=== PATIENT | female | born 1975 | race Caucasian/White ===

== ENCOUNTER 2016-12-26 18:06 | Outpatient (CLI) | payer MEDICAID | END 2016-12-26 18:07 | disposition short-term general hospital (02) | LOC: EMS 18:06 | PROVIDERS: ATTEND Surgery | DX: R11.2 Nausea with vomiting, unspecified (principal); R10.10 Upper abdominal pain, unspecified | CPT/HCPCS: A0425; A0427; A0888 ==

== ENCOUNTER 2017-04-16 08:39 | Outpatient (CLI) | payer MEDICAID | END 2017-04-16 08:40 | disposition short-term general hospital (02) | LOC: EMS 08:39 | PROVIDERS: ATTEND Surgery | DX: R10.9 Unspecified abdominal pain (principal); R11.2 Nausea with vomiting, unspecified | CPT/HCPCS: A0425; A0427 ==

== ENCOUNTER 2018-06-25 07:15 | Emergency (ER) | payer MEDICAID, OTHER ==
[2018-06-25] MEDS ORDERED: ONDANSETRON 4 MG/2 ML VIAL IVP STA (08:00)
[2018-06-25] MEDS ORDERED: HYDROmorphone 1 MG/ML CARPUJECT IVP STA (08:00)
[2018-06-25] MEDS ORDERED: LORazepam 2 MG/ML VIAL IVP STA (08:00)
[2018-06-25] MEDS ORDERED: SODIUM CHLORIDE 0.9% 1,000 ML IV ONE ×2 (08:00→11:31)
--- NOTE | 2018-06-25 08:03 | ED Physician Documentation ---
PD HPI NVD - Stated complaint Stated Complaint: NAUSEA/VOMITING - Chief complaint Chief Complaint: Abd Pain - History obtained from History obtained from: Patient - History of Present Illness Timing - onset: How many days ago (4) Timing - duration: Days (4) Timing - details: Gradual onset, Still present Associated symptoms: Abdominal pain, Loss of appetite Contributing factors: Other (history of cyclical vomiting) Improved by: Vomiting Similar symptoms before: Diagnosis (cyclical vomiting) Recently seen: Emergency Dept (at [facility] 3 days ago) - Additonal information Additional information: 42-year-old female with a 20-year history of cyclical vomiting has developed a cyclical vomiting episode beginning about a week ago. She states that she was seen at [facility] 3 days ago despite treatment there she has continued vomiting and abdominal pain. She states that she has been diagnosed with cyclical vomiting and she has been through a number of different treatments throughout the years and is usually at the [facility] of the emergency department. She states that for her what works best is Ativan Dilaudid and Zofran and she has been tried on a lot of different regimens. She has been seen at [facility] by GI specialist with a diagnosis of cyclical vomiting. She does state that she uses cannabis and that she gets in the shower frequently and that the diagnosis of cannabis hyperemesis has been examined she has been off of cannabis for 3 years with worsening of her symptoms. She continues to use cannabis now. Review of Systems Constitutional: reports: Fatigue. denies: Fever, Chills, Myalgias Eyes: denies: Decreased vision Ears: denies: Ear pain Nose: denies: Rhinorrhea / runny nose, Congestion Throat: denies: Sore throat Cardiac: denies: Chest pain / pressure, Palpitations Respiratory: denies: Dyspnea, Cough GI: reports: Abdominal Pain, Nausea, Vomiting : denies: Dysuria, Frequency Skin: denies: Rash Musculoskeletal: denies: Neck pain, Back pain, Extremity pain Neurologic: denies: Generalized weakness, Focal weakness, Numbness PD PAST MEDICAL HISTORY - Past Medical History GI: Other Other Past Medical History: vomiting - Past Surgical History Past Surgical History: Yes General: Cholecystectomy, Appendectomy - Present Medications Home Medications: Ambulatory Orders Medication Instructions Recorded Confirmed Oxycodone HCl/Acetaminophen 1 - 2 each PO Q6H PRN #20 tablet 05/23/14 [Percocet 5-325 mg Tablet] RX: predniSONE [Deltasone] 40 mg PO DAILY 5 Days tablet 05/23/14 diazePAM [Valium] 5 - 10 mg PO TID #15 tablet 05/23/14 - Allergies Allergies/Adverse Reactions: Allergies Allergy/AdvReac Type Severity Reaction Status Date / Time metoclopramide HCl * Allergy Rash Verified 06/25/18 07:34 [From Reglan] - Social History Does the pt smoke?: Yes Smoking Status: Current every day smoker Does the pt have substance abuse?: No Substance Use and Type: Marijuana PD ED PE NORMAL - Vitals Vital signs reviewed: Yes (hypertensive) - General General: Alert and oriented X 3, Well developed/nourished, Other (crying and emotional ) - HEENT HEENT: Atraumatic, PERRL, EOMI - Neck Neck: Supple, no meningeal sign, No bony TTP - Cardiac Cardiac: RRR, No murmur - Respiratory Respiratory: No respiratory distress, Clear bilaterally - Abdomen Abdomen: Soft, Other (mild familia-umbilical tenderness without garding ) - Back Back: No CVA TTP, No spinal TTP - Derm Derm: Normal color, Warm and dry, No rash - Extremities Extremities: No deformity, No edema - Neuro Neuro: Alert and oriented X 3, alternative education teacher 2-12 intact, No motor deficit, No sensory deficit, Normal speech Eye Opening: Spontaneous Motor: Obeys Commands Verbal: Oriented GCS Score: 15 - Psych Psych: Other (mood is frustrated and the affect is sad) Results - Vitals Vitals: Vital Signs - 24 hr 06/25/18 06/25/18 06/25/18 07:30 12:09 12:56 Temperature 37.3 C Heart Rate 75 59 L 59 L Respiratory 16 16 16 Rate Blood Pressure 163/90 H 133/95 H 113/82 H O2 Saturation 100 100 99 Oxygen O2 Source Room air - Labs Labs: Laboratory Tests 06/25/18 06/25/18 06/25/18 08:30 08:30 10:31 WBC 10.8 RBC 4.43 Hgb 14.1 Hct 40.8 MCV 92.1 MCH 31.9 H MCHC 34.6 RDW 12.8 Plt Count 214 MPV 8.4 Neut # (Auto) 8.1 H Lymph # (Auto) 1.8 [place] # (Auto) 0.7 Eos # (Auto) 0.1 Baso # (Auto) 0.1 Absolute Nucleated RBC 0.01 Nucleated RBC % 0.1 Sodium 136 Potassium 3.1 L Chloride 94 L Carbon Dioxide 31 Anion Gap 11.0 BUN 24 H Creatinine 0.9 Estimated GFR (MDRD) 68 L Glucose 115 H Calcium 9.5 Total Bilirubin 1.5 H AST 19 ALT 17 Alkaline Phosphatase 53 Total Protein 8.2 Albumin 4.9 Globulin 3.3 Albumin/Globulin Ratio 1.5 Lipase 33 Urine Color DARK YELLOW Urine Clarity CLEAR Urine pH 5.5 Ur Specific [place] >=1.030 H Urine Protein TRACE Urine Glucose (UA) NEGATIVE Urine Ketones NEGATIVE Urine Occult Blood TRACE-LYSE Urine Nitrite NEGATIVE Urine Bilirubin NEGATIVE Urine Urobilinogen 0.2 (NORMAL) Ur Leukocyte Esterase NEGATIVE Ur Microscopic Review NOT INDICATED Urine Culture Comments NOT INDICATED Urine HCG, Qual NEGATIVE Procedures - IVC sono (time) 0845 Bedside IVC sono: IVC measures (cm) (2.01), IVC collapsed c insp (cm) (complete), Dehydration (minimal est <.5 liter deficit) PD MEDICAL DECISION MAKING - ED course Complexity details: considered differential, d/w patient, d/w family ED course: 42-year-old female with a history of cyclical vomiting has a cycle of vomiting now she was given fluids at [facility] 3 days ago and today we are unable to establish a running IV. Her IVC is interrogated with the bedside ultrasound and her volume appears near normal. She is administered medications IM. This provides some improvement but the patient fails a fluid challenge and more effort is put into the IV start and the patient is administered IV saline, decadron, compazine, toradal and benadryl with improvement in her symptoms. Departure - Departure Disposition: 01 Home, Self Care Clinical Impression: Cyclical vomiting Condition: Stable Instructions: ED Diet Vomiting Diarrhea Follow-Up: Your, doctor [Other] Discharge Date/Time: 06/25/18 12:59
[2018-06-25 08:39] LABS: BASOPHILS # (AUTO) 0.1 10^3/uL (0.0-0.1); BASOPHILS % (AUTO) 0.8 %; EOSINOPHILS # (AUTO) 0.1 10^3/uL (0.0-0.7); EOSINOPHILS % (AUTO) 0.9 %; HGB - HEMOGLOBIN 14.1 g/dL (12.0-16.0); LYMPHOCYTES # (AUTO) 1.8 10^3/uL (1.5-3.5); LYMPHOCYTES % (AUTO) 16.6 %; MEAN CORPUSCULAR HEMOGLOBIN 31.9 pg (27.0-31.0); MEAN CORPUSCULAR HGB CONC 34.6 g/dL (32.0-36.0); MEAN CORPUSCULAR VOLUME 92.1 fL (81.0-99.0); MEAN PLATELET VOLUME 8.4 fL (7.9-10.8); MONOCYTES # (AUTO) 0.7 10^3/uL (0.0-1.0); MONOCYTES % (AUTO) 6.7 %; NEUTROPHILS # (AUTO) 8.1 10^3/uL (1.5-6.6); PLT - PLATELET COUNT 214 10^3/uL (130-450); RED BLOOD COUNT 4.43 10^6/uL (4.20-5.40); RED CELL DISTRIBUTION WIDTH 12.8 % (12.0-15.0); WHITE BLOOD COUNT 10.8 x10^3/uL (4.8-10.8)
[2018-06-25 08:49] LABS: ALBUMIN 4.9 g/dL (3.2-5.5); ALBUMIN/GLOBULIN RATIO 1.5 (1.0-2.2); BILIRUBIN,TOTAL 1.5 mg/dL (0.2-1.0); CALCIUM 9.5 mg/dL (8.5-10.3); CREATININE 0.9 mg/dL (0.4-1.0); TOTAL PROTEIN 8.2 g/dL (6.7-8.2)
[2018-06-25] MEDS ORDERED: HYDROmorphone 1 MG/ML CARPUJECT IM STA (08:49)
[2018-06-25] MEDS ORDERED: LORazepam 2 MG/ML VIAL IM STA (08:49)
[2018-06-25] MEDS ORDERED: ONDANSETRON ODT 4 MG TABLET TL STA (08:49)
[2018-06-25 10:42] LABS: BILIRUBIN,URINE NEGATIVE (NEGATIVE); GLUCOSE, URINE (UA) NEGATIVE (NEGATIVE); KETONES,URINE (UA) NEGATIVE (NEGATIVE); LEUKOCYTE ESTERASE, URINE NEGATIVE (NEGATIVE); NITRITE,URINE NEGATIVE (NEGATIVE); OCCULT BLOOD,URINE TRACE-LYSE (NEGATIVE); PH,URINE 5.5 PH (5.0-7.5); PROTEIN,URINE TRACE mg/dL (NEGATIVE); UROBILINOGEN,URINE 0.2 (NORMAL) E.U./dL (NORMAL)
[2018-06-25 10:45] LABS: CLARITY,URINE CLEAR (CLEAR)
[2018-06-25 10:46] LABS: HCG UR QUAL NEGATIVE
[2018-06-25] MEDS ORDERED: PROCHLORPERAZINE 10 MG/2 ML VIAL IVP STA (11:31)
[2018-06-25] MEDS ORDERED: DEXAMETHASONE 10 MG/ML VIAL IVP STA (11:31)
[2018-06-25] MEDS ORDERED: diphenhydrAMINE INJ 50 MG/ML VIAL IVP STA (11:31)
[2018-06-25] MEDS ORDERED: KETOROLAC 60 MG/2 ML VIAL IVP STA (11:31)
[2018-06-25 12:57] VITALS: BP 113/82
== END 2018-06-25 12:59 | disposition home or self-care (01) ==
LOC: ED 07:15
DX: G43.A0 Cyclical vomiting, in migraine, not intractable (principal); F17.200 Nicotine dependence, unspecified, uncomplicated; Z72.89 Other problems related to lifestyle
CPT/HCPCS: 36415; 80053; 81003; 81025; 83690; 85025; 96372; 96374; 99283; J1200; J2060; Q0162; 81001; 87086

== ENCOUNTER 2018-09-16 13:43 | Emergency (ER) | payer OTHER ==
[2018-09-16] MEDS ORDERED: LORazepam 2 MG/ML VIAL IVP STA (15:35)
[2018-09-16] MEDS ORDERED: SODIUM CHLORIDE 0.9% 1,000 ML IV ONE (15:35)
[2018-09-16] MEDS ORDERED: ONDANSETRON 4 MG/2 ML VIAL IVP STA (15:35)
[2018-09-16] MEDS ORDERED: HYDROmorphone 1 MG/ML CARPUJECT IVP STA (15:35)
--- NOTE | 2018-09-16 15:37 | ED Physician Documentation ---
PD HPI NVD - Stated complaint Stated Complaint: ABD PX/VOMITING - Chief complaint Chief Complaint: Abd Pain - History obtained from History obtained from: Patient, Family - History of Present Illness Timing - onset: How many days ago (5) Timing - duration: Days Timing - details: Gradual onset, Still present, Waxing and waning Associated symptoms: Abdominal pain, Loss of appetite Improved by: Laying still, Vomiting Worsened by: Moving, Breathing, Position, Palpation Similar symptoms before: Diagnosis (cyclical vomiting syndrome) Recently seen: Clinic - Additonal information Additional information: 33-year-old female with a history of cyclical vomiting has developed symptoms again over the past 5 days with vomiting abdominal pain she has had waxing and waning of her symptoms over the last 5 days and she was asked by her primary care doctor to come into the emergency department today for persistence of her symptoms. Review of Systems Constitutional: denies: Fever Eyes: denies: Decreased vision Ears: denies: Ear pain Nose: reports: Congestion. denies: Rhinorrhea / runny nose Throat: denies: Sore throat Cardiac: reports: Chest pain / pressure. denies: Palpitations Respiratory: denies: Dyspnea, Cough GI: reports: Abdominal Pain, Nausea, Vomiting : denies: Dysuria, Frequency Skin: denies: Rash Musculoskeletal: denies: Neck pain, Back pain, Extremity pain Neurologic: reports: Headache. 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 HEENT: None Psych: None Musculoskeletal: None Derm: None - Past Surgical History Past Surgical History: Yes General: Cholecystectomy, Appendectomy - Present Medications Home Medications: Ambulatory Orders Medication Instructions Recorded Confirmed Ondansetron Odt [Zofran Odt] 09/16/18 Promethazine Supp [Phenergan Supp] 09/16/18 Promethazine Supp [Phenergan Supp] 25 mg MO Q6HR PRN #10 supp 09/16/18 - Allergies Allergies/Adverse Reactions: Allergies Allergy/AdvReac Type Severity Reaction Status Date / Time metoclopramide HCl * Allergy Rash Verified 09/16/18 13:58 [From Reglan] - Social History Does the pt smoke?: Yes Smoking Status: Current every day smoker Does the pt drink ETOH?: Yes ETOH Use: Wine, Beer, Liquor Does the pt have substance abuse?: No Substance Use and Type: Marijuana - Immunizations Immunizations are current?: Yes - POLST Patient has POLST: No PD ED PE NORMAL - Vitals Vital signs reviewed: Yes (hypertensive ) - General General: Alert and oriented X 3, Well developed/nourished, Other (crying in pain clutching her head. ) - HEENT HEENT: Atraumatic, PERRL, EOMI, Other (dry mucous membranes ) - Neck Neck: Supple, no meningeal sign, No bony TTP - Cardiac Cardiac: RRR, No murmur - Respiratory Respiratory: No respiratory distress, Clear bilaterally - Abdomen Abdomen: Soft, Other (mild epigstric tenderness without garding) - Back Back: No CVA TTP, No spinal TTP - Derm Derm: Normal color, Warm and dry, No rash - Extremities Extremities: No deformity, No edema - Neuro Neuro: Alert and oriented X 3, vehicle check in clerk 2-12 intact, No motor deficit, No sensory deficit, Normal speech Eye Opening: Spontaneous Motor: Obeys Commands Verbal: Oriented GCS Score: 15 - Psych Psych: Other (mood is defeated and affect is sad) Results - Vitals Vitals: Vital Signs - 24 hr 09/16/18 09/16/18 13:52 17:11 Temperature 36.6 C 36.4 C L Heart Rate 82 73 Respiratory 18 20 Rate Blood Pressure 120/87 H 124/90 H O2 Saturation 100 95 Oxygen O2 Source Room air - Labs Labs: Laboratory Tests 09/16/18 09/16/18 15:49 15:49 WBC 8.1 RBC 4.93 Hgb 15.7 Hct 47.5 H MCV 96.3 MCH 31.8 H MCHC 33.0 RDW 12.9 Plt Count 241 MPV 8.3 Neut # (Auto) 5.6 Lymph # (Auto) 1.8 [place] # (Auto) 0.5 Eos # (Auto) 0.1 Baso # (Auto) 0.0 Absolute Nucleated RBC 0.00 Nucleated RBC % 0.1 Sodium 135 Potassium 3.2 L Chloride 92 L Carbon Dioxide 30 Anion Gap 13.0 BUN 20 Creatinine 0.7 Estimated GFR (MDRD) 90 Glucose 109 H Calcium 9.7 Total Bilirubin 1.6 H AST 17 ALT 13 Alkaline Phosphatase 51 Total Protein 8.5 H Albumin 4.9 Globulin 3.6 Albumin/Globulin Ratio 1.4 Lipase 33 PD MEDICAL DECISION MAKING - ED course Complexity details: considered differential, d/w patient ED course: 43-year-old female with a history of cyclic vomiting is administered saline Dilaudid and Ativan and Zofran. She is administered potassium bicarb for a pot assium of 3.2. She has improvement and is discharged to home. Departure - Departure Disposition: Home, Self Care Clinical Impression: Cyclical vomiting Qualifiers: Vomiting Intractability: non-intractable Nausea presence: with nausea Qualified Code(s): G43.A0 - Cyclical vomiting, not intractable Instructions: ED Nausea Vomiting Follow-Up: Sergo Martino MD [Primary Care Provider] - Prescriptions: Promethazine Supp [Phenergan Supp] 25 mg MO Q6HR PRN #10 supp PRN Reason: Nausea / Vomiting
[2018-09-16 15:54] LABS: BASOPHILS % (AUTO) 0.4 %; EOSINOPHILS # (AUTO) 0.1 10^3/uL (0.0-0.7); EOSINOPHILS % (AUTO) 1.1 %; HGB - HEMOGLOBIN 15.7 g/dL (12.0-16.0); LYMPHOCYTES # (AUTO) 1.8 10^3/uL (1.5-3.5); LYMPHOCYTES % (AUTO) 22.7 %; MEAN CORPUSCULAR HEMOGLOBIN 31.8 pg (27.0-31.0); MEAN CORPUSCULAR VOLUME 96.3 fL (81.0-99.0); MEAN PLATELET VOLUME 8.3 fL (7.9-10.8); MONOCYTES # (AUTO) 0.5 10^3/uL (0.0-1.0); MONOCYTES % (AUTO) 6.7 %; NEUTROPHILS # (AUTO) 5.6 10^3/uL (1.5-6.6); NEUTROPHILS % (AUTO) 69.1 %; PLT - PLATELET COUNT 241 10^3/uL (130-450); RED BLOOD COUNT 4.93 10^6/uL (4.20-5.40); RED CELL DISTRIBUTION WIDTH 12.9 % (12.0-15.0); WHITE BLOOD COUNT 8.1 x10^3/uL (4.8-10.8)
[2018-09-16 16:06] LABS: ALBUMIN 4.9 g/dL (3.2-5.5); ALBUMIN/GLOBULIN RATIO 1.4 (1.0-2.2); BILIRUBIN,TOTAL 1.6 mg/dL (0.2-1.0); CALCIUM 9.7 mg/dL (8.5-10.3); CREATININE 0.7 mg/dL (0.4-1.0); TOTAL PROTEIN 8.5 g/dL (6.7-8.2)
[2018-09-16] MEDS ORDERED: POTASSIUM BICARB 25 MEQ TABLET PO STA (17:06)
[2018-09-16 19:11] VITALS: BP 112/94
== END 2018-09-16 19:23 | disposition home or self-care (01) ==
LOC: ED 13:43
DX: G43.A0 Cyclical vomiting, in migraine, not intractable (principal)
CPT/HCPCS: 36415; 80053; 83690; 85025; 96361; 96374; 99283; A9270; J1170; J2060

== ENCOUNTER 2019-03-04 21:51 | Emergency (ER) | payer OTHER ==
[2019-03-04] MEDS ORDERED: PROCHLORPERAZINE 10 MG/2 ML VIAL IVP STA (22:12)
[2019-03-04] MEDS ORDERED: DEXAMETHASONE 10 MG/ML VIAL IVP STA (22:12)
[2019-03-04] MEDS ORDERED: SODIUM CHLORIDE 0.9% 1,000 ML IV ONE ×2 (22:12→23:41)
[2019-03-04] MEDS ORDERED: KETOROLAC 30 MG/ML VIAL IVP STA (22:12)
[2019-03-04] MEDS ORDERED: diphenhydrAMINE INJ 50 MG/ML VIAL IVP STA (22:12)
--- NOTE | 2019-03-04 22:14 | ED Physician Documentation ---
PD HPI NVD - Stated complaint Stated Complaint: VOMITING - Chief complaint Chief Complaint: Abd Pain - History obtained from History obtained from: Patient, Family - History of Present Illness Timing - onset: Today Timing - duration: Hours Timing - details: Abrupt onset, Still present Associated symptoms: Abdominal pain, Loss of appetite Improved by: Meds Similar symptoms before: Diagnosis (cyclical vomiting) Recently seen: Clinic - Additonal information Additional information: 43-year-old female with a history of cyclical vomiting has usually been able to arrest her episodes with Imitrex. Today she was unable to arrest the episode as she did not get to it in time. She has been trying some Phenergan suppositories and this has not helped. She has been having issues all day long and she has come to the emergency department now for treatment. 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 HEENT: None Psych: None Musculoskeletal: None Derm: None - Past Surgical History Past Surgical History: Yes General: Cholecystectomy, Appendectomy - Present Medications Home Medications: Ambulatory Orders Medication Instructions Recorded Confirmed Ondansetron Odt [Zofran Odt] 09/16/18 Ondansetron Odt [Zofran] 4 mg TL Q6H PRN #10 tablet 09/16/18 Promethazine Supp [Phenergan Supp] 09/16/18 Promethazine Supp [Phenergan Supp] 25 mg HI Q6HR PRN #10 supp 09/16/18 - Allergies Allergies/Adverse Reactions: Allergies Allergy/AdvReac Type Severity Reaction Status Date / Time metoclopramide HCl * Allergy Rash Verified 03/04/19 22:08 [From Reglan] - Social History Does the pt smoke?: Yes Smoking Status: Current every day smoker Does the pt drink ETOH?: Yes Does the pt have substance abuse?: No - Immunizations Immunizations are current?: Yes - POLST Patient has POLST: No PD ED PE NORMAL - Vitals Vital signs reviewed: Yes (diastolic hypertension ) - General General: Alert and oriented X 3, Other (Thin female writhing in pain moaning and crying wretching loudly ) - HEENT HEENT: Atraumatic, PERRL, EOMI - Neck Neck: Supple, no meningeal sign, No bony TTP - Cardiac Cardiac: RRR, No murmur - Respiratory Respiratory: No respiratory distress, Clear bilaterally - Abdomen Abdomen: Soft, Other (mild epigastric tenderness without gaurding ) - Back Back: No CVA TTP, No spinal TTP - Derm Derm: Normal color, Warm and dry, No rash - Extremities Extremities: No deformity, No edema - Neuro Neuro: Alert and oriented X 3, polo coach 2-12 intact, No motor deficit, No sensory deficit, Normal speech Eye Opening: Spontaneous Motor: Obeys Commands Verbal: Oriented GCS Score: 15 - Psych Psych: Other (mood is defeated and the affect is crying ) Results - Vitals Vitals: Vital Signs - 24 hr 03/04/19 03/04/19 03/05/19 21:57 23:37 00:14 Temperature 36.9 C Heart Rate 95 74 75 Respiratory 19 12 Rate Blood Pressure 100/85 H 83/46 L O2 Saturation 100 94 95 03/05/19 01:36 Temperature Heart Rate 73 Respiratory 13 Rate Blood Pressure 97/61 O2 Saturation 94 Oxygen O2 Source Room air PD MEDICAL DECISION MAKING - ED course Complexity details: reviewed results, re-evaluated patient, considered differential, d/w patient, d/w family ED course: 43-year-old female with abdominal migraine cyclical vomiting has not had relief with sumatriptan and today which she took late in the course. She has not had relief with Phenergan she is taken 75 mg rectally. She comes into the emergency department retching and in pain. She is initially administered a cocktail of Compazine Benadryl Toradol dexamethasone and saline she has only mild improvement. She continues to have pain. She is administered in intravenous Ativan and Dilaudid. She has had luck with both of these protocols previously and she is somewhat improved and very sleepy and her significant other says that she usually does well if she is able to sleep this off.We will try discharging the patient home now. Departure - Departure Disposition: Home, Self Care Clinical Impression: Cyclical vomiting Condition: Stable Instructions: ED Nausea Vomiting Follow-Up: Sergo Martino MD [Primary Care Provider] - Discharge Date/Time: 03/05/19 01:50
[2019-03-04] MEDS ORDERED: HYDROmorphone 1 MG/ML CARPUJECT IVP STA (23:08)
[2019-03-04] MEDS ORDERED: LORazepam 2 MG/ML VIAL IVP STA (23:09)
[2019-03-05 01:37] VITALS: BP 97/61
== END 2019-03-05 01:50 | disposition home or self-care (01) ==
LOC: ED 21:51
DX: G43.A0 Cyclical vomiting, in migraine, not intractable (principal); F17.200 Nicotine dependence, unspecified, uncomplicated
CPT/HCPCS: 96361; 96374; 96375; 99283; 99284; J1170; J1200; J2060

== ENCOUNTER 2019-03-06 06:59 | Observation (INO) | payer OTHER ==
[2019-03-06] MEDS ORDERED: SODIUM CHLORIDE 0.9% 1,000 ML IV ONE (07:09)
[2019-03-06] MEDS ORDERED: PROMETHAZINE INJ 12.5 MG in SODIUM CHLORIDE 0.9% 50 ML IV STA (07:10)
[2019-03-06] MEDS ORDERED: LORazepam 2 MG/ML VIAL IVP STA (07:10)
--- NOTE | 2019-03-06 07:32 | ED Physician Documentation ---
PD HPI ABD PAIN - Stated complaint Stated Complaint: VOMITING - Chief complaint Chief Complaint: Abd Pain - History obtained from History obtained from: Patient, Family (Partner) - History of Present Illness Timing - onset: How many days ago (3) Timing - duration: Days (3) Timing - details: Still present Quality: Pain Location: All over / everywhere Associated symptoms: Nausea, Vomiting Similar symptoms before: Diagnosis (Cyclic vomiting syndrome) Recently seen: Emergency Dept (2 days ago) - Treatment prior to arrival Treatment prior to arrival: Phenergan supp. and Zofran SL. - Additional information Additional information: The patient is a 43-year-old female with a 20-year history of cyclic vomiting syndrome, who presents with abdominal pain and vomiting that this time started 3 days ago. Her abdominal pain is diffuse. She denies fever, diarrhea, or dysuria. She denies cough or shortness of breath. She was seen in the emergency department 2 days ago with similar symptoms and got temporary improvement after administration of saline, Compazine, Benadryl, dexamethasone, Toradol, Ativan, and Dilaudid. Dr. Sergo Martino called prior to the patient's arrival this morning and advised that he thinks the patient may need hospitalization. Review of Systems Constitutional: denies: Fever Ears: denies: Tinnitus/ringing Nose: denies: Congestion Throat: denies: Sore throat Cardiac: denies: Chest pain / pressure Respiratory: denies: Dyspnea, Cough GI: reports: Abdominal Pain, Nausea, Vomiting. 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 HEENT: None Psych: None Musculoskeletal: None Derm: None - Past Surgical History Past Surgical History: Yes General: Cholecystectomy, Appendectomy - Present Medications Home Medications: Ambulatory Orders Medication Instructions Recorded Confirmed Ondansetron Odt [Zofran] 4 mg TL Q6H PRN #10 tablet 09/16/18 03/06/19 Promethazine Supp [Phenergan Supp] 25 mg TN Q6HR PRN #10 supp 09/16/18 03/06/19 LORazepam [Lorazepam] 0.5 - 1 mg PO TID PRN 03/06/19 03/06/19 - Allergies Allergies/Adverse Reactions: Allergies Allergy/AdvReac Type Severity Reaction Status Date / Time metoclopramide HCl * Allergy Rash Verified 03/04/19 22:08 [From Roque] - Living Situation Living Situation: reports: With spouse/s.o. - Social History Does the pt smoke?: Yes Smoking Status: Current every day smoker Does the pt drink ETOH?: Yes Does the pt have substance abuse?: No - Immunizations Immunizations are current?: Yes - POLST Patient has POLST: No PD ED PE NORMAL - Vitals Vital signs reviewed: Yes (Normal) - General General: Alert and oriented X 3, Well developed/nourished, Other (Crying in apparent discomfort.) - HEENT HEENT: Atraumatic, Pharynx benign, Other (Dry oral mucosa.) - Neck Neck: Supple, no meningeal sign, No adenopathy - Cardiac Cardiac: RRR - Respiratory Respiratory: No respiratory distress, Clear bilaterally - Abdomen Abdomen: Other (Diminished bowel tones; soft, diffuse mild tenderness to palpation, without rebound or guarding.) - Back Back: No CVA TTP - Derm Derm: No rash - Extremities Extremities: No edema, No calf tenderness / cord - Neuro Neuro: Alert and oriented X 3, No motor deficit, Normal speech Results - Vitals Vitals: Vital Signs - 24 hr 03/06/19 03/06/19 07:09 08:47 Temperature 37.1 C Heart Rate 63 62 Respiratory 18 18 Rate Blood Pressure 126/70 105/69 O2 Saturation 99 98 Oxygen O2 Source Room air - Labs Labs: Laboratory Tests 03/06/19 03/06/19 03/06/19 08:10 08:10 10:02 WBC 9.3 RBC 4.40 Hgb 14.2 Hct 42.6 MCV 96.8 MCH 32.3 H MCHC 33.3 RDW 12.8 Plt Count 202 MPV 10.2 Neut # (Auto) 6.9 H Lymph # (Auto) 1.6 [place] # (Auto) 0.8 Eos # (Auto) 0.0 Baso # (Auto) 0.0 Absolute Nucleated RBC 0.00 Nucleated RBC % 0.0 Sodium 141 Potassium 2.9 L Chloride 95 L Carbon Dioxide 32 Anion Gap 14.0 H BUN 21 H Creatinine 0.9 Estimated GFR (MDRD) 68 L Glucose 124 H Calcium 9.8 Total Bilirubin 2.0 H AST 19 ALT 17 Alkaline Phosphatase 45 Total Protein 8.4 H Albumin 4.5 Globulin 3.9 Albumin/Globulin Ratio 1.2 Lipase 32 Urine Color DARK YELLOW Urine Clarity CLEAR Urine pH 6.5 Ur Specific [place] 1.025 Urine Protein 100 H Urine Glucose (UA) NEGATIVE Urine Ketones NEGATIVE Urine Occult Blood TRACE-INTA Urine Nitrite NEGATIVE Urine Bilirubin NEGATIVE Urine Urobilinogen 1 (NORMAL) Ur Leukocyte Esterase NEGATIVE Urine RBC 0-5 Urine WBC 0-3 Ur Squamous Epith Cells MOD Squamous H Urine Bacteria Rare Urine Casts 3-5 Hyaline Casts Urine Mucus Few Strands Ur Microscopic Review INDICATED Urine Culture Comments NOT INDICATED Urine HCG, Qual NEGATIVE Urine Opiates Screen Ur Oxycodone Screen Urine Methadone Screen Ur Propoxyphene Screen Ur Barbiturates Screen Ur Tricyclics Screen Ur Phencyclidine Scrn Ur Amphetamine Screen U Methamphetamines Scrn U Benzodiazepines Scrn Urine Cocaine Screen U Cannabinoids Screen 03/06/19 10:03 WBC RBC Hgb Hct MCV MCH MCHC RDW Plt Count MPV Neut # (Auto) Lymph # (Auto) [place] # (Auto) Eos # (Auto) Baso # (Auto) Absolute Nucleated RBC Nucleated RBC % Sodium Potassium Chloride Carbon Dioxide Anion Gap BUN Creatinine Estimated GFR (MDRD) Glucose Calcium Total Bilirubin AST ALT Alkaline Phosphatase Total Protein Albumin Globulin Albumin/Globulin Ratio Lipase Urine Color Urine Clarity Urine pH Ur Specific [place] Urine Protein Urine Glucose (UA) Urine Ketones Urine Occult Blood Urine Nitrite Urine Bilirubin Urine Urobilinogen Ur Leukocyte Esterase Urine RBC Urine WBC Ur Squamous Epith Cells Urine Bacteria Urine Casts Urine Mucus Ur Microscopic Review Urine Culture Comments Urine HCG, Qual Urine Opiates Screen POSITIVE H Ur Oxycodone Screen NEGATIVE Urine Methadone Screen NEGATIVE Ur Propoxyphene Screen NEGATIVE Ur Barbiturates Screen NEGATIVE Ur Tricyclics Screen NEGATIVE Ur Phencyclidine Scrn NEGATIVE Ur Amphetamine Screen NEGATIVE U Methamphetamines Scrn NEGATIVE U Benzodiazepines Scrn POSITIVE H Urine Cocaine Screen NEGATIVE U Cannabinoids Screen POSITIVE H PD MEDICAL DECISION MAKING - ED course Complexity details: reviewed old records, reviewed results, re-evaluated patient, considered differential, d/w patient, d/w family, d/w peoplesoft consultant ED course: The patient's presentation is significant for cyclic vomiting syndrome with persistent abdominal pain and nausea despite treatment in the emergency department. Her symptoms have been ongoing for the past 3 days with a slight reprieve after treatment in the emergency department 2 days ago. Her lab results are unremarkable except for a low potassium of 2.9. Because of inability to obtain IV access in an upper extremity, I established IV access in the left external jugular vein. Treatment in the emergency department included administration of normal saline 1 L IV, Phenergan 12.5 mg IV followed by Zofran 4 mg IV, ketorolac 30 mg IV, Ativan 0.5 mg IV, and Dilaudid 2 mg IV x2. Potassium 10 mEq was administered IV and 20 mEq orally. The patient symptoms continued despite the above treatment. I discussed her condition with Dr. Kimball, who accepts her for further evaluation and treatment. Departure - Departure Disposition: ED Place in Observation Clinical Impression: Hypokalemia Cyclical vomiting Qualifiers: Vomiting Intractability: intractable Nausea presence: with nausea Qualified Code(s): G43.A1 - Cyclical vomiting, intractable Condition: Stable Discharge Date/Time: 03/06/19 12:31
[2019-03-06] MEDS ORDERED: KETOROLAC 30 MG/ML VIAL IVP STA (07:56)
[2019-03-06] MEDS ORDERED: HYDROmorphone 1 MG/ML CARPUJECT IVP STA ×2 (07:56→11:12)
[2019-03-06 08:17] LABS: BASOPHILS % (AUTO) 0.3 %; EOSINOPHILS % (AUTO) 0.2 %; HGB - HEMOGLOBIN 14.2 g/dL (12.0-16.0); LYMPHOCYTES # (AUTO) 1.6 10^3/uL (1.5-3.5); LYMPHOCYTES % (AUTO) 16.8 %; MEAN CORPUSCULAR HEMOGLOBIN 32.3 pg (27.0-31.0); MEAN CORPUSCULAR HGB CONC 33.3 g/dL (32.0-36.0); MEAN CORPUSCULAR VOLUME 96.8 fL (81.0-99.0); MEAN PLATELET VOLUME 10.2 fL (7.9-10.8); MONOCYTES # (AUTO) 0.8 10^3/uL (0.0-1.0); MONOCYTES % (AUTO) 8.3 %; NEUTROPHILS # (AUTO) 6.9 10^3/uL (1.5-6.6); NEUTROPHILS % (AUTO) 74.1 %; PLT - PLATELET COUNT 202 10^3/uL (130-450); RED CELL DISTRIBUTION WIDTH 12.8 % (12.0-15.0); WHITE BLOOD COUNT 9.3 x10^3/uL (4.8-10.8)
[2019-03-06 08:31] LABS: ALBUMIN 4.5 g/dL (3.2-5.5); ALBUMIN/GLOBULIN RATIO 1.2 (1.0-2.2); CALCIUM 9.8 mg/dL (8.5-10.3); CREATININE 0.9 mg/dL (0.4-1.0); TOTAL PROTEIN 8.4 g/dL (6.7-8.2)
[2019-03-06] MEDS ORDERED: POTASSIUM CHLOR 10 MEQ/100 ML 10 MEQ/100 ML BAG IV ONE (08:35)
[2019-03-06] MEDS ORDERED: POTASSIUM CHLORIDE 20 MEQ TABLET PO STA (09:53)
[2019-03-06 10:08] LABS: GLUCOSE, URINE (UA) NEGATIVE (NEGATIVE); KETONES,URINE (UA) NEGATIVE (NEGATIVE); LEUKOCYTE ESTERASE, URINE NEGATIVE (NEGATIVE); NITRITE,URINE NEGATIVE (NEGATIVE); OCCULT BLOOD,URINE TRACE-INTA (NEGATIVE); PH,URINE 6.5 PH (5.0-7.5); PROTEIN,URINE 100 mg/dL (NEGATIVE); UROBILINOGEN,URINE 1 (NORMAL) E.U./dL (NORMAL)
[2019-03-06 10:13] LABS: BILIRUBIN,URINE NEGATIVE (NEGATIVE); CLARITY,URINE CLEAR (CLEAR); HCG UR QUAL NEGATIVE; ICTOTEST,URINE NEGATIVE
[2019-03-06 10:21] LABS: BACTERIA,URINE Rare /HPF (None Seen); MUCUS,URINE Few Strands; RBC,URINE 0-5 /HPF (0-5); SQUAMOUS EPITHELIAL CELL,UR MOD Squamous (<= Few)
[2019-03-06 10:22] LABS: CASTS, URINE 3-5 Hyaline Casts /LPF
[2019-03-06] MEDS ORDERED: ONDANSETRON 4 MG/2 ML VIAL IVP STA (11:12)
[2019-03-06] MEDS ORDERED: diphenhydrAMINE INJ 50 MG/ML VIAL IVP PRN (12:35)
[2019-03-06] MEDS ORDERED: ACETAMINOPHEN 1,000 MG/100 ML 100 ML IV PRN (12:36)
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
[2019-03-06] MEDS: SODIUM CHLORIDE FLUSH 0.9% 10 ML SYRINGE IVP PRN ×4 (12:41→18:51)
[2019-03-06] MEDS: DEXAMETHASONE 10 MG/ML VIAL IVP SCH ×2 (13:07→18:51)
[2019-03-06] MEDS: NS W/20 MEQ KCL 1,000 ML IV SCH ×2 (13:08→22:31)
[2019-03-06] MEDS ORDERED: HYDROmorphone PCA 20MG/100ML IV PRN (13:30)
[2019-03-06] MEDS ORDERED: KETOROLAC 30 MG/ML VIAL IVP PRN (14:00)
[2019-03-06] MEDS ORDERED: ONDANSETRON 4 MG/2 ML VIAL IVP PRN (15:16)
[2019-03-06 15:25] LABS: MUDS CUTOFF CONCENTRATIONS CUTOFF CONC BELOW:
[2019-03-06 15:38] LABS: AMPHETAMINE SCREEN,URINE NEGATIVE (NEGATIVE); BENZODIAZEPINES SCREEN, URINE POSITIVE (NEGATIVE); COCAINE SCREEN URINE NEGATIVE (NEGATIVE); METHADONE SCREEN, URINE NEGATIVE (NEGATIVE); METHAMPHETAMINES SCREEN, URINE NEGATIVE (NEGATIVE); OPIATE SCREEN, URINE POSITIVE (NEGATIVE); OXYCODONE SCREEN, URINE NEGATIVE (NEGATIVE); PROPOXYPHENE SCREEN, URINE NEGATIVE (NEGATIVE); TRICYCLIC ANTIDEPRESSANT,URINE NEGATIVE (NEGATIVE)
[2019-03-06] MEDS: SODIUM CHLORIDE FLUSH 0.9% 10 ML SYRINGE IVP SCH (16:38)
[2019-03-06] MEDS: LORazepam 2 MG/ML VIAL IVP PRN (22:27)
[2019-03-07] MEDS: DEXAMETHASONE 10 MG/ML VIAL IVP SCH ×2 (01:42→08:03)
[2019-03-07] MEDS: SODIUM CHLORIDE FLUSH 0.9% 10 ML SYRINGE IVP SCH ×2 (01:43→08:08)
[2019-03-07] MEDS: WINE 187 ML BOTTLE PO SCH ×2 (07:09→09:34)
[2019-03-07] MEDS ORDERED: SUMAtriptan 25 MG TABLET PO PRN (07:43)
[2019-03-07 08:13] VITALS: BP 135/89
[2019-03-07] MEDS: LORazepam 2 MG/ML VIAL IVP PRN (08:19)
[2019-03-07] MEDS ORDERED: POLYETHYLENE GLYCOL 3350 17 GM PACKET PO SCH (09:00)
--- NOTE | 2019-03-07 09:27 | Discharge Plan ---
Discharge Plan Problem Reviewed?: Yes Disposition: Home, Self Care Condition: Good Prescriptions: LORazepam [Lorazepam] 0.5 - 1 mg PO TID PRN #15 tablet PRN Reason: NAUSEA/VOMITING Ondansetron HCl [Zofran] 4 mg PO Q6H PRN #20 tablet PRN Reason: Nausea / Vomiting oxyCODONE [Roxicodone] 5 mg PO Q4-6H PRN #10 tablet PRN Reason: Migraine Sumatriptan [Imitrex] 1 spray KENA Q2H PRN #10 spray MDD 4 SPRAY/24HRS PRN Reason: Migraine Diet: Regular Activity Restrictions: Activity as Tolerated Health Concerns: Abdominal migraine Cyclic vomiting syndrome Intractable nausea and vomiting Marijuana use Plan of Treatment: Use abortive therapy including zofran, imitrex, ativan to prevent worsening of symptoms Eat well balanced meals Get at least 8 hours of sleep Prevent hospital stays/ED visits Care Goals: Prevent further symptoms of migraines, nausea or vomiting Assessment: You were admitted for intractable nausea and vomiting You had a known diagnosis of cyclical vomiting syndrome that caused you to become dehydrated leading to electrolyte abnormalities You were treated with IV medications including diluadid, benadryl, lorazepam, and toradol Your symptoms resolved and you were tolerating a regular meal prior to discharge More medications were sent to the pharmacy to prevent hospital stays Please see your PCP within one week and attempt to stop using inhalants No Smoking: If you smoke, Please STOP! Call for help. Follow-up with: Sergo Martino MD [Primary Care Provider] -
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
== END 2019-03-07 10:45 | disposition home or self-care (01) ==
LOC: ED 06:59 → MS3 11:26
PROVIDERS: ADMIT Nurse Practitioner; ATTEND Nurse Practitioner
DX: G43.A1 Cyclical vomiting, in migraine, intractable (principal); E87.6 Hypokalemia; E86.0 Dehydration; G43.D0 Abdominal migraine, not intractable; F12.280 Cannabis dependence with cannabis-induced anxiety disorder; F17.298 Nicotine dependence, other tobacco product, with other nicotine-induced disorders; I10 Essential (primary) hypertension; F32.9 Major depressive disorder, single episode, unspecified; F43.10 Post-traumatic stress disorder, unspecified; K02.9 Dental caries, unspecified; M54.9 Dorsalgia, unspecified; G89.29 Other chronic pain; Z63.4 Disappearance and death of family member; Z91.19 Patient's noncompliance with other medical treatment and regimen; Z90.49 Acquired absence of other specified parts of digestive tract; Z87.39 Personal history of other diseases of the musculoskeletal system and connective tissue
CPT/HCPCS: 36415; 80053; 81001; 81025; 83690; 85025; 96365; 96366; 96368; 96375; 96376; 99284; 99285; A9270; G0378; J1170; J1200; J2060; J7040; 80306; 81003; 87086

== ENCOUNTER 2019-03-07 20:48 | Emergency (ER) | payer OTHER ==
--- NOTE | 2019-03-07 21:23 | ED Physician Documentation ---
PD HPI NVD - Stated complaint Stated Complaint: VOMITING - Chief complaint Chief Complaint: Abd Pain - History obtained from History obtained from: Patient - History of Present Illness Timing - onset: How many days ago (3) Timing - details: Gradual onset, Waxing and waning Pain level now: 9 Associated symptoms: Abdominal pain. No: Fever Improved by: Other (nothing) Worsened by: Eating, Palpation Similar symptoms before: Diagnosis (cyclical vomiting syndrome) Recently seen: Emergency Dept, Admitted - Additonal information Additional information: T+R from this ED 03/04 for same symptoms, returned yesterday (03/06) for same and was admitted to [facility]. She was discharged earlier today, was doing well during the day but symptoms returned this evening. She c/o generalized abdominal pain, nausea, vomiting c/w her previous episodes attributed to diagnosis of cyclical vomiting syndrome. she used imitrex and [place] phenergan at home today without relief. s.o. (in ED at bedside) says the pre scription for pain medication that was provided when she was discharged earlier today was not filled yet (sounds like he dropped off the rx but did not go back to the pharmacy in time to pick it up). Review of Systems Constitutional: reports: Reviewed and negative Eyes: reports: Reviewed and negative Ears: reports: Reviewed and negative Nose: reports: Reviewed and negative Throat: reports: Reviewed and negative Cardiac: reports: Reviewed and negative Respiratory: reports: Reviewed and negative GI: reports: Abdominal Pain, Nausea, Vomiting. 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: None : None HEENT: None Psych: None Musculoskeletal: None Derm: None - Past Surgical History Past Surgical History: Yes General: Cholecystectomy, Appendectomy - Present Medications Home Medications: Ambulatory Orders Medication Instructions Recorded Confirmed Ondansetron Odt [Zofran Odt] 4 mg TL Q6H PRN #10 tablet 09/16/18 03/06/19 Promethazine Supp [Phenergan Supp] 25 mg [place] Q6HR PRN #10 supp 09/16/18 03/06/19 LORazepam [Lorazepam] 0.5 - 1 mg PO TID PRN #15 tablet 03/07/19 Ondansetron HCl [Zofran] 4 mg PO Q6H PRN #20 tablet 03/07/19 Sumatriptan [Imitrex] 1 spray KENA Q2H PRN #10 spray MDD 03/07/19 4 SPRAY/24HRS oxyCODONE [Roxicodone] 5 mg PO Q4-6H PRN #10 tablet 03/07/19 - Allergies Allergies/Adverse Reactions: Allergies Allergy/AdvReac Type Severity Reaction Status Date / Time metoclopramide HCl * Allergy Rash Verified 03/07/19 20:53 [From Reglan] - Social History Does the pt smoke?: Yes Smoking Status: Current every day smoker Does the pt drink ETOH?: Yes Does the pt have substance abuse?: No - Immunizations Immunizations are current?: Yes - POLST Patient has POLST: No POLST Status: Full Code PD ED PE NORMAL - Vitals Vital signs reviewed: Yes - General General: Alert and oriented X 3, Well developed/nourished, Other (anxious, tearful, writhing on stretcher at times during H+P) - HEENT HEENT: Other (tacky mucous membranes) - Neck Neck: Supple, no meningeal sign - Cardiac Cardiac: RRR, No murmur - Respiratory Respiratory: No respiratory distress, Clear bilaterally - Abdomen Abdomen: Soft, Non distended, Other (diffusely TTP without rebound ) - Back Back: No CVA TTP - Derm Derm: Normal color, Warm and dry - Extremities Extremities: No edema - Neuro Neuro: Alert and oriented X 3 Results - Vitals Vitals: Vital Signs - 24 hr 03/07/19 03/07/19 03/07/19 20:50 20:53 23:12 Temperature 37.2 C 37.2 C 36.9 C Heart Rate 72 72 51 L Respiratory 22 16 24 Rate Blood Pressure 158/78 H 158/78 H 113/76 O2 Saturation 100 100 98 03/07/19 03/08/19 03/08/19 23:58 01:00 02:32 Temperature Heart Rate 51 L 53 L 56 L Respiratory 18 16 16 Rate Blood Pressure 126/83 H 107/78 110/80 O2 Saturation 96 98 98 Oxygen O2 Source Room air - Labs Labs: Laboratory Tests 03/07/19 03/07/19 21:56 21:56 WBC 11.6 H RBC 4.01 L Hgb 12.9 Hct 40.1 MCV 100.0 H MCH 32.2 H MCHC 32.2 RDW 12.4 Plt Count 190 MPV 10.4 Neut # (Auto) 8.9 H Lymph # (Auto) 1.7 Dougherty # (Auto) 0.9 Eos # (Auto) 0.0 Baso # (Auto) 0.0 Absolute Nucleated RBC 0.00 Nucleated RBC % 0.0 Sodium 142 Potassium 3.3 L Chloride 104 Carbon Dioxide 26 Anion Gap 12.0 BUN 19 Creatinine 0.8 Estimated GFR (MDRD) 78 L Glucose 116 H Calcium 9.0 Total Bilirubin 1.3 H AST 28 ALT 27 Alkaline Phosphatase 37 L Total Protein 6.8 Albumin 3.8 Globulin 3.0 Albumin/Globulin Ratio 1.3 Lipase 32 PD MEDICAL DECISION MAKING - ED course Complexity details: reviewed old records, reviewed results, re-evaluated patient, considered differential, d/w patient ED course: According to the discharge summary from earlier today, prescriptions were provided for zofran, lorazepam, roxicodone, and immitrex nasal spray; as indicated in HPI, these were not picked up today by patient or s.o. After IV fluids, dilaudid, toradol, compazine, and lorazepam, patient slept and was in NAD for remainder of ED stay. She was drowsy and difficult to wake and keep awake; she expressed reluctance regarding discharge home due to concern symptoms would recur. Hospitalist consulted but patient was too drowsy for him to evaluate patient. After over 4 hours in ED, I was able to converse with her and explain that she was appropriate for discharge home. I emphasized the importance of getting the medications that were prescribed yesterday so she can try these for her symptoms should the recur. Departure - Departure Disposition: 01 Home, Self Care Clinical Impression: Abdominal pain Qualifiers: Abdominal location: generalized Qualified Code(s): R10.84 - Generalized abdominal pain Cyclical vomiting Qualifiers: Vomiting Intractability: non-intractable Nausea presence: with nausea Qualified Code(s): G43.A0 - Cyclical vomiting, not intractable Condition: Good Health Concerns: abdominal pain, nausea, vomiting Plan of Treatment: to scrap picker medications that were prescribed yesterday and use these as directed for symptoms Care Goals: symptom control Assessment: see diagnosis Instructions: ED Abdominal Pain Unkn Cause Follow-Up: Sergo Martino MD [Primary Care Provider] - Discharge Date/Time: 03/08/19 02:32
[2019-03-07] MEDS ORDERED: PROCHLORPERAZINE 10 MG/2 ML VIAL IVP STA (21:38)
[2019-03-07] MEDS ORDERED: KETOROLAC 30 MG/ML VIAL IVP STA (21:38)
[2019-03-07] MEDS ORDERED: SODIUM CHLORIDE 0.9% 1,000 ML IV STA (21:38)
[2019-03-07] MEDS ORDERED: LORazepam 2 MG/ML VIAL IVP STA (21:38)
[2019-03-07] MEDS ORDERED: HYDROmorphone 1 MG/ML CARPUJECT IVP STA (21:38)
[2019-03-07 21:59] LABS: BASOPHILS % (AUTO) 0.2 %; EOSINOPHILS % (AUTO) 0.2 %; HGB - HEMOGLOBIN 12.9 g/dL (12.0-16.0); LYMPHOCYTES # (AUTO) 1.7 10^3/uL (1.5-3.5); LYMPHOCYTES % (AUTO) 14.7 %; MEAN CORPUSCULAR HEMOGLOBIN 32.2 pg (27.0-31.0); MEAN CORPUSCULAR HGB CONC 32.2 g/dL (32.0-36.0); MEAN PLATELET VOLUME 10.4 fL (7.9-10.8); MONOCYTES # (AUTO) 0.9 10^3/uL (0.0-1.0); MONOCYTES % (AUTO) 7.8 %; NEUTROPHILS # (AUTO) 8.9 10^3/uL (1.5-6.6); NEUTROPHILS % (AUTO) 76.6 %; PLT - PLATELET COUNT 190 10^3/uL (130-450); RED BLOOD COUNT 4.01 10^6/uL (4.20-5.40); RED CELL DISTRIBUTION WIDTH 12.4 % (12.0-15.0); WHITE BLOOD COUNT 11.6 x10^3/uL (4.8-10.8)
[2019-03-07 22:12] LABS: ALBUMIN 3.8 g/dL (3.2-5.5); ALBUMIN/GLOBULIN RATIO 1.3 (1.0-2.2); BILIRUBIN,TOTAL 1.3 mg/dL (0.2-1.0); CREATININE 0.8 mg/dL (0.4-1.0); TOTAL PROTEIN 6.8 g/dL (6.7-8.2)
[2019-03-08] MEDS ORDERED: ONDANSETRON 4 MG/2 ML VIAL IVP STA (02:20)
[2019-03-08 02:35] VITALS: BP 110/80
== END 2019-03-08 02:32 | disposition home or self-care (01) ==
LOC: ED 20:48
DX: G43.A0 Cyclical vomiting, in migraine, not intractable (principal); R10.84 Generalized abdominal pain; F17.200 Nicotine dependence, unspecified, uncomplicated
CPT/HCPCS: 36415; 80053; 83690; 85025; 96361; 96374; 96375; 99283; 99284; J1170; J2060

== ENCOUNTER 2019-08-16 09:13 | Outpatient (CLI) | payer OTHER ==
--- NOTE | 2019-08-16 11:05 | Ultrasound Report ---
Reason: MYALGIA Procedure Date: 08/16/2019 Accession Number: [id number] / [id number] Procedure: US - Duplex Ext Veins Left CPT Code: Addended Final Report FULL RESULT: EXAM: LEFT LOWER EXTREMITY VENOUS ULTRASOUND EXAM DATE: 08/16/2019 10:45 AM. CLINICAL HISTORY: MYALGIA. Left leg pain, status post left vein stripping 3 months ago per patient. COMPARISON: None. TECHNIQUE: Real-time sonographic vascular imaging was performed by the venetian blind washer through the lower extremity utilizing both color-flow and Doppler spectral analysis. Multiple delivery representative static images were saved for review. FINDINGS: Common Femoral Vein (CFV): Normal. CFV-GSV Junction: Normal. Profunda Femoral Vein (PFV): Normal. Femoral Vein (FV) Prox: Normal. Femoral Vein (FV) Mid: Normal. Femoral Vein (FV) Dist: Normal. Popliteal Vein: Normal. Posterior Tibial Veins: Normal. Peroneal Veins: Normal. Contralateral Side CFV: Normal. Other: None. IMPRESSION: No evidence for deep venous thrombosis. RADIA The call report notification system was initiated by Dr. Augustin Boland at 11:03 AM on 08/16/2019. ADDENDUM: 08/16/19 11:22 The above call report findings were discussed with Dr Martino by Dr. Augustin Boland at 11:22 AM on 08/16/2019.
== END 2019-08-16 09:14 | disposition home or self-care (01) ==
LOC: DI 09:13
PROVIDERS: ATTEND Internal Medicine
DX: M79.18 Myalgia, other site (principal)

== ENCOUNTER 2020-01-20 15:46 | Outpatient (CLI) | payer OTHER ==
--- NOTE | 2020-01-20 16:16 | XRAY Report ---
Reason: RIGHT HAND PAIN Procedure Date: 01/20/2020 Accession Number: [id number] / [id number] Procedure: XR - Hand 3 View RT CPT Code: Final Report FULL RESULT: PROCEDURE: Hand 3 View RT INDICATIONS: RIGHT HAND PAIN TECHNIQUE: 3 views of the hand(s) acquired. COMPARISON: None FINDINGS: Bones: No fractures or dislocations. No suspicious bony lesions. Soft tissues: No suspicious soft tissue calcifications. IMPRESSION: No evidence acute bony abnormality of the right hand. Reviewed by: Shabbir Artis MD on 01/20/2020 4:15 PM PDT Approved by: Shabbir Artis MD on 01/20/2020 4:15 PM PDT Station ID: [id number]
== END 2020-01-20 15:47 | disposition home or self-care (01) ==
LOC: DI 15:46
PROVIDERS: ATTEND Internal Medicine
DX: S60.561A Insect bite (nonvenomous) of right hand, initial encounter (principal); M25.50 Pain in unspecified joint

== ENCOUNTER 2020-01-26 06:57 | Emergency (ER) | payer OTHER ==
[2020-01-26 07:46] LABS: BASOPHILS % (AUTO) 0.4 %; EOSINOPHILS % (AUTO) 0.1 %; LYMPHOCYTES # (AUTO) 1.3 10^3/uL (1.5-3.5); LYMPHOCYTES % (AUTO) 11.5 %; MEAN CORPUSCULAR HEMOGLOBIN 32.7 pg (27.0-31.0); MEAN CORPUSCULAR HGB CONC 34.1 g/dL (32.0-36.0); MEAN PLATELET VOLUME 10.2 fL (7.9-10.8); MONOCYTES # (AUTO) 0.7 10^3/uL (0.0-1.0); MONOCYTES % (AUTO) 5.8 %; NEUTROPHILS # (AUTO) 9.2 10^3/uL (1.5-6.6); NEUTROPHILS % (AUTO) 81.8 %; PLT - PLATELET COUNT 239 10^3/uL (130-450); RED BLOOD COUNT 4.28 10^6/uL (4.20-5.40); WHITE BLOOD COUNT 11.3 x10^3/uL (4.8-10.8)
[2020-01-26] MEDS: ONDANSETRON 4 MG/2 ML VIAL IVP STA (07:49)
[2020-01-26] MEDS: SODIUM CHLORIDE 0.9% 1,000 ML IV STA (07:49)
[2020-01-26] MEDS: HYDROmorphone 1 MG/ML CARPUJECT IVP STA (07:49)
[2020-01-26 07:58] LABS: ALBUMIN 4.9 g/dL (3.2-5.5); ALBUMIN/GLOBULIN RATIO 1.3 (1.0-2.2); ALKALINE PHOSPHATASE 71 IU/L (42-121); ALT ALANINE AMINOTRANSFERASE 23 IU/L (10-60); AST ASPARTATE AMINOTRANSFERASE 22 IU/L (10-42); BILIRUBIN,TOTAL 0.9 mg/dL (0.2-1.0); BUN - BLOOD UREA NITROGEN 17 mg/dL (6-20); CALCIUM 10.3 mg/dL (8.5-10.3); CARBON DIOXIDE - CO2 30 mmol/L (21-32); CHLORIDE 91 mmol/L (101-111); CREATININE 0.9 mg/dL (0.4-1.0); GLUCOSE 128 mg/dL (70-100); LIPASE 44 U/L (22-51); SODIUM 137 mmol/L (135-145); TOTAL PROTEIN 8.8 g/dL (6.7-8.2)
--- NOTE | 2020-01-26 08:43 | ED Physician Documentation ---
PD HPI NVD - Stated complaint Stated Complaint: VOMITING - Chief complaint Chief Complaint: Abd Pain - History obtained from History obtained from: Patient, Family - History of Present Illness Timing - onset: Yesterday Timing - duration: Hours (28) Timing - details: Abrupt onset, Still present Associated symptoms: Abdominal pain Contributing factors: Other (stress induced cyclical vomiting) Improved by: Vomiting Worsened by: Eating, Position, Palpation Similar symptoms before: Diagnosis (cyclical vomiting.) Recently seen: Not recently seen Review of Systems Constitutional: denies: Fever Eyes: denies: Decreased vision Ears: denies: Ear pain Nose: denies: Rhinorrhea / runny nose, Congestion Throat: denies: Sore throat Cardiac: denies: Chest pain / pressure, Palpitations Respiratory: denies: Dyspnea, Cough GI: reports: Abdominal Pain, Nausea, Vomiting : denies: Dysuria, Frequency PD PAST MEDICAL HISTORY - Past Medical History Cardiovascular: None Respiratory: None Neuro: None Endocrine/Autoimmune: None 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 : None HEENT: None Psych: None Musculoskeletal: None Derm: None - Past Surgical History Past Surgical History: Yes General: Cholecystectomy, Appendectomy - Present Medications Home Medications: Ambulatory Orders Medication Instructions Recorded Confirmed Ondansetron Odt [Zofran Odt] 4 mg TL Q6H PRN #10 tablet 09/16/18 01/26/20 Promethazine Supp [Phenergan Supp] 25 mg [place] Q6HR PRN #10 supp 09/16/18 01/26/20 LORazepam [Lorazepam] 0.5 - 1 mg PO TID PRN #15 tablet 03/07/19 01/26/20 Sumatriptan [Imitrex] 1 spray KENA Q2H PRN #10 spray MDD 03/07/19 01/26/20 4 SPRAY/24HRS oxyCODONE [Roxicodone] 5 mg PO Q4-6H PRN #10 tablet 03/07/19 01/26/20 Ondansetron Odt [Zofran] 4 mg TL Q6H PRN #10 tablet 01/26/20 Promethazine Supp [Phenergan Supp] 25 mg [place] Q6HR PRN #12 supp 01/26/20 - Allergies Allergies/Adverse Reactions: Allergies Allergy/AdvReac Type Severity Reaction Status Date / Time metoclopramide HCl * Allergy Rash Verified 03/07/19 20:53 [From Reglan] - Social History Does the pt smoke?: Yes Smoking Status: Current every day smoker Does the pt drink ETOH?: Yes Does the pt have substance abuse?: No - Immunizations Immunizations are current?: Yes - POLST Patient has POLST: No POLST Status: Full Code PD ED PE NORMAL - Vitals Vital signs reviewed: Yes (hypertensive ) - General General: Alert and oriented X 3, Well developed/nourished, Other (whimpering in pain ) - HEENT HEENT: Atraumatic, PERRL, EOMI - Neck Neck: Supple, no meningeal sign, No bony TTP - Cardiac Cardiac: RRR, No murmur - Respiratory Respiratory: No respiratory distress, Clear bilaterally - Abdomen Abdomen: Soft, Other (mild generalized tenderness without garding or rebound tenderness) - Back Back: No CVA TTP, No spinal TTP - Derm Derm: Normal color, Warm and dry, No rash - Extremities Extremities: No deformity, No edema - Neuro Neuro: Alert and oriented X 3, 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, No motor deficit, No sensory deficit, Normal speech Eye Opening: Spontaneous Motor: Obeys Commands Verbal: Oriented GCS Score: 15 - Psych Psych: Other (mood is helpless and the affect is sad) Results - Vitals Vitals: Vital Signs - 24 hr 01/26/20 01/26/20 07:00 07:03 Temperature 37.3 C 36.8 C Heart Rate 74 72 Respiratory 18 16 Rate Blood Pressure 171/109 H 142/88 H O2 Saturation 95 98 Oxygen O2 Source Room air - Labs Labs: Laboratory Tests 01/26/20 01/26/20 07:40 07:40 WBC 11.3 H RBC 4.28 Hgb 14.0 Hct 41.1 MCV 96.0 MCH 32.7 H MCHC 34.1 RDW 13.0 Plt Count 239 MPV 10.2 Neut # (Auto) 9.2 H Lymph # (Auto) 1.3 L [place] # (Auto) 0.7 Eos # (Auto) 0.0 Baso # (Auto) 0.0 Absolute Nucleated RBC 0.00 Nucleated RBC % 0.0 Sodium 137 Potassium 3.2 L Chloride 91 L Carbon Dioxide 30 Anion Gap 16.0 H BUN 17 Creatinine 0.9 Estimated GFR (MDRD) 67 L Glucose 128 H Calcium 10.3 Total Bilirubin 0.9 AST 22 ALT 23 Alkaline Phosphatase 71 Total Protein 8.8 H Albumin 4.9 Globulin 3.9 Albumin/Globulin Ratio 1.3 Lipase 44 Ethyl Alcohol < 5.0 PD MEDICAL DECISION MAKING - ED course Complexity details: reviewed old records, reviewed results, re-evaluated patient, considered differential, d/w patient, d/w family ED course: 44 y/o female with a history of cyclical vomiting arrives with pain and nausea and is administered IV saline, zofran and dilaudid with improvement in symptoms. Departure - Departure Disposition: 01 Home, Self Care Clinical Impression: Cyclical vomiting, Hypokalemia Condition: Stable Instructions: ED Nausea Vomiting, ED Diet High Potassium Follow-Up: Sergo Martino MD [Primary Care Provider] - Prescriptions: Promethazine Supp [Phenergan Supp] 25 mg [place] Q6HR PRN #12 supp PRN Reason: vomiting Ondansetron Odt [Zofran] 4 mg TL Q6H PRN #10 tablet PRN Reason: Nausea / Vomiting
[2020-01-26] MEDS ORDERED: POTASS CIT/CITRIC ACID ORAL 1 EACH PACKET PO STA (09:02)
[2020-01-26] MEDS: POTASSIUM CHLOR 10 MEQ/100 ML 10 MEQ/100 ML BAG IV ONE (09:10)
[2020-01-26] MEDS: POTASSIUM CHLORIDE 20 MEQ TABLET PO STA (09:28)
[2020-01-26 10:10] VITALS: BP 142/86
== END 2020-01-26 10:22 | disposition home or self-care (01) ==
LOC: ED 06:57
DX: R11.15 Cyclical vomiting syndrome unrelated to migraine (principal); E87.6 Hypokalemia; R10.84 Generalized abdominal pain; R03.0 Elevated blood-pressure reading, without diagnosis of hypertension; F17.200 Nicotine dependence, unspecified, uncomplicated
CPT/HCPCS: 36415; 80053; 80320; 83690; 85025; 96361; 96365; 96375; 99284; A9270; J1170

== ENCOUNTER 2020-01-27 06:41 | Emergency (ER) | payer OTHER ==
[2020-01-27 07:21] LABS: BASOPHILS % (AUTO) 0.3 %; EOSINOPHILS % (AUTO) 0.3 %; HGB - HEMOGLOBIN 13.9 g/dL (12.0-16.0); LYMPHOCYTES # (AUTO) 1.6 10^3/uL (1.5-3.5); LYMPHOCYTES % (AUTO) 16.5 %; MEAN CORPUSCULAR HEMOGLOBIN 32.3 pg (27.0-31.0); MEAN CORPUSCULAR VOLUME 97.7 fL (81.0-99.0); MEAN PLATELET VOLUME 10.1 fL (7.9-10.8); MONOCYTES # (AUTO) 0.7 10^3/uL (0.0-1.0); MONOCYTES % (AUTO) 6.8 %; NEUTROPHILS # (AUTO) 7.2 10^3/uL (1.5-6.6); NEUTROPHILS % (AUTO) 75.7 %; PLT - PLATELET COUNT 235 10^3/uL (130-450); RED BLOOD COUNT 4.31 10^6/uL (4.20-5.40); RED CELL DISTRIBUTION WIDTH 12.9 % (12.0-15.0); WHITE BLOOD COUNT 9.5 x10^3/uL (4.8-10.8)
[2020-01-27 07:31] LABS: ALBUMIN 4.8 g/dL (3.2-5.5); ALBUMIN/GLOBULIN RATIO 1.4 (1.0-2.2); BILIRUBIN,TOTAL 0.9 mg/dL (0.2-1.0); CALCIUM 10.1 mg/dL (8.5-10.3); CREATININE 0.9 mg/dL (0.4-1.0); TOTAL PROTEIN 8.3 g/dL (6.7-8.2)
[2020-01-27] MEDS ORDERED: SODIUM CHLORIDE 0.9% 1,000 ML IV STA (07:40)
[2020-01-27] MEDS ORDERED: HYDROmorphone 1 MG/ML CARPUJECT IVP STA (07:40)
[2020-01-27] MEDS ORDERED: HALOPERIDOL 5 MG/ML VIAL IVP ONE (07:40)
[2020-01-27] MEDS ORDERED: ONDANSETRON 4 MG/2 ML VIAL IVP STA (07:40)
--- NOTE | 2020-01-27 07:43 | ED Physician Documentation ---
PD HPI NVD - Stated complaint Stated Complaint: VOMITING - Chief complaint Chief Complaint: Abd Pain - History obtained from History obtained from: Patient, Family - History of Present Illness Timing - onset: Enter time (1700), Yesterday Timing - duration: Hours Timing - details: Abrupt onset, Still present Associated symptoms: Abdominal pain Contributing factors: No: Sick contact, Bad food, Travel, Recent antibiotics, Alcohol use, Anticoagulated, Diabetes Improved by: Vomiting, Meds Similar symptoms before: Diagnosis (cyclical vomiting syndrome) Recently seen: Emergency Dept - Additonal information Additional information: 44-year-old female with a history of cyclical vomiting was seen in the emergency department yesterday given a dose of Dilaudid and Zofran with improvement in her symptoms and she was sent home with Zofran and Phenergan suppositories. She went home and slept in about 5 PM woke up with symptoms again and she was medicated throughout the night continues to have abdominal pain nausea and vomiting. This is similar to what has happened with her previously. Her cycles usually last about 5 days. 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 : None HEENT: None Psych: None Musculoskeletal: None Derm: None - Past Surgical History Past Surgical History: Yes General: Cholecystectomy, Appendectomy - Present Medications Home Medications: Ambulatory Orders Medication Instructions Recorded Confirmed Ondansetron Odt [Zofran Odt] 4 mg TL Q6H PRN #10 tablet 09/16/18 01/26/20 Promethazine Supp [Phenergan Supp] 25 mg [place] Q6HR PRN #10 supp 09/16/18 01/26/20 LORazepam [Lorazepam] 0.5 - 1 mg PO TID PRN #15 tablet 03/07/19 01/26/20 Sumatriptan [Imitrex] 1 spray KENA Q2H PRN #10 spray MDD 03/07/19 01/26/20 4 SPRAY/24HRS oxyCODONE [Roxicodone] 5 mg PO Q4-6H PRN #10 tablet 03/07/19 01/26/20 Ondansetron Odt [Zofran] 4 mg TL Q6H PRN #10 tablet 01/26/20 Promethazine Supp [Phenergan Supp] 25 mg [place] Q6HR PRN #12 supp 01/26/20 Promethazine Supp [Phenergan Supp] 25 mg [place] Q6HR PRN #14 supp 01/27/20 - Allergies Allergies/Adverse Reactions: Allergies Allergy/AdvReac Type Severity Reaction Status Date / Time metoclopramide HCl * Allergy Rash Verified 01/27/20 06:48 [From Reglan] - Social History Does the pt smoke?: Yes Smoking Status: Current every day smoker Does the pt drink ETOH?: Yes Does the pt have substance abuse?: No - Immunizations Immunizations are current?: Yes - POLST Patient has POLST: No POLST Status: Full Code PD ED PE NORMAL - Vitals Vital signs reviewed: Yes - General General: Alert and oriented X 3 (Hypertensive), Well developed/nourished, Other (44-year-old female laying in the position crying and moaning in pain. 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, No motor deficit, No sensory deficit, Normal speech Eye Opening: Spontaneous Motor: Obeys Commands Verbal: Oriented GCS Score: 15 - Psych Psych: Other (Again the mood is helpless and the affect sad) Results - Vitals Vitals: Vital Signs - 24 hr 01/27/20 01/27/20 01/27/20 06:48 07:13 07:54 Temperature 37.3 C Heart Rate 88 81 78 Respiratory 18 15 18 Rate Blood Pressure 183/105 H 111/89 H 136/96 H O2 Saturation 96 98 98 01/27/20 01/27/20 01/27/20 08:30 08:42 09:00 Temperature Heart Rate 77 77 73 Respiratory 15 15 16 Rate Blood Pressure 142/85 H 123/83 H 111/70 O2 Saturation 96 96 99 01/27/20 01/27/20 01/27/20 09:59 10:00 11:21 Temperature Heart Rate 70 68 73 Respiratory 14 16 19 Rate Blood Pressure 129/86 H 126/83 H 132/85 H O2 Saturation 94 97 96 Oxygen O2 Source Room air - Labs Labs: Laboratory Tests 01/27/20 01/27/20 07:11 07:11 WBC 9.5 RBC 4.31 Hgb 13.9 Hct 42.1 MCV 97.7 MCH 32.3 H MCHC 33.0 RDW 12.9 Plt Count 235 MPV 10.1 Neut # (Auto) 7.2 H Lymph # (Auto) 1.6 [place] # (Auto) 0.7 Eos # (Auto) 0.0 Baso # (Auto) 0.0 Absolute Nucleated RBC 0.00 Nucleated RBC % 0.0 Sodium 139 Potassium 3.4 L Chloride 95 L Carbon Dioxide 34 H Anion Gap 10.0 BUN 18 Creatinine 0.9 Estimated GFR (MDRD) 67 L Glucose 121 H Calcium 10.1 Total Bilirubin 0.9 AST 18 ALT 20 Alkaline Phosphatase 63 Total Protein 8.3 H Albumin 4.8 Globulin 3.5 Albumin/Globulin Ratio 1.4 Lipase 74 H PD MEDICAL DECISION MAKING - ED course Complexity details: reviewed old records, reviewed results, re-evaluated patient, considered differential, d/w patient, d/w family ED course: 44-year-old female with history of cyclical vomiting has had relief only with the use of rectal Phenergan and Zofran and getting into the tub. She had good relief yesterday with use of Dilaudid and Zofran. These were the only medications provided yesterday. These doses were repeated and in addition she is administered Haldol 2.5 mg intravenously. In review of the patient's prior medical record she has not been given Haldol previously. Departure - Departure Disposition: 01 Home, Self Care Clinical Impression: Cyclical vomiting Condition: Stable Instructions: ED Nausea Vomiting Follow-Up: Sergo Martino MD [Primary Care Provider] - Prescriptions: Promethazine Supp [Phenergan Supp] 25 mg [place] Q6HR PRN #14 supp PRN Reason: Nausea / Vomiting
[2020-01-27] MEDS ORDERED: KETOROLAC 30 MG/ML VIAL IVP STA (09:18)
[2020-01-27 11:40] VITALS: BP 128/65
== END 2020-01-27 11:40 | disposition home or self-care (01) ==
LOC: ED 06:41
DX: R11.15 Cyclical vomiting syndrome unrelated to migraine (principal); F17.200 Nicotine dependence, unspecified, uncomplicated
CPT/HCPCS: 36415; 80053; 83690; 85025; 96361; 96374; 96375; 99284; 99285; J1170

== ENCOUNTER 2020-02-16 15:54 | Outpatient (CLI) | payer OTHER ==
--- NOTE | 2020-02-16 17:22 | Ultrasound Report ---
PROCEDURE: Duplex Upr Ext Arterial LT INDICATIONS: Left hand pain TECHNIQUE: Grayscale, color, and spectral Doppler interrogation was performed of left upper extremity arterial s ystems, with image documentation. COMPARISON: None. FINDINGS: Subclavian artery (mid): 146 cm/sec, with triphasic flow. Axillary artery: 101 cm/sec, with triphasic flow. The patient has 2 brachial arteries, a frequently seen normal variant. Velocities in the brachial art eries are 105-128 cm/s proximally, 88-96 cm/s in the mid segments, and 63-117 cm/s distally. Radial artery (proximal): 78 cm/sec, with monophasic flow. Radial artery (mid): 84 cm/sec, with monophasic flow. Radial artery (distal): 95 cm/sec, with monophasic flow. Ulnar artery (proximal): 82 cm/sec, with monophasic flow. Ulnar artery (mid): 74 cm/sec. with monophasic flow. Ulnar artery (distal): 64 cm/sec, with monophasic flow. Ricks-scale imaging description: No stenotic lesion identified on grayscale imaging. IMPRESSION: Normal flow velocities in the left upper extremity. There is monophasic flow in the radial and ulnar arteries, although this is not accompanied by increased velocity within these segments or in the imme diately proximal brachial arteries. Just this is considered to be artifactual in nature. If there is any clinical concern for limb ischemia, CT angiogram would be recommended. Reviewed by: Bobby Oropeza MD on 02/16/2020 5:21 PM PDT Approved by: Bobby Oropeza MD on 02/16/2020 5:21 PM PDT Station ID: [id number]
== END 2020-02-16 15:55 | disposition home or self-care (01) ==
LOC: DI 15:54
PROVIDERS: ATTEND Internal Medicine
DX: M25.542 Pain in joints of left hand (principal)

== ENCOUNTER 2020-07-30 10:11 | Emergency (ER) | payer OTHER ==
--- NOTE | 2020-07-30 10:30 | ED Physician Documentation ---
PD HPI NVD - Stated complaint Stated Complaint: VOMITING/STOMACH PX - Chief complaint Chief Complaint: Abd Pain - History obtained from History obtained from: Patient - History of Present Illness Timing - onset: Last night Timing - duration: Hours (12) Timing - details: Abrupt onset, Still present Associated symptoms: Abdominal pain (upper abd crampy pain), Loss of appetite. No: Fever, Chest pain, Near syncope / syncope Contributing factors: No: Sick contact, Bad food, Travel, Recent antibiotics, A lcohol use, Diabetes Improved by: No: Vomiting, Meds (took Zofran at home. Ran out of Phenergan and Ativan with prior episode few weeks ago.), Other (not with showering) Worsened by: Eating Similar symptoms before: No diagnosis (cyclic vomiting without speicific dx. She denies it being from her cannibis use as had an episode even when stopped use for 2 months. However no other cause has been clearly found. Prior CCY without improvement in episodes.) Recently seen: Not recently seen Review of Systems Constitutional: reports: Myalgias. denies: Fever, Chills Nose: denies: Rhinorrhea / runny nose, Congestion Throat: denies: Sore throat Respiratory: denies: Cough GI: reports: Abdominal Pain, Nausea, Vomiting. denies: Diarrhea, Hematemesis : denies: Dysuria, Frequency Skin: denies: Rash Neurologic: reports: Generalized weakness. 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 : None HEENT: None Psych: None, Anxiety Musculoskeletal: None Derm: None - Past Surgical History Past Surgical History: Yes General: Cholecystectomy, Appendectomy - Present Medications Home Medications: Ambulatory Orders Medication Instructions Recorded Confirmed Ondansetron Odt [Zofran Odt] 4 mg TL Q6H PRN #10 tablet 09/16/18 01/26/20 Promethazine Supp [Phenergan Supp] 25 mg [place] Q6HR PRN #10 supp 09/16/18 01/26/20 LORazepam [Lorazepam] 0.5 - 1 mg PO TID PRN #15 tablet 03/07/19 01/26/20 Sumatriptan [Imitrex] 1 spray KENA Q2H PRN #10 spray MDD 03/07/19 01/26/20 4 SPRAY/24HRS oxyCODONE [Roxicodone] 5 mg PO Q4-6H PRN #10 tablet 03/07/19 01/26/20 Ondansetron Odt [Zofran] 4 mg TL Q6H PRN #10 tablet 01/26/20 Promethazine Supp [Phenergan Supp] 25 mg [place] Q6HR PRN #12 supp 01/26/20 Promethazine Supp [Phenergan Supp] 25 mg [place] Q6HR PRN #14 supp 01/27/20 LORazepam [Ativan] 1 mg PO Q8H PRN #15 tablet 07/30/20 Ondansetron Odt [Zofran] 4 mg TL Q6H PRN #20 tablet 07/30/20 Promethazine [Phenergan] 25 mg PO Q6H PRN #20 tab 07/30/20 - Allergies Allergies/Adverse Reactions: Allergies Allergy/AdvReac Type Severity Reaction Status Date / Time metoclopramide HCl * Allergy Rash Verified 07/30/20 10:14 [From [facility]] - Social History Does the pt smoke?: Yes Smoking Status: Current every day smoker Does the pt drink ETOH?: Yes Does the pt have substance abuse?: No - Immunizations Immunizations are current?: Yes - POLST Patient has POLST: No POLST Status: Full Code PD ED PE NORMAL - Vitals Vital signs reviewed: Yes - General General: Alert and oriented X 3, Well developed/nourished, Other (actively dry heaving. Very anxious. States significant upper abd pain. ) - HEENT HEENT: Pharynx benign. No: Moist mucous membranes - Neck Neck: Supple, no meningeal sign, No adenopathy - Cardiac Cardiac: RRR, No murmur - Respiratory Respiratory: Clear bilaterally - Abdomen Abdomen: Soft, Non distended, No organomegaly, Other (very tender in upper abd with local guarding. No percussion tenderness. ) Results - Vitals Vitals: Vital Signs - 24 hr 07/30/20 07/30/20 07/30/20 10:15 16:29 16:34 Temperature 36.5 C Heart Rate 84 81 72 Respiratory 22 16 19 Rate Blood Pressure 165/100 H 126/83 H 116/80 O2 Saturation 98 100 99 Oxygen O2 Source Room air - Labs Labs: Laboratory Tests 07/30/20 07/30/20 11:22 11:22 WBC 10.0 RBC 4.25 Hgb 13.7 Hct 41.5 MCV 97.6 MCH 32.2 H MCHC 33.0 RDW 12.9 Plt Count 225 MPV 10.4 Neut # (Auto) 8.8 H Lymph # (Auto) 0.8 L [place] # (Auto) 0.4 Eos # (Auto) 0.0 Baso # (Auto) 0.0 Absolute Nucleated RBC 0.00 Nucleated RBC % 0.0 Sodium 143 Potassium 3.4 L Chloride 101 Carbon Dioxide 24 Anion Gap 18.0 H BUN 11 Creatinine 0.8 Estimated GFR (MDRD) 77 L Glucose 166 H Calcium 10.2 Magnesium 1.9 Total Bilirubin 0.8 AST 24 ALT 15 Alkaline Phosphatase 76 Total Protein 8.2 Albumin 5.1 Globulin 3.1 Albumin/Globulin Ratio 1.6 Lipase 22 PD MEDICAL DECISION MAKING - ED course Complexity details: re-evaluated patient (improved with IV fluids and meds. SYmptoms recurrent after a little while. Given repeat dosing of some meds and is then feeling much morer improved and feels "the cycle is over", and feels okay to head home. Out of meds she uses PRN for these episodes. ), considered differential (cyclic vomiting. She states she does not feel it is cannibis related. No diabetes, gastritis, has had CCY. DOes use cannibis, but had episode in past even when off cannibis for 2 months.), d/w patient Departure - Departure Disposition: 01 Home, Self Care Clinical Impression: Cyclical vomiting Nausea and vomiting Qualifiers: Vomiting type: unspecified Vomiting Intractability: intractable Qualified Code(s): R11.2 - Nausea with vomiting, unspecified Condition: Stable Record reviewed to determine appropriate education?: Yes Instructions: ED Nausea Vomiting Follow-Up: Sergo Martino MD [Primary Care Provider] - Prescriptions: LORazepam [Ativan] 1 mg PO Q8H PRN #15 tablet PRN Reason: Anxiety Promethazine [Phenergan] 25 mg PO Q6H PRN #20 tab PRN Reason: Nausea / Vomiting Ondansetron Odt [Zofran] 4 mg TL Q6H PRN #20 tablet PRN Reason: Nausea / Vomiting Comments: Small frequent fluids. [place] food for a few days. Ondansetron (Zofran) or Phenergan as needed for nausea. Lorazepam for anxiety/nausea. Continue your other usual medications. Recheck if not improved well over the next few days and return if worse. Discharge Date/Time: 07/30/20 16:34
[2020-07-30] MEDS ORDERED: SODIUM CHLORIDE 0.9% 1,000 ML IV STA ×3 (10:45→14:10)
[2020-07-30] MEDS ORDERED: HYDROmorphone 2 MG/ML VIAL IM STA (10:46)
[2020-07-30] MEDS ORDERED: diphenhydrAMINE INJ 50 MG/ML VIAL IVP STA (10:46)
[2020-07-30] MEDS ORDERED: PROMETHAZINE 25 MG/1 ML VIAL IM STA (10:46)
[2020-07-30] MEDS ORDERED: LORazepam 2 MG/ML VIAL IVP STA (10:46)
[2020-07-30] MEDS ORDERED: HALOPERIDOL 5 MG/ML VIAL IVP ONE ×2 (10:46→14:25)
[2020-07-30 11:27] LABS: BASOPHILS % (AUTO) 0.4 %; EOSINOPHILS % (AUTO) 0.3 %; HGB - HEMOGLOBIN 13.7 g/dL (12.0-16.0); LYMPHOCYTES # (AUTO) 0.8 10^3/uL (1.5-3.5); LYMPHOCYTES % (AUTO) 7.7 %; MEAN CORPUSCULAR HEMOGLOBIN 32.2 pg (27.0-31.0); MEAN CORPUSCULAR VOLUME 97.6 fL (81.0-99.0); MEAN PLATELET VOLUME 10.4 fL (7.9-10.8); MONOCYTES # (AUTO) 0.4 10^3/uL (0.0-1.0); MONOCYTES % (AUTO) 3.6 %; NEUTROPHILS # (AUTO) 8.8 10^3/uL (1.5-6.6); NEUTROPHILS % (AUTO) 87.7 %; PLT - PLATELET COUNT 225 10^3/uL (130-450); RED BLOOD COUNT 4.25 10^6/uL (4.20-5.40); RED CELL DISTRIBUTION WIDTH 12.9 % (12.0-15.0)
[2020-07-30 11:42] LABS: ALBUMIN 5.1 g/dL (3.2-5.5); ALBUMIN/GLOBULIN RATIO 1.6 (1.0-2.2); BILIRUBIN,TOTAL 0.8 mg/dL (0.2-1.0); CALCIUM 10.2 mg/dL (8.5-10.3); CREATININE 0.8 mg/dL (0.4-1.0); MAGNESIUM 1.9 mg/dL (1.7-2.8); TOTAL PROTEIN 8.2 g/dL (6.7-8.2)
[2020-07-30] MEDS ORDERED: HYDROmorphone 1 MG/ML CARPUJECT IVP STA (14:09)
[2020-07-30] MEDS ORDERED: KETOROLAC 15 MG/ML VIAL IVP STA (14:10)
[2020-07-30 16:35] VITALS: BP 116/80
== END 2020-07-30 16:34 | disposition home or self-care (01) ==
LOC: ED 10:11
DX: R11.15 Cyclical vomiting syndrome unrelated to migraine (principal); F17.200 Nicotine dependence, unspecified, uncomplicated
CPT/HCPCS: 80053; 83690; 83735; 85025; 96372; 96374; 96375; 96376; 99284; 99285; J1170; J1200; J2060; 36415

== ENCOUNTER 2020-09-24 01:22 | Emergency (ER) | payer OTHER ==
[2020-09-24] MEDS ORDERED: SODIUM CHLORIDE 0.9% 1,000 ML IV STA ×3 (01:41→03:55)
[2020-09-24] MEDS ORDERED: LORazepam 2 MG/ML VIAL IVP STA ×2 (01:42→04:34)
[2020-09-24] MEDS ORDERED: ONDANSETRON 4 MG/2 ML VIAL IVP STA ×2 (01:42→03:43)
[2020-09-24] MEDS ORDERED: LIDOCAINE PATCH 5% TOP STA (01:43)
[2020-09-24] MEDS ORDERED: HYDROmorphone 1 MG/ML CARPUJECT IVP STA (01:43)
[2020-09-24] MEDS ORDERED: FAMOTIDINE 20 MG/2 ML VIAL IVP STA (01:43)
[2020-09-24] MEDS ORDERED: CAPSAICIN 0.025% CREAM 60 GM TUBE TOP STA (01:49)
--- NOTE | 2020-09-24 01:56 | ED Physician Documentation ---
PD HPI ABD PAIN - Stated complaint Stated Complaint: VOMITING - Chief complaint Chief Complaint: Abd Pain - History obtained from History obtained from: Patient - Additional information Additional information: 45-year-old woman with history of cyclic vomiting syndrome presents with nausea and vomiting progressively worsening over the past couple days, gradual in onset associated with epigastric pain that is radiating diffusely to the abdomen, cramping, worse with vomiting, moderate severity, intermittent.Denies diarrhea or fevers or urinary symptoms or vaginal bleeding/discharge. Review of Systems Ten Systems: 10 systems reviewed and negative Constitutional: reports: Myalgias. denies: Fever, Chills GI: reports: Abdominal Pain, Nausea, Vomiting. 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 : None HEENT: None Psych: Anxiety Musculoskeletal: None Derm: None - Past Surgical History Past Surgical History: Yes General: Cholecystectomy, Appendectomy - Present Medications Home Medications: Ambulatory Orders Medication Instructions Recorded Confirmed Sumatriptan [Imitrex] 1 spray KENA Q2H PRN #10 spray MDD 03/07/19 09/24/20 4 SPRAY/24HRS oxyCODONE [Roxicodone] 5 mg PO Q4-6H PRN #10 tablet 03/07/19 09/24/20 Promethazine Supp [Phenergan Supp] 25 mg [place] Q6HR PRN #14 supp 01/27/20 09/24/20 LORazepam [Ativan] 1 mg PO Q8H PRN #15 tablet 07/30/20 09/24/20 Ondansetron Odt [Zofran] 4 mg TL Q6H PRN #20 tablet 07/30/20 09/24/20 - Allergies Allergies/Adverse Reactions: Allergies Allergy/AdvReac Type Severity Reaction Status Date / Time metoclopramide HCl * Allergy Rash Verified 09/24/20 04:29 [From Reglan] - Social History Does the pt smoke?: Yes Smoking Status: Current every day smoker Does the pt drink ETOH?: Yes Does the pt have substance abuse?: No - Immunizations Immunizations are current?: Yes - POLST Patient has POLST: No POLST Status: Full Code PD ED PE NORMAL - Vitals Vital signs reviewed: Yes - General General: Alert and oriented X 3, Other (Anxious appearing, actively dry heaving, intermittently vomiting small volumes of stomach fluid) - HEENT HEENT: Atraumatic, PERRL, EOMI - Neck Neck: Supple, no meningeal sign - Cardiac Cardiac: RRR - Respiratory Respiratory: No respiratory distress, Clear bilaterally - Abdomen Abdomen: Non tender, Non distended, Other (discomfort to epigastric palpation) - Female Female : Deferred - Rectal Rectal: Deferred - Back Back: No CVA TTP - Derm Derm: Normal color - Extremities Extremities: No deformity - Neuro Neuro: Alert and oriented X 3 - Psych Psych: Other (anxious mood and affect) Results - Vitals Vitals: Vital Signs - 24 hr 09/24/20 09/24/20 09/24/20 01:29 01:30 02:00 Temperature 37.1 C 37.1 C Heart Rate 70 70 63 Respiratory 20 20 20 Rate Blood Pressure 172/137 H 172/137 H 164/100 H O2 Saturation 94 94 97 09/24/20 09/24/20 09/24/20 02:20 02:56 03:22 Temperature 37.1 C Heart Rate 65 75 74 Respiratory 19 20 18 Rate Blood Pressure 166/93 H 105/73 130/91 H O2 Saturation 96 99 98 09/24/20 09/24/20 09/24/20 03:41 04:28 04:47 Temperature Heart Rate 85 82 88 Respiratory 19 22 16 Rate Blood Pressure 125/88 H O2 Saturation 98 100 97 09/24/20 09/24/20 05:04 05:07 Temperature Heart Rate 68 Respiratory 17 Rate Blood Pressure 143/93 H O2 Saturation Oxygen O2 Source Nasal cannula - Labs Labs: Laboratory Tests 09/24/20 09/24/20 02:00 02:00 WBC 9.7 RBC 4.56 Hgb 14.4 Hct 43.0 MCV 94.3 MCH 31.6 H MCHC 33.5 RDW 12.0 Plt Count 244 MPV 10.7 Neut # (Auto) 7.5 H Lymph # (Auto) 1.7 [place] # (Auto) 0.5 Eos # (Auto) 0.0 Baso # (Auto) 0.0 Absolute Nucleated RBC 0.00 Nucleated RBC % 0.0 Sodium 142 Potassium 3.0 L Chloride 94 L Carbon Dioxide 28 Anion Gap 20.0 H BUN 22 H Creatinine 0.9 Estimated GFR (MDRD) 67 L Glucose 147 H Calcium 10.4 H Total Bilirubin 1.3 H AST 22 ALT 21 Alkaline Phosphatase 65 Total Protein 8.9 H Albumin 5.4 Globulin 3.5 Albumin/Globulin Ratio 1.5 Lipase 27 PD MEDICAL DECISION MAKING - ED course ED course: 45-year-old with 20-year history of cyclic vomiting syndrome presents with an episode of nausea vomiting that she states is typical of her syndrome. States that she wants to break the cycle. We will treat symptomatically and reassess. 2:15am - patient sleeping comfortably. vomiting stopped at this time. 5:30am- patient sleeping but arousable easily. tolerating sips of water.
[2020-09-24 02:11] LABS: BASOPHILS % (AUTO) 0.2 %; HGB - HEMOGLOBIN 14.4 g/dL (12.0-16.0); LYMPHOCYTES # (AUTO) 1.7 10^3/uL (1.5-3.5); LYMPHOCYTES % (AUTO) 17.4 %; MEAN CORPUSCULAR HEMOGLOBIN 31.6 pg (27.0-31.0); MEAN CORPUSCULAR HGB CONC 33.5 g/dL (32.0-36.0); MEAN CORPUSCULAR VOLUME 94.3 fL (81.0-99.0); MEAN PLATELET VOLUME 10.7 fL (7.9-10.8); MONOCYTES # (AUTO) 0.5 10^3/uL (0.0-1.0); MONOCYTES % (AUTO) 5.1 %; NEUTROPHILS # (AUTO) 7.5 10^3/uL (1.5-6.6); NEUTROPHILS % (AUTO) 77.1 %; PLT - PLATELET COUNT 244 10^3/uL (130-450); RED BLOOD COUNT 4.56 10^6/uL (4.20-5.40); WHITE BLOOD COUNT 9.7 x10^3/uL (4.8-10.8)
[2020-09-24 02:23] LABS: ALBUMIN 5.4 g/dL (3.2-5.5); ALBUMIN/GLOBULIN RATIO 1.5 (1.0-2.2); BILIRUBIN,TOTAL 1.3 mg/dL (0.2-1.0); CALCIUM 10.4 mg/dL (8.5-10.3); CREATININE 0.9 mg/dL (0.4-1.0); TOTAL PROTEIN 8.9 g/dL (6.7-8.2)
[2020-09-24] MEDS ORDERED: POTASSIUM CHLOR 10 MEQ/100 ML 10 MEQ/100 ML BAG IV STA ×2 (02:47→03:43)
[2020-09-24] MEDS ORDERED: POTASSIUM CHLORIDE 20 MEQ IV SCH (03:00)
[2020-09-24] MEDS ORDERED: diphenhydrAMINE INJ 50 MG/ML VIAL IVP STA (03:42)
[2020-09-24] MEDS ORDERED: SUMAtriptan 6 MG/0.5 ML VIAL SUBQ STA (03:53)
[2020-09-24] MEDS ORDERED: HYDROmorphone 2 MG/ML VIAL IVP STA (04:34)
[2020-09-24 05:59] VITALS: BP 127/92
== END 2020-09-24 06:30 | disposition home or self-care (01) ==
LOC: ED 01:22
DX: R11.15 Cyclical vomiting syndrome unrelated to migraine (principal); F17.200 Nicotine dependence, unspecified, uncomplicated
CPT/HCPCS: 36415; 80053; 83690; 85025; 96365; 96366; 96372; 96375; 96376; 99284; 99285; J1170; J1200; J2060

== ENCOUNTER 2020-09-27 08:38 | Outpatient (CLI) | payer OTHER ==
--- NOTE | 2020-09-27 10:34 | XRAY Report ---
PROCEDURE: Lumbar Spine 2 View INDICATIONS: SHOULDER SPRAIN, LOW BACK PAIN, PAIN IN UNS JOINT, TECHNIQUE: 2 views of the lumbar spine were acquired. COMPARISON: None. FINDINGS: Bones: 5 [id number] vertebrae are present. There is normal bony alignment. No vertebral body compression fractures. No suspicious bony lesions. Mild disc space narrowing and endplate osteophyt e formation at L4-L5 and L5-S1. Facet hypertrophy throughout the mid and lower lumbar spine. Soft tissues: Overlying bowel gas pattern is normal. No suspicious soft tissue calcifications. IMPRESSION: Multilevel degenerative disc and facet disease. No acute fracture. No osseous lesion. If symptoms and/or clinical suspicion for pathology continue, further assessment with repeat plain film s, or advanced imaging (e.g., CT, MRI, or bone scan) is recommended for further assessment. Reviewed by: Symone Oliva MD on 09/27/2020 10:33 AM [facility] Approved by: Symone Oliva MD on 09/27/2020 10:33 AM PST Station ID: [id number]
--- NOTE | 2020-09-27 10:36 | XRAY Report ---
PROCEDURE: Thoracic Spine 2 View INDICATIONS: SHLDR SPRAIN, LOW BACK PAIN, PAIN IN UNS JOINT TECHNIQUE: 3 views of the thoracic spine were acquired. COMPARISON: None. FINDINGS: Bones: No fractures or dislocations. No suspicious bony lesions. Visualized ribs are intact. Multil evel disc space narrowing and endplate osteophyte formation. Soft tissues: No paravertebral stripe thickening. IMPRESSION: Multilevel degenerative disc disease. No acute fracture. No osseous lesion. If symptoms and/or clinic al suspicion for pathology continue, further assessment with repeat plain films, or advanced imaging (e.g., CT, MRI, or bone scan) is recommended for further assessment. Reviewed by: Symone Oliva MD on 09/27/2020 10:34 AM PST Approved by: Symone Oliva MD on 09/27/2020 10:34 AM PST Station ID: [id number]
--- NOTE | 2020-09-27 10:36 | XRAY Report ---
PROCEDURE: Cervical Spine 2 View INDICATIONS: SHOULDER SPRAIN/LOW BACK PAIN/PAIN IN UNS JOINT/ TECHNIQUE: 3 view(s) of the cervical spine were acquired. COMPARISON: None. FINDINGS: Bones: No fractures or dislocations to the C7 level. The lateral masses of C1 appear intact on the odontoid view. No suspicious bony lesions. Multilevel disc space narrowing and endplate osteophyte formation, worst at C4-C5 and C5-C6, indicating degenerative disc disease. Facet hypertrophy througho ut the mid and lower cervical spine. Soft tissues: No prevertebral soft tissue swelling. IMPRESSION: 1. Multilevel degenerative disc and facet disease. 2. No acute fracture. No osseous lesion. If symptoms and/or clinical suspicion for pathology continue , further assessment with repeat plain films, or advanced imaging (e.g., CT, MRI, or bone scan) is re commended for further assessment. Reviewed by: Symone Oliva MD on 09/27/2020 10:35 AM [facility] Approved by: Symone Oliva MD on 09/27/2020 10:35 AM PST Station ID: [id number]
--- NOTE | 2020-09-27 10:37 | XRAY Report ---
PROCEDURE: Shoulder 3 View RT INDICATIONS: SHOULDER SPRAIN/LOW BACK PAIN/HEADACHE TECHNIQUE: 3 views of the shoulder were acquired. COMPARISON: None. FINDINGS: Bones: No fractures or dislocations. No suspicious bony lesions. Visualized ribs appear intact. Mi ld periarticular osteophyte formation at the acromioclavicular and glenohumeral joints. Soft tissues: No suspicious soft tissue calcifications. IMPRESSION: Mild osteoarthritis. No acute fracture. No osseous lesion. If symptoms and/or clinical s uspicion for pathology continue, further assessment with repeat plain films, or advanced imaging (e.g ., CT, MRI, or bone scan) is recommended for further assessment. Reviewed by: Symone Oliva MD on 09/27/2020 10:36 AM [facility] Approved by: Symone Oliva MD on 09/27/2020 10:36 AM [facility] Station ID: [id number]
== END 2020-09-27 08:39 | disposition home or self-care (01) ==
LOC: DI.N 08:38
PROVIDERS: ATTEND Internal Medicine
DX: S43.419A Sprain of unspecified coracohumeral (ligament), initial encounter (principal); R51.9 Headache, unspecified; M79.18 Myalgia, other site; M19.011 Primary osteoarthritis, right shoulder; M50.321 Other cervical disc degeneration at C4-C5 level; M51.36 Other intervertebral disc degeneration, lumbar region; M51.34 Other intervertebral disc degeneration, thoracic region

== ENCOUNTER 2020-11-06 16:24 | Emergency (ER) | payer OTHER ==
[2020-11-06] MEDS ORDERED: DROPERIDOL 5 MG/2 ML VIAL IVP STA (17:24)
[2020-11-06] MEDS ORDERED: SODIUM CHLORIDE 0.9% 1,000 ML IV STA (17:25)
[2020-11-06 17:31] LABS: BASOPHILS % (AUTO) 0.4 %; EOSINOPHILS % (AUTO) 0.1 %; HCT - HEMATOCRIT 42.3 % (37.0-47.0); HGB - HEMOGLOBIN 14.4 g/dL (12.0-16.0); LYMPHOCYTES % (AUTO) 11.1 %; MEAN CORPUSCULAR HEMOGLOBIN 31.5 pg (27.0-31.0); MEAN CORPUSCULAR VOLUME 92.6 fL (81.0-99.0); MEAN PLATELET VOLUME 10.7 fL (7.9-10.8); MONOCYTES # (AUTO) 0.3 10^3/uL (0.0-1.0); NEUTROPHILS # (AUTO) 7.6 10^3/uL (1.5-6.6); NEUTROPHILS % (AUTO) 85.2 %; PLT - PLATELET COUNT 279 10^3/uL (130-450); RED BLOOD COUNT 4.57 10^6/uL (4.20-5.40); RED CELL DISTRIBUTION WIDTH 12.5 % (12.0-15.0); WHITE BLOOD COUNT 8.9 x10^3/uL (4.8-10.8)
[2020-11-06] MEDS ORDERED: LORazepam 2 MG/ML VIAL IVP STA (17:31)
--- NOTE | 2020-11-06 17:32 | ED Physician Documentation ---
History of Present Illness - Stated complaint Stated Complaint: VOMITING - Chief complaint Chief Complaint: Abd Pain - History obtained from History obtained from: Patient - History of Present Illness Timing: Today Pain level max: 0 Pain level now: 0 - Additonal information Additional information: 45-year-old female presents to the emergency department with vomiting for the past several days. This is a chronic ongoing issue thought to be secondary to hyperemesis from cannabinoid use. Still uses daily marijuana. Took Zofran and Phenergan without relief. No fevers. No chills. Nothing makes it better or worse. Patient also takes daily narcotics, states unable to keep it down and may have run out. Review of Systems Constitutional: denies: Fever, Chills Cardiac: denies: Chest pain / pressure Respiratory: denies: Cough GI: reports: Abdominal Pain (Crampy, diffuse), Nausea, Vomiting. denies: Diarrhea Skin: denies: Rash Musculoskeletal: denies: Neck pain, Back pain Neurologic: denies: Headache PD PAST MEDICAL HISTORY - Past Medical History Past Medical History: Yes Cardiovascular: None Respiratory: None Neuro: None Endocrine/Autoimmune: None GI: Other BACKGROUND CHECK COORDINATOR: None : None HEENT: None Psych: Anxiety Musculoskeletal: None Derm: None - Past Surgical History Past Surgical History: Yes General: Cholecystectomy, Appendectomy - Present Medications Home Medications: Ambulatory Orders Medication Instructions Recorded Confirmed Sumatriptan [Imitrex] 1 spray KENA Q2H PRN #10 spray MDD 03/07/19 09/24/20 4 SPRAY/24HRS oxyCODONE [Roxicodone] 5 mg PO Q4-6H PRN #10 tablet 03/07/19 09/24/20 Promethazine Supp [Phenergan Supp] 25 mg [place] Q6HR PRN #14 supp 01/27/20 09/24/20 LORazepam [Ativan] 1 mg PO Q8H PRN #15 tablet 07/30/20 09/24/20 Ondansetron Odt [Zofran] 4 mg TL Q6H PRN #20 tablet 07/30/20 09/24/20 Ondansetron Odt [Zofran Odt] 4 mg TL Q6H PRN #10 tab 09/24/20 - Allergies Allergies/Adverse Reactions: Allergies Allergy/AdvReac Type Severity Reaction Status Date / Time metoclopramide HCl * Allergy Rash Verified 11/06/20 17:14 [From Reglan] - Social History Does the pt smoke?: Yes Smoking Status: Current every day smoker Does the pt drink ETOH?: Yes Does the pt have substance abuse?: No - Immunizations Immunizations are current?: Yes - POLST Patient has POLST: No POLST Status: Full Code PD ED PE NORMAL - Vitals Vital signs reviewed: Yes - General General: Alert and oriented X 3, No acute distress - HEENT HEENT: Moist mucous membranes - Neck Neck: Supple, no meningeal sign - Cardiac Cardiac: RRR, Strong equal pulses - Respiratory Respiratory: No respiratory distress, Clear bilaterally - Abdomen Abdomen: Soft, Non tender, Non distended - Derm Derm: Warm and dry - Extremities Extremities: No edema - Neuro Neuro: Alert and oriented X 3 - Psych Psych: Normal mood, Normal affect Results - Vitals Vitals: Vital Signs - 24 hr 11/06/20 11/06/20 11/06/20 17:07 17:25 19:43 Temperature 36.5 C Heart Rate 88 76 89 Respiratory 20 20 34 H Rate Blood Pressure 154/111 H 126/94 H 151/93 H O2 Saturation 98 100 97 11/06/20 11/06/20 21:30 21:44 Temperature 36.5 C Heart Rate 93 80 Respiratory 16 14 Rate Blood Pressure 145/89 H 156/98 H O2 Saturation 96 97 Oxygen O2 Source Room air - Labs Labs: Laboratory Tests 11/06/20 11/06/20 11/06/20 17:22 17:22 20:35 WBC 8.9 RBC 4.57 Hgb 14.4 Hct 42.3 MCV 92.6 MCH 31.5 H MCHC 34.0 RDW 12.5 Plt Count 279 MPV 10.7 Neut # (Auto) 7.6 H Lymph # (Auto) 1.0 L [place] # (Auto) 0.3 Eos # (Auto) 0.0 Baso # (Auto) 0.0 Absolute Nucleated RBC 0.00 Nucleated RBC % 0.0 Sodium 142 Potassium 3.4 L Chloride 98 L Carbon Dioxide 23 Anion Gap 21.0 H BUN 12 Creatinine 1.1 H Estimated GFR (MDRD) 53 L Glucose 164 H Calcium 10.7 H Total Bilirubin 1.4 H AST 24 ALT 21 Alkaline Phosphatase 68 Total Protein 9.0 H Albumin 5.4 Globulin 3.6 Albumin/Globulin Ratio 1.5 Lipase 20 L Urine Color DARK YELLOW Urine Clarity HAZY Urine pH 7.0 Ur Specific [place] 1.025 Urine Protein 30 H Urine Glucose (UA) NEGATIVE Urine Ketones >=80 H Urine Occult Blood SMALL H Urine Nitrite NEGATIVE Urine Bilirubin NEGATIVE Urine Urobilinogen 0.2 (NORMAL) Ur Leukocyte Esterase NEGATIVE Urine RBC 6-10 H Urine WBC 0-3 Ur Squamous Epith Cells FEW Squamous Urine Bacteria Rare Urine Mucus Few Strands Ur Microscopic Review INDICATED Urine Culture Comments NOT INDICATED Urine HCG, Qual NEGATIVE Urine Opiates Screen NEGATIVE Ur Oxycodone Screen POSITIVE H Urine Methadone Screen NEGATIVE Ur Propoxyphene Screen NEGATIVE Ur Barbiturates Screen NEGATIVE Ur Tricyclics Screen NEGATIVE Ur Phencyclidine Scrn NEGATIVE Ur Amphetamine Screen NEGATIVE U Methamphetamines Scrn NEGATIVE U Benzodiazepines Scrn POSITIVE H Urine Cocaine Screen POSITIVE H U Cannabinoids Screen POSITIVE H PD MEDICAL DECISION MAKING - ED course Complexity details: reviewed old records, reviewed results, re-evaluated patient, considered differential, d/w patient ED course: Patient with her usual presentation of vomiting in the emergency department. Feels better after a small dose of Dilaudid, droperidol, Zofran and Phenergan. Abdominal pain resolved. Tolerating p.o. without difficulty. Patient request to go home at this time. We will have her follow-up with her doctor for further care. Patient counseled regarding signs and symptoms for which I believe and urgent re-evaluation would be necessary. Patient with good understanding of and agreement to plan and is comfortable going home at this time This document was made in part using voice recognition software. While efforts are made to proofread this document, sound alike and grammatical errors may occur. Departure - Departure Disposition: 01 Home, Self Care Clinical Impression: Narcotic dependence, Narcotic withdrawal, Cocaine abuse, Marijuana abuse, continuous Vomiting Qualifiers: Vomiting type: unspecified Vomiting Intractability: unspecified Nausea presence: with nausea Qualified Code(s): R11.2 - Nausea with vomiting, unspecified Condition: Good Instructions: ED Nausea Vomiting Follow-Up: Sergo Martino MD [Primary Care Provider] - Within 1 week Comments: Go home and rest. Drink plenty of fluids. Follow-up with your doctor for further care. Discharge Date/Time: 11/06/20 21:55
[2020-11-06 17:42] LABS: ALBUMIN 5.4 g/dL (3.2-5.5); ALBUMIN/GLOBULIN RATIO 1.5 (1.0-2.2); BILIRUBIN,TOTAL 1.4 mg/dL (0.2-1.0); CALCIUM 10.7 mg/dL (8.5-10.3); CREATININE 1.1 mg/dL (0.4-1.0); POTASSIUM 3.4 mmol/L (3.5-5.0)
[2020-11-06] MEDS ORDERED: diphenhydrAMINE INJ 50 MG/ML VIAL IVP STA (19:01)
[2020-11-06] MEDS ORDERED: PROMETHAZINE INJ 25 MG in SODIUM CHLORIDE 0.9% 50 ML IV STA (19:01)
[2020-11-06] MEDS ORDERED: PROMETHAZINE 25 MG/1 ML VIAL ONE (19:26)
[2020-11-06 20:36] LABS: MUDS CUTOFF CONCENTRATIONS CUTOFF CONC BELOW:
[2020-11-06 20:38] LABS: GLUCOSE, URINE (UA) NEGATIVE (NEGATIVE); KETONES,URINE (UA) >=80 mg/dL (NEGATIVE); LEUKOCYTE ESTERASE, URINE NEGATIVE (NEGATIVE); NITRITE,URINE NEGATIVE (NEGATIVE); OCCULT BLOOD,URINE SMALL (NEGATIVE); PROTEIN,URINE 30 mg/dL (NEGATIVE); UROBILINOGEN,URINE 0.2 (NORMAL) E.U./dL (NORMAL)
[2020-11-06 20:45] LABS: CLARITY,URINE HAZY (CLEAR); HCG UR QUAL NEGATIVE
[2020-11-06 20:46] LABS: BILIRUBIN,URINE NEGATIVE (NEGATIVE); ICTOTEST,URINE NEGATIVE
[2020-11-06 20:48] LABS: AMPHETAMINE SCREEN,URINE NEGATIVE (NEGATIVE); BARBITURATE SCREEN,UR NEGATIVE (NEGATIVE); BENZODIAZEPINES SCREEN, URINE POSITIVE (NEGATIVE); COCAINE SCREEN URINE POSITIVE (NEGATIVE); METHADONE SCREEN, URINE NEGATIVE (NEGATIVE); METHAMPHETAMINES SCREEN, URINE NEGATIVE (NEGATIVE); OPIATE SCREEN, URINE NEGATIVE (NEGATIVE); OXYCODONE SCREEN, URINE POSITIVE (NEGATIVE); PROPOXYPHENE SCREEN, URINE NEGATIVE (NEGATIVE); THC CANNABINOID SCREEN, URINE POSITIVE (NEGATIVE); TRICYCLIC ANTIDEPRESSANT,URINE NEGATIVE (NEGATIVE)
[2020-11-06 20:52] LABS: BACTERIA,URINE Rare /HPF (None Seen); MUCUS,URINE Few Strands; SQUAMOUS EPITHELIAL CELL,UR FEW Squamous (<= Few); WBC,URINE 0-3 /HPF (0-5)
[2020-11-06] MEDS ORDERED: HYDROmorphone 1 MG/ML CARPUJECT IVP STA (21:17)
[2020-11-06 21:45] VITALS: BP 156/98
== END 2020-11-06 21:55 | disposition home or self-care (01) ==
LOC: ED 16:24
DX: F11.23 Opioid dependence with withdrawal (principal); F14.20 Cocaine dependence, uncomplicated; F12.20 Cannabis dependence, uncomplicated; F17.200 Nicotine dependence, unspecified, uncomplicated
CPT/HCPCS: 36415; 80053; 80306; 81001; 81025; 83690; 85025; 96361; 96365; 96375; 99284; J1170; J1200; J2060; J7040; 81003; 87086

== ENCOUNTER 2021-05-02 19:44 | Emergency (ER) | payer OTHER ==
[2021-05-02] MEDS ORDERED: CHERRY SYRUP 10 ML UDC PO ONE (20:18)
[2021-05-02] MEDS ORDERED: diphenhydrAMINE INJ 50 MG/ML VIAL IM STA (20:18)
[2021-05-02] MEDS ORDERED: DEXAMETHASONE 10 MG/ML VIAL PO STA (20:18)
--- NOTE | 2021-05-02 20:21 | ED Physician Documentation ---
History of Present Illness - Stated complaint Stated Complaint: STROKE SYMPTOMS - Chief complaint Chief Complaint: Neuro - History obtained from History obtained from: Patient - History of Present Illness Timing: Today - Additonal information Additional information: 45-year-old female with a prior history of cannabis hyperemesis presents to the emergency department today with swelling of her tongue. She is having some pain in her jaw as well and she feels like this is all similar to what she had when she had a reaction to metoclopramide. She states that she went to [facility] yesterday for treatment of hyperemesis. She is uncertain what medications she was given yesterday. She also states that she had her [place] vaccine her second dose of that and appeared to have a reaction to that. She believes that is why she was in the emergency department at [place] yesterday. Review of Systems Constitutional: denies: Fever Eyes: denies: Decreased vision Ears: denies: Ear pain Nose: denies: Rhinorrhea / runny nose, Congestion Throat: reports: Other (Swollen tongue and jaw pain). denies: Sore throat Cardiac: denies: Chest pain / pressure, Palpitations Respiratory: reports: Cough. denies: Dyspnea GI: reports: Nausea (Resolved), Vomiting (Resolved). denies: Abdominal Pain : denies: Dysuria, Frequency Skin: denies: Rash Musculoskeletal: denies: Neck pain, Back pain, Extremity pain Neurologic: denies: Generalized weakness, Focal weakness, Numbness, Difficulty speaking, Confused, Headache, Head injury, LOC PD PAST MEDICAL HISTORY - Past Medical History Cardiovascular: None Respiratory: None Neuro: None Endocrine/Autoimmune: None GI: Other SPARES SCHEDULER: None : None HEENT: None Psych: Anxiety Musculoskeletal: None Derm: None - Past Surgical History Past Surgical History: Yes General: Cholecystectomy, Appendectomy - Present Medications Home Medications: Ambulatory Orders Medication Instructions Recorded Confirmed Sumatriptan [Imitrex] 1 spray KENA Q2H PRN #10 spray MDD 03/07/19 09/24/20 4 SPRAY/24HRS oxyCODONE [Roxicodone] 5 mg PO Q4-6H PRN #10 tablet 03/07/19 09/24/20 Promethazine Supp [Phenergan Supp] 25 mg [place] Q6HR PRN #14 supp 01/27/20 09/24/20 LORazepam [Ativan] 1 mg PO Q8H PRN #15 tablet 07/30/20 09/24/20 Ondansetron Odt [Zofran] 4 mg TL Q6H PRN #20 tablet 07/30/20 09/24/20 Ondansetron Odt [Zofran Odt] 4 mg TL Q6H PRN #10 tab 09/24/20 - Allergies Allergies/Adverse Reactions: Allergies Allergy/AdvReac Type Severity Reaction Status Date / Time metoclopramide HCl * Allergy Rash Verified 05/02/21 19:52 [From Reglan] - Social History Does the pt smoke?: Yes Smoking Status: Current every day smoker Does the pt drink ETOH?: Yes Does the pt have substance abuse?: No - Immunizations Immunizations are current?: Yes - POLST Patient has POLST: No POLST Status: Full Code PD ED PE NORMAL - Vitals Vital signs reviewed: Yes (Hypertensive) - General General: Alert and oriented X 3, Well developed/nourished - HEENT HEENT: Atraumatic, PERRL, EOMI, Other (The tongue is mildly swollen as if our tissues under the tongue. There is no swelling of the uvula or soft palate.) - Neck Neck: Supple, no meningeal sign, No bony TTP - Cardiac Cardiac: RRR, No murmur - Respiratory Respiratory: No respiratory distress, Clear bilaterally - Abdomen Abdomen: Soft, Non tender - Back Back: No CVA TTP, No spinal TTP - Derm Derm: Normal color, Warm and dry, No rash - Extremities Extremities: No deformity, No edema - Neuro Neuro: Alert and oriented X 3, metaphysicist 2-12 intact, No motor deficit, No sensory deficit, Normal speech Eye Opening: Spontaneous Motor: Obeys Commands Verbal: Oriented GCS Score: 15 - Psych Psych: Normal mood, Normal affect Results - Vitals Vitals: Vital Signs - 24 hr 05/02/21 05/02/21 19:48 21:17 Temperature 36.1 C L Heart Rate 88 75 Respiratory 14 16 Rate Blood Pressure 159/94 H 102/69 O2 Saturation 98 96 Oxygen O2 Source Room air PD MEDICAL DECISION MAKING - ED course Complexity details: reviewed old records, reviewed results, re-evaluated patient, considered differential, d/w patient ED course: 45-year-old female with a prior history of cannabis hyperemesis comes to the emerge department today with swelling of her tongue after being treated yesterday at [facility] for hyperemesis. She is uncertain what counter medications they gave her she states this feels similar to what she is had with metoclopramide. She also is worried about the possibility of a reaction to her [place] or [place] vaccine when she got the second dose of an felt that that was the reason she had to go to [place] yesterday. On evaluation today she has no obstruction to her airway she does have some swelling to her tongue and underneath her tongue which is mild. She is administered dexamethasone 10 mg orally and 25 mg of Benadryl IM Departure - Departure Disposition: Home, Self Care Clinical Impression: Angio-edema Qualifiers: Encounter type: initial encounter Qualified Code(s): T78.3XXA - Angioneurotic edema, initial encounter Condition: Stable Instructions: ED Angioedema Follow-Up: Sergo Martino MD [Primary Care Provider] - Comments: Today it looks like you have some swelling to your tongue that was either a result of some medications given yesterday or a result of your vaccination. In either case the swelling should stay down and the recommendation is to take Benadryl 25 mg every 6 hours for the next 2 days. In addition if you are having symptoms that you think are related to your vaccination take some Tylenol and some extra fluids.
[2021-05-02 22:13] VITALS: BP 110/70
== END 2021-05-02 22:12 | disposition home or self-care (01) ==
LOC: ED 19:44
DX: T78.3XXA Angioneurotic edema, initial encounter (principal); F17.200 Nicotine dependence, unspecified, uncomplicated
CPT/HCPCS: 96372; 99283; A9270; J1200

== ENCOUNTER 2021-08-08 10:15 | Outpatient (CLI) | payer OTHER | END 2021-08-08 10:16 | disposition critical access hospital (66) | LOC: EMS 10:15 | DX: K14.8 Other diseases of tongue (principal) | CPT/HCPCS: A0425; A0427 ==

== ENCOUNTER 2021-08-08 10:30 | Emergency (ER) | payer OTHER ==
[2021-08-08] MEDS ORDERED: FAMOTIDINE 20 MG/2 ML VIAL IVP STA (10:36)
[2021-08-08] MEDS ORDERED: diphenhydrAMINE INJ 50 MG/ML VIAL IVP STA (10:36)
[2021-08-08] MEDS ORDERED: EPINEPHrine 1 MG/ML AMP IM STA (10:36)
[2021-08-08] MEDS ORDERED: methylPREDNISolone SUCCINATE 125 MG/2 ML VIAL IVP STA (10:36)
--- NOTE | 2021-08-08 10:38 | ED Physician Documentation ---
History of Present Illness - Stated complaint Stated Complaint: ALLERGIC REACTION - History obtained from History obtained from: Patient, EMS - Additonal information Additional information: 46-year-old woman with history of cyclic vomiting syndrome, with no possibility of per her presents with tongue swelling that started just prior to arrival. She had not eaten anything. She was just standing in line at the store and developed angioedema both sides of the tongue. She is not on an COCO inhibitor. This has happened once before, the cause is not clear. She did receive 0.3 mg of epinephrine IM at 10:20 AM prehospital. This resulted in no change in her symptoms. Review of Systems Constitutional: reports: Reviewed and negative Eyes: reports: Reviewed and negative Ears: reports: Reviewed and negative Nose: reports: Reviewed and negative PD PAST MEDICAL HISTORY - Past Medical History Cardiovascular: None Respiratory: None Neuro: None Endocrine/Autoimmune: None GI: Other PET TECHNOLOGIST: None : None HEENT: None Psych: Anxiety Musculoskeletal: None Derm: None - Past Surgical History Past Surgical History: Yes General: Cholecystectomy, Appendectomy - Present Medications Home Medications: Ambulatory Orders Medication Instructions Recorded Confirmed Sumatriptan [Imitrex] 1 spray KENA Q2H PRN #10 spray MDD 03/07/19 08/08/21 4 SPRAY/24HRS oxyCODONE [Roxicodone] 5 mg PO Q4-6H PRN #10 tablet 03/07/19 08/08/21 Promethazine Supp [Phenergan Supp] 25 mg [place] Q6HR PRN #14 supp 01/27/20 08/08/21 Ondansetron Odt [Zofran Odt] 4 mg TL Q6H PRN #10 tab 09/24/20 08/08/21 EPINEPHrine [Epinephrine] 0.3 mg IJ ONCE PRN #2 dis.syr 08/08/21 - Allergies Allergies/Adverse Reactions: Allergies Allergy/AdvReac Type Severity Reaction Status Date / Time metoclopramide HCl * Allergy Rash Verified 08/08/21 10:59 [From Roque] - Social History Does the pt smoke?: Yes Smoking Status: Current every day smoker Does the pt drink ETOH?: Yes Does the pt have substance abuse?: No - Immunizations Immunizations are current?: Yes - POLST Patient has POLST: No POLST Status: Full Code PD ED PE NORMAL - Vitals Vital signs reviewed: Yes - General General: Alert and oriented X 3, Other (She is distressed and anxious) - HEENT HEENT: Other (She has significant angioedema of the tongue with difficulty phonating and difficulty handling her secretions.) - Neck Neck: Supple, no meningeal sign, No bony TTP - Cardiac Cardiac: RRR, No murmur - Respiratory Respiratory: No respiratory distress, Clear bilaterally - Abdomen Abdomen: Normal bowel sounds, Soft, Non tender - Back Back: No CVA TTP, No spinal TTP - Derm Derm: Normal color, No rash - Extremities Extremities: No edema, No calf tenderness / cord - Neuro Neuro: Alert and oriented X 3 Results - Vitals Vitals: Vital Signs - 24 hr 08/08/21 08/08/21 08/08/21 10:52 11:03 12:00 Temperature 36.8 C 36.8 C Heart Rate 81 64 74 Respiratory 20 14 23 Rate Blood Pressure 162/116 H 162/116 H 139/80 H O2 Saturation 98 100 99 08/08/21 08/08/21 15:47 15:53 Temperature 36.2 C L Heart Rate 82 81 Respiratory 22 21 Rate Blood Pressure 106/68 O2 Saturation 95 98 Oxygen O2 Source Room air - Labs Labs: Laboratory Tests 08/08/21 08/08/21 08/08/21 12:02 12:02 12:05 WBC 9.6 RBC 4.19 L Hgb 13.4 Hct 40.5 MCV 96.7 MCH 32.0 H MCHC 33.1 RDW 13.1 Plt Count 240 MPV 10.1 Neut # (Auto) 7.2 H Lymph # (Auto) 1.8 [place] # (Auto) 0.4 Eos # (Auto) 0.1 Baso # (Auto) 0.0 Absolute Nucleated RBC 0.00 Nucleated RBC % 0.0 Sodium 139 Potassium 3.8 Chloride 100 L Carbon Dioxide 26 Anion Gap 13.0 BUN 11 Creatinine 0.8 Estimated GFR (MDRD) 77 L Glucose 145 H Calcium 9.5 Nasal Adenovirus (PCR) NOT DETECTED Nasal B. parapertussis DNA (PCR) NOT DETECTED Nasal Coronavir 229E PCR NOT DETECTED Nasal Coronavir HKU1 PCR NOT DETECTED Nasal Coronavir NL63 PCR NOT DETECTED Nasal Coronavir OC43 PCR NOT DETECTED Nasal Enterovir/Rhinovir PCR NOT DETECTED Nasal Influenza B PCR NOT DETECTED Nasal Influenza A PCR NOT DETECTED Nasal Parainfluen 1 PCR NOT DETECTED Nasal Parainfluen 2 PCR NOT DETECTED Nasal Parainfluen 3 PCR NOT DETECTED Nasal Parainfluen 4 PCR NOT DETECTED Nasal RSV (PCR) NOT DETECTED Nasal B.pertussis DNA PCR NOT DETECTED Nasal C.pneumoniae (PCR) NOT DETECTED Kena Human Metapneumo PCR NOT DETECTED Nasal M.pneumoniae (PCR) NOT DETECTED Nasal SARS-CoV-2 (PCR) NOT DETECTED PD MEDICAL DECISION MAKING - ED course ED course: 46-year-old woman presents with idiopathic angioedema of the tongue that was quite impressive on evaluation initially. She had gotten epinephrine prehospital and was given a second dose here as well as IV steroids and Benadryl. Over the first few hours she was monitored very closely for airway compromise. She rapidly improved with this but is having a lot of anxiety and was administered some IV Ativan. She was quite sedated for some time but had no airway issues after this and was observed for approximately 6 hours without any recurrence of the angioedema. Departure - Departure Disposition: 01 Home, Self Care Clinical Impression: Angioedema of tongue Condition: Good Record reviewed to determine appropriate education?: Yes Instructions: ED Allergic Reaction General Other, Epinephrine injection Auto- injector Prescriptions: EPINEPHrine [Epinephrine] 0.3 mg IJ ONCE PRN #2 dis.syr PRN Reason: Allergy Symptoms Comments: You were seen today for significant tongue swelling of unclear cause. After the administration of IV steroids and Benadryl and 2 doses of intramuscular epinephrine it seems to have resolved pretty much completely. You were observed for quite some time to make sure that it did not recur. You did get some IV Ativan as well for significant anxiety. Reasonable to follow-up with an salvage engineer, talk with your primary care physician about a referral. In the interim I am prescribing an EpiPen, if symptoms recur please use it and call 911 and seek emergency medical care.
[2021-08-08] MEDS ORDERED: LORazepam 2 MG/ML VIAL IVP STA (10:51)
[2021-08-08 12:16] LABS: BASOPHILS % (AUTO) 0.3 %; EOSINOPHILS # (AUTO) 0.1 10^3/uL (0.0-0.7); HCT - HEMATOCRIT 40.5 % (37.0-47.0); HGB - HEMOGLOBIN 13.4 g/dL (12.0-16.0); LYMPHOCYTES # (AUTO) 1.8 10^3/uL (1.5-3.5); LYMPHOCYTES % (AUTO) 18.6 %; MEAN CORPUSCULAR HGB CONC 33.1 g/dL (32.0-36.0); MEAN CORPUSCULAR VOLUME 96.7 fL (81.0-99.0); MEAN PLATELET VOLUME 10.1 fL (7.9-10.8); MONOCYTES # (AUTO) 0.4 10^3/uL (0.0-1.0); MONOCYTES % (AUTO) 4.6 %; NEUTROPHILS # (AUTO) 7.2 10^3/uL (1.5-6.6); NEUTROPHILS % (AUTO) 75.2 %; PLT - PLATELET COUNT 240 10^3/uL (130-450); RED BLOOD COUNT 4.19 10^6/uL (4.20-5.40); RED CELL DISTRIBUTION WIDTH 13.1 % (12.0-15.0); WHITE BLOOD COUNT 9.6 x10^3/uL (4.8-10.8)
[2021-08-08 12:20] LABS: CALCIUM 9.5 mg/dL (8.5-10.3); CREATININE 0.8 mg/dL (0.4-1.0); POTASSIUM 3.8 mmol/L (3.5-5.0)
[2021-08-08 13:14] LABS: B. PARAPERTUSSIS- RESP PCR PAN NOT DETECTED; B. PERTUSSIS- RESP PCR PANEL NOT DETECTED; C. PNEUMONIAE- RESP PCR PANEL NOT DETECTED; CORONAVIRUS 229E-RESP PCR NOT DETECTED; CORONAVIRUS HKU1-RESP PCR NOT DETECTED; CORONAVIRUS NL63-RESP PCR NOT DETECTED; CORONAVIRUS OC43-RESP PCR NOT DETECTED; HUMAN METAPNEUMOVIRUS NOT DETECTED; INFLUENZA A- RESP PCR PANEL NOT DETECTED; INFLUENZA B - RESP PCR PANEL NOT DETECTED; M. PNEUMONIAE- RESP PCR PANEL NOT DETECTED; PARAINFLUENZA VIRUS 1 NOT DETECTED; PARAINFLUENZA VIRUS 2 NOT DETECTED; PARAINFLUENZA VIRUS 3 NOT DETECTED; PARAINFLUENZA VIRUS 4 NOT DETECTED; RHINOVIRUS/ENTEROVIRUS NOT DETECTED; RSV- RESP PCR PANEL NOT DETECTED; SARS-CoV-2 -RESP PCR PANEL NOT DETECTED
[2021-08-08 16:02] VITALS: BP 119/77
== END 2021-08-08 16:15 | disposition home or self-care (01) ==
LOC: EDUNIT# → ED 10:30
DX: T78.3XXA Angioneurotic edema, initial encounter (principal); F41.9 Anxiety disorder, unspecified; F17.200 Nicotine dependence, unspecified, uncomplicated; Z20.822 Contact with and (suspected) exposure to COVID-19
CPT/HCPCS: 0202U; 36415; 80048; 85025; 96372; 96374; 96375; 99283; 99284; J1200; J2060

== ENCOUNTER 2021-10-11 15:08 | Outpatient (CLI) | payer OTHER | END 2021-10-11 15:09 | disposition critical access hospital (66) | LOC: EMS 15:08 | DX: T78.3XXA Angioneurotic edema, initial encounter (principal) | CPT/HCPCS: A0425; A0429 ==

== ENCOUNTER 2021-10-11 15:29 | Emergency (ER) | payer OTHER ==
[2021-10-11] MEDS ORDERED: DEXAMETHASONE 10 MG/ML VIAL IVP STA (15:36)
[2021-10-11] MEDS ORDERED: EPINEPHrine 1 MG/ML AMP IM STA (15:37)
[2021-10-11] MEDS ORDERED: LORazepam 2 MG/ML VIAL IVP STA (15:40)
[2021-10-11] MEDS ORDERED: LORazepam 2 MG/ML VIAL IM STA (15:44)
[2021-10-11] MEDS ORDERED: DEXAMETHASONE 10 MG/ML VIAL IM STA (15:44)
--- NOTE | 2021-10-11 15:56 | ED Physician Documentation ---
History of Present Illness - Stated complaint Stated Complaint: SWOLLEN TONGUE - Chief complaint Chief Complaint: Allergic Rx - History obtained from History obtained from: Patient - History of Present Illness Timing: Today Pain level max: 0 Pain level now: 0 - Additonal information Additional information: 46-year-old female presents to the emergency department complaint of tongue swelling for the past 8 hours. She is able to speak and swallow. Nothing makes it better or worse. She states similar episode about 3 months ago. Unknown cause. Denies any medications at home. No itching. No stridor. No wheezing. Took Benadryl at home. History of tardive dyskinesia from [employer]. 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 : None HEENT: None Psych: Anxiety Musculoskeletal: None Derm: None - Past Surgical History Past Surgical History: Yes General: Cholecystectomy, Appendectomy - Present Medications Home Medications: Ambulatory Orders Medication Instructions Recorded Confirmed Sumatriptan [Imitrex] 1 spray KENA Q2H PRN #10 spray MDD 03/07/19 08/08/21 4 SPRAY/24HRS oxyCODONE [Roxicodone] 5 mg PO Q4-6H PRN #10 tablet 03/07/19 08/08/21 Promethazine Supp [Phenergan Supp] 25 mg [place] Q6HR PRN #14 supp 01/27/20 08/08/21 Ondansetron Odt [Zofran Odt] 4 mg TL Q6H PRN #10 tab 09/24/20 08/08/21 EPINEPHrine [Epinephrine] 0.3 mg IJ ONCE PRN #2 dis.syr 08/08/21 predniSONE [Deltasone] 40 mg PO DAILY #10 tablet 10/11/21 - Allergies Allergies/Adverse Reactions: Allergies Allergy/AdvReac Type Severity Reaction Status Date / Time metoclopramide HCl * Allergy Rash Verified 10/11/21 15:38 [From [facility]] - Social History Does the pt smoke?: Yes Smoking Status: Current every day smoker Does the pt drink ETOH?: Yes Does the pt have substance abuse?: No - Immunizations Immunizations are current?: Yes - POLST Patient has POLST: No POLST Status: Full Code PD ED PE NORMAL - Vitals Vital signs reviewed: Yes - General General: Alert and oriented X 3, No acute distress, Well developed/nourished - HEENT HEENT: PERRL, Moist mucous membranes, Other (Able to speak in clear sentences, normal phonation. Tongue is not protruding. She is able to retract the tongue fully inside her mouth.) - Cardiac Cardiac: RRR, Strong equal pulses - Respiratory Respiratory: No respiratory distress, Clear bilaterally - Abdomen Abdomen: Soft, Non tender, Non distended - Derm Derm: Warm and dry, No rash - Extremities Extremities: No edema - Neuro Neuro: Alert and oriented X 3 - Psych Psych: Normal mood, Normal affect Results - Vitals Vitals: Vital Signs - 24 hr 10/11/21 10/11/21 10/11/21 15:35 15:56 16:07 Temperature 36.6 C 36.5 C Heart Rate 92 70 73 Respiratory 20 20 16 Rate Blood Pressure 135/102 H 135/102 H 120/98 H O2 Saturation 100 100 99 10/11/21 10/11/21 16:30 17:00 Temperature 36.5 C 36.5 C Heart Rate 72 70 Respiratory 16 16 Rate Blood Pressure 120/88 H 122/86 H O2 Saturation 100 100 Oxygen O2 Source Room air PD MEDICAL DECISION MAKING - ED course Complexity details: re-evaluated patient, considered differential, d/w patient ED course: Patient was given dexamethasone and Ativan. Feels much better. Still has normal phonation. Tongue is not protruding from the mouth and is able to speak clearly. We will trial on steroids for home and have her follow-up with her doctor for further care. Patient counseled regarding signs and symptoms for which I believe and urgent re-evaluation would be necessary. Patient with good understanding of and agreement to plan and is comfortable going home at this time This document was made in part using voice recognition software. While efforts are made to proofread this document, sound alike and grammatical errors may occur. Departure - Departure Disposition: 01 Home, Self Care Clinical Impression: Angioedema of tongue Condition: Good Instructions: ED Angioedema Follow-Up: Sergo Martino MD [Primary Care Provider] - Within 1 week Prescriptions: predniSONE [Deltasone] 40 mg PO DAILY #10 tablet Comments: Please follow-up with your doctor for further care. Your prescription was sent to [facility] [[email or web address] in [place]. Return if you worsen Discharge Date/Time: 10/11/21 17:09
[2021-10-11 17:03] VITALS: BP 122/86
== END 2021-10-11 17:09 | disposition home or self-care (01) ==
LOC: EDUNIT# → ED 15:29
DX: T78.3XXA Angioneurotic edema, initial encounter (principal); F17.200 Nicotine dependence, unspecified, uncomplicated
CPT/HCPCS: 96372; 99282; 99283; J2060

== ENCOUNTER 2021-12-11 14:54 | Inpatient (IN) | payer OTHER ==
[2021-12-11] MEDS ORDERED: ONDANSETRON ODT 4 MG TABLET TL STA (15:02)
--- OUTSIDE RECORDS SUMMARY | 2021-12-11 15:16 | EXTERNAL MEDICAL SUMMARY RPT | Continuity of Care Document ---
:1975 Author Organization [facility] Address [address] [place] [address] Phone Care Team Providers Name Role Phone Brentallison Unavailable Unavailable MA-C Unavailable Unavailable PFS Unavailable Unavailable MD Unavailable Unavailable Allergies No information. Encounters No information. Medications date description facility 20211106 hydrocodone-acetaminophen All 20211106 cephalexin All 20211106 hydrocodone-acetaminophen All 20211106 cephalexin All 20211106 hydrocodone-acetaminophen All 20211106 cephalexin All 20211103 Lorazepam 0.5 MG Oral Tablet [facility] Problems date description facility 20211106 Laceration without foreign body of left little finger without All damage to nail, initial encounter 20211106 Laceration of finger All 20211106 Contusion of left little finger All 20211106 Contusion of left little finger without damage to nail, All initial encounter 20211106 FINGER3 VIEW All Procedures date description facility 20211106 Med Administration (PO-SL-IN-W[place]) All 20211106 Ketorolac Tromethamine 60 mg/2 ml Soln All 20211106 Surgical Tray All 20211106 IM or SQ Injection All 20211106 Boostrix Intramuscular Suspension 5-2.5 -18.5 All 20211106 First Vx - Ix admin via ID IM or jet in jects without All counseling by physician 20211106 LAC REP, superficial ,scalp,neck,axillae ,ext All genitalia,trunk,extrem. 2.5cm or < 20211106 Med Administration (PO-SL-IN-[place]) All 20211106 Ketorolac Tromethamine 60 mg/2 ml Soln All 20211106 Surgical Tray All 20211106 IM or SQ Injection All 20211106 Boostrix Intramuscular Suspension 5-2.5 -18.5 All 20211106 First Vx - Ix admin via ID IM or jet in jects without All counseling by physician 20211106 LAC REP, superficial ,scalp,neck,axillae ,ext All genitalia,trunk,extrem. 2.5cm or < 20211106 Med Administration (PO-SL-IN-WI) All 20211106 Ketorolac Tromethamine 60 mg/2 ml Soln All 20211106 Surgical Tray All 20211106 IM or SQ Injection All 20211106 Boostrix Intramuscular Suspension 5-2.5 -18.5 All 20211106 First Vx - Ix admin via ID IM or jet in jects without All counseling by physician 20211106 LAC REP, superficial ,scalp,neck,axillae ,ext All genitalia,trunk,extrem. 2.5cm or < 20211102 General Physician [facility] 20211102 [facility] 20211102 Diagnosis [facility] Results No information. Vital Signs date measurement value source 20211102 weight_standard 62 lb 20211102 weight_metric 28.12 kg 20211102 temperature_standard 97.5 F 20211102 temperature_metric 36.39 C 20211102 respiration_rate 25 /min 20211102 height_standard 70 in 20211102 height_metric 177.8 cm 20211102 heart_rate 87 /min 20211102 BP_systolic 122 mm[Hg] 20211102 BP_diastolic 60 mm[Hg] 20211103 temperature_standard 98.5 F 20211103 temperature_metric 36.94 C 20211103 respiration_rate 18 /min 20211103 heart_rate 66 /min 20211103 BP_systolic 143 mm[Hg] 20211103 BP_diastolic 96 mm[Hg]
[2021-12-11] MEDS ORDERED: SODIUM CHLORIDE 0.9% 1,000 ML IV STA (16:20)
[2021-12-11] MEDS ORDERED: LORazepam 2 MG/ML VIAL IVP STA (16:20)
[2021-12-11] MEDS ORDERED: diphenhydrAMINE INJ 50 MG/ML VIAL IVP STA (16:20)
[2021-12-11] MEDS ORDERED: DROPERIDOL 5 MG/2 ML VIAL IVP STA (16:23)
--- NOTE | 2021-12-11 16:23 | ED Physician Documentation ---
PD HPI NVD - Stated complaint Stated Complaint: VOMITTING - Chief complaint Chief Complaint: Abd Pain - History obtained from History obtained from: Patient - History of Present Illness Timing - onset: How many days ago (2) Timing - duration: Days (2) Timing - details: Gradual onset, Still present, Waxing and waning Associated symptoms: Abdominal pain Contributing factors: Other (history of cyclical vomiting syndrome) Improved by: Vomiting, Meds Similar symptoms before: Diagnosis (cyclical vomiting, canabis hyperemesis, abdominal migraine.) Recently seen: Not recently seen - Additonal information Additional information: 46-year-old female with a more than 20-year history of cyclical vomiting has developed symptoms again. She has been sick for about 2 days and presents to the emergency department with abdominal pain and intractable vomiting. She has previously been diagnosed with cyclical vomiting, cannabis hyperemesis and abdominal migraine. She has responded to a number of treatments usually including some antianxiety such as Ativan and pain medication. 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 : None HEENT: None Psych: Anxiety Musculoskeletal: None Derm: None - Past Surgical History Past Surgical History: Yes General: Cholecystectomy, Appendectomy - Present Medications Home Medications: Ambulatory Orders Medication Instructions Recorded Confirmed Sumatriptan [Imitrex] 1 spray KENA Q2H PRN #10 spray MDD 03/07/19 08/08/21 4 SPRAY/24HRS oxyCODONE [Roxicodone] 5 mg PO Q4-6H PRN #10 tablet 03/07/19 08/08/21 Promethazine Supp [Phenergan Supp] 25 mg [place] Q6HR PRN #14 supp 01/27/20 08/08/21 Ondansetron Odt [Zofran Odt] 4 mg TL Q6H PRN #10 tab 09/24/20 08/08/21 EPINEPHrine [Epinephrine] 0.3 mg IJ ONCE PRN #2 dis.syr 08/08/21 predniSONE [Deltasone] 40 mg PO DAILY #10 tablet 10/11/21 - Allergies Allergies/Adverse Reactions: Allergies Allergy/AdvReac Type Severity Reaction Status Date / Time metoclopramide HCl * Allergy Rash Verified 12/11/21 15:01 [From [facility]] - Social History Does the pt smoke?: Yes Smoking Status: Current every day smoker Does the pt drink ETOH?: Yes Does the pt have substance abuse?: No - Immunizations Immunizations are current?: Yes - POLST Patient has POLST: No POLST Status: Full Code PD ED PE NORMAL - Vitals Vital signs reviewed: Yes (Hypertensive and tachycardic) - General General: Well developed/nourished, Other (The patient appears withdrawn and in pain) - HEENT HEENT: Atraumatic, PERRL, EOMI - Neck Neck: Supple, no meningeal sign, No bony TTP - Cardiac Cardiac: No murmur, Other (Tachycardic and irregular) - Respiratory Respiratory: No respiratory distress, Clear bilaterally - Abdomen Abdomen: Normal bowel sounds, Soft, Non distended, No organomegaly, Other (Mild generalized tenderness without specific tenderness) - Back Back: No CVA TTP, No spinal TTP - Derm Derm: Normal color, Warm and dry, No rash - Extremities Extremities: No deformity, No edema - Neuro Neuro: Alert and oriented X 3, jewel staker 2-12 intact, No motor deficit, No sensory deficit, Normal speech Eye Opening: Spontaneous Motor: Obeys Commands Verbal: Oriented GCS Score: 15 - Psych Psych: Normal affect, Other (Mood is withdrawn) Results - Vitals Vitals: Vital Signs - 24 hr 12/11/21 12/11/21 12/11/21 14:57 16:18 17:09 Temperature 36.4 C L 37.1 C Heart Rate 104 H 109 H 90 Respiratory 24 18 20 Rate Blood Pressure 153/107 H 164/84 H 165/71 H O2 Saturation 97 95 95 Oxygen O2 Source Room air PD MEDICAL DECISION MAKING - ED course Complexity details: reviewed old records, reviewed results, re-evaluated patient, considered differential, d/w patient ED course: 46-year-old female with a history of cyclical vomiting presents to the emergency department after 2 days of symptoms she is significantly dehydrated and medications for treatment are ordered. She is a difficult IV start and I have had to consult a physician with higher skill level to provide IV access.Thankfully Dr. Arce was in the department and provided the service for us. Is initially treated with intravenous Ativan droperidol Benadryl and saline. At shift change the patient is sleeping comfortably with IV saline running. She is no longer vomiting. Her care is turned over to Dr. Arce anticipating discharge to home
--- NOTE | 2021-12-11 16:56 | ED Physician Documentation ---
ED Addendum - Addendum Addendum: 12/11/21 16:55 She was difficult for access and the nurse had tried and failed to obtain access. I personally placed a long 22-gauge IV in the right cephalic vein using real-time ultrasound guidance after ChloraPrep which flushed and missael well.
[2021-12-11 17:07] LABS: BASOPHILS % (AUTO) 0.3 %; HCT - HEMATOCRIT 42.2 % (37.0-47.0); HGB - HEMOGLOBIN 14.3 g/dL (12.0-16.0); LYMPHOCYTES # (AUTO) 0.9 10^3/uL (1.5-3.5); LYMPHOCYTES % (AUTO) 7.8 %; MEAN CORPUSCULAR HEMOGLOBIN 31.3 pg (27.0-31.0); MEAN CORPUSCULAR HGB CONC 33.9 g/dL (32.0-36.0); MEAN CORPUSCULAR VOLUME 92.3 fL (81.0-99.0); MEAN PLATELET VOLUME 9.9 fL (7.9-10.8); MONOCYTES # (AUTO) 0.7 10^3/uL (0.0-1.0); MONOCYTES % (AUTO) 6.1 %; NEUTROPHILS # (AUTO) 9.9 10^3/uL (1.5-6.6); NEUTROPHILS % (AUTO) 85.3 %; PLT - PLATELET COUNT 297 10^3/uL (130-450); RED BLOOD COUNT 4.57 10^6/uL (4.20-5.40); RED CELL DISTRIBUTION WIDTH 12.3 % (12.0-15.0); WHITE BLOOD COUNT 11.6 x10^3/uL (4.8-10.8)
[2021-12-11 17:27] LABS: ALBUMIN 5.3 g/dL (3.2-5.5); ALBUMIN/GLOBULIN RATIO 1.3 (1.0-2.2); BILIRUBIN,TOTAL 1.3 mg/dL (0.2-1.0); CALCIUM 11.1 mg/dL (8.5-10.3); CREATININE 1.3 mg/dL (0.4-1.0); TOTAL PROTEIN 9.5 g/dL (6.7-8.2)
[2021-12-11 17:28] LABS: POTASSIUM 2.3 mmol/L (3.5-5.0)
[2021-12-11] MEDS ORDERED: POTASSIUM CHLOR 10 MEQ/100 ML 10 MEQ/100 ML BAG IV STA ×3 (17:29→20:20)
[2021-12-11] MEDS: POTASSIUM CHLORIDE 20 MEQ TABLET PO STA ×2 (18:47→21:24)
[2021-12-11] MEDS ORDERED: LACTATED RINGERS 1,000 ML IV STA (20:20)
--- NOTE | 2021-12-11 20:23 | ED Physician Documentation ---
ED Addendum - Addendum Addendum: 12/11/21 20:[address] Jaimson at shift change. Briefly this is a 46-year-old woman with probably cannabinoid hyperemesis. At shift change she had already been administered medications including Ativan, droperidol, and Benadryl. She was quite somnolent after that and could not be aroused to take oral potassium. Her work-up demonstrates profound hypokalemia which was repleted IV. She was unable to take oral potassium. As such we are placing her in observation for continued IV potassium repletion and repeat labs in the morning. Dr. Celeste to accept today 20 3 PM. Disposition: Place in observation condition: Stable Diagnoses: 1. Cannabinoid hyperemesis 2. Vomiting 3. Hypokalemia
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
[2021-12-11] MEDS ORDERED: NS W/20 MEQ KCL 1,000 ML IV SCH (21:00)
[2021-12-11] MEDS: POTASSIUM CHLOR 10 MEQ/100 ML 10 MEQ/100 ML BAG IV SCH (21:33)
[2021-12-12] MEDS: POTASSIUM CHLOR 10 MEQ/100 ML 10 MEQ/100 ML BAG IV SCH ×2 (01:47→05:20)
[2021-12-12] MEDS: SODIUM CHLORIDE FLUSH 0.9% 10 ML SYRINGE IVP SCH ×5 (02:20→22:40)
[2021-12-12 05:04] LABS: BASOPHILS % (AUTO) 0.3 %; EOSINOPHILS % (AUTO) 0.3 %; HGB - HEMOGLOBIN 13.6 g/dL (12.0-16.0); LYMPHOCYTES # (AUTO) 1.9 10^3/uL (1.5-3.5); LYMPHOCYTES % (AUTO) 20.3 %; MEAN CORPUSCULAR HEMOGLOBIN 31.4 pg (27.0-31.0); MEAN CORPUSCULAR HGB CONC 33.2 g/dL (32.0-36.0); MEAN CORPUSCULAR VOLUME 94.7 fL (81.0-99.0); MEAN PLATELET VOLUME 10.4 fL (7.9-10.8); MONOCYTES # (AUTO) 0.7 10^3/uL (0.0-1.0); MONOCYTES % (AUTO) 7.1 %; NEUTROPHILS # (AUTO) 6.9 10^3/uL (1.5-6.6); NEUTROPHILS % (AUTO) 71.7 %; PLT - PLATELET COUNT 260 10^3/uL (130-450); RED BLOOD COUNT 4.33 10^6/uL (4.20-5.40); RED CELL DISTRIBUTION WIDTH 12.9 % (12.0-15.0); WHITE BLOOD COUNT 9.6 x10^3/uL (4.8-10.8)
[2021-12-12 05:15] LABS: CALCIUM 9.3 mg/dL (8.5-10.3); CREATININE 0.8 mg/dL (0.4-1.0); POTASSIUM 2.7 mmol/L (3.5-5.0)
[2021-12-12] MEDS ORDERED: POTASSIUM CHLORIDE 20 MEQ TABLET PO ONE ×3 (06:31→16:07)
[2021-12-12 08:02] LABS: HCG,QUALITATIVE BLOOD NEGATIVE
[2021-12-12 08:10] LABS: MUDS CUTOFF CONCENTRATIONS CUTOFF CONC BELOW:
[2021-12-12 08:13] LABS: BILIRUBIN,URINE NEGATIVE (NEGATIVE); GLUCOSE, URINE (UA) NEGATIVE (NEGATIVE); KETONES,URINE (UA) NEGATIVE (NEGATIVE); LEUKOCYTE ESTERASE, URINE NEGATIVE (NEGATIVE); NITRITE,URINE NEGATIVE (NEGATIVE); OCCULT BLOOD,URINE SMALL (NEGATIVE); PH,URINE 7.5 PH (5.0-7.5); PROTEIN,URINE 100 mg/dL (NEGATIVE); UROBILINOGEN,URINE 0.2 (NORMAL) E.U./dL (NORMAL)
[2021-12-12 08:16] LABS: CLARITY,URINE CLEAR (CLEAR)
[2021-12-12 08:29] LABS: BACTERIA,URINE Few /HPF (None Seen); SQUAMOUS EPITHELIAL CELL,UR MANY Squamous (<= Few)
[2021-12-12 08:30] LABS: AMPHETAMINE SCREEN,URINE NEGATIVE (NEGATIVE); BARBITURATE SCREEN,UR NEGATIVE (NEGATIVE); BENZODIAZEPINES SCREEN, URINE POSITIVE (NEGATIVE); CASTS, URINE 3-5 Hyaline Casts /LPF; COCAINE SCREEN URINE POSITIVE (NEGATIVE); METHADONE SCREEN, URINE NEGATIVE (NEGATIVE); METHAMPHETAMINES SCREEN, URINE NEGATIVE (NEGATIVE); OPIATE SCREEN, URINE NEGATIVE (NEGATIVE); OXYCODONE SCREEN, URINE NEGATIVE (NEGATIVE); PROPOXYPHENE SCREEN, URINE NEGATIVE (NEGATIVE); THC CANNABINOID SCREEN, URINE POSITIVE (NEGATIVE); TRICYCLIC ANTIDEPRESSANT,URINE NEGATIVE (NEGATIVE)
[2021-12-12] MEDS: SODIUM CHLORIDE FLUSH 0.9% 10 ML SYRINGE IVP PRN ×2 (10:13→16:06)
[2021-12-12] MEDS: PANTOPRAZOLE 40 MG VIAL IVP SCH (10:13)
[2021-12-12] MEDS: ONDANSETRON 4 MG/2 ML VIAL IVP PRN ×3 (10:13→20:57)
[2021-12-12] MEDS: POTASSIUM CHLORIDE INJ 40 MEQ in DEXTROSE 5%-0.45% NACL 980 ML IV SCH ×2 (10:34→18:36)
[2021-12-12 11:46] LABS: HCG UR QUAL NEGATIVE
[2021-12-12] MEDS: hydrALAZINE INJ 20 MG/ML VIAL IVP PRN (11:46)
[2021-12-12] MEDS: PROMETHAZINE 25 MG/1 ML VIAL IM PRN ×2 (11:55→18:36)
--- NOTE | 2021-12-12 12:40 | PHARMACY PROGRESS NOTE ---
- Best Possible Medication History Admit Date and Time: 12/11/212023 Processed by: Pharmacy Medication History completed: Yes Patient Interview: Completed Secondary Source(s): Insurance records, Previous admit records As the person ultimately responsible for medication therapy, providers are able to order a medication from an existing home medication list in [facility] via the "Reconcile Routine" prior to Confirmation of that medication by network support specialist. Such practice is discouraged except when the physician, in their clinical judgment, deems that a medical need exists for a medication without regard to previous use.
--- NOTE | 2021-12-12 16:18 | PROVIDER PROGRESS NOTE ---
Assessment/Plan - Problem List (1) Cannabinoid hyperemesis syndrome Assessment/Plan: pt still present nausea, vomiting is better controlled. pt has hx of cyclical vomiting syndrome for 20 yrs, pt also report she is heavy marijuana user, UDS test is positive for Marijuana, cocaine and benzo. Continue antiemesis as needed, continue intravenous IV fluids, advance diet as patient tolerated (2) Hypokalemia Conclusion/Plan: improved. K is 3.4, it is Likely due to vomiting related to cannabinoid hyperemesis syndrome. continue replacement with PO potassium since pt refused to have IV of potassium and does not tolerate IV potassium, continue D5 1/2 NS with potassium which pt tolerated, continue lab monitor (3)illicit drug usage UDS test is positive for Marijuana, cocaine and benzo. advise pt quit illicit drug - Current Meds Current Meds: Current Medications Generic Name Dose Route Start Last Admin Trade Name Freq PRN Reason Stop Dose Admin Hydralazine HCl 10 mg 12/12/21 07:37 12/12/21 11:46 Hydralazine Inj 20 Mg/Ml Vial IVP 10 mg QID PRN Administration Hypertensive Emergency Potassium Chloride 40 meq/ 1,000 mls @ 100 mls/hr 12/12/21 08:00 12/12/21 13:14 Dextrose/Sodium Chloride IV Infused .Q10H [facility] Infusion Ondansetron HCl 4 mg 12/11/21 20:24 12/12/21 16:05 Ondansetron 4 Mg/2 Ml Vial IVP 4 mg Q6HR PRN Administration Nausea / Vomiting Pantoprazole Sodium 40 mg 12/12/21 08:00 12/12/21 10:13 Pantoprazole 40 Mg Vial IVP 40 mg QDAC [facility] Administration Promethazine HCl 25 mg 12/11/21 20:24 12/12/21 11:55 Promethazine 25 Mg/1 Ml Vial IM 25 mg Q6HR PRN Administration Nausea / Vomiting Sodium Chloride 10 ml 12/11/21 20:24 12/12/21 16:06 Sodium Chloride Flush 0.9% 10 Ml Syringe IVP 10 ml PRN PRN Administration NEEDED PER PROVIDER ORDERS Sodium Chloride 10 ml 12/12/21 01:00 12/12/21 09:41 Sodium Chloride Flush 0.9% 10 Ml Syringe IVP 10 ml 0100,0900,1700 [facility] Administration - Lab Result Fish Bone Diagrams: 12/12/21 04:37 12/12/21 15:01 - Additional Planning My Orders: My Active Orders 12/12/21 07:37 hydrALAZINE INJ [Apresoline Inj] 10 mg IVP QID PRN 12/12/21 08:00 Dextrose 5%-0.45% NaCl [D5.45ns] 980 ml Potassium Chloride Inj [Potassium Chloride] 40 meq IV 100 mls/hr Pantoprazole [Protonix] 40 mg IVP QDAC 12/12/21 Dinner Soft (Low Fiber) Diet [DIET] Subjective - Subjective Patient Reports: Resting Comfortably Objective Vital Signs: Vital Signs - 24 hr 12/11/21 12/11/21 12/11/21 16:18 17:09 18:58 Temperature 37.1 C Heart Rate 109 H 90 109 H Heart Rate [ Brachial] Respiratory 18 20 22 Rate Blood Pressure 164/84 H 165/71 H 137/98 H Blood Pressure [Left Brachial artery] Blood Pressure [Right Brachial artery] O2 Saturation 95 95 98 12/11/21 12/11/21 12/11/21 19:09 19:42 20:30 Temperature 36.9 C Heart Rate 105 H 97 76 Heart Rate [ Brachial] Respiratory 16 16 15 Rate Blood Pressure 120/74 128/76 Blood Pressure [Left Brachial artery] Blood Pressure [Right Brachial artery] O2 Saturation 97 99 97 12/11/21 12/12/21 12/12/21 21:15 04:00 07:41 Temperature 37.9 C 36.3 C L 37.1 C Heart Rate Heart Rate [ 88 78 72 Brachial] Respiratory 19 20 20 Rate Blood Pressure Blood Pressure 172/85 H [Left Brachial artery] Blood Pressure 178/100 H 161/106 H [Right Brachial artery] O2 Saturation 96 93 93 12/12/21 12/12/21 12/12/21 11:36 11:46 12:16 Temperature 36.3 C L Heart Rate Heart Rate [ 71 Brachial] Respiratory 22 Rate Blood Pressure 172/107 H 129/76 Blood Pressure 172/107 H [Left Brachial artery] Blood Pressure [Right Brachial artery] O2 Saturation 99 12/12/21 16:09 Temperature 36.9 C Heart Rate Heart Rate [ 76 Brachial] Respiratory 16 Rate Blood Pressure Blood Pressure [Left Brachial artery] Blood Pressure 127/81 H [Right Brachial artery] O2 Saturation 100 Oxygen O2 Source Room air I&O (Last 24 Hrs): Intake and Output Totals x24h 12/10/21 12/11/21 12/12/21 23:59 23:59 23:59 Intake Total 8596.234 7021.344 Output Total 1300 Balance 1527.916 -271.656 General: Alert, Oriented x3, No acute distress HEENT: Atraumatic Neck: Supple Lymphatic: no adenopathy Neuro: Alert, Non Focal, Oriented Times 3 Cardiovascular: Regular rate, Normal S1, Normal S2 Respiratory: Chest non-tender, No respiratory distress Abdomen: Normal bowel sounds, Soft Extremities: Normal pulses - Results Results: Laboratory Results WBC 9.6 x10^3/uL (4.8-10.8) 12/12/21 04:37 RBC 4.33 10^6/uL (4.20-5.40) 12/12/21 04:37 Hgb 13.6 g/dL (12.0-16.0) 12/12/21 04:37 Hct 41.0 % (37.0-47.0) 12/12/21 04:37 MCV 94.7 fL (81.0-99.0) 12/12/21 04:37 MCH 31.4 pg (27.0-31.0) H 12/12/21 04:37 MCHC 33.2 g/dL (32.0-36.0) 12/12/21 04:37 RDW 12.9 % (12.0-15.0) 12/12/21 04:37 Plt Count 260 10^3/uL (130-450) 12/12/21 04:37 MPV 10.4 fL (7.9-10.8) 12/12/21 04:37 Neut # (Auto) 6.9 10^3/uL (1.5-6.6) H 12/12/21 04:37 Lymph # (Auto) 1.9 10^3/uL (1.5-3.5) 12/12/21 04:37 [place] # (Auto) 0.7 10^3/uL (0.0-1.0) 12/12/21 04:37 Eos # (Auto) 0.0 10^3/uL (0.0-0.7) 12/12/21 04:37 Baso # (Auto) 0.0 10^3/uL (0.0-0.1) 12/12/21 04:37 Absolute Nucleated RBC 0.00 x10^3/uL 12/12/21 04:37 Nucleated RBC % 0.0 /100WBC 12/12/21 04:37 Sodium 137 mmol/L (135-145) 12/12/21 04:37 Potassium 3.4 mmol/L (3.5-5.0) L 12/12/21 15:01 Chloride 95 mmol/L (101-111) L 12/12/21 04:37 Carbon Dioxide 29 mmol/L (21-32) 12/12/21 04:37 Anion Gap 13.0 (6-13) 12/12/21 04:37 BUN 15 mg/dL (6-20) 12/12/21 04:37 Creatinine 0.8 mg/dL (0.4-1.0) 12/12/21 04:37 Estimated GFR (MDRD) 77 (>89) L 12/12/21 04:37 Glucose 134 mg/dL (70-100) H 12/12/21 04:37 Calcium 9.3 mg/dL (8.5-10.3) 12/12/21 04:37 Magnesium 2.2 mg/dL (1.7-2.8) 12/11/21 17:00 Total Bilirubin 1.3 mg/dL (0.2-1.0) H 12/11/21 17:00 AST 37 IU/L (10-42) 12/11/21 17:00 ALT 20 IU/L (10-60) 12/11/21 17:00 Alkaline Phosphatase 79 IU/L (42-121) 12/11/21 17:00 Total Protein 9.5 g/dL (6.7-8.2) H 12/11/21 17:00 Albumin 5.3 g/dL (3.2-5.5) 12/11/21 17:00 Globulin 4.2 g/dL (2.1-4.2) 12/11/21 17:00 Albumin/Globulin Ratio 1.3 (1.0-2.2) 12/11/21 17:00 Lipase 39 U/L (22-51) 12/11/21 17:00 Serum HCG, Qual NEGATIVE 12/12/21 04:37 Urine Color YELLOW 12/12/21 07:59 Urine Clarity CLEAR (CLEAR) 12/12/21 07:59 Urine pH 7.5 PH (5.0-7.5) 12/12/21 07:59 Ur Specific [place] 1.020 (1.002-1.030) 12/12/21 07:59 Urine Protein 100 mg/dL (NEGATIVE) H 12/12/21 07:59 Urine Glucose (UA) NEGATIVE mg/dL (NEGATIVE) 12/12/21 07:59 Urine Ketones NEGATIVE mg/dL (NEGATIVE) 12/12/21 07:59 Urine Occult Blood SMALL (NEGATIVE) H 12/12/21 07:59 Urine Nitrite NEGATIVE (NEGATIVE) 12/12/21 07:59 Urine Bilirubin NEGATIVE (NEGATIVE) 12/12/21 07:59 Urine Urobilinogen 0.2 (NORMAL) E.U./dL (NORMAL) 12/12/21 07:59 Ur Leukocyte Esterase NEGATIVE (NEGATIVE) 12/12/21 07:59 Urine RBC 6-10 /HPF (0-5) H 12/12/21 07:59 Urine WBC 4-5 /HPF (0-5) 12/12/21 07:59 Ur Squamous Epith Cells MANY Squamous (<= Few) H 12/12/21 07:59 Urine Bacteria Few /HPF (None Seen) 12/12/21 07:59 Urine Casts 3-5 Hyaline Casts /LPF 12/12/21 07:59 Ur Microscopic Review INDICATED 12/12/21 07:59 Urine Culture Comments NOT INDICATED 12/12/21 07:59 Urine HCG, Qual NEGATIVE 12/12/21 07:59 Urine Opiates Screen NEGATIVE (NEGATIVE) 12/12/21 07:59 Ur Oxycodone Screen NEGATIVE (NEGATIVE) 12/12/21 07:59 Urine Methadone Screen NEGATIVE (NEGATIVE) 12/12/21 07:59 Ur Propoxyphene Screen NEGATIVE (NEGATIVE) 12/12/21 07:59 Ur Barbiturates Screen NEGATIVE (NEGATIVE) 12/12/21 07:59 Ur Tricyclics Screen NEGATIVE (NEGATIVE) 12/12/21 07:59 Ur Phencyclidine Scrn NEGATIVE (NEGATIVE) 12/12/21 07:59 Ur Amphetamine Screen NEGATIVE (NEGATIVE) 12/12/21 07:59 U Methamphetamines Scrn NEGATIVE (NEGATIVE) 12/12/21 07:59 U Benzodiazepines Scrn POSITIVE (NEGATIVE) H 12/12/21 07:59 Urine Cocaine Screen POSITIVE (NEGATIVE) H 12/12/21 07:59 U Cannabinoids Screen POSITIVE (NEGATIVE) H 12/12/21 07:59 SARS-CoV-2 (PCR) NOT DETECTED 12/11/21 20:35 ABX Reporting Has patient been on IV antibiotics over the past 48 hours?: No Current Medications - Current Medications Current Medications: Active Medications Hydralazine HCl (Hydralazine Inj 20 Mg/Ml Vial) 10 mg IVP QID PRN PRN Reason: Hypertensive Emergency Last Admin: 12/12/21 11:46 Dose: 10 mg Potassium Chloride 40 meq/ (Dextrose/Sodium Chloride) 1,000 mls @ 100 mls/hr IV .Q10H [facility] Last Infusion: 12/12/21 13:14 Dose: Infused Ondansetron HCl (Ondansetron 4 Mg/2 Ml Vial) 4 mg IVP Q6HR PRN PRN Reason: Nausea / Vomiting Last Admin: 12/12/21 16:05 Dose: 4 mg Pantoprazole Sodium (Pantoprazole 40 Mg Vial) 40 mg IVP QDAC [facility] Last Admin: 12/12/21 10:13 Dose: 40 mg Promethazine HCl (Promethazine 25 Mg/1 Ml Vial) 25 mg IM Q6HR PRN PRN Reason: Nausea / Vomiting Last Admin: 12/12/21 11:55 Dose: 25 mg Sodium Chloride (Sodium Chloride Flush 0.9% 10 Ml Syringe) 10 ml IVP PRN PRN PRN Reason: NEEDED PER PROVIDER ORDERS Last Admin: 12/12/21 16:06 Dose: 10 ml Sodium Chloride (Sodium Chloride Flush 0.9% 10 Ml Syringe) 10 ml IVP 0100,0900,1700 [facility] Last Admin: 12/12/21 09:41 Dose: 10 ml EPINEPHrine [Epinephrine] 0.3 mg IM ONCE PRN 12/12/21 Ondansetron [Ondansetron Odt] 8 mg PO Q6H PRN 12/12/21 Oxycodone HCl/Acetaminophen [Oxycodone-Acetaminophn 7.5-325] 1 tab PO Q6H PRN 12/12/21
[2021-12-12] MEDS ORDERED: GI COCKTAIL 120 ML BOTTLE PO PRN (22:17)
[2021-12-12] MEDS: diphenhydrAMINE 25 MG CAPSULE PO PRN (22:38)
[2021-12-12] MEDS: PROCHLORPERAZINE 10 MG/2 ML VIAL IVP PRN (22:38)
[2021-12-13] MEDS: hydrALAZINE INJ 20 MG/ML VIAL IVP PRN ×2 (01:33→18:03)
[2021-12-13] MEDS: SODIUM CHLORIDE FLUSH 0.9% 10 ML SYRINGE IVP SCH ×3 (01:34→18:03)
[2021-12-13] MEDS: MAG HYDROX/AL HYDROX/SIMETH 30 ML UDC PO PRN ×2 (01:39→07:07)
[2021-12-13] MEDS: PROMETHAZINE 25 MG/1 ML VIAL IM PRN (01:40)
[2021-12-13] MEDS: ONDANSETRON 4 MG/2 ML VIAL IVP PRN ×3 (03:56→16:39)
[2021-12-13 05:36] LABS: BASOPHILS % (AUTO) 0.3 %; EOSINOPHILS % (AUTO) 0.2 %; HCT - HEMATOCRIT 42.7 % (37.0-47.0); HGB - HEMOGLOBIN 14.4 g/dL (12.0-16.0); LYMPHOCYTES # (AUTO) 2.2 10^3/uL (1.5-3.5); LYMPHOCYTES % (AUTO) 22.9 %; MEAN CORPUSCULAR HEMOGLOBIN 31.6 pg (27.0-31.0); MEAN CORPUSCULAR HGB CONC 33.7 g/dL (32.0-36.0); MEAN CORPUSCULAR VOLUME 93.8 fL (81.0-99.0); MEAN PLATELET VOLUME 10.1 fL (7.9-10.8); MONOCYTES # (AUTO) 0.7 10^3/uL (0.0-1.0); MONOCYTES % (AUTO) 7.1 %; NEUTROPHILS # (AUTO) 6.5 10^3/uL (1.5-6.6); NEUTROPHILS % (AUTO) 69.2 %; PLT - PLATELET COUNT 253 10^3/uL (130-450); RED BLOOD COUNT 4.55 10^6/uL (4.20-5.40); RED CELL DISTRIBUTION WIDTH 12.6 % (12.0-15.0); WHITE BLOOD COUNT 9.4 x10^3/uL (4.8-10.8)
[2021-12-13 05:39] LABS: CALCIUM 9.5 mg/dL (8.5-10.3); CREATININE 0.9 mg/dL (0.4-1.0); POTASSIUM 3.3 mmol/L (3.5-5.0)
[2021-12-13] MEDS: PANTOPRAZOLE 40 MG VIAL IVP SCH (06:17)
[2021-12-13] MEDS: SODIUM CHLORIDE FLUSH 0.9% 10 ML SYRINGE IVP PRN (06:17)
[2021-12-13] MEDS: POTASSIUM CHLORIDE 20 MEQ TABLET PO ONE ×2 (09:13→10:12)
--- NOTE | 2021-12-13 09:50 | CONSULTATION NOTE ---
Consultation Report: consulted by Hospitalist for PIV placement. Attempt x2 to left arm, successfully placed 20 ga PIV to left shoulder
[2021-12-13] MEDS: LACTATED RINGERS 1,000 ML IV SCH ×2 (10:06→21:43)
[2021-12-13] MEDS: oxyCODONE 5 MG TABLET PO PRN ×2 (10:12→21:49)
--- NOTE | 2021-12-13 13:17 | PROVIDER PROGRESS NOTE ---
Assessment/Plan - Problem List (1) Cannabinoid hyperemesis syndrome Assessment/Plan: pt still present nausea and vomiting. she consisted to ask nurse to advance her diet but she can not tolerate now. Explain to pt and she understood now. we will keep pt in clear diet and bowel rest until her nausea and vomiting are controlled, continue IVF Since pt continue to complain of N/V and abdominal pain, we will order CT of abd/pelvis pt still present nausea, vomiting is better controlled. pt has hx of cyclical vomiting syndrome for 20 yrs, pt also report she is heavy marijuana user, UDS test is positive for Marijuana, cocaine and benzo. Continue antiemesis as needed, continue intravenous IV fluids, advance diet as patient tolerated (2) Hypokalemia Conclusion/Plan: improved. K is 3.4, it is Likely due to vomiting related to cannabinoid hyperemesis syndrome. continue replacement with PO potassium since pt refused to have IV of potassium and does not tolerate IV potassium, continue D5 1/2 NS with potassium which pt tolerated, continue lab monitor (3)illicit drug usage UDS test is positive for Marijuana, cocaine and benzo. advise pt quit illicit drug - Current Meds Current Meds: Current Medications Generic Name Dose Route Start Last Admin Trade Name Freq PRN Reason Stop Dose Admin Al Hydroxide/Mg Hydroxide 30 ml 12/12/21 22:44 12/13/21 07:07 Mag Hydrox/Al Hydrox/Simeth 30 Ml Udc PO 30 ml Q4HR PRN Administration INDIGESTION Diphenhydramine HCl 25 mg 12/12/21 22:17 12/12/21 22:38 Diphenhydramine 25 Mg Capsule PO 25 mg QPM PRN Administration Insomnia Hydralazine HCl 10 mg 12/12/21 07:37 12/13/21 01:33 Hydralazine Inj 20 Mg/Ml Vial IVP 10 mg QID PRN Administration Hypertensive Emergency Lactated Ringer's 1,000 mls @ 100 mls/hr 12/13/21 09:00 12/13/21 12:58 Lr IV 0 mls/hr .Q10H [facility] Infusion Ondansetron HCl 4 mg 12/11/21 20:24 12/13/21 10:05 Ondansetron 4 Mg/2 Ml Vial IVP 4 mg Q6HR PRN Administration Nausea / Vomiting Oxycodone HCl 5 mg 12/13/21 09:04 12/13/21 10:12 Oxycodone 5 Mg Tablet PO 5 mg Q4HR PRN Administration PAIN Pantoprazole Sodium 40 mg 12/12/21 08:00 12/13/21 06:17 Pantoprazole 40 Mg Vial IVP 40 mg QDAC [facility] Administration Prochlorperazine Edisylate 10 mg 12/12/21 22:17 12/12/21 22:38 Prochlorperazine 10 Mg/2 Ml Vial IVP 10 mg Q6HR PRN Administration Nausea / Vomiting Promethazine HCl 25 mg 12/11/21 20:24 12/13/21 01:40 Promethazine 25 Mg/1 Ml Vial IM 25 mg Q6HR PRN Administration Nausea / Vomiting Sodium Chloride 10 ml 12/11/21 20:24 12/13/21 06:17 Sodium Chloride Flush 0.9% 10 Ml Syringe IVP 10 ml PRN PRN Administration NEEDED PER PROVIDER ORDERS Sodium Chloride 10 ml 12/12/21 01:00 12/13/21 01:34 Sodium Chloride Flush 0.9% 10 Ml Syringe IVP 10 ml 0100,0900,1700 [facility] Administration - Lab Result Fish Bone Diagrams: 12/13/21 05:23 12/13/21 05:23 - Additional Planning My Orders: My Active Orders 12/13/21 09:00 Lactated Ringers [Lr] 1,000 ml IV 100 mls/hr 12/13/21 09:04 oxyCODONE [Roxicodone] 5 mg PO Q4HR PRN 12/13/21 09:05 LORazepam INJ [Ativan Inj (Vial)] 0.5 mg IVP Q12H PRN 12/13/21 13:11 Admit [Admit \ Transfer \ Status] [RC] .ONCE 12/13/21 Dinner Clear Liquid Diet [DIET] Subjective - Subjective Patient Reports: Abdominal Pain, Nausea Objective Vital Signs: Vital Signs - 24 hr 12/12/21 12/12/21 12/13/21 16:09 20:59 01:10 Temperature 36.9 C 36.8 C 36.5 C Heart Rate [ 76 87 68 Brachial] Heart Rate [ Monitoring electrodes] Respiratory 16 20 20 Rate Blood Pressure Blood Pressure 198/101 H [Left Brachial artery] Blood Pressure 127/81 H 145/85 H [Right Brachial artery] Blood Pressure [right leg] O2 Saturation 100 99 100 12/13/21 12/13/21 12/13/21 01:33 01:45 01:47 Temperature Heart Rate [ 76 74 82 Brachial] Heart Rate [ Monitoring electrodes] Respiratory Rate Blood Pressure Blood Pressure 178/109 H [Left Brachial artery] Blood Pressure [Right Brachial artery] Blood Pressure 184/87 H 199/90 H [right leg] O2 Saturation 12/13/21 12/13/21 12/13/21 01:52 01:55 02:10 Temperature Heart Rate [ 84 88 85 Brachial] Heart Rate [ Monitoring electrodes] Respiratory Rate Blood Pressure Blood Pressure [Left Brachial artery] Blood Pressure [Right Brachial artery] Blood Pressure 185/85 H 194/87 H 182/89 H [right leg] O2 Saturation 12/13/21 12/13/21 12/13/21 02:25 02:27 03:02 Temperature Heart Rate [ Brachial] Heart Rate [ 115 H 97 Monitoring electrodes] Respiratory Rate Blood Pressure 124/60 Blood Pressure [Left Brachial artery] Blood Pressure [Right Brachial artery] Blood Pressure 124/60 [right leg] O2 Saturation 12/13/21 12/13/21 06:05 09:00 Temperature 36.3 C L 36.8 C Heart Rate [ 90 74 Brachial] Heart Rate [ Monitoring electrodes] Respiratory 18 22 Rate Blood Pressure Blood Pressure [Left Brachial artery] Blood Pressure 119/79 128/81 H [Right Brachial artery] Blood Pressure [right leg] O2 Saturation 96 98 Oxygen O2 Source Room air I&O (Last 24 Hrs): Intake and Output Totals x24h 12/11/21 12/12/21 12/13/21 23:59 23:59 23:59 Intake Total 3811.776 4763.344 1786.667 Output Total 1430 1450 Balance 1527.916 528.344 336.667 General: Alert, Oriented x3, Mild distress HEENT: Atraumatic Neck: Supple Lymphatic: no adenopathy Neuro: Alert, Non Focal, Oriented Times 3 Cardiovascular: Regular rate, Normal S1, Normal S2 Respiratory: Chest non-tender, No respiratory distress Abdomen: Normal bowel sounds, Soft Extremities: Normal pulses - Results Results: Laboratory Results WBC 9.4 x10^3/uL (4.8-10.8) 12/13/21 05:23 RBC 4.55 10^6/uL (4.20-5.40) 12/13/21 05:23 Hgb 14.4 g/dL (12.0-16.0) 12/13/21 05:23 Hct 42.7 % (37.0-47.0) 12/13/21 05:23 MCV 93.8 fL (81.0-99.0) 12/13/21 05:23 MCH 31.6 pg (27.0-31.0) H 12/13/21 05:23 MCHC 33.7 g/dL (32.0-36.0) 12/13/21 05:23 RDW 12.6 % (12.0-15.0) 12/13/21 05:23 Plt Count 253 10^3/uL (130-450) 12/13/21 05:23 MPV 10.1 fL (7.9-10.8) 12/13/21 05:23 Neut # (Auto) 6.5 10^3/uL (1.5-6.6) 12/13/21 05:23 Lymph # (Auto) 2.2 10^3/uL (1.5-3.5) 12/13/21 05:23 [place] # (Auto) 0.7 10^3/uL (0.0-1.0) 12/13/21 05:23 Eos # (Auto) 0.0 10^3/uL (0.0-0.7) 12/13/21 05:23 Baso # (Auto) 0.0 10^3/uL (0.0-0.1) 12/13/21 05:23 Absolute Nucleated RBC 0.00 x10^3/uL 12/13/21 05:23 Nucleated RBC % 0.0 /100WBC 12/13/21 05:23 Sodium 136 mmol/L (135-145) 12/13/21 05:23 Potassium 3.3 mmol/L (3.5-5.0) L 12/13/21 05:23 Chloride 97 mmol/L (101-111) L 12/13/21 05:23 Carbon Dioxide 25 mmol/L (21-32) 12/13/21 05:23 Anion Gap 14.0 (6-13) H 12/13/21 05:23 BUN 9 mg/dL (6-20) 12/13/21 05:23 Creatinine 0.9 mg/dL (0.4-1.0) 12/13/21 05:23 Estimated GFR (MDRD) 67 (>89) L 12/13/21 05:23 Glucose 160 mg/dL (70-100) H 12/13/21 05:23 Calcium 9.5 mg/dL (8.5-10.3) 12/13/21 05:23 Magnesium 2.2 mg/dL (1.7-2.8) 12/11/21 17:00 Total Bilirubin 1.3 mg/dL (0.2-1.0) H 12/11/21 17:00 AST 37 IU/L (10-42) 12/11/21 17:00 ALT 20 IU/L (10-60) 12/11/21 17:00 Alkaline Phosphatase 79 IU/L (42-121) 12/11/21 17:00 Total Protein 9.5 g/dL (6.7-8.2) H 12/11/21 17:00 Albumin 5.3 g/dL (3.2-5.5) 12/11/21 17:00 Globulin 4.2 g/dL (2.1-4.2) 12/11/21 17:00 Albumin/Globulin Ratio 1.3 (1.0-2.2) 12/11/21 17:00 Lipase 39 U/L (22-51) 12/11/21 17:00 Serum HCG, Qual NEGATIVE 12/12/21 04:37 Urine Color YELLOW 12/12/21 07:59 Urine Clarity CLEAR (CLEAR) 12/12/21 07:59 Urine pH 7.5 PH (5.0-7.5) 12/12/21 07:59 Ur Specific [place] 1.020 (1.002-1.030) 12/12/21 07:59 Urine Protein 100 mg/dL (NEGATIVE) H 12/12/21 07:59 Urine Glucose (UA) NEGATIVE mg/dL (NEGATIVE) 12/12/21 07:59 Urine Ketones NEGATIVE mg/dL (NEGATIVE) 12/12/21 07:59 Urine Occult Blood SMALL (NEGATIVE) H 12/12/21 07:59 Urine Nitrite NEGATIVE (NEGATIVE) 12/12/21 07:59 Urine Bilirubin NEGATIVE (NEGATIVE) 12/12/21 07:59 Urine Urobilinogen 0.2 (NORMAL) E.U./dL (NORMAL) 12/12/21 07:59 Ur Leukocyte Esterase NEGATIVE (NEGATIVE) 12/12/21 07:59 Urine RBC 6-10 /HPF (0-5) H 12/12/21 07:59 Urine WBC 4-5 /HPF (0-5) 12/12/21 07:59 Ur Squamous Epith Cells MANY Squamous (<= Few) H 12/12/21 07:59 Urine Bacteria Few /HPF (None Seen) 12/12/21 07:59 Urine Casts 3-5 Hyaline Casts /LPF 12/12/21 07:59 Ur Microscopic Review INDICATED 12/12/21 07:59 Urine Culture Comments NOT INDICATED 12/12/21 07:59 Urine HCG, Qual NEGATIVE 12/12/21 07:59 Urine Opiates Screen NEGATIVE (NEGATIVE) 12/12/21 07:59 Ur Oxycodone Screen NEGATIVE (NEGATIVE) 12/12/21 07:59 Urine Methadone Screen NEGATIVE (NEGATIVE) 12/12/21 07:59 Ur Propoxyphene Screen NEGATIVE (NEGATIVE) 12/12/21 07:59 Ur Barbiturates Screen NEGATIVE (NEGATIVE) 12/12/21 07:59 Ur Tricyclics Screen NEGATIVE (NEGATIVE) 12/12/21 07:59 Ur Phencyclidine Scrn NEGATIVE (NEGATIVE) 12/12/21 07:59 Ur Amphetamine Screen NEGATIVE (NEGATIVE) 12/12/21 07:59 U Methamphetamines Scrn NEGATIVE (NEGATIVE) 12/12/21 07:59 U Benzodiazepines Scrn POSITIVE (NEGATIVE) H 12/12/21 07:59 Urine Cocaine Screen POSITIVE (NEGATIVE) H 12/12/21 07:59 U Cannabinoids Screen POSITIVE (NEGATIVE) H 12/12/21 07:59 SARS-CoV-2 (PCR) NOT DETECTED 12/11/21 20:35 ABX Reporting Has patient been on IV antibiotics over the past 48 hours?: No Current Medications - Current Medications Current Medications: Active Medications Al Hydroxide/Mg Hydroxide (Mag Hydrox/Al Hydrox/Simeth 30 Ml Udc) 30 ml PO Q4HR PRN PRN Reason: INDIGESTION Last Admin: 12/13/21 07:07 Dose: 30 ml Diphenhydramine HCl (Diphenhydramine 25 Mg Capsule) 25 mg PO QPM PRN PRN Reason: Insomnia Last Admin: 12/12/21 22:38 Dose: 25 mg Hydralazine HCl (Hydralazine Inj 20 Mg/Ml Vial) 10 mg IVP QID PRN PRN Reason: Hypertensive Emergency Last Admin: 12/13/21 01:33 Dose: 10 mg Lactated Ringer's (Lr) 1,000 mls @ 100 mls/hr IV .Q10H [facility] Last Infusion: 12/13/21 12:58 Dose: 0 mls/hr Lorazepam (Lorazepam 2 Mg/Ml Vial) 0.5 mg IVP Q12H PRN PRN Reason: Anxiety Multi-Ingredient Mouthwash/Gargle (Gi Cocktail 120 Ml Bottle) 30 ml PO Q4H PRN PRN Reason: Abdominal Pain Ondansetron HCl (Ondansetron 4 Mg/2 Ml Vial) 4 mg IVP Q6HR PRN PRN Reason: Nausea / Vomiting Last Admin: 12/13/21 10:05 Dose: 4 mg Oxycodone HCl (Oxycodone 5 Mg Tablet) 5 mg PO Q4HR PRN PRN Reason: PAIN Last Admin: 12/13/21 10:12 Dose: 5 mg Pantoprazole Sodium (Pantoprazole 40 Mg Vial) 40 mg IVP QDAC [facility] Last Admin: 12/13/21 06:17 Dose: 40 mg Prochlorperazine Edisylate (Prochlorperazine 10 Mg/2 Ml Vial) 10 mg IVP Q6HR PRN PRN Reason: Nausea / Vomiting Last Admin: 12/12/21 22:38 Dose: 10 mg Promethazine HCl (Promethazine 25 Mg/1 Ml Vial) 25 mg IM Q6HR PRN PRN Reason: Nausea / Vomiting Last Admin: 12/13/21 01:40 Dose: 25 mg Sodium Chloride (Sodium Chloride Flush 0.9% 10 Ml Syringe) 10 ml IVP PRN PRN PRN Reason: NEEDED PER PROVIDER ORDERS Last Admin: 12/13/21 06:17 Dose: 10 ml Sodium Chloride (Sodium Chloride Flush 0.9% 10 Ml Syringe) 10 ml IVP 0100,0900,1700 [facility] Last Admin: 12/13/21 01:34 Dose: 10 ml EPINEPHrine [Epinephrine] 0.3 mg IM ONCE PRN 12/12/21 Ondansetron [Ondansetron Odt] 8 mg PO Q6H PRN 12/12/21 Oxycodone HCl/Acetaminophen [Oxycodone-Acetaminophn 7.5-325] 1 tab PO Q6H PRN 12/12/21
[2021-12-13] MEDS: PROCHLORPERAZINE 10 MG/2 ML VIAL IVP PRN (13:36)
[2021-12-13] MEDS: LORazepam 2 MG/ML VIAL IVP PRN ×2 (13:36→21:49)
[2021-12-13] MEDS ORDERED: IOVERSOL 320 50 ML VIAL ONE (14:13)
--- NOTE | 2021-12-13 15:21 | CT Report ---
PROCEDURE: Abdomen/Pelvis W INDICATIONS: abdominal pain and N/V CONTRAST: IV CONTRAST: Optiray 320 ml: 100 PO CONTRAST: *NO PO CONTRAST TECHNIQUE: After the administration of intravenous contrast, 5 mm thick sections acquired from the diaphragms to the symphysis. 5 mm thick coronal and sagittal reformats were acquired. For radiation dose reducti on, the following was used: automated exposure control, adjustment of mA and/or kV according to sherrell ent size. COMPARISON: None. FINDINGS: Image quality: Excellent. ABDOMEN: Lung bases: Bibasilar atelectasis. No pleural effusion. Heart size is normal. Solid organs: Liver is enlarged. Gallbladder is absent. Biliary system is non dilated. Pancreas e nhances normally. No splenomegaly. No adrenal nodules. Kidneys demonstrate normal size and enhancem ent, without hydronephrosis. Peritoneum and bowel: Questionable thickening at the distal esophagus. Stomach is not distended. No s mall bowel obstruction. A few colonic diverticuli. Normal appendix. No free fluid or air. Nodes and vessels: No retroperitoneal or mesenteric adenopathy by size criteria. Aorta and inferior vena cava are normal in size. 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 There is rim calcifi cation. Miscellaneous: No ventral hernias. PELVIS: Genitourinary: Bladder wall thickness is normal. Anteverted uterus. IUD centered in the uterus. Miscellaneous: No inguinal hernias or adenopathy. Bones: No suspicious bony lesions. No vertebral body compression fractures. IMPRESSION: 1. No small bowel obstruction. No free fluid. 2. Questionable thickening at the distal esophagus. 3. Splenic artery rim calcified aneurysm measuring 2.1 cm. 4. Hepatomegaly. Reviewed by: Supa Arceo MD on 12/13/2021 3:20 PM PDT Approved by: Supa Arceo MD on 12/13/2021 3:20 PM PDT Station ID: [id number]
[2021-12-13] MEDS ORDERED: IOVERSOL 320 50 ML VIAL IVP ONE (21:19)
[2021-12-13] MEDS: amLODIPine 5 MG TABLET PO SCH (21:42)
[2021-12-13] MEDS: diphenhydrAMINE 25 MG CAPSULE PO PRN (21:48)
[2021-12-14] MEDS: oxyCODONE 5 MG TABLET PO PRN (06:19)
[2021-12-14] MEDS: LORazepam 2 MG/ML VIAL IVP PRN (06:19)
[2021-12-14] MEDS: LACTATED RINGERS 1,000 ML IV SCH (06:19)
[2021-12-14] MEDS: PANTOPRAZOLE 40 MG VIAL IVP SCH (06:20)
[2021-12-14 08:02] LABS: BASOPHILS % (AUTO) 0.5 %; EOSINOPHILS # (AUTO) 0.2 10^3/uL (0.0-0.7); EOSINOPHILS % (AUTO) 2.7 %; HCT - HEMATOCRIT 42.6 % (37.0-47.0); HGB - HEMOGLOBIN 14.3 g/dL (12.0-16.0); LYMPHOCYTES # (AUTO) 2.6 10^3/uL (1.5-3.5); LYMPHOCYTES % (AUTO) 32.9 %; MEAN CORPUSCULAR HEMOGLOBIN 32.2 pg (27.0-31.0); MEAN CORPUSCULAR HGB CONC 33.6 g/dL (32.0-36.0); MEAN CORPUSCULAR VOLUME 95.9 fL (81.0-99.0); MEAN PLATELET VOLUME 9.7 fL (7.9-10.8); MONOCYTES # (AUTO) 0.4 10^3/uL (0.0-1.0); MONOCYTES % (AUTO) 5.4 %; NEUTROPHILS # (AUTO) 4.6 10^3/uL (1.5-6.6); NEUTROPHILS % (AUTO) 58.2 %; PLT - PLATELET COUNT 237 10^3/uL (130-450); RED BLOOD COUNT 4.44 10^6/uL (4.20-5.40); RED CELL DISTRIBUTION WIDTH 12.5 % (12.0-15.0); WHITE BLOOD COUNT 7.9 x10^3/uL (4.8-10.8)
[2021-12-14 08:08] LABS: CALCIUM 9.3 mg/dL (8.5-10.3); CREATININE 0.7 mg/dL (0.4-1.0); POTASSIUM 3.6 mmol/L (3.5-5.0)
[2021-12-14] MEDS: amLODIPine 5 MG TABLET PO SCH (09:26)
[2021-12-14] MEDS: SODIUM CHLORIDE FLUSH 0.9% 10 ML SYRINGE IVP SCH (09:26)
--- NOTE | 2021-12-14 12:48 | Discharge Plan ---
Discharge Plan Problem Reviewed?: Yes Disposition: Home, Self Care Condition: Stable Prescriptions: amLODIPine [Norvasc] 5 mg PO DAILY #30 tablet Diet: Regular Activity Restrictions: Activity as Tolerated Shower Restrictions: No (fall precaution) Instruction Topics: Cyclic Vomiting Syndrome Ch, Aneurysm Abdominal Aortic, Abdomen Aortic Aneurysm Surg, Amlodipine Health Concerns: cyclic vomiting, splenic artery aneurysm Plan of Treatment: Your nausea, vomiting and abdominal pain are resolved. you tolerated diet. As we discussed, eating certain foods such as chocolate, cheese, and foods with monosodium glutamate (MSG), may trigger an episode cyclic vomiting in some people, also should avoid drinking alcohol and taking Marijuana which exacerbate your cyclic vomiting syndrome. You are found to have splenic artery aneurysm. As you know, you was found this aneurysm in the past, and prefer to seek vascular surgeon as out-pt. You may see your PCP in one week and followup with a vascular surgeon as out-pt as soon as possible. You are prescribed new blood pressure medication Norvasc to control your blood pressure. You may avoid Heavy lifting or high intensity exercise which is not safe due to the risk of increasing your blood pressure, therefore increasing the risk of rupturing the existing aneurysm. A return to work note is written for you. Care Goals: Stabilization and improvement of your medical conditions Assessment: Discussed the care plan with you, and your mother at the bedside, answered your questions, you understood and agreed Additional Instructions or Follow Up instructions: You may follow-up with your PCP in 1 week, follow-up with vascular surgeon as outpatient, should your symptoms return or worsen, you may present to the ER or call 911 for help No Smoking: If you smoke, Please STOP! Call for help. Follow-up with: Sergo Martino MD [Primary Care Provider] -
--- NOTE | 2021-12-14 13:09 | DISCHARGE SUMMARY ---
Discharge Summary Admit Date: 12/11/21 Discharge Date: 12/14/21 Discharging Provider: Justin Silva Primary Care Provider: Chris Su Condition at Discharge: Stable Discharge Disposition: 01 Home, Self Care Discharge Facility Name: home - DIAGNOSES Discharge Diagnoses with Status of Each Condition: (1) Cannabinoid hyperemesis syndrome resolved. pt has no more nausea, vomiting, abdominal pain. pt tolerated diet. advise pt avoid Marijuana which exacerbate her hyperemesis symptoms. (2) Hypokalemia resolved (3)illicit drug usage advise pt quit illicit drug, special avoid Cocaine because pt has splenic artery aneurysm, and avoid Marijuana because of her cannabinoid hyperemesis syndrome. (4)splenic artery aneurysm CT of abdomen/pelvis reveal pt has splenic artery aneurysm. pt is prescribed Norvasc to control her BP. Discussed about the importance to control of her BP for her aneurysm with pt. pt report she knew she had splenic aneurysm for couple of years but she did not seek medical attention. Discussed the risk of aneurysm with pt. pt prefer to seek vascular surgeon as out-pt. pt admit she took Cocaine as well. Advise pt quit taking Cocaine. Advise pt avoid Heavy lifting or high intensity exercise which is not safe due to the risk of increasing his blood pressure, therefore increasing the risk of rupturing the existing aneurysm. A return to work note is written for pt until she is evaluated by her PCP for her aneurysm, advise pt followup with vascular surgeon KRISH. pt and her mother at the bedside verbally state they understand and will followup. pt's splenic artery aneurysm size is 2.[address] of abdomen now, which is just above 2 cm. pt denies abdominal pain or any distress. Her BP is good controlled now. - HPI History of Present Illness: refer from Dr. Cabrera's HPI for pt on 12/11/21 Patient is currently very somnolent and unable to provide history. She is a 46-year-old female who uses marijuana heavily. She presented today with nausea and vomiting suspected to be likely due to cannabinoid hyperemesis syndrome. She was administered a combination of Ativan, droperidol and Benadryl in the ED which consequently resulted in her being very somnolent and difficult to awake. Work-up in the ED also showed a potassium level of 2.3. She is currently unable to tolerate oral intake as a result she is being admitted for further treatment to include continued IV potassium repletion. At bedside she minimally stirs to verbal or tactile stimuli. She appears comfortable and sound asleep. - ALLERGIES Allergies/Adverse Reactions: Allergies Allergy/AdvReac Type Severity Reaction Status Date / Time metoclopramide HCl * Allergy Rash Verified 12/11/21 15:01 [From Reglan] - MEDICATIONS Home Medications: Ambulatory Orders Medication Instructions Recorded Confirmed Sumatriptan [Imitrex] 1 spray KENA Q2H PRN #10 spray MDD 03/07/19 12/12/21 4 SPRAY/24HRS Promethazine Supp [Phenergan Supp] 25 mg AL Q6HR PRN #14 supp 01/27/20 12/12/21 EPINEPHrine [Epinephrine] 0.3 mg IM ONCE PRN 12/12/21 12/12/21 Ondansetron [Ondansetron Odt] 8 mg PO Q6H PRN 12/12/21 12/12/21 Oxycodone HCl/Acetaminophen 1 tab PO Q6H PRN 12/12/21 12/12/21 [Oxycodone-Acetaminophn 7.5-325] amLODIPine [Norvasc] 5 mg PO DAILY #30 tablet 12/14/21 - PHYSICAL EXAM AT DISCHARGE General Appearance: positive: No acute distress, Alert. negative: Lethargic Eyes Bilateral: positive: Normal inspection, No lid inflammation ENT: positive: ENT inspection nml, No signs of dehydration. negative: Purulent nasal drainage Neck: positive: Nml inspection, Trachea midline. negative: Tracheal deviation Respiratory: positive: Chest non-tender, No respiratory distress. negative: Wheezes, Rales Cardiovascular: positive: Regular rate & rhythm. negative: Tachycardia, Bradycardia, Systolic murmur Peripheral Pulses: positive: 2+ Abdomen: positive: Non-tender, Nml bowel sounds, No distention. negative: Tenderness Back: positive: Nml inspection Skin: positive: Color nml, Warm, Dry. negative: Cyanosis Extremities: positive: Non-tender, Full ROM, Nml appearance Neurologic/Psychiatric: positive: Oriented x3, Motor nml, Sensation nml. negative: Weakness, Sensory loss, Facial droop, Slurred/abnml speech, Depressed mood/affect - LABS Result Diagrams: 12/14/21 07:49 04/28/22 07:49 - FOLLOW UP Follow Up: our nausea, vomiting and abdominal pain are resolved. you tolerated diet. As we discussed, eating certain foods such as chocolate, cheese, and foods with monosodium glutamate (MSG), may trigger an episode cyclic vomiting in some people, also should avoid drinking alcohol and taking Marijuana which exacerbate your cyclic vomiting syndrome. You are found to have splenic artery aneurysm. As you know, you was found this aneurysm in the past, and prefer to seek vascular surgeon as out-pt. You may see your PCP in one week and followup with a vascular surgeon as out-pt as soon as possible. You are prescribed new blood pressure medication Norvasc to control your blood pressure. You may avoid Heavy lifting or high intensity exercise which is not safe due to the risk of increasing your blood pressure, therefore increasing the risk of rupturing the existing aneurysm. A return to work note is written for you. you may avoid taking Cocaine. You may follow-up with your PCP in 1 week, follow-up with vascular surgeon as outpatient, should your symptoms return or worsen, you may present to the ER or call 911 for help - TIME SPENT Time Spent in Discharge (Minutes): 30
[2021-12-14 13:37] VITALS: BP 127/84
== END 2021-12-14 13:30 | disposition home or self-care (01) | DRG 392 ==
LOC: ED 14:54 → MS2 20:24 → OBSVTOIN 12-13 13:11
PROVIDERS: ADMIT Internal Medicine; ATTEND Nurse Practitioner Gerontology
DX: R11.2 Nausea with vomiting, unspecified (principal); E86.0 Dehydration; E87.6 Hypokalemia; F41.9 Anxiety disorder, unspecified; F32.A Depression, unspecified; I72.8 Aneurysm of other specified arteries; F17.290 Nicotine dependence, other tobacco product, uncomplicated; R10.9 Unspecified abdominal pain
CPT/HCPCS: 36415; 74177; 80048; 80053; 80306; 81001; 81025; 83690; 83735; 84132; 84703; 85025; 87635; 93005; 96361; 96365; 96366; 96372; 96375; 96376; 99284; 99285; A9270; J1200; J2060; J7120; Q0162; 81003; 87086

== ENCOUNTER 2022-02-13 10:21 | Emergency (ER) | payer OTHER ==
[2022-02-13] MEDS ORDERED: LORazepam 2 MG/ML VIAL IM STA (10:32)
[2022-02-13] MEDS ORDERED: diphenhydrAMINE INJ 50 MG/ML VIAL IM STA (10:32)
[2022-02-13 11:27] VITALS: BP 140/92
--- NOTE | 2022-02-13 11:39 | ED Physician Documentation ---
History of Present Illness - Stated complaint Stated Complaint: POSS ALLERGIC REACTION - Chief complaint Chief Complaint: Allergic Rx - History obtained from History obtained from: Patient - Additonal information Additional information: Pt comes to the ED with CC of "my tongue is swollen and I can't open my mouth." She also states she is now having a panic attack. Pt states she has had multiple episodes like this since getting her covid vaccine last year, and that her PCP told her she will have these "reactions" for life because of the vaccine. No rash or itching. No swelling elsewhere. Pt does not take Haldol or other dystonia-inducing meds. H/o anxiety. No other complaints. Review of Systems Ten Systems: 10 systems reviewed and negative Constitutional: reports: Reviewed and negative Eyes: reports: Reviewed and negative Ears: reports: Reviewed and negative Nose: reports: Reviewed and negative Throat: reports: Reviewed and negative Cardiac: reports: Reviewed and negative Respiratory: reports: Reviewed and negative GI: reports: Reviewed and negative : reports: Reviewed and negative Skin: reports: Reviewed and negative Musculoskeletal: reports: Reviewed and negative Neurologic: reports: Reviewed and negative Psychiatric: reports: Reviewed and negative Endocrine: reports: Reviewed and negative Immunocompromised: reports: Reviewed and negative PD PAST MEDICAL HISTORY - Past Medical History Past Medical History: Yes Cardiovascular: Hypertension Respiratory: None Neuro: None Endocrine/Autoimmune: None GI: Other 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 : None HEENT: None Psych: Anxiety Musculoskeletal: None Derm: None - Past Surgical History Past Surgical History: Yes General: Cholecystectomy, Appendectomy - Present Medications Home Medications: Ambulatory Orders Medication Instructions Recorded Confirmed Sumatriptan [Imitrex] 1 spray KENA Q2H PRN #10 spray MDD 03/07/19 02/13/22 4 SPRAY/24HRS EPINEPHrine [Epinephrine] 0.3 mg IM ONCE PRN 12/12/21 02/13/22 Ondansetron [Ondansetron Odt] 8 mg PO Q6H PRN 12/12/21 02/13/22 amLODIPine [Norvasc] 5 mg PO DAILY #30 tablet 12/14/21 02/13/22 - Allergies Allergies/Adverse Reactions: Allergies Allergy/AdvReac Type Severity Reaction Status Date / Time metoclopramide HCl * Allergy Rash Verified 02/13/22 10:27 [From Reglan] - Social History Does the pt smoke?: Yes Smoking Status: Current every day smoker Does the pt drink ETOH?: Yes ETOH Use: Liquor Does the pt have substance abuse?: Yes Substance Use and Type: Marijuana - Immunizations Immunizations are current?: Yes - POLST Patient has POLST: No POLST Status: Full Code PD ED PE NORMAL - Vitals Vital signs reviewed: Yes - General General: Well developed/nourished, Other (Alert pt, crying and clutching at this examiner's hand, appears anxious) - HEENT HEENT: Atraumatic, PERRL, EOMI, Moist mucous membranes, Pharynx benign, Other (No facial or oropharyngeal edema. Pt keeps teeth clenched, and has excess saliva bubbling out from around her teeth; however, swallows saliva and opens mouth widely without difficulty upon request. ) - Cardiac Cardiac: RRR, No murmur, Strong equal pulses - Respiratory Respiratory: No respiratory distress, Clear bilaterally - Abdomen Abdomen: Soft, Non tender, Non distended - Derm Derm: Normal color, Warm and dry, No rash - Extremities Extremities: No deformity, No edema - Neuro Neuro: Alert and oriented X 3, film spooler 2-12 intact, Normal speech - Psych Psych: Other (tearful, anxious, escalates to greater anxiety easily) Results - Vitals Vitals: Oxygen O2 Source Room air PD MEDICAL DECISION MAKING - ED course Complexity details: considered differential, d/w patient ED course: I d/w pt that I do not find evidence of swelling or an allergic reaction. Pt's mandibular clenching does not seem to be dystonic in nature, as she can easily open her mouth on command. Pt was given Ativan and Benadryl, after which she did improve significantly, and was found to be resting comfortably in bed. We have discussed home management of the sx, as well as the need for follow-up. We have discussed the usual indications for return. Departure - Departure Disposition: 01 Home, Self Care Clinical Impression: Anxiety attack, Salivation excessive Condition: Stable Instructions: ED Panic Attack Comments: It is not clear why he felt that your tongue was swollen this morning. There is no evidence of an allergic reaction today. If you are concerned about an ongoing allergy, please follow-up with an anodizing line operator to discuss possible causes. There is no emergent condition identified today. Discharge Date/Time: 02/13/22 11:48
== END 2022-02-13 11:48 | disposition home or self-care (01) ==
LOC: EDUNIT# → ED 10:21
DX: F41.9 Anxiety disorder, unspecified (principal); K11.7 Disturbances of salivary secretion; F17.200 Nicotine dependence, unspecified, uncomplicated; I10 Essential (primary) hypertension
CPT/HCPCS: 99282; 99283; J1200; J2060

== ENCOUNTER → 2022-02-13 | Outpatient (CLI) | payer OTHER | END | disposition critical access hospital (66) | LOC: EMS 10:02 | DX: R46.89 Other symptoms and signs involving appearance and behavior (principal); R45.89 Other symptoms and signs involving emotional state | CPT/HCPCS: A0425; A0429 ==

== ENCOUNTER 2022-05-29 21:12 | Outpatient (CLI) | payer SELFPAY | END 2022-05-29 21:13 | disposition critical access hospital (66) | LOC: EMS 21:12 | DX: T78.3XXA Angioneurotic edema, initial encounter (principal) | CPT/HCPCS: A0425; A0427 ==

== ENCOUNTER 2022-05-29 21:45 | Observation (INO) | payer OTHER ==
[2022-05-29] MEDS ORDERED: SODIUM CHLORIDE 0.9% 1,000 ML IV STA (22:10)
[2022-05-29] MEDS ORDERED: ONDANSETRON 4 MG/2 ML VIAL IVP STA (22:10)
[2022-05-29] MEDS ORDERED: methylPREDNISolone SUCCINATE 125 MG/2 ML VIAL IVP STA (22:11)
--- NOTE | 2022-05-29 22:11 | ED Physician Documentation ---
History of Present Illness - Stated complaint Stated Complaint: ALLEGIC REACTION - Chief complaint Chief Complaint: Allergic Rx - History obtained from History obtained from: Patient - History of Present Illness Timing: Prior to arrival - Additonal information Additional information: 46-year-old female with history of cannabinoid hyperemesis presents by EMS from home for tongue swelling and nausea and vomiting. Patient states that she gets intermittent tongue swelling ever since her COVID-vaccine more than 1 year ago. EMS administered IM Benadryl, Zofran, epinephrine in route. On arrival patient states her tongue is actually improved, however her main concern is nausea and vomiting. Similar to previous episodes of cannabinoid hyperemesis Review of Systems Ten Systems: 10 systems reviewed and negative Constitutional: denies: Fever, Chills Nose: denies: Rhinorrhea / runny nose, Foreign Body Throat: denies: Dental pain / toothache, Oral lesions / sores, Sore throat GI: reports: Nausea, Vomiting. 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 : None HEENT: None Psych: Anxiety Musculoskeletal: None Derm: None - Past Surgical History Past Surgical History: Yes General: Cholecystectomy, Appendectomy - Present Medications Home Medications: Ambulatory Orders Medication Instructions Recorded Confirmed Sumatriptan [Imitrex] 1 spray KENA Q2H PRN #10 spray MDD 03/07/19 02/13/22 4 SPRAY/24HRS EPINEPHrine [Epinephrine] 0.3 mg IM ONCE PRN 12/12/21 02/13/22 amLODIPine [Norvasc] 5 mg PO DAILY #30 tablet 12/14/21 05/30/22 Spironolactone [Aldactone] 25 mg PO DAILY 05/30/22 05/30/22 buPROPion [Wellbutrin Sr] 100 mg PO DAILY 05/30/22 05/30/22 - Allergies Allergies/Adverse Reactions: Allergies Allergy/AdvReac Type Severity Reaction Status Date / Time metoclopramide HCl * Allergy Rash Verified 05/29/22 21:53 [From Reglan] - Social History Does the pt smoke?: Yes Smoking Status: Current every day smoker Does the pt drink ETOH?: Yes Does the pt have substance abuse?: Yes - Immunizations Immunizations are current?: Yes - POLST Patient has POLST: No POLST Status: Full Code PD ED PE NORMAL - Vitals Vital signs reviewed: Yes - General General: Alert and oriented X 3, Well developed/nourished, Other (appears older than stated age) - HEENT HEENT: Atraumatic, PERRL, EOMI, Ears normal, Other (Tongue normal, mildly dry mucous membranes) - Neck Neck: Supple, no meningeal sign, No bony TTP, No adenopathy - Cardiac Cardiac: RRR, No murmur, Strong equal pulses - Respiratory Respiratory: No respiratory distress, Clear bilaterally - Abdomen Abdomen: Soft, Non tender, Non distended, No organomegaly - Derm Derm: Normal color, Warm and dry, No rash - Extremities Extremities: No deformity, No edema - Neuro Neuro: Alert and oriented X 3, print shop assistant 2-12 intact, Normal speech - Psych Psych: Normal mood, Normal affect Results - Vitals Vitals: Vital Signs - 24 hr 05/29/22 05/29/22 05/29/22 21:48 21:55 23:52 Temperature 36.4 C L Heart Rate 84 85 Respiratory 19 16 26 H Rate Blood Pressure 151/133 H 155/88 H O2 Saturation 97 100 05/30/22 05/30/22 01:00 02:11 Temperature 36.6 C Heart Rate 83 90 Respiratory 16 16 Rate Blood Pressure 155/97 H 157/84 H O2 Saturation 100 100 Oxygen O2 Source Room air - Labs Labs: Laboratory Tests 05/30/22 05/30/22 01:20 01:20 WBC 6.5 RBC 4.06 L Hgb 13.0 Hct 40.2 MCV 99.0 MCH 32.0 H MCHC 32.3 RDW 12.3 Plt Count 207 MPV 10.5 Neut # (Auto) 5.8 Lymph # (Auto) 0.6 L Calloway # (Auto) 0.1 Eos # (Auto) 0.0 Baso # (Auto) 0.0 Absolute Nucleated RBC 0.00 Nucleated RBC % 0.0 Sodium 141 Potassium 3.5 Chloride 102 Carbon Dioxide 25 Anion Gap 14.0 H BUN 11 Creatinine 0.8 Estimated GFR (MDRD) 77 L Glucose 143 H Calcium 9.3 PD MEDICAL DECISION MAKING - ED course Complexity details: reviewed results, re-evaluated patient, considered differential, d/w patient ED course: Patient initially called 911 for tongue swelling that occurs randomly after getting her covid shot, however at time of arrival patient's tongue completely back to normal. Patient states her main concern is nausea and vomiting Patient given PO challenge, however begins gagging when given po. Will add phenergan. Patient will be sleeping comfortably in bed, and I have to shake her knee to wake her up, however then the patient cries stating she's too nauseous, and then attempts to dry heave into emesis bag Patient still had episode of emesis after droperidol. Labs reviewed, will admit for intractable nausea and vomiting Departure - Departure Disposition: ED Place in Observation Clinical Impression: Cannabinoid hyperemesis syndrome, Intractable nausea and vomiting Condition: Stable
--- OUTSIDE RECORDS SUMMARY | 2022-05-29 22:19 | EXTERNAL MEDICAL SUMMARY RPT | Continuity of Care Document ---
:1975 Author Organization [facility] Address [address] [place] [address] Phone Allergies and Intolerances date description facility type (no date) latex [facility] (unknown) (no date) metoclopramide [facility] (unknown) (no date) promethazine [facility] (unknown) Encounters No information. Functional Status No information. Immunizations No information. Medications No information. Problems No information. Procedures No information. Results/Labs test date author facility value unit interpret ation Result panel 1 (unknown) (no (unknown) (unknown) (no value) (units (unk nown) date) unknown) (unknown) (no (unknown) (unknown) Date of Service: (units (unknown) date) 03/20/22 unknown) (unknown) (no (unknown) (unknown) (no value) (units (unk nown) date) unknown) (unknown) (no (unknown) (unknown) 0.5 mg PO DAILY (units (unknown) date) PRN (Reason: unknown) nausea and vomiting) Qty: 10 0RF (unknown) (no (unknown) (unknown) 4 mg PO Q8H PRN (units (unknown) date) (Reason: nausea unknown) and vomiting) Qty: 10 0RF (unknown) (no (unknown) (unknown) 5 mg intranasal (units (unknown) date) Q2-4H PRN (Reason: unknown) migraine headache) Qty: 1 0RF (unknown) (no (unknown) (unknown) 8 mg PO TID PRN (units (unknown) date) (Reason: Nausea) unknown) (unknown) (no (unknown) (unknown) ABLE TO (units (unkno wn) date) unknown) (unknown) (no (unknown) (unknown) Allergies (units (unkn own) date) unknown) (unknown) (no (unknown) (unknown) ED Orders (units (unkn own) date) unknown) (unknown) (no (unknown) (unknown) Emergency Report (units (unknown) date) unknown) (unknown) (no (unknown) (unknown) Home Medications (units (unknown) date) unknown) (unknown) (no (unknown) (unknown) [facility] (units (unknown) date) [address] [place] [address] unknown) [place] [id number] (unknown) (no (unknown) (unknown) Label Comments: (units (unknown) date) unknown) (unknown) (no (unknown) (unknown) PT STATES (units (unkn own) date) unknown) (unknown) (no (unknown) (unknown) Previous Rx's (units ( unknown) date) unknown) (unknown) (no (unknown) (unknown) Rx Instructions: (units (unknown) date) unknown) (unknown) (no (unknown) (unknown) [facility]KE [facility] (units (unkno wn) date) unknown) (unknown) (no (unknown) (unknown) TO IV SITE (units (unk nown) date) unknown) (unknown) (no (unknown) (unknown) Vital Signs - 8 (units (unknown) date) hr unknown) (unknown) (no (unknown) (unknown) dissolve 1 tablet (units (unknown) date) by mouth up to unknown) three times a day (unknown) (no (unknown) (unknown) into each nostril (units (unknown) date) once; if abdominal unknown) migraine remains, may repeat total dose (unknown) (no (unknown) (unknown) (no value) (units (unk nown) date) unknown) (unknown) (no (unknown) (unknown) lorazepam (units (unkn own) date) [Ativan] 0.5 mg unknown) tablet (unknown) (no (unknown) (unknown) ondansetron 4 mg (units (unknown) date) tablet,disintegrat unknown) ing (unknown) (no (unknown) (unknown) ondansetron 8 mg (units (unknown) date) tablet,disintegrat unknown) ing (unknown) (no (unknown) (unknown) sumatriptan 5 (units ( unknown) date) mg/actuation unknown) spray,non-aerosol (unknown) (no (unknown) (unknown) 03/20/22 (units (unkno wn) date) unknown) (unknown) (no (unknown) (unknown) Medication (units (unk nown) date) Instructions unknown) Recorded (unknown) (no (unknown) (unknown) Medication (units (unk nown) date) Instructions unknown) Recorded Confirmed (unknown) (no (unknown) (unknown) vomiting #10 tabs (units (unknown) date) unknown) (unknown) (no (unknown) (unknown) 04:13 (units (unkno wn) date) unknown) (unknown) (no (unknown) (unknown) 03/20/22 04:38 (units (unknown) date) unknown) (unknown) (no (unknown) (unknown) [id number] (units (unkno wn) date) unknown) (unknown) (no (unknown) (unknown) Abscess (units (unkno wn) date) unknown) (unknown) (no (unknown) (unknown) Age/Sex: 46 / F (units (unknown) date) unknown) (unknown) (no (unknown) (unknown) Alcohol type: (units ( unknown) date) wine unknown) (unknown) (no (unknown) (unknown) Allergy/AdvReac (units (unknown) date) Type Severity unknown) Reaction Status Date / Time (unknown) (no (unknown) (unknown) Blood Pressure (units (unknown) date) 135/94 H 03/20/22 unknown) 04:13 (unknown) (no (unknown) (unknown) Blood Pressure (units (unknown) date) 135/94 H unknown) (unknown) (no (unknown) (unknown) CBC Auto Diff (units ( unknown) date) [Complete Blood unknown) Count AUTO DIFF] Stat (unknown) (no (unknown) (unknown) CMP (units (o wn) date) [Comprehensive unknown) Metabolic Panel] Stat (unknown) (no (unknown) (unknown) Chief complaint: (units (unknown) date) Nausea/Vomiting/Di unknown) arrhea (unknown) (no (unknown) (unknown) Chronic abdominal (units (unknown) date) pain unknown) (unknown) (no (unknown) (unknown) Course (units (unkno wn) date) unknown) (unknown) (no (unknown) (unknown) Cyclic vomiting (units (unknown) date) syndrome unknown) (unknown) (no (unknown) (unknown) : 1975 (units (unknown) date) Acct:[id number] unknown) (unknown) (no (unknown) (unknown) Daughter (units (unkno wn) date) Angio-edema unknown) (unknown) (no (unknown) (unknown) Departure (units (unkn own) date) unknown) (unknown) (no (unknown) (unknown) Discharge Plan (units (unknown) date) unknown) (unknown) (no (unknown) (unknown) ER Physician: (units ( unknown) date) Tremayne Jovel D.O. unknown) (unknown) (no (unknown) (unknown) Exam (units (unkno wn) date) unknown) (unknown) (no (unknown) (unknown) Family History (units (unknown) date) (Reviewed 11/03/21 unknown) @ 00:22 by BRANDEE Knight) (unknown) (no (unknown) (unknown) Family history of (units (unknown) date) angioedema unknown) (unknown) (no (unknown) (unknown) Father (units (unkno wn) date) Hypertension unknown) (unknown) (no (unknown) (unknown) General (units (unkno wn) date) unknown) (unknown) (no (unknown) (unknown) HPI - (units (unkno wn) date) Nausea/Vomiting/Di unknown) arrhea (unknown) (no (unknown) (unknown) Hx of (units (unkno wn) date) appendectomy unknown) (unknown) (no (unknown) (unknown) Hx of (units (unkno wn) date) cholecystectomy unknown) (unknown) (no (unknown) (unknown) Initial Vital (units ( unknown) date) Signs unknown) (unknown) (no (unknown) (unknown) Initial Vital (units ( unknown) date) Signs: unknown) (unknown) (no (unknown) (unknown) Sergo Martino MD (units (unknown) date) [Primary Care unknown) Provider] - (unknown) (no (unknown) (unknown) 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 (unknown) (no (unknown) (unknown) Marijuana use, (units (unknown) date) continuous unknown) (unknown) (no (unknown) (unknown) Medical History (units (unknown) date) (Updated 11/03/21 unknown) @ 00:31 by BRANDEE Knight) (unknown) (no (unknown) (unknown) Mode of arrival: (units (unknown) date) Wheelchair unknown) (unknown) (no (unknown) (unknown) Mother Diabetes (units (unknown) date) mellitus unknown) (unknown) (no (unknown) (unknown) No Action (units (unkn own) date) unknown) (unknown) (no (unknown) (unknown) Ordered: (units (unkno wn) date) unknown) (unknown) (no (unknown) (unknown) Orders (units (unkno wn) date) unknown) (unknown) (no (unknown) (unknown) Other Colon (units (un known) date) cancer unknown) (unknown) (no (unknown) (unknown) Oxygen Delivery (units (unknown) date) Method 03/20/22 unknown) 04:13 (unknown) (no (unknown) (unknown) Oxygen Delivery (units (unknown) date) Method Room Air unknown) (unknown) (no (unknown) (unknown) Pancreatitis (units (u nknown) date) unknown) (unknown) (no (unknown) (unknown) Patient History (units (unknown) date) unknown) (unknown) (no (unknown) (unknown) Patient: (units (unkno wn) date) Dameon Castro MR#: unknown) [id number] (unknown) (no (unknown) (unknown) Prescriptions: (units (unknown) date) unknown) (unknown) (no (unknown) (unknown) Pulse Oximetry (units (unknown) date) 100 03/20/22 04:13 unknown) (unknown) (no (unknown) (unknown) Pulse Oximetry (units (unknown) date) 100 unknown) (unknown) (no (unknown) (unknown) Pulse Rate 99 H (units (unknown) date) 03/20/22 04:13 unknown) (unknown) (no (unknown) (unknown) Pulse Rate 99 H (units (unknown) date) unknown) (unknown) (no (unknown) (unknown) Referrals: (units (unk nown) date) unknown) (unknown) (no (unknown) (unknown) Related Data (units (u nknown) date) unknown) (unknown) (no (unknown) (unknown) Respiratory Rate (units (unknown) date) 18 03/20/22 04:13 unknown) (unknown) (no (unknown) (unknown) Respiratory Rate (units (unknown) date) 18 unknown) (unknown) (no (unknown) (unknown) Signed By: (units (unk nown) date) unknown) (unknown) (no (unknown) (unknown) Smoking Status: (units (unknown) date) Current every day unknown) smoker (unknown) (no (unknown) (unknown) Smoking Status: (units (unknown) date) Current every day unknown) smoker (unknown) (no (unknown) (unknown) Social History (units (unknown) date) (Reviewed 11/02/21 unknown) @ 17:50 by Steve Antony PA-C) (unknown) (no (unknown) (unknown) Source: patient (units (unknown) date) unknown) (unknown) (no (unknown) (unknown) Stated complaint: (units (unknown) date) Vomiting, SOB, unknown) numbness in hands (unknown) (no (unknown) (unknown) Substance Use (units ( unknown) date) Type: marijuana unknown) (unknown) (no (unknown) (unknown) Surgical History (units (unknown) date) (Updated 11/03/21 unknown) @ 00:31 by BRANDEE Knight) (unknown) (no (unknown) (unknown) Temperature 98.5 (units (unknown) date) F 03/20/22 04:13 unknown) (unknown) (no (unknown) (unknown) Temperature 98.5 (units (unknown) date) F unknown) (unknown) (no (unknown) (unknown) Time Seen by (units (u nknown) date) Provider: 03/20/22 unknown) 04:19 (unknown) (no (unknown) (unknown) Vital Signs (units (un known) date) unknown) (unknown) (no (unknown) (unknown) Vital signs: (units (u nknown) date) unknown) (unknown) (no (unknown) (unknown) [METOCLOPRAMIDE] (units (unknown) date) unknown) (unknown) (no (unknown) (unknown) alcohol intake (units (unknown) date) frequency: 3 or unknown) more drinks per day (unknown) (no (unknown) (unknown) household (units (unkn own) date) members: spouse unknown) (unknown) (no (unknown) (unknown) latex [LATEX] (units ( unknown) date) Allergy Unknown unknown) Verified 11/02/21 15:46 (unknown) (no (unknown) (unknown) lorazepam 0.5 mg (units (unknown) date) tablet (Ativan) unknown) 0.5 mg PO DAILY PRN nausea and 11/03/21 (unknown) (no (unknown) (unknown) metoclopramide (units (unknown) date) AdvReac Unknown unknown) DYSTONIA Verified 11/02/21 15:46 (unknown) (no (unknown) (unknown) once after at (units ( unknown) date) least 2 hours unknown) (unknown) (no (unknown) (unknown) ondansetron 4 mg (units (unknown) date) disintegrating 4 unknown) mg PO Q8H PRN nausea and 07/28/19 (unknown) (no (unknown) (unknown) ondansetron 8 mg (units (unknown) date) disintegrating 8 unknown) mg PO TID PRN Nausea 09/18/19 08/26/21 (unknown) (no (unknown) (unknown) promethazine (units (u nknown) date) [PROMETHAZINE] unknown) Allergy Mild ERYTHEMA Verified 08/26/21 15:49 (unknown) (no (unknown) (unknown) spray headache #1 (units (unknown) date) ea unknown) (unknown) (no (unknown) (unknown) sumatriptan 5 (units ( unknown) date) mg/actuation nasal unknown) 5 mg intranasal Q2-4H PRN migraine 06/04/21 (unknown) (no (unknown) (unknown) tablet (units (unkno wn) date) unknown) (unknown) (no (unknown) (unknown) tablet vomiting (units (unknown) date) #10 tabs unknown) (unknown) (no (unknown) (unknown) tobacco type: (units ( unknown) date) vaping unknown) Result panel 2 (unknown) (no date) (unknown) (unknown) 0 /uL (unkn own) (unknown) (no date) (unknown) (unknown) 0 /uL (unkn own) (unknown) (no date) (unknown) (unknown) 0.0 % (unkn own) (unknown) (no date) (unknown) (unknown) 0.4 % (unkn own) (unknown) (no date) (unknown) (unknown) 1000 /uL (unkn own) (unknown) (no date) (unknown) (unknown) 1000 /uL (unkn own) (unknown) (no date) (unknown) (unknown) [address] /uL (unkn own) (unknown) (no date) (unknown) (unknown) 12.0 X10 3/uL (unkn own) (unknown) (no date) (unknown) (unknown) 13.7 % (unkn own) (unknown) (no date) (unknown) (unknown) 15.3 g/dL (unkn own) (unknown) (no date) (unknown) (unknown) 273 X10 3/uL (unkn own) (unknown) (no date) (unknown) (unknown) 31.6 PG (unkn own) (unknown) (no date) (unknown) (unknown) 34.4 % (unkn own) (unknown) (no date) (unknown) (unknown) 4.86 X10 6/uL (unkn own) (unknown) (no date) (unknown) (unknown) 44.5 % (unkn own) (unknown) (no date) (unknown) (unknown) 8.1 % (unkn own) (unknown) (no date) (unknown) (unknown) 8.3 % (unkn own) (unknown) (no date) (unknown) (unknown) 83.2 % (unkn own) (unknown) (no date) (unknown) (unknown) 91.7 fL (unkn own) Result panel 3 (unknown) (no date) (unknown) (unknown) 1.1 (units unknown) (unknown) (unknown) (no date) (unknown) (unknown) 1.7 mg/dL (unkn own) (unknown) (no date) (unknown) (unknown) 1.99 mg/dL (unkn own) (unknown) (no date) (unknown) (unknown) 10.9 mg/dL (unkn own) (unknown) (no date) (unknown) (unknown) 11.0 g/dL (unkn own) (unknown) (no date) (unknown) (unknown) 11.1 (units unknown) (unknown) (unknown) (no date) (unknown) (unknown) 142 mg/dL (unkn own) (unknown) (no date) (unknown) (unknown) 142 mmol/L (unkn own) (unknown) (no date) (unknown) (unknown) 2.6 mmol/L (unkn own) (unknown) (no date) (unknown) (unknown) 22 mg/dL (unkn own) (unknown) (no date) (unknown) (unknown) 30 mL/min (unkn own) (unknown) (no date) (unknown) (unknown) 33 mmol/L (unkn own) (unknown) (no date) (unknown) (unknown) 39 IU/L (unkn own) (unknown) (no date) (unknown) (unknown) 5.2 g/dL (unkn own) (unknown) (no date) (unknown) (unknown) 5.8 g/dL (unkn own) (unknown) (no date) (unknown) (unknown) 83 mmol/L (unkn own) (unknown) (no date) (unknown) (unknown) 87 U/L (unkn own) Result panel 4 (unknown) (no date) (unknown) (unknown) 1.1 (units unknown) (unknown) (unknown) (no date) (unknown) (unknown) 1.7 mg/dL (unkn own) (unknown) (no date) (unknown) (unknown) 1.99 mg/dL (unkn own) (unknown) (no date) (unknown) (unknown) 10.9 mg/dL (unkn own) (unknown) (no date) (unknown) (unknown) 11.0 g/dL (unkn own) (unknown) (no date) (unknown) (unknown) 11.1 (units unknown) (unknown) (unknown) (no date) (unknown) (unknown) 142 mg/dL (unkn own) (unknown) (no date) (unknown) (unknown) 142 mmol/L (unkn own) (unknown) (no date) (unknown) (unknown) 2.6 mmol/L (unkn own) (unknown) (no date) (unknown) (unknown) 22 mg/dL (unkn own) (unknown) (no date) (unknown) (unknown) 30 mL/min (unkn own) (unknown) (no date) (unknown) (unknown) 33 mmol/L (unkn own) (unknown) (no date) (unknown) (unknown) 36 IU/L (unkn own) (unknown) (no date) (unknown) (unknown) 39 IU/L (unkn own) (unknown) (no date) (unknown) (unknown) 5.2 g/dL (unkn own) (unknown) (no date) (unknown) (unknown) 5.8 g/dL (unkn own) (unknown) (no date) (unknown) (unknown) 83 mmol/L (unkn own) (unknown) (no date) (unknown) (unknown) 87 U/L (unkn own) Result panel 5 (unknown) (no (unknown) (unknown) (no value) (units (unk nown) date) unknown) (unknown) (no (unknown) (unknown) Date of Service: (units (unknown) date) 03/20/22 unknown) (unknown) (no (unknown) (unknown) (no value) (units (unk nown) date) unknown) (unknown) (no (unknown) (unknown) 0.5 mg PO DAILY (units (unknown) date) PRN (Reason: unknown) nausea and vomiting) Qty: 10 0RF (unknown) (no (unknown) (unknown) 03/20/22 04:40 (units (unknown) date) unknown) (unknown) (no (unknown) (unknown) 4 mg PO Q8H PRN (units (unknown) date) (Reason: nausea unknown) and vomiting) Qty: 10 0RF (unknown) (no (unknown) (unknown) 5 mg intranasal (units (unknown) date) Q2-4H PRN (Reason: unknown) migraine headache) Qty: 1 0RF (unknown) (no (unknown) (unknown) 8 mg PO TID PRN (units (unknown) date) (Reason: Nausea) unknown) (unknown) (no (unknown) (unknown) ABLE TO (units (unkno wn) date) unknown) (unknown) (no (unknown) (unknown) Allergies (units (unkn own) date) unknown) (unknown) (no (unknown) (unknown) Documented By: KP (units (unknown) date) unknown) (unknown) (no (unknown) (unknown) ED Orders (units (unkn own) date) unknown) (unknown) (no (unknown) (unknown) Emergency Report (units (unknown) date) unknown) (unknown) (no (unknown) (unknown) Home Medications (units (unknown) date) unknown) (unknown) (no (unknown) (unknown) [facility] (units (unknown) date) [address] unknown) [place] [address] (unknown) (no (unknown) (unknown) Lab Results (units (un known) date) unknown) (unknown) (no (unknown) (unknown) Label Comments: (units (unknown) date) unknown) (unknown) (no (unknown) (unknown) Last Admin: (units (un known) date) 03/20/22 05:01 unknown) Dose: 5 mg (unknown) (no (unknown) (unknown) PT STATES (units (unkn own) date) unknown) (unknown) (no (unknown) (unknown) Previous Rx's (units ( unknown) date) unknown) (unknown) (no (unknown) (unknown) Rx Instructions: (units (unknown) date) unknown) (unknown) (no (unknown) (unknown) Stop: 03/20/22 (units (unknown) date) 04:53 unknown) (unknown) (no (unknown) (unknown) Stop: 03/20/22 (units (unknown) date) 11:14 unknown) (unknown) (no (unknown) (unknown) [facility]KE [facility] (units (unkno wn) date) unknown) (unknown) (no (unknown) (unknown) TO IV SITE (units (unk nown) date) unknown) (unknown) (no (unknown) (unknown) Vital Signs - 8 (units (unknown) date) hr unknown) (unknown) (no (unknown) (unknown) dissolve 1 tablet (units (unknown) date) by mouth up to unknown) three times a day (unknown) (no (unknown) (unknown) into each nostril (units (unknown) date) once; if abdominal unknown) migraine remains, may repeat total dose (unknown) (no (unknown) (unknown) (no value) (units (unk nown) date) unknown) (unknown) (no (unknown) (unknown) 04:40 04:40 (units (un known) date) unknown) (unknown) (no (unknown) (unknown) 03/20/22 03/20/22 (units (unknown) date) Range/Units unknown) (unknown) (no (unknown) (unknown) lorazepam (units (unkn own) date) [Ativan] 0.5 mg unknown) tablet (unknown) (no (unknown) (unknown) ondansetron 4 mg (units (unknown) date) tablet,disintegrat unknown) ing (unknown) (no (unknown) (unknown) ondansetron 8 mg (units (unknown) date) tablet,disintegrat unknown) ing (unknown) (no (unknown) (unknown) sumatriptan 5 (units ( unknown) date) mg/actuation unknown) spray,non-aerosol (unknown) (no (unknown) (unknown) 03/20/22 (units (unkno wn) date) unknown) (unknown) (no (unknown) (unknown) Medication (units (unk nown) date) Instructions unknown) Recorded (unknown) (no (unknown) (unknown) Medication (units (unk nown) date) Instructions unknown) Recorded Confirmed (unknown) (no (unknown) (unknown) vomiting #10 tabs (units (unknown) date) unknown) (unknown) (no (unknown) (unknown) 04:13 (units (unkno wn) date) unknown) (unknown) (no (unknown) (unknown) 03/20/22 04:40 (units (unknown) date) unknown) (unknown) (no (unknown) (unknown) [id number] (units (unkno wn) date) unknown) (unknown) (no (unknown) (unknown) @ 100 mls/hr IV (units (unknown) date) Q1H KIRIT unknown) (unknown) (no (unknown) (unknown) ALT 36 H (<35) (units (unknown) date) IU/L unknown) (unknown) (no (unknown) (unknown) AST 39 H (14-36) (units (unknown) date) IU/L unknown) (unknown) (no (unknown) (unknown) Abscess (units (unkno wn) date) unknown) (unknown) (no (unknown) (unknown) Age/Sex: 46 / F (units (unknown) date) unknown) (unknown) (no (unknown) (unknown) Albumin 5.8 H (units ( unknown) date) (3.5-5.0) g/dL unknown) (unknown) (no (unknown) (unknown) Albumin/Globulin (units (unknown) date) Ratio 1.1 unknown) (1.0-2.8) (unknown) (no (unknown) (unknown) Alcohol type: (units ( unknown) date) wine unknown) (unknown) (no (unknown) (unknown) Alkaline (units (unkno wn) date) Phosphatase 87 unknown) (38-126) U/L (unknown) (no (unknown) (unknown) Allergy/AdvReac (units (unknown) date) Type Severity unknown) Reaction Status Date / Time (unknown) (no (unknown) (unknown) BUN 22 H (7-17) (units (unknown) date) mg/dL unknown) (unknown) (no (unknown) (unknown) BUN/Creatinine (units (unknown) date) Ratio 11.1 (6-22) unknown) (unknown) (no (unknown) (unknown) Baso # (Auto) 0 (units (unknown) date) (0-100) /uL unknown) (unknown) (no (unknown) (unknown) Baso % (Auto) 0.4 (units (unknown) date) (0-2) % unknown) (unknown) (no (unknown) (unknown) Blood Pressure (units (unknown) date) 135/94 H 03/20/22 unknown) 04:13 (unknown) (no (unknown) (unknown) Blood Pressure (units (unknown) date) 135/94 H unknown) (unknown) (no (unknown) (unknown) CBC Auto Diff (units ( unknown) date) [Complete Blood unknown) Count AUTO DIFF] Stat (unknown) (no (unknown) (unknown) CMP (units (unkno wn) date) [Comprehensive unknown) Metabolic Panel] Stat (unknown) (no (unknown) (unknown) Calcium 10.9 H (units (unknown) date) (8.4-10.2) mg/dL unknown) (unknown) (no (unknown) (unknown) Carbon Dioxide 33 (units (unknown) date) H (22-32) mmol/L unknown) (unknown) (no (unknown) (unknown) Chief complaint: (units (unknown) date) Nausea/Vomiting/Di unknown) arrhea (unknown) (no (unknown) (unknown) Chloride 83 L (units ( unknown) date) (98-107) mmol/L unknown) (unknown) (no (unknown) (unknown) Chronic abdominal (units (unknown) date) pain unknown) (unknown) (no (unknown) (unknown) Course (units (unkno wn) date) unknown) (unknown) (no (unknown) (unknown) Creatinine 1.99 H (units (unknown) date) (0.52-1.04) mg/dL unknown) (unknown) (no (unknown) (unknown) Cyclic vomiting (units (unknown) date) syndrome unknown) (unknown) (no (unknown) (unknown) : 1975 (units (unknown) date) Acct:[id number] unknown) (unknown) (no (unknown) (unknown) Daughter (units (unkno wn) date) Angio-edema unknown) (unknown) (no (unknown) (unknown) Departure (units (unkn own) date) unknown) (unknown) (no (unknown) (unknown) Discharge Plan (units (unknown) date) unknown) (unknown) (no (unknown) (unknown) Discontinued (units (u nknown) date) Medications unknown) (unknown) (no (unknown) (unknown) ER Physician: (units ( unknown) date) Tremayne Jovel D.O. unknown) (unknown) (no (unknown) (unknown) Eos # (Auto) 0 (units (unknown) date) (0-450) /uL unknown) (unknown) (no (unknown) (unknown) Eos % (Auto) 0.0 (units (unknown) date) L (2-4) % unknown) (unknown) (no (unknown) (unknown) Estimated GFR 30 (units (unknown) date) L (>60) mL/min unknown) (unknown) (no (unknown) (unknown) Exam (units (unkno wn) date) unknown) (unknown) (no (unknown) (unknown) Family History (units (unknown) date) (Reviewed 11/03/21 unknown) @ 00:22 by BRANDEE Knight) (unknown) (no (unknown) (unknown) Family history of (units (unknown) date) angioedema unknown) (unknown) (no (unknown) (unknown) Father (units (unkno wn) date) Hypertension unknown) (unknown) (no (unknown) (unknown) General (units (unkno wn) date) unknown) (unknown) (no (unknown) (unknown) GenericComposite[ (units (unknown) date) Plt Count 273 unknown) (150-400) X10^3/uL ] (unknown) (no (unknown) (unknown) GenericComposite[ (units (unknown) date) RBC 4.86 (4.0-5.2) unknown) X10^6/uL ] (unknown) (no (unknown) (unknown) GenericComposite[ (units (unknown) date) WBC 12.0 H unknown) (4.5-11.0) X10^3/uL ] (unknown) (no (unknown) (unknown) Globulin 5.2 H (units (unknown) date) (1.7-4.1) g/dL unknown) (unknown) (no (unknown) (unknown) Glucose 142 H (units ( unknown) date) (70-100) mg/dL unknown) (unknown) (no (unknown) (unknown) HPI - (units (unkno wn) date) Nausea/Vomiting/Di unknown) arrhea (unknown) (no (unknown) (unknown) Haloperidol (units (un known) date) (Haloperidol 5 unknown) Mg/Ml Vial) 5 mg IV NOW ONE (unknown) (no (unknown) (unknown) Hct 44.5 (36-46) (units (unknown) date) % unknown) (unknown) (no (unknown) (unknown) Hgb 15.3 (units (unkno wn) date) (12.0-16.0) g/dL unknown) (unknown) (no (unknown) (unknown) Hx of (units (unkno wn) date) appendectomy unknown) (unknown) (no (unknown) (unknown) Hx of (units (unkno wn) date) cholecystectomy unknown) (unknown) (no (unknown) (unknown) Initial Vital (units ( unknown) date) Signs unknown) (unknown) (no (unknown) (unknown) Initial Vital (units ( unknown) date) Signs: unknown) (unknown) (no (unknown) (unknown) Sergo Martino MD (units (unknown) date) [Primary Care unknown) Provider] - (unknown) (no (unknown) (unknown) Lab Data (units (unkno wn) date) unknown) (unknown) (no (unknown) (unknown) Labs: (units (unkno wn) date) unknown) (unknown) (no (unknown) (unknown) Lymph # (Auto) (units (unknown) date) 1000 L (7004-5273) unknown) /uL (unknown) (no (unknown) (unknown) Lymph % (Auto) (units (unknown) date) 8.1 L (25-40) % unknown) (unknown) (no (unknown) (unknown) MCH 31.6 (26-34) (units (unknown) date) PG unknown) (unknown) (no (unknown) (unknown) MCHC 34.4 (30-36) (units (unknown) date) % unknown) (unknown) (no (unknown) (unknown) MCV 91.7 (80-100) (units (unknown) date) fL unknown) (unknown) (no (unknown) (unknown) MDM - (units (unkno wn) date) Nausea/Vomiting/Di unknown) arrhea (unknown) (no (unknown) (unknown) 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 (unknown) (no (unknown) (unknown) Marijuana use, (units (unknown) date) continuous unknown) (unknown) (no (unknown) (unknown) Medical History (units (unknown) date) (Updated 11/03/21 unknown) @ 00:31 by BRANDEE Knight) (unknown) (no (unknown) (unknown) Mode of arrival: (units (unknown) date) Wheelchair unknown) (unknown) (no (unknown) (unknown) Centre # (Auto) (units ( unknown) date) 1000 H (0-900) /uL unknown) (unknown) (no (unknown) (unknown) Centre % (Auto) 8.3 (units (unknown) date) (3-14) % unknown) (unknown) (no (unknown) (unknown) Mother Diabetes (units (unknown) date) mellitus unknown) (unknown) (no (unknown) (unknown) Neut # (Auto) (units ( unknown) date) 09986 H unknown) (3638-5579) /uL (unknown) (no (unknown) (unknown) Neut % (Auto) (units ( unknown) date) 83.2 H (50-75) % unknown) (unknown) (no (unknown) (unknown) No Action (units (unkn own) date) unknown) (unknown) (no (unknown) (unknown) Ordered: (units (unkno wn) date) unknown) (unknown) (no (unknown) (unknown) Orders (units (unkno wn) date) unknown) (unknown) (no (unknown) (unknown) Other Colon (units (un known) date) cancer unknown) (unknown) (no (unknown) (unknown) Oxygen Delivery (units (unknown) date) Method 03/20/22 unknown) 04:13 (unknown) (no (unknown) (unknown) Oxygen Delivery (units (unknown) date) Method Room Air unknown) (unknown) (no (unknown) (unknown) POTASSIUM (units (unkn own) date) CHLORIDE IN WATER unknown) (Potassium Cl 10 Meq/100 Ml Lidia) 10 meq in 100 mls (unknown) (no (unknown) (unknown) Pancreatitis (units (u nknown) date) unknown) (unknown) (no (unknown) (unknown) Patient History (units (unknown) date) unknown) (unknown) (no (unknown) (unknown) Patient: (units (unkno wn) date) Dameon Castro MR#: unknown) [id number] (unknown) (no (unknown) (unknown) Potassium 2.6 L* (units (unknown) date) (3.4-5.1) mmol/L unknown) (unknown) (no (unknown) (unknown) Prescriptions: (units (unknown) date) unknown) (unknown) (no (unknown) (unknown) Pulse Oximetry (units (unknown) date) 100 03/20/22 04:13 unknown) (unknown) (no (unknown) (unknown) Pulse Oximetry (units (unknown) date) 100 unknown) (unknown) (no (unknown) (unknown) Pulse Rate 99 H (units (unknown) date) 03/20/22 04:13 unknown) (unknown) (no (unknown) (unknown) Pulse Rate 99 H (units (unknown) date) unknown) (unknown) (no (unknown) (unknown) RDW 13.7 (units (unkno wn) date) (11.6-14.8) % unknown) (unknown) (no (unknown) (unknown) Referrals: (units (unk nown) date) unknown) (unknown) (no (unknown) (unknown) Related Data (units (u nknown) date) unknown) (unknown) (no (unknown) (unknown) Respiratory Rate (units (unknown) date) 18 08/02/22 04:13 unknown) (unknown) (no (unknown) (unknown) Respiratory Rate (units (unknown) date) 18 unknown) (unknown) (no (unknown) (unknown) Result diagrams: (units (unknown) date) unknown) (unknown) (no (unknown) (unknown) Signed By: (units (unk nown) date) unknown) (unknown) (no (unknown) (unknown) Smoking Status: (units (unknown) date) Current every day unknown) smoker (unknown) (no (unknown) (unknown) Smoking Status: (units (unknown) date) Current every day unknown) smoker (unknown) (no (unknown) (unknown) Social History (units (unknown) date) (Reviewed 11/02/21 unknown) @ 17:50 by Steve Antony PA-C) (unknown) (no (unknown) (unknown) Sodium 142 (units (unk nown) date) (137-145) mmol/L unknown) (unknown) (no (unknown) (unknown) Source: patient (units (unknown) date) unknown) (unknown) (no (unknown) (unknown) Stated complaint: (units (unknown) date) Vomiting, SOB, unknown) numbness in hands (unknown) (no (unknown) (unknown) Substance Use (units ( unknown) date) Type: marijuana unknown) (unknown) (no (unknown) (unknown) Surgical History (units (unknown) date) (Updated 11/03/21 unknown) @ 00:31 by BRANDEE Knight) (unknown) (no (unknown) (unknown) Temperature 98.5 (units (unknown) date) F 03/20/22 04:13 unknown) (unknown) (no (unknown) (unknown) Temperature 98.5 (units (unknown) date) F unknown) (unknown) (no (unknown) (unknown) Time Seen by (units (u nknown) date) Provider: 03/20/22 unknown) 04:19 (unknown) (no (unknown) (unknown) Total Bilirubin (units (unknown) date) 1.7 H (0.2-1.3) unknown) mg/dL (unknown) (no (unknown) (unknown) Total Protein (units ( unknown) date) 11.0 H (6.3-8.2) unknown) g/dL (unknown) (no (unknown) (unknown) Vital Signs (units (un known) date) unknown) (unknown) (no (unknown) (unknown) Vital signs: (units (u nknown) date) unknown) (unknown) (no (unknown) (unknown) [Embedded Image (units (unknown) date) Not Available] unknown) (unknown) (no (unknown) (unknown) [METOCLOPRAMIDE] (units (unknown) date) unknown) (unknown) (no (unknown) (unknown) alcohol intake (units (unknown) date) frequency: 3 or unknown) more drinks per day (unknown) (no (unknown) (unknown) household (units (unkn own) date) members: spouse unknown) (unknown) (no (unknown) (unknown) latex [LATEX] (units ( unknown) date) Allergy Unknown unknown) Verified 11/02/21 15:46 (unknown) (no (unknown) (unknown) lorazepam 0.5 mg (units (unknown) date) tablet (Ativan) unknown) 0.5 mg PO DAILY PRN nausea and 11/03/21 (unknown) (no (unknown) (unknown) metoclopramide (units (unknown) date) AdvReac Unknown unknown) DYSTONIA Verified 11/02/21 15:46 (unknown) (no (unknown) (unknown) once after at (units ( unknown) date) least 2 hours unknown) (unknown) (no (unknown) (unknown) ondansetron 4 mg (units (unknown) date) disintegrating 4 unknown) mg PO Q8H PRN nausea and 07/28/19 (unknown) (no (unknown) (unknown) ondansetron 8 mg (units (unknown) date) disintegrating 8 unknown) mg PO TID PRN Nausea 09/18/19 08/26/21 (unknown) (no (unknown) (unknown) promethazine (units (u nknown) date) [PROMETHAZINE] unknown) Allergy Mild ERYTHEMA Verified 08/26/21 15:49 (unknown) (no (unknown) (unknown) spray headache #1 (units (unknown) date) ea unknown) (unknown) (no (unknown) (unknown) sumatriptan 5 (units ( unknown) date) mg/actuation nasal unknown) 5 mg intranasal Q2-4H PRN migraine 06/04/21 (unknown) (no (unknown) (unknown) tablet (units (unkno wn) date) unknown) (unknown) (no (unknown) (unknown) tablet vomiting (units (unknown) date) #10 tabs unknown) (unknown) (no (unknown) (unknown) tobacco type: (units ( unknown) date) vaping unknown) Result panel 6 (unknown) (no (unknown) (unknown) (no value) (units (unk nown) date) unknown) (unknown) (no (unknown) (unknown) Date of Service: (units (unknown) date) 03/20/22 unknown) (unknown) (no (unknown) (unknown) (no value) (units (unk nown) date) unknown) (unknown) (no (unknown) (unknown) 0.5 mg PO DAILY (units (unknown) date) PRN (Reason: unknown) nausea and vomiting) Qty: 10 0RF (unknown) (no (unknown) (unknown) 03/20/22 04:40 (units (unknown) date) unknown) (unknown) (no (unknown) (unknown) 4 mg PO Q8H PRN (units (unknown) date) (Reason: nausea unknown) and vomiting) Qty: 10 0RF (unknown) (no (unknown) (unknown) 5 mg intranasal (units (unknown) date) Q2-4H PRN (Reason: unknown) migraine headache) Qty: 1 0RF (unknown) (no (unknown) (unknown) 8 mg PO TID PRN (units (unknown) date) (Reason: Nausea) unknown) (unknown) (no (unknown) (unknown) ABLE TO (units (unkno wn) date) unknown) (unknown) (no (unknown) (unknown) Allergies (units (unkn own) date) unknown) (unknown) (no (unknown) (unknown) Documented By: KP (units (unknown) date) unknown) (unknown) (no (unknown) (unknown) ED Orders (units (unkn own) date) unknown) (unknown) (no (unknown) (unknown) Emergency Report (units (unknown) date) unknown) (unknown) (no (unknown) (unknown) Home Medications (units (unknown) date) unknown) (unknown) (no (unknown) (unknown) [facility] (units (unknown) date) [address] unknown) [place] [address] (unknown) (no (unknown) (unknown) Lab Results (units (un known) date) unknown) (unknown) (no (unknown) (unknown) Label Comments: (units (unknown) date) unknown) (unknown) (no (unknown) (unknown) Last Admin: (units (un known) date) 03/20/22 05:01 unknown) Dose: 5 mg (unknown) (no (unknown) (unknown) PT [place] (units (unkn own) date) unknown) (unknown) (no (unknown) (unknown) Previous Rx's (units ( unknown) date) unknown) (unknown) (no (unknown) (unknown) Rx Instructions: (units (unknown) date) unknown) (unknown) (no (unknown) (unknown) Stop: 03/20/22 (units (unknown) date) 04:53 unknown) (unknown) (no (unknown) (unknown) Stop: 03/20/22 (units (unknown) date) 11:14 unknown) (unknown) (no (unknown) (unknown) TAKE [facility] (units (unkno wn) date) unknown) (unknown) (no (unknown) (unknown) TO IV SITE (units (unk nown) date) unknown) (unknown) (no (unknown) (unknown) Vital Signs - 8 (units (unknown) date) hr unknown) (unknown) (no (unknown) (unknown) dissolve 1 tablet (units (unknown) date) by mouth up to unknown) three times a day (unknown) (no (unknown) (unknown) into each nostril (units (unknown) date) once; if abdominal unknown) migraine remains, may repeat total dose (unknown) (no (unknown) (unknown) (no value) (units (unk nown) date) unknown) (unknown) (no (unknown) (unknown) 04:40 04:40 (units (un known) date) unknown) (unknown) (no (unknown) (unknown) 03/20/22 03/20/22 (units (unknown) date) Range/Units unknown) (unknown) (no (unknown) (unknown) lorazepam (units (unkn own) date) [Ativan] 0.5 mg unknown) tablet (unknown) (no (unknown) (unknown) ondansetron 4 mg (units (unknown) date) tablet,disintegrat unknown) ing (unknown) (no (unknown) (unknown) ondansetron 8 mg (units (unknown) date) tablet,disintegrat unknown) ing (unknown) (no (unknown) (unknown) sumatriptan 5 (units ( unknown) date) mg/actuation unknown) spray,non-aerosol (unknown) (no (unknown) (unknown) 03/20/22 (units (unkno wn) date) unknown) (unknown) (no (unknown) (unknown) Medication (units (unk nown) date) Instructions unknown) Recorded (unknown) (no (unknown) (unknown) Medication (units (unk nown) date) Instructions unknown) Recorded Confirmed (unknown) (no (unknown) (unknown) rales, or (units (unkn own) date) rhonchi. unknown) (unknown) (no (unknown) (unknown) sounds present in (units (unknown) date) all 4 quadrants unknown) (unknown) (no (unknown) (unknown) vomiting #10 tabs (units (unknown) date) unknown) (unknown) (no (unknown) (unknown) 04:13 (units (unkno wn) date) unknown) (unknown) (no (unknown) (unknown) 03/20/22 04:40 (units (unknown) date) unknown) (unknown) (no (unknown) (unknown) 12 point review (units (unknown) date) of systems is unknown) negative except for those stated above (unknown) (no (unknown) (unknown) [id number] (units (unkno wn) date) unknown) (unknown) (no (unknown) (unknown) 46-year-old (units (un known) date) female with unknown) history of cyclic vomiting and abdominal migraines (unknown) (no (unknown) (unknown) @ 100 mls/hr IV (units (unknown) date) Q1H KIRIT unknown) (unknown) (no (unknown) (unknown) ALT 36 H (<35) (units (unknown) date) IU/L unknown) (unknown) (no (unknown) (unknown) AST 39 H (14-36) (units (unknown) date) IU/L unknown) (unknown) (no (unknown) (unknown) Abscess (units (unkno wn) date) unknown) (unknown) (no (unknown) (unknown) Age/Sex: 46 / F (units (unknown) date) unknown) (unknown) (no (unknown) (unknown) Albumin 5.8 H (units ( unknown) date) (3.5-5.0) g/dL unknown) (unknown) (no (unknown) (unknown) Albumin/Globulin (units (unknown) date) Ratio 1.1 unknown) (1.0-2.8) (unknown) (no (unknown) (unknown) Alcohol type: (units ( unknown) date) wine unknown) (unknown) (no (unknown) (unknown) Alkaline (units (unkno wn) date) Phosphatase 87 unknown) (38-126) U/L (unknown) (no (unknown) (unknown) Allergy/AdvReac (units (unknown) date) Type Severity unknown) Reaction Status Date / Time (unknown) (no (unknown) (unknown) BACK: Nontender (units (unknown) date) without deformity unknown) or crepitance. No flank tenderness. (unknown) (no (unknown) (unknown) BUN 22 H (7-17) (units (unknown) date) mg/dL unknown) (unknown) (no (unknown) (unknown) BUN/Creatinine (units (unknown) date) Ratio 11.1 (6-22) unknown) (unknown) (no (unknown) (unknown) Baso # (Auto) 0 (units (unknown) date) (0-100) /uL unknown) (unknown) (no (unknown) (unknown) Baso % (Auto) 0.4 (units (unknown) date) (0-2) % unknown) (unknown) (no (unknown) (unknown) Blood Pressure (units (unknown) date) 135/94 H 03/20/22 unknown) 04:13 (unknown) (no (unknown) (unknown) Blood Pressure (units (unknown) date) 135/94 H unknown) (unknown) (no (unknown) (unknown) CARDIOVASCULAR: (units (unknown) date) Denies chest pain, unknown) palpitations, orthopnea, edema, (unknown) (no (unknown) (unknown) CARDIOVASCULAR: (units (unknown) date) Regular rate and unknown) rhythm without murmurs, gallops, or rubs. (unknown) (no (unknown) (unknown) CBC Auto Diff (units ( unknown) date) [Complete Blood unknown) Count AUTO DIFF] Stat (unknown) (no (unknown) (unknown) CMP (units (unkno wn) date) [Comprehensive unknown) Metabolic Panel] Stat (unknown) (no (unknown) (unknown) Calcium 10.9 H (units (unknown) date) (8.4-10.2) mg/dL unknown) (unknown) (no (unknown) (unknown) Carbon Dioxide 33 (units (unknown) date) H (22-32) mmol/L unknown) (unknown) (no (unknown) (unknown) Chief complaint: (units (unknown) date) Nausea/Vomiting/Di unknown) arrhea (unknown) (no (unknown) (unknown) Chloride 83 L (units ( unknown) date) (98-107) mmol/L unknown) (unknown) (no (unknown) (unknown) Chronic abdominal (units (unknown) date) pain unknown) (unknown) (no (unknown) (unknown) Course (units (unkno wn) date) unknown) (unknown) (no (unknown) (unknown) Creatinine 1.99 H (units (unknown) date) (0.52-1.04) mg/dL unknown) (unknown) (no (unknown) (unknown) Cyclic vomiting (units (unknown) date) syndrome unknown) (unknown) (no (unknown) (unknown) : 1975 (units (unknown) date) Acct:[id number] unknown) (unknown) (no (unknown) (unknown) Daughter (units (unkno wn) date) Angio-edema unknown) (unknown) (no (unknown) (unknown) Departure (units (unkn own) date) unknown) (unknown) (no (unknown) (unknown) Discharge Plan (units (unknown) date) unknown) (unknown) (no (unknown) (unknown) Discontinued (units (u nknown) date) Medications unknown) (unknown) (no (unknown) (unknown) ENT: Dry mucous (units (unknown) date) membranes Nose unknown) without bleeding, purulent drainage. Throat (unknown) (no (unknown) (unknown) ER Physician: (units ( unknown) date) Tremayne Jovel D.O. unknown) (unknown) (no (unknown) (unknown) EXTREMITIES: No (units (unknown) date) edema or joint unknown) tenderness. (unknown) (no (unknown) (unknown) EYES: Pupils (units (u nknown) date) equal round and unknown) reactive. Extraocular motions intact. No scleral (unknown) (no (unknown) (unknown) Eos # (Auto) 0 (units (unknown) date) (0-450) /uL unknown) (unknown) (no (unknown) (unknown) Eos % (Auto) 0.0 (units (unknown) date) L (2-4) % unknown) (unknown) (no (unknown) (unknown) Estimated GFR 30 (units (unknown) date) L (>60) mL/min unknown) (unknown) (no (unknown) (unknown) Exam (units (unkno wn) date) unknown) (unknown) (no (unknown) (unknown) Exam Narrative: (units (unknown) date) unknown) (unknown) (no (unknown) (unknown) Family History (units (unknown) date) (Reviewed 03/20/22 unknown) @ 05:09 by Tremayne Jovel DO) (unknown) (no (unknown) (unknown) Family history of (units (unknown) date) angioedema unknown) (unknown) (no (unknown) (unknown) Father (units (unkno wn) date) Hypertension unknown) (unknown) (no (unknown) (unknown) GASTROINTESTINAL: (units (unknown) date) See HPI unknown) (unknown) (no (unknown) (unknown) GASTROINTESTINAL: (units (unknown) date) Abdomen soft, unknown) generalized abdominal pain, nondistended. Bowel (unknown) (no (unknown) (unknown) GENERAL: Denies (units (unknown) date) chills, fatigue, unknown) malaise, fever, sweats. (unknown) (no (unknown) (unknown) GENERAL: [46] (units ( unknown) date) year old patient unknown) appears stated age. Well-developed patient, in (unknown) (no (unknown) (unknown) : Denies (units (unk nown) date) dysuria, unknown) frequency, incontinence, hematuria, urinary retention. (unknown) (no (unknown) (unknown) General (units (unkno wn) date) unknown) (unknown) (no (unknown) (unknown) GenericComposite[ (units (unknown) date) Plt Count 273 unknown) (150-400) X10^3/uL ] (unknown) (no (unknown) (unknown) GenericComposite[ (units (unknown) date) RBC 4.86 (4.0-5.2) unknown) X10^6/uL ] (unknown) (no (unknown) (unknown) GenericComposite[ (units (unknown) date) WBC 12.0 H unknown) (4.5-11.0) X10^3/uL ] (unknown) (no (unknown) (unknown) Globulin 5.2 H (units (unknown) date) (1.7-4.1) g/dL unknown) (unknown) (no (unknown) (unknown) Glucose 142 H (units ( unknown) date) (70-100) mg/dL unknown) (unknown) (no (unknown) (unknown) HEAD: Atraumatic. (units (unknown) date) Normocephalic. unknown) (unknown) (no (unknown) (unknown) HEENT: Denies (units ( unknown) date) sinus pain, ear unknown) pain, sore throat, difficulty swallowing, (unknown) (no (unknown) (unknown) HPI - (units (unkno wn) date) Nausea/Vomiting/Di unknown) arrhea (unknown) (no (unknown) (unknown) HPI Narrative: (units (unknown) date) unknown) (unknown) (no (unknown) (unknown) Haloperidol (units (un known) date) (Haloperidol 5 unknown) Mg/Ml Vial) 5 mg IV NOW ONE (unknown) (no (unknown) (unknown) Hct 44.5 (36-46) (units (unknown) date) % unknown) (unknown) (no (unknown) (unknown) Hgb 15.3 (units (unkno wn) date) (12.0-16.0) g/dL unknown) (unknown) (no (unknown) (unknown) History of (units (unk nown) date) Present Illness unknown) (unknown) (no (unknown) (unknown) Hx of (units (unkno wn) date) appendectomy unknown) (unknown) (no (unknown) (unknown) Hx of (units (unkno wn) date) cholecystectomy unknown) (unknown) (no (unknown) (unknown) Initial Vital (units ( unknown) date) Signs unknown) (unknown) (no (unknown) (unknown) Initial Vital (units ( unknown) date) Signs: unknown) (unknown) (no (unknown) (unknown) Sergo Martino MD (units (unknown) date) [Primary Care unknown) Provider] - (unknown) (no (unknown) (unknown) Lab Data (units (unkno wn) date) unknown) (unknown) (no (unknown) (unknown) Labs: (units (unkno wn) date) unknown) (unknown) (no (unknown) (unknown) Lymph # (Auto) (units (unknown) date) 1000 L (0897-2198) unknown) /uL (unknown) (no (unknown) (unknown) Lymph % (Auto) (units (unknown) date) 8.1 L (25-40) % unknown) (unknown) (no (unknown) (unknown) MCH 31.6 (26-34) (units (unknown) date) PG unknown) (unknown) (no (unknown) (unknown) MCHC 34.4 (30-36) (units (unknown) date) % unknown) (unknown) (no (unknown) (unknown) MCV 91.7 (80-100) (units (unknown) date) fL unknown) (unknown) (no (unknown) (unknown) MDM - (units (unkno wn) date) Nausea/Vomiting/Di unknown) arrhea (unknown) (no (unknown) (unknown) 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 (unknown) (no (unknown) (unknown) MUSCULOSKELETAL: (units (unknown) date) denies weakness, unknown) joint pain, or bony pain (unknown) (no (unknown) (unknown) Marijuana use, (units (unknown) date) continuous unknown) (unknown) (no (unknown) (unknown) Medical History (units (unknown) date) (Reviewed 03/20/22 unknown) @ 05:09 by Tremayne Jovel DO) (unknown) (no (unknown) (unknown) Mode of arrival: (units (unknown) date) Wheelchair unknown) (unknown) (no (unknown) (unknown) Centre # (Auto) (units ( unknown) date) 1000 H (0-900) /uL unknown) (unknown) (no (unknown) (unknown) Centre % (Auto) 8.3 (units (unknown) date) (3-14) % unknown) (unknown) (no (unknown) (unknown) Mother Diabetes (units (unknown) date) mellitus unknown) (unknown) (no (unknown) (unknown) NECK: Trachea (units ( unknown) date) midline. Non unknown) tender (unknown) (no (unknown) (unknown) NEURO: AOx3. (units (u nknown) date) unknown) (unknown) (no (unknown) (unknown) NEUROLOGIC: (units (un known) date) Denies weakness, unknown) headache, numbness, change in speech, confusion, (unknown) (no (unknown) (unknown) Narrative (units (unkn own) date) unknown) (unknown) (no (unknown) (unknown) Narrative: (units (unk nown) date) unknown) (unknown) (no (unknown) (unknown) Neut # (Auto) (units ( unknown) date) 45609 H unknown) (7763-4863) /uL (unknown) (no (unknown) (unknown) Neut % (Auto) (units ( unknown) date) 83.2 H (50-75) % unknown) (unknown) (no (unknown) (unknown) No Action (units (unkn own) date) unknown) (unknown) (no (unknown) (unknown) Ordered: (units (unkno wn) date) unknown) (unknown) (no (unknown) (unknown) Orders (units (unkno wn) date) unknown) (unknown) (no (unknown) (unknown) Other Colon (units (un known) date) cancer unknown) (unknown) (no (unknown) (unknown) Oxygen Delivery (units (unknown) date) Method 03/20/22 unknown) 04:13 (unknown) (no (unknown) (unknown) Oxygen Delivery (units (unknown) date) Method Room Air unknown) (unknown) (no (unknown) (unknown) POTASSIUM (units (unkn own) date) CHLORIDE IN WATER unknown) (Potassium Cl 10 Meq/100 Ml Lidia) 10 meq in 100 mls (unknown) (no (unknown) (unknown) PSYCHIATRIC: No (units (unknown) date) concerning unknown) psychosocial issues. (unknown) (no (unknown) (unknown) Pancreatitis (units (u nknown) date) unknown) (unknown) (no (unknown) (unknown) Patient History (units (unknown) date) unknown) (unknown) (no (unknown) (unknown) Patient: (units (unkno wn) date) Dameon Castro MR#: unknown) M0002 (unknown) (no (unknown) (unknown) Potassium 2.6 L* (units (unknown) date) (3.4-5.1) mmol/L unknown) (unknown) (no (unknown) (unknown) Prescriptions: (units (unknown) date) unknown) (unknown) (no (unknown) (unknown) Pulse Oximetry (units (unknown) date) 100 03/20/22 04:13 unknown) (unknown) (no (unknown) (unknown) Pulse Oximetry (units (unknown) date) 100 unknown) (unknown) (no (unknown) (unknown) Pulse Rate 99 H (units (unknown) date) 03/20/22 04:13 unknown) (unknown) (no (unknown) (unknown) Pulse Rate 99 H (units (unknown) date) unknown) (unknown) (no (unknown) (unknown) RDW 13.7 (units (unkno wn) date) (11.6-14.8) % unknown) (unknown) (no (unknown) (unknown) RESPIRATORY: Clear (units (unknown) date) to auscultation. unknown) Breath sounds equal bilaterally. No wheezes, (unknown) (no (unknown) (unknown) RESPIRATORY: (units (u nknown) date) Denies dyspnea, unknown) cough, wheezing, hemoptysis, sputum. (unknown) (no (unknown) (unknown) Referrals: (units (unk nown) date) unknown) (unknown) (no (unknown) (unknown) Related Data (units (u nknown) date) unknown) (unknown) (no (unknown) (unknown) Respiratory Rate (units (unknown) date) 18 03/20/22 04:13 unknown) (unknown) (no (unknown) (unknown) Respiratory Rate (units (unknown) date) 18 unknown) (unknown) (no (unknown) (unknown) Result diagrams: (units (unknown) date) unknown) (unknown) (no (unknown) (unknown) Review of Systems (units (unknown) date) unknown) (unknown) (no (unknown) (unknown) SKIN: Denies (units (u nknown) date) rash, skin unknown) lesions, or other (unknown) (no (unknown) (unknown) SKIN: No rash or (units (unknown) date) erythema of unknown) visible areas (unknown) (no (unknown) (unknown) Signed By: (units (unk nown) date) unknown) (unknown) (no (unknown) (unknown) Smoking Status: (units (unknown) date) Current every day unknown) smoker (unknown) (no (unknown) (unknown) Smoking Status: (units (unknown) date) Current every day unknown) smoker (unknown) (no (unknown) (unknown) Social History (units (unknown) date) (Reviewed 03/20/22 unknown) @ 05:09 by Tremayne Jovel DO) (unknown) (no (unknown) (unknown) Sodium 142 (units (unk nown) date) (137-145) mmol/L unknown) (unknown) (no (unknown) (unknown) Source: patient (units (unknown) date) unknown) (unknown) (no (unknown) (unknown) Stated complaint: (units (unknown) date) Vomiting, SOB, unknown) numbness in hands (unknown) (no (unknown) (unknown) Substance Use (units ( unknown) date) Type: marijuana unknown) (unknown) (no (unknown) (unknown) Surgical History (units (unknown) date) (Reviewed 03/20/22 unknown) @ 05:09 by Tremayne Jovel DO) (unknown) (no (unknown) (unknown) Temperature 98.5 (units (unknown) date) F 03/20/22 04:13 unknown) (unknown) (no (unknown) (unknown) Temperature 98.5 (units (unknown) date) F unknown) (unknown) (no (unknown) (unknown) Time Seen by (units (u nknown) date) Provider: 03/20/22 unknown) 04:19 (unknown) (no (unknown) (unknown) Total Bilirubin (units (unknown) date) 1.7 H (0.2-1.3) unknown) mg/dL (unknown) (no (unknown) (unknown) Total Protein (units ( unknown) date) 11.0 H (6.3-8.2) unknown) g/dL (unknown) (no (unknown) (unknown) Vital Signs (units (un known) date) unknown) (unknown) (no (unknown) (unknown) Vital signs: (units (u nknown) date) unknown) (unknown) (no (unknown) (unknown) [Embedded Image (units (unknown) date) Not Available] unknown) (unknown) (no (unknown) (unknown) [METOCLOPRAMIDE] (units (unknown) date) unknown) (unknown) (no (unknown) (unknown) alcohol intake (units (unknown) date) frequency: 3 or unknown) more drinks per day (unknown) (no (unknown) (unknown) and frequent (units (u nknown) date) vomiting over the unknown) past 2 days despite the use of her home Zofran (unknown) (no (unknown) (unknown) and suppository. (units (unknown) date) She has terrible unknown) appetite and states that over the course of (unknown) (no (unknown) (unknown) dizziness. (units (unk nown) date) unknown) (unknown) (no (unknown) (unknown) for her. She (units (u nknown) date) denies any new unknown) medications or change in her diet. She denies any (unknown) (no (unknown) (unknown) household (units (unkn own) date) members: spouse unknown) (unknown) (no (unknown) (unknown) icterus. No (units (un known) date) injection or unknown) drainage. (unknown) (no (unknown) (unknown) latex [LATEX] (units ( unknown) date) Allergy Unknown unknown) Verified 11/02/21 15:46 (unknown) (no (unknown) (unknown) lorazepam 0.5 mg (units (unknown) date) tablet (Ativan) unknown) 0.5 mg PO DAILY PRN nausea and 11/03/21 (unknown) (no (unknown) (unknown) metoclopramide (units (unknown) date) AdvReac Unknown unknown) DYSTONIA Verified 11/02/21 15:46 (unknown) (no (unknown) (unknown) mild distress. (units (unknown) date) unknown) (unknown) (no (unknown) (unknown) once after at (units ( unknown) date) least 2 hours unknown) (unknown) (no (unknown) (unknown) ondansetron 4 mg (units (unknown) date) disintegrating 4 unknown) mg PO Q8H PRN nausea and 07/28/19 (unknown) (no (unknown) (unknown) ondansetron 8 mg (units (unknown) date) disintegrating 8 unknown) mg PO TID PRN Nausea 09/18/19 08/26/21 (unknown) (no (unknown) (unknown) presents under (units (unknown) date) similar unknown) circumstances complaining of generalized abdominal pain (unknown) (no (unknown) (unknown) promethazine (units (u nknown) date) [PROMETHAZINE] unknown) Allergy Mild ERYTHEMA Verified 08/26/21 15:49 (unknown) (no (unknown) (unknown) recent travel. (units (unknown) date) unknown) (unknown) (no (unknown) (unknown) seizures, (units (unkn own) date) incoordination. unknown) (unknown) (no (unknown) (unknown) spray headache #1 (units (unknown) date) ea unknown) (unknown) (no (unknown) (unknown) sumatriptan 5 (units ( unknown) date) mg/actuation nasal unknown) 5 mg intranasal Q2-4H PRN migraine 06/04/21 (unknown) (no (unknown) (unknown) tablet (units (unkno wn) date) unknown) (unknown) (no (unknown) (unknown) tablet vomiting (units (unknown) date) #10 tabs unknown) (unknown) (no (unknown) (unknown) the day she is (units (unknown) date) developed cramping unknown) and tingling in her hands which is not normal (unknown) (no (unknown) (unknown) tobacco type: (units ( unknown) date) vaping unknown) (unknown) (no (unknown) (unknown) without erythema, (units (unknown) date) tonsillar unknown) hypertrophy or exudate. Airway patent. Result panel 7 (unknown) (no (unknown) (unknown) (no value) (units (unk nown) date) unknown) (unknown) (no (unknown) (unknown) Date of Service: (units (unknown) date) 03/20/22 unknown) (unknown) (no (unknown) (unknown) (no value) (units (unk nown) date) unknown) (unknown) (no (unknown) (unknown) 0.5 mg PO DAILY (units (unknown) date) PRN (Reason: unknown) nausea and vomiting) Qty: 10 0RF (unknown) (no (unknown) (unknown) 03/20/22 04:40 (units (unknown) date) unknown) (unknown) (no (unknown) (unknown) 4 mg PO Q8H PRN (units (unknown) date) (Reason: nausea unknown) and vomiting) Qty: 10 0RF (unknown) (no (unknown) (unknown) 5 mg intranasal (units (unknown) date) Q2-4H PRN (Reason: unknown) migraine headache) Qty: 1 0RF (unknown) (no (unknown) (unknown) 8 mg PO TID PRN (units (unknown) date) (Reason: Nausea) unknown) (unknown) (no (unknown) (unknown) ABLE TO (units (unkno wn) date) unknown) (unknown) (no (unknown) (unknown) Allergies (units (unkn own) date) unknown) (unknown) (no (unknown) (unknown) Documented By: KP (units (unknown) date) unknown) (unknown) (no (unknown) (unknown) ED Orders (units (unkn own) date) unknown) (unknown) (no (unknown) (unknown) Emergency Report (units (unknown) date) unknown) (unknown) (no (unknown) (unknown) Home Medications (units (unknown) date) unknown) (unknown) (no (unknown) (unknown) [facility] (units (unknown) date) [address] unknown) [place] [address] (unknown) (no (unknown) (unknown) Lab Results (units (un known) date) unknown) (unknown) (no (unknown) (unknown) Label Comments: (units (unknown) date) unknown) (unknown) (no (unknown) (unknown) Last Admin: (units (un known) date) 03/20/22 05:01 unknown) Dose: 5 mg (unknown) (no (unknown) (unknown) PT STATES (units (unkn own) date) unknown) (unknown) (no (unknown) (unknown) Previous Rx's (units ( unknown) date) unknown) (unknown) (no (unknown) (unknown) Rx Instructions: (units (unknown) date) unknown) (unknown) (no (unknown) (unknown) Stop: 03/20/22 (units (unknown) date) 04:53 unknown) (unknown) (no (unknown) (unknown) Stop: 03/20/22 (units (unknown) date) 11:14 unknown) (unknown) (no (unknown) (unknown) TAKE [facility] (units (unkno wn) date) unknown) (unknown) (no (unknown) (unknown) TO IV SITE (units (unk nown) date) unknown) (unknown) (no (unknown) (unknown) Vital Signs - 8 (units (unknown) date) hr unknown) (unknown) (no (unknown) (unknown) dissolve 1 tablet (units (unknown) date) by mouth up to unknown) three times a day (unknown) (no (unknown) (unknown) into each nostril (units (unknown) date) once; if abdominal unknown) migraine remains, may repeat total dose (unknown) (no (unknown) (unknown) (no value) (units (unk nown) date) unknown) (unknown) (no (unknown) (unknown) 04:40 04:40 (units (un known) date) unknown) (unknown) (no (unknown) (unknown) 03/20/22 03/20/22 (units (unknown) date) Range/Units unknown) (unknown) (no (unknown) (unknown) lorazepam (units (unkn own) date) [Ativan] 0.5 mg unknown) tablet (unknown) (no (unknown) (unknown) ondansetron 4 mg (units (unknown) date) tablet,disintegrat unknown) ing (unknown) (no (unknown) (unknown) ondansetron 8 mg (units (unknown) date) tablet,disintegrat unknown) ing (unknown) (no (unknown) (unknown) sumatriptan 5 (units ( unknown) date) mg/actuation unknown) spray,non-aerosol (unknown) (no (unknown) (unknown) 03/20/22 (units (unkno wn) date) unknown) (unknown) (no (unknown) (unknown) Medication (units (unk nown) date) Instructions unknown) Recorded (unknown) (no (unknown) (unknown) Medication (units (unk nown) date) Instructions unknown) Recorded Confirmed (unknown) (no (unknown) (unknown) rales, or (units (unkn own) date) rhonchi. unknown) (unknown) (no (unknown) (unknown) sounds present in (units (unknown) date) all 4 quadrants unknown) (unknown) (no (unknown) (unknown) vomiting #10 tabs (units (unknown) date) unknown) (unknown) (no (unknown) (unknown) 04:13 (units (unkno wn) date) unknown) (unknown) (no (unknown) (unknown) 03/20/22 04:40 (units (unknown) date) unknown) (unknown) (no (unknown) (unknown) 03/20/22 05:12 (units (unknown) date) unknown) (unknown) (no (unknown) (unknown) 12 point review (units (unknown) date) of systems is unknown) negative except for those stated above (unknown) (no (unknown) (unknown) [address] (units (unkno wn) date) unknown) (unknown) (no (unknown) (unknown) 46-year-old (units (un known) date) female with unknown) history of cyclic vomiting and abdominal migraines (unknown) (no (unknown) (unknown) @ 100 mls/hr IV (units (unknown) date) Q1H KIRIT unknown) (unknown) (no (unknown) (unknown) ALT 36 H (<35) (units (unknown) date) IU/L unknown) (unknown) (no (unknown) (unknown) AST 39 H (14-36) (units (unknown) date) IU/L unknown) (unknown) (no (unknown) (unknown) Abscess (units (unkno wn) date) unknown) (unknown) (no (unknown) (unknown) Age/Sex: 46 / F (units (unknown) date) unknown) (unknown) (no (unknown) (unknown) Albumin 5.8 H (units ( unknown) date) (3.5-5.0) g/dL unknown) (unknown) (no (unknown) (unknown) Albumin/Globulin (units (unknown) date) Ratio 1.1 unknown) (1.0-2.8) (unknown) (no (unknown) (unknown) Alcohol type: (units ( unknown) date) wine unknown) (unknown) (no (unknown) (unknown) Alkaline (units (unkno wn) date) Phosphatase 87 unknown) (38-126) U/L (unknown) (no (unknown) (unknown) Allergy/AdvReac (units (unknown) date) Type Severity unknown) Reaction Status Date / Time (unknown) (no (unknown) (unknown) BACK: Nontender (units (unknown) date) without deformity unknown) or crepitance. No flank tenderness. (unknown) (no (unknown) (unknown) BUN 22 H (7-17) (units (unknown) date) mg/dL unknown) (unknown) (no (unknown) (unknown) BUN/Creatinine (units (unknown) date) Ratio 11.1 (6-22) unknown) (unknown) (no (unknown) (unknown) Baso # (Auto) 0 (units (unknown) date) (0-100) /uL unknown) (unknown) (no (unknown) (unknown) Baso % (Auto) 0.4 (units (unknown) date) (0-2) % unknown) (unknown) (no (unknown) (unknown) Blood Pressure (units (unknown) date) 135/94 H 03/20/22 unknown) 04:13 (unknown) (no (unknown) (unknown) Blood Pressure (units (unknown) date) 135/94 H unknown) (unknown) (no (unknown) (unknown) CARDIOVASCULAR: (units (unknown) date) Denies chest pain, unknown) palpitations, orthopnea, edema, (unknown) (no (unknown) (unknown) CARDIOVASCULAR: (units (unknown) date) Regular rate and unknown) rhythm without murmurs, gallops, or rubs. (unknown) (no (unknown) (unknown) CBC Auto Diff (units ( unknown) date) [Complete Blood unknown) Count AUTO DIFF] Stat (unknown) (no (unknown) (unknown) CMP (units (unkno wn) date) [Comprehensive unknown) Metabolic Panel] Stat (unknown) (no (unknown) (unknown) COVID19 -Nasal (units (unknown) date) RAPID/Pre-Proc unknown) Stat (unknown) (no (unknown) (unknown) Calcium 10.9 H (units (unknown) date) (8.4-10.2) mg/dL unknown) (unknown) (no (unknown) (unknown) Carbon Dioxide 33 (units (unknown) date) H (22-32) mmol/L unknown) (unknown) (no (unknown) (unknown) Chief complaint: (units (unknown) date) Nausea/Vomiting/Di unknown) arrhea (unknown) (no (unknown) (unknown) Chloride 83 L (units ( unknown) date) (98-107) mmol/L unknown) (unknown) (no (unknown) (unknown) Chronic abdominal (units (unknown) date) pain unknown) (unknown) (no (unknown) (unknown) Course (units (unkno wn) date) unknown) (unknown) (no (unknown) (unknown) Creatinine 1.99 H (units (unknown) date) (0.52-1.04) mg/dL unknown) (unknown) (no (unknown) (unknown) Cyclic vomiting (units (unknown) date) syndrome unknown) (unknown) (no (unknown) (unknown) : 1975 (units (unknown) date) Acct:[id number] unknown) (unknown) (no (unknown) (unknown) Daughter (units (unkno wn) date) Angio-edema unknown) (unknown) (no (unknown) (unknown) Departure (units (unkn own) date) unknown) (unknown) (no (unknown) (unknown) Discharge Plan (units (unknown) date) unknown) (unknown) (no (unknown) (unknown) Discontinued (units (u nknown) date) Medications unknown) (unknown) (no (unknown) (unknown) ENT: Dry mucous (units (unknown) date) membranes Nose unknown) without bleeding, purulent drainage. Throat (unknown) (no (unknown) (unknown) ER Physician: (units ( unknown) date) Tremayne Jovel D.O. unknown) (unknown) (no (unknown) (unknown) EXTREMITIES: No (units (unknown) date) edema or joint unknown) tenderness. (unknown) (no (unknown) (unknown) EYES: Pupils (units (u nknown) date) equal round and unknown) reactive. Extraocular motions intact. No scleral (unknown) (no (unknown) (unknown) Eos # (Auto) 0 (units (unknown) date) (0-450) /uL unknown) (unknown) (no (unknown) (unknown) Eos % (Auto) 0.0 (units (unknown) date) L (2-4) % unknown) (unknown) (no (unknown) (unknown) Estimated GFR 30 (units (unknown) date) L (>60) mL/min unknown) (unknown) (no (unknown) (unknown) Exam (units (unkno wn) date) unknown) (unknown) (no (unknown) (unknown) Exam Narrative: (units (unknown) date) unknown) (unknown) (no (unknown) (unknown) Family History (units (unknown) date) (Reviewed 03/20/22 unknown) @ 05:09 by Tremayne Jovel DO) (unknown) (no (unknown) (unknown) Family history of (units (unknown) date) angioedema unknown) (unknown) (no (unknown) (unknown) Father (units (unkno wn) date) Hypertension unknown) (unknown) (no (unknown) (unknown) GASTROINTESTINAL: (units (unknown) date) See HPI unknown) (unknown) (no (unknown) (unknown) GASTROINTESTINAL: (units (unknown) date) Abdomen soft, unknown) generalized abdominal pain, nondistended. Bowel (unknown) (no (unknown) (unknown) GENERAL: Denies (units (unknown) date) chills, fatigue, unknown) malaise, fever, sweats. (unknown) (no (unknown) (unknown) GENERAL: [46] (units ( unknown) date) year old patient unknown) appears stated age. Well-developed patient, in (unknown) (no (unknown) (unknown) : Denies (units (unk nown) date) dysuria, unknown) frequency, incontinence, hematuria, urinary retention. (unknown) (no (unknown) (unknown) General (units (unkno wn) date) unknown) (unknown) (no (unknown) (unknown) GenericComposite[ (units (unknown) date) Plt Count 273 unknown) (150-400) X10^3/uL ] (unknown) (no (unknown) (unknown) GenericComposite[ (units (unknown) date) RBC 4.86 (4.0-5.2) unknown) X10^6/uL ] (unknown) (no (unknown) (unknown) GenericComposite[ (units (unknown) date) WBC 12.0 H unknown) (4.5-11.0) X10^3/uL ] (unknown) (no (unknown) (unknown) Globulin 5.2 H (units (unknown) date) (1.7-4.1) g/dL unknown) (unknown) (no (unknown) (unknown) Glucose 142 H (units ( unknown) date) (70-100) mg/dL unknown) (unknown) (no (unknown) (unknown) HEAD: Atraumatic. (units (unknown) date) Normocephalic. unknown) (unknown) (no (unknown) (unknown) HEENT: Denies (units ( unknown) date) sinus pain, ear unknown) pain, sore throat, difficulty swallowing, (unknown) (no (unknown) (unknown) HPI - (units (unkno wn) date) Nausea/Vomiting/Di unknown) arrhea (unknown) (no (unknown) (unknown) HPI Narrative: (units (unknown) date) unknown) (unknown) (no (unknown) (unknown) Haloperidol (units (un known) date) (Haloperidol 5 unknown) Mg/Ml Vial) 5 mg IV NOW ONE (unknown) (no (unknown) (unknown) Hct 44.5 (36-46) (units (unknown) date) % unknown) (unknown) (no (unknown) (unknown) Hgb 15.3 (units (unkno wn) date) (12.0-16.0) g/dL unknown) (unknown) (no (unknown) (unknown) History of (units (unk nown) date) Present Illness unknown) (unknown) (no (unknown) (unknown) Hx of (units (unkno wn) date) appendectomy unknown) (unknown) (no (unknown) (unknown) Hx of (units (unkno wn) date) cholecystectomy unknown) (unknown) (no (unknown) (unknown) Initial Vital (units ( unknown) date) Signs unknown) (unknown) (no (unknown) (unknown) Initial Vital (units ( unknown) date) Signs: unknown) (unknown) (no (unknown) (unknown) Sergo Martino MD (units (unknown) date) [Primary Care unknown) Provider] - (unknown) (no (unknown) (unknown) Lab Data (units (unkno wn) date) unknown) (unknown) (no (unknown) (unknown) Labs: (units (unkno wn) date) unknown) (unknown) (no (unknown) (unknown) Lymph # (Auto) (units (unknown) date) 1000 L (3395-5918) unknown) /uL (unknown) (no (unknown) (unknown) Lymph % (Auto) (units (unknown) date) 8.1 L (25-40) % unknown) (unknown) (no (unknown) (unknown) MCH 31.6 (26-34) (units (unknown) date) PG unknown) (unknown) (no (unknown) (unknown) MCHC 34.4 (30-36) (units (unknown) date) % unknown) (unknown) (no (unknown) (unknown) MCV 91.7 (units (unkn own) date) (80-100) fL unknown) (unknown) (no (unknown) (unknown) MDM - (units (unkno wn) date) Nausea/Vomiting/Di unknown) arrhea (unknown) (no (unknown) (unknown) 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 (unknown) (no (unknown) (unknown) MUSCULOSKELETAL: (units (unknown) date) denies weakness, unknown) joint pain, or bony pain (unknown) (no (unknown) (unknown) Marijuana use, (units (unknown) date) continuous unknown) (unknown) (no (unknown) (unknown) Medical History (units (unknown) date) (Reviewed 03/20/22 unknown) @ 05:09 by Tremayne Jovel DO) (unknown) (no (unknown) (unknown) Mode of arrival: (units (unknown) date) Wheelchair unknown) (unknown) (no (unknown) (unknown) Centre # (Auto) (units ( unknown) date) 1000 H (0-900) /uL unknown) (unknown) (no (unknown) (unknown) Centre % (Auto) 8.3 (units (unknown) date) (3-14) % unknown) (unknown) (no (unknown) (unknown) Mother Diabetes (units (unknown) date) mellitus unknown) (unknown) (no (unknown) (unknown) NECK: Trachea (units ( unknown) date) midline. Non unknown) tender (unknown) (no (unknown) (unknown) NEURO: AOx3. (units (u nknown) date) unknown) (unknown) (no (unknown) (unknown) NEUROLOGIC: (units (un known) date) Denies weakness, unknown) headache, numbness, change in speech, confusion, (unknown) (no (unknown) (unknown) Narrative (units (unkn own) date) unknown) (unknown) (no (unknown) (unknown) Narrative: (units (unk nown) date) unknown) (unknown) (no (unknown) (unknown) Neut # (Auto) (units ( unknown) date) 99375 H unknown) (2606-9686) /uL (unknown) (no (unknown) (unknown) Neut % (Auto) (units ( unknown) date) 83.2 H (50-75) % unknown) (unknown) (no (unknown) (unknown) No Action (units (unkn own) date) unknown) (unknown) (no (unknown) (unknown) Ordered: (units (unkno wn) date) unknown) (unknown) (no (unknown) (unknown) Orders (units (unkno wn) date) unknown) (unknown) (no (unknown) (unknown) Other Colon (units (un known) date) cancer unknown) (unknown) (no (unknown) (unknown) Oxygen Delivery (units (unknown) date) Method 03/20/22 unknown) 04:13 (unknown) (no (unknown) (unknown) Oxygen Delivery (units (unknown) date) Method Room Air unknown) (unknown) (no (unknown) (unknown) POTASSIUM (units (unkn own) date) CHLORIDE IN WATER unknown) (Potassium Cl 10 Meq/100 Ml Lidia) 10 meq in 100 mls (unknown) (no (unknown) (unknown) PSYCHIATRIC: No (units (unknown) date) concerning unknown) psychosocial issues. (unknown) (no (unknown) (unknown) Pancreatitis (units (u nknown) date) unknown) (unknown) (no (unknown) (unknown) Patient History (units (unknown) date) unknown) (unknown) (no (unknown) (unknown) Patient: (units (unkno wn) date) Harshal,Dameon A MR#: unknown) [id number] (unknown) (no (unknown) (unknown) Potassium 2.6 L* (units (unknown) date) (3.4-5.1) mmol/L unknown) (unknown) (no (unknown) (unknown) Prescriptions: (units (unknown) date) unknown) (unknown) (no (unknown) (unknown) Pulse Oximetry (units (unknown) date) 100 03/20/22 04:13 unknown) (unknown) (no (unknown) (unknown) Pulse Oximetry (units (unknown) date) 100 unknown) (unknown) (no (unknown) (unknown) Pulse Rate 99 H (units (unknown) date) 03/20/22 04:13 unknown) (unknown) (no (unknown) (unknown) Pulse Rate 99 H (units (unknown) date) unknown) (unknown) (no (unknown) (unknown) RDW 13.7 (units (unkno wn) date) (11.6-14.8) % unknown) (unknown) (no (unknown) (unknown) RESPIRATORY: Clear (units (unknown) date) to auscultation. unknown) Breath sounds equal bilaterally. No wheezes, (unknown) (no (unknown) (unknown) RESPIRATORY: (units (u nknown) date) Denies dyspnea, unknown) cough, wheezing, hemoptysis, sputum. (unknown) (no (unknown) (unknown) Referrals: (units (unk nown) date) unknown) (unknown) (no (unknown) (unknown) Related Data (units (u nknown) date) unknown) (unknown) (no (unknown) (unknown) Respiratory Rate (units (unknown) date) 18 03/20/22 04:13 unknown) (unknown) (no (unknown) (unknown) Respiratory Rate (units (unknown) date) 18 unknown) (unknown) (no (unknown) (unknown) Result diagrams: (units (unknown) date) unknown) (unknown) (no (unknown) (unknown) Review of Systems (units (unknown) date) unknown) (unknown) (no (unknown) (unknown) SKIN: Denies (units (u nknown) date) rash, skin unknown) lesions, or other (unknown) (no (unknown) (unknown) SKIN: No rash or (units (unknown) date) erythema of unknown) visible areas (unknown) (no (unknown) (unknown) Signed By: (units (unk nown) date) unknown) (unknown) (no (unknown) (unknown) Smoking Status: (units (unknown) date) Current every day unknown) smoker (unknown) (no (unknown) (unknown) Smoking Status: (units (unknown) date) Current every day unknown) smoker (unknown) (no (unknown) (unknown) Social History (units (unknown) date) (Reviewed 03/20/22 unknown) @ 05:09 by Tremayne Jovel DO) (unknown) (no (unknown) (unknown) Sodium 142 (units (unk nown) date) (137-145) mmol/L unknown) (unknown) (no (unknown) (unknown) Source: patient (units (unknown) date) unknown) (unknown) (no (unknown) (unknown) Stated complaint: (units (unknown) date) Vomiting, SOB, unknown) numbness in hands (unknown) (no (unknown) (unknown) Substance Use (units ( unknown) date) Type: marijuana unknown) (unknown) (no (unknown) (unknown) Surgical History (units (unknown) date) (Reviewed 03/20/22 unknown) @ 05:09 by Tremayne Jovel DO) (unknown) (no (unknown) (unknown) Temperature 98.5 (units (unknown) date) F 03/20/22 04:13 unknown) (unknown) (no (unknown) (unknown) Temperature 98.5 (units (unknown) date) F unknown) (unknown) (no (unknown) (unknown) Time Seen by (units (u nknown) date) Provider: 03/20/22 unknown) 04:19 (unknown) (no (unknown) (unknown) Total Bilirubin (units (unknown) date) 1.7 H (0.2-1.3) unknown) mg/dL (unknown) (no (unknown) (unknown) Total Protein (units ( unknown) date) 11.0 H (6.3-8.2) unknown) g/dL (unknown) (no (unknown) (unknown) Vital Signs (units (un known) date) unknown) (unknown) (no (unknown) (unknown) Vital signs: (units (u nknown) date) unknown) (unknown) (no (unknown) (unknown) [Embedded Image (units (unknown) date) Not Available] unknown) (unknown) (no (unknown) (unknown) [METOCLOPRAMIDE] (units (unknown) date) unknown) (unknown) (no (unknown) (unknown) alcohol intake (units (unknown) date) frequency: 3 or unknown) more drinks per day (unknown) (no (unknown) (unknown) and frequent (units (u nknown) date) vomiting over the unknown) past 2 days despite the use of her home Zofran (unknown) (no (unknown) (unknown) and suppository. (units (unknown) date) She has terrible unknown) appetite and states that over the course of (unknown) (no (unknown) (unknown) dizziness. (units (unk nown) date) unknown) (unknown) (no (unknown) (unknown) for her. She (units ( unknown) date) denies any new unknown) medications or change in her diet. She denies any (unknown) (no (unknown) (unknown) household (units (unkn own) date) members: spouse unknown) (unknown) (no (unknown) (unknown) icterus. No (units (un known) date) injection or unknown) drainage. (unknown) (no (unknown) (unknown) latex [LATEX] (units ( unknown) date) Allergy Unknown unknown) Verified 11/02/21 15:46 (unknown) (no (unknown) (unknown) lorazepam 0.5 mg (units (unknown) date) tablet (Ativan) unknown) 0.5 mg PO DAILY PRN nausea and 11/03/21 (unknown) (no (unknown) (unknown) metoclopramide (units (unknown) date) AdvReac Unknown unknown) DYSTONIA Verified 11/02/21 15:46 (unknown) (no (unknown) (unknown) mild distress. (units (unknown) date) unknown) (unknown) (no (unknown) (unknown) once after at (units ( unknown) date) least 2 hours unknown) (unknown) (no (unknown) (unknown) ondansetron 4 mg (units (unknown) date) disintegrating 4 unknown) mg PO Q8H PRN nausea and 07/28/19 (unknown) (no (unknown) (unknown) ondansetron 8 mg (units (unknown) date) disintegrating 8 unknown) mg PO TID PRN Nausea 09/18/19 08/26/21 (unknown) (no (unknown) (unknown) presents under (units (unknown) date) similar unknown) circumstances complaining of generalized abdominal pain (unknown) (no (unknown) (unknown) promethazine (units (u nknown) date) [PROMETHAZINE] unknown) Allergy Mild ERYTHEMA Verified 08/26/21 15:49 (unknown) (no (unknown) (unknown) recent travel. (units (unknown) date) unknown) (unknown) (no (unknown) (unknown) seizures, (units (unkn own) date) incoordination. unknown) (unknown) (no (unknown) (unknown) spray headache #1 (units (unknown) date) ea unknown) (unknown) (no (unknown) (unknown) sumatriptan 5 (units ( unknown) date) mg/actuation nasal unknown) 5 mg intranasal Q2-4H PRN migraine 06/04/21 (unknown) (no (unknown) (unknown) tablet (units (unkno wn) date) unknown) (unknown) (no (unknown) (unknown) tablet vomiting (units (unknown) date) #10 tabs unknown) (unknown) (no (unknown) (unknown) the day she is (units (unknown) date) developed cramping unknown) and tingling in her hands which is not normal (unknown) (no (unknown) (unknown) tobacco type: (units ( unknown) date) vaping unknown) (unknown) (no (unknown) (unknown) without erythema, (units (unknown) date) tonsillar unknown) hypertrophy or exudate. Airway patent. Result panel 8 (unknown) (no (unknown) (unknown) (no value) (units (unk nown) date) unknown) (unknown) (no (unknown) (unknown) Date of Service: (units (unknown) date) 03/20/22 unknown) (unknown) (no (unknown) (unknown) (no value) (units (unk nown) date) unknown) (unknown) (no (unknown) (unknown) 0.5 mg PO DAILY (units (unknown) date) PRN (Reason: unknown) nausea and vomiting) Qty: 10 0RF (unknown) (no (unknown) (unknown) 03/20/22 04:40 (units (unknown) date) unknown) (unknown) (no (unknown) (unknown) 4 mg PO Q8H PRN (units (unknown) date) (Reason: nausea unknown) and vomiting) Qty: 10 0RF (unknown) (no (unknown) (unknown) 5 mg intranasal (units (unknown) date) Q2-4H PRN (Reason: unknown) migraine headache) Qty: 1 0RF (unknown) (no (unknown) (unknown) 8 mg PO TID PRN (units (unknown) date) (Reason: Nausea) unknown) (unknown) (no (unknown) (unknown) ABLE TO (units (unkno wn) date) unknown) (unknown) (no (unknown) (unknown) Allergies (units (unkn own) date) unknown) (unknown) (no (unknown) (unknown) Documented By: (units (unknown) date) KMW unknown) (unknown) (no (unknown) (unknown) Documented By: KP (units (unknown) date) unknown) (unknown) (no (unknown) (unknown) ED Orders (units (unkn own) date) unknown) (unknown) (no (unknown) (unknown) Emergency Report (units (unknown) date) unknown) (unknown) (no (unknown) (unknown) Home Medications (units (unknown) date) unknown) (unknown) (no (unknown) (unknown) [facility] (units (unknown) date) [address] unknown) [place] [address] (unknown) (no (unknown) (unknown) Lab Results (units (un known) date) unknown) (unknown) (no (unknown) (unknown) Label Comments: (units (unknown) date) unknown) (unknown) (no (unknown) (unknown) Last Admin: (units (un known) date) 03/20/22 05:01 unknown) Dose: 5 mg (unknown) (no (unknown) (unknown) Last Admin: (units (un known) date) 03/20/22 05:28 unknown) Dose: 100 mls/hr (unknown) (no (unknown) (unknown) PT [place] (units (unkn own) date) unknown) (unknown) (no (unknown) (unknown) Previous Rx's (units ( unknown) date) unknown) (unknown) (no (unknown) (unknown) Rx Instructions: (units (unknown) date) unknown) (unknown) (no (unknown) (unknown) Stop: 03/20/22 (units (unknown) date) 04:53 unknown) (unknown) (no (unknown) (unknown) Stop: 03/20/22 (units (unknown) date) 11:14 unknown) (unknown) (no (unknown) (unknown) TAKE [facility] (units (unkno wn) date) unknown) (unknown) (no (unknown) (unknown) TO IV SITE (units (unk nown) date) unknown) (unknown) (no (unknown) (unknown) Vital Signs - 8 (units (unknown) date) hr unknown) (unknown) (no (unknown) (unknown) dissolve 1 tablet (units (unknown) date) by mouth up to unknown) three times a day (unknown) (no (unknown) (unknown) into each nostril (units (unknown) date) once; if abdominal unknown) migraine remains, may repeat total dose (unknown) (no (unknown) (unknown) (no value) (units (unk nown) date) unknown) (unknown) (no (unknown) (unknown) 04:40 04:40 (units (un known) date) unknown) (unknown) (no (unknown) (unknown) 03/20/22 03/20/22 (units (unknown) date) Range/Units unknown) (unknown) (no (unknown) (unknown) lorazepam (units (unkn own) date) [Ativan] 0.5 mg unknown) tablet (unknown) (no (unknown) (unknown) ondansetron 4 mg (units (unknown) date) tablet,disintegrat unknown) ing (unknown) (no (unknown) (unknown) ondansetron 8 mg (units (unknown) date) tablet,disintegrat unknown) ing (unknown) (no (unknown) (unknown) sumatriptan 5 (units ( unknown) date) mg/actuation unknown) spray,non-aerosol (unknown) (no (unknown) (unknown) 03/20/22 (units (unkno wn) date) unknown) (unknown) (no (unknown) (unknown) Medication (units (unk nown) date) Instructions unknown) Recorded (unknown) (no (unknown) (unknown) Medication (units (unk nown) date) Instructions unknown) Recorded Confirmed (unknown) (no (unknown) (unknown) Nausea and (units (unk nown) date) vomiting, Cyclic unknown) vomiting syndrome, Acute hypokalemia, Acute kidney (unknown) (no (unknown) (unknown) rales, or (units (unkn own) date) rhonchi. unknown) (unknown) (no (unknown) (unknown) sounds present in (units (unknown) date) all 4 quadrants unknown) (unknown) (no (unknown) (unknown) vomiting #10 tabs (units (unknown) date) unknown) (unknown) (no (unknown) (unknown) 04:13 (units (unkno wn) date) unknown) (unknown) (no (unknown) (unknown) 03/20/22 04:40 (units (unknown) date) unknown) (unknown) (no (unknown) (unknown) 03/20/22 05:34 (units (unknown) date) unknown) (unknown) (no (unknown) (unknown) 03/20/22 05:35 (units (unknown) date) unknown) (unknown) (no (unknown) (unknown) 12 point review (units (unknown) date) of systems is unknown) negative except for those stated above (unknown) (no (unknown) (unknown) [id number] (units (unkno wn) date) unknown) (unknown) (no (unknown) (unknown) 38-year-old (units (un known) date) female with unknown) history of cyclic vomiting and abdominal migraines (unknown) (no (unknown) (unknown) 46-year-old (units (un known) date) female with unknown) history of cyclic vomiting and abdominal migraines (unknown) (no (unknown) (unknown) @ 100 mls/hr IV (units (unknown) date) Q1H KIRIT unknown) (unknown) (no (unknown) (unknown) ALT 36 H (<35) (units (unknown) date) IU/L unknown) (unknown) (no (unknown) (unknown) AST 39 H (14-36) (units (unknown) date) IU/L unknown) (unknown) (no (unknown) (unknown) Abscess (units (unkno wn) date) unknown) (unknown) (no (unknown) (unknown) Age/Sex: 46 / F (units (unknown) date) unknown) (unknown) (no (unknown) (unknown) Albumin 5.8 H (units ( unknown) date) (3.5-5.0) g/dL unknown) (unknown) (no (unknown) (unknown) Albumin/Globulin (units (unknown) date) Ratio 1.1 unknown) (1.0-2.8) (unknown) (no (unknown) (unknown) Alcohol type: (units ( unknown) date) wine unknown) (unknown) (no (unknown) (unknown) Alkaline (units (unkno wn) date) Phosphatase 87 unknown) (38-126) U/L (unknown) (no (unknown) (unknown) Allergy/AdvReac (units (unknown) date) Type Severity unknown) Reaction Status Date / Time (unknown) (no (unknown) (unknown) BACK: Nontender (units (unknown) date) without deformity unknown) or crepitance. No flank tenderness. (unknown) (no (unknown) (unknown) BUN 22 H (7-17) (units (unknown) date) mg/dL unknown) (unknown) (no (unknown) (unknown) BUN/Creatinine (units (unknown) date) Ratio 11.1 (6-22) unknown) (unknown) (no (unknown) (unknown) Baso # (Auto) 0 (units (unknown) date) (0-100) /uL unknown) (unknown) (no (unknown) (unknown) Baso % (Auto) 0.4 (units (unknown) date) (0-2) % unknown) (unknown) (no (unknown) (unknown) Blood Pressure (units (unknown) date) 135/94 H 03/20/22 unknown) 04:13 (unknown) (no (unknown) (unknown) Blood Pressure (units (unknown) date) 135/94 H unknown) (unknown) (no (unknown) (unknown) CARDIOVASCULAR: (units (unknown) date) Denies chest pain, unknown) palpitations, orthopnea, edema, (unknown) (no (unknown) (unknown) CARDIOVASCULAR: (units (unknown) date) Regular rate and unknown) rhythm without murmurs, gallops, or rubs. (unknown) (no (unknown) (unknown) CBC Auto Diff (units ( unknown) date) [Complete Blood unknown) Count AUTO DIFF] Stat (unknown) (no (unknown) (unknown) CMP (units (unkno wn) date) [Comprehensive unknown) Metabolic Panel] Stat (unknown) (no (unknown) (unknown) COVID19 -Nasal (units (unknown) date) RAPID/Pre-Proc unknown) Stat (unknown) (no (unknown) (unknown) Calcium 10.9 H (units (unknown) date) (8.4-10.2) mg/dL unknown) (unknown) (no (unknown) (unknown) Carbon Dioxide 33 (units (unknown) date) H (22-32) mmol/L unknown) (unknown) (no (unknown) (unknown) Chief complaint: (units (unknown) date) Nausea/Vomiting/Di unknown) arrhea (unknown) (no (unknown) (unknown) Chloride 83 L (units ( unknown) date) (98-107) mmol/L unknown) (unknown) (no (unknown) (unknown) Chronic abdominal (units (unknown) date) pain unknown) (unknown) (no (unknown) (unknown) Clinical (units (unkno wn) date) Impression: unknown) (unknown) (no (unknown) (unknown) Course (units (unkno wn) date) unknown) (unknown) (no (unknown) (unknown) Creatinine 1.99 H (units (unknown) date) (0.52-1.04) mg/dL unknown) (unknown) (no (unknown) (unknown) Cyclic vomiting (units (unknown) date) syndrome unknown) (unknown) (no (unknown) (unknown) : 1975 (units (unknown) date) Acct:[id number] unknown) (unknown) (no (unknown) (unknown) Daughter (units (unkno wn) date) Angio-edema unknown) (unknown) (no (unknown) (unknown) Departure (units (unkn own) date) unknown) (unknown) (no (unknown) (unknown) Discharge Plan (units (unknown) date) unknown) (unknown) (no (unknown) (unknown) Discontinued (units (u nknown) date) Medications unknown) (unknown) (no (unknown) (unknown) ENT: Dry mucous (units (unknown) date) membranes Nose unknown) without bleeding, purulent drainage. Throat (unknown) (no (unknown) (unknown) ER Physician: (units ( unknown) date) Tremayne Jovel D.O. unknown) (unknown) (no (unknown) (unknown) EXTREMITIES: No (units (unknown) date) edema or joint unknown) tenderness. (unknown) (no (unknown) (unknown) EYES: Pupils (units (u nknown) date) equal round and unknown) reactive. Extraocular motions intact. No scleral (unknown) (no (unknown) (unknown) Eos # (Auto) 0 (units (unknown) date) (0-450) /uL unknown) (unknown) (no (unknown) (unknown) Eos % (Auto) 0.0 (units (unknown) date) L (2-4) % unknown) (unknown) (no (unknown) (unknown) Estimated GFR 30 (units (unknown) date) L (>60) mL/min unknown) (unknown) (no (unknown) (unknown) Exam (units (unkno wn) date) unknown) (unknown) (no (unknown) (unknown) Exam Narrative: (units (unknown) date) unknown) (unknown) (no (unknown) (unknown) Family History (units (unknown) date) (Reviewed 03/20/22 unknown) @ 05:09 by Tremayne Jovel DO) (unknown) (no (unknown) (unknown) Family history of (units (unknown) date) angioedema unknown) (unknown) (no (unknown) (unknown) Father (units (unkno wn) date) Hypertension unknown) (unknown) (no (unknown) (unknown) GASTROINTESTINAL: (units (unknown) date) See HPI unknown) (unknown) (no (unknown) (unknown) GASTROINTESTINAL: (units (unknown) date) Abdomen soft, unknown) generalized abdominal pain, nondistended. Bowel (unknown) (no (unknown) (unknown) GENERAL: Denies (units (unknown) date) chills, fatigue, unknown) malaise, fever, sweats. (unknown) (no (unknown) (unknown) GENERAL: [46] (units ( unknown) date) year old patient unknown) appears stated age. Well-developed patient, in (unknown) (no (unknown) (unknown) : Denies (units (unk nown) date) dysuria, unknown) frequency, incontinence, hematuria, urinary retention. (unknown) (no (unknown) (unknown) General (units (unkno wn) date) unknown) (unknown) (no (unknown) (unknown) GenericComposite[ (units (unknown) date) Plt Count 273 unknown) (150-400) X10^3/uL ] (unknown) (no (unknown) (unknown) GenericComposite[ (units (unknown) date) RBC 4.86 unknown) (4.0-5.2) X10^6/uL ] (unknown) (no (unknown) (unknown) GenericComposite[ (units (unknown) date) WBC 12.0 H unknown) (4.5-11.0) X10^3/uL ] (unknown) (no (unknown) (unknown) Globulin 5.2 H (units (unknown) date) (1.7-4.1) g/dL unknown) (unknown) (no (unknown) (unknown) Glucose 142 H (units ( unknown) date) (70-100) mg/dL unknown) (unknown) (no (unknown) (unknown) HEAD: Atraumatic. (units (unknown) date) Normocephalic. unknown) (unknown) (no (unknown) (unknown) HEENT: Denies (units ( unknown) date) sinus pain, ear unknown) pain, sore throat, difficulty swallowing, (unknown) (no (unknown) (unknown) HPI - (units (unkno wn) date) Nausea/Vomiting/Di unknown) arrhea (unknown) (no (unknown) (unknown) HPI Narrative: (units (unknown) date) unknown) (unknown) (no (unknown) (unknown) Haloperidol (units (un known) date) (Haloperidol 5 unknown) Mg/Ml Vial) 5 mg IV NOW ONE (unknown) (no (unknown) (unknown) Hct 44.5 (36-46) (units (unknown) date) % unknown) (unknown) (no (unknown) (unknown) Hgb 15.3 (units (unkno wn) date) (12.0-16.0) g/dL unknown) (unknown) (no (unknown) (unknown) History of (units (unk nown) date) Present Illness unknown) (unknown) (no (unknown) (unknown) Hx of (units (unkno wn) date) appendectomy unknown) (unknown) (no (unknown) (unknown) Hx of (units (unkno wn) date) cholecystectomy unknown) (unknown) (no (unknown) (unknown) Initial Vital (units ( unknown) date) Signs unknown) (unknown) (no (unknown) (unknown) Initial Vital (units ( unknown) date) Signs: unknown) (unknown) (no (unknown) (unknown) Sergo Martino MD (units (unknown) date) [Primary Care unknown) Provider] - (unknown) (no (unknown) (unknown) Ketones (units (unkno wn) date) (Beta-Hydroxybutyr unknown) ate) Stat (unknown) (no (unknown) (unknown) Lab Data (units (unkno wn) date) unknown) (unknown) (no (unknown) (unknown) Labs: (units (unkno wn) date) unknown) (unknown) (no (unknown) (unknown) Lactate (Lactic (units (unknown) date) Acid) Stat unknown) (unknown) (no (unknown) (unknown) Lymph # (Auto) (units (unknown) date) 1000 L (9413-2067) unknown) /uL (unknown) (no (unknown) (unknown) Lymph % (Auto) (units (unknown) date) 8.1 L (25-40) % unknown) (unknown) (no (unknown) (unknown) MCH 31.6 (26-34) (units (unknown) date) PG unknown) (unknown) (no (unknown) (unknown) MCHC 34.4 (30-36) (units (unknown) date) % unknown) (unknown) (no (unknown) (unknown) MCV 91.7 (80-100) (units (unknown) date) fL unknown) (unknown) (no (unknown) (unknown) MDM - (units (unkno wn) date) Nausea/Vomiting/Di unknown) arrhea (unknown) (no (unknown) (unknown) MDM Narrative (units ( unknown) date) unknown) (unknown) (no (unknown) (unknown) 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 (unknown) (no (unknown) (unknown) MUSCULOSKELETAL: (units (unknown) date) denies weakness, unknown) joint pain, or bony pain (unknown) (no (unknown) (unknown) Marijuana use, (units (unknown) date) continuous unknown) (unknown) (no (unknown) (unknown) Medical History (units (unknown) date) (Reviewed 03/20/22 unknown) @ 05:09 by Tremayne Jovel DO) (unknown) (no (unknown) (unknown) Medical decision (units (unknown) date) making narrative: unknown) (unknown) (no (unknown) (unknown) Mode of arrival: (units (unknown) date) Wheelchair unknown) (unknown) (no (unknown) (unknown) Centre # (Auto) (units ( unknown) date) 1000 H (0-900) /uL unknown) (unknown) (no (unknown) (unknown) Centre % (Auto) 8.3 (units (unknown) date) (3-14) % unknown) (unknown) (no (unknown) (unknown) Mother Diabetes (units (unknown) date) mellitus unknown) (unknown) (no (unknown) (unknown) NECK: Trachea (units ( unknown) date) midline. Non unknown) tender (unknown) (no (unknown) (unknown) NEURO: AOx3. (units (u nknown) date) unknown) (unknown) (no (unknown) (unknown) NEUROLOGIC: (units (un known) date) Denies weakness, unknown) headache, numbness, change in speech, confusion, (unknown) (no (unknown) (unknown) Narrative (units (unkn own) date) unknown) (unknown) (no (unknown) (unknown) Narrative: (units (unk nown) date) unknown) (unknown) (no (unknown) (unknown) Neut # (Auto) (units ( unknown) date) 77494 H unknown) (7240-4805) /uL (unknown) (no (unknown) (unknown) Neut % (Auto) (units ( unknown) date) 83.2 H (50-75) % unknown) (unknown) (no (unknown) (unknown) No Action (units (unkn own) date) unknown) (unknown) (no (unknown) (unknown) Ordered: (units (unkno wn) date) unknown) (unknown) (no (unknown) (unknown) Orders (units (unkno wn) date) unknown) (unknown) (no (unknown) (unknown) Other Colon (units (un known) date) cancer unknown) (unknown) (no (unknown) (unknown) Oxygen Delivery (units (unknown) date) Method 03/20/22 unknown) 04:13 (unknown) (no (unknown) (unknown) Oxygen Delivery (units (unknown) date) Method Room Air unknown) (unknown) (no (unknown) (unknown) POTASSIUM (units (unkn own) date) CHLORIDE IN WATER unknown) (Potassium Cl 10 Meq/100 Ml Lidia) 10 meq in 100 mls (unknown) (no (unknown) (unknown) PSYCHIATRIC: No (units (unknown) date) concerning unknown) psychosocial issues. (unknown) (no (unknown) (unknown) Pancreatitis (units (u nknown) date) unknown) (unknown) (no (unknown) (unknown) Patient (units (unkno wn) date) Disposition: unknown) Admitted As Inpatient (unknown) (no (unknown) (unknown) Patient History (units (unknown) date) unknown) (unknown) (no (unknown) (unknown) Patient: (units (unkno wn) date) Dameon Castro MR#: unknown) [id number] (unknown) (no (unknown) (unknown) Potassium 2.6 L* (units (unknown) date) (3.4-5.1) mmol/L unknown) (unknown) (no (unknown) (unknown) Prescriptions: (units (unknown) date) unknown) (unknown) (no (unknown) (unknown) Pulse Oximetry (units (unknown) date) 100 03/20/22 04:13 unknown) (unknown) (no (unknown) (unknown) Pulse Oximetry (units (unknown) date) 100 unknown) (unknown) (no (unknown) (unknown) Pulse Rate 99 H (units (unknown) date) 03/20/22 04:13 unknown) (unknown) (no (unknown) (unknown) Pulse Rate 99 H (units (unknown) date) unknown) (unknown) (no (unknown) (unknown) RDW 13.7 (units (unkno wn) date) (11.6-14.8) % unknown) (unknown) (no (unknown) (unknown) RESPIRATORY: Clear (units (unknown) date) to auscultation. unknown) Breath sounds equal bilaterally. No wheezes, (unknown) (no (unknown) (unknown) RESPIRATORY: (units (u nknown) date) Denies dyspnea, unknown) cough, wheezing, hemoptysis, sputum. (unknown) (no (unknown) (unknown) Referrals: (units (unk nown) date) unknown) (unknown) (no (unknown) (unknown) Related Data (units (u nknown) date) unknown) (unknown) (no (unknown) (unknown) Respiratory Rate (units (unknown) date) 18 03/20/22 04:13 unknown) (unknown) (no (unknown) (unknown) Respiratory Rate (units (unknown) date) 18 unknown) (unknown) (no (unknown) (unknown) Result diagrams: (units (unknown) date) unknown) (unknown) (no (unknown) (unknown) Review of Systems (units (unknown) date) unknown) (unknown) (no (unknown) (unknown) SKIN: Denies (units (u nknown) date) rash, skin unknown) lesions, or other (unknown) (no (unknown) (unknown) SKIN: No rash or (units (unknown) date) erythema of unknown) visible areas (unknown) (no (unknown) (unknown) Signed By: (units (unk nown) date) unknown) (unknown) (no (unknown) (unknown) Smoking Status: (units (unknown) date) Current every day unknown) smoker (unknown) (no (unknown) (unknown) Smoking Status: (units (unknown) date) Current every day unknown) smoker (unknown) (no (unknown) (unknown) Social History (units (unknown) date) (Reviewed 03/20/22 unknown) @ 05:09 by Tremayne Jovel DO) (unknown) (no (unknown) (unknown) Sodium 142 (units (unk nown) date) (137-145) mmol/L unknown) (unknown) (no (unknown) (unknown) Source: patient (units (unknown) date) unknown) (unknown) (no (unknown) (unknown) Stated complaint: (units (unknown) date) Vomiting, SOB, unknown) numbness in hands (unknown) (no (unknown) (unknown) Substance Use (units ( unknown) date) Type: marijuana unknown) (unknown) (no (unknown) (unknown) Surgical History (units (unknown) date) (Reviewed 03/20/22 unknown) @ 05:09 by Tremayne Jovel DO) (unknown) (no (unknown) (unknown) Temperature 98.5 (units (unknown) date) F 03/20/22 04:13 unknown) (unknown) (no (unknown) (unknown) Temperature 98.5 (units (unknown) date) F unknown) (unknown) (no (unknown) (unknown) Time Seen by (units (u nknown) date) Provider: 03/20/22 unknown) 04:19 (unknown) (no (unknown) (unknown) Total Bilirubin (units (unknown) date) 1.7 H (0.2-1.3) unknown) mg/dL (unknown) (no (unknown) (unknown) Total Protein (units ( unknown) date) 11.0 H (6.3-8.2) unknown) g/dL (unknown) (no (unknown) (unknown) VBG [Venous Blood (units (unknown) date) Gas] Stat unknown) (unknown) (no (unknown) (unknown) Vital Signs (units (un known) date) unknown) (unknown) (no (unknown) (unknown) Vital signs: (units (u nknown) date) unknown) (unknown) (no (unknown) (unknown) [Embedded Image (units (unknown) date) Not Available] unknown) (unknown) (no (unknown) (unknown) [METOCLOPRAMIDE] (units (unknown) date) unknown) (unknown) (no (unknown) (unknown) alcohol intake (units (unknown) date) frequency: 3 or unknown) more drinks per day (unknown) (no (unknown) (unknown) and frequent (units (u nknown) date) vomiting over the unknown) past 2 days despite the use of her home Zofran (unknown) (no (unknown) (unknown) and suppository. (units (unknown) date) She has terrible unknown) appetite and states that over the course of (unknown) (no (unknown) (unknown) baseline of (units (un known) date) normal and unknown) potassium down to 2.6. (unknown) (no (unknown) (unknown) dehydrated on (units ( unknown) date) physical exam, unknown) confirmed by a bump in creatinine to 1.99 from her (unknown) (no (unknown) (unknown) dizziness. (units (unk nown) date) unknown) (unknown) (no (unknown) (unknown) for her. She (units (u nknown) date) denies any new unknown) medications or change in her diet. She denies any (unknown) (no (unknown) (unknown) household (units (unkn own) date) members: spouse unknown) (unknown) (no (unknown) (unknown) icterus. No (units (un known) date) injection or unknown) drainage. (unknown) (no (unknown) (unknown) injury (units (unkno wn) date) unknown) (unknown) (no (unknown) (unknown) latex [LATEX] (units ( unknown) date) Allergy Unknown unknown) Verified 11/02/21 15:46 (unknown) (no (unknown) (unknown) lorazepam 0.5 mg (units (unknown) date) tablet (Ativan) unknown) 0.5 mg PO DAILY PRN nausea and 11/03/21 (unknown) (no (unknown) (unknown) metoclopramide (units (unknown) date) AdvReac Unknown unknown) DYSTONIA Verified 11/02/21 15:46 (unknown) (no (unknown) (unknown) moderate (units (unkno wn) date) distress, lying on unknown) her side holding an emesis bag, clearly feeling un (unknown) (no (unknown) (unknown) once after at (units ( unknown) date) least 2 hours unknown) (unknown) (no (unknown) (unknown) ondansetron 4 mg (units (unknown) date) disintegrating 4 unknown) mg PO Q8H PRN nausea and 07/28/19 (unknown) (no (unknown) (unknown) ondansetron 8 mg (units (unknown) date) disintegrating 8 unknown) mg PO TID PRN Nausea 09/18/19 08/26/21 (unknown) (no (unknown) (unknown) presents under (units (unknown) date) similar unknown) circumstances complaining of generalized abdominal pain (unknown) (no (unknown) (unknown) presents with 2 (units (unknown) date) days of unknown) significant vomiting. She is found to be significantly (unknown) (no (unknown) (unknown) promethazine (units (u nknown) date) [PROMETHAZINE] unknown) Allergy Mild ERYTHEMA Verified 08/26/21 15:49 (unknown) (no (unknown) (unknown) recent travel. (units (unknown) date) unknown) (unknown) (no (unknown) (unknown) seizures, (units (unkn own) date) incoordination. unknown) (unknown) (no (unknown) (unknown) spray headache #1 (units (unknown) date) ea unknown) (unknown) (no (unknown) (unknown) sumatriptan 5 (units ( unknown) date) mg/actuation nasal unknown) 5 mg intranasal Q2-4H PRN migraine 06/04/21 (unknown) (no (unknown) (unknown) tablet (units (unkno wn) date) unknown) (unknown) (no (unknown) (unknown) tablet vomiting (units (unknown) date) #10 tabs unknown) (unknown) (no (unknown) (unknown) the day she is (units (unknown) date) developed cramping unknown) and tingling in her hands which is not normal (unknown) (no (unknown) (unknown) tobacco type: (units ( unknown) date) vaping unknown) (unknown) (no (unknown) (unknown) well (units (unkno wn) date) unknown) (unknown) (no (unknown) (unknown) without erythema, (units (unknown) date) tonsillar unknown) hypertrophy or exudate. Airway patent. Result panel 9 (unknown) (no date) (unknown) (unknown) 23.0 mmol/L (unkn own) (unknown) (no date) (unknown) (unknown) 44 mmol/L (unkn own) (unknown) (no date) (unknown) (unknown) 45.0 mmHg (unkn own) (unknown) (no date) (unknown) (unknown) 46 mmol/L (unkn own) (unknown) (no date) (unknown) (unknown) 52 mmHg (unkn own) (unknown) (no date) (unknown) (unknown) 7.60 (units unknown) (unknown) (unknown) (no date) (unknown) (unknown) 91 % (unkn own) Result panel 10 (unknown) (no date) (unknown) (unknown) Negative (units (unkn own) unknown) Result panel 11 (unknown) (no date) (unknown) (unknown) 2.2 mmol/L (unkn own) Result panel 12 (unknown) (no date) (unknown) (unknown) 0.17 mmol/L (unkn own) Result panel 13 (unknown) (no (unknown) (unknown) (no value) (units (unk nown) date) unknown) (unknown) (no (unknown) (unknown) [address] [place] [address] (units (unknown) date) unknown) (unknown) (no (unknown) (unknown) [place], [place] (units ( unknown) date) [id number] unknown) (unknown) (no (unknown) (unknown) [facility] (units (unknown) date) unknown) (unknown) (no (unknown) (unknown) Signed (units (unkno wn) date) unknown) (unknown) (no (unknown) (unknown) XRay Report (units (un known) date) unknown) (unknown) (no (unknown) (unknown) (no value) (units (unk nown) date) unknown) (unknown) (no (unknown) (unknown) 03/20/22 (units (unkno wn) date) unknown) (unknown) (no (unknown) (unknown) Approved by: (units (u nknown) date) rustam Stanton M.D. on 03/20/2022 at 9:24 (unknown) (no (unknown) (unknown) Bones and chest (units (unknown) date) wall: No unknown) suspicious bony lesions. Overlying soft tissues (unknown) (no (unknown) (unknown) COMPARISON: (units (un known) date) [facility], unknown) CR, CHEST FOR PICC PLACEMENT, 01/23/2012, 14:55. (unknown) (no (unknown) (unknown) Dictated by: (units (u nknown) date) rustam Stanton M.D. on 03/20/2022 at 9:23 (unknown) (no (unknown) (unknown) FINDINGS: (units (unkn own) date) unknown) (unknown) (no (unknown) (unknown) IMPRESSION: No (units (unknown) date) significant unknown) portable chest abnormality is seen. (unknown) (no (unknown) (unknown) INDICATIONS: (units (u nknown) date) Please evaluate unknown) for cardiopulmonary infectious process (unknown) (no (unknown) (unknown) Lungs and pleura: (units (unknown) date) Lungs are clear. unknown) No large pleural effusions or (unknown) (no (unknown) (unknown) Mediastinum: (units (u nknown) date) Mediastinal unknown) contours appear normal. Heart size is normal. (unknown) (no (unknown) (unknown) Surgical changes (units (unknown) date) and devices: None. unknown) (unknown) (no (unknown) (unknown) TECHNIQUE: One (units (unknown) date) view of the chest unknown) was acquired. (unknown) (no (unknown) (unknown) unremarkable. (units ( unknown) date) unknown) (unknown) (no (unknown) (unknown) [id number] (units (unkno wn) date) unknown) (unknown) (no (unknown) (unknown) Accession Number: (units (unknown) date) [id number] unknown) (unknown) (no (unknown) (unknown) Age/Sex: 46 / F (units (unknown) date) Date of Service: unknown) (unknown) (no (unknown) (unknown) : 1975 (units (unknown) date) Acct:[id number] unknown) (unknown) (no (unknown) (unknown) Loc: [facility] (units ( unknown) date) unknown) (unknown) (no (unknown) (unknown) Ordering (units (unkno wn) date) Provider: unknown) Kylee Arauz METALLURGICAL TECHNICIAN-BC (unknown) (no (unknown) (unknown) PROCEDURE: XR (units ( unknown) date) CHEST 1V unknown) (unknown) (no (unknown) (unknown) Patient: (units (unkno wn) date) Dameon Castro MR#: unknown) [id number] (unknown) (no (unknown) (unknown) Procedure: XR (units ( unknown) date) chest 1V unknown) (unknown) (no (unknown) (unknown) appear (units (unkno wn) date) unknown) (unknown) (no (unknown) (unknown) pneumothorax. (units ( unknown) date) unknown) Result panel 14 (unknown) (no (unknown) (unknown) (no value) (units (unk nown) date) unknown) (unknown) (no (unknown) (unknown) Date of Service: (units (unknown) date) 03/20/22 unknown) (unknown) (no (unknown) (unknown) (no value) (units (unk nown) date) unknown) (unknown) (no (unknown) (unknown) <Electronically (units (unknown) date) signed by Tremayne unknownLiz Jovel D.O.> (unknown) (no (unknown) (unknown) 03/20/22 04:40 (units (unknown) date) unknown) (unknown) (no (unknown) (unknown) 03/20/22 0629 (units ( unknown) date) unknown) (unknown) (no (unknown) (unknown) ABLE TO (units (unkno wn) date) unknown) (unknown) (no (unknown) (unknown) Allergies (units (unkn own) date) unknown) (unknown) (no (unknown) (unknown) Documented By: (units (unknown) date) KMW unknown) (unknown) (no (unknown) (unknown) Documented By: KP (units (unknown) date) unknown) (unknown) (no (unknown) (unknown) ED Orders (units (unkn own) date) unknown) (unknown) (no (unknown) (unknown) Emergency Report (units (unknown) date) unknown) (unknown) (no (unknown) (unknown) Home Medications (units (unknown) date) unknown) (unknown) (no (unknown) (unknown) [facility] (units (unknown) date) [address] unknown) [place] [address] (unknown) (no (unknown) (unknown) Lab Results (units (un known) date) unknown) (unknown) (no (unknown) (unknown) Last Admin: (units (un known) date) 03/20/22 05:01 unknown) Dose: 5 mg (unknown) (no (unknown) (unknown) Last Admin: (units (un known) date) 03/20/22 05:28 unknown) Dose: 100 mls/hr (unknown) (no (unknown) (unknown) PRN Reason: (units (un known) date) Nausea And unknown) Vomiting (unknown) (no (unknown) (unknown) PT STATES (units (unkn own) date) unknown) (unknown) (no (unknown) (unknown) Previous Rx's (units ( unknown) date) unknown) (unknown) (no (unknown) (unknown) Stop: 03/20/22 (units (unknown) date) 04:53 unknown) (unknown) (no (unknown) (unknown) Stop: 03/20/22 (units (unknown) date) 11:14 unknown) (unknown) (no (unknown) (unknown) TAKE [facility] (units (unkno wn) date) unknown) (unknown) (no (unknown) (unknown) TO IV SITE (units (unk nown) date) unknown) (unknown) (no (unknown) (unknown) Vital Signs - 8 (units (unknown) date) hr unknown) (unknown) (no (unknown) (unknown) (no value) (units (unk nown) date) unknown) (unknown) (no (unknown) (unknown) 04:40 04:40 04:40 (units (unknown) date) unknown) (unknown) (no (unknown) (unknown) 05:30 05:44 05:45 (units (unknown) date) unknown) (unknown) (no (unknown) (unknown) 03/20/22 03/20/22 (units (unknown) date) 03/20/22 unknown) Range/Units (unknown) (no (unknown) (unknown) 03/20/22 (units (unkno wn) date) unknown) (unknown) (no (unknown) (unknown) Medication (units (unk nown) date) Instructions unknown) Recorded (unknown) (no (unknown) (unknown) Medication (units (unk nown) date) Instructions unknown) Recorded Confirmed (unknown) (no (unknown) (unknown) Nausea and (units (unk nown) date) vomiting, Cyclic unknown) vomiting syndrome, Acute hypokalemia, Acute kidney (unknown) (no (unknown) (unknown) rales, or (units (unkn own) date) rhonchi. unknown) (unknown) (no (unknown) (unknown) sounds present in (units (unknown) date) all 4 quadrants unknown) (unknown) (no (unknown) (unknown) vomiting #10 tabs (units (unknown) date) unknown) (unknown) (no (unknown) (unknown) 04:13 (units (unkno wn) date) unknown) (unknown) (no (unknown) (unknown) 03/20/22 (units (unkno wn) date) unknown) (unknown) (no (unknown) (unknown) 03/20/22 04:40 (units (unknown) date) unknown) (unknown) (no (unknown) (unknown) 03/20/22 05:30 (units (unknown) date) unknown) (unknown) (no (unknown) (unknown) 03/20/22 05:44 (units (unknown) date) unknown) (unknown) (no (unknown) (unknown) 03/20/22 05:45 (units (unknown) date) unknown) (unknown) (no (unknown) (unknown) 03/20/22 06:10 (units (unknown) date) unknown) (unknown) (no (unknown) (unknown) 03/20/22 06:19 (units (unknown) date) unknown) (unknown) (no (unknown) (unknown) 03/20/22 06:20 (units (unknown) date) unknown) (unknown) (no (unknown) (unknown) 03/20/22 06:21 (units (unknown) date) unknown) (unknown) (no (unknown) (unknown) 03/20/22 06:23 (units (unknown) date) unknown) (unknown) (no (unknown) (unknown) 03/20/22 09:00 (units (unknown) date) unknown) (unknown) (no (unknown) (unknown) 03/21/22 05:00 (units (unknown) date) unknown) (unknown) (no (unknown) (unknown) 03/22/22 05:00 (units (unknown) date) unknown) (unknown) (no (unknown) (unknown) 12 point review (units (unknown) date) of systems is unknown) negative except for those stated above (unknown) (no (unknown) (unknown) [id number] (units (unkno wn) date) unknown) (unknown) (no (unknown) (unknown) 38-year-old (units (un known) date) female with unknown) history of cyclic vomiting and abdominal migraines (unknown) (no (unknown) (unknown) 46-year-old (units (un known) date) female with unknown) history of cyclic vomiting and abdominal migraines (unknown) (no (unknown) (unknown) @ 100 mls/hr IV (units (unknown) date) Q1H KIRIT unknown) (unknown) (no (unknown) (unknown) A1C [Hemoglobin (units (unknown) date) A1C% w Est Avg unknown) Glu] Urgent (unknown) (no (unknown) (unknown) ALT (<35) IU/L (units (unknown) date) unknown) (unknown) (no (unknown) (unknown) ALT 36 H (<35) (units (unknown) date) IU/L unknown) (unknown) (no (unknown) (unknown) AST (14-36) IU/L (units (unknown) date) unknown) (unknown) (no (unknown) (unknown) AST 39 H (14-36) (units (unknown) date) IU/L unknown) (unknown) (no (unknown) (unknown) Abscess (units (unkno wn) date) unknown) (unknown) (no (unknown) (unknown) Age/Sex: 46 / F (units (unknown) date) unknown) (unknown) (no (unknown) (unknown) Albumin (3.5-5.0) (units (unknown) date) g/dL unknown) (unknown) (no (unknown) (unknown) Albumin 5.8 H (units ( unknown) date) (3.5-5.0) g/dL unknown) (unknown) (no (unknown) (unknown) Albumin/Globulin (units (unknown) date) Ratio (1.0-2.8) unknown) (unknown) (no (unknown) (unknown) Albumin/Globulin (units (unknown) date) Ratio 1.1 unknown) (1.0-2.8) (unknown) (no (unknown) (unknown) Alcohol type: (units ( unknown) date) wine unknown) (unknown) (no (unknown) (unknown) Alkaline (units (unkno wn) date) Phosphatase unknown) (38-126) U/L (unknown) (no (unknown) (unknown) Alkaline (units (unkno wn) date) Phosphatase 87 unknown) (38-126) U/L (unknown) (no (unknown) (unknown) Allergy/AdvReac (units (unknown) date) Type Severity unknown) Reaction Status Date / Time (unknown) (no (unknown) (unknown) BACK: Nontender (units (unknown) date) without deformity unknown) or crepitance. No flank tenderness. (unknown) (no (unknown) (unknown) BUN (7-17) mg/dL (units (unknown) date) unknown) (unknown) (no (unknown) (unknown) BUN 22 H (7-17) (units (unknown) date) mg/dL unknown) (unknown) (no (unknown) (unknown) BUN/Creatinine (units (unknown) date) Ratio (6-22) unknown) (unknown) (no (unknown) (unknown) BUN/Creatinine (units (unknown) date) Ratio 11.1 (6-22) unknown) (unknown) (no (unknown) (unknown) Baso # (Auto) (units ( unknown) date) (0-100) /uL unknown) (unknown) (no (unknown) (unknown) Baso # (Auto) 0 (units (unknown) date) (0-100) /uL unknown) (unknown) (no (unknown) (unknown) Baso % (Auto) (units ( unknown) date) (0-2) % unknown) (unknown) (no (unknown) (unknown) Baso % (Auto) 0.4 (units (unknown) date) (0-2) % unknown) (unknown) (no (unknown) (unknown) Blood Pressure (units (unknown) date) 135/94 H 03/20/22 unknown) 04:13 (unknown) (no (unknown) (unknown) Blood Pressure (units (unknown) date) 135/94 H unknown) (unknown) (no (unknown) (unknown) CARDIOVASCULAR: (units (unknown) date) Denies chest pain, unknown) palpitations, orthopnea, edema, (unknown) (no (unknown) (unknown) CARDIOVASCULAR: (units (unknown) date) Regular rate and unknown) rhythm without murmurs, gallops, or rubs. (unknown) (no (unknown) (unknown) CBC Auto Diff (units ( unknown) date) [Complete Blood unknown) Count AUTO DIFF] Stat (unknown) (no (unknown) (unknown) CMP (units (unkno wn) date) [Comprehensive unknown) Metabolic Panel] Stat (unknown) (no (unknown) (unknown) COVID19 -Nasal (units (unknown) date) RAPID/Pre-Proc unknown) Stat (unknown) (no (unknown) (unknown) Calcium (units (o wn) date) (8.4-10.2) mg/dL unknown) (unknown) (no (unknown) (unknown) Calcium 10.9 H (units (unknown) date) (8.4-10.2) mg/dL unknown) (unknown) (no (unknown) (unknown) Carbon Dioxide (units (unknown) date) (22-32) mmol/L unknown) (unknown) (no (unknown) (unknown) Carbon Dioxide 33 (units (unknown) date) H (22-32) mmol/L unknown) (unknown) (no (unknown) (unknown) Chief complaint: (units (unknown) date) Nausea/Vomiting/Di unknown) arrhea (unknown) (no (unknown) (unknown) Chloride (98-107) (units (unknown) date) mmol/L unknown) (unknown) (no (unknown) (unknown) Chloride 83 L (units ( unknown) date) (98-107) mmol/L unknown) (unknown) (no (unknown) (unknown) Chronic abdominal (units (unknown) date) pain unknown) (unknown) (no (unknown) (unknown) Clinical (units (o wn) date) Impression: unknown) (unknown) (no (unknown) (unknown) Complete Blood (units (unknown) date) Count AUTO DIFF unknown) DAILY (unknown) (no (unknown) (unknown) Comprehensive (units ( unknown) date) Metabolic Panel unknown) DAILY (unknown) (no (unknown) (unknown) Course (units () date) unknown) (unknown) (no (unknown) (unknown) Creatinine (units (unk nown) date) (0.52-1.04) mg/dL unknown) (unknown) (no (unknown) (unknown) Creatinine 1.99 H (units (unknown) date) (0.52-1.04) mg/dL unknown) (unknown) (no (unknown) (unknown) Cyclic vomiting (units (unknown) date) syndrome unknown) (unknown) (no (unknown) (unknown) : 1975 (units (unknown) date) Acct:[id number] unknown) (unknown) (no (unknown) (unknown) Daughter (units (unkno wn) date) Angio-edema unknown) (unknown) (no (unknown) (unknown) Departure (units (unkn own) date) unknown) (unknown) (no (unknown) (unknown) Diphenhydramine (units (unknown) date) HCl unknown) (Diphenhydramine 25 Mg Tablet) 25 mg PO Q6HR PRN (unknown) (no (unknown) (unknown) Discharge Plan (units (unknown) date) unknown) (unknown) (no (unknown) (unknown) Discontinued (units (u nknown) date) Medications unknown) (unknown) (no (unknown) (unknown) ENT: Dry mucous (units (unknown) date) membranes Nose unknown) without bleeding, purulent drainage. Throat (unknown) (no (unknown) (unknown) ER Physician: (units ( unknown) date) Tremayne Jovel D.O. unknown) (unknown) (no (unknown) (unknown) ETOH [Ethanol (units ( unknown) date) (ETOH)] Urgent unknown) (unknown) (no (unknown) (unknown) EXTREMITIES: No (units (unknown) date) edema or joint unknown) tenderness. (unknown) (no (unknown) (unknown) EYES: Pupils (units (u nknown) date) equal round and unknown) reactive. Extraocular motions intact. No scleral (unknown) (no (unknown) (unknown) Education, (units (unk nown) date) smoking cessation unknown) ONGOING (unknown) (no (unknown) (unknown) Enoxaparin Sodium (units (unknown) date) (Enoxaparin 30 unknown) Mg/0.3 Ml Syringe) 30 mg SUBCUT DAILY KIRIT (unknown) (no (unknown) (unknown) Eos # (Auto) (units (u nknown) date) (0-450) /uL unknown) (unknown) (no (unknown) (unknown) Eos # (Auto) 0 (units (unknown) date) (0-450) /uL unknown) (unknown) (no (unknown) (unknown) Eos % (Auto) (units (u nknown) date) (2-4) % unknown) (unknown) (no (unknown) (unknown) Eos % (Auto) 0.0 (units (unknown) date) L (2-4) % unknown) (unknown) (no (unknown) (unknown) Estimated GFR (units ( unknown) date) (>60) mL/min unknown) (unknown) (no (unknown) (unknown) Estimated GFR 30 (units (unknown) date) L (>60) mL/min unknown) (unknown) (no (unknown) (unknown) Exam (units (unkno wn) date) unknown) (unknown) (no (unknown) (unknown) Exam Narrative: (units (unknown) date) unknown) (unknown) (no (unknown) (unknown) Family History (units (unknown) date) (Reviewed 03/20/22 unknown) @ 05:09 by Tremayne Jovel DO) (unknown) (no (unknown) (unknown) Family history of (units (unknown) date) angioedema unknown) (unknown) (no (unknown) (unknown) Father (units (unkno wn) date) Hypertension unknown) (unknown) (no (unknown) (unknown) GASTROINTESTINAL: (units (unknown) date) See HPI unknown) (unknown) (no (unknown) (unknown) GASTROINTESTINAL: (units (unknown) date) Abdomen soft, unknown) generalized abdominal pain, nondistended. Bowel (unknown) (no (unknown) (unknown) GENERAL: Denies (units (unknown) date) chills, fatigue, unknown) malaise, fever, sweats. (unknown) (no (unknown) (unknown) GENERAL: [46] (units ( unknown) date) year old patient unknown) appears stated age. Well-developed patient, in (unknown) (no (unknown) (unknown) : Denies (units (unk nown) date) dysuria, unknown) frequency, incontinence, hematuria, urinary retention. (unknown) (no (unknown) (unknown) General (units (unkno wn) date) unknown) (unknown) (no (unknown) (unknown) GenericComposite[ (units (unknown) date) Plt Count unknown) (150-400) X10^3/uL ] (unknown) (no (unknown) (unknown) GenericComposite[ (units (unknown) date) Plt Count 273 unknown) (150-400) X10^3/uL ] (unknown) (no (unknown) (unknown) GenericComposite[ (units (unknown) date) RBC (4.0-5.2) unknown) X10^6/uL ] (unknown) (no (unknown) (unknown) GenericComposite[ (units (unknown) date) RBC 4.86 (4.0-5.2) unknown) X10^6/uL ] (unknown) (no (unknown) (unknown) GenericComposite[ (units (unknown) date) WBC (4.5-11.0) unknown) X10^3/uL ] (unknown) (no (unknown) (unknown) GenericComposite[ (units (unknown) date) WBC 12.0 H unknown) (4.5-11.0) X10^3/uL ] (unknown) (no (unknown) (unknown) Globulin (units (unkno wn) date) (1.7-4.1) g/dL unknown) (unknown) (no (unknown) (unknown) Globulin 5.2 H (units (unknown) date) (1.7-4.1) g/dL unknown) (unknown) (no (unknown) (unknown) Glucose (70-100) (units (unknown) date) mg/dL unknown) (unknown) (no (unknown) (unknown) Glucose 142 H (units ( unknown) date) (70-100) mg/dL unknown) (unknown) (no (unknown) (unknown) HEAD: Atraumatic. (units (unknown) date) Normocephalic. unknown) (unknown) (no (unknown) (unknown) HEENT: Denies (units ( unknown) date) sinus pain, ear unknown) pain, sore throat, difficulty swallowing, (unknown) (no (unknown) (unknown) HPI - (units (unkno wn) date) Nausea/Vomiting/Di unknown) arrhea (unknown) (no (unknown) (unknown) HPI Narrative: (units (unknown) date) unknown) (unknown) (no (unknown) (unknown) Haloperidol (units (un known) date) (Haloperidol 5 unknown) Mg/Ml Vial) 5 mg IV NOW ONE (unknown) (no (unknown) (unknown) Hct (36-46) % (units ( unknown) date) unknown) (unknown) (no (unknown) (unknown) Hct 44.5 (36-46) (units (unknown) date) % unknown) (unknown) (no (unknown) (unknown) Hgb (12.0-16.0) (units (unknown) date) g/dL unknown) (unknown) (no (unknown) (unknown) Hgb 15.3 (units (unkno wn) date) (12.0-16.0) g/dL unknown) (unknown) (no (unknown) (unknown) History of (units (unk nown) date) Present Illness unknown) (unknown) (no (unknown) (unknown) Hx of (units (unkno wn) date) appendectomy unknown) (unknown) (no (unknown) (unknown) Hx of (units (unkno wn) date) cholecystectomy unknown) (unknown) (no (unknown) (unknown) Initial Vital (units ( unknown) date) Signs unknown) (unknown) (no (unknown) (unknown) Initial Vital (units ( unknown) date) Signs: unknown) (unknown) (no (unknown) (unknown) Ketones (<0.27) (units (unknown) date) mmol/L unknown) (unknown) (no (unknown) (unknown) Ketones 0.17 (units (u nknown) date) (<0.27) mmol/L unknown) (unknown) (no (unknown) (unknown) Ketones (units (unkno wn) date) (Beta-Hydroxybutyr unknown) ate) Stat (unknown) (no (unknown) (unknown) Lab Data (units (unkno wn) date) unknown) (unknown) (no (unknown) (unknown) Labs: (units (unkno wn) date) unknown) (unknown) (no (unknown) (unknown) Lactate (0.7-2.1) (units (unknown) date) mmol/L unknown) (unknown) (no (unknown) (unknown) Lactate 2.2 H (units ( unknown) date) (0.7-2.1) mmol/L unknown) (unknown) (no (unknown) (unknown) Lactate (Lactic (units (unknown) date) Acid) Stat unknown) (unknown) (no (unknown) (unknown) Lactated Ringer's (units (unknown) date) (Lactated Ringers) unknown) 1,000 mls @ 100 mls/hr IV CONT KIRIT (unknown) (no (unknown) (unknown) Lymph # (Auto) (units (unknown) date) (2454-7711) /uL unknown) (unknown) (no (unknown) (unknown) Lymph # (Auto) (units (unknown) date) 1000 L (6872-2156) unknown) /uL (unknown) (no (unknown) (unknown) Lymph % (Auto) (units (unknown) date) (25-40) % unknown) (unknown) (no (unknown) (unknown) Lymph % (Auto) (units (unknown) date) 8.1 L (25-40) % unknown) (unknown) (no (unknown) (unknown) MCH (26-34) PG (units (unknown) date) unknown) (unknown) (no (unknown) (unknown) MCH 31.6 (26-34) (units (unknown) date) PG unknown) (unknown) (no (unknown) (unknown) MCHC (30-36) % (units (unknown) date) unknown) (unknown) (no (unknown) (unknown) MCHC 34.4 (30-36) (units (unknown) date) % unknown) (unknown) (no (unknown) (unknown) MCV (80-100) fL (units (unknown) date) unknown) (unknown) (no (unknown) (unknown) MCV 91.7 (80-100) (units (unknown) date) fL unknown) (unknown) (no (unknown) (unknown) MDM - (units (unkno wn) date) Nausea/Vomiting/Di unknown) arrhea (unknown) (no (unknown) (unknown) MDM Narrative (units ( unknown) date) unknown) (unknown) (no (unknown) (unknown) 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 (unknown) (no (unknown) (unknown) MUSCULOSKELETAL: (units (unknown) date) denies weakness, unknown) joint pain, or bony pain (unknown) (no (unknown) (unknown) Magnesium Urgent (units (unknown) date) unknown) (unknown) (no (unknown) (unknown) Marijuana use, (units (unknown) date) continuous unknown) (unknown) (no (unknown) (unknown) Medical History (units (unknown) date) (Reviewed 03/20/22 unknown) @ 05:09 by Tremayne Jovel DO) (unknown) (no (unknown) (unknown) Medical decision (units (unknown) date) making narrative: unknown) (unknown) (no (unknown) (unknown) Mode of arrival: (units (unknown) date) Wheelchair unknown) (unknown) (no (unknown) (unknown) Centre # (Auto) (units ( unknown) date) (0-900) /uL unknown) (unknown) (no (unknown) (unknown) Centre # (Auto) (units ( unknown) date) 1000 H (0-900) /uL unknown) (unknown) (no (unknown) (unknown) Centre % (Auto) (units ( unknown) date) (3-14) % unknown) (unknown) (no (unknown) (unknown) Centre % (Auto) 8.3 (units (unknown) date) (3-14) % unknown) (unknown) (no (unknown) (unknown) Mother Diabetes (units (unknown) date) mellitus unknown) (unknown) (no (unknown) (unknown) NECK: Trachea (units ( unknown) date) midline. Non unknown) tender (unknown) (no (unknown) (unknown) NEURO: AOx3. (units (u nknown) date) unknown) (unknown) (no (unknown) (unknown) NEUROLOGIC: (units (un known) date) Denies weakness, unknown) headache, numbness, change in speech, confusion, (unknown) (no (unknown) (unknown) NT-proBNP (units (unkn own) date) (BNP-Adult 18+) unknown) Urgent (unknown) (no (unknown) (unknown) Narrative (units (unkn own) date) unknown) (unknown) (no (unknown) (unknown) Narrative: (units (unk nown) date) unknown) (unknown) (no (unknown) (unknown) Neut # (Auto) (units ( unknown) date) (3743-0830) /uL unknown) (unknown) (no (unknown) (unknown) Neut # (Auto) (units ( unknown) date) 03051 H unknown) (0644-5735) /uL (unknown) (no (unknown) (unknown) Neut % (Auto) (units ( unknown) date) (50-75) % unknown) (unknown) (no (unknown) (unknown) Neut % (Auto) (units ( unknown) date) 83.2 H (50-75) % unknown) (unknown) (no (unknown) (unknown) Ondansetron HCl (units (unknown) date) (Ondansetron 4 unknown) Mg/2 Ml Inj) 4 mg IV Q4HR KIRIT (unknown) (no (unknown) (unknown) Ordered: (units (unkno wn) date) unknown) (unknown) (no (unknown) (unknown) Orders (units (unkno wn) date) unknown) (unknown) (no (unknown) (unknown) Other Colon (units (un known) date) cancer unknown) (unknown) (no (unknown) (unknown) Oxygen Delivery (units (unknown) date) Method 03/20/22 unknown) 04:13 (unknown) (no (unknown) (unknown) Oxygen Delivery (units (unknown) date) Method Room Air unknown) (unknown) (no (unknown) (unknown) POTASSIUM (units (unkn own) date) CHLORIDE IN WATER unknown) (Potassium Cl 10 Meq/100 Ml Lidia) 10 meq in 100 mls (unknown) (no (unknown) (unknown) PSYCHIATRIC: No (units (unknown) date) concerning unknown) psychosocial issues. (unknown) (no (unknown) (unknown) Pancreatitis (units (u nknown) date) unknown) (unknown) (no (unknown) (unknown) Patient (units (unkno wn) date) Disposition: unknown) Admitted As Inpatient (unknown) (no (unknown) (unknown) Patient History (units (unknown) date) unknown) (unknown) (no (unknown) (unknown) Patient: (units (unkno wn) date) Dameon Castro MR#: unknown) [id number] (unknown) (no (unknown) (unknown) Potassium (units (unkn own) date) (3.4-5.1) mmol/L unknown) (unknown) (no (unknown) (unknown) Potassium 2.6 L* (units (unknown) date) (3.4-5.1) mmol/L unknown) (unknown) (no (unknown) (unknown) Procalcitonin (units ( unknown) date) Urgent unknown) (unknown) (no (unknown) (unknown) Pulse Oximetry (units (unknown) date) 100 03/20/22 04:13 unknown) (unknown) (no (unknown) (unknown) Pulse Oximetry (units (unknown) date) 100 unknown) (unknown) (no (unknown) (unknown) Pulse Rate 99 H (units (unknown) date) 03/20/22 04:13 unknown) (unknown) (no (unknown) (unknown) Pulse Rate 99 H (units (unknown) date) unknown) (unknown) (no (unknown) (unknown) RDW (11.6-14.8) % (units (unknown) date) unknown) (unknown) (no (unknown) (unknown) RDW 13.7 (units (unkno wn) date) (11.6-14.8) % unknown) (unknown) (no (unknown) (unknown) RESPIRATORY: Clear (units (unknown) date) to auscultation. unknown) Breath sounds equal bilaterally. No wheezes, (unknown) (no (unknown) (unknown) RESPIRATORY: (units (u nknown) date) Denies dyspnea, unknown) cough, wheezing, hemoptysis, sputum. (unknown) (no (unknown) (unknown) Related Data (units (u nknown) date) unknown) (unknown) (no (unknown) (unknown) Respiratory Rate (units (unknown) date) 18 03/20/22 04:13 unknown) (unknown) (no (unknown) (unknown) Respiratory Rate (units (unknown) date) 18 unknown) (unknown) (no (unknown) (unknown) Result diagrams: (units (unknown) date) unknown) (unknown) (no (unknown) (unknown) Review of Systems (units (unknown) date) unknown) (unknown) (no (unknown) (unknown) SARS-CoV-2 (PCR) (units (unknown) date) (Negative) unknown) (unknown) (no (unknown) (unknown) SARS-CoV-2 (PCR) (units (unknown) date) Negative unknown) (Negative) (unknown) (no (unknown) (unknown) SKIN: Denies (units (u nknown) date) rash, skin unknown) lesions, or other (unknown) (no (unknown) (unknown) SKIN: No rash or (units (unknown) date) erythema of unknown) visible areas (unknown) (no (unknown) (unknown) Signed By: (units (unk nown) date) unknown) (unknown) (no (unknown) (unknown) Smoking Status: (units (unknown) date) Current every day unknown) smoker (unknown) (no (unknown) (unknown) Smoking Status: (units (unknown) date) Current every day unknown) smoker (unknown) (no (unknown) (unknown) Social History (units (unknown) date) (Reviewed 03/20/22 unknown) @ 05:09 by Tremayne Jovel DO) (unknown) (no (unknown) (unknown) Sodium (137-145) (units (unknown) date) mmol/L unknown) (unknown) (no (unknown) (unknown) Sodium 142 (units (unk nown) date) (137-145) mmol/L unknown) (unknown) (no (unknown) (unknown) Source: patient (units (unknown) date) unknown) (unknown) (no (unknown) (unknown) Stated complaint: (units (unknown) date) Vomiting, SOB, unknown) numbness in hands (unknown) (no (unknown) (unknown) Substance Use (units ( unknown) date) Type: marijuana unknown) (unknown) (no (unknown) (unknown) Surgical History (units (unknown) date) (Reviewed 03/20/22 unknown) @ 05:09 by Tremayne Jovel DO) (unknown) (no (unknown) (unknown) Temperature 98.5 (units (unknown) date) F 03/20/22 04:13 unknown) (unknown) (no (unknown) (unknown) Temperature 98.5 (units (unknown) date) F unknown) (unknown) (no (unknown) (unknown) Time Seen by (units (u nknown) date) Provider: 03/20/22 unknown) 04:19 (unknown) (no (unknown) (unknown) Total Bilirubin (units (unknown) date) (0.2-1.3) mg/dL unknown) (unknown) (no (unknown) (unknown) Total Bilirubin (units (unknown) date) 1.7 H (0.2-1.3) unknown) mg/dL (unknown) (no (unknown) (unknown) Total Protein (units ( unknown) date) (6.3-8.2) g/dL unknown) (unknown) (no (unknown) (unknown) Total Protein (units ( unknown) date) 11.0 H (6.3-8.2) unknown) g/dL (unknown) (no (unknown) (unknown) Urinalysis and (units (unknown) date) Microscopic Urgent unknown) (unknown) (no (unknown) (unknown) VBG Base Excess (units (unknown) date) (0-4) mmol/L unknown) (unknown) (no (unknown) (unknown) VBG Base Excess (units (unknown) date) 23.0 H (0-4) unknown) mmol/L (unknown) (no (unknown) (unknown) VBG HCO3 (23-28) (units (unknown) date) mmol/L unknown) (unknown) (no (unknown) (unknown) VBG HCO3 44 H (units ( unknown) date) (23-28) mmol/L unknown) (unknown) (no (unknown) (unknown) VBG O2 Saturation (units (unknown) date) (70-75) % unknown) (unknown) (no (unknown) (unknown) VBG O2 Saturation (units (unknown) date) 91 H (70-75) % unknown) (unknown) (no (unknown) (unknown) VBG Total CO2 (units ( unknown) date) (24-29) mmol/L unknown) (unknown) (no (unknown) (unknown) VBG Total CO2 46 (units (unknown) date) H (24-29) mmol/L unknown) (unknown) (no (unknown) (unknown) VBG [Venous Blood (units (unknown) date) Gas] Stat unknown) (unknown) (no (unknown) (unknown) VBG pCO2 (45-50) (units (unknown) date) mmHg unknown) (unknown) (no (unknown) (unknown) VBG pCO2 45.0 (units ( unknown) date) (45-50) mmHg unknown) (unknown) (no (unknown) (unknown) VBG pH (units (unkno wn) date) (7.33-7.43) unknown) (unknown) (no (unknown) (unknown) VBG pH 7.60 H (units ( unknown) date) (7.33-7.43) unknown) (unknown) (no (unknown) (unknown) VBG pO2 (35-45) (units (unknown) date) mmHg unknown) (unknown) (no (unknown) (unknown) VBG pO2 52 H (units (u nknown) date) (35-45) mmHg unknown) (unknown) (no (unknown) (unknown) Vital Signs (units (un known) date) unknown) (unknown) (no (unknown) (unknown) Vital signs: (units (u nknown) date) unknown) (unknown) (no (unknown) (unknown) XR chest 2V (units (un known) date) Urgent unknown) (unknown) (no (unknown) (unknown) [Embedded Image (units (unknown) date) Not Available] unknown) (unknown) (no (unknown) (unknown) [METOCLOPRAMIDE] (units (unknown) date) unknown) (unknown) (no (unknown) (unknown) alcohol intake (units (unknown) date) frequency: 3 or unknown) more drinks per day (unknown) (no (unknown) (unknown) and frequent (units (u nknown) date) vomiting over the unknown) past 2 days despite the use of her home Zofran (unknown) (no (unknown) (unknown) and suppository. (units (unknown) date) She has terrible unknown) appetite and states that over the course of (unknown) (no (unknown) (unknown) baseline of (units (un known) date) normal and unknown) potassium down to 2.6. (unknown) (no (unknown) (unknown) dehydrated on (units ( unknown) date) physical exam, unknown) confirmed by a bump in creatinine to 1.99 from her (unknown) (no (unknown) (unknown) dizziness. (units (unk nown) date) unknown) (unknown) (no (unknown) (unknown) for her. She (units (u nknown) date) denies any new unknown) medications or change in her diet. She denies any (unknown) (no (unknown) (unknown) household (units (unkn own) date) members: spouse unknown) (unknown) (no (unknown) (unknown) icterus. No (units (un known) date) injection or unknown) drainage. (unknown) (no (unknown) (unknown) injury (units (unkno wn) date) unknown) (unknown) (no (unknown) (unknown) latex [LATEX] (units ( unknown) date) Allergy Unknown unknown) Verified 11/02/21 15:46 (unknown) (no (unknown) (unknown) lorazepam 0.5 mg (units (unknown) date) tablet (Ativan) unknown) 0.5 mg PO DAILY PRN nausea and 11/03/21 (unknown) (no (unknown) (unknown) metoclopramide (units (unknown) date) AdvReac Unknown unknown) DYSTONIA Verified 11/02/21 15:46 (unknown) (no (unknown) (unknown) moderate (units (unkno wn) date) distress, lying on unknown) her side holding an emesis bag, clearly feeling un (unknown) (no (unknown) (unknown) ondansetron 4 mg (units (unknown) date) disintegrating 4 unknown) mg PO Q8H PRN nausea and 07/28/19 (unknown) (no (unknown) (unknown) ondansetron 8 mg (units (unknown) date) disintegrating 8 unknown) mg PO TID PRN Nausea 09/18/19 08/26/21 (unknown) (no (unknown) (unknown) presents under (units (unknown) date) similar unknown) circumstances complaining of generalized abdominal pain (unknown) (no (unknown) (unknown) presents with 2 (units (unknown) date) days of unknown) significant vomiting. She is found to be significantly (unknown) (no (unknown) (unknown) promethazine (units (u nknown) date) [PROMETHAZINE] unknown) Allergy Mild ERYTHEMA Verified 08/26/21 15:49 (unknown) (no (unknown) (unknown) recent travel. (units (unknown) date) unknown) (unknown) (no (unknown) (unknown) seizures, (units (unkn own) date) incoordination. unknown) (unknown) (no (unknown) (unknown) spray headache #1 (units (unknown) date) ea unknown) (unknown) (no (unknown) (unknown) sumatriptan 5 (units ( unknown) date) mg/actuation nasal unknown) 5 mg intranasal Q2-4H PRN migraine 06/04/21 (unknown) (no (unknown) (unknown) tablet (units (unkno wn) date) unknown) (unknown) (no (unknown) (unknown) tablet vomiting (units (unknown) date) #10 tabs unknown) (unknown) (no (unknown) (unknown) the day she is (units (unknown) date) developed cramping unknown) and tingling in her hands which is not normal (unknown) (no (unknown) (unknown) tobacco type: (units ( unknown) date) vaping unknown) (unknown) (no (unknown) (unknown) tox [Urine Drug (units (unknown) date) Screen, Rapid] unknown) Stat (unknown) (no (unknown) (unknown) well (units (unkno wn) date) unknown) (unknown) (no (unknown) (unknown) without erythema, (units (unknown) date) tonsillar unknown) hypertrophy or exudate. Airway patent. Result panel 15 (unknown) (no (unknown) (unknown) (no value) (units (unk nown) date) unknown) (unknown) (no (unknown) (unknown) (no value) (units (unk nown) date) unknown) (unknown) (no (unknown) (unknown) Date of Service: (units (unknown) date) 03/20/22 unknown) (unknown) (no (unknown) (unknown) (no value) (units (unk nown) date) unknown) (unknown) (no (unknown) (unknown) - (units (unkno wn) date) unknown) (unknown) (no (unknown) (unknown) 03/20/22 04:40 (units (unknown) date) unknown) (unknown) (no (unknown) (unknown) ABLE TO (units (unkno wn) date) unknown) (unknown) (no (unknown) (unknown) Allergies (units (unkn own) date) unknown) (unknown) (no (unknown) (unknown) History + (units (unkn own) date) Physical Report unknown) (unknown) (no (unknown) (unknown) Home Medications (units (unknown) date) unknown) (unknown) (no (unknown) (unknown) [facility] (units (unknown) date) [address] unknown) [place] [address] (unknown) (no (unknown) (unknown) Laboratory (units (unk nown) date) Results - last 24 unknown) hr (unknown) (no (unknown) (unknown) PT STATES (units (unkn own) date) unknown) (unknown) (no (unknown) (unknown) [facility] (units (unkno wn) date) unknown) (unknown) (no (unknown) (unknown) TO IV SITE (units (unk nown) date) unknown) (unknown) (no (unknown) (unknown) (no value) (units (unk nown) date) unknown) (unknown) (no (unknown) (unknown) 04:40 04:40 04:40 (units (unknown) date) unknown) (unknown) (no (unknown) (unknown) 05:30 05:44 05:45 (units (unknown) date) unknown) (unknown) (no (unknown) (unknown) 03/20/22 03/20/22 (units (unknown) date) 03/20/22 unknown) (unknown) (no (unknown) (unknown) 03/20/22 (units (unkno wn) date) unknown) (unknown) (no (unknown) (unknown) Medication (units (unk nown) date) Instructions unknown) Recorded Confirmed Type (unknown) (no (unknown) (unknown) vomiting #10 tabs (units (unknown) date) unknown) (unknown) (no (unknown) (unknown) (past 8 hours): (units (unknown) date) unknown) (unknown) (no (unknown) (unknown) 08/26/21 Rx (units (un known) date) unknown) (unknown) (no (unknown) (unknown) 04:13 (units (unkno wn) date) unknown) (unknown) (no (unknown) (unknown) [id number] (units (unkno wn) date) unknown) (unknown) (no (unknown) (unknown) ALT (units (unkno wn) date) unknown) (unknown) (no (unknown) (unknown) ALT 36 H (units (unkno wn) date) unknown) (unknown) (no (unknown) (unknown) AST (units (unkno wn) date) unknown) (unknown) (no (unknown) (unknown) AST 39 H (units (unkno wn) date) unknown) (unknown) (no (unknown) (unknown) Abscess (units (unkno wn) date) unknown) (unknown) (no (unknown) (unknown) Age/Sex: 46 / F (units (unknown) date) unknown) (unknown) (no (unknown) (unknown) Albumin (units (unkno wn) date) unknown) (unknown) (no (unknown) (unknown) Albumin 5.8 H (units ( unknown) date) unknown) (unknown) (no (unknown) (unknown) Albumin/Globulin (units (unknown) date) Ratio unknown) (unknown) (no (unknown) (unknown) Albumin/Globulin (units (unknown) date) Ratio 1.1 unknown) (unknown) (no (unknown) (unknown) Alkaline (units (unkno wn) date) Phosphatase unknown) (unknown) (no (unknown) (unknown) Alkaline (units (unkno wn) date) Phosphatase 87 unknown) (unknown) (no (unknown) (unknown) Allergy/AdvReac (units (unknown) date) Type Severity unknown) Reaction Status Date / Time (unknown) (no (unknown) (unknown) Assessment + Plan (units (unknown) date) unknown) (unknown) (no (unknown) (unknown) BUN (units (unkno wn) date) unknown) (unknown) (no (unknown) (unknown) BUN 22 H (units (unkn own) date) unknown) (unknown) (no (unknown) (unknown) BUN/Creatinine (units (unknown) date) Ratio unknown) (unknown) (no (unknown) (unknown) BUN/Creatinine (units (unknown) date) Ratio 11.1 unknown) (unknown) (no (unknown) (unknown) Baso # (Auto) (units ( unknown) date) unknown) (unknown) (no (unknown) (unknown) Baso # (Auto) 0 (units (unknown) date) unknown) (unknown) (no (unknown) (unknown) Baso % (Auto) (units ( unknown) date) unknown) (unknown) (no (unknown) (unknown) Baso % (Auto) 0.4 (units (unknown) date) unknown) (unknown) (no (unknown) (unknown) Blood Pressure (units (unknown) date) 135/94 H unknown) (unknown) (no (unknown) (unknown) Calcium (units (unkno wn) date) unknown) (unknown) (no (unknown) (unknown) Calcium 10.9 H (units (unknown) date) unknown) (unknown) (no (unknown) (unknown) Carbon Dioxide (units (unknown) date) unknown) (unknown) (no (unknown) (unknown) Carbon Dioxide 33 (units (unknown) date) H unknown) (unknown) (no (unknown) (unknown) Chief complaint: (units (unknown) date) Vomiting, SOB unknown) (unknown) (no (unknown) (unknown) Chloride (units (unkno wn) date) unknown) (unknown) (no (unknown) (unknown) Chloride 83 L (units ( unknown) date) unknown) (unknown) (no (unknown) (unknown) Chronic abdominal (units (unknown) date) pain unknown) (unknown) (no (unknown) (unknown) Creatinine (units (unk nown) date) unknown) (unknown) (no (unknown) (unknown) Creatinine 1.99 H (units (unknown) date) unknown) (unknown) (no (unknown) (unknown) Critical Care (units ( unknown) date) time: unknown) (unknown) (no (unknown) (unknown) Cyclic vomiting (units (unknown) date) syndrome unknown) (unknown) (no (unknown) (unknown) : 1975 (units (unknown) date) Acct:[id number] unknown) (unknown) (no (unknown) (unknown) Date Patient (units (u nknown) date) Seen: 03/20/22 unknown) (unknown) (no (unknown) (unknown) Daughter (units (unkno wn) date) Angio-edema unknown) (unknown) (no (unknown) (unknown) Environment (units (un known) date) unknown) (unknown) (no (unknown) (unknown) Eos # (Auto) (units (u nknown) date) unknown) (unknown) (no (unknown) (unknown) Eos # (Auto) 0 (units (unknown) date) unknown) (unknown) (no (unknown) (unknown) Eos % (Auto) (units (u nknown) date) unknown) (unknown) (no (unknown) (unknown) Eos % (Auto) 0.0 (units (unknown) date) L unknown) (unknown) (no (unknown) (unknown) Estimated GFR (units ( unknown) date) unknown) (unknown) (no (unknown) (unknown) Estimated GFR 30 (units (unknown) date) L unknown) (unknown) (no (unknown) (unknown) Exam (units (unkno wn) date) unknown) (unknown) (no (unknown) (unknown) Family + Social (units (unknown) date) History unknown) (unknown) (no (unknown) (unknown) Family History (units (unknown) date) (Reviewed 03/20/22 unknown) @ 05:09 by Tremayne Jovel DO) (unknown) (no (unknown) (unknown) Family history of (units (unknown) date) angioedema unknown) (unknown) (no (unknown) (unknown) Father (units (unkno wn) date) Hypertension unknown) (unknown) (no (unknown) (unknown) Feels Safe in (units ( unknown) date) Current Yes unknown) (unknown) (no (unknown) (unknown) Globulin (units (unkno wn) date) unknown) (unknown) (no (unknown) (unknown) Globulin 5.2 H (units (unknown) date) unknown) (unknown) (no (unknown) (unknown) Glucose (units (unkno wn) date) unknown) (unknown) (no (unknown) (unknown) Glucose 142 H (units ( unknown) date) unknown) (unknown) (no (unknown) (unknown) Hct (units (unkno wn) date) unknown) (unknown) (no (unknown) (unknown) Hct 44.5 (units (unkno wn) date) unknown) (unknown) (no (unknown) (unknown) Hgb (units (unkno wn) date) unknown) (unknown) (no (unknown) (unknown) Hgb 15.3 (units (unkno wn) date) unknown) (unknown) (no (unknown) (unknown) History of (units (unk nown) date) Present Illness unknown) (unknown) (no (unknown) (unknown) Home Medications (units (unknown) date) and Allergies unknown) (unknown) (no (unknown) (unknown) Hx of (units (unkno wn) date) appendectomy unknown) (unknown) (no (unknown) (unknown) Hx of (units (unkno wn) date) cholecystectomy unknown) (unknown) (no (unknown) (unknown) I spent a total (units (unknown) date) of [] minutes of unknown) critical care time on this patient's care (unknown) (no (unknown) (unknown) Ketones (units (unkno wn) date) unknown) (unknown) (no (unknown) (unknown) Ketones 0.17 (units (u nknown) date) unknown) (unknown) (no (unknown) (unknown) Labs (units (unkno wn) date) unknown) (unknown) (no (unknown) (unknown) Labs: (units (unkno wn) date) unknown) (unknown) (no (unknown) (unknown) Lactate (units (unkno wn) date) unknown) (unknown) (no (unknown) (unknown) Lactate 2.2 H (units ( unknown) date) unknown) (unknown) (no (unknown) (unknown) Lymph # (Auto) (units (unknown) date) unknown) (unknown) (no (unknown) (unknown) Lymph # (Auto) (units (unknown) date) 1000 L unknown) (unknown) (no (unknown) (unknown) Lymph % (Auto) (units (unknown) date) unknown) (unknown) (no (unknown) (unknown) Lymph % (Auto) (units (unknown) date) 8.1 L unknown) (unknown) (no (unknown) (unknown) MCH (units (unkno wn) date) unknown) (unknown) (no (unknown) (unknown) MCH 31.6 (units (unkno wn) date) unknown) (unknown) (no (unknown) (unknown) MCHC (units (unkno wn) date) unknown) (unknown) (no (unknown) (unknown) MCHC 34.4 (units (unkn own) date) unknown) (unknown) (no (unknown) (unknown) MCV (units (unkno wn) date) unknown) (unknown) (no (unknown) (unknown) MCV 91.7 (units (unkno wn) date) unknown) (unknown) (no (unknown) (unknown) 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 (unknown) (no (unknown) (unknown) Marijuana use, (units (unknown) date) continuous unknown) (unknown) (no (unknown) (unknown) Medical History (units (unknown) date) (Reviewed 03/20/22 unknown) @ 05:09 by Tremayne Jovel DO) (unknown) (no (unknown) (unknown) Meds (units (unkno wn) date) unknown) (unknown) (no (unknown) (unknown) Centre # (Auto) (units ( unknown) date) unknown) (unknown) (no (unknown) (unknown) Centre # (Auto) (units ( unknown) date) 1000 H unknown) (unknown) (no (unknown) (unknown) Centre % (Auto) (units ( unknown) date) unknown) (unknown) (no (unknown) (unknown) Centre % (Auto) 8.3 (units (unknown) date) unknown) (unknown) (no (unknown) (unknown) Mother Diabetes (units (unknown) date) mellitus unknown) (unknown) (no (unknown) (unknown) Neut # (Auto) (units ( unknown) date) unknown) (unknown) (no (unknown) (unknown) Neut # (Auto) (units ( unknown) date) [address] H unknown) (unknown) (no (unknown) (unknown) Neut % (Auto) (units ( unknown) date) unknown) (unknown) (no (unknown) (unknown) Neut % (Auto) (units ( unknown) date) 83.2 H unknown) (unknown) (no (unknown) (unknown) Objective (units (unkn own) date) unknown) (unknown) (no (unknown) (unknown) Other Colon (units (un known) date) cancer unknown) (unknown) (no (unknown) (unknown) Oxygen Delivery (units (unknown) date) Method Room Air unknown) (unknown) (no (unknown) (unknown) Oxygen Delivery (units (unknown) date) Method Room Air unknown) (unknown) (no (unknown) (unknown) Pancreatitis (units (u nknown) date) unknown) (unknown) (no (unknown) (unknown) Patient History (units (unknown) date) unknown) (unknown) (no (unknown) (unknown) Patient: (units (unkno wn) date) Dameon Castro MR#: unknown) [id number] (unknown) (no (unknown) (unknown) Plt Count (units (unkn own) date) unknown) (unknown) (no (unknown) (unknown) Plt Count 273 (units ( unknown) date) unknown) (unknown) (no (unknown) (unknown) Potassium (units (unkn own) date) unknown) (unknown) (no (unknown) (unknown) Potassium 2.6 L* (units (unknown) date) unknown) (unknown) (no (unknown) (unknown) Provider: (units (unkn own) date) Kylee Arauz unknown) [employer] (unknown) (no (unknown) (unknown) Pulse Oximetry (units (unknown) date) 100 unknown) (unknown) (no (unknown) (unknown) Pulse Rate 99 H (units (unknown) date) unknown) (unknown) (no (unknown) (unknown) RBC (units (unkno wn) date) unknown) (unknown) (no (unknown) (unknown) RBC 4.86 (units (unkno wn) date) unknown) (unknown) (no (unknown) (unknown) RDW (units (unkno wn) date) unknown) (unknown) (no (unknown) (unknown) RDW 13.7 (units (unkno wn) date) unknown) (unknown) (no (unknown) (unknown) Respiratory Rate (units (unknown) date) 18 unknown) (unknown) (no (unknown) (unknown) Result Diagrams: (units (unknown) date) unknown) (unknown) (no (unknown) (unknown) SARS-CoV-2 (PCR) (units (unknown) date) unknown) (unknown) (no (unknown) (unknown) SARS-CoV-2 (PCR) (units (unknown) date) Negative unknown) (unknown) (no (unknown) (unknown) Safety + (units (unkno wn) date) Behavioral: unknown) (unknown) (no (unknown) (unknown) Signed By: (units (unk nown) date) unknown) (unknown) (no (unknown) (unknown) Smoking Status (units (unknown) date) Current every day unknown) smoker (unknown) (no (unknown) (unknown) Social History: (units (unknown) date) unknown) (unknown) (no (unknown) (unknown) Sodium (units (unkno wn) date) unknown) (unknown) (no (unknown) (unknown) Sodium 142 (units (unk nown) date) unknown) (unknown) (no (unknown) (unknown) Substance Use (units ( unknown) date) Type marijuana unknown) (unknown) (no (unknown) (unknown) Surgical History (units (unknown) date) (Reviewed 03/20/22 unknown) @ 05:09 by Tremayne Jovel DO) (unknown) (no (unknown) (unknown) Temperature 98.5 (units (unknown) date) F unknown) (unknown) (no (unknown) (unknown) Time Patient (units (u nknown) date) Seen: 06:47 unknown) (unknown) (no (unknown) (unknown) Time Spent With (units (unknown) date) Patient unknown) (unknown) (no (unknown) (unknown) Tobacco + (units (unkn own) date) Substance use: unknown) (unknown) (no (unknown) (unknown) Total Bilirubin (units (unknown) date) unknown) (unknown) (no (unknown) (unknown) Total Bilirubin (units (unknown) date) 1.7 H unknown) (unknown) (no (unknown) (unknown) Total Protein (units ( unknown) date) unknown) (unknown) (no (unknown) (unknown) Total Protein (units ( unknown) date) 11.0 H unknown) (unknown) (no (unknown) (unknown) VBG Base Excess (units (unknown) date) unknown) (unknown) (no (unknown) (unknown) VBG Base Excess (units (unknown) date) 23.0 H unknown) (unknown) (no (unknown) (unknown) VBG HCO3 (units (unkno wn) date) unknown) (unknown) (no (unknown) (unknown) VBG HCO3 44 H (units ( unknown) date) unknown) (unknown) (no (unknown) (unknown) VBG O2 Saturation (units (unknown) date) unknown) (unknown) (no (unknown) (unknown) VBG O2 Saturation (units (unknown) date) 91 H unknown) (unknown) (no (unknown) (unknown) VBG Total CO2 (units ( unknown) date) unknown) (unknown) (no (unknown) (unknown) VBG Total CO2 46 (units (unknown) date) H unknown) (unknown) (no (unknown) (unknown) VBG pCO2 (units (unkno wn) date) unknown) (unknown) (no (unknown) (unknown) VBG pCO2 45.0 (units ( unknown) date) unknown) (unknown) (no (unknown) (unknown) VBG pH (units (unkno wn) date) unknown) (unknown) (no (unknown) (unknown) VBG pH 7.60 H (units ( unknown) date) unknown) (unknown) (no (unknown) (unknown) VBG pO2 (units (unkno wn) date) unknown) (unknown) (no (unknown) (unknown) VBG pO2 52 H (units (u nknown) date) unknown) (unknown) (no (unknown) (unknown) Vital Signs (units (un known) date) unknown) (unknown) (no (unknown) (unknown) WBC (units (unkno wn) date) unknown) (unknown) (no (unknown) (unknown) WBC 12.0 H (units (unk nown) date) unknown) (unknown) (no (unknown) (unknown) [Embedded Image (units (unknown) date) Not Available] unknown) (unknown) (no (unknown) (unknown) [METOCLOPRAMIDE] (units (unknown) date) unknown) (unknown) (no (unknown) (unknown) alcohol intake (units (unknown) date) frequency 3 or unknown) more drinks per day (unknown) (no (unknown) (unknown) household members (units (unknown) date) spouse unknown) (unknown) (no (unknown) (unknown) latex [LATEX] (units ( unknown) date) Allergy Unknown unknown) Verified 11/02/21 15:46 (unknown) (no (unknown) (unknown) lorazepam 0.5 mg (units (unknown) date) tablet (Ativan) unknown) 0.5 mg PO DAILY PRN nausea and 11/03/21 Rx (unknown) (no (unknown) (unknown) metoclopramide (units (unknown) date) AdvReac Unknown unknown) DYSTONIA Verified 11/02/21 15:46 (unknown) (no (unknown) (unknown) ondansetron 4 mg (units (unknown) date) disintegrating 4 unknown) mg PO Q8H PRN nausea and 07/28/19 08/26/21 Rx (unknown) (no (unknown) (unknown) ondansetron 8 mg (units (unknown) date) disintegrating 8 unknown) mg PO TID PRN Nausea 09/18/19 08/26/21 History (unknown) (no (unknown) (unknown) promethazine (units (u nknown) date) [PROMETHAZINE] unknown) Allergy Mild ERYTHEMA Verified 08/26/21 15:49 (unknown) (no (unknown) (unknown) spray headache #1 (units (unknown) date) ea unknown) (unknown) (no (unknown) (unknown) sumatriptan 5 (units ( unknown) date) mg/actuation nasal unknown) 5 mg intranasal Q2-4H PRN migraine 06/04/21 (unknown) (no (unknown) (unknown) tablet (units (unkno wn) date) unknown) (unknown) (no (unknown) (unknown) tablet vomiting (units (unknown) date) #10 tabs unknown) (unknown) (no (unknown) (unknown) today; this time (units (unknown) date) is exclusive of unknown) procedural time. Result panel 16 (unknown) (no date) (unknown) (unknown) 5.4 % (unkn own) Result panel 17 (unknown) (no date) (unknown) (unknown) 2.0 mg/dL (unkn own) Result panel 18 (unknown) (no (unknown) (unknown) (no value) (units (unk nown) date) unknown) (unknown) (no (unknown) (unknown) (no value) (units (unk nown) date) unknown) (unknown) (no (unknown) (unknown) Date of Service: (units (unknown) date) 03/20/22 unknown) (unknown) (no (unknown) (unknown) (no value) (units (unk nown) date) unknown) (unknown) (no (unknown) (unknown) - (units (unkno wn) date) unknown) (unknown) (no (unknown) (unknown) 03/20/22 04:40 (units (unknown) date) unknown) (unknown) (no (unknown) (unknown) ABLE TO (units (unkno wn) date) unknown) (unknown) (no (unknown) (unknown) Allergies (units (unkn own) date) unknown) (unknown) (no (unknown) (unknown) History + (units (unkn own) date) Physical Report unknown) (unknown) (no (unknown) (unknown) Home Medications (units (unknown) date) unknown) (unknown) (no (unknown) (unknown) [facility] (units (unknown) date) [address] unknown) [place] [address] (unknown) (no (unknown) (unknown) Laboratory (units (unk nown) date) Results - last 24 unknown) hr (unknown) (no (unknown) (unknown) PT STATES (units (unkn own) date) unknown) (unknown) (no (unknown) (unknown) [facility] (units (unkno wn) date) unknown) (unknown) (no (unknown) (unknown) TO IV SITE (units (unk nown) date) unknown) (unknown) (no (unknown) (unknown) (no value) (units (unk nown) date) unknown) (unknown) (no (unknown) (unknown) 04:40 04:40 04:40 (units (unknown) date) unknown) (unknown) (no (unknown) (unknown) 05:30 05:44 05:45 (units (unknown) date) unknown) (unknown) (no (unknown) (unknown) 03/20/22 03/20/22 (units (unknown) date) 03/20/22 unknown) (unknown) (no (unknown) (unknown) 03/20/22 (units (unkno wn) date) unknown) (unknown) (no (unknown) (unknown) Medication (units (unk nown) date) Instructions unknown) Recorded Confirmed Type (unknown) (no (unknown) (unknown) documented. (units (un known) date) unknown) (unknown) (no (unknown) (unknown) rales, or (units (unkn own) date) rhonchi.? unknown) (unknown) (no (unknown) (unknown) sounds present in (units (unknown) date) all 4 quadrants unknown) (unknown) (no (unknown) (unknown) vomiting #10 tabs (units (unknown) date) unknown) (unknown) (no (unknown) (unknown) (past 8 hours): (units (unknown) date) unknown) (unknown) (no (unknown) (unknown) 04:13 (units (unkno wn) date) unknown) (unknown) (no (unknown) (unknown) 08/26/21 Rx (units (unk nown) date) unknown) (unknown) (no (unknown) (unknown) 10,000, monitor (units (unknown) date) feels 1000. unknown) Patient has SERGEY chloride 83, hypokalemia potassium (unknown) (no (unknown) (unknown) 2.6, bicarb 33, (units (unknown) date) creatinine 1.99, unknown) glucose 142, GFR of 30. 11/03/2021 patient's (unknown) (no (unknown) (unknown) [id number] (units (unkno wn) date) unknown) (unknown) (no (unknown) (unknown) ALT (units (o wn) date) unknown) (unknown) (no (unknown) (unknown) ALT 36 H (units (unkno wn) date) unknown) (unknown) (no (unknown) (unknown) ALT 36, ketones (units (unknown) date) are negative. unknown) Patient is admitted for cyclic nausea and (unknown) (no (unknown) (unknown) AST (units (unkno wn) date) unknown) (unknown) (no (unknown) (unknown) AST 39 H (units (o wn) date) unknown) (unknown) (no (unknown) (unknown) Abscess (units (o wn) date) unknown) (unknown) (no (unknown) (unknown) Age/Sex: 46 / F (units (unknown) date) unknown) (unknown) (no (unknown) (unknown) Albumin (units (o wn) date) unknown) (unknown) (no (unknown) (unknown) Albumin 5.8 H (units ( unknown) date) unknown) (unknown) (no (unknown) (unknown) Albumin/Globulin (units (unknown) date) Ratio unknown) (unknown) (no (unknown) (unknown) Albumin/Globulin (units (unknown) date) Ratio 1.1 unknown) (unknown) (no (unknown) (unknown) Alkaline (units (o wn) date) Phosphatase unknown) (unknown) (no (unknown) (unknown) Alkaline (units (unkno wn) date) Phosphatase 87 unknown) (unknown) (no (unknown) (unknown) All 12 point (units (un known) date) systems reviewed unknown) with the patient and are negative except otherwise (unknown) (no (unknown) (unknown) Allergy/AdvReac (units (unknown) date) Type Severity unknown) Reaction Status Date / Time (unknown) (no (unknown) (unknown) Assessment + Plan (units (unknown) date) unknown) (unknown) (no (unknown) (unknown) BACK: Nontender (units (unknown) date) without deformity unknown) or crepitance. No flank tenderness. (unknown) (no (unknown) (unknown) BUN (units (unkno wn) date) unknown) (unknown) (no (unknown) (unknown) BUN 22 H (units (unkno wn) date) unknown) (unknown) (no (unknown) (unknown) BUN/Creatinine (units (unknown) date) Ratio unknown) (unknown) (no (unknown) (unknown) BUN/Creatinine (units (unknown) date) Ratio 11.1 unknown) (unknown) (no (unknown) (unknown) Baso # (Auto) (units ( unknown) date) unknown) (unknown) (no (unknown) (unknown) Baso # (Auto) 0 (units (unknown) date) unknown) (unknown) (no (unknown) (unknown) Baso % (Auto) (units ( unknown) date) unknown) (unknown) (no (unknown) (unknown) Baso % (Auto) 0.4 (units (unknown) date) unknown) (unknown) (no (unknown) (unknown) Blood Pressure (units (unknown) date) 135/94 H unknown) (unknown) (no (unknown) (unknown) CARDIOVASCULAR: (units (unknown) date) Regular rate and unknown) rhythm without murmurs, gallops, or rubs. (unknown) (no (unknown) (unknown) Calcium (units (unkno wn) date) unknown) (unknown) (no (unknown) (unknown) Calcium 10.9 H (units (unknown) date) unknown) (unknown) (no (unknown) (unknown) Carbon Dioxide (units (unknown) date) unknown) (unknown) (no (unknown) (unknown) Carbon Dioxide 33 (units (unknown) date) H unknown) (unknown) (no (unknown) (unknown) Chief complaint: (units (unknown) date) Vomiting, SOB unknown) (unknown) (no (unknown) (unknown) Chloride (units (unkno wn) date) unknown) (unknown) (no (unknown) (unknown) Chloride 83 L (units ( unknown) date) unknown) (unknown) (no (unknown) (unknown) Chronic abdominal (units (unknown) date) pain unknown) (unknown) (no (unknown) (unknown) Creatinine (units (unk nown) date) unknown) (unknown) (no (unknown) (unknown) Creatinine 1.99 H (units (unknown) date) unknown) (unknown) (no (unknown) (unknown) Critical Care (units ( unknown) date) time: unknown) (unknown) (no (unknown) (unknown) Cyclic vomiting (units (unknown) date) syndrome unknown) (unknown) (no (unknown) (unknown) : 1975 (units (unknown) date) Acct:[id number] unknown) (unknown) (no (unknown) (unknown) Date Patient (units (u nknown) date) Seen: 03/20/22 unknown) (unknown) (no (unknown) (unknown) Daughter (units (unkno wn) date) Angio-edema unknown) (unknown) (no (unknown) (unknown) ENT:? Dry mucous (units (unknown) date) membranes Nose unknown) without bleeding, purulent drainage. Throat (unknown) (no (unknown) (unknown) EXTREMITIES: No (units (unknown) date) edema or joint unknown) tenderness. (unknown) (no (unknown) (unknown) EYES: Pupils (units (u nknown) date) equal round and unknown) reactive. Extraocular motions intact. No scleral (unknown) (no (unknown) (unknown) Environment (units (un known) date) unknown) (unknown) (no (unknown) (unknown) Eos # (Auto) (units (u nknown) date) unknown) (unknown) (no (unknown) (unknown) Eos # (Auto) 0 (units (unknown) date) unknown) (unknown) (no (unknown) (unknown) Eos % (Auto) (units (u nknown) date) unknown) (unknown) (no (unknown) (unknown) Eos % (Auto) 0.0 (units (unknown) date) L unknown) (unknown) (no (unknown) (unknown) Estimated GFR (units ( unknown) date) unknown) (unknown) (no (unknown) (unknown) Estimated GFR 30 (units (unknown) date) L unknown) (unknown) (no (unknown) (unknown) Exam (units (unkno wn) date) unknown) (unknown) (no (unknown) (unknown) Exam Narrative: (units (unknown) date) unknown) (unknown) (no (unknown) (unknown) Family + Social (units (unknown) date) History unknown) (unknown) (no (unknown) (unknown) Family History (units (unknown) date) (Reviewed 03/20/22 unknown) @ 06:52 [facility]) (unknown) (no (unknown) (unknown) Family history of (units (unknown) date) angioedema unknown) (unknown) (no (unknown) (unknown) Father (units (unkno wn) date) Hypertension unknown) (unknown) (no (unknown) (unknown) Feels Safe in (units ( unknown) date) Current Yes unknown) (unknown) (no (unknown) (unknown) GASTROINTESTINAL: (units (unknown) date) Abdomen soft, unknown) generalized abdominal pain, nondistended.? Bowel (unknown) (no (unknown) (unknown) GENERAL: [46] (units ( unknown) date) year old patient unknown) appears stated age. Well-developed patient, in (unknown) (no (unknown) (unknown) GFR>60, creatinine (units (unknown) date) 0.62. Patient's unknown) total protein 11, globulin 5.2, albumin 5.8, (unknown) (no (unknown) (unknown) Globulin (units (unkno wn) date) unknown) (unknown) (no (unknown) (unknown) Globulin 5.2 H (units (unknown) date) unknown) (unknown) (no (unknown) (unknown) Glucose (units (unkno wn) date) unknown) (unknown) (no (unknown) (unknown) Glucose 142 H (units ( unknown) date) unknown) (unknown) (no (unknown) (unknown) HEAD: Atraumatic. (units (unknown) date) Normocephalic. unknown) (unknown) (no (unknown) (unknown) Hct (units (unkno wn) date) unknown) (unknown) (no (unknown) (unknown) Hct 44.5 (units (unkno wn) date) unknown) (unknown) (no (unknown) (unknown) Hgb (units (unkno wn) date) unknown) (unknown) (no (unknown) (unknown) Hgb 15.3 (units (unkno wn) date) unknown) (unknown) (no (unknown) (unknown) History of (units (unk nown) date) Present Illness unknown) (unknown) (no (unknown) (unknown) Home Medications (units (unknown) date) and Allergies unknown) (unknown) (no (unknown) (unknown) Hx of (units (unkno wn) date) appendectomy unknown) (unknown) (no (unknown) (unknown) Hx of (units (unkno wn) date) cholecystectomy unknown) (unknown) (no (unknown) (unknown) I spent a total (units (unknown) date) of [] minutes of unknown) critical care time on this patient's care (unknown) (no (unknown) (unknown) Ketones (units (unkno wn) date) unknown) (unknown) (no (unknown) (unknown) Ketones 0.17 (units (u nknown) date) unknown) (unknown) (no (unknown) (unknown) Labs (units (unkno wn) date) unknown) (unknown) (no (unknown) (unknown) Labs: (units (unkno wn) date) unknown) (unknown) (no (unknown) (unknown) Lactate (units (unkno wn) date) unknown) (unknown) (no (unknown) (unknown) Lactate 2.2 H (units ( unknown) date) unknown) (unknown) (no (unknown) (unknown) Lymph # (Auto) (units (unknown) date) unknown) (unknown) (no (unknown) (unknown) Lymph # (Auto) (units (unknown) date) 1000 L unknown) (unknown) (no (unknown) (unknown) Lymph % (Auto) (units (unknown) date) unknown) (unknown) (no (unknown) (unknown) Lymph % (Auto) (units (unknown) date) 8.1 L unknown) (unknown) (no (unknown) (unknown) MCH (units (unkno wn) date) unknown) (unknown) (no (unknown) (unknown) MCH 31.6 (units (unkno wn) date) unknown) (unknown) (no (unknown) (unknown) MCHC (units (unkno wn) date) unknown) (unknown) (no (unknown) (unknown) MCHC 34.4 (units (unkn own) date) unknown) (unknown) (no (unknown) (unknown) MCV (units (unkno wn) date) unknown) (unknown) (no (unknown) (unknown) MCV 91.7 (units (unkno wn) date) unknown) (unknown) (no (unknown) (unknown) 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 (unknown) (no (unknown) (unknown) Marijuana use, (units (unknown) date) continuous unknown) (unknown) (no (unknown) (unknown) Medical History (units (unknown) date) (Reviewed 03/20/22 unknown) @ 06:52 [facility]) (unknown) (no (unknown) (unknown) Meds (units (unkno wn) date) unknown) (unknown) (no (unknown) (unknown) Dameon Castro is a (units (unknown) date) 46-year-old female unknown) with history of cyclic vomiting and (unknown) (no (unknown) (unknown) Centre # (Auto) (units ( unknown) date) unknown) (unknown) (no (unknown) (unknown) Centre # (Auto) (units ( unknown) date) 1000 H unknown) (unknown) (no (unknown) (unknown) Centre % (Auto) (units ( unknown) date) unknown) (unknown) (no (unknown) (unknown) Centre % (Auto) 8.3 (units (unknown) date) unknown) (unknown) (no (unknown) (unknown) Mother Diabetes (units (unknown) date) mellitus unknown) (unknown) (no (unknown) (unknown) NECK: Trachea (units ( unknown) date) midline. Non unknown) tender (unknown) (no (unknown) (unknown) NEURO: AOx3. (units (u nknown) date) unknown) (unknown) (no (unknown) (unknown) Narrative (units (unkn own) date) unknown) (unknown) (no (unknown) (unknown) Narrative: (units (unk nown) date) unknown) (unknown) (no (unknown) (unknown) Neut # (Auto) (units ( unknown) date) unknown) (unknown) (no (unknown) (unknown) Neut # (Auto) (units ( unknown) date) 51918 H unknown) (unknown) (no (unknown) (unknown) Neut % (Auto) (units ( unknown) date) unknown) (unknown) (no (unknown) (unknown) Neut % (Auto) (units ( unknown) date) 83.2 H unknown) (unknown) (no (unknown) (unknown) Objective (units (unkn own) date) unknown) (unknown) (no (unknown) (unknown) On admit patient (units (unknown) date) presents afebrile unknown) temp 98.5?, BP 135/94, HR 99, RR 18, O2 (unknown) (no (unknown) (unknown) Other Colon (units (un known) date) cancer unknown) (unknown) (no (unknown) (unknown) Oxygen Delivery (units (unknown) date) Method Room Air unknown) (unknown) (no (unknown) (unknown) Oxygen Delivery (units (unknown) date) Method Room Air unknown) (unknown) (no (unknown) (unknown) Pancreatitis (units (u nknown) date) unknown) (unknown) (no (unknown) (unknown) Patient History (units (unknown) date) unknown) (unknown) (no (unknown) (unknown) Patient: (units (unkno wn) date) Dameon Castro MR#: unknown) [id number] (unknown) (no (unknown) (unknown) Plt Count (units (unkn own) date) unknown) (unknown) (no (unknown) (unknown) Plt Count 273 (units ( unknown) date) unknown) (unknown) (no (unknown) (unknown) Potassium (units (unkn own) date) unknown) (unknown) (no (unknown) (unknown) Potassium 2.6 L* (units (unknown) date) unknown) (unknown) (no (unknown) (unknown) Provider: (units (unkn own) date) Kylee Aaruz unknown) [employer]ALL[employer] 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 unknown) Breath sounds equal bilaterally. No wheezes, (unknown) (no (unknown) (unknown) Respiratory Rate (units (unknown) date) 18 unknown) (unknown) (no (unknown) (unknown) Result Diagrams: (units (unknown) date) unknown) (unknown) (no (unknown) (unknown) Review of Systems (units (unknown) date) unknown) (unknown) (no (unknown) (unknown) SARS-CoV-2 (PCR) (units (unknown) date) unknown) (unknown) (no (unknown) (unknown) SARS-CoV-2 (PCR) (units (unknown) date) Negative unknown) (unknown) (no (unknown) (unknown) SKIN: No rash or (units (unknown) date) erythema of unknown) visible areas (unknown) (no (unknown) (unknown) Safety + (units (unkno wn) date) Behavioral: unknown) (unknown) (no (unknown) (unknown) Signed By: (units (unk nown) date) unknown) (unknown) (no (unknown) (unknown) Smoking Status (units (unknown) date) Current every day unknown) smoker (unknown) (no (unknown) (unknown) Social History: (units (unknown) date) unknown) (unknown) (no (unknown) (unknown) Sodium (units (unkno wn) date) unknown) (unknown) (no (unknown) (unknown) Sodium 142 (units (unk nown) date) unknown) (unknown) (no (unknown) (unknown) Substance Use (units ( unknown) date) Type marijuana unknown) (unknown) (no (unknown) (unknown) Surgical History (units (unknown) date) (Reviewed 03/20/22 unknown) @ 06:52 by SWATI Ann) (unknown) (no (unknown) (unknown) Temperature 98.5 (units (unknown) date) F unknown) (unknown) (no (unknown) (unknown) Time Patient (units (u nknown) date) Seen: 06:47 unknown) (unknown) (no (unknown) (unknown) Time Spent With (units (unknown) date) Patient unknown) (unknown) (no (unknown) (unknown) Tobacco + (units (unkn own) date) Substance use: unknown) (unknown) (no (unknown) (unknown) Total Bilirubin (units (unknown) date) unknown) (unknown) (no (unknown) (unknown) Total Bilirubin (units (unknown) date) 1.7 H unknown) (unknown) (no (unknown) (unknown) Total Protein (units ( unknown) date) unknown) (unknown) (no (unknown) (unknown) Total Protein (units ( unknown) date) 11.0 H unknown) (unknown) (no (unknown) (unknown) VBG Base Excess (units (unknown) date) unknown) (unknown) (no (unknown) (unknown) VBG Base Excess (units (unknown) date) 23.0 H unknown) (unknown) (no (unknown) (unknown) VBG HCO3 (units (unkno wn) date) unknown) (unknown) (no (unknown) (unknown) VBG HCO3 44 H (units ( unknown) date) unknown) (unknown) (no (unknown) (unknown) VBG O2 Saturation (units (unknown) date) unknown) (unknown) (no (unknown) (unknown) VBG O2 Saturation (units (unknown) date) 91 H unknown) (unknown) (no (unknown) (unknown) VBG Total CO2 (units ( unknown) date) unknown) (unknown) (no (unknown) (unknown) VBG Total CO2 46 (units (unknown) date) H unknown) (unknown) (no (unknown) (unknown) VBG pCO2 (units (unkno wn) date) unknown) (unknown) (no (unknown) (unknown) VBG pCO2 45.0 (units ( unknown) date) unknown) (unknown) (no (unknown) (unknown) VBG pH (units (unkno wn) date) unknown) (unknown) (no (unknown) (unknown) VBG pH 7.60 H (units ( unknown) date) unknown) (unknown) (no (unknown) (unknown) VBG pO2 (units (unkno wn) date) unknown) (unknown) (no (unknown) (unknown) VBG pO2 52 H (units (u nknown) date) unknown) (unknown) (no (unknown) (unknown) Vital Signs (units (un known) date) unknown) (unknown) (no (unknown) (unknown) WBC (units (unkno wn) date) unknown) (unknown) (no (unknown) (unknown) WBC 12.0 H (units (unk nown) date) unknown) (unknown) (no (unknown) (unknown) [Embedded Image (units (unknown) date) Not Available] unknown) (unknown) (no (unknown) (unknown) [METOCLOPRAMIDE] (units (unknown) date) unknown) (unknown) (no (unknown) (unknown) abdominal (units (unkn own) date) migraines presents unknown) under similar circumstances complaining of (unknown) (no (unknown) (unknown) alcohol intake (units (unknown) date) frequency 3 or unknown) more drinks per day (unknown) (no (unknown) (unknown) alkalosis- VBG is (units (unknown) date) pH 7.6, CO2 45, unknown) PO2 52, HC03 44, O2 saturation 91%, base (unknown) (no (unknown) (unknown) bowel or bladder (units (unknown) date) issues, recent unknown) illness injury or trauma. (unknown) (no (unknown) (unknown) excess 23 patient (units (unknown) date) does have a white unknown) count of 12 with a left shift neutrophils (unknown) (no (unknown) (unknown) generalized (units (un known) date) abdominal pain and unknown) frequent vomiting over the past 2 days despite (unknown) (no (unknown) (unknown) her hands which is (units (unknown) date) not normal for unknown) her.? She denies any new medications or change (unknown) (no (unknown) (unknown) household members (units (unknown) date) spouse unknown) (unknown) (no (unknown) (unknown) icterus. No (units (un known) date) injection or unknown) drainage. (unknown) (no (unknown) (unknown) in her diet.? She (units (unknown) date) denies any recent unknown) travel. Patient denies chest pain, (unknown) (no (unknown) (unknown) lactate 2.2 (units (un known) date) patient has a gap unknown) of 26, calcium is 10.9, total bili 1.7, AST 39, (unknown) (no (unknown) (unknown) latex [LATEX] (units ( unknown) date) Allergy Unknown unknown) Verified 11/02/21 15:46 (unknown) (no (unknown) (unknown) lorazepam 0.5 mg (units (unknown) date) tablet (Ativan) unknown) 0.5 mg PO DAILY PRN nausea and 11/03/21 Rx (unknown) (no (unknown) (unknown) metoclopramide (units (unknown) date) AdvReac Unknown unknown) DYSTONIA Verified 11/02/21 15:46 (unknown) (no (unknown) (unknown) moderate (units (unkno wn) date) distress, lying on unknown) her side holding an emesis bag, clearly feeling (unknown) (no (unknown) (unknown) ondansetron 4 mg (units (unknown) date) disintegrating 4 unknown) mg PO Q8H PRN nausea and 07/28/19 08/26/21 Rx (unknown) (no (unknown) (unknown) ondansetron 8 mg (units (unknown) date) disintegrating 8 unknown) mg PO TID PRN Nausea 09/18/19 08/26/21 History (unknown) (no (unknown) (unknown) promethazine (units (u nknown) date) [PROMETHAZINE] unknown) Allergy Mild ERYTHEMA Verified 08/26/21 15:49 (unknown) (no (unknown) (unknown) recent illness, (units (unknown) date) or exposure, blood unknown) in her vomit, blood in urine blood in stool, (unknown) (no (unknown) (unknown) saturation 100% (units (unknown) date) on room air. unknown) Patient presents with respiratory and metabolic (unknown) (no (unknown) (unknown) shortness of (units (u nknown) date) breath, upper unknown) respiratory symptoms, fever, body aches, chills, (unknown) (no (unknown) (unknown) spray headache #1 (units (unknown) date) ea unknown) (unknown) (no (unknown) (unknown) states that over (units (unknown) date) the course of the unknown) day she is developed cramping and tingling in (unknown) (no (unknown) (unknown) sumatriptan 5 (units ( unknown) date) mg/actuation nasal unknown) 5 mg intranasal Q2-4H PRN migraine 06/04/21 0 (unknown) (no (unknown) (unknown) tablet (units (unkno wn) date) unknown) (unknown) (no (unknown) (unknown) tablet vomiting (units (unknown) date) #10 tabs unknown) (unknown) (no (unknown) (unknown) the use of her (units (unknown) date) home Zofran and unknown) suppository.? She has terrible appetite and (unknown) (no (unknown) (unknown) today; this time (units (unknown) date) is exclusive of unknown) procedural time. (unknown) (no (unknown) (unknown) unwell (units (unkno wn) date) unknown) (unknown) (no (unknown) (unknown) vomiting with (units ( unknown) date) respiratory unknown) metabolic alkalosis, SERGEY and hypokalemia. (unknown) (no (unknown) (unknown) without erythema, (units (unknown) date) tonsillar unknown) hypertrophy or exudate. Airway patent. Result panel 19 (unknown) (no (unknown) (unknown) (no value) (units (unk nown) date) unknown) (unknown) (no (unknown) (unknown) (no value) (units (unk nown) date) unknown) (unknown) (no (unknown) (unknown) Date of Service: (units (unknown) date) 03/20/22 unknown) (unknown) (no (unknown) (unknown) (no value) (units (unk nown) date) unknown) (unknown) (no (unknown) (unknown) - (units (unkno wn) date) unknown) (unknown) (no (unknown) (unknown) 03/20/22 04:40 (units (unknown) date) unknown) (unknown) (no (unknown) (unknown) ABLE TO (units (unkno wn) date) unknown) (unknown) (no (unknown) (unknown) Allergies (units (unkn own) date) unknown) (unknown) (no (unknown) (unknown) History + (units (unkn own) date) Physical Report unknown) (unknown) (no (unknown) (unknown) Home Medications (units (unknown) date) unknown) (unknown) (no (unknown) (unknown) [facility] (units (unknown) date) [address] unknown) [place] [id number] (unknown) (no (unknown) (unknown) Laboratory (units (unk nown) date) Results - last 24 unknown) hr (unknown) (no (unknown) (unknown) PT STATES (units (unkn own) date) unknown) (unknown) (no (unknown) (unknown) [facility] (units (unkno wn) date) unknown) (unknown) (no (unknown) (unknown) TO IV SITE (units (unk nown) date) unknown) (unknown) (no (unknown) (unknown) (no value) (units (unk nown) date) unknown) (unknown) (no (unknown) (unknown) 04:40 04:40 04:40 (units (unknown) date) unknown) (unknown) (no (unknown) (unknown) 05:30 05:44 05:45 (units (unknown) date) unknown) (unknown) (no (unknown) (unknown) 03/20/22 03/20/22 (units (unknown) date) 03/20/22 unknown) (unknown) (no (unknown) (unknown) 03/20/22 (units (unkno wn) date) unknown) (unknown) (no (unknown) (unknown) Medication (units (unk nown) date) Instructions unknown) Recorded Confirmed Type (unknown) (no (unknown) (unknown) documented. (units (un known) date) unknown) (unknown) (no (unknown) (unknown) is in an emergent (units (unknown) date) medical situation unknown) were delaying treatment would jeopardize (unknown) (no (unknown) (unknown) rales, or (units (unkn own) date) rhonchi.? unknown) (unknown) (no (unknown) (unknown) sounds present in (units (unknown) date) all 4 quadrants unknown) (unknown) (no (unknown) (unknown) to cyclic (units (unkn own) date) vomiting, unknown) resulting in SERGEY and hypokalemia. (unknown) (no (unknown) (unknown) vomiting #10 tabs (units (unknown) date) unknown) (unknown) (no (unknown) (unknown) (past 8 hours): (units (unknown) date) unknown) (unknown) (no (unknown) (unknown) 04:13 (units (unkno wn) date) unknown) (unknown) (no (unknown) (unknown) 1. Cyclic (units (unkn own) date) vomiting, unknown) resulting in respiratory metabolic and respiratory (unknown) (no (unknown) (unknown) 08/26/21 Rx (units (unk nown) date) unknown) (unknown) (no (unknown) (unknown) 10,000, monitor (units (unknown) date) feels 1000. unknown) Patient has SERGEY chloride 83, hypokalemia potassium (unknown) (no (unknown) (unknown) 2. SERGEY as a (units (un known) date) result of cyclic unknown) vomiting, with leukocytosis, acute, present on (unknown) (no (unknown) (unknown) 2.6, bicarb 33, (units (unknown) date) creatinine 1.99, unknown) glucose 142, GFR of 30. 11/03/2021 patient's (unknown) (no (unknown) (unknown) [id number] (units (unkno wn) date) unknown) (unknown) (no (unknown) (unknown) 3. Hypokalemia, (units (unknown) date) acute, present on unknown) admission likely secondary to cyclic vomiting (unknown) (no (unknown) (unknown) ALT (units (unkno wn) date) unknown) (unknown) (no (unknown) (unknown) ALT 36 H (units (unkno wn) date) unknown) (unknown) (no (unknown) (unknown) ALT 36, ketones (units (unknown) date) are negative. unknown) Patient is admitted for cyclic nausea and (unknown) (no (unknown) (unknown) AST (units (unkno wn) date) unknown) (unknown) (no (unknown) (unknown) AST 39 H (units (unkno wn) date) unknown) (unknown) (no (unknown) (unknown) Abscess (units (unkno wn) date) unknown) (unknown) (no (unknown) (unknown) Age/Sex: 46 / F (units (unknown) date) unknown) (unknown) (no (unknown) (unknown) Albumin (units (unkno wn) date) unknown) (unknown) (no (unknown) (unknown) Albumin 5.8 H (units ( unknown) date) unknown) (unknown) (no (unknown) (unknown) Albumin/Globulin (units (unknown) date) Ratio unknown) (unknown) (no (unknown) (unknown) Albumin/Globulin (units (unknown) date) Ratio 1.1 unknown) (unknown) (no (unknown) (unknown) Alkaline (units (unkno wn) date) Phosphatase unknown) (unknown) (no (unknown) (unknown) Alkaline (units (unkno wn) date) Phosphatase 87 unknown) (unknown) (no (unknown) (unknown) All 12 point (units (un known) date) systems reviewed unknown) with the patient and are negative except otherwise (unknown) (no (unknown) (unknown) Allergy/AdvReac (units (unknown) date) Type Severity unknown) Reaction Status Date / Time (unknown) (no (unknown) (unknown) Assessment + Plan (units (unknown) date) unknown) (unknown) (no (unknown) (unknown) Assessment + Plan (units (unknown) date) narrative: unknown) (unknown) (no (unknown) (unknown) BACK: Nontender (units (unknown) date) without deformity unknown) or crepitance. No flank tenderness. (unknown) (no (unknown) (unknown) BUN (units (unkno wn) date) unknown) (unknown) (no (unknown) (unknown) BUN 22 H (units (unkno wn) date) unknown) (unknown) (no (unknown) (unknown) BUN/Creatinine (units (unknown) date) Ratio unknown) (unknown) (no (unknown) (unknown) BUN/Creatinine (units (unknown) date) Ratio 11.1 unknown) (unknown) (no (unknown) (unknown) Baso # (Auto) (units ( unknown) date) unknown) (unknown) (no (unknown) (unknown) Baso # (Auto) 0 (units (unknown) date) unknown) (unknown) (no (unknown) (unknown) Baso % (Auto) (units ( unknown) date) unknown) (unknown) (no (unknown) (unknown) Baso % (Auto) 0.4 (units (unknown) date) unknown) (unknown) (no (unknown) (unknown) Blood Pressure (units (unknown) date) 135/94 H unknown) (unknown) (no (unknown) (unknown) CARDIOVASCULAR: (units (unknown) date) Regular rate and unknown) rhythm without murmurs, gallops, or rubs. (unknown) (no (unknown) (unknown) COVID PCR: (units (unk nown) date) unknown) (unknown) (no (unknown) (unknown) COVID (units (unkno wn) date) vaccination: unknown) (unknown) (no (unknown) (unknown) Calcium (units (unkno wn) date) unknown) (unknown) (no (unknown) (unknown) Calcium 10.9 H (units (unknown) date) unknown) (unknown) (no (unknown) (unknown) Carbon Dioxide (units (unknown) date) unknown) (unknown) (no (unknown) (unknown) Carbon Dioxide 33 (units (unknown) date) H unknown) (unknown) (no (unknown) (unknown) Chief complaint: (units (unknown) date) Vomiting, SOB unknown) (unknown) (no (unknown) (unknown) Chloride (units (o wn) date) unknown) (unknown) (no (unknown) (unknown) Chloride 83 L (units ( unknown) date) unknown) (unknown) (no (unknown) (unknown) Chronic abdominal (units (unknown) date) pain unknown) (unknown) (no (unknown) (unknown) Code status: (units (u nknown) date) unknown) (unknown) (no (unknown) (unknown) Creatinine (units (unk nown) date) unknown) (unknown) (no (unknown) (unknown) Creatinine 1.99 H (units (unknown) date) unknown) (unknown) (no (unknown) (unknown) Critical Care (units ( unknown) date) time: unknown) (unknown) (no (unknown) (unknown) Cyclic vomiting (units (unknown) date) syndrome unknown) (unknown) (no (unknown) (unknown) : 1975 (units (unknown) date) Acct:[id number] unknown) (unknown) (no (unknown) (unknown) DVT/VTE (units (o wn) date) prophylaxis: unknown) (unknown) (no (unknown) (unknown) Date Patient (units (u nknown) date) Seen: 03/20/22 unknown) (unknown) (no (unknown) (unknown) Daughter (units (o wn) date) Angio-edema unknown) (unknown) (no (unknown) (unknown) Disposition: (units (u nknown) date) unknown) (unknown) (no (unknown) (unknown) ENT:? Dry mucous (units (unknown) date) membranes Nose unknown) without bleeding, purulent drainage. Throat (unknown) (no (unknown) (unknown) EXTREMITIES: No (units (unknown) date) edema or joint unknown) tenderness. (unknown) (no (unknown) (unknown) EYES: Pupils (units (u nknown) date) equal round and unknown) reactive. Extraocular motions intact. No scleral (unknown) (no (unknown) (unknown) Environment (units (un known) date) unknown) (unknown) (no (unknown) (unknown) Eos # (Auto) (units (u nknown) date) unknown) (unknown) (no (unknown) (unknown) Eos # (Auto) 0 (units (unknown) date) unknown) (unknown) (no (unknown) (unknown) Eos % (Auto) (units (u nknown) date) unknown) (unknown) (no (unknown) (unknown) Eos % (Auto) 0.0 (units (unknown) date) L unknown) (unknown) (no (unknown) (unknown) Estimated GFR (units ( unknown) date) unknown) (unknown) (no (unknown) (unknown) Estimated GFR 30 (units (unknown) date) L unknown) (unknown) (no (unknown) (unknown) Exam (units (unkno wn) date) unknown) (unknown) (no (unknown) (unknown) Exam Narrative: (units (unknown) date) unknown) (unknown) (no (unknown) (unknown) Exception-the (units (u nknown) date) patient is not unknown) eligible for medication reconciliation; the patient (unknown) (no (unknown) (unknown) Family + Social (units (unknown) date) History unknown) (unknown) (no (unknown) (unknown) Family History (units (unknown) date) (Reviewed 03/20/22 unknown) @ 06:52 by MATHEUS Ann) (unknown) (no (unknown) (unknown) Family history of (units (unknown) date) angioedema unknown) (unknown) (no (unknown) (unknown) Father (units (o wn) date) Hypertension unknown) (unknown) (no (unknown) (unknown) Feels Safe in (units ( unknown) date) Current Yes unknown) (unknown) (no (unknown) (unknown) GASTROINTESTINAL: (units (unknown) date) Abdomen soft, unknown) generalized abdominal pain, nondistended.? Bowel (unknown) (no (unknown) (unknown) GENERAL: [46] (units ( unknown) date) year old patient unknown) appears stated age. Well-developed patient, in (unknown) (no (unknown) (unknown) GFR>60, creatinine (units (unknown) date) 0.62. Patient's unknown) total protein 11, globulin 5.2, albumin 5.8, (unknown) (no (unknown) (unknown) Globulin (units (unkno wn) date) unknown) (unknown) (no (unknown) (unknown) Globulin 5.2 H (units (unknown) date) unknown) (unknown) (no (unknown) (unknown) Glucose (units (unkno wn) date) unknown) (unknown) (no (unknown) (unknown) Glucose 142 H (units ( unknown) date) unknown) (unknown) (no (unknown) (unknown) HEAD: Atraumatic. (units (unknown) date) Normocephalic. unknown) (unknown) (no (unknown) (unknown) Hct (units (unkno wn) date) unknown) (unknown) (no (unknown) (unknown) Hct 44.5 (units (unkno wn) date) unknown) (unknown) (no (unknown) (unknown) Hgb (units (unkno wn) date) unknown) (unknown) (no (unknown) (unknown) Hgb 15.3 (units (unkno wn) date) unknown) (unknown) (no (unknown) (unknown) History of (units (unk nown) date) Present Illness unknown) (unknown) (no (unknown) (unknown) Home Medications (units (unknown) date) and Allergies unknown) (unknown) (no (unknown) (unknown) Hx of (units (unkno wn) date) appendectomy unknown) (unknown) (no (unknown) (unknown) Hx of (units (unkno wn) date) cholecystectomy unknown) (unknown) (no (unknown) (unknown) I confirmed that (units (unknown) date) the patient's unknown) advanced care plan is present, Code status is (unknown) (no (unknown) (unknown) I have utilized (units (unknown) date) all available unknown) immediate resources to obtain, update, or review (unknown) (no (unknown) (unknown) I spent a total (units (unknown) date) of [] minutes of unknown) critical care time on this patient's care (unknown) (no (unknown) (unknown) Ketones (units (unkno wn) date) unknown) (unknown) (no (unknown) (unknown) Ketones 0.17 (units (u nknown) date) unknown) (unknown) (no (unknown) (unknown) Labs (units (unkno wn) date) unknown) (unknown) (no (unknown) (unknown) Labs: (units (unkno wn) date) unknown) (unknown) (no (unknown) (unknown) Lactate (units (unkno wn) date) unknown) (unknown) (no (unknown) (unknown) Lactate 2.2 H (units ( unknown) date) unknown) (unknown) (no (unknown) (unknown) Lymph # (Auto) (units (unknown) date) unknown) (unknown) (no (unknown) (unknown) Lymph # (Auto) (units (unknown) date) 1000 L unknown) (unknown) (no (unknown) (unknown) Lymph % (Auto) (units (unknown) date) unknown) (unknown) (no (unknown) (unknown) Lymph % (Auto) (units (unknown) date) 8.1 L unknown) (unknown) (no (unknown) (unknown) MCH (units (unkno wn) date) unknown) (unknown) (no (unknown) (unknown) MCH 31.6 (units (unkno wn) date) unknown) (unknown) (no (unknown) (unknown) MCHC (units (unkno wn) date) unknown) (unknown) (no (unknown) (unknown) MCHC 34.4 (units (unkn own) date) unknown) (unknown) (no (unknown) (unknown) MCV (units (unkno wn) date) unknown) (unknown) (no (unknown) (unknown) MCV 91.7 (units (unkno wn) date) unknown) (unknown) (no (unknown) (unknown) 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 (unknown) (no (unknown) (unknown) Marijuana use, (units (unknown) date) continuous unknown) (unknown) (no (unknown) (unknown) Medical History (units (unknown) date) (Reviewed 03/20/22 unknown) @ 06:52 by Kylee Arauz [facility]) (unknown) (no (unknown) (unknown) Meds (units (unkno wn) date) unknown) (unknown) (no (unknown) (unknown) Dameon Castro is a (units (unknown) date) 46-year-old female unknown) with history of cyclic vomiting and (unknown) (no (unknown) (unknown) Centre # (Auto) (units ( unknown) date) unknown) (unknown) (no (unknown) (unknown) Centre # (Auto) (units ( unknown) date) 1000 H unknown) (unknown) (no (unknown) (unknown) Centre % (Auto) (units ( unknown) date) unknown) (unknown) (no (unknown) (unknown) Centre % (Auto) 8.3 (units (unknown) date) unknown) (unknown) (no (unknown) (unknown) Mother Diabetes (units (unknown) date) mellitus unknown) (unknown) (no (unknown) (unknown) NECK: Trachea (units ( unknown) date) midline. Non unknown) tender (unknown) (no (unknown) (unknown) NEURO: AOx3. (units (u nknown) date) unknown) (unknown) (no (unknown) (unknown) Narrative (units (unkn own) date) unknown) (unknown) (no (unknown) (unknown) Narrative: (units (unk nown) date) unknown) (unknown) (no (unknown) (unknown) Neut # (Auto) (units ( unknown) date) unknown) (unknown) (no (unknown) (unknown) Neut # (Auto) (units ( unknown) date) [address] H unknown) (unknown) (no (unknown) (unknown) Neut % (Auto) (units ( unknown) date) unknown) (unknown) (no (unknown) (unknown) Neut % (Auto) (units ( unknown) date) 83.2 H unknown) (unknown) (no (unknown) (unknown) Objective (units (unkn own) date) unknown) (unknown) (no (unknown) (unknown) On admit patient (units (unknown) date) presents afebrile unknown) temp 98.5?, BP 135/94, HR 99, RR 18, O2 (unknown) (no (unknown) (unknown) Other Colon (units (un known) date) cancer unknown) (unknown) (no (unknown) (unknown) Oxygen Delivery (units (unknown) date) Method Room Air unknown) (unknown) (no (unknown) (unknown) Oxygen Delivery (units (unknown) date) Method Room Air unknown) (unknown) (no (unknown) (unknown) Pancreatitis (units (u nknown) date) unknown) (unknown) (no (unknown) (unknown) Patient History (units (unknown) date) unknown) (unknown) (no (unknown) (unknown) Patient: (units (unkno wn) date) Dameon Castro MR#: unknown) [id number] (unknown) (no (unknown) (unknown) Plt Count (units (unkn own) date) unknown) (unknown) (no (unknown) (unknown) Plt Count 273 (units ( unknown) date) unknown) (unknown) (no (unknown) (unknown) Potassium (units (unkn own) date) unknown) (unknown) (no (unknown) (unknown) Potassium 2.6 L* (units (unknown) date) unknown) (unknown) (no (unknown) (unknown) Provider: (units (unkn own) date) Kylee Arauz unknown) [employer]ALL[employer] 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 unknown) Breath sounds equal bilaterally. No wheezes, (unknown) (no (unknown) (unknown) Respiratory Rate (units (unknown) date) 18 unknown) (unknown) (no (unknown) (unknown) Result Diagrams: (units (unknown) date) unknown) (unknown) (no (unknown) (unknown) Review of Systems (units (unknown) date) unknown) (unknown) (no (unknown) (unknown) SARS-CoV-2 (PCR) (units (unknown) date) unknown) (unknown) (no (unknown) (unknown) SARS-CoV-2 (PCR) (units (unknown) date) Negative unknown) (unknown) (no (unknown) (unknown) SKIN: No rash or (units (unknown) date) erythema of unknown) visible areas (unknown) (no (unknown) (unknown) Safety + (units (unkno wn) date) Behavioral: unknown) (unknown) (no (unknown) (unknown) Signed By: (units (unk nown) date) unknown) (unknown) (no (unknown) (unknown) Smoking Status (units (unknown) date) Current every day unknown) smoker (unknown) (no (unknown) (unknown) Social History: (units (unknown) date) unknown) (unknown) (no (unknown) (unknown) Sodium (units (unkno wn) date) unknown) (unknown) (no (unknown) (unknown) Sodium 142 (units (unk nown) date) unknown) (unknown) (no (unknown) (unknown) Substance Use (units ( unknown) date) Type marijuana unknown) (unknown) (no (unknown) (unknown) Surgical History (units (unknown) date) (Reviewed 03/20/22 unknown) @ 06:52 by MATHEUS Ann) (unknown) (no (unknown) (unknown) Surrogate (units (unkn own) date) decision maker: unknown) (unknown) (no (unknown) (unknown) Temperature 98.5 (units (unknown) date) F unknown) (unknown) (no (unknown) (unknown) Time Patient (units (u nknown) date) Seen: 06:47 unknown) (unknown) (no (unknown) (unknown) Time Spent With (units (unknown) date) Patient unknown) (unknown) (no (unknown) (unknown) Tobacco + (units (unkn own) date) Substance use: unknown) (unknown) (no (unknown) (unknown) Total Bilirubin (units (unknown) date) unknown) (unknown) (no (unknown) (unknown) Total Bilirubin (units (unknown) date) 1.7 H unknown) (unknown) (no (unknown) (unknown) Total Protein (units ( unknown) date) unknown) (unknown) (no (unknown) (unknown) Total Protein (units ( unknown) date) 11.0 H unknown) (unknown) (no (unknown) (unknown) VBG Base Excess (units (unknown) date) unknown) (unknown) (no (unknown) (unknown) VBG Base Excess (units (unknown) date) 23.0 H unknown) (unknown) (no (unknown) (unknown) VBG HCO3 (units (unkno wn) date) unknown) (unknown) (no (unknown) (unknown) VBG HCO3 44 H (units ( unknown) date) unknown) (unknown) (no (unknown) (unknown) VBG O2 Saturation (units (unknown) date) unknown) (unknown) (no (unknown) (unknown) VBG O2 Saturation (units (unknown) date) 91 H unknown) (unknown) (no (unknown) (unknown) VBG Total CO2 (units ( unknown) date) unknown) (unknown) (no (unknown) (unknown) VBG Total CO2 46 (units (unknown) date) H unknown) (unknown) (no (unknown) (unknown) VBG pCO2 (units (unkno wn) date) unknown) (unknown) (no (unknown) (unknown) VBG pCO2 45.0 (units ( unknown) date) unknown) (unknown) (no (unknown) (unknown) VBG pH (units (unkno wn) date) unknown) (unknown) (no (unknown) (unknown) VBG pH 7.60 H (units ( unknown) date) unknown) (unknown) (no (unknown) (unknown) VBG pO2 (units (unkno wn) date) unknown) (unknown) (no (unknown) (unknown) VBG pO2 52 H (units (u nknown) date) unknown) (unknown) (no (unknown) (unknown) Vital Signs (units (un known) date) unknown) (unknown) (no (unknown) (unknown) WBC (units (unkno wn) date) unknown) (unknown) (no (unknown) (unknown) WBC 12.0 H (units (unk nown) date) unknown) (unknown) (no (unknown) (unknown) [Embedded Image (units (unknown) date) Not Available] unknown) (unknown) (no (unknown) (unknown) [METOCLOPRAMIDE] (units (unknown) date) unknown) (unknown) (no (unknown) (unknown) abdominal (units (unkno wn) date) migraines being unknown) admitted for respiratory metabolic alkalosis secondary (unknown) (no (unknown) (unknown) abdominal (units (unkn own) date) migraines presents unknown) under similar circumstances complaining of (unknown) (no (unknown) (unknown) admission (units (unkn own) date) unknown) (unknown) (no (unknown) (unknown) alcohol intake (units (unknown) date) frequency 3 or unknown) more drinks per day (unknown) (no (unknown) (unknown) alkalosis, acute, (units (unknown) date) present on unknown) admission (unknown) (no (unknown) (unknown) alkalosis- VBG is (units (unknown) date) pH 7.6, CO2 45, unknown) PO2 52, HC03 44, O2 saturation 91%, base (unknown) (no (unknown) (unknown) bowel or bladder (units (unknown) date) issues, recent unknown) illness injury or trauma. (unknown) (no (unknown) (unknown) documented and/or (units (unknown) date) surrogate decision unknown) maker is listed in the patient's medical (unknown) (no (unknown) (unknown) excess 23 patient (units (unknown) date) does have a white unknown) count of 12 with a left shift neutrophils (unknown) (no (unknown) (unknown) generalized (units (un known) date) abdominal pain and unknown) frequent vomiting over the past 2 days despite (unknown) (no (unknown) (unknown) her hands which is (units (unknown) date) not normal for unknown) her.? She denies any new medications or change (unknown) (no (unknown) (unknown) household members (units (unknown) date) spouse unknown) (unknown) (no (unknown) (unknown) icterus. No (units (un known) date) injection or unknown) drainage. (unknown) (no (unknown) (unknown) in her diet.? She (units (unknown) date) denies any recent unknown) travel. Patient denies chest pain, (unknown) (no (unknown) (unknown) lactate 2.2 (units (un known) date) patient has a gap unknown) of 26, calcium is 10.9, total bili 1.7, AST 39, (unknown) (no (unknown) (unknown) latex [LATEX] (units ( unknown) date) Allergy Unknown unknown) Verified 11/02/21 15:46 (unknown) (no (unknown) (unknown) lorazepam 0.5 mg (units (unknown) date) tablet (Ativan) unknown) 0.5 mg PO DAILY PRN nausea and 11/03/21 Rx (unknown) (no (unknown) (unknown) metoclopramide (units (unknown) date) AdvReac Unknown unknown) DYSTONIA Verified 11/02/21 15:46 (unknown) (no (unknown) (unknown) moderate (units (unkno wn) date) distress, lying on unknown) her side holding an emesis bag, clearly feeling (unknown) (no (unknown) (unknown) ondansetron 4 mg (units (unknown) date) disintegrating 4 unknown) mg PO Q8H PRN nausea and 07/28/19 08/26/21 Rx (unknown) (no (unknown) (unknown) ondansetron 8 mg (units (unknown) date) disintegrating 8 unknown) mg PO TID PRN Nausea 09/18/19 08/26/21 History (unknown) (no (unknown) (unknown) promethazine (units (u nknown) date) [PROMETHAZINE] unknown) Allergy Mild ERYTHEMA Verified 08/26/21 15:49 (unknown) (no (unknown) (unknown) recent illness, (units (unknown) date) or exposure, blood unknown) in her vomit, blood in urine blood in stool, (unknown) (no (unknown) (unknown) record. (units (unkno wn) date) unknown) (unknown) (no (unknown) (unknown) saturation 100% (units (unknown) date) on room air. unknown) Patient presents with respiratory and metabolic (unknown) (no (unknown) (unknown) shortness of (units (u nknown) date) breath, upper unknown) respiratory symptoms, fever, body aches, chills, (unknown) (no (unknown) (unknown) spray headache #1 (units (unknown) date) ea unknown) (unknown) (no (unknown) (unknown) states that over (units (unknown) date) the course of the unknown) day she is developed cramping and tingling in (unknown) (no (unknown) (unknown) sumatriptan 5 (units ( unknown) date) mg/actuation nasal unknown) 5 mg intranasal Q2-4H PRN migraine 06/04/21 0 (unknown) (no (unknown) (unknown) tablet (units (unkno wn) date) unknown) (unknown) (no (unknown) (unknown) tablet vomiting (units (unknown) date) #10 tabs unknown) (unknown) (no (unknown) (unknown) the patient's (units ( unknown) date) current unknown) medications. (unknown) (no (unknown) (unknown) the patient's (units ( unknown) date) health. unknown) (unknown) (no (unknown) (unknown) the use of her (units (unknown) date) home Zofran and unknown) suppository.? She has terrible appetite and (unknown) (no (unknown) (unknown) today; this time (units (unknown) date) is exclusive of unknown) procedural time. (unknown) (no (unknown) (unknown) unwell (units (unkno wn) date) unknown) (unknown) (no (unknown) (unknown) vomiting with (units ( unknown) date) respiratory unknown) metabolic alkalosis, SERGEY and hypokalemia. (unknown) (no (unknown) (unknown) without erythema, (units (unknown) date) tonsillar unknown) hypertrophy or exudate. Airway patent. Result panel 20 (unknown) (no date) (unknown) (unknown) < 10 mg/dL (unkn own) (unknown) (no date) (unknown) (unknown) 0.13 ng/mL (unkn own) Result panel 21 (unknown) (no (unknown) (unknown) (no value) (units (unk nown) date) unknown) (unknown) (no (unknown) (unknown) (no value) (units (unk nown) date) unknown) (unknown) (no (unknown) (unknown) Date of Service: (units (unknown) date) 03/20/22 unknown) (unknown) (no (unknown) (unknown) (no value) (units (unk nown) date) unknown) (unknown) (no (unknown) (unknown) - (units (unkno wn) date) unknown) (unknown) (no (unknown) (unknown) 03/20/22 04:40 (units (unknown) date) unknown) (unknown) (no (unknown) (unknown) ABLE TO (units (unkno wn) date) unknown) (unknown) (no (unknown) (unknown) Allergies (units (unkn own) date) unknown) (unknown) (no (unknown) (unknown) History + (units (unkn own) date) Physical Report unknown) (unknown) (no (unknown) (unknown) Home Medications (units (unknown) date) unknown) (unknown) (no (unknown) (unknown) [facility] (units (unknown) date) [address] unknown) [place] [address] (unknown) (no (unknown) (unknown) Laboratory (units (unk nown) date) Results - last unknown) hr (unknown) (no (unknown) (unknown) PT STATES (units (unkn own) date) unknown) (unknown) (no (unknown) (unknown) [facility] (units (unkno wn) date) unknown) (unknown) (no (unknown) (unknown) TO IV SITE (units (unk nown) date) unknown) (unknown) (no (unknown) (unknown) (no value) (units (unk nown) date) unknown) (unknown) (no (unknown) (unknown) 04:40 04:40 04:40 (units (unknown) date) unknown) (unknown) (no (unknown) (unknown) 05:30 05:44 05:45 (units (unknown) date) unknown) (unknown) (no (unknown) (unknown) 03/20/22 03/20/22 (units (unknown) date) 03/20/22 unknown) (unknown) (no (unknown) (unknown) 03/20/22 (units (unkno wn) date) unknown) (unknown) (no (unknown) (unknown) Medication (units (unk nown) date) Instructions unknown) Recorded Confirmed Type (unknown) (no (unknown) (unknown) documented. (units (un known) date) unknown) (unknown) (no (unknown) (unknown) is in an emergent (units (unknown) date) medical situation unknown) were delaying treatment would jeopardize (unknown) (no (unknown) (unknown) rales, or (units (unkn own) date) rhonchi.? unknown) (unknown) (no (unknown) (unknown) sounds present in (units (unknown) date) all 4 quadrants unknown) (unknown) (no (unknown) (unknown) to cyclic (units (unkn own) date) vomiting, unknown) resulting in SERGEY and hypokalemia. (unknown) (no (unknown) (unknown) vomiting #10 tabs (units (unknown) date) unknown) (unknown) (no (unknown) (unknown) (past 8 hours): (units (unknown) date) unknown) (unknown) (no (unknown) (unknown) 04:13 (units (unkno wn) date) unknown) (unknown) (no (unknown) (unknown) 1. Cyclic (units (unkn own) date) vomiting, unknown) resulting in respiratory metabolic and respiratory (unknown) (no (unknown) (unknown) 08/26/21 Rx (units (unk nown) date) unknown) (unknown) (no (unknown) (unknown) 10,000, monitor (units (unknown) date) feels 1000. unknown) Patient has SERGEY chloride 83, hypokalemia potassium (unknown) (no (unknown) (unknown) 2. SERGEY as a (units (un known) date) result of cyclic unknown) vomiting, with leukocytosis, acute, present on (unknown) (no (unknown) (unknown) 2.6, bicarb 33, (units (unknown) date) creatinine 1.99, unknown) glucose 142, GFR of 30. 11/03/2021 patient's (unknown) (no (unknown) (unknown) [id number] (units (unkno wn) date) unknown) (unknown) (no (unknown) (unknown) 3. Hypokalemia, (units (unknown) date) acute, present on unknown) admission likely secondary to cyclic vomiting (unknown) (no (unknown) (unknown) ALT (units (unkno wn) date) unknown) (unknown) (no (unknown) (unknown) ALT 36 H (units (unkno wn) date) unknown) (unknown) (no (unknown) (unknown) ALT 36, ketones (units (unknown) date) are negative. unknown) Patient is admitted for cyclic nausea and (unknown) (no (unknown) (unknown) AST (units (unkno wn) date) unknown) (unknown) (no (unknown) (unknown) AST 39 H (units (unkno wn) date) unknown) (unknown) (no (unknown) (unknown) Abscess (units (unkno wn) date) unknown) (unknown) (no (unknown) (unknown) Age/Sex: 46 / F (units (unknown) date) unknown) (unknown) (no (unknown) (unknown) Albumin (units (unkno wn) date) unknown) (unknown) (no (unknown) (unknown) Albumin 5.8 H (units ( unknown) date) unknown) (unknown) (no (unknown) (unknown) Albumin/Globulin (units (unknown) date) Ratio unknown) (unknown) (no (unknown) (unknown) Albumin/Globulin (units (unknown) date) Ratio 1.1 unknown) (unknown) (no (unknown) (unknown) Alkaline (units (unkno wn) date) Phosphatase unknown) (unknown) (no (unknown) (unknown) Alkaline (units (unkno wn) date) Phosphatase 87 unknown) (unknown) (no (unknown) (unknown) All 12 point (units (un known) date) systems reviewed unknown) with the patient and are negative except otherwise (unknown) (no (unknown) (unknown) Allergy/AdvReac (units (unknown) date) Type Severity unknown) Reaction Status Date / Time (unknown) (no (unknown) (unknown) Assessment + Plan (units (unknown) date) unknown) (unknown) (no (unknown) (unknown) Assessment + Plan (units (unknown) date) narrative: unknown) (unknown) (no (unknown) (unknown) BACK: Nontender (units (unknown) date) without deformity unknown) or crepitance. No flank tenderness. (unknown) (no (unknown) (unknown) BUN (units (unkno wn) date) unknown) (unknown) (no (unknown) (unknown) BUN 22 H (units (unkno wn) date) unknown) (unknown) (no (unknown) (unknown) BUN/Creatinine (units (unknown) date) Ratio unknown) (unknown) (no (unknown) (unknown) BUN/Creatinine (units (unknown) date) Ratio 11.1 unknown) (unknown) (no (unknown) (unknown) Baso # (Auto) (units ( unknown) date) unknown) (unknown) (no (unknown) (unknown) Baso # (Auto) 0 (units (unknown) date) unknown) (unknown) (no (unknown) (unknown) Baso % (Auto) (units ( unknown) date) unknown) (unknown) (no (unknown) (unknown) Baso % (Auto) 0.4 (units (unknown) date) unknown) (unknown) (no (unknown) (unknown) Blood Pressure (units (unknown) date) 135/94 H unknown) (unknown) (no (unknown) (unknown) CARDIOVASCULAR: (units (unknown) date) Regular rate and unknown) rhythm without murmurs, gallops, or rubs. (unknown) (no (unknown) (unknown) COVID PCR: (units (unk nown) date) unknown) (unknown) (no (unknown) (unknown) COVID (units (unkno wn) date) vaccination: unknown) (unknown) (no (unknown) (unknown) Calcium (units (unkno wn) date) unknown) (unknown) (no (unknown) (unknown) Calcium 10.9 H (units (unknown) date) unknown) (unknown) (no (unknown) (unknown) Carbon Dioxide (units (unknown) date) unknown) (unknown) (no (unknown) (unknown) Carbon Dioxide 33 (units (unknown) date) H unknown) (unknown) (no (unknown) (unknown) Chief complaint: (units (unknown) date) Vomiting, SOB unknown) (unknown) (no (unknown) (unknown) Chloride (units (unkno wn) date) unknown) (unknown) (no (unknown) (unknown) Chloride 83 L (units ( unknown) date) unknown) (unknown) (no (unknown) (unknown) Chronic abdominal (units (unknown) date) pain unknown) (unknown) (no (unknown) (unknown) Code status: (units (u nknown) date) unknown) (unknown) (no (unknown) (unknown) Creatinine (units (unk nown) date) unknown) (unknown) (no (unknown) (unknown) Creatinine 1.99 H (units (unknown) date) unknown) (unknown) (no (unknown) (unknown) Critical Care (units ( unknown) date) time: unknown) (unknown) (no (unknown) (unknown) Cyclic vomiting (units (unknown) date) syndrome unknown) (unknown) (no (unknown) (unknown) : 1975 (units (unknown) date) Acct:[id number] unknown) (unknown) (no (unknown) (unknown) DVT/VTE (units (unkno wn) date) prophylaxis: unknown) (unknown) (no (unknown) (unknown) Date Patient (units (u nknown) date) Seen: 03/20/22 unknown) (unknown) (no (unknown) (unknown) Daughter (units (unkno wn) date) Angio-edema unknown) (unknown) (no (unknown) (unknown) Disposition: (units (u nknown) date) unknown) (unknown) (no (unknown) (unknown) ENT:? Dry mucous (units (unknown) date) membranes Nose unknown) without bleeding, purulent drainage. Throat (unknown) (no (unknown) (unknown) EXTREMITIES: No (units (unknown) date) edema or joint unknown) tenderness. (unknown) (no (unknown) (unknown) EYES: Pupils (units (u nknown) date) equal round and unknown) reactive. Extraocular motions intact. No scleral (unknown) (no (unknown) (unknown) Environment (units (un known) date) unknown) (unknown) (no (unknown) (unknown) Eos # (Auto) (units (u nknown) date) unknown) (unknown) (no (unknown) (unknown) Eos # (Auto) 0 (units (unknown) date) unknown) (unknown) (no (unknown) (unknown) Eos % (Auto) (units (u nknown) date) unknown) (unknown) (no (unknown) (unknown) Eos % (Auto) 0.0 (units (unknown) date) L unknown) (unknown) (no (unknown) (unknown) Estimated GFR (units ( unknown) date) unknown) (unknown) (no (unknown) (unknown) Estimated GFR 30 (units (unknown) date) L unknown) (unknown) (no (unknown) (unknown) Exam (units (unkno wn) date) unknown) (unknown) (no (unknown) (unknown) Exam Narrative: (units (unknown) date) unknown) (unknown) (no (unknown) (unknown) Exception-the (units (u nknown) date) patient is not unknown) eligible for medication reconciliation; the patient (unknown) (no (unknown) (unknown) Family + Social (units (unknown) date) History unknown) (unknown) (no (unknown) (unknown) Family History (units (unknown) date) (Reviewed 03/20/22 unknown) @ 06:52 by MATHEUS Ann) (unknown) (no (unknown) (unknown) Family history of (units (unknown) date) angioedema unknown) (unknown) (no (unknown) (unknown) Father (units (unkno wn) date) Hypertension unknown) (unknown) (no (unknown) (unknown) Feels Safe in (units ( unknown) date) Current Yes unknown) (unknown) (no (unknown) (unknown) GASTROINTESTINAL: (units (unknown) date) Abdomen soft, unknown) generalized abdominal pain, nondistended.? Bowel (unknown) (no (unknown) (unknown) GENERAL: [46] (units ( unknown) date) year old patient unknown) appears stated age. Well-developed patient, in (unknown) (no (unknown) (unknown) GFR>60, creatinine (units (unknown) date) 0.62. Patient's unknown) total protein 11, globulin 5.2, albumin 5.8, (unknown) (no (unknown) (unknown) Globulin (units (unkno wn) date) unknown) (unknown) (no (unknown) (unknown) Globulin 5.2 H (units (unknown) date) unknown) (unknown) (no (unknown) (unknown) Glucose (units (unkno wn) date) unknown) (unknown) (no (unknown) (unknown) Glucose 142 H (units ( unknown) date) unknown) (unknown) (no (unknown) (unknown) HEAD: Atraumatic. (units (unknown) date) Normocephalic. unknown) (unknown) (no (unknown) (unknown) Hct (units (unkno wn) date) unknown) (unknown) (no (unknown) (unknown) Hct 44.5 (units (unkno wn) date) unknown) (unknown) (no (unknown) (unknown) Hgb (units (unkno wn) date) unknown) (unknown) (no (unknown) (unknown) Hgb 15.3 (units (unkno wn) date) unknown) (unknown) (no (unknown) (unknown) History of (units (unk nown) date) Present Illness unknown) (unknown) (no (unknown) (unknown) Home Medications (units (unknown) date) and Allergies unknown) (unknown) (no (unknown) (unknown) Hx of (units (unkno wn) date) appendectomy unknown) (unknown) (no (unknown) (unknown) Hx of (units (unkno wn) date) cholecystectomy unknown) (unknown) (no (unknown) (unknown) I confirmed that (units (unknown) date) the patient's unknown) advanced care plan is present, Code status is (unknown) (no (unknown) (unknown) I have utilized (units (unknown) date) all available unknown) immediate resources to obtain, update, or review (unknown) (no (unknown) (unknown) I spent a total (units (unknown) date) of [] minutes of unknown) critical care time on this patient's care (unknown) (no (unknown) (unknown) Ketones (units (unkno wn) date) unknown) (unknown) (no (unknown) (unknown) Ketones 0.17 (units (u nknown) date) unknown) (unknown) (no (unknown) (unknown) Labs (units (unkno wn) date) unknown) (unknown) (no (unknown) (unknown) Labs: (units (unkno wn) date) unknown) (unknown) (no (unknown) (unknown) Lactate (units (unkno wn) date) unknown) (unknown) (no (unknown) (unknown) Lactate 2.2 H (units ( unknown) date) unknown) (unknown) (no (unknown) (unknown) Lymph # (Auto) (units (unknown) date) unknown) (unknown) (no (unknown) (unknown) Lymph # (Auto) (units (unknown) date) 1000 L unknown) (unknown) (no (unknown) (unknown) Lymph % (Auto) (units (unknown) date) unknown) (unknown) (no (unknown) (unknown) Lymph % (Auto) (units (unknown) date) 8.1 L unknown) (unknown) (no (unknown) (unknown) MCH (units (unkno wn) date) unknown) (unknown) (no (unknown) (unknown) MCH 31.6 (units (unkno wn) date) unknown) (unknown) (no (unknown) (unknown) MCHC (units (unkno wn) date) unknown) (unknown) (no (unknown) (unknown) MCHC 34.4 (units (unkn own) date) unknown) (unknown) (no (unknown) (unknown) MCV (units (unkno wn) date) unknown) (unknown) (no (unknown) (unknown) MCV 91.7 (units (unkno wn) date) unknown) (unknown) (no (unknown) (unknown) 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 (unknown) (no (unknown) (unknown) Marijuana use, (units (unknown) date) continuous unknown) (unknown) (no (unknown) (unknown) Medical History (units (unknown) date) (Reviewed 03/20/22 unknown) @ 06:52 by Kylee Arauz [facility]) (unknown) (no (unknown) (unknown) Meds (units (unkno wn) date) unknown) (unknown) (no (unknown) (unknown) Dameon Castro is a (units (unknown) date) 46-year-old female unknown) with history of cyclic vomiting and (unknown) (no (unknown) (unknown) Centre # (Auto) (units ( unknown) date) unknown) (unknown) (no (unknown) (unknown) Centre # (Auto) (units ( unknown) date) 1000 H unknown) (unknown) (no (unknown) (unknown) Centre % (Auto) (units ( unknown) date) unknown) (unknown) (no (unknown) (unknown) Centre % (Auto) 8.3 (units (unknown) date) unknown) (unknown) (no (unknown) (unknown) Mother Diabetes (units (unknown) date) mellitus unknown) (unknown) (no (unknown) (unknown) NECK: Trachea (units ( unknown) date) midline. Non unknown) tender (unknown) (no (unknown) (unknown) NEURO: AOx3. (units (u nknown) date) unknown) (unknown) (no (unknown) (unknown) Narrative (units (unkn own) date) unknown) (unknown) (no (unknown) (unknown) Narrative: (units (unk nown) date) unknown) (unknown) (no (unknown) (unknown) Neut # (Auto) (units ( unknown) date) unknown) (unknown) (no (unknown) (unknown) Neut # (Auto) (units ( unknown) date) 41319 H unknown) (unknown) (no (unknown) (unknown) Neut % (Auto) (units ( unknown) date) unknown) (unknown) (no (unknown) (unknown) Neut % (Auto) (units ( unknown) date) 83.2 H unknown) (unknown) (no (unknown) (unknown) Objective (units (unkn own) date) unknown) (unknown) (no (unknown) (unknown) On admit patient (units (unknown) date) presents afebrile unknown) temp 98.5?, BP 135/94, HR 99, RR 18, O2 (unknown) (no (unknown) (unknown) Other Colon (units (un known) date) cancer unknown) (unknown) (no (unknown) (unknown) Oxygen Delivery (units (unknown) date) Method Room Air unknown) (unknown) (no (unknown) (unknown) Oxygen Delivery (units (unknown) date) Method Room Air unknown) (unknown) (no (unknown) (unknown) Pancreatitis (units (u nknown) date) unknown) (unknown) (no (unknown) (unknown) Patient History (units (unknown) date) unknown) (unknown) (no (unknown) (unknown) Patient: (units (unkno wn) date) Dameon Castro MR#: unknown) [id number] (unknown) (no (unknown) (unknown) Plt Count (units (unkn own) date) unknown) (unknown) (no (unknown) (unknown) Plt Count 273 (units ( unknown) date) unknown) (unknown) (no (unknown) (unknown) Potassium (units (unkn own) date) unknown) (unknown) (no (unknown) (unknown) Potassium 2.6 L* (units (unknown) date) unknown) (unknown) (no (unknown) (unknown) Provider: (units (unkn own) date) Kylee Arauz unknown) [employer] 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 unknown) Breath sounds equal bilaterally. No wheezes, (unknown) (no (unknown) (unknown) Respiratory Rate (units (unknown) date) 18 unknown) (unknown) (no (unknown) (unknown) Result Diagrams: (units (unknown) date) unknown) (unknown) (no (unknown) (unknown) Review of Systems (units (unknown) date) unknown) (unknown) (no (unknown) (unknown) SARS-CoV-2 (PCR) (units (unknown) date) unknown) (unknown) (no (unknown) (unknown) SARS-CoV-2 (PCR) (units (unknown) date) Negative unknown) (unknown) (no (unknown) (unknown) SKIN: No rash or (units (unknown) date) erythema of unknown) visible areas (unknown) (no (unknown) (unknown) Safety + (units (unkno wn) date) Behavioral: unknown) (unknown) (no (unknown) (unknown) Signed By: (units (unk nown) date) unknown) (unknown) (no (unknown) (unknown) Smoking Status (units (unknown) date) Current every day unknown) smoker (unknown) (no (unknown) (unknown) Social History: (units (unknown) date) unknown) (unknown) (no (unknown) (unknown) Sodium (units (unkno wn) date) unknown) (unknown) (no (unknown) (unknown) Sodium 142 (units (unk nown) date) unknown) (unknown) (no (unknown) (unknown) Substance Use (units ( unknown) date) Type marijuana unknown) (unknown) (no (unknown) (unknown) Surgical History (units (unknown) date) (Reviewed 03/20/22 unknown) @ 06:52 by MATHEUS Ann) (unknown) (no (unknown) (unknown) Surrogate (units (unkn own) date) decision maker: unknown) (unknown) (no (unknown) (unknown) Temperature 98.5 (units (unknown) date) F unknown) (unknown) (no (unknown) (unknown) Time Patient (units (u nknown) date) Seen: 06:47 unknown) (unknown) (no (unknown) (unknown) Time Spent With (units (unknown) date) Patient unknown) (unknown) (no (unknown) (unknown) Tobacco + (units (unkn own) date) Substance use: unknown) (unknown) (no (unknown) (unknown) Total Bilirubin (units (unknown) date) unknown) (unknown) (no (unknown) (unknown) Total Bilirubin (units (unknown) date) 1.7 H unknown) (unknown) (no (unknown) (unknown) Total Protein (units ( unknown) date) unknown) (unknown) (no (unknown) (unknown) Total Protein (units ( unknown) date) 11.0 H unknown) (unknown) (no (unknown) (unknown) VBG Base Excess (units (unknown) date) unknown) (unknown) (no (unknown) (unknown) VBG Base Excess (units (unknown) date) 23.0 H unknown) (unknown) (no (unknown) (unknown) VBG HCO3 (units (unkno wn) date) unknown) (unknown) (no (unknown) (unknown) VBG HCO3 44 H (units ( unknown) date) unknown) (unknown) (no (unknown) (unknown) VBG O2 Saturation (units (unknown) date) unknown) (unknown) (no (unknown) (unknown) VBG O2 Saturation (units (unknown) date) 91 H unknown) (unknown) (no (unknown) (unknown) VBG Total CO2 (units ( unknown) date) unknown) (unknown) (no (unknown) (unknown) VBG Total CO2 46 (units (unknown) date) H unknown) (unknown) (no (unknown) (unknown) VBG pCO2 (units (unkno wn) date) unknown) (unknown) (no (unknown) (unknown) VBG pCO2 45.0 (units ( unknown) date) unknown) (unknown) (no (unknown) (unknown) VBG pH (units (unkno wn) date) unknown) (unknown) (no (unknown) (unknown) VBG pH 7.60 H (units ( unknown) date) unknown) (unknown) (no (unknown) (unknown) VBG pO2 (units (unkno wn) date) unknown) (unknown) (no (unknown) (unknown) VBG pO2 52 H (units (u nknown) date) unknown) (unknown) (no (unknown) (unknown) Vital Signs (units (un known) date) unknown) (unknown) (no (unknown) (unknown) WBC (units (unkno wn) date) unknown) (unknown) (no (unknown) (unknown) WBC 12.0 H (units (unk nown) date) unknown) (unknown) (no (unknown) (unknown) [Embedded Image (units (unknown) date) Not Available] unknown) (unknown) (no (unknown) (unknown) [METOCLOPRAMIDE] (units (unknown) date) unknown) (unknown) (no (unknown) (unknown) abdominal (units (unkno wn) date) migraines being unknown) admitted for respiratory metabolic alkalosis secondary (unknown) (no (unknown) (unknown) abdominal (units (unkn own) date) migraines presents unknown) under similar circumstances complaining of (unknown) (no (unknown) (unknown) admission (units (unkn own) date) unknown) (unknown) (no (unknown) (unknown) alcohol intake (units (unknown) date) frequency 3 or unknown) more drinks per day (unknown) (no (unknown) (unknown) alkalosis, acute, (units (unknown) date) present on unknown) admission (unknown) (no (unknown) (unknown) alkalosis- VBG is (units (unknown) date) pH 7.6, CO2 45, unknown) PO2 52, HC03 44, O2 saturation 91%, base (unknown) (no (unknown) (unknown) bowel or bladder (units (unknown) date) issues, recent unknown) illness injury or trauma. (unknown) (no (unknown) (unknown) documented and/or (units (unknown) date) surrogate decision unknown) maker is listed in the patient's medical (unknown) (no (unknown) (unknown) excess 23 patient (units (unknown) date) does have a white unknown) count of 12 with a left shift neutrophils (unknown) (no (unknown) (unknown) generalized (units (un known) date) abdominal pain and unknown) frequent vomiting over the past 2 days despite (unknown) (no (unknown) (unknown) her hands which is (units (unknown) date) not normal for unknown) her.? She denies any new medications or change (unknown) (no (unknown) (unknown) household members (units (unknown) date) spouse unknown) (unknown) (no (unknown) (unknown) icterus. No (units (un known) date) injection or unknown) drainage. (unknown) (no (unknown) (unknown) in her diet.? She (units (unknown) date) denies any recent unknown) travel. Patient denies chest pain, (unknown) (no (unknown) (unknown) lactate 2.2 (units (un known) date) patient has a gap unknown) of 26, calcium is 10.9, total bili 1.7, AST 39, (unknown) (no (unknown) (unknown) latex [LATEX] (units ( unknown) date) Allergy Unknown unknown) Verified 11/02/21 15:46 (unknown) (no (unknown) (unknown) lorazepam 0.5 mg (units (unknown) date) tablet (Ativan) unknown) 0.5 mg PO DAILY PRN nausea and 11/03/21 Rx (unknown) (no (unknown) (unknown) metoclopramide (units (unknown) date) AdvReac Unknown unknown) DYSTONIA Verified 11/02/21 15:46 (unknown) (no (unknown) (unknown) moderate (units (unkno wn) date) distress, lying on unknown) her side holding an emesis bag, clearly feeling (unknown) (no (unknown) (unknown) ondansetron 4 mg (units (unknown) date) disintegrating 4 unknown) mg PO Q8H PRN nausea and 07/28/19 08/26/21 Rx (unknown) (no (unknown) (unknown) ondansetron 8 mg (units (unknown) date) disintegrating 8 unknown) mg PO TID PRN Nausea 09/18/19 08/26/21 History (unknown) (no (unknown) (unknown) promethazine (units (u nknown) date) [PROMETHAZINE] unknown) Allergy Mild ERYTHEMA Verified 08/26/21 15:49 (unknown) (no (unknown) (unknown) recent illness, (units (unknown) date) or exposure, blood unknown) in her vomit, blood in urine blood in stool, (unknown) (no (unknown) (unknown) record. (units (unkno wn) date) unknown) (unknown) (no (unknown) (unknown) saturation 100% (units (unknown) date) on room air. unknown) Patient presents with respiratory and metabolic (unknown) (no (unknown) (unknown) shortness of (units (u nknown) date) breath, upper unknown) respiratory symptoms, fever, body aches, chills, (unknown) (no (unknown) (unknown) spray headache #1 (units (unknown) date) ea unknown) (unknown) (no (unknown) (unknown) states that over (units (unknown) date) the course of the unknown) day she is developed cramping and tingling in (unknown) (no (unknown) (unknown) sumatriptan 5 (units ( unknown) date) mg/actuation nasal unknown) 5 mg intranasal Q2-4H PRN migraine 06/04/21 0 (unknown) (no (unknown) (unknown) tablet (units (unkno wn) date) unknown) (unknown) (no (unknown) (unknown) tablet vomiting (units (unknown) date) #10 tabs unknown) (unknown) (no (unknown) (unknown) the patient's (units ( unknown) date) current unknown) medications. (unknown) (no (unknown) (unknown) the patient's (units ( unknown) date) health. unknown) (unknown) (no (unknown) (unknown) the use of her (units (unknown) date) home Zofran and unknown) suppository.? She has terrible appetite and (unknown) (no (unknown) (unknown) today; this time (units (unknown) date) is exclusive of unknown) procedural time. (unknown) (no (unknown) (unknown) unwell (units (unkno wn) date) unknown) (unknown) (no (unknown) (unknown) vomiting with (units ( unknown) date) respiratory unknown) metabolic alkalosis, SERGEY and hypokalemia. (unknown) (no (unknown) (unknown) without erythema, (units (unknown) date) tonsillar unknown) hypertrophy or exudate. Airway patent. Result panel 22 (unknown) (no (unknown) (unknown) (no value) (units (unk nown) date) unknown) (unknown) (no (unknown) (unknown) (no value) (units (unk nown) date) unknown) (unknown) (no (unknown) (unknown) Date of Service: (units (unknown) date) 03/20/22 unknown) (unknown) (no (unknown) (unknown) (no value) (units (unk nown) date) unknown) (unknown) (no (unknown) (unknown) - (units (unkno wn) date) unknown) (unknown) (no (unknown) (unknown) 03/20/22 04:40 (units (unknown) date) unknown) (unknown) (no (unknown) (unknown) ABLE TO (units (unkno wn) date) unknown) (unknown) (no (unknown) (unknown) Allergies (units (unkn own) date) unknown) (unknown) (no (unknown) (unknown) History + (units (unkn own) date) Physical Report unknown) (unknown) (no (unknown) (unknown) Home Medications (units (unknown) date) unknown) (unknown) (no (unknown) (unknown) [facility] (units (unknown) date) [address] unknown) [place] [address] (unknown) (no (unknown) (unknown) Laboratory (units (unk nown) date) Results - last 24 unknown) hr (unknown) (no (unknown) (unknown) PT STATES (units (unkn own) date) unknown) (unknown) (no (unknown) (unknown) [facility] (units (unkno wn) date) unknown) (unknown) (no (unknown) (unknown) TO IV SITE (units (unk nown) date) unknown) (unknown) (no (unknown) (unknown) (no value) (units (unk nown) date) unknown) (unknown) (no (unknown) (unknown) 04:40 04:40 04:40 (units (unknown) date) unknown) (unknown) (no (unknown) (unknown) 05:30 05:44 05:45 (units (unknown) date) unknown) (unknown) (no (unknown) (unknown) 03/20/22 03/20/22 (units (unknown) date) 03/20/22 unknown) (unknown) (no (unknown) (unknown) 03/20/22 (units (unkno wn) date) unknown) (unknown) (no (unknown) (unknown) Medication (units (unk nown) date) Instructions unknown) Recorded Confirmed Type (unknown) (no (unknown) (unknown) documented. (units (un known) date) unknown) (unknown) (no (unknown) (unknown) is in an emergent (units (unknown) date) medical situation unknown) were delaying treatment would jeopardize (unknown) (no (unknown) (unknown) rales, or (units (unkn own) date) rhonchi.? unknown) (unknown) (no (unknown) (unknown) sounds present in (units (unknown) date) all 4 quadrants unknown) (unknown) (no (unknown) (unknown) to cyclic (units (unkn own) date) vomiting, unknown) resulting in SERGEY and hypokalemia. (unknown) (no (unknown) (unknown) vomiting #10 tabs (units (unknown) date) unknown) (unknown) (no (unknown) (unknown) (past 8 hours): (units (unknown) date) unknown) (unknown) (no (unknown) (unknown) -11/03/2021 GFR> (units (unknown) date) 60, creatinine unknown) 0.62-today creatinine 1.99 GFR 30 (unknown) (no (unknown) (unknown) -LR at 100 cc HR (units (unknown) date) for hydration unknown) (unknown) (no (unknown) (unknown) -Zofran Haldol (units (unknown) date) and Ativan to unknown) control vomiting (unknown) (no (unknown) (unknown) -abuse BC of 12 (units (unknown) date) neutrophils unknown) 10,000, mono feels 1000, lactate 2.2, ordered chest (unknown) (no (unknown) (unknown) -and has for (units (u nknown) date) hydration, ordered unknown) Mag, BMP lipase urine tox (unknown) (no (unknown) (unknown) -he etiology (units (u nknown) date) unknown suspected unknown) 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 Cyclic (units (unkn own) date) vomiting, unknown) resulting in respiratory metabolic and respiratory (unknown) (no (unknown) (unknown) 08/26/21 Rx (units (unk nown) date) unknown) (unknown) (no (unknown) (unknown) 10,000, monitor (units (unknown) date) feels 1000. unknown) Patient has SERGEY chloride 83, hypokalemia potassium (unknown) (no (unknown) (unknown) 2. SERGEY as a (units (un known) date) result of cyclic unknown) vomiting, with leukocytosis, acute, present on (unknown) (no (unknown) (unknown) 2.6, bicarb 33, (units (unknown) date) creatinine 1.99, unknown) glucose 142, GFR of 30. 11/03/2021 patient's (unknown) (no (unknown) (unknown) [id number] (units (unkno wn) date) unknown) (unknown) (no (unknown) (unknown) 3. Hypokalemia, (units (unknown) date) acute, present on unknown) admission likely secondary to cyclic vomiting (unknown) (no (unknown) (unknown) ALT (units (unkno wn) date) unknown) (unknown) (no (unknown) (unknown) ALT 36 H (units (unkno wn) date) unknown) (unknown) (no (unknown) (unknown) ALT 36, ketones (units (unknown) date) are negative. unknown) Patient is admitted for cyclic nausea and (unknown) (no (unknown) (unknown) AST (units (unkno wn) date) unknown) (unknown) (no (unknown) (unknown) AST 39 H (units (unkno wn) date) unknown) (unknown) (no (unknown) (unknown) Abscess (units (unkno wn) date) unknown) (unknown) (no (unknown) (unknown) Age/Sex: 46 / F (units (unknown) date) unknown) (unknown) (no (unknown) (unknown) Albumin (units (unkno wn) date) unknown) (unknown) (no (unknown) (unknown) Albumin 5.8 H (units ( unknown) date) unknown) (unknown) (no (unknown) (unknown) Albumin/Globulin (units (unknown) date) Ratio unknown) (unknown) (no (unknown) (unknown) Albumin/Globulin (units (unknown) date) Ratio 1.1 unknown) (unknown) (no (unknown) (unknown) Alkaline (units (o wn) date) Phosphatase unknown) (unknown) (no (unknown) (unknown) Alkaline (units (unkno wn) date) Phosphatase 87 unknown) (unknown) (no (unknown) (unknown) All 12 point (units (un known) date) systems reviewed unknown) with the patient and are negative except otherwise (unknown) (no (unknown) (unknown) Allergy/AdvReac (units (unknown) date) Type Severity unknown) Reaction Status Date / Time (unknown) (no (unknown) (unknown) Assessment + Plan (units (unknown) date) unknown) (unknown) (no (unknown) (unknown) Assessment + Plan (units (unknown) date) narrative: unknown) (unknown) (no (unknown) (unknown) BACK: Nontender (units (unknown) date) without deformity unknown) or crepitance. No flank tenderness. (unknown) (no (unknown) (unknown) BUN (units (unkno wn) date) unknown) (unknown) (no (unknown) (unknown) BUN 22 H (units (unkno wn) date) unknown) (unknown) (no (unknown) (unknown) BUN/Creatinine (units (unknown) date) Ratio unknown) (unknown) (no (unknown) (unknown) BUN/Creatinine (units (unknown) date) Ratio 11.1 unknown) (unknown) (no (unknown) (unknown) Baso # (Auto) (units ( unknown) date) unknown) (unknown) (no (unknown) (unknown) Baso # (Auto) 0 (units (unknown) date) unknown) (unknown) (no (unknown) (unknown) Baso % (Auto) (units ( unknown) date) unknown) (unknown) (no (unknown) (unknown) Baso % (Auto) 0.4 (units (unknown) date) unknown) (unknown) (no (unknown) (unknown) Blood Pressure (units (unknown) date) 135/94 H unknown) (unknown) (no (unknown) (unknown) CARDIOVASCULAR: (units (unknown) date) Regular rate and unknown) rhythm without murmurs, gallops, or rubs. (unknown) (no (unknown) (unknown) COVID PCR: (units (unk nown) date) unknown) (unknown) (no (unknown) (unknown) COVID (units (unkno wn) date) vaccination: unknown) (unknown) (no (unknown) (unknown) Calcium (units (unkno wn) date) unknown) (unknown) (no (unknown) (unknown) Calcium 10.9 H (units (unknown) date) unknown) (unknown) (no (unknown) (unknown) Carbon Dioxide (units (unknown) date) unknown) (unknown) (no (unknown) (unknown) Carbon Dioxide 33 (units (unknown) date) H unknown) (unknown) (no (unknown) (unknown) Chief complaint: (units (unknown) date) Vomiting, SOB unknown) (unknown) (no (unknown) (unknown) Chloride (units (unkno wn) date) unknown) (unknown) (no (unknown) (unknown) Chloride 83 L (units ( unknown) date) unknown) (unknown) (no (unknown) (unknown) Chronic abdominal (units (unknown) date) pain unknown) (unknown) (no (unknown) (unknown) Code status: Full (units (unknown) date) unknown) (unknown) (no (unknown) (unknown) Creatinine (units (unk nown) date) unknown) (unknown) (no (unknown) (unknown) Creatinine 1.99 H (units (unknown) date) unknown) (unknown) (no (unknown) (unknown) Critical Care (units ( unknown) date) time: unknown) (unknown) (no (unknown) (unknown) Cyclic vomiting (units (unknown) date) syndrome unknown) (unknown) (no (unknown) (unknown) : 1975 (units (unknown) date) Acct:[id number] unknown) (unknown) (no (unknown) (unknown) DVT/VTE (units (unkno wn) date) prophylaxis: unknown) (unknown) (no (unknown) (unknown) Date Patient (units (u nknown) date) Seen: 03/20/22 unknown) (unknown) (no (unknown) (unknown) Daughter (units (unkno wn) date) Angio-edema unknown) (unknown) (no (unknown) (unknown) Disposition: (units (u nknown) date) unknown) (unknown) (no (unknown) (unknown) ENT:? Dry mucous (units (unknown) date) membranes Nose unknown) without bleeding, purulent drainage. Throat (unknown) (no (unknown) (unknown) EXTREMITIES: No (units (unknown) date) edema or joint unknown) tenderness. (unknown) (no (unknown) (unknown) EYES: Pupils (units (u nknown) date) equal round and unknown) reactive. Extraocular motions intact. No scleral (unknown) (no (unknown) (unknown) Environment (units (un known) date) unknown) (unknown) (no (unknown) (unknown) Eos # (Auto) (units (u nknown) date) unknown) (unknown) (no (unknown) (unknown) Eos # (Auto) 0 (units (unknown) date) unknown) (unknown) (no (unknown) (unknown) Eos % (Auto) (units (u nknown) date) unknown) (unknown) (no (unknown) (unknown) Eos % (Auto) 0.0 (units (unknown) date) L unknown) (unknown) (no (unknown) (unknown) Estimated GFR (units ( unknown) date) unknown) (unknown) (no (unknown) (unknown) Estimated GFR 30 (units (unknown) date) L unknown) (unknown) (no (unknown) (unknown) Exam (units (unkno wn) date) unknown) (unknown) (no (unknown) (unknown) Exam Narrative: (units (unknown) date) unknown) (unknown) (no (unknown) (unknown) Exception-the (units (u nknown) date) patient is not unknown) eligible for medication reconciliation; the patient (unknown) (no (unknown) (unknown) Family + Social (units (unknown) date) History unknown) (unknown) (no (unknown) (unknown) Family History (units (unknown) date) (Reviewed 03/20/22 unknown) @ 06:52 by MATHEUS Ann) (unknown) (no (unknown) (unknown) Family history of (units (unknown) date) angioedema unknown) (unknown) (no (unknown) (unknown) Father (units (unkno wn) date) Hypertension unknown) (unknown) (no (unknown) (unknown) Feels Safe in (units ( unknown) date) Current Yes unknown) (unknown) (no (unknown) (unknown) GASTROINTESTINAL: (units (unknown) date) Abdomen soft, unknown) generalized abdominal pain, nondistended.? Bowel (unknown) (no (unknown) (unknown) GENERAL: [46] (units ( unknown) date) year old patient unknown) appears stated age. Well-developed patient, in (unknown) (no (unknown) (unknown) GFR>60, creatinine (units (unknown) date) 0.62. Patient's unknown) total protein 11, globulin 5.2, albumin 5.8, (unknown) (no (unknown) (unknown) Globulin (units (unkno wn) date) unknown) (unknown) (no (unknown) (unknown) Globulin 5.2 H (units (unknown) date) unknown) (unknown) (no (unknown) (unknown) Glucose (units (unkno wn) date) unknown) (unknown) (no (unknown) (unknown) Glucose 142 H (units ( unknown) date) unknown) (unknown) (no (unknown) (unknown) HEAD: Atraumatic. (units (unknown) date) Normocephalic. unknown) (unknown) (no (unknown) (unknown) Hct (units (unkno wn) date) unknown) (unknown) (no (unknown) (unknown) Hct 44.5 (units (unkno wn) date) unknown) (unknown) (no (unknown) (unknown) Hgb (units (unkno wn) date) unknown) (unknown) (no (unknown) (unknown) Hgb 15.3 (units (unkno wn) date) unknown) (unknown) (no (unknown) (unknown) History of (units (unk nown) date) Present Illness unknown) (unknown) (no (unknown) (unknown) Home Medications (units (unknown) date) and Allergies unknown) (unknown) (no (unknown) (unknown) Hx of (units (unkno wn) date) appendectomy unknown) (unknown) (no (unknown) (unknown) Hx of (units (unkno wn) date) cholecystectomy unknown) (unknown) (no (unknown) (unknown) I confirmed that (units (unknown) date) the patient's unknown) advanced care plan is present, Code status is (unknown) (no (unknown) (unknown) I have utilized (units (unknown) date) all available unknown) immediate resources to obtain, update, or review (unknown) (no (unknown) (unknown) I spent a total (units (unknown) date) of [] minutes of unknown) critical care time on this patient's care (unknown) (no (unknown) (unknown) Ketones (units (unkno wn) date) unknown) (unknown) (no (unknown) (unknown) Ketones 0.17 (units (u nknown) date) unknown) (unknown) (no (unknown) (unknown) Labs (units (unkno wn) date) unknown) (unknown) (no (unknown) (unknown) Labs: (units (unkno wn) date) unknown) (unknown) (no (unknown) (unknown) Lactate (units (unkno wn) date) unknown) (unknown) (no (unknown) (unknown) Lactate 2.2 H (units ( unknown) date) unknown) (unknown) (no (unknown) (unknown) Lymph # (Auto) (units (unknown) date) unknown) (unknown) (no (unknown) (unknown) Lymph # (Auto) (units (unknown) date) 1000 L unknown) (unknown) (no (unknown) (unknown) Lymph % (Auto) (units (unknown) date) unknown) (unknown) (no (unknown) (unknown) Lymph % (Auto) (units (unknown) date) 8.1 L unknown) (unknown) (no (unknown) (unknown) MCH (units (unkno wn) date) unknown) (unknown) (no (unknown) (unknown) MCH 31.6 (units (unkno wn) date) unknown) (unknown) (no (unknown) (unknown) MCHC (units (unkno wn) date) unknown) (unknown) (no (unknown) (unknown) MCHC 34.4 (units (unkn own) date) unknown) (unknown) (no (unknown) (unknown) MCV (units (unkno wn) date) unknown) (unknown) (no (unknown) (unknown) MCV 91.7 (units (unkno wn) date) unknown) (unknown) (no (unknown) (unknown) 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 (unknown) (no (unknown) (unknown) Marijuana use, (units (unknown) date) continuous unknown) (unknown) (no (unknown) (unknown) Medical History (units (unknown) date) (Reviewed 03/20/22 unknown) @ 06:52 by Kylee Arauz [facility]) (unknown) (no (unknown) (unknown) Meds (units (unkno wn) date) unknown) (unknown) (no (unknown) (unknown) Dameon Castro is a (units (unknown) date) 46-year-old female unknown) with history of cyclic vomiting and (unknown) (no (unknown) (unknown) Centre # (Auto) (units ( unknown) date) unknown) (unknown) (no (unknown) (unknown) Centre # (Auto) (units ( unknown) date) 1000 H unknown) (unknown) (no (unknown) (unknown) Centre % (Auto) (units ( unknown) date) unknown) (unknown) (no (unknown) (unknown) Centre % (Auto) 8.3 (units (unknown) date) unknown) (unknown) (no (unknown) (unknown) Mother Diabetes (units (unknown) date) mellitus unknown) (unknown) (no (unknown) (unknown) NECK: Trachea (units ( unknown) date) midline. Non unknown) tender (unknown) (no (unknown) (unknown) NEURO: AOx3. (units (u nknown) date) unknown) (unknown) (no (unknown) (unknown) Narrative (units (unkn own) date) unknown) (unknown) (no (unknown) (unknown) Narrative: (units (unk nown) date) unknown) (unknown) (no (unknown) (unknown) Neut # (Auto) (units ( unknown) date) unknown) (unknown) (no (unknown) (unknown) Neut # (Auto) (units ( unknown) date) 10156 H unknown) (unknown) (no (unknown) (unknown) Neut % (Auto) (units ( unknown) date) unknown) (unknown) (no (unknown) (unknown) Neut % (Auto) (units ( unknown) date) 83.2 H unknown) (unknown) (no (unknown) (unknown) Objective (units (unkn own) date) unknown) (unknown) (no (unknown) (unknown) On admit patient (units (unknown) date) presents afebrile unknown) temp 98.5?, BP 135/94, HR 99, RR 18, O2 (unknown) (no (unknown) (unknown) Other Colon (units (un known) date) cancer unknown) (unknown) (no (unknown) (unknown) Oxygen Delivery (units (unknown) date) Method Room Air unknown) (unknown) (no (unknown) (unknown) Oxygen Delivery (units (unknown) date) Method Room Air unknown) (unknown) (no (unknown) (unknown) Pancreatitis (units (u nknown) date) unknown) (unknown) (no (unknown) (unknown) Patient History (units (unknown) date) unknown) (unknown) (no (unknown) (unknown) Patient: (units (unkno wn) date) Dameon Castro MR#: unknown) [id number] (unknown) (no (unknown) (unknown) Plt Count (units (unkn own) date) unknown) (unknown) (no (unknown) (unknown) Plt Count 273 (units ( unknown) date) unknown) (unknown) (no (unknown) (unknown) Potassium (units (unkn own) date) unknown) (unknown) (no (unknown) (unknown) Potassium 2.6 L* (units (unknown) date) unknown) (unknown) (no (unknown) (unknown) Provider: (units (unkn own) date) Kylee Arauz unknown) [employer] 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 unknown) Breath sounds equal bilaterally. No wheezes, (unknown) (no (unknown) (unknown) Respiratory Rate (units (unknown) date) 18 unknown) (unknown) (no (unknown) (unknown) Result Diagrams: (units (unknown) date) unknown) (unknown) (no (unknown) (unknown) Review of Systems (units (unknown) date) unknown) (unknown) (no (unknown) (unknown) SARS-CoV-2 (PCR) (units (unknown) date) unknown) (unknown) (no (unknown) (unknown) SARS-CoV-2 (PCR) (units (unknown) date) Negative unknown) (unknown) (no (unknown) (unknown) SKIN: No rash or (units (unknown) date) erythema of unknown) visible areas (unknown) (no (unknown) (unknown) Safety + (units (unkno wn) date) Behavioral: unknown) (unknown) (no (unknown) (unknown) Signed By: (units (unk nown) date) unknown) (unknown) (no (unknown) (unknown) Smoking Status (units (unknown) date) Current every day unknown) smoker (unknown) (no (unknown) (unknown) Social History: (units (unknown) date) unknown) (unknown) (no (unknown) (unknown) Sodium (units (unkno wn) date) unknown) (unknown) (no (unknown) (unknown) Sodium 142 (units (unk nown) date) unknown) (unknown) (no (unknown) (unknown) Substance Use (units ( unknown) date) Type marijuana unknown) (unknown) (no (unknown) (unknown) Surgical History (units (unknown) date) (Reviewed 03/20/22 unknown) @ 06:52 by MATHEUS Ann) (unknown) (no (unknown) (unknown) Surrogate (units (unkn own) date) decision maker: unknown) (unknown) (no (unknown) (unknown) Temperature 98.5 (units (unknown) date) F unknown) (unknown) (no (unknown) (unknown) Time Patient (units (u nknown) date) Seen: 06:47 unknown) (unknown) (no (unknown) (unknown) Time Spent With (units (unknown) date) Patient unknown) (unknown) (no (unknown) (unknown) Tobacco + (units (unkn own) date) Substance use: unknown) (unknown) (no (unknown) (unknown) Total Bilirubin (units (unknown) date) unknown) (unknown) (no (unknown) (unknown) Total Bilirubin (units (unknown) date) 1.7 H unknown) (unknown) (no (unknown) (unknown) Total Protein (units ( unknown) date) unknown) (unknown) (no (unknown) (unknown) Total Protein (units ( unknown) date) 11.0 H unknown) (unknown) (no (unknown) (unknown) VBG Base Excess (units (unknown) date) unknown) (unknown) (no (unknown) (unknown) VBG Base Excess (units (unknown) date) 23.0 H unknown) (unknown) (no (unknown) (unknown) VBG HCO3 (units (unkno wn) date) unknown) (unknown) (no (unknown) (unknown) VBG HCO3 44 H (units ( unknown) date) unknown) (unknown) (no (unknown) (unknown) VBG O2 Saturation (units (unknown) date) unknown) (unknown) (no (unknown) (unknown) VBG O2 Saturation (units (unknown) date) 91 H unknown) (unknown) (no (unknown) (unknown) VBG Total CO2 (units ( unknown) date) unknown) (unknown) (no (unknown) (unknown) VBG Total CO2 46 (units (unknown) date) H unknown) (unknown) (no (unknown) (unknown) VBG pCO2 (units (unkno wn) date) unknown) (unknown) (no (unknown) (unknown) VBG pCO2 45.0 (units ( unknown) date) unknown) (unknown) (no (unknown) (unknown) VBG pH (units (unkno wn) date) unknown) (unknown) (no (unknown) (unknown) VBG pH 7.60 H (units ( unknown) date) unknown) (unknown) (no (unknown) (unknown) VBG pO2 (units (unkno wn) date) unknown) (unknown) (no (unknown) (unknown) VBG pO2 52 H (units (u nknown) date) unknown) (unknown) (no (unknown) (unknown) Vital Signs (units (un known) date) unknown) (unknown) (no (unknown) (unknown) WBC (units (unkno wn) date) unknown) (unknown) (no (unknown) (unknown) WBC 12.0 H (units (unk nown) date) unknown) (unknown) (no (unknown) (unknown) [Embedded Image (units (unknown) date) Not Available] unknown) (unknown) (no (unknown) (unknown) [METOCLOPRAMIDE] (units (unknown) date) unknown) (unknown) (no (unknown) (unknown) abdominal (units (unkno wn) date) migraines being unknown) admitted for respiratory metabolic alkalosis secondary (unknown) (no (unknown) (unknown) abdominal (units (unkn own) date) migraines presents unknown) under similar circumstances complaining of (unknown) (no (unknown) (unknown) admission (units (unkn own) date) unknown) (unknown) (no (unknown) (unknown) alcohol intake (units (unknown) date) frequency 3 or unknown) more drinks per day (unknown) (no (unknown) (unknown) alkalosis, acute, (units (unknown) date) present on unknown) admission (unknown) (no (unknown) (unknown) alkalosis- VBG is (units (unknown) date) pH 7.6, CO2 45, unknown) PO2 52, HC03 44, O2 saturation 91%, base (unknown) (no (unknown) (unknown) bowel or bladder (units (unknown) date) issues, recent unknown) illness injury or trauma. (unknown) (no (unknown) (unknown) documented and/or (units (unknown) date) surrogate decision unknown) maker is listed in the patient's medical (unknown) (no (unknown) (unknown) excess 23 patient (units (unknown) date) does have a white unknown) count of 12 with a left shift neutrophils (unknown) (no (unknown) (unknown) generalized (units (un known) date) abdominal pain and unknown) frequent vomiting over the past 2 days despite (unknown) (no (unknown) (unknown) her hands which is (units (unknown) date) not normal for unknown) her.? She denies any new medications or change (unknown) (no (unknown) (unknown) household members (units (unknown) date) spouse unknown) (unknown) (no (unknown) (unknown) icterus. No (units (un known) date) injection or unknown) drainage. (unknown) (no (unknown) (unknown) in her diet.? She (units (unknown) date) denies any recent unknown) travel. Patient denies chest pain, (unknown) (no (unknown) (unknown) lactate 2.2 (units (un known) date) patient has a gap unknown) of 26, calcium is 10.9, total bili 1.7, AST 39, (unknown) (no (unknown) (unknown) latex [LATEX] (units ( unknown) date) Allergy Unknown unknown) Verified 11/02/21 15:46 (unknown) (no (unknown) (unknown) lorazepam 0.5 mg (units (unknown) date) tablet (Ativan) unknown) 0.5 mg PO DAILY PRN nausea and 11/03/21 Rx (unknown) (no (unknown) (unknown) metoclopramide (units (unknown) date) AdvReac Unknown unknown) DYSTONIA Verified 11/02/21 15:46 (unknown) (no (unknown) (unknown) moderate (units (unkno wn) date) distress, lying on unknown) her side holding an emesis bag, clearly feeling (unknown) (no (unknown) (unknown) ondansetron 4 mg (units (unknown) date) disintegrating 4 unknown) mg PO Q8H PRN nausea and 07/28/19 08/26/21 Rx (unknown) (no (unknown) (unknown) ondansetron 8 mg (units (unknown) date) disintegrating 8 unknown) mg PO TID PRN Nausea 09/18/19 08/26/21 History (unknown) (no (unknown) (unknown) patient may have (units (unknown) date) a underlying unknown) infectious disease process as well. (unknown) (no (unknown) (unknown) promethazine (units (u nknown) date) [PROMETHAZINE] unknown) Allergy Mild ERYTHEMA Verified 08/26/21 15:49 (unknown) (no (unknown) (unknown) recent illness, (units (unknown) date) or exposure, blood unknown) in her vomit, blood in urine blood in stool, (unknown) (no (unknown) (unknown) record. (units (unkno wn) date) unknown) (unknown) (no (unknown) (unknown) saturation 100% (units (unknown) date) on room air. unknown) Patient presents with respiratory and metabolic (unknown) (no (unknown) (unknown) shortness of (units (u nknown) date) breath, upper unknown) respiratory symptoms, fever, body aches, chills, (unknown) (no (unknown) (unknown) spray headache #1 (units (unknown) date) ea unknown) (unknown) (no (unknown) (unknown) states that over (units (unknown) date) the course of the unknown) day she is developed cramping and tingling in (unknown) (no (unknown) (unknown) sumatriptan 5 (units ( unknown) date) mg/actuation nasal unknown) 5 mg intranasal Q2-4H PRN migraine 06/04/21 0 (unknown) (no (unknown) (unknown) tablet (units (unkno wn) date) unknown) (unknown) (no (unknown) (unknown) tablet vomiting (units (unknown) date) #10 tabs unknown) (unknown) (no (unknown) (unknown) the patient's (units ( unknown) date) current unknown) medications. (unknown) (no (unknown) (unknown) the patient's (units ( unknown) date) health. unknown) (unknown) (no (unknown) (unknown) the use of her (units (unknown) date) home Zofran and unknown) suppository.? She has terrible appetite and (unknown) (no (unknown) (unknown) today; this time (units (unknown) date) is exclusive of unknown) procedural time. (unknown) (no (unknown) (unknown) unwell (units (unkno wn) date) unknown) (unknown) (no (unknown) (unknown) vomiting has (units (u nknown) date) ceased. unknown) (unknown) (no (unknown) (unknown) vomiting with (units ( unknown) date) respiratory unknown) metabolic alkalosis, SERGEY and hypokalemia. (unknown) (no (unknown) (unknown) without erythema, (units (unknown) date) tonsillar unknown) hypertrophy or exudate. Airway patent. (unknown) (no (unknown) (unknown) x-ray and UA (units (u nknown) date) unknown) Result panel 23 (unknown) (no (unknown) (unknown) (no value) (units (unk nown) date) unknown) (unknown) (no (unknown) (unknown) (no value) (units (unk nown) date) unknown) (unknown) (no (unknown) (unknown) Date of Service: (units (unknown) date) 03/20/22 unknown) (unknown) (no (unknown) (unknown) (no value) (units (unk nown) date) unknown) (unknown) (no (unknown) (unknown) - (units (unkno wn) date) unknown) (unknown) (no (unknown) (unknown) 03/20/22 04:40 (units (unknown) date) unknown) (unknown) (no (unknown) (unknown) 03/20/22 0740 (units ( unknown) date) unknown) (unknown) (no (unknown) (unknown) ABLE TO (units (unkno wn) date) unknown) (unknown) (no (unknown) (unknown) Allergies (units (unkn own) date) unknown) (unknown) (no (unknown) (unknown) History + (units (unkn own) date) Physical Report unknown) (unknown) (no (unknown) (unknown) Home Medications (units (unknown) date) unknown) (unknown) (no (unknown) (unknown) [facility] (units (unknown) date) [address] unknown) [place] [address] (unknown) (no (unknown) (unknown) Laboratory (units (unk nown) date) Results - last 24 unknown) hr (unknown) (no (unknown) (unknown) PT STATES (units (unkn own) date) unknown) (unknown) (no (unknown) (unknown) [facility] (units (unkno wn) date) unknown) (unknown) (no (unknown) (unknown) TO IV SITE (units (unk nown) date) unknown) (unknown) (no (unknown) (unknown) (no value) (units (unk nown) date) unknown) (unknown) (no (unknown) (unknown) 04:40 04:40 04:40 (units (unknown) date) unknown) (unknown) (no (unknown) (unknown) 05:30 05:44 05:45 (units (unknown) date) unknown) (unknown) (no (unknown) (unknown) 03/20/22 03/20/22 (units (unknown) date) 03/20/22 unknown) (unknown) (no (unknown) (unknown) 03/20/22 (units (unkno wn) date) unknown) (unknown) (no (unknown) (unknown) Medication (units (unk nown) date) Instructions unknown) Recorded Confirmed Type (unknown) (no (unknown) (unknown) documented. (units (un known) date) unknown) (unknown) (no (unknown) (unknown) rales, or (units (unkn own) date) rhonchi.? unknown) (unknown) (no (unknown) (unknown) sounds present in (units (unknown) date) all 4 quadrants unknown) (unknown) (no (unknown) (unknown) than 2 midnights (units (unknown) date) unknown) (unknown) (no (unknown) (unknown) to cyclic (units (unkn own) date) vomiting, unknown) resulting in SERGEY and hypokalemia. (unknown) (no (unknown) (unknown) vomiting #10 tabs (units (unknown) date) unknown) (unknown) (no (unknown) (unknown) (past 8 hours): (units (unknown) date) unknown) (unknown) (no (unknown) (unknown) -11/03/2021 GFR> (units (unknown) date) 60, creatinine unknown) 0.62-today creatinine 1.99 GFR 30 (unknown) (no (unknown) (unknown) -LR at 100 cc HR (units (unknown) date) for hydration unknown) (unknown) (no (unknown) (unknown) -Zofran Haldol (units (unknown) date) and Ativan to unknown) control vomiting (unknown) (no (unknown) (unknown) -abuse BC of 12 (units (unknown) date) neutrophils unknown) 10,000, mono feels 1000, lactate 2.2, ordered chest (unknown) (no (unknown) (unknown) -and has for (units (u nknown) date) hydration, ordered unknown) Mag, BMP lipase urine tox (unknown) (no (unknown) (unknown) -he etiology (units (u nknown) date) unknown suspected unknown) 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, though (unknown) (no (unknown) (unknown) -monitor labs (units ( unknown) date) unknown) (unknown) (no (unknown) (unknown) -patient NPO december (units (unknown) date) progress to clear unknown) liquids and advance as tolerated once (unknown) (no (unknown) (unknown) -potassium (units (unk nown) date) replacement unknown) ordered (unknown) (no (unknown) (unknown) -trend potassium (units (unknown) date) unknown) (unknown) (no (unknown) (unknown) 08/26/21 Rx (units (un known) date) unknown) (unknown) (no (unknown) (unknown) 04:13 (units (unkno wn) date) unknown) (unknown) (no (unknown) (unknown) 1. Cyclic (units (unkn own) date) vomiting, unknown) resulting in respiratory metabolic and respiratory (unknown) (no (unknown) (unknown) 10,000, monitor (units (unknown) date) feels 1000. unknown) Patient has SERGEY chloride 83, hypokalemia potassium (unknown) (no (unknown) (unknown) 2. SERGEY as a (units (un known) date) result of cyclic unknown) vomiting, with leukocytosis, acute, present on (unknown) (no (unknown) (unknown) 2.6, bicarb 33, (units (unknown) date) creatinine 1.99, unknown) glucose 142, GFR of 30. 11/03/2021 patient's (unknown) (no (unknown) (unknown) [address] (units (o wn) date) unknown) (unknown) (no (unknown) (unknown) 3. Hypokalemia, (units (unknown) date) acute, present on unknown) admission likely secondary to cyclic vomiting (unknown) (no (unknown) (unknown) ALT (units (o wn) date) unknown) (unknown) (no (unknown) (unknown) ALT 36 H (units (o wn) date) unknown) (unknown) (no (unknown) (unknown) ALT 36, ketones (units (unknown) date) are negative. unknown) Patient is admitted for cyclic nausea and (unknown) (no (unknown) (unknown) AST (units (o wn) date) unknown) (unknown) (no (unknown) (unknown) AST 39 H (units (o wn) date) unknown) (unknown) (no (unknown) (unknown) Abscess (units (o wn) date) unknown) (unknown) (no (unknown) (unknown) Age/Sex: 46 / F (units (unknown) date) unknown) (unknown) (no (unknown) (unknown) Albumin (units (o wn) date) unknown) (unknown) (no (unknown) (unknown) Albumin 5.8 H (units ( unknown) date) unknown) (unknown) (no (unknown) (unknown) Albumin/Globulin (units (unknown) date) Ratio unknown) (unknown) (no (unknown) (unknown) Albumin/Globulin (units (unknown) date) Ratio 1.1 unknown) (unknown) (no (unknown) (unknown) Alkaline (units ( wn) date) Phosphatase unknown) (unknown) (no (unknown) (unknown) Alkaline (units (unkno wn) date) Phosphatase 87 unknown) (unknown) (no (unknown) (unknown) All 12 point (units (un known) date) systems reviewed unknown) with the patient and are negative except otherwise (unknown) (no (unknown) (unknown) Allergy/AdvReac (units (unknown) date) Type Severity unknown) Reaction Status Date / Time (unknown) (no (unknown) (unknown) Assessment + Plan (units (unknown) date) unknown) (unknown) (no (unknown) (unknown) Assessment + Plan (units (unknown) date) narrative: unknown) (unknown) (no (unknown) (unknown) BACK: Nontender (units (unknown) date) without deformity unknown) or crepitance. No flank tenderness. (unknown) (no (unknown) (unknown) BUN (units (unkno wn) date) unknown) (unknown) (no (unknown) (unknown) BUN 22 H (units (unkno wn) date) unknown) (unknown) (no (unknown) (unknown) BUN/Creatinine (units (unknown) date) Ratio unknown) (unknown) (no (unknown) (unknown) BUN/Creatinine (units (unknown) date) Ratio 11.1 unknown) (unknown) (no (unknown) (unknown) Baso # (Auto) (units ( unknown) date) unknown) (unknown) (no (unknown) (unknown) Baso # (Auto) 0 (units (unknown) date) unknown) (unknown) (no (unknown) (unknown) Baso % (Auto) (units ( unknown) date) unknown) (unknown) (no (unknown) (unknown) Baso % (Auto) 0.4 (units (unknown) date) unknown) (unknown) (no (unknown) (unknown) Blood Pressure (units (unknown) date) 135/94 H unknown) (unknown) (no (unknown) (unknown) CARDIOVASCULAR: (units (unknown) date) Regular rate and unknown) rhythm without murmurs, gallops, or rubs. (unknown) (no (unknown) (unknown) COVID (units (unkno wn) date) PCR:Negative unknown) (unknown) (no (unknown) (unknown) Calcium (units (unkno wn) date) unknown) (unknown) (no (unknown) (unknown) Calcium 10.9 H (units (unknown) date) unknown) (unknown) (no (unknown) (unknown) Carbon Dioxide (units (unknown) date) unknown) (unknown) (no (unknown) (unknown) Carbon Dioxide 33 (units (unknown) date) H unknown) (unknown) (no (unknown) (unknown) Chief complaint: (units (unknown) date) Vomiting, SOB unknown) (unknown) (no (unknown) (unknown) Chloride (units (unkno wn) date) unknown) (unknown) (no (unknown) (unknown) Chloride 83 L (units ( unknown) date) unknown) (unknown) (no (unknown) (unknown) Chronic abdominal (units (unknown) date) pain unknown) (unknown) (no (unknown) (unknown) Code status: Full (units (unknown) date) unknown) (unknown) (no (unknown) (unknown) Creatinine (units (unk nown) date) unknown) (unknown) (no (unknown) (unknown) Creatinine 1.99 H (units (unknown) date) unknown) (unknown) (no (unknown) (unknown) Critical Care (units ( unknown) date) time: unknown) (unknown) (no (unknown) (unknown) Cyclic vomiting (units (unknown) date) syndrome unknown) (unknown) (no (unknown) (unknown) : 1975 (units (unknown) date) Acct:[id number] unknown) (unknown) (no (unknown) (unknown) DVT/VTE (units (o wn) date) prophylaxis: unknown) Lovenox and SCDs (unknown) (no (unknown) (unknown) Date Patient (units (u nknon) date) Seen: 03/20/22 unknown) (unknown) (no (unknown) (unknown) Daughter (units (o wn) date) Angio-edema unknown) (unknown) (no (unknown) (unknown) Disposition: (units (u nk) date) Patient admitted unknown) for observation hydration and correction SERGEY (unknown) (no (unknown) (unknown) ENT:? Dry mucous (units (unknown) date) membranes Nose unknown) without bleeding, purulent drainage. Throat (unknown) (no (unknown) (unknown) EXTREMITIES: No (units (unknown) date) edema or joint unknown) tenderness. (unknown) (no (unknown) (unknown) EYES: Pupils (units (u nknown) date) equal round and unknown) reactive. Extraocular motions intact. No scleral (unknown) (no (unknown) (unknown) Environment (units (un known) date) unknown) (unknown) (no (unknown) (unknown) Eos # (Auto) (units (u nknown) date) unknown) (unknown) (no (unknown) (unknown) Eos # (Auto) 0 (units (unknown) date) unknown) (unknown) (no (unknown) (unknown) Eos % (Auto) (units (u nknown) date) unknown) (unknown) (no (unknown) (unknown) Eos % (Auto) 0.0 (units (unknown) date) L unknown) (unknown) (no (unknown) (unknown) Estimated GFR (units ( unknown) date) unknown) (unknown) (no (unknown) (unknown) Estimated GFR 30 (units (unknown) date) L unknown) (unknown) (no (unknown) (unknown) Exam (units (unkno wn) date) unknown) (unknown) (no (unknown) (unknown) Exam Narrative: (units (unknown) date) unknown) (unknown) (no (unknown) (unknown) Family + Social (units (unknown) date) History unknown) (unknown) (no (unknown) (unknown) Family History (units (unknown) date) (Reviewed 03/20/22 unknown) @ 06:52 by Kylee Arauz [facility]) (unknown) (no (unknown) (unknown) Family history of (units (unknown) date) angioedema unknown) (unknown) (no (unknown) (unknown) Father (units (unkno wn) date) Hypertension unknown) (unknown) (no (unknown) (unknown) Feels Safe in (units ( unknown) date) Current Yes unknown) (unknown) (no (unknown) (unknown) GASTROINTESTINAL: (units (unknown) date) Abdomen soft, unknown) generalized abdominal pain, nondistended.? Bowel (unknown) (no (unknown) (unknown) GENERAL: [46] (units ( unknown) date) year old patient unknown) appears stated age. Well-developed patient, in (unknown) (no (unknown) (unknown) GFR>60, creatinine (units (unknown) date) 0.62. Patient's unknown) total protein 11, globulin 5.2, albumin 5.8, (unknown) (no (unknown) (unknown) Globulin (units (unkno wn) date) unknown) (unknown) (no (unknown) (unknown) Globulin 5.2 H (units (unknown) date) unknown) (unknown) (no (unknown) (unknown) Glucose (units (unkno wn) date) unknown) (unknown) (no (unknown) (unknown) Glucose 142 H (units ( unknown) date) unknown) (unknown) (no (unknown) (unknown) HEAD: Atraumatic. (units (unknown) date) Normocephalic. unknown) (unknown) (no (unknown) (unknown) Hct (units (unkno wn) date) unknown) (unknown) (no (unknown) (unknown) Hct 44.5 (units (unkno wn) date) unknown) (unknown) (no (unknown) (unknown) Hgb (units (unkno wn) date) unknown) (unknown) (no (unknown) (unknown) Hgb 15.3 (units (unkno wn) date) unknown) (unknown) (no (unknown) (unknown) History of (units (unk nown) date) Present Illness unknown) (unknown) (no (unknown) (unknown) Home Medications (units (unknown) date) and Allergies unknown) (unknown) (no (unknown) (unknown) Hx of (units (unkno wn) date) appendectomy unknown) (unknown) (no (unknown) (unknown) Hx of (units (unkno wn) date) cholecystectomy unknown) (unknown) (no (unknown) (unknown) I confirmed that (units (unknown) date) the patient's unknown) advanced care plan is present, Code status is (unknown) (no (unknown) (unknown) I have utilized (units (unknown) date) all available unknown) immediate resources to obtain, update, or review (unknown) (no (unknown) (unknown) I spent a total (units (unknown) date) of [] minutes of unknown) critical care time on this patient's care (unknown) (no (unknown) (unknown) Ketones (units (unkno wn) date) unknown) (unknown) (no (unknown) (unknown) Ketones 0.17 (units (u nknown) date) unknown) (unknown) (no (unknown) (unknown) Labs (units (unkno wn) date) unknown) (unknown) (no (unknown) (unknown) Labs: (units (unkno wn) date) unknown) (unknown) (no (unknown) (unknown) Lactate (units (unkno wn) date) unknown) (unknown) (no (unknown) (unknown) Lactate 2.2 H (units ( unknown) date) unknown) (unknown) (no (unknown) (unknown) Lymph # (Auto) (units (unknown) date) unknown) (unknown) (no (unknown) (unknown) Lymph # (Auto) (units (unknown) date) 1000 L unknown) (unknown) (no (unknown) (unknown) Lymph % (Auto) (units (unknown) date) unknown) (unknown) (no (unknown) (unknown) Lymph % (Auto) (units (unknown) date) 8.1 L unknown) (unknown) (no (unknown) (unknown) MCH (units (unkno wn) date) unknown) (unknown) (no (unknown) (unknown) MCH 31.6 (units (unkno wn) date) unknown) (unknown) (no (unknown) (unknown) MCHC (units (unkno wn) date) unknown) (unknown) (no (unknown) (unknown) MCHC 34.4 (units (unkn own) date) unknown) (unknown) (no (unknown) (unknown) MCV (units (unkno wn) date) unknown) (unknown) (no (unknown) (unknown) MCV 91.7 (units (unkno wn) date) unknown) (unknown) (no (unknown) (unknown) 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 (unknown) (no (unknown) (unknown) Marijuana use, (units (unknown) date) continuous unknown) (unknown) (no (unknown) (unknown) Medical History (units (unknown) date) (Reviewed 03/20/22 unknown) @ 06:52 by MATHEUS Ann) (unknown) (no (unknown) (unknown) Meds (units (unkno wn) date) unknown) (unknown) (no (unknown) (unknown) Dameon Castro is a (units (unknown) date) 46-year-old female unknown) with history of cyclic vomiting and (unknown) (no (unknown) (unknown) Centre # (Auto) (units ( unknown) date) unknown) (unknown) (no (unknown) (unknown) Centre # (Auto) (units ( unknown) date) 1000 H unknown) (unknown) (no (unknown) (unknown) Centre % (Auto) (units ( unknown) date) unknown) (unknown) (no (unknown) (unknown) Centre % (Auto) 8.3 (units (unknown) date) unknown) (unknown) (no (unknown) (unknown) Mother Diabetes (units (unknown) date) mellitus unknown) (unknown) (no (unknown) (unknown) NECK: Trachea (units ( unknown) date) midline. Non unknown) tender (unknown) (no (unknown) (unknown) NEURO: AOx3. (units (u nknown) date) unknown) (unknown) (no (unknown) (unknown) Narrative (units (unkn own) date) unknown) (unknown) (no (unknown) (unknown) Narrative: (units (unk nown) date) unknown) (unknown) (no (unknown) (unknown) Neut # (Auto) (units ( unknown) date) unknown) (unknown) (no (unknown) (unknown) Neut # (Auto) (units ( unknown) date) [address]24 H unknown) (unknown) (no (unknown) (unknown) Neut % (Auto) (units ( unknown) date) unknown) (unknown) (no (unknown) (unknown) Neut % (Auto) (units ( unknown) date) 83.2 H unknown) (unknown) (no (unknown) (unknown) Objective (units (unkn own) date) unknown) (unknown) (no (unknown) (unknown) On admit patient (units (unknown) date) presents afebrile unknown) temp 98.5?, BP 135/94, HR 99, RR 18, O2 (unknown) (no (unknown) (unknown) Other Colon (units (un known) date) cancer unknown) (unknown) (no (unknown) (unknown) Oxygen Delivery (units (unknown) date) Method Room Air unknown) (unknown) (no (unknown) (unknown) Oxygen Delivery (units (unknown) date) Method Room Air unknown) (unknown) (no (unknown) (unknown) Pancreatitis (units (u nknown) date) unknown) (unknown) (no (unknown) (unknown) Patient History (units (unknown) date) unknown) (unknown) (no (unknown) (unknown) Patient: (units (unkno wn) date) Dameon Castro MR#: unknown) [id number] (unknown) (no (unknown) (unknown) Plt Count (units (unkn own) date) unknown) (unknown) (no (unknown) (unknown) Plt Count 273 (units ( unknown) date) unknown) (unknown) (no (unknown) (unknown) Potassium (units (unkn own) date) unknown) (unknown) (no (unknown) (unknown) Potassium 2.6 L* (units (unknown) date) unknown) (unknown) (no (unknown) (unknown) Provider: (units (unkn own) date) Kylee Arauz unknown) METALLURGICAL 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 unknown) Breath sounds equal bilaterally. No wheezes, (unknown) (no (unknown) (unknown) Respiratory Rate (units (unknown) date) 18 unknown) (unknown) (no (unknown) (unknown) Result Diagrams: (units (unknown) date) unknown) (unknown) (no (unknown) (unknown) Review of Systems (units (unknown) date) unknown) (unknown) (no (unknown) (unknown) SARS-CoV-2 (PCR) (units (unknown) date) unknown) (unknown) (no (unknown) (unknown) SARS-CoV-2 (PCR) (units (unknown) date) Negative unknown) (unknown) (no (unknown) (unknown) SKIN: No rash or (units (unknown) date) erythema of unknown) visible areas (unknown) (no (unknown) (unknown) Safety + (units (unkno wn) date) Behavioral: unknown) (unknown) (no (unknown) (unknown) Signed (units (unkno wn) date) By:<Electronically unknown) signed by Kylee METALLURGICAL TECHNICIANMITZI Arauz> (unknown) (no (unknown) (unknown) Smoking Status (units (unknown) date) Current every day unknown) smoker (unknown) (no (unknown) (unknown) Social History: (units (unknown) date) unknown) (unknown) (no (unknown) (unknown) Sodium (units (unkno wn) date) unknown) (unknown) (no (unknown) (unknown) Sodium 142 (units (unk nown) date) unknown) (unknown) (no (unknown) (unknown) Substance Use (units ( unknown) date) Type marijuana unknown) (unknown) (no (unknown) (unknown) Surgical History (units (unknown) date) (Reviewed 03/20/22 unknown) @ 06:52 by MATHEUS Ann) (unknown) (no (unknown) (unknown) Surrogate (units (unkn own) date) decision maker: unknown) Chandra Geraldine (unknown) (no (unknown) (unknown) Temperature 98.5 (units (unknown) date) F unknown) (unknown) (no (unknown) (unknown) Time Patient (units (u nknown) date) Seen: 06:47 unknown) (unknown) (no (unknown) (unknown) Time Spent With (units (unknown) date) Patient unknown) (unknown) (no (unknown) (unknown) Tobacco + (units (unkn own) date) Substance use: unknown) (unknown) (no (unknown) (unknown) Total Bilirubin (units (unknown) date) unknown) (unknown) (no (unknown) (unknown) Total Bilirubin (units (unknown) date) 1.7 H unknown) (unknown) (no (unknown) (unknown) Total Protein (units ( unknown) date) unknown) (unknown) (no (unknown) (unknown) Total Protein (units ( unknown) date) 11.0 H unknown) (unknown) (no (unknown) (unknown) VBG Base Excess (units (unknown) date) unknown) (unknown) (no (unknown) (unknown) VBG Base Excess (units (unknown) date) 23.0 H unknown) (unknown) (no (unknown) (unknown) VBG HCO3 (units (unkno wn) date) unknown) (unknown) (no (unknown) (unknown) VBG HCO3 44 H (units ( unknown) date) unknown) (unknown) (no (unknown) (unknown) VBG O2 Saturation (units (unknown) date) unknown) (unknown) (no (unknown) (unknown) VBG O2 Saturation (units (unknown) date) 91 H unknown) (unknown) (no (unknown) (unknown) VBG Total CO2 (units ( unknown) date) unknown) (unknown) (no (unknown) (unknown) VBG Total CO2 46 (units (unknown) date) H unknown) (unknown) (no (unknown) (unknown) VBG pCO2 (units (unkno wn) date) unknown) (unknown) (no (unknown) (unknown) VBG pCO2 45.0 (units ( unknown) date) unknown) (unknown) (no (unknown) (unknown) VBG pH (units (unkno wn) date) unknown) (unknown) (no (unknown) (unknown) VBG pH 7.60 H (units ( unknown) date) unknown) (unknown) (no (unknown) (unknown) VBG pO2 (units (unkno wn) date) unknown) (unknown) (no (unknown) (unknown) VBG pO2 52 H (units (u nknown) date) unknown) (unknown) (no (unknown) (unknown) Vital Signs (units (un known) date) unknown) (unknown) (no (unknown) (unknown) WBC (units (unkno wn) date) unknown) (unknown) (no (unknown) (unknown) WBC 12.0 H (units (unk nown) date) unknown) (unknown) (no (unknown) (unknown) [Embedded Image (units (unknown) date) Not Available] unknown) (unknown) (no (unknown) (unknown) [METOCLOPRAMIDE] (units (unknown) date) unknown) (unknown) (no (unknown) (unknown) abdominal (units (unkno wn) date) migraines being unknown) admitted for respiratory metabolic alkalosis secondary (unknown) (no (unknown) (unknown) abdominal (units (unkn own) date) migraines presents unknown) under similar circumstances complaining of (unknown) (no (unknown) (unknown) admission (units (unkn own) date) unknown) (unknown) (no (unknown) (unknown) alcohol intake (units (unknown) date) frequency 3 or unknown) more drinks per day (unknown) (no (unknown) (unknown) alkalosis, acute, (units (unknown) date) present on unknown) admission (unknown) (no (unknown) (unknown) alkalosis- VBG is (units (unknown) date) pH 7.6, CO2 45, unknown) PO2 52, HC03 44, O2 saturation 91%, base (unknown) (no (unknown) (unknown) bowel or bladder (units (unknown) date) issues, recent unknown) illness injury or trauma. Patient does endorse (unknown) (no (unknown) (unknown) documented and/or (units (unknown) date) surrogate decision unknown) maker is listed in the patient's medical (unknown) (no (unknown) (unknown) excess 23 patient (units (unknown) date) does have a white unknown) count of 12 with a left shift neutrophils (unknown) (no (unknown) (unknown) generalized (units (un known) date) abdominal pain and unknown) frequent vomiting over the past 2 days despite (unknown) (no (unknown) (unknown) her hands which is (units (unknown) date) not normal for unknown) her.? She denies any new medications or change (unknown) (no (unknown) (unknown) household members (units (unknown) date) spouse unknown) (unknown) (no (unknown) (unknown) icterus. No (units (un known) date) injection or unknown) drainage. (unknown) (no (unknown) (unknown) in her diet.? She (units (unknown) date) denies any recent unknown) travel. Patient denies chest pain, (unknown) (no (unknown) (unknown) lactate 2.2 (units (un known) date) patient has a gap unknown) of 26, calcium is 10.9, total bili 1.7, AST 39, (unknown) (no (unknown) (unknown) latex [LATEX] (units ( unknown) date) Allergy Unknown unknown) Verified 11/02/21 15:46 (unknown) (no (unknown) (unknown) lorazepam 0.5 mg (units (unknown) date) tablet (Ativan) unknown) 0.5 mg PO DAILY PRN nausea and 11/03/21 Rx (unknown) (no (unknown) (unknown) metoclopramide (units (unknown) date) AdvReac Unknown unknown) DYSTONIA Verified 11/02/21 15:46 (unknown) (no (unknown) (unknown) moderate (units (unkno wn) date) distress, lying on unknown) her side holding an emesis bag, clearly feeling (unknown) (no (unknown) (unknown) ondansetron 4 mg (units (unknown) date) disintegrating 4 unknown) mg PO Q8H PRN nausea and 07/28/19 08/26/21 Rx (unknown) (no (unknown) (unknown) ondansetron 8 mg (units (unknown) date) disintegrating 8 unknown) mg PO TID PRN Nausea 09/18/19 08/26/21 History (unknown) (no (unknown) (unknown) patient may have (units (unknown) date) a underlying unknown) infectious disease process as well. (unknown) (no (unknown) (unknown) promethazine (units (u nknown) date) [PROMETHAZINE] unknown) Allergy Mild ERYTHEMA Verified 08/26/21 15:49 (unknown) (no (unknown) (unknown) recent illness, (units (unknown) date) or exposure, blood unknown) in her vomit, blood in urine blood in stool, (unknown) (no (unknown) (unknown) record. (units (unkno wn) date) unknown) (unknown) (no (unknown) (unknown) respiratory and (units (unknown) date) metabolic unknown) alkalosis and hypokalemia expected length of stay less (unknown) (no (unknown) (unknown) saturation 100% (units (unknown) date) on room air. unknown) Patient presents with respiratory and metabolic (unknown) (no (unknown) (unknown) shortness of (units (u nknown) date) breath, upper unknown) respiratory symptoms, fever, body aches, chills, (unknown) (no (unknown) (unknown) spray headache #1 (units (unknown) date) ea unknown) (unknown) (no (unknown) (unknown) states that over (units (unknown) date) the course of the unknown) day she is developed cramping and tingling in (unknown) (no (unknown) (unknown) sumatriptan 5 (units ( unknown) date) mg/actuation nasal unknown) 5 mg intranasal Q2-4H PRN migraine 06/04/21 (unknown) (no (unknown) (unknown) tablet (units (unkno wn) date) unknown) (unknown) (no (unknown) (unknown) tablet vomiting (units (unknown) date) #10 tabs unknown) (unknown) (no (unknown) (unknown) the patient's (units ( unknown) date) current unknown) medications. (unknown) (no (unknown) (unknown) the use of her (units (unknown) date) home Zofran and unknown) suppository.? She has terrible appetite and (unknown) (no (unknown) (unknown) today; this time (units (unknown) date) is exclusive of unknown) procedural time. (unknown) (no (unknown) (unknown) unwell (units (unkno wn) date) unknown) (unknown) (no (unknown) (unknown) urinary urgency (units (unknown) date) and frequency. unknown) (unknown) (no (unknown) (unknown) vomiting has (units (u nknown) date) ceased. unknown) (unknown) (no (unknown) (unknown) vomiting with (units ( unknown) date) respiratory unknown) metabolic alkalosis, SERGEY and hypokalemia. (unknown) (no (unknown) (unknown) without erythema, (units (unknown) date) tonsillar unknown) hypertrophy or exudate. Airway patent. (unknown) (no (unknown) (unknown) x-ray and UA (units (u nknown) date) unknown) Result panel 24 (unknown) (no date) (unknown) (unknown) 2030 pg/mL (unkn own) Result panel 25 (unknown) (no date) (unknown) (unknown) 1.1 mmol/L (unkn own) Result panel 26 (unknown) (no date) (unknown) (unknown) 20 mg/dL 4498- 2 (unknown) (no date) (unknown) (unknown) 29 mg/dL 4477- 6 (unknown) (no date) (unknown) (unknown) 93 %mean normal 4 8494-9 Result panel 27 (unknown) (no date) (unknown) (unknown) 1.47 mg/dL (unkn own) (unknown) (no date) (unknown) (unknown) 120 mg/dL (unkn own) (unknown) (no date) (unknown) (unknown) 136 mmol/L (unkn own) (unknown) (no date) (unknown) (unknown) 16.3 (units unknown) (unknown) (unknown) (no date) (unknown) (unknown) 24 mg/dL (unkn own) (unknown) (no date) (unknown) (unknown) 3.6 mmol/L (unkn own) (unknown) (no date) (unknown) (unknown) 34 mmol/L (unkn own) (unknown) (no date) (unknown) (unknown) 44 mL/min (unkn own) (unknown) (no date) (unknown) (unknown) 9.0 mg/dL (unkn own) (unknown) (no date) (unknown) (unknown) 92 mmol/L (unkn own) Result panel 28 (unknown) (no date) (unknown) (unknown) 0.2 E.U./dL (unkn own) (unknown) (no date) (unknown) (unknown) 1+ (units (unkn own) unknown) (unknown) (no date) (unknown) (unknown) 1.015 (units (unkn own) unknown) (unknown) (no date) (unknown) (unknown) 3+ (units (unkn own) unknown) (unknown) (no date) (unknown) (unknown) 7.5 (units (unkn own) unknown) (unknown) (no date) (unknown) (unknown) CLEAR (units (unkn own) unknown) (unknown) (no date) (unknown) (unknown) NEGATIVE (units (unkn own) unknown) (unknown) (no date) (unknown) (unknown) NEGATIVE g/dL (unkn own) (unknown) (no date) (unknown) (unknown) TRACE (units (unkn own) unknown) (unknown) (no date) (unknown) (unknown) YELLOW (units (unkn own) unknown) Result panel 29 (unknown) (no date) (unknown) (unknown) Negative (units (unkn own) unknown) (unknown) (no date) (unknown) (unknown) Normal (units (unkn own) unknown) (unknown) (no date) (unknown) (unknown) Positive (units (unkn own) unknown) Result panel 30 (unknown) (no date) (unknown) (unknown) 0-1/HPF (units (unkn own) unknown) (unknown) (no date) (unknown) (unknown) 0.2 E.U./dL (unkn own) (unknown) (no date) (unknown) (unknown) 1+ (units (unkn own) unknown) (unknown) (no date) (unknown) (unknown) 1-5 /HPF (units (unkn own) unknown) (unknown) (no date) (unknown) (unknown) 1-5/LPF (units (unkn own) unknown) (unknown) (no date) (unknown) (unknown) 1.015 (units (unkn own) unknown) (unknown) (no date) (unknown) (unknown) 3+ (units (unkn own) unknown) (unknown) (no date) (unknown) (unknown) 5-10/HPF (units (unkn own) unknown) (unknown) (no date) (unknown) (unknown) 5-10/LPF (units (unkn own) unknown) (unknown) (no date) (unknown) (unknown) 7.5 (units (unkn own) unknown) (unknown) (no date) (unknown) (unknown) CLEAR (units (unkn own) unknown) (unknown) (no date) (unknown) (unknown) Few (2-10) (units (un known) unknown) (unknown) (no date) (unknown) (unknown) NEGATIVE (units (unkn own) unknown) (unknown) (no date) (unknown) (unknown) NEGATIVE g/dL (unkn own) (unknown) (no date) (unknown) (unknown) Specimen (units (unkn own) Cultured unknown) (unknown) (no date) (unknown) (unknown) TRACE (units (unkn own) unknown) (unknown) (no date) (unknown) (unknown) YELLOW (units (unkn own) unknown) Result panel 31 (unknown) (no (unknown) (unknown) (no value) (units (unk nown) date) unknown) (unknown) (no (unknown) (unknown) (no value) (units (unk nown) date) unknown) (unknown) (no (unknown) (unknown) Date of Service: (units (unknown) date) 03/20/22 unknown) (unknown) (no (unknown) (unknown) (no value) (units (unk nown) date) unknown) (unknown) (no (unknown) (unknown) ADDENDUM (units (u nknown) date) unknown) (unknown) (no (unknown) (unknown) - (units (unkno wn) date) unknown) (unknown) (no (unknown) (unknown) 03/20/22 04:40 (units (unknown) date) unknown) (unknown) (no (unknown) (unknown) 03/20/22 0740 (units ( unknown) date) unknown) (unknown) (no (unknown) (unknown) 03/20/22 2132 (units ( unknown) date) unknown) (unknown) (no (unknown) (unknown) ABLE TO (units (unkno wn) date) unknown) (unknown) (no (unknown) (unknown) Allergies (units (unkn own) date) unknown) (unknown) (no (unknown) (unknown) History + (units (unkn own) date) Physical Report unknown) (unknown) (no (unknown) (unknown) Home Medications (units (unknown) date) unknown) (unknown) (no (unknown) (unknown) [facility] (units (unknown) date) [address] unknown) [place] [address] (unknown) (no (unknown) (unknown) Laboratory (units (unk nown) date) Results - last 24 unknown) hr (unknown) (no (unknown) (unknown) PT STATES (units (unkn own) date) unknown) (unknown) (no (unknown) (unknown) [facility] (units (unkno wn) date) unknown) (unknown) (no (unknown) (unknown) TO IV SITE (units (unk nown) date) unknown) (unknown) (no (unknown) (unknown) (no value) (units (unk nown) date) unknown) (unknown) (no (unknown) (unknown) 04:40 04:40 04:40 (units (unknown) date) unknown) (unknown) (no (unknown) (unknown) 05:30 05:44 05:45 (units (unknown) date) unknown) (unknown) (no (unknown) (unknown) 03/20/22 03/20/22 (units (unknown) date) 03/20/22 unknown) (unknown) (no (unknown) (unknown) 03/20/22 (units (unkno wn) date) unknown) (unknown) (no (unknown) (unknown) Medication (units (unk nown) date) Instructions unknown) Recorded Confirmed Type (unknown) (no (unknown) (unknown) documented. (units (un known) date) unknown) (unknown) (no (unknown) (unknown) rales, or (units (unkn own) date) rhonchi.? unknown) (unknown) (no (unknown) (unknown) sounds present in (units (unknown) date) all 4 quadrants unknown) (unknown) (no (unknown) (unknown) than 2 midnights (units (unknown) date) unknown) (unknown) (no (unknown) (unknown) to cyclic (units (unkn own) date) vomiting, unknown) resulting in SERGEY and hypokalemia. (unknown) (no (unknown) (unknown) vomiting #10 tabs (units (unknown) date) unknown) (unknown) (no (unknown) (unknown) (past 8 hours): (units (unknown) date) unknown) (unknown) (no (unknown) (unknown) -11/03/2021 GFR> (units (unknown) date) 60, creatinine unknown) 0.62-today creatinine 1.99 GFR 30 (unknown) (no (unknown) (unknown) -LR at 100 cc HR (units (unknown) date) for hydration unknown) (unknown) (no (unknown) (unknown) -Zofran Haldol (units (unknown) date) and Ativan to unknown) control vomiting (unknown) (no (unknown) (unknown) -abuse BC of 12 (units (unknown) date) neutrophils unknown) 10,000, mono feels 1000, lactate 2.2, ordered chest (unknown) (no (unknown) (unknown) -and has for (units (u nknown) date) hydration, ordered unknown) Mag, BMP lipase urine tox (unknown) (no (unknown) (unknown) -he etiology (units (u nknown) date) unknown suspected unknown) 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 Cyclic (units (unkn own) date) vomiting, unknown) resulting in respiratory metabolic and respiratory (unknown) (no (unknown) (unknown) 10,000, monitor (units (unknown) date) feels 1000. unknown) Patient has SERGEY chloride 83, hypokalemia potassium (unknown) (no (unknown) (unknown) 2. SERGEY as a (units (un known) date) result of cyclic unknown) vomiting, with leukocytosis, acute, present on (unknown) (no (unknown) (unknown) 2.6, bicarb 33, (units (unknown) date) creatinine 1.99, unknown) glucose 142, GFR of 30. 11/03/2021 patient's (unknown) (no (unknown) (unknown) 213 (units (unkno wn) date) unknown) (unknown) (no (unknown) (unknown) [address] (units (unkno wn) date) unknown) (unknown) (no (unknown) (unknown) 3. Hypokalemia, (units (unknown) date) acute, present on unknown) admission likely secondary to cyclic vomiting (unknown) (no (unknown) (unknown) ALT (units (unkno wn) date) unknown) (unknown) (no (unknown) (unknown) ALT 36 H (units (unkn own) date) unknown) (unknown) (no (unknown) (unknown) ALT 36, ketones (units (unknown) date) are negative. unknown) Patient is admitted for cyclic nausea and (unknown) (no (unknown) (unknown) AST (units (unkno wn) date) unknown) (unknown) (no (unknown) (unknown) AST 39 H (units (unkno wn) date) unknown) (unknown) (no (unknown) (unknown) Abscess (units (unkno wn) date) unknown) (unknown) (no (unknown) (unknown) Addendum (units (unkno wn) date) Documented By: unknown) Kylee [facility] [place] (unknown) (no (unknown) (unknown) Addendum Signed (units (unknown) date) By: unknown) <Electronically signed by [facility]e [facility] (unknown) (no (unknown) (unknown) Age/Sex: 46 / F (units (unknown) date) unknown) (unknown) (no (unknown) (unknown) Albumin (units (unkno wn) date) unknown) (unknown) (no (unknown) (unknown) Albumin 5.8 H (units ( unknown) date) unknown) (unknown) (no (unknown) (unknown) Albumin/Globulin (units (unknown) date) Ratio unknown) (unknown) (no (unknown) (unknown) Albumin/Globulin (units (unknown) date) Ratio 1.1 unknown) (unknown) (no (unknown) (unknown) Alkaline (units (unkno wn) date) Phosphatase unknown) (unknown) (no (unknown) (unknown) Alkaline (units (unkno wn) date) Phosphatase 87 unknown) (unknown) (no (unknown) (unknown) All 12 point (units (un known) date) systems reviewed unknown) with the patient and are negative except otherwise (unknown) (no (unknown) (unknown) Allergy/AdvReac (units (unknown) date) Type Severity unknown) Reaction Status Date / Time (unknown) (no (unknown) (unknown) Assessment + Plan (units (unknown) date) unknown) (unknown) (no (unknown) (unknown) Assessment + Plan (units (unknown) date) narrative: unknown) (unknown) (no (unknown) (unknown) BACK: Nontender (units (unknown) date) without deformity unknown) or crepitance. No flank tenderness. (unknown) (no (unknown) (unknown) BUN (units (unkno wn) date) unknown) (unknown) (no (unknown) (unknown) BUN 22 H (units (unkno wn) date) unknown) (unknown) (no (unknown) (unknown) BUN/Creatinine (units (unknown) date) Ratio unknown) (unknown) (no (unknown) (unknown) BUN/Creatinine (units (unknown) date) Ratio 11.1 unknown) (unknown) (no (unknown) (unknown) Baso # (Auto) (units ( unknown) date) unknown) (unknown) (no (unknown) (unknown) Baso # (Auto) 0 (units (unknown) date) unknown) (unknown) (no (unknown) (unknown) Baso % (Auto) (units ( unknown) date) unknown) (unknown) (no (unknown) (unknown) Baso % (Auto) 0.4 (units (unknown) date) unknown) (unknown) (no (unknown) (unknown) Blood Pressure (units (unknown) date) 135/94 H unknown) (unknown) (no (unknown) (unknown) CARDIOVASCULAR: (units (unknown) date) Regular rate and unknown) rhythm without murmurs, gallops, or rubs. (unknown) (no (unknown) (unknown) COVID (units (unkno wn) date) PCR:Negative unknown) (unknown) (no (unknown) (unknown) Calcium (units (unkno wn) date) unknown) (unknown) (no (unknown) (unknown) Calcium 10.9 H (units (unknown) date) unknown) (unknown) (no (unknown) (unknown) Carbon Dioxide (units (unknown) date) unknown) (unknown) (no (unknown) (unknown) Carbon Dioxide 33 (units (unknown) date) H unknown) (unknown) (no (unknown) (unknown) Chief complaint: (units (unknown) date) Vomiting, SOB unknown) (unknown) (no (unknown) (unknown) Chloride (units (unkno wn) date) unknown) (unknown) (no (unknown) (unknown) Chloride 83 L (units ( unknown) date) unknown) (unknown) (no (unknown) (unknown) Chronic abdominal (units (unknown) date) pain unknown) (unknown) (no (unknown) (unknown) Code status: Full (units (unknown) date) unknown) (unknown) (no (unknown) (unknown) Creatinine (units (unk nown) date) unknown) (unknown) (no (unknown) (unknown) Creatinine 1.99 H (units (unknown) date) unknown) (unknown) (no (unknown) (unknown) Critical Care (units ( unknown) date) time: unknown) (unknown) (no (unknown) (unknown) Cyclic vomiting (units (unknown) date) syndrome unknown) (unknown) (no (unknown) (unknown) : 1975 (units (unknown) date) Acct:[id number] unknown) (unknown) (no (unknown) (unknown) DVT/VTE (units (unkno wn) date) prophylaxis: unknown) Lovenox and SCDs (unknown) (no (unknown) (unknown) Date Patient (units (u nknown) date) Seen: 03/20/22 unknown) (unknown) (no (unknown) (unknown) Daughter (units (o wn) date) Angio-edema unknown) (unknown) (no (unknown) (unknown) Disposition: (units (u nknown) date) Patient admitted unknown) for observation hydration and correction SERGEY (unknown) (no (unknown) (unknown) ENT:? Dry mucous (units (unknown) date) membranes Nose unknown) without bleeding, purulent drainage. Throat (unknown) (no (unknown) (unknown) EXTREMITIES: No (units (unknown) date) edema or joint unknown) tenderness. (unknown) (no (unknown) (unknown) EYES: Pupils (units (u nknown) date) equal round and unknown) reactive. Extraocular motions intact. No scleral (unknown) (no (unknown) (unknown) Environment (units (un known) date) unknown) (unknown) (no (unknown) (unknown) Eos # (Auto) (units (u nknown) date) unknown) (unknown) (no (unknown) (unknown) Eos # (Auto) 0 (units (unknown) date) unknown) (unknown) (no (unknown) (unknown) Eos % (Auto) (units (u nknown) date) unknown) (unknown) (no (unknown) (unknown) Eos % (Auto) 0.0 (units (unknown) date) L unknown) (unknown) (no (unknown) (unknown) Estimated GFR (units ( unknown) date) unknown) (unknown) (no (unknown) (unknown) Estimated GFR 30 (units (unknown) date) L unknown) (unknown) (no (unknown) (unknown) Exam (units (unkno wn) date) unknown) (unknown) (no (unknown) (unknown) Exam Narrative: (units (unknown) date) unknown) (unknown) (no (unknown) (unknown) Family + Social (units (unknown) date) History unknown) (unknown) (no (unknown) (unknown) Family History (units (unknown) date) (Reviewed 03/20/22 unknown) @ 06:52 by MATHEUS Ann) (unknown) (no (unknown) (unknown) Family history of (units (unknown) date) angioedema unknown) (unknown) (no (unknown) (unknown) Father (units (unkno wn) date) Hypertension unknown) (unknown) (no (unknown) (unknown) Feels Safe in (units ( unknown) date) Current Yes unknown) (unknown) (no (unknown) (unknown) GASTROINTESTINAL: (units (unknown) date) Abdomen soft, unknown) generalized abdominal pain, nondistended.? Bowel (unknown) (no (unknown) (unknown) GENERAL: [46] (units ( unknown) date) year old patient unknown) appears stated age. Well-developed patient, in (unknown) (no (unknown) (unknown) GFR>60, creatinine (units (unknown) date) 0.62. Patient's unknown) total protein 11, globulin 5.2, albumin 5.8, (unknown) (no (unknown) (unknown) Globulin (units (unkno wn) date) unknown) (unknown) (no (unknown) (unknown) Globulin 5.2 H (units (unknown) date) unknown) (unknown) (no (unknown) (unknown) Glucose (units (unkno wn) date) unknown) (unknown) (no (unknown) (unknown) Glucose 142 H (units ( unknown) date) unknown) (unknown) (no (unknown) (unknown) HEAD: Atraumatic. (units (unknown) date) Normocephalic. unknown) (unknown) (no (unknown) (unknown) Hct (units (unkno wn) date) unknown) (unknown) (no (unknown) (unknown) Hct 44.5 (units (unkno wn) date) unknown) (unknown) (no (unknown) (unknown) Hgb (units (unkno wn) date) unknown) (unknown) (no (unknown) (unknown) Hgb 15.3 (units (unkno wn) date) unknown) (unknown) (no (unknown) (unknown) History of (units (unk nown) date) Present Illness unknown) (unknown) (no (unknown) (unknown) Home Medications (units (unknown) date) and Allergies unknown) (unknown) (no (unknown) (unknown) Hx of (units (unkno wn) date) appendectomy unknown) (unknown) (no (unknown) (unknown) Hx of (units (unkno wn) date) cholecystectomy unknown) (unknown) (no (unknown) (unknown) I confirmed that (units (unknown) date) the patient's unknown) advanced care plan is present, Code status is (unknown) (no (unknown) (unknown) I have utilized (units (unknown) date) all available unknown) immediate resources to obtain, update, or review (unknown) (no (unknown) (unknown) I spent a total (units (unknown) date) of [] minutes of unknown) critical care time on this patient's care (unknown) (no (unknown) (unknown) Ketones (units (unkno wn) date) unknown) (unknown) (no (unknown) (unknown) Ketones 0.17 (units (u nknown) date) unknown) (unknown) (no (unknown) (unknown) Labs (units (unkno wn) date) unknown) (unknown) (no (unknown) (unknown) Labs: (units (unkno wn) date) unknown) (unknown) (no (unknown) (unknown) Lactate (units (unkno wn) date) unknown) (unknown) (no (unknown) (unknown) Lactate 2.2 H (units ( unknown) date) unknown) (unknown) (no (unknown) (unknown) Lymph # (Auto) (units (unknown) date) unknown) (unknown) (no (unknown) (unknown) Lymph # (Auto) (units (unknown) date) 1000 L unknown) (unknown) (no (unknown) (unknown) Lymph % (Auto) (units (unknown) date) unknown) (unknown) (no (unknown) (unknown) Lymph % (Auto) (units (unknown) date) 8.1 L unknown) (unknown) (no (unknown) (unknown) MCH (units (unkno wn) date) unknown) (unknown) (no (unknown) (unknown) MCH 31.6 (units (unkno wn) date) unknown) (unknown) (no (unknown) (unknown) MCHC (units (unkno wn) date) unknown) (unknown) (no (unknown) (unknown) MCHC 34.4 (units (unkn own) date) unknown) (unknown) (no (unknown) (unknown) MCV (units (unkno wn) date) unknown) (unknown) (no (unknown) (unknown) MCV 91.7 (units (unkno wn) date) unknown) (unknown) (no (unknown) (unknown) 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 (unknown) (no (unknown) (unknown) Marijuana use, (units (unknown) date) continuous unknown) (unknown) (no (unknown) (unknown) Medical History (units (unknown) date) (Reviewed 03/20/22 unknown) @ 06:52 by [facility]) (unknown) (no (unknown) (unknown) Meds (units (unkno wn) date) unknown) (unknown) (no (unknown) (unknown) Dameon Castro is a (units (unknown) date) 46-year-old female unknown) with history of cyclic vomiting and (unknown) (no (unknown) (unknown) Centre # (Auto) (units ( unknown) date) unknown) (unknown) (no (unknown) (unknown) Centre # (Auto) (units ( unknown) date) 1000 H unknown) (unknown) (no (unknown) (unknown) Centre % (Auto) (units ( unknown) date) unknown) (unknown) (no (unknown) (unknown) Centre % (Auto) 8.3 (units (unknown) date) unknown) (unknown) (no (unknown) (unknown) Mother Diabetes (units (unknown) date) mellitus unknown) (unknown) (no (unknown) (unknown) NECK: Trachea (units ( unknown) date) midline. Non unknown) tender (unknown) (no (unknown) (unknown) NEURO: AOx3. (units (u nknown) date) unknown) (unknown) (no (unknown) (unknown) Narrative (units (unkn own) date) unknown) (unknown) (no (unknown) (unknown) Narrative: (units (unk nown) date) unknown) (unknown) (no (unknown) (unknown) Neut # (Auto) (units ( unknown) date) unknown) (unknown) (no (unknown) (unknown) Neut # (Auto) (units ( unknown) date) [address]81 H unknown) (unknown) (no (unknown) (unknown) Neut % (Auto) (units ( unknown) date) unknown) (unknown) (no (unknown) (unknown) Neut % (Auto) (units ( unknown) date) 83.2 H unknown) (unknown) (no (unknown) (unknown) Objective (units (unkn own) date) unknown) (unknown) (no (unknown) (unknown) On admit patient (units (unknown) date) presents afebrile unknown) temp 98.5?, BP 135/94, HR 99, RR 18, O2 (unknown) (no (unknown) (unknown) Other Colon (units (un known) date) cancer unknown) (unknown) (no (unknown) (unknown) Oxygen Delivery (units (unknown) date) Method Room Air unknown) (unknown) (no (unknown) (unknown) Oxygen Delivery (units (unknown) date) Method Room Air unknown) (unknown) (no (unknown) (unknown) Pancreatitis (units (u nknown) date) unknown) (unknown) (no (unknown) (unknown) Patient History (units (unknown) date) unknown) (unknown) (no (unknown) (unknown) Patient presented (units (unknown) date) with angioedema at unknown) approximately 3:00 p.m. this afternoon (unknown) (no (unknown) (unknown) Patient: (units (unkno wn) date) Dameon Castro MR#: unknown) [id number] (unknown) (no (unknown) (unknown) Plt Count (units (unkn own) date) unknown) (unknown) (no (unknown) (unknown) Plt Count 273 (units ( unknown) date) unknown) (unknown) (no (unknown) (unknown) Potassium (units (unkn own) date) unknown) (unknown) (no (unknown) (unknown) Potassium 2.6 L* (units (unknown) date) unknown) (unknown) (no (unknown) (unknown) Provider: (units (unkn own) date) Kylee Arauz unknown) MARICARMEN-MITZI (unknown) (no (unknown) (unknown) Pulse Oximetry (units (unknown) date) 100 unknown) (unknown) (no (unknown) (unknown) Pulse Rate 99 H (units (unknown) date) unknown) (unknown) (no (unknown) (unknown) RBC (units (unkno wn) date) unknown) (unknown) (no (unknown) (unknown) RBC 4.86 (units (unkno wn) date) unknown) (unknown) (no (unknown) (unknown) RDW (units (unkno wn) date) unknown) (unknown) (no (unknown) (unknown) RDW 13.7 (units (unkno wn) date) unknown) (unknown) (no (unknown) (unknown) RESPIRATORY: Clear (units (unknown) date) to auscultation. unknown) Breath sounds equal bilaterally. No wheezes, (unknown) (no (unknown) (unknown) Respiratory Rate (units (unknown) date) 18 unknown) (unknown) (no (unknown) (unknown) Result Diagrams: (units (unknown) date) unknown) (unknown) (no (unknown) (unknown) Review of Systems (units (unknown) date) unknown) (unknown) (no (unknown) (unknown) SARS-CoV-2 (PCR) (units (unknown) date) unknown) (unknown) (no (unknown) (unknown) SARS-CoV-2 (PCR) (units (unknown) date) Negative unknown) (unknown) (no (unknown) (unknown) SKIN: No rash or (units (unknown) date) erythema of unknown) visible areas (unknown) (no (unknown) (unknown) Safety + (units (unkno wn) date) Behavioral: unknown) (unknown) (no (unknown) (unknown) Signed (units (unkno wn) date) By:<Electronically unknown) signed by [facility]> (unknown) (no (unknown) (unknown) Smoking Status (units (unknown) date) Current every day unknown) smoker (unknown) (no (unknown) (unknown) Social History: (units (unknown) date) unknown) (unknown) (no (unknown) (unknown) Sodium (units (unkno wn) date) unknown) (unknown) (no (unknown) (unknown) Sodium 142 (units (unk nown) date) unknown) (unknown) (no (unknown) (unknown) Substance Use (units ( unknown) date) Type marijuana unknown) (unknown) (no (unknown) (unknown) Surgical History (units (unknown) date) (Reviewed 03/20/22 unknown) @ 06:52 by Kylee Arauz [facility]-) (unknown) (no (unknown) (unknown) Surrogate (units (unkn own) date) decision maker: unknown) Chandra Chandler (unknown) (no (unknown) (unknown) Temperature 98.5 (units (unknown) date) F unknown) (unknown) (no (unknown) (unknown) Time Patient (units (u nknown) date) Seen: 06:47 unknown) (unknown) (no (unknown) (unknown) Time Spent With (units (unknown) date) Patient unknown) (unknown) (no (unknown) (unknown) Tobacco + (units (unkn own) date) Substance use: unknown) (unknown) (no (unknown) (unknown) Total Bilirubin (units (unknown) date) unknown) (unknown) (no (unknown) (unknown) Total Bilirubin (units (unknown) date) 1.7 H unknown) (unknown) (no (unknown) (unknown) Total Protein (units ( unknown) date) unknown) (unknown) (no (unknown) (unknown) Total Protein (units ( unknown) date) 11.0 H unknown) (unknown) (no (unknown) (unknown) VBG Base Excess (units (unknown) date) unknown) (unknown) (no (unknown) (unknown) VBG Base Excess (units (unknown) date) 23.0 H unknown) (unknown) (no (unknown) (unknown) VBG HCO3 (units (unkno wn) date) unknown) (unknown) (no (unknown) (unknown) VBG HCO3 44 H (units ( unknown) date) unknown) (unknown) (no (unknown) (unknown) VBG O2 Saturation (units (unknown) date) unknown) (unknown) (no (unknown) (unknown) VBG O2 Saturation (units (unknown) date) 91 H unknown) (unknown) (no (unknown) (unknown) VBG Total CO2 (units ( unknown) date) unknown) (unknown) (no (unknown) (unknown) VBG Total CO2 46 (units (unknown) date) H unknown) (unknown) (no (unknown) (unknown) VBG pCO2 (units (unkno wn) date) unknown) (unknown) (no (unknown) (unknown) VBG pCO2 45.0 (units ( unknown) date) unknown) (unknown) (no (unknown) (unknown) VBG pH (units (unkno wn) date) unknown) (unknown) (no (unknown) (unknown) VBG pH 7.60 H (units ( unknown) date) unknown) (unknown) (no (unknown) (unknown) VBG pO2 (units (unkno wn) date) unknown) (unknown) (no (unknown) (unknown) VBG pO2 52 H (units (u nknown) date) unknown) (unknown) (no (unknown) (unknown) Vital Signs (units (un known) date) unknown) (unknown) (no (unknown) (unknown) WBC (units (unkno wn) date) unknown) (unknown) (no (unknown) (unknown) WBC 12.0 H (units (unk nown) date) unknown) (unknown) (no (unknown) (unknown) [Embedded Image (units (unknown) date) Not Available] unknown) (unknown) (no (unknown) (unknown) [METOCLOPRAMIDE] (units (unknown) date) unknown) (unknown) (no (unknown) (unknown) abdominal (units (unkno wn) date) migraines being unknown) admitted for respiratory metabolic alkalosis secondary (unknown) (no (unknown) (unknown) abdominal (units (unkn own) date) migraines presents unknown) under similar circumstances complaining of (unknown) (no (unknown) (unknown) admission (units (unkn own) date) unknown) (unknown) (no (unknown) (unknown) alcohol intake (units (unknown) date) frequency 3 or unknown) more drinks per day (unknown) (no (unknown) (unknown) alkalosis, acute, (units (unknown) date) present on unknown) admission (unknown) (no (unknown) (unknown) alkalosis- VBG is (units (unknown) date) pH 7.6, CO2 45, unknown) PO2 52, HC03 44, O2 saturation 91%, base (unknown) (no (unknown) (unknown) anesthesiology. (units (unknown) date) Patient's airway unknown) is patent in she is in no respiratory distress (unknown) (no (unknown) (unknown) at this time and (units (unknown) date) is stable. Will unknown) monitor patient closely. (unknown) (no (unknown) (unknown) blocking agents. (units (unknown) date) At approximately unknown) 9:30 p.m. ordered Tranexamic Acid 1gram now - (unknown) (no (unknown) (unknown) bowel or bladder (units (unknown) date) issues, recent unknown) illness injury or trauma. Patient does endorse (unknown) (no (unknown) (unknown) documented and/or (units (unknown) date) surrogate decision unknown) maker is listed in the patient's medical (unknown) (no (unknown) (unknown) excess 23 patient (units (unknown) date) does have a white unknown) count of 12 with a left shift neutrophils (unknown) (no (unknown) (unknown) generalized (units (un known) date) abdominal pain and unknown) frequent vomiting over the past 2 days despite (unknown) (no (unknown) (unknown) given secondary (units (unknown) date) dose of unknown) Solu-Medrol 60mg demonstrating resistant to histamine (unknown) (no (unknown) (unknown) her hands which is (units (unknown) date) not normal for unknown) her.? She denies any new medications or change (unknown) (no (unknown) (unknown) household members (units (unknown) date) spouse unknown) (unknown) (no (unknown) (unknown) icterus. No (units (un known) date) injection or unknown) drainage. (unknown) (no (unknown) (unknown) in her diet.? She (units (unknown) date) denies any recent unknown) travel. Patient denies chest pain, (unknown) (no (unknown) (unknown) lactate 2.2 (units (un known) date) patient has a gap unknown) of 26, calcium is 10.9, total bili 1.7, AST 39, (unknown) (no (unknown) (unknown) latex [LATEX] (units ( unknown) date) Allergy Unknown unknown) Verified 11/02/21 15:46 (unknown) (no (unknown) (unknown) lorazepam 0.5 mg (units (unknown) date) tablet (Ativan) unknown) 0.5 mg PO DAILY PRN nausea and 11/03/21 Rx (unknown) (no (unknown) (unknown) metoclopramide (units (unknown) date) AdvReac Unknown unknown) DYSTONIA Verified 11/02/21 15:46 (unknown) (no (unknown) (unknown) moderate (units (unkno wn) date) distress, lying on unknown) her side holding an emesis bag, clearly feeling (unknown) (no (unknown) (unknown) not resolve she (units (unknown) date) was given unknown) Solu-Medrol 60mg, symptoms still did not resolve was (unknown) (no (unknown) (unknown) ondansetron 4 mg (units (unknown) date) disintegrating 4 unknown) mg PO Q8H PRN nausea and 07/28/19 08/26/21 Rx (unknown) (no (unknown) (unknown) ondansetron 8 mg (units (unknown) date) disintegrating 8 unknown) mg PO TID PRN Nausea 09/18/19 08/26/21 History (unknown) (no (unknown) (unknown) patient may have (units (unknown) date) a underlying unknown) infectious disease process as well. (unknown) (no (unknown) (unknown) patient was given (units (unknown) date) initial doses of unknown) Benadryl and epinephrine when symptoms did (unknown) (no (unknown) (unknown) promethazine (units (u nknown) date) [PROMETHAZINE] unknown) Allergy Mild ERYTHEMA Verified 08/26/21 15:49 (unknown) (no (unknown) (unknown) recent illness, (units (unknown) date) or exposure, blood unknown) in her vomit, blood in urine blood in stool, (unknown) (no (unknown) (unknown) record. (units (unkno wn) date) unknown) (unknown) (no (unknown) (unknown) respiratory and (units (unknown) date) metabolic unknown) alkalosis and hypokalemia expected length of stay less (unknown) (no (unknown) (unknown) saturation 100% (units (unknown) date) on room air. unknown) Patient presents with respiratory and metabolic (unknown) (no (unknown) (unknown) shortness of (units (u nknown) date) breath, upper unknown) respiratory symptoms, fever, body aches, chills, (unknown) (no (unknown) (unknown) spray headache #1 (units (unknown) date) ea unknown) (unknown) (no (unknown) (unknown) states that over (units (unknown) date) the course of the unknown) day she is developed cramping and tingling in (unknown) (no (unknown) (unknown) sumatriptan 5 (units ( unknown) date) mg/actuation nasal unknown) 5 mg intranasal Q2-4H PRN migraine 06/04/21 (unknown) (no (unknown) (unknown) tablet (units (unkno wn) date) unknown) (unknown) (no (unknown) (unknown) tablet vomiting (units (unknown) date) #10 tabs unknown) (unknown) (no (unknown) (unknown) the patient's (units ( unknown) date) current unknown) medications. (unknown) (no (unknown) (unknown) the use of her (units (unknown) date) home Zofran and unknown) suppository.? She has terrible appetite and (unknown) (no (unknown) (unknown) today; this time (units (unknown) date) is exclusive of unknown) procedural time. (unknown) (no (unknown) (unknown) unwell (units (unkno wn) date) unknown) (unknown) (no (unknown) (unknown) urinary urgency (units (unknown) date) and frequency. unknown) (unknown) (no (unknown) (unknown) vidson> 03/20/22 (units (unknown) date) unknown) (unknown) (no (unknown) (unknown) vomiting has (units (u nknown) date) ceased. unknown) (unknown) (no (unknown) (unknown) vomiting with (units ( unknown) date) respiratory unknown) metabolic alkalosis, SERGEY and hypokalemia. (unknown) (no (unknown) (unknown) will evaluate (units ( unknown) date) response. Consult unknown) Dr. Soto in ED, and will notify (unknown) (no (unknown) (unknown) without erythema, (units (unknown) date) tonsillar unknown) hypertrophy or exudate. Airway patent. (unknown) (no (unknown) (unknown) x-ray and UA (units (u nknown) date) unknown) Result panel 32 (unknown) (no (unknown) (unknown) (no value) (units (unk nown) date) unknown) (unknown) (no (unknown) (unknown) (no value) (units (unk nown) date) unknown) (unknown) (no (unknown) (unknown) Date of Service: (units (unknown) date) 03/20/22 unknown) (unknown) (no (unknown) (unknown) (no value) (units (unk nown) date) unknown) (unknown) (no (unknown) (unknown) ADDENDUM (units (u nknown) date) unknown) (unknown) (no (unknown) (unknown) - (units (unkno wn) date) unknown) (unknown) (no (unknown) (unknown) 03/20/22 04:40 (units (unknown) date) unknown) (unknown) (no (unknown) (unknown) 03/20/22 0740 (units ( unknown) date) unknown) (unknown) (no (unknown) (unknown) 03/20/22 2132 (units ( unknown) date) unknown) (unknown) (no (unknown) (unknown) 03/20/22 2135 (units ( unknown) date) unknown) (unknown) (no (unknown) (unknown) ABLE TO (units (unkno wn) date) unknown) (unknown) (no (unknown) (unknown) Allergies (units (unkn own) date) unknown) (unknown) (no (unknown) (unknown) History + (units (unkn own) date) Physical Report unknown) (unknown) (no (unknown) (unknown) Home Medications (units (unknown) date) unknown) (unknown) (no (unknown) (unknown) [facility] (units (unknown) date) [address] unknown) [place] [address] (unknown) (no (unknown) (unknown) Laboratory (units (unk nown) date) Results - last 24 unknown) hr (unknown) (no (unknown) (unknown) PT STATES (units (unkn own) date) unknown) (unknown) (no (unknown) (unknown) [facility]KE [facility] (units (unkno wn) date) unknown) (unknown) (no (unknown) (unknown) TO IV SITE (units (unk nown) date) unknown) (unknown) (no (unknown) (unknown) (no value) (units (unk nown) date) unknown) (unknown) (no (unknown) (unknown) 04:40 04:40 04:40 (units (unknown) date) unknown) (unknown) (no (unknown) (unknown) 05:30 05:44 05:45 (units (unknown) date) unknown) (unknown) (no (unknown) (unknown) 03/20/22 03/20/22 (units (unknown) date) 03/20/22 unknown) (unknown) (no (unknown) (unknown) 03/20/22 (units (unkno wn) date) unknown) (unknown) (no (unknown) (unknown) Medication (units (unk nown) date) Instructions unknown) Recorded Confirmed Type (unknown) (no (unknown) (unknown) documented. (units (un known) date) unknown) (unknown) (no (unknown) (unknown) rales, or (units (unkn own) date) rhonchi.? unknown) (unknown) (no (unknown) (unknown) sounds present in (units (unknown) date) all 4 quadrants unknown) (unknown) (no (unknown) (unknown) than 2 midnights (units (unknown) date) unknown) (unknown) (no (unknown) (unknown) to cyclic (units (unkn own) date) vomiting, unknown) resulting in SERGEY and hypokalemia. (unknown) (no (unknown) (unknown) vomiting #10 tabs (units (unknown) date) unknown) (unknown) (no (unknown) (unknown) (past 8 hours): (units (unknown) date) unknown) (unknown) (no (unknown) (unknown) -11/03/2021 GFR> (units (unknown) date) 60, creatinine unknown) 0.62-today creatinine 1.99 GFR 30 (unknown) (no (unknown) (unknown) -LR at 100 cc HR (units (unknown) date) for hydration unknown) (unknown) (no (unknown) (unknown) -Zofran Haldol (units (unknown) date) and Ativan to unknown) control vomiting (unknown) (no (unknown) (unknown) -abuse BC of 12 (units (unknown) date) neutrophils unknown) 10,000, mono feels 1000, lactate 2.2, ordered chest (unknown) (no (unknown) (unknown) -and has for (units (u nknown) date) hydration, ordered unknown) Mag, BMP lipase urine tox (unknown) (no (unknown) (unknown) -he etiology (units (u nknown) date) unknown suspected unknown) 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, though (unknown) (no (unknown) (unknown) -monitor labs (units ( unknown) date) unknown) (unknown) (no (unknown) (unknown) -patient NPO december (units (unknown) date) progress to clear unknown) liquids and advance as tolerated once (unknown) (no (unknown) (unknown) -potassium (units (unk nown) date) replacement unknown) ordered (unknown) (no (unknown) (unknown) -trend potassium (units (unknown) date) unknown) (unknown) (no (unknown) (unknown) 08/26/21 Rx (units (un known) date) unknown) (unknown) (no (unknown) (unknown) 04:13 (units (unkno wn) date) unknown) (unknown) (no (unknown) (unknown) 1. Cyclic (units (unkn own) date) vomiting, unknown) resulting in respiratory metabolic and respiratory (unknown) (no (unknown) (unknown) 10,000, monitor (units (unknown) date) feels 1000. unknown) Patient has SERGEY chloride 83, hypokalemia potassium (unknown) (no (unknown) (unknown) 2. SERGEY as a (units (un known) date) result of cyclic unknown) vomiting, with leukocytosis, acute, present on (unknown) (no (unknown) (unknown) 2.6, bicarb 33, (units (unknown) date) creatinine 1.99, unknown) glucose 142, GFR of 30. 11/03/2021 patient's (unknown) (no (unknown) (unknown) 213 (units (unkno wn) date) unknown) (unknown) (no (unknown) (unknown) 2135 (units (unkno wn) date) unknown) (unknown) (no (unknown) (unknown) [id number] (units (unkno wn) date) unknown) (unknown) (no (unknown) (unknown) 3. Hypokalemia, (units (unknown) date) acute, present on unknown) admission likely secondary to cyclic vomiting (unknown) (no (unknown) (unknown) ALT (units (unkno wn) date) unknown) (unknown) (no (unknown) (unknown) ALT 36 H (units (unkno wn) date) unknown) (unknown) (no (unknown) (unknown) ALT 36, ketones (units (unknown) date) are negative. unknown) Patient is admitted for cyclic nausea and (unknown) (no (unknown) (unknown) AST (units (unkno wn) date) unknown) (unknown) (no (unknown) (unknown) AST 39 H (units (unkno wn) date) unknown) (unknown) (no (unknown) (unknown) Abscess (units (unkno wn) date) unknown) (unknown) (no (unknown) (unknown) Addendum (units (unkno wn) date) Documented By: unknown) Kylee Arauz (unknown) (no (unknown) (unknown) Addendum Signed (units (unknown) date) By: unknown) <Electronically signed by Kylee LONGORIA Da (unknown) (no (unknown) (unknown) Age/Sex: 46 / F (units (unknown) date) unknown) (unknown) (no (unknown) (unknown) Albumin (units (unkno wn) date) unknown) (unknown) (no (unknown) (unknown) Albumin 5.8 H (units ( unknown) date) unknown) (unknown) (no (unknown) (unknown) Albumin/Globulin (units (unknown) date) Ratio unknown) (unknown) (no (unknown) (unknown) Albumin/Globulin (units (unknown) date) Ratio 1.1 unknown) (unknown) (no (unknown) (unknown) Alkaline (units (unkno wn) date) Phosphatase unknown) (unknown) (no (unknown) (unknown) Alkaline (units (unkno wn) date) Phosphatase 87 unknown) (unknown) (no (unknown) (unknown) All 12 point (units (un known) date) systems reviewed unknown) with the patient and are negative except otherwise (unknown) (no (unknown) (unknown) Allergy/AdvReac (units (unknown) date) Type Severity unknown) Reaction Status Date / Time (unknown) (no (unknown) (unknown) Assessment + Plan (units (unknown) date) unknown) (unknown) (no (unknown) (unknown) Assessment + Plan (units (unknown) date) narrative: unknown) (unknown) (no (unknown) (unknown) BACK: Nontender (units (unknown) date) without deformity unknown) or crepitance. No flank tenderness. (unknown) (no (unknown) (unknown) BUN (units (unkno wn) date) unknown) (unknown) (no (unknown) (unknown) BUN 22 H (units (unkno wn) date) unknown) (unknown) (no (unknown) (unknown) BUN/Creatinine (units (unknown) date) Ratio unknown) (unknown) (no (unknown) (unknown) BUN/Creatinine (units (unknown) date) Ratio 11.1 unknown) (unknown) (no (unknown) (unknown) Baso # (Auto) (units ( unknown) date) unknown) (unknown) (no (unknown) (unknown) Baso # (Auto) 0 (units (unknown) date) unknown) (unknown) (no (unknown) (unknown) Baso % (Auto) (units ( unknown) date) unknown) (unknown) (no (unknown) (unknown) Baso % (Auto) 0.4 (units (unknown) date) unknown) (unknown) (no (unknown) (unknown) Blood Pressure (units (unknown) date) 135/94 H unknown) (unknown) (no (unknown) (unknown) CARDIOVASCULAR: (units (unknown) date) Regular rate and unknown) rhythm without murmurs, gallops, or rubs. (unknown) (no (unknown) (unknown) COVID (units (unkno wn) date) PCR:Negative unknown) (unknown) (no (unknown) (unknown) Calcium (units (unkno wn) date) unknown) (unknown) (no (unknown) (unknown) Calcium 10.9 H (units (unknown) date) unknown) (unknown) (no (unknown) (unknown) Carbon Dioxide (units (unknown) date) unknown) (unknown) (no (unknown) (unknown) Carbon Dioxide 33 (units (unknown) date) H unknown) (unknown) (no (unknown) (unknown) Chief complaint: (units (unknown) date) Vomiting, SOB unknown) (unknown) (no (unknown) (unknown) Chloride (units (o wn) date) unknown) (unknown) (no (unknown) (unknown) Chloride 83 L (units ( unknown) date) unknown) (unknown) (no (unknown) (unknown) Chronic abdominal (units (unknown) date) pain unknown) (unknown) (no (unknown) (unknown) Code status: Full (units (unknown) date) unknown) (unknown) (no (unknown) (unknown) Creatinine (units () date) unknown) (unknown) (no (unknown) (unknown) Creatinine 1.99 H (units (unknown) date) unknown) (unknown) (no (unknown) (unknown) Critical Care (units ( unknown) date) time: unknown) (unknown) (no (unknown) (unknown) Cyclic vomiting (units (unknown) date) syndrome unknown) (unknown) (no (unknown) (unknown) : 1975 (units (unknown) date) Acct:[id number] unknown) (unknown) (no (unknown) (unknown) DVT/VTE (units (o wn) date) prophylaxis: unknown) Lovenox and SCDs (unknown) (no (unknown) (unknown) Date Patient (units (u w) date) Seen: 03/20/22 unknown) (unknown) (no (unknown) (unknown) Daughter (units (o wn) date) Angio-edema unknown) (unknown) (no (unknown) (unknown) Disposition: (units (u ) date) Patient admitted unknown) for observation hydration and correction SERGEY (unknown) (no (unknown) (unknown) Dr. Pinzon (units () date) anesthesiology unknown) notified at 9:34 p.m. (unknown) (no (unknown) (unknown) ENT:? Dry mucous (units (unknown) date) membranes Nose unknown) without bleeding, purulent drainage. Throat (unknown) (no (unknown) (unknown) EXTREMITIES: No (units (unknown) date) edema or joint unknown) tenderness. (unknown) (no (unknown) (unknown) EYES: Pupils (units (u nknown) date) equal round and unknown) reactive. Extraocular motions intact. No scleral (unknown) (no (unknown) (unknown) Environment (units (un known) date) unknown) (unknown) (no (unknown) (unknown) Eos # (Auto) (units (u nknown) date) unknown) (unknown) (no (unknown) (unknown) Eos # (Auto) 0 (units (unknown) date) unknown) (unknown) (no (unknown) (unknown) Eos % (Auto) (units (u nknown) date) unknown) (unknown) (no (unknown) (unknown) Eos % (Auto) 0.0 (units (unknown) date) L unknown) (unknown) (no (unknown) (unknown) Estimated GFR (units ( unknown) date) unknown) (unknown) (no (unknown) (unknown) Estimated GFR 30 (units (unknown) date) L unknown) (unknown) (no (unknown) (unknown) Exam (units (unkno wn) date) unknown) (unknown) (no (unknown) (unknown) Exam Narrative: (units (unknown) date) unknown) (unknown) (no (unknown) (unknown) Family + Social (units (unknown) date) History unknown) (unknown) (no (unknown) (unknown) Family History (units (unknown) date) (Reviewed 03/20/22 unknown) @ 06:52 by MATHEUS Ann) (unknown) (no (unknown) (unknown) Family history of (units (unknown) date) angioedema unknown) (unknown) (no (unknown) (unknown) Father (units (unkno wn) date) Hypertension unknown) (unknown) (no (unknown) (unknown) Feels Safe in (units ( unknown) date) Current Yes unknown) (unknown) (no (unknown) (unknown) GASTROINTESTINAL: (units (unknown) date) Abdomen soft, unknown) generalized abdominal pain, nondistended.? Bowel (unknown) (no (unknown) (unknown) GENERAL: [46] (units ( unknown) date) year old patient unknown) appears stated age. Well-developed patient, in (unknown) (no (unknown) (unknown) GFR>60, creatinine (units (unknown) date) 0.62. Patient's unknown) total protein 11, globulin 5.2, albumin 5.8, (unknown) (no (unknown) (unknown) Globulin (units (unkno wn) date) unknown) (unknown) (no (unknown) (unknown) Globulin 5.2 H (units (unknown) date) unknown) (unknown) (no (unknown) (unknown) Glucose (units (unkno wn) date) unknown) (unknown) (no (unknown) (unknown) Glucose 142 H (units ( unknown) date) unknown) (unknown) (no (unknown) (unknown) HEAD: Atraumatic. (units (unknown) date) Normocephalic. unknown) (unknown) (no (unknown) (unknown) Hct (units (unkno wn) date) unknown) (unknown) (no (unknown) (unknown) Hct 44.5 (units (unkno wn) date) unknown) (unknown) (no (unknown) (unknown) Hgb (units (unkno wn) date) unknown) (unknown) (no (unknown) (unknown) Hgb 15.3 (units (unkno wn) date) unknown) (unknown) (no (unknown) (unknown) History of (units (unk nown) date) Present Illness unknown) (unknown) (no (unknown) (unknown) Home Medications (units (unknown) date) and Allergies unknown) (unknown) (no (unknown) (unknown) Hx of (units (o wn) date) appendectomy unknown) (unknown) (no (unknown) (unknown) Hx of (units (unkno wn) date) cholecystectomy unknown) (unknown) (no (unknown) (unknown) I confirmed that (units (unknown) date) the patient's unknown) advanced care plan is present, Code status is (unknown) (no (unknown) (unknown) I have utilized (units (unknown) date) all available unknown) immediate resources to obtain, update, or review (unknown) (no (unknown) (unknown) I spent a total (units (unknown) date) of [] minutes of unknown) critical care time on this patient's care (unknown) (no (unknown) (unknown) Ketones (units (unkno wn) date) unknown) (unknown) (no (unknown) (unknown) Ketones 0.17 (units (u nknown) date) unknown) (unknown) (no (unknown) (unknown) Labs (units (unkno wn) date) unknown) (unknown) (no (unknown) (unknown) Labs: (units (unkno wn) date) unknown) (unknown) (no (unknown) (unknown) Lactate (units (unkno wn) date) unknown) (unknown) (no (unknown) (unknown) Lactate 2.2 H (units ( unknown) date) unknown) (unknown) (no (unknown) (unknown) Lymph # (Auto) (units (unknown) date) unknown) (unknown) (no (unknown) (unknown) Lymph # (Auto) (units (unknown) date) 1000 L unknown) (unknown) (no (unknown) (unknown) Lymph % (Auto) (units (unknown) date) unknown) (unknown) (no (unknown) (unknown) Lymph % (Auto) (units (unknown) date) 8.1 L unknown) (unknown) (no (unknown) (unknown) MCH (units (unkno wn) date) unknown) (unknown) (no (unknown) (unknown) MCH 31.6 (units (unkno wn) date) unknown) (unknown) (no (unknown) (unknown) MCHC (units (unkno wn) date) unknown) (unknown) (no (unknown) (unknown) MCHC 34.4 (units (unkn own) date) unknown) (unknown) (no (unknown) (unknown) MCV (units (unkno wn) date) unknown) (unknown) (no (unknown) (unknown) MCV 91.7 (units (unkno wn) date) unknown) (unknown) (no (unknown) (unknown) 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 (unknown) (no (unknown) (unknown) Marijuana use, (units (unknown) date) continuous unknown) (unknown) (no (unknown) (unknown) Medical History (units (unknown) date) (Reviewed 03/20/22 unknown) @ 06:52 by MATHEUS Ann) (unknown) (no (unknown) (unknown) Meds (units (unkno wn) date) unknown) (unknown) (no (unknown) (unknown) Dameon Castro is a (units (unknown) date) 46-year-old female unknown) with history of cyclic vomiting and (unknown) (no (unknown) (unknown) Centre # (Auto) (units ( unknown) date) unknown) (unknown) (no (unknown) (unknown) Centre # (Auto) (units ( unknown) date) 1000 H unknown) (unknown) (no (unknown) (unknown) Centre % (Auto) (units ( unknown) date) unknown) (unknown) (no (unknown) (unknown) Centre % (Auto) 8.3 (units (unknown) date) unknown) (unknown) (no (unknown) (unknown) Mother Diabetes (units (unknown) date) mellitus unknown) (unknown) (no (unknown) (unknown) NECK: Trachea (units ( unknown) date) midline. Non unknown) tender (unknown) (no (unknown) (unknown) NEURO: AOx3. (units (u nknown) date) unknown) (unknown) (no (unknown) (unknown) Narrative (units (unkn own) date) unknown) (unknown) (no (unknown) (unknown) Narrative: (units (unk nown) date) unknown) (unknown) (no (unknown) (unknown) Neut # (Auto) (units ( unknown) date) unknown) (unknown) (no (unknown) (unknown) Neut # (Auto) (units ( unknown) date) 18565 H unknown) (unknown) (no (unknown) (unknown) Neut % (Auto) (units ( unknown) date) unknown) (unknown) (no (unknown) (unknown) Neut % (Auto) (units ( unknown) date) 83.2 H unknown) (unknown) (no (unknown) (unknown) Objective (units (unkn own) date) unknown) (unknown) (no (unknown) (unknown) On admit patient (units (unknown) date) presents afebrile unknown) temp 98.5?, BP 135/94, HR 99, RR 18, O2 (unknown) (no (unknown) (unknown) Other Colon (units (un known) date) cancer unknown) (unknown) (no (unknown) (unknown) Oxygen Delivery (units (unknown) date) Method Room Air unknown) (unknown) (no (unknown) (unknown) Oxygen Delivery (units (unknown) date) Method Room Air unknown) (unknown) (no (unknown) (unknown) Pancreatitis (units (u nknown) date) unknown) (unknown) (no (unknown) (unknown) Patient History (units (unknown) date) unknown) (unknown) (no (unknown) (unknown) Patient presented (units (unknown) date) with angioedema at unknown) approximately 3:00 p.m. 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 unknown) Breath sounds equal bilaterally. No wheezes, (unknown) (no (unknown) (unknown) Respiratory Rate (units (unknown) date) 18 unknown) (unknown) (no (unknown) (unknown) Result Diagrams: (units (unknown) date) unknown) (unknown) (no (unknown) (unknown) Review of Systems (units (unknown) date) unknown) (unknown) (no (unknown) (unknown) SARS-CoV-2 (PCR) (units (unknown) date) unknown) (unknown) (no (unknown) (unknown) SARS-CoV-2 (PCR) (units (unknown) date) Negative unknown) (unknown) (no (unknown) (unknown) SKIN: No rash or (units (unknown) date) erythema of unknown) visible areas (unknown) (no (unknown) (unknown) Safety + (units (unkno wn) date) Behavioral: unknown) (unknown) (no (unknown) (unknown) Signed (units (unkno wn) date) By:<Electronically unknown) signed by Kylee Arauz> (unknown) (no (unknown) (unknown) Smoking Status (units (unknown) date) Current every day unknown) smoker (unknown) (no (unknown) (unknown) Social History: (units (unknown) date) unknown) (unknown) (no (unknown) (unknown) Sodium (units (unkno wn) date) unknown) (unknown) (no (unknown) (unknown) Sodium 142 (units (unk nown) date) unknown) (unknown) (no (unknown) (unknown) Substance Use (units ( unknown) date) Type marijuana unknown) (unknown) (no (unknown) (unknown) Surgical History (units (unknown) date) (Reviewed 03/20/22 unknown) @ 06:52 by SWATI Ann) (unknown) (no (unknown) (unknown) Surrogate (units (unkn own) date) decision maker: unknown) Chandra Chandler (unknown) (no (unknown) (unknown) Temperature 98.5 (units (unknown) date) F unknown) (unknown) (no (unknown) (unknown) Time Patient (units (u nknown) date) Seen: 06:47 unknown) (unknown) (no (unknown) (unknown) Time Spent With (units (unknown) date) Patient unknown) (unknown) (no (unknown) (unknown) Tobacco + (units (unkn own) date) Substance use: unknown) (unknown) (no (unknown) (unknown) Total Bilirubin (units (unknown) date) unknown) (unknown) (no (unknown) (unknown) Total Bilirubin (units (unknown) date) 1.7 H unknown) (unknown) (no (unknown) (unknown) Total Protein (units ( unknown) date) unknown) (unknown) (no (unknown) (unknown) Total Protein (units ( unknown) date) 11.0 H unknown) (unknown) (no (unknown) (unknown) VBG Base Excess (units (unknown) date) unknown) (unknown) (no (unknown) (unknown) VBG Base Excess (units (unknown) date) 23.0 H unknown) (unknown) (no (unknown) (unknown) VBG HCO3 (units (unkno wn) date) unknown) (unknown) (no (unknown) (unknown) VBG HCO3 44 H (units ( unknown) date) unknown) (unknown) (no (unknown) (unknown) VBG O2 Saturation (units (unknown) date) unknown) (unknown) (no (unknown) (unknown) VBG O2 Saturation (units (unknown) date) 91 H unknown) (unknown) (no (unknown) (unknown) VBG Total CO2 (units ( unknown) date) unknown) (unknown) (no (unknown) (unknown) VBG Total CO2 46 (units (unknown) date) H unknown) (unknown) (no (unknown) (unknown) VBG pCO2 (units (unkno wn) date) unknown) (unknown) (no (unknown) (unknown) VBG pCO2 45.0 (units ( unknown) date) unknown) (unknown) (no (unknown) (unknown) VBG pH (units (unkno wn) date) unknown) (unknown) (no (unknown) (unknown) VBG pH 7.60 H (units ( unknown) date) unknown) (unknown) (no (unknown) (unknown) VBG pO2 (units (unkno wn) date) unknown) (unknown) (no (unknown) (unknown) VBG pO2 52 H (units (u nknown) date) unknown) (unknown) (no (unknown) (unknown) Vital Signs (units (un known) date) unknown) (unknown) (no (unknown) (unknown) WBC (units (unkno wn) date) unknown) (unknown) (no (unknown) (unknown) WBC 12.0 H (units (unk nown) date) unknown) (unknown) (no (unknown) (unknown) [Embedded Image (units (unknown) date) Not Available] unknown) (unknown) (no (unknown) (unknown) [METOCLOPRAMIDE] (units (unknown) date) unknown) (unknown) (no (unknown) (unknown) abdominal (units (unkno wn) date) migraines being unknown) admitted for respiratory metabolic alkalosis secondary (unknown) (no (unknown) (unknown) abdominal (units (unkn own) date) migraines presents unknown) under similar circumstances complaining of (unknown) (no (unknown) (unknown) admission (units (unkn own) date) unknown) (unknown) (no (unknown) (unknown) alcohol intake (units (unknown) date) frequency 3 or unknown) more drinks per day (unknown) (no (unknown) (unknown) alkalosis, acute, (units (unknown) date) present on unknown) admission (unknown) (no (unknown) (unknown) alkalosis- VBG is (units (unknown) date) pH 7.6, CO2 45, unknown) PO2 52, HC03 44, O2 saturation 91%, base (unknown) (no (unknown) (unknown) anesthesiology. (units (unknown) date) Patient's airway unknown) is patent in she is in no respiratory distress (unknown) (no (unknown) (unknown) at this time and (units (unknown) date) is stable. Will unknown) monitor patient closely. (unknown) (no (unknown) (unknown) blocking agents. (units (unknown) date) At approximately unknown) 9:30 p.m. ordered Tranexamic Acid 1gram now - (unknown) (no (unknown) (unknown) bowel or bladder (units (unknown) date) issues, recent unknown) illness injury or trauma. Patient does endorse (unknown) (no (unknown) (unknown) documented and/or (units (unknown) date) surrogate decision unknown) maker is listed in the patient's medical (unknown) (no (unknown) (unknown) excess 23 patient (units (unknown) date) does have a white unknown) count of 12 with a left shift neutrophils (unknown) (no (unknown) (unknown) generalized (units (un known) date) abdominal pain and unknown) frequent vomiting over the past 2 days despite (unknown) (no (unknown) (unknown) given secondary (units (unknown) date) dose of unknown) Solu-Medrol 60mg demonstrating resistant to histamine (unknown) (no (unknown) (unknown) her hands which is (units (unknown) date) not normal for unknown) her.? She denies any new medications or change (unknown) (no (unknown) (unknown) household members (units (unknown) date) spouse unknown) (unknown) (no (unknown) (unknown) icterus. No (units (un known) date) injection or unknown) drainage. (unknown) (no (unknown) (unknown) in her diet.? She (units (unknown) date) denies any recent unknown) travel. Patient denies chest pain, (unknown) (no (unknown) (unknown) lactate 2.2 (units (un known) date) patient has a gap unknown) of 26, calcium is 10.9, total bili 1.7, AST 39, (unknown) (no (unknown) (unknown) latex [LATEX] (units ( unknown) date) Allergy Unknown unknown) Verified 11/02/21 15:46 (unknown) (no (unknown) (unknown) lorazepam 0.5 mg (units (unknown) date) tablet (Ativan) unknown) 0.5 mg PO DAILY PRN nausea and 11/03/21 Rx (unknown) (no (unknown) (unknown) metoclopramide (units (unknown) date) AdvReac Unknown unknown) DYSTONIA Verified 11/02/21 15:46 (unknown) (no (unknown) (unknown) moderate (units (unkno wn) date) distress, lying on unknown) her side holding an emesis bag, clearly feeling (unknown) (no (unknown) (unknown) not resolve she (units (unknown) date) was given unknown) Solu-Medrol 60mg, symptoms still did not resolve was (unknown) (no (unknown) (unknown) ondansetron 4 mg (units (unknown) date) disintegrating 4 unknown) mg PO Q8H PRN nausea and 07/28/19 08/26/21 Rx (unknown) (no (unknown) (unknown) ondansetron 8 mg (units (unknown) date) disintegrating 8 unknown) mg PO TID PRN Nausea 09/18/19 08/26/21 History (unknown) (no (unknown) (unknown) patient may have (units (unknown) date) a underlying unknown) infectious disease process as well. (unknown) (no (unknown) (unknown) patient was given (units (unknown) date) initial doses of unknown) Benadryl and epinephrine when symptoms did (unknown) (no (unknown) (unknown) promethazine (units (u nknown) date) [PROMETHAZINE] unknown) Allergy Mild ERYTHEMA Verified 08/26/21 15:49 (unknown) (no (unknown) (unknown) recent illness, (units (unknown) date) or exposure, blood unknown) in her vomit, blood in urine blood in stool, (unknown) (no (unknown) (unknown) record. (units (unkno wn) date) unknown) (unknown) (no (unknown) (unknown) respiratory and (units (unknown) date) metabolic unknown) alkalosis and hypokalemia expected length of stay less (unknown) (no (unknown) (unknown) saturation 100% (units (unknown) date) on room air. unknown) Patient presents with respiratory and metabolic (unknown) (no (unknown) (unknown) shortness of (units (u nknown) date) breath, upper unknown) respiratory symptoms, fever, body aches, chills, (unknown) (no (unknown) (unknown) spray headache #1 (units (unknown) date) ea unknown) (unknown) (no (unknown) (unknown) states that over (units (unknown) date) the course of the unknown) day she is developed cramping and tingling in (unknown) (no (unknown) (unknown) sumatriptan 5 (units ( unknown) date) mg/actuation nasal unknown) 5 mg intranasal Q2-4H PRN migraine 06/04/21 (unknown) (no (unknown) (unknown) tablet (units (unkno wn) date) unknown) (unknown) (no (unknown) (unknown) tablet vomiting (units (unknown) date) #10 tabs unknown) (unknown) (no (unknown) (unknown) the patient's (units ( unknown) date) current unknown) medications. (unknown) (no (unknown) (unknown) the use of her (units (unknown) date) home Zofran and unknown) suppository.? She has terrible appetite and (unknown) (no (unknown) (unknown) today; this time (units (unknown) date) is exclusive of unknown) procedural time. (unknown) (no (unknown) (unknown) unwell (units (unkno wn) date) unknown) (unknown) (no (unknown) (unknown) urinary urgency (units (unknown) date) and frequency. unknown) (unknown) (no (unknown) (unknown) vidson> 03/20/22 (units (unknown) date) unknown) (unknown) (no (unknown) (unknown) vomiting has (units (u nknown) date) ceased. unknown) (unknown) (no (unknown) (unknown) vomiting with (units ( unknown) date) respiratory unknown) metabolic alkalosis, SERGEY and hypokalemia. (unknown) (no (unknown) (unknown) will evaluate (units ( unknown) date) response. Consult unknown) Dr. Soto in ED, and will notify (unknown) (no (unknown) (unknown) without erythema, (units (unknown) date) tonsillar unknown) hypertrophy or exudate. Airway patent. (unknown) (no (unknown) (unknown) x-ray and UA (units (u nknown) date) unknown) Result panel 33 (unknown) (no (unknown) (unknown) (no value) (units (unk nown) date) unknown) (unknown) (no (unknown) (unknown) [address] [place] [address] (units (unknown) date) unknown) (unknown) (no (unknown) (unknown) sev ratio: 0.93 (units (unknown) date) unknown) (unknown) (no (unknown) (unknown) [place], [place] (units ( unknown) date) [id number] unknown) (unknown) (no (unknown) (unknown) Echocardiogram (units (unknown) date) Report unknown) (unknown) (no (unknown) (unknown) Echocardiography (units (unknown) date) Report unknown) (unknown) (no (unknown) (unknown) Electronically (units (unknown) date) signed by: Michael Hawthorne unknown) Cathy Babb on 03/21/2022 (unknown) (no (unknown) (unknown) [place] (units (unkno wn) date) unknown) (unknown) (no (unknown) (unknown) [facility] (units (unknown) date) unknown) (unknown) (no (unknown) (unknown) Signed (units (unkno wn) date) unknown) (unknown) (no (unknown) (unknown) (no value) (units (unk nown) date) unknown) (unknown) (no (unknown) (unknown) +---------+ (units (un known) date) [phone] unknown) +---------+ (unknown) (no (unknown) (unknown) +---------+ (units (un known) date) Hospital unknown) +---------+ (unknown) (no (unknown) (unknown) + (units (unknown) date) unknown) ---+ (unknown) (no (unknown) (unknown) 03/21/22 (units (unkno wn) date) unknown) (unknown) (no (unknown) (unknown) : : 1211 (units (unknown) date) : : unknown) (unknown) (no (unknown) (unknown) : : [address] : : (units ( unknown) date) unknown) (unknown) (no (unknown) (unknown) : : FABIOLA Beasley (units (unknown) date) : : unknown) (unknown) (no (unknown) (unknown) : : Phone: [phone] : (units (unknown) date) : unknown) (unknown) (no (unknown) (unknown) :Account #: (units (un known) date) [id number] Gender: unknown) Female BSA: 1.8 m2 : (unknown) (no (unknown) (unknown) :: 1975 (units (unknown) date) Age: 46 yrs BP: unknown) 108/67 mmHg: (unknown) (no (unknown) (unknown) :Hospital MRN #: (units (unknown) date) [id number] unknown) ReadingLocation: Weight: 142 lb : (unknown) (no (unknown) (unknown) :KYLEE Performed (units (unknown) date) By: Lynda Yeager : unknown) (unknown) (no (unknown) (unknown) :Name: HARSHAL, (units (unknown) date) DAMEON Rodrigues Study Date: unknown) 03/21/2022 Height: 70 in : (unknown) (no (unknown) (unknown) :Ordering (units (unkn own) date) Physician: unknown) DAVONTE, : (unknown) (no (unknown) (unknown) :Reason For Study: (units (unknown) date) ELEVATED BNP, unknown) SERGEY-CHF : (unknown) (no (unknown) (unknown) :Referring: (units (un known) date) KYLEE ARAUZ : unknown) (unknown) (no (unknown) (unknown) Ao V2 VTI: 29.4 cm (units (unknown) date) STELLA(V,D): 4.5 cm2 unknown) (unknown) (no (unknown) (unknown) Ao V2 max: 139.9 (units (unknown) date) cm/sec LVOT Max unknown) Stanley: 138.4 cm/sec (unknown) (no (unknown) (unknown) Ao V2 mean: 99.2 (units (unknown) date) cm/sec LV V1 max unknown) P.7 mmHg (unknown) (no (unknown) (unknown) Ao max P.8 (units (unknown) date) mmHg LV V1 VTI: unknown) 27.3 cm (unknown) (no (unknown) (unknown) Ao mean P.4 (units (unknown) date) mmHg STELLA(I,D): 4.2 unknown) cm2 (unknown) (no (unknown) (unknown) Aortic Valve: The (units (unknown) date) aortic valve is unknown) trileaflet. The aortic valve opens well. (unknown) (no (unknown) (unknown) Atria: The left (units (unknown) date) atrium is mildly unknown) dilated. Right atrial size is normal. There (unknown) (no (unknown) (unknown) Doppler (units (unkno wn) date) Measurements + unknown) Calculations (unknown) (no (unknown) (unknown) E/E' lat: 5.1 (units ( unknown) date) unknown) (unknown) (no (unknown) (unknown) E/E' med: 5.8 PA (units (unknown) date) mean P.2 mmHg unknown) (unknown) (no (unknown) (unknown) E/e' average: 5.4 (units (unknown) date) unknown) (unknown) (no (unknown) (unknown) FS: 36.2 % asc (units (unknown) date) Aorta Diam: 3.2 cm unknown) (unknown) (no (unknown) (unknown) Great Vessels: The (units (unknown) date) aortic root is unknown) normal size. The dimensions of the (unknown) (no (unknown) (unknown) IVSd: 0.94 cm (units ( unknown) date) unknown) (unknown) (no (unknown) (unknown) Interpretation (units (unknown) date) Summary unknown) (unknown) (no (unknown) (unknown) LA A2 area: 18.0 (units (unknown) date) cm2 RA long axis: unknown) 4.5 cm (unknown) (no (unknown) (unknown) LA A4 area: 19.9 (units (unknown) date) cm2 RA area: 13.6 unknown) cm2 (unknown) (no (unknown) (unknown) LA length (vol): (units (unknown) date) 4.8 cm RA vol: 34.9 unknown) ml (unknown) (no (unknown) (unknown) LA vol index: 35.3 (units (unknown) date) ml/m2 IVC diam: 2.1 unknown) cm (unknown) (no (unknown) (unknown) LA vol: 63.7 ml RA (units (unknown) date) : 19.3 ml/m2 unknown) (unknown) (no (unknown) (unknown) LVIDd: 4.4 cm LVOT (units (unknown) date) diam: 2.4 cm unknown) (unknown) (no (unknown) (unknown) LVIDs: 2.8 cm Ao (units (unknown) date) root diam: 3.9 cm unknown) (unknown) (no (unknown) (unknown) LVPWd: 0.77 cm (units (unknown) date) unknown) (unknown) (no (unknown) (unknown) Lat Peak E' Stanley: (units (unknown) date) 12.9 cm/sec PA unknown) pr(Accel): 25.9 mmHg (unknown) (no (unknown) (unknown) Left Ventricle: (units (unknown) date) The left ventricle unknown) is normal in size and wall thickness. The (unknown) (no (unknown) (unknown) MMode/2D (units (unkno wn) date) Measurements + unknown) Calculations (unknown) (no (unknown) (unknown) MV A max stanley: 53.9 (units (unknown) date) cm/sec TR max PG: unknown) 14.1 mmHg (unknown) (no (unknown) (unknown) MV E max stanley: 65.1 (units (unknown) date) cm/sec TR max stanley: unknown) 185.1 cm/sec (unknown) (no (unknown) (unknown) MV E/A: 1.2 PA V2 (units (unknown) date) max: 99.2 cm/sec unknown) (unknown) (no (unknown) (unknown) MV dec time: 0.29 (units (unknown) date) sec unknown) (unknown) (no (unknown) (unknown) Med Peak E' Stanley: (units (unknown) date) 11.2 cm/sec PA V2 unknown) mean: 69.5 cm/sec (unknown) (no (unknown) (unknown) Mitral Valve: The (units (unknown) date) mitral valve is unknown) normal in structure and function. There is (unknown) (no (unknown) (unknown) Pericardium/ (units (u nknown) date) Pleura There is no unknown) pericardial effusion. There is no pleural (unknown) (no (unknown) (unknown) Procedure: A (units (u nknown) date) two-dimensional unknown) transthoracic echocardiogram with color flow (unknown) (no (unknown) (unknown) Pulmonic Valve: (units (unknown) date) The pulmonic valve unknown) leaflets are thin and pliable; valve (unknown) (no (unknown) (unknown) RVD1 (basal): 3.5 (units (unknown) date) cm unknown) (unknown) (no (unknown) (unknown) RVD2 (mid): 2.5 cm (units (unknown) date) unknown) (unknown) (no (unknown) (unknown) Reading (units (unkno wn) date) Physician:12:19 PM unknown) (unknown) (no (unknown) (unknown) Right Ventricle: (units (unknown) date) The right ventricle unknown) is normal in size and function. (unknown) (no (unknown) (unknown) SV(LVOT): 122.7 ml (units (unknown) date) unknown) (unknown) (no (unknown) (unknown) TAPSE: 2.2 cm (units ( unknown) date) unknown) (unknown) (no (unknown) (unknown) The ejection (units (u nknown) date) fraction is unknown) estimated to be 55-60%. (unknown) (no (unknown) (unknown) The left ventricle (units (unknown) date) appears normal in unknown) size, wall thickness, and systolic (unknown) (no (unknown) (unknown) The right (units (unkn own) date) ventricle is normal unknown) in size and function. (unknown) (no (unknown) (unknown) The right (units (unkn own) date) ventricular unknown) systolic pressure is estimated to be at least 22 mmHg (unknown) (no (unknown) (unknown) There are no focal (units (unknown) date) wall motion unknown) abnormalities. (unknown) (no (unknown) (unknown) There is mild (units ( unknown) date) tricuspid unknown) regurgitation. (unknown) (no (unknown) (unknown) There is mild (units ( unknown) date) tricuspid unknown) regurgitation. The right ventricular systolic pressure (unknown) (no (unknown) (unknown) There is no aortic (units (unknown) date) valve stenosis. No unknown) aortic regurgitation is present. (unknown) (no (unknown) (unknown) Tricuspid Valve: (units (unknown) date) The tricuspid valve unknown) is normal in structure and function. (unknown) (no (unknown) (unknown) (units (unknown) date) unknown) ___ (unknown) (no (unknown) (unknown) abnormalities. (units (unknown) date) Diastolic unknown) parameters suggest probable normal left ventricular (unknown) (no (unknown) (unknown) and Doppler was (units (unknown) date) performed. The unknown) study quality was technically adequate. There (unknown) (no (unknown) (unknown) ascending aorta (units (unknown) date) are normal. The IVC unknown) is dilated (diameter is greater than 2.1 (unknown) (no (unknown) (unknown) atrial pressure of (units (unknown) date) 8 mm Hg. unknown) (unknown) (no (unknown) (unknown) based on an (units (un known) date) estimated right unknown) atrial pressure of 8 mm Hg. (unknown) (no (unknown) (unknown) cm) yet it (units (unk nown) date) collapses greater unknown) than 50% with a sniff. This suggests a right (unknown) (no (unknown) (unknown) diastolic function (units (unknown) date) and normal filling unknown) pressures. (unknown) (no (unknown) (unknown) effusion. (units (unkn own) date) unknown) (unknown) (no (unknown) (unknown) ejection fraction (units (unknown) date) is estimated to be unknown) 55-60%. There are no focal wall motion (unknown) (no (unknown) (unknown) function without (units (unknown) date) any focal wall unknown) motion abnormalities. (unknown) (no (unknown) (unknown) is estimated to be (units (unknown) date) at least 22 mmHg unknown) based on an estimated right atrial (unknown) (no (unknown) (unknown) is no Doppler (units ( unknown) date) evidence for an unknown) interatrial shunt. (unknown) (no (unknown) (unknown) is no prior (units (un known) date) echocardiogram unknown) noted for this patient. The patient was in sinus (unknown) (no (unknown) (unknown) left ventricle (units (unknown) date) appears normal in unknown) size, wall thickness, and systolic function (unknown) (no (unknown) (unknown) motion is normal. (units (unknown) date) There is no unknown) pulmonic valvular regurgitation. (unknown) (no (unknown) (unknown) pressure of 8 mm (units (unknown) date) Hg. unknown) (unknown) (no (unknown) (unknown) rhythm with heart (units (unknown) date) rates between 60-75 unknown) bpm during the exam. (unknown) (no (unknown) (unknown) trace mitral (units (u nknown) date) regurgitation. unknown) (unknown) (no (unknown) (unknown) without any focal (units (unknown) date) wall motion unknown) abnormalities. There is no thrombus. The (unknown) (no (unknown) (unknown) [id number] (units (unkno wn) date) unknown) (unknown) (no (unknown) (unknown) Accession Number: (units (unknown) date) [id number] unknown) (unknown) (no (unknown) (unknown) Age/Sex: 46 / F (units (unknown) date) Date of Service: unknown) (unknown) (no (unknown) (unknown) : 1975 (units (unknown) date) Acct:[id number] unknown) (unknown) (no (unknown) (unknown) GenericComposite[ (units (unknown) date) STELLA indexed to BSA unknown) (cm^2/m^2): 2.3 ] (unknown) (no (unknown) (unknown) GenericComposite[ (units (unknown) date) LV george. unknown) diameter/BSA (cm/m^2): 2.4 ] (unknown) (no (unknown) (unknown) GenericComposite[ (units (unknown) date) LV sys. unknown) diameter/BSA (cm/m^2): 1.5 ] (unknown) (no (unknown) (unknown) Loc: 215-1 (units ( unknown) date) unknown) (unknown) (no (unknown) (unknown) Ordering Provider: (units (unknown) date) Kylee Arauz unknown) METALL[employer] TECHNICIAN-BC (unknown) (no (unknown) (unknown) Patient: (units (unkno wn) date) Dameon Castro MR#: unknown) M000 (unknown) (no (unknown) (unknown) Procedure: EC echo (units (unknown) date) doppler complete unknown) Result panel 34 (unknown) (no date) (unknown) (unknown) 0 /uL (unkn own) (unknown) (no date) (unknown) (unknown) 0 /uL (unkn own) (unknown) (no date) (unknown) (unknown) 0.0 % (unkn own) (unknown) (no date) (unknown) (unknown) 0.3 % (unkn own) (unknown) (no date) (unknown) (unknown) 13.1 g/dL (unkn own) (unknown) (no date) (unknown) (unknown) 13.3 % (unkn own) (unknown) (no date) (unknown) (unknown) 13.9 % (unkn own) (unknown) (no date) (unknown) (unknown) 200 /uL (unkn own) (unknown) (no date) (unknown) (unknown) 224 X10 3/uL (unkn own) (unknown) (no date) (unknown) (unknown) 3.4 % (unkn own) (unknown) (no date) (unknown) (unknown) 31.5 PG (unkn own) (unknown) (no date) (unknown) (unknown) 33.8 % (unkn own) (unknown) (no date) (unknown) (unknown) 38.8 % (unkn own) (unknown) (no date) (unknown) (unknown) 4.17 X10 6/uL (unkn own) (unknown) (no date) (unknown) (unknown) 4400 /uL (unkn own) (unknown) (no date) (unknown) (unknown) 5.4 X10 3/uL (unkn own) (unknown) (no date) (unknown) (unknown) 700 /uL (unkn own) (unknown) (no date) (unknown) (unknown) 82.4 % (unkn own) (unknown) (no date) (unknown) (unknown) 92.9 fL (unkn own) Result panel 35 (unknown) (no date) (unknown) (unknown) > 60 mL/min (unkn own) (unknown) (no date) (unknown) (unknown) 1.03 mg/dL (unkn own) (unknown) (no date) (unknown) (unknown) 1.3 (units unknown) (unknown) (unknown) (no date) (unknown) (unknown) 1.5 mg/dL (unkn own) (unknown) (no date) (unknown) (unknown) 136 mmol/L (unkn own) (unknown) (no date) (unknown) (unknown) 15 IU/L (unkn own) (unknown) (no date) (unknown) (unknown) 161 mg/dL (unkn own) (unknown) (no date) (unknown) (unknown) 19.4 (units unknown) (unknown) (unknown) (no date) (unknown) (unknown) 20 mg/dL (unkn own) (unknown) (no date) (unknown) (unknown) 26 IU/L (unkn own) (unknown) (no date) (unknown) (unknown) 3.0 mmol/L (unkn own) (unknown) (no date) (unknown) (unknown) 3.5 g/dL (unkn own) (unknown) (no date) (unknown) (unknown) 33 mmol/L (unkn own) (unknown) (no date) (unknown) (unknown) 4.4 g/dL (unkn own) (unknown) (no date) (unknown) (unknown) 65 U/L (unkn own) (unknown) (no date) (unknown) (unknown) 7.9 g/dL (unkn own) (unknown) (no date) (unknown) (unknown) 8.9 mg/dL (unkn own) (unknown) (no date) (unknown) (unknown) 92 mmol/L (unkn own) Result panel 36 (unknown) (no date) (unknown) (unknown) No growth. (units (un known) unknown) Result panel 37 (unknown) (no (unknown) (unknown) (no value) (units (unk nown) date) unknown) (unknown) (no (unknown) (unknown) Date of Service: (units (unknown) date) 03/20/22 unknown) (unknown) (no (unknown) (unknown) (no value) (units (unk nown) date) unknown) (unknown) (no (unknown) (unknown) - (units (unkno wn) date) unknown) (unknown) (no (unknown) (unknown) 03/21/22 06:17 (units (unknown) date) unknown) (unknown) (no (unknown) (unknown) [facility] (units (unknown) date) [address] unknown) [place] [address] (unknown) (no (unknown) (unknown) Laboratory Results (units (unknown) date) - last 24 hr unknown) (unknown) (no (unknown) (unknown) Progress Note (units ( unknown) date) unknown) (unknown) (no (unknown) (unknown) (no value) (units (unk nown) date) unknown) (unknown) (no (unknown) (unknown) 04:40 08:35 17:57 (units (unknown) date) unknown) (unknown) (no (unknown) (unknown) 06:17 (units (unkno wn) date) unknown) (unknown) (no (unknown) (unknown) 03/20/22 03/20/22 (units (unknown) date) 03/20/22 unknown) (unknown) (no (unknown) (unknown) 03/20/22 03/20/22 (units (unknown) date) 03/21/22 unknown) (unknown) (no (unknown) (unknown) 03/21/22 (units (unkno wn) date) unknown) (unknown) (no (unknown) (unknown) 19:00 19:00 06:17 (units (unknown) date) unknown) (unknown) (no (unknown) (unknown) 03/21/22 (units (unkno wn) date) unknown) (unknown) (no (unknown) (unknown) rales, or (units (unkn own) date) rhonchi.? unknown) (unknown) (no (unknown) (unknown) sounds present in (units (unknown) date) all 4 quadrants unknown) (unknown) (no (unknown) (unknown) than 2 midnights (units (unknown) date) unknown) (unknown) (no (unknown) (unknown) to cyclic (units (unkn own) date) vomiting, resulting unknown) in SERGEY and hypokalemia. (unknown) (no (unknown) (unknown) (past 8 hours): (units (unknown) date) unknown) (unknown) (no (unknown) (unknown) -11/03/2021 GFR> (units (unknown) date) 60, creatinine unknown) 0.62-today creatinine 1.99 GFR 30 (unknown) (no (unknown) (unknown) -LR at 100 cc HR (units (unknown) date) for hydration unknown) (unknown) (no (unknown) (unknown) -Zofran Haldol and (units (unknown) date) Ativan to control unknown) vomiting (unknown) (no (unknown) (unknown) -abuse BC of 12 (units (unknown) date) neutrophils 10,000, unknown) mono feels 1000, lactate 2.2, ordered chest (unknown) (no (unknown) (unknown) -and has for (units (u nknown) date) hydration, ordered unknown) Mag, BMP lipase urine tox (unknown) (no (unknown) (unknown) -he etiology (units (u nknown) date) unknown suspected unknown) 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, though (unknown) (no (unknown) (unknown) -monitor labs (units ( unknown) date) unknown) (unknown) (no (unknown) (unknown) -patient NPO may (units (unknown) date) progress to clear unknown) liquids and advance as tolerated once (unknown) (no (unknown) (unknown) -potassium (units (unk nown) date) replacement ordered unknown) (unknown) (no (unknown) (unknown) -trend potassium (units (unknown) date) unknown) (unknown) (no (unknown) (unknown) 00:15 03/21/22 (units (unknown) date) unknown) (unknown) (no (unknown) (unknown) 00:30 03/21/22 (units (unknown) date) unknown) (unknown) (no (unknown) (unknown) 00:45 (units (unkno wn) date) unknown) (unknown) (no (unknown) (unknown) 01:00 03/21/22 (units (unknown) date) unknown) (unknown) (no (unknown) (unknown) 01:15 03/21/22 (units (unknown) date) unknown) (unknown) (no (unknown) (unknown) 01:30 (units (unkno wn) date) unknown) (unknown) (no (unknown) (unknown) 01:45 03/21/22 (units (unknown) date) unknown) (unknown) (no (unknown) (unknown) 02:00 03/21/22 (units (unknown) date) unknown) (unknown) (no (unknown) (unknown) 02:09 03/21/22 (units (unknown) date) unknown) (unknown) (no (unknown) (unknown) 03:14 (units (unkno wn) date) unknown) (unknown) (no (unknown) (unknown) 06:00 03/21/22 (units (unknown) date) unknown) (unknown) (no (unknown) (unknown) 08:00 (units (unkno wn) date) unknown) (unknown) (no (unknown) (unknown) 1. Cyclic (units (unkn own) date) vomiting, resulting unknown) in respiratory metabolic and respiratory (unknown) (no (unknown) (unknown) 2. SERGEY as a result (units (unknown) date) of cyclic vomiting, unknown) with leukocytosis, acute, present on (unknown) (no (unknown) (unknown) [id number] (units (unkno wn) date) unknown) (unknown) (no (unknown) (unknown) 3. Hypokalemia, (units (unknown) date) acute, present on unknown) admission likely secondary to cyclic vomiting (unknown) (no (unknown) (unknown) ALT (units (unkno wn) date) unknown) (unknown) (no (unknown) (unknown) ALT 15 (units (unkno wn) date) unknown) (unknown) (no (unknown) (unknown) AST (units (unkno wn) date) unknown) (unknown) (no (unknown) (unknown) AST 26 (units (unkno wn) date) unknown) (unknown) (no (unknown) (unknown) Abscess (units (unkno wn) date) unknown) (unknown) (no (unknown) (unknown) Age/Sex: 46 / F (units (unknown) date) unknown) (unknown) (no (unknown) (unknown) Albumin (units (unkno wn) date) unknown) (unknown) (no (unknown) (unknown) Albumin 4.4 (units (un known) date) unknown) (unknown) (no (unknown) (unknown) Albumin/Globulin (units (unknown) date) Ratio unknown) (unknown) (no (unknown) (unknown) Albumin/Globulin (units (unknown) date) Ratio 1.3 unknown) (unknown) (no (unknown) (unknown) Alkaline (units (unkno wn) date) Phosphatase unknown) (unknown) (no (unknown) (unknown) Alkaline (units (unkno wn) date) Phosphatase 65 unknown) (unknown) (no (unknown) (unknown) Amorphous Sediment (units (unknown) date) unknown) (unknown) (no (unknown) (unknown) Amorphous Sediment (units (unknown) date) unknown) (unknown) (no (unknown) (unknown) Amorphous Sediment (units (unknown) date) 1+ unknown) (unknown) (no (unknown) (unknown) Assessment + Plan (units (unknown) date) unknown) (unknown) (no (unknown) (unknown) Assessment + Plan (units (unknown) date) narrative: unknown) (unknown) (no (unknown) (unknown) BACK: Nontender (units (unknown) date) without deformity unknown) or crepitance. No flank tenderness. (unknown) (no (unknown) (unknown) BUN (units (unkno wn) date) unknown) (unknown) (no (unknown) (unknown) BUN 24 H (units (unkno wn) date) unknown) (unknown) (no (unknown) (unknown) BUN 20 H (units (unkno wn) date) unknown) (unknown) (no (unknown) (unknown) BUN/Creatinine (units (unknown) date) Ratio unknown) (unknown) (no (unknown) (unknown) BUN/Creatinine (units (unknown) date) Ratio 16.3 unknown) (unknown) (no (unknown) (unknown) BUN/Creatinine (units (unknown) date) Ratio 19.4 unknown) (unknown) (no (unknown) (unknown) Baso # (Auto) (units ( unknown) date) unknown) (unknown) (no (unknown) (unknown) Baso # (Auto) 0 (units (unknown) date) unknown) (unknown) (no (unknown) (unknown) Baso # (Auto) (units ( unknown) date) unknown) (unknown) (no (unknown) (unknown) Baso % (Auto) (units ( unknown) date) unknown) (unknown) (no (unknown) (unknown) Baso % (Auto) 0.3 (units (unknown) date) unknown) (unknown) (no (unknown) (unknown) Baso % (Auto) (units ( unknown) date) unknown) (unknown) (no (unknown) (unknown) Blood Pressure (units (unknown) date) 128/84 unknown) (unknown) (no (unknown) (unknown) Blood Pressure (units (unknown) date) 108/67 106/66 unknown) 123/77 (unknown) (no (unknown) (unknown) Blood Pressure (units (unknown) date) 116/65 113/73 unknown) 118/77 (unknown) (no (unknown) (unknown) Blood Pressure (units (unknown) date) 96/60 95/58 L unknown) 116/72 (unknown) (no (unknown) (unknown) CARDIOVASCULAR: (units (unknown) date) Regular rate and unknown) rhythm without murmurs, gallops, or rubs. (unknown) (no (unknown) (unknown) COVID PCR:Negative (units (unknown) date) unknown) (unknown) (no (unknown) (unknown) Calcium (units (unkno wn) date) unknown) (unknown) (no (unknown) (unknown) Calcium 9.0 (units (un known) date) unknown) (unknown) (no (unknown) (unknown) Calcium 8.9 (units (un known) date) unknown) (unknown) (no (unknown) (unknown) Carbon Dioxide (units (unknown) date) unknown) (unknown) (no (unknown) (unknown) Carbon Dioxide 34 (units (unknown) date) H unknown) (unknown) (no (unknown) (unknown) Carbon Dioxide 33 (units (unknown) date) H unknown) (unknown) (no (unknown) (unknown) Chloride (units (unkno wn) date) unknown) (unknown) (no (unknown) (unknown) Chloride 92 L (units ( unknown) date) unknown) (unknown) (no (unknown) (unknown) Chloride 92 L (units ( unknown) date) unknown) (unknown) (no (unknown) (unknown) Chronic abdominal (units (unknown) date) pain unknown) (unknown) (no (unknown) (unknown) Code status: Full (units (unknown) date) unknown) (unknown) (no (unknown) (unknown) Creatinine (units (unk nown) date) unknown) (unknown) (no (unknown) (unknown) Creatinine 1.47 H (units (unknown) date) unknown) (unknown) (no (unknown) (unknown) Creatinine 1.03 (units (unknown) date) unknown) (unknown) (no (unknown) (unknown) Critical Care (units ( unknown) date) time: unknown) (unknown) (no (unknown) (unknown) Cyclic vomiting (units (unknown) date) syndrome unknown) (unknown) (no (unknown) (unknown) : 1975 (units (unknown) date) Acct:[id number] unknown) (unknown) (no (unknown) (unknown) DVT/VTE (units (unkno wn) date) prophylaxis: unknown) Lovenox and SCDs (unknown) (no (unknown) (unknown) Daughter (units (unkno wn) date) Angio-edema unknown) (unknown) (no (unknown) (unknown) Deep Vein (units (unkn own) date) Thrombosis/Pulmonar unknown) y Embolism Present on Admission: No (unknown) (no (unknown) (unknown) Disposition: (units (u nknown) date) Patient admitted unknown) for observation hydration and correction SERGEY (unknown) (no (unknown) (unknown) ENT:? Dry mucous (units (unknown) date) membranes Nose unknown) without bleeding, purulent drainage. Throat (unknown) (no (unknown) (unknown) EXTREMITIES: No (units (unknown) date) edema or joint unknown) tenderness. (unknown) (no (unknown) (unknown) EYES: Pupils equal (units (unknown) date) round and reactive. unknown) Extraocular motions intact. No scleral (unknown) (no (unknown) (unknown) Eos # (Auto) (units (u nknown) date) unknown) (unknown) (no (unknown) (unknown) Eos # (Auto) 0 (units (unknown) date) unknown) (unknown) (no (unknown) (unknown) Eos # (Auto) (units (u nknown) date) unknown) (unknown) (no (unknown) (unknown) Eos % (Auto) (units (u nknown) date) unknown) (unknown) (no (unknown) (unknown) Eos % (Auto) 0.0 L (units (unknown) date) unknown) (unknown) (no (unknown) (unknown) Eos % (Auto) (units (u nknown) date) unknown) (unknown) (no (unknown) (unknown) Estimated GFR (units ( unknown) date) unknown) (unknown) (no (unknown) (unknown) Estimated GFR 44 L (units (unknown) date) unknown) (unknown) (no (unknown) (unknown) Estimated GFR > 60 (units (unknown) date) unknown) (unknown) (no (unknown) (unknown) Exam (units (unkno wn) date) unknown) (unknown) (no (unknown) (unknown) Exam Narrative: (units (unknown) date) unknown) (unknown) (no (unknown) (unknown) Family History (units (unknown) date) (Reviewed 03/20/22 unknown) @ 06:52 by Kylee Arauz [facility]) (unknown) (no (unknown) (unknown) Family history of (units (unknown) date) angioedema unknown) (unknown) (no (unknown) (unknown) Father (units (unkno wn) date) Hypertension unknown) (unknown) (no (unknown) (unknown) GASTROINTESTINAL: (units (unknown) date) Abdomen soft, unknown) generalized abdominal pain, nondistended.? Bowel (unknown) (no (unknown) (unknown) GENERAL: [46] year (units (unknown) date) old patient appears unknown) stated age. Well-developed patient, in (unknown) (no (unknown) (unknown) Globulin (units (unkno wn) date) unknown) (unknown) (no (unknown) (unknown) Globulin 3.5 (units (u nknown) date) unknown) (unknown) (no (unknown) (unknown) Glucose (units (unkno wn) date) unknown) (unknown) (no (unknown) (unknown) Glucose 120 H (units ( unknown) date) unknown) (unknown) (no (unknown) (unknown) Glucose 161 H (units ( unknown) date) unknown) (unknown) (no (unknown) (unknown) Granular Casts (units (unknown) date) unknown) (unknown) (no (unknown) (unknown) Granular Casts (units (unknown) date) unknown) (unknown) (no (unknown) (unknown) Granular Casts (units (unknown) date) 1-5/lpf unknown) (unknown) (no (unknown) (unknown) HEAD: Atraumatic. (units (unknown) date) Normocephalic. unknown) (unknown) (no (unknown) (unknown) Hct (units (unkno wn) date) unknown) (unknown) (no (unknown) (unknown) Hct 38.8 (units (unkno wn) date) unknown) (unknown) (no (unknown) (unknown) Hct (units (unkno wn) date) unknown) (unknown) (no (unknown) (unknown) Hgb (units (unkno wn) date) unknown) (unknown) (no (unknown) (unknown) Hgb 13.1 (units (unkno wn) date) unknown) (unknown) (no (unknown) (unknown) Hgb (units (unkno wn) date) unknown) (unknown) (no (unknown) (unknown) Hx of appendectomy (units (unknown) date) unknown) (unknown) (no (unknown) (unknown) Hx of (units (unkno wn) date) cholecystectomy unknown) (unknown) (no (unknown) (unknown) Hyaline Casts (units ( unknown) date) unknown) (unknown) (no (unknown) (unknown) Hyaline Casts (units ( unknown) date) unknown) (unknown) (no (unknown) (unknown) Hyaline Casts (units ( unknown) date) 5-10/lpf unknown) (unknown) (no (unknown) (unknown) I confirmed that (units (unknown) date) the patient's unknown) advanced care plan is present, Code status is (unknown) (no (unknown) (unknown) I have utilized (units (unknown) date) all available unknown) immediate resources to obtain, update, or review (unknown) (no (unknown) (unknown) I spent a total of (units (unknown) date) [] minutes of unknown) critical care time on this patient's care (unknown) (no (unknown) (unknown) Labs (units (o wn) date) unknown) (unknown) (no (unknown) (unknown) Labs: (units (o wn) date) unknown) (unknown) (no (unknown) (unknown) Lactate (units (unkno wn) date) unknown) (unknown) (no (unknown) (unknown) Lactate (units (unkno wn) date) unknown) (unknown) (no (unknown) (unknown) Lactate 1.1 (units (un known) date) unknown) (unknown) (no (unknown) (unknown) Lymph # (Auto) (units (unknown) date) unknown) (unknown) (no (unknown) (unknown) Lymph # (Auto) 700 (units (unknown) date) L unknown) (unknown) (no (unknown) (unknown) Lymph # (Auto) (units (unknown) date) unknown) (unknown) (no (unknown) (unknown) Lymph % (Auto) (units (unknown) date) unknown) (unknown) (no (unknown) (unknown) Lymph % (Auto) (units (unknown) date) 13.9 L unknown) (unknown) (no (unknown) (unknown) Lymph % (Auto) (units (unknown) date) unknown) (unknown) (no (unknown) (unknown) MCH (units (unkno wn) date) unknown) (unknown) (no (unknown) (unknown) MCH 31.5 (units (unkno wn) date) unknown) (unknown) (no (unknown) (unknown) MCH (units (unkno wn) date) unknown) (unknown) (no (unknown) (unknown) MCHC (units (unkno wn) date) unknown) (unknown) (no (unknown) (unknown) MCHC 33.8 (units (unkn own) date) unknown) (unknown) (no (unknown) (unknown) MCHC (units (unkno wn) date) unknown) (unknown) (no (unknown) (unknown) MCV (units (unkno wn) date) unknown) (unknown) (no (unknown) (unknown) MCV 92.9 (units (unkno wn) date) unknown) (unknown) (no (unknown) (unknown) MCV (units (unkno wn) date) unknown) (unknown) (no (unknown) (unknown) 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 (unknown) (no (unknown) (unknown) Marijuana use, (units (unknown) date) continuous unknown) (unknown) (no (unknown) (unknown) Medical History (units (unknown) date) (Reviewed 03/20/22 unknown) @ 06:52 by MATHEUS Ann) (unknown) (no (unknown) (unknown) Dameon Castro is a (units (unknown) date) 46-year-old female unknown) with history of cyclic vomiting and (unknown) (no (unknown) (unknown) Centre # (Auto) (units ( unknown) date) unknown) (unknown) (no (unknown) (unknown) Centre # (Auto) 200 (units (unknown) date) unknown) (unknown) (no (unknown) (unknown) Centre # (Auto) (units ( unknown) date) unknown) (unknown) (no (unknown) (unknown) Centre % (Auto) (units ( unknown) date) unknown) (unknown) (no (unknown) (unknown) Centre % (Auto) 3.4 (units (unknown) date) unknown) (unknown) (no (unknown) (unknown) Centre % (Auto) (units ( unknown) date) unknown) (unknown) (no (unknown) (unknown) Mother Diabetes (units (unknown) date) mellitus unknown) (unknown) (no (unknown) (unknown) NECK: Trachea (units ( unknown) date) midline. Non tender unknown) (unknown) (no (unknown) (unknown) NEURO: AOx3. (units (u nknown) date) unknown) (unknown) (no (unknown) (unknown) NT-Pro-B Natriuret (units (unknown) date) Pep unknown) (unknown) (no (unknown) (unknown) NT-Pro-B Natriuret (units (unknown) date) Pep unknown) (unknown) (no (unknown) (unknown) NT-Pro-B Natriuret (units (unknown) date) Pep 2030 H unknown) (unknown) (no (unknown) (unknown) Narrative (units (unkn own) date) unknown) (unknown) (no (unknown) (unknown) Neut # (Auto) (units ( unknown) date) unknown) (unknown) (no (unknown) (unknown) Neut # (Auto) 4400 (units (unknown) date) unknown) (unknown) (no (unknown) (unknown) Neut # (Auto) (units ( unknown) date) unknown) (unknown) (no (unknown) (unknown) Neut % (Auto) (units ( unknown) date) unknown) (unknown) (no (unknown) (unknown) Neut % (Auto) 82.4 (units (unknown) date) H unknown) (unknown) (no (unknown) (unknown) Neut % (Auto) (units ( unknown) date) unknown) (unknown) (no (unknown) (unknown) Objective (units (unkn own) date) unknown) (unknown) (no (unknown) (unknown) Other Colon cancer (units (unknown) date) unknown) (unknown) (no (unknown) (unknown) Oxygen Delivery (units (unknown) date) Method unknown) (unknown) (no (unknown) (unknown) Oxygen Delivery (units (unknown) date) Method Room Air unknown) (unknown) (no (unknown) (unknown) Oxygen Delivery (units (unknown) date) Method Room Air unknown) Room Air (unknown) (no (unknown) (unknown) Oxygen Flow Rate (units (unknown) date) unknown) (unknown) (no (unknown) (unknown) Oxygen Flow Rate 0 (units (unknown) date) unknown) (unknown) (no (unknown) (unknown) Oxygen Flow Rate 0 (units (unknown) date) 0 0 unknown) (unknown) (no (unknown) (unknown) PFSH (units (unkno wn) date) unknown) (unknown) (no (unknown) (unknown) Pancreatitis (units (u nknown) date) unknown) (unknown) (no (unknown) (unknown) Patient: (units (unkno wn) date) Dameon Castro MR#: unknown) [id number] (unknown) (no (unknown) (unknown) Plt Count (units (unkn own) date) unknown) (unknown) (no (unknown) (unknown) Plt Count 224 (units ( unknown) date) unknown) (unknown) (no (unknown) (unknown) Plt Count (units (unkn own) date) unknown) (unknown) (no (unknown) (unknown) Potassium (units (unkn own) date) unknown) (unknown) (no (unknown) (unknown) Potassium 3.6 (units ( unknown) date) unknown) (unknown) (no (unknown) (unknown) Potassium 3.0 L (units (unknown) date) unknown) (unknown) (no (unknown) (unknown) Provider: (units (unkn own) date) Irving Lakhani unknown) D.O. (unknown) (no (unknown) (unknown) Pulse Oximetry 93 (units (unknown) date) 94 96 unknown) (unknown) (no (unknown) (unknown) Pulse Oximetry 94 (units (unknown) date) 96 97 unknown) (unknown) (no (unknown) (unknown) Pulse Oximetry 95 (units (unknown) date) 97 97 unknown) (unknown) (no (unknown) (unknown) Pulse Oximetry 96 (units (unknown) date) 97 94 unknown) (unknown) (no (unknown) (unknown) Pulse Rate 72 (units ( unknown) date) unknown) (unknown) (no (unknown) (unknown) Pulse Rate 66 65 (units (unknown) date) 66 unknown) (unknown) (no (unknown) (unknown) Pulse Rate 70 72 (units (unknown) date) 78 unknown) (unknown) (no (unknown) (unknown) Pulse Rate 72 62 (units (unknown) date) 69 unknown) (unknown) (no (unknown) (unknown) Quality (units (unkno wn) date) unknown) (unknown) (no (unknown) (unknown) RBC (units (unkno wn) date) unknown) (unknown) (no (unknown) (unknown) RBC 4.17 (units (unkno wn) date) unknown) (unknown) (no (unknown) (unknown) RBC (units (unkno wn) date) unknown) (unknown) (no (unknown) (unknown) RDW (units (unkno wn) date) unknown) (unknown) (no (unknown) (unknown) RDW 13.3 (units (unkno wn) date) unknown) (unknown) (no (unknown) (unknown) RDW (units (unkno wn) date) unknown) (unknown) (no (unknown) (unknown) RESPIRATORY: Clear (units (unknown) date) to auscultation. unknown) Breath sounds equal bilaterally. No wheezes, (unknown) (no (unknown) (unknown) Respiratory Rate (units (unknown) date) unknown) (unknown) (no (unknown) (unknown) Respiratory Rate (units (unknown) date) 17 unknown) (unknown) (no (unknown) (unknown) Respiratory Rate (units (unknown) date) 18 unknown) (unknown) (no (unknown) (unknown) Result Diagrams: (units (unknown) date) unknown) (unknown) (no (unknown) (unknown) SKIN: No rash or (units (unknown) date) erythema of visible unknown) areas (unknown) (no (unknown) (unknown) Signed By: (units (unk nown) date) unknown) (unknown) (no (unknown) (unknown) Smoking Status: (units (unknown) date) Current every day unknown) smoker (unknown) (no (unknown) (unknown) Social History (units (unknown) date) (Reviewed 03/20/22 unknown) @ 05:09 by Tremayne Jovel DO) (unknown) (no (unknown) (unknown) Sodium (units (unkno wn) date) unknown) (unknown) (no (unknown) (unknown) Sodium 136 L (units (u nknown) date) unknown) (unknown) (no (unknown) (unknown) Sodium 136 L (units (u nknown) date) unknown) (unknown) (no (unknown) (unknown) Surgical History (units (unknown) date) (Reviewed 03/20/22 unknown) @ 06:52 by Kylee Arauz [facility]) (unknown) (no (unknown) (unknown) Surrogate decision (units (unknown) date) maker: Chandra Chandler unknown) (unknown) (no (unknown) (unknown) Temperature (units (un known) date) unknown) (unknown) (no (unknown) (unknown) Temperature 98.0 F (units (unknown) date) unknown) (unknown) (no (unknown) (unknown) Temperature 98.1 F (units (unknown) date) unknown) (unknown) (no (unknown) (unknown) Time Spent With (units (unknown) date) Patient unknown) (unknown) (no (unknown) (unknown) Total Bilirubin (units (unknown) date) unknown) (unknown) (no (unknown) (unknown) Total Bilirubin (units (unknown) date) 1.5 H unknown) (unknown) (no (unknown) (unknown) Total Protein (units ( unknown) date) unknown) (unknown) (no (unknown) (unknown) Total Protein 7.9 (units (unknown) date) unknown) (unknown) (no (unknown) (unknown) U Benzodiazepines (units (unknown) date) Scrn unknown) (unknown) (no (unknown) (unknown) U Benzodiazepines (units (unknown) date) Scrn unknown) (unknown) (no (unknown) (unknown) U Benzodiazepines (units (unknown) date) Scrn Negative unknown) (unknown) (no (unknown) (unknown) U Marijuana (THC) (units (unknown) date) Screen unknown) (unknown) (no (unknown) (unknown) U Marijuana (THC) (units (unknown) date) Screen unknown) (unknown) (no (unknown) (unknown) U Marijuana (THC) (units (unknown) date) Screen Positive H unknown) (unknown) (no (unknown) (unknown) U Methamphetamines (units (unknown) date) Scrn unknown) (unknown) (no (unknown) (unknown) U Methamphetamines (units (unknown) date) Scrn unknown) (unknown) (no (unknown) (unknown) U Methamphetamines (units (unknown) date) Scrn Negative unknown) (unknown) (no (unknown) (unknown) U Opiates 300ng/mL (units (unknown) date) cut unknown) (unknown) (no (unknown) (unknown) U Opiates 300ng/mL (units (unknown) date) cut unknown) (unknown) (no (unknown) (unknown) U Opiates 300ng/mL (units (unknown) date) cut Negative unknown) (unknown) (no (unknown) (unknown) U Tricyclic (units (un known) date) Antidepress unknown) (unknown) (no (unknown) (unknown) U Tricyclic (units (un known) date) Antidepress unknown) (unknown) (no (unknown) (unknown) U Tricyclic (units (un known) date) Antidepress unknown) Positive H (unknown) (no (unknown) (unknown) Ur Amphetamines (units (unknown) date) Screen unknown) (unknown) (no (unknown) (unknown) Ur Amphetamines (units (unknown) date) Screen unknown) (unknown) (no (unknown) (unknown) Ur Amphetamines (units (unknown) date) Screen Negative unknown) (unknown) (no (unknown) (unknown) Ur Barbiturates (units (unknown) date) Screen unknown) (unknown) (no (unknown) (unknown) Ur Barbiturates (units (unknown) date) Screen unknown) (unknown) (no (unknown) (unknown) Ur Barbiturates (units (unknown) date) Screen Negative unknown) (unknown) (no (unknown) (unknown) Ur Culture (units (unk nown) date) Indicated? unknown) (unknown) (no (unknown) (unknown) Ur Culture (units (unk nown) date) Indicated? unknown) (unknown) (no (unknown) (unknown) Ur Culture (units (unk nown) date) Indicated? Specimen unknown) cultured (unknown) (no (unknown) (unknown) Ur Leukocyte (units (u nknown) date) Esterase unknown) (unknown) (no (unknown) (unknown) Ur Leukocyte (units (u nknown) date) Esterase unknown) (unknown) (no (unknown) (unknown) Ur Leukocyte (units (u nknown) date) Esterase Trace H unknown) (unknown) (no (unknown) (unknown) Ur MDMA Scrn (units (u nknown) date) (Ecstasy) unknown) (unknown) (no (unknown) (unknown) Ur MDMA Scrn (units (u nknown) date) (Ecstasy) unknown) (unknown) (no (unknown) (unknown) Ur MDMA Scrn (units (u nknown) date) (Ecstasy) Negative unknown) (unknown) (no (unknown) (unknown) Ur Oxycodone (units (u nknown) date) Screen unknown) (unknown) (no (unknown) (unknown) Ur Oxycodone (units (u nknown) date) Screen unknown) (unknown) (no (unknown) (unknown) Ur Oxycodone (units (u nknown) date) Screen Negative unknown) (unknown) (no (unknown) (unknown) Ur Phencyclidine (units (unknown) date) Scrn unknown) (unknown) (no (unknown) (unknown) Ur Phencyclidine (units (unknown) date) Scrn unknown) (unknown) (no (unknown) (unknown) Ur Phencyclidine (units (unknown) date) Scrn Negative unknown) (unknown) (no (unknown) (unknown) Ur Specific (units (un known) date) [place] unknown) (unknown) (no (unknown) (unknown) Ur Specific (units (un known) date) [place] unknown) (unknown) (no (unknown) (unknown) Ur Specific (units (un known) date) [place] 1.015 unknown) (unknown) (no (unknown) (unknown) Ur Squamous Epith (units (unknown) date) Cells unknown) (unknown) (no (unknown) (unknown) Ur Squamous Epith (units (unknown) date) Cells unknown) (unknown) (no (unknown) (unknown) Ur Squamous Epith (units (unknown) date) Cells 1-5 /hpf unknown) (unknown) (no (unknown) (unknown) Urine Appearance (units (unknown) date) unknown) (unknown) (no (unknown) (unknown) Urine Appearance (units (unknown) date) unknown) (unknown) (no (unknown) (unknown) Urine Appearance (units (unknown) date) Clear unknown) (unknown) (no (unknown) (unknown) Urine Bacteria (units (unknown) date) unknown) (unknown) (no (unknown) (unknown) Urine Bacteria (units (unknown) date) unknown) (unknown) (no (unknown) (unknown) Urine Bacteria Few (units (unknown) date) (2-10) H unknown) (unknown) (no (unknown) (unknown) Urine Bilirubin (units (unknown) date) unknown) (unknown) (no (unknown) (unknown) Urine Bilirubin (units (unknown) date) unknown) (unknown) (no (unknown) (unknown) Urine Bilirubin (units (unknown) date) Negative unknown) (unknown) (no (unknown) (unknown) Urine Cocaine (units ( unknown) date) Screen unknown) (unknown) (no (unknown) (unknown) Urine Cocaine (units ( unknown) date) Screen unknown) (unknown) (no (unknown) (unknown) Urine Cocaine (units ( unknown) date) Screen Positive H unknown) (unknown) (no (unknown) (unknown) Urine Color (units (un known) date) unknown) (unknown) (no (unknown) (unknown) Urine Color (units (un known) date) unknown) (unknown) (no (unknown) (unknown) Urine Color Yellow (units (unknown) date) unknown) (unknown) (no (unknown) (unknown) Urine Glucose (UA) (units (unknown) date) unknown) (unknown) (no (unknown) (unknown) Urine Glucose (UA) (units (unknown) date) unknown) (unknown) (no (unknown) (unknown) Urine Glucose (UA) (units (unknown) date) Negative unknown) (unknown) (no (unknown) (unknown) Urine Ketones (units ( unknown) date) unknown) (unknown) (no (unknown) (unknown) Urine Ketones (units ( unknown) date) unknown) (unknown) (no (unknown) (unknown) Urine Ketones (units ( unknown) date) Trace H unknown) (unknown) (no (unknown) (unknown) Urine Methadone (units (unknown) date) Screen unknown) (unknown) (no (unknown) (unknown) Urine Methadone (units (unknown) date) Screen unknown) (unknown) (no (unknown) (unknown) Urine Methadone (units (unknown) date) Screen Negative unknown) (unknown) (no (unknown) (unknown) Urine Mucus (units (un known) date) unknown) (unknown) (no (unknown) (unknown) Urine Mucus (units (un known) date) unknown) (unknown) (no (unknown) (unknown) Urine Mucus 1+ H (units (unknown) date) unknown) (unknown) (no (unknown) (unknown) Urine Nitrate (units ( unknown) date) unknown) (unknown) (no (unknown) (unknown) Urine Nitrate (units ( unknown) date) unknown) (unknown) (no (unknown) (unknown) Urine Nitrate (units ( unknown) date) Negative unknown) (unknown) (no (unknown) (unknown) Urine Occult Blood (units (unknown) date) unknown) (unknown) (no (unknown) (unknown) Urine Occult Blood (units (unknown) date) unknown) (unknown) (no (unknown) (unknown) Urine Occult Blood (units (unknown) date) 1+ H unknown) (unknown) (no (unknown) (unknown) Urine Protein (units ( unknown) date) unknown) (unknown) (no (unknown) (unknown) Urine Protein (units ( unknown) date) unknown) (unknown) (no (unknown) (unknown) Urine Protein 3+ H (units (unknown) date) unknown) (unknown) (no (unknown) (unknown) Urine RBC (units (unkn own) date) unknown) (unknown) (no (unknown) (unknown) Urine RBC (units (unkn own) date) unknown) (unknown) (no (unknown) (unknown) Urine RBC 0-1/hpf (units (unknown) date) unknown) (unknown) (no (unknown) (unknown) Urine Urobilinogen (units (unknown) date) unknown) (unknown) (no (unknown) (unknown) Urine Urobilinogen (units (unknown) date) unknown) (unknown) (no (unknown) (unknown) Urine Urobilinogen (units (unknown) date) 0.2 unknown) (unknown) (no (unknown) (unknown) Urine WBC (units (unkn own) date) unknown) (unknown) (no (unknown) (unknown) Urine WBC (units (unkn own) date) unknown) (unknown) (no (unknown) (unknown) Urine WBC 5-10/hpf (units (unknown) date) H unknown) (unknown) (no (unknown) (unknown) Urine pH (units (unkno wn) date) unknown) (unknown) (no (unknown) (unknown) Urine pH (units (unkno wn) date) unknown) (unknown) (no (unknown) (unknown) Urine pH 7.5 (units (u nknown) date) unknown) (unknown) (no (unknown) (unknown) VTE (units (unkno wn) date) unknown) (unknown) (no (unknown) (unknown) Vital Signs (units (un known) date) unknown) (unknown) (no (unknown) (unknown) WBC (units (unkno wn) date) unknown) (unknown) (no (unknown) (unknown) WBC 5.4 D (units (unkn own) date) unknown) (unknown) (no (unknown) (unknown) WBC (units (unkno wn) date) unknown) (unknown) (no (unknown) (unknown) [Embedded Image (units (unknown) date) Not Available] unknown) (unknown) (no (unknown) (unknown) abdominal migraines (units (unknown) date) being admitted for unknown) respiratory metabolic alkalosis secondary (unknown) (no (unknown) (unknown) admission (units (unkn own) date) unknown) (unknown) (no (unknown) (unknown) alcohol intake: (units (unknown) date) current unknown) (unknown) (no (unknown) (unknown) alkalosis, acute, (units (unknown) date) present on unknown) admission (unknown) (no (unknown) (unknown) documented and/or (units (unknown) date) surrogate decision unknown) maker is listed in the patient's medical (unknown) (no (unknown) (unknown) household members: (units (unknown) date) spouse unknown) (unknown) (no (unknown) (unknown) icterus. No (units (un known) date) injection or unknown) drainage. (unknown) (no (unknown) (unknown) moderate distress, (units (unknown) date) lying on her side unknown) holding an emesis bag, clearly feeling (unknown) (no (unknown) (unknown) patient may have a (units (unknown) date) underlying unknown) infectious disease process as well. (unknown) (no (unknown) (unknown) record. (units (unkno wn) date) unknown) (unknown) (no (unknown) (unknown) respiratory and (units (unknown) date) metabolic alkalosis unknown) and hypokalemia expected length of stay less (unknown) (no (unknown) (unknown) the patient's (units ( unknown) date) current unknown) medications. (unknown) (no (unknown) (unknown) today; this time (units (unknown) date) is exclusive of unknown) procedural time. (unknown) (no (unknown) (unknown) unwell (units (unkno wn) date) unknown) (unknown) (no (unknown) (unknown) vomiting has (units (u nknown) date) ceased. unknown) (unknown) (no (unknown) (unknown) without erythema, (units (unknown) date) tonsillar unknown) hypertrophy or exudate. Airway patent. (unknown) (no (unknown) (unknown) x-ray and UA (units (u nknown) date) unknown) Result panel 38 (unknown) (no (unknown) (unknown) (no value) (units (unk nown) date) unknown) (unknown) (no (unknown) (unknown) Date of Service: (units (unknown) date) 03/20/22 unknown) (unknown) (no (unknown) (unknown) (no value) (units (unk nown) date) unknown) (unknown) (no (unknown) (unknown) - (units (unkno wn) date) unknown) (unknown) (no (unknown) (unknown) 03/21/22 06:17 (units (unknown) date) unknown) (unknown) (no (unknown) (unknown) [facility] (units (unknown) date) [address] unknown) [place] [address] (unknown) (no (unknown) (unknown) Laboratory Results (units (unknown) date) - last 24 hr unknown) (unknown) (no (unknown) (unknown) Progress Note (units ( unknown) date) unknown) (unknown) (no (unknown) (unknown) (no value) (units (unk nown) date) unknown) (unknown) (no (unknown) (unknown) 04:40 08:35 17:57 (units (unknown) date) unknown) (unknown) (no (unknown) (unknown) 06:17 (units (unkno wn) date) unknown) (unknown) (no (unknown) (unknown) 03/20/22 03/20/22 (units (unknown) date) 03/20/22 unknown) (unknown) (no (unknown) (unknown) 03/20/22 03/20/22 (units (unknown) date) 03/21/22 unknown) (unknown) (no (unknown) (unknown) 03/21/22 (units (unkno wn) date) unknown) (unknown) (no (unknown) (unknown) 19:00 19:00 06:17 (units (unknown) date) unknown) (unknown) (no (unknown) (unknown) 03/21/22 (units (unkno wn) date) unknown) (unknown) (no (unknown) (unknown) acute, present on (units (unknown) date) admission unknown) (unknown) (no (unknown) (unknown) rales, or (units (unkn own) date) rhonchi.? unknown) (unknown) (no (unknown) (unknown) rash. Not on COCO (units (unknown) date) inhibitor. Says she unknown) develops tongue-swelling occasionally (unknown) (no (unknown) (unknown) sounds present in (units (unknown) date) all 4 quadrants unknown) (unknown) (no (unknown) (unknown) to cyclic (units (unkn own) date) vomiting, resulting unknown) in SERGEY and hypokalemia. (unknown) (no (unknown) (unknown) # SERGYE as a result (units (unknown) date) of cyclic vomiting, unknown) with leukocytosis, resolved (unknown) (no (unknown) (unknown) # Cyclic vomiting, (units (unknown) date) resulting in unknown) respiratory metabolic and respiratory alkalosis, (unknown) (no (unknown) (unknown) # Hypokalemia, (units (unknown) date) acute, present on unknown) admission (unknown) (no (unknown) (unknown) # acute (units (unkno wn) date) angioedema, not unknown) present on admission (unknown) (no (unknown) (unknown) (past 8 hours): (units (unknown) date) unknown) (unknown) (no (unknown) (unknown) -11/03/2021 GFR> (units (unknown) date) 60, creatinine unknown) 0.62-today creatinine 1.99 GFR 30 (unknown) (no (unknown) (unknown) -Cr and WBC now (units (unknown) date) normal unknown) (unknown) (no (unknown) (unknown) -LR at 100 cc HR (units (unknown) date) for hydration unknown) (unknown) (no (unknown) (unknown) -Zofran Haldol and (units (unknown) date) Ativan to control unknown) vomiting (unknown) (no (unknown) (unknown) -abuse BC of 12 (units (unknown) date) neutrophils 10,000, unknown) mono feels 1000, lactate 2.2, ordered chest (unknown) (no (unknown) (unknown) -check C1 esterase (units (unknown) date) and C4 complement unknown) labs to rule out hereditary angioedema (unknown) (no (unknown) (unknown) -daily BMP's (units (u nknown) date) unknown) (unknown) (no (unknown) (unknown) -daily prednisone (units (unknown) date) 40mg unknown) (unknown) (no (unknown) (unknown) -he etiology (units (u nknown) date) unknown suspected unknown) 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, though (unknown) (no (unknown) (unknown) -likely secondary (units (unknown) date) to cyclic vomiting unknown) (unknown) (no (unknown) (unknown) -monitor for (units (u nknown) date) airway compromise unknown) (unknown) (no (unknown) (unknown) -monitor labs (units ( unknown) date) unknown) (unknown) (no (unknown) (unknown) -patient NPO december (units (unknown) date) progress to clear unknown) liquids and advance as tolerated once (unknown) (no (unknown) (unknown) -patient having (units (unknown) date) intermittent bouts unknown) of tongue swelling which will spontaneously (unknown) (no (unknown) (unknown) -received IV (units (u nknown) date) fluids unknown) (unknown) (no (unknown) (unknown) -received epi IM (units (unknown) date) and benadryl, then unknown) solu-medrol 60mg IV (unknown) (no (unknown) (unknown) -start daily (units (u nknown) date) potassium 40mg po unknown) (unknown) (no (unknown) (unknown) -transexemic acid (units (unknown) date) 1gm given unknown) (unknown) (no (unknown) (unknown) 00:15 03/21/22 (units (unknown) date) unknown) (unknown) (no (unknown) (unknown) 00:30 03/21/22 (units (unknown) date) unknown) (unknown) (no (unknown) (unknown) 00:45 (units (unkno wn) date) unknown) (unknown) (no (unknown) (unknown) 01:00 03/21/22 (units (unknown) date) unknown) (unknown) (no (unknown) (unknown) 01:15 03/21/22 (units (unknown) date) unknown) (unknown) (no (unknown) (unknown) 01:30 (units (unkno wn) date) unknown) (unknown) (no (unknown) (unknown) 01:45 03/21/22 (units (unknown) date) unknown) (unknown) (no (unknown) (unknown) 02:00 03/21/22 (units (unknown) date) unknown) (unknown) (no (unknown) (unknown) 02:09 03/21/22 (units (unknown) date) unknown) (unknown) (no (unknown) (unknown) 03:14 (units (unkno wn) date) unknown) (unknown) (no (unknown) (unknown) 06:00 03/21/22 (units (unknown) date) unknown) (unknown) (no (unknown) (unknown) 08:00 (units (unkno wn) date) unknown) (unknown) (no (unknown) (unknown) 92100 (units (unkno wn) date) unknown) (unknown) (no (unknown) (unknown) ALT (units (unkno wn) date) unknown) (unknown) (no (unknown) (unknown) ALT 15 (units (unkno wn) date) unknown) (unknown) (no (unknown) (unknown) AST (units (unkno wn) date) unknown) (unknown) (no (unknown) (unknown) AST 26 (units (unkno wn) date) unknown) (unknown) (no (unknown) (unknown) Abscess (units (unkno wn) date) unknown) (unknown) (no (unknown) (unknown) Age/Sex: 46 / F (units (unknown) date) unknown) (unknown) (no (unknown) (unknown) Albumin (units (unkno wn) date) unknown) (unknown) (no (unknown) (unknown) Albumin 4.4 (units (un known) date) unknown) (unknown) (no (unknown) (unknown) Albumin/Globulin (units (unknown) date) Ratio unknown) (unknown) (no (unknown) (unknown) Albumin/Globulin (units (unknown) date) Ratio 1.3 unknown) (unknown) (no (unknown) (unknown) Alkaline (units (unkno wn) date) Phosphatase unknown) (unknown) (no (unknown) (unknown) Alkaline (units (unkno wn) date) Phosphatase 65 unknown) (unknown) (no (unknown) (unknown) Amorphous Sediment (units (unknown) date) unknown) (unknown) (no (unknown) (unknown) Amorphous Sediment (units (unknown) date) unknown) (unknown) (no (unknown) (unknown) Amorphous Sediment (units (unknown) date) 1+ unknown) (unknown) (no (unknown) (unknown) Assessment + Plan (units (unknown) date) unknown) (unknown) (no (unknown) (unknown) Assessment + Plan (units (unknown) date) narrative: unknown) (unknown) (no (unknown) (unknown) BACK: Nontender (units (unknown) date) without deformity unknown) or crepitance. No flank tenderness. (unknown) (no (unknown) (unknown) BUN (units (unkno wn) date) unknown) (unknown) (no (unknown) (unknown) BUN 24 H (units (unkno wn) date) unknown) (unknown) (no (unknown) (unknown) BUN 20 H (units (unkno wn) date) unknown) (unknown) (no (unknown) (unknown) BUN/Creatinine (units (unknown) date) Ratio unknown) (unknown) (no (unknown) (unknown) BUN/Creatinine (units (unknown) date) Ratio 16.3 unknown) (unknown) (no (unknown) (unknown) BUN/Creatinine (units (unknown) date) Ratio 19.4 unknown) (unknown) (no (unknown) (unknown) Baso # (Auto) (units ( unknown) date) unknown) (unknown) (no (unknown) (unknown) Baso # (Auto) 0 (units (unknown) date) unknown) (unknown) (no (unknown) (unknown) Baso # (Auto) (units ( unknown) date) unknown) (unknown) (no (unknown) (unknown) Baso % (Auto) (units ( unknown) date) unknown) (unknown) (no (unknown) (unknown) Baso % (Auto) 0.3 (units (unknown) date) unknown) (unknown) (no (unknown) (unknown) Baso % (Auto) (units ( unknown) date) unknown) (unknown) (no (unknown) (unknown) Blood Pressure (units (unknown) date) 128/84 unknown) (unknown) (no (unknown) (unknown) Blood Pressure (units (unknown) date) 108/67 106/66 unknown) 123/77 (unknown) (no (unknown) (unknown) Blood Pressure (units (unknown) date) 116/65 113/73 unknown) 118/77 (unknown) (no (unknown) (unknown) Blood Pressure (units (unknown) date) 96/60 95/58 L unknown) 116/72 (unknown) (no (unknown) (unknown) CARDIOVASCULAR: (units (unknown) date) Regular rate and unknown) rhythm without murmurs, gallops, or rubs. (unknown) (no (unknown) (unknown) COVID PCR:Negative (units (unknown) date) unknown) (unknown) (no (unknown) (unknown) Calcium (units (unkno wn) date) unknown) (unknown) (no (unknown) (unknown) Calcium 9.0 (units (un known) date) unknown) (unknown) (no (unknown) (unknown) Calcium 8.9 (units (un known) date) unknown) (unknown) (no (unknown) (unknown) Carbon Dioxide (units (unknown) date) unknown) (unknown) (no (unknown) (unknown) Carbon Dioxide 34 (units (unknown) date) H unknown) (unknown) (no (unknown) (unknown) Carbon Dioxide 33 (units (unknown) date) H unknown) (unknown) (no (unknown) (unknown) Chloride (units (unkno wn) date) unknown) (unknown) (no (unknown) (unknown) Chloride 92 L (units ( unknown) date) unknown) (unknown) (no (unknown) (unknown) Chloride 92 L (units ( unknown) date) unknown) (unknown) (no (unknown) (unknown) Chronic abdominal (units (unknown) date) pain unknown) (unknown) (no (unknown) (unknown) Code status: Full (units (unknown) date) unknown) (unknown) (no (unknown) (unknown) Creatinine (units (unk nown) date) unknown) (unknown) (no (unknown) (unknown) Creatinine 1.47 H (units (unknown) date) unknown) (unknown) (no (unknown) (unknown) Creatinine 1.03 (units (unknown) date) unknown) (unknown) (no (unknown) (unknown) Critical Care (units ( unknown) date) time: unknown) (unknown) (no (unknown) (unknown) Cyclic vomiting (units (unknown) date) syndrome unknown) (unknown) (no (unknown) (unknown) : 1975 (units (unknown) date) Acct:[id number] unknown) (unknown) (no (unknown) (unknown) DVT/VTE (units (unkno wn) date) prophylaxis: unknown) Lovenox and SCDs (unknown) (no (unknown) (unknown) Daughter (units (unkno wn) date) Angio-edema unknown) (unknown) (no (unknown) (unknown) Deep Vein (units (unkn own) date) Thrombosis/Pulmonar unknown) y Embolism Present on Admission: No (unknown) (no (unknown) (unknown) ENT:? Dry mucous (units (unknown) date) membranes Nose unknown) without bleeding, purulent drainage. Throat (unknown) (no (unknown) (unknown) EXTREMITIES: No (units (unknown) date) edema or joint unknown) tenderness. (unknown) (no (unknown) (unknown) EYES: Pupils equal (units (unknown) date) round and reactive. unknown) Extraocular motions intact. No scleral (unknown) (no (unknown) (unknown) Eos # (Auto) (units (u nknown) date) unknown) (unknown) (no (unknown) (unknown) Eos # (Auto) 0 (units (unknown) date) unknown) (unknown) (no (unknown) (unknown) Eos # (Auto) (units (u nknown) date) unknown) (unknown) (no (unknown) (unknown) Eos % (Auto) (units (u nknown) date) unknown) (unknown) (no (unknown) (unknown) Eos % (Auto) 0.0 L (units (unknown) date) unknown) (unknown) (no (unknown) (unknown) Eos % (Auto) (units (u nknown) date) unknown) (unknown) (no (unknown) (unknown) Estimated GFR (units ( unknown) date) unknown) (unknown) (no (unknown) (unknown) Estimated GFR 44 L (units (unknown) date) unknown) (unknown) (no (unknown) (unknown) Estimated GFR > 60 (units (unknown) date) unknown) (unknown) (no (unknown) (unknown) Exam (units (unkno wn) date) unknown) (unknown) (no (unknown) (unknown) Exam Narrative: (units (unknown) date) unknown) (unknown) (no (unknown) (unknown) Family History (units (unknown) date) (Reviewed 03/20/22 unknown) @ 06:52 by Kylee Arauz [facility]) (unknown) (no (unknown) (unknown) Family history of (units (unknown) date) angioedema unknown) (unknown) (no (unknown) (unknown) Father (units (unkno wn) date) Hypertension unknown) (unknown) (no (unknown) (unknown) GASTROINTESTINAL: (units (unknown) date) Abdomen soft, unknown) generalized abdominal pain, nondistended.? Bowel (unknown) (no (unknown) (unknown) GENERAL: [46] year (units (unknown) date) old patient appears unknown) stated age. Well-developed patient, in (unknown) (no (unknown) (unknown) Globulin (units (unkno wn) date) unknown) (unknown) (no (unknown) (unknown) Globulin 3.5 (units (u nknown) date) unknown) (unknown) (no (unknown) (unknown) Glucose (units (unkno wn) date) unknown) (unknown) (no (unknown) (unknown) Glucose 120 H (units ( unknown) date) unknown) (unknown) (no (unknown) (unknown) Glucose 161 H (units ( unknown) date) unknown) (unknown) (no (unknown) (unknown) Granular Casts (units (unknown) date) unknown) (unknown) (no (unknown) (unknown) Granular Casts (units (unknown) date) unknown) (unknown) (no (unknown) (unknown) Granular Casts (units (unknown) date) 1-5/lpf unknown) (unknown) (no (unknown) (unknown) HEAD: Atraumatic. (units (unknown) date) Normocephalic. unknown) (unknown) (no (unknown) (unknown) Hct (units (unkno wn) date) unknown) (unknown) (no (unknown) (unknown) Hct 38.8 (units (unkno wn) date) unknown) (unknown) (no (unknown) (unknown) Hct (units (unkno wn) date) unknown) (unknown) (no (unknown) (unknown) Hgb (units (unkno wn) date) unknown) (unknown) (no (unknown) (unknown) Hgb 13.1 (units (unkno wn) date) unknown) (unknown) (no (unknown) (unknown) Hgb (units (unkno wn) date) unknown) (unknown) (no (unknown) (unknown) Hx of appendectomy (units (unknown) date) unknown) (unknown) (no (unknown) (unknown) Hx of (units (unkno wn) date) cholecystectomy unknown) (unknown) (no (unknown) (unknown) Hyaline Casts (units ( unknown) date) unknown) (unknown) (no (unknown) (unknown) Hyaline Casts (units ( unknown) date) unknown) (unknown) (no (unknown) (unknown) Hyaline Casts (units ( unknown) date) 5-10/lpf unknown) (unknown) (no (unknown) (unknown) I spent a total of (units (unknown) date) [] minutes of unknown) critical care time on this patient's care (unknown) (no (unknown) (unknown) Labs (units (unkno wn) date) unknown) (unknown) (no (unknown) (unknown) Labs: (units (unkno wn) date) unknown) (unknown) (no (unknown) (unknown) Lactate (units (unkno wn) date) unknown) (unknown) (no (unknown) (unknown) Lactate (units (unkno wn) date) unknown) (unknown) (no (unknown) (unknown) Lactate 1.1 (units (un known) date) unknown) (unknown) (no (unknown) (unknown) Lymph # (Auto) (units (unknown) date) unknown) (unknown) (no (unknown) (unknown) Lymph # (Auto) 700 (units (unknown) date) L unknown) (unknown) (no (unknown) (unknown) Lymph # (Auto) (units (unknown) date) unknown) (unknown) (no (unknown) (unknown) Lymph % (Auto) (units (unknown) date) unknown) (unknown) (no (unknown) (unknown) Lymph % (Auto) (units (unknown) date) 13.9 L unknown) (unknown) (no (unknown) (unknown) Lymph % (Auto) (units (unknown) date) unknown) (unknown) (no (unknown) (unknown) MCH (units (unkno wn) date) unknown) (unknown) (no (unknown) (unknown) MCH 31.5 (units (unkno wn) date) unknown) (unknown) (no (unknown) (unknown) MCH (units (unkno wn) date) unknown) (unknown) (no (unknown) (unknown) MCHC (units (unkno wn) date) unknown) (unknown) (no (unknown) (unknown) MCHC 33.8 (units (unkn own) date) unknown) (unknown) (no (unknown) (unknown) MCHC (units (unkno wn) date) unknown) (unknown) (no (unknown) (unknown) MCV (units (unkno wn) date) unknown) (unknown) (no (unknown) (unknown) MCV 92.9 (units (unkno wn) date) unknown) (unknown) (no (unknown) (unknown) MCV (units (unkno wn) date) unknown) (unknown) (no (unknown) (unknown) 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 (unknown) (no (unknown) (unknown) Marijuana use, (units (unknown) date) continuous unknown) (unknown) (no (unknown) (unknown) Medical History (units (unknown) date) (Reviewed 03/20/22 unknown) @ 06:52 by Kylee Arauz [facility]) (unknown) (no (unknown) (unknown) Dameon Castro is a (units (unknown) date) 46-year-old female unknown) with history of cyclic vomiting and (unknown) (no (unknown) (unknown) Centre # (Auto) (units ( unknown) date) unknown) (unknown) (no (unknown) (unknown) Centre # (Auto) 200 (units (unknown) date) unknown) (unknown) (no (unknown) (unknown) Centre # (Auto) (units ( unknown) date) unknown) (unknown) (no (unknown) (unknown) Centre % (Auto) (units ( unknown) date) unknown) (unknown) (no (unknown) (unknown) Centre % (Auto) 3.4 (units (unknown) date) unknown) (unknown) (no (unknown) (unknown) Centre % (Auto) (units ( unknown) date) unknown) (unknown) (no (unknown) (unknown) Mother Diabetes (units (unknown) date) mellitus unknown) (unknown) (no (unknown) (unknown) NECK: [place] (units ( unknown) date) midline. Non tender unknown) (unknown) (no (unknown) (unknown) NEURO: AOx3. (units (u nknown) date) unknown) (unknown) (no (unknown) (unknown) NT-Pro-B Natriuret (units (unknown) date) Pep unknown) (unknown) (no (unknown) (unknown) NT-Pro-B Natriuret (units (unknown) date) Pep unknown) (unknown) (no (unknown) (unknown) NT-Pro-B Natriuret (units (unknown) date) Pep 2030 H unknown) (unknown) (no (unknown) (unknown) Narrative (units (unkn own) date) unknown) (unknown) (no (unknown) (unknown) Neut # (Auto) (units ( unknown) date) unknown) (unknown) (no (unknown) (unknown) Neut # (Auto) 4400 (units (unknown) date) unknown) (unknown) (no (unknown) (unknown) Neut # (Auto) (units ( unknown) date) unknown) (unknown) (no (unknown) (unknown) Neut % (Auto) (units ( unknown) date) unknown) (unknown) (no (unknown) (unknown) Neut % (Auto) 82.4 (units (unknown) date) H unknown) (unknown) (no (unknown) (unknown) Neut % (Auto) (units ( unknown) date) unknown) (unknown) (no (unknown) (unknown) Objective (units (unkn own) date) unknown) (unknown) (no (unknown) (unknown) Other Colon cancer (units (unknown) date) unknown) (unknown) (no (unknown) (unknown) Oxygen Delivery (units (unknown) date) Method unknown) (unknown) (no (unknown) (unknown) Oxygen Delivery (units (unknown) date) Method Room Air unknown) (unknown) (no (unknown) (unknown) Oxygen Delivery (units (unknown) date) Method Room Air unknown) Room Air (unknown) (no (unknown) (unknown) Oxygen Flow Rate (units (unknown) date) unknown) (unknown) (no (unknown) (unknown) Oxygen Flow Rate 0 (units (unknown) date) unknown) (unknown) (no (unknown) (unknown) Oxygen Flow Rate 0 (units (unknown) date) 0 0 unknown) (unknown) (no (unknown) (unknown) PFSH (units (unkno wn) date) unknown) (unknown) (no (unknown) (unknown) Pancreatitis (units (u nknown) date) unknown) (unknown) (no (unknown) (unknown) Patient: (units (unkno wn) date) Dameon Castro A MR#: unknown) [id number] (unknown) (no (unknown) (unknown) Plt Count (units (unkn own) date) unknown) (unknown) (no (unknown) (unknown) Plt Count 224 (units ( unknown) date) unknown) (unknown) (no (unknown) (unknown) Plt Count (units (unkn own) date) unknown) (unknown) (no (unknown) (unknown) Potassium (units (unkn own) date) unknown) (unknown) (no (unknown) (unknown) Potassium 3.6 (units ( unknown) date) unknown) (unknown) (no (unknown) (unknown) Potassium 3.0 L (units (unknown) date) unknown) (unknown) (no (unknown) (unknown) Provider: (units (unkn own) date) Irving Lakhani unknown) D.O. (unknown) (no (unknown) (unknown) Pulse Oximetry 93 (units (unknown) date) 94 96 unknown) (unknown) (no (unknown) (unknown) Pulse Oximetry 94 (units (unknown) date) 96 97 unknown) (unknown) (no (unknown) (unknown) Pulse Oximetry 95 (units (unknown) date) 97 97 unknown) (unknown) (no (unknown) (unknown) Pulse Oximetry 96 (units (unknown) date) 97 94 unknown) (unknown) (no (unknown) (unknown) Pulse Rate 72 (units ( unknown) date) unknown) (unknown) (no (unknown) (unknown) Pulse Rate 66 65 (units (unknown) date) 66 unknown) (unknown) (no (unknown) (unknown) Pulse Rate 70 72 (units (unknown) date) 78 unknown) (unknown) (no (unknown) (unknown) Pulse Rate 72 62 (units (unknown) date) 69 unknown) (unknown) (no (unknown) (unknown) Quality (units (unkno wn) date) unknown) (unknown) (no (unknown) (unknown) RBC (units (unkno wn) date) unknown) (unknown) (no (unknown) (unknown) RBC 4.17 (units (unkno wn) date) unknown) (unknown) (no (unknown) (unknown) RBC (units (unkno wn) date) unknown) (unknown) (no (unknown) (unknown) RDW (units (unkno wn) date) unknown) (unknown) (no (unknown) (unknown) RDW 13.3 (units (unkno wn) date) unknown) (unknown) (no (unknown) (unknown) RDW (units (unkno wn) date) unknown) (unknown) (no (unknown) (unknown) RESPIRATORY: Clear (units (unknown) date) to auscultation. unknown) Breath sounds equal bilaterally. No wheezes, (unknown) (no (unknown) (unknown) Respiratory Rate (units (unknown) date) unknown) (unknown) (no (unknown) (unknown) Respiratory Rate (units (unknown) date) 17 unknown) (unknown) (no (unknown) (unknown) Respiratory Rate (units (unknown) date) 18 unknown) (unknown) (no (unknown) (unknown) Result Diagrams: (units (unknown) date) unknown) (unknown) (no (unknown) (unknown) SKIN: No rash or (units (unknown) date) erythema of visible unknown) areas (unknown) (no (unknown) (unknown) Signed By: (units (unk nown) date) unknown) (unknown) (no (unknown) (unknown) Smoking Status: (units (unknown) date) Current every day unknown) smoker (unknown) (no (unknown) (unknown) Social History (units (unknown) date) (Reviewed 03/20/22 unknown) @ 05:09 by Tremayne Jovel DO) (unknown) (no (unknown) (unknown) Sodium (units (unkno wn) date) unknown) (unknown) (no (unknown) (unknown) Sodium 136 L (units (u nknown) date) unknown) (unknown) (no (unknown) (unknown) Sodium 136 L (units (u nknown) date) unknown) (unknown) (no (unknown) (unknown) Surgical History (units (unknown) date) (Reviewed 03/20/22 unknown) @ 06:52 by Kylee Arauz [facility]) (unknown) (no (unknown) (unknown) Surrogate decision (units (unknown) date) maker: Chandra Chandler unknown) (unknown) (no (unknown) (unknown) Temperature (units (un known) date) unknown) (unknown) (no (unknown) (unknown) Temperature 98.0 F (units (unknown) date) unknown) (unknown) (no (unknown) (unknown) Temperature 98.1 F (units (unknown) date) unknown) (unknown) (no (unknown) (unknown) Time Spent With (units (unknown) date) Patient unknown) (unknown) (no (unknown) (unknown) Total Bilirubin (units (unknown) date) unknown) (unknown) (no (unknown) (unknown) Total Bilirubin (units (unknown) date) 1.5 H unknown) (unknown) (no (unknown) (unknown) Total Protein (units ( unknown) date) unknown) (unknown) (no (unknown) (unknown) Total Protein 7.9 (units (unknown) date) unknown) (unknown) (no (unknown) (unknown) U Benzodiazepines (units (unknown) date) Scrn unknown) (unknown) (no (unknown) (unknown) U Benzodiazepines (units (unknown) date) Scrn unknown) (unknown) (no (unknown) (unknown) U Benzodiazepines (units (unknown) date) Scrn Negative unknown) (unknown) (no (unknown) (unknown) U Marijuana (THC) (units (unknown) date) Screen unknown) (unknown) (no (unknown) (unknown) U Marijuana (THC) (units (unknown) date) Screen unknown) (unknown) (no (unknown) (unknown) U Marijuana (THC) (units (unknown) date) Screen Positive H unknown) (unknown) (no (unknown) (unknown) U Methamphetamines (units (unknown) date) Scrn unknown) (unknown) (no (unknown) (unknown) U Methamphetamines (units (unknown) date) Scrn unknown) (unknown) (no (unknown) (unknown) U Methamphetamines (units (unknown) date) Scrn Negative unknown) (unknown) (no (unknown) (unknown) U Opiates 300ng/mL (units (unknown) date) cut unknown) (unknown) (no (unknown) (unknown) U Opiates 300ng/mL (units (unknown) date) cut unknown) (unknown) (no (unknown) (unknown) U Opiates 300ng/mL (units (unknown) date) cut Negative unknown) (unknown) (no (unknown) (unknown) U Tricyclic (units (un known) date) Antidepress unknown) (unknown) (no (unknown) (unknown) U Tricyclic (units (un known) date) Antidepress unknown) (unknown) (no (unknown) (unknown) U Tricyclic (units (un known) date) Antidepress unknown) Positive H (unknown) (no (unknown) (unknown) Ur Amphetamines (units (unknown) date) Screen unknown) (unknown) (no (unknown) (unknown) Ur Amphetamines (units (unknown) date) Screen unknown) (unknown) (no (unknown) (unknown) Ur Amphetamines (units (unknown) date) Screen Negative unknown) (unknown) (no (unknown) (unknown) Ur Barbiturates (units (unknown) date) Screen unknown) (unknown) (no (unknown) (unknown) Ur Barbiturates (units (unknown) date) Screen unknown) (unknown) (no (unknown) (unknown) Ur Barbiturates (units (unknown) date) Screen Negative unknown) (unknown) (no (unknown) (unknown) Ur Culture (units (unk nown) date) Indicated? unknown) (unknown) (no (unknown) (unknown) Ur Culture (units (unk nown) date) Indicated? unknown) (unknown) (no (unknown) (unknown) Ur Culture (units (unk nown) date) Indicated? Specimen unknown) cultured (unknown) (no (unknown) (unknown) Ur Leukocyte (units (u nknown) date) Esterase unknown) (unknown) (no (unknown) (unknown) Ur Leukocyte (units (u nknown) date) Esterase unknown) (unknown) (no (unknown) (unknown) Ur Leukocyte (units (u nknown) date) Esterase Trace H unknown) (unknown) (no (unknown) (unknown) Ur MDMA Scrn (units (u nknown) date) (Ecstasy) unknown) (unknown) (no (unknown) (unknown) Ur MDMA Scrn (units (u nknown) date) (Ecstasy) unknown) (unknown) (no (unknown) (unknown) Ur MDMA Scrn (units (u nknown) date) (Ecstasy) Negative unknown) (unknown) (no (unknown) (unknown) Ur Oxycodone (units (u nknown) date) Screen unknown) (unknown) (no (unknown) (unknown) Ur Oxycodone (units (u nknown) date) Screen unknown) (unknown) (no (unknown) (unknown) Ur Oxycodone (units (u nknown) date) Screen Negative unknown) (unknown) (no (unknown) (unknown) Ur Phencyclidine (units (unknown) date) Scrn unknown) (unknown) (no (unknown) (unknown) Ur Phencyclidine (units (unknown) date) Scrn unknown) (unknown) (no (unknown) (unknown) Ur Phencyclidine (units (unknown) date) Scrn Negative unknown) (unknown) (no (unknown) (unknown) Ur Specific (units (un known) date) [place] unknown) (unknown) (no (unknown) (unknown) Ur Specific (units (un known) date) [place] unknown) (unknown) (no (unknown) (unknown) Ur Specific (units (un known) date) [place] 1.015 unknown) (unknown) (no (unknown) (unknown) Ur Squamous Epith (units (unknown) date) Cells unknown) (unknown) (no (unknown) (unknown) Ur Squamous Epith (units (unknown) date) Cells unknown) (unknown) (no (unknown) (unknown) Ur Squamous Epith (units (unknown) date) Cells 1-5 /hpf unknown) (unknown) (no (unknown) (unknown) Urine Appearance (units (unknown) date) unknown) (unknown) (no (unknown) (unknown) Urine Appearance (units (unknown) date) unknown) (unknown) (no (unknown) (unknown) Urine Appearance (units (unknown) date) Clear unknown) (unknown) (no (unknown) (unknown) Urine Bacteria (units (unknown) date) unknown) (unknown) (no (unknown) (unknown) Urine Bacteria (units (unknown) date) unknown) (unknown) (no (unknown) (unknown) Urine Bacteria Few (units (unknown) date) (2-10) H unknown) (unknown) (no (unknown) (unknown) Urine Bilirubin (units (unknown) date) unknown) (unknown) (no (unknown) (unknown) Urine Bilirubin (units (unknown) date) unknown) (unknown) (no (unknown) (unknown) Urine Bilirubin (units (unknown) date) Negative unknown) (unknown) (no (unknown) (unknown) Urine Cocaine (units ( unknown) date) Screen unknown) (unknown) (no (unknown) (unknown) Urine Cocaine (units ( unknown) date) Screen unknown) (unknown) (no (unknown) (unknown) Urine Cocaine (units ( unknown) date) Screen Positive H unknown) (unknown) (no (unknown) (unknown) Urine Color (units (un known) date) unknown) (unknown) (no (unknown) (unknown) Urine Color (units (un known) date) unknown) (unknown) (no (unknown) (unknown) Urine Color Yellow (units (unknown) date) unknown) (unknown) (no (unknown) (unknown) Urine Glucose (UA) (units (unknown) date) unknown) (unknown) (no (unknown) (unknown) Urine Glucose (UA) (units (unknown) date) unknown) (unknown) (no (unknown) (unknown) Urine Glucose (UA) (units (unknown) date) Negative unknown) (unknown) (no (unknown) (unknown) Urine Ketones (units ( unknown) date) unknown) (unknown) (no (unknown) (unknown) Urine Ketones (units ( unknown) date) unknown) (unknown) (no (unknown) (unknown) Urine Ketones (units ( unknown) date) Trace H unknown) (unknown) (no (unknown) (unknown) Urine Methadone (units (unknown) date) Screen unknown) (unknown) (no (unknown) (unknown) Urine Methadone (units (unknown) date) Screen unknown) (unknown) (no (unknown) (unknown) Urine Methadone (units (unknown) date) Screen Negative unknown) (unknown) (no (unknown) (unknown) Urine Mucus (units (un known) date) unknown) (unknown) (no (unknown) (unknown) Urine Mucus (units (un known) date) unknown) (unknown) (no (unknown) (unknown) Urine Mucus 1+ H (units (unknown) date) unknown) (unknown) (no (unknown) (unknown) Urine Nitrate (units ( unknown) date) unknown) (unknown) (no (unknown) (unknown) Urine Nitrate (units ( unknown) date) unknown) (unknown) (no (unknown) (unknown) Urine Nitrate (units ( unknown) date) Negative unknown) (unknown) (no (unknown) (unknown) Urine Occult Blood (units (unknown) date) unknown) (unknown) (no (unknown) (unknown) Urine Occult Blood (units (unknown) date) unknown) (unknown) (no (unknown) (unknown) Urine Occult Blood (units (unknown) date) 1+ H unknown) (unknown) (no (unknown) (unknown) Urine Protein (units ( unknown) date) unknown) (unknown) (no (unknown) (unknown) Urine Protein (units ( unknown) date) unknown) (unknown) (no (unknown) (unknown) Urine Protein 3+ H (units (unknown) date) unknown) (unknown) (no (unknown) (unknown) Urine RBC (units (unkn own) date) unknown) (unknown) (no (unknown) (unknown) Urine RBC (units (unkn own) date) unknown) (unknown) (no (unknown) (unknown) Urine RBC 0-1/hpf (units (unknown) date) unknown) (unknown) (no (unknown) (unknown) Urine Urobilinogen (units (unknown) date) unknown) (unknown) (no (unknown) (unknown) Urine Urobilinogen (units (unknown) date) unknown) (unknown) (no (unknown) (unknown) Urine Urobilinogen (units (unknown) date) 0.2 unknown) (unknown) (no (unknown) (unknown) Urine WBC (units (unkn own) date) unknown) (unknown) (no (unknown) (unknown) Urine WBC (units (unkn own) date) unknown) (unknown) (no (unknown) (unknown) Urine WBC 5-10/hpf (units (unknown) date) H unknown) (unknown) (no (unknown) (unknown) Urine pH (units (unkno wn) date) unknown) (unknown) (no (unknown) (unknown) Urine pH (units (unkno wn) date) unknown) (unknown) (no (unknown) (unknown) Urine pH 7.5 (units (u nknown) date) unknown) (unknown) (no (unknown) (unknown) VTE (units (unkno wn) date) unknown) (unknown) (no (unknown) (unknown) Vital Signs (units (un known) date) unknown) (unknown) (no (unknown) (unknown) WBC (units (unkno wn) date) unknown) (unknown) (no (unknown) (unknown) WBC 5.4 D (units (unkn own) date) unknown) (unknown) (no (unknown) (unknown) WBC (units (unkno wn) date) unknown) (unknown) (no (unknown) (unknown) [Embedded Image (units (unknown) date) Not Available] unknown) (unknown) (no (unknown) (unknown) abdominal migraines (units (unknown) date) being admitted for unknown) respiratory metabolic alkalosis secondary (unknown) (no (unknown) (unknown) alcohol intake: (units (unknown) date) current unknown) (unknown) (no (unknown) (unknown) household members: (units (unknown) date) spouse unknown) (unknown) (no (unknown) (unknown) icterus. No (units (un known) date) injection or unknown) drainage. (unknown) (no (unknown) (unknown) moderate distress, (units (unknown) date) lying on her side unknown) holding an emesis bag, clearly feeling (unknown) (no (unknown) (unknown) patient may have a (units (unknown) date) underlying unknown) infectious disease process as well. (unknown) (no (unknown) (unknown) resolve. No (units (unk nown) date) familial history of unknown) angioedema, and not accompanied with pruritis or (unknown) (no (unknown) (unknown) since her COVID (units (unknown) date) vaccine. unknown) (unknown) (no (unknown) (unknown) today; this time (units (unknown) date) is exclusive of unknown) procedural time. (unknown) (no (unknown) (unknown) unwell (units (unkno wn) date) unknown) (unknown) (no (unknown) (unknown) vomiting has (units (u nknown) date) ceased. unknown) (unknown) (no (unknown) (unknown) without erythema, (units (unknown) date) tonsillar unknown) hypertrophy or exudate. Airway patent. (unknown) (no (unknown) (unknown) x-ray and UA (units (u nknown) date) unknown) Result panel 39 (unknown) (no date) (unknown) (unknown) > 60 mL/min (unkn own) (unknown) (no date) (unknown) (unknown) 0.88 mg/dL (unkn own) (unknown) (no date) (unknown) (unknown) 114 mg/dL (unkn own) (unknown) (no date) (unknown) (unknown) 135 mmol/L (unkn own) (unknown) (no date) (unknown) (unknown) 17 mg/dL (unkn own) (unknown) (no date) (unknown) (unknown) 19.3 (units unknown) (unknown) (unknown) (no date) (unknown) (unknown) 3.2 mmol/L (unkn own) (unknown) (no date) (unknown) (unknown) 34 mmol/L (unkn own) (unknown) (no date) (unknown) (unknown) 9.2 mg/dL (unkn own) (unknown) (no date) (unknown) (unknown) 95 mmol/L (unkn own) Result panel 40 (unknown) (no (unknown) (unknown) (no value) (units (unk nown) date) unknown) (unknown) (no (unknown) (unknown) Date of Service: (units (unknown) date) 03/20/22 unknown) (unknown) (no (unknown) (unknown) (no value) (units (unk nown) date) unknown) (unknown) (no (unknown) (unknown) - (units (unkno wn) date) unknown) (unknown) (no (unknown) (unknown) 0.5 mg PO DAILY (units (unknown) date) PRN (Reason: nausea unknown) and vomiting) Qty: 10 0RF (unknown) (no (unknown) (unknown) 03/21/22 06:17 (units (unknown) date) unknown) (unknown) (no (unknown) (unknown) 03/21/22 12:00 (units (unknown) date) unknown) (unknown) (no (unknown) (unknown) 1 applic topical (units (unknown) date) BID Qty: 30 0RF unknown) (unknown) (no (unknown) (unknown) 100 mg PO DAILY (units (unknown) date) unknown) (unknown) (no (unknown) (unknown) 20 meq PO DAILY (units (unknown) date) Qty: 30 0RF unknown) (unknown) (no (unknown) (unknown) 200 mg PO WEEKLY (units (unknown) date) 28 Days Qty: 4 0RF unknown) (unknown) (no (unknown) (unknown) 4 mg PO Q8H PRN (units (unknown) date) (Reason: nausea and unknown) vomiting) Qty: 10 0RF (unknown) (no (unknown) (unknown) 40 mg PO DAILY 7 (units (unknown) date) Days Qty: 14 0RF unknown) (unknown) (no (unknown) (unknown) 5 mg PO DAILY (units ( unknown) date) unknown) (unknown) (no (unknown) (unknown) 5 mg intranasal (units (unknown) date) Q2-4H PRN (Reason: unknown) migraine headache) Qty: 1 0RF (unknown) (no (unknown) (unknown) 8 mg PO TID PRN (units (unknown) date) (Reason: Nausea) unknown) (unknown) (no (unknown) (unknown) Apply 1 gram of (units (unknown) date) cream to rash twice unknown) daily until rash resolves up to 4 weeks. (unknown) (no (unknown) (unknown) Discharge Summary (units (unknown) date) unknown) (unknown) (no (unknown) (unknown) [facility] (units (unknown) date) [address] [place] [address] unknown) [place] [address] (unknown) (no (unknown) (unknown) Label Comments: (units (unknown) date) unknown) (unknown) (no (unknown) (unknown) Laboratory Results (units (unknown) date) - last 24 hr unknown) (unknown) (no (unknown) (unknown) Progress Note (units ( unknown) date) unknown) (unknown) (no (unknown) (unknown) Rx Instructions: (units (unknown) date) unknown) (unknown) (no (unknown) (unknown) dissolve 1 tablet (units (unknown) date) by mouth up to unknown) three times a day (unknown) (no (unknown) (unknown) into each nostril (units (unknown) date) once; if abdominal unknown) migraine remains, may repeat total dose (unknown) (no (unknown) (unknown) take 1 tablet by (units (unknown) date) mouth once daily unknown) (unknown) (no (unknown) (unknown) take 1 tablet once (units (unknown) date) weekly until rash unknown) resolves up to 4 weeks (unknown) (no (unknown) (unknown) (no value) (units (unk nown) date) unknown) (unknown) (no (unknown) (unknown) 04:40 08:35 17:57 (units (unknown) date) unknown) (unknown) (no (unknown) (unknown) 06:17 (units (unkno wn) date) unknown) (unknown) (no (unknown) (unknown) 06:17 06:17 12:00 (units (unknown) date) unknown) (unknown) (no (unknown) (unknown) 03/20/22 03/20/22 (units (unknown) date) 03/20/22 unknown) (unknown) (no (unknown) (unknown) 03/20/22 03/20/22 (units (unknown) date) 03/21/22 unknown) (unknown) (no (unknown) (unknown) 03/21/22 (units (unkno wn) date) unknown) (unknown) (no (unknown) (unknown) 03/21/22 03/21/22 (units (unknown) date) 03/21/22 unknown) (unknown) (no (unknown) (unknown) 17:57 19:00 19:00 (units (unknown) date) unknown) (unknown) (no (unknown) (unknown) 19:00 19:00 06:17 (units (unknown) date) unknown) (unknown) (no (unknown) (unknown) amlodipine 5 mg (units (unknown) date) tablet unknown) (unknown) (no (unknown) (unknown) bupropion HCl 100 (units (unknown) date) mg tablet unknown) sustained-release 12 hr (unknown) (no (unknown) (unknown) fluconazole 200 mg (units (unknown) date) tablet unknown) (unknown) (no (unknown) (unknown) lorazepam [Ativan] (units (unknown) date) 0.5 mg tablet unknown) (unknown) (no (unknown) (unknown) miconazole nitrate (units (unknown) date) 2 % cream unknown) (unknown) (no (unknown) (unknown) ondansetron 4 mg (units (unknown) date) tablet,disintegrati unknown) ng (unknown) (no (unknown) (unknown) ondansetron 8 mg (units (unknown) date) tablet,disintegrati unknown) ng (unknown) (no (unknown) (unknown) potassium chloride (units (unknown) date) 20 mEq tablet unknown) extended release (unknown) (no (unknown) (unknown) prednisone 20 mg (units (unknown) date) tablet unknown) (unknown) (no (unknown) (unknown) sumatriptan 5 (units ( unknown) date) mg/actuation unknown) spray,non-aerosol (unknown) (no (unknown) (unknown) 03/21/22 (units (unkno wn) date) unknown) (unknown) (no (unknown) (unknown) acute, present on (units (unknown) date) admission unknown) (unknown) (no (unknown) (unknown) it is. (units (unkno wn) date) unknown) (unknown) (no (unknown) (unknown) normal and your (units (unknown) date) potassium improved unknown) as well. Your nausea and vomiting also got (unknown) (no (unknown) (unknown) rales, or (units (unkn own) date) rhonchi.? unknown) (unknown) (no (unknown) (unknown) rash. Not on COCO (units (unknown) date) inhibitor. Says she unknown) develops tongue-swelling occasionally (unknown) (no (unknown) (unknown) sounds present in (units (unknown) date) all 4 quadrants unknown) (unknown) (no (unknown) (unknown) the same day as (units (unknown) date) taking the fungal unknown) pill as they can interact. If the rash does (unknown) (no (unknown) (unknown) to cyclic (units (unkn own) date) vomiting, resulting unknown) in SERGEY and hypokalemia. (unknown) (no (unknown) (unknown) your tongue which (units (unknown) date) may be due to a unknown) condition called hereditary angioedema so I (unknown) (no (unknown) (unknown) # SERGEY as a result (units (unknown) date) of cyclic vomiting, unknown) with leukocytosis, resolved (unknown) (no (unknown) (unknown) # Cyclic vomiting, (units (unknown) date) resulting in unknown) respiratory metabolic and respiratory alkalosis, (unknown) (no (unknown) (unknown) # Hypokalemia, (units (unknown) date) acute, present on unknown) admission (unknown) (no (unknown) (unknown) # acute (units (unkno wn) date) angioedema, not unknown) present on admission (unknown) (no (unknown) (unknown) (past 8 hours): (units (unknown) date) unknown) (unknown) (no (unknown) (unknown) -11/03/2021 GFR> (units (unknown) date) 60, creatinine unknown) 0.62-today creatinine 1.99 GFR 30 (unknown) (no (unknown) (unknown) -Cr and WBC now (units (unknown) date) normal unknown) (unknown) (no (unknown) (unknown) -LR at 100 cc HR (units (unknown) date) for hydration unknown) (unknown) (no (unknown) (unknown) -Zofran Haldol and (units (unknown) date) Ativan to control unknown) vomiting (unknown) (no (unknown) (unknown) -abuse BC of 12 (units (unknown) date) neutrophils 10,000, unknown) mono feels 1000, lactate 2.2, ordered chest (unknown) (no (unknown) (unknown) -check C1 esterase (units (unknown) date) and C4 complement unknown) labs to rule out hereditary angioedema (unknown) (no (unknown) (unknown) -daily BMP's (units (u nknown) date) unknown) (unknown) (no (unknown) (unknown) -daily prednisone (units (unknown) date) 40mg unknown) (unknown) (no (unknown) (unknown) -he etiology (units (u nknown) date) unknown suspected unknown) 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, though (unknown) (no (unknown) (unknown) -likely secondary (units (unknown) date) to cyclic vomiting unknown) (unknown) (no (unknown) (unknown) -monitor for (units (u nknown) date) airway compromise unknown) (unknown) (no (unknown) (unknown) -monitor labs (units ( unknown) date) unknown) (unknown) (no (unknown) (unknown) -patient NPO december (units (unknown) date) progress to clear unknown) liquids and advance as tolerated once (unknown) (no (unknown) (unknown) -patient having (units (unknown) date) intermittent bouts unknown) of tongue swelling which will spontaneously (unknown) (no (unknown) (unknown) -received IV (units (u nknown) date) fluids unknown) (unknown) (no (unknown) (unknown) -received epi IM (units (unknown) date) and benadryl, then unknown) solu-medrol 60mg IV (unknown) (no (unknown) (unknown) -start daily (units (u nknown) date) potassium 40mg po unknown) (unknown) (no (unknown) (unknown) -transexemic acid (units (unknown) date) 1gm given unknown) (unknown) (no (unknown) (unknown) 00:15 03/21/22 (units (unknown) date) unknown) (unknown) (no (unknown) (unknown) 00:30 08/03/22 (units (unknown) date) unknown) (unknown) (no (unknown) (unknown) 00:45 (units (unkno wn) date) unknown) (unknown) (no (unknown) (unknown) 01:00 03/21/22 (units (unknown) date) unknown) (unknown) (no (unknown) (unknown) 01:15 03/21/22 (units (unknown) date) unknown) (unknown) (no (unknown) (unknown) 01:30 (units (unkno wn) date) unknown) (unknown) (no (unknown) (unknown) 01:45 03/21/22 (units (unknown) date) unknown) (unknown) (no (unknown) (unknown) 02:00 03/21/22 (units (unknown) date) unknown) (unknown) (no (unknown) (unknown) 02:09 03/21/22 (units (unknown) date) unknown) (unknown) (no (unknown) (unknown) 03:14 (units (unkno wn) date) unknown) (unknown) (no (unknown) (unknown) 06:00 03/21/22 (units (unknown) date) unknown) (unknown) (no (unknown) (unknown) 03/20/22 06:31 (units (unknown) date) unknown) (unknown) (no (unknown) (unknown) 08:00 (units (unkno wn) date) unknown) (unknown) (no (unknown) (unknown) 11:53 03/21/22 (units (unknown) date) unknown) (unknown) (no (unknown) (unknown) 14:00 (units (unkno wn) date) unknown) (unknown) (no (unknown) (unknown) [id number] (units (unkno wn) date) unknown) (unknown) (no (unknown) (unknown) ALT (units (unkno wn) date) unknown) (unknown) (no (unknown) (unknown) ALT 15 (units (unkno wn) date) unknown) (unknown) (no (unknown) (unknown) ALT 15 (units (unkno wn) date) unknown) (unknown) (no (unknown) (unknown) AST (units (unkno wn) date) unknown) (unknown) (no (unknown) (unknown) AST 26 (units (unkno wn) date) unknown) (unknown) (no (unknown) (unknown) AST 26 (units (unkno wn) date) unknown) (unknown) (no (unknown) (unknown) Abscess (units (unkno wn) date) unknown) (unknown) (no (unknown) (unknown) Age/Sex: 46 / F (units (unknown) date) unknown) (unknown) (no (unknown) (unknown) Albumin (units (unkno wn) date) unknown) (unknown) (no (unknown) (unknown) Albumin 4.4 (units (un known) date) unknown) (unknown) (no (unknown) (unknown) Albumin 4.4 (units (un known) date) unknown) (unknown) (no (unknown) (unknown) Albumin/Globulin (units (unknown) date) Ratio unknown) (unknown) (no (unknown) (unknown) Albumin/Globulin (units (unknown) date) Ratio 1.3 unknown) (unknown) (no (unknown) (unknown) Albumin/Globulin (units (unknown) date) Ratio 1.3 unknown) (unknown) (no (unknown) (unknown) Alkaline (units (unkno wn) date) Phosphatase unknown) (unknown) (no (unknown) (unknown) Alkaline (units (unkno wn) date) Phosphatase 65 unknown) (unknown) (no (unknown) (unknown) Alkaline (units (unkno wn) date) Phosphatase 65 unknown) (unknown) (no (unknown) (unknown) Amorphous Sediment (units (unknown) date) unknown) (unknown) (no (unknown) (unknown) Amorphous Sediment (units (unknown) date) unknown) (unknown) (no (unknown) (unknown) Amorphous Sediment (units (unknown) date) 1+ unknown) (unknown) (no (unknown) (unknown) Amorphous Sediment (units (unknown) date) 1+ unknown) (unknown) (no (unknown) (unknown) Assessment + Plan (units (unknown) date) unknown) (unknown) (no (unknown) (unknown) Assessment + Plan (units (unknown) date) narrative: unknown) (unknown) (no (unknown) (unknown) BACK: Nontender (units (unknown) date) without deformity unknown) or crepitance. No flank tenderness. (unknown) (no (unknown) (unknown) BUN (units (unkno wn) date) unknown) (unknown) (no (unknown) (unknown) BUN 24 H (units (unkno wn) date) unknown) (unknown) (no (unknown) (unknown) BUN 20 H 17 (units (un known) date) unknown) (unknown) (no (unknown) (unknown) BUN 20 H (units (unkno wn) date) unknown) (unknown) (no (unknown) (unknown) BUN 24 H (units (unkno wn) date) unknown) (unknown) (no (unknown) (unknown) BUN/Creatinine (units (unknown) date) Ratio unknown) (unknown) (no (unknown) (unknown) BUN/Creatinine (units (unknown) date) Ratio 16.3 unknown) (unknown) (no (unknown) (unknown) BUN/Creatinine (units (unknown) date) Ratio 19.4 19.3 unknown) (unknown) (no (unknown) (unknown) BUN/Creatinine (units (unknown) date) Ratio 16.3 unknown) (unknown) (no (unknown) (unknown) BUN/Creatinine (units (unknown) date) Ratio 19.4 unknown) (unknown) (no (unknown) (unknown) Baso # (Auto) (units ( unknown) date) unknown) (unknown) (no (unknown) (unknown) Baso # (Auto) 0 (units (unknown) date) unknown) (unknown) (no (unknown) (unknown) Baso # (Auto) (units ( unknown) date) unknown) (unknown) (no (unknown) (unknown) Baso # (Auto) 0 (units (unknown) date) unknown) (unknown) (no (unknown) (unknown) Baso % (Auto) (units ( unknown) date) unknown) (unknown) (no (unknown) (unknown) Baso % (Auto) 0.3 (units (unknown) date) unknown) (unknown) (no (unknown) (unknown) Baso % (Auto) (units ( unknown) date) unknown) (unknown) (no (unknown) (unknown) Baso % (Auto) 0.3 (units (unknown) date) unknown) (unknown) (no (unknown) (unknown) Blood Pressure (units (unknown) date) 128/84 unknown) (unknown) (no (unknown) (unknown) Blood Pressure (units (unknown) date) 108/67 106/66 unknown) 123/77 (unknown) (no (unknown) (unknown) Blood Pressure (units (unknown) date) 116/65 113/73 unknown) 118/77 (unknown) (no (unknown) (unknown) Blood Pressure (units (unknown) date) 143/97 H unknown) (unknown) (no (unknown) (unknown) Blood Pressure (units (unknown) date) 96/60 95/58 L unknown) 116/72 (unknown) (no (unknown) (unknown) CARDIOVASCULAR: (units (unknown) date) Regular rate and unknown) rhythm without murmurs, gallops, or rubs. (unknown) (no (unknown) (unknown) COVID PCR:Negative (units (unknown) date) unknown) (unknown) (no (unknown) (unknown) Calcium (units (unkno wn) date) unknown) (unknown) (no (unknown) (unknown) Calcium 9.0 (units (un known) date) unknown) (unknown) (no (unknown) (unknown) Calcium 8.9 9.2 (units (unknown) date) unknown) (unknown) (no (unknown) (unknown) Calcium 8.9 (units (un known) date) unknown) (unknown) (no (unknown) (unknown) Calcium 9.0 (units (un known) date) unknown) (unknown) (no (unknown) (unknown) Carbon Dioxide (units (unknown) date) unknown) (unknown) (no (unknown) (unknown) Carbon Dioxide 34 (units (unknown) date) H unknown) (unknown) (no (unknown) (unknown) Carbon Dioxide 33 (units (unknown) date) H 34 H unknown) (unknown) (no (unknown) (unknown) Carbon Dioxide 33 (units (unknown) date) H unknown) (unknown) (no (unknown) (unknown) Carbon Dioxide 34 (units (unknown) date) H unknown) (unknown) (no (unknown) (unknown) Chief complaint: (units (unknown) date) Vomiting, SOB unknown) (unknown) (no (unknown) (unknown) Chloride (units (unkno wn) date) unknown) (unknown) (no (unknown) (unknown) Chloride 92 L (units ( unknown) date) unknown) (unknown) (no (unknown) (unknown) Chloride 92 L 95 L (units (unknown) date) unknown) (unknown) (no (unknown) (unknown) Chloride 92 L (units ( unknown) date) unknown) (unknown) (no (unknown) (unknown) Chloride 92 L (units ( unknown) date) unknown) (unknown) (no (unknown) (unknown) Chronic abdominal (units (unknown) date) pain unknown) (unknown) (no (unknown) (unknown) Code status: Full (units (unknown) date) unknown) (unknown) (no (unknown) (unknown) Continued (units (unkn own) date) unknown) (unknown) (no (unknown) (unknown) Creatinine (units (unk nown) date) unknown) (unknown) (no (unknown) (unknown) Creatinine 1.47 H (units (unknown) date) unknown) (unknown) (no (unknown) (unknown) Creatinine 1.03 (units (unknown) date) 0.88 unknown) (unknown) (no (unknown) (unknown) Creatinine 1.03 (units (unknown) date) unknown) (unknown) (no (unknown) (unknown) Creatinine 1.47 H (units (unknown) date) unknown) (unknown) (no (unknown) (unknown) Critical Care (units ( unknown) date) time: unknown) (unknown) (no (unknown) (unknown) Cyclic vomiting (units (unknown) date) syndrome unknown) (unknown) (no (unknown) (unknown) : 1975 (units (unknown) date) Acct:[id number] unknown) (unknown) (no (unknown) (unknown) DVT/VTE (units (unkno wn) date) prophylaxis: unknown) Lovenox and SCDs (unknown) (no (unknown) (unknown) Date of admission: (units (unknown) date) unknown) (unknown) (no (unknown) (unknown) Daughter (units (unkno wn) date) Angio-edema unknown) (unknown) (no (unknown) (unknown) Deep Vein (units (unkn own) date) Thrombosis/Pulmonar unknown) y Embolism Present on Admission: No (unknown) (no (unknown) (unknown) Discharge Data (units (unknown) date) unknown) (unknown) (no (unknown) (unknown) Discharge Plan (units (unknown) date) unknown) (unknown) (no (unknown) (unknown) Discharge (units (unkn own) date) Providers unknown) (unknown) (no (unknown) (unknown) Discharge orders + (units (unknown) date) Medications unknown) (unknown) (no (unknown) (unknown) Discharge (units (unkn own) date) provider: unknown) (unknown) (no (unknown) (unknown) ENT:? Dry mucous (units (unknown) date) membranes Nose unknown) without bleeding, purulent drainage. Throat (unknown) (no (unknown) (unknown) EXTREMITIES: No (units (unknown) date) edema or joint unknown) tenderness. (unknown) (no (unknown) (unknown) EYES: Pupils equal (units (unknown) date) round and reactive. unknown) Extraocular motions intact. No scleral (unknown) (no (unknown) (unknown) Eos # (Auto) (units (u nknown) date) unknown) (unknown) (no (unknown) (unknown) Eos # (Auto) 0 (units (unknown) date) unknown) (unknown) (no (unknown) (unknown) Eos # (Auto) (units (u nknown) date) unknown) (unknown) (no (unknown) (unknown) Eos # (Auto) 0 (units (unknown) date) unknown) (unknown) (no (unknown) (unknown) Eos % (Auto) (units (u nknown) date) unknown) (unknown) (no (unknown) (unknown) Eos % (Auto) 0.0 L (units (unknown) date) unknown) (unknown) (no (unknown) (unknown) Eos % (Auto) (units (u nknown) date) unknown) (unknown) (no (unknown) (unknown) Eos % (Auto) 0.0 L (units (unknown) date) unknown) (unknown) (no (unknown) (unknown) Estimated GFR (units ( unknown) date) unknown) (unknown) (no (unknown) (unknown) Estimated GFR 44 L (units (unknown) date) unknown) (unknown) (no (unknown) (unknown) Estimated GFR > 60 (units (unknown) date) > 60 unknown) (unknown) (no (unknown) (unknown) Estimated GFR > 60 (units (unknown) date) unknown) (unknown) (no (unknown) (unknown) Estimated GFR 44 L (units (unknown) date) unknown) (unknown) (no (unknown) (unknown) Exam (units (unkno wn) date) unknown) (unknown) (no (unknown) (unknown) Exam Narrative: (units (unknown) date) unknown) (unknown) (no (unknown) (unknown) Family History (units (unknown) date) (Reviewed 03/20/22 unknown) @ 06:52 by MATHEUS Ann) (unknown) (no (unknown) (unknown) Family history of (units (unknown) date) angioedema unknown) (unknown) (no (unknown) (unknown) Father (units (unkno wn) date) Hypertension unknown) (unknown) (no (unknown) (unknown) Follow (units (unkno wn) date) up/Referrals: unknown) (unknown) (no (unknown) (unknown) GASTROINTESTINAL: (units (unknown) date) Abdomen soft, unknown) generalized abdominal pain, nondistended.? Bowel (unknown) (no (unknown) (unknown) GENERAL: [46] year (units (unknown) date) old patient appears unknown) stated age. Well-developed patient, in (unknown) (no (unknown) (unknown) Globulin (units (unkno wn) date) unknown) (unknown) (no (unknown) (unknown) Globulin 3.5 (units (u nknown) date) unknown) (unknown) (no (unknown) (unknown) Globulin 3.5 (units (u nknown) date) unknown) (unknown) (no (unknown) (unknown) Glucose (units (unkno wn) date) unknown) (unknown) (no (unknown) (unknown) Glucose 120 H (units ( unknown) date) unknown) (unknown) (no (unknown) (unknown) Glucose 161 H 114 (units (unknown) date) H unknown) (unknown) (no (unknown) (unknown) Glucose 120 H (units ( unknown) date) unknown) (unknown) (no (unknown) (unknown) Glucose 161 H (units ( unknown) date) unknown) (unknown) (no (unknown) (unknown) Granular Casts (units (unknown) date) unknown) (unknown) (no (unknown) (unknown) Granular Casts (units (unknown) date) unknown) (unknown) (no (unknown) (unknown) Granular Casts (units (unknown) date) 1-5/lpf unknown) (unknown) (no (unknown) (unknown) Granular Casts (units (unknown) date) 1-5/lpf unknown) (unknown) (no (unknown) (unknown) HEAD: Atraumatic. (units (unknown) date) Normocephalic. unknown) (unknown) (no (unknown) (unknown) Hct (units (unkno wn) date) unknown) (unknown) (no (unknown) (unknown) Hct 38.8 (units (unkno wn) date) unknown) (unknown) (no (unknown) (unknown) Hct (units (unkno wn) date) unknown) (unknown) (no (unknown) (unknown) Hct 38.8 (units (unkno wn) date) unknown) (unknown) (no (unknown) (unknown) Hgb (units (unkno wn) date) unknown) (unknown) (no (unknown) (unknown) Hgb 13.1 (units (unkno wn) date) unknown) (unknown) (no (unknown) (unknown) Hgb (units (unkno wn) date) unknown) (unknown) (no (unknown) (unknown) Hgb 13.1 (units (unkno wn) date) unknown) (unknown) (no (unknown) (unknown) History of Present (units (unknown) date) Illness unknown) (unknown) (no (unknown) (unknown) Hx of appendectomy (units (unknown) date) unknown) (unknown) (no (unknown) (unknown) Hx of (units (unkno wn) date) cholecystectomy unknown) (unknown) (no (unknown) (unknown) Hyaline Casts (units ( unknown) date) unknown) (unknown) (no (unknown) (unknown) Hyaline Casts (units ( unknown) date) unknown) (unknown) (no (unknown) (unknown) Hyaline Casts (units ( unknown) date) 5-10/lpf unknown) (unknown) (no (unknown) (unknown) Hyaline Casts (units ( unknown) date) 5-10/lpf unknown) (unknown) (no (unknown) (unknown) I spent a total of (units (unknown) date) [] minutes of unknown) critical care time on this patient's care (unknown) (no (unknown) (unknown) Sergo Martino MD (units (unknown) date) [Primary Care unknown) Provider] - (unknown) (no (unknown) (unknown) Labs (units (unkno wn) date) unknown) (unknown) (no (unknown) (unknown) Labs: (units (unkno wn) date) unknown) (unknown) (no (unknown) (unknown) Lactate (units (unkno wn) date) unknown) (unknown) (no (unknown) (unknown) Lactate (units (unkno wn) date) unknown) (unknown) (no (unknown) (unknown) Lactate 1.1 (units (un known) date) unknown) (unknown) (no (unknown) (unknown) Lymph # (Auto) (units (unknown) date) unknown) (unknown) (no (unknown) (unknown) Lymph # (Auto) 700 (units (unknown) date) L unknown) (unknown) (no (unknown) (unknown) Lymph # (Auto) (units (unknown) date) unknown) (unknown) (no (unknown) (unknown) Lymph # (Auto) 700 (units (unknown) date) L unknown) (unknown) (no (unknown) (unknown) Lymph % (Auto) (units (unknown) date) unknown) (unknown) (no (unknown) (unknown) Lymph % (Auto) (units (unknown) date) 13.9 L unknown) (unknown) (no (unknown) (unknown) Lymph % (Auto) (units (unknown) date) unknown) (unknown) (no (unknown) (unknown) Lymph % (Auto) (units (unknown) date) 13.9 L unknown) (unknown) (no (unknown) (unknown) MCH (units (unkno wn) date) unknown) (unknown) (no (unknown) (unknown) MCH 31.5 (units (unkno wn) date) unknown) (unknown) (no (unknown) (unknown) MCH (units (unkno wn) date) unknown) (unknown) (no (unknown) (unknown) MCH 31.5 (units (unkno wn) date) unknown) (unknown) (no (unknown) (unknown) MCHC (units (unkno wn) date) unknown) (unknown) (no (unknown) (unknown) MCHC 33.8 (units (unkn own) date) unknown) (unknown) (no (unknown) (unknown) MCHC (units (unkno wn) date) unknown) (unknown) (no (unknown) (unknown) MCHC 33.8 (units (unkn own) date) unknown) (unknown) (no (unknown) (unknown) MCV (units (unkno wn) date) unknown) (unknown) (no (unknown) (unknown) MCV 92.9 (units (unkno wn) date) unknown) (unknown) (no (unknown) (unknown) MCV (units (unkno wn) date) unknown) (unknown) (no (unknown) (unknown) MCV 92.9 (units (unkno wn) date) unknown) (unknown) (no (unknown) (unknown) 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 (unknown) (no (unknown) (unknown) Marijuana use, (units (unknown) date) continuous unknown) (unknown) (no (unknown) (unknown) Irving Lakhani, (units (unknown) date) DO unknown) (unknown) (no (unknown) (unknown) Medical History (units (unknown) date) (Reviewed 03/20/22 unknown) @ 06:52 [facility]) (unknown) (no (unknown) (unknown) Dameon Castro is a (units (unknown) date) 46-year-old female unknown) with history of cyclic vomiting and (unknown) (no (unknown) (unknown) Centre # (Auto) (units ( unknown) date) unknown) (unknown) (no (unknown) (unknown) Centre # (Auto) 200 (units (unknown) date) unknown) (unknown) (no (unknown) (unknown) Centre # (Auto) (units ( unknown) date) unknown) (unknown) (no (unknown) (unknown) Centre # (Auto) 200 (units (unknown) date) unknown) (unknown) (no (unknown) (unknown) Centre % (Auto) (units ( unknown) date) unknown) (unknown) (no (unknown) (unknown) Centre % (Auto) 3.4 (units (unknown) date) unknown) (unknown) (no (unknown) (unknown) Centre % (Auto) (units ( unknown) date) unknown) (unknown) (no (unknown) (unknown) [place] % (Auto) 3.4 (units (unknown) date) unknown) (unknown) (no (unknown) (unknown) Mother Diabetes (units (unknown) date) mellitus unknown) (unknown) (no (unknown) (unknown) NECK: Tr[place]a (units ( unknown) date) midline. Non tender unknown) (unknown) (no (unknown) (unknown) NEURO: AOx3. (units (u nknown) date) unknown) (unknown) (no (unknown) (unknown) NT-Pro-B Natriuret (units (unknown) date) Pep unknown) (unknown) (no (unknown) (unknown) NT-Pro-B Natriuret (units (unknown) date) Pep unknown) (unknown) (no (unknown) (unknown) NT-Pro-B Natriuret (units (unknown) date) Pep 2030 H unknown) (unknown) (no (unknown) (unknown) Narrative (units (unkn own) date) unknown) (unknown) (no (unknown) (unknown) Neut # (Auto) (units ( unknown) date) unknown) (unknown) (no (unknown) (unknown) Neut # (Auto) 4400 (units (unknown) date) unknown) (unknown) (no (unknown) (unknown) Neut # (Auto) (units ( unknown) date) unknown) (unknown) (no (unknown) (unknown) Neut # (Auto) 4400 (units (unknown) date) unknown) (unknown) (no (unknown) (unknown) Neut % (Auto) (units ( unknown) date) unknown) (unknown) (no (unknown) (unknown) Neut % (Auto) 82.4 (units (unknown) date) H unknown) (unknown) (no (unknown) (unknown) Neut % (Auto) (units ( unknown) date) unknown) (unknown) (no (unknown) (unknown) Neut % (Auto) 82.4 (units (unknown) date) H unknown) (unknown) (no (unknown) (unknown) New (units (unkno wn) date) unknown) (unknown) (no (unknown) (unknown) Objective (units (unkn own) date) unknown) (unknown) (no (unknown) (unknown) Other Colon cancer (units (unknown) date) unknown) (unknown) (no (unknown) (unknown) Oxygen Delivery (units (unknown) date) Method unknown) (unknown) (no (unknown) (unknown) Oxygen Delivery (units (unknown) date) Method Room Air unknown) (unknown) (no (unknown) (unknown) Oxygen Delivery (units (unknown) date) Method Room Air unknown) (unknown) (no (unknown) (unknown) Oxygen Delivery (units (unknown) date) Method Room Air unknown) Room Air (unknown) (no (unknown) (unknown) Oxygen Flow Rate (units (unknown) date) unknown) (unknown) (no (unknown) (unknown) Oxygen Flow Rate 0 (units (unknown) date) unknown) (unknown) (no (unknown) (unknown) Oxygen Flow Rate 0 (units (unknown) date) unknown) (unknown) (no (unknown) (unknown) Oxygen Flow Rate 0 (units (unknown) date) 0 0 unknown) (unknown) (no (unknown) (unknown) PFSH (units (unkno wn) date) unknown) (unknown) (no (unknown) (unknown) Pancreatitis (units (u nknown) date) unknown) (unknown) (no (unknown) (unknown) Patient (units (unkno wn) date) Disposition: Home unknown) (unknown) (no (unknown) (unknown) Patient: (units (unkno wn) date) Dameon Castro MR#: unknown) [id number] (unknown) (no (unknown) (unknown) Plt Count (units (unkn own) date) unknown) (unknown) (no (unknown) (unknown) Plt Count 224 (units ( unknown) date) unknown) (unknown) (no (unknown) (unknown) Plt Count (units (unkn own) date) unknown) (unknown) (no (unknown) (unknown) Plt Count 224 (units ( unknown) date) unknown) (unknown) (no (unknown) (unknown) Potassium (units (unkn own) date) unknown) (unknown) (no (unknown) (unknown) Potassium 3.6 (units ( unknown) date) unknown) (unknown) (no (unknown) (unknown) Potassium 3.0 L (units (unknown) date) 3.2 L unknown) (unknown) (no (unknown) (unknown) Potassium 3.0 L (units (unknown) date) unknown) (unknown) (no (unknown) (unknown) Potassium 3.6 (units ( unknown) date) unknown) (unknown) (no (unknown) (unknown) Prescriptions: (units (unknown) date) unknown) (unknown) (no (unknown) (unknown) Primary Care (units (u nknown) date) Provider: unknown) SalenaSergo (unknown) (no (unknown) (unknown) Primary care (units (u nknown) date) physician: unknown) (unknown) (no (unknown) (unknown) Provider (units (unkno wn) date) unknown) (unknown) (no (unknown) (unknown) Provider Discharge (units (unknown) date) Comment: Your unknown) admitted for nausea and vomiting causing (unknown) (no (unknown) (unknown) Provider: (units (unkn own) date) Irving Lakhani unknown) D.O. (unknown) (no (unknown) (unknown) Pulse Oximetry 93 (units (unknown) date) 94 96 unknown) (unknown) (no (unknown) (unknown) Pulse Oximetry 94 (units (unknown) date) 96 97 unknown) (unknown) (no (unknown) (unknown) Pulse Oximetry 95 (units (unknown) date) 97 97 unknown) (unknown) (no (unknown) (unknown) Pulse Oximetry 96 (units (unknown) date) 97 94 unknown) (unknown) (no (unknown) (unknown) Pulse Oximetry 98 (units (unknown) date) 98 unknown) (unknown) (no (unknown) (unknown) Pulse Rate 72 (units ( unknown) date) unknown) (unknown) (no (unknown) (unknown) Pulse Rate 56 L (units (unknown) date) unknown) (unknown) (no (unknown) (unknown) Pulse Rate 66 65 (units (unknown) date) 66 unknown) (unknown) (no (unknown) (unknown) Pulse Rate 70 72 (units (unknown) date) 78 unknown) (unknown) (no (unknown) (unknown) Pulse Rate 72 62 (units (unknown) date) 69 unknown) (unknown) (no (unknown) (unknown) Quality (units (unkno wn) date) unknown) (unknown) (no (unknown) (unknown) RBC (units (unkno wn) date) unknown) (unknown) (no (unknown) (unknown) RBC 4.17 (units (unkno wn) date) unknown) (unknown) (no (unknown) (unknown) RBC (units (unkno wn) date) unknown) (unknown) (no (unknown) (unknown) RBC 4.17 (units (unkno wn) date) unknown) (unknown) (no (unknown) (unknown) RDW (units (unkno wn) date) unknown) (unknown) (no (unknown) (unknown) RDW 13.3 (units (unkno wn) date) unknown) (unknown) (no (unknown) (unknown) RDW (units (unkno wn) date) unknown) (unknown) (no (unknown) (unknown) RDW 13.3 (units (unkno wn) date) unknown) (unknown) (no (unknown) (unknown) RESPIRATORY: Clear (units (unknown) date) to auscultation. unknown) Breath sounds equal bilaterally. No wheezes, (unknown) (no (unknown) (unknown) Respiratory Rate (units (unknown) date) unknown) (unknown) (no (unknown) (unknown) Respiratory Rate (units (unknown) date) 17 unknown) (unknown) (no (unknown) (unknown) Respiratory Rate (units (unknown) date) 18 unknown) (unknown) (no (unknown) (unknown) Respiratory Rate (units (unknown) date) 17 unknown) (unknown) (no (unknown) (unknown) Result Diagrams: (units (unknown) date) unknown) (unknown) (no (unknown) (unknown) SKIN: No rash or (units (unknown) date) erythema of visible unknown) areas (unknown) (no (unknown) (unknown) Signed By: (units (unk nown) date) unknown) (unknown) (no (unknown) (unknown) Smoking Status: (units (unknown) date) Current every day unknown) smoker (unknown) (no (unknown) (unknown) Social History (units (unknown) date) (Reviewed 03/20/22 unknown) @ 05:09 by Tremayne Jovel DO) (unknown) (no (unknown) (unknown) Sodium (units (unkno wn) date) unknown) (unknown) (no (unknown) (unknown) Sodium 136 L (units (u nknown) date) unknown) (unknown) (no (unknown) (unknown) Sodium 136 L 135 L (units (unknown) date) unknown) (unknown) (no (unknown) (unknown) Sodium 136 L (units (u nknown) date) unknown) (unknown) (no (unknown) (unknown) Sodium 136 L (units (u nknown) date) unknown) (unknown) (no (unknown) (unknown) Surgical History (units (unknown) date) (Reviewed 03/20/22 unknown) @ 06:52 by Kylee Arauz [facility]) (unknown) (no (unknown) (unknown) Surrogate decision (units (unknown) date) maker: Chandra Geraldine unknown) (unknown) (no (unknown) (unknown) Temperature (units (un known) date) unknown) (unknown) (no (unknown) (unknown) Temperature 98.0 F (units (unknown) date) unknown) (unknown) (no (unknown) (unknown) Temperature 98.1 F (units (unknown) date) unknown) (unknown) (no (unknown) (unknown) Temperature 97.1 F (units (unknown) date) L unknown) (unknown) (no (unknown) (unknown) Time Spent With (units (unknown) date) Patient unknown) (unknown) (no (unknown) (unknown) Total Bilirubin (units (unknown) date) unknown) (unknown) (no (unknown) (unknown) Total Bilirubin (units (unknown) date) 1.5 H unknown) (unknown) (no (unknown) (unknown) Total Bilirubin (units (unknown) date) 1.5 H unknown) (unknown) (no (unknown) (unknown) Total Protein (units ( unknown) date) unknown) (unknown) (no (unknown) (unknown) Total Protein 7.9 (units (unknown) date) unknown) (unknown) (no (unknown) (unknown) Total Protein 7.9 (units (unknown) date) unknown) (unknown) (no (unknown) (unknown) U Benzodiazepines (units (unknown) date) Scrn unknown) (unknown) (no (unknown) (unknown) U Benzodiazepines (units (unknown) date) Scrn Negative unknown) (unknown) (no (unknown) (unknown) U Benzodiazepines (units (unknown) date) Scrn unknown) (unknown) (no (unknown) (unknown) U Benzodiazepines (units (unknown) date) Scrn Negative unknown) (unknown) (no (unknown) (unknown) U Marijuana (THC) (units (unknown) date) Screen unknown) (unknown) (no (unknown) (unknown) U Marijuana (THC) (units (unknown) date) Screen Positive H unknown) (unknown) (no (unknown) (unknown) U Marijuana (THC) (units (unknown) date) Screen unknown) (unknown) (no (unknown) (unknown) U Marijuana (THC) (units (unknown) date) Screen Positive H unknown) (unknown) (no (unknown) (unknown) U Methamphetamines (units (unknown) date) Scrn unknown) (unknown) (no (unknown) (unknown) U Methamphetamines (units (unknown) date) Scrn Negative unknown) (unknown) (no (unknown) (unknown) U Methamphetamines (units (unknown) date) Scrn unknown) (unknown) (no (unknown) (unknown) U Methamphetamines (units (unknown) date) Scrn Negative unknown) (unknown) (no (unknown) (unknown) U Opiates 300ng/mL (units (unknown) date) cut unknown) (unknown) (no (unknown) (unknown) U Opiates 300ng/mL (units (unknown) date) cut Negative unknown) (unknown) (no (unknown) (unknown) U Opiates 300ng/mL (units (unknown) date) cut unknown) (unknown) (no (unknown) (unknown) U Opiates 300ng/mL (units (unknown) date) cut Negative unknown) (unknown) (no (unknown) (unknown) U Tricyclic (units (un known) date) Antidepress unknown) (unknown) (no (unknown) (unknown) U Tricyclic (units (un known) date) Antidepress unknown) Positive H (unknown) (no (unknown) (unknown) U Tricyclic (units (un known) date) Antidepress unknown) (unknown) (no (unknown) (unknown) U Tricyclic (units (un known) date) Antidepress unknown) Positive H (unknown) (no (unknown) (unknown) Ur Amphetamines (units (unknown) date) Screen unknown) (unknown) (no (unknown) (unknown) Ur Amphetamines (units (unknown) date) Screen Negative unknown) (unknown) (no (unknown) (unknown) Ur Amphetamines (units (unknown) date) Screen unknown) (unknown) (no (unknown) (unknown) Ur Amphetamines (units (unknown) date) Screen Negative unknown) (unknown) (no (unknown) (unknown) Ur Barbiturates (units (unknown) date) Screen unknown) (unknown) (no (unknown) (unknown) Ur Barbiturates (units (unknown) date) Screen Negative unknown) (unknown) (no (unknown) (unknown) Ur Barbiturates (units (unknown) date) Screen unknown) (unknown) (no (unknown) (unknown) Ur Barbiturates (units (unknown) date) Screen Negative unknown) (unknown) (no (unknown) (unknown) Ur Culture (units (unk nown) date) Indicated? unknown) (unknown) (no (unknown) (unknown) Ur Culture (units (unk nown) date) Indicated? unknown) (unknown) (no (unknown) (unknown) Ur Culture (units (unk nown) date) Indicated? Specimen unknown) cultured (unknown) (no (unknown) (unknown) Ur Culture (units (unk nown) date) Indicated? Specimen unknown) cultured (unknown) (no (unknown) (unknown) Ur Leukocyte (units (u nknown) date) Esterase unknown) (unknown) (no (unknown) (unknown) Ur Leukocyte (units (u nknown) date) Esterase unknown) (unknown) (no (unknown) (unknown) Ur Leukocyte (units (u nknown) date) Esterase Trace H unknown) (unknown) (no (unknown) (unknown) Ur Leukocyte (units (u nknown) date) Esterase Trace H unknown) (unknown) (no (unknown) (unknown) Ur MDMA Scrn (units (u nknown) date) (Ecstasy) unknown) (unknown) (no (unknown) (unknown) Ur MDMA Scrn (units (u nknown) date) (Ecstasy) Negative unknown) (unknown) (no (unknown) (unknown) Ur MDMA Scrn (units (u nknown) date) (Ecstasy) unknown) (unknown) (no (unknown) (unknown) Ur MDMA Scrn (units (u nknown) date) (Ecstasy) Negative unknown) (unknown) (no (unknown) (unknown) Ur Oxycodone (units (u nknown) date) Screen unknown) (unknown) (no (unknown) (unknown) Ur Oxycodone (units (u nknown) date) Screen Negative unknown) (unknown) (no (unknown) (unknown) Ur Oxycodone (units (u nknown) date) Screen unknown) (unknown) (no (unknown) (unknown) Ur Oxycodone (units (u nknown) date) Screen Negative unknown) (unknown) (no (unknown) (unknown) Ur Phencyclidine (units (unknown) date) Scrn unknown) (unknown) (no (unknown) (unknown) Ur Phencyclidine (units (unknown) date) Scrn Negative unknown) (unknown) (no (unknown) (unknown) Ur Phencyclidine (units (unknown) date) Scrn unknown) (unknown) (no (unknown) (unknown) Ur Phencyclidine (units (unknown) date) Scrn Negative unknown) (unknown) (no (unknown) (unknown) Ur Specific (units (un known) date) [place] unknown) (unknown) (no (unknown) (unknown) Ur Specific (units (un known) date) [place] unknown) (unknown) (no (unknown) (unknown) Ur Specific (units (un known) date) [place] 1.015 unknown) (unknown) (no (unknown) (unknown) Ur Specific (units (un known) date) [place] 1.015 unknown) (unknown) (no (unknown) (unknown) Ur Squamous Epith (units (unknown) date) Cells unknown) (unknown) (no (unknown) (unknown) Ur Squamous Epith (units (unknown) date) Cells unknown) (unknown) (no (unknown) (unknown) Ur Squamous Epith (units (unknown) date) Cells 1-5 /hpf unknown) (unknown) (no (unknown) (unknown) Ur Squamous Epith (units (unknown) date) Cells 1-5 /hpf unknown) (unknown) (no (unknown) (unknown) Urine Appearance (units (unknown) date) unknown) (unknown) (no (unknown) (unknown) Urine Appearance (units (unknown) date) unknown) (unknown) (no (unknown) (unknown) Urine Appearance (units (unknown) date) Clear unknown) (unknown) (no (unknown) (unknown) Urine Appearance (units (unknown) date) Clear unknown) (unknown) (no (unknown) (unknown) Urine Bacteria (units (unknown) date) unknown) (unknown) (no (unknown) (unknown) Urine Bacteria (units (unknown) date) unknown) (unknown) (no (unknown) (unknown) Urine Bacteria Few (units (unknown) date) (2-10) H unknown) (unknown) (no (unknown) (unknown) Urine Bacteria Few (units (unknown) date) (2-10) H unknown) (unknown) (no (unknown) (unknown) Urine Bilirubin (units (unknown) date) unknown) (unknown) (no (unknown) (unknown) Urine Bilirubin (units (unknown) date) unknown) (unknown) (no (unknown) (unknown) Urine Bilirubin (units (unknown) date) Negative unknown) (unknown) (no (unknown) (unknown) Urine Bilirubin (units (unknown) date) Negative unknown) (unknown) (no (unknown) (unknown) Urine Cocaine (units ( unknown) date) Screen unknown) (unknown) (no (unknown) (unknown) Urine Cocaine (units ( unknown) date) Screen Positive H unknown) (unknown) (no (unknown) (unknown) Urine Cocaine (units ( unknown) date) Screen unknown) (unknown) (no (unknown) (unknown) Urine Cocaine (units ( unknown) date) Screen Positive H unknown) (unknown) (no (unknown) (unknown) Urine Color (units (un known) date) unknown) (unknown) (no (unknown) (unknown) Urine Color (units (un known) date) unknown) (unknown) (no (unknown) (unknown) Urine Color Yellow (units (unknown) date) unknown) (unknown) (no (unknown) (unknown) Urine Color Yellow (units (unknown) date) unknown) (unknown) (no (unknown) (unknown) Urine Glucose (UA) (units (unknown) date) unknown) (unknown) (no (unknown) (unknown) Urine Glucose (UA) (units (unknown) date) unknown) (unknown) (no (unknown) (unknown) Urine Glucose (UA) (units (unknown) date) Negative unknown) (unknown) (no (unknown) (unknown) Urine Glucose (UA) (units (unknown) date) Negative unknown) (unknown) (no (unknown) (unknown) Urine Ketones (units ( unknown) date) unknown) (unknown) (no (unknown) (unknown) Urine Ketones (units ( unknown) date) unknown) (unknown) (no (unknown) (unknown) Urine Ketones (units ( unknown) date) Trace H unknown) (unknown) (no (unknown) (unknown) Urine Ketones (units ( unknown) date) Trace H unknown) (unknown) (no (unknown) (unknown) Urine Methadone (units (unknown) date) Screen unknown) (unknown) (no (unknown) (unknown) Urine Methadone (units (unknown) date) Screen Negative unknown) (unknown) (no (unknown) (unknown) Urine Methadone (units (unknown) date) Screen unknown) (unknown) (no (unknown) (unknown) Urine Methadone (units (unknown) date) Screen Negative unknown) (unknown) (no (unknown) (unknown) Urine Mucus (units (un known) date) unknown) (unknown) (no (unknown) (unknown) Urine Mucus (units (un known) date) unknown) (unknown) (no (unknown) (unknown) Urine Mucus 1+ H (units (unknown) date) unknown) (unknown) (no (unknown) (unknown) Urine Mucus 1+ H (units (unknown) date) unknown) (unknown) (no (unknown) (unknown) Urine Nitrate (units ( unknown) date) unknown) (unknown) (no (unknown) (unknown) Urine Nitrate (units ( unknown) date) unknown) (unknown) (no (unknown) (unknown) Urine Nitrate (units ( unknown) date) Negative unknown) (unknown) (no (unknown) (unknown) Urine Nitrate (units ( unknown) date) Negative unknown) (unknown) (no (unknown) (unknown) Urine Occult Blood (units (unknown) date) unknown) (unknown) (no (unknown) (unknown) Urine Occult Blood (units (unknown) date) unknown) (unknown) (no (unknown) (unknown) Urine Occult Blood (units (unknown) date) 1+ H unknown) (unknown) (no (unknown) (unknown) Urine Occult Blood (units (unknown) date) 1+ H unknown) (unknown) (no (unknown) (unknown) Urine Protein (units ( unknown) date) unknown) (unknown) (no (unknown) (unknown) Urine Protein (units ( unknown) date) unknown) (unknown) (no (unknown) (unknown) Urine Protein 3+ H (units (unknown) date) unknown) (unknown) (no (unknown) (unknown) Urine Protein 3+ H (units (unknown) date) unknown) (unknown) (no (unknown) (unknown) Urine RBC (units (unkn own) date) unknown) (unknown) (no (unknown) (unknown) Urine RBC (units (unkn own) date) unknown) (unknown) (no (unknown) (unknown) Urine RBC 0-1/hpf (units (unknown) date) unknown) (unknown) (no (unknown) (unknown) Urine RBC 0-1/hpf (units (unknown) date) unknown) (unknown) (no (unknown) (unknown) Urine Urobilinogen (units (unknown) date) unknown) (unknown) (no (unknown) (unknown) Urine Urobilinogen (units (unknown) date) unknown) (unknown) (no (unknown) (unknown) Urine Urobilinogen (units (unknown) date) 0.2 unknown) (unknown) (no (unknown) (unknown) Urine Urobilinogen (units (unknown) date) 0.2 unknown) (unknown) (no (unknown) (unknown) Urine WBC (units (unkn own) date) unknown) (unknown) (no (unknown) (unknown) Urine WBC (units (unkn own) date) unknown) (unknown) (no (unknown) (unknown) Urine WBC 5-10/hpf (units (unknown) date) H unknown) (unknown) (no (unknown) (unknown) Urine WBC 5-10/hpf (units (unknown) date) H unknown) (unknown) (no (unknown) (unknown) Urine pH (units (unkno wn) date) unknown) (unknown) (no (unknown) (unknown) Urine pH (units (unkno wn) date) unknown) (unknown) (no (unknown) (unknown) Urine pH 7.5 (units (u nknown) date) unknown) (unknown) (no (unknown) (unknown) Urine pH 7.5 (units (u nknown) date) unknown) (unknown) (no (unknown) (unknown) VTE (units (unkno wn) date) unknown) (unknown) (no (unknown) (unknown) Vital Signs (units (un known) date) unknown) (unknown) (no (unknown) (unknown) WBC (units (unkno wn) date) unknown) (unknown) (no (unknown) (unknown) WBC 5.4 D (units (unkn own) date) unknown) (unknown) (no (unknown) (unknown) WBC (units (unkno wn) date) unknown) (unknown) (no (unknown) (unknown) WBC 5.4 D (units (unkn own) date) unknown) (unknown) (no (unknown) (unknown) Sergo Martino MD (units (unknown) date) unknown) (unknown) (no (unknown) (unknown) [Embedded Image (units (unknown) date) Not Available] unknown) (unknown) (no (unknown) (unknown) abdominal migraines (units (unknown) date) being admitted for unknown) respiratory metabolic alkalosis secondary (unknown) (no (unknown) (unknown) alcohol intake: (units (unknown) date) current unknown) (unknown) (no (unknown) (unknown) better. I am (units (un known) date) sending you home on unknown) daily potassium supplement. About swelling of (unknown) (no (unknown) (unknown) checked some labs (units (unknown) date) to test for this. I unknown) also put you on 1 week of oral (unknown) (no (unknown) (unknown) dehydration to your (units (unknown) date) kidneys and low unknown) potassium. Your kidney function improved to (unknown) (no (unknown) (unknown) fungal so I am (units ( unknown) date) starting you on an unknown) antifungal pill and cream. Do not take Zofran (unknown) (no (unknown) (unknown) household members: (units (unknown) date) spouse unknown) (unknown) (no (unknown) (unknown) icterus. No (units (un known) date) injection or unknown) drainage. (unknown) (no (unknown) (unknown) labs as a take up (units (unknown) date) to a week to unknown) result. The rash on your bottom appears to be (unknown) (no (unknown) (unknown) moderate distress, (units (unknown) date) lying on her side unknown) holding an emesis bag, clearly feeling (unknown) (no (unknown) (unknown) not get better you (units (unknown) date) should see unknown) Dermatology at [facility] again to see what they think (unknown) (no (unknown) (unknown) once after at (units ( unknown) date) least 2 hours unknown) (unknown) (no (unknown) (unknown) patient may have a (units (unknown) date) underlying unknown) infectious disease process as well. (unknown) (no (unknown) (unknown) prednisone. Please (units (unknown) date) see your primary unknown) care doctor so they can check for these (unknown) (no (unknown) (unknown) resolve. No (units (unk nown) date) familial history of unknown) angioedema, and not accompanied with pruritis or (unknown) (no (unknown) (unknown) since her COVID (units (unknown) date) vaccine. unknown) (unknown) (no (unknown) (unknown) today; this time (units (unknown) date) is exclusive of unknown) procedural time. (unknown) (no (unknown) (unknown) unwell (units (unkno wn) date) unknown) (unknown) (no (unknown) (unknown) vomiting has (units (u nknown) date) ceased. unknown) (unknown) (no (unknown) (unknown) without erythema, (units (unknown) date) tonsillar unknown) hypertrophy or exudate. Airway patent. (unknown) (no (unknown) (unknown) x-ray and UA (units (u nknown) date) unknown) Result panel 41 (unknown) (no date) (unknown) (unknown) 20 mg/dL (unkn own) Result panel 42 (unknown) (no date) (unknown) (unknown) (no value) (units (un known) unknown) (unknown) (no date) (unknown) (unknown) Mixed gram + (units ( unknown) farhat. Deemed unknown) unsuitable for further studies. Result panel 43 (unknown) (no (unknown) (unknown) (no value) (units (unk nown) date) unknown) (unknown) (no (unknown) (unknown) Date of Service: (units (unknown) date) 03/20/22 unknown) (unknown) (no (unknown) (unknown) (no value) (units (unk nown) date) unknown) (unknown) (no (unknown) (unknown) - (units (unkno wn) date) unknown) (unknown) (no (unknown) (unknown) 0.5 mg PO DAILY (units (unknown) date) PRN (Reason: nausea unknown) and vomiting) Qty: 10 0RF (unknown) (no (unknown) (unknown) 03/21/22 06:17 (units (unknown) date) unknown) (unknown) (no (unknown) (unknown) 03/21/22 12:00 (units (unknown) date) unknown) (unknown) (no (unknown) (unknown) 03/22/22 0930 (units ( unknown) date) unknown) (unknown) (no (unknown) (unknown) 1 applic topical (units (unknown) date) BID Qty: 30 0RF unknown) (unknown) (no (unknown) (unknown) 100 mg PO DAILY (units (unknown) date) unknown) (unknown) (no (unknown) (unknown) 20 meq PO DAILY (units (unknown) date) Qty: 30 0RF unknown) (unknown) (no (unknown) (unknown) 200 mg PO WEEKLY (units (unknown) date) 28 Days Qty: 4 0RF unknown) (unknown) (no (unknown) (unknown) 4 mg PO Q8H PRN (units (unknown) date) (Reason: nausea and unknown) vomiting) Qty: 10 0RF (unknown) (no (unknown) (unknown) 40 mg PO DAILY 7 (units (unknown) date) Days Qty: 14 0RF unknown) (unknown) (no (unknown) (unknown) 5 mg PO DAILY (units ( unknown) date) unknown) (unknown) (no (unknown) (unknown) 5 mg intranasal (units (unknown) date) Q2-4H PRN (Reason: unknown) migraine headache) Qty: 1 0RF (unknown) (no (unknown) (unknown) 8 mg PO TID PRN (units (unknown) date) (Reason: Nausea) unknown) (unknown) (no (unknown) (unknown) Apply 1 gram of (units (unknown) date) cream to rash twice unknown) daily until rash resolves up to 4 weeks. (unknown) (no (unknown) (unknown) Discharge Summary (units (unknown) date) unknown) (unknown) (no (unknown) (unknown) [facility] (units (unknown) date) [address] unknown) [place] [address] (unknown) (no (unknown) (unknown) Label Comments: (units (unknown) date) unknown) (unknown) (no (unknown) (unknown) Laboratory Results (units (unknown) date) - last 24 hr unknown) (unknown) (no (unknown) (unknown) Rx Instructions: (units (unknown) date) unknown) (unknown) (no (unknown) (unknown) dissolve 1 tablet (units (unknown) date) by mouth up to unknown) three times a day (unknown) (no (unknown) (unknown) into each nostril (units (unknown) date) once; if abdominal unknown) migraine remains, may repeat total dose (unknown) (no (unknown) (unknown) take 1 tablet by (units (unknown) date) mouth once daily unknown) (unknown) (no (unknown) (unknown) take 1 tablet once (units (unknown) date) weekly until rash unknown) resolves up to 4 weeks (unknown) (no (unknown) (unknown) (no value) (units (unk nown) date) unknown) (unknown) (no (unknown) (unknown) 06:17 06:17 12:00 (units (unknown) date) unknown) (unknown) (no (unknown) (unknown) 03/20/22 03/20/22 (units (unknown) date) 03/20/22 unknown) (unknown) (no (unknown) (unknown) 03/21/22 03/21/22 (units (unknown) date) 03/21/22 unknown) (unknown) (no (unknown) (unknown) 17:57 19:00 19:00 (units (unknown) date) unknown) (unknown) (no (unknown) (unknown) amlodipine 5 mg (units (unknown) date) tablet unknown) (unknown) (no (unknown) (unknown) bupropion HCl 100 (units (unknown) date) mg tablet unknown) sustained-release 12 hr (unknown) (no (unknown) (unknown) fluconazole 200 mg (units (unknown) date) tablet unknown) (unknown) (no (unknown) (unknown) lorazepam [Ativan] (units (unknown) date) 0.5 mg tablet unknown) (unknown) (no (unknown) (unknown) miconazole nitrate (units (unknown) date) 2 % cream unknown) (unknown) (no (unknown) (unknown) ondansetron 4 mg (units (unknown) date) tablet,disintegrati unknown) ng (unknown) (no (unknown) (unknown) ondansetron 8 mg (units (unknown) date) tablet,disintegrati unknown) ng (unknown) (no (unknown) (unknown) potassium chloride (units (unknown) date) 20 mEq tablet unknown) extended release (unknown) (no (unknown) (unknown) prednisone 20 mg (units (unknown) date) tablet unknown) (unknown) (no (unknown) (unknown) sumatriptan 5 (units ( unknown) date) mg/actuation unknown) spray,non-aerosol (unknown) (no (unknown) (unknown) 03/21/22 (units (unkno wn) date) unknown) (unknown) (no (unknown) (unknown) it is. (units (unkno wn) date) unknown) (unknown) (no (unknown) (unknown) normal and your (units (unknown) date) potassium improved unknown) as well. Your nausea and vomiting also got (unknown) (no (unknown) (unknown) rales, or (units (unkn own) date) rhonchi.? unknown) (unknown) (no (unknown) (unknown) sounds present in (units (unknown) date) all 4 quadrants unknown) (unknown) (no (unknown) (unknown) the same day as (units (unknown) date) taking the fungal unknown) pill as they can interact. 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 so I (unknown) (no (unknown) (unknown) (past 8 hours): (units (unknown) date) unknown) (unknown) (no (unknown) (unknown) -11/03/2021 GFR> (units (unknown) date) 60, creatinine unknown) 0.62-today creatinine 1.99 GFR 30 (unknown) (no (unknown) (unknown) -Cr lowered to (units (unknown) date) 0.88 and WBC to 5.4 unknown) (unknown) (no (unknown) (unknown) -LR at 100 cc HR (units (unknown) date) for hydration unknown) (unknown) (no (unknown) (unknown) -Zofran Haldol and (units (unknown) date) Ativan to control unknown) vomiting (unknown) (no (unknown) (unknown) -abuse BC of 12 (units (unknown) date) neutrophils 10,000, unknown) mono feels 1000, lactate 2.2, ordered chest (unknown) (no (unknown) (unknown) -appears to be (units (unknown) date) fungal rash unknown) (unknown) (no (unknown) (unknown) -discharged on (units (unknown) date) daily 40mg unknown) prednisone for 5 days (unknown) (no (unknown) (unknown) -discharged on (units (unknown) date) daily potassium unknown) supplement (unknown) (no (unknown) (unknown) -discharged on (units (unknown) date) fluconazole 200mg unknown) weekly for 4 weeks and topical miconazole BID (unknown) (no (unknown) (unknown) -he etiology (units (u nknown) date) unknown suspected unknown) 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, though (unknown) (no (unknown) (unknown) -improved to 3.2 (units (unknown) date) unknown) (unknown) (no (unknown) (unknown) -improved with (units (unknown) date) epinephrine IM, IV unknown) benadryl and oral prednisone (unknown) (no (unknown) (unknown) -initially 2.6 on (units (unknown) date) admission unknown) (unknown) (no (unknown) (unknown) -instructed (units (un known) date) patient to return unknown) to derm clinic if rash does not improved on (unknown) (no (unknown) (unknown) -monitor labs (units ( unknown) date) unknown) (unknown) (no (unknown) (unknown) -no respiratory (units (unknown) date) compromise unknown) (unknown) (no (unknown) (unknown) -patient NPO december (units (unknown) date) progress to clear unknown) liquids and advance as tolerated once (unknown) (no (unknown) (unknown) -patient had (units (u nknown) date) intermittent tongue unknown) swelling while admitted, no obvious cause. 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 Cyclic (units (unkn own) date) vomiting, resulting unknown) in respiratory metabolic and respiratory (unknown) (no (unknown) (unknown) 10,000, monitor (units (unknown) date) feels 1000.? unknown) Patient has SERGEY chloride 83, hypokalemia potassium (unknown) (no (unknown) (unknown) 11:53 03/21/22 (units (unknown) date) unknown) (unknown) (no (unknown) (unknown) 14:00 (units (unkno wn) date) unknown) (unknown) (no (unknown) (unknown) 1gram now -will (units (unknown) date) evaluate response. unknown) Consult Dr. Soto in ED, and will notify (unknown) (no (unknown) (unknown) 2. SERGEY as a result (units (unknown) date) of cyclic vomiting, unknown) with leukocytosis, resolved (unknown) (no (unknown) (unknown) 2.6, bicarb 33, (units (unknown) date) creatinine 1.99, unknown) glucose 142, GFR of 30.? 11/03/2021 patient's (unknown) (no (unknown) (unknown) [id number] (units (unkno wn) date) unknown) (unknown) (no (unknown) (unknown) 3. Hypokalemia, (units (unknown) date) acute, present on unknown) admission likely secondary to cyclic vomiting (unknown) (no (unknown) (unknown) 4. Acute (units (unkno wn) date) angioedema, not unknown) present on admission (unknown) (no (unknown) (unknown) 5. Perineal rash (units (unknown) date) unknown) (unknown) (no (unknown) (unknown) ALT (units (unkno wn) date) unknown) (unknown) (no (unknown) (unknown) ALT 15 (units (unkno wn) date) unknown) (unknown) (no (unknown) (unknown) ALT 36, ketones (units (unknown) date) are negative.? unknown) Patient is admitted for cyclic nausea and (unknown) (no (unknown) (unknown) AST (units (unkno wn) date) unknown) (unknown) (no (unknown) (unknown) AST 26 (units (unkno wn) date) unknown) (unknown) (no (unknown) (unknown) Abscess (units (unkno wn) date) unknown) (unknown) (no (unknown) (unknown) Addendum: Patient (units (unknown) date) presented with unknown) angioedema at approximately 3:00 p.m. this (unknown) (no (unknown) (unknown) Age/Sex: 46 / F (units (unknown) date) unknown) (unknown) (no (unknown) (unknown) Albumin (units (unkno wn) date) unknown) (unknown) (no (unknown) (unknown) Albumin 4.4 (units (un known) date) unknown) (unknown) (no (unknown) (unknown) Albumin/Globulin (units (unknown) date) Ratio unknown) (unknown) (no (unknown) (unknown) Albumin/Globulin (units (unknown) date) Ratio 1.3 unknown) (unknown) (no (unknown) (unknown) Alkaline (units (unkno wn) date) Phosphatase unknown) (unknown) (no (unknown) (unknown) Alkaline (units (unkno wn) date) Phosphatase 65 unknown) (unknown) (no (unknown) (unknown) Amorphous Sediment (units (unknown) date) unknown) (unknown) (no (unknown) (unknown) Amorphous Sediment (units (unknown) date) 1+ unknown) (unknown) (no (unknown) (unknown) BACK: Nontender (units (unknown) date) without deformity unknown) or crepitance. No flank tenderness. (unknown) (no (unknown) (unknown) BUN 20 H 17 (units (un known) date) unknown) (unknown) (no (unknown) (unknown) BUN 24 H (units (unkno wn) date) unknown) (unknown) (no (unknown) (unknown) BUN/Creatinine (units (unknown) date) Ratio 19.4 19.3 unknown) (unknown) (no (unknown) (unknown) BUN/Creatinine (units (unknown) date) Ratio 16.3 unknown) (unknown) (no (unknown) (unknown) Baso # (Auto) (units ( unknown) date) unknown) (unknown) (no (unknown) (unknown) Baso # (Auto) 0 (units (unknown) date) unknown) (unknown) (no (unknown) (unknown) Baso % (Auto) (units ( unknown) date) unknown) (unknown) (no (unknown) (unknown) Baso % (Auto) 0.3 (units (unknown) date) unknown) (unknown) (no (unknown) (unknown) Blood Pressure (units (unknown) date) 143/97 H unknown) (unknown) (no (unknown) (unknown) C1 esterase enzyme (units (unknown) date) functional. These unknown) labs will not result until after she is (unknown) (no (unknown) (unknown) CARDIOVASCULAR: (units (unknown) date) Regular rate and unknown) rhythm without murmurs, gallops, or rubs. (unknown) (no (unknown) (unknown) Calcium 8.9 9.2 (units (unknown) date) unknown) (unknown) (no (unknown) (unknown) Calcium 9.0 (units (un known) date) unknown) (unknown) (no (unknown) (unknown) Carbon Dioxide 33 (units (unknown) date) H 34 H unknown) (unknown) (no (unknown) (unknown) Carbon Dioxide 34 (units (unknown) date) H unknown) (unknown) (no (unknown) (unknown) Chief complaint: (units (unknown) date) Vomiting, SOB unknown) (unknown) (no (unknown) (unknown) Chloride 92 L 95 L (units (unknown) date) unknown) (unknown) (no (unknown) (unknown) Chloride 92 L (units ( unknown) date) unknown) (unknown) (no (unknown) (unknown) Chronic abdominal (units (unknown) date) pain unknown) (unknown) (no (unknown) (unknown) Continued (units (unkn own) date) unknown) (unknown) (no (unknown) (unknown) Creatinine 1.03 (units (unknown) date) 0.88 unknown) (unknown) (no (unknown) (unknown) Creatinine 1.47 H (units (unknown) date) unknown) (unknown) (no (unknown) (unknown) Cyclic vomiting (units (unknown) date) syndrome unknown) (unknown) (no (unknown) (unknown) : 1975 (units (unknown) date) Acct:[id number] unknown) (unknown) (no (unknown) (unknown) Date of admission: (units (unknown) date) unknown) (unknown) (no (unknown) (unknown) Daughter (units (unkno wn) date) Angio-edema unknown) (unknown) (no (unknown) (unknown) Deep Vein (units (unkn own) date) Thrombosis/Pulmonar unknown) y Embolism Present on Admission: No (unknown) (no (unknown) (unknown) Discharge Data (units (unknown) date) unknown) (unknown) (no (unknown) (unknown) Discharge Date: (units (unknown) date) 03/21/22 unknown) (unknown) (no (unknown) (unknown) Discharge (units (unkn own) date) Diagnosis: unknown) (unknown) (no (unknown) (unknown) Discharge Plan (units (unknown) date) unknown) (unknown) (no (unknown) (unknown) Discharge (units (unkn own) date) Providers unknown) (unknown) (no (unknown) (unknown) Discharge orders + (units (unknown) date) Medications unknown) (unknown) (no (unknown) (unknown) Discharge (units (unkn own) date) provider: unknown) (unknown) (no (unknown) (unknown) ENT:? Dry mucous (units (unknown) date) membranes Nose unknown) without bleeding, purulent drainage. Tongue (unknown) (no (unknown) (unknown) EXTREMITIES: No (units (unknown) date) edema or joint unknown) tenderness. (unknown) (no (unknown) (unknown) EYES: Pupils equal (units (unknown) date) round and reactive. unknown) Extraocular motions intact. No scleral (unknown) (no (unknown) (unknown) Eos # (Auto) (units (u nknown) date) unknown) (unknown) (no (unknown) (unknown) Eos # (Auto) 0 (units (unknown) date) unknown) (unknown) (no (unknown) (unknown) Eos % (Auto) (units (u nknown) date) unknown) (unknown) (no (unknown) (unknown) Eos % (Auto) 0.0 L (units (unknown) date) unknown) (unknown) (no (unknown) (unknown) Estimated GFR > 60 (units (unknown) date) > 60 unknown) (unknown) (no (unknown) (unknown) Estimated GFR 44 L (units (unknown) date) unknown) (unknown) (no (unknown) (unknown) Exam (units (unkno wn) date) unknown) (unknown) (no (unknown) (unknown) Exam Narrative: (units (unknown) date) unknown) (unknown) (no (unknown) (unknown) Family History (units (unknown) date) (Reviewed 03/20/22 unknown) @ 06:52 by MATHEUS Ann) (unknown) (no (unknown) (unknown) Family history of (units (unknown) date) angioedema unknown) (unknown) (no (unknown) (unknown) Father (units (unkno wn) date) Hypertension unknown) (unknown) (no (unknown) (unknown) Follow (units (unkno wn) date) up/Referrals: unknown) (unknown) (no (unknown) (unknown) GASTROINTESTINAL: (units (unknown) date) Abdomen soft, unknown) generalized abdominal pain, nondistended.? Bowel (unknown) (no (unknown) (unknown) GENERAL: [46] year (units (unknown) date) old patient appears unknown) stated age. intermittently tearful. (unknown) (no (unknown) (unknown) GFR>60, creatinine (units (unknown) date) 0.62.? Patient's unknown) total protein 11, globulin 5.2, albumin 5.8, (unknown) (no (unknown) (unknown) Globulin (units (unkno wn) date) unknown) (unknown) (no (unknown) (unknown) Globulin 3.5 (units (u nknown) date) unknown) (unknown) (no (unknown) (unknown) Glucose 161 H 114 (units (unknown) date) H unknown) (unknown) (no (unknown) (unknown) Glucose 120 H (units ( unknown) date) unknown) (unknown) (no (unknown) (unknown) Granular Casts (units (unknown) date) unknown) (unknown) (no (unknown) (unknown) Granular Casts (units (unknown) date) 1-5/lpf unknown) (unknown) (no (unknown) (unknown) HEAD: Atraumatic. (units (unknown) date) Normocephalic. unknown) (unknown) (no (unknown) (unknown) Hct (units (unkno wn) date) unknown) (unknown) (no (unknown) (unknown) Hct 38.8 (units (unkno wn) date) unknown) (unknown) (no (unknown) (unknown) Hgb (units (unkno wn) date) unknown) (unknown) (no (unknown) (unknown) Hgb 13.1 (units (unkno wn) date) unknown) (unknown) (no (unknown) (unknown) History of Present (units (unknown) date) Illness unknown) (unknown) (no (unknown) (unknown) Hospital Course (units (unknown) date) unknown) (unknown) (no (unknown) (unknown) Hospital Course: (units (unknown) date) unknown) (unknown) (no (unknown) (unknown) Hx of appendectomy (units (unknown) date) unknown) (unknown) (no (unknown) (unknown) Hx of (units (unkno wn) date) cholecystectomy unknown) (unknown) (no (unknown) (unknown) Hyaline Casts (units ( unknown) date) unknown) (unknown) (no (unknown) (unknown) Hyaline Casts (units ( unknown) date) 5-10/lpf unknown) (unknown) (no (unknown) (unknown) Sergo Martino MD (units (unknown) date) [Primary Care unknown) Provider] - (unknown) (no (unknown) (unknown) Labs (units (unkno wn) date) unknown) (unknown) (no (unknown) (unknown) Labs: (units (unkno wn) date) unknown) (unknown) (no (unknown) (unknown) Lymph # (Auto) (units (unknown) date) unknown) (unknown) (no (unknown) (unknown) Lymph # (Auto) 700 (units (unknown) date) L unknown) (unknown) (no (unknown) (unknown) Lymph % (Auto) (units (unknown) date) unknown) (unknown) (no (unknown) (unknown) Lymph % (Auto) (units (unknown) date) 13.9 L unknown) (unknown) (no (unknown) (unknown) MCH (units (unkno wn) date) unknown) (unknown) (no (unknown) (unknown) MCH 31.5 (units (unkno wn) date) unknown) (unknown) (no (unknown) (unknown) MCHC (units (unkno wn) date) unknown) (unknown) (no (unknown) (unknown) MCHC 33.8 (units (unkn own) date) unknown) (unknown) (no (unknown) (unknown) MCV (units (unkno wn) date) unknown) (unknown) (no (unknown) (unknown) MCV 92.9 (units (unkno wn) date) unknown) (unknown) (no (unknown) (unknown) 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 (unknown) (no (unknown) (unknown) Marijuana use, (units (unknown) date) continuous unknown) (unknown) (no (unknown) (unknown) Irving Lakhani, (units (unknown) date) DO unknown) (unknown) (no (unknown) (unknown) Medical History (units (unknown) date) (Reviewed 03/20/22 unknown) @ 06:52 by Kylee Arauz [facility]) (unknown) (no (unknown) (unknown) Dameon Castro is a (units (unknown) date) 46-year-old female unknown) with history of cyclic vomiting and (unknown) (no (unknown) (unknown) Centre # (Auto) (units ( unknown) date) unknown) (unknown) (no (unknown) (unknown) Centre # (Auto) 200 (units (unknown) date) unknown) (unknown) (no (unknown) (unknown) Centre % (Auto) (units ( unknown) date) unknown) (unknown) (no (unknown) (unknown) Centre % (Auto) 3.4 (units (unknown) date) unknown) (unknown) (no (unknown) (unknown) Mother Diabetes (units (unknown) date) mellitus unknown) (unknown) (no (unknown) (unknown) NECK: Trachea (units ( unknown) date) midline. Non tender unknown) (unknown) (no (unknown) (unknown) NEURO: AOx3. (units (u nknown) date) unknown) (unknown) (no (unknown) (unknown) Narrative (units (unkn own) date) unknown) (unknown) (no (unknown) (unknown) Narrative: (units (unk nown) date) unknown) (unknown) (no (unknown) (unknown) Neut # (Auto) (units ( unknown) date) unknown) (unknown) (no (unknown) (unknown) Neut # (Auto) 4400 (units (unknown) date) unknown) (unknown) (no (unknown) (unknown) Neut % (Auto) (units ( unknown) date) unknown) (unknown) (no (unknown) (unknown) Neut % (Auto) 82.4 (units (unknown) date) H unknown) (unknown) (no (unknown) (unknown) New (units (unkno wn) date) unknown) (unknown) (no (unknown) (unknown) Objective (units (unkn own) date) unknown) (unknown) (no (unknown) (unknown) On admit patient (units (unknown) date) presents afebrile unknown) temp 98.5?, BP 135/94, HR 99, RR 18, O2 (unknown) (no (unknown) (unknown) Other Colon cancer (units (unknown) date) unknown) (unknown) (no (unknown) (unknown) Oxygen Delivery (units (unknown) date) Method Room Air unknown) (unknown) (no (unknown) (unknown) Oxygen Delivery (units (unknown) date) Method Room Air unknown) (unknown) (no (unknown) (unknown) Oxygen Flow Rate 0 (units (unknown) date) unknown) (unknown) (no (unknown) (unknown) Oxygen Flow Rate 0 (units (unknown) date) unknown) (unknown) (no (unknown) (unknown) PFSH (units (unkno wn) date) unknown) (unknown) (no (unknown) (unknown) Pancreatitis (units (u nknown) date) unknown) (unknown) (no (unknown) (unknown) Patient (units (unkno wn) date) Disposition: Home unknown) (unknown) (no (unknown) (unknown) Patient admitted (units (unknown) date) for NV, SERGEY and unknown) hypokalemia. These all improved however she (unknown) (no (unknown) (unknown) Patient: (units (unkno wn) date) Dameon Castro MR#: unknown) [id number] (unknown) (no (unknown) (unknown) Plt Count (units (unkn own) date) unknown) (unknown) (no (unknown) (unknown) Plt Count 224 (units ( unknown) date) unknown) (unknown) (no (unknown) (unknown) Potassium 3.0 L (units (unknown) date) 3.2 L unknown) (unknown) (no (unknown) (unknown) Potassium 3.6 (units ( unknown) date) unknown) (unknown) (no (unknown) (unknown) Prescriptions: (units (unknown) date) unknown) (unknown) (no (unknown) (unknown) Primary Care (units (u nknown) date) Provider: unknown) Sergo Martino (unknown) (no (unknown) (unknown) Primary care (units (u nknown) date) physician: unknown) (unknown) (no (unknown) (unknown) Provider (units (unkno wn) date) unknown) (unknown) (no (unknown) (unknown) Provider Discharge (units (unknown) date) Comment: Your unknown) admitted for nausea and vomiting causing (unknown) (no (unknown) (unknown) Provider: (units (unkn own) date) Irving Lakhani unknown) D.O. (unknown) (no (unknown) (unknown) Pulse Oximetry 98 (units (unknown) date) 98 unknown) (unknown) (no (unknown) (unknown) Pulse Rate 56 L (units (unknown) date) unknown) (unknown) (no (unknown) (unknown) Quality (units (unkno wn) date) unknown) (unknown) (no (unknown) (unknown) RBC (units (unkno wn) date) unknown) (unknown) (no (unknown) (unknown) RBC 4.17 (units (unkno wn) date) unknown) (unknown) (no (unknown) (unknown) RDW (units (unkno wn) date) unknown) (unknown) (no (unknown) (unknown) RDW 13.3 (units (unkno wn) date) unknown) (unknown) (no (unknown) (unknown) RESPIRATORY: Clear (units (unknown) date) to auscultation. unknown) Breath sounds equal bilaterally. No wheezes, (unknown) (no (unknown) (unknown) Respiratory Rate (units (unknown) date) 17 unknown) (unknown) (no (unknown) (unknown) Result Diagrams: (units (unknown) date) unknown) (unknown) (no (unknown) (unknown) SKIN: Perineal (units (unknown) date) rash with scaly unknown) flaky patches extending from back of L thigh to (unknown) (no (unknown) (unknown) Signed (units (unkno wn) date) By:<Electronically unknown) signed by Irving Lakhani D.O.> (unknown) (no (unknown) (unknown) Smoking Status: (units (unknown) date) Current every day unknown) smoker (unknown) (no (unknown) (unknown) Social History (units (unknown) date) (Reviewed 03/20/22 unknown) @ 05:09 by Tremayne Jovel DO) (unknown) (no (unknown) (unknown) Sodium 136 L 135 L (units (unknown) date) unknown) (unknown) (no (unknown) (unknown) Sodium 136 L (units (u nknown) date) unknown) (unknown) (no (unknown) (unknown) Summary (units (unkno wn) date) unknown) (unknown) (no (unknown) (unknown) Surgical History (units (unknown) date) (Reviewed 03/20/22 unknown) @ 06:52 by MATHEUS Ann) (unknown) (no (unknown) (unknown) Temperature 97.1 F (units (unknown) date) L unknown) (unknown) (no (unknown) (unknown) Total Bilirubin (units (unknown) date) unknown) (unknown) (no (unknown) (unknown) Total Bilirubin (units (unknown) date) 1.5 H unknown) (unknown) (no (unknown) (unknown) Total Protein (units ( unknown) date) unknown) (unknown) (no (unknown) (unknown) Total Protein 7.9 (units (unknown) date) unknown) (unknown) (no (unknown) (unknown) Trigger for the (units (unknown) date) edema unclear, as unknown) patient not received any offending (unknown) (no (unknown) (unknown) U Benzodiazepines (units (unknown) date) Scrn unknown) (unknown) (no (unknown) (unknown) U Benzodiazepines (units (unknown) date) Scrn Negative unknown) (unknown) (no (unknown) (unknown) U Marijuana (THC) (units (unknown) date) Screen unknown) (unknown) (no (unknown) (unknown) U Marijuana (THC) (units (unknown) date) Screen Positive H unknown) (unknown) (no (unknown) (unknown) U Methamphetamines (units (unknown) date) Scrn unknown) (unknown) (no (unknown) (unknown) U Methamphetamines (units (unknown) date) Scrn Negative unknown) (unknown) (no (unknown) (unknown) U Opiates 300ng/mL (units (unknown) date) cut unknown) (unknown) (no (unknown) (unknown) U Opiates 300ng/mL (units (unknown) date) cut Negative unknown) (unknown) (no (unknown) (unknown) U Tricyclic (units (un known) date) Antidepress unknown) (unknown) (no (unknown) (unknown) U Tricyclic (units (un known) date) Antidepress unknown) Positive H (unknown) (no (unknown) (unknown) Ur Amphetamines (units (unknown) date) Screen unknown) (unknown) (no (unknown) (unknown) Ur Amphetamines (units (unknown) date) Screen Negative unknown) (unknown) (no (unknown) (unknown) Ur Barbiturates (units (unknown) date) Screen unknown) (unknown) (no (unknown) (unknown) Ur Barbiturates (units (unknown) date) Screen Negative unknown) (unknown) (no (unknown) (unknown) Ur Culture (units (unk nown) date) Indicated? unknown) (unknown) (no (unknown) (unknown) Ur Culture (units (unk nown) date) Indicated? Specimen unknown) cultured (unknown) (no (unknown) (unknown) Ur Leukocyte (units (u nknown) date) Esterase unknown) (unknown) (no (unknown) (unknown) Ur Leukocyte (units (u nknown) date) Esterase Trace H unknown) (unknown) (no (unknown) (unknown) Ur MDMA Scrn (units (u nknown) date) (Ecstasy) unknown) (unknown) (no (unknown) (unknown) Ur MDMA Scrn (units (u nknown) date) (Ecstasy) Negative unknown) (unknown) (no (unknown) (unknown) Ur Oxycodone (units (u nknown) date) Screen unknown) (unknown) (no (unknown) (unknown) Ur Oxycodone (units (u nknown) date) Screen Negative unknown) (unknown) (no (unknown) (unknown) Ur Phencyclidine (units (unknown) date) Scrn unknown) (unknown) (no (unknown) (unknown) Ur Phencyclidine (units (unknown) date) Scrn Negative unknown) (unknown) (no (unknown) (unknown) Ur Specific (units (un known) date) [place] unknown) (unknown) (no (unknown) (unknown) Ur Specific (units (un known) date) [place] 1.015 unknown) (unknown) (no (unknown) (unknown) Ur Squamous Epith (units (unknown) date) Cells unknown) (unknown) (no (unknown) (unknown) Ur Squamous Epith (units (unknown) date) Cells 1-5 /hpf unknown) (unknown) (no (unknown) (unknown) Urine Appearance (units (unknown) date) unknown) (unknown) (no (unknown) (unknown) Urine Appearance (units (unknown) date) Clear unknown) (unknown) (no (unknown) (unknown) Urine Bacteria (units (unknown) date) unknown) (unknown) (no (unknown) (unknown) Urine Bacteria Few (units (unknown) date) (2-10) H unknown) (unknown) (no (unknown) (unknown) Urine Bilirubin (units (unknown) date) unknown) (unknown) (no (unknown) (unknown) Urine Bilirubin (units (unknown) date) Negative unknown) (unknown) (no (unknown) (unknown) Urine Cocaine (units ( unknown) date) Screen unknown) (unknown) (no (unknown) (unknown) Urine Cocaine (units ( unknown) date) Screen Positive H unknown) (unknown) (no (unknown) (unknown) Urine Color (units (un known) date) unknown) (unknown) (no (unknown) (unknown) Urine Color Yellow (units (unknown) date) unknown) (unknown) (no (unknown) (unknown) Urine Glucose (UA) (units (unknown) date) unknown) (unknown) (no (unknown) (unknown) Urine Glucose (UA) (units (unknown) date) Negative unknown) (unknown) (no (unknown) (unknown) Urine Ketones (units ( unknown) date) unknown) (unknown) (no (unknown) (unknown) Urine Ketones (units ( unknown) date) Trace H unknown) (unknown) (no (unknown) (unknown) Urine Methadone (units (unknown) date) Screen unknown) (unknown) (no (unknown) (unknown) Urine Methadone (units (unknown) date) Screen Negative unknown) (unknown) (no (unknown) (unknown) Urine Mucus (units (un known) date) unknown) (unknown) (no (unknown) (unknown) Urine Mucus 1+ H (units (unknown) date) unknown) (unknown) (no (unknown) (unknown) Urine Nitrate (units ( unknown) date) unknown) (unknown) (no (unknown) (unknown) Urine Nitrate (units ( unknown) date) Negative unknown) (unknown) (no (unknown) (unknown) Urine Occult Blood (units (unknown) date) unknown) (unknown) (no (unknown) (unknown) Urine Occult Blood (units (unknown) date) 1+ H unknown) (unknown) (no (unknown) (unknown) Urine Protein (units ( unknown) date) unknown) (unknown) (no (unknown) (unknown) Urine Protein 3+ H (units (unknown) date) unknown) (unknown) (no (unknown) (unknown) Urine RBC (units (unkn own) date) unknown) (unknown) (no (unknown) (unknown) Urine RBC 0-1/hpf (units (unknown) date) unknown) (unknown) (no (unknown) (unknown) Urine Urobilinogen (units (unknown) date) unknown) (unknown) (no (unknown) (unknown) Urine Urobilinogen (units (unknown) date) 0.2 unknown) (unknown) (no (unknown) (unknown) Urine WBC (units (unkn own) date) unknown) (unknown) (no (unknown) (unknown) Urine WBC 5-10/hpf (units (unknown) date) H unknown) (unknown) (no (unknown) (unknown) Urine pH (units (unkno wn) date) unknown) (unknown) (no (unknown) (unknown) Urine pH 7.5 (units (u nknown) date) unknown) (unknown) (no (unknown) (unknown) VTE (units (unkno wn) date) unknown) (unknown) (no (unknown) (unknown) Vital Signs (units (un known) date) unknown) (unknown) (no (unknown) (unknown) WBC (units (unkno wn) date) unknown) (unknown) (no (unknown) (unknown) WBC 5.4 D (units (unkn own) date) unknown) (unknown) (no (unknown) (unknown) Sergo Martino MD (units (unknown) date) unknown) (unknown) (no (unknown) (unknown) [Embedded Image (units (unknown) date) Not Available] unknown) (unknown) (no (unknown) (unknown) abdominal (units (unkn own) date) migraines presents unknown) under similar circumstances complaining of (unknown) (no (unknown) (unknown) afternoon patient (units (unknown) date) was given initial unknown) doses of Benadryl and epinephrine when s (unknown) (no (unknown) (unknown) alcohol intake: (units (unknown) date) current unknown) (unknown) (no (unknown) (unknown) alkalosis, acute, (units (unknown) date) present on unknown) admission (unknown) (no (unknown) (unknown) alkalosis- VBG is (units (unknown) date) pH 7.6, CO2 45, PO2 unknown) 52, HC03 44, O2 saturation 91%, base (unknown) (no (unknown) (unknown) anesthesiology.? (units (unknown) date) Patient's airway is unknown) patent in she is in no respiratory distress (unknown) (no (unknown) (unknown) antifungals (units (un known) date) unknown) (unknown) (no (unknown) (unknown) at this time and (units (unknown) date) is stable.? Will unknown) monitor patient closely. (unknown) (no (unknown) (unknown) better. I am (units (un known) date) sending you home on unknown) daily potassium supplement. About swelling of (unknown) (no (unknown) (unknown) bowel or bladder (units (unknown) date) issues, recent unknown) illness injury or trauma.? Patient does endorse (unknown) (no (unknown) (unknown) buttock. Itchy per (units (unknown) date) patient. unknown) (unknown) (no (unknown) (unknown) checked some labs (units (unknown) date) to test for this. I unknown) also put you on 1 week of oral (unknown) (no (unknown) (unknown) compromise. (units (un known) date) unknown) (unknown) (no (unknown) (unknown) currently not (units ( unknown) date) swollen, but unknown) previously purple and swollen without airway (unknown) (no (unknown) (unknown) dehydration to your (units (unknown) date) kidneys and low unknown) potassium. Your kidney function improved to (unknown) (no (unknown) (unknown) developed acute (units (unknown) date) onset angioedema unknown) with swollen tongue but no airway compromise. (unknown) (no (unknown) (unknown) discharged so (units ( unknown) date) instructed PCP to unknown) f/u on them. She also developed a worsening (unknown) (no (unknown) (unknown) excess 23 patient (units (unknown) date) does have a white unknown) count of 12 with a left shift neutrophils (unknown) (no (unknown) (unknown) function labs, (units (unknown) date) still pending on unknown) discharge (unknown) (no (unknown) (unknown) fungal rash in (units (unknown) date) perineum so I sent unknown) home on oral fluconazole for 4 weeks and (unknown) (no (unknown) (unknown) fungal so I am (units ( unknown) date) starting you on an unknown) antifungal pill and cream. Do not take Zofran (unknown) (no (unknown) (unknown) generalized (units (un known) date) abdominal pain and unknown) frequent vomiting over the past 2 days despite (unknown) (no (unknown) (unknown) her hands which is (units (unknown) date) not normal for unknown) her.? She denies any new medications or change (unknown) (no (unknown) (unknown) histamine blocking (units (unknown) date) agents.? At unknown) approximately 9:30 p.m. ordered Tranexamic Acid (unknown) (no (unknown) (unknown) household members: (units (unknown) date) spouse unknown) (unknown) (no (unknown) (unknown) icterus. No (units (un known) date) injection or unknown) drainage. (unknown) (no (unknown) (unknown) in her diet.? She (units (unknown) date) denies any recent unknown) travel.? Patient denies chest pain, (unknown) (no (unknown) (unknown) labs as a take up (units (unknown) date) to a week to unknown) result. The rash on your bottom appears to be (unknown) (no (unknown) (unknown) lactate 2.2 (units (un known) date) patient has a gap unknown) of 26, calcium is 10.9, total bili 1.7, AST 39, (unknown) (no (unknown) (unknown) medications. 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 again to see what they think (unknown) (no (unknown) (unknown) on coco inhibitors. (units (unknown) date) She states has been unknown) occuring since her COVID vaccine. (unknown) (no (unknown) (unknown) once after at (units ( unknown) date) least 2 hours unknown) (unknown) (no (unknown) (unknown) patient may have a (units (unknown) date) underlying unknown) infectious disease process as well. (unknown) (no (unknown) (unknown) prednisone. Please (units (unknown) date) see your primary unknown) care doctor so they can check for these (unknown) (no (unknown) (unknown) recent illness, or (units (unknown) date) exposure, blood in unknown) her vomit, blood in urine blood in stool, (unknown) (no (unknown) (unknown) resolve was given (units (unknown) date) secondary dose of unknown) Solu-Medrol 60mg? demonstrating resistant to (unknown) (no (unknown) (unknown) results. (units (unkno wn) date) unknown) (unknown) (no (unknown) (unknown) saturation 100% on (units (unknown) date) room air.? Patient unknown) presents with respiratory and metabolic (unknown) (no (unknown) (unknown) shortness of (units (u nknown) date) breath, upper unknown) respiratory symptoms, fever, body aches, chills, (unknown) (no (unknown) (unknown) states that over (units (unknown) date) the course of the unknown) day she is developed cramping and tingling in (unknown) (no (unknown) (unknown) the use of her (units (unknown) date) home Zofran and unknown) suppository.? She has terrible appetite and (unknown) (no (unknown) (unknown) topical (units (unkno wn) date) miconazole. unknown) Instructed her to see derm if it does not improve. (unknown) (no (unknown) (unknown) urinary urgency (units (unknown) date) and frequency. unknown) (unknown) (no (unknown) (unknown) very itchy and (units (unknown) date) red. States it was unknown) biopsied in past by derm but doesn't know the (unknown) (no (unknown) (unknown) vomiting has (units (u nknown) date) ceased. unknown) (unknown) (no (unknown) (unknown) vomiting with (units ( unknown) date) respiratory unknown) metabolic alkalosis, SERGEY and hypokalemia. (unknown) (no (unknown) (unknown) x-ray and UA (units (u nknown) date) unknown) (unknown) (no (unknown) (unknown) ymptoms did not (units (unknown) date) resolve she was unknown) given Solu-Medrol 60mg, symptoms still did not Result panel 44 (unknown) (no date) (unknown) (unknown) 20 mg/dL (unkn own) (unknown) (no date) (unknown) (unknown) 29 mg/dL (unkn own) Result panel 45 (unknown) (no date) (unknown) (unknown) 93 (units unknown) (unknown) Result panel 46 (unknown) (no (unknown) (unknown) (no value) (units (unk nown) date) unknown) (unknown) (no (unknown) (unknown) Date of Service: (units (unknown) date) 04/13/22 unknown) (unknown) (no (unknown) (unknown) (no value) (units (unk nown) date) unknown) (unknown) (no (unknown) (unknown) 0.5 mg PO DAILY (units (unknown) date) PRN (Reason: unknown) nausea and vomiting) Qty: 10 0RF (unknown) (no (unknown) (unknown) 1 applic topical (units (unknown) date) BID Qty: 30 0RF unknown) (unknown) (no (unknown) (unknown) 100 mg PO DAILY (units (unknown) date) unknown) (unknown) (no (unknown) (unknown) 20 meq PO DAILY (units (unknown) date) Qty: 30 0RF unknown) (unknown) (no (unknown) (unknown) 200 mg PO WEEKLY (units (unknown) date) 28 Days Qty: 4 0RF unknown) (unknown) (no (unknown) (unknown) 4 mg PO Q8H PRN (units (unknown) date) (Reason: nausea unknown) and vomiting) Qty: 10 0RF (unknown) (no (unknown) (unknown) 5 mg PO DAILY (units ( unknown) date) unknown) (unknown) (no (unknown) (unknown) 5 mg intranasal (units (unknown) date) Q2-4H PRN (Reason: unknown) migraine headache) Qty: 1 0RF (unknown) (no (unknown) (unknown) 8 mg PO TID PRN (units (unknown) date) (Reason: Nausea) unknown) (unknown) (no (unknown) (unknown) ABLE TO (units (unkno wn) date) unknown) (unknown) (no (unknown) (unknown) Allergies (units (unkn own) date) unknown) (unknown) (no (unknown) (unknown) Apply 1 gram of (units (unknown) date) cream to rash unknown) twice daily until rash resolves up to 4 weeks. (unknown) (no (unknown) (unknown) Emergency Report (units (unknown) date) unknown) (unknown) (no (unknown) (unknown) Home Medications (units (unknown) date) unknown) (unknown) (no (unknown) (unknown) [facility] (units (unknown) date) [address] unknown) [place] [address] (unknown) (no (unknown) (unknown) Label Comments: (units (unknown) date) unknown) (unknown) (no (unknown) (unknown) PT STATES (units (unkn own) date) unknown) (unknown) (no (unknown) (unknown) Previous Rx's (units ( unknown) date) unknown) (unknown) (no (unknown) (unknown) Rx Instructions: (units (unknown) date) unknown) (unknown) (no (unknown) (unknown) TAKE [facility] (units (unkno wn) date) unknown) (unknown) (no (unknown) (unknown) TO IV SITE (units (unk n) date) unknown) (unknown) (no (unknown) (unknown) dissolve 1 tablet (units (unknown) date) by mouth up to unknown) three times a day (unknown) (no (unknown) (unknown) into each nostril (units (unknown) date) once; if abdominal unknown) migraine remains, may repeat total dose (unknown) (no (unknown) (unknown) take 1 tablet by (units (unknown) date) mouth once daily unknown) (unknown) (no (unknown) (unknown) take 1 tablet (units ( unknown) date) once weekly until unknown) rash resolves up to 4 weeks (unknown) (no (unknown) (unknown) (no value) (units (unk n) date) unknown) (unknown) (no (unknown) (unknown) amlodipine 5 mg (units (unknown) date) tablet unknown) (unknown) (no (unknown) (unknown) bupropion HCl 100 (units (unknown) date) mg tablet unknown) sustained-release 12 hr (unknown) (no (unknown) (unknown) fluconazole 200 (units (unknown) date) mg tablet unknown) (unknown) (no (unknown) (unknown) lorazepam (units (unkn own) date) [Ativan] 0.5 mg unknown) tablet (unknown) (no (unknown) (unknown) miconazole (units (unk n) date) nitrate 2 % cream unknown) (unknown) (no (unknown) (unknown) ondansetron 4 mg (units (unknown) date) tablet,disintegrat unknown) ing (unknown) (no (unknown) (unknown) ondansetron 8 mg (units (unknown) date) tablet,disintegrat unknown) ing (unknown) (no (unknown) (unknown) potassium (units (unkn own) date) chloride 20 mEq unknown) tablet extended release (unknown) (no (unknown) (unknown) sumatriptan 5 (units ( unknown) date) mg/actuation unknown) spray,non-aerosol (unknown) (no (unknown) (unknown) Medication (units (unk n) date) Instructions unknown) Recorded (unknown) (no (unknown) (unknown) Medication (units (unk nown) date) Instructions unknown) Recorded Confirmed (unknown) (no (unknown) (unknown) vomiting #10 tabs (units (unknown) date) unknown) (unknown) (no (unknown) (unknown) [id number] (units (unkno wn) date) unknown) (unknown) (no (unknown) (unknown) Abscess (units (unkno wn) date) unknown) (unknown) (no (unknown) (unknown) Age/Sex: 46 / F (units (unknown) date) unknown) (unknown) (no (unknown) (unknown) Alcohol type: (units ( unknown) date) wine unknown) (unknown) (no (unknown) (unknown) Allergy/AdvReac (units (unknown) date) Type Severity unknown) Reaction Status Date / Time (unknown) (no (unknown) (unknown) Chronic abdominal (units (unknown) date) pain unknown) (unknown) (no (unknown) (unknown) Cyclic vomiting (units (unknown) date) syndrome unknown) (unknown) (no (unknown) (unknown) : 1975 (units (unknown) date) Acct:[id number] unknown) (unknown) (no (unknown) (unknown) Daughter (units (unkno wn) date) Angio-edema unknown) (unknown) (no (unknown) (unknown) Departure (units (unkn own) date) unknown) (unknown) (no (unknown) (unknown) Discharge Plan (units (unknown) date) unknown) (unknown) (no (unknown) (unknown) ER Physician: (units ( unknown) date) Mine Harrington D.O. unknown) (unknown) (no (unknown) (unknown) Family History (units (unknown) date) (Reviewed 03/20/22 unknown) @ 06:52 by MATHEUS Ann) (unknown) (no (unknown) (unknown) Family history of (units (unknown) date) angioedema unknown) (unknown) (no (unknown) (unknown) Father (units (unkno wn) date) Hypertension unknown) (unknown) (no (unknown) (unknown) General (units (unkno wn) date) unknown) (unknown) (no (unknown) (unknown) HPI - (units (unkno wn) date) Nausea/Vomiting/Di unknown) arrhea (unknown) (no (unknown) (unknown) Hx of (units (unkno wn) date) appendectomy unknown) (unknown) (no (unknown) (unknown) Hx of (units (unkno wn) date) cholecystectomy unknown) (unknown) (no (unknown) (unknown) Sergo Martino MD (units (unknown) date) [Primary Care unknown) Provider] - (unknown) (no (unknown) (unknown) 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 (unknown) (no (unknown) (unknown) Marijuana use, (units (unknown) date) continuous unknown) (unknown) (no (unknown) (unknown) Medical History (units (unknown) date) (Reviewed 03/20/22 unknown) @ 06:52 [facility]) (unknown) (no (unknown) (unknown) Mother Diabetes (units (unknown) date) mellitus unknown) (unknown) (no (unknown) (unknown) No Action (units (unkn own) date) unknown) (unknown) (no (unknown) (unknown) Other Colon (units (un known) date) cancer unknown) (unknown) (no (unknown) (unknown) Pancreatitis (units (u nknown) date) unknown) (unknown) (no (unknown) (unknown) Patient History (units (unknown) date) unknown) (unknown) (no (unknown) (unknown) Patient: (units (unkno wn) date) Dameon Castro MR#: unknown) [id number] (unknown) (no (unknown) (unknown) Prescriptions: (units (unknown) date) unknown) (unknown) (no (unknown) (unknown) Referrals: (units (unk nown) date) unknown) (unknown) (no (unknown) (unknown) Related Data (units (u nknown) date) unknown) (unknown) (no (unknown) (unknown) Signed By: (units (unk nown) date) unknown) (unknown) (no (unknown) (unknown) Smoking Status: (units (unknown) date) Current every day unknown) smoker (unknown) (no (unknown) (unknown) Smoking Status: (units (unknown) date) Current every day unknown) smoker (unknown) (no (unknown) (unknown) Social History (units (unknown) date) (Reviewed 03/20/22 unknown) @ 05:09 by Tremayne Jovel DO) (unknown) (no (unknown) (unknown) Stated complaint: (units (unknown) date) cyclical vomiting unknown) (unknown) (no (unknown) (unknown) Substance Use (units ( unknown) date) Type: marijuana unknown) (unknown) (no (unknown) (unknown) Surgical History (units (unknown) date) (Reviewed 03/20/22 unknown) @ 06:52 by Kylee Arauz [facility]) (unknown) (no (unknown) (unknown) Time Seen by (units (u nknown) date) Provider: 04/13/22 unknown) 09:27 (unknown) (no (unknown) (unknown) [METOCLOPRAMIDE] (units (unknown) date) unknown) (unknown) (no (unknown) (unknown) alcohol intake (units (unknown) date) frequency: 3 or unknown) more drinks per day (unknown) (no (unknown) (unknown) alcohol intake: (units (unknown) date) current unknown) (unknown) (no (unknown) (unknown) amlodipine 5 mg (units (unknown) date) tablet 5 mg PO unknown) DAILY 03/20/22 03/20/22 (unknown) (no (unknown) (unknown) bupropion HCl 100 (units (unknown) date) mg tablet,12 hr unknown) 100 mg PO DAILY 03/20/22 03/20/22 (unknown) (no (unknown) (unknown) cream (units (unkno wn) date) unknown) (unknown) (no (unknown) (unknown) fluconazole 200 (units (unknown) date) mg tablet 200 mg unknown) PO WEEKLY 4 weeks #4 tabs 03/21/22 (unknown) (no (unknown) (unknown) household (units (unkn own) date) members: spouse unknown) (unknown) (no (unknown) (unknown) latex [LATEX] (units ( unknown) date) Allergy Unknown unknown) Verified 11/02/21 15:46 (unknown) (no (unknown) (unknown) lorazepam 0.5 mg (units (unknown) date) tablet (Ativan) unknown) 0.5 mg PO DAILY PRN nausea and 11/03/21 (unknown) (no (unknown) (unknown) metoclopramide (units (unknown) date) AdvReac Unknown unknown) DYSTONIA Verified 11/02/21 15:46 (unknown) (no (unknown) (unknown) miconazole (units (unk nown) date) nitrate 2 % unknown) topical 1 applic topical BID #30 grams 03/21/22 (unknown) (no (unknown) (unknown) once after at (units ( unknown) date) least 2 hours unknown) (unknown) (no (unknown) (unknown) ondansetron 4 mg (units (unknown) date) disintegrating 4 unknown) mg PO Q8H PRN nausea and 07/28/19 (unknown) (no (unknown) (unknown) ondansetron 8 mg (units (unknown) date) disintegrating 8 unknown) mg PO TID PRN Nausea 09/18/19 03/20/22 (unknown) (no (unknown) (unknown) potassium (units (unkn own) date) chloride 20 mEq 20 unknown) meq PO DAILY #30 tabs 03/21/22 (unknown) (no (unknown) (unknown) promethazine (units (u nknown) date) [PROMETHAZINE] unknown) Allergy Mild ERYTHEMA Verified 08/26/21 15:49 (unknown) (no (unknown) (unknown) spray headache #1 (units (unknown) date) ea unknown) (unknown) (no (unknown) (unknown) sumatriptan 5 (units ( unknown) date) mg/actuation nasal unknown) 5 mg intranasal Q2-4H PRN migraine 06/04/21 (unknown) (no (unknown) (unknown) sustained-release (units (unknown) date) unknown) (unknown) (no (unknown) (unknown) tablet (units (unkno wn) date) unknown) (unknown) (no (unknown) (unknown) tablet vomiting (units (unknown) date) #10 tabs unknown) (unknown) (no (unknown) (unknown) tablet,extended (units (unknown) date) release unknown) (unknown) (no (unknown) (unknown) tobacco type: (units ( unknown) date) vaping unknown) Result panel 47 (unknown) (no (unknown) (unknown) (no value) (units (unk nown) date) unknown) (unknown) (no (unknown) (unknown) Date of Service: (units (unknown) date) 04/13/22 unknown) (unknown) (no (unknown) (unknown) (no value) (units (unk nown) date) unknown) (unknown) (no (unknown) (unknown) 0.5 mg PO DAILY (units (unknown) date) PRN (Reason: unknown) nausea and vomiting) Qty: 10 0RF (unknown) (no (unknown) (unknown) 1 applic topical (units (unknown) date) BID Qty: 30 0RF unknown) (unknown) (no (unknown) (unknown) 100 mg PO DAILY (units (unknown) date) unknown) (unknown) (no (unknown) (unknown) 20 meq PO DAILY (units (unknown) date) Qty: 30 0RF unknown) (unknown) (no (unknown) (unknown) 200 mg PO WEEKLY (units (unknown) date) 28 Days Qty: 4 0RF unknown) (unknown) (no (unknown) (unknown) 4 mg PO Q8H PRN (units (unknown) date) (Reason: nausea unknown) and vomiting) Qty: 10 0RF (unknown) (no (unknown) (unknown) 5 mg PO DAILY (units ( unknown) date) unknown) (unknown) (no (unknown) (unknown) 5 mg intranasal (units (unknown) date) Q2-4H PRN (Reason: unknown) migraine headache) Qty: 1 0RF (unknown) (no (unknown) (unknown) 8 mg PO TID PRN (units (unknown) date) (Reason: Nausea) unknown) (unknown) (no (unknown) (unknown) ABLE TO (units (unkno wn) date) unknown) (unknown) (no (unknown) (unknown) Allergies (units (unkn own) date) unknown) (unknown) (no (unknown) (unknown) Apply 1 gram of (units (unknown) date) cream to rash unknown) twice daily until rash resolves up to 4 weeks. (unknown) (no (unknown) (unknown) Emergency Report (units (unknown) date) unknown) (unknown) (no (unknown) (unknown) Home Medications (units (unknown) date) unknown) (unknown) (no (unknown) (unknown) [facility] (units (unknown) date) [address] unknown) [place] [address] (unknown) (no (unknown) (unknown) Label Comments: (units (unknown) date) unknown) (unknown) (no (unknown) (unknown) PT STATES (units (unkn own) date) unknown) (unknown) (no (unknown) (unknown) Previous Rx's (units ( unknown) date) unknown) (unknown) (no (unknown) (unknown) Rx Instructions: (units (unknown) date) unknown) (unknown) (no (unknown) (unknown) TAKE [facility] (units (unkno wn) date) unknown) (unknown) (no (unknown) (unknown) TO IV SITE (units (unk nown) date) unknown) (unknown) (no (unknown) (unknown) dissolve 1 tablet (units (unknown) date) by mouth up to unknown) three times a day (unknown) (no (unknown) (unknown) into each nostril (units (unknown) date) once; if abdominal unknown) migraine remains, may repeat total dose (unknown) (no (unknown) (unknown) take 1 tablet by (units (unknown) date) mouth once daily unknown) (unknown) (no (unknown) (unknown) take 1 tablet (units ( unknown) date) once weekly until unknown) rash resolves up to 4 weeks (unknown) (no (unknown) (unknown) (no value) (units (unk nown) date) unknown) (unknown) (no (unknown) (unknown) amlodipine 5 mg (units (unknown) date) tablet unknown) (unknown) (no (unknown) (unknown) bupropion HCl 100 (units (unknown) date) mg tablet unknown) sustained-release 12 hr (unknown) (no (unknown) (unknown) fluconazole 200 (units (unknown) date) mg tablet unknown) (unknown) (no (unknown) (unknown) lorazepam (units (unkn own) date) [Ativan] 0.5 mg unknown) tablet (unknown) (no (unknown) (unknown) miconazole (units (unk nown) date) nitrate 2 % cream unknown) (unknown) (no (unknown) (unknown) ondansetron 4 mg (units (unknown) date) tablet,disintegrat unknown) ing (unknown) (no (unknown) (unknown) ondansetron 8 mg (units (unknown) date) tablet,disintegrat unknown) ing (unknown) (no (unknown) (unknown) potassium (units (unkn own) date) chloride 20 mEq unknown) tablet extended release (unknown) (no (unknown) (unknown) sumatriptan 5 (units ( unknown) date) mg/actuation unknown) spray,non-aerosol (unknown) (no (unknown) (unknown) Medication (units (unk nown) date) Instructions unknown) Recorded (unknown) (no (unknown) (unknown) Medication (units (unk nown) date) Instructions unknown) Recorded Confirmed (unknown) (no (unknown) (unknown) and below (units (unkn own) date) unknown) (unknown) (no (unknown) (unknown) vomiting #10 tabs (units (unknown) date) unknown) (unknown) (no (unknown) (unknown) [id number] (units (unkno wn) date) unknown) (unknown) (no (unknown) (unknown) Abscess (units (unkno wn) date) unknown) (unknown) (no (unknown) (unknown) Age/Sex: 46 / F (units (unknown) date) unknown) (unknown) (no (unknown) (unknown) Alcohol type: (units ( unknown) date) wine unknown) (unknown) (no (unknown) (unknown) Allergy/AdvReac (units (unknown) date) Type Severity unknown) Reaction Status Date / Time (unknown) (no (unknown) (unknown) Chronic abdominal (units (unknown) date) pain unknown) (unknown) (no (unknown) (unknown) Cyclic vomiting (units (unknown) date) syndrome unknown) (unknown) (no (unknown) (unknown) : 1975 (units (unknown) date) Acct:[id number] unknown) (unknown) (no (unknown) (unknown) Daughter (units (unkno wn) date) Angio-edema unknown) (unknown) (no (unknown) (unknown) Departure (units (unkn own) date) unknown) (unknown) (no (unknown) (unknown) Discharge Plan (units (unknown) date) unknown) (unknown) (no (unknown) (unknown) ER Physician: (units ( unknown) date) Mine Harirngton D.O. unknown) (unknown) (no (unknown) (unknown) Family History (units (unknown) date) (Reviewed 04/13/22 unknown) @ 09:35 by Mine Harrington DO) (unknown) (no (unknown) (unknown) Family history of (units (unknown) date) angioedema unknown) (unknown) (no (unknown) (unknown) Father (units (unkno wn) date) Hypertension unknown) (unknown) (no (unknown) (unknown) General (units (unkno wn) date) unknown) (unknown) (no (unknown) (unknown) HPI - (units (unkno wn) date) Nausea/Vomiting/Di unknown) arrhea (unknown) (no (unknown) (unknown) Hx of (units (unkno wn) date) appendectomy unknown) (unknown) (no (unknown) (unknown) Hx of (units (unkno wn) date) cholecystectomy unknown) (unknown) (no (unknown) (unknown) Sergo Martino MD (units (unknown) date) [Primary Care unknown) Provider] - (unknown) (no (unknown) (unknown) Limitations: no (units (unknown) date) limitations unknown) (unknown) (no (unknown) (unknown) 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 (unknown) (no (unknown) (unknown) Marijuana use, (units (unknown) date) continuous unknown) (unknown) (no (unknown) (unknown) Medical History (units (unknown) date) (Reviewed 04/13/22 unknown) @ 09:35 by Mine Harrington DO) (unknown) (no (unknown) (unknown) Mother Diabetes (units (unknown) date) mellitus unknown) (unknown) (no (unknown) (unknown) No Action (units (unkn own) date) unknown) (unknown) (no (unknown) (unknown) Other Colon (units (un known) date) cancer unknown) (unknown) (no (unknown) (unknown) Pancreatitis (units (u nknown) date) unknown) (unknown) (no (unknown) (unknown) Patient History (units (unknown) date) unknown) (unknown) (no (unknown) (unknown) Patient: (units (unkno wn) date) Dameon Castro MR#: unknown) [id number] (unknown) (no (unknown) (unknown) Prescriptions: (units (unknown) date) unknown) (unknown) (no (unknown) (unknown) ROS Unobtainable: (units (unknown) date) All systems unknown) reviewed + are unremarkable except as noted in HPI (unknown) (no (unknown) (unknown) Referrals: (units (unk nown) date) unknown) (unknown) (no (unknown) (unknown) Related Data (units (u nknown) date) unknown) (unknown) (no (unknown) (unknown) Review of Systems (units (unknown) date) unknown) (unknown) (no (unknown) (unknown) Signed By: (units (unk nown) date) unknown) (unknown) (no (unknown) (unknown) Smoking Status: (units (unknown) date) Current every day unknown) smoker (unknown) (no (unknown) (unknown) Smoking Status: (units (unknown) date) Current every day unknown) smoker (unknown) (no (unknown) (unknown) Social History (units (unknown) date) (Reviewed 04/13/22 unknown) @ 09:35 by Mine Harrington DO) (unknown) (no (unknown) (unknown) Source: patient (units (unknown) date) and old records unknown) reviewed (unknown) (no (unknown) (unknown) Stated complaint: (units (unknown) date) cyclical vomiting unknown) (unknown) (no (unknown) (unknown) Substance Use (units ( unknown) date) Type: marijuana unknown) (unknown) (no (unknown) (unknown) Surgical History (units (unknown) date) (Reviewed 04/13/22 unknown) @ 09:35 by Mine Harrington DO) (unknown) (no (unknown) (unknown) Time Seen by (units (u nknown) date) Provider: 04/13/22 unknown) 09:27 (unknown) (no (unknown) (unknown) [METOCLOPRAMIDE] (units (unknown) date) unknown) (unknown) (no (unknown) (unknown) alcohol intake (units (unknown) date) frequency: 3 or unknown) more drinks per day (unknown) (no (unknown) (unknown) alcohol intake: (units (unknown) date) current unknown) (unknown) (no (unknown) (unknown) amlodipine 5 mg (units (unknown) date) tablet 5 mg PO unknown) DAILY 03/20/22 03/20/22 (unknown) (no (unknown) (unknown) bupropion HCl 100 (units (unknown) date) mg tablet,12 hr unknown) 100 mg PO DAILY 03/20/22 03/20/22 (unknown) (no (unknown) (unknown) cream (units (unkno wn) date) unknown) (unknown) (no (unknown) (unknown) fluconazole 200 (units (unknown) date) mg tablet 200 mg unknown) PO WEEKLY 4 weeks #4 tabs 03/21/22 (unknown) (no (unknown) (unknown) household (units (unkn own) date) members: spouse unknown) (unknown) (no (unknown) (unknown) latex [LATEX] (units ( unknown) date) Allergy Unknown unknown) Verified 11/02/21 15:46 (unknown) (no (unknown) (unknown) lorazepam 0.5 mg (units (unknown) date) tablet (Ativan) unknown) 0.5 mg PO DAILY PRN nausea and 11/03/21 (unknown) (no (unknown) (unknown) metoclopramide (units (unknown) date) AdvReac Unknown unknown) DYSTONIA Verified 11/02/21 15:46 (unknown) (no (unknown) (unknown) miconazole (units (unk nown) date) nitrate 2 % unknown) topical 1 applic topical BID #30 grams 03/21/22 (unknown) (no (unknown) (unknown) once after at (units ( unknown) date) least 2 hours unknown) (unknown) (no (unknown) (unknown) ondansetron 4 mg (units (unknown) date) disintegrating 4 unknown) mg PO Q8H PRN nausea and 07/28/19 (unknown) (no (unknown) (unknown) ondansetron 8 mg (units (unknown) date) disintegrating 8 unknown) mg PO TID PRN Nausea 09/18/19 03/20/22 (unknown) (no (unknown) (unknown) potassium (units (unkn own) date) chloride 20 mEq 20 unknown) meq PO DAILY #30 tabs 03/21/22 (unknown) (no (unknown) (unknown) promethazine (units (u nknown) date) [PROMETHAZINE] unknown) Allergy Mild ERYTHEMA Verified 08/26/21 15:49 (unknown) (no (unknown) (unknown) spray headache #1 (units (unknown) date) ea unknown) (unknown) (no (unknown) (unknown) sumatriptan 5 (units ( unknown) date) mg/actuation nasal unknown) 5 mg intranasal Q2-4H PRN migraine 06/04/21 (unknown) (no (unknown) (unknown) sustained-release (units (unknown) date) unknown) (unknown) (no (unknown) (unknown) tablet (units (unkno wn) date) unknown) (unknown) (no (unknown) (unknown) tablet vomiting (units (unknown) date) #10 tabs unknown) (unknown) (no (unknown) (unknown) tablet,extended (units (unknown) date) release unknown) (unknown) (no (unknown) (unknown) tobacco type: (units ( unknown) date) vaping unknown) Result panel 48 (unknown) (no date) (unknown) (unknown) 0 /uL (unkn own) (unknown) (no date) (unknown) (unknown) 0 /uL (unkn own) (unknown) (no date) (unknown) (unknown) 0.1 % (unkn own) (unknown) (no date) (unknown) (unknown) 0.5 % (unkn own) (unknown) (no date) (unknown) (unknown) 13.8 % (unkn own) (unknown) (no date) (unknown) (unknown) 1300 /uL (unkn own) (unknown) (no date) (unknown) (unknown) 15.4 g/dL (unkn own) (unknown) (no date) (unknown) (unknown) 20.9 % (unkn own) (unknown) (no date) (unknown) (unknown) 284 X10 3/uL (unkn own) (unknown) (no date) (unknown) (unknown) 32.4 PG (unkn own) (unknown) (no date) (unknown) (unknown) 35.0 % (unkn own) (unknown) (no date) (unknown) (unknown) 4.77 X10 6/uL (unkn own) (unknown) (no date) (unknown) (unknown) 4300 /uL (unkn own) (unknown) (no date) (unknown) (unknown) 44.2 % (unkn own) (unknown) (no date) (unknown) (unknown) 500 /uL (unkn own) (unknown) (no date) (unknown) (unknown) 6.2 X10 3/uL (unkn own) (unknown) (no date) (unknown) (unknown) 69.8 % (unkn own) (unknown) (no date) (unknown) (unknown) 8.7 % (unkn own) (unknown) (no date) (unknown) (unknown) 92.6 fL (unkn own) Result panel 49 (unknown) (no (unknown) (unknown) (no value) (units (unk nown) date) unknown) (unknown) (no (unknown) (unknown) Date of Service: (units (unknown) date) 04/13/22 unknown) (unknown) (no (unknown) (unknown) (no value) (units (unk nown) date) unknown) (unknown) (no (unknown) (unknown) 0.5 mg PO DAILY (units (unknown) date) PRN (Reason: unknown) nausea and vomiting) Qty: 10 0RF (unknown) (no (unknown) (unknown) 04/13/22 09:20 (units (unknown) date) unknown) (unknown) (no (unknown) (unknown) 1 applic topical (units (unknown) date) BID Qty: 30 0RF unknown) (unknown) (no (unknown) (unknown) 100 mg PO DAILY (units (unknown) date) unknown) (unknown) (no (unknown) (unknown) 20 meq PO DAILY (units (unknown) date) Qty: 30 0RF unknown) (unknown) (no (unknown) (unknown) 200 mg PO WEEKLY (units (unknown) date) 28 Days Qty: 4 0RF unknown) (unknown) (no (unknown) (unknown) 4 mg PO Q8H PRN (units (unknown) date) (Reason: nausea unknown) and vomiting) Qty: 10 0RF (unknown) (no (unknown) (unknown) 5 mg PO DAILY (units ( unknown) date) unknown) (unknown) (no (unknown) (unknown) 5 mg intranasal (units (unknown) date) Q2-4H PRN (Reason: unknown) migraine headache) Qty: 1 0RF (unknown) (no (unknown) (unknown) 8 mg PO TID PRN (units (unknown) date) (Reason: Nausea) unknown) (unknown) (no (unknown) (unknown) ABLE TO (units (unkno wn) date) unknown) (unknown) (no (unknown) (unknown) Allergies (units (unkn own) date) unknown) (unknown) (no (unknown) (unknown) Apply 1 gram of (units (unknown) date) cream to rash unknown) twice daily until rash resolves up to 4 weeks. (unknown) (no (unknown) (unknown) ED Orders (units (unkn own) date) unknown) (unknown) (no (unknown) (unknown) Emergency Report (units (unknown) date) unknown) (unknown) (no (unknown) (unknown) Home Medications (units (unknown) date) unknown) (unknown) (no (unknown) (unknown) [facility] (units (unknown) date) [address] [place] [address] unknown) [place] [address] (unknown) (no (unknown) (unknown) Lab Results (units (un known) date) unknown) (unknown) (no (unknown) (unknown) Label Comments: (units (unknown) date) unknown) (unknown) (no (unknown) (unknown) PT STATES (units (unkn own) date) unknown) (unknown) (no (unknown) (unknown) Previous Rx's (units ( unknown) date) unknown) (unknown) (no (unknown) (unknown) Rx Instructions: (units (unknown) date) unknown) (unknown) (no (unknown) (unknown) TAKE [facility] (units (unkno wn) date) unknown) (unknown) (no (unknown) (unknown) TO IV SITE (units (unk nown) date) unknown) (unknown) (no (unknown) (unknown) Vital Signs - 8 (units (unknown) date) hr unknown) (unknown) (no (unknown) (unknown) dissolve 1 tablet (units (unknown) date) by mouth up to unknown) three times a day (unknown) (no (unknown) (unknown) into each nostril (units (unknown) date) once; if abdominal unknown) migraine remains, may repeat total dose (unknown) (no (unknown) (unknown) take 1 tablet by (units (unknown) date) mouth once daily unknown) (unknown) (no (unknown) (unknown) take 1 tablet (units ( unknown) date) once weekly until unknown) rash resolves up to 4 weeks (unknown) (no (unknown) (unknown) (no value) (units (unk n) date) unknown) (unknown) (no (unknown) (unknown) 04/13/22 (units (o wn) date) Range/Units unknown) (unknown) (no (unknown) (unknown) 09:20 (units (o wn) date) unknown) (unknown) (no (unknown) (unknown) amlodipine 5 mg (units (unknown) date) tablet unknown) (unknown) (no (unknown) (unknown) bupropion HCl 100 (units (unknown) date) mg tablet unknown) sustained-release 12 hr (unknown) (no (unknown) (unknown) fluconazole 200 (units (unknown) date) mg tablet unknown) (unknown) (no (unknown) (unknown) lorazepam (units (unkn own) date) [Ativan] 0.5 mg unknown) tablet (unknown) (no (unknown) (unknown) miconazole (units (unk n) date) nitrate 2 % cream unknown) (unknown) (no (unknown) (unknown) ondansetron 4 mg (units (unknown) date) tablet,disintegrat unknown) ing (unknown) (no (unknown) (unknown) ondansetron 8 mg (units (unknown) date) tablet,disintegrat unknown) ing (unknown) (no (unknown) (unknown) potassium (units (unkn own) date) chloride 20 mEq unknown) tablet extended release (unknown) (no (unknown) (unknown) sumatriptan 5 (units ( unknown) date) mg/actuation unknown) spray,non-aerosol (unknown) (no (unknown) (unknown) 04/13/22 (units (o wn) date) unknown) (unknown) (no (unknown) (unknown) Medication (units (unk n) date) Instructions unknown) Recorded (unknown) (no (unknown) (unknown) Medication (units (unk n) date) Instructions unknown) Recorded Confirmed (unknown) (no (unknown) (unknown) and below (units (unkn own) date) unknown) (unknown) (no (unknown) (unknown) vomiting #10 tabs (units (unknown) date) unknown) (unknown) (no (unknown) (unknown) 04/13/22 09:36 (units (unknown) date) unknown) (unknown) (no (unknown) (unknown) 04/13/22 09:46 (units (unknown) date) unknown) (unknown) (no (unknown) (unknown) 04/13/22 09:47 (units (unknown) date) unknown) (unknown) (no (unknown) (unknown) 09:33 04/13/22 (units (unknown) date) unknown) (unknown) (no (unknown) (unknown) 09:36 (units (unkno wn) date) unknown) (unknown) (no (unknown) (unknown) [id number] (units (unkno wn) date) unknown) (unknown) (no (unknown) (unknown) Abscess (units (unkno wn) date) unknown) (unknown) (no (unknown) (unknown) Age/Sex: 46 / F (units (unknown) date) unknown) (unknown) (no (unknown) (unknown) Alcohol type: (units ( unknown) date) wine unknown) (unknown) (no (unknown) (unknown) Allergy/AdvReac (units (unknown) date) Type Severity unknown) Reaction Status Date / Time (unknown) (no (unknown) (unknown) Baso # (Auto) 0 (units (unknown) date) (0-100) /uL unknown) (unknown) (no (unknown) (unknown) Baso % (Auto) 0.5 (units (unknown) date) (0-2) % unknown) (unknown) (no (unknown) (unknown) Blood Pressure (units (unknown) date) 151/93 H 04/13/22 unknown) 09:33 (unknown) (no (unknown) (unknown) Blood Pressure (units (unknown) date) 151/93 H 151/93 H unknown) (unknown) (no (unknown) (unknown) COVID19 -Nasal (units (unknown) date) RAPID/Pre-Proc unknown) Stat (unknown) (no (unknown) (unknown) Chief complaint: (units (unknown) date) Abdominal Pain unknown) (unknown) (no (unknown) (unknown) Chronic abdominal (units (unknown) date) pain unknown) (unknown) (no (unknown) (unknown) Complete Blood (units (unknown) date) Count AUTO DIFF unknown) Stat (unknown) (no (unknown) (unknown) Comprehensive (units ( unknown) date) Metabolic Panel unknown) Stat (unknown) (no (unknown) (unknown) Course (units (unkno wn) date) unknown) (unknown) (no (unknown) (unknown) Cyclic vomiting (units (unknown) date) syndrome unknown) (unknown) (no (unknown) (unknown) : 1975 (units (unknown) date) Acct:[id number] unknown) (unknown) (no (unknown) (unknown) Daughter (units (unkno wn) date) Angio-edema unknown) (unknown) (no (unknown) (unknown) Departure (units (unkn own) date) unknown) (unknown) (no (unknown) (unknown) Discharge Plan (units (unknown) date) unknown) (unknown) (no (unknown) (unknown) EKG-12 Lead Stat (units (unknown) date) unknown) (unknown) (no (unknown) (unknown) ER Physician: (units ( unknown) date) Mine Harrington D.O. unknown) (unknown) (no (unknown) (unknown) ETOH [Ethanol (units ( unknown) date) (ETOH)] Stat unknown) (unknown) (no (unknown) (unknown) Eos # (Auto) 0 (units (unknown) date) (0-450) /uL unknown) (unknown) (no (unknown) (unknown) Eos % (Auto) 0.1 (units (unknown) date) L (2-4) % unknown) (unknown) (no (unknown) (unknown) Exam (units (unkno wn) date) unknown) (unknown) (no (unknown) (unknown) Family History (units (unknown) date) (Reviewed 04/13/22 unknown) @ 09:35 by Mine Harrington DO) (unknown) (no (unknown) (unknown) Family history of (units (unknown) date) angioedema unknown) (unknown) (no (unknown) (unknown) Father (units (unkno wn) date) Hypertension unknown) (unknown) (no (unknown) (unknown) General (units (unkno wn) date) unknown) (unknown) (no (unknown) (unknown) GenericComposite[ (units (unknown) date) Plt Count 284 unknown) (150-400) X10^3/uL ] (unknown) (no (unknown) (unknown) GenericComposite[ (units (unknown) date) RBC 4.77 (4.0-5.2) unknown) X10^6/uL ] (unknown) (no (unknown) (unknown) GenericComposite[ (units (unknown) date) WBC 6.2 (4.5-11.0) unknown) X10^3/uL ] (unknown) (no (unknown) (unknown) HPI - (units (unkno wn) date) Nausea/Vomiting/Di unknown) arrhea (unknown) (no (unknown) (unknown) HPI Narrative: (units (unknown) date) unknown) (unknown) (no (unknown) (unknown) Hct 44.2 (36-46) (units (unknown) date) % unknown) (unknown) (no (unknown) (unknown) Hgb 15.4 (units (o wn) date) (12.0-16.0) g/dL unknown) (unknown) (no (unknown) (unknown) History of (units (unk nown) date) Present Illness unknown) (unknown) (no (unknown) (unknown) Hx of (units (unkno wn) date) appendectomy unknown) (unknown) (no (unknown) (unknown) Hx of (units (unkno wn) date) cholecystectomy unknown) (unknown) (no (unknown) (unknown) Initial Vital (units ( unknown) date) Signs unknown) (unknown) (no (unknown) (unknown) Initial Vital (units ( unknown) date) Signs: unknown) (unknown) (no (unknown) (unknown) Sergo Martino MD (units (unknown) date) [Primary Care unknown) Provider] - (unknown) (no (unknown) (unknown) Ketones (units (o wn) date) (Beta-Hydroxybutyr unknown) ate) Stat (unknown) (no (unknown) (unknown) Lab Data (units (unkno wn) date) unknown) (unknown) (no (unknown) (unknown) Labs: (units (unkno wn) date) unknown) (unknown) (no (unknown) (unknown) Lactate (Lactic (units (unknown) date) Acid) Stat unknown) (unknown) (no (unknown) (unknown) Limitations: no (units (unknown) date) limitations unknown) (unknown) (no (unknown) (unknown) Lipase Stat (units (un known) date) unknown) (unknown) (no (unknown) (unknown) Lymph # (Auto) (units (unknown) date) 1300 (0945-5061) unknown) /uL (unknown) (no (unknown) (unknown) Lymph % (Auto) (units (unknown) date) 20.9 L (25-40) % unknown) (unknown) (no (unknown) (unknown) MCH 32.4 (26-34) (units (unknown) date) PG unknown) (unknown) (no (unknown) (unknown) MCHC 35.0 (30-36) (units (unknown) date) % unknown) (unknown) (no (unknown) (unknown) MCV 92.6 (80-100) (units (unknown) date) fL unknown) (unknown) (no (unknown) (unknown) MDM - (units (unkno wn) date) Nausea/Vomiting/Di unknown) arrhea (unknown) (no (unknown) (unknown) 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 (unknown) (no (unknown) (unknown) Marijuana use, (units (unknown) date) continuous unknown) (unknown) (no (unknown) (unknown) Medical History (units (unknown) date) (Reviewed 04/13/22 unknown) @ 09:35 by Mine Harrington DO) (unknown) (no (unknown) (unknown) Centre # (Auto) 500 (units (unknown) date) (0-900) /uL unknown) (unknown) (no (unknown) (unknown) Centre % (Auto) 8.7 (units (unknown) date) (3-14) % unknown) (unknown) (no (unknown) (unknown) Mother Diabetes (units (unknown) date) mellitus unknown) (unknown) (no (unknown) (unknown) Neut # (Auto) (units ( unknown) date) 4300 (6457-7554) unknown) /uL (unknown) (no (unknown) (unknown) Neut % (Auto) (units ( unknown) date) 69.8 (50-75) % unknown) (unknown) (no (unknown) (unknown) No Action (units (unkn own) date) unknown) (unknown) (no (unknown) (unknown) Ordered: (units (unkno wn) date) unknown) (unknown) (no (unknown) (unknown) Orders (units (unkno wn) date) unknown) (unknown) (no (unknown) (unknown) Other Colon (units (un known) date) cancer unknown) (unknown) (no (unknown) (unknown) Oxygen Delivery (units (unknown) date) Method 04/13/22 unknown) 09:33 (unknown) (no (unknown) (unknown) Oxygen Delivery (units (unknown) date) Method Room Air unknown) Room Air (unknown) (no (unknown) (unknown) Pancreatitis (units (u nknown) date) unknown) (unknown) (no (unknown) (unknown) Patient History (units (unknown) date) unknown) (unknown) (no (unknown) (unknown) Patient: (units (unkno wn) date) Dameon Castro MR#: unknown) [id number] (unknown) (no (unknown) (unknown) Prescriptions: (units (unknown) date) unknown) (unknown) (no (unknown) (unknown) Pulse Oximetry 98 (units (unknown) date) 04/13/22 09:33 unknown) (unknown) (no (unknown) (unknown) Pulse Oximetry 98 (units (unknown) date) 100 unknown) (unknown) (no (unknown) (unknown) Pulse Rate 90 (units ( unknown) date) 04/13/22 09:33 unknown) (unknown) (no (unknown) (unknown) Pulse Rate 90 98 (units (unknown) date) H unknown) (unknown) (no (unknown) (unknown) RDW 13.8 (units (unkno wn) date) (11.6-14.8) % unknown) (unknown) (no (unknown) (unknown) ROS Unobtainable: (units (unknown) date) All systems unknown) reviewed + are unremarkable except as noted in HPI (unknown) (no (unknown) (unknown) Referrals: (units (unk nown) date) unknown) (unknown) (no (unknown) (unknown) Related Data (units (u nknown) date) unknown) (unknown) (no (unknown) (unknown) Respiratory Rate (units (unknown) date) 16 04/13/22 09:33 unknown) (unknown) (no (unknown) (unknown) Respiratory Rate (units (unknown) date) 16 unknown) (unknown) (no (unknown) (unknown) Result diagrams: (units (unknown) date) unknown) (unknown) (no (unknown) (unknown) Review of Systems (units (unknown) date) unknown) (unknown) (no (unknown) (unknown) Signed By: (units (unk nown) date) unknown) (unknown) (no (unknown) (unknown) Smoking Status: (units (unknown) date) Current every day unknown) smoker (unknown) (no (unknown) (unknown) Smoking Status: (units (unknown) date) Current every day unknown) smoker (unknown) (no (unknown) (unknown) Social History (units (unknown) date) (Reviewed 04/13/22 unknown) @ 09:35 by Mine Harrington DO) (unknown) (no (unknown) (unknown) Source: patient (units (unknown) date) and old records unknown) reviewed (unknown) (no (unknown) (unknown) Stated complaint: (units (unknown) date) cyclical vomiting unknown) (unknown) (no (unknown) (unknown) Substance Use (units ( unknown) date) Type: marijuana unknown) (unknown) (no (unknown) (unknown) Surgical History (units (unknown) date) (Reviewed 04/13/22 unknown) @ 09:35 by Mine Harrington DO) (unknown) (no (unknown) (unknown) Temperature 98.0 (units (unknown) date) F 04/13/22 09:33 unknown) (unknown) (no (unknown) (unknown) Temperature 98.0 (units (unknown) date) F unknown) (unknown) (no (unknown) (unknown) This is a (units (unkn own) date) 46-year-old female unknown) with history of cyclic vomiting, polysubstance (unknown) (no (unknown) (unknown) Time Seen by (units (u nknown) date) Provider: 04/13/22 unknown) 09:27 (unknown) (no (unknown) (unknown) Urine Drug (units (unk nown) date) Screen, Rapid Stat unknown) (unknown) (no (unknown) (unknown) Vital Signs (units (un known) date) unknown) (unknown) (no (unknown) (unknown) Vital signs: (units (u nknown) date) unknown) (unknown) (no (unknown) (unknown) [Embedded Image (units (unknown) date) Not Available] unknown) (unknown) (no (unknown) (unknown) [METOCLOPRAMIDE] (units (unknown) date) unknown) (unknown) (no (unknown) (unknown) abuse, alcohol (units (unknown) date) use and unknown) (unknown) (no (unknown) (unknown) alcohol intake (units (unknown) date) frequency: 3 or unknown) more drinks per day (unknown) (no (unknown) (unknown) alcohol intake: (units (unknown) date) current unknown) (unknown) (no (unknown) (unknown) amlodipine 5 mg (units (unknown) date) tablet 5 mg PO unknown) DAILY 03/20/22 03/20/22 (unknown) (no (unknown) (unknown) bupropion HCl 100 (units (unknown) date) mg tablet,12 hr unknown) 100 mg PO DAILY 03/20/22 03/20/22 (unknown) (no (unknown) (unknown) cream (units (unkno wn) date) unknown) (unknown) (no (unknown) (unknown) fluconazole 200 (units (unknown) date) mg tablet 200 mg unknown) PO WEEKLY 4 weeks #4 tabs 03/21/22 (unknown) (no (unknown) (unknown) household (units (unkn own) date) members: spouse unknown) (unknown) (no (unknown) (unknown) latex [LATEX] (units ( unknown) date) Allergy Unknown unknown) Verified 04/13/22 09:42 (unknown) (no (unknown) (unknown) lorazepam 0.5 mg (units (unknown) date) tablet (Ativan) unknown) 0.5 mg PO DAILY PRN nausea and 11/03/21 (unknown) (no (unknown) (unknown) metoclopramide (units (unknown) date) AdvReac Unknown unknown) DYSTONIA Verified 04/13/22 09:42 (unknown) (no (unknown) (unknown) miconazole (units (unk nown) date) nitrate 2 % unknown) topical 1 applic topical BID #30 grams 03/21/22 (unknown) (no (unknown) (unknown) once after at (units ( unknown) date) least 2 hours unknown) (unknown) (no (unknown) (unknown) ondansetron 4 mg (units (unknown) date) disintegrating 4 unknown) mg PO Q8H PRN nausea and 07/28/19 (unknown) (no (unknown) (unknown) ondansetron 8 mg (units (unknown) date) disintegrating 8 unknown) mg PO TID PRN Nausea 09/18/19 03/20/22 (unknown) (no (unknown) (unknown) potassium (units (unkn own) date) chloride 20 mEq 20 unknown) meq PO DAILY #30 tabs 03/21/22 (unknown) (no (unknown) (unknown) promethazine (units (u nknown) date) [PROMETHAZINE] unknown) Allergy Mild ERYTHEMA Verified 04/13/22 09:42 (unknown) (no (unknown) (unknown) spray headache #1 (units (unknown) date) ea unknown) (unknown) (no (unknown) (unknown) sumatriptan 5 (units ( unknown) date) mg/actuation nasal unknown) 5 mg intranasal Q2-4H PRN migraine 06/04/21 (unknown) (no (unknown) (unknown) sustained-release (units (unknown) date) unknown) (unknown) (no (unknown) (unknown) tablet (units (unkno wn) date) unknown) (unknown) (no (unknown) (unknown) tablet vomiting (units (unknown) date) #10 tabs unknown) (unknown) (no (unknown) (unknown) tablet,extended (units (unknown) date) release unknown) (unknown) (no (unknown) (unknown) tobacco type: (units ( unknown) date) vaping unknown) Result panel 50 (unknown) (no (unknown) (unknown) (no value) (units (unk nown) date) unknown) (unknown) (no (unknown) (unknown) Date of Service: (units (unknown) date) 04/13/22 unknown) (unknown) (no (unknown) (unknown) (no value) (units (unk nown) date) unknown) (unknown) (no (unknown) (unknown) 0.5 mg PO DAILY (units (unknown) date) PRN (Reason: unknown) nausea and vomiting) Qty: 10 0RF (unknown) (no (unknown) (unknown) 04/13/22 09:20 (units (unknown) date) unknown) (unknown) (no (unknown) (unknown) 1 applic topical (units (unknown) date) BID Qty: 30 0RF unknown) (unknown) (no (unknown) (unknown) 100 mg PO DAILY (units (unknown) date) unknown) (unknown) (no (unknown) (unknown) 20 meq PO DAILY (units (unknown) date) Qty: 30 0RF unknown) (unknown) (no (unknown) (unknown) 200 mg PO WEEKLY (units (unknown) date) 28 Days Qty: 4 0RF unknown) (unknown) (no (unknown) (unknown) 4 mg PO Q8H PRN (units (unknown) date) (Reason: nausea unknown) and vomiting) Qty: 10 0RF (unknown) (no (unknown) (unknown) 5 mg PO DAILY (units ( unknown) date) unknown) (unknown) (no (unknown) (unknown) 5 mg intranasal (units (unknown) date) Q2-4H PRN (Reason: unknown) migraine headache) Qty: 1 0RF (unknown) (no (unknown) (unknown) 8 mg PO TID PRN (units (unknown) date) (Reason: Nausea) unknown) (unknown) (no (unknown) (unknown) ABLE TO (units (unkno wn) date) unknown) (unknown) (no (unknown) (unknown) Allergies (units (unkn own) date) unknown) (unknown) (no (unknown) (unknown) Apply 1 gram of (units (unknown) date) cream to rash unknown) twice daily until rash resolves up to 4 weeks. (unknown) (no (unknown) (unknown) ED Orders (units (unkn own) date) unknown) (unknown) (no (unknown) (unknown) Emergency Report (units (unknown) date) unknown) (unknown) (no (unknown) (unknown) Home Medications (units (unknown) date) unknown) (unknown) (no (unknown) (unknown) [facility] (units (unknown) date) [address] unknown) [place] [address] (unknown) (no (unknown) (unknown) Lab Results (units (un known) date) unknown) (unknown) (no (unknown) (unknown) Label Comments: (units (unknown) date) unknown) (unknown) (no (unknown) (unknown) PT STATES (units (unkn own) date) unknown) (unknown) (no (unknown) (unknown) Previous Rx's (units ( unknown) date) unknown) (unknown) (no (unknown) (unknown) Rx Instructions: (units (unknown) date) unknown) (unknown) (no (unknown) (unknown) TAKE [facility] (units (unkno wn) date) unknown) (unknown) (no (unknown) (unknown) TO IV SITE (units (unk nown) date) unknown) (unknown) (no (unknown) (unknown) Vital Signs - 8 (units (unknown) date) hr unknown) (unknown) (no (unknown) (unknown) dissolve 1 tablet (units (unknown) date) by mouth up to unknown) three times a day (unknown) (no (unknown) (unknown) into each nostril (units (unknown) date) once; if abdominal unknown) migraine remains, may repeat total dose (unknown) (no (unknown) (unknown) take 1 tablet by (units (unknown) date) mouth once daily unknown) (unknown) (no (unknown) (unknown) take 1 tablet (units ( unknown) date) once weekly until unknown) rash resolves up to 4 weeks (unknown) (no (unknown) (unknown) (no value) (units (unk nown) date) unknown) (unknown) (no (unknown) (unknown) 04/13/22 (units (unkno wn) date) Range/Units unknown) (unknown) (no (unknown) (unknown) 09:20 (units (unkno wn) date) unknown) (unknown) (no (unknown) (unknown) amlodipine 5 mg (units (unknown) date) tablet unknown) (unknown) (no (unknown) (unknown) bupropion HCl 100 (units (unknown) date) mg tablet unknown) sustained-release 12 hr (unknown) (no (unknown) (unknown) fluconazole 200 (units (unknown) date) mg tablet unknown) (unknown) (no (unknown) (unknown) lorazepam (units (unkn own) date) [Ativan] 0.5 mg unknown) tablet (unknown) (no (unknown) (unknown) miconazole (units (unk nown) date) nitrate 2 % cream unknown) (unknown) (no (unknown) (unknown) ondansetron 4 mg (units (unknown) date) tablet,disintegrat unknown) ing (unknown) (no (unknown) (unknown) ondansetron 8 mg (units (unknown) date) tablet,disintegrat unknown) ing (unknown) (no (unknown) (unknown) potassium (units (unkn own) date) chloride 20 mEq unknown) tablet extended release (unknown) (no (unknown) (unknown) sumatriptan 5 (units ( unknown) date) mg/actuation unknown) spray,non-aerosol (unknown) (no (unknown) (unknown) 04/13/22 (units (unkno wn) date) unknown) (unknown) (no (unknown) (unknown) Medication (units (unk nown) date) Instructions unknown) Recorded (unknown) (no (unknown) (unknown) Medication (units (unk nown) date) Instructions unknown) Recorded Confirmed (unknown) (no (unknown) (unknown) and below (units (unkn own) date) unknown) (unknown) (no (unknown) (unknown) in October and (units (u nknown) date) during her unknown) hospital stay the beginning of March. Patient's lab (unknown) (no (unknown) (unknown) or tongue on (units (u nknown) date) examination. unknown) (unknown) (no (unknown) (unknown) typical of her (units (unknown) date) prior unknown) exacerbations so imaging was deferred patient states she (unknown) (no (unknown) (unknown) vomiting #10 tabs (units (unknown) date) unknown) (unknown) (no (unknown) (unknown) 04/13/22 09:36 (units (unknown) date) unknown) (unknown) (no (unknown) (unknown) 04/13/22 09:46 (units (unknown) date) unknown) (unknown) (no (unknown) (unknown) 04/13/22 09:47 (units (unknown) date) unknown) (unknown) (no (unknown) (unknown) 09:33 04/13/22 (units (unknown) date) unknown) (unknown) (no (unknown) (unknown) 09:36 (units (unkno wn) date) unknown) (unknown) (no (unknown) (unknown) 2 visits of her (units (unknown) date) tongue. Patient unknown) states she was told that this is from her COVID (unknown) (no (unknown) (unknown) [id number] (units (unkno wn) date) unknown) (unknown) (no (unknown) (unknown) ABD:bowel sounds (units (unknown) date) normal, soft, unknown) mildly tender generalized, no guarding, rebound, (unknown) (no (unknown) (unknown) Abscess (units (unkno wn) date) unknown) (unknown) (no (unknown) (unknown) Age/Sex: 46 / F (units (unknown) date) unknown) (unknown) (no (unknown) (unknown) Alcohol type: (units ( unknown) date) wine unknown) (unknown) (no (unknown) (unknown) Allergy/AdvReac (units (unknown) date) Type Severity unknown) Reaction Status Date / Time (unknown) (no (unknown) (unknown) Baso # (Auto) 0 (units (unknown) date) (0-100) /uL unknown) (unknown) (no (unknown) (unknown) Baso % (Auto) 0.5 (units (unknown) date) (0-2) % unknown) (unknown) (no (unknown) (unknown) Blood Pressure (units (unknown) date) 151/93 H 04/13/22 unknown) 09:33 (unknown) (no (unknown) (unknown) Blood Pressure (units (unknown) date) 151/93 H 151/93 H unknown) (unknown) (no (unknown) (unknown) COVID19 -Nasal (units (unknown) date) RAPID/Pre-Proc unknown) Stat (unknown) (no (unknown) (unknown) Chief complaint: (units (unknown) date) Abdominal Pain unknown) (unknown) (no (unknown) (unknown) Chronic abdominal (units (unknown) date) pain unknown) (unknown) (no (unknown) (unknown) Complete Blood (units (unknown) date) Count AUTO DIFF unknown) Stat (unknown) (no (unknown) (unknown) Comprehensive (units ( unknown) date) Metabolic Panel unknown) Stat (unknown) (no (unknown) (unknown) Course (units (unkno wn) date) unknown) (unknown) (no (unknown) (unknown) Cyclic vomiting (units (unknown) date) syndrome unknown) (unknown) (no (unknown) (unknown) : 1975 (units (unknown) date) Acct:[id number] unknown) (unknown) (no (unknown) (unknown) Daughter (units (unkno wn) date) Angio-edema unknown) (unknown) (no (unknown) (unknown) Departure (units (unkn own) date) unknown) (unknown) (no (unknown) (unknown) Discharge Plan (units (unknown) date) unknown) (unknown) (no (unknown) (unknown) EKG-12 Lead Stat (units (unknown) date) unknown) (unknown) (no (unknown) (unknown) ER Physician: (units ( unknown) date) Mine Harrington D.O. unknown) (unknown) (no (unknown) (unknown) ETOH [Ethanol (units ( unknown) date) (ETOH)] Stat unknown) (unknown) (no (unknown) (unknown) Eos # (Auto) 0 (units (unknown) date) (0-450) /uL unknown) (unknown) (no (unknown) (unknown) Eos % (Auto) 0.1 (units (unknown) date) L (2-4) % unknown) (unknown) (no (unknown) (unknown) Exam (units (unkno wn) date) unknown) (unknown) (no (unknown) (unknown) Exam Narrative: (units (unknown) date) unknown) (unknown) (no (unknown) (unknown) Family History (units (unknown) date) (Reviewed 04/13/22 unknown) @ 09:52 by Mine Harrington DO) (unknown) (no (unknown) (unknown) Family history of (units (unknown) date) angioedema unknown) (unknown) (no (unknown) (unknown) Father (units (unkno wn) date) Hypertension unknown) (unknown) (no (unknown) (unknown) GEN: Female, (units (u nknown) date) alert and oriented unknown) x 3, patient appears to be in moderate (unknown) (no (unknown) (unknown) :No CVA (units (unkn own) date) tenderness unknown) (unknown) (no (unknown) (unknown) General (units (unkno wn) date) unknown) (unknown) (no (unknown) (unknown) GenericComposite[ (units (unknown) date) Plt Count 284 unknown) (150-400) X10^3/uL ] (unknown) (no (unknown) (unknown) GenericComposite[ (units (unknown) date) RBC 4.77 (4.0-5.2) unknown) X10^6/uL ] (unknown) (no (unknown) (unknown) GenericComposite[ (units (unknown) date) WBC 6.2 (4.5-11.0) unknown) X10^3/uL ] (unknown) (no (unknown) (unknown) HEART: Regular (units (unknown) date) rate and rhythm unknown) without murmur, clicks, rubs. (unknown) (no (unknown) (unknown) HEENT: (units (unkno wn) date) Atraumatic, pupils unknown) are equal round reactive to light, extraocular (unknown) (no (unknown) (unknown) HPI - (units (unkno wn) date) Nausea/Vomiting/Di unknown) arrhea (unknown) (no (unknown) (unknown) HPI Narrative: (units (unknown) date) unknown) (unknown) (no (unknown) (unknown) Hct 44.2 (36-46) (units (unknown) date) % unknown) (unknown) (no (unknown) (unknown) Hgb 15.4 (units (unkno wn) date) (12.0-16.0) g/dL unknown) (unknown) (no (unknown) (unknown) History of (units (unk nown) date) Present Illness unknown) (unknown) (no (unknown) (unknown) Hx of (units (unkno wn) date) appendectomy unknown) (unknown) (no (unknown) (unknown) Hx of (units (unkno wn) date) cholecystectomy unknown) (unknown) (no (unknown) (unknown) Initial Vital (units ( unknown) date) Signs unknown) (unknown) (no (unknown) (unknown) Initial Vital (units ( unknown) date) Signs: unknown) (unknown) (no (unknown) (unknown) Sergo Martino MD (units (unknown) date) [Primary Care unknown) Provider] - (unknown) (no (unknown) (unknown) Ketones (units (unkno wn) date) (Beta-Hydroxybutyr unknown) ate) Stat (unknown) (no (unknown) (unknown) LUNGS:Lungs clear (units (unknown) date) to auscultation, unknown) no wheezes, rales, crackles, chest moves (unknown) (no (unknown) (unknown) Lab Data (units (unkno wn) date) unknown) (unknown) (no (unknown) (unknown) Labs: (units (unkno wn) date) unknown) (unknown) (no (unknown) (unknown) Lactate (Lactic (units (unknown) date) Acid) Stat unknown) (unknown) (no (unknown) (unknown) Limitations: no (units (unknown) date) limitations unknown) (unknown) (no (unknown) (unknown) Lipase Stat (units (un known) date) unknown) (unknown) (no (unknown) (unknown) Lymph # (Auto) (units (unknown) date) 1300 (2424-9622) unknown) /uL (unknown) (no (unknown) (unknown) Lymph % (Auto) (units (unknown) date) 20.9 L (25-40) % unknown) (unknown) (no (unknown) (unknown) MCH 32.4 (26-34) (units (unknown) date) PG unknown) (unknown) (no (unknown) (unknown) MCHC 35.0 (30-36) (units (unknown) date) % unknown) (unknown) (no (unknown) (unknown) MCV 92.6 (80-100) (units (unknown) date) fL unknown) (unknown) (no (unknown) (unknown) MDM - (units (unkno wn) date) Nausea/Vomiting/Di unknown) arrhea (unknown) (no (unknown) (unknown) MDM Narrative (units ( unknown) date) unknown) (unknown) (no (unknown) (unknown) 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 (unknown) (no (unknown) (unknown) MSCL: Non-tender, (units (unknown) date) no muscle atrophy, unknown) muscles strength 5/5 upper and lower (unknown) (no (unknown) (unknown) Marijuana use, (units (unknown) date) continuous unknown) (unknown) (no (unknown) (unknown) Medical History (units (unknown) date) (Reviewed 04/13/22 unknown) @ 09:52 by Mine Harrington DO) (unknown) (no (unknown) (unknown) Medical decision (units (unknown) date) making narrative: unknown) (unknown) (no (unknown) (unknown) Centre # (Auto) 500 (units (unknown) date) (0-900) /uL unknown) (unknown) (no (unknown) (unknown) Centre % (Auto) 8.7 (units (unknown) date) (3-14) % unknown) (unknown) (no (unknown) (unknown) Mother Diabetes (units (unknown) date) mellitus unknown) (unknown) (no (unknown) (unknown) NEURO:CN 2-12 (units ( unknown) date) intact, sensation unknown) normall (unknown) (no (unknown) (unknown) Narrative (units (unkn own) date) unknown) (unknown) (no (unknown) (unknown) Neut # (Auto) (units ( unknown) date) 4300 (2062-4415) unknown) /uL (unknown) (no (unknown) (unknown) Neut % (Auto) (units ( unknown) date) 69.8 (50-75) % unknown) (unknown) (no (unknown) (unknown) No Action (units (unkn own) date) unknown) (unknown) (no (unknown) (unknown) Ordered: (units (unkno wn) date) unknown) (unknown) (no (unknown) (unknown) Orders (units (unkno wn) date) unknown) (unknown) (no (unknown) (unknown) Other Colon (units (un known) date) cancer unknown) (unknown) (no (unknown) (unknown) Oxygen Delivery (units (unknown) date) Method 04/13/22 unknown) 09:33 (unknown) (no (unknown) (unknown) Oxygen Delivery (units (unknown) date) Method Room Air unknown) Room Air (unknown) (no (unknown) (unknown) Pancreatitis (units (u nknown) date) unknown) (unknown) (no (unknown) (unknown) Patient History (units (unknown) date) unknown) (unknown) (no (unknown) (unknown) Patient presents (units (unknown) date) with complaint of unknown) abdominal pain and vomiting consistent with (unknown) (no (unknown) (unknown) Patient: (units (unkno wn) date) Dameon Castro MR#: unknown) [id number] (unknown) (no (unknown) (unknown) Prescriptions: (units (unknown) date) unknown) (unknown) (no (unknown) (unknown) Pulse Oximetry 98 (units (unknown) date) 04/13/22 09:33 unknown) (unknown) (no (unknown) (unknown) Pulse Oximetry 98 (units (unknown) date) 100 unknown) (unknown) (no (unknown) (unknown) Pulse Rate 90 (units ( unknown) date) 04/13/22 09:33 unknown) (unknown) (no (unknown) (unknown) Pulse Rate 90 98 (units (unknown) date) H unknown) (unknown) (no (unknown) (unknown) RDW 13.8 (units (unkno wn) date) (11.6-14.8) % unknown) (unknown) (no (unknown) (unknown) ROS Unobtainable: (units (unknown) date) All systems unknown) reviewed + are unremarkable except as noted in HPI (unknown) (no (unknown) (unknown) Referrals: (units (unk nown) date) unknown) (unknown) (no (unknown) (unknown) Related Data (units (u nknown) date) unknown) (unknown) (no (unknown) (unknown) Respiratory Rate (units (unknown) date) 16 04/13/22 09:33 unknown) (unknown) (no (unknown) (unknown) Respiratory Rate (units (unknown) date) 16 unknown) (unknown) (no (unknown) (unknown) Result diagrams: (units (unknown) date) unknown) (unknown) (no (unknown) (unknown) Review of Systems (units (unknown) date) unknown) (unknown) (no (unknown) (unknown) SKIN: No rash, (units (unknown) date) erythema or other unknown) skin changes noted. (unknown) (no (unknown) (unknown) Signed By: (units (unk nown) date) unknown) (unknown) (no (unknown) (unknown) Smoking Status: (units (unknown) date) Current every day unknown) smoker (unknown) (no (unknown) (unknown) Smoking Status: (units (unknown) date) Current every day unknown) smoker (unknown) (no (unknown) (unknown) Social History (units (unknown) date) (Reviewed 04/13/22 unknown) @ 09:52 by Mine Harrington DO) (unknown) (no (unknown) (unknown) Source: patient (units (unknown) date) and old records unknown) reviewed (unknown) (no (unknown) (unknown) Stated complaint: (units (unknown) date) cyclical vomiting unknown) (unknown) (no (unknown) (unknown) States her pain (units (unknown) date) is typical of her unknown) past episodes. Patient states she is been (unknown) (no (unknown) (unknown) Substance Use (units ( unknown) date) Type: marijuana unknown) (unknown) (no (unknown) (unknown) Surgical History (units (unknown) date) (Reviewed 04/13/22 unknown) @ 09:52 by Mine Harrington DO) (unknown) (no (unknown) (unknown) Temperature 98.0 (units (unknown) date) F 04/13/22 09:33 unknown) (unknown) (no (unknown) (unknown) Temperature 98.0 (units (unknown) date) F unknown) (unknown) (no (unknown) (unknown) This is a (units (unkn own) date) 46-year-old female unknown) with history of cyclic vomiting, polysubstance (unknown) (no (unknown) (unknown) Time Seen by (units (u nknown) date) Provider: 04/13/22 unknown) 09:27 (unknown) (no (unknown) (unknown) Urine Drug (units (unk nown) date) Screen, Rapid Stat unknown) (unknown) (no (unknown) (unknown) Vital Signs (units (un known) date) unknown) (unknown) (no (unknown) (unknown) Vital signs: (units (u nknown) date) unknown) (unknown) (no (unknown) (unknown) [Embedded Image (units (unknown) date) Not Available] unknown) (unknown) (no (unknown) (unknown) [METOCLOPRAMIDE] (units (unknown) date) unknown) (unknown) (no (unknown) (unknown) abuse, alcohol (units (unknown) date) use and unknown) angioedema. Patient presents with complaint of vomiting (unknown) (no (unknown) (unknown) alcohol intake (units (unknown) date) frequency: 3 or unknown) more drinks per day (unknown) (no (unknown) (unknown) alcohol intake: (units (unknown) date) current unknown) (unknown) (no (unknown) (unknown) allergies to (units (un known) date) Reglan, unknown) promethazine IV but can tolerate per rectum and latex. She (unknown) (no (unknown) (unknown) amlodipine 5 mg (units (unknown) date) tablet 5 mg PO unknown) DAILY 03/20/22 03/20/22 (unknown) (no (unknown) (unknown) angioedema (units (unkn own) date) although she is unknown) had 2 episodes with her oropharynx on her past visits (unknown) (no (unknown) (unknown) bleeding or (units (un known) date) discharge. Patient unknown) states she has not been able to keep down her (unknown) (no (unknown) (unknown) bloody stools. (units (unknown) date) She states no unknown) dysuria, urgency or frequency. No vaginal (unknown) (no (unknown) (unknown) bupropion HCl 100 (units (unknown) date) mg tablet,12 hr unknown) 100 mg PO DAILY 03/20/22 03/20/22 (unknown) (no (unknown) (unknown) cream (units (unkno wn) date) unknown) (unknown) (no (unknown) (unknown) distress. (units (unkn own) date) unknown) (unknown) (no (unknown) (unknown) does use tobacco, (units (unknown) date) states she drinks unknown) 3-5 alcoholic drinks daily and states she (unknown) (no (unknown) (unknown) electrolytes, (units ( unknown) date) renal function unknown) were obtained. Fluids, Haldol and Benadryl as (unknown) (no (unknown) (unknown) erythema, (units (unkno wn) date) tonsillar unknown) enlargement or uvular deviation, no obvious swelling of lips (unknown) (no (unknown) (unknown) extremities, full (units (unknown) date) range of motion unknown) (unknown) (no (unknown) (unknown) fluconazole 200 (units (unknown) date) mg tablet 200 mg unknown) PO WEEKLY 4 weeks #4 tabs 03/21/22 (unknown) (no (unknown) (unknown) for the past 3 (units (unknown) date) days. 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 We (units (unknown) date) did discuss that unknown) she was noted to have angioedema on the last (unknown) (no (unknown) (unknown) is comfortable (units (unknown) date) with this and not unknown) receiving more radiation. Labs including (unknown) (no (unknown) (unknown) last cocaine use (units (unknown) date) but does not think unknown) it was recently. She is accompanied by her (unknown) (no (unknown) (unknown) latex [LATEX] (units ( unknown) date) Allergy Unknown unknown) Verified 04/13/22 09:42 (unknown) (no (unknown) (unknown) lorazepam 0.5 mg (units (unknown) date) tablet (Ativan) unknown) 0.5 mg PO DAILY PRN nausea and 11/03/21 (unknown) (no (unknown) (unknown) metoclopramide (units (unknown) date) AdvReac Unknown unknown) DYSTONIA Verified 04/13/22 09:42 (unknown) (no (unknown) (unknown) miconazole (units (unk nown) date) nitrate 2 % unknown) topical 1 applic topical BID #30 grams 03/21/22 (unknown) (no (unknown) (unknown) morning which was (units (unknown) date) not helpful. unknown) Patient states no surgeries. She does have (unknown) (no (unknown) (unknown) movements are (units ( unknown) date) intact, nares are unknown) clear, Throat is clear without any exudates, (unknown) (no (unknown) (unknown) once after at (units ( unknown) date) least 2 hours unknown) (unknown) (no (unknown) (unknown) ondansetron 4 mg (units (unknown) date) disintegrating 4 unknown) mg PO Q8H PRN nausea and 07/28/19 (unknown) (no (unknown) (unknown) ondansetron 8 mg (units (unknown) date) disintegrating 8 unknown) mg PO TID PRN Nausea 09/18/19 03/20/22 (unknown) (no (unknown) (unknown) patient has often (units (unknown) date) responded well to unknown) these. (unknown) (no (unknown) (unknown) potassium (units (unkn own) date) chloride 20 mEq 20 unknown) meq PO DAILY #30 tabs 03/21/22 (unknown) (no (unknown) (unknown) promethazine (units (u nknown) date) [PROMETHAZINE] unknown) Allergy Mild ERYTHEMA Verified 04/13/22 09:42 (unknown) (no (unknown) (unknown) rigidity, no (units (u nknown) date) masses noted, no unknown) hepatosplenomegaly , no distention. No bruit. (unknown) (no (unknown) (unknown) spray headache #1 (units (unknown) date) ea unknown) (unknown) (no (unknown) (unknown) stooling (units (unkno wn) date) regularly with no unknown) diarrhea or constipation and denies any black or (unknown) (no (unknown) (unknown) sumatriptan 5 (units ( unknown) date) mg/actuation nasal unknown) 5 mg intranasal Q2-4H PRN migraine 06/04/21 (unknown) (no (unknown) (unknown) sustained-release (units (unknown) date) unknown) (unknown) (no (unknown) (unknown) symmetrically, no (units (unknown) date) tachypnea unknown) accessory muscle use. (unknown) (no (unknown) (unknown) tablet (units (unkno wn) date) unknown) (unknown) (no (unknown) (unknown) tablet vomiting (units (unknown) date) #10 tabs unknown) (unknown) (no (unknown) (unknown) tablet,extended (units (unknown) date) release unknown) (unknown) (no (unknown) (unknown) tobacco type: (units ( unknown) date) vaping unknown) (unknown) (no (unknown) (unknown) use cocaine (units (un known) date) intermittently. unknown) She is not currently having any symptoms of (unknown) (no (unknown) (unknown) uses THC (units (unkno wn) date) intermittently as unknown) well as cocaine. Patient states she is unsure of her (unknown) (no (unknown) (unknown) vaccination. She (units (unknown) date) had testing sent unknown) for hereditary angioedema but does not know (unknown) (no (unknown) (unknown) vomiting episodes (units (unknown) date) in the past. She unknown) denies fevers. She states she is been (unknown) (no (unknown) (unknown) vomiting up (units (un known) date) everything she unknown) tries to put in her stomach, denies any hemoptysis. (unknown) (no (unknown) (unknown) what the results (units (unknown) date) of those were. unknown) (unknown) (no (unknown) (unknown) work was reviewed (units (unknown) date) complement testing unknown) was sent. Patient states symptoms are very Result panel 51 (unknown) (no date) (unknown) (unknown) 1.1 (units unknown) (unknown) (unknown) (no date) (unknown) (unknown) 1.4 mg/dL (unkn own) (unknown) (no date) (unknown) (unknown) 1.72 mg/dL (unkn own) (unknown) (no date) (unknown) (unknown) 10.4 mg/dL (unkn own) (unknown) (no date) (unknown) (unknown) 10.5 g/dL (unkn own) (unknown) (no date) (unknown) (unknown) 134 mg/dL (unkn own) (unknown) (no date) (unknown) (unknown) 138 mmol/L (unkn own) (unknown) (no date) (unknown) (unknown) 18.0 (units unknown) (unknown) (unknown) (no date) (unknown) (unknown) 31 mg/dL (unkn own) (unknown) (no date) (unknown) (unknown) 32 mmol/L (unkn own) (unknown) (no date) (unknown) (unknown) 36 mL/min (unkn own) (unknown) (no date) (unknown) (unknown) 4.9 g/dL (unkn own) (unknown) (no date) (unknown) (unknown) 5.6 g/dL (unkn own) (unknown) (no date) (unknown) (unknown) 82 mmol/L (unkn own) (unknown) (no date) (unknown) (unknown) 96 U/L (unkn own) (unknown) (no date) (unknown) (unknown) 96 U/L (unkn own) Result panel 52 (unknown) (no date) (unknown) (unknown) 1.1 (units unknown) (unknown) (unknown) (no date) (unknown) (unknown) 1.4 mg/dL (unkn own) (unknown) (no date) (unknown) (unknown) 1.72 mg/dL (unkn own) (unknown) (no date) (unknown) (unknown) 10.4 mg/dL (unkn own) (unknown) (no date) (unknown) (unknown) 10.5 g/dL (unkn own) (unknown) (no date) (unknown) (unknown) 134 mg/dL (unkn own) (unknown) (no date) (unknown) (unknown) 138 mmol/L (unkn own) (unknown) (no date) (unknown) (unknown) 18.0 (units unknown) (unknown) (unknown) (no date) (unknown) (unknown) 2.7 mmol/L (unkn own) (unknown) (no date) (unknown) (unknown) 31 mg/dL (unkn own) (unknown) (no date) (unknown) (unknown) 32 mmol/L (unkn own) (unknown) (no date) (unknown) (unknown) 35 IU/L (unkn own) (unknown) (no date) (unknown) (unknown) 36 IU/L (unkn own) (unknown) (no date) (unknown) (unknown) 36 mL/min (unkn own) (unknown) (no date) (unknown) (unknown) 4.9 g/dL (unkn own) (unknown) (no date) (unknown) (unknown) 5.6 g/dL (unkn own) (unknown) (no date) (unknown) (unknown) 82 mmol/L (unkn own) (unknown) (no date) (unknown) (unknown) 96 U/L (unkn own) (unknown) (no date) (unknown) (unknown) 96 U/L (unkn own) Result panel 53 (unknown) (no date) (unknown) (unknown) < 10 mg/dL (unkn own) Result panel 54 (unknown) (no date) (unknown) (unknown) Negative (units (unkn own) unknown) Result panel 55 (unknown) (no date) (unknown) (unknown) 9.7 mmol/L (unkn own) Result panel 56 (unknown) (no (unknown) (unknown) (no value) (units (unk nown) date) unknown) (unknown) (no (unknown) (unknown) (no value) (units (unk nown) date) unknown) (unknown) (no (unknown) (unknown) [address] [place] [address] (units (unknown) date) unknown) (unknown) (no (unknown) (unknown) [place], [place] (units ( unknown) date) [id number] unknown) (unknown) (no (unknown) (unknown) CT Scan Report (units (unknown) date) unknown) (unknown) (no (unknown) (unknown) [facility] (units (unknown) date) unknown) (unknown) (no (unknown) (unknown) Signed (units (unkno wn) date) unknown) (unknown) (no (unknown) (unknown) (no value) (units (unk nown) date) unknown) (unknown) (no (unknown) (unknown) measuring 2.4 (units ( unknown) date) centimeters unknown) COMPARISON: [facility], CT, ABDOMEN/PELVIS (unknown) (no (unknown) (unknown) 04/13/22 (units (unkno wn) date) unknown) (unknown) (no (unknown) (unknown) ABDOMEN: (units (unkno wn) date) unknown) (unknown) (no (unknown) (unknown) Abdominal Nodes: (units (unknown) date) No retroperitoneal unknown) or mesenteric adenopathy by size criteria. (unknown) (no (unknown) (unknown) Adrenal Glands: (units (unknown) date) Unremarkable. unknown) (unknown) (no (unknown) (unknown) After the (units (unkn own) date) administration of unknown) intravenous contrast, axial sections acquired from (unknown) (no (unknown) (unknown) Approved by: (units (u nknown) date) Bobby Oropeza M.D. unknown) on 04/13/2022 at 11:23 (unknown) (no (unknown) (unknown) Biliary ducts: (units (unknown) date) Mild dilatation of unknown) the intrahepatic and extrahepatic biliary (unknown) (no (unknown) (unknown) Bones: (units (unkno wn) date) Unremarkable. unknown) (unknown) (no (unknown) (unknown) CONTRAST, (units (unkn own) date) 08/16/2014, 1:04. unknown) (unknown) (no (unknown) (unknown) Cholecystectomy. (units (unknown) date) unknown) (unknown) (no (unknown) (unknown) July 2014 (units ( unknown) date) study. unknown) (unknown) (no (unknown) (unknown) Dictated by: (units (u nknown) date) Bobby Oropeza M.D. unknown) on 04/13/2022 at 11:19 (unknown) (no (unknown) (unknown) FINDINGS: (units (unkn own) date) unknown) (unknown) (no (unknown) (unknown) Gallbladder: (units (u nknown) date) Cholecystectomy. unknown) (unknown) (no (unknown) (unknown) Heart: No (units (unkn own) date) significant unknown) findings. (unknown) (no (unknown) (unknown) IMPRESSION: (units (un known) date) unknown) (unknown) (no (unknown) (unknown) INDICATIONS: (units (u nknown) date) vomiting/hx unknown) cyclic, elevated lactate (unknown) (no (unknown) (unknown) Image quality: (units (unknown) date) Excellent. unknown) (unknown) (no (unknown) (unknown) Kidneys and (units (un known) date) Ureters: No unknown) urinary tract calculus or hydroureteronephro sis. (unknown) (no (unknown) (unknown) Liver: (units (unkno wn) date) Unremarkable. unknown) (unknown) (no (unknown) (unknown) Lung bases: (units (un known) date) Unremarkable. unknown) (unknown) (no (unknown) (unknown) Miscellaneous: No (units (unknown) date) hernias are seen. unknown) (unknown) (no (unknown) (unknown) No acute finding. (units (unknown) date) unknown) (unknown) (no (unknown) (unknown) PELVIS: (units (unkno wn) date) unknown) (unknown) (no (unknown) (unknown) Pancreas: No (units (u nknown) date) pancreatic ductal unknown) dilatation. 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 (unknown) (no (unknown) (unknown) Pelvic Organs: (units (unknown) date) IUD noted. No unknown) abnormal finding of the uterus or ovaries. (unknown) (no (unknown) (unknown) Peritoneum: No (units (unknown) date) abnormal unknown) intraperitoneal fluid. No free air. (unknown) (no (unknown) (unknown) Spleen: Normal (units (unknown) date) size and unknown) appearance of the spleen. (unknown) (no (unknown) (unknown) Stomach and (units (un known) date) Bowel: No unknown) abnormally dilated or thickened loop of bowel. No (unknown) (no (unknown) (unknown) TECHNIQUE: (units (unk nown) date) unknown) (unknown) (no (unknown) (unknown) Ventral Wall: No (units (unknown) date) hernias. 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 unknown) (unknown) (no (unknown) (unknown) bases to the (units (u nknown) date) pubic symphysis. unknown) Coronal and sagittal reformats were performed. (unknown) (no (unknown) (unknown) bladder normal. (units (unknown) date) unknown) (unknown) (no (unknown) (unknown) consistent with (units (unknown) date) post unknown) cholecystectomy reservoir phenomenon. (unknown) (no (unknown) (unknown) mesenteric (units (unk nown) date) inflammatory unknown) changes. (unknown) (no (unknown) (unknown) of mA and/or kV (units (unknown) date) according to unknown) patient size. (unknown) (no (unknown) (unknown) radiation dose (units (unknown) date) reduction, the unknown) following was used: automated exposure control, (unknown) (no (unknown) (unknown) [id number] (units (unkno wn) date) unknown) (unknown) (no (unknown) (unknown) Accession Number: (units (unknown) date) [id number] unknown) (unknown) (no (unknown) (unknown) Age/Sex: 46 / F (units (unknown) date) Date of Service: unknown) (unknown) (no (unknown) (unknown) : 1975 (units (unknown) date) Acct:[id number] unknown) (unknown) (no (unknown) (unknown) For (units (unkno wn) date) unknown) (unknown) (no (unknown) (unknown) Loc: ED (units (unkno wn) date) unknown) (unknown) (no (unknown) (unknown) Ordering (units (unkno wn) date) Provider: unknown) Mine Harrington D.O. (unknown) (no (unknown) (unknown) PROCEDURE: CT (units ( unknown) date) ABDOMEN PELVIS W unknown) CON (unknown) (no (unknown) (unknown) Patient: (units (unkno wn) date) Dameon Castro MR#: unknown) [id number] (unknown) (no (unknown) (unknown) Procedure: CT (units ( unknown) date) abdomen pelvis w unknown) con (unknown) (no (unknown) (unknown) Urinary (units (unkno wn) date) unknown) (unknown) (no (unknown) (unknown) WITH (units (unkno wn) date) unknown) (unknown) (no (unknown) (unknown) adjustment (units (unk nown) date) unknown) (unknown) (no (unknown) (unknown) changes. (units (unkno wn) date) unknown) (unknown) (no (unknown) (unknown) ducts (units (unkno wn) date) unknown) (unknown) (no (unknown) (unknown) increased from (units (unknown) date) unknown) (unknown) (no (unknown) (unknown) pericolonic or (units (unknown) date) unknown) (unknown) (no (unknown) (unknown) splenic (units (unkno wn) date) unknown) (unknown) (no (unknown) (unknown) the lung (units (unkno wn) date) unknown) Result panel 57 (unknown) (no (unknown) (unknown) (no value) (units (unk nown) date) unknown) (unknown) (no (unknown) (unknown) Date of Service: (units (unknown) date) 04/13/22 unknown) (unknown) (no (unknown) (unknown) (no value) (units (unk nown) date) unknown) (unknown) (no (unknown) (unknown) 0.5 mg PO DAILY (units (unknown) date) PRN (Reason: unknown) nausea and vomiting) Qty: 10 0RF (unknown) (no (unknown) (unknown) 04/13/22 09:20 (units (unknown) date) unknown) (unknown) (no (unknown) (unknown) 1 applic topical (units (unknown) date) BID Qty: 30 0RF unknown) (unknown) (no (unknown) (unknown) 100 mg PO DAILY (units (unknown) date) unknown) (unknown) (no (unknown) (unknown) 20 meq PO DAILY (units (unknown) date) Qty: 30 0RF unknown) (unknown) (no (unknown) (unknown) 200 mg PO WEEKLY (units (unknown) date) 28 Days Qty: 4 0RF unknown) (unknown) (no (unknown) (unknown) 4 mg PO Q8H PRN (units (unknown) date) (Reason: nausea unknown) and vomiting) Qty: 10 0RF (unknown) (no (unknown) (unknown) 5 mg PO DAILY (units ( unknown) date) unknown) (unknown) (no (unknown) (unknown) 5 mg intranasal (units (unknown) date) Q2-4H PRN (Reason: unknown) migraine headache) Qty: 1 0RF (unknown) (no (unknown) (unknown) 8 mg PO TID PRN (units (unknown) date) (Reason: Nausea) unknown) (unknown) (no (unknown) (unknown) ABLE TO (units (unkno wn) date) unknown) (unknown) (no (unknown) (unknown) Allergies (units (unkn own) date) unknown) (unknown) (no (unknown) (unknown) Apply 1 gram of (units (unknown) date) cream to rash unknown) twice daily until rash resolves up to 4 weeks. (unknown) (no (unknown) (unknown) Documented By: KF (units (unknown) date) unknown) (unknown) (no (unknown) (unknown) Documented By: (units (unknown) date) RLS unknown) (unknown) (no (unknown) (unknown) ED Orders (units (unkn own) date) unknown) (unknown) (no (unknown) (unknown) Emergency Report (units (unknown) date) unknown) (unknown) (no (unknown) (unknown) Home Medications (units (unknown) date) unknown) (unknown) (no (unknown) (unknown) [facility] (units (unknown) date) [address] [place] [address] unknown) [place] [address] (unknown) (no (unknown) (unknown) Lab Results (units (un known) date) unknown) (unknown) (no (unknown) (unknown) Label Comments: (units (unknown) date) unknown) (unknown) (no (unknown) (unknown) Last Admin: (units (un known) date) 04/13/22 09:58 unknown) Dose: 1,000 mls/hr (unknown) (no (unknown) (unknown) Last Admin: (units (un known) date) 04/13/22 09:59 unknown) Dose: 25 mg (unknown) (no (unknown) (unknown) Last Admin: (units (un known) date) 04/13/22 09:59 unknown) Dose: 5 mg (unknown) (no (unknown) (unknown) Last Admin: (units (un known) date) 04/13/22 10:12 unknown) Dose: 100 mls/hr (unknown) (no (unknown) (unknown) PT STATES (units (unkn own) date) unknown) (unknown) (no (unknown) (unknown) Previous Rx's (units ( unknown) date) unknown) (unknown) (no (unknown) (unknown) Rx Instructions: (units (unknown) date) unknown) (unknown) (no (unknown) (unknown) Stop: 04/13/22 (units (unknown) date) 09:48 unknown) (unknown) (no (unknown) (unknown) Stop: 04/13/22 (units (unknown) date) 10:46 unknown) (unknown) (no (unknown) (unknown) Stop: 04/13/22 (units (unknown) date) 11:39 unknown) (unknown) (no (unknown) (unknown) Stop: 04/13/22 (units (unknown) date) 14:14 unknown) (unknown) (no (unknown) (unknown) Stop: 04/13/22 (units (unknown) date) 14:44 unknown) (unknown) (no (unknown) (unknown) TAKE VA (units (unkno wn) date) unknown) (unknown) (no (unknown) (unknown) TO IV SITE (units (unk nown) date) unknown) (unknown) (no (unknown) (unknown) Vital Signs - 8 (units (unknown) date) hr unknown) (unknown) (no (unknown) (unknown) dissolve 1 tablet (units (unknown) date) by mouth up to unknown) three times a day (unknown) (no (unknown) (unknown) into each nostril (units (unknown) date) once; if abdominal unknown) migraine remains, may repeat total dose (unknown) (no (unknown) (unknown) take 1 tablet by (units (unknown) date) mouth once daily unknown) (unknown) (no (unknown) (unknown) take 1 tablet (units ( unknown) date) once weekly until unknown) rash resolves up to 4 weeks (unknown) (no (unknown) (unknown) (no value) (units (unk nown) date) unknown) (unknown) (no (unknown) (unknown) 04/13/22 04/13/22 (units (unknown) date) 04/13/22 unknown) Range/Units (unknown) (no (unknown) (unknown) 04/13/22 04/13/22 (units (unknown) date) Range/Units unknown) (unknown) (no (unknown) (unknown) 09:20 09:20 09:40 (units (unknown) date) unknown) (unknown) (no (unknown) (unknown) 09:40 09:55 (units (un known) date) unknown) (unknown) (no (unknown) (unknown) amlodipine 5 mg (units (unknown) date) tablet unknown) (unknown) (no (unknown) (unknown) bupropion HCl 100 (units (unknown) date) mg tablet unknown) sustained-release 12 hr (unknown) (no (unknown) (unknown) fluconazole 200 (units (unknown) date) mg tablet unknown) (unknown) (no (unknown) (unknown) lorazepam (units (unkn own) date) [Ativan] 0.5 mg unknown) tablet (unknown) (no (unknown) (unknown) miconazole (units (unk nown) date) nitrate 2 % cream unknown) (unknown) (no (unknown) (unknown) ondansetron 4 mg (units (unknown) date) tablet,disintegrat unknown) ing (unknown) (no (unknown) (unknown) ondansetron 8 mg (units (unknown) date) tablet,disintegrat unknown) ing (unknown) (no (unknown) (unknown) potassium (units (unkn own) date) chloride 20 mEq unknown) tablet extended release (unknown) (no (unknown) (unknown) sumatriptan 5 (units ( unknown) date) mg/actuation unknown) spray,non-aerosol (unknown) (no (unknown) (unknown) 04/13/22 (units (unkno wn) date) unknown) (unknown) (no (unknown) (unknown) Acute (units (unkno wn) date) hypokalemia, Acute unknown) kidney injury (unknown) (no (unknown) (unknown) Medication (units (unk nown) date) Instructions unknown) Recorded (unknown) (no (unknown) (unknown) Medication (units (unk nown) date) Instructions unknown) Recorded Confirmed (unknown) (no (unknown) (unknown) and below (units (unkn own) date) unknown) (unknown) (no (unknown) (unknown) in October and (units (u nknown) date) during her unknown) hospital stay the beginning of March. Patient's lab (unknown) (no (unknown) (unknown) or tongue on (units (u nknown) date) examination. unknown) (unknown) (no (unknown) (unknown) typical of her (units (unknown) date) prior unknown) exacerbations so imaging was deferred patient states she (unknown) (no (unknown) (unknown) vomiting #10 tabs (units (unknown) date) unknown) (unknown) (no (unknown) (unknown) 04/13/22 09:20 (units (unknown) date) unknown) (unknown) (no (unknown) (unknown) 04/13/22 09:36 (units (unknown) date) unknown) (unknown) (no (unknown) (unknown) 04/13/22 09:40 (units (unknown) date) unknown) (unknown) (no (unknown) (unknown) 04/13/22 09:46 (units (unknown) date) unknown) (unknown) (no (unknown) (unknown) 04/13/22 09:55 (units (unknown) date) unknown) (unknown) (no (unknown) (unknown) 04/13/22 10:40 (units (unknown) date) unknown) (unknown) (no (unknown) (unknown) 09:33 04/13/22 (units (unknown) date) unknown) (unknown) (no (unknown) (unknown) 09:36 (units (unkno wn) date) unknown) (unknown) (no (unknown) (unknown) 2 visits of her (units (unknown) date) tongue. Patient unknown) states she was told that this is from her COVID (unknown) (no (unknown) (unknown) [id number] (units (unkno wn) date) unknown) (unknown) (no (unknown) (unknown) @ 100 mls/hr IV (units (unknown) date) Q1H KIRIT unknown) (unknown) (no (unknown) (unknown) ABD:bowel sounds (units (unknown) date) normal, soft, unknown) mildly tender generalized, no guarding, rebound, (unknown) (no (unknown) (unknown) ALT (<35) IU/L (units (unknown) date) unknown) (unknown) (no (unknown) (unknown) ALT 35 H (<35) (units (unknown) date) IU/L unknown) (unknown) (no (unknown) (unknown) AST (14-36) IU/L (units (unknown) date) unknown) (unknown) (no (unknown) (unknown) AST 36 (14-36) (units (unknown) date) IU/L unknown) (unknown) (no (unknown) (unknown) Abscess (units (unkno wn) date) unknown) (unknown) (no (unknown) (unknown) Age/Sex: 46 / F (units (unknown) date) unknown) (unknown) (no (unknown) (unknown) Albumin (3.5-5.0) (units (unknown) date) g/dL unknown) (unknown) (no (unknown) (unknown) Albumin 5.6 H (units ( unknown) date) (3.5-5.0) g/dL unknown) (unknown) (no (unknown) (unknown) Albumin/Globulin (units (unknown) date) Ratio (1.0-2.8) unknown) (unknown) (no (unknown) (unknown) Albumin/Globulin (units (unknown) date) Ratio 1.1 unknown) (1.0-2.8) (unknown) (no (unknown) (unknown) Alcohol type: (units ( unknown) date) wine unknown) (unknown) (no (unknown) (unknown) Alkaline (units (unkno wn) date) Phosphatase unknown) (38-126) U/L (unknown) (no (unknown) (unknown) Alkaline (units (unkno wn) date) Phosphatase 96 unknown) (38-126) U/L (unknown) (no (unknown) (unknown) Allergy/AdvReac (units (unknown) date) Type Severity unknown) Reaction Status Date / Time (unknown) (no (unknown) (unknown) BUN (7-17) mg/dL (units (unknown) date) unknown) (unknown) (no (unknown) (unknown) BUN 31 H (7-17) (units (unknown) date) mg/dL unknown) (unknown) (no (unknown) (unknown) BUN/Creatinine (units (unknown) date) Ratio (6-22) unknown) (unknown) (no (unknown) (unknown) BUN/Creatinine (units (unknown) date) Ratio 18.0 (6-22) unknown) (unknown) (no (unknown) (unknown) Baso # (Auto) (units ( unknown) date) (0-100) /uL unknown) (unknown) (no (unknown) (unknown) Baso # (Auto) 0 (units (unknown) date) (0-100) /uL unknown) (unknown) (no (unknown) (unknown) Baso % (Auto) (units ( unknown) date) (0-2) % unknown) (unknown) (no (unknown) (unknown) Baso % (Auto) 0.5 (units (unknown) date) (0-2) % unknown) (unknown) (no (unknown) (unknown) Blood Culture (units ( unknown) date) Stat unknown) (unknown) (no (unknown) (unknown) Blood Pressure (units (unknown) date) 151/93 H 04/13/22 unknown) 09:33 (unknown) (no (unknown) (unknown) Blood Pressure (units (unknown) date) 151/93 H 151/93 H unknown) (unknown) (no (unknown) (unknown) COVID19 -Nasal (units (unknown) date) RAPID/Pre-Proc unknown) Stat (unknown) (no (unknown) (unknown) CT abdomen pelvis (units (unknown) date) w con Stat unknown) (unknown) (no (unknown) (unknown) Calcium (units (unkno wn) date) (8.4-10.2) mg/dL unknown) (unknown) (no (unknown) (unknown) Calcium 10.4 H (units (unknown) date) (8.4-10.2) mg/dL unknown) (unknown) (no (unknown) (unknown) Carbon Dioxide (units (unknown) date) (22-32) mmol/L unknown) (unknown) (no (unknown) (unknown) Carbon Dioxide 32 (units (unknown) date) (22-32) mmol/L unknown) (unknown) (no (unknown) (unknown) Chief complaint: (units (unknown) date) Abdominal Pain unknown) (unknown) (no (unknown) (unknown) Chloride (98-107) (units (unknown) date) mmol/L unknown) (unknown) (no (unknown) (unknown) Chloride 82 L (units ( unknown) date) (98-107) mmol/L unknown) (unknown) (no (unknown) (unknown) Chronic abdominal (units (unknown) date) pain unknown) (unknown) (no (unknown) (unknown) Clinical (units (unkno wn) date) Impression: unknown) (unknown) (no (unknown) (unknown) Complete Blood (units (unknown) date) Count AUTO DIFF unknown) Stat (unknown) (no (unknown) (unknown) Comprehensive (units ( unknown) date) Metabolic Panel unknown) Stat (unknown) (no (unknown) (unknown) Course (units (unkno wn) date) unknown) (unknown) (no (unknown) (unknown) Creatinine (units (unk nown) date) (0.52-1.04) mg/dL unknown) (unknown) (no (unknown) (unknown) Creatinine 1.72 H (units (unknown) date) (0.52-1.04) mg/dL unknown) (unknown) (no (unknown) (unknown) Cyclic vomiting (units (unknown) date) syndrome unknown) (unknown) (no (unknown) (unknown) : 1975 (units (unknown) date) Acct:[id number] unknown) (unknown) (no (unknown) (unknown) Daughter (units (unkno wn) date) Angio-edema unknown) (unknown) (no (unknown) (unknown) Departure (units (unkn own) date) unknown) (unknown) (no (unknown) (unknown) Diphenhydramine (units (unknown) date) HCl unknown) (Diphenhydramine 50 Mg/Ml Vial) 25 mg IV NOW ONE (unknown) (no (unknown) (unknown) Discharge Plan (units (unknown) date) unknown) (unknown) (no (unknown) (unknown) Discontinued (units (u nknown) date) Medications unknown) (unknown) (no (unknown) (unknown) EKG-12 Lead Stat (units (unknown) date) unknown) (unknown) (no (unknown) (unknown) ER Physician: (units ( unknown) date) Mine Harrington D.O. unknown) (unknown) (no (unknown) (unknown) ETOH [Ethanol (units ( unknown) date) (ETOH)] Stat unknown) (unknown) (no (unknown) (unknown) Eos # (Auto) (units (u nknown) date) (0-450) /uL unknown) (unknown) (no (unknown) (unknown) Eos # (Auto) 0 (units (unknown) date) (0-450) /uL unknown) (unknown) (no (unknown) (unknown) Eos % (Auto) (units (u nknown) date) (2-4) % unknown) (unknown) (no (unknown) (unknown) Eos % (Auto) 0.1 (units (unknown) date) L (2-4) % unknown) (unknown) (no (unknown) (unknown) Estimated GFR (units ( unknown) date) (>60) mL/min unknown) (unknown) (no (unknown) (unknown) Estimated GFR 36 (units (unknown) date) L (>60) mL/min unknown) (unknown) (no (unknown) (unknown) Ethyl Alcohol ( - (units (unknown) date) 10) mg/dL unknown) (unknown) (no (unknown) (unknown) Ethyl Alcohol < (units (unknown) date) 10 ( - 10) mg/dL unknown) (unknown) (no (unknown) (unknown) Exam (units (unkno wn) date) unknown) (unknown) (no (unknown) (unknown) Exam Narrative: (units (unknown) date) unknown) (unknown) (no (unknown) (unknown) Family History (units (unknown) date) (Reviewed 04/13/22 unknown) @ 09:52 by Mine Harrington DO) (unknown) (no (unknown) (unknown) Family history of (units (unknown) date) angioedema unknown) (unknown) (no (unknown) (unknown) Father (units (unkno wn) date) Hypertension unknown) (unknown) (no (unknown) (unknown) GEN: Female, (units (u nknown) date) alert and oriented unknown) x 3, patient appears to be in moderate (unknown) (no (unknown) (unknown) :No CVA (units (unkn own) date) tenderness unknown) (unknown) (no (unknown) (unknown) General (units (unkno wn) date) unknown) (unknown) (no (unknown) (unknown) GenericComposite[ (units (unknown) date) Plt Count unknown) (150-400) X10^3/uL ] (unknown) (no (unknown) (unknown) GenericComposite[ (units (unknown) date) Plt Count 284 unknown) (150-400) X10^3/uL ] (unknown) (no (unknown) (unknown) GenericComposite[ (units (unknown) date) RBC (4.0-5.2) unknown) X10^6/uL ] (unknown) (no (unknown) (unknown) GenericComposite[ (units (unknown) date) RBC 4.77 (4.0-5.2) unknown) X10^6/uL ] (unknown) (no (unknown) (unknown) GenericComposite[ (units (unknown) date) WBC (4.5-11.0) unknown) X10^3/uL ] (unknown) (no (unknown) (unknown) GenericComposite[ (units (unknown) date) WBC 6.2 (4.5-11.0) unknown) X10^3/uL ] (unknown) (no (unknown) (unknown) Globulin (units (unkno wn) date) (1.7-4.1) g/dL unknown) (unknown) (no (unknown) (unknown) Globulin 4.9 H (units (unknown) date) (1.7-4.1) g/dL unknown) (unknown) (no (unknown) (unknown) Glucose (70-100) (units (unknown) date) mg/dL unknown) (unknown) (no (unknown) (unknown) Glucose 134 H (units ( unknown) date) (70-100) mg/dL unknown) (unknown) (no (unknown) (unknown) HEART: Regular (units (unknown) date) rate and rhythm unknown) without murmur, clicks, rubs. (unknown) (no (unknown) (unknown) HEENT: (units (unkno wn) date) Atraumatic, pupils unknown) are equal round reactive to light, extraocular (unknown) (no (unknown) (unknown) HPI - (units (unkno wn) date) Nausea/Vomiting/Di unknown) arrhea (unknown) (no (unknown) (unknown) HPI Narrative: (units (unknown) date) unknown) (unknown) (no (unknown) (unknown) Haloperidol (units (un known) date) (Haloperidol 5 unknown) Mg/Ml Vial) 5 mg IV NOW ONE (unknown) (no (unknown) (unknown) Hct (36-46) % (units (unknown) date) unknown) (unknown) (no (unknown) (unknown) Hct 44.2 (36-46) (units (unknown) date) % unknown) (unknown) (no (unknown) (unknown) Hgb (12.0-16.0) (units (unknown) date) g/dL unknown) (unknown) (no (unknown) (unknown) Hgb 15.4 (units (unkno wn) date) (12.0-16.0) g/dL unknown) (unknown) (no (unknown) (unknown) History of (units (unk nown) date) Present Illness unknown) (unknown) (no (unknown) (unknown) Hx of (units (unkno wn) date) appendectomy unknown) (unknown) (no (unknown) (unknown) Hx of (units (unkno wn) date) cholecystectomy unknown) (unknown) (no (unknown) (unknown) Initial Vital (units ( unknown) date) Signs unknown) (unknown) (no (unknown) (unknown) Initial Vital (units ( unknown) date) Signs: unknown) (unknown) (no (unknown) (unknown) Sergo Martino MD (units (unknown) date) [Primary Care unknown) Provider] - (unknown) (no (unknown) (unknown) Ketones (units (o wn) date) (Beta-Hydroxybutyr unknown) ate) Stat (unknown) (no (unknown) (unknown) LUNGS:Lungs clear (units (unknown) date) to auscultation, unknown) no wheezes, rales, crackles, chest moves (unknown) (no (unknown) (unknown) Lab Data (units (unkno wn) date) unknown) (unknown) (no (unknown) (unknown) Labs: (units (o wn) date) unknown) (unknown) (no (unknown) (unknown) Lactate (0.7-2.1) (units (unknown) date) mmol/L unknown) (unknown) (no (unknown) (unknown) Lactate 9.7 H* (units (unknown) date) (0.7-2.1) mmol/L unknown) (unknown) (no (unknown) (unknown) Lactate (Lactic (units (unknown) date) Acid) Stat unknown) (unknown) (no (unknown) (unknown) Lactated Ringer's (units (unknown) date) (Lactated Ringers) unknown) 1,000 mls @ 1,000 mls/hr IV BOLUS ONE (unknown) (no (unknown) (unknown) Limitations: no (units (unknown) date) limitations unknown) (unknown) (no (unknown) (unknown) Lipase (23-300) (units (unknown) date) U/L unknown) (unknown) (no (unknown) (unknown) Lipase 96 (units (unkn own) date) (23-300) U/L unknown) (unknown) (no (unknown) (unknown) Lipase Stat (units (un known) date) unknown) (unknown) (no (unknown) (unknown) Lymph # (Auto) (units (unknown) date) (6875-2736) /uL unknown) (unknown) (no (unknown) (unknown) Lymph # (Auto) (units (unknown) date) 1300 (7763-5777) unknown) /uL (unknown) (no (unknown) (unknown) Lymph % (Auto) (units (unknown) date) (25-40) % unknown) (unknown) (no (unknown) (unknown) Lymph % (Auto) (units (unknown) date) 20.9 L (25-40) % unknown) (unknown) (no (unknown) (unknown) MCH (26-34) PG (units (unknown) date) unknown) (unknown) (no (unknown) (unknown) MCH 32.4 (26-34) (units (unknown) date) PG unknown) (unknown) (no (unknown) (unknown) MCHC (30-36) % (units (unknown) date) unknown) (unknown) (no (unknown) (unknown) MCHC 35.0 (30-36) (units (unknown) date) % unknown) (unknown) (no (unknown) (unknown) MCV (80-100) fL (units (unknown) date) unknown) (unknown) (no (unknown) (unknown) MCV 92.6 (80-100) (units (unknown) date) fL unknown) (unknown) (no (unknown) (unknown) MDM - (units (unkno wn) date) Nausea/Vomiting/Di unknown) arrhea (unknown) (no (unknown) (unknown) MDM Narrative (units ( unknown) date) unknown) (unknown) (no (unknown) (unknown) 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 (unknown) (no (unknown) (unknown) MSCL: Non-tender, (units (unknown) date) no muscle atrophy, unknown) muscles strength 5/5 upper and lower (unknown) (no (unknown) (unknown) Marijuana use, (units (unknown) date) continuous unknown) (unknown) (no (unknown) (unknown) Medical History (units (unknown) date) (Reviewed 04/13/22 unknown) @ 09:52 by Mine Harrington DO) (unknown) (no (unknown) (unknown) Medical decision (units (unknown) date) making narrative: unknown) (unknown) (no (unknown) (unknown) Centre # (Auto) (units ( unknown) date) (0-900) /uL unknown) (unknown) (no (unknown) (unknown) Centre # (Auto) 500 (units (unknown) date) (0-900) /uL unknown) (unknown) (no (unknown) (unknown) Centre % (Auto) (units ( unknown) date) (3-14) % unknown) (unknown) (no (unknown) (unknown) Centre % (Auto) 8.7 (units (unknown) date) (3-14) % unknown) (unknown) (no (unknown) (unknown) Mother Diabetes (units (unknown) date) mellitus unknown) (unknown) (no (unknown) (unknown) NEURO:CN 2-12 (units ( unknown) date) intact, sensation unknown) normall (unknown) (no (unknown) (unknown) Narrative (units (unkn own) date) unknown) (unknown) (no (unknown) (unknown) Neut # (Auto) (units ( unknown) date) (0221-9206) /uL unknown) (unknown) (no (unknown) (unknown) Neut # (Auto) (units ( unknown) date) 4300 (2898-6368) unknown) /uL (unknown) (no (unknown) (unknown) Neut % (Auto) (units ( unknown) date) (50-75) % unknown) (unknown) (no (unknown) (unknown) Neut % (Auto) (units ( unknown) date) 69.8 (50-75) % unknown) (unknown) (no (unknown) (unknown) No Action (units (unkn own) date) unknown) (unknown) (no (unknown) (unknown) Ordered: (units (unkno wn) date) unknown) (unknown) (no (unknown) (unknown) Orders (units (unkno wn) date) unknown) (unknown) (no (unknown) (unknown) Other Colon (units (un known) date) cancer unknown) (unknown) (no (unknown) (unknown) Oxygen Delivery (units (unknown) date) Method 04/13/22 unknown) 09:33 (unknown) (no (unknown) (unknown) Oxygen Delivery (units (unknown) date) Method Room Air unknown) Room Air (unknown) (no (unknown) (unknown) POTASSIUM (units (unkn own) date) CHLORIDE IN WATER unknown) (Potassium Cl 10 Meq/100 Ml Lidia) 10 meq in 100 mls (unknown) (no (unknown) (unknown) Pancreatitis (units (u nknown) date) unknown) (unknown) (no (unknown) (unknown) Patient History (units (unknown) date) unknown) (unknown) (no (unknown) (unknown) Patient is (units (unk nown) date) sleeping after unknown) medications. She is hypokalemic, she is acute kidney (unknown) (no (unknown) (unknown) Patient presents (units (unknown) date) with complaint of unknown) abdominal pain and vomiting consistent with (unknown) (no (unknown) (unknown) Patient: (units (unkno wn) date) Dameon Castro MR#: unknown) [id number] (unknown) (no (unknown) (unknown) Potassium (units (unkn own) date) (3.4-5.1) mmol/L unknown) (unknown) (no (unknown) (unknown) Potassium 2.7 L* (units (unknown) date) (3.4-5.1) mmol/L unknown) (unknown) (no (unknown) (unknown) Prescriptions: (units (unknown) date) unknown) (unknown) (no (unknown) (unknown) Pulse Oximetry 98 (units (unknown) date) 04/13/22 09:33 unknown) (unknown) (no (unknown) (unknown) Pulse Oximetry 98 (units (unknown) date) 100 unknown) (unknown) (no (unknown) (unknown) Pulse Rate 90 (units ( unknown) date) 04/13/22 09:33 unknown) (unknown) (no (unknown) (unknown) Pulse Rate 90 98 (units (unknown) date) H unknown) (unknown) (no (unknown) (unknown) RDW (11.6-14.8) % (units (unknown) date) unknown) (unknown) (no (unknown) (unknown) RDW 13.8 (units (unkno wn) date) (11.6-14.8) % unknown) (unknown) (no (unknown) (unknown) ROS Unobtainable: (units (unknown) date) All systems unknown) reviewed + are unremarkable except as noted in HPI (unknown) (no (unknown) (unknown) Reevaluation #1: (units (unknown) date) unknown) (unknown) (no (unknown) (unknown) Reevaluation(s) (units (unknown) date) unknown) (unknown) (no (unknown) (unknown) Referrals: (units (unk nown) date) unknown) (unknown) (no (unknown) (unknown) Related Data (units (u nknown) date) unknown) (unknown) (no (unknown) (unknown) Respiratory Rate (units (unknown) date) 16 04/13/22 09:33 unknown) (unknown) (no (unknown) (unknown) Respiratory Rate (units (unknown) date) 16 unknown) (unknown) (no (unknown) (unknown) Result diagrams: (units (unknown) date) unknown) (unknown) (no (unknown) (unknown) Review of Systems (units (unknown) date) unknown) (unknown) (no (unknown) (unknown) SARS-CoV-2 (PCR) (units (unknown) date) (Negative) unknown) (unknown) (no (unknown) (unknown) SARS-CoV-2 (PCR) (units (unknown) date) Negative unknown) (Negative) (unknown) (no (unknown) (unknown) SKIN: No rash, (units (unknown) date) erythema or other unknown) skin changes noted. (unknown) (no (unknown) (unknown) Signed By: (units (unk nown) date) unknown) (unknown) (no (unknown) (unknown) Smoking Status: (units (unknown) date) Current every day unknown) smoker (unknown) (no (unknown) (unknown) Smoking Status: (units (unknown) date) Current every day unknown) smoker (unknown) (no (unknown) (unknown) Social History (units (unknown) date) (Reviewed 04/13/22 unknown) @ 09:52 by Mine Harrington DO) (unknown) (no (unknown) (unknown) Sodium (137-145) (units (unknown) date) mmol/L unknown) (unknown) (no (unknown) (unknown) Sodium 138 (units (unk nown) date) (137-145) mmol/L unknown) (unknown) (no (unknown) (unknown) Sodium Chloride (units (unknown) date) (Normal Saline unknown) 0.9%) 1,000 mls @ 1,000 mls/hr IV BOLUS ONE (unknown) (no (unknown) (unknown) Source: patient (units (unknown) date) and old records unknown) reviewed (unknown) (no (unknown) (unknown) Stated complaint: (units (unknown) date) cyclical vomiting unknown) (unknown) (no (unknown) (unknown) States her pain (units (unknown) date) is typical of her unknown) past episodes. Patient states she is been (unknown) (no (unknown) (unknown) Substance Use (units ( unknown) date) Type: marijuana unknown) (unknown) (no (unknown) (unknown) Surgical History (units (unknown) date) (Reviewed 04/13/22 unknown) @ 09:52 by Mine Harrington DO) (unknown) (no (unknown) (unknown) Temperature 98.0 (units (unknown) date) F 04/13/22 09:33 unknown) (unknown) (no (unknown) (unknown) Temperature 98.0 (units (unknown) date) F unknown) (unknown) (no (unknown) (unknown) This is a (units (unkn own) date) 46-year-old female unknown) with history of cyclic vomiting, polysubstance (unknown) (no (unknown) (unknown) Time Seen by (units (u nknown) date) Provider: 04/13/22 unknown) 09:27 (unknown) (no (unknown) (unknown) Time: 10:45 (units (un known) date) unknown) (unknown) (no (unknown) (unknown) Total Bilirubin (units (unknown) date) (0.2-1.3) mg/dL unknown) (unknown) (no (unknown) (unknown) Total Bilirubin (units (unknown) date) 1.4 H (0.2-1.3) unknown) mg/dL (unknown) (no (unknown) (unknown) Total Protein (units ( unknown) date) (6.3-8.2) g/dL unknown) (unknown) (no (unknown) (unknown) Total Protein (units ( unknown) date) 10.5 H (6.3-8.2) unknown) g/dL (unknown) (no (unknown) (unknown) Urine Drug (units (unk nown) date) Screen, Rapid Stat unknown) (unknown) (no (unknown) (unknown) VBG [Venous Blood (units (unknown) date) Gas] Stat unknown) (unknown) (no (unknown) (unknown) Vital Signs (units (un known) date) unknown) (unknown) (no (unknown) (unknown) Vital signs: (units (u nknown) date) unknown) (unknown) (no (unknown) (unknown) [Embedded Image (units (unknown) date) Not Available] unknown) (unknown) (no (unknown) (unknown) [METOCLOPRAMIDE] (units (unknown) date) unknown) (unknown) (no (unknown) (unknown) abuse, alcohol (units (unknown) date) use and unknown) angioedema. Patient presents with complaint of vomiting (unknown) (no (unknown) (unknown) alcohol intake (units (unknown) date) frequency: 3 or unknown) more drinks per day (unknown) (no (unknown) (unknown) alcohol intake: (units (unknown) date) current unknown) (unknown) (no (unknown) (unknown) allergies to (units (un known) date) Reglan, unknown) promethazine IV but can tolerate per rectum and latex. She (unknown) (no (unknown) (unknown) amlodipine 5 mg (units (unknown) date) tablet 5 mg PO unknown) DAILY 03/20/22 03/20/22 (unknown) (no (unknown) (unknown) angioedema (units (unkn own) date) although she is unknown) had 2 episodes with her oropharynx on her past visits (unknown) (no (unknown) (unknown) based on this (units ( unknown) date) imaging was unknown) obtained. Plan to continue with hydration, repeat (unknown) (no (unknown) (unknown) bleeding or (units (un known) date) discharge. Patient unknown) states she has not been able to keep down her (unknown) (no (unknown) (unknown) bloody stools. (units (unknown) date) She states no unknown) dysuria, urgency or frequency. No vaginal (unknown) (no (unknown) (unknown) bupropion HCl 100 (units (unknown) date) mg tablet,12 hr unknown) 100 mg PO DAILY 03/20/22 03/20/22 (unknown) (no (unknown) (unknown) cream (units (unkno wn) date) unknown) (unknown) (no (unknown) (unknown) distress. (units (unkn own) date) unknown) (unknown) (no (unknown) (unknown) does use tobacco, (units (unknown) date) states she drinks unknown) 3-5 alcoholic drinks daily and states she (unknown) (no (unknown) (unknown) electrolytes, (units ( unknown) date) renal function unknown) were obtained. Fluids, Haldol and Benadryl as (unknown) (no (unknown) (unknown) erythema, (units (unkno wn) date) tonsillar unknown) enlargement or uvular deviation, no obvious swelling of lips (unknown) (no (unknown) (unknown) extremities, full (units (unknown) date) range of motion unknown) (unknown) (no (unknown) (unknown) fluconazole 200 (units (unknown) date) mg tablet 200 mg unknown) PO WEEKLY 4 weeks #4 tabs 03/21/22 (unknown) (no (unknown) (unknown) for the past 3 (units (unknown) date) days. 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 We (units (unknown) date) did discuss that unknown) she was noted to have angioedema on the last (unknown) (no (unknown) (unknown) injury again (units (u nknown) date) today and her unknown) lactate is 9. Patient's exam was reassuring but (unknown) (no (unknown) (unknown) is comfortable (units (unknown) date) with this and not unknown) receiving more radiation. Labs including (unknown) (no (unknown) (unknown) lactate and (units (un known) date) replacement of unknown) potassium IV with equal for admission. (unknown) (no (unknown) (unknown) last cocaine use (units (unknown) date) but does not think unknown) it was recently. She is accompanied by her (unknown) (no (unknown) (unknown) latex [LATEX] (units ( unknown) date) Allergy Unknown unknown) Verified 04/13/22 09:42 (unknown) (no (unknown) (unknown) lorazepam 0.5 mg (units (unknown) date) tablet (Ativan) unknown) 0.5 mg PO DAILY PRN nausea and 11/03/21 (unknown) (no (unknown) (unknown) metoclopramide (units (unknown) date) AdvReac Unknown unknown) DYSTONIA Verified 04/13/22 09:42 (unknown) (no (unknown) (unknown) miconazole (units (unk nown) date) nitrate 2 % unknown) topical 1 applic topical BID #30 grams 03/21/22 (unknown) (no (unknown) (unknown) morning which was (units (unknown) date) not helpful. unknown) Patient states no surgeries. She does have (unknown) (no (unknown) (unknown) movements are (units ( unknown) date) intact, nares are unknown) clear, Throat is clear without any exudates, (unknown) (no (unknown) (unknown) once after at (units ( unknown) date) least 2 hours unknown) (unknown) (no (unknown) (unknown) ondansetron 4 mg (units (unknown) date) disintegrating 4 unknown) mg PO Q8H PRN nausea and 07/28/19 (unknown) (no (unknown) (unknown) ondansetron 8 mg (units (unknown) date) disintegrating 8 unknown) mg PO TID PRN Nausea 09/18/19 03/20/22 (unknown) (no (unknown) (unknown) patient has often (units (unknown) date) responded well to unknown) these. (unknown) (no (unknown) (unknown) potassium (units (unkn own) date) chloride 20 mEq 20 unknown) meq PO DAILY #30 tabs 03/21/22 (unknown) (no (unknown) (unknown) promethazine (units (u nknown) date) [PROMETHAZINE] unknown) Allergy Mild ERYTHEMA Verified 04/13/22 09:42 (unknown) (no (unknown) (unknown) rigidity, no (units (u nknown) date) masses noted, no unknown) hepatosplenomegaly , no distention. No bruit. (unknown) (no (unknown) (unknown) spray headache #1 (units (unknown) date) ea unknown) (unknown) (no (unknown) (unknown) stooling (units (unkno wn) date) regularly with no unknown) diarrhea or constipation and denies any black or (unknown) (no (unknown) (unknown) sumatriptan 5 (units ( unknown) date) mg/actuation nasal unknown) 5 mg intranasal Q2-4H PRN migraine 06/04/21 (unknown) (no (unknown) (unknown) sustained-release (units (unknown) date) unknown) (unknown) (no (unknown) (unknown) symmetrically, no (units (unknown) date) tachypnea unknown) accessory muscle use. (unknown) (no (unknown) (unknown) tablet (units (unkno wn) date) unknown) (unknown) (no (unknown) (unknown) tablet vomiting (units (unknown) date) #10 tabs unknown) (unknown) (no (unknown) (unknown) tablet,extended (units (unknown) date) release unknown) (unknown) (no (unknown) (unknown) tobacco type: (units ( unknown) date) vaping unknown) (unknown) (no (unknown) (unknown) use cocaine (units (un known) date) intermittently. unknown) She is not currently having any symptoms of (unknown) (no (unknown) (unknown) uses THC (units (unkno wn) date) intermittently as unknown) well as cocaine. Patient states she is unsure of her (unknown) (no (unknown) (unknown) vaccination. She (units (unknown) date) had testing sent unknown) for hereditary angioedema but does not know (unknown) (no (unknown) (unknown) vomiting episodes (units (unknown) date) in the past. She unknown) denies fevers. She states she is been (unknown) (no (unknown) (unknown) vomiting up (units (un known) date) everything she unknown) tries to put in her stomach, denies any hemoptysis. (unknown) (no (unknown) (unknown) what the results (units (unknown) date) of those were. unknown) (unknown) (no (unknown) (unknown) work was reviewed (units (unknown) date) complement testing unknown) was sent. Patient states symptoms are very Result panel 58 (unknown) (no date) (unknown) (unknown) < 10 mg/dL (unkn own) (unknown) (no date) (unknown) (unknown) 0.20 mmol/L (unkn own) Result panel 59 (unknown) (no (unknown) (unknown) (no value) (units (unk nown) date) unknown) (unknown) (no (unknown) (unknown) Date of Service: (units (unknown) date) 04/13/22 unknown) (unknown) (no (unknown) (unknown) (no value) (units (unk nown) date) unknown) (unknown) (no (unknown) (unknown) 0.5 mg PO DAILY (units (unknown) date) PRN (Reason: unknown) nausea and vomiting) Qty: 10 0RF (unknown) (no (unknown) (unknown) 04/13/22 09:20 (units (unknown) date) unknown) (unknown) (no (unknown) (unknown) 1 applic topical (units (unknown) date) BID Qty: 30 0RF unknown) (unknown) (no (unknown) (unknown) 100 mg PO DAILY (units (unknown) date) unknown) (unknown) (no (unknown) (unknown) 20 meq PO DAILY (units (unknown) date) Qty: 30 0RF unknown) (unknown) (no (unknown) (unknown) 200 mg PO WEEKLY (units (unknown) date) 28 Days Qty: 4 0RF unknown) (unknown) (no (unknown) (unknown) 4 mg PO Q8H PRN (units (unknown) date) (Reason: nausea unknown) and vomiting) Qty: 10 0RF (unknown) (no (unknown) (unknown) 5 mg PO DAILY (units ( unknown) date) unknown) (unknown) (no (unknown) (unknown) 5 mg intranasal (units (unknown) date) Q2-4H PRN (Reason: unknown) migraine headache) Qty: 1 0RF (unknown) (no (unknown) (unknown) 8 mg PO TID PRN (units (unknown) date) (Reason: Nausea) unknown) (unknown) (no (unknown) (unknown) ABLE TO (units (unkno wn) date) unknown) (unknown) (no (unknown) (unknown) Allergies (units (unkn own) date) unknown) (unknown) (no (unknown) (unknown) Apply 1 gram of (units (unknown) date) cream to rash unknown) twice daily until rash resolves up to 4 weeks. (unknown) (no (unknown) (unknown) Documented By: KF (units (unknown) date) unknown) (unknown) (no (unknown) (unknown) Documented By: (units (unknown) date) RLS unknown) (unknown) (no (unknown) (unknown) ED Orders (units (unkn own) date) unknown) (unknown) (no (unknown) (unknown) Emergency Report (units (unknown) date) unknown) (unknown) (no (unknown) (unknown) Home Medications (units (unknown) date) unknown) (unknown) (no (unknown) (unknown) [facility] (units (unknown) date) [address] unknown) [place] [address] (unknown) (no (unknown) (unknown) Lab Results (units (un known) date) unknown) (unknown) (no (unknown) (unknown) Label Comments: (units (unknown) date) unknown) (unknown) (no (unknown) (unknown) Last Admin: (units (un known) date) 04/13/22 09:58 unknown) Dose: 1,000 mls/hr (unknown) (no (unknown) (unknown) Last Admin: (units (un known) date) 04/13/22 09:59 unknown) Dose: 25 mg (unknown) (no (unknown) (unknown) Last Admin: (units (un known) date) 04/13/22 09:59 unknown) Dose: 5 mg (unknown) (no (unknown) (unknown) Last Admin: (units (un known) date) 04/13/22 10:12 unknown) Dose: 100 mls/hr (unknown) (no (unknown) (unknown) PT STATES (units (unkn own) date) unknown) (unknown) (no (unknown) (unknown) Previous Rx's (units ( unknown) date) unknown) (unknown) (no (unknown) (unknown) Rx Instructions: (units (unknown) date) unknown) (unknown) (no (unknown) (unknown) Stop: 04/13/22 (units (unknown) date) 09:48 unknown) (unknown) (no (unknown) (unknown) Stop: 04/13/22 (units (unknown) date) 10:46 unknown) (unknown) (no (unknown) (unknown) Stop: 04/13/22 (units (unknown) date) 11:39 unknown) (unknown) (no (unknown) (unknown) Stop: 04/13/22 (units (unknown) date) 14:14 unknown) (unknown) (no (unknown) (unknown) Stop: 04/13/22 (units (unknown) date) 14:44 unknown) (unknown) (no (unknown) (unknown) TAKE [facility] (units (unkno wn) date) unknown) (unknown) (no (unknown) (unknown) TO IV SITE (units (unk nown) date) unknown) (unknown) (no (unknown) (unknown) Vital Signs - 8 (units (unknown) date) hr unknown) (unknown) (no (unknown) (unknown) dissolve 1 tablet (units (unknown) date) by mouth up to unknown) three times a day (unknown) (no (unknown) (unknown) into each nostril (units (unknown) date) once; if abdominal unknown) migraine remains, may repeat total dose (unknown) (no (unknown) (unknown) take 1 tablet by (units (unknown) date) mouth once daily unknown) (unknown) (no (unknown) (unknown) take 1 tablet (units ( unknown) date) once weekly until unknown) rash resolves up to 4 weeks (unknown) (no (unknown) (unknown) (no value) (units (unk nown) date) unknown) (unknown) (no (unknown) (unknown) 04/13/22 04/13/22 (units (unknown) date) 04/13/22 unknown) Range/Units (unknown) (no (unknown) (unknown) 04/13/22 04/13/22 (units (unknown) date) Range/Units unknown) (unknown) (no (unknown) (unknown) 09:20 09:20 09:40 (units (unknown) date) unknown) (unknown) (no (unknown) (unknown) 09:40 09:55 (units (un known) date) unknown) (unknown) (no (unknown) (unknown) amlodipine 5 mg (units (unknown) date) tablet unknown) (unknown) (no (unknown) (unknown) bupropion HCl 100 (units (unknown) date) mg tablet unknown) sustained-release 12 hr (unknown) (no (unknown) (unknown) fluconazole 200 (units (unknown) date) mg tablet unknown) (unknown) (no (unknown) (unknown) lorazepam (units (unkn own) date) [Ativan] 0.5 mg unknown) tablet (unknown) (no (unknown) (unknown) miconazole (units (unk nown) date) nitrate 2 % cream unknown) (unknown) (no (unknown) (unknown) ondansetron 4 mg (units (unknown) date) tablet,disintegrat unknown) ing (unknown) (no (unknown) (unknown) ondansetron 8 mg (units (unknown) date) tablet,disintegrat unknown) ing (unknown) (no (unknown) (unknown) potassium (units (unkn own) date) chloride 20 mEq unknown) tablet extended release (unknown) (no (unknown) (unknown) sumatriptan 5 (units ( unknown) date) mg/actuation unknown) spray,non-aerosol (unknown) (no (unknown) (unknown) 04/13/22 (units (unkno wn) date) unknown) (unknown) (no (unknown) (unknown) Acute (units (unkno wn) date) hypokalemia, Acute unknown) kidney injury (unknown) (no (unknown) (unknown) Medication (units (unk nown) date) Instructions unknown) Recorded (unknown) (no (unknown) (unknown) Medication (units (unk n) date) Instructions unknown) Recorded Confirmed (unknown) (no (unknown) (unknown) and below (units (unkn own) date) unknown) (unknown) (no (unknown) (unknown) in October and (units (u nknown) date) during her unknown) hospital stay the beginning of March. Patient's lab (unknown) (no (unknown) (unknown) or tongue on (units (u nknown) date) examination. unknown) (unknown) (no (unknown) (unknown) typical of her (units (unknown) date) prior unknown) exacerbations so imaging was deferred patient states she (unknown) (no (unknown) (unknown) vomiting #10 tabs (units (unknown) date) unknown) (unknown) (no (unknown) (unknown) 04/13/22 09:20 (units (unknown) date) unknown) (unknown) (no (unknown) (unknown) 04/13/22 09:36 (units (unknown) date) unknown) (unknown) (no (unknown) (unknown) 04/13/22 09:40 (units (unknown) date) unknown) (unknown) (no (unknown) (unknown) 04/13/22 09:46 (units (unknown) date) unknown) (unknown) (no (unknown) (unknown) 04/13/22 09:55 (units (unknown) date) unknown) (unknown) (no (unknown) (unknown) 04/13/22 10:40 (units (unknown) date) unknown) (unknown) (no (unknown) (unknown) 09:33 04/13/22 (units (unknown) date) unknown) (unknown) (no (unknown) (unknown) 09:36 (units (unkno wn) date) unknown) (unknown) (no (unknown) (unknown) 2 visits of her (units (unknown) date) tongue. Patient unknown) states she was told that this is from her COVID (unknown) (no (unknown) (unknown) [id number] (units (unkno wn) date) unknown) (unknown) (no (unknown) (unknown) @ 100 mls/hr IV (units (unknown) date) Q1H KIRIT unknown) (unknown) (no (unknown) (unknown) ABD:bowel sounds (units (unknown) date) normal, soft, unknown) mildly tender generalized, no guarding, rebound, (unknown) (no (unknown) (unknown) ALT (<35) IU/L (units (unknown) date) unknown) (unknown) (no (unknown) (unknown) ALT 35 H (<35) (units (unknown) date) IU/L unknown) (unknown) (no (unknown) (unknown) AST (14-36) IU/L (units (unknown) date) unknown) (unknown) (no (unknown) (unknown) AST 36 (14-36) (units (unknown) date) IU/L unknown) (unknown) (no (unknown) (unknown) Abscess (units (unkno wn) date) unknown) (unknown) (no (unknown) (unknown) Age/Sex: 46 / F (units (unknown) date) unknown) (unknown) (no (unknown) (unknown) Albumin (3.5-5.0) (units (unknown) date) g/dL unknown) (unknown) (no (unknown) (unknown) Albumin 5.6 H (units ( unknown) date) (3.5-5.0) g/dL unknown) (unknown) (no (unknown) (unknown) Albumin/Globulin (units (unknown) date) Ratio (1.0-2.8) unknown) (unknown) (no (unknown) (unknown) Albumin/Globulin (units (unknown) date) Ratio 1.1 unknown) (1.0-2.8) (unknown) (no (unknown) (unknown) Alcohol type: (units ( unknown) date) wine unknown) (unknown) (no (unknown) (unknown) Alkaline (units (unkno wn) date) Phosphatase unknown) (38-126) U/L (unknown) (no (unknown) (unknown) Alkaline (units (unkno wn) date) Phosphatase 96 unknown) (38-126) U/L (unknown) (no (unknown) (unknown) Allergy/AdvReac (units (unknown) date) Type Severity unknown) Reaction Status Date / Time (unknown) (no (unknown) (unknown) Attestation: I (units (unknown) date) personally unknown) reviewed and interpreted this ECG as follows: (unknown) (no (unknown) (unknown) BUN (7-17) mg/dL (units (unknown) date) unknown) (unknown) (no (unknown) (unknown) BUN 31 H (7-17) (units (unknown) date) mg/dL unknown) (unknown) (no (unknown) (unknown) BUN/Creatinine (units (unknown) date) Ratio (6-22) unknown) (unknown) (no (unknown) (unknown) BUN/Creatinine (units (unknown) date) Ratio 18.0 (6-22) unknown) (unknown) (no (unknown) (unknown) Baso # (Auto) (units ( unknown) date) (0-100) /uL unknown) (unknown) (no (unknown) (unknown) Baso # (Auto) 0 (units (unknown) date) (0-100) /uL unknown) (unknown) (no (unknown) (unknown) Baso % (Auto) (units ( unknown) date) (0-2) % unknown) (unknown) (no (unknown) (unknown) Baso % (Auto) 0.5 (units (unknown) date) (0-2) % unknown) (unknown) (no (unknown) (unknown) Blood Culture (units ( unknown) date) Stat unknown) (unknown) (no (unknown) (unknown) Blood Pressure (units (unknown) date) 151/93 H 04/13/22 unknown) 09:33 (unknown) (no (unknown) (unknown) Blood Pressure (units (unknown) date) 151/93 H 151/93 H unknown) (unknown) (no (unknown) (unknown) COVID19 -Nasal (units (unknown) date) RAPID/Pre-Proc unknown) Stat (unknown) (no (unknown) (unknown) CT abdomen pelvis (units (unknown) date) w con Stat unknown) (unknown) (no (unknown) (unknown) Calcium (units (unkno wn) date) (8.4-10.2) mg/dL unknown) (unknown) (no (unknown) (unknown) Calcium 10.4 H (units (unknown) date) (8.4-10.2) mg/dL unknown) (unknown) (no (unknown) (unknown) Carbon Dioxide (units (unknown) date) (22-32) mmol/L unknown) (unknown) (no (unknown) (unknown) Carbon Dioxide 32 (units (unknown) date) (22-32) mmol/L unknown) (unknown) (no (unknown) (unknown) Chief complaint: (units (unknown) date) Abdominal Pain unknown) (unknown) (no (unknown) (unknown) Chloride (98-107) (units (unknown) date) mmol/L unknown) (unknown) (no (unknown) (unknown) Chloride 82 L (units ( unknown) date) (98-107) mmol/L unknown) (unknown) (no (unknown) (unknown) Chronic abdominal (units (unknown) date) pain unknown) (unknown) (no (unknown) (unknown) Clinical (units ( wn) date) Impression: unknown) (unknown) (no (unknown) (unknown) Complete Blood (units (unknown) date) Count AUTO DIFF unknown) Stat (unknown) (no (unknown) (unknown) Comprehensive (units ( unknown) date) Metabolic Panel unknown) Stat (unknown) (no (unknown) (unknown) Course (units (o wn) date) unknown) (unknown) (no (unknown) (unknown) Creatinine (units (unk nown) date) (0.52-1.04) mg/dL unknown) (unknown) (no (unknown) (unknown) Creatinine 1.72 H (units (unknown) date) (0.52-1.04) mg/dL unknown) (unknown) (no (unknown) (unknown) Cyclic vomiting (units (unknown) date) syndrome unknown) (unknown) (no (unknown) (unknown) : 1975 (units (unknown) date) Acct:[id number] unknown) (unknown) (no (unknown) (unknown) Daughter (units ( wn) date) Angio-edema unknown) (unknown) (no (unknown) (unknown) Departure (units ( own) date) unknown) (unknown) (no (unknown) (unknown) Diphenhydramine (units (unknown) date) HCl unknown) (Diphenhydramine 50 Mg/Ml Vial) 25 mg IV NOW ONE (unknown) (no (unknown) (unknown) Discharge Plan (units (unknown) date) unknown) (unknown) (no (unknown) (unknown) Discontinued (units (u nknown) date) Medications unknown) (unknown) (no (unknown) (unknown) ECG Data (units (o wn) date) unknown) (unknown) (no (unknown) (unknown) EKG-12 Lead Stat (units (unknown) date) unknown) (unknown) (no (unknown) (unknown) ER Physician: (units ( unknown) date) Mine Harrington D.O. unknown) (unknown) (no (unknown) (unknown) ETOH [Ethanol (units ( unknown) date) (ETOH)] Stat unknown) (unknown) (no (unknown) (unknown) Eos # (Auto) (units (u nknown) date) (0-450) /uL unknown) (unknown) (no (unknown) (unknown) Eos # (Auto) 0 (units (unknown) date) (0-450) /uL unknown) (unknown) (no (unknown) (unknown) Eos % (Auto) (units (u nknown) date) (2-4) % unknown) (unknown) (no (unknown) (unknown) Eos % (Auto) 0.1 (units (unknown) date) L (2-4) % unknown) (unknown) (no (unknown) (unknown) Estimated GFR (units ( unknown) date) (>60) mL/min unknown) (unknown) (no (unknown) (unknown) Estimated GFR 36 (units (unknown) date) L (>60) mL/min unknown) (unknown) (no (unknown) (unknown) Ethyl Alcohol ( - (units (unknown) date) 10) mg/dL unknown) (unknown) (no (unknown) (unknown) Ethyl Alcohol < (units (unknown) date) 10 ( - 10) mg/dL unknown) (unknown) (no (unknown) (unknown) Exam (units (unkno wn) date) unknown) (unknown) (no (unknown) (unknown) Exam Narrative: (units (unknown) date) unknown) (unknown) (no (unknown) (unknown) Family History (units (unknown) date) (Reviewed 04/13/22 unknown) @ 09:52 by Mine Harrington DO) (unknown) (no (unknown) (unknown) Family history of (units (unknown) date) angioedema unknown) (unknown) (no (unknown) (unknown) Father (units (unkno wn) date) Hypertension unknown) (unknown) (no (unknown) (unknown) GEN: Female, (units (u nknown) date) alert and oriented unknown) x 3, patient appears to be in moderate (unknown) (no (unknown) (unknown) :No CVA (units (unkn own) date) tenderness unknown) (unknown) (no (unknown) (unknown) General (units (unkno wn) date) unknown) (unknown) (no (unknown) (unknown) GenericComposite[ (units (unknown) date) Plt Count unknown) (150-400) X10^3/uL ] (unknown) (no (unknown) (unknown) GenericComposite[ (units (unknown) date) Plt Count 284 unknown) (150-400) X10^3/uL ] (unknown) (no (unknown) (unknown) GenericComposite[ (units (unknown) date) RBC (4.0-5.2) unknown) X10^6/uL ] (unknown) (no (unknown) (unknown) GenericComposite[ (units (unknown) date) RBC 4.77 (4.0-5.2) unknown) X10^6/uL ] (unknown) (no (unknown) (unknown) GenericComposite[ (units (unknown) date) WBC (4.5-11.0) unknown) X10^3/uL ] (unknown) (no (unknown) (unknown) GenericComposite[ (units (unknown) date) WBC 6.2 (4.5-11.0) unknown) X10^3/uL ] (unknown) (no (unknown) (unknown) Globulin (units (unkno wn) date) (1.7-4.1) g/dL unknown) (unknown) (no (unknown) (unknown) Globulin 4.9 H (units (unknown) date) (1.7-4.1) g/dL unknown) (unknown) (no (unknown) (unknown) Glucose (70-100) (units (unknown) date) mg/dL unknown) (unknown) (no (unknown) (unknown) Glucose 134 H (units ( unknown) date) (70-100) mg/dL unknown) (unknown) (no (unknown) (unknown) HEART: Regular (units (unknown) date) rate and rhythm unknown) without murmur, clicks, rubs. (unknown) (no (unknown) (unknown) HEENT: (units (unkno wn) date) Atraumatic, pupils unknown) are equal round reactive to light, extraocular (unknown) (no (unknown) (unknown) HPI - (units (unkno wn) date) Nausea/Vomiting/Di unknown) arrhea (unknown) (no (unknown) (unknown) HPI Narrative: (units (unknown) date) unknown) (unknown) (no (unknown) (unknown) Haloperidol (units (un known) date) (Haloperidol 5 unknown) Mg/Ml Vial) 5 mg IV NOW ONE (unknown) (no (unknown) (unknown) Hct (36-46) % (units ( unknown) date) unknown) (unknown) (no (unknown) (unknown) Hct 44.2 (36-46) (units (unknown) date) % unknown) (unknown) (no (unknown) (unknown) Hgb (12.0-16.0) (units (unknown) date) g/dL unknown) (unknown) (no (unknown) (unknown) Hgb 15.4 (units (unkno wn) date) (12.0-16.0) g/dL unknown) (unknown) (no (unknown) (unknown) History of (units (unk nown) date) Present Illness unknown) (unknown) (no (unknown) (unknown) Hx of (units (unkno wn) date) appendectomy unknown) (unknown) (no (unknown) (unknown) Hx of (units (unkno wn) date) cholecystectomy unknown) (unknown) (no (unknown) (unknown) Initial Vital (units ( unknown) date) Signs unknown) (unknown) (no (unknown) (unknown) Initial Vital (units ( unknown) date) Signs: unknown) (unknown) (no (unknown) (unknown) Interpretation: (units (unknown) date) unknown) (unknown) (no (unknown) (unknown) Sergo Martino MD (units (unknown) date) [Primary Care unknown) Provider] - (unknown) (no (unknown) (unknown) Ketones (units (unkno wn) date) (Beta-Hydroxybutyr unknown) ate) Stat (unknown) (no (unknown) (unknown) LUNGS:Lungs clear (units (unknown) date) to auscultation, unknown) no wheezes, rales, crackles, chest moves (unknown) (no (unknown) (unknown) Lab Data (units (unkno wn) date) unknown) (unknown) (no (unknown) (unknown) Labs: (units (unkno wn) date) unknown) (unknown) (no (unknown) (unknown) Lactate (0.7-2.1) (units (unknown) date) mmol/L unknown) (unknown) (no (unknown) (unknown) Lactate 9.7 H* (units (unknown) date) (0.7-2.1) mmol/L unknown) (unknown) (no (unknown) (unknown) Lactate (Lactic (units (unknown) date) Acid) Stat unknown) (unknown) (no (unknown) (unknown) Lactated Ringer's (units (unknown) date) (Lactated Ringers) unknown) 1,000 mls @ 1,000 mls/hr IV BOLUS ONE (unknown) (no (unknown) (unknown) Limitations: no (units (unknown) date) limitations unknown) (unknown) (no (unknown) (unknown) Lipase (23-300) (units (unknown) date) U/L unknown) (unknown) (no (unknown) (unknown) Lipase 96 (units (unkn own) date) (23-300) U/L unknown) (unknown) (no (unknown) (unknown) Lipase Stat (units (un known) date) unknown) (unknown) (no (unknown) (unknown) Lymph # (Auto) (units (unknown) date) (7793-2755) /uL unknown) (unknown) (no (unknown) (unknown) Lymph # (Auto) (units (unknown) date) 1300 (1370-1589) unknown) /uL (unknown) (no (unknown) (unknown) Lymph % (Auto) (units (unknown) date) (25-40) % unknown) (unknown) (no (unknown) (unknown) Lymph % (Auto) (units (unknown) date) 20.9 L (25-40) % unknown) (unknown) (no (unknown) (unknown) MCH (26-34) PG (units (unknown) date) unknown) (unknown) (no (unknown) (unknown) MCH 32.4 (26-34) (units (unknown) date) PG unknown) (unknown) (no (unknown) (unknown) MCHC (30-36) % (units (unknown) date) unknown) (unknown) (no (unknown) (unknown) MCHC 35.0 (30-36) (units (unknown) date) % unknown) (unknown) (no (unknown) (unknown) MCV (80-100) fL (units (unknown) date) unknown) (unknown) (no (unknown) (unknown) MCV 92.6 (80-100) (units (unknown) date) fL unknown) (unknown) (no (unknown) (unknown) MDM - (units (unkno wn) date) Nausea/Vomiting/Di unknown) arrhea (unknown) (no (unknown) (unknown) MDM Narrative (units ( unknown) date) unknown) (unknown) (no (unknown) (unknown) 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 (unknown) (no (unknown) (unknown) MSCL: Non-tender, (units (unknown) date) no muscle atrophy, unknown) muscles strength 5/5 upper and lower (unknown) (no (unknown) (unknown) Marijuana use, (units (unknown) date) continuous unknown) (unknown) (no (unknown) (unknown) Medical History (units (unknown) date) (Reviewed 04/13/22 unknown) @ 09:52 by Mine Harrington DO) (unknown) (no (unknown) (unknown) Medical decision (units (unknown) date) making narrative: unknown) (unknown) (no (unknown) (unknown) Centre # (Auto) (units ( unknown) date) (0-900) /uL unknown) (unknown) (no (unknown) (unknown) Centre # (Auto) 500 (units (unknown) date) (0-900) /uL unknown) (unknown) (no (unknown) (unknown) Centre % (Auto) (units ( unknown) date) (3-14) % unknown) (unknown) (no (unknown) (unknown) Centre % (Auto) 8.7 (units (unknown) date) (3-14) % unknown) (unknown) (no (unknown) (unknown) Mother Diabetes (units (unknown) date) mellitus unknown) (unknown) (no (unknown) (unknown) NEURO:CN 2-12 (units ( unknown) date) intact, sensation unknown) normall (unknown) (no (unknown) (unknown) Narrative (units (unkn own) date) unknown) (unknown) (no (unknown) (unknown) Neut # (Auto) (units ( unknown) date) (3102-5141) /uL unknown) (unknown) (no (unknown) (unknown) Neut # (Auto) (units ( unknown) date) 4300 (4431-9292) unknown) /uL (unknown) (no (unknown) (unknown) Neut % (Auto) (units ( unknown) date) (50-75) % unknown) (unknown) (no (unknown) (unknown) Neut % (Auto) (units ( unknown) date) 69.8 (50-75) % unknown) (unknown) (no (unknown) (unknown) No Action (units (unkn own) date) unknown) (unknown) (no (unknown) (unknown) Ordered: (units (unkno wn) date) unknown) (unknown) (no (unknown) (unknown) Orders (units (unkno wn) date) unknown) (unknown) (no (unknown) (unknown) Other Colon (units (un known) date) cancer unknown) (unknown) (no (unknown) (unknown) Oxygen Delivery (units (unknown) date) Method 04/13/22 unknown) 09:33 (unknown) (no (unknown) (unknown) Oxygen Delivery (units (unknown) date) Method Room Air unknown) Room Air (unknown) (no (unknown) (unknown) POTASSIUM (units (unkn own) date) CHLORIDE IN WATER unknown) (Potassium Cl 10 Meq/100 Ml Lidia) 10 meq in 100 mls (unknown) (no (unknown) (unknown) Pancreatitis (units (u nknown) date) unknown) (unknown) (no (unknown) (unknown) Patient History (units (unknown) date) unknown) (unknown) (no (unknown) (unknown) Patient is (units (unk nown) date) sleeping after unknown) medications. She is hypokalemic, she is acute kidney (unknown) (no (unknown) (unknown) Patient presents (units (unknown) date) with complaint of unknown) abdominal pain and vomiting consistent with (unknown) (no (unknown) (unknown) Patient: (units (unkno wn) date) Dameon Castro MR#: unknown) [id number] (unknown) (no (unknown) (unknown) Potassium (units (unkn own) date) (3.4-5.1) mmol/L unknown) (unknown) (no (unknown) (unknown) Potassium 2.7 L* (units (unknown) date) (3.4-5.1) mmol/L unknown) (unknown) (no (unknown) (unknown) Prescriptions: (units (unknown) date) unknown) (unknown) (no (unknown) (unknown) Pulse Oximetry 98 (units (unknown) date) 04/13/22 09:33 unknown) (unknown) (no (unknown) (unknown) Pulse Oximetry 98 (units (unknown) date) 100 unknown) (unknown) (no (unknown) (unknown) Pulse Rate 90 (units ( unknown) date) 04/13/22 09:33 unknown) (unknown) (no (unknown) (unknown) Pulse Rate 90 98 (units (unknown) date) H unknown) (unknown) (no (unknown) (unknown) RDW (11.6-14.8) % (units (unknown) date) unknown) (unknown) (no (unknown) (unknown) RDW 13.8 (units (unkno wn) date) (11.6-14.8) % unknown) (unknown) (no (unknown) (unknown) ROS Unobtainable: (units (unknown) date) All systems unknown) reviewed + are unremarkable except as noted in HPI (unknown) (no (unknown) (unknown) Reevaluation #1: (units (unknown) date) unknown) (unknown) (no (unknown) (unknown) Reevaluation(s) (units (unknown) date) unknown) (unknown) (no (unknown) (unknown) Referrals: (units (unk nown) date) unknown) (unknown) (no (unknown) (unknown) Related Data (units (u nknown) date) unknown) (unknown) (no (unknown) (unknown) Respiratory Rate (units (unknown) date) 16 04/13/22 09:33 unknown) (unknown) (no (unknown) (unknown) Respiratory Rate (units (unknown) date) 16 unknown) (unknown) (no (unknown) (unknown) Result diagrams: (units (unknown) date) unknown) (unknown) (no (unknown) (unknown) Review of Systems (units (unknown) date) unknown) (unknown) (no (unknown) (unknown) SARS-CoV-2 (PCR) (units (unknown) date) (Negative) unknown) (unknown) (no (unknown) (unknown) SARS-CoV-2 (PCR) (units (unknown) date) Negative unknown) (Negative) (unknown) (no (unknown) (unknown) SKIN: No rash, (units (unknown) date) erythema or other unknown) skin changes noted. (unknown) (no (unknown) (unknown) Signed By: (units (unk nown) date) unknown) (unknown) (no (unknown) (unknown) Sinus rhythm rate (units (unknown) date) of 70 6p are 146 unknown) QRS 86 and QTC 479. Left ventricular (unknown) (no (unknown) (unknown) Smoking Status: (units (unknown) date) Current every day unknown) smoker (unknown) (no (unknown) (unknown) Smoking Status: (units (unknown) date) Current every day unknown) smoker (unknown) (no (unknown) (unknown) Social History (units (unknown) date) (Reviewed 04/13/22 unknown) @ 09:52 by Mine Harrington DO) (unknown) (no (unknown) (unknown) Sodium (137-145) (units (unknown) date) mmol/L unknown) (unknown) (no (unknown) (unknown) Sodium 138 (units (unk nown) date) (137-145) mmol/L unknown) (unknown) (no (unknown) (unknown) Sodium Chloride (units (unknown) date) (Normal Saline unknown) 0.9%) 1,000 mls @ 1,000 mls/hr IV BOLUS ONE (unknown) (no (unknown) (unknown) Source: patient (units (unknown) date) and old records unknown) reviewed (unknown) (no (unknown) (unknown) Stated complaint: (units (unknown) date) cyclical vomiting unknown) (unknown) (no (unknown) (unknown) States her pain (units (unknown) date) is typical of her unknown) past episodes. Patient states she is been (unknown) (no (unknown) (unknown) Substance Use (units ( unknown) date) Type: marijuana unknown) (unknown) (no (unknown) (unknown) Surgical History (units (unknown) date) (Reviewed 04/13/22 unknown) @ 09:52 by Mine Harrington DO) (unknown) (no (unknown) (unknown) Temperature 98.0 (units (unknown) date) F 04/13/22 09:33 unknown) (unknown) (no (unknown) (unknown) Temperature 98.0 (units (unknown) date) F unknown) (unknown) (no (unknown) (unknown) This is a (units (unkn own) date) 46-year-old female unknown) with history of cyclic vomiting, polysubstance (unknown) (no (unknown) (unknown) Time Seen by (units (u nknown) date) Provider: 04/13/22 unknown) 09:27 (unknown) (no (unknown) (unknown) Time: 10:45 (units (un known) date) unknown) (unknown) (no (unknown) (unknown) Total Bilirubin (units (unknown) date) (0.2-1.3) mg/dL unknown) (unknown) (no (unknown) (unknown) Total Bilirubin (units (unknown) date) 1.4 H (0.2-1.3) unknown) mg/dL (unknown) (no (unknown) (unknown) Total Protein (units ( unknown) date) (6.3-8.2) g/dL unknown) (unknown) (no (unknown) (unknown) Total Protein (units ( unknown) date) 10.5 H (6.3-8.2) unknown) g/dL (unknown) (no (unknown) (unknown) Urine Drug (units (unk nown) date) Screen, Rapid Stat unknown) (unknown) (no (unknown) (unknown) VBG [Venous Blood (units (unknown) date) Gas] Stat unknown) (unknown) (no (unknown) (unknown) Vital Signs (units (un known) date) unknown) (unknown) (no (unknown) (unknown) Vital signs: (units (u nknown) date) unknown) (unknown) (no (unknown) (unknown) [Embedded Image (units (unknown) date) Not Available] unknown) (unknown) (no (unknown) (unknown) [METOCLOPRAMIDE] (units (unknown) date) unknown) (unknown) (no (unknown) (unknown) abuse, alcohol (units (unknown) date) use and unknown) angioedema. Patient presents with complaint of vomiting (unknown) (no (unknown) (unknown) alcohol intake (units (unknown) date) frequency: 3 or unknown) more drinks per day (unknown) (no (unknown) (unknown) alcohol intake: (units (unknown) date) current unknown) (unknown) (no (unknown) (unknown) allergies to (units (un known) date) Reglan, unknown) promethazine IV but can tolerate per rectum and latex. She (unknown) (no (unknown) (unknown) amlodipine 5 mg (units (unknown) date) tablet 5 mg PO unknown) DAILY 03/20/22 03/20/22 (unknown) (no (unknown) (unknown) angioedema (units (unkn own) date) although she is unknown) had 2 episodes with her oropharynx on her past visits (unknown) (no (unknown) (unknown) based on this (units ( unknown) date) imaging was unknown) obtained. Plan to continue with hydration, repeat (unknown) (no (unknown) (unknown) bleeding or (units (un known) date) discharge. Patient unknown) states she has not been able to keep down her (unknown) (no (unknown) (unknown) bloody stools. (units (unknown) date) She states no unknown) dysuria, urgency or frequency. No vaginal (unknown) (no (unknown) (unknown) bupropion HCl 100 (units (unknown) date) mg tablet,12 hr unknown) 100 mg PO DAILY 03/20/22 03/20/22 (unknown) (no (unknown) (unknown) cream (units (unkno wn) date) unknown) (unknown) (no (unknown) (unknown) distress. (units (unkn own) date) unknown) (unknown) (no (unknown) (unknown) does use tobacco, (units (unknown) date) states she drinks unknown) 3-5 alcoholic drinks daily and states she (unknown) (no (unknown) (unknown) electrolytes, (units ( unknown) date) renal function unknown) were obtained. Fluids, Haldol and Benadryl as (unknown) (no (unknown) (unknown) erythema, (units (unkno wn) date) tonsillar unknown) enlargement or uvular deviation, no obvious swelling of lips (unknown) (no (unknown) (unknown) extremities, full (units (unknown) date) range of motion unknown) (unknown) (no (unknown) (unknown) fluconazole 200 (units (unknown) date) mg tablet 200 mg unknown) PO WEEKLY 4 weeks #4 tabs 03/21/22 (unknown) (no (unknown) (unknown) for the past 3 (units (unknown) date) days. 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 We (units (unknown) date) did discuss that unknown) she was noted to have angioedema on the last (unknown) (no (unknown) (unknown) hypertrophy, (units (u nknown) date) diffuse ST unknown) depression. (unknown) (no (unknown) (unknown) injury again (units (u nknown) date) today and her unknown) lactate is 9. Patient's exam was reassuring but (unknown) (no (unknown) (unknown) is comfortable (units (unknown) date) with this and not unknown) receiving more radiation. Labs including (unknown) (no (unknown) (unknown) lactate and (units (un known) date) replacement of unknown) potassium IV with equal for admission. (unknown) (no (unknown) (unknown) last cocaine use (units (unknown) date) but does not think unknown) it was recently. She is accompanied by her (unknown) (no (unknown) (unknown) latex [LATEX] (units ( unknown) date) Allergy Unknown unknown) Verified 04/13/22 09:42 (unknown) (no (unknown) (unknown) lorazepam 0.5 mg (units (unknown) date) tablet (Ativan) unknown) 0.5 mg PO DAILY PRN nausea and 11/03/21 (unknown) (no (unknown) (unknown) metoclopramide (units (unknown) date) AdvReac Unknown unknown) DYSTONIA Verified 04/13/22 09:42 (unknown) (no (unknown) (unknown) miconazole (units (unk nown) date) nitrate 2 % unknown) topical 1 applic topical BID #30 grams 03/21/22 (unknown) (no (unknown) (unknown) morning which was (units (unknown) date) not helpful. unknown) Patient states no surgeries. She does have (unknown) (no (unknown) (unknown) movements are (units ( unknown) date) intact, nares are unknown) clear, Throat is clear without any exudates, (unknown) (no (unknown) (unknown) once after at (units ( unknown) date) least 2 hours unknown) (unknown) (no (unknown) (unknown) ondansetron 4 mg (units (unknown) date) disintegrating 4 unknown) mg PO Q8H PRN nausea and 07/28/19 (unknown) (no (unknown) (unknown) ondansetron 8 mg (units (unknown) date) disintegrating 8 unknown) mg PO TID PRN Nausea 09/18/19 03/20/22 (unknown) (no (unknown) (unknown) patient has often (units (unknown) date) responded well to unknown) these. (unknown) (no (unknown) (unknown) potassium (units (unkn own) date) chloride 20 mEq 20 unknown) meq PO DAILY #30 tabs 03/21/22 (unknown) (no (unknown) (unknown) promethazine (units (u nknown) date) [PROMETHAZINE] unknown) Allergy Mild ERYTHEMA Verified 04/13/22 09:42 (unknown) (no (unknown) (unknown) rigidity, no (units (u nknown) date) masses noted, no unknown) hepatosplenomegaly , no distention. No bruit. (unknown) (no (unknown) (unknown) spray headache #1 (units (unknown) date) ea unknown) (unknown) (no (unknown) (unknown) stooling (units (unkno wn) date) regularly with no unknown) diarrhea or constipation and denies any black or (unknown) (no (unknown) (unknown) sumatriptan 5 (units ( unknown) date) mg/actuation nasal unknown) 5 mg intranasal Q2-4H PRN migraine 06/04/21 (unknown) (no (unknown) (unknown) sustained-release (units (unknown) date) unknown) (unknown) (no (unknown) (unknown) symmetrically, no (units (unknown) date) tachypnea unknown) accessory muscle use. (unknown) (no (unknown) (unknown) tablet (units (unkno wn) date) unknown) (unknown) (no (unknown) (unknown) tablet vomiting (units (unknown) date) #10 tabs unknown) (unknown) (no (unknown) (unknown) tablet,extended (units (unknown) date) release unknown) (unknown) (no (unknown) (unknown) tobacco type: (units ( unknown) date) vaping unknown) (unknown) (no (unknown) (unknown) use cocaine (units (un known) date) intermittently. unknown) She is not currently having any symptoms of (unknown) (no (unknown) (unknown) uses THC (units (unkno wn) date) intermittently as unknown) well as cocaine. Patient states she is unsure of her (unknown) (no (unknown) (unknown) vaccination. She (units (unknown) date) had testing sent unknown) for hereditary angioedema but does not know (unknown) (no (unknown) (unknown) vomiting episodes (units (unknown) date) in the past. She unknown) denies fevers. She states she is been (unknown) (no (unknown) (unknown) vomiting up (units (un known) date) everything she unknown) tries to put in her stomach, denies any hemoptysis. (unknown) (no (unknown) (unknown) what the results (units (unknown) date) of those were. unknown) (unknown) (no (unknown) (unknown) work was reviewed (units (unknown) date) complement testing unknown) was sent. Patient states symptoms are very Result panel 60 (unknown) (no date) (unknown) (unknown) 22.0 mmol/L (unkn own) (unknown) (no date) (unknown) (unknown) 40.7 mmHg (unkn own) (unknown) (no date) (unknown) (unknown) 43 mmol/L (unkn own) (unknown) (no date) (unknown) (unknown) 44 mmol/L (unkn own) (unknown) (no date) (unknown) (unknown) 7.63 (units unknown) (unknown) (unknown) (no date) (unknown) (unknown) 79 mmHg (unkn own) (unknown) (no date) (unknown) (unknown) 97 % (unkn own) Result panel 61 (unknown) (no (unknown) (unknown) (no value) (units (unk nown) date) unknown) (unknown) (no (unknown) (unknown) Radiologist's (units ( unknown) date) Impression: unknown) (unknown) (no (unknown) (unknown) Date of Service: (units (unknown) date) 04/13/22 unknown) (unknown) (no (unknown) (unknown) (no value) (units (unk nown) date) unknown) (unknown) (no (unknown) (unknown) 0.5 mg PO DAILY (units (unknown) date) PRN (Reason: unknown) nausea and vomiting) Qty: 10 0RF (unknown) (no (unknown) (unknown) 04/13/22 09:20 (units (unknown) date) unknown) (unknown) (no (unknown) (unknown) 1 applic topical (units (unknown) date) BID Qty: 30 0RF unknown) (unknown) (no (unknown) (unknown) 100 mg PO DAILY (units (unknown) date) unknown) (unknown) (no (unknown) (unknown) [address] [place] [address] (units (unknown) date) unknown) (unknown) (no (unknown) (unknown) 20 meq PO DAILY (units (unknown) date) Qty: 30 0RF unknown) (unknown) (no (unknown) (unknown) 200 mg PO WEEKLY (units (unknown) date) 28 Days Qty: 4 0RF unknown) (unknown) (no (unknown) (unknown) 4 mg PO Q8H PRN (units (unknown) date) (Reason: nausea unknown) and vomiting) Qty: 10 0RF (unknown) (no (unknown) (unknown) 5 mg PO DAILY (units ( unknown) date) unknown) (unknown) (no (unknown) (unknown) 5 mg intranasal (units (unknown) date) Q2-4H PRN (Reason: unknown) migraine headache) Qty: 1 0RF (unknown) (no (unknown) (unknown) 8 mg PO TID PRN (units (unknown) date) (Reason: Nausea) unknown) (unknown) (no (unknown) (unknown) ABLE TO (units (unkno wn) date) unknown) (unknown) (no (unknown) (unknown) Admin: 04/13/22 (units (unknown) date) 10:12 Dose: 100 unknown) mls/hr (unknown) (no (unknown) (unknown) Allergies (units (unkn own) date) unknown) (unknown) (no (unknown) (unknown) FABIOLA [place] (units ( unknown) date) [id number] unknown) (unknown) (no (unknown) (unknown) Apply 1 gram of (units (unknown) date) cream to rash unknown) twice daily until rash resolves up to 4 weeks. (unknown) (no (unknown) (unknown) CT Scan Report (units (unknown) date) unknown) (unknown) (no (unknown) (unknown) Close (units (unkno wn) date) unknown) (unknown) (no (unknown) (unknown) Documented By: (units (unknown) date) [facility] unknown) (unknown) (no (unknown) (unknown) Documented By: KF (units (unknown) date) unknown) (unknown) (no (unknown) (unknown) Documented By: (units (unknown) date) [facility]LS unknown) (unknown) (no (unknown) (unknown) ED Orders (units (unkn own) date) unknown) (unknown) (no (unknown) (unknown) Emergency Report (units (unknown) date) unknown) (unknown) (no (unknown) (unknown) Home Medications (units (unknown) date) unknown) (unknown) (no (unknown) (unknown) Infusion: (units (unkn own) date) 04/13/22 11:12 unknown) Dose: 100 mls/hr (unknown) (no (unknown) (unknown) [facility] (units (unknown) date) unknown) (unknown) (no (unknown) (unknown) [facility] (units (unknown) date) [address] unknown) [place]ABIOLA [place] [id number] (unknown) (no (unknown) (unknown) Lab Results (units (un known) date) unknown) (unknown) (no (unknown) (unknown) Label Comments: (units (unknown) date) unknown) (unknown) (no (unknown) (unknown) Last Admin: (units (un known) date) 04/13/22 09:58 unknown) Dose: 1,000 mls/hr (unknown) (no (unknown) (unknown) Last Admin: (units (un known) date) 04/13/22 09:59 unknown) Dose: 25 mg (unknown) (no (unknown) (unknown) Last Admin: (units (un known) date) 04/13/22 09:59 unknown) Dose: 5 mg (unknown) (no (unknown) (unknown) Last Admin: (units (un known) date) 04/13/22 11:19 unknown) Dose: 100 mls/hr (unknown) (no (unknown) (unknown) Launch?Image (units (u nknown) date) unknown) (unknown) (no (unknown) (unknown) PT STATES (units (unkn own) date) unknown) (unknown) (no (unknown) (unknown) Previous Rx's (units ( unknown) date) unknown) (unknown) (no (unknown) (unknown) Rx Instructions: (units (unknown) date) unknown) (unknown) (no (unknown) (unknown) Signed (units (unkno wn) date) unknown) (unknown) (no (unknown) (unknown) Stop: 04/13/22 (units (unknown) date) 09:48 unknown) (unknown) (no (unknown) (unknown) Stop: 04/13/22 (units (unknown) date) 10:46 unknown) (unknown) (no (unknown) (unknown) Stop: 04/13/22 (units (unknown) date) 11:39 unknown) (unknown) (no (unknown) (unknown) Stop: 04/13/22 (units (unknown) date) 14:14 unknown) (unknown) (no (unknown) (unknown) Stop: 04/13/22 (units (unknown) date) 14:44 unknown) (unknown) (no (unknown) (unknown) TAKE [facility] (units (unkno wn) date) unknown) (unknown) (no (unknown) (unknown) TO IV SITE (units (unk nown) date) unknown) (unknown) (no (unknown) (unknown) Vital Signs - 8 (units (unknown) date) hr unknown) (unknown) (no (unknown) (unknown) dissolve 1 tablet (units (unknown) date) by mouth up to unknown) three times a day (unknown) (no (unknown) (unknown) into each nostril (units (unknown) date) once; if abdominal unknown) migraine remains, may repeat total dose (unknown) (no (unknown) (unknown) take 1 tablet by (units (unknown) date) mouth once daily unknown) (unknown) (no (unknown) (unknown) take 1 tablet (units ( unknown) date) once weekly until unknown) rash resolves up to 4 weeks (unknown) (no (unknown) (unknown) (no value) (units (unk nown) date) unknown) (unknown) (no (unknown) (unknown) 04/13/22 04/13/22 (units (unknown) date) 04/13/22 unknown) Range/Units (unknown) (no (unknown) (unknown) 09:20 09:20 09:40 (units (unknown) date) unknown) (unknown) (no (unknown) (unknown) 09:40 09:55 11:01 (units (unknown) date) unknown) (unknown) (no (unknown) (unknown) amlodipine 5 mg (units (unknown) date) tablet unknown) (unknown) (no (unknown) (unknown) bupropion HCl 100 (units (unknown) date) mg tablet unknown) sustained-release 12 hr (unknown) (no (unknown) (unknown) fluconazole 200 (units (unknown) date) mg tablet unknown) (unknown) (no (unknown) (unknown) lorazepam (units (unkn own) date) [Ativan] 0.5 mg unknown) tablet (unknown) (no (unknown) (unknown) miconazole (units (unk nown) date) nitrate 2 % cream unknown) (unknown) (no (unknown) (unknown) ondansetron 4 mg (units (unknown) date) tablet,disintegrat unknown) ing (unknown) (no (unknown) (unknown) ondansetron 8 mg (units (unknown) date) tablet,disintegrat unknown) ing (unknown) (no (unknown) (unknown) potassium (units (unkn own) date) chloride 20 mEq unknown) tablet extended release (unknown) (no (unknown) (unknown) sumatriptan 5 (units ( unknown) date) mg/actuation unknown) spray,non-aerosol (unknown) (no (unknown) (unknown) 04/13/22 (units (unkno wn) date) unknown) (unknown) (no (unknown) (unknown) Acute (units (unkno wn) date) hypokalemia, Acute unknown) kidney injury (unknown) (no (unknown) (unknown) Medication (units (unk nown) date) Instructions unknown) Recorded (unknown) (no (unknown) (unknown) Medication (units (unk nown) date) Instructions unknown) Recorded Confirmed (unknown) (no (unknown) (unknown) and below (units (unkn own) date) unknown) (unknown) (no (unknown) (unknown) in October and (units (u nknown) date) during her unknown) hospital stay the beginning of March. Patient's lab (unknown) (no (unknown) (unknown) or tongue on (units (u nknown) date) examination. unknown) (unknown) (no (unknown) (unknown) typical of her (units (unknown) date) prior unknown) exacerbations so imaging was deferred patient states she (unknown) (no (unknown) (unknown) vomiting #10 tabs (units (unknown) date) unknown) (unknown) (no (unknown) (unknown) - (units (unkno wn) date) unknown) (unknown) (no (unknown) (unknown) 04/13/22 (units (unkno wn) date) unknown) (unknown) (no (unknown) (unknown) 04/13/22 09:20 (units (unknown) date) unknown) (unknown) (no (unknown) (unknown) 04/13/22 09:36 (units (unknown) date) unknown) (unknown) (no (unknown) (unknown) 04/13/22 09:40 (units (unknown) date) unknown) (unknown) (no (unknown) (unknown) 04/13/22 09:46 (units (unknown) date) unknown) (unknown) (no (unknown) (unknown) 04/13/22 09:55 (units (unknown) date) unknown) (unknown) (no (unknown) (unknown) 04/13/22 10:40 (units (unknown) date) unknown) (unknown) (no (unknown) (unknown) 04/13/22 11:01 (units (unknown) date) unknown) (unknown) (no (unknown) (unknown) 04/13/22 11:40 (units (unknown) date) unknown) (unknown) (no (unknown) (unknown) 09:33 04/13/22 (units (unknown) date) unknown) (unknown) (no (unknown) (unknown) 09:36 04/13/22 (units (unknown) date) unknown) (unknown) (no (unknown) (unknown) 10:18 (units (unkno wn) date) unknown) (unknown) (no (unknown) (unknown) 10:30 04/13/22 (units (unknown) date) unknown) (unknown) (no (unknown) (unknown) 11:00 (units (unkno wn) date) unknown) (unknown) (no (unknown) (unknown) 2 visits of her (units (unknown) date) tongue. Patient unknown) states she was told that this is from her COVID (unknown) (no (unknown) (unknown) [id number] (units (unkno wn) date) unknown) (unknown) (no (unknown) (unknown) ? (units (unkno wn) date) unknown) (unknown) (no (unknown) (unknown) ?measuring 2.4 (units ( unknown) date) centimeters unknown) COMPARISON:[facility], CT, ABDOMEN/PELVIS WITH (unknown) (no (unknown) (unknown) @ 100 mls/hr IV (units (unknown) date) Q1H KIRIT unknown) (unknown) (no (unknown) (unknown) ABD:bowel sounds (units (unknown) date) normal, soft, unknown) mildly tender generalized, no guarding, rebound, (unknown) (no (unknown) (unknown) ABDOMEN: (units (unkno wn) date) unknown) (unknown) (no (unknown) (unknown) ALT (<35) IU/L (units (unknown) date) unknown) (unknown) (no (unknown) (unknown) ALT 35 H (<35) (units (unknown) date) IU/L unknown) (unknown) (no (unknown) (unknown) AST (14-36) IU/L (units (unknown) date) unknown) (unknown) (no (unknown) (unknown) AST 36 (14-36) (units (unknown) date) IU/L unknown) (unknown) (no (unknown) (unknown) Abdomen/Pelvis CT (units (unknown) date) (Signed) unknown) (unknown) (no (unknown) (unknown) Abdominal Nodes:? (units (unknown) date) No retroperitoneal unknown) or mesenteric adenopathy by size criteria.? (unknown) (no (unknown) (unknown) Abscess (units (unkno wn) date) unknown) (unknown) (no (unknown) (unknown) Accession Number: (units (unknown) date) [id number] ?? unknown) (unknown) (no (unknown) (unknown) Acct:[id number] (units (unknown) date) unknown) (unknown) (no (unknown) (unknown) Adrenal Glands:? (units (unknown) date) Unremarkable.? ? unknown) (unknown) (no (unknown) (unknown) After the (units (unkn own) date) administration of unknown) intravenous contrast, axial sections acquired from (unknown) (no (unknown) (unknown) Age/Sex: 46 / F (units (unknown) date) unknown) (unknown) (no (unknown) (unknown) Age/Sex: 46 / F (units (unknown) date) unknown) (unknown) (no (unknown) (unknown) Albumin (3.5-5.0) (units (unknown) date) g/dL unknown) (unknown) (no (unknown) (unknown) Albumin 5.6 H (units ( unknown) date) (3.5-5.0) g/dL unknown) (unknown) (no (unknown) (unknown) Albumin/Globulin (units (unknown) date) Ratio (1.0-2.8) unknown) (unknown) (no (unknown) (unknown) Albumin/Globulin (units (unknown) date) Ratio 1.1 unknown) (1.0-2.8) (unknown) (no (unknown) (unknown) Alcohol type: (units ( unknown) date) wine unknown) (unknown) (no (unknown) (unknown) Alkaline (units (unkno wn) date) Phosphatase unknown) (38-126) U/L (unknown) (no (unknown) (unknown) Alkaline (units (unkno wn) date) Phosphatase 96 unknown) (38-126) U/L (unknown) (no (unknown) (unknown) Allergy/AdvReac (units (unknown) date) Type Severity unknown) Reaction Status Date / Time (unknown) (no (unknown) (unknown) Approved by: (units (u nknown) date) Bobby Oropeza M.D. unknown) on 04/13/2022 at 11:23?? (unknown) (no (unknown) (unknown) Attestation: I (units (unknown) date) personally unknown) reviewed and interpreted this ECG as follows: (unknown) (no (unknown) (unknown) BUN (7-17) mg/dL (units (unknown) date) unknown) (unknown) (no (unknown) (unknown) BUN 31 H (7-17) (units (unknown) date) mg/dL unknown) (unknown) (no (unknown) (unknown) BUN/Creatinine (units (unknown) date) Ratio (6-22) unknown) (unknown) (no (unknown) (unknown) BUN/Creatinine (units (unknown) date) Ratio 18.0 (6-22) unknown) (unknown) (no (unknown) (unknown) Baso # (Auto) (units ( unknown) date) (0-100) /uL unknown) (unknown) (no (unknown) (unknown) Baso # (Auto) 0 (units (unknown) date) (0-100) /uL unknown) (unknown) (no (unknown) (unknown) Baso % (Auto) (units ( unknown) date) (0-2) % unknown) (unknown) (no (unknown) (unknown) Baso % (Auto) 0.5 (units (unknown) date) (0-2) % unknown) (unknown) (no (unknown) (unknown) Biliary ducts:? (units (unknown) date) Mild dilatation of unknown) the intrahepatic and extrahepatic biliary (unknown) (no (unknown) (unknown) Blood Culture (units ( unknown) date) Stat unknown) (unknown) (no (unknown) (unknown) Blood Pressure (units (unknown) date) unknown) (unknown) (no (unknown) (unknown) Blood Pressure (units (unknown) date) 151/93 H 04/13/22 unknown) 09:33 (unknown) (no (unknown) (unknown) Blood Pressure (units (unknown) date) 116/82 126/80 unknown) (unknown) (no (unknown) (unknown) Blood Pressure (units (unknown) date) 151/93 H 151/93 H unknown) (unknown) (no (unknown) (unknown) Bones:? (units (unkno wn) date) Unremarkable.? ? unknown) (unknown) (no (unknown) (unknown) CONTRAST, (units (unkn own) date) 08/16/2014, 1:04. unknown) (unknown) (no (unknown) (unknown) COVID19 -Nasal (units (unknown) date) RAPID/Pre-Proc unknown) Stat (unknown) (no (unknown) (unknown) CT abdomen pelvis (units (unknown) date) w con Stat unknown) (unknown) (no (unknown) (unknown) CT scan - (units (unkn own) date) abdomen/pelvis: unknown) (unknown) (no (unknown) (unknown) Calcium (units (unkno wn) date) (8.4-10.2) mg/dL unknown) (unknown) (no (unknown) (unknown) Calcium 10.4 H (units (unknown) date) (8.4-10.2) mg/dL unknown) (unknown) (no (unknown) (unknown) Carbon Dioxide (units (unknown) date) (22-32) mmol/L unknown) (unknown) (no (unknown) (unknown) Carbon Dioxide 32 (units (unknown) date) (22-32) mmol/L unknown) (unknown) (no (unknown) (unknown) Chief complaint: (units (unknown) date) Abdominal Pain unknown) (unknown) (no (unknown) (unknown) Chloride (98-107) (units (unknown) date) mmol/L unknown) (unknown) (no (unknown) (unknown) Chloride 82 L (units ( unknown) date) (98-107) mmol/L unknown) (unknown) (no (unknown) (unknown) Cholecystectomy.? (units (unknown) date) unknown) (unknown) (no (unknown) (unknown) Chronic abdominal (units (unknown) date) pain unknown) (unknown) (no (unknown) (unknown) Clinical (units (unkno wn) date) Impression: unknown) (unknown) (no (unknown) (unknown) Complete Blood (units (unknown) date) Count AUTO DIFF unknown) Stat (unknown) (no (unknown) (unknown) Comprehensive (units ( unknown) date) Metabolic Panel unknown) Stat (unknown) (no (unknown) (unknown) Course (units (unkno wn) date) unknown) (unknown) (no (unknown) (unknown) Creatinine (units (unk nown) date) (0.52-1.04) mg/dL unknown) (unknown) (no (unknown) (unknown) Creatinine 1.72 H (units (unknown) date) (0.52-1.04) mg/dL unknown) (unknown) (no (unknown) (unknown) Cyclic vomiting (units (unknown) date) syndrome unknown) (unknown) (no (unknown) (unknown) : 1975 (units (unknown) date) Acct:[id number] unknown) (unknown) (no (unknown) (unknown) : 1975 (units (unknown) date) unknown) (unknown) (no (unknown) (unknown) Date of Service: (units (unknown) date) 04/13/22 unknown) (unknown) (no (unknown) (unknown) Daughter (units (unkno wn) date) Angio-edema unknown) (unknown) (no (unknown) (unknown) July 2014 (units ( unknown) date) study. unknown) (unknown) (no (unknown) (unknown) Departure (units (unkn own) date) unknown) (unknown) (no (unknown) (unknown) Dictated by: (units (u nknown) date) Bobby Oropeza M.D. unknown) on 04/13/2022 at 11:19 ? ? (unknown) (no (unknown) (unknown) Diphenhydramine (units (unknown) date) HCl unknown) (Diphenhydramine 50 Mg/Ml Vial) 25 mg IV NOW ONE (unknown) (no (unknown) (unknown) Discharge Plan (units (unknown) date) unknown) (unknown) (no (unknown) (unknown) Discontinued (units (u nknown) date) Medications unknown) (unknown) (no (unknown) (unknown) ECG Data (units (unkno wn) date) unknown) (unknown) (no (unknown) (unknown) EKG-12 Lead Stat (units (unknown) date) unknown) (unknown) (no (unknown) (unknown) ER Physician: (units ( unknown) date) Mine Harrington D.O. unknown) (unknown) (no (unknown) (unknown) ETOH [Ethanol (units ( unknown) date) (ETOH)] Stat unknown) (unknown) (no (unknown) (unknown) Eos # (Auto) (units (u nknown) date) (0-450) /uL unknown) (unknown) (no (unknown) (unknown) Eos # (Auto) 0 (units (unknown) date) (0-450) /uL unknown) (unknown) (no (unknown) (unknown) Eos % (Auto) (units (u nknown) date) (2-4) % unknown) (unknown) (no (unknown) (unknown) Eos % (Auto) 0.1 (units (unknown) date) L (2-4) % unknown) (unknown) (no (unknown) (unknown) Estimated GFR (units ( unknown) date) (>60) mL/min unknown) (unknown) (no (unknown) (unknown) Estimated GFR 36 (units (unknown) date) L (>60) mL/min unknown) (unknown) (no (unknown) (unknown) Ethyl Alcohol ( - (units (unknown) date) 10) mg/dL unknown) (unknown) (no (unknown) (unknown) Ethyl Alcohol < (units (unknown) date) 10 ( - 10) mg/dL unknown) (unknown) (no (unknown) (unknown) Exam (units (unkno wn) date) unknown) (unknown) (no (unknown) (unknown) Exam Narrative: (units (unknown) date) unknown) (unknown) (no (unknown) (unknown) FINDINGS:? (units (unk nown) date) unknown) (unknown) (no (unknown) (unknown) Family History (units (unknown) date) (Reviewed 04/13/22 unknown) @ 09:52 by Mine Harrington DO) (unknown) (no (unknown) (unknown) Family history of (units (unknown) date) angioedema unknown) (unknown) (no (unknown) (unknown) Father (units (unkno wn) date) Hypertension unknown) (unknown) (no (unknown) (unknown) For (units (unkno wn) date) unknown) (unknown) (no (unknown) (unknown) GEN: Female, (units (u nknown) date) alert and oriented unknown) x 3, patient appears to be in moderate (unknown) (no (unknown) (unknown) :No CVA (units (unkn own) date) tenderness unknown) (unknown) (no (unknown) (unknown) Gallbladder:? (units ( unknown) date) Cholecystectomy.? unknown) ? (unknown) (no (unknown) (unknown) General (units (unkno wn) date) unknown) (unknown) (no (unknown) (unknown) GenericComposite[ (units (unknown) date) Plt Count unknown) (150-400) X10^3/uL ] (unknown) (no (unknown) (unknown) GenericComposite[ (units (unknown) date) Plt Count 284 unknown) (150-400) X10^3/uL ] (unknown) (no (unknown) (unknown) GenericComposite[ (units (unknown) date) RBC (4.0-5.2) unknown) X10^6/uL ] (unknown) (no (unknown) (unknown) GenericComposite[ (units (unknown) date) RBC 4.77 (4.0-5.2) unknown) X10^6/uL ] (unknown) (no (unknown) (unknown) GenericComposite[ (units (unknown) date) WBC (4.5-11.0) unknown) X10^3/uL ] (unknown) (no (unknown) (unknown) GenericComposite[ (units (unknown) date) WBC 6.2 (4.5-11.0) unknown) X10^3/uL ] (unknown) (no (unknown) (unknown) Globulin (units (unkno wn) date) (1.7-4.1) g/dL unknown) (unknown) (no (unknown) (unknown) Globulin 4.9 H (units (unknown) date) (1.7-4.1) g/dL unknown) (unknown) (no (unknown) (unknown) Glucose (70-100) (units (unknown) date) mg/dL unknown) (unknown) (no (unknown) (unknown) Glucose 134 H (units ( unknown) date) (70-100) mg/dL unknown) (unknown) (no (unknown) (unknown) HEART: Regular (units (unknown) date) rate and rhythm unknown) without murmur, clicks, rubs. (unknown) (no (unknown) (unknown) HEENT: (units (o wn) date) Atraumatic, pupils unknown) are equal round reactive to light, extraocular (unknown) (no (unknown) (unknown) HPI - (units (unkno wn) date) Nausea/Vomiting/Di unknown) arrhea (unknown) (no (unknown) (unknown) HPI Narrative: (units (unknown) date) unknown) (unknown) (no (unknown) (unknown) Haloperidol (units (un known) date) (Haloperidol 5 unknown) Mg/Ml Vial) 5 mg IV NOW ONE (unknown) (no (unknown) (unknown) Hct (36-46) % (units ( unknown) date) unknown) (unknown) (no (unknown) (unknown) Hct 44.2 (36-46) (units (unknown) date) % unknown) (unknown) (no (unknown) (unknown) Heart:? No (units (unk n) date) significant unknown) findings. (unknown) (no (unknown) (unknown) Hgb (12.0-16.0) (units (unknown) date) g/dL unknown) (unknown) (no (unknown) (unknown) Hgb 15.4 (units (unkno wn) date) (12.0-16.0) g/dL unknown) (unknown) (no (unknown) (unknown) History of (units (unk n) date) Present Illness unknown) (unknown) (no (unknown) (unknown) Hx of (units (o wn) date) appendectomy unknown) (unknown) (no (unknown) (unknown) Hx of (units (unkno wn) date) cholecystectomy unknown) (unknown) (no (unknown) (unknown) IMPRESSION:? (units (u nknown) date) unknown) (unknown) (no (unknown) (unknown) INDICATIONS:? (units ( unknown) date) vomiting/hx unknown) cyclic, elevated lactate (unknown) (no (unknown) (unknown) Image quality:? (units (unknown) date) Excellent.? unknown) (unknown) (no (unknown) (unknown) Imaging Data (units (u nknown) date) unknown) (unknown) (no (unknown) (unknown) Initial Vital (units ( unknown) date) Signs unknown) (unknown) (no (unknown) (unknown) Initial Vital (units ( unknown) date) Signs: unknown) (unknown) (no (unknown) (unknown) Interpretation: (units (unknown) date) unknown) (unknown) (no (unknown) (unknown) Sergo Martino MD (units (unknown) date) [Primary Care unknown) Provider] - (unknown) (no (unknown) (unknown) Ketones (<0.27) (units (unknown) date) mmol/L unknown) (unknown) (no (unknown) (unknown) Ketones 0.20 (units (u nknown) date) (<0.27) mmol/L unknown) (unknown) (no (unknown) (unknown) Ketones (units (unkno wn) date) (Beta-Hydroxybutyr unknown) ate) Stat (unknown) (no (unknown) (unknown) Kidneys and (units (un known) date) Ureters:? No unknown) urinary tract calculus or hydroureteronephro sis. (unknown) (no (unknown) (unknown) LUNGS:Lungs clear (units (unknown) date) to auscultation, unknown) no wheezes, rales, crackles, chest moves (unknown) (no (unknown) (unknown) Lab Data (units (unkno wn) date) unknown) (unknown) (no (unknown) (unknown) Labs: (units (unkno wn) date) unknown) (unknown) (no (unknown) (unknown) Lactate (0.7-2.1) (units (unknown) date) mmol/L unknown) (unknown) (no (unknown) (unknown) Lactate 9.7 H* (units (unknown) date) (0.7-2.1) mmol/L unknown) (unknown) (no (unknown) (unknown) Lactate (Lactic (units (unknown) date) Acid) Stat unknown) (unknown) (no (unknown) (unknown) Lactated Ringer's (units (unknown) date) (Lactated Ringers) unknown) 1,000 mls @ 1,000 mls/hr IV BOLUS ONE (unknown) (no (unknown) (unknown) Limitations: no (units (unknown) date) limitations unknown) (unknown) (no (unknown) (unknown) Lipase (23-300) (units (unknown) date) U/L unknown) (unknown) (no (unknown) (unknown) Lipase 96 (units (unkn own) date) (23-300) U/L unknown) (unknown) (no (unknown) (unknown) Lipase Stat (units (un known) date) unknown) (unknown) (no (unknown) (unknown) Liver:? (units (unkno wn) date) Unremarkable.? ? unknown) (unknown) (no (unknown) (unknown) Loc: ED (units (unkno wn) date) unknown) (unknown) (no (unknown) (unknown) Lung bases:? (units (u nknown) date) Unremarkable. unknown) (unknown) (no (unknown) (unknown) Lymph # (Auto) (units (unknown) date) (4617-6573) /uL unknown) (unknown) (no (unknown) (unknown) Lymph # (Auto) (units (unknown) date) 1300 (9395-7444) unknown) /uL (unknown) (no (unknown) (unknown) Lymph % (Auto) (units (unknown) date) (25-40) % unknown) (unknown) (no (unknown) (unknown) Lymph % (Auto) (units (unknown) date) 20.9 L (25-40) % unknown) (unknown) (no (unknown) (unknown) MCH (26-34) PG (units (unknown) date) unknown) (unknown) (no (unknown) (unknown) MCH 32.4 (26-34) (units (unknown) date) PG unknown) (unknown) (no (unknown) (unknown) MCHC (30-36) % (units (unknown) date) unknown) (unknown) (no (unknown) (unknown) MCHC 35.0 (30-36) (units (unknown) date) % unknown) (unknown) (no (unknown) (unknown) MCV (80-100) fL (units (unknown) date) unknown) (unknown) (no (unknown) (unknown) MCV 92.6 (80-100) (units (unknown) date) fL unknown) (unknown) (no (unknown) (unknown) MDM - (units (unkno wn) date) Nausea/Vomiting/Di unknown) arrhea (unknown) (no (unknown) (unknown) MDM Narrative (units ( unknown) date) unknown) (unknown) (no (unknown) (unknown) MR#: [id number] (units (unknown) date) unknown) (unknown) (no (unknown) (unknown) 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 (unknown) (no (unknown) (unknown) MSCL: Non-tender, (units (unknown) date) no muscle atrophy, unknown) muscles strength 5/5 upper and lower (unknown) (no (unknown) (unknown) Marijuana use, (units (unknown) date) continuous unknown) (unknown) (no (unknown) (unknown) Medical History (units (unknown) date) (Reviewed 04/13/22 unknown) @ 09:52 by Mine Harrington DO) (unknown) (no (unknown) (unknown) Medical decision (units (unknown) date) making narrative: unknown) (unknown) (no (unknown) (unknown) Miscellaneous: No (units (unknown) date) hernias are seen. unknown) ? ? (unknown) (no (unknown) (unknown) Centre # (Auto) (units ( unknown) date) (0-900) /uL unknown) (unknown) (no (unknown) (unknown) Centre # (Auto) 500 (units (unknown) date) (0-900) /uL unknown) (unknown) (no (unknown) (unknown) Centre % (Auto) (units ( unknown) date) (3-14) % unknown) (unknown) (no (unknown) (unknown) Centre % (Auto) 8.7 (units (unknown) date) (3-14) % unknown) (unknown) (no (unknown) (unknown) Mother Diabetes (units (unknown) date) mellitus unknown) (unknown) (no (unknown) (unknown) NEURO:CN 2-12 (units ( unknown) date) intact, sensation unknown) normall (unknown) (no (unknown) (unknown) Narrative (units (unkn own) date) unknown) (unknown) (no (unknown) (unknown) Neut # (Auto) (units ( unknown) date) (1347-8877) /uL unknown) (unknown) (no (unknown) (unknown) Neut # (Auto) (units ( unknown) date) 4300 (2063-5995) unknown) /uL (unknown) (no (unknown) (unknown) Neut % (Auto) (units ( unknown) date) (50-75) % unknown) (unknown) (no (unknown) (unknown) Neut % (Auto) (units ( unknown) date) 69.8 (50-75) % unknown) (unknown) (no (unknown) (unknown) No Action (units (unkn own) date) unknown) (unknown) (no (unknown) (unknown) No acute finding. (units (unknown) date) unknown) (unknown) (no (unknown) (unknown) Ordered: (units (unkno wn) date) unknown) (unknown) (no (unknown) (unknown) Ordering (units (unkno wn) date) Provider: unknown) Mine Harrington D.O. (unknown) (no (unknown) (unknown) Orders (units (unkno wn) date) unknown) (unknown) (no (unknown) (unknown) Other Colon (units (un known) date) cancer unknown) (unknown) (no (unknown) (unknown) Oxygen Delivery (units (unknown) date) Method unknown) (unknown) (no (unknown) (unknown) Oxygen Delivery (units (unknown) date) Method 04/13/22 unknown) 09:33 (unknown) (no (unknown) (unknown) Oxygen Delivery (units (unknown) date) Method unknown) (unknown) (no (unknown) (unknown) Oxygen Delivery (units (unknown) date) Method Room Air unknown) Room Air (unknown) (no (unknown) (unknown) PELVIS: (units (unkno wn) date) unknown) (unknown) (no (unknown) (unknown) POTASSIUM (units (unkn own) date) CHLORIDE IN WATER unknown) (Potassium Cl 10 Meq/100 Ml Lidia) 10 meq in 100 mls (unknown) (no (unknown) (unknown) PROCEDURE:? CT (units (unknown) date) ABDOMEN PELVIS W unknown) CON (unknown) (no (unknown) (unknown) Pancreas:? No (units ( unknown) date) pancreatic ductal unknown) dilatation.? 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 She is hypokalemic, she is acute kidney (unknown) (no (unknown) (unknown) Patient presents (units (unknown) date) with complaint of unknown) abdominal pain and vomiting consistent with (unknown) (no (unknown) (unknown) Patient: (units (unkno wn) date) Dameon Castro MR#: unknown) [id number] (unknown) (no (unknown) (unknown) Patient: (units (unkno wn) date) Dameon Castro unknown) (unknown) (no (unknown) (unknown) Pelvic Nodes: No (units (unknown) date) enlarged lymph unknown) nodes.? (unknown) (no (unknown) (unknown) Pelvic Organs:? (units (unknown) date) IUD noted.? No unknown) abnormal finding of the uterus or ovaries.? (unknown) (no (unknown) (unknown) Peritoneum:? No (units (unknown) date) abnormal unknown) intraperitoneal fluid.? No free air.? (unknown) (no (unknown) (unknown) Potassium (units (unkn own) date) (3.4-5.1) mmol/L unknown) (unknown) (no (unknown) (unknown) Potassium 2.7 L* (units (unknown) date) (3.4-5.1) mmol/L unknown) (unknown) (no (unknown) (unknown) Prescriptions: (units (unknown) date) unknown) (unknown) (no (unknown) (unknown) Procedure: CT (units ( unknown) date) abdomen pelvis w unknown) con (unknown) (no (unknown) (unknown) Pulse Oximetry 96 (units (unknown) date) unknown) (unknown) (no (unknown) (unknown) Pulse Oximetry 98 (units (unknown) date) 04/13/22 09:33 unknown) (unknown) (no (unknown) (unknown) Pulse Oximetry 95 (units (unknown) date) unknown) (unknown) (no (unknown) (unknown) Pulse Oximetry 98 (units (unknown) date) 100 96 unknown) (unknown) (no (unknown) (unknown) Pulse Rate 90 (units ( unknown) date) 04/13/22 09:33 unknown) (unknown) (no (unknown) (unknown) Pulse Rate 91 H (units (unknown) date) unknown) (unknown) (no (unknown) (unknown) Pulse Rate 79 (units ( unknown) date) unknown) (unknown) (no (unknown) (unknown) Pulse Rate 90 98 (units (unknown) date) H 89 unknown) (unknown) (no (unknown) (unknown) RDW (11.6-14.8) (units (unknown) date) % unknown) (unknown) (no (unknown) (unknown) RDW 13.8 (units (unkno wn) date) (11.6-14.8) % unknown) (unknown) (no (unknown) (unknown) ROS Unobtainable: (units (unknown) date) All systems unknown) reviewed + are unremarkable except as noted in HPI (unknown) (no (unknown) (unknown) Reevaluation #1: (units (unknown) date) unknown) (unknown) (no (unknown) (unknown) Reevaluation(s) (units (unknown) date) unknown) (unknown) (no (unknown) (unknown) Referrals: (units (unk nown) date) unknown) (unknown) (no (unknown) (unknown) Related Data (units (u nknown) date) unknown) (unknown) (no (unknown) (unknown) Respiratory Rate (units (unknown) date) unknown) (unknown) (no (unknown) (unknown) Respiratory Rate (units (unknown) date) 16 04/13/22 09:33 unknown) (unknown) (no (unknown) (unknown) Respiratory Rate (units (unknown) date) 16 unknown) (unknown) (no (unknown) (unknown) Respiratory Rate (units (unknown) date) 24 unknown) (unknown) (no (unknown) (unknown) Result diagrams: (units (unknown) date) unknown) (unknown) (no (unknown) (unknown) Review of Systems (units (unknown) date) unknown) (unknown) (no (unknown) (unknown) Bobby Oropeza (units (u nknown) date) unknown) (unknown) (no (unknown) (unknown) SARS-CoV-2 (PCR) (units (unknown) date) (Negative) unknown) (unknown) (no (unknown) (unknown) SARS-CoV-2 (PCR) (units (unknown) date) Negative unknown) (Negative) (unknown) (no (unknown) (unknown) SKIN: No rash, (units (unknown) date) erythema or other unknown) skin changes noted. (unknown) (no (unknown) (unknown) Signed By: (units (unk nown) date) unknown) (unknown) (no (unknown) (unknown) Sinus rhythm rate (units (unknown) date) of 76 VA 146 QRS unknown) 86 and QTC 479. Left ventricular (unknown) (no (unknown) (unknown) Smoking Status: (units (unknown) date) Current every day unknown) smoker (unknown) (no (unknown) (unknown) Smoking Status: (units (unknown) date) Current every day unknown) smoker (unknown) (no (unknown) (unknown) Social History (units (unknown) date) (Reviewed 04/13/22 unknown) @ 09:52 by Mine Harrington DO) (unknown) (no (unknown) (unknown) Sodium (137-145) (units (unknown) date) mmol/L unknown) (unknown) (no (unknown) (unknown) Sodium 138 (units (unk n) date) (137-145) mmol/L unknown) (unknown) (no (unknown) (unknown) Sodium Chloride (units (unknown) date) (Normal Saline unknown) 0.9%) 1,000 mls @ 1,000 mls/hr IV BOLUS ONE (unknown) (no (unknown) (unknown) Source: patient (units (unknown) date) and old records unknown) reviewed (unknown) (no (unknown) (unknown) Spleen:? Normal (units (unknown) date) size and unknown) appearance of the spleen. (unknown) (no (unknown) (unknown) Stated complaint: (units (unknown) date) cyclical vomiting unknown) (unknown) (no (unknown) (unknown) States her pain (units (unknown) date) is typical of her unknown) past episodes. Patient states she is been (unknown) (no (unknown) (unknown) Stomach and (units (un known) date) Bowel:? No unknown) abnormally dilated or thickened loop of bowel.? No (unknown) (no (unknown) (unknown) Substance Use (units ( unknown) date) Type: marijuana unknown) (unknown) (no (unknown) (unknown) Surgical History (units (unknown) date) (Reviewed 04/13/22 unknown) @ 09:52 by Mine Harrington DO) (unknown) (no (unknown) (unknown) TECHNIQUE:? (units (un known) date) unknown) (unknown) (no (unknown) (unknown) Temperature (units (un known) date) unknown) (unknown) (no (unknown) (unknown) Temperature (units (un known) date) unknown) (unknown) (no (unknown) (unknown) Temperature 98.0 (units (unknown) date) F 04/13/22 09:33 unknown) (unknown) (no (unknown) (unknown) Temperature 98.0 (units (unknown) date) F unknown) (unknown) (no (unknown) (unknown) This is a (units (unkn own) date) 46-year-old female unknown) with history of cyclic vomiting, polysubstance (unknown) (no (unknown) (unknown) Time Seen by (units (u nknown) date) Provider: 04/13/22 unknown) 09:27 (unknown) (no (unknown) (unknown) Time: 10:45 (units (un known) date) unknown) (unknown) (no (unknown) (unknown) Total Bilirubin (units (unknown) date) (0.2-1.3) mg/dL unknown) (unknown) (no (unknown) (unknown) Total Bilirubin (units (unknown) date) 1.4 H (0.2-1.3) unknown) mg/dL (unknown) (no (unknown) (unknown) Total Protein (units ( unknown) date) (6.3-8.2) g/dL unknown) (unknown) (no (unknown) (unknown) Total Protein (units ( unknown) date) 10.5 H (6.3-8.2) unknown) g/dL (unknown) (no (unknown) (unknown) Urinary (units (unkno wn) date) unknown) (unknown) (no (unknown) (unknown) Urine Drug (units (unk nown) date) Screen, Rapid Stat unknown) (unknown) (no (unknown) (unknown) VBG Base Excess (units (unknown) date) (0-4) mmol/L unknown) (unknown) (no (unknown) (unknown) VBG Base Excess (units (unknown) date) 22.0 H (0-4) unknown) mmol/L (unknown) (no (unknown) (unknown) VBG HCO3 (23-28) (units (unknown) date) mmol/L unknown) (unknown) (no (unknown) (unknown) VBG HCO3 43 H (units ( unknown) date) (23-28) mmol/L unknown) (unknown) (no (unknown) (unknown) VBG O2 Saturation (units (unknown) date) (70-75) % unknown) (unknown) (no (unknown) (unknown) VBG O2 Saturation (units (unknown) date) 97 H (70-75) % unknown) (unknown) (no (unknown) (unknown) VBG Total CO2 (units ( unknown) date) (24-29) mmol/L unknown) (unknown) (no (unknown) (unknown) VBG Total CO2 44 (units (unknown) date) H (24-29) mmol/L unknown) (unknown) (no (unknown) (unknown) VBG [Venous Blood (units (unknown) date) Gas] Stat unknown) (unknown) (no (unknown) (unknown) VBG pCO2 (45-50) (units (unknown) date) mmHg unknown) (unknown) (no (unknown) (unknown) VBG pCO2 40.7 L (units (unknown) date) (45-50) mmHg unknown) (unknown) (no (unknown) (unknown) VBG pH (units (unkno wn) date) (7.33-7.43) unknown) (unknown) (no (unknown) (unknown) VBG pH 7.63 H (units ( unknown) date) (7.33-7.43) unknown) (unknown) (no (unknown) (unknown) VBG pO2 (35-45) (units (unknown) date) mmHg unknown) (unknown) (no (unknown) (unknown) VBG pO2 79 H (units (u nknown) date) (35-45) mmHg unknown) (unknown) (no (unknown) (unknown) Ventral Wall: ? (units (unknown) date) No hernias.? unknown) (unknown) (no (unknown) (unknown) Vessels:? 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 Patient presents with complaint of vomiting (unknown) (no (unknown) (unknown) adjustment (units (unk nown) date) unknown) (unknown) (no (unknown) (unknown) alcohol intake (units (unknown) date) frequency: 3 or unknown) more drinks per day (unknown) (no (unknown) (unknown) alcohol intake: (units (unknown) date) current unknown) (unknown) (no (unknown) (unknown) allergies to (units (un known) date) Reglan, unknown) promethazine IV but can tolerate per rectum and latex. She (unknown) (no (unknown) (unknown) amlodipine 5 mg (units (unknown) date) tablet 5 mg PO unknown) DAILY 03/20/22 03/20/22 (unknown) (no (unknown) (unknown) angioedema (units (unkn own) date) although she is unknown) had 2 episodes with her oropharynx on her past visits (unknown) (no (unknown) (unknown) artery near the (units (unknown) date) splenic hilum.. unknown) (unknown) (no (unknown) (unknown) based on this (units ( unknown) date) imaging was unknown) obtained. Plan to continue with hydration, repeat (unknown) (no (unknown) (unknown) bases to the (units (u nknown) date) pubic symphysis.? unknown) Coronal and sagittal reformats were performed.? (unknown) (no (unknown) (unknown) bladder normal. (units (unknown) date) unknown) (unknown) (no (unknown) (unknown) bleeding or (units (un known) date) discharge. Patient unknown) states she has not been able to keep down her (unknown) (no (unknown) (unknown) bloody stools. (units (unknown) date) She states no unknown) dysuria, urgency or frequency. No vaginal (unknown) (no (unknown) (unknown) bupropion HCl 100 (units (unknown) date) mg tablet,12 hr unknown) 100 mg PO DAILY 03/20/22 03/20/22 (unknown) (no (unknown) (unknown) changes. 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 (unknown) (no (unknown) (unknown) cream (units (unkno wn) date) unknown) (unknown) (no (unknown) (unknown) distress. (units (unkn own) date) unknown) (unknown) (no (unknown) (unknown) does use tobacco, (units (unknown) date) states she drinks unknown) 3-5 alcoholic drinks daily and states she (unknown) (no (unknown) (unknown) ducts (units (unkno wn) date) unknown) (unknown) (no (unknown) (unknown) electrolytes, (units ( unknown) date) renal function unknown) were obtained. Fluids, Haldol and Benadryl as (unknown) (no (unknown) (unknown) erythema, (units (unkno wn) date) tonsillar unknown) enlargement or uvular deviation, no obvious swelling of lips (unknown) (no (unknown) (unknown) extremities, full (units (unknown) date) range of motion unknown) (unknown) (no (unknown) (unknown) fluconazole 200 (units (unknown) date) mg tablet 200 mg unknown) PO WEEKLY 4 weeks #4 tabs 03/21/22 (unknown) (no (unknown) (unknown) for the past 3 (units (unknown) date) days. 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 We (units (unknown) date) did discuss that unknown) she was noted to have angioedema on the last (unknown) (no (unknown) (unknown) hypertrophy, (units (u nknown) date) diffuse ST unknown) depression. (unknown) (no (unknown) (unknown) increased from (units (unknown) date) unknown) (unknown) (no (unknown) (unknown) injury again (units (u nknown) date) today and her unknown) lactate is 9. Patient's exam was reassuring but (unknown) (no (unknown) (unknown) is comfortable (units (unknown) date) with this and not unknown) receiving more radiation. Labs including (unknown) (no (unknown) (unknown) lactate and (units (un known) date) replacement of unknown) potassium IV with equal for admission. (unknown) (no (unknown) (unknown) last cocaine use (units (unknown) date) but does not think unknown) it was recently. She is accompanied by her (unknown) (no (unknown) (unknown) latex [LATEX] (units ( unknown) date) Allergy Unknown unknown) Verified 04/13/22 09:42 (unknown) (no (unknown) (unknown) lorazepam 0.5 mg (units (unknown) date) tablet (Ativan) unknown) 0.5 mg PO DAILY PRN nausea and 11/03/21 (unknown) (no (unknown) (unknown) mesenteric (units (unk nown) date) inflammatory unknown) changes. (unknown) (no (unknown) (unknown) metoclopramide (units (unknown) date) AdvReac Unknown unknown) DYSTONIA Verified 04/13/22 09:42 (unknown) (no (unknown) (unknown) miconazole (units (unk nown) date) nitrate 2 % unknown) topical 1 applic topical BID #30 grams 03/21/22 (unknown) (no (unknown) (unknown) morning which was (units (unknown) date) not helpful. unknown) Patient states no surgeries. She does have (unknown) (no (unknown) (unknown) movements are (units ( unknown) date) intact, nares are unknown) clear, Throat is clear without any exudates, (unknown) (no (unknown) (unknown) of mA and/or kV (units (unknown) date) according to unknown) patient size.? (unknown) (no (unknown) (unknown) once after at (units ( unknown) date) least 2 hours unknown) (unknown) (no (unknown) (unknown) ondansetron 4 mg (units (unknown) date) disintegrating 4 unknown) mg PO Q8H PRN nausea and 07/28/19 (unknown) (no (unknown) (unknown) ondansetron 8 mg (units (unknown) date) disintegrating 8 unknown) mg PO TID PRN Nausea 09/18/19 03/20/22 (unknown) (no (unknown) (unknown) patient has often (units (unknown) date) responded well to unknown) these. (unknown) (no (unknown) (unknown) pericolonic or (units (unknown) date) unknown) (unknown) (no (unknown) (unknown) potassium (units (unkn own) date) chloride 20 mEq 20 unknown) meq PO DAILY #30 tabs 03/21/22 (unknown) (no (unknown) (unknown) promethazine (units (u nknown) date) [PROMETHAZINE] unknown) Allergy Mild ERYTHEMA Verified 04/13/22 09:42 (unknown) (no (unknown) (unknown) radiation dose (units (unknown) date) reduction, the unknown) following was used:? automated exposure control, (unknown) (no (unknown) (unknown) rigidity, no (units (u nknown) date) masses noted, no unknown) hepatosplenomegaly , no distention. No bruit. (unknown) (no (unknown) (unknown) splenic (units (unkno wn) date) unknown) (unknown) (no (unknown) (unknown) spray headache #1 (units (unknown) date) ea unknown) (unknown) (no (unknown) (unknown) stooling (units (unkno wn) date) regularly with no unknown) diarrhea or constipation and denies any black or (unknown) (no (unknown) (unknown) sumatriptan 5 (units ( unknown) date) mg/actuation nasal unknown) 5 mg intranasal Q2-4H PRN migraine 06/04/21 (unknown) (no (unknown) (unknown) sustained-release (units (unknown) date) unknown) (unknown) (no (unknown) (unknown) symmetrically, no (units (unknown) date) tachypnea unknown) accessory muscle use. (unknown) (no (unknown) (unknown) tablet (units (unkno wn) date) unknown) (unknown) (no (unknown) (unknown) tablet vomiting (units (unknown) date) #10 tabs unknown) (unknown) (no (unknown) (unknown) tablet,extended (units (unknown) date) release unknown) (unknown) (no (unknown) (unknown) the lung (units (unkno wn) date) unknown) (unknown) (no (unknown) (unknown) tobacco type: (units ( unknown) date) vaping unknown) (unknown) (no (unknown) (unknown) use cocaine (units (un known) date) intermittently. unknown) She is not currently having any symptoms of (unknown) (no (unknown) (unknown) uses THC (units (unkno wn) date) intermittently as unknown) well as cocaine. Patient states she is unsure of her (unknown) (no (unknown) (unknown) vaccination. She (units (unknown) date) had testing sent unknown) for hereditary angioedema but does not know (unknown) (no (unknown) (unknown) vomiting episodes (units (unknown) date) in the past. She unknown) denies fevers. She states she is been (unknown) (no (unknown) (unknown) vomiting up (units (un known) date) everything she unknown) tries to put in her stomach, denies any hemoptysis. (unknown) (no (unknown) (unknown) what the results (units (unknown) date) of those were. unknown) (unknown) (no (unknown) (unknown) work was reviewed (units (unknown) date) complement testing unknown) was sent. Patient states symptoms are very Result panel 62 (unknown) (no date) (unknown) (unknown) 3.0 mmol/L (unkn own) Result panel 63 (unknown) (no (unknown) (unknown) (no value) (units (unk nown) date) unknown) (unknown) (no (unknown) (unknown) Radiologist's (units ( unknown) date) Impression: unknown) (unknown) (no (unknown) (unknown) Date of Service: (units (unknown) date) 04/13/22 unknown) (unknown) (no (unknown) (unknown) (no value) (units (unk nown) date) unknown) (unknown) (no (unknown) (unknown) 04/13/22 09:20 (units (unknown) date) unknown) (unknown) (no (unknown) (unknown) [address] [place] [address] (units (unknown) date) unknown) (unknown) (no (unknown) (unknown) ABLE TO (units (unkno wn) date) unknown) (unknown) (no (unknown) (unknown) Admin: 04/13/22 (units (unknown) date) 10:12 Dose: 100 unknown) mls/hr (unknown) (no (unknown) (unknown) Admin: 04/13/22 (units (unknown) date) 11:19 Dose: 100 unknown) mls/hr (unknown) (no (unknown) (unknown) Allergies (units (unkn own) date) unknown) (unknown) (no (unknown) (unknown) [place], [place] (units ( unknown) date) [id number] unknown) (unknown) (no (unknown) (unknown) CT Scan Report (units (unknown) date) unknown) (unknown) (no (unknown) (unknown) Close (units (unkno wn) date) unknown) (unknown) (no (unknown) (unknown) Documented By: [facility] (units (unknown) date) unknown) (unknown) (no (unknown) (unknown) Documented By: KF (units (unknown) date) unknown) (unknown) (no (unknown) (unknown) Documented By: RLS (units (unknown) date) unknown) (unknown) (no (unknown) (unknown) ED Orders (units (unkn own) date) unknown) (unknown) (no (unknown) (unknown) Emergency Report (units (unknown) date) unknown) (unknown) (no (unknown) (unknown) Home Medications (units (unknown) date) unknown) (unknown) (no (unknown) (unknown) Infusion: 04/13/22 (units (unknown) date) 11:12 Dose: 100 unknown) mls/hr (unknown) (no (unknown) (unknown) Infusion: 04/13/22 (units (unknown) date) 12:19 Dose: 100 unknown) mls/hr (unknown) (no (unknown) (unknown) [facility] (units (unknown) date) unknown) (unknown) (no (unknown) (unknown) [facility] (units (unknown) date) [address] unknown) [place] [address] (unknown) (no (unknown) (unknown) Lab Results (units (un known) date) unknown) (unknown) (no (unknown) (unknown) Last Admin: (units (un known) date) 04/13/22 09:58 unknown) Dose: 1,000 mls/hr (unknown) (no (unknown) (unknown) Last Admin: (units (un known) date) 04/13/22 09:59 unknown) Dose: 25 mg (unknown) (no (unknown) (unknown) Last Admin: (units (un known) date) 04/13/22 09:59 unknown) Dose: 5 mg (unknown) (no (unknown) (unknown) Last Admin: (units (un known) date) 04/13/22 12:38 unknown) Dose: 100 mls/hr (unknown) (no (unknown) (unknown) Launch?Image (units (u nknown) date) unknown) (unknown) (no (unknown) (unknown) PT STATES (units (unkn own) date) unknown) (unknown) (no (unknown) (unknown) Previous Rx's (units ( unknown) date) unknown) (unknown) (no (unknown) (unknown) Signed (units (unkno wn) date) unknown) (unknown) (no (unknown) (unknown) Stop: 04/13/22 (units (unknown) date) 09:48 unknown) (unknown) (no (unknown) (unknown) Stop: 04/13/22 (units (unknown) date) 10:46 unknown) (unknown) (no (unknown) (unknown) Stop: 04/13/22 (units (unknown) date) 11:39 unknown) (unknown) (no (unknown) (unknown) Stop: 04/13/22 (units (unknown) date) 14:14 unknown) (unknown) (no (unknown) (unknown) Stop: 04/13/22 (units (unknown) date) 14:44 unknown) (unknown) (no (unknown) (unknown) TAKE [facility] (units (unkno wn) date) unknown) (unknown) (no (unknown) (unknown) TO IV SITE (units (unk nown) date) unknown) (unknown) (no (unknown) (unknown) Vital Signs - 8 hr (units (unknown) date) unknown) (unknown) (no (unknown) (unknown) (no value) (units (unk nown) date) unknown) (unknown) (no (unknown) (unknown) 04/13/22 04/13/22 (units (unknown) date) 04/13/22 unknown) Range/Units (unknown) (no (unknown) (unknown) 04/13/22 (units (unkno wn) date) Range/Units unknown) (unknown) (no (unknown) (unknown) 09:20 09:20 09:40 (units (unknown) date) unknown) (unknown) (no (unknown) (unknown) 09:40 09:55 11:01 (units (unknown) date) unknown) (unknown) (no (unknown) (unknown) 11:20 (units (unkno wn) date) unknown) (unknown) (no (unknown) (unknown) 04/13/22 (units (unkno wn) date) unknown) (unknown) (no (unknown) (unknown) Acute hypokalemia, (units (unknown) date) Acute kidney unknown) injury, Vomiting (unknown) (no (unknown) (unknown) Medication (units (unk nown) date) Instructions unknown) Recorded (unknown) (no (unknown) (unknown) Medication (units (unk nown) date) Instructions unknown) Recorded Confirmed (unknown) (no (unknown) (unknown) and below (units (unkn own) date) unknown) (unknown) (no (unknown) (unknown) but would require (units (unknown) date) quite a bit of IV unknown) potassium and patient's lactate was quite (unknown) (no (unknown) (unknown) in October and (units (u nknown) date) during her hospital unknown) stay the beginning of March. Patient's lab (unknown) (no (unknown) (unknown) or tongue on (units (u nknown) date) examination. unknown) (unknown) (no (unknown) (unknown) typical of her (units (unknown) date) prior exacerbations unknown) so imaging was deferred patient states she (unknown) (no (unknown) (unknown) vomiting #10 tabs (units (unknown) date) unknown) (unknown) (no (unknown) (unknown) - (units (unkno wn) date) unknown) (unknown) (no (unknown) (unknown) 04/13/22 (units (unkno wn) date) unknown) (unknown) (no (unknown) (unknown) 04/13/22 09:20 (units (unknown) date) unknown) (unknown) (no (unknown) (unknown) 04/13/22 09:36 (units (unknown) date) unknown) (unknown) (no (unknown) (unknown) 04/13/22 09:40 (units (unknown) date) unknown) (unknown) (no (unknown) (unknown) 04/13/22 09:46 (units (unknown) date) unknown) (unknown) (no (unknown) (unknown) 04/13/22 09:55 (units (unknown) date) unknown) (unknown) (no (unknown) (unknown) 04/13/22 10:40 (units (unknown) date) unknown) (unknown) (no (unknown) (unknown) 04/13/22 11:01 (units (unknown) date) unknown) (unknown) (no (unknown) (unknown) 04/13/22 11:20 (units (unknown) date) unknown) (unknown) (no (unknown) (unknown) 09:33 04/13/22 (units (unknown) date) unknown) (unknown) (no (unknown) (unknown) 09:36 04/13/22 (units (unknown) date) unknown) (unknown) (no (unknown) (unknown) 10:18 (units (unkno wn) date) unknown) (unknown) (no (unknown) (unknown) 10:30 04/13/22 (units (unknown) date) unknown) (unknown) (no (unknown) (unknown) 11:00 (units (unkno wn) date) unknown) (unknown) (no (unknown) (unknown) 2 visits of her (units (unknown) date) tongue. Patient unknown) states she was told that this is from her COVID (unknown) (no (unknown) (unknown) [id number] (units (unkno wn) date) unknown) (unknown) (no (unknown) (unknown) ? (units (unkno wn) date) unknown) (unknown) (no (unknown) (unknown) ?measuring 2.4 (units ( unknown) date) centimeters unknown) COMPARISON:[facility], CT, ABDOMEN/PELVIS WITH (unknown) (no (unknown) (unknown) @ 100 mls/hr IV (units (unknown) date) Q1H KIRIT unknown) (unknown) (no (unknown) (unknown) ABD:bowel sounds (units (unknown) date) normal, soft, unknown) mildly tender generalized, no guarding, rebound, (unknown) (no (unknown) (unknown) ABDOMEN: (units (unkno wn) date) unknown) (unknown) (no (unknown) (unknown) ALT (<35) IU/L (units (unknown) date) unknown) (unknown) (no (unknown) (unknown) ALT (<35) IU/L (units (unknown) date) unknown) (unknown) (no (unknown) (unknown) ALT 35 H (<35) (units (unknown) date) IU/L unknown) (unknown) (no (unknown) (unknown) AST (14-36) IU/L (units (unknown) date) unknown) (unknown) (no (unknown) (unknown) AST (14-36) IU/L (units (unknown) date) unknown) (unknown) (no (unknown) (unknown) AST 36 (14-36) (units (unknown) date) IU/L unknown) (unknown) (no (unknown) (unknown) Abdomen/Pelvis CT (units (unknown) date) (Signed) unknown) (unknown) (no (unknown) (unknown) Abdominal Nodes:? (units (unknown) date) No retroperitoneal unknown) or mesenteric adenopathy by size criteria.? (unknown) (no (unknown) (unknown) Abscess (units (unkno wn) date) unknown) (unknown) (no (unknown) (unknown) Accession Number: (units (unknown) date) [id number] ?? unknown) (unknown) (no (unknown) (unknown) Acct:[id number] (units (unknown) date) unknown) (unknown) (no (unknown) (unknown) Adrenal Glands:? (units (unknown) date) Unremarkable.? ? unknown) (unknown) (no (unknown) (unknown) After the (units (unkn own) date) administration of unknown) intravenous contrast, axial sections acquired from (unknown) (no (unknown) (unknown) Age/Sex: 46 / F (units (unknown) date) unknown) (unknown) (no (unknown) (unknown) Age/Sex: 46 / F (units (unknown) date) unknown) (unknown) (no (unknown) (unknown) Albumin (3.5-5.0) (units (unknown) date) g/dL unknown) (unknown) (no (unknown) (unknown) Albumin (3.5-5.0) (units (unknown) date) g/dL unknown) (unknown) (no (unknown) (unknown) Albumin 5.6 H (units ( unknown) date) (3.5-5.0) g/dL unknown) (unknown) (no (unknown) (unknown) Albumin/Globulin (units (unknown) date) Ratio (1.0-2.8) unknown) (unknown) (no (unknown) (unknown) Albumin/Globulin (units (unknown) date) Ratio (1.0-2.8) unknown) (unknown) (no (unknown) (unknown) Albumin/Globulin (units (unknown) date) Ratio 1.1 (1.0-2.8) unknown) (unknown) (no (unknown) (unknown) Alcohol type: wine (units (unknown) date) unknown) (unknown) (no (unknown) (unknown) Alkaline (units (unkno wn) date) Phosphatase unknown) (38-126) U/L (unknown) (no (unknown) (unknown) Alkaline (units (unkno wn) date) Phosphatase unknown) (38-126) U/L (unknown) (no (unknown) (unknown) Alkaline (units (unkno wn) date) Phosphatase 96 unknown) (38-126) U/L (unknown) (no (unknown) (unknown) Allergy/AdvReac (units (unknown) date) Type Severity unknown) Reaction Status Date / Time (unknown) (no (unknown) (unknown) Approved by: Bobby (units (unknown) date) Cathy Oropeza on unknown) 04/13/2022 at 11:23?? (unknown) (no (unknown) (unknown) Attestation: I (units (unknown) date) personally reviewed unknown) and interpreted this ECG as follows: (unknown) (no (unknown) (unknown) BUN (7-17) mg/dL (units (unknown) date) unknown) (unknown) (no (unknown) (unknown) BUN (7-17) mg/dL (units (unknown) date) unknown) (unknown) (no (unknown) (unknown) BUN 31 H (7-17) (units (unknown) date) mg/dL unknown) (unknown) (no (unknown) (unknown) BUN/Creatinine (units (unknown) date) Ratio (6-22) unknown) (unknown) (no (unknown) (unknown) BUN/Creatinine (units (unknown) date) Ratio (6-22) unknown) (unknown) (no (unknown) (unknown) BUN/Creatinine (units (unknown) date) Ratio 18.0 (6-22) unknown) (unknown) (no (unknown) (unknown) Baso # (Auto) (units ( unknown) date) (0-100) /uL unknown) (unknown) (no (unknown) (unknown) Baso # (Auto) (units ( unknown) date) (0-100) /uL unknown) (unknown) (no (unknown) (unknown) Baso # (Auto) 0 (units (unknown) date) (0-100) /uL unknown) (unknown) (no (unknown) (unknown) Baso % (Auto) (units ( unknown) date) (0-2) % unknown) (unknown) (no (unknown) (unknown) Baso % (Auto) (units ( unknown) date) (0-2) % unknown) (unknown) (no (unknown) (unknown) Baso % (Auto) 0.5 (units (unknown) date) (0-2) % unknown) (unknown) (no (unknown) (unknown) Biliary ducts:? (units (unknown) date) Mild dilatation of unknown) the intrahepatic and extrahepatic biliary (unknown) (no (unknown) (unknown) Blood Culture Stat (units (unknown) date) unknown) (unknown) (no (unknown) (unknown) Blood Pressure (units (unknown) date) unknown) (unknown) (no (unknown) (unknown) Blood Pressure (units (unknown) date) 151/93 H 04/13/22 unknown) 09:33 (unknown) (no (unknown) (unknown) Blood Pressure (units (unknown) date) 116/82 126/80 unknown) (unknown) (no (unknown) (unknown) Blood Pressure (units (unknown) date) 151/93 H 151/93 H unknown) (unknown) (no (unknown) (unknown) Bones:? (units (unkno wn) date) Unremarkable.? ? unknown) (unknown) (no (unknown) (unknown) CONTRAST, (units (unkn own) date) 08/16/2014, 1:04. unknown) (unknown) (no (unknown) (unknown) COVID19 -Nasal (units (unknown) date) RAPID/Pre-Proc Stat unknown) (unknown) (no (unknown) (unknown) CT abdomen pelvis (units (unknown) date) w con Stat unknown) (unknown) (no (unknown) (unknown) CT scan - (units (unkn own) date) abdomen/pelvis: unknown) (unknown) (no (unknown) (unknown) Calcium (8.4-10.2) (units (unknown) date) mg/dL unknown) (unknown) (no (unknown) (unknown) Calcium (8.4-10.2) (units (unknown) date) mg/dL unknown) (unknown) (no (unknown) (unknown) Calcium 10.4 H (units (unknown) date) (8.4-10.2) mg/dL unknown) (unknown) (no (unknown) (unknown) Carbon Dioxide (units (unknown) date) (22-32) mmol/L unknown) (unknown) (no (unknown) (unknown) Carbon Dioxide (units (unknown) date) (22-32) mmol/L unknown) (unknown) (no (unknown) (unknown) Carbon Dioxide 32 (units (unknown) date) (22-32) mmol/L unknown) (unknown) (no (unknown) (unknown) Chief complaint: (units (unknown) date) Abdominal Pain unknown) (unknown) (no (unknown) (unknown) Chloride (98-107) (units (unknown) date) mmol/L unknown) (unknown) (no (unknown) (unknown) Chloride (98-107) (units (unknown) date) mmol/L unknown) (unknown) (no (unknown) (unknown) Chloride 82 L (units ( unknown) date) (98-107) mmol/L unknown) (unknown) (no (unknown) (unknown) Cholecystectomy.? (units (unknown) date) unknown) (unknown) (no (unknown) (unknown) Chronic abdominal (units (unknown) date) pain unknown) (unknown) (no (unknown) (unknown) Clinical (units (unkno wn) date) Impression: unknown) (unknown) (no (unknown) (unknown) Complete Blood (units (unknown) date) Count AUTO DIFF unknown) Stat (unknown) (no (unknown) (unknown) Comprehensive (units ( unknown) date) Metabolic Panel unknown) Stat (unknown) (no (unknown) (unknown) Course (units (o wn) date) unknown) (unknown) (no (unknown) (unknown) Creatinine (units (unk nown) date) (0.52-1.04) mg/dL unknown) (unknown) (no (unknown) (unknown) Creatinine (units (unk nown) date) (0.52-1.04) mg/dL unknown) (unknown) (no (unknown) (unknown) Creatinine 1.72 H (units (unknown) date) (0.52-1.04) mg/dL unknown) (unknown) (no (unknown) (unknown) Cyclic vomiting (units (unknown) date) syndrome unknown) (unknown) (no (unknown) (unknown) : 1975 (units (unknown) date) Acct:[id number] unknown) (unknown) (no (unknown) (unknown) : 1975 (units (unknown) date) unknown) (unknown) (no (unknown) (unknown) Date of Service: (units (unknown) date) 04/13/22 unknown) (unknown) (no (unknown) (unknown) Daughter (units (unkno wn) date) Angio-edema unknown) (unknown) (no (unknown) (unknown) July 2014 (units ( unknown) date) study. unknown) (unknown) (no (unknown) (unknown) Departure (units (unkn own) date) unknown) (unknown) (no (unknown) (unknown) Dictated by: Bobby (units (unknown) date) Cathy Oropeza on unknown) 04/13/2022 at 11:19 ? ? (unknown) (no (unknown) (unknown) Diphenhydramine (units (unknown) date) HCl unknown) (Diphenhydramine 50 Mg/Ml Vial) 25 mg IV NOW ONE (unknown) (no (unknown) (unknown) Discharge Plan (units (unknown) date) unknown) (unknown) (no (unknown) (unknown) Discontinued (units (u nknown) date) Medications unknown) (unknown) (no (unknown) (unknown) ECG Data (units (unkno wn) date) unknown) (unknown) (no (unknown) (unknown) EKG-12 Lead Stat (units (unknown) date) unknown) (unknown) (no (unknown) (unknown) ER Physician: (units ( unknown) date) Mine Harrington D.O. unknown) (unknown) (no (unknown) (unknown) ETOH [Ethanol (units ( unknown) date) (ETOH)] Stat unknown) (unknown) (no (unknown) (unknown) Eos # (Auto) (units (u nknown) date) (0-450) /uL unknown) (unknown) (no (unknown) (unknown) Eos # (Auto) (units (u nknown) date) (0-450) /uL unknown) (unknown) (no (unknown) (unknown) Eos # (Auto) 0 (units (unknown) date) (0-450) /uL unknown) (unknown) (no (unknown) (unknown) Eos % (Auto) (2-4) (units (unknown) date) % unknown) (unknown) (no (unknown) (unknown) Eos % (Auto) (2-4) (units (unknown) date) % unknown) (unknown) (no (unknown) (unknown) Eos % (Auto) 0.1 L (units (unknown) date) (2-4) % unknown) (unknown) (no (unknown) (unknown) Estimated GFR (units ( unknown) date) (>60) mL/min unknown) (unknown) (no (unknown) (unknown) Estimated GFR (units ( unknown) date) (>60) mL/min unknown) (unknown) (no (unknown) (unknown) Estimated GFR 36 L (units (unknown) date) (>60) mL/min unknown) (unknown) (no (unknown) (unknown) Ethyl Alcohol ( - (units (unknown) date) 10) mg/dL unknown) (unknown) (no (unknown) (unknown) Ethyl Alcohol < 10 (units (unknown) date) ( - 10) mg/dL unknown) (unknown) (no (unknown) (unknown) Ethyl Alcohol ( - (units (unknown) date) 10) mg/dL unknown) (unknown) (no (unknown) (unknown) Exam (units (unkno wn) date) unknown) (unknown) (no (unknown) (unknown) Exam Narrative: (units (unknown) date) unknown) (unknown) (no (unknown) (unknown) FINDINGS:? (units (unk nown) date) unknown) (unknown) (no (unknown) (unknown) Family History (units (unknown) date) (Reviewed 04/13/22 unknown) @ 09:52 by Mine Harrington DO) (unknown) (no (unknown) (unknown) Family history of (units (unknown) date) angioedema unknown) (unknown) (no (unknown) (unknown) Father (units (unkno wn) date) Hypertension unknown) (unknown) (no (unknown) (unknown) For (units (unkno wn) date) unknown) (unknown) (no (unknown) (unknown) GEN: Female, alert (units (unknown) date) and oriented x 3, unknown) patient appears to be in moderate (unknown) (no (unknown) (unknown) :No CVA (units (unkn own) date) tenderness unknown) (unknown) (no (unknown) (unknown) Gallbladder:? (units ( unknown) date) Cholecystectomy.? ? unknown) (unknown) (no (unknown) (unknown) General (units (unkno wn) date) unknown) (unknown) (no (unknown) (unknown) GenericComposite[P (units (unknown) date) lt Count (150-400) unknown) X10^3/uL ] (unknown) (no (unknown) (unknown) GenericComposite[P (units (unknown) date) lt Count (150-400) unknown) X10^3/uL ] (unknown) (no (unknown) (unknown) GenericComposite[P (units (unknown) date) lt Count 284 unknown) (150-400) X10^3/uL ] (unknown) (no (unknown) (unknown) GenericComposite[R (units (unknown) date) BC (4.0-5.2) unknown) X10^6/uL ] (unknown) (no (unknown) (unknown) GenericComposite[R (units (unknown) date) BC (4.0-5.2) unknown) X10^6/uL ] (unknown) (no (unknown) (unknown) GenericComposite[R (units (unknown) date) BC 4.77 (4.0-5.2) unknown) X10^6/uL ] (unknown) (no (unknown) (unknown) GenericComposite[W (units (unknown) date) BC (4.5-11.0) unknown) X10^3/uL ] (unknown) (no (unknown) (unknown) GenericComposite[W (units (unknown) date) BC (4.5-11.0) unknown) X10^3/uL ] (unknown) (no (unknown) (unknown) GenericComposite[W (units (unknown) date) BC 6.2 (4.5-11.0) unknown) X10^3/uL ] (unknown) (no (unknown) (unknown) Globulin (1.7-4.1) (units (unknown) date) g/dL unknown) (unknown) (no (unknown) (unknown) Globulin (1.7-4.1) (units (unknown) date) g/dL unknown) (unknown) (no (unknown) (unknown) Globulin 4.9 H (units (unknown) date) (1.7-4.1) g/dL unknown) (unknown) (no (unknown) (unknown) Glucose (70-100) (units (unknown) date) mg/dL unknown) (unknown) (no (unknown) (unknown) Glucose (70-100) (units (unknown) date) mg/dL unknown) (unknown) (no (unknown) (unknown) Glucose 134 H (units ( unknown) date) (70-100) mg/dL unknown) (unknown) (no (unknown) (unknown) HEART: Regular (units (unknown) date) rate and rhythm unknown) without murmur, clicks, rubs. (unknown) (no (unknown) (unknown) HEENT: Atraumatic, (units (unknown) date) pupils are equal unknown) round reactive to light, extraocular (unknown) (no (unknown) (unknown) HPI - (units (unkno wn) date) Nausea/Vomiting/Trupti unknown) rrhea (unknown) (no (unknown) (unknown) HPI Narrative: (units (unknown) date) unknown) (unknown) (no (unknown) (unknown) Haloperidol (units (un known) date) (Haloperidol 5 unknown) Mg/Ml Vial) 5 mg IV NOW ONE (unknown) (no (unknown) (unknown) Hct (36-46) % (units ( unknown) date) unknown) (unknown) (no (unknown) (unknown) Hct (36-46) % (units ( unknown) date) unknown) (unknown) (no (unknown) (unknown) Hct 44.2 (36-46) (units (unknown) date) % unknown) (unknown) (no (unknown) (unknown) Heart:? No (units (unk nown) date) significant unknown) findings. (unknown) (no (unknown) (unknown) Hgb (12.0-16.0) (units (unknown) date) g/dL unknown) (unknown) (no (unknown) (unknown) Hgb (12.0-16.0) (units (unknown) date) g/dL unknown) (unknown) (no (unknown) (unknown) Hgb 15.4 (units (unkno wn) date) (12.0-16.0) g/dL unknown) (unknown) (no (unknown) (unknown) History of Present (units (unknown) date) Illness unknown) (unknown) (no (unknown) (unknown) Hx of appendectomy (units (unknown) date) unknown) (unknown) (no (unknown) (unknown) Hx of (units (unkno wn) date) cholecystectomy unknown) (unknown) (no (unknown) (unknown) IMPRESSION:? (units (u nknown) date) unknown) (unknown) (no (unknown) (unknown) INDICATIONS:? (units ( unknown) date) vomiting/hx cyclic, unknown) elevated lactate (unknown) (no (unknown) (unknown) Image quality:? (units (unknown) date) Excellent.? unknown) (unknown) (no (unknown) (unknown) Imaging Data (units (u nknown) date) unknown) (unknown) (no (unknown) (unknown) Initial Vital (units ( unknown) date) Signs unknown) (unknown) (no (unknown) (unknown) Initial Vital (units ( unknown) date) Signs: unknown) (unknown) (no (unknown) (unknown) Interpretation: (units (unknown) date) unknown) (unknown) (no (unknown) (unknown) Ketones (<0.27) (units (unknown) date) mmol/L unknown) (unknown) (no (unknown) (unknown) Ketones (<0.27) (units (unknown) date) mmol/L unknown) (unknown) (no (unknown) (unknown) Ketones 0.20 (units (u nknown) date) (<0.27) mmol/L unknown) (unknown) (no (unknown) (unknown) Ketones (units (unkno wn) date) (Beta-Hydroxybutyra unknown) te) Stat (unknown) (no (unknown) (unknown) Kidneys and (units (un known) date) Ureters:? No unknown) urinary tract calculus or hydroureteronephros is. (unknown) (no (unknown) (unknown) LUNGS:Lungs clear (units (unknown) date) to auscultation, no unknown) wheezes, rales, crackles, chest moves (unknown) (no (unknown) (unknown) Lab Data (units (o wn) date) unknown) (unknown) (no (unknown) (unknown) Labs: (units (o wn) date) unknown) (unknown) (no (unknown) (unknown) Lactate (0.7-2.1) (units (unknown) date) mmol/L unknown) (unknown) (no (unknown) (unknown) Lactate 9.7 H* (units (unknown) date) (0.7-2.1) mmol/L unknown) (unknown) (no (unknown) (unknown) Lactate 3.0 H (units ( unknown) date) (0.7-2.1) mmol/L unknown) (unknown) (no (unknown) (unknown) Lactate (Lactic (units (unknown) date) Acid) Stat unknown) (unknown) (no (unknown) (unknown) Lactated Ringer's (units (unknown) date) (Lactated Ringers) unknown) 1,000 mls @ 1,000 mls/hr IV BOLUS ONE (unknown) (no (unknown) (unknown) Limitations: no (units (unknown) date) limitations unknown) (unknown) (no (unknown) (unknown) Lipase (23-300) (units (unknown) date) U/L unknown) (unknown) (no (unknown) (unknown) Lipase (23-300) (units (unknown) date) U/L unknown) (unknown) (no (unknown) (unknown) Lipase 96 (23-300) (units (unknown) date) U/L unknown) (unknown) (no (unknown) (unknown) Lipase Stat (units (un known) date) unknown) (unknown) (no (unknown) (unknown) Liver:? (units (unkno wn) date) Unremarkable.? ? unknown) (unknown) (no (unknown) (unknown) Loc: ED (units (unkno wn) date) unknown) (unknown) (no (unknown) (unknown) Lung bases:? (units (u nknown) date) Unremarkable. unknown) (unknown) (no (unknown) (unknown) Lymph # (Auto) (units (unknown) date) ([id number]) /uL unknown) (unknown) (no (unknown) (unknown) Lymph # (Auto) (units (unknown) date) ([phone]) /uL unknown) (unknown) (no (unknown) (unknown) Lymph # (Auto) (units (unknown) date) 1300 ([id number]) unknown) /uL (unknown) (no (unknown) (unknown) Lymph % (Auto) (units (unknown) date) (25-40) % unknown) (unknown) (no (unknown) (unknown) Lymph % (Auto) (units (unknown) date) (25-40) % unknown) (unknown) (no (unknown) (unknown) Lymph % (Auto) (units (unknown) date) 20.9 L (25-40) % unknown) (unknown) (no (unknown) (unknown) MCH (26-34) PG (units (unknown) date) unknown) (unknown) (no (unknown) (unknown) MCH (26-34) PG (units (unknown) date) unknown) (unknown) (no (unknown) (unknown) MCH 32.4 (26-34) (units (unknown) date) PG unknown) (unknown) (no (unknown) (unknown) MCHC (30-36) % (units (unknown) date) unknown) (unknown) (no (unknown) (unknown) MCHC (30-36) % (units (unknown) date) unknown) (unknown) (no (unknown) (unknown) MCHC 35.0 (30-36) (units (unknown) date) % unknown) (unknown) (no (unknown) (unknown) MCV (80-100) fL (units (unknown) date) unknown) (unknown) (no (unknown) (unknown) MCV (80-100) fL (units (unknown) date) unknown) (unknown) (no (unknown) (unknown) MCV 92.6 (80-100) (units (unknown) date) fL unknown) (unknown) (no (unknown) (unknown) MDM - (units (unkno wn) date) Nausea/Vomiting/Trupti unknown) rrhea (unknown) (no (unknown) (unknown) MDM Narrative (units ( unknown) date) unknown) (unknown) (no (unknown) (unknown) MR#: [id number] (units (unknown) date) unknown) (unknown) (no (unknown) (unknown) 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 (unknown) (no (unknown) (unknown) MSCL: Non-tender, (units (unknown) date) no muscle atrophy, unknown) muscles strength 5/5 upper and lower (unknown) (no (unknown) (unknown) Marijuana use, (units (unknown) date) continuous unknown) (unknown) (no (unknown) (unknown) Tiffanie kindly (units (unknown) date) accepts. unknown) (unknown) (no (unknown) (unknown) Medical History (units (unknown) date) (Reviewed 04/13/22 unknown) @ 09:52 by Mine Harrington DO) (unknown) (no (unknown) (unknown) Medical decision (units (unknown) date) making narrative: unknown) (unknown) (no (unknown) (unknown) Miscellaneous: No (units (unknown) date) hernias are seen. ? unknown) ? (unknown) (no (unknown) (unknown) Centre # (Auto) (units ( unknown) date) (0-900) /uL unknown) (unknown) (no (unknown) (unknown) Centre # (Auto) (units ( unknown) date) (0-900) /uL unknown) (unknown) (no (unknown) (unknown) Centre # (Auto) 500 (units (unknown) date) (0-900) /uL unknown) (unknown) (no (unknown) (unknown) Centre % (Auto) (units ( unknown) date) (3-14) % unknown) (unknown) (no (unknown) (unknown) Centre % (Auto) (units ( unknown) date) (3-14) % unknown) (unknown) (no (unknown) (unknown) Centre % (Auto) 8.7 (units (unknown) date) (3-14) % unknown) (unknown) (no (unknown) (unknown) Mother Diabetes (units (unknown) date) mellitus unknown) (unknown) (no (unknown) (unknown) NEURO:CN 2-12 (units ( unknown) date) intact, sensation unknown) normall (unknown) (no (unknown) (unknown) Narrative (units (unkn own) date) unknown) (unknown) (no (unknown) (unknown) Neut # (Auto) (units ( unknown) date) ([phone]) /uL unknown) (unknown) (no (unknown) (unknown) Neut # (Auto) (units ( unknown) date) ([phone]) /uL unknown) (unknown) (no (unknown) (unknown) Neut # (Auto) 4300 (units (unknown) date) (3008-1164) /uL unknown) (unknown) (no (unknown) (unknown) Neut % (Auto) (units ( unknown) date) (50-75) % unknown) (unknown) (no (unknown) (unknown) Neut % (Auto) (units ( unknown) date) (50-75) % unknown) (unknown) (no (unknown) (unknown) Neut % (Auto) 69.8 (units (unknown) date) (50-75) % unknown) (unknown) (no (unknown) (unknown) No acute finding. (units (unknown) date) unknown) (unknown) (no (unknown) (unknown) Ordered: (units (unkno wn) date) unknown) (unknown) (no (unknown) (unknown) Ordering Provider: (units (unknown) date) Mine Harrington D.O. unknown) (unknown) (no (unknown) (unknown) Orders (units (unkno wn) date) unknown) (unknown) (no (unknown) (unknown) Other Colon cancer (units (unknown) date) unknown) (unknown) (no (unknown) (unknown) Oxygen Delivery (units (unknown) date) Method unknown) (unknown) (no (unknown) (unknown) Oxygen Delivery (units (unknown) date) Method 04/13/22 unknown) 09:33 (unknown) (no (unknown) (unknown) Oxygen Delivery (units (unknown) date) Method unknown) (unknown) (no (unknown) (unknown) Oxygen Delivery (units (unknown) date) Method Room Air unknown) Room Air (unknown) (no (unknown) (unknown) PELVIS: (units (unkno wn) date) unknown) (unknown) (no (unknown) (unknown) POTASSIUM CHLORIDE (units (unknown) date) IN WATER (Potassium unknown) Cl 10 Meq/100 Ml Lidia) 10 meq in 100 mls (unknown) (no (unknown) (unknown) PROCEDURE:? CT (units (unknown) date) ABDOMEN PELVIS W unknown) CON (unknown) (no (unknown) (unknown) Pancreas:? No (units ( unknown) date) pancreatic ductal unknown) dilatation.? 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 She is hypokalemic, she is acute kidney (unknown) (no (unknown) (unknown) Patient presents (units (unknown) date) with complaint of unknown) abdominal pain and vomiting consistent with (unknown) (no (unknown) (unknown) Patient: (units (unkno wn) date) Dameon Castro MR#: unknown) [id number] (unknown) (no (unknown) (unknown) Patient: (units (unkno wn) date) Dameon Castro unknown) (unknown) (no (unknown) (unknown) Pelvic Nodes: No (units (unknown) date) enlarged lymph unknown) nodes.? (unknown) (no (unknown) (unknown) Pelvic Organs:? (units (unknown) date) IUD noted.? No unknown) abnormal finding of the uterus or ovaries.? (unknown) (no (unknown) (unknown) Peritoneum:? No (units (unknown) date) abnormal unknown) intraperitoneal fluid.? No free air.? (unknown) (no (unknown) (unknown) Potassium (units (unkn own) date) (3.4-5.1) mmol/L unknown) (unknown) (no (unknown) (unknown) Potassium (units (unkn own) date) (3.4-5.1) mmol/L unknown) (unknown) (no (unknown) (unknown) Potassium 2.7 L* (units (unknown) date) (3.4-5.1) mmol/L unknown) (unknown) (no (unknown) (unknown) Procedure: CT (units ( unknown) date) abdomen pelvis w unknown) con (unknown) (no (unknown) (unknown) Pulse Oximetry 96 (units (unknown) date) unknown) (unknown) (no (unknown) (unknown) Pulse Oximetry 98 (units (unknown) date) 04/13/22 09:33 unknown) (unknown) (no (unknown) (unknown) Pulse Oximetry 95 (units (unknown) date) unknown) (unknown) (no (unknown) (unknown) Pulse Oximetry 98 (units (unknown) date) 100 96 unknown) (unknown) (no (unknown) (unknown) Pulse Rate 90 (units ( unknown) date) 04/13/22 09:33 unknown) (unknown) (no (unknown) (unknown) Pulse Rate 91 H (units (unknown) date) unknown) (unknown) (no (unknown) (unknown) Pulse Rate 79 (units ( unknown) date) unknown) (unknown) (no (unknown) (unknown) Pulse Rate 90 98 H (units (unknown) date) 89 unknown) (unknown) (no (unknown) (unknown) RDW (11.6-14.8) % (units (unknown) date) unknown) (unknown) (no (unknown) (unknown) RDW (11.6-14.8) % (units (unknown) date) unknown) (unknown) (no (unknown) (unknown) RDW 13.8 (units (unkno wn) date) (11.6-14.8) % unknown) (unknown) (no (unknown) (unknown) ROS Unobtainable: (units (unknown) date) All systems unknown) reviewed + are unremarkable except as noted in HPI (unknown) (no (unknown) (unknown) Reevaluation #1: (units (unknown) date) unknown) (unknown) (no (unknown) (unknown) Reevaluation #2: (units (unknown) date) unknown) (unknown) (no (unknown) (unknown) Reevaluation(s) (units (unknown) date) unknown) (unknown) (no (unknown) (unknown) Related Data (units (u nknown) date) unknown) (unknown) (no (unknown) (unknown) Respiratory Rate (units (unknown) date) unknown) (unknown) (no (unknown) (unknown) Respiratory Rate (units (unknown) date) 16 04/13/22 09:33 unknown) (unknown) (no (unknown) (unknown) Respiratory Rate (units (unknown) date) 16 unknown) (unknown) (no (unknown) (unknown) Respiratory Rate (units (unknown) date) 24 unknown) (unknown) (no (unknown) (unknown) Result diagrams: (units (unknown) date) unknown) (unknown) (no (unknown) (unknown) Review of Systems (units (unknown) date) unknown) (unknown) (no (unknown) (unknown) Bobby Oropeza (units (u nknown) date) unknown) (unknown) (no (unknown) (unknown) SARS-CoV-2 (PCR) (units (unknown) date) (Negative) unknown) (unknown) (no (unknown) (unknown) SARS-CoV-2 (PCR) (units (unknown) date) (Negative) unknown) (unknown) (no (unknown) (unknown) SARS-CoV-2 (PCR) (units (unknown) date) Negative (Negative) unknown) (unknown) (no (unknown) (unknown) SKIN: No rash, (units (unknown) date) erythema or other unknown) skin changes noted. (unknown) (no (unknown) (unknown) Signed By: (units (unk nown) date) unknown) (unknown) (no (unknown) (unknown) Sinus rhythm rate (units (unknown) date) of 76 VA 146 QRS 86 unknown) and QTC 479. Left ventricular (unknown) (no (unknown) (unknown) Smoking Status: (units (unknown) date) Current every day unknown) smoker (unknown) (no (unknown) (unknown) Smoking Status: (units (unknown) date) Current every day unknown) smoker (unknown) (no (unknown) (unknown) Social History (units (unknown) date) (Reviewed 04/13/22 unknown) @ 09:52 by Mine Harrington DO) (unknown) (no (unknown) (unknown) Sodium (137-145) (units (unknown) date) mmol/L unknown) (unknown) (no (unknown) (unknown) Sodium (137-145) (units (unknown) date) mmol/L unknown) (unknown) (no (unknown) (unknown) Sodium 138 (units (unk nown) date) (137-145) mmol/L unknown) (unknown) (no (unknown) (unknown) Sodium Chloride (units (unknown) date) (Normal Saline unknown) 0.9%) 1,000 mls @ 1,000 mls/hr IV BOLUS ONE (unknown) (no (unknown) (unknown) Source: patient (units (unknown) date) and old records unknown) reviewed (unknown) (no (unknown) (unknown) Spleen:? Normal (units (unknown) date) size and appearance unknown) of the spleen. (unknown) (no (unknown) (unknown) Stated complaint: (units (unknown) date) cyclical vomiting unknown) (unknown) (no (unknown) (unknown) States her pain is (units (unknown) date) typical of her past unknown) episodes. Patient states she is been (unknown) (no (unknown) (unknown) Stomach and (units (un known) date) Bowel:? No unknown) abnormally dilated or thickened loop of bowel.? No (unknown) (no (unknown) (unknown) Substance Use (units ( unknown) date) Type: marijuana unknown) (unknown) (no (unknown) (unknown) Surgical History (units (unknown) date) (Reviewed 04/13/22 unknown) @ 09:52 by Mine Harrington DO) (unknown) (no (unknown) (unknown) TECHNIQUE:? (units (un known) date) unknown) (unknown) (no (unknown) (unknown) Temperature (units (un known) date) unknown) (unknown) (no (unknown) (unknown) Temperature (units (un known) date) unknown) (unknown) (no (unknown) (unknown) Temperature 98.0 F (units (unknown) date) 04/13/22 09:33 unknown) (unknown) (no (unknown) (unknown) Temperature 98.0 F (units (unknown) date) unknown) (unknown) (no (unknown) (unknown) This is a (units (unkn own) date) 46-year-old female unknown) with history of cyclic vomiting, polysubstance (unknown) (no (unknown) (unknown) Time Seen by (units (u nknown) date) Provider: 04/13/22 unknown) 09:27 (unknown) (no (unknown) (unknown) Time: 10:45 (units (un known) date) unknown) (unknown) (no (unknown) (unknown) Time: 11:30 (units (un known) date) unknown) (unknown) (no (unknown) (unknown) Total Bilirubin (units (unknown) date) (0.2-1.3) mg/dL unknown) (unknown) (no (unknown) (unknown) Total Bilirubin (units (unknown) date) (0.2-1.3) mg/dL unknown) (unknown) (no (unknown) (unknown) Total Bilirubin (units (unknown) date) 1.4 H (0.2-1.3) unknown) mg/dL (unknown) (no (unknown) (unknown) Total Protein (units ( unknown) date) (6.3-8.2) g/dL unknown) (unknown) (no (unknown) (unknown) Total Protein (units ( unknown) date) (6.3-8.2) g/dL unknown) (unknown) (no (unknown) (unknown) Total Protein 10.5 (units (unknown) date) H (6.3-8.2) g/dL unknown) (unknown) (no (unknown) (unknown) Urinary (units (unkno wn) date) unknown) (unknown) (no (unknown) (unknown) Urine Drug Screen, (units (unknown) date) Rapid Stat unknown) (unknown) (no (unknown) (unknown) VBG Base Excess (units (unknown) date) (0-4) mmol/L unknown) (unknown) (no (unknown) (unknown) VBG Base Excess (units (unknown) date) 22.0 H (0-4) mmol/L unknown) (unknown) (no (unknown) (unknown) VBG Base Excess (units (unknown) date) (0-4) mmol/L unknown) (unknown) (no (unknown) (unknown) VBG HCO3 (23-28) (units (unknown) date) mmol/L unknown) (unknown) (no (unknown) (unknown) VBG HCO3 43 H (units ( unknown) date) (23-28) mmol/L unknown) (unknown) (no (unknown) (unknown) VBG HCO3 (23-28) (units (unknown) date) mmol/L unknown) (unknown) (no (unknown) (unknown) VBG O2 Saturation (units (unknown) date) (70-75) % unknown) (unknown) (no (unknown) (unknown) VBG O2 Saturation (units (unknown) date) 97 H (70-75) % unknown) (unknown) (no (unknown) (unknown) VBG O2 Saturation (units (unknown) date) (70-75) % unknown) (unknown) (no (unknown) (unknown) VBG Total CO2 (units ( unknown) date) (24-29) mmol/L unknown) (unknown) (no (unknown) (unknown) VBG Total CO2 44 H (units (unknown) date) (24-29) mmol/L unknown) (unknown) (no (unknown) (unknown) VBG Total CO2 (units ( unknown) date) (24-29) mmol/L unknown) (unknown) (no (unknown) (unknown) VBG [Venous Blood (units (unknown) date) Gas] Stat unknown) (unknown) (no (unknown) (unknown) VBG pCO2 (45-50) (units (unknown) date) mmHg unknown) (unknown) (no (unknown) (unknown) VBG pCO2 40.7 L (units (unknown) date) (45-50) mmHg unknown) (unknown) (no (unknown) (unknown) VBG pCO2 (45-50) (units (unknown) date) mmHg unknown) (unknown) (no (unknown) (unknown) VBG pH (7.33-7.43) (units (unknown) date) unknown) (unknown) (no (unknown) (unknown) VBG pH 7.63 H (units ( unknown) date) (7.33-7.43) unknown) (unknown) (no (unknown) (unknown) VBG pH (7.33-7.43) (units (unknown) date) unknown) (unknown) (no (unknown) (unknown) VBG pO2 (35-45) (units (unknown) date) mmHg unknown) (unknown) (no (unknown) (unknown) VBG pO2 79 H (units (u nknown) date) (35-45) mmHg unknown) (unknown) (no (unknown) (unknown) VBG pO2 (35-45) (units (unknown) date) mmHg unknown) (unknown) (no (unknown) (unknown) Ventral Wall: ? No (units (unknown) date) hernias.? unknown) (unknown) (no (unknown) (unknown) Vessels:? 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 unknown) Patient presents with complaint of vomiting (unknown) (no (unknown) (unknown) adjustment (units (unk nown) date) unknown) (unknown) (no (unknown) (unknown) alcohol intake (units (unknown) date) frequency: 3 or unknown) more drinks per day (unknown) (no (unknown) (unknown) alcohol intake: (units (unknown) date) current unknown) (unknown) (no (unknown) (unknown) allergies to (units (un known) date) Reglan, unknown) promethazine IV but can tolerate per rectum and latex. She (unknown) (no (unknown) (unknown) amlodipine 5 mg (units (unknown) date) tablet 5 mg PO unknown) DAILY 03/20/22 03/20/22 (unknown) (no (unknown) (unknown) angioedema although (units (unknown) date) she is had 2 unknown) episodes with her oropharynx on her past visits (unknown) (no (unknown) (unknown) are being held and (units (unknown) date) patient is also unknown) receiving hydration. (unknown) (no (unknown) (unknown) are being obtained (units (unknown) date) at this time. No unknown) clear source of infection so antibiotics (unknown) (no (unknown) (unknown) artery near the (units (unknown) date) splenic hilum.. unknown) (unknown) (no (unknown) (unknown) based on this (units ( unknown) date) imaging was unknown) obtained. Plan to continue with hydration, repeat (unknown) (no (unknown) (unknown) bases to the pubic (units (unknown) date) symphysis.? Coronal unknown) and sagittal reformats were performed.? (unknown) (no (unknown) (unknown) bladder normal. (units (unknown) date) unknown) (unknown) (no (unknown) (unknown) bleeding or (units (un known) date) discharge. Patient unknown) states she has not been able to keep down her (unknown) (no (unknown) (unknown) bloody stools. She (units (unknown) date) states no dysuria, unknown) urgency or frequency. No vaginal (unknown) (no (unknown) (unknown) bupropion HCl 100 (units (unknown) date) mg tablet,12 hr 100 unknown) mg PO DAILY 03/20/22 03/20/22 (unknown) (no (unknown) (unknown) changes. 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 (unknown) (no (unknown) (unknown) count, creatinine (units (unknown) date) is once again unknown) elevated and had returned to baseline on past (unknown) (no (unknown) (unknown) cream (units (unkno wn) date) unknown) (unknown) (no (unknown) (unknown) distress. (units (unkn own) date) unknown) (unknown) (no (unknown) (unknown) does use tobacco, (units (unknown) date) states she drinks unknown) 3-5 alcoholic drinks daily and states she (unknown) (no (unknown) (unknown) doing very well (units (unknown) date) after Haldol and unknown) Benadryl IV she is not required any additional (unknown) (no (unknown) (unknown) doses. We did (units ( unknown) date) discuss with unknown) hospitalist she is had angioedema on past (unknown) (no (unknown) (unknown) ducts (units (unkno wn) date) unknown) (unknown) (no (unknown) (unknown) electrolytes, (units ( unknown) date) renal function were unknown) obtained. Fluids, Haldol and Benadryl as (unknown) (no (unknown) (unknown) elevated at 9, CT (units (unknown) date) abdomen pelvis was unknown) obtained secondary to this there is a (unknown) (no (unknown) (unknown) erythema, tonsillar (units (unknown) date) enlargement or unknown) uvular deviation, no obvious swelling of lips (unknown) (no (unknown) (unknown) extremities, full (units (unknown) date) range of motion unknown) (unknown) (no (unknown) (unknown) fluconazole 200 mg (units (unknown) date) tablet 200 mg PO unknown) WEEKLY 4 weeks #4 tabs 03/21/22 (unknown) (no (unknown) (unknown) for the past 3 (units (unknown) date) days. Patient unknown) states this is similar to her prior cyclic (unknown) (no (unknown) (unknown) her prior cyclic (units (unknown) date) vomiting unknown) exacerbations she does continue to use THC she does (unknown) (no (unknown) (unknown) home medications (units (unknown) date) the last couple unknown) days but did try Phenergan suppository this (unknown) (no (unknown) (unknown) hospitalization as (units (unknown) date) well as unknown) hypokalemia, patient isn't having persistent vomiting (unknown) (no (unknown) (unknown) hospitalizations (units (unknown) date) but no symptoms at unknown) this point. Plan for observation, (unknown) (no (unknown) (unknown) household members: (units (unknown) date) spouse unknown) (unknown) (no (unknown) (unknown) today. We (units (unknown) date) did discuss that unknown) she was noted to have angioedema on the last (unknown) (no (unknown) (unknown) hypertrophy, (units (u nknown) date) diffuse ST unknown) depression. (unknown) (no (unknown) (unknown) increased from (units (unknown) date) unknown) (unknown) (no (unknown) (unknown) injury again today (units (unknown) date) and her lactate is unknown) 9. Patient's exam was reassuring but (unknown) (no (unknown) (unknown) is comfortable (units (unknown) date) with this and not unknown) receiving more radiation. Labs including (unknown) (no (unknown) (unknown) lactate and (units (un known) date) replacement of unknown) potassium IV with equal for admission. (unknown) (no (unknown) (unknown) last cocaine use (units (unknown) date) but does not think unknown) it was recently. She is accompanied by her (unknown) (no (unknown) (unknown) latex [LATEX] (units ( unknown) date) Allergy Unknown unknown) Verified 04/13/22 09:42 (unknown) (no (unknown) (unknown) lorazepam 0.5 mg (units (unknown) date) tablet (Ativan) 0.5 unknown) mg PO DAILY PRN nausea and 11/03/21 (unknown) (no (unknown) (unknown) mesenteric (units (unk nown) date) inflammatory unknown) changes. (unknown) (no (unknown) (unknown) metoclopramide (units (unknown) date) AdvReac Unknown unknown) DYSTONIA Verified 04/13/22 09:42 (unknown) (no (unknown) (unknown) miconazole nitrate (units (unknown) date) 2 % topical 1 unknown) applic topical BID #30 grams 03/21/22 (unknown) (no (unknown) (unknown) morning which was (units (unknown) date) not helpful. unknown) Patient states no surgeries. She does have (unknown) (no (unknown) (unknown) movements are (units ( unknown) date) intact, nares are unknown) clear, Throat is clear without any exudates, (unknown) (no (unknown) (unknown) not show acute (units (unknown) date) change. Patient and unknown) I discussed her findings so far. She is (unknown) (no (unknown) (unknown) of mA and/or kV (units (unknown) date) according to unknown) patient size.? (unknown) (no (unknown) (unknown) ondansetron 4 mg (units (unknown) date) disintegrating 4 mg unknown) PO Q8H PRN nausea and 07/28/19 (unknown) (no (unknown) (unknown) ondansetron 8 mg (units (unknown) date) disintegrating 8 mg unknown) PO TID PRN Nausea 09/18/19 03/20/22 (unknown) (no (unknown) (unknown) patient has often (units (unknown) date) responded well to unknown) these. Patient's labs showed normal white (unknown) (no (unknown) (unknown) pericolonic or (units (unknown) date) unknown) (unknown) (no (unknown) (unknown) potassium chloride (units (unknown) date) 20 mEq 20 meq PO unknown) DAILY #30 tabs 03/21/22 (unknown) (no (unknown) (unknown) promethazine (units (u nknown) date) [PROMETHAZINE] unknown) Allergy Mild ERYTHEMA Verified 04/13/22 09:42 (unknown) (no (unknown) (unknown) radiation dose (units (unknown) date) reduction, the unknown) following was used:? automated exposure control, (unknown) (no (unknown) (unknown) rigidity, no (units (u nknown) date) masses noted, no unknown) hepatosplenomegaly, no distention. No bruit. 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 Her unknown) was not in the room during this discussion (unknown) (no (unknown) (unknown) stooling regularly (units (unknown) date) with no diarrhea or unknown) constipation and denies any black or (unknown) (no (unknown) (unknown) sumatriptan 5 (units ( unknown) date) mg/actuation nasal unknown) 5 mg intranasal Q2-4H PRN migraine 06/04/21 (unknown) (no (unknown) (unknown) sustained-release (units (unknown) date) unknown) (unknown) (no (unknown) (unknown) symmetrically, no (units (unknown) date) tachypnea accessory unknown) muscle use. (unknown) (no (unknown) (unknown) symptoms (units (unkno wn) date) currently, lactate unknown) is improved to 3 after fluids. Patient has been (unknown) (no (unknown) (unknown) tablet (units (unkno wn) date) unknown) (unknown) (no (unknown) (unknown) tablet vomiting (units (unknown) date) #10 tabs unknown) (unknown) (no (unknown) (unknown) tablet,extended (units (unknown) date) release unknown) (unknown) (no (unknown) (unknown) the lung (units (unkno wn) date) unknown) (unknown) (no (unknown) (unknown) tobacco type: (units ( unknown) date) vaping unknown) (unknown) (no (unknown) (unknown) use cocaine (units (un known) date) intermittently. She unknown) is not currently having any symptoms of (unknown) (no (unknown) (unknown) uses THC (units (unkno wn) date) intermittently as unknown) well as cocaine. Patient states she is unsure of her (unknown) (no (unknown) (unknown) vaccination. She (units (unknown) date) had testing sent unknown) for hereditary angioedema but does not know (unknown) (no (unknown) (unknown) vomiting episodes (units (unknown) date) in the past. She unknown) denies fevers. She states she is been (unknown) (no (unknown) (unknown) vomiting up (units (un known) date) everything she unknown) tries to put in her stomach, denies any hemoptysis. (unknown) (no (unknown) (unknown) what the results (units (unknown) date) of those were. unknown) (unknown) (no (unknown) (unknown) will also update (units (unknown) date) him. She is unknown) receiving IV potassium, lactate and blood cultures (unknown) (no (unknown) (unknown) work was reviewed (units (unknown) date) complement testing unknown) was sent. Patient states symptoms are very Result panel 64 (unknown) (no date) (unknown) (unknown) 1.3 mmol/L (unkn own) Result panel 65 (unknown) (no (unknown) (unknown) (no value) (units (unk nown) date) unknown) (unknown) (no (unknown) (unknown) (no value) (units (unk nown) date) unknown) (unknown) (no (unknown) (unknown) Date of Service: (units (unknown) date) 04/13/22 unknown) (unknown) (no (unknown) (unknown) (no value) (units (unk nown) date) unknown) (unknown) (no (unknown) (unknown) - (units (unkno wn) date) unknown) (unknown) (no (unknown) (unknown) 04/13/22 09:20 (units (unknown) date) unknown) (unknown) (no (unknown) (unknown) ABLE TO (units (unkno wn) date) unknown) (unknown) (no (unknown) (unknown) Allergies (units (unkn own) date) unknown) (unknown) (no (unknown) (unknown) History + (units (unkn own) date) Physical Report unknown) (unknown) (no (unknown) (unknown) Home Medications (units (unknown) date) unknown) (unknown) (no (unknown) (unknown) [facility] (units (unknown) date) [address] unknown) [place] [address] (unknown) (no (unknown) (unknown) Laboratory (units (unk nown) date) Results - last 24 unknown) hr (unknown) (no (unknown) (unknown) PT STATES (units (unkn own) date) unknown) (unknown) (no (unknown) (unknown) [facility] (units (unkno wn) date) unknown) (unknown) (no (unknown) (unknown) TO IV SITE (units (unk nown) date) unknown) (unknown) (no (unknown) (unknown) methamphetamine (units (unknown) date) unknown) (unknown) (no (unknown) (unknown) (no value) (units (unk nown) date) unknown) (unknown) (no (unknown) (unknown) 04/13/22 04/13/22 (units (unknown) date) unknown) (unknown) (no (unknown) (unknown) 04/13/22 04/13/22 (units (unknown) date) 04/13/22 unknown) (unknown) (no (unknown) (unknown) 09:20 09:20 09:40 (units (unknown) date) unknown) (unknown) (no (unknown) (unknown) 09:40 09:55 11:01 (units (unknown) date) unknown) (unknown) (no (unknown) (unknown) 11:20 14:35 (units (un known) date) unknown) (unknown) (no (unknown) (unknown) 04/13/22 (units (unkno wn) date) unknown) (unknown) (no (unknown) (unknown) Medication (units (unk nown) date) Instructions unknown) Recorded Confirmed Type (unknown) (no (unknown) (unknown) vomiting #10 tabs (units (unknown) date) unknown) (unknown) (no (unknown) (unknown) ([place] (units (unkno wn) date) islander?) female, unknown) very lethargic and diaphoretic, has completely (unknown) (no (unknown) (unknown) (past 8 hours): (units (unknown) date) unknown) (unknown) (no (unknown) (unknown) 03/20/22 Rx (units (un known) date) unknown) (unknown) (no (unknown) (unknown) 09:33 04/13/22 (units (unknown) date) unknown) (unknown) (no (unknown) (unknown) 09:36 04/13/22 (units (unknown) date) unknown) (unknown) (no (unknown) (unknown) 10:18 (units (unkno wn) date) unknown) (unknown) (no (unknown) (unknown) 10:30 04/13/22 (units (unknown) date) unknown) (unknown) (no (unknown) (unknown) 11:00 (units (unkno wn) date) unknown) (unknown) (no (unknown) (unknown) 11:00 04/13/22 (units (unknown) date) unknown) (unknown) (no (unknown) (unknown) 14:30 (units (unkno wn) date) unknown) (unknown) (no (unknown) (unknown) [id number] (units (unkno wn) date) unknown) (unknown) (no (unknown) (unknown) ALT (units (unkno wn) date) unknown) (unknown) (no (unknown) (unknown) ALT (units (unkno wn) date) unknown) (unknown) (no (unknown) (unknown) ALT 35 H (units (unkno wn) date) unknown) (unknown) (no (unknown) (unknown) AST (units (unkno wn) date) unknown) (unknown) (no (unknown) (unknown) AST (units (unkno wn) date) unknown) (unknown) (no (unknown) (unknown) AST 36 (units (unkno wn) date) unknown) (unknown) (no (unknown) (unknown) Abd: soft, (units (unk nown) date) non-tender, unknown) normoactive BTs (unknown) (no (unknown) (unknown) Abscess (units (unkno wn) date) unknown) (unknown) (no (unknown) (unknown) Age/Sex: 46 / F (units (unknown) date) unknown) (unknown) (no (unknown) (unknown) Albumin (units (unkno wn) date) unknown) (unknown) (no (unknown) (unknown) Albumin (units (unkno wn) date) unknown) (unknown) (no (unknown) (unknown) Albumin 5.6 H (units ( unknown) date) unknown) (unknown) (no (unknown) (unknown) Albumin/Globulin (units (unknown) date) Ratio unknown) (unknown) (no (unknown) (unknown) Albumin/Globulin (units (unknown) date) Ratio unknown) (unknown) (no (unknown) (unknown) Albumin/Globulin (units (unknown) date) Ratio 1.1 unknown) (unknown) (no (unknown) (unknown) Alkaline (units (unkno wn) date) Phosphatase unknown) (unknown) (no (unknown) (unknown) Alkaline (units (unkno wn) date) Phosphatase unknown) (unknown) (no (unknown) (unknown) Alkaline (units (unkno wn) date) Phosphatase 96 unknown) (unknown) (no (unknown) (unknown) Allergy/AdvReac (units (unknown) date) Type Severity unknown) Reaction Status Date / Time (unknown) (no (unknown) (unknown) Assessment + Plan (units (unknown) date) unknown) (unknown) (no (unknown) (unknown) BUN (units (unkno wn) date) unknown) (unknown) (no (unknown) (unknown) BUN (units (unkno wn) date) unknown) (unknown) (no (unknown) (unknown) BUN 31 H (units (unkno wn) date) unknown) (unknown) (no (unknown) (unknown) BUN/Creatinine (units (unknown) date) Ratio unknown) (unknown) (no (unknown) (unknown) BUN/Creatinine (units (unknown) date) Ratio unknown) (unknown) (no (unknown) (unknown) BUN/Creatinine (units (unknown) date) Ratio 18.0 unknown) (unknown) (no (unknown) (unknown) Baso # (Auto) (units ( unknown) date) unknown) (unknown) (no (unknown) (unknown) Baso # (Auto) (units ( unknown) date) unknown) (unknown) (no (unknown) (unknown) Baso # (Auto) 0 (units (unknown) date) unknown) (unknown) (no (unknown) (unknown) Baso % (Auto) (units ( unknown) date) unknown) (unknown) (no (unknown) (unknown) Baso % (Auto) (units ( unknown) date) unknown) (unknown) (no (unknown) (unknown) Baso % (Auto) 0.5 (units (unknown) date) unknown) (unknown) (no (unknown) (unknown) Been Physically (units (unknown) date) Hurt or No unknown) (unknown) (no (unknown) (unknown) Blood Pressure (units (unknown) date) 125/75 unknown) (unknown) (no (unknown) (unknown) Blood Pressure (units (unknown) date) 116/82 126/80 unknown) (unknown) (no (unknown) (unknown) Blood Pressure (units (unknown) date) 151/93 H 151/93 H unknown) (unknown) (no (unknown) (unknown) CV: RRR, no (units (un known) date) murmur or rubs unknown) (unknown) (no (unknown) (unknown) Calcium (units (unkno wn) date) unknown) (unknown) (no (unknown) (unknown) Calcium (units (unkno wn) date) unknown) (unknown) (no (unknown) (unknown) Calcium 10.4 H (units (unknown) date) unknown) (unknown) (no (unknown) (unknown) Carbon Dioxide (units (unknown) date) unknown) (unknown) (no (unknown) (unknown) Carbon Dioxide (units (unknown) date) unknown) (unknown) (no (unknown) (unknown) Carbon Dioxide 32 (units (unknown) date) unknown) (unknown) (no (unknown) (unknown) Chief complaint: (units (unknown) date) cyclical vomiting unknown) (unknown) (no (unknown) (unknown) Chloride (units (unkno wn) date) unknown) (unknown) (no (unknown) (unknown) Chloride (units (unkno wn) date) unknown) (unknown) (no (unknown) (unknown) Chloride 82 L (units ( unknown) date) unknown) (unknown) (no (unknown) (unknown) Chronic abdominal (units (unknown) date) pain unknown) (unknown) (no (unknown) (unknown) Creatinine (units (unk nown) date) unknown) (unknown) (no (unknown) (unknown) Creatinine (units (unk nown) date) unknown) (unknown) (no (unknown) (unknown) Creatinine 1.72 H (units (unknown) date) unknown) (unknown) (no (unknown) (unknown) Critical Care (units ( unknown) date) time: unknown) (unknown) (no (unknown) (unknown) Cyclic vomiting (units (unknown) date) syndrome unknown) (unknown) (no (unknown) (unknown) : 1975 (units (unknown) date) Acct:[id number] unknown) (unknown) (no (unknown) (unknown) Daughter (units (unkno wn) date) Angio-edema unknown) (unknown) (no (unknown) (unknown) Environment (units (un known) date) unknown) (unknown) (no (unknown) (unknown) Eos # (Auto) (units (u nknown) date) unknown) (unknown) (no (unknown) (unknown) Eos # (Auto) (units (u nknown) date) unknown) (unknown) (no (unknown) (unknown) Eos # (Auto) 0 (units (unknown) date) unknown) (unknown) (no (unknown) (unknown) Eos % (Auto) (units (u nknown) date) unknown) (unknown) (no (unknown) (unknown) Eos % (Auto) (units (u nknown) date) unknown) (unknown) (no (unknown) (unknown) Eos % (Auto) 0.1 (units (unknown) date) L unknown) (unknown) (no (unknown) (unknown) Estimated GFR (units ( unknown) date) unknown) (unknown) (no (unknown) (unknown) Estimated GFR (units ( unknown) date) unknown) (unknown) (no (unknown) (unknown) Estimated GFR 36 (units (unknown) date) L unknown) (unknown) (no (unknown) (unknown) Ethyl Alcohol (units ( unknown) date) unknown) (unknown) (no (unknown) (unknown) Ethyl Alcohol (units ( unknown) date) unknown) (unknown) (no (unknown) (unknown) Ethyl Alcohol < (units (unknown) date) 10 unknown) (unknown) (no (unknown) (unknown) Exam (units (unkno wn) date) unknown) (unknown) (no (unknown) (unknown) Exam Narrative: (units (unknown) date) unknown) (unknown) (no (unknown) (unknown) Extremities: (units (u nknown) date) moves all 4 unknown) extremities, is ambulatory, negative Eun?s sign (unknown) (no (unknown) (unknown) Family + Social (units (unknown) date) History unknown) (unknown) (no (unknown) (unknown) Family History (units (unknown) date) (Reviewed 04/13/22 unknown) @ 09:52 by Mine Harrington DO) (unknown) (no (unknown) (unknown) Family history of (units (unknown) date) angioedema unknown) (unknown) (no (unknown) (unknown) Father (units (unkno wn) date) Hypertension unknown) (unknown) (no (unknown) (unknown) Feels Safe in (units ( unknown) date) Current Yes unknown) (unknown) (no (unknown) (unknown) Gen: Alert, (units (un known) date) oriented, thin 46 unknown) y.o. appears to be of mixed ethnic heritage (unknown) (no (unknown) (unknown) Globulin (units (unkno wn) date) unknown) (unknown) (no (unknown) (unknown) Globulin (units (unkno wn) date) unknown) (unknown) (no (unknown) (unknown) Globulin 4.9 H (units (unknown) date) unknown) (unknown) (no (unknown) (unknown) Glucose (units (unkno wn) date) unknown) (unknown) (no (unknown) (unknown) Glucose (units (unkno wn) date) unknown) (unknown) (no (unknown) (unknown) Glucose 134 H (units ( unknown) date) unknown) (unknown) (no (unknown) (unknown) HEENT: (units (unkno wn) date) normocephalic, unknown) atraumatic, conjunctiva clear, sclera non-icteric, oral (unknown) (no (unknown) (unknown) Hct (units (unkno wn) date) unknown) (unknown) (no (unknown) (unknown) Hct (units (unkno wn) date) unknown) (unknown) (no (unknown) (unknown) Hct 44.2 (units (unkno wn) date) unknown) (unknown) (no (unknown) (unknown) Hgb (units (unkno wn) date) unknown) (unknown) (no (unknown) (unknown) Hgb (units (unkno wn) date) unknown) (unknown) (no (unknown) (unknown) Hgb 15.4 (units (unkn own) date) unknown) (unknown) (no (unknown) (unknown) History of (units (unk nown) date) Present Illness unknown) (unknown) (no (unknown) (unknown) Home Medications (units (unknown) date) and Allergies unknown) (unknown) (no (unknown) (unknown) Hx of (units (unkno wn) date) appendectomy unknown) (unknown) (no (unknown) (unknown) Hx of (units (unkno wn) date) cholecystectomy unknown) (unknown) (no (unknown) (unknown) I spent a total (units (unknown) date) of [] minutes of unknown) critical care time on this patient's care (unknown) (no (unknown) (unknown) Ketones (units (unkno wn) date) unknown) (unknown) (no (unknown) (unknown) Ketones (units (unkno wn) date) unknown) (unknown) (no (unknown) (unknown) Ketones 0.20 (units (u nknown) date) unknown) (unknown) (no (unknown) (unknown) Labs (units (unkno wn) date) unknown) (unknown) (no (unknown) (unknown) Labs: (units (unkno wn) date) unknown) (unknown) (no (unknown) (unknown) Lactate (units (unkno wn) date) unknown) (unknown) (no (unknown) (unknown) Lactate 9.7 H* (units (unknown) date) unknown) (unknown) (no (unknown) (unknown) Lactate 3.0 H 1.3 (units (unknown) date) unknown) (unknown) (no (unknown) (unknown) Lipase (units (unkno wn) date) unknown) (unknown) (no (unknown) (unknown) Lipase (units (unkno wn) date) unknown) (unknown) (no (unknown) (unknown) Lipase 96 (units (unkn own) date) unknown) (unknown) (no (unknown) (unknown) Lymph # (Auto) (units (unknown) date) unknown) (unknown) (no (unknown) (unknown) Lymph # (Auto) (units (unknown) date) unknown) (unknown) (no (unknown) (unknown) Lymph # (Auto) (units (unknown) date) 1300 unknown) (unknown) (no (unknown) (unknown) Lymph % (Auto) (units (unknown) date) unknown) (unknown) (no (unknown) (unknown) Lymph % (Auto) (units (unknown) date) unknown) (unknown) (no (unknown) (unknown) Lymph % (Auto) (units (unknown) date) 20.9 L unknown) (unknown) (no (unknown) (unknown) MCH (units (unkno wn) date) unknown) (unknown) (no (unknown) (unknown) MCH (units (unkno wn) date) unknown) (unknown) (no (unknown) (unknown) MCH 32.4 (units (unkno wn) date) unknown) (unknown) (no (unknown) (unknown) MCHC (units (unkno wn) date) unknown) (unknown) (no (unknown) (unknown) MCHC (units (unkno wn) date) unknown) (unknown) (no (unknown) (unknown) MCHC 35.0 (units (unkn own) date) unknown) (unknown) (no (unknown) (unknown) MCV (units (unkno wn) date) unknown) (unknown) (no (unknown) (unknown) MCV (units (unkno wn) date) unknown) (unknown) (no (unknown) (unknown) MCV 92.6 (units (unkno wn) date) unknown) (unknown) (no (unknown) (unknown) 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 (unknown) (no (unknown) (unknown) Marijuana use, (units (unknown) date) continuous unknown) (unknown) (no (unknown) (unknown) Medical History (units (unknown) date) (Reviewed 04/13/22 unknown) @ 09:52 by Mine Harrington DO) (unknown) (no (unknown) (unknown) Meds (units (unkno wn) date) unknown) (unknown) (no (unknown) (unknown) Centre # (Auto) (units ( unknown) date) unknown) (unknown) (no (unknown) (unknown) Centre # (Auto) (units ( unknown) date) unknown) (unknown) (no (unknown) (unknown) Centre # (Auto) 500 (units (unknown) date) unknown) (unknown) (no (unknown) (unknown) Centre % (Auto) (units ( unknown) date) unknown) (unknown) (no (unknown) (unknown) Centre % (Auto) (units ( unknown) date) unknown) (unknown) (no (unknown) (unknown) Centre % (Auto) 8.7 (units (unknown) date) unknown) (unknown) (no (unknown) (unknown) Mother Diabetes (units (unknown) date) mellitus unknown) (unknown) (no (unknown) (unknown) NGen: Alert, (units (u nknown) date) oriented, thin 46 unknown) y.o. appears to be of mixed ethnic heritage (unknown) (no (unknown) (unknown) Narrative (units (unkn own) date) unknown) (unknown) (no (unknown) (unknown) Neck: supple, (units ( unknown) date) full ROM, no JVD, unknown) trachea is midline (unknown) (no (unknown) (unknown) Neuro: Unable to (units (unknown) date) stay awake while unknown) speaking (unknown) (no (unknown) (unknown) Neuro: Unable to (units (unknown) date) stay aweck: unknown) supple, full ROM, no JVD, trachea is midline (unknown) (no (unknown) (unknown) Neut # (Auto) (units ( unknown) date) unknown) (unknown) (no (unknown) (unknown) Neut # (Auto) (units ( unknown) date) unknown) (unknown) (no (unknown) (unknown) Neut # (Auto) (units ( unknown) date) 4300 unknown) (unknown) (no (unknown) (unknown) Neut % (Auto) (units ( unknown) date) unknown) (unknown) (no (unknown) (unknown) Neut % (Auto) (units ( unknown) date) unknown) (unknown) (no (unknown) (unknown) Neut % (Auto) (units ( unknown) date) 69.8 unknown) (unknown) (no (unknown) (unknown) Objective (units (unkn own) date) unknown) (unknown) (no (unknown) (unknown) Other Colon (units (un known) date) cancer unknown) (unknown) (no (unknown) (unknown) Oxygen Delivery (units (unknown) date) Method unknown) (unknown) (no (unknown) (unknown) Oxygen Delivery (units (unknown) date) Method unknown) (unknown) (no (unknown) (unknown) Oxygen Delivery (units (unknown) date) Method Room Air unknown) (unknown) (no (unknown) (unknown) Oxygen Delivery (units (unknown) date) Method Room Air unknown) Room Air (unknown) (no (unknown) (unknown) Oxygen Flow Rate (units (unknown) date) unknown) (unknown) (no (unknown) (unknown) Oxygen Flow Rate (units (unknown) date) 0 unknown) (unknown) (no (unknown) (unknown) Oxygen Flow Rate (units (unknown) date) 0 unknown) (unknown) (no (unknown) (unknown) Pancreatitis (units (u nknown) date) unknown) (unknown) (no (unknown) (unknown) Patient History (units (unknown) date) unknown) (unknown) (no (unknown) (unknown) Patient: (units (unkno wn) date) Dameon Castro MR#: unknown) [id number] (unknown) (no (unknown) (unknown) Plt Count (units (unkn own) date) unknown) (unknown) (no (unknown) (unknown) Plt Count (units (unkn own) date) unknown) (unknown) (no (unknown) (unknown) Plt Count 284 (units ( unknown) date) unknown) (unknown) (no (unknown) (unknown) Potassium (units (unkn own) date) unknown) (unknown) (no (unknown) (unknown) Potassium (units (unkn own) date) unknown) (unknown) (no (unknown) (unknown) Potassium 2.7 L* (units (unknown) date) unknown) (unknown) (no (unknown) (unknown) Provider: (units (unkn own) date) Ernestina Jara unknown) (unknown) (no (unknown) (unknown) Psyche: mildly (units (unknown) date) agitated when unknown) awakened. (unknown) (no (unknown) (unknown) Pulse Oximetry 96 (units (unknown) date) unknown) (unknown) (no (unknown) (unknown) Pulse Oximetry 95 (units (unknown) date) 96 unknown) (unknown) (no (unknown) (unknown) Pulse Oximetry 98 (units (unknown) date) 100 96 unknown) (unknown) (no (unknown) (unknown) Pulse Rate 91 H (units (unknown) date) unknown) (unknown) (no (unknown) (unknown) Pulse Rate 79 74 (units (unknown) date) unknown) (unknown) (no (unknown) (unknown) Pulse Rate 90 98 (units (unknown) date) H 89 unknown) (unknown) (no (unknown) (unknown) RBC (units (unkno wn) date) unknown) (unknown) (no (unknown) (unknown) RBC (units (unkno wn) date) unknown) (unknown) (no (unknown) (unknown) RBC 4.77 (units (unkno wn) date) unknown) (unknown) (no (unknown) (unknown) RDW (units (unkno wn) date) unknown) (unknown) (no (unknown) (unknown) RDW (units (unkno wn) date) unknown) (unknown) (no (unknown) (unknown) RDW 13.8 (units (unkno wn) date) unknown) (unknown) (no (unknown) (unknown) Resp: Lungs CTA, (units (unknown) date) non-labored unknown) breathing (unknown) (no (unknown) (unknown) Respiratory Rate (units (unknown) date) unknown) (unknown) (no (unknown) (unknown) Respiratory Rate (units (unknown) date) 16 unknown) (unknown) (no (unknown) (unknown) Respiratory Rate (units (unknown) date) 24 22 unknown) (unknown) (no (unknown) (unknown) Result Diagrams: (units (unknown) date) unknown) (unknown) (no (unknown) (unknown) SARS-CoV-2 (PCR) (units (unknown) date) unknown) (unknown) (no (unknown) (unknown) SARS-CoV-2 (PCR) (units (unknown) date) unknown) (unknown) (no (unknown) (unknown) SARS-CoV-2 (PCR) (units (unknown) date) Negative unknown) (unknown) (no (unknown) (unknown) Safety + (units (unkno wn) date) Behavioral: unknown) (unknown) (no (unknown) (unknown) Signed By: (units (unk nown) date) unknown) (unknown) (no (unknown) (unknown) Skin: no lesions (units (unknown) date) or rashes, dry and unknown) intact (unknown) (no (unknown) (unknown) Smoking Status (units (unknown) date) Current every day unknown) smoker (unknown) (no (unknown) (unknown) Social History: (units (unknown) date) unknown) (unknown) (no (unknown) (unknown) Sodium (units (unkno wn) date) unknown) (unknown) (no (unknown) (unknown) Sodium (units (unkno wn) date) unknown) (unknown) (no (unknown) (unknown) Sodium 138 (units (unk nown) date) unknown) (unknown) (no (unknown) (unknown) Substance Use (units ( unknown) date) Type former unknown) substance user,marijuana,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, (unknown) (no (unknown) (unknown) Surgical History (units (unknown) date) (Reviewed 04/13/22 unknown) @ 09:52 by Mine Harrington DO) (unknown) (no (unknown) (unknown) Temperature (units (un known) date) unknown) (unknown) (no (unknown) (unknown) Temperature 97.8 (units (unknown) date) F unknown) (unknown) (no (unknown) (unknown) Temperature 98.0 (units (unknown) date) F unknown) (unknown) (no (unknown) (unknown) Threatened By a (units (unknown) date) Person unknown) (unknown) (no (unknown) (unknown) Time Spent With (units (unknown) date) Patient unknown) (unknown) (no (unknown) (unknown) Tobacco + (units (unkn own) date) Substance use: unknown) (unknown) (no (unknown) (unknown) Tobacco type (units (u nknown) date) e-cigarettes unknown) (unknown) (no (unknown) (unknown) Total Bilirubin (units (unknown) date) unknown) (unknown) (no (unknown) (unknown) Total Bilirubin (units (unknown) date) unknown) (unknown) (no (unknown) (unknown) Total Bilirubin (units (unknown) date) 1.4 H unknown) (unknown) (no (unknown) (unknown) Total Protein (units ( unknown) date) unknown) (unknown) (no (unknown) (unknown) Total Protein (units ( unknown) date) unknown) (unknown) (no (unknown) (unknown) Total Protein (units ( unknown) date) 10.5 H unknown) (unknown) (no (unknown) (unknown) VBG Base Excess (units (unknown) date) unknown) (unknown) (no (unknown) (unknown) VBG Base Excess (units (unknown) date) unknown) (unknown) (no (unknown) (unknown) VBG Base Excess (units (unknown) date) 22.0 H unknown) (unknown) (no (unknown) (unknown) VBG HCO3 (units () date) unknown) (unknown) (no (unknown) (unknown) VBG HCO3 (units () ) unknown) (unknown) (no (unknown) (unknown) VBG HCO3 43 H (units ( unknown) date) unknown) (unknown) (no (unknown) (unknown) VBG O2 Saturation (units (unknown) date) unknown) (unknown) (no (unknown) (unknown) VBG O2 Saturation (units (unknown) date) unknown) (unknown) (no (unknown) (unknown) VBG O2 Saturation (units (unknown) date) 97 H unknown) (unknown) (no (unknown) (unknown) VBG Total CO2 (units ( unknown) date) unknown) (unknown) (no (unknown) (unknown) VBG Total CO2 (units ( unknown) date) unknown) (unknown) (no (unknown) (unknown) VBG Total CO2 44 (units (unknown) date) H unknown) (unknown) (no (unknown) (unknown) VBG pCO2 (units () date) unknown) (unknown) (no (unknown) (unknown) VBG pCO2 (units () date) unknown) (unknown) (no (unknown) (unknown) VBG pCO2 40.7 L (units (unknown) date) unknown) (unknown) (no (unknown) (unknown) VBG pH (units () ) unknown) (unknown) (no (unknown) (unknown) VBG pH (units (unkno wn) date) unknown) (unknown) (no (unknown) (unknown) VBG pH 7.63 H (units ( unknown) date) unknown) (unknown) (no (unknown) (unknown) VBG pO2 (units (unkno wn) date) unknown) (unknown) (no (unknown) (unknown) VBG pO2 (units (unkno wn) date) unknown) (unknown) (no (unknown) (unknown) VBG pO2 79 H (units (u nknown) date) unknown) (unknown) (no (unknown) (unknown) Vital Signs (units (un known) date) unknown) (unknown) (no (unknown) (unknown) WBC (units (unkno wn) date) unknown) (unknown) (no (unknown) (unknown) WBC (units (unkno wn) date) unknown) (unknown) (no (unknown) (unknown) WBC 6.2 (units (unkno wn) date) unknown) (unknown) (no (unknown) (unknown) [Embedded Image (units (unknown) date) Not Available] unknown) (unknown) (no (unknown) (unknown) [METOCLOPRAMIDE] (units (unknown) date) unknown) (unknown) (no (unknown) (unknown) alcohol intake (units (unknown) date) current unknown) (unknown) (no (unknown) (unknown) alcohol intake (units (unknown) date) frequency 3 or unknown) more drinks per day (unknown) (no (unknown) (unknown) amlodipine 5 mg (units (unknown) date) tablet 5 mg PO unknown) DAILY 03/20/22 03/20/22 History (unknown) (no (unknown) (unknown) bupropion HCl 100 (units (unknown) date) mg tablet,12 hr unknown) 100 mg PO DAILY 03/20/22 03/20/22 History (unknown) (no (unknown) (unknown) cream (units (unkno wn) date) unknown) (unknown) (no (unknown) (unknown) fluconazole 200 (units (unknown) date) mg tablet 200 mg unknown) PO WEEKLY 4 weeks #4 tabs 03/21/22 Rx (unknown) (no (unknown) (unknown) household members (units (unknown) date) spouse unknown) (unknown) (no (unknown) (unknown) latex [LATEX] (units ( unknown) date) Allergy Unknown unknown) Verified 04/13/22 09:42 (unknown) (no (unknown) (unknown) lorazepam 0.5 mg (units (unknown) date) tablet (Ativan) unknown) 0.5 mg PO DAILY PRN nausea and 11/03/21 (unknown) (no (unknown) (unknown) metoclopramide (units (unknown) date) AdvReac Unknown unknown) DYSTONIA Verified 04/13/22 09:42 (unknown) (no (unknown) (unknown) miconazole (units (unk nown) date) nitrate 2 % unknown) topical 1 applic topical BID #30 grams 03/21/22 Rx (unknown) (no (unknown) (unknown) mucosa pink and (units (unknown) date) moist unknown) (unknown) (no (unknown) (unknown) ondansetron 4 mg (units (unknown) date) disintegrating 4 unknown) mg PO Q8H PRN nausea and 07/28/19 08/26/21 Rx (unknown) (no (unknown) (unknown) ondansetron 8 mg (units (unknown) date) disintegrating 8 unknown) mg PO TID PRN Nausea 09/18/19 03/20/22 History (unknown) (no (unknown) (unknown) potassium (units (unkn own) date) chloride 20 mEq 20 unknown) meq PO DAILY #30 tabs 03/21/22 Rx (unknown) (no (unknown) (unknown) promethazine (units (u nknown) date) [PROMETHAZINE] unknown) Allergy Mild ERYTHEMA Verified 04/13/22 09:42 (unknown) (no (unknown) (unknown) soaked the upper (units (unknown) date) portion of her unknown) gown. (unknown) (no (unknown) (unknown) spray headache #1 (units (unknown) date) ea unknown) (unknown) (no (unknown) (unknown) sumatriptan 5 (units ( unknown) date) mg/actuation nasal unknown) 5 mg intranasal Q2-4H PRN migraine 06/04/21 (unknown) (no (unknown) (unknown) sustained-release (units (unknown) date) unknown) (unknown) (no (unknown) (unknown) tablet (units (unkno wn) date) unknown) (unknown) (no (unknown) (unknown) tablet vomiting (units (unknown) date) #10 tabs unknown) (unknown) (no (unknown) (unknown) tablet,extended (units (unknown) date) release unknown) (unknown) (no (unknown) (unknown) today; this time (units (unknown) date) is exclusive of unknown) procedural time. Result panel 66 (unknown) (no (unknown) (unknown) (no value) (units (unk nown) date) unknown) (unknown) (no (unknown) (unknown) (no value) (units (unk nown) date) unknown) (unknown) (no (unknown) (unknown) Date of Service: (units (unknown) date) 04/13/22 unknown) (unknown) (no (unknown) (unknown) (no value) (units (unk nown) date) unknown) (unknown) (no (unknown) (unknown) - (units (unkno wn) date) unknown) (unknown) (no (unknown) (unknown) 04/13/22 09:20 (units (unknown) date) unknown) (unknown) (no (unknown) (unknown) ABLE TO (units (unkno wn) date) unknown) (unknown) (no (unknown) (unknown) Allergies (units (unkn own) date) unknown) (unknown) (no (unknown) (unknown) History + (units (unkn own) date) Physical Report unknown) (unknown) (no (unknown) (unknown) Home Medications (units (unknown) date) unknown) (unknown) (no (unknown) (unknown) [facility] (units (unknown) date) [address] unknown) [place] [address] (unknown) (no (unknown) (unknown) Laboratory (units (unk nown) date) Results - last 24 unknown) hr (unknown) (no (unknown) (unknown) PT STATES (units (unkn own) date) unknown) (unknown) (no (unknown) (unknown) [facility] (units (unkno wn) date) unknown) (unknown) (no (unknown) (unknown) TO IV SITE (units (unk nown) date) unknown) (unknown) (no (unknown) (unknown) methamphetamine (units (unknown) date) unknown) (unknown) (no (unknown) (unknown) (no value) (units (unk nown) date) unknown) (unknown) (no (unknown) (unknown) 04/13/22 04/13/22 (units (unknown) date) unknown) (unknown) (no (unknown) (unknown) 04/13/22 04/13/22 (units (unknown) date) 04/13/22 unknown) (unknown) (no (unknown) (unknown) 09:20 09:20 09:40 (units (unknown) date) unknown) (unknown) (no (unknown) (unknown) 09:40 09:55 11:01 (units (unknown) date) unknown) (unknown) (no (unknown) (unknown) 11:20 14:35 (units (un known) date) unknown) (unknown) (no (unknown) (unknown) 04/13/22 (units (unkno wn) date) unknown) (unknown) (no (unknown) (unknown) Medication (units (unk nown) date) Instructions unknown) Recorded Confirmed Type (unknown) (no (unknown) (unknown) vomiting #10 tabs (units (unknown) date) unknown) (unknown) (no (unknown) (unknown) (past 8 hours): (units (unknown) date) unknown) (unknown) (no (unknown) (unknown) 03/20/22 Rx (units (un known) date) unknown) (unknown) (no (unknown) (unknown) 09:33 04/13/22 (units (unknown) date) unknown) (unknown) (no (unknown) (unknown) 09:36 04/13/22 (units (unknown) date) unknown) (unknown) (no (unknown) (unknown) 10:18 (units (unkno wn) date) unknown) (unknown) (no (unknown) (unknown) 10:30 04/13/22 (units (unknown) date) unknown) (unknown) (no (unknown) (unknown) 11:00 (units (unkno wn) date) unknown) (unknown) (no (unknown) (unknown) 11:00 04/13/22 (units (unknown) date) unknown) (unknown) (no (unknown) (unknown) 14:30 (units (unkno wn) date) unknown) (unknown) (no (unknown) (unknown) [id number] (units (unkno wn) date) unknown) (unknown) (no (unknown) (unknown) ALT (units (unkno wn) date) unknown) (unknown) (no (unknown) (unknown) ALT (units (unkno wn) date) unknown) (unknown) (no (unknown) (unknown) ALT 35 H (units (unkno wn) date) unknown) (unknown) (no (unknown) (unknown) AST (units (unkno wn) date) unknown) (unknown) (no (unknown) (unknown) AST (units (unkno wn) date) unknown) (unknown) (no (unknown) (unknown) AST 36 (units (unkno wn) date) unknown) (unknown) (no (unknown) (unknown) Abd: soft, (units (unk nown) date) epigastric unknown) tenderness, normal bowel sounds (unknown) (no (unknown) (unknown) Abscess (units (unkno wn) date) unknown) (unknown) (no (unknown) (unknown) Age/Sex: 46 / F (units (unknown) date) unknown) (unknown) (no (unknown) (unknown) Albumin (units (unkno wn) date) unknown) (unknown) (no (unknown) (unknown) Albumin (units (unkno wn) date) unknown) (unknown) (no (unknown) (unknown) Albumin 5.6 H (units ( unknown) date) unknown) (unknown) (no (unknown) (unknown) Albumin/Globulin (units (unknown) date) Ratio unknown) (unknown) (no (unknown) (unknown) Albumin/Globulin (units (unknown) date) Ratio unknown) (unknown) (no (unknown) (unknown) Albumin/Globulin (units (unknown) date) Ratio 1.1 unknown) (unknown) (no (unknown) (unknown) Alkaline (units (unkno wn) date) Phosphatase unknown) (unknown) (no (unknown) (unknown) Alkaline (units (unkno wn) date) Phosphatase unknown) (unknown) (no (unknown) (unknown) Alkaline (units (unkno wn) date) Phosphatase 96 unknown) (unknown) (no (unknown) (unknown) Allergy/AdvReac (units (unknown) date) Type Severity unknown) Reaction Status Date / Time (unknown) (no (unknown) (unknown) Assessment + Plan (units (unknown) date) unknown) (unknown) (no (unknown) (unknown) BUN (units (unkno wn) date) unknown) (unknown) (no (unknown) (unknown) BUN (units (unkno wn) date) unknown) (unknown) (no (unknown) (unknown) BUN 31 H (units (unkno wn) date) unknown) (unknown) (no (unknown) (unknown) BUN/Creatinine (units (unknown) date) Ratio unknown) (unknown) (no (unknown) (unknown) BUN/Creatinine (units (unknown) date) Ratio unknown) (unknown) (no (unknown) (unknown) BUN/Creatinine (units (unknown) date) Ratio 18.0 unknown) (unknown) (no (unknown) (unknown) Baso # (Auto) (units ( unknown) date) unknown) (unknown) (no (unknown) (unknown) Baso # (Auto) (units ( unknown) date) unknown) (unknown) (no (unknown) (unknown) Baso # (Auto) 0 (units (unknown) date) unknown) (unknown) (no (unknown) (unknown) Baso % (Auto) (units ( unknown) date) unknown) (unknown) (no (unknown) (unknown) Baso % (Auto) (units ( unknown) date) unknown) (unknown) (no (unknown) (unknown) Baso % (Auto) 0.5 (units (unknown) date) unknown) (unknown) (no (unknown) (unknown) Been Physically (units (unknown) date) Hurt or No unknown) (unknown) (no (unknown) (unknown) Blood Pressure (units (unknown) date) 125/75 unknown) (unknown) (no (unknown) (unknown) Blood Pressure (units (unknown) date) 116/82 126/80 unknown) (unknown) (no (unknown) (unknown) Blood Pressure (units (unknown) date) 151/93 H 151/93 H unknown) (unknown) (no (unknown) (unknown) CV: RRR, no (units (un known) date) murmur or rubs unknown) (unknown) (no (unknown) (unknown) Calcium (units (unkno wn) date) unknown) (unknown) (no (unknown) (unknown) Calcium (units (unkno wn) date) unknown) (unknown) (no (unknown) (unknown) Calcium 10.4 H (units (unknown) date) unknown) (unknown) (no (unknown) (unknown) Carbon Dioxide (units (unknown) date) unknown) (unknown) (no (unknown) (unknown) Carbon Dioxide (units (unknown) date) unknown) (unknown) (no (unknown) (unknown) Carbon Dioxide 32 (units (unknown) date) unknown) (unknown) (no (unknown) (unknown) Chief complaint: (units (unknown) date) cyclical vomiting unknown) (unknown) (no (unknown) (unknown) Chloride (units (unkno wn) date) unknown) (unknown) (no (unknown) (unknown) Chloride (units (unkno wn) date) unknown) (unknown) (no (unknown) (unknown) Chloride 82 L (units ( unknown) date) unknown) (unknown) (no (unknown) (unknown) Chronic abdominal (units (unknown) date) pain unknown) (unknown) (no (unknown) (unknown) Creatinine (units (unk nown) date) unknown) (unknown) (no (unknown) (unknown) Creatinine (units (unk nown) date) unknown) (unknown) (no (unknown) (unknown) Creatinine 1.72 H (units (unknown) date) unknown) (unknown) (no (unknown) (unknown) Critical Care (units ( unknown) date) time: unknown) (unknown) (no (unknown) (unknown) Cyclic vomiting (units (unknown) date) syndrome unknown) (unknown) (no (unknown) (unknown) : 1975 (units (unknown) date) Acct:[id number] unknown) (unknown) (no (unknown) (unknown) Daughter (units (unkno wn) date) Angio-edema unknown) (unknown) (no (unknown) (unknown) Environment (units (un known) date) unknown) (unknown) (no (unknown) (unknown) Eos # (Auto) (units (u nknown) date) unknown) (unknown) (no (unknown) (unknown) Eos # (Auto) (units (u nknown) date) unknown) (unknown) (no (unknown) (unknown) Eos # (Auto) 0 (units (unknown) date) unknown) (unknown) (no (unknown) (unknown) Eos % (Auto) (units (u nknown) date) unknown) (unknown) (no (unknown) (unknown) Eos % (Auto) (units (u nknown) date) unknown) (unknown) (no (unknown) (unknown) Eos % (Auto) 0.1 (units (unknown) date) L unknown) (unknown) (no (unknown) (unknown) Estimated GFR (units ( unknown) date) unknown) (unknown) (no (unknown) (unknown) Estimated GFR (units ( unknown) date) unknown) (unknown) (no (unknown) (unknown) Estimated GFR 36 (units (unknown) date) L unknown) (unknown) (no (unknown) (unknown) Ethyl Alcohol (units ( unknown) date) unknown) (unknown) (no (unknown) (unknown) Ethyl Alcohol (units ( unknown) date) unknown) (unknown) (no (unknown) (unknown) Ethyl Alcohol < (units (unknown) date) 10 unknown) (unknown) (no (unknown) (unknown) Exam (units (unkno wn) date) unknown) (unknown) (no (unknown) (unknown) Exam Narrative: (units (unknown) date) unknown) (unknown) (no (unknown) (unknown) Extremities: (units (u nknown) date) moves all 4 unknown) extremities, is ambulatory, negative Eun?s sign (unknown) (no (unknown) (unknown) Family + Social (units (unknown) date) History unknown) (unknown) (no (unknown) (unknown) Family History (units (unknown) date) (Reviewed 04/13/22 unknown) @ 09:52 by Mine Harrington DO) (unknown) (no (unknown) (unknown) Family history of (units (unknown) date) angioedema unknown) (unknown) (no (unknown) (unknown) Father (units (unkno wn) date) Hypertension unknown) (unknown) (no (unknown) (unknown) Feels Safe in (units ( unknown) date) Current Yes unknown) (unknown) (no (unknown) (unknown) Gen: Alert, (units (un known) date) oriented, thin 46 unknown) y.o. , very lethargic (unknown) (no (unknown) (unknown) Globulin (units (unkno wn) date) unknown) (unknown) (no (unknown) (unknown) Globulin (units (unkno wn) date) unknown) (unknown) (no (unknown) (unknown) Globulin 4.9 H (units (unknown) date) unknown) (unknown) (no (unknown) (unknown) Glucose (units (unkno wn) date) unknown) (unknown) (no (unknown) (unknown) Glucose (units (unkno wn) date) unknown) (unknown) (no (unknown) (unknown) Glucose 134 H (units ( unknown) date) unknown) (unknown) (no (unknown) (unknown) HEENT: (units (unkno wn) date) normocephalic, unknown) atraumatic, conjunctiva clear, sclera non-icteric, oral (unknown) (no (unknown) (unknown) Hct (units (unkno wn) date) unknown) (unknown) (no (unknown) (unknown) Hct (units (unkno wn) date) unknown) (unknown) (no (unknown) (unknown) Hct 44.2 (units (unkno wn) date) unknown) (unknown) (no (unknown) (unknown) Hgb (units (unkno wn) date) unknown) (unknown) (no (unknown) (unknown) Hgb (units (unkno wn) date) unknown) (unknown) (no (unknown) (unknown) Hgb 15.4 (units (unkno wn) date) unknown) (unknown) (no (unknown) (unknown) History of (units (unk nown) date) Present Illness unknown) (unknown) (no (unknown) (unknown) Home Medications (units (unknown) date) and Allergies unknown) (unknown) (no (unknown) (unknown) Hx of (units (unkno wn) date) appendectomy unknown) (unknown) (no (unknown) (unknown) Hx of (units (unkno wn) date) cholecystectomy unknown) (unknown) (no (unknown) (unknown) I spent a total (units (unknown) date) of [] minutes of unknown) critical care time on this patient's care (unknown) (no (unknown) (unknown) Ketones (units (unkno wn) date) unknown) (unknown) (no (unknown) (unknown) Ketones (units (unkno wn) date) unknown) (unknown) (no (unknown) (unknown) Ketones 0.20 (units (u nknown) date) unknown) (unknown) (no (unknown) (unknown) Labs (units (unkno wn) date) unknown) (unknown) (no (unknown) (unknown) Labs: (units (unkno wn) date) unknown) (unknown) (no (unknown) (unknown) Lactate (units (unkno wn) date) unknown) (unknown) (no (unknown) (unknown) Lactate 9.7 H* (units (unknown) date) unknown) (unknown) (no (unknown) (unknown) Lactate 3.0 H 1.3 (units (unknown) date) unknown) (unknown) (no (unknown) (unknown) Lipase (units (unkno wn) date) unknown) (unknown) (no (unknown) (unknown) Lipase (units (unkno wn) date) unknown) (unknown) (no (unknown) (unknown) Lipase 96 (units (unkn own) date) unknown) (unknown) (no (unknown) (unknown) Lymph # (Auto) (units (unknown) date) unknown) (unknown) (no (unknown) (unknown) Lymph # (Auto) (units (unknown) date) unknown) (unknown) (no (unknown) (unknown) Lymph # (Auto) (units (unknown) date) 1300 unknown) (unknown) (no (unknown) (unknown) Lymph % (Auto) (units (unknown) date) unknown) (unknown) (no (unknown) (unknown) Lymph % (Auto) (units (unknown) date) unknown) (unknown) (no (unknown) (unknown) Lymph % (Auto) (units (unknown) date) 20.9 L unknown) (unknown) (no (unknown) (unknown) MCH (units (unkno wn) date) unknown) (unknown) (no (unknown) (unknown) MCH (units (unkno wn) date) unknown) (unknown) (no (unknown) (unknown) MCH 32.4 (units (unkno wn) date) unknown) (unknown) (no (unknown) (unknown) MCHC (units (unkno wn) date) unknown) (unknown) (no (unknown) (unknown) MCHC (units (unkno wn) date) unknown) (unknown) (no (unknown) (unknown) MCHC 35.0 (units (unkn own) date) unknown) (unknown) (no (unknown) (unknown) MCV (units (unkno wn) date) unknown) (unknown) (no (unknown) (unknown) MCV (units (unkno wn) date) unknown) (unknown) (no (unknown) (unknown) MCV 92.6 (units (unkno wn) date) unknown) (unknown) (no (unknown) (unknown) 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 (unknown) (no (unknown) (unknown) Marijuana use, (units (unknown) date) continuous unknown) (unknown) (no (unknown) (unknown) Medical History (units (unknown) date) (Reviewed 04/13/22 unknown) @ 09:52 by Mine Harrington DO) (unknown) (no (unknown) (unknown) Meds (units (unkno wn) date) unknown) (unknown) (no (unknown) (unknown) Centre # (Auto) (units ( unknown) date) unknown) (unknown) (no (unknown) (unknown) Centre # (Auto) (units ( unknown) date) unknown) (unknown) (no (unknown) (unknown) Centre # (Auto) 500 (units (unknown) date) unknown) (unknown) (no (unknown) (unknown) Centre % (Auto) (units ( unknown) date) unknown) (unknown) (no (unknown) (unknown) Centre % (Auto) (units ( unknown) date) unknown) (unknown) (no (unknown) (unknown) Centre % (Auto) 8.7 (units (unknown) date) unknown) (unknown) (no (unknown) (unknown) Mother Diabetes (units (unknown) date) mellitus unknown) (unknown) (no (unknown) (unknown) Narrative (units (unkn own) date) unknown) (unknown) (no (unknown) (unknown) Neck: supple, (units ( unknown) date) full ROM, no JVD, unknown) trachea is midline (unknown) (no (unknown) (unknown) Neuro: Unable to (units (unknown) date) stay awake while unknown) speaking (unknown) (no (unknown) (unknown) Neut # (Auto) (units ( unknown) date) unknown) (unknown) (no (unknown) (unknown) Neut # (Auto) (units ( unknown) date) unknown) (unknown) (no (unknown) (unknown) Neut # (Auto) (units ( unknown) date) 4300 unknown) (unknown) (no (unknown) (unknown) Neut % (Auto) (units ( unknown) date) unknown) (unknown) (no (unknown) (unknown) Neut % (Auto) (units ( unknown) date) unknown) (unknown) (no (unknown) (unknown) Neut % (Auto) (units ( unknown) date) 69.8 unknown) (unknown) (no (unknown) (unknown) Objective (units (unkn own) date) unknown) (unknown) (no (unknown) (unknown) Other Colon (units (un known) date) cancer unknown) (unknown) (no (unknown) (unknown) Oxygen Delivery (units (unknown) date) Method unknown) (unknown) (no (unknown) (unknown) Oxygen Delivery (units (unknown) date) Method unknown) (unknown) (no (unknown) (unknown) Oxygen Delivery (units (unknown) date) Method Room Air unknown) (unknown) (no (unknown) (unknown) Oxygen Delivery (units (unknown) date) Method Room Air unknown) Room Air (unknown) (no (unknown) (unknown) Oxygen Flow Rate (units (unknown) date) unknown) (unknown) (no (unknown) (unknown) Oxygen Flow Rate (units (unknown) date) 0 unknown) (unknown) (no (unknown) (unknown) Oxygen Flow Rate (units (unknown) date) 0 unknown) (unknown) (no (unknown) (unknown) Pancreatitis (units (u nknown) date) unknown) (unknown) (no (unknown) (unknown) Patient History (units (unknown) date) unknown) (unknown) (no (unknown) (unknown) Patient: (units (unkno wn) date) Dameon Castro MR#: unknown) [id number] (unknown) (no (unknown) (unknown) Plt Count (units (unkn own) date) unknown) (unknown) (no (unknown) (unknown) Plt Count (units (unkn own) date) unknown) (unknown) (no (unknown) (unknown) Plt Count 284 (units ( unknown) date) unknown) (unknown) (no (unknown) (unknown) Potassium (units (unkn own) date) unknown) (unknown) (no (unknown) (unknown) Potassium (units (unkn own) date) unknown) (unknown) (no (unknown) (unknown) Potassium 2.7 L* (units (unknown) date) unknown) (unknown) (no (unknown) (unknown) Provider: (units (unkn own) date) Ernestina Jara unknown) (unknown) (no (unknown) (unknown) Psyche: mildly (units (unknown) date) agitated when unknown) awakened. Patient's main focus is complaining (unknown) (no (unknown) (unknown) Pulse Oximetry 96 (units (unknown) date) unknown) (unknown) (no (unknown) (unknown) Pulse Oximetry 95 (units (unknown) date) 96 unknown) (unknown) (no (unknown) (unknown) Pulse Oximetry 98 (units (unknown) date) 100 96 unknown) (unknown) (no (unknown) (unknown) Pulse Rate 91 H (units (unknown) date) unknown) (unknown) (no (unknown) (unknown) Pulse Rate 79 74 (units (unknown) date) unknown) (unknown) (no (unknown) (unknown) Pulse Rate 90 98 (units (unknown) date) H 89 unknown) (unknown) (no (unknown) (unknown) RBC (units (unkno wn) date) unknown) (unknown) (no (unknown) (unknown) RBC (units (unkno wn) date) unknown) (unknown) (no (unknown) (unknown) RBC 4.77 (units (unkno wn) date) unknown) (unknown) (no (unknown) (unknown) RDW (units (unkno wn) date) unknown) (unknown) (no (unknown) (unknown) RDW (units (unkno wn) date) unknown) (unknown) (no (unknown) (unknown) RDW 13.8 (units (unkno wn) date) unknown) (unknown) (no (unknown) (unknown) Resp: Lungs CTA, (units (unknown) date) non-labored unknown) breathing (unknown) (no (unknown) (unknown) Respiratory Rate (units (unknown) date) unknown) (unknown) (no (unknown) (unknown) Respiratory Rate (units (unknown) date) 16 unknown) (unknown) (no (unknown) (unknown) Respiratory Rate (units (unknown) date) 24 22 unknown) (unknown) (no (unknown) (unknown) Result Diagrams: (units (unknown) date) unknown) (unknown) (no (unknown) (unknown) SARS-CoV-2 (PCR) (units (unknown) date) unknown) (unknown) (no (unknown) (unknown) SARS-CoV-2 (PCR) (units (unknown) date) unknown) (unknown) (no (unknown) (unknown) SARS-CoV-2 (PCR) (units (unknown) date) Negative unknown) (unknown) (no (unknown) (unknown) Safety + (units (unkno wn) date) Behavioral: unknown) (unknown) (no (unknown) (unknown) Signed By: (units (unk nown) date) unknown) (unknown) (no (unknown) (unknown) Skin: no lesions (units (unknown) date) or rashes, dry and unknown) intact (unknown) (no (unknown) (unknown) Smoking Status (units (unknown) date) Current every day unknown) smoker (unknown) (no (unknown) (unknown) Social History: (units (unknown) date) unknown) (unknown) (no (unknown) (unknown) Sodium (units (unkno wn) date) unknown) (unknown) (no (unknown) (unknown) Sodium (units (unkno wn) date) unknown) (unknown) (no (unknown) (unknown) Sodium 138 (units (unk nown) date) unknown) (unknown) (no (unknown) (unknown) Substance Use (units ( unknown) date) Type former unknown) substance user,marijuana,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, (unknown) (no (unknown) (unknown) Surgical History (units (unknown) date) (Reviewed 04/13/22 unknown) @ 09:52 by Mine Harrington DO) (unknown) (no (unknown) (unknown) Temperature (units (un known) date) unknown) (unknown) (no (unknown) (unknown) Temperature 97.8 (units (unknown) date) F unknown) (unknown) (no (unknown) (unknown) Temperature 98.0 (units (unknown) date) F unknown) (unknown) (no (unknown) (unknown) Threatened By a (units (unknown) date) Person unknown) (unknown) (no (unknown) (unknown) Time Spent With (units (unknown) date) Patient unknown) (unknown) (no (unknown) (unknown) Tobacco + (units (unkn own) date) Substance use: unknown) (unknown) (no (unknown) (unknown) Tobacco type (units (u nknown) date) e-cigarettes unknown) (unknown) (no (unknown) (unknown) Total Bilirubin (units (unknown) date) unknown) (unknown) (no (unknown) (unknown) Total Bilirubin (units (unknown) date) unknown) (unknown) (no (unknown) (unknown) Total Bilirubin (units (unknown) date) 1.4 H unknown) (unknown) (no (unknown) (unknown) Total Protein (units ( unknown) date) unknown) (unknown) (no (unknown) (unknown) Total Protein (units ( unknown) date) unknown) (unknown) (no (unknown) (unknown) Total Protein (units ( unknown) date) 10.5 H unknown) (unknown) (no (unknown) (unknown) VBG Base Excess (units (unknown) date) unknown) (unknown) (no (unknown) (unknown) VBG Base Excess (units (unknown) date) unknown) (unknown) (no (unknown) (unknown) VBG Base Excess (units (unknown) date) 22.0 H unknown) (unknown) (no (unknown) (unknown) VBG HCO3 (units (unkno wn) date) unknown) (unknown) (no (unknown) (unknown) VBG HCO3 (units (unkno wn) date) unknown) (unknown) (no (unknown) (unknown) VBG HCO3 43 H (units ( unknown) date) unknown) (unknown) (no (unknown) (unknown) VBG O2 Saturation (units (unknown) date) unknown) (unknown) (no (unknown) (unknown) VBG O2 Saturation (units (unknown) date) unknown) (unknown) (no (unknown) (unknown) VBG O2 Saturation (units (unknown) date) 97 H unknown) (unknown) (no (unknown) (unknown) VBG Total CO2 (units ( unknown) date) unknown) (unknown) (no (unknown) (unknown) VBG Total CO2 (units ( unknown) date) unknown) (unknown) (no (unknown) (unknown) VBG Total CO2 44 (units (unknown) date) H unknown) (unknown) (no (unknown) (unknown) VBG pCO2 (units (unkno wn) date) unknown) (unknown) (no (unknown) (unknown) VBG pCO2 (units (unkno wn) date) unknown) (unknown) (no (unknown) (unknown) VBG pCO2 40.7 L (units (unknown) date) unknown) (unknown) (no (unknown) (unknown) VBG pH (units (unkno wn) date) unknown) (unknown) (no (unknown) (unknown) VBG pH (units (unkno wn) date) unknown) (unknown) (no (unknown) (unknown) VBG pH 7.63 H (units ( unknown) date) unknown) (unknown) (no (unknown) (unknown) VBG pO2 (units (unkno wn) date) unknown) (unknown) (no (unknown) (unknown) VBG pO2 (units (unkno wn) date) unknown) (unknown) (no (unknown) (unknown) VBG pO2 79 H (units (u nknown) date) unknown) (unknown) (no (unknown) (unknown) Vital Signs (units (un known) date) unknown) (unknown) (no (unknown) (unknown) WBC (units (unkno wn) date) unknown) (unknown) (no (unknown) (unknown) WBC (units (unkno wn) date) unknown) (unknown) (no (unknown) (unknown) WBC 6.2 (units (unkno wn) date) unknown) (unknown) (no (unknown) (unknown) [Embedded Image (units (unknown) date) Not Available] unknown) (unknown) (no (unknown) (unknown) [METOCLOPRAMIDE] (units (unknown) date) unknown) (unknown) (no (unknown) (unknown) about her (units (unkn own) date) abdominal pain. unknown) (unknown) (no (unknown) (unknown) alcohol intake (units (unknown) date) current unknown) (unknown) (no (unknown) (unknown) alcohol intake (units (unknown) date) frequency 3 or unknown) more drinks per day (unknown) (no (unknown) (unknown) amlodipine 5 mg (units (unknown) date) tablet 5 mg PO unknown) DAILY 03/20/22 03/20/22 History (unknown) (no (unknown) (unknown) bupropion HCl 100 (units (unknown) date) mg tablet,12 hr unknown) 100 mg PO DAILY 03/20/22 03/20/22 History (unknown) (no (unknown) (unknown) cream (units (unkno wn) date) unknown) (unknown) (no (unknown) (unknown) fluconazole 200 (units (unknown) date) mg tablet 200 mg unknown) PO WEEKLY 4 weeks #4 tabs 03/21/22 Rx (unknown) (no (unknown) (unknown) household members (units (unknown) date) spouse unknown) (unknown) (no (unknown) (unknown) latex [LATEX] (units ( unknown) date) Allergy Unknown unknown) Verified 04/13/22 09:42 (unknown) (no (unknown) (unknown) lorazepam 0.5 mg (units (unknown) date) tablet (Ativan) unknown) 0.5 mg PO DAILY PRN nausea and 11/03/21 (unknown) (no (unknown) (unknown) metoclopramide (units (unknown) date) AdvReac Unknown unknown) DYSTONIA Verified 04/13/22 09:42 (unknown) (no (unknown) (unknown) miconazole (units (unk nown) date) nitrate 2 % unknown) topical 1 applic topical BID #30 grams 03/21/22 Rx (unknown) (no (unknown) (unknown) mucosa pink and (units (unknown) date) moist unknown) (unknown) (no (unknown) (unknown) ondansetron 4 mg (units (unknown) date) disintegrating 4 unknown) mg PO Q8H PRN nausea and 07/28/19 08/26/21 Rx (unknown) (no (unknown) (unknown) ondansetron 8 mg (units (unknown) date) disintegrating 8 unknown) mg PO TID PRN Nausea 09/18/19 03/20/22 History (unknown) (no (unknown) (unknown) potassium (units (unkn own) date) chloride 20 mEq 20 unknown) meq PO DAILY #30 tabs 08/03/22 Rx (unknown) (no (unknown) (unknown) promethazine (units (u nknown) date) [PROMETHAZINE] unknown) Allergy Mild ERYTHEMA Verified 04/13/22 09:42 (unknown) (no (unknown) (unknown) spray headache #1 (units (unknown) date) ea unknown) (unknown) (no (unknown) (unknown) sumatriptan 5 (units ( unknown) date) mg/actuation nasal unknown) 5 mg intranasal Q2-4H PRN migraine 06/04/21 (unknown) (no (unknown) (unknown) sustained-release (units (unknown) date) unknown) (unknown) (no (unknown) (unknown) tablet (units (unkno wn) date) unknown) (unknown) (no (unknown) (unknown) tablet vomiting (units (unknown) date) #10 tabs unknown) (unknown) (no (unknown) (unknown) tablet,extended (units (unknown) date) release unknown) (unknown) (no (unknown) (unknown) today; this time (units (unknown) date) is exclusive of unknown) procedural time. Result panel 67 (unknown) (no (unknown) (unknown) (no value) (units (unk nown) date) unknown) (unknown) (no (unknown) (unknown) (no value) (units (unk nown) date) unknown) (unknown) (no (unknown) (unknown) Date of Service: (units (unknown) date) 04/13/22 unknown) (unknown) (no (unknown) (unknown) (no value) (units (unk nown) date) unknown) (unknown) (no (unknown) (unknown) - (units (unkno wn) date) unknown) (unknown) (no (unknown) (unknown) 04/13/22 09:20 (units (unknown) date) unknown) (unknown) (no (unknown) (unknown) ABLE TO (units (unkno wn) date) unknown) (unknown) (no (unknown) (unknown) Allergies (units (unkn own) date) unknown) (unknown) (no (unknown) (unknown) History + (units (unkn own) date) Physical Report unknown) (unknown) (no (unknown) (unknown) Home Medications (units (unknown) date) unknown) (unknown) (no (unknown) (unknown) [facility] (units (unknown) date) [address] unknown) [place] [address] (unknown) (no (unknown) (unknown) Laboratory (units (unk nown) date) Results - last 24 unknown) hr (unknown) (no (unknown) (unknown) PT STATES (units (unkn own) date) unknown) (unknown) (no (unknown) (unknown) [facility] (units (unkno wn) date) unknown) (unknown) (no (unknown) (unknown) TO IV SITE (units (unk nown) date) unknown) (unknown) (no (unknown) (unknown) methamphetamine (units (unknown) date) unknown) (unknown) (no (unknown) (unknown) (no value) (units (unk nown) date) unknown) (unknown) (no (unknown) (unknown) 04/13/22 04/13/22 (units (unknown) date) unknown) (unknown) (no (unknown) (unknown) 04/13/22 04/13/22 (units (unknown) date) 04/13/22 unknown) (unknown) (no (unknown) (unknown) 09:20 09:20 09:40 (units (unknown) date) unknown) (unknown) (no (unknown) (unknown) 09:40 09:55 11:01 (units (unknown) date) unknown) (unknown) (no (unknown) (unknown) 11:20 14:35 (units (un known) date) unknown) (unknown) (no (unknown) (unknown) 04/13/22 (units (unkno wn) date) unknown) (unknown) (no (unknown) (unknown) Medication (units (unk nown) date) Instructions unknown) Recorded Confirmed Type (unknown) (no (unknown) (unknown) vomiting #10 tabs (units (unknown) date) unknown) (unknown) (no (unknown) (unknown) (past 8 hours): (units (unknown) date) unknown) (unknown) (no (unknown) (unknown) 03/20/22 Rx (units (un known) date) unknown) (unknown) (no (unknown) (unknown) 09:33 04/13/22 (units (unknown) date) unknown) (unknown) (no (unknown) (unknown) 09:36 04/13/22 (units (unknown) date) unknown) (unknown) (no (unknown) (unknown) 10:18 (units (unkno wn) date) unknown) (unknown) (no (unknown) (unknown) 10:30 04/13/22 (units (unknown) date) unknown) (unknown) (no (unknown) (unknown) 11:00 (units (unkno wn) date) unknown) (unknown) (no (unknown) (unknown) 11:00 04/13/22 (units (unknown) date) unknown) (unknown) (no (unknown) (unknown) 14:30 (units (unkno wn) date) unknown) (unknown) (no (unknown) (unknown) 2 visits of her (units (unknown) date) tongue.? Patient unknown) states she was told that this is from her COVID (unknown) (no (unknown) (unknown) [id number] (units (unkno wn) date) unknown) (unknown) (no (unknown) (unknown) ALT (units (unkno wn) date) unknown) (unknown) (no (unknown) (unknown) ALT (units (unkno wn) date) unknown) (unknown) (no (unknown) (unknown) ALT 35 H (units (unkno wn) date) unknown) (unknown) (no (unknown) (unknown) AST (units (unkno wn) date) unknown) (unknown) (no (unknown) (unknown) AST (units (unkno wn) date) unknown) (unknown) (no (unknown) (unknown) AST 36 (units (unkno wn) date) unknown) (unknown) (no (unknown) (unknown) Abd: soft, (units (unk nown) date) epigastric unknown) tenderness, normal bowel sounds (unknown) (no (unknown) (unknown) Abscess (units (unkno wn) date) unknown) (unknown) (no (unknown) (unknown) Age/Sex: 46 / F (units (unknown) date) unknown) (unknown) (no (unknown) (unknown) Albumin (units (unkno wn) date) unknown) (unknown) (no (unknown) (unknown) Albumin (units (unkno wn) date) unknown) (unknown) (no (unknown) (unknown) Albumin 5.6 H (units ( unknown) date) unknown) (unknown) (no (unknown) (unknown) Albumin/Globulin (units (unknown) date) Ratio unknown) (unknown) (no (unknown) (unknown) Albumin/Globulin (units (unknown) date) Ratio unknown) (unknown) (no (unknown) (unknown) Albumin/Globulin (units (unknown) date) Ratio 1.1 unknown) (unknown) (no (unknown) (unknown) Alkaline (units (unkno wn) date) Phosphatase unknown) (unknown) (no (unknown) (unknown) Alkaline (units (unkno wn) date) Phosphatase unknown) (unknown) (no (unknown) (unknown) Alkaline (units (unkno wn) date) Phosphatase 96 unknown) (unknown) (no (unknown) (unknown) Allergy/AdvReac (units (unknown) date) Type Severity unknown) Reaction Status Date / Time (unknown) (no (unknown) (unknown) Assessment + Plan (units (unknown) date) unknown) (unknown) (no (unknown) (unknown) BUN (units (unkno wn) date) unknown) (unknown) (no (unknown) (unknown) BUN (units (unkno wn) date) unknown) (unknown) (no (unknown) (unknown) BUN 31 H (units (unkno wn) date) unknown) (unknown) (no (unknown) (unknown) BUN/Creatinine (units (unknown) date) Ratio unknown) (unknown) (no (unknown) (unknown) BUN/Creatinine (units (unknown) date) Ratio unknown) (unknown) (no (unknown) (unknown) BUN/Creatinine (units (unknown) date) Ratio 18.0 unknown) (unknown) (no (unknown) (unknown) Baso # (Auto) (units ( unknown) date) unknown) (unknown) (no (unknown) (unknown) Baso # (Auto) (units ( unknown) date) unknown) (unknown) (no (unknown) (unknown) Baso # (Auto) 0 (units (unknown) date) unknown) (unknown) (no (unknown) (unknown) Baso % (Auto) (units ( unknown) date) unknown) (unknown) (no (unknown) (unknown) Baso % (Auto) (units ( unknown) date) unknown) (unknown) (no (unknown) (unknown) Baso % (Auto) 0.5 (units (unknown) date) unknown) (unknown) (no (unknown) (unknown) Been Physically (units (unknown) date) Hurt or No unknown) (unknown) (no (unknown) (unknown) Blood Pressure (units (unknown) date) 125/75 unknown) (unknown) (no (unknown) (unknown) Blood Pressure (units (unknown) date) 116/82 126/80 unknown) (unknown) (no (unknown) (unknown) Blood Pressure (units (unknown) date) 151/93 H 151/93 H unknown) (unknown) (no (unknown) (unknown) CV: RRR, no (units (un known) date) murmur or rubs unknown) (unknown) (no (unknown) (unknown) Calcium (units (unkno wn) date) unknown) (unknown) (no (unknown) (unknown) Calcium (units (unkno wn) date) unknown) (unknown) (no (unknown) (unknown) Calcium 10.4 H (units (unknown) date) unknown) (unknown) (no (unknown) (unknown) Carbon Dioxide (units (unknown) date) unknown) (unknown) (no (unknown) (unknown) Carbon Dioxide (units (unknown) date) unknown) (unknown) (no (unknown) (unknown) Carbon Dioxide 32 (units (unknown) date) unknown) (unknown) (no (unknown) (unknown) Chief complaint: (units (unknown) date) cyclical vomiting unknown) (unknown) (no (unknown) (unknown) Chloride (units (unkno wn) date) unknown) (unknown) (no (unknown) (unknown) Chloride (units (unkno wn) date) unknown) (unknown) (no (unknown) (unknown) Chloride 82 L (units ( unknown) date) unknown) (unknown) (no (unknown) (unknown) Chronic abdominal (units (unknown) date) pain unknown) (unknown) (no (unknown) (unknown) Creatinine (units (unk nown) date) unknown) (unknown) (no (unknown) (unknown) Creatinine (units (unk nown) date) unknown) (unknown) (no (unknown) (unknown) Creatinine 1.72 H (units (unknown) date) unknown) (unknown) (no (unknown) (unknown) Critical Care (units ( unknown) date) time: unknown) (unknown) (no (unknown) (unknown) Cyclic vomiting (units (unknown) date) syndrome unknown) (unknown) (no (unknown) (unknown) : 1975 (units (unknown) date) Acct:[id number] unknown) (unknown) (no (unknown) (unknown) Daughter (units (unkno wn) date) Angio-edema unknown) (unknown) (no (unknown) (unknown) Environment (units (un known) date) unknown) (unknown) (no (unknown) (unknown) Eos # (Auto) (units (u nknown) date) unknown) (unknown) (no (unknown) (unknown) Eos # (Auto) (units (u nknown) date) unknown) (unknown) (no (unknown) (unknown) Eos # (Auto) 0 (units (unknown) date) unknown) (unknown) (no (unknown) (unknown) Eos % (Auto) (units (u nknown) date) unknown) (unknown) (no (unknown) (unknown) Eos % (Auto) (units (u nknown) date) unknown) (unknown) (no (unknown) (unknown) Eos % (Auto) 0.1 (units (unknown) date) L unknown) (unknown) (no (unknown) (unknown) Estimated GFR (units ( unknown) date) unknown) (unknown) (no (unknown) (unknown) Estimated GFR (units ( unknown) date) unknown) (unknown) (no (unknown) (unknown) Estimated GFR 36 (units (unknown) date) L unknown) (unknown) (no (unknown) (unknown) Ethyl Alcohol (units ( unknown) date) unknown) (unknown) (no (unknown) (unknown) Ethyl Alcohol (units ( unknown) date) unknown) (unknown) (no (unknown) (unknown) Ethyl Alcohol < (units (unknown) date) 10 unknown) (unknown) (no (unknown) (unknown) Exam (units (unkno wn) date) unknown) (unknown) (no (unknown) (unknown) Exam Narrative: (units (unknown) date) unknown) (unknown) (no (unknown) (unknown) Extremities: (units (u nknown) date) moves all 4 unknown) extremities, is ambulatory, negative Eun?s sign (unknown) (no (unknown) (unknown) Family + Social (units (unknown) date) History unknown) (unknown) (no (unknown) (unknown) Family History (units (unknown) date) (Reviewed 04/13/22 unknown) @ 09:52 by Mine Harrington DO) (unknown) (no (unknown) (unknown) Family history of (units (unknown) date) angioedema unknown) (unknown) (no (unknown) (unknown) Father (units (unkno wn) date) Hypertension unknown) (unknown) (no (unknown) (unknown) Feels Safe in (units ( unknown) date) Current Yes unknown) (unknown) (no (unknown) (unknown) Gen: Alert, (units (un known) date) oriented, thin 46 unknown) y.o. , very lethargic (unknown) (no (unknown) (unknown) Globulin (units (unkno wn) date) unknown) (unknown) (no (unknown) (unknown) Globulin (units (unkno wn) date) unknown) (unknown) (no (unknown) (unknown) Globulin 4.9 H (units (unknown) date) unknown) (unknown) (no (unknown) (unknown) Glucose (units (unkno wn) date) unknown) (unknown) (no (unknown) (unknown) Glucose (units (unkno wn) date) unknown) (unknown) (no (unknown) (unknown) Glucose 134 H (units ( unknown) date) unknown) (unknown) (no (unknown) (unknown) HEENT: (units (unkno wn) date) normocephalic, unknown) atraumatic, conjunctiva clear, sclera non-icteric, oral (unknown) (no (unknown) (unknown) Hct (units (unkno wn) date) unknown) (unknown) (no (unknown) (unknown) Hct (units (unkno wn) date) unknown) (unknown) (no (unknown) (unknown) Hct 44.2 (units (unkno wn) date) unknown) (unknown) (no (unknown) (unknown) Hgb (units (unkno wn) date) unknown) (unknown) (no (unknown) (unknown) Hgb (units (unkno wn) date) unknown) (unknown) (no (unknown) (unknown) Hgb 15.4 (units (unkno wn) date) unknown) (unknown) (no (unknown) (unknown) History of (units (unk nown) date) Present Illness unknown) (unknown) (no (unknown) (unknown) Home Medications (units (unknown) date) and Allergies unknown) (unknown) (no (unknown) (unknown) Hx of (units (unkno wn) date) appendectomy unknown) (unknown) (no (unknown) (unknown) Hx of (units (unkno wn) date) cholecystectomy unknown) (unknown) (no (unknown) (unknown) I spent a total (units (unknown) date) of [] minutes of unknown) critical care time on this patient's care (unknown) (no (unknown) (unknown) Ketones (units (unkno wn) date) unknown) (unknown) (no (unknown) (unknown) Ketones (units (unkno wn) date) unknown) (unknown) (no (unknown) (unknown) Ketones 0.20 (units (u nknown) date) unknown) (unknown) (no (unknown) (unknown) Labs (units (unkno wn) date) unknown) (unknown) (no (unknown) (unknown) Labs: (units (unkno wn) date) unknown) (unknown) (no (unknown) (unknown) Lactate (units (unkno wn) date) unknown) (unknown) (no (unknown) (unknown) Lactate 9.7 H* (units (unknown) date) unknown) (unknown) (no (unknown) (unknown) Lactate 3.0 H 1.3 (units (unknown) date) unknown) (unknown) (no (unknown) (unknown) Lipase (units (unkno wn) date) unknown) (unknown) (no (unknown) (unknown) Lipase (units (unkno wn) date) unknown) (unknown) (no (unknown) (unknown) Lipase 96 (units (unkn own) date) unknown) (unknown) (no (unknown) (unknown) Lymph # (Auto) (units (unknown) date) unknown) (unknown) (no (unknown) (unknown) Lymph # (Auto) (units (unknown) date) unknown) (unknown) (no (unknown) (unknown) Lymph # (Auto) (units (unknown) date) 1300 unknown) (unknown) (no (unknown) (unknown) Lymph % (Auto) (units (unknown) date) unknown) (unknown) (no (unknown) (unknown) Lymph % (Auto) (units (unknown) date) unknown) (unknown) (no (unknown) (unknown) Lymph % (Auto) (units (unknown) date) 20.9 L unknown) (unknown) (no (unknown) (unknown) MCH (units (unkno wn) date) unknown) (unknown) (no (unknown) (unknown) MCH (units (unkno wn) date) unknown) (unknown) (no (unknown) (unknown) MCH 32.4 (units (unkno wn) date) unknown) (unknown) (no (unknown) (unknown) MCHC (units (unkno wn) date) unknown) (unknown) (no (unknown) (unknown) MCHC (units (unkno wn) date) unknown) (unknown) (no (unknown) (unknown) MCHC 35.0 (units (unkn own) date) unknown) (unknown) (no (unknown) (unknown) MCV (units (unkno wn) date) unknown) (unknown) (no (unknown) (unknown) MCV (units (unkno wn) date) unknown) (unknown) (no (unknown) (unknown) MCV 92.6 (units (unkno wn) date) unknown) (unknown) (no (unknown) (unknown) 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 (unknown) (no (unknown) (unknown) Marijuana use, (units (unknown) date) continuous unknown) (unknown) (no (unknown) (unknown) Medical History (units (unknown) date) (Reviewed 04/13/22 unknown) @ 09:52 by Mine Harrington DO) (unknown) (no (unknown) (unknown) Meds (units (unkno wn) date) unknown) (unknown) (no (unknown) (unknown) Centre # (Auto) (units ( unknown) date) unknown) (unknown) (no (unknown) (unknown) Centre # (Auto) (units ( unknown) date) unknown) (unknown) (no (unknown) (unknown) Centre # (Auto) 500 (units (unknown) date) unknown) (unknown) (no (unknown) (unknown) Centre % (Auto) (units ( unknown) date) unknown) (unknown) (no (unknown) (unknown) Centre % (Auto) (units ( unknown) date) unknown) (unknown) (no (unknown) (unknown) Centre % (Auto) 8.7 (units (unknown) date) unknown) (unknown) (no (unknown) (unknown) Mother Diabetes (units (unknown) date) mellitus unknown) (unknown) (no (unknown) (unknown) Narrative (units (unkn own) date) unknown) (unknown) (no (unknown) (unknown) Narrative: (units (unk nown) date) unknown) (unknown) (no (unknown) (unknown) Neck: supple, (units ( unknown) date) full ROM, no JVD, unknown) trachea is midline (unknown) (no (unknown) (unknown) Neuro: Unable to (units (unknown) date) stay awake while unknown) speaking (unknown) (no (unknown) (unknown) Neut # (Auto) (units ( unknown) date) unknown) (unknown) (no (unknown) (unknown) Neut # (Auto) (units ( unknown) date) unknown) (unknown) (no (unknown) (unknown) Neut # (Auto) (units ( unknown) date) 4300 unknown) (unknown) (no (unknown) (unknown) Neut % (Auto) (units ( unknown) date) unknown) (unknown) (no (unknown) (unknown) Neut % (Auto) (units ( unknown) date) unknown) (unknown) (no (unknown) (unknown) Neut % (Auto) (units ( unknown) date) 69.8 unknown) (unknown) (no (unknown) (unknown) Objective (units (unkn own) date) unknown) (unknown) (no (unknown) (unknown) Other Colon (units (un known) date) cancer unknown) (unknown) (no (unknown) (unknown) Oxygen Delivery (units (unknown) date) Method unknown) (unknown) (no (unknown) (unknown) Oxygen Delivery (units (unknown) date) Method unknown) (unknown) (no (unknown) (unknown) Oxygen Delivery (units (unknown) date) Method Room Air unknown) (unknown) (no (unknown) (unknown) Oxygen Delivery (units (unknown) date) Method Room Air unknown) Room Air (unknown) (no (unknown) (unknown) Oxygen Flow Rate (units (unknown) date) unknown) (unknown) (no (unknown) (unknown) Oxygen Flow Rate (units (unknown) date) 0 unknown) (unknown) (no (unknown) (unknown) Oxygen Flow Rate (units (unknown) date) 0 unknown) (unknown) (no (unknown) (unknown) Pancreatitis (units (u nknown) date) unknown) (unknown) (no (unknown) (unknown) Patient History (units (unknown) date) unknown) (unknown) (no (unknown) (unknown) Patient states (units (unknown) date) she is been unknown) stooling regularly with no diarrhea or constipation (unknown) (no (unknown) (unknown) Patient: (units (unkno wn) date) Dameon Castro MR#: unknown) [id number] (unknown) (no (unknown) (unknown) Phenergan (units (unkn own) date) suppository this unknown) morning which was not helpful.? Patient states no (unknown) (no (unknown) (unknown) Plt Count (units (unkn own) date) unknown) (unknown) (no (unknown) (unknown) Plt Count (units (unkn own) date) unknown) (unknown) (no (unknown) (unknown) Plt Count 284 (units ( unknown) date) unknown) (unknown) (no (unknown) (unknown) Potassium (units (unkn own) date) unknown) (unknown) (no (unknown) (unknown) Potassium (units (unkn own) date) unknown) (unknown) (no (unknown) (unknown) Potassium 2.7 L* (units (unknown) date) unknown) (unknown) (no (unknown) (unknown) Provider: (units (unkn own) date) Ernestina Jara unknown) (unknown) (no (unknown) (unknown) Psyche: mildly (units (unknown) date) agitated when unknown) awakened. Patient's main focus is complaining (unknown) (no (unknown) (unknown) Pulse Oximetry 96 (units (unknown) date) unknown) (unknown) (no (unknown) (unknown) Pulse Oximetry 95 (units (unknown) date) 96 unknown) (unknown) (no (unknown) (unknown) Pulse Oximetry 98 (units (unknown) date) 100 96 unknown) (unknown) (no (unknown) (unknown) Pulse Rate 91 H (units (unknown) date) unknown) (unknown) (no (unknown) (unknown) Pulse Rate 79 74 (units (unknown) date) unknown) (unknown) (no (unknown) (unknown) Pulse Rate 90 98 (units (unknown) date) H 89 unknown) (unknown) (no (unknown) (unknown) RBC (units (unkno wn) date) unknown) (unknown) (no (unknown) (unknown) RBC (units (unkno wn) date) unknown) (unknown) (no (unknown) (unknown) RBC 4.77 (units (unkno wn) date) unknown) (unknown) (no (unknown) (unknown) RDW (units (unkno wn) date) unknown) (unknown) (no (unknown) (unknown) RDW (units (unkno wn) date) unknown) (unknown) (no (unknown) (unknown) RDW 13.8 (units (unkno wn) date) unknown) (unknown) (no (unknown) (unknown) Resp: Lungs CTA, (units (unknown) date) non-labored unknown) breathing (unknown) (no (unknown) (unknown) Respiratory Rate (units (unknown) date) unknown) (unknown) (no (unknown) (unknown) Respiratory Rate (units (unknown) date) 16 unknown) (unknown) (no (unknown) (unknown) Respiratory Rate (units (unknown) date) 24 22 unknown) (unknown) (no (unknown) (unknown) Result Diagrams: (units (unknown) date) unknown) (unknown) (no (unknown) (unknown) SARS-CoV-2 (PCR) (units (unknown) date) unknown) (unknown) (no (unknown) (unknown) SARS-CoV-2 (PCR) (units (unknown) date) unknown) (unknown) (no (unknown) (unknown) SARS-CoV-2 (PCR) (units (unknown) date) Negative unknown) (unknown) (no (unknown) (unknown) Safety + (units (unkno wn) date) Behavioral: unknown) (unknown) (no (unknown) (unknown) Signed By: (units (unk nown) date) unknown) (unknown) (no (unknown) (unknown) Skin: no lesions (units (unknown) date) or rashes, dry and unknown) intact (unknown) (no (unknown) (unknown) Smoking Status (units (unknown) date) Current every day unknown) smoker (unknown) (no (unknown) (unknown) Social History: (units (unknown) date) unknown) (unknown) (no (unknown) (unknown) Sodium (units (unkno wn) date) unknown) (unknown) (no (unknown) (unknown) Sodium (units (unkno wn) date) unknown) (unknown) (no (unknown) (unknown) Sodium 138 (units (unk nown) date) unknown) (unknown) (no (unknown) (unknown) Substance Use (units ( unknown) date) Type former unknown) substance user,marijuana,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, (unknown) (no (unknown) (unknown) Surgical History (units (unknown) date) (Reviewed 04/13/22 unknown) @ 09:52 by Mine Harrington DO) (unknown) (no (unknown) (unknown) Temperature (units (un known) date) unknown) (unknown) (no (unknown) (unknown) Temperature 97.8 (units (unknown) date) F unknown) (unknown) (no (unknown) (unknown) Temperature 98.0 (units (unknown) date) F unknown) (unknown) (no (unknown) (unknown) This is a This is (units (unknown) date) a 46-year-old unknown) female with history of cyclic vomiting, (unknown) (no (unknown) (unknown) Threatened By a (units (unknown) date) Person unknown) (unknown) (no (unknown) (unknown) Time Spent With (units (unknown) date) Patient unknown) (unknown) (no (unknown) (unknown) Tobacco + (units (unkn own) date) Substance use: unknown) (unknown) (no (unknown) (unknown) Tobacco type (units (u nknown) date) e-cigarettes unknown) (unknown) (no (unknown) (unknown) Total Bilirubin (units (unknown) date) unknown) (unknown) (no (unknown) (unknown) Total Bilirubin (units (unknown) date) unknown) (unknown) (no (unknown) (unknown) Total Bilirubin (units (unknown) date) 1.4 H unknown) (unknown) (no (unknown) (unknown) Total Protein (units ( unknown) date) unknown) (unknown) (no (unknown) (unknown) Total Protein (units ( unknown) date) unknown) (unknown) (no (unknown) (unknown) Total Protein (units ( unknown) date) 10.5 H unknown) (unknown) (no (unknown) (unknown) VBG Base Excess (units (unknown) date) unknown) (unknown) (no (unknown) (unknown) VBG Base Excess (units (unknown) date) unknown) (unknown) (no (unknown) (unknown) VBG Base Excess (units (unknown) date) 22.0 H unknown) (unknown) (no (unknown) (unknown) VBG HCO3 (units (o ) date) unknown) (unknown) (no (unknown) (unknown) VBG HCO3 (units () date) unknown) (unknown) (no (unknown) (unknown) VBG HCO3 43 H (units ( unknown) date) unknown) (unknown) (no (unknown) (unknown) VBG O2 Saturation (units (unknown) date) unknown) (unknown) (no (unknown) (unknown) VBG O2 Saturation (units (unknown) date) unknown) (unknown) (no (unknown) (unknown) VBG O2 Saturation (units (unknown) date) 97 H unknown) (unknown) (no (unknown) (unknown) VBG Total CO2 (units ( unknown) date) unknown) (unknown) (no (unknown) (unknown) VBG Total CO2 (units ( unknown) date) unknown) (unknown) (no (unknown) (unknown) VBG Total CO2 44 (units (unknown) date) H unknown) (unknown) (no (unknown) (unknown) VBG pCO2 (units (o ) date) unknown) (unknown) (no (unknown) (unknown) VBG pCO2 (units (o ) date) unknown) (unknown) (no (unknown) (unknown) VBG pCO2 40.7 L (units (unknown) date) unknown) (unknown) (no (unknown) (unknown) VBG pH (units ( wn) date) unknown) (unknown) (no (unknown) (unknown) VBG pH (units (unkno wn) date) unknown) (unknown) (no (unknown) (unknown) VBG pH 7.63 H (units ( unknown) date) unknown) (unknown) (no (unknown) (unknown) VBG pO2 (units (unkno wn) date) unknown) (unknown) (no (unknown) (unknown) VBG pO2 (units (unkno wn) date) unknown) (unknown) (no (unknown) (unknown) VBG pO2 79 H (units (u nknown) date) unknown) (unknown) (no (unknown) (unknown) Vital Signs (units (un known) date) unknown) (unknown) (no (unknown) (unknown) WBC (units (unkno wn) date) unknown) (unknown) (no (unknown) (unknown) WBC (units (unkno wn) date) unknown) (unknown) (no (unknown) (unknown) WBC 6.2 (units (unkno wn) date) unknown) (unknown) (no (unknown) (unknown) [Embedded Image (units (unknown) date) Not Available] unknown) (unknown) (no (unknown) (unknown) [METOCLOPRAMIDE] (units (unknown) date) unknown) (unknown) (no (unknown) (unknown) able to keep down (units (unknown) date) her home unknown) medications the last couple days but did try (unknown) (no (unknown) (unknown) about her (units (unkn own) date) abdominal pain. unknown) (unknown) (no (unknown) (unknown) alcohol intake (units (unknown) date) current unknown) (unknown) (no (unknown) (unknown) alcohol intake (units (unknown) date) frequency 3 or unknown) more drinks per day (unknown) (no (unknown) (unknown) allergies to (units (un known) date) Reglan, unknown) promethazine IV but can tolerate per rectum and latex.? She (unknown) (no (unknown) (unknown) amlodipine 5 mg (units (unknown) date) tablet 5 mg PO unknown) DAILY 03/20/22 03/20/22 History (unknown) (no (unknown) (unknown) and denies any (units (unknown) date) black or bloody unknown) stools.? She states no dysuria, urgency or (unknown) (no (unknown) (unknown) black or bloody (units (unknown) date) stools.? She unknown) states no dysuria, urgency or frequency.? No (unknown) (no (unknown) (unknown) bupropion HCl 100 (units (unknown) date) mg tablet,12 hr unknown) 100 mg PO DAILY 03/20/22 03/20/22 History (unknown) (no (unknown) (unknown) complaint of (units (u nknown) date) vomiting for the unknown) past 3 days.? Patient states this is similar to (unknown) (no (unknown) (unknown) cream (units (unkno wn) date) unknown) (unknown) (no (unknown) (unknown) denies any (units (unk nown) date) hemoptysis.? unknown) States her pain is typical of her past episodes.? (unknown) (no (unknown) (unknown) does use tobacco, (units (unknown) date) states she drinks unknown) 3-5 alcoholic drinks daily and states she (unknown) (no (unknown) (unknown) down her home (units (u nknown) date) medications the unknown) last couple days but did try Phenergan suppository (unknown) (no (unknown) (unknown) drinks daily and (units (unknown) date) states she uses unknown) THC intermittently as well as cocaine.? Patient (unknown) (no (unknown) (unknown) fluconazole 200 (units (unknown) date) mg tablet 200 mg unknown) PO WEEKLY 4 weeks #4 tabs 03/21/22 Rx (unknown) (no (unknown) (unknown) frequency.? No (units (unknown) date) vaginal bleeding unknown) or discharge.? Patient states she has not been (unknown) (no (unknown) (unknown) hemoptysis.? (units (u nknown) date) States her pain is unknown) typical of her past episodes.? Patient states (unknown) (no (unknown) (unknown) her prior cyclic (units (unknown) date) vomiting episodes unknown) in the past.? She denies fevers.? 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 (unknown) (no (unknown) (unknown) household members (units (unknown) date) spouse unknown) (unknown) (no (unknown) (unknown) today.? We (units (unknown) date) did discuss that unknown) she was noted to have angioedema on the last (unknown) (no (unknown) (unknown) last cocaine use (units (unknown) date) but does not think unknown) it was recently.? She is accompanied by her (unknown) (no (unknown) (unknown) latex [LATEX] (units ( unknown) date) Allergy Unknown unknown) Verified 04/13/22 09:42 (unknown) (no (unknown) (unknown) lorazepam 0.5 mg (units (unknown) date) tablet (Ativan) unknown) 0.5 mg PO DAILY PRN nausea and 11/03/21 (unknown) (no (unknown) (unknown) metoclopramide (units (unknown) date) AdvReac Unknown unknown) DYSTONIA Verified 04/13/22 09:42 (unknown) (no (unknown) (unknown) miconazole (units (unk nown) date) nitrate 2 % unknown) topical 1 applic topical BID #30 grams 03/21/22 Rx (unknown) (no (unknown) (unknown) mucosa pink and (units (unknown) date) moist unknown) (unknown) (no (unknown) (unknown) noted to have (units (u nknown) date) angioedema on the unknown) last 2 visits of her tongue.? Patient states she (unknown) (no (unknown) (unknown) ondansetron 4 mg (units (unknown) date) disintegrating 4 unknown) mg PO Q8H PRN nausea and 07/28/19 08/26/21 Rx (unknown) (no (unknown) (unknown) ondansetron 8 mg (units (unknown) date) disintegrating 8 unknown) mg PO TID PRN Nausea 09/18/19 03/20/22 History (unknown) (no (unknown) (unknown) per rectum and (units (unknown) date) latex.? She does unknown) use tobacco, states she drinks 3-5 alcoholic (unknown) (no (unknown) (unknown) polysubstance (units ( unknown) date) abuse, alcohol use unknown) and angioedema.? Patient presents with (unknown) (no (unknown) (unknown) potassium (units (unkn own) date) chloride 20 mEq 20 unknown) meq PO DAILY #30 tabs 03/21/22 Rx (unknown) (no (unknown) (unknown) promethazine (units (u nknown) date) [PROMETHAZINE] unknown) Allergy Mild ERYTHEMA Verified 04/13/22 09:42 (unknown) (no (unknown) (unknown) recently.? She is (units (unknown) date) accompanied by her unknown) today.? We did discuss that she was (unknown) (no (unknown) (unknown) she is been (units (un known) date) stooling regularly unknown) with no diarrhea or constipation and denies any (unknown) (no (unknown) (unknown) she is been (units (un known) date) vomiting up unknown) everything she tries to put in her stomach, denies any (unknown) (no (unknown) (unknown) spray headache #1 (units (unknown) date) ea unknown) (unknown) (no (unknown) (unknown) states she is (units ( unknown) date) been vomiting up unknown) everything she tries to put in her stomach, (unknown) (no (unknown) (unknown) states she is (units ( unknown) date) unsure of her last unknown) cocaine use but does not think it was (unknown) (no (unknown) (unknown) sumatriptan 5 (units ( unknown) date) mg/actuation nasal unknown) 5 mg intranasal Q2-4H PRN migraine 06/04/21 (unknown) (no (unknown) (unknown) surgeries.? She (units (unknown) date) does have unknown) allergies to Reglan, promethazine IV but can tolerate (unknown) (no (unknown) (unknown) sustained-release (units (unknown) date) unknown) (unknown) (no (unknown) (unknown) tablet (units (unkno wn) date) unknown) (unknown) (no (unknown) (unknown) tablet vomiting (units (unknown) date) #10 tabs unknown) (unknown) (no (unknown) (unknown) tablet,extended (units (unknown) date) release unknown) (unknown) (no (unknown) (unknown) this morning which (units (unknown) date) was not helpful.? unknown) Patient states no surgeries.? She does have (unknown) (no (unknown) (unknown) to her prior (units (u nknown) date) cyclic vomiting unknown) episodes in the past.? She denies fevers.? She (unknown) (no (unknown) (unknown) today; this time (units (unknown) date) is exclusive of unknown) procedural time. (unknown) (no (unknown) (unknown) uses THC (units (unkno wn) date) intermittently as unknown) well as cocaine.? Patient states she is unsure of her (unknown) (no (unknown) (unknown) vaccination.? She (units (unknown) date) had testing sent unknown) for hereditary angioedema but does not know (unknown) (no (unknown) (unknown) vaginal bleeding (units (unknown) date) or discharge.? unknown) Patient states she has not been able to keep (unknown) (no (unknown) (unknown) vomiting, (units (unkn own) date) polysubstance unknown) abuse, alcohol use and angioedema.? Patient presents (unknown) (no (unknown) (unknown) was told that (units ( unknown) date) this is from her unknown) COVID vaccination.? She had testing sent for (unknown) (no (unknown) (unknown) what the results (units (unknown) date) of those unknown) were.?46-year-old female with history of cyclic (unknown) (no (unknown) (unknown) with complaint of (units (unknown) date) vomiting for the unknown) past 3 days.? Patient states this is similar Result panel 68 (unknown) (no (unknown) (unknown) (no value) (units (unk nown) date) unknown) (unknown) (no (unknown) (unknown) (no value) (units (unk nown) date) unknown) (unknown) (no (unknown) (unknown) Date of Service: (units (unknown) date) 04/13/22 unknown) (unknown) (no (unknown) (unknown) (no value) (units (unk nown) date) unknown) (unknown) (no (unknown) (unknown) - (units (unkno wn) date) unknown) (unknown) (no (unknown) (unknown) 04/13/22 09:20 (units (unknown) date) unknown) (unknown) (no (unknown) (unknown) ABLE TO (units (unkno wn) date) unknown) (unknown) (no (unknown) (unknown) Allergies (units (unkn own) date) unknown) (unknown) (no (unknown) (unknown) History + (units (unkn own) date) Physical Report unknown) (unknown) (no (unknown) (unknown) Home Medications (units (unknown) date) unknown) (unknown) (no (unknown) (unknown) [facility] (units (unknown) date) [address] unknown) [place] [address] (unknown) (no (unknown) (unknown) Laboratory (units (unk nown) date) Results - last 24 unknown) hr (unknown) (no (unknown) (unknown) PT STATES (units (unkn own) date) unknown) (unknown) (no (unknown) (unknown) [facility] (units (unkno wn) date) unknown) (unknown) (no (unknown) (unknown) TO IV SITE (units (unk nown) date) unknown) (unknown) (no (unknown) (unknown) methamphetamine (units (unknown) date) unknown) (unknown) (no (unknown) (unknown) (no value) (units (unk nown) date) unknown) (unknown) (no (unknown) (unknown) 04/13/22 04/13/22 (units (unknown) date) unknown) (unknown) (no (unknown) (unknown) 04/13/22 04/13/22 (units (unknown) date) 04/13/22 unknown) (unknown) (no (unknown) (unknown) 09:20 09:20 09:40 (units (unknown) date) unknown) (unknown) (no (unknown) (unknown) 09:40 09:55 11:01 (units (unknown) date) unknown) (unknown) (no (unknown) (unknown) 11:20 14:35 (units (un known) date) unknown) (unknown) (no (unknown) (unknown) 04/13/22 (units (unkno wn) date) unknown) (unknown) (no (unknown) (unknown) Medication (units (unk nown) date) Instructions unknown) Recorded Confirmed Type (unknown) (no (unknown) (unknown) vomiting #10 tabs (units (unknown) date) unknown) (unknown) (no (unknown) (unknown) (past 8 hours): (units (unknown) date) unknown) (unknown) (no (unknown) (unknown) 03/20/22 Rx (units (un known) date) unknown) (unknown) (no (unknown) (unknown) 09:33 04/13/22 (units (unknown) date) unknown) (unknown) (no (unknown) (unknown) 09:36 04/13/22 (units (unknown) date) unknown) (unknown) (no (unknown) (unknown) 1. (units (unkno wn) date) unknown) (unknown) (no (unknown) (unknown) 10:18 (units (unkno wn) date) unknown) (unknown) (no (unknown) (unknown) 10:30 04/13/22 (units (unknown) date) unknown) (unknown) (no (unknown) (unknown) 11:00 (units (unkno wn) date) unknown) (unknown) (no (unknown) (unknown) 11:00 04/13/22 (units (unknown) date) unknown) (unknown) (no (unknown) (unknown) 14:30 (units (unkno wn) date) unknown) (unknown) (no (unknown) (unknown) 2 visits of her (units (unknown) date) tongue.? Patient unknown) states she was told that this is from her COVID (unknown) (no (unknown) (unknown) [address] (units (unkno wn) date) unknown) (unknown) (no (unknown) (unknown) ALT (units (unkno wn) date) unknown) (unknown) (no (unknown) (unknown) ALT (units (unkno wn) date) unknown) (unknown) (no (unknown) (unknown) ALT 35 H (units (unkno wn) date) unknown) (unknown) (no (unknown) (unknown) AST (units (unkno wn) date) unknown) (unknown) (no (unknown) (unknown) AST (units (unkno wn) date) unknown) (unknown) (no (unknown) (unknown) AST 36 (units (unkno wn) date) unknown) (unknown) (no (unknown) (unknown) Abd: soft, (units (unk nown) date) epigastric unknown) tenderness, normal bowel sounds (unknown) (no (unknown) (unknown) Abscess (units (unkno wn) date) unknown) (unknown) (no (unknown) (unknown) Age/Sex: 46 / F (units (unknown) date) unknown) (unknown) (no (unknown) (unknown) Albumin (units (unkno wn) date) unknown) (unknown) (no (unknown) (unknown) Albumin (units (unkno wn) date) unknown) (unknown) (no (unknown) (unknown) Albumin 5.6 H (units ( unknown) date) unknown) (unknown) (no (unknown) (unknown) Albumin/Globulin (units (unknown) date) Ratio unknown) (unknown) (no (unknown) (unknown) Albumin/Globulin (units (unknown) date) Ratio unknown) (unknown) (no (unknown) (unknown) Albumin/Globulin (units (unknown) date) Ratio 1.1 unknown) (unknown) (no (unknown) (unknown) Alkaline (units (unkno wn) date) Phosphatase unknown) (unknown) (no (unknown) (unknown) Alkaline (units (unkno wn) date) Phosphatase unknown) (unknown) (no (unknown) (unknown) Alkaline (units (unkno wn) date) Phosphatase 96 unknown) (unknown) (no (unknown) (unknown) Allergy/AdvReac (units (unknown) date) Type Severity unknown) Reaction Status Date / Time (unknown) (no (unknown) (unknown) Assessment + Plan (units (unknown) date) unknown) (unknown) (no (unknown) (unknown) Assessment + Plan (units (unknown) date) narrative: unknown) (unknown) (no (unknown) (unknown) BUN (units (unkno wn) date) unknown) (unknown) (no (unknown) (unknown) BUN (units (unkno wn) date) unknown) (unknown) (no (unknown) (unknown) BUN 31 H (units (unkno wn) date) unknown) (unknown) (no (unknown) (unknown) BUN/Creatinine (units (unknown) date) Ratio unknown) (unknown) (no (unknown) (unknown) BUN/Creatinine (units (unknown) date) Ratio unknown) (unknown) (no (unknown) (unknown) BUN/Creatinine (units (unknown) date) Ratio 18.0 unknown) (unknown) (no (unknown) (unknown) Baso # (Auto) (units ( unknown) date) unknown) (unknown) (no (unknown) (unknown) Baso # (Auto) (units ( unknown) date) unknown) (unknown) (no (unknown) (unknown) Baso # (Auto) 0 (units (unknown) date) unknown) (unknown) (no (unknown) (unknown) Baso % (Auto) (units ( unknown) date) unknown) (unknown) (no (unknown) (unknown) Baso % (Auto) (units ( unknown) date) unknown) (unknown) (no (unknown) (unknown) Baso % (Auto) 0.5 (units (unknown) date) unknown) (unknown) (no (unknown) (unknown) Been Physically (units (unknown) date) Hurt or No unknown) (unknown) (no (unknown) (unknown) Blood Pressure (units (unknown) date) 125/75 unknown) (unknown) (no (unknown) (unknown) Blood Pressure (units (unknown) date) 116/82 126/80 unknown) (unknown) (no (unknown) (unknown) Blood Pressure (units (unknown) date) 151/93 H 151/93 H unknown) (unknown) (no (unknown) (unknown) CV: RRR, no (units (un known) date) murmur or rubs unknown) (unknown) (no (unknown) (unknown) Calcium (units (unkno wn) date) unknown) (unknown) (no (unknown) (unknown) Calcium (units (unkno wn) date) unknown) (unknown) (no (unknown) (unknown) Calcium 10.4 H (units (unknown) date) unknown) (unknown) (no (unknown) (unknown) Carbon Dioxide (units (unknown) date) unknown) (unknown) (no (unknown) (unknown) Carbon Dioxide (units (unknown) date) unknown) (unknown) (no (unknown) (unknown) Carbon Dioxide 32 (units (unknown) date) unknown) (unknown) (no (unknown) (unknown) Chief complaint: (units (unknown) date) cyclical vomiting unknown) (unknown) (no (unknown) (unknown) Chloride (units (unkno wn) date) unknown) (unknown) (no (unknown) (unknown) Chloride (units (unkno wn) date) unknown) (unknown) (no (unknown) (unknown) Chloride 82 L (units ( unknown) date) unknown) (unknown) (no (unknown) (unknown) Chronic abdominal (units (unknown) date) pain unknown) (unknown) (no (unknown) (unknown) Creatinine (units (unk nown) date) unknown) (unknown) (no (unknown) (unknown) Creatinine (units (unk nown) date) unknown) (unknown) (no (unknown) (unknown) Creatinine 1.72 H (units (unknown) date) unknown) (unknown) (no (unknown) (unknown) Critical Care (units ( unknown) date) time: unknown) (unknown) (no (unknown) (unknown) Cyclic vomiting (units (unknown) date) syndrome unknown) (unknown) (no (unknown) (unknown) : 1975 (units (unknown) date) Acct:[id number] unknown) (unknown) (no (unknown) (unknown) Daughter (units (unkno wn) date) Angio-edema unknown) (unknown) (no (unknown) (unknown) Environment (units (un known) date) unknown) (unknown) (no (unknown) (unknown) Eos # (Auto) (units (u nknown) date) unknown) (unknown) (no (unknown) (unknown) Eos # (Auto) (units (u nknown) date) unknown) (unknown) (no (unknown) (unknown) Eos # (Auto) 0 (units (unknown) date) unknown) (unknown) (no (unknown) (unknown) Eos % (Auto) (units (u nknown) date) unknown) (unknown) (no (unknown) (unknown) Eos % (Auto) (units (u nknown) date) unknown) (unknown) (no (unknown) (unknown) Eos % (Auto) 0.1 (units (unknown) date) L unknown) (unknown) (no (unknown) (unknown) Estimated GFR (units ( unknown) date) unknown) (unknown) (no (unknown) (unknown) Estimated GFR (units ( unknown) date) unknown) (unknown) (no (unknown) (unknown) Estimated GFR 36 (units (unknown) date) L unknown) (unknown) (no (unknown) (unknown) Ethyl Alcohol (units ( unknown) date) unknown) (unknown) (no (unknown) (unknown) Ethyl Alcohol (units ( unknown) date) unknown) (unknown) (no (unknown) (unknown) Ethyl Alcohol < (units (unknown) date) 10 unknown) (unknown) (no (unknown) (unknown) Exam (units (unkno wn) date) unknown) (unknown) (no (unknown) (unknown) Exam Narrative: (units (unknown) date) unknown) (unknown) (no (unknown) (unknown) Extremities: (units (u nknown) date) moves all 4 unknown) extremities, is ambulatory, negative Eun?s sign (unknown) (no (unknown) (unknown) Family + Social (units (unknown) date) History unknown) (unknown) (no (unknown) (unknown) Family History (units (unknown) date) (Reviewed 04/13/22 unknown) @ 09:52 by Mine Harrington DO) (unknown) (no (unknown) (unknown) Family history of (units (unknown) date) angioedema unknown) (unknown) (no (unknown) (unknown) Father (units (unkno wn) date) Hypertension unknown) (unknown) (no (unknown) (unknown) Feels Safe in (units ( unknown) date) Current Yes unknown) (unknown) (no (unknown) (unknown) [employer] system (units (unknown) date) review completed unknown) completed and pertinent findings are in the (unknown) (no (unknown) (unknown) Gen: Alert, (units (un known) date) oriented, thin 46 unknown) y.o. , very lethargic (unknown) (no (unknown) (unknown) Globulin (units (unkno wn) date) unknown) (unknown) (no (unknown) (unknown) Globulin (units (unkno wn) date) unknown) (unknown) (no (unknown) (unknown) Globulin 4.9 H (units (unknown) date) unknown) (unknown) (no (unknown) (unknown) Glucose (units (unkno wn) date) unknown) (unknown) (no (unknown) (unknown) Glucose (units (unkno wn) date) unknown) (unknown) (no (unknown) (unknown) Glucose 134 H (units ( unknown) date) unknown) (unknown) (no (unknown) (unknown) HEENT: (units (unkno wn) date) normocephalic, unknown) atraumatic, conjunctiva clear, sclera non-icteric, oral (unknown) (no (unknown) (unknown) Hct (units (unkno wn) date) unknown) (unknown) (no (unknown) (unknown) Hct (units (unkno wn) date) unknown) (unknown) (no (unknown) (unknown) Hct 44.2 (units (unkno wn) date) unknown) (unknown) (no (unknown) (unknown) Hgb (units (unkno wn) date) unknown) (unknown) (no (unknown) (unknown) Hgb (units (unkno wn) date) unknown) (unknown) (no (unknown) (unknown) Hgb 15.4 (units (unkno wn) date) unknown) (unknown) (no (unknown) (unknown) History of (units (unk nown) date) Present Illness unknown) (unknown) (no (unknown) (unknown) Home Medications (units (unknown) date) and Allergies unknown) (unknown) (no (unknown) (unknown) Hx of (units (unkno wn) date) appendectomy unknown)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 (unknown) (unknown) ondansetron 4 mg (units (unknown) date) disintegrating 4 unknown) mg PO Q8H PRN nausea and 07/28/19 08/26/21 Rx (unknown) (no (unknown) (unknown) ondansetron 8 mg (units (unknown) date) disintegrating 8 unknown) mg PO TID PRN Nausea 09/18/19 03/20/22 History (unknown) (no (unknown) (unknown) per rectum and (units (unknown) date) latex.? She does unknown) use tobacco, states she drinks 3-5 alcoholic (unknown) (no (unknown) (unknown) polysubstance (units ( unknown) date) abuse, alcohol use unknown) and angioedema.? Patient presents with (unknown) (no (unknown) (unknown) potassium (units (unkn own) date) chloride 20 mEq 20 unknown) meq PO DAILY #30 tabs 03/21/22 Rx (unknown) (no (unknown) (unknown) promethazine (units (u nknown) date) [PROMETHAZINE] unknown) Allergy Mild ERYTHEMA Verified 04/13/22 09:42 (unknown) (no (unknown) (unknown) recently.? She is (units (unknown) date) accompanied by her unknown) today.? We did discuss that she was (unknown) (no (unknown) (unknown) she is been (units (un known) date) stooling regularly unknown) with no diarrhea or constipation and denies any (unknown) (no (unknown) (unknown) she is been (units (un known) date) vomiting up unknown) everything she tries to put in her stomach, denies any (unknown) (no (unknown) (unknown) spray headache #1 (units (unknown) date) ea unknown) (unknown) (no (unknown) (unknown) states she is (units ( unknown) date) been vomiting up unknown) everything she tries to put in her stomach, (unknown) (no (unknown) (unknown) states she is (units ( unknown) date) unsure of her last unknown) cocaine use but does not think it was (unknown) (no (unknown) (unknown) sumatriptan 5 (units ( unknown) date) mg/actuation nasal unknown) 5 mg intranasal Q2-4H PRN migraine 06/04/21 (unknown) (no (unknown) (unknown) surgeries.? She (units (unknown) date) does have unknown) allergies to Reglan, promethazine IV but can tolerate (unknown) (no (unknown) (unknown) sustained-release (units (unknown) date) unknown) (unknown) (no (unknown) (unknown) tablet (units (unkno wn) date) unknown) (unknown) (no (unknown) (unknown) tablet vomiting (units (unknown) date) #10 tabs unknown) (unknown) (no (unknown) (unknown) tablet,extended (units (unknown) date) release unknown) (unknown) (no (unknown) (unknown) this morning which (units (unknown) date) was not helpful.? unknown) Patient states no surgeries.? She does have (unknown) (no (unknown) (unknown) to her prior (units (u nknown) date) cyclic vomiting unknown) episodes in the past.? She denies fevers.? She (unknown) (no (unknown) (unknown) today; this time (units (unknown) date) is exclusive of unknown) procedural time. (unknown) (no (unknown) (unknown) uses THC (units (unkno wn) date) intermittently as unknown) well as cocaine.? Patient states she is unsure of her (unknown) (no (unknown) (unknown) vaccination.? She (units (unknown) date) had testing sent unknown) for hereditary angioedema but does not know (unknown) (no (unknown) (unknown) vaginal bleeding (units (unknown) date) or discharge.? unknown) Patient states she has not been able to keep (unknown) (no (unknown) (unknown) vomiting, (units (unkn own) date) polysubstance unknown) abuse, alcohol use and angioedema.? Patient presents (unknown) (no (unknown) (unknown) was told that (units ( unknown) date) this is from her unknown) COVID vaccination.? She had testing sent for (unknown) (no (unknown) (unknown) what the results (units (unknown) date) of those unknown) were.?46-year-old female with history of cyclic (unknown) (no (unknown) (unknown) with complaint of (units (unknown) date) vomiting for the unknown) past 3 days.? Patient states this is similar Result panel 70 (unknown) (no (unknown) (unknown) (no value) (units (unk nown) date) unknown) (unknown) (no (unknown) (unknown) (no value) (units (unk nown) date) unknown) (unknown) (no (unknown) (unknown) Date of Service: (units (unknown) date) 04/13/22 unknown) (unknown) (no (unknown) (unknown) (no value) (units (unk nown) date) unknown) (unknown) (no (unknown) (unknown) - (units (unkno wn) date) unknown) (unknown) (no (unknown) (unknown) 04/13/22 09:20 (units (unknown) date) unknown) (unknown) (no (unknown) (unknown) ABLE TO (units (unkno wn) date) unknown) (unknown) (no (unknown) (unknown) Allergies (units (unkn own) date) unknown) (unknown) (no (unknown) (unknown) History + (units (unkn own) date) Physical Report unknown) (unknown) (no (unknown) (unknown) Home Medications (units (unknown) date) unknown) (unknown) (no (unknown) (unknown) [facility] (units (unknown) date) [address] unknown) [place] [address] (unknown) (no (unknown) (unknown) Laboratory (units (unk nown) date) Results - last 24 unknown) hr (unknown) (no (unknown) (unknown) PT STATES (units (unkn own) date) unknown) (unknown) (no (unknown) (unknown) [facility] (units (unkno wn) date) unknown) (unknown) (no (unknown) (unknown) TO IV SITE (units (unk nown) date) unknown) (unknown) (no (unknown) (unknown) methamphetamine (units (unknown) date) unknown) (unknown) (no (unknown) (unknown) (no value) (units (unk nown) date) unknown) (unknown) (no (unknown) (unknown) 04/13/22 04/13/22 (units (unknown) date) unknown) (unknown) (no (unknown) (unknown) 04/13/22 04/13/22 (units (unknown) date) 04/13/22 unknown) (unknown) (no (unknown) (unknown) 09:20 09:20 09:40 (units (unknown) date) unknown) (unknown) (no (unknown) (unknown) 09:40 09:55 11:01 (units (unknown) date) unknown) (unknown) (no (unknown) (unknown) 11:20 14:35 (units (un known) date) unknown) (unknown) (no (unknown) (unknown) 04/13/22 (units (unkno wn) date) unknown) (unknown) (no (unknown) (unknown) Medication (units (unk nown) date) Instructions unknown) Recorded Confirmed Type (unknown) (no (unknown) (unknown) vomiting #10 tabs (units (unknown) date) unknown) (unknown) (no (unknown) (unknown) (past 8 hours): (units (unknown) date) unknown) (unknown) (no (unknown) (unknown) 03/20/22 Rx (units (un known) date) unknown) (unknown) (no (unknown) (unknown) 09:33 04/13/22 (units (unknown) date) unknown) (unknown) (no (unknown) (unknown) 09:36 04/13/22 (units (unknown) date) unknown) (unknown) (no (unknown) (unknown) 1. Epigastric (units ( unknown) date) pain. Provide unknown) intravenous pantoprazole. Initial dose of 80 mg (unknown) (no (unknown) (unknown) 10:18 (units (unkno wn) date) unknown) (unknown) (no (unknown) (unknown) 10:30 04/13/22 (units (unknown) date) unknown) (unknown) (no (unknown) (unknown) 11:00 (units (unkno wn) date) unknown) (unknown) (no (unknown) (unknown) 11:00 04/13/22 (units (unknown) date) unknown) (unknown) (no (unknown) (unknown) 14:30 (units (unkno wn) date) unknown) (unknown) (no (unknown) (unknown) 2 visits of her (units (unknown) date) tongue.? Patient unknown) states she was told that this is from her COVID (unknown) (no (unknown) (unknown) 2. Persistent (units ( unknown) date) vomiting likely unknown) secondary to THC as has been in the past. (unknown) (no (unknown) (unknown) [id number] (units (unkno wn) date) unknown) (unknown) (no (unknown) (unknown) 3. Hypokalemia. (units (unknown) date) Replacement unknown) initiated in the emergency room. Follow labs this (unknown) (no (unknown) (unknown) 4. Anxiety. Treat (units (unknown) date) as needed. Will unknown) provide lorazepam and as needed. (unknown) (no (unknown) (unknown) 5. DVT (units (unkno wn) date) prophylaxis. unknown) Enoxaparin 40 mg subcu every 24 hours. (unknown) (no (unknown) (unknown) 6. Code status: (units (unknown) date) Presumed to be unknown) full code until told otherwise by the patient. (unknown) (no (unknown) (unknown) ALT (units (unkno wn) date) unknown) (unknown) (no (unknown) (unknown) ALT (units (unkno wn) date) unknown) (unknown) (no (unknown) (unknown) ALT 35 H (units (unkno wn) date) unknown) (unknown) (no (unknown) (unknown) AST (units (unkno wn) date) unknown) (unknown) (no (unknown) (unknown) AST (units (unkno wn) date) unknown) (unknown) (no (unknown) (unknown) AST 36 (units (unkno wn) date) unknown) (unknown) (no (unknown) (unknown) Abd: soft, (units (unk nown) date) epigastric unknown) tenderness, normal bowel sounds (unknown) (no (unknown) (unknown) Abscess (units (unkno wn) date) unknown) (unknown) (no (unknown) (unknown) Age/Sex: 46 / F (units (unknown) date) unknown) (unknown) (no (unknown) (unknown) Albumin (units (unkno wn) date) unknown) (unknown) (no (unknown) (unknown) Albumin (units (unkno wn) date) unknown) (unknown) (no (unknown) (unknown) Albumin 5.6 H (units ( unknown) date) unknown) (unknown) (no (unknown) (unknown) Albumin/Globulin (units (unknown) date) Ratio unknown) (unknown) (no (unknown) (unknown) Albumin/Globulin (units (unknown) date) Ratio unknown) (unknown) (no (unknown) (unknown) Albumin/Globulin (units (unknown) date) Ratio 1.1 unknown) (unknown) (no (unknown) (unknown) Alkaline (units (unkno wn) date) Phosphatase unknown) (unknown) (no (unknown) (unknown) Alkaline (units (unkno wn) date) Phosphatase unknown) (unknown) (no (unknown) (unknown) Alkaline (units (unkno wn) date) Phosphatase 96 unknown) (unknown) (no (unknown) (unknown) Allergy/AdvReac (units (unknown) date) Type Severity unknown) Reaction Status Date / Time (unknown) (no (unknown) (unknown) Assessment + Plan (units (unknown) date) unknown) (unknown) (no (unknown) (unknown) Assessment + Plan (units (unknown) date) narrative: unknown) (unknown) (no (unknown) (unknown) BUN (units (unkno wn) date) unknown) (unknown) (no (unknown) (unknown) BUN (units (unkno wn) date) unknown) (unknown) (no (unknown) (unknown) BUN 31 H (units (unkno wn) date) unknown) (unknown) (no (unknown) (unknown) BUN/Creatinine (units (unknown) date) Ratio unknown) (unknown) (no (unknown) (unknown) BUN/Creatinine (units (unknown) date) Ratio unknown) (unknown) (no (unknown) (unknown) BUN/Creatinine (units (unknown) date) Ratio 18.0 unknown) (unknown) (no (unknown) (unknown) Baso # (Auto) (units ( unknown) date) unknown) (unknown) (no (unknown) (unknown) Baso # (Auto) (units ( unknown) date) unknown) (unknown) (no (unknown) (unknown) Baso # (Auto) 0 (units (unknown) date) unknown) (unknown) (no (unknown) (unknown) Baso % (Auto) (units ( unknown) date) unknown) (unknown) (no (unknown) (unknown) Baso % (Auto) (units ( unknown) date) unknown) (unknown) (no (unknown) (unknown) Baso % (Auto) 0.5 (units (unknown) date) unknown) (unknown) (no (unknown) (unknown) Been Physically (units (unknown) date) Hurt or No unknown) (unknown) (no (unknown) (unknown) Blood Pressure (units (unknown) date) 125/75 unknown) (unknown) (no (unknown) (unknown) Blood Pressure (units (unknown) date) 116/82 126/80 unknown) (unknown) (no (unknown) (unknown) Blood Pressure (units (unknown) date) 151/93 H 151/93 H unknown) (unknown) (no (unknown) (unknown) CV: RRR, no (units (un known) date) murmur or rubs unknown) (unknown) (no (unknown) (unknown) Calcium (units (unkno wn) date) unknown) (unknown) (no (unknown) (unknown) Calcium (units (unkno wn) date) unknown) (unknown) (no (unknown) (unknown) Calcium 10.4 H (units (unknown) date) unknown) (unknown) (no (unknown) (unknown) Carbon Dioxide (units (unknown) date) unknown) (unknown) (no (unknown) (unknown) Carbon Dioxide (units (unknown) date) unknown) (unknown) (no (unknown) (unknown) Carbon Dioxide 32 (units (unknown) date) unknown) (unknown) (no (unknown) (unknown) Chief complaint: (units (unknown) date) cyclical vomiting unknown) (unknown) (no (unknown) (unknown) Chloride (units (unkno wn) date) unknown) (unknown) (no (unknown) (unknown) Chloride (units (unkno wn) date) unknown) (unknown) (no (unknown) (unknown) Chloride 82 L (units ( unknown) date) unknown) (unknown) (no (unknown) (unknown) Chronic abdominal (units (unknown) date) pain unknown) (unknown) (no (unknown) (unknown) Creatinine (units (unk nown) date) unknown) (unknown) (no (unknown) (unknown) Creatinine (units (unk nown) date) unknown) (unknown) (no (unknown) (unknown) Creatinine 1.72 H (units (unknown) date) unknown) (unknown) (no (unknown) (unknown) Critical Care (units ( unknown) date) time: unknown) (unknown) (no (unknown) (unknown) Cyclic vomiting (units (unknown) date) syndrome unknown) (unknown) (no (unknown) (unknown) : 1975 (units (unknown) date) Acct:[id number] unknown) (unknown) (no (unknown) (unknown) Daughter (units (unkno wn) date) Angio-edema unknown) (unknown) (no (unknown) (unknown) Environment (units (un known) date) unknown) (unknown) (no (unknown) (unknown) Eos # (Auto) (units (u nknown) date) unknown) (unknown) (no (unknown) (unknown) Eos # (Auto) (units (u nknown) date) unknown) (unknown) (no (unknown) (unknown) Eos # (Auto) 0 (units (unknown) date) unknown) (unknown) (no (unknown) (unknown) Eos % (Auto) (units (u nknown) date) unknown) (unknown) (no (unknown) (unknown) Eos % (Auto) (units (u nknown) date) unknown) (unknown) (no (unknown) (unknown) Eos % (Auto) 0.1 (units (unknown) date) L unknown) (unknown) (no (unknown) (unknown) Estimated GFR (units ( unknown) date) unknown) (unknown) (no (unknown) (unknown) Estimated GFR (units ( unknown) date) unknown) (unknown) (no (unknown) (unknown) Estimated GFR 36 (units (unknown) date) L unknown) (unknown) (no (unknown) (unknown) Ethyl Alcohol (units ( unknown) date) unknown) (unknown) (no (unknown) (unknown) Ethyl Alcohol (units ( unknown) date) unknown) (unknown) (no (unknown) (unknown) Ethyl Alcohol < (units (unknown) date) 10 unknown) (unknown) (no (unknown) (unknown) Exam (units (unkno wn) date) unknown) (unknown) (no (unknown) (unknown) Exam Narrative: (units (unknown) date) unknown) (unknown) (no (unknown) (unknown) Extremities: (units (u nknown) date) moves all 4 unknown) extremities, is ambulatory, negative Eun?s sign (unknown) (no (unknown) (unknown) Family + Social (units (unknown) date) History unknown) (unknown) (no (unknown) (unknown) Family History (units (unknown) date) (Reviewed 04/13/22 unknown) @ 09:52 by Mine Harrington DO) (unknown) (no (unknown) (unknown) Family history of (units (unknown) date) angioedema unknown) (unknown) (no (unknown) (unknown) Father (units (unkno wn) date) Hypertension unknown) (unknown) (no (unknown) (unknown) Feels Safe in (units ( unknown) date) Current Yes unknown) (unknown) (no (unknown) (unknown) [employer] system (units (unknown) date) review completed unknown) completed and pertinent findings are in the (unknown) (no (unknown) (unknown) Gen: Alert, (units (un known) date) oriented, thin 46 unknown) y.o. , very lethargic (unknown) (no (unknown) (unknown) Globulin (units (unkno wn) date) unknown) (unknown) (no (unknown) (unknown) Globulin (units (unkno wn) date) unknown) (unknown) (no (unknown) (unknown) Globulin 4.9 H (units (unknown) date) unknown) (unknown) (no (unknown) (unknown) Glucose (units (unkno wn) date) unknown) (unknown) (no (unknown) (unknown) Glucose (units (unkno wn) date) unknown) (unknown) (no (unknown) (unknown) Glucose 134 H (units ( unknown) date) unknown) (unknown) (no (unknown) (unknown) HEENT: (units (unkno wn) date) normocephalic, unknown) atraumatic, conjunctiva clear, sclera non-icteric, oral (unknown) (no (unknown) (unknown) Hct (units (unkno wn) date) unknown) (unknown) (no (unknown) (unknown) Hct (units (unkno wn) date) unknown) (unknown) (no (unknown) (unknown) Hct 44.2 (units (unkno wn) date) unknown) (unknown) (no (unknown) (unknown) Hgb (units (unkno wn) date) unknown) (unknown) (no (unknown) (unknown) Hgb (units (unkno wn) date) unknown) (unknown) (no (unknown) (unknown) Hgb 15.4 (units (unkno wn) date) unknown) (unknown) (no (unknown) (unknown) History of (units (unk nown) date) Present Illness unknown) (unknown) (no (unknown) (unknown) Home Medications (units (unknown) date) and Allergies unknown) (unknown) (no (unknown) (unknown) Hx of (units (unkno wn) date) appendectomy unknown) (unknown) (no (unknown) (unknown) Hx of (units (unkno wn) date) cholecystectomy unknown) (unknown) (no (unknown) (unknown) I spent a total (units (unknown) date) of [] minutes of unknown) critical care time on this patient's care (unknown) (no (unknown) (unknown) Ketones (units (unkno wn) date) unknown) (unknown) (no (unknown) (unknown) Ketones (units (unkno wn) date) unknown) (unknown) (no (unknown) (unknown) Ketones 0.20 (units (u nknown) date) unknown) (unknown) (no (unknown) (unknown) Labs (units (unkno wn) date) unknown) (unknown) (no (unknown) (unknown) Labs: (units (unkno wn) date) unknown) (unknown) (no (unknown) (unknown) Lactate (units (unkno wn) date) unknown) (unknown) (no (unknown) (unknown) Lactate 9.7 H* (units (unknown) date) unknown) (unknown) (no (unknown) (unknown) Lactate 3.0 H 1.3 (units (unknown) date) unknown) (unknown) (no (unknown) (unknown) Lipase (units (unkno wn) date) unknown) (unknown) (no (unknown) (unknown) Lipase (units (unkno wn) date) unknown) (unknown) (no (unknown) (unknown) Lipase 96 (units (unkn own) date) unknown) (unknown) (no (unknown) (unknown) Lymph # (Auto) (units (unknown) date) unknown) (unknown) (no (unknown) (unknown) Lymph # (Auto) (units (unknown) date) unknown) (unknown) (no (unknown) (unknown) Lymph # (Auto) (units (unknown) date) 1300 unknown) (unknown) (no (unknown) (unknown) Lymph % (Auto) (units (unknown) date) unknown) (unknown) (no (unknown) (unknown) Lymph % (Auto) (units (unknown) date) unknown) (unknown) (no (unknown) (unknown) Lymph % (Auto) (units (unknown) date) 20.9 L unknown) (unknown) (no (unknown) (unknown) MCH (units (unkno wn) date) unknown) (unknown) (no (unknown) (unknown) MCH (units (unkno wn) date) unknown) (unknown) (no (unknown) (unknown) MCH 32.4 (units (unkno wn) date) unknown) (unknown) (no (unknown) (unknown) MCHC (units (unkno wn) date) unknown) (unknown) (no (unknown) (unknown) MCHC (units (unkno wn) date) unknown) (unknown) (no (unknown) (unknown) MCHC 35.0 (units (unkn own) date) unknown) (unknown) (no (unknown) (unknown) MCV (units (unkno wn) date) unknown) (unknown) (no (unknown) (unknown) MCV (units (unkno wn) date) unknown) (unknown) (no (unknown) (unknown) MCV 92.6 (units (unkno wn) date) unknown) (unknown) (no (unknown) (unknown) 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 (unknown) (no (unknown) (unknown) Marijuana use, (units (unknown) date) continuous unknown) (unknown) (no (unknown) (unknown) Medical History (units (unknown) date) (Reviewed 04/13/22 unknown) @ 09:52 by Mine Harrington DO) (unknown) (no (unknown) (unknown) Meds (units (unkno wn) date) unknown) (unknown) (no (unknown) (unknown) Centre # (Auto) (units ( unknown) date) unknown) (unknown) (no (unknown) (unknown) Centre # (Auto) (units ( unknown) date) unknown) (unknown) (no (unknown) (unknown) Centre # (Auto) 500 (units (unknown) date) unknown) (unknown) (no (unknown) (unknown) Centre % (Auto) (units ( unknown) date) unknown) (unknown) (no (unknown) (unknown) Centre % (Auto) (units ( unknown) date) unknown) (unknown) (no (unknown) (unknown) Centre % (Auto) 8.7 (units (unknown) date) unknown) (unknown) (no (unknown) (unknown) Mother Diabetes (units (unknown) date) mellitus unknown) (unknown) (no (unknown) (unknown) Narrative (units (unkn own) date) unknown) (unknown) (no (unknown) (unknown) Narrative: (units (unk nown) date) unknown) (unknown) (no (unknown) (unknown) Neck: supple, (units ( unknown) date) full ROM, no JVD, unknown) trachea is midline (unknown) (no (unknown) (unknown) Neuro: Unable to (units (unknown) date) stay awake while unknown) speaking (unknown) (no (unknown) (unknown) Neut # (Auto) (units ( unknown) date) unknown) (unknown) (no (unknown) (unknown) Neut # (Auto) (units ( unknown) date) unknown) (unknown) (no (unknown) (unknown) Neut # (Auto) (units ( unknown) date) 4300 unknown) (unknown) (no (unknown) (unknown) Neut % (Auto) (units ( unknown) date) unknown) (unknown) (no (unknown) (unknown) Neut % (Auto) (units ( unknown) date) unknown) (unknown) (no (unknown) (unknown) Neut % (Auto) (units ( unknown) date) 69.8 unknown) (unknown) (no (unknown) (unknown) Not in the mood (units (unknown) date) to discuss at this unknown) time. (unknown) (no (unknown) (unknown) Objective (units (unkn own) date) unknown) (unknown) (no (unknown) (unknown) Other Colon (units (un known) date) cancer unknown) (unknown) (no (unknown) (unknown) Oxygen Delivery (units (unknown) date) Method unknown) (unknown) (no (unknown) (unknown) Oxygen Delivery (units (unknown) date) Method unknown) (unknown) (no (unknown) (unknown) Oxygen Delivery (units (unknown) date) Method Room Air unknown) (unknown) (no (unknown) (unknown) Oxygen Delivery (units (unknown) date) Method Room Air unknown) Room Air (unknown) (no (unknown) (unknown) Oxygen Flow Rate (units (unknown) date) unknown) (unknown) (no (unknown) (unknown) Oxygen Flow Rate (units (unknown) date) 0 unknown) (unknown) (no (unknown) (unknown) Oxygen Flow Rate (units (unknown) date) 0 unknown) (unknown) (no (unknown) (unknown) Pancreatitis (units (u nknown) date) unknown) (unknown) (no (unknown) (unknown) Patient History (units (unknown) date) unknown) (unknown) (no (unknown) (unknown) Patient states (units (unknown) date) she is been unknown) stooling regularly with no diarrhea or constipation (unknown) (no (unknown) (unknown) Patient: (units (unkno wn) date) Dameon Castro MR#: unknown) [id number] (unknown) (no (unknown) (unknown) Phenergan (units (unkn own) date) suppository this unknown) morning which was not helpful.? Patient states no (unknown) (no (unknown) (unknown) Plt Count (units (unkn own) date) unknown) (unknown) (no (unknown) (unknown) Plt Count (units (unkn own) date) unknown) (unknown) (no (unknown) (unknown) Plt Count 284 (units ( unknown) date) unknown) (unknown) (no (unknown) (unknown) Potassium (units (unkn own) date) unknown) (unknown) (no (unknown) (unknown) Potassium (units (unkn own) date) unknown) (unknown) (no (unknown) (unknown) Potassium 2.7 L* (units (unknown) date) unknown) (unknown) (no (unknown) (unknown) Provider: (units (unkn own) date) Ernestina Jara unknown) (unknown) (no (unknown) (unknown) Psyche: mildly (units (unknown) date) agitated when unknown) awakened. Patient's main focus is complaining (unknown) (no (unknown) (unknown) Pulse Oximetry 96 (units (unknown) date) unknown) (unknown) (no (unknown) (unknown) Pulse Oximetry 95 (units (unknown) date) 96 unknown) (unknown) (no (unknown) (unknown) Pulse Oximetry 98 (units (unknown) date) 100 96 unknown) (unknown) (no (unknown) (unknown) Pulse Rate 91 H (units (unknown) date) unknown) (unknown) (no (unknown) (unknown) Pulse Rate 79 74 (units (unknown) date) unknown) (unknown) (no (unknown) (unknown) Pulse Rate 90 98 (units (unknown) date) H 89 unknown) (unknown) (no (unknown) (unknown) RBC (units (unkno wn) date) unknown) (unknown) (no (unknown) (unknown) RBC (units (unkno wn) date) unknown) (unknown) (no (unknown) (unknown) RBC 4.77 (units (unkno wn) date) unknown) (unknown) (no (unknown) (unknown) RDW (units (unkno wn) date) unknown) (unknown) (no (unknown) (unknown) RDW (units (unkno wn) date) unknown) (unknown) (no (unknown) (unknown) RDW 13.8 (units (unkno wn) date) unknown) (unknown) (no (unknown) (unknown) Resp: Lungs CTA, (units (unknown) date) non-labored unknown) breathing (unknown) (no (unknown) (unknown) Respiratory Rate (units (unknown) date) unknown) (unknown) (no (unknown) (unknown) Respiratory Rate (units (unknown) date) 16 unknown) (unknown) (no (unknown) (unknown) Respiratory Rate (units (unknown) date) 24 22 unknown) (unknown) (no (unknown) (unknown) Result Diagrams: (units (unknown) date) unknown) (unknown) (no (unknown) (unknown) Review of Systems (units (unknown) date) unknown) (unknown) (no (unknown) (unknown) SARS-CoV-2 (PCR) (units (unknown) date) unknown) (unknown) (no (unknown) (unknown) SARS-CoV-2 (PCR) (units (unknown) date) unknown) (unknown) (no (unknown) (unknown) SARS-CoV-2 (PCR) (units (unknown) date) Negative unknown) (unknown) (no (unknown) (unknown) Safety + (units (unkno wn) date) Behavioral: unknown) (unknown) (no (unknown) (unknown) Signed By: (units (unk nown) date) unknown) (unknown) (no (unknown) (unknown) Skin: no lesions (units (unknown) date) or rashes, dry and unknown) intact (unknown) (no (unknown) (unknown) Smoking Status (units (unknown) date) Current every day unknown) smoker (unknown) (no (unknown) (unknown) Social History: (units (unknown) date) unknown) (unknown) (no (unknown) (unknown) Sodium (units (unkno wn) date) unknown) (unknown) (no (unknown) (unknown) Sodium (units (unkno wn) date) unknown) (unknown) (no (unknown) (unknown) Sodium 138 (units (unk nown) date) unknown) (unknown) (no (unknown) (unknown) Substance Use (units ( unknown) date) Type former unknown) substance user,marijuana,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, (unknown) (no (unknown) (unknown) Surgical History (units (unknown) date) (Reviewed 04/13/22 unknown) @ 09:52 by Mine Harrington DO) (unknown) (no (unknown) (unknown) Temperature (units (un known) date) unknown) (unknown) (no (unknown) (unknown) Temperature 97.8 (units (unknown) date) F unknown) (unknown) (no (unknown) (unknown) Temperature 98.0 (units (unknown) date) F unknown) (unknown) (no (unknown) (unknown) This is a This is (units (unknown) date) a 46-year-old unknown) female with history of cyclic vomiting, (unknown) (no (unknown) (unknown) Threatened By a (units (unknown) date) Person unknown) (unknown) (no (unknown) (unknown) Time Spent With (units (unknown) date) Patient unknown) (unknown) (no (unknown) (unknown) Tobacco + (units (unkn own) date) Substance use: unknown) (unknown) (no (unknown) (unknown) Tobacco type (units (u nknown) date) e-cigarettes unknown) (unknown) (no (unknown) (unknown) Total Bilirubin (units (unknown) date) unknown) (unknown) (no (unknown) (unknown) Total Bilirubin (units (unknown) date) unknown) (unknown) (no (unknown) (unknown) Total Bilirubin (units (unknown) date) 1.4 H unknown) (unknown) (no (unknown) (unknown) Total Protein (units ( unknown) date) unknown) (unknown) (no (unknown) (unknown) Total Protein (units ( unknown) date) unknown) (unknown) (no (unknown) (unknown) Total Protein (units ( unknown) date) 10.5 H unknown) (unknown) (no (unknown) (unknown) VBG Base Excess (units (unknown) date) unknown) (unknown) (no (unknown) (unknown) VBG Base Excess (units (unknown) date) unknown) (unknown) (no (unknown) (unknown) VBG Base Excess (units (unknown) date) 22.0 H unknown) (unknown) (no (unknown) (unknown) VBG HCO3 (units () ) unknown) (unknown) (no (unknown) (unknown) VBG HCO3 (units () ) unknown) (unknown) (no (unknown) (unknown) VBG HCO3 43 H (units ( unknown) date) unknown) (unknown) (no (unknown) (unknown) VBG O2 Saturation (units (unknown) date) unknown) (unknown) (no (unknown) (unknown) VBG O2 Saturation (units (unknown) date) unknown) (unknown) (no (unknown) (unknown) VBG O2 Saturation (units (unknown) date) 97 H unknown) (unknown) (no (unknown) (unknown) VBG Total CO2 (units ( unknown) date) unknown) (unknown) (no (unknown) (unknown) VBG Total CO2 (units ( unknown) date) unknown) (unknown) (no (unknown) (unknown) VBG Total CO2 44 (units (unknown) date) H unknown) (unknown) (no (unknown) (unknown) VBG pCO2 (units () ) unknown) (unknown) (no (unknown) (unknown) VBG pCO2 (units () ) unknown) (unknown) (no (unknown) (unknown) VBG pCO2 40.7 L (units (unknown) date) unknown) (unknown) (no (unknown) (unknown) VBG pH (units () ) unknown) (unknown) (no (unknown) (unknown) VBG pH (units (unkno wn) date) unknown) (unknown) (no (unknown) (unknown) VBG pH 7.63 H (units ( unknown) date) unknown) (unknown) (no (unknown) (unknown) VBG pO2 (units (unkno wn) date) unknown) (unknown) (no (unknown) (unknown) VBG pO2 (units (unkno wn) date) unknown) (unknown) (no (unknown) (unknown) VBG pO2 79 H (units (u nknown) date) unknown) (unknown) (no (unknown) (unknown) Vital Signs (units (un known) date) unknown) (unknown) (no (unknown) (unknown) WBC (units (unkno wn) date) unknown) (unknown) (no (unknown) (unknown) WBC (units (unkno wn) date) unknown) (unknown) (no (unknown) (unknown) WBC 6.2 (units (unkno wn) date) unknown) (unknown) (no (unknown) (unknown) [Embedded Image (units (unknown) date) Not Available] unknown) (unknown) (no (unknown) (unknown) [METOCLOPRAMIDE] (units (unknown) date) unknown) (unknown) (no (unknown) (unknown) able to keep down (units (unknown) date) her home unknown) medications the last couple days but did try (unknown) (no (unknown) (unknown) about her (units (unkn own) date) abdominal pain. unknown) (unknown) (no (unknown) (unknown) alcohol intake (units (unknown) date) current unknown) (unknown) (no (unknown) (unknown) alcohol intake (units (unknown) date) frequency 3 or unknown) more drinks per day (unknown) (no (unknown) (unknown) allergies to (units (un known) date) Reglan, unknown) promethazine IV but can tolerate per rectum and latex.? She (unknown) (no (unknown) (unknown) amlodipine 5 mg (units (unknown) date) tablet 5 mg PO unknown) DAILY 03/20/22 03/20/22 History (unknown) (no (unknown) (unknown) and 40 mg q.12h. (units (unknown) date) unknown) (unknown) (no (unknown) (unknown) and denies any (units (unknown) date) black or bloody unknown) stools.? She states no dysuria, urgency or (unknown) (no (unknown) (unknown) black or bloody (units (unknown) date) stools.? She unknown) states no dysuria, urgency or frequency.? No (unknown) (no (unknown) (unknown) bupropion HCl 100 (units (unknown) date) mg tablet,12 hr unknown) 100 mg PO DAILY 03/20/22 03/20/22 History (unknown) (no (unknown) (unknown) complaint of (units (u nknown) date) vomiting for the unknown) past 3 days.? Patient states this is similar to (unknown) (no (unknown) (unknown) cream (units (unkno wn) date) unknown) (unknown) (no (unknown) (unknown) denies any (units (unk nown) date) hemoptysis.? unknown) States her pain is typical of her past episodes.? (unknown) (no (unknown) (unknown) does use tobacco, (units (unknown) date) states she drinks unknown) 3-5 alcoholic drinks daily and states she (unknown) (no (unknown) (unknown) down her home (units (u nknown) date) medications the unknown) last couple days but did try Phenergan suppository (unknown) (no (unknown) (unknown) drinks daily and (units (unknown) date) states she uses unknown) THC intermittently as well as cocaine.? Patient (unknown) (no (unknown) (unknown) evening and (units (un known) date) determine unknown) placement is necessary. (unknown) (no (unknown) (unknown) fluconazole 200 (units (unknown) date) mg tablet 200 mg unknown) PO WEEKLY 4 weeks #4 tabs 03/21/22 Rx (unknown) (no (unknown) (unknown) frequency.? No (units (unknown) date) vaginal bleeding unknown) or discharge.? Patient states she has not been (unknown) (no (unknown) (unknown) hemoptysis.? (units (u nknown) date) States her pain is unknown) typical of her past episodes.? Patient states (unknown) (no (unknown) (unknown) her prior cyclic (units (unknown) date) vomiting episodes unknown) in the past.? She denies fevers.? 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 (unknown) (no (unknown) (unknown) history of chief (units (unknown) date) complaint unknown) (unknown) (no (unknown) (unknown) household members (units (unknown) date) spouse unknown) (unknown) (no (unknown) (unknown) today.? We (units (unknown) date) did discuss that unknown) she was noted to have angioedema on the last (unknown) (no (unknown) (unknown) last cocaine use (units (unknown) date) but does not think unknown) it was recently.? She is accompanied by her (unknown) (no (unknown) (unknown) latex [LATEX] (units ( unknown) date) Allergy Unknown unknown) Verified 04/13/22 09:42 (unknown) (no (unknown) (unknown) lorazepam 0.5 mg (units (unknown) date) tablet (Ativan) unknown) 0.5 mg PO DAILY PRN nausea and 11/03/21 (unknown) (no (unknown) (unknown) metoclopramide (units (unknown) date) AdvReac Unknown unknown) DYSTONIA Verified 04/13/22 09:42 (unknown) (no (unknown) (unknown) miconazole (units (unk nown) date) nitrate 2 % unknown) topical 1 applic topical BID #30 grams 03/21/22 Rx (unknown) (no (unknown) (unknown) mucosa pink and (units (unknown) date) moist unknown) (unknown) (no (unknown) (unknown) noted to have (units (u nknown) date) angioedema on the unknown) last 2 visits of her tongue.? Patient states she (unknown) (no (unknown) (unknown) ondansetron 4 mg (units (unknown) date) disintegrating 4 unknown) mg PO Q8H PRN nausea and 07/28/19 08/26/21 Rx (unknown) (no (unknown) (unknown) ondansetron 8 mg (units (unknown) date) disintegrating 8 unknown) mg PO TID PRN Nausea 09/18/19 03/20/22 History (unknown) (no (unknown) (unknown) per rectum and (units (unknown) date) latex.? She does unknown) use tobacco, states she drinks 3-5 alcoholic (unknown) (no (unknown) (unknown) polysubstance (units ( unknown) date) abuse, alcohol use unknown) and angioedema.? Patient presents with (unknown) (no (unknown) (unknown) potassium (units (unkn own) date) chloride 20 mEq 20 unknown) meq PO DAILY #30 tabs 03/21/22 Rx (unknown) (no (unknown) (unknown) promethazine (units (u nknown) date) [PROMETHAZINE] unknown) Allergy Mild ERYTHEMA Verified 04/13/22 09:42 (unknown) (no (unknown) (unknown) recently.? She is (units (unknown) date) accompanied by her unknown) today.? We did discuss that she was (unknown) (no (unknown) (unknown) she is been (units (un known) date) stooling regularly unknown) with no diarrhea or constipation and denies any (unknown) (no (unknown) (unknown) she is been (units (un known) date) vomiting up unknown) everything she tries to put in her stomach, denies any (unknown) (no (unknown) (unknown) spray headache #1 (units (unknown) date) ea unknown) (unknown) (no (unknown) (unknown) states she is (units ( unknown) date) been vomiting up unknown) everything she tries to put in her stomach, (unknown) (no (unknown) (unknown) states she is (units ( unknown) date) unsure of her last unknown) cocaine use but does not think it was (unknown) (no (unknown) (unknown) sumatriptan 5 (units ( unknown) date) mg/actuation nasal unknown) 5 mg intranasal Q2-4H PRN migraine 06/04/21 (unknown) (no (unknown) (unknown) surgeries.? She (units (unknown) date) does have unknown) allergies to Reglan, promethazine IV but can tolerate (unknown) (no (unknown) (unknown) sustained-release (units (unknown) date) unknown) (unknown) (no (unknown) (unknown) tablet (units (unkno wn) date) unknown) (unknown) (no (unknown) (unknown) tablet vomiting (units (unknown) date) #10 tabs unknown) (unknown) (no (unknown) (unknown) tablet,extended (units (unknown) date) release unknown) (unknown) (no (unknown) (unknown) this morning which (units (unknown) date) was not helpful.? unknown) Patient states no surgeries.? She does have (unknown) (no (unknown) (unknown) to her prior (units (u nknown) date) cyclic vomiting unknown) episodes in the past.? She denies fevers.? She (unknown) (no (unknown) (unknown) today; this time (units (unknown) date) is exclusive of unknown) procedural time. (unknown) (no (unknown) (unknown) uses THC (units (unkno wn) date) intermittently as unknown) well as cocaine.? Patient states she is unsure of her (unknown) (no (unknown) (unknown) vaccination.? She (units (unknown) date) had testing sent unknown) for hereditary angioedema but does not know (unknown) (no (unknown) (unknown) vaginal bleeding (units (unknown) date) or discharge.? unknown) Patient states she has not been able to keep (unknown) (no (unknown) (unknown) vomiting, (units (unkn own) date) polysubstance unknown) abuse, alcohol use and angioedema.? Patient presents (unknown) (no (unknown) (unknown) was told that (units ( unknown) date) this is from her unknown) COVID vaccination.? She had testing sent for (unknown) (no (unknown) (unknown) what the results (units (unknown) date) of those unknown) were.?46-year-old female with history of cyclic (unknown) (no (unknown) (unknown) with complaint of (units (unknown) date) vomiting for the unknown) past 3 days.? Patient states this is similar Result panel 71 (unknown) (no (unknown) (unknown) (no value) (units (unk nown) date) unknown) (unknown) (no (unknown) (unknown) (no value) (units (unk nown) date) unknown) (unknown) (no (unknown) (unknown) Date of Service: (units (unknown) date) 04/13/22 unknown) (unknown) (no (unknown) (unknown) (no value) (units (unk nown) date) unknown) (unknown) (no (unknown) (unknown) - (units (unkno wn) date) unknown) (unknown) (no (unknown) (unknown) 04/13/22 09:20 (units (unknown) date) unknown) (unknown) (no (unknown) (unknown) ABLE TO (units (unkno wn) date) unknown) (unknown) (no (unknown) (unknown) Allergies (units (unkn own) date) unknown) (unknown) (no (unknown) (unknown) History + (units (unkn own) date) Physical Report unknown) (unknown) (no (unknown) (unknown) Home Medications (units (unknown) date) unknown) (unknown) (no (unknown) (unknown) [facility] (units (unknown) date) [address] unknown) [place] [address] (unknown) (no (unknown) (unknown) Laboratory (units (unk nown) date) Results - last 24 unknown) hr (unknown) (no (unknown) (unknown) PT STATES (units (unkn own) date) unknown) (unknown) (no (unknown) (unknown) [facility] (units (unkno wn) date) unknown) (unknown) (no (unknown) (unknown) TO IV SITE (units (unk nown) date) unknown) (unknown) (no (unknown) (unknown) methamphetamine (units (unknown) date) unknown) (unknown) (no (unknown) (unknown) (no value) (units (unk nown) date) unknown) (unknown) (no (unknown) (unknown) 04/13/22 04/13/22 (units (unknown) date) unknown) (unknown) (no (unknown) (unknown) 04/13/22 04/13/22 (units (unknown) date) 04/13/22 unknown) (unknown) (no (unknown) (unknown) 09:20 09:20 09:40 (units (unknown) date) unknown) (unknown) (no (unknown) (unknown) 09:40 09:55 11:01 (units (unknown) date) unknown) (unknown) (no (unknown) (unknown) 11:20 14:35 (units (un known) date) unknown) (unknown) (no (unknown) (unknown) 04/13/22 (units (unkno wn) date) unknown) (unknown) (no (unknown) (unknown) Medication (units (unk nown) date) Instructions unknown) Recorded Confirmed Type (unknown) (no (unknown) (unknown) labs this evening (units (unknown) date) and determine unknown) further placement is necessary. (unknown) (no (unknown) (unknown) (past 8 hours): (units (unknown) date) unknown) (unknown) (no (unknown) (unknown) 09:33 04/13/22 (units (unknown) date) unknown) (unknown) (no (unknown) (unknown) 09:36 04/13/22 (units (unknown) date) unknown) (unknown) (no (unknown) (unknown) 1. Epigastric (units ( unknown) date) pain. Provide unknown) intravenous pantoprazole. Initial dose of 80 mg (unknown) (no (unknown) (unknown) 10:18 (units (unkno wn) date) unknown) (unknown) (no (unknown) (unknown) 10:30 04/13/22 (units (unknown) date) unknown) (unknown) (no (unknown) (unknown) 11:00 (units (unkno wn) date) unknown) (unknown) (no (unknown) (unknown) 11:00 04/13/22 (units (unknown) date) unknown) (unknown) (no (unknown) (unknown) 14:30 (units (unkno wn) date) unknown) (unknown) (no (unknown) (unknown) 2 visits of her (units (unknown) date) tongue.? Patient unknown) states she was told that this is from her COVID (unknown) (no (unknown) (unknown) 2. Persistent (units ( unknown) date) vomiting likely unknown) secondary to THC as has been in the past. Treat (unknown) (no (unknown) (unknown) [address] (units (unkno wn) date) unknown) (unknown) (no (unknown) (unknown) 3. Hypokalemia. (units (unknown) date) Replacement unknown) initiated in the emergency room. Continue. Follow (unknown) (no (unknown) (unknown) 4. Anxiety. Treat (units (unknown) date) as needed. Will unknown) provide lorazepam and as needed. (unknown) (no (unknown) (unknown) 5. DVT (units (o wn) date) prophylaxis. unknown) Enoxaparin 40 mg subcu every 24 hours. (unknown) (no (unknown) (unknown) 6. Code status: (units (unknown) date) Presumed to be unknown) full code until told otherwise by the patient. (unknown) (no (unknown) (unknown) ALT (units (unkno wn) date) unknown) (unknown) (no (unknown) (unknown) ALT (units (o wn) date) unknown) (unknown) (no (unknown) (unknown) ALT 35 H (units (o wn) date) unknown) (unknown) (no (unknown) (unknown) AST (units (o wn) date) unknown) (unknown) (no (unknown) (unknown) AST (units (o wn) date) unknown) (unknown) (no (unknown) (unknown) AST 36 (units (o wn) date) unknown) (unknown) (no (unknown) (unknown) Abd: soft, (units (unk nown) date) epigastric unknown) tenderness, normal bowel sounds (unknown) (no (unknown) (unknown) Abscess (units (o wn) date) unknown) (unknown) (no (unknown) (unknown) Age/Sex: 46 / F (units (unknown) date) unknown) (unknown) (no (unknown) (unknown) Albumin (units (o wn) date) unknown) (unknown) (no (unknown) (unknown) Albumin (units (o wn) date) unknown) (unknown) (no (unknown) (unknown) Albumin 5.6 H (units ( unknown) date) unknown) (unknown) (no (unknown) (unknown) Albumin/Globulin (units (unknown) date) Ratio unknown) (unknown) (no (unknown) (unknown) Albumin/Globulin (units (unknown) date) Ratio unknown) (unknown) (no (unknown) (unknown) Albumin/Globulin (units (unknown) date) Ratio 1.1 unknown) (unknown) (no (unknown) (unknown) Alkaline (units (o wn) date) Phosphatase unknown) (unknown) (no (unknown) (unknown) Alkaline (units (unkno wn) date) Phosphatase unknown) (unknown) (no (unknown) (unknown) Alkaline (units (unkno wn) date) Phosphatase 96 unknown) (unknown) (no (unknown) (unknown) Allergy/AdvReac (units (unknown) date) Type Severity unknown) Reaction Status Date / Time (unknown) (no (unknown) (unknown) Assessment + Plan (units (unknown) date) unknown) (unknown) (no (unknown) (unknown) Assessment + Plan (units (unknown) date) narrative: unknown) (unknown) (no (unknown) (unknown) BUN (units (unkno wn) date) unknown) (unknown) (no (unknown) (unknown) BUN (units (unkno wn) date) unknown) (unknown) (no (unknown) (unknown) BUN 31 H (units (unkno wn) date) unknown) (unknown) (no (unknown) (unknown) BUN/Creatinine (units (unknown) date) Ratio unknown) (unknown) (no (unknown) (unknown) BUN/Creatinine (units (unknown) date) Ratio unknown) (unknown) (no (unknown) (unknown) BUN/Creatinine (units (unknown) date) Ratio 18.0 unknown) (unknown) (no (unknown) (unknown) Baso # (Auto) (units ( unknown) date) unknown) (unknown) (no (unknown) (unknown) Baso # (Auto) (units ( unknown) date) unknown) (unknown) (no (unknown) (unknown) Baso # (Auto) 0 (units (unknown) date) unknown) (unknown) (no (unknown) (unknown) Baso % (Auto) (units ( unknown) date) unknown) (unknown) (no (unknown) (unknown) Baso % (Auto) (units ( unknown) date) unknown) (unknown) (no (unknown) (unknown) Baso % (Auto) 0.5 (units (unknown) date) unknown) (unknown) (no (unknown) (unknown) Been Physically (units (unknown) date) Hurt or No unknown) (unknown) (no (unknown) (unknown) Blood Pressure (units (unknown) date) 125/75 unknown) (unknown) (no (unknown) (unknown) Blood Pressure (units (unknown) date) 116/82 126/80 unknown) (unknown) (no (unknown) (unknown) Blood Pressure (units (unknown) date) 151/93 H 151/93 H unknown) (unknown) (no (unknown) (unknown) CV: RRR, no (units (un known) date) murmur or rubs unknown) (unknown) (no (unknown) (unknown) Calcium (units (unkno wn) date) unknown) (unknown) (no (unknown) (unknown) Calcium (units (unkno wn) date) unknown) (unknown) (no (unknown) (unknown) Calcium 10.4 H (units (unknown) date) unknown) (unknown) (no (unknown) (unknown) Carbon Dioxide (units (unknown) date) unknown) (unknown) (no (unknown) (unknown) Carbon Dioxide (units (unknown) date) unknown) (unknown) (no (unknown) (unknown) Carbon Dioxide 32 (units (unknown) date) unknown) (unknown) (no (unknown) (unknown) Chief complaint: (units (unknown) date) cyclical vomiting unknown) (unknown) (no (unknown) (unknown) Chloride (units (unkno wn) date) unknown) (unknown) (no (unknown) (unknown) Chloride (units (unkno wn) date) unknown) (unknown) (no (unknown) (unknown) Chloride 82 L (units ( unknown) date) unknown) (unknown) (no (unknown) (unknown) Chronic abdominal (units (unknown) date) pain unknown) (unknown) (no (unknown) (unknown) Creatinine (units (unk nown) date) unknown) (unknown) (no (unknown) (unknown) Creatinine (units (unk nown) date) unknown) (unknown) (no (unknown) (unknown) Creatinine 1.72 H (units (unknown) date) unknown) (unknown) (no (unknown) (unknown) Critical Care (units ( unknown) date) time: unknown) (unknown) (no (unknown) (unknown) Cyclic vomiting (units (unknown) date) syndrome unknown) (unknown) (no (unknown) (unknown) : 1975 (units (unknown) date) Acct:[id number] unknown) (unknown) (no (unknown) (unknown) Daughter (units (unkno wn) date) Angio-edema unknown) (unknown) (no (unknown) (unknown) Environment (units (un known) date) unknown) (unknown) (no (unknown) (unknown) Eos # (Auto) (units (u nknown) date) unknown) (unknown) (no (unknown) (unknown) Eos # (Auto) (units (u nknown) date) unknown) (unknown) (no (unknown) (unknown) Eos # (Auto) 0 (units (unknown) date) unknown) (unknown) (no (unknown) (unknown) Eos % (Auto) (units (u nknown) date) unknown) (unknown) (no (unknown) (unknown) Eos % (Auto) (units (u nknown) date) unknown) (unknown) (no (unknown) (unknown) Eos % (Auto) 0.1 (units (unknown) date) L unknown) (unknown) (no (unknown) (unknown) Estimated GFR (units ( unknown) date) unknown) (unknown) (no (unknown) (unknown) Estimated GFR (units ( unknown) date) unknown) (unknown) (no (unknown) (unknown) Estimated GFR 36 (units (unknown) date) L unknown) (unknown) (no (unknown) (unknown) Ethyl Alcohol (units ( unknown) date) unknown) (unknown) (no (unknown) (unknown) Ethyl Alcohol (units ( unknown) date) unknown) (unknown) (no (unknown) (unknown) Ethyl Alcohol < (units (unknown) date) 10 unknown) (unknown) (no (unknown) (unknown) Exam (units (unkno wn) date) unknown) (unknown) (no (unknown) (unknown) Exam Narrative: (units (unknown) date) unknown) (unknown) (no (unknown) (unknown) Extremities: (units (u nknown) date) moves all 4 unknown) extremities, is ambulatory, negative Eun?s sign (unknown) (no (unknown) (unknown) Family + Social (units (unknown) date) History unknown) (unknown) (no (unknown) (unknown) Family History (units (unknown) date) (Reviewed 04/13/22 unknown) @ 09:52 by Mine Harrington DO) (unknown) (no (unknown) (unknown) Family history of (units (unknown) date) angioedema unknown) (unknown) (no (unknown) (unknown) Father (units (unkno wn) date) Hypertension unknown) (unknown) (no (unknown) (unknown) Feels Safe in (units ( unknown) date) Current Yes unknown) (unknown) (no (unknown) (unknown) [employer] system (units (unknown) date) review completed unknown) completed and pertinent findings are in the (unknown) (no (unknown) (unknown) Gen: Alert, (units (un known) date) oriented, thin 46 unknown) y.o. , very lethargic (unknown) (no (unknown) (unknown) Globulin (units (unkno wn) date) unknown) (unknown) (no (unknown) (unknown) Globulin (units (unkno wn) date) unknown) (unknown) (no (unknown) (unknown) Globulin 4.9 H (units (unknown) date) unknown) (unknown) (no (unknown) (unknown) Glucose (units (unkno wn) date) unknown) (unknown) (no (unknown) (unknown) Glucose (units (unkno wn) date) unknown) (unknown) (no (unknown) (unknown) Glucose 134 H (units ( unknown) date) unknown) (unknown) (no (unknown) (unknown) HEENT: (units (unkno wn) date) normocephalic, unknown) atraumatic, conjunctiva clear, sclera non-icteric, oral (unknown) (no (unknown) (unknown) Hct (units (unkno wn) date) unknown) (unknown) (no (unknown) (unknown) Hct (units (unkno wn) date) unknown) (unknown) (no (unknown) (unknown) Hct 44.2 (units (unkno wn) date) unknown) (unknown) (no (unknown) (unknown) Hgb (units (unkno wn) date) unknown) (unknown) (no (unknown) (unknown) Hgb (units (unkno wn) date) unknown) (unknown) (no (unknown) (unknown) Hgb 15.4 (units (unkno wn) date) unknown) (unknown) (no (unknown) (unknown) History of (units (unk nown) date) Present Illness unknown) (unknown) (no (unknown) (unknown) Home Medications (units (unknown) date) and Allergies unknown) (unknown) (no (unknown) (unknown) Hx of (units (unkno wn) date) appendectomy unknown) (unknown) (no (unknown) (unknown) Hx of (units (unkno wn) date) cholecystectomy unknown) (unknown) (no (unknown) (unknown) I spent a total (units (unknown) date) of [] minutes of unknown) critical care time on this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 nknown) date) angioedema on the unknown) last 2 visits of her tongue.? Patient states she (unknown) (no (unknown) (unknown) per rectum and (units (unknown) date) latex.? She does unknown) use tobacco, states she drinks 3-5 alcoholic (unknown) (no (unknown) (unknown) polysubstance (units ( unknown) date) abuse, alcohol use unknown) and angioedema.? Patient presents with (unknown) (no (unknown) (unknown) potassium (units (unkn own) date) chloride 20 mEq 20 unknown) meq PO DAILY #30 tabs 03/21/22 04/13/22 Rx (unknown) (no (unknown) (unknown) promethazine (units (u nknown) date) [PROMETHAZINE] unknown) Allergy Mild ERYTHEMA Verified 04/13/22 09:42 (unknown) (no (unknown) (unknown) recently.? She is (units (unknown) date) accompanied by her unknown) today.? We did discuss that she was (unknown) (no (unknown) (unknown) settled. (units (unkno wn) date) unknown) (unknown) (no (unknown) (unknown) she is been (units (un known) date) stooling regularly unknown) with no diarrhea or constipation and denies any (unknown) (no (unknown) (unknown) she is been (units (un known) date) vomiting up unknown) everything she tries to put in her stomach, denies any (unknown) (no (unknown) (unknown) states she is (units ( unknown) date) been vomiting up unknown) everything she tries to put in her stomach, (unknown) (no (unknown) (unknown) states she is (units ( unknown) date) unsure of her last unknown) cocaine use but does not think it was (unknown) (no (unknown) (unknown) stay and due (units (u nknown) date) script for the unknown) severity of the patient's illness (unknown) (no (unknown) (unknown) surgeries.? She (units (unknown) date) does have unknown) allergies to Reglan, promethazine IV but can tolerate (unknown) (no (unknown) (unknown) sustained-release (units (unknown) date) unknown) (unknown) (no (unknown) (unknown) tablet,extended (units (unknown) date) release unknown) (unknown) (no (unknown) (unknown) this morning which (units (unknown) date) was not helpful.? unknown) Patient states no surgeries.? She does have (unknown) (no (unknown) (unknown) to her prior (units (u nknown) date) cyclic vomiting unknown) episodes in the past.? She denies fevers.? She (unknown) (no (unknown) (unknown) today; this time (units (unknown) date) is exclusive of unknown) procedural time. (unknown) (no (unknown) (unknown) uses THC (units (unkno wn) date) intermittently as unknown) well as cocaine.? Patient states she is unsure of her (unknown) (no (unknown) (unknown) vaccination.? She (units (unknown) date) had testing sent unknown) for hereditary angioedema but does not know (unknown) (no (unknown) (unknown) vaginal bleeding (units (unknown) date) or discharge.? unknown) Patient states she has not been able to keep (unknown) (no (unknown) (unknown) vomiting, (units (unkn own) date) polysubstance unknown) abuse, alcohol use and angioedema.? Patient presents (unknown) (no (unknown) (unknown) was told that (units ( unknown) date) this is from her unknown) COVID vaccination.? She had testing sent for (unknown) (no (unknown) (unknown) what the results (units (unknown) date) of those unknown) were.?46-year-old female with history of cyclic (unknown) (no (unknown) (unknown) with Haldol IV (units (unknown) date) and unknown) diphenhydramine IV as well as scopolamine patch (unknown) (no (unknown) (unknown) with complaint of (units (unknown) date) vomiting for the unknown) past 3 days.? Patient states this is similar Result panel 73 (unknown) (no (unknown) (unknown) (no value) (units (unk nown) date) unknown) (unknown) (no (unknown) (unknown) (no value) (units (unk nown) date) unknown) (unknown) (no (unknown) (unknown) Date of Service: (units (unknown) date) 04/13/22 unknown) (unknown) (no (unknown) (unknown) (no value) (units (unk nown) date) unknown) (unknown) (no (unknown) (unknown) - (units (unkno wn) date) unknown) (unknown) (no (unknown) (unknown) 04/13/22 09:20 (units (unknown) date) unknown) (unknown) (no (unknown) (unknown) 04/13/22 1737 (units ( unknown) date) unknown) (unknown) (no (unknown) (unknown) ABLE TO (units (unkno wn) date) unknown) (unknown) (no (unknown) (unknown) Allergies (units (unkn own) date) unknown) (unknown) (no (unknown) (unknown) History + (units (unkn own) date) Physical Report unknown) (unknown) (no (unknown) (unknown) Home Medications (units (unknown) date) unknown) (unknown) (no (unknown) (unknown) [facility] (units (unknown) date) [address] unknown) [place] [address] (unknown) (no (unknown) (unknown) Laboratory (units (unk nown) date) Results - last 24 unknown) hr (unknown) (no (unknown) (unknown) PT STATES (units (unkn own) date) unknown) (unknown) (no (unknown) (unknown) [facility] (units (unkno wn) date) unknown) (unknown) (no (unknown) (unknown) TO IV SITE (units (unk nown) date) unknown) (unknown) (no (unknown) (unknown) methamphetamine (units (unknown) date) unknown) (unknown) (no (unknown) (unknown) (no value) (units (unk nown) date) unknown) (unknown) (no (unknown) (unknown) 04/13/22 04/13/22 (units (unknown) date) unknown) (unknown) (no (unknown) (unknown) 04/13/22 04/13/22 (units (unknown) date) 04/13/22 unknown) (unknown) (no (unknown) (unknown) 09:20 09:20 09:40 (units (unknown) date) unknown) (unknown) (no (unknown) (unknown) 09:40 09:55 11:01 (units (unknown) date) unknown) (unknown) (no (unknown) (unknown) 11:20 14:35 (units (un known) date) unknown) (unknown) (no (unknown) (unknown) 04/13/22 (units (unkno wn) date) unknown) (unknown) (no (unknown) (unknown) Medication (units (unk nown) date) Instructions unknown) Recorded Confirmed Type (unknown) (no (unknown) (unknown) labs this evening (units (unknown) date) and determine unknown) further placement is necessary. (unknown) (no (unknown) (unknown) mg daily. (units (unkn own) date) unknown) (unknown) (no (unknown) (unknown) (past 8 hours): (units (unknown) date) unknown) (unknown) (no (unknown) (unknown) 09:33 04/13/22 (units (unknown) date) unknown) (unknown) (no (unknown) (unknown) 09:36 04/13/22 (units (unknown) date) unknown) (unknown) (no (unknown) (unknown) 1. Epigastric (units ( unknown) date) pain. Provide unknown) intravenous pantoprazole. Initial dose of 80 mg (unknown) (no (unknown) (unknown) 10:18 (units (unkno wn) date) unknown) (unknown) (no (unknown) (unknown) 10:30 04/13/22 (units (unknown) date) unknown) (unknown) (no (unknown) (unknown) 11:00 (units (unkno wn) date) unknown) (unknown) (no (unknown) (unknown) 11:00 04/13/22 (units (unknown) date) unknown) (unknown) (no (unknown) (unknown) 14:30 (units (unkno wn) date) unknown) (unknown) (no (unknown) (unknown) 2 visits of her (units (unknown) date) tongue.? Patient unknown) states she was told that this is from her COVID (unknown) (no (unknown) (unknown) 2. Persistent (units ( unknown) date) vomiting likely unknown) secondary to THC as has been in the past. Treat (unknown) (no (unknown) (unknown) 00197 (units (unkno wn) date) unknown) (unknown) (no (unknown) (unknown) 3. Hypokalemia. (units (unknown) date) Replacement unknown) initiated in the emergency room. Continue. Follow (unknown) (no (unknown) (unknown) 4. Anxiety, (units (un known) date) chronic and acute unknown) on chronic. Treat as needed. Will provide (unknown) (no (unknown) (unknown) 5. DVT (units (unkno wn) date) prophylaxis. unknown) Enoxaparin 40 mg subcu every 24 hours. (unknown) (no (unknown) (unknown) 6. Hypertension, (units (unknown) date) chronic. Continue unknown) patient's regular medication of amlodipine 5 (unknown) (no (unknown) (unknown) 7. Clear fluid (units (unknown) date) diet and IV fluids unknown) for now until nausea vomiting is consistently (unknown) (no (unknown) (unknown) 8. Code status: (units (unknown) date) Presumed to be unknown) full code until told otherwise by the patient. (unknown) (no (unknown) (unknown) ALT (units (unkno wn) date) unknown) (unknown) (no (unknown) (unknown) ALT (units (unkno wn) date) unknown) (unknown) (no (unknown) (unknown) ALT 35 H (units (unkno wn) date) unknown) (unknown) (no (unknown) (unknown) AST (units (unkno wn) date) unknown) (unknown) (no (unknown) (unknown) AST (units (unkno wn) date) unknown) (unknown) (no (unknown) (unknown) AST 36 (units (unkno wn) date) unknown) (unknown) (no (unknown) (unknown) Abd: soft, (units (unk nown) date) epigastric unknown) tenderness, normal bowel sounds (unknown) (no (unknown) (unknown) Abscess (units (unkno wn) date) unknown) (unknown) (no (unknown) (unknown) Admit to (units (o wn) date) inpatient since unknown) greater than 2 in night is expected with the patient's (unknown) (no (unknown) (unknown) Age/Sex: 46 / F (units (unknown) date) unknown) (unknown) (no (unknown) (unknown) Albumin (units (o wn) date) unknown) (unknown) (no (unknown) (unknown) Albumin (units (unkno wn) date) unknown) (unknown) (no (unknown) (unknown) Albumin 5.6 H (units ( unknown) date) unknown) (unknown) (no (unknown) (unknown) Albumin/Globulin (units (unknown) date) Ratio unknown) (unknown) (no (unknown) (unknown) Albumin/Globulin (units (unknown) date) Ratio unknown) (unknown) (no (unknown) (unknown) Albumin/Globulin (units (unknown) date) Ratio 1.1 unknown) (unknown) (no (unknown) (unknown) Alkaline (units (unkno wn) date) Phosphatase unknown) (unknown) (no (unknown) (unknown) Alkaline (units (unkno wn) date) Phosphatase unknown) (unknown) (no (unknown) (unknown) Alkaline (units (o wn) date) Phosphatase 96 unknown) (unknown) (no (unknown) (unknown) Allergy/AdvReac (units (unknown) date) Type Severity unknown) Reaction Status Date / Time (unknown) (no (unknown) (unknown) Assessment + Plan (units (unknown) date) unknown) (unknown) (no (unknown) (unknown) Assessment + Plan (units (unknown) date) narrative: unknown) (unknown) (no (unknown) (unknown) BUN (units (unkno wn) date) unknown) (unknown) (no (unknown) (unknown) BUN (units (unkno wn) date) unknown) (unknown) (no (unknown) (unknown) BUN 31 H (units (unkno wn) date) unknown) (unknown) (no (unknown) (unknown) BUN/Creatinine (units (unknown) date) Ratio unknown) (unknown) (no (unknown) (unknown) BUN/Creatinine (units (unknown) date) Ratio unknown) (unknown) (no (unknown) (unknown) BUN/Creatinine (units (unknown) date) Ratio 18.0 unknown) (unknown) (no (unknown) (unknown) Baso # (Auto) (units ( unknown) date) unknown) (unknown) (no (unknown) (unknown) Baso # (Auto) (units ( unknown) date) unknown) (unknown) (no (unknown) (unknown) Baso # (Auto) 0 (units (unknown) date) unknown) (unknown) (no (unknown) (unknown) Baso % (Auto) (units ( unknown) date) unknown) (unknown) (no (unknown) (unknown) Baso % (Auto) (units ( unknown) date) unknown) (unknown) (no (unknown) (unknown) Baso % (Auto) 0.5 (units (unknown) date) unknown) (unknown) (no (unknown) (unknown) Been Physically (units (unknown) date) Hurt or No unknown) (unknown) (no (unknown) (unknown) Blood Pressure (units (unknown) date) 125/75 unknown) (unknown) (no (unknown) (unknown) Blood Pressure (units (unknown) date) 116/82 126/80 unknown) (unknown) (no (unknown) (unknown) Blood Pressure (units (unknown) date) 151/93 H 151/93 H unknown) (unknown) (no (unknown) (unknown) CV: RRR, no (units (un known) date) murmur or rubs unknown) (unknown) (no (unknown) (unknown) Calcium (units (unkno wn) date) unknown) (unknown) (no (unknown) (unknown) Calcium (units (unkno wn) date) unknown) (unknown) (no (unknown) (unknown) Calcium 10.4 H (units (unknown) date) unknown) (unknown) (no (unknown) (unknown) Carbon Dioxide (units (unknown) date) unknown) (unknown) (no (unknown) (unknown) Carbon Dioxide (units (unknown) date) unknown) (unknown) (no (unknown) (unknown) Carbon Dioxide 32 (units (unknown) date) unknown) (unknown) (no (unknown) (unknown) Chief complaint: (units (unknown) date) cyclical vomiting unknown) (unknown) (no (unknown) (unknown) Chloride (units (unkno wn) date) unknown) (unknown) (no (unknown) (unknown) Chloride (units (unkno wn) date) unknown) (unknown) (no (unknown) (unknown) Chloride 82 L (units ( unknown) date) unknown) (unknown) (no (unknown) (unknown) Chronic abdominal (units (unknown) date) pain unknown) (unknown) (no (unknown) (unknown) Creatinine (units (unk nown) date) unknown) (unknown) (no (unknown) (unknown) Creatinine (units (unk nown) date) unknown) (unknown) (no (unknown) (unknown) Creatinine 1.72 H (units (unknown) date) unknown) (unknown) (no (unknown) (unknown) Critical Care (units ( unknown) date) time: unknown) (unknown) (no (unknown) (unknown) Cyclic vomiting (units (unknown) date) syndrome unknown) (unknown) (no (unknown) (unknown) : 1975 (units (unknown) date) Acct:[id number] unknown) (unknown) (no (unknown) (unknown) Daughter (units (unkno wn) date) Angio-edema unknown) (unknown) (no (unknown) (unknown) Environment (units (un known) date) unknown) (unknown) (no (unknown) (unknown) Eos # (Auto) (units (u nknown) date) unknown) (unknown) (no (unknown) (unknown) Eos # (Auto) (units (u nknown) date) unknown) (unknown) (no (unknown) (unknown) Eos # (Auto) 0 (units (unknown) date) unknown) (unknown) (no (unknown) (unknown) Eos % (Auto) (units (u nknown) date) unknown) (unknown) (no (unknown) (unknown) Eos % (Auto) (units (u nknown) date) unknown) (unknown) (no (unknown) (unknown) Eos % (Auto) 0.1 (units (unknown) date) L unknown) (unknown) (no (unknown) (unknown) Estimated GFR (units ( unknown) date) unknown) (unknown) (no (unknown) (unknown) Estimated GFR (units ( unknown) date) unknown) (unknown) (no (unknown) (unknown) Estimated GFR 36 (units (unknown) date) L unknown) (unknown) (no (unknown) (unknown) Ethyl Alcohol (units ( unknown) date) unknown) (unknown) (no (unknown) (unknown) Ethyl Alcohol (units ( unknown) date) unknown) (unknown) (no (unknown) (unknown) Ethyl Alcohol < (units (unknown) date) 10 unknown) (unknown) (no (unknown) (unknown) Exam (units (unkno wn) date) unknown) (unknown) (no (unknown) (unknown) Exam Narrative: (units (unknown) date) unknown) (unknown) (no (unknown) (unknown) Extremities: (units (u nknown) date) moves all 4 unknown) extremities, is ambulatory, negative Eun?s sign (unknown) (no (unknown) (unknown) Family + Social (units (unknown) date) History unknown) (unknown) (no (unknown) (unknown) Family History (units (unknown) date) (Reviewed 04/13/22 unknown) @ 09:52 by Mine Harrington DO) (unknown) (no (unknown) (unknown) Family history of (units (unknown) date) angioedema unknown) (unknown) (no (unknown) (unknown) Father (units (unkno wn) date) Hypertension unknown) (unknown) (no (unknown) (unknown) Feels Safe in (units ( unknown) date) Current Yes unknown) (unknown) (no (unknown) (unknown) [employer]teen system (units (unknown) date) review completed unknown) completed and pertinent findings are in the (unknown) (no (unknown) (unknown) Gen: Alert, (units (un known) date) oriented, thin 46 unknown) y.o. , very lethargic (unknown) (no (unknown) (unknown) Globulin (units (unkno wn) date) unknown) (unknown) (no (unknown) (unknown) Globulin (units (unkno wn) date) unknown) (unknown) (no (unknown) (unknown) Globulin 4.9 H (units (unknown) date) unknown) (unknown) (no (unknown) (unknown) Glucose (units (unkno wn) date) unknown) (unknown) (no (unknown) (unknown) Glucose (units (unkno wn) date) unknown) (unknown) (no (unknown) (unknown) Glucose 134 H (units ( unknown) date) unknown) (unknown) (no (unknown) (unknown) HEENT: (units (unkno wn) date) normocephalic, unknown) atraumatic, conjunctiva clear, sclera non-icteric, oral (unknown) (no (unknown) (unknown) Hct (units (unkno wn) date) unknown) (unknown) (no (unknown) (unknown) Hct (units (unkno wn) date) unknown) (unknown) (no (unknown) (unknown) Hct 44.2 (units (unkno wn) date) unknown) (unknown) (no (unknown) (unknown) Hgb (units (unkno wn) date) unknown) (unknown) (no (unknown) (unknown) Hgb (units (unkno wn) date) unknown) (unknown) (no (unknown) (unknown) Hgb 15.4 (units (unkno wn) date) unknown) (unknown) (no (unknown) (unknown) History of (units (unk nown) date) Present Illness unknown) (unknown) (no (unknown) (unknown) Home Medications (units (unknown) date) and Allergies unknown) (unknown) (no (unknown) (unknown) Hx of (units (unkno wn) date) appendectomy unknown) (unknown) (no (unknown) (unknown) Hx of (units (unkno wn) date) cholecystectomy unknown) (unknown) (no (unknown) (unknown) I spent a total (units (unknown) date) of [] minutes of unknown) critical care time on this patient's care (unknown) (no (unknown) (unknown) Ketones (units (unkno wn) date) unknown) (unknown) (no (unknown) (unknown) Ketones (units (unkno wn) date) unknown) (unknown) (no (unknown) (unknown) Ketones 0.20 (units (u nknown) date) unknown) (unknown) (no (unknown) (unknown) Labs (units (unkno wn) date) unknown) (unknown) (no (unknown) (unknown) Labs: (units (unkno wn) date) unknown) (unknown) (no (unknown) (unknown) Lactate (units (unkno wn) date) unknown) (unknown) (no (unknown) (unknown) Lactate 9.7 H* (units (unknown) date) unknown) (unknown) (no (unknown) (unknown) Lactate 3.0 H 1.3 (units (unknown) date) unknown) (unknown) (no (unknown) (unknown) Lipase (units (unkno wn) date) unknown) (unknown) (no (unknown) (unknown) Lipase (units (unkno wn) date) unknown) (unknown) (no (unknown) (unknown) Lipase 96 (units (unkn own) date) unknown) (unknown) (no (unknown) (unknown) Lymph # (Auto) (units (unknown) date) unknown) (unknown) (no (unknown) (unknown) Lymph # (Auto) (units (unknown) date) unknown) (unknown) (no (unknown) (unknown) Lymph # (Auto) (units (unknown) date) 1300 unknown) (unknown) (no (unknown) (unknown) Lymph % (Auto) (units (unknown) date) unknown) (unknown) (no (unknown) (unknown) Lymph % (Auto) (units (unknown) date) unknown) (unknown) (no (unknown) (unknown) Lymph % (Auto) (units (unknown) date) 20.9 L unknown) (unknown) (no (unknown) (unknown) MCH (units (unkno wn) date) unknown) (unknown) (no (unknown) (unknown) MCH (units (unkno wn) date) unknown) (unknown) (no (unknown) (unknown) MCH 32.4 (units (unkno wn) date) unknown) (unknown) (no (unknown) (unknown) MCHC (units (unkno wn) date) unknown) (unknown) (no (unknown) (unknown) MCHC (units (unkno wn) date) unknown) (unknown) (no (unknown) (unknown) MCHC 35.0 (units (unkn own) date) unknown) (unknown) (no (unknown) (unknown) MCV (units (unkno wn) date) unknown) (unknown) (no (unknown) (unknown) MCV (units (unkno wn) date) unknown) (unknown) (no (unknown) (unknown) MCV 92.6 (units (unkno wn) date) unknown) (unknown) (no (unknown) (unknown) 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 (unknown) (no (unknown) (unknown) Marijuana use, (units (unknown) date) continuous unknown) (unknown) (no (unknown) (unknown) Medical History (units (unknown) date) (Reviewed 04/13/22 unknown) @ 09:52 by Mine Harrington DO) (unknown) (no (unknown) (unknown) Meds (units (unkno wn) date) unknown) (unknown) (no (unknown) (unknown) Centre # (Auto) (units ( unknown) date) unknown) (unknown) (no (unknown) (unknown) Centre # (Auto) (units ( unknown) date) unknown) (unknown) (no (unknown) (unknown) Centre # (Auto) 500 (units (unknown) date) unknown) (unknown) (no (unknown) (unknown) Centre % (Auto) (units ( unknown) date) unknown) (unknown) (no (unknown) (unknown) Centre % (Auto) (units ( unknown) date) unknown) (unknown) (no (unknown) (unknown) Centre % (Auto) 8.7 (units (unknown) date) unknown) (unknown) (no (unknown) (unknown) Mother Diabetes (units (unknown) date) mellitus unknown) (unknown) (no (unknown) (unknown) Narrative (units (unkn own) date) unknown) (unknown) (no (unknown) (unknown) Narrative: (units (unk nown) date) unknown) (unknown) (no (unknown) (unknown) Neck: supple, (units ( unknown) date) full ROM, no JVD, unknown) trachea is midline (unknown) (no (unknown) (unknown) Neuro: Unable to (units (unknown) date) stay awake while unknown) speaking (unknown) (no (unknown) (unknown) Neut # (Auto) (units ( unknown) date) unknown) (unknown) (no (unknown) (unknown) Neut # (Auto) (units ( unknown) date) unknown) (unknown) (no (unknown) (unknown) Neut # (Auto) (units ( unknown) date) 4300 unknown) (unknown) (no (unknown) (unknown) Neut % (Auto) (units ( unknown) date) unknown) (unknown) (no (unknown) (unknown) Neut % (Auto) (units ( unknown) date) unknown) (unknown) (no (unknown) (unknown) Neut % (Auto) (units ( unknown) date) 69.8 unknown) (unknown) (no (unknown) (unknown) Not in the mood (units (unknown) date) to discuss at this unknown) time. (unknown) (no (unknown) (unknown) Objective (units (unkn own) date) unknown) (unknown) (no (unknown) (unknown) Other Colon (units (un known) date) cancer unknown) (unknown) (no (unknown) (unknown) Oxygen Delivery (units (unknown) date) Method unknown) (unknown) (no (unknown) (unknown) Oxygen Delivery (units (unknown) date) Method unknown) (unknown) (no (unknown) (unknown) Oxygen Delivery (units (unknown) date) Method Room Air unknown) (unknown) (no (unknown) (unknown) Oxygen Delivery (units (unknown) date) Method Room Air unknown) Room Air (unknown) (no (unknown) (unknown) Oxygen Flow Rate (units (unknown) date) unknown) (unknown) (no (unknown) (unknown) Oxygen Flow Rate (units (unknown) date) 0 unknown) (unknown) (no (unknown) (unknown) Oxygen Flow Rate (units (unknown) date) 0 unknown) (unknown) (no (unknown) (unknown) Pancreatitis (units (u nknown) date) unknown) (unknown) (no (unknown) (unknown) Patient History (units (unknown) date) unknown) (unknown) (no (unknown) (unknown) Patient states (units (unknown) date) she is been unknown) stooling regularly with no diarrhea or constipation (unknown) (no (unknown) (unknown) Patient: (units (unkno wn) date) Dameon Castro MR#: unknown) [id number] (unknown) (no (unknown) (unknown) Phenergan (units (unkn own) date) suppository this unknown) morning which was not helpful.? Patient states no (unknown) (no (unknown) (unknown) Plt Count (units (unkn own) date) unknown) (unknown) (no (unknown) (unknown) Plt Count (units (unkn own) date) unknown) (unknown) (no (unknown) (unknown) Plt Count 284 (units ( unknown) date) unknown) (unknown) (no (unknown) (unknown) Potassium (units (unkn own) date) unknown) (unknown) (no (unknown) (unknown) Potassium (units (unkn own) date) unknown) (unknown) (no (unknown) (unknown) Potassium 2.7 L* (units (unknown) date) unknown) (unknown) (no (unknown) (unknown) Provider: (units (unkn own) date) Ernestina Jara unknown) (unknown) (no (unknown) (unknown) Psyche: mildly (units (unknown) date) agitated when unknown) awakened. Patient's main focus is complaining (unknown) (no (unknown) (unknown) Pulse Oximetry 96 (units (unknown) date) unknown) (unknown) (no (unknown) (unknown) Pulse Oximetry 95 (units (unknown) date) 96 unknown) (unknown) (no (unknown) (unknown) Pulse Oximetry 98 (units (unknown) date) 100 96 unknown) (unknown) (no (unknown) (unknown) Pulse Rate 91 H (units (unknown) date) unknown) (unknown) (no (unknown) (unknown) Pulse Rate 79 74 (units (unknown) date) unknown) (unknown) (no (unknown) (unknown) Pulse Rate 90 98 (units (unknown) date) H 89 unknown) (unknown) (no (unknown) (unknown) RBC (units (unkno wn) date) unknown) (unknown) (no (unknown) (unknown) RBC (units (unkno wn) date) unknown) (unknown) (no (unknown) (unknown) RBC 4.77 (units (unkno wn) date) unknown) (unknown) (no (unknown) (unknown) RDW (units (unkno wn) date) unknown) (unknown) (no (unknown) (unknown) RDW (units (unkno wn) date) unknown) (unknown) (no (unknown) (unknown) RDW 13.8 (units (unkno wn) date) unknown) (unknown) (no (unknown) (unknown) Resp: Lungs CTA, (units (unknown) date) non-labored unknown) breathing (unknown) (no (unknown) (unknown) Respiratory Rate (units (unknown) date) unknown) (unknown) (no (unknown) (unknown) Respiratory Rate (units (unknown) date) 16 unknown) (unknown) (no (unknown) (unknown) Respiratory Rate (units (unknown) date) 24 22 unknown) (unknown) (no (unknown) (unknown) Result Diagrams: (units (unknown) date) unknown) (unknown) (no (unknown) (unknown) Review of Systems (units (unknown) date) unknown) (unknown) (no (unknown) (unknown) SARS-CoV-2 (PCR) (units (unknown) date) unknown) (unknown) (no (unknown) (unknown) SARS-CoV-2 (PCR) (units (unknown) date) unknown) (unknown) (no (unknown) (unknown)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 /uL unknown) (unknown) (no (unknown) (unknown) Baso # (Auto) 0 (units (unknown) date) (0-100) /uL unknown) (unknown) (no (unknown) (unknown) Baso % (Auto) (units ( unknown) date) (0-2) % unknown) (unknown) (no (unknown) (unknown) Baso % (Auto) (units ( unknown) date) (0-2) % unknown) (unknown) (no (unknown) (unknown) Baso % (Auto) 0.5 (units (unknown) date) (0-2) % unknown) (unknown) (no (unknown) (unknown) Biliary ducts:? (units (unknown) date) Mild dilatation of unknown) the intrahepatic and extrahepatic biliary (unknown) (no (unknown) (unknown) Blood Culture Stat (units (unknown) date) unknown) (unknown) (no (unknown) (unknown) Blood Pressure (units (unknown) date) 151/93 H 04/13/22 unknown) 09:33 (unknown) (no (unknown) (unknown) Blood Pressure (units (unknown) date) 126/80 unknown) (unknown) (no (unknown) (unknown) Bones:? (units (unkno wn) date) Unremarkable.? ? unknown) (unknown) (no (unknown) (unknown) Bupropion HCl (units ( unknown) date) (Bupropion Sr 100 unknown) Mg Tab) 100 mg PO DAILY KIRIT (unknown) (no (unknown) (unknown) CONTRAST, (units (unkn own) date) 08/16/2014, 1:04. unknown) (unknown) (no (unknown) (unknown) COVID19 -Nasal (units (unknown) date) RAPID/Pre-Proc Stat unknown) (unknown) (no (unknown) (unknown) CT abdomen pelvis (units (unknown) date) w con Stat unknown) (unknown) (no (unknown) (unknown) CT scan - (units (unkn own) date) abdomen/pelvis: unknown) (unknown) (no (unknown) (unknown) Calcium (8.4-10.2) (units (unknown) date) mg/dL unknown) (unknown) (no (unknown) (unknown) Calcium (8.4-10.2) (units (unknown) date) mg/dL unknown) (unknown) (no (unknown) (unknown) Calcium 10.4 H (units (unknown) date) (8.4-10.2) mg/dL unknown) (unknown) (no (unknown) (unknown) Carbon Dioxide (units (unknown) date) (22-32) mmol/L unknown) (unknown) (no (unknown) (unknown) Carbon Dioxide (units (unknown) date) (22-32) mmol/L unknown) (unknown) (no (unknown) (unknown) Carbon Dioxide 32 (units (unknown) date) (22-32) mmol/L unknown) (unknown) (no (unknown) (unknown) Chief complaint: (units (unknown) date) Abdominal Pain unknown) (unknown) (no (unknown) (unknown) Chloride (98-107) (units (unknown) date) mmol/L unknown) (unknown) (no (unknown) (unknown) Chloride (98-107) (units (unknown) date) mmol/L unknown) (unknown) (no (unknown) (unknown) Chloride 82 L (units ( unknown) date) (98-107) mmol/L unknown) (unknown) (no (unknown) (unknown) Cholecystectomy.? (units (unknown) date) unknown) (unknown) (no (unknown) (unknown) Chronic abdominal (units (unknown) date) pain unknown) (unknown) (no (unknown) (unknown) Clinical (units (unkno wn) date) Impression: unknown) (unknown) (no (unknown) (unknown) Course (units (unkno wn) date) unknown) (unknown) (no (unknown) (unknown) Creatinine (units (unk nown) date) (0.52-1.04) mg/dL unknown) (unknown) (no (unknown) (unknown) Creatinine (units (unk nown) date) (0.52-1.04) mg/dL unknown) (unknown) (no (unknown) (unknown) Creatinine 1.72 H (units (unknown) date) (0.52-1.04) mg/dL unknown) (unknown) (no (unknown) (unknown) Critical Care Time (units (unknown) date) unknown) (unknown) (no (unknown) (unknown) Critical Care (units ( unknown) date) Time: Yes unknown) (unknown) (no (unknown) (unknown) Cyclic vomiting (units (unknown) date) syndrome unknown) (unknown) (no (unknown) (unknown) : 1975 (units (unknown) date) Acct:[id number] unknown) (unknown) (no (unknown) (unknown) : 1975 (units (unknown) date) unknown) (unknown) (no (unknown) (unknown) Date of Service: (units (unknown) date) 04/13/22 unknown) (unknown) (no (unknown) (unknown) Daughter (units (unkno wn) date) Angio-edema unknown) (unknown) (no (unknown) (unknown) July 2014 (units ( unknown) date) study. unknown) (unknown) (no (unknown) (unknown) Departure (units (unkn own) date) unknown) (unknown) (no (unknown) (unknown) Dictated by: Bobby (units (unknown) date) Cathy Oropeza on unknown) 04/13/2022 at 11:19 ? ? (unknown) (no (unknown) (unknown) Diphenhydramine (units (unknown) date) HCl unknown) (Diphenhydramine 50 Mg/Ml Vial) 25 mg IV NOW ONE (unknown) (no (unknown) (unknown) Diphenhydramine (units (unknown) date) HCl unknown) (Diphenhydramine 50 Mg/Ml Vial) 50 mg IV Q6HR PRN (unknown) (no (unknown) (unknown) Discharge Plan (units (unknown) date) unknown) (unknown) (no (unknown) (unknown) Discontinued (units (u nknown) date) Medications unknown) (unknown) (no (unknown) (unknown) ECG Data (units (unkno wn) date) unknown) (unknown) (no (unknown) (unknown) ER Physician: (units ( unknown) date) Mine HarringtonOMary Kay unknown) (unknown) (no (unknown) (unknown) Enoxaparin Sodium (units (unknown) date) (Enoxaparin 40 unknown) Mg/0.4 Ml Syringe) 40 mg SUBCUT DAILY KIRIT (unknown) (no (unknown) (unknown) Eos # (Auto) (units (u nknown) date) (0-450) /uL unknown) (unknown) (no (unknown) (unknown) Eos # (Auto) (units (u nknown) date) (0-450) /uL unknown) (unknown) (no (unknown) (unknown) Eos # (Auto) 0 (units (unknown) date) (0-450) /uL unknown) (unknown) (no (unknown) (unknown) Eos % (Auto) (2-4) (units (unknown) date) % unknown) (unknown) (no (unknown) (unknown) Eos % (Auto) (2-4) (units (unknown) date) % unknown) (unknown) (no (unknown) (unknown) Eos % (Auto) 0.1 L (units (unknown) date) (2-4) % unknown) (unknown) (no (unknown) (unknown) Estimated GFR (units ( unknown) date) (>60) mL/min unknown) (unknown) (no (unknown) (unknown) Estimated GFR (units ( unknown) date) (>60) mL/min unknown) (unknown) (no (unknown) (unknown) Estimated GFR 36 L (units (unknown) date) (>60) mL/min unknown) (unknown) (no (unknown) (unknown) Ethyl Alcohol ( - (units (unknown) date) 10) mg/dL unknown) (unknown) (no (unknown) (unknown) Ethyl Alcohol < 10 (units (unknown) date) ( - 10) mg/dL unknown) (unknown) (no (unknown) (unknown) Ethyl Alcohol ( - (units (unknown) date) 10) mg/dL unknown) (unknown) (no (unknown) (unknown) Exam (units (unkno wn) date) unknown) (unknown) (no (unknown) (unknown) Exam Narrative: (units (unknown) date) unknown) (unknown) (no (unknown) (unknown) FINDINGS:? (units (unk nown) date) unknown) (unknown) (no (unknown) (unknown) Family History (units (unknown) date) (Reviewed 04/13/22 unknown) @ 09:52 by Mine Harrington DO) (unknown) (no (unknown) (unknown) Family history of (units (unknown) date) angioedema unknown) (unknown) (no (unknown) (unknown) Father (units (unkno wn) date) Hypertension unknown) (unknown) (no (unknown) (unknown) For (units (unkno wn) date) unknown) (unknown) (no (unknown) (unknown) GEN: Female, alert (units (unknown) date) and oriented x 3, unknown) patient appears to be in moderate (unknown) (no (unknown) (unknown) :No CVA (units (unkn own) date) tenderness unknown) (unknown) (no (unknown) (unknown) Gallbladder:? (units ( unknown) date) Cholecystectomy.? ? unknown) (unknown) (no (unknown) (unknown) General (units (unkno wn) date) unknown) (unknown) (no (unknown) (unknown) GenericComposite[P (units (unknown) date) lt Count (150-400) unknown) X10^3/uL ] (unknown) (no (unknown) (unknown) GenericComposite[P (units (unknown) date) lt Count (150-400) unknown) X10^3/uL ] (unknown) (no (unknown) (unknown) GenericComposite[P (units (unknown) date) lt Count 284 unknown) (150-400) X10^3/uL ] (unknown) (no (unknown) (unknown) GenericComposite[R (units (unknown) date) BC (4.0-5.2) unknown) X10^6/uL ] (unknown) (no (unknown) (unknown) GenericComposite[R (units (unknown) date) BC (4.0-5.2) unknown) X10^6/uL ] (unknown) (no (unknown) (unknown) GenericComposite[R (units (unknown) date) BC 4.77 (4.0-5.2) unknown) X10^6/uL ] (unknown) (no (unknown) (unknown) GenericComposite[W (units (unknown) date) BC (4.5-11.0) unknown) X10^3/uL ] (unknown) (no (unknown) (unknown) GenericComposite[W (units (unknown) date) BC (4.5-11.0) unknown) X10^3/uL ] (unknown) (no (unknown) (unknown) GenericComposite[W (units (unknown) date) BC 6.2 (4.5-11.0) unknown) X10^3/uL ] (unknown) (no (unknown) (unknown) Globulin (1.7-4.1) (units (unknown) date) g/dL unknown) (unknown) (no (unknown) (unknown) Globulin (1.7-4.1) (units (unknown) date) g/dL unknown) (unknown) (no (unknown) (unknown) Globulin 4.9 H (units (unknown) date) (1.7-4.1) g/dL unknown) (unknown) (no (unknown) (unknown) Glucose (70-100) (units (unknown) date) mg/dL unknown) (unknown) (no (unknown) (unknown) Glucose (70-100) (units (unknown) date) mg/dL unknown) (unknown) (no (unknown) (unknown) Glucose 134 H (units ( unknown) date) (70-100) mg/dL unknown) (unknown) (no (unknown) (unknown) HEART: Regular (units (unknown) date) rate and rhythm unknown) without murmur, clicks, rubs. (unknown) (no (unknown) (unknown) HEENT: Atraumatic, (units (unknown) date) pupils are equal unknown) round reactive to light, extraocular (unknown) (no (unknown) (unknown) HPI - (units (unkno wn) date) Nausea/Vomiting/Trupti unknown) rrhea (unknown) (no (unknown) (unknown) HPI Narrative: (units (unknown) date) unknown) (unknown) (no (unknown) (unknown) Haloperidol (units (un known) date) (Haloperidol 5 unknown) Mg/Ml Vial) 2 mg IV Q1H PRN (unknown) (no (unknown) (unknown) Haloperidol (units (un known) date) (Haloperidol 5 unknown) Mg/Ml Vial) 5 mg IV NOW ONE (unknown) (no (unknown) (unknown) Hct (36-46) % (units ( unknown) date) unknown) (unknown) (no (unknown) (unknown) Hct (36-46) % (units ( unknown) date) unknown) (unknown) (no (unknown) (unknown) Hct 44.2 (36-46) % (units (unknown) date) unknown) (unknown) (no (unknown) (unknown) Heart:? No (units (unk nown) date) significant unknown) findings. (unknown) (no (unknown) (unknown) Hgb (12.0-16.0) (units (unknown) date) g/dL unknown) (unknown) (no (unknown) (unknown) Hgb (12.0-16.0) (units (unknown) date) g/dL unknown) (unknown) (no (unknown) (unknown) Hgb 15.4 (units (unkno wn) date) (12.0-16.0) g/dL unknown) (unknown) (no (unknown) (unknown) History of Present (units (unknown) date) Illness unknown) (unknown) (no (unknown) (unknown) Hx of appendectomy (units (unknown) date) unknown) (unknown) (no (unknown) (unknown) Hx of (units (unkno wn) date) cholecystectomy unknown) (unknown) (no (unknown) (unknown) IMPRESSION:? (units (u nknown) date) unknown) (unknown) (no (unknown) (unknown) INDICATIONS:? (units ( unknown) date) vomiting/hx cyclic, unknown) elevated lactate (unknown) (no (unknown) (unknown) Image quality:? (units (unknown) date) Excellent.? unknown) (unknown) (no (unknown) (unknown) Imaging Data (units (u nknown) date) unknown) (unknown) (no (unknown) (unknown) Initial Vital (units ( unknown) date) Signs unknown) (unknown) (no (unknown) (unknown) Initial Vital (units ( unknown) date) Signs: unknown) (unknown) (no (unknown) (unknown) Interpretation: (units (unknown) date) unknown) (unknown) (no (unknown) (unknown) Ketones (<0.27) (units (unknown) date) mmol/L unknown) (unknown) (no (unknown) (unknown) Ketones (<0.27) (units (unknown) date) mmol/L unknown) (unknown) (no (unknown) (unknown) Ketones 0.20 (units (u nknown) date) (<0.27) mmol/L unknown) (unknown) (no (unknown) (unknown) Kidneys and (units (un known) date) Ureters:? No unknown) urinary tract calculus or hydroureteronephros is. (unknown) (no (unknown) (unknown) LUNGS:Lungs clear (units (unknown) date) to auscultation, no unknown) wheezes, rales, crackles, chest moves (unknown) (no (unknown) (unknown) Lab Data (units (unkno wn) date) unknown) (unknown) (no (unknown) (unknown) Labs: (units (unkno wn) date) unknown) (unknown) (no (unknown) (unknown) Lactate (0.7-2.1) (units (unknown) date) mmol/L unknown) (unknown) (no (unknown) (unknown) Lactate 9.7 H* (units (unknown) date) (0.7-2.1) mmol/L unknown) (unknown) (no (unknown) (unknown) Lactate 3.0 H (units ( unknown) date) (0.7-2.1) mmol/L unknown) (unknown) (no (unknown) (unknown) Lactate (Lactic (units (unknown) date) Acid) Stat unknown) (unknown) (no (unknown) (unknown) Lactated Ringer's (units (unknown) date) (Lactated Ringers) unknown) 1,000 mls @ 1,000 mls/hr IV BOLUS ONE (unknown) (no (unknown) (unknown) Limitations: no (units (unknown) date) limitations unknown) (unknown) (no (unknown) (unknown) Lipase (23-300) (units (unknown) date) U/L unknown) (unknown) (no (unknown) (unknown) Lipase (23-300) (units (unknown) date) U/L unknown) (unknown) (no (unknown) (unknown) Lipase 96 (23-300) (units (unknown) date) U/L unknown) (unknown) (no (unknown) (unknown) Liver:? (units (unkno wn) date) Unremarkable.? ? unknown) (unknown) (no (unknown) (unknown) Loc: ED (units (unkno wn) date) unknown) (unknown) (no (unknown) (unknown) Lorazepam (units (unkn own) date) (Lorazepam 2 Mg/Ml unknown) Inj) 0.5 mg IV Q4HR PRN (unknown) (no (unknown) (unknown) Lung bases:? (units (u nknown) date) Unremarkable. unknown) (unknown) (no (unknown) (unknown) Lymph # (Auto) (units (unknown) date) (0097-7987) /uL unknown) (unknown) (no (unknown) (unknown) Lymph # (Auto) (units (unknown) date) (3506-3172) /uL unknown) (unknown) (no (unknown) (unknown) Lymph # (Auto) (units (unknown) date) 1300 (7986-5523) unknown) /uL (unknown) (no (unknown) (unknown) Lymph % (Auto) (units (unknown) date) (25-40) % unknown) (unknown) (no (unknown) (unknown) Lymph % (Auto) (units (unknown) date) (25-40) % unknown) (unknown) (no (unknown) (unknown) Lymph % (Auto) (units (unknown) date) 20.9 L (25-40) % unknown) (unknown) (no (unknown) (unknown) MCH (26-34) PG (units (unknown) date) unknown) (unknown) (no (unknown) (unknown) MCH (26-34) PG (units (unknown) date) unknown) (unknown) (no (unknown) (unknown) MCH 32.4 (26-34) (units (unknown) date) PG unknown) (unknown) (no (unknown) (unknown) MCHC (30-36) % (units (unknown) date) unknown) (unknown) (no (unknown) (unknown) MCHC (30-36) % (units (unknown) date) unknown) (unknown) (no (unknown) (unknown) MCHC 35.0 (30-36) (units (unknown) date) % unknown) (unknown) (no (unknown) (unknown) MCV (80-100) fL (units (unknown) date) unknown) (unknown) (no (unknown) (unknown) MCV (80-100) fL (units (unknown) date) unknown) (unknown) (no (unknown) (unknown) MCV 92.6 (80-100) (units (unknown) date) fL unknown) (unknown) (no (unknown) (unknown) MDM - (units (unkno wn) date) Nausea/Vomiting/Trupti unknown) rrhea (unknown) (no (unknown) (unknown) MDM Narrative (units ( unknown) date) unknown) (unknown) (no (unknown) (unknown) MR#: [id number] (units (unknown) date) unknown) (unknown) (no (unknown) (unknown) 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 (unknown) (no (unknown) (unknown) MSCL: Non-tender, (units (unknown) date) no muscle atrophy, unknown) muscles strength 5/5 upper and lower (unknown) (no (unknown) (unknown) Marijuana use, (units (unknown) date) continuous unknown) (unknown) (no (unknown) (unknown) Tiffanie kindly (units (unknown) date) accepts. unknown) (unknown) (no (unknown) (unknown) Medical History (units (unknown) date) (Reviewed 04/13/22 unknown) @ 09:52 by Mine Harrington DO) (unknown) (no (unknown) (unknown) Medical decision (units (unknown) date) making narrative: unknown) (unknown) (no (unknown) (unknown) Miscellaneous: No (units (unknown) date) hernias are seen. ? unknown) ? (unknown) (no (unknown) (unknown) Centre # (Auto) (units ( unknown) date) (0-900) /uL unknown) (unknown) (no (unknown) (unknown) Centre # (Auto) (units ( unknown) date) (0-900) /uL unknown) (unknown) (no (unknown) (unknown) Centre # (Auto) 500 (units (unknown) date) (0-900) /uL unknown) (unknown) (no (unknown) (unknown) Centre % (Auto) (units ( unknown) date) (3-14) % unknown) (unknown) (no (unknown) (unknown) Centre % (Auto) (units ( unknown) date) (3-14) % unknown) (unknown) (no (unknown) (unknown) Centre % (Auto) 8.7 (units (unknown) date) (3-14) % unknown) (unknown) (no (unknown) (unknown) Mother Diabetes (units (unknown) date) mellitus unknown) (unknown) (no (unknown) (unknown) NEURO:CN 2-12 (units ( unknown) date) intact, sensation unknown) normall (unknown) (no (unknown) (unknown) Narrative (units (unkn own) date) unknown) (unknown) (no (unknown) (unknown) Neut # (Auto) (units ( unknown) date) (3375-1625) /uL unknown) (unknown) (no (unknown) (unknown) Neut # (Auto) (units ( unknown) date) (4306-8614) /uL unknown) (unknown) (no (unknown) (unknown) Neut # (Auto) 4300 (units (unknown) date) (9787-7227) /uL unknown) (unknown) (no (unknown) (unknown) Neut % (Auto) (units ( unknown) date) (50-75) % unknown) (unknown) (no (unknown) (unknown) Neut % (Auto) (units ( unknown) date) (50-75) % unknown) (unknown) (no (unknown) (unknown) Neut % (Auto) 69.8 (units (unknown) date) (50-75) % unknown) (unknown) (no (unknown) (unknown) No acute finding. (units (unknown) date) unknown) (unknown) (no (unknown) (unknown) Ordered: (units (unkno wn) date) unknown) (unknown) (no (unknown) (unknown) Ordering Provider: (units (unknown) date) Mine Harrington D.O. unknown) (unknown) (no (unknown) (unknown) Orders (units (unkno wn) date) unknown) (unknown) (no (unknown) (unknown) Other Colon cancer (units (unknown) date) unknown) (unknown) (no (unknown) (unknown) Oxygen Delivery (units (unknown) date) Method 04/13/22 unknown) 09:33 (unknown) (no (unknown) (unknown) PELVIS: (units (unkno wn) date) unknown) (unknown) (no (unknown) (unknown) POTASSIUM CHLORIDE (units (unknown) date) IN WATER (Potassium unknown) Cl 10 Meq/100 Ml Lidia) 10 meq in 100 mls (unknown) (no (unknown) (unknown) PROCEDURE:? CT (units (unknown) date) ABDOMEN PELVIS W unknown) CON (unknown) (no (unknown) (unknown) Pancreas:? No (units ( unknown) date) pancreatic ductal unknown) dilatation.? 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 She is hypokalemic, she is acute kidney (unknown) (no (unknown) (unknown) Patient presents (units (unknown) date) with complaint of unknown) abdominal pain and vomiting consistent with (unknown) (no (unknown) (unknown) Patient: (units (unkno wn) date) Dameon Castro MR#: unknown) [id number] (unknown) (no (unknown) (unknown) Patient: (units (unkno wn) date) Dameon Castro unknown) (unknown) (no (unknown) (unknown) Pelvic Nodes: No (units (unknown) date) enlarged lymph unknown) nodes.? (unknown) (no (unknown) (unknown) Pelvic Organs:? (units (unknown) date) IUD noted.? No unknown) abnormal finding of the uterus or ovaries.? (unknown) (no (unknown) (unknown) Peritoneum:? No (units (unknown) date) abnormal unknown) intraperitoneal fluid.? No free air.? (unknown) (no (unknown) (unknown) Potassium (units (unkn own) date) (3.4-5.1) mmol/L unknown) (unknown) (no (unknown) (unknown) Potassium (units (unkn own) date) (3.4-5.1) mmol/L unknown) (unknown) (no (unknown) (unknown) Potassium 2.7 L* (units (unknown) date) (3.4-5.1) mmol/L unknown) (unknown) (no (unknown) (unknown) Procedure: CT (units ( unknown) date) abdomen pelvis w unknown) con (unknown) (no (unknown) (unknown) Pulse Oximetry 95 (units (unknown) date) unknown) (unknown) (no (unknown) (unknown) Pulse Oximetry 98 (units (unknown) date) 04/13/22 09:33 unknown) (unknown) (no (unknown) (unknown) Pulse Rate 79 (units ( unknown) date) unknown) (unknown) (no (unknown) (unknown) Pulse Rate 90 (units ( unknown) date) 04/13/22 09:33 unknown) (unknown) (no (unknown) (unknown) RDW (11.6-14.8) % (units (unknown) date) unknown) (unknown) (no (unknown) (unknown) RDW (11.6-14.8) % (units (unknown) date) unknown) (unknown) (no (unknown) (unknown) RDW 13.8 (units (unkno wn) date) (11.6-14.8) % unknown) (unknown) (no (unknown) (unknown) ROS Unobtainable: (units (unknown) date) All systems unknown) reviewed + are unremarkable except as noted in HPI (unknown) (no (unknown) (unknown) Reevaluation #1: (units (unknown) date) unknown) (unknown) (no (unknown) (unknown) Reevaluation #2: (units (unknown) date) unknown) (unknown) (no (unknown) (unknown) Reevaluation(s) (units (unknown) date) unknown) (unknown) (no (unknown) (unknown) Related Data (units (u nknown) date) unknown) (unknown) (no (unknown) (unknown) Respiratory Rate (units (unknown) date) 16 04/13/22 09:33 unknown) (unknown) (no (unknown) (unknown) Respiratory Rate (units (unknown) date) 24 unknown) (unknown) (no (unknown) (unknown) Result diagrams: (units (unknown) date) unknown) (unknown) (no (unknown) (unknown) Review of Systems (units (unknown) date) unknown) (unknown) (no (unknown) (unknown) Bobby Oropeza (units (u nknown) date) unknown) (unknown) (no (unknown) (unknown) SARS-CoV-2 (PCR) (units (unknown) date) (Negative) unknown) (unknown) (no (unknown) (unknown) SARS-CoV-2 (PCR) (units (unknown) date) (Negative) unknown) (unknown) (no (unknown) (unknown) SARS-CoV-2 (PCR) (units (unknown) date) Negative (Negative) unknown) (unknown) (no (unknown) (unknown) SKIN: No rash, (units (unknown) date) erythema or other unknown) skin changes noted. (unknown) (no (unknown) (unknown) Scopolamine (units (un known) date) (Scopolamine 1 unknown) Patch) 1 patch TOP Q72H KIRIT (unknown) (no (unknown) (unknown) Signed By: (units (unk nown) date) unknown) (unknown) (no (unknown) (unknown) Sinus rhythm rate (units (unknown) date) of 76 VA 146 QRS 86 unknown) and QTC 479. Left ventricular (unknown) (no (unknown) (unknown) Smoking Status: (units (unknown) date) Current every day unknown) smoker (unknown) (no (unknown) (unknown) Smoking Status: (units (unknown) date) Current every day unknown) smoker (unknown) (no (unknown) (unknown) Social History (units (unknown) date) (Reviewed 04/13/22 unknown) @ 09:52 by Mine Harrington DO) (unknown) (no (unknown) (unknown) Sodium (137-145) (units (unknown) date) mmol/L unknown) (unknown) (no (unknown) (unknown) Sodium (137-145) (units (unknown) date) mmol/L unknown) (unknown) (no (unknown) (unknown) Sodium 138 (units (unk nown) date) (137-145) mmol/L unknown) (unknown) (no (unknown) (unknown) Sodium Chloride (units (unknown) date) (Normal Saline unknown) 0.9%) 1,000 mls @ 1,000 mls/hr IV BOLUS ONE (unknown) (no (unknown) (unknown) Source: patient (units (unknown) date) and old records unknown) reviewed (unknown) (no (unknown) (unknown) Spleen:? Normal (units (unknown) date) size and appearance unknown) of the spleen. (unknown) (no (unknown) (unknown) Stated complaint: (units (unknown) date) cyclical vomiting unknown) (unknown) (no (unknown) (unknown) States her pain is (units (unknown) date) typical of her past unknown) episodes. Patient states she is been (unknown) (no (unknown) (unknown) Stomach and (units (un known) date) Bowel:? No unknown) abnormally dilated or thickened loop of bowel.? No (unknown) (no (unknown) (unknown) Substance Use (units ( unknown) date) Type: marijuana unknown) (unknown) (no (unknown) (unknown) Surgical History (units (unknown) date) (Reviewed 04/13/22 unknown) @ 09:52 by Mine Harrington DO) (unknown) (no (unknown) (unknown) TECHNIQUE:? (units (un known) date) unknown) (unknown) (no (unknown) (unknown) Temperature 98.0 F (units (unknown) date) 04/13/22 09:33 unknown) (unknown) (no (unknown) (unknown) This is a (units (unkn own) date) 46-year-old female unknown) with history of cyclic vomiting, polysubstance (unknown) (no (unknown) (unknown) Time Seen by (units (u nknown) date) Provider: 04/13/22 unknown) 09:27 (unknown) (no (unknown) (unknown) Time: 10:45 (units (un known) date) unknown) (unknown) (no (unknown) (unknown) Time: 11:30 (units (un known) date) unknown) (unknown) (no (unknown) (unknown) Total Bilirubin (units (unknown) date) (0.2-1.3) mg/dL unknown) (unknown) (no (unknown) (unknown) Total Bilirubin (units (unknown) date) (0.2-1.3) mg/dL unknown) (unknown) (no (unknown) (unknown) Total Bilirubin (units (unknown) date) 1.4 H (0.2-1.3) unknown) mg/dL (unknown) (no (unknown) (unknown) Total Critical (units (unknown) date) Care Time: 25 unknown) (unknown) (no (unknown) (unknown) Total Protein (units ( unknown) date) (6.3-8.2) g/dL unknown) (unknown) (no (unknown) (unknown) Total Protein (units ( unknown) date) (6.3-8.2) g/dL unknown) (unknown) (no (unknown) (unknown) Total Protein 10.5 (units (unknown) date) H (6.3-8.2) g/dL unknown) (unknown) (no (unknown) (unknown) Urinary (units (unkno wn) date) unknown) (unknown) (no (unknown) (unknown) VBG Base Excess (units (unknown) date) (0-4) mmol/L unknown) (unknown) (no (unknown) (unknown) VBG Base Excess (units (unknown) date) 22.0 H (0-4) mmol/L unknown) (unknown) (no (unknown) (unknown) VBG Base Excess (units (unknown) date) (0-4) mmol/L unknown) (unknown) (no (unknown) (unknown) VBG HCO3 (23-28) (units (unknown) date) mmol/L unknown) (unknown) (no (unknown) (unknown) VBG HCO3 43 H (units ( unknown) date) (23-28) mmol/L unknown) (unknown) (no (unknown) (unknown) VBG HCO3 (23-28) (units (unknown) date) mmol/L unknown) (unknown) (no (unknown) (unknown) VBG O2 Saturation (units (unknown) date) (70-75) % unknown) (unknown) (no (unknown) (unknown) VBG O2 Saturation (units (unknown) date) 97 H (70-75) % unknown) (unknown) (no (unknown) (unknown) VBG O2 Saturation (units (unknown) date) (70-75) % unknown) (unknown) (no (unknown) (unknown) VBG Total CO2 (units ( unknown) date) (24-29) mmol/L unknown) (unknown) (no (unknown) (unknown) VBG Total CO2 44 H (units (unknown) date) (24-29) mmol/L unknown) (unknown) (no (unknown) (unknown) VBG Total CO2 (units ( unknown) date) (24-29) mmol/L unknown) (unknown) (no (unknown) (unknown) VBG [Venous Blood (units (unknown) date) Gas] Stat unknown) (unknown) (no (unknown) (unknown) VBG pCO2 (45-50) (units (unknown) date) mmHg unknown) (unknown) (no (unknown) (unknown) VBG pCO2 40.7 L (units (unknown) date) (45-50) mmHg unknown) (unknown) (no (unknown) (unknown) VBG pCO2 (45-50) (units (unknown) date) mmHg unknown) (unknown) (no (unknown) (unknown) VBG pH (7.33-7.43) (units (unknown) date) unknown) (unknown) (no (unknown) (unknown) VBG pH 7.63 H (units ( unknown) date) (7.33-7.43) unknown) (unknown) (no (unknown) (unknown) VBG pH (7.33-7.43) (units (unknown) date) unknown) (unknown) (no (unknown) (unknown) VBG pO2 (35-45) (units (unknown) date) mmHg unknown) (unknown) (no (unknown) (unknown) VBG pO2 79 H (units (u nknown) date) (35-45) mmHg unknown) (unknown) (no (unknown) (unknown) VBG pO2 (35-45) (units (unknown) date) mmHg unknown) (unknown) (no (unknown) (unknown) Ventral Wall: ? No (units (unknown) date) hernias.? unknown) (unknown) (no (unknown) (unknown) Vessels:? 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 (unknown) (no (unknown) (unknown) Vital Signs (units (un known) date) unknown) (unknown) (no (unknown) (unknown) Vital signs: (units (u nknown) date) unknown) (unknown) (no (unknown) (unknown) [Embedded Image (units (unknown) date) Not Available] unknown) (unknown) (no (unknown) (unknown) [METOCLOPRAMIDE] (units (unknown) date) unknown) (unknown) (no (unknown) (unknown) [x] Data Review (units (unknown) date) and interpretation unknown) (unknown) (no (unknown) (unknown) [x] Documentation (units (unknown) date) unknown) (unknown) (no (unknown) (unknown) [x] Medication (units (unknown) date) orders and unknown) management (unknown) (no (unknown) (unknown) [x] Patient (units (un known) date) assessment and unknown) monitoring of vital signs (unknown) (no (unknown) (unknown) abuse, alcohol use (units (unknown) date) and angioedema. unknown) Patient presents with complaint of vomiting (unknown) (no (unknown) (unknown) adjustment (units (unk nown) date) unknown) (unknown) (no (unknown) (unknown) alcohol intake (units (unknown) date) frequency: 3 or unknown) more drinks per day (unknown) (no (unknown) (unknown) alcohol intake: (units (unknown) date) current unknown) (unknown) (no (unknown) (unknown) allergies to (units (un known) date) Reglan, unknown) promethazine IV but can tolerate per rectum and latex. She (unknown) (no (unknown) (unknown) amlodipine 5 mg (units (unknown) date) tablet 5 mg PO unknown) DAILY 03/20/22 04/13/22 (unknown) (no (unknown) (unknown) angioedema although (units (unknown) date) she is had 2 unknown) episodes with her oropharynx on her past visits (unknown) (no (unknown) (unknown) are being held and (units (unknown) date) patient is also unknown) receiving hydration. (unknown) (no (unknown) (unknown) are being obtained (units (unknown) date) at this time. No unknown) clear source of infection so antibiotics (unknown) (no (unknown) (unknown) artery near the (units (unknown) date) splenic hilum.. unknown) (unknown) (no (unknown) (unknown) based on this (units ( unknown) date) imaging was unknown) obtained. Plan to continue with hydration, repeat (unknown) (no (unknown) (unknown) bases to the pubic (units (unknown) date) symphysis.? Coronal unknown) and sagittal reformats were performed.? (unknown) (no (unknown) (unknown) bladder normal. (units (unknown) date) unknown) (unknown) (no (unknown) (unknown) bleeding or (units (un known) date) discharge. Patient unknown) states she has not been able to keep down her (unknown) (no (unknown) (unknown) bloody stools. She (units (unknown) date) states no dysuria, unknown) urgency or frequency. No vaginal (unknown) (no (unknown) (unknown) bupropion HCl 100 (units (unknown) date) mg tablet,12 hr 100 unknown) mg PO DAILY 03/20/22 04/13/22 (unknown) (no (unknown) (unknown) but includes the (units (unknown) date) following: unknown) (unknown) (no (unknown) (unknown) changes. 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 (unknown) (no (unknown) (unknown) count, creatinine (units (unknown) date) is once again unknown) elevated and had returned to baseline on past (unknown) (no (unknown) (unknown) deterioration of (units (unknown) date) the [cardiac] unknown) system(s) required my full and direct attention, (unknown) (no (unknown) (unknown) distress. (units (unkn own) date) unknown) (unknown) (no (unknown) (unknown) does use tobacco, (units (unknown) date) states she drinks unknown) 3-5 alcoholic drinks daily and states she (unknown) (no (unknown) (unknown) doing very well (units (unknown) date) after Haldol and unknown) Benadryl IV she is not required any additional (unknown) (no (unknown) (unknown) doses. We did (units ( unknown) date) discuss with unknown) hospitalist she is had angioedema on past (unknown) (no (unknown) (unknown) ducts (units (unkno wn) date) unknown) (unknown) (no (unknown) (unknown) electrolytes, (units ( unknown) date) renal function were unknown) obtained. Fluids, Haldol and Benadryl as (unknown) (no (unknown) (unknown) elevated at 9, CT (units (unknown) date) abdomen pelvis was unknown) obtained secondary to this there is a (unknown) (no (unknown) (unknown) erythema, tonsillar (units (unknown) date) enlargement or unknown) uvular deviation, no obvious swelling of lips (unknown) (no (unknown) (unknown) extremities, full (units (unknown) date) range of motion unknown) (unknown) (no (unknown) (unknown) fluconazole 200 mg (units (unknown) date) tablet 200 mg PO unknown) WEEKLY 4 weeks #4 tabs 03/21/22 (unknown) (no (unknown) (unknown) for the past 3 (units (unknown) date) days. Patient unknown) states this is similar to her prior cyclic (unknown) (no (unknown) (unknown) her prior cyclic (units (unknown) date) vomiting unknown) exacerbations she does continue to use THC she does (unknown) (no (unknown) (unknown) home medications (units (unknown) date) the last couple unknown) days but did try Phenergan suppository this (unknown) (no (unknown) (unknown) hospitalization as (units (unknown) date) well as unknown) hypokalemia, patient isn't having persistent vomiting (unknown) (no (unknown) (unknown) hospitalizations (units (unknown) date) but no symptoms at unknown) this point. Plan for observation, (unknown) (no (unknown) (unknown) household members: (units (unknown) date) spouse unknown) (unknown) (no (unknown) (unknown) today. We (units (unknown) date) did discuss that unknown) she was noted to have angioedema on the last (unknown) (no (unknown) (unknown) hypertrophy, (units (u nknown) date) diffuse ST unknown) depression. (unknown) (no (unknown) (unknown) increased from (units (unknown) date) unknown) (unknown) (no (unknown) (unknown) injury again today (units (unknown) date) and her lactate is unknown) 9. Patient's exam was reassuring but (unknown) (no (unknown) (unknown) intervention and (units (unknown) date) personal unknown) management. The aggregate critical care time was [] (unknown) (no (unknown) (unknown) is comfortable (units (unknown) date) with this and not unknown) receiving more radiation. Labs including (unknown) (no (unknown) (unknown) lactate and (units (un known) date) replacement of unknown) potassium IV with equal for admission. (unknown) (no (unknown) (unknown) last cocaine use (units (unknown) date) but does not think unknown) it was recently. She is accompanied by her (unknown) (no (unknown) (unknown) latex [LATEX] (units ( unknown) date) Allergy Unknown unknown) Verified 04/13/22 09:42 (unknown) (no (unknown) (unknown) mesenteric (units (unk nown) date) inflammatory unknown) changes. (unknown) (no (unknown) (unknown) metoclopramide (units (unknown) date) AdvReac Unknown unknown) DYSTONIA Verified 04/13/22 09:42 (unknown) (no (unknown) (unknown) minutes. This time (units (unknown) date) is in addition to unknown) time spent performing reported procedures (unknown) (no (unknown) (unknown) morning which was (units (unknown) date) not helpful. unknown) Patient states no surgeries. She does have (unknown) (no (unknown) (unknown) movements are (units ( unknown) date) intact, nares are unknown) clear, Throat is clear without any exudates, (unknown) (no (unknown) (unknown) not show acute (units (unknown) date) change. Patient and unknown) I discussed her findings so far. She is (unknown) (no (unknown) (unknown) of mA and/or kV (units (unknown) date) according to unknown) patient size.? (unknown) (no (unknown) (unknown) patient has often (units (unknown) date) responded well to unknown) these. Patient's labs showed normal white (unknown) (no (unknown) (unknown) pericolonic or (units (unknown) date) unknown) (unknown) (no (unknown) (unknown) potassium chloride (units (unknown) date) 20 mEq 20 meq PO unknown) DAILY #30 tabs 03/21/22 (unknown) (no (unknown) (unknown) promethazine (units (u nknown) date) [PROMETHAZINE] unknown) Allergy Mild ERYTHEMA Verified 04/13/22 09:42 (unknown) (no (unknown) (unknown) radiation dose (units (unknown) date) reduction, the unknown) following was used:? automated exposure control, (unknown) (no (unknown) (unknown) rigidity, no (units (u nknown) date) masses noted, no unknown) hepatosplenomegaly, no distention. No bruit. 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 Her unknown) was not in the room during this discussion (unknown) (no (unknown) (unknown) stooling regularly (units (unknown) date) with no diarrhea or unknown) constipation and denies any black or (unknown) (no (unknown) (unknown) sustained-release (units (unknown) date) unknown) (unknown) (no (unknown) (unknown) symmetrically, no (units (unknown) date) tachypnea accessory unknown) muscle use. (unknown) (no (unknown) (unknown) symptoms (units (unkno wn) date) currently, lactate unknown) is improved to 3 after fluids. Patient has been (unknown) (no (unknown) (unknown) tablet,extended (units (unknown) date) release unknown) (unknown) (no (unknown) (unknown) the lung (units (unkno wn) date) unknown) (unknown) (no (unknown) (unknown) tobacco type: (units ( unknown) date) vaping unknown) (unknown) (no (unknown) (unknown) use cocaine (units (un known) date) intermittently. She unknown) is not currently having any symptoms of (unknown) (no (unknown) (unknown) uses THC (units (unkno wn) date) intermittently as unknown) well as cocaine. Patient states she is unsure of her (unknown) (no (unknown) (unknown) vaccination. She (units (unknown) date) had testing sent unknown) for hereditary angioedema but does not know (unknown) (no (unknown) (unknown) vomiting episodes (units (unknown) date) in the past. She unknown) denies fevers. She states she is been (unknown) (no (unknown) (unknown) vomiting up (units (un known) date) everything she unknown) tries to put in her stomach, denies any hemoptysis. (unknown) (no (unknown) (unknown) what the results (units (unknown) date) of those were. unknown) (unknown) (no (unknown) (unknown) will also update (units (unknown) date) him. She is unknown) receiving IV potassium, lactate and blood cultures (unknown) (no (unknown) (unknown) work was reviewed (units (unknown) date) complement testing unknown) was sent. Patient states symptoms are very Result panel 75 (unknown) (no (unknown) (unknown) (no value) (units (unk nown) date) unknown) (unknown) (no (unknown) (unknown) Date of Service: (units (unknown) date) 04/13/22 unknown) (unknown) (no (unknown) (unknown) (no value) (units (unk nown) date) unknown) (unknown) (no (unknown) (unknown) - (units (unkno wn) date) unknown) (unknown) (no (unknown) (unknown) 04/13/22 09:20 (units (unknown) date) unknown) (unknown) (no (unknown) (unknown) [facility] (units (unknown) date) [address] unknown) [place] [address] (unknown) (no (unknown) (unknown) Laboratory (units (unk nown) date) Results - last 24 unknown) hr (unknown) (no (unknown) (unknown) Progress Note (units ( unknown) date) unknown) (unknown) (no (unknown) (unknown) (no value) (units (unk nown) date) unknown) (unknown) (no (unknown) (unknown) 04/13/22 04/13/22 (units (unknown) date) unknown) (unknown) (no (unknown) (unknown) 04/13/22 04/13/22 (units (unknown) date) 04/13/22 unknown) (unknown) (no (unknown) (unknown) 09:20 09:20 09:40 (units (unknown) date) unknown) (unknown) (no (unknown) (unknown) 09:40 09:55 11:01 (units (unknown) date) unknown) (unknown) (no (unknown) (unknown) 11:20 14:35 (units (un known) date) unknown) (unknown) (no (unknown) (unknown) 04/13/22 (units (unkno wn) date) unknown) (unknown) (no (unknown) (unknown) labs this evening (units (unknown) date) and determine unknown) further placement is necessary. (unknown) (no (unknown) (unknown) mg daily. (units (unkn own) date) unknown) (unknown) (no (unknown) (unknown) (past 8 hours): (units (unknown) date) unknown) (unknown) (no (unknown) (unknown) 1. Epigastric (units ( unknown) date) pain. Provide unknown) intravenous pantoprazole. Initial dose of 80 mg (unknown) (no (unknown) (unknown) 14:30 04/13/22 (units (unknown) date) unknown) (unknown) (no (unknown) (unknown) 19:59 04/13/22 (units (unknown) date) unknown) (unknown) (no (unknown) (unknown) 2. Persistent (units ( unknown) date) vomiting likely unknown) secondary to THC as has been in the past. Treat (unknown) (no (unknown) (unknown) 20:54 (units (unkno wn) date) unknown) (unknown) (no (unknown) (unknown) [address] (units (unkno wn) date) unknown) (unknown) (no (unknown) (unknown) 3. Hypokalemia. (units (unknown) date) Replacement unknown) initiated in the emergency room. Continue. Follow (unknown) (no (unknown) (unknown) 4. Anxiety, (units (un known) date) chronic and acute unknown) on chronic. Treat as needed. Will provide (unknown) (no (unknown) (unknown) 5. DVT (units (o wn) date) prophylaxis. unknown) Enoxaparin 40 mg subcu every 24 hours. (unknown) (no (unknown) (unknown) 6. Hypertension, (units (unknown) date) chronic. Continue unknown) patient's regular medication of amlodipine 5 (unknown) (no (unknown) (unknown) 7. Clear fluid (units (unknown) date) diet and IV fluids unknown) for now until nausea vomiting is consistently (unknown) (no (unknown) (unknown) 8. Code status: (units (unknown) date) Presumed to be unknown) full code until told otherwise by the patient. (unknown) (no (unknown) (unknown) ALT (units (o wn) date) unknown) (unknown) (no (unknown) (unknown) ALT (units (o wn) date) unknown) (unknown) (no (unknown) (unknown) ALT 35 H (units (o wn) date) unknown) (unknown) (no (unknown) (unknown) AST (units (o wn) date) unknown) (unknown) (no (unknown) (unknown) AST (units (o wn) date) unknown) (unknown) (no (unknown) (unknown) AST 36 (units (o wn) date) unknown) (unknown) (no (unknown) (unknown) Abd: soft, (units (unk nown) date) epigastric unknown) tenderness, normal bowel sounds (unknown) (no (unknown) (unknown) Abscess (units (o wn) date) unknown) (unknown) (no (unknown) (unknown) Admit to (units ( wn) date) inpatient since unknown) greater than 2 in night is expected with the patient's (unknown) (no (unknown) (unknown) Age/Sex: 46 / F (units (unknown) date) unknown) (unknown) (no (unknown) (unknown) Albumin (units (o wn) date) unknown) (unknown) (no (unknown) (unknown) Albumin (units (o wn) date) unknown) (unknown) (no (unknown) (unknown) Albumin 5.6 H (units ( unknown) date) unknown) (unknown) (no (unknown) (unknown) Albumin/Globulin (units (unknown) date) Ratio unknown) (unknown) (no (unknown) (unknown) Albumin/Globulin (units (unknown) date) Ratio unknown) (unknown) (no (unknown) (unknown) Albumin/Globulin (units (unknown) date) Ratio 1.1 unknown) (unknown) (no (unknown) (unknown) Alkaline (units (unkno wn) date) Phosphatase unknown) (unknown) (no (unknown) (unknown) Alkaline (units (unkno wn) date) Phosphatase unknown) (unknown) (no (unknown) (unknown) Alkaline (units (unkno wn) date) Phosphatase 96 unknown) (unknown) (no (unknown) (unknown) Assessment + Plan (units (unknown) date) unknown) (unknown) (no (unknown) (unknown) Assessment + Plan (units (unknown) date) narrative: unknown) (unknown) (no (unknown) (unknown) BUN (units (unkno wn) date) unknown) (unknown) (no (unknown) (unknown) BUN (units (unkno wn) date) unknown) (unknown) (no (unknown) (unknown) BUN 31 H (units (unkno wn) date) unknown) (unknown) (no (unknown) (unknown) BUN/Creatinine (units (unknown) date) Ratio unknown) (unknown) (no (unknown) (unknown) BUN/Creatinine (units (unknown) date) Ratio unknown) (unknown) (no (unknown) (unknown) BUN/Creatinine (units (unknown) date) Ratio 18.0 unknown) (unknown) (no (unknown) (unknown) Baso # (Auto) (units ( unknown) date) unknown) (unknown) (no (unknown) (unknown) Baso # (Auto) (units ( unknown) date) unknown) (unknown) (no (unknown) (unknown) Baso # (Auto) 0 (units (unknown) date) unknown) (unknown) (no (unknown) (unknown) Baso % (Auto) (units ( unknown) date) unknown) (unknown) (no (unknown) (unknown) Baso % (Auto) (units ( unknown) date) unknown) (unknown) (no (unknown) (unknown) Baso % (Auto) 0.5 (units (unknown) date) unknown) (unknown) (no (unknown) (unknown) Blood Pressure (units (unknown) date) 125/75 144/95 H unknown) 112/75 (unknown) (no (unknown) (unknown) CV: RRR, no (units (un known) date) murmur or rubs unknown) (unknown) (no (unknown) (unknown) Calcium (units (unkno wn) date) unknown) (unknown) (no (unknown) (unknown) Calcium (units (unkno wn) date) unknown) (unknown) (no (unknown) (unknown) Calcium 10.4 H (units (unknown) date) unknown) (unknown) (no (unknown) (unknown) Carbon Dioxide (units (unknown) date) unknown) (unknown) (no (unknown) (unknown) Carbon Dioxide (units (unknown) date) unknown) (unknown) (no (unknown) (unknown) Carbon Dioxide 32 (units (unknown) date) unknown) (unknown) (no (unknown) (unknown) Chloride (units (unkno wn) date) unknown) (unknown) (no (unknown) (unknown) Chloride (units (unkno wn) date) unknown) (unknown) (no (unknown) (unknown) Chloride 82 L (units ( unknown) date) unknown) (unknown) (no (unknown) (unknown) Chronic abdominal (units (unknown) date) pain unknown) (unknown) (no (unknown) (unknown) Creatinine (units (unk nown) date) unknown) (unknown) (no (unknown) (unknown) Creatinine (units (unk nown) date) unknown) (unknown) (no (unknown) (unknown) Creatinine 1.72 H (units (unknown) date) unknown) (unknown) (no (unknown) (unknown) Critical Care (units ( unknown) date) time: unknown) (unknown) (no (unknown) (unknown) Cyclic vomiting (units (unknown) date) syndrome unknown) (unknown) (no (unknown) (unknown) : 1975 (units (unknown) date) Acct:[id number] unknown) (unknown) (no (unknown) (unknown) Daughter (units (unkno wn) date) Angio-edema unknown) (unknown) (no (unknown) (unknown) Deep Vein (units (unkn own) date) Thrombosis/Pulmona unknown) ry Embolism Present on Admission: No (unknown) (no (unknown) (unknown) Eos # (Auto) (units (u nknown) date) unknown) (unknown) (no (unknown) (unknown) Eos # (Auto) (units (u nknown) date) unknown) (unknown) (no (unknown) (unknown) Eos # (Auto) 0 (units (unknown) date) unknown) (unknown) (no (unknown) (unknown) Eos % (Auto) (units (u nknown) date) unknown) (unknown) (no (unknown) (unknown) Eos % (Auto) (units (u nknown) date) unknown) (unknown) (no (unknown) (unknown) Eos % (Auto) 0.1 (units (unknown) date) L unknown) (unknown) (no (unknown) (unknown) Estimated GFR (units ( unknown) date) unknown) (unknown) (no (unknown) (unknown) Estimated GFR (units ( unknown) date) unknown) (unknown) (no (unknown) (unknown) Estimated GFR 36 (units (unknown) date) L unknown) (unknown) (no (unknown) (unknown) Ethyl Alcohol (units ( unknown) date) unknown) (unknown) (no (unknown) (unknown) Ethyl Alcohol (units ( unknown) date) unknown) (unknown) (no (unknown) (unknown) Ethyl Alcohol < (units (unknown) date) 10 unknown) (unknown) (no (unknown) (unknown) Exam (units (unkno wn) date) unknown) (unknown) (no (unknown) (unknown) Exam Narrative: (units (unknown) date) unknown) (unknown) (no (unknown) (unknown) Extremities: (units (u nknown) date) moves all 4 unknown) extremities, is ambulatory, negative Eun?s sign (unknown) (no (unknown) (unknown) Family History (units (unknown) date) (Reviewed 04/13/22 unknown) @ 09:52 by Mine Harrington DO) (unknown) (no (unknown) (unknown) Family history of (units (unknown) date) angioedema unknown) (unknown) (no (unknown) (unknown) Father (units (unkno wn) date) Hypertension unknown) (unknown) (no (unknown) (unknown) Gen: Alert, (units (un known) date) oriented, thin 46 unknown) y.o. , very lethargic (unknown) (no (unknown) (unknown) Globulin (units (unkno wn) date) unknown) (unknown) (no (unknown) (unknown) Globulin (units (unkno wn) date) unknown) (unknown) (no (unknown) (unknown) Globulin 4.9 H (units (unknown) date) unknown) (unknown) (no (unknown) (unknown) Glucose (units (unkno wn) date) unknown) (unknown) (no (unknown) (unknown) Glucose (units (unkno wn) date) unknown) (unknown) (no (unknown) (unknown) Glucose 134 H (units ( unknown) date) unknown) (unknown) (no (unknown) (unknown) HEENT: (units (unkno wn) date) normocephalic, unknown) atraumatic, conjunctiva clear, sclera non-icteric, oral (unknown) (no (unknown) (unknown) Hct (units (unkno wn) date) unknown) (unknown) (no (unknown) (unknown) Hct (units (unkno wn) date) unknown) (unknown) (no (unknown) (unknown) Hct 44.2 (units (unkno wn) date) unknown) (unknown) (no (unknown) (unknown) Hgb (units (unkno wn) date) unknown) (unknown) (no (unknown) (unknown) Hgb (units (unkno wn) date) unknown) (unknown) (no (unknown) (unknown) Hgb 15.4 (units (unkno wn) date) unknown) (unknown) (no (unknown) (unknown) Hx of (units (unkno wn) date) appendectomy unknown) (unknown) (no (unknown) (unknown) Hx of (units (unkno wn) date) cholecystectomy unknown) (unknown) (no (unknown) (unknown) I spent a total (units (unknown) date) of [] minutes of unknown) critical care time on this patient's care (unknown) (no (unknown) (unknown) Ketones (units (unkno wn) date) unknown) (unknown) (no (unknown) (unknown) Ketones (units (unkno wn) date) unknown) (unknown) (no (unknown) (unknown) Ketones 0.20 (units (u nknown) date) unknown) (unknown) (no (unknown) (unknown) Labs (units (unkno wn) date) unknown) (unknown) (no (unknown) (unknown) Labs: (units (unkno wn) date) unknown) (unknown) (no (unknown) (unknown) Lactate (units (unkno wn) date) unknown) (unknown) (no (unknown) (unknown) Lactate 9.7 H* (units (unknown) date) unknown) (unknown) (no (unknown) (unknown) Lactate 3.0 H (units ( unknown) date) 1.3 unknown) (unknown) (no (unknown) (unknown) Lipase (units (unkno wn) date) unknown) (unknown) (no (unknown) (unknown) Lipase (units (unkno wn) date) unknown) (unknown) (no (unknown) (unknown) Lipase 96 (units (unkn own) date) unknown) (unknown) (no (unknown) (unknown) Lymph # (Auto) (units (unknown) date) unknown) (unknown) (no (unknown) (unknown) Lymph # (Auto) (units (unknown) date) unknown) (unknown) (no (unknown) (unknown) Lymph # (Auto) (units (unknown) date) 1300 unknown) (unknown) (no (unknown) (unknown) Lymph % (Auto) (units (unknown) date) unknown) (unknown) (no (unknown) (unknown) Lymph % (Auto) (units (unknown) date) unknown) (unknown) (no (unknown) (unknown) Lymph % (Auto) (units (unknown) date) 20.9 L unknown) (unknown) (no (unknown) (unknown) MCH (units (unkno wn) date) unknown) (unknown) (no (unknown) (unknown) MCH (units (unkno wn) date) unknown) (unknown) (no (unknown) (unknown) MCH 32.4 (units (unkno wn) date) unknown) (unknown) (no (unknown) (unknown) MCHC (units (unkno wn) date) unknown) (unknown) (no (unknown) (unknown) MCHC (units (unkno wn) date) unknown) (unknown) (no (unknown) (unknown) MCHC 35.0 (units (unkn own) date) unknown) (unknown) (no (unknown) (unknown) MCV (units (unkno wn) date) unknown) (unknown) (no (unknown) (unknown) MCV (units (unkno wn) date) unknown) (unknown) (no (unknown) (unknown) MCV 92.6 (units (unkno wn) date) unknown) (unknown) (no (unknown) (unknown) 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 (unknown) (no (unknown) (unknown) Marijuana use, (units (unknown) date) continuous unknown) (unknown) (no (unknown) (unknown) Medical History (units (unknown) date) (Reviewed 04/13/22 unknown) @ 09:52 by Mine Harrington DO) (unknown) (no (unknown) (unknown) Centre # (Auto) (units ( unknown) date) unknown) (unknown) (no (unknown) (unknown) Centre # (Auto) (units ( unknown) date) unknown) (unknown) (no (unknown) (unknown) Centre # (Auto) 500 (units (unknown) date) unknown) (unknown) (no (unknown) (unknown) Centre % (Auto) (units ( unknown) date) unknown) (unknown) (no (unknown) (unknown) Centre % (Auto) (units ( unknown) date) unknown) (unknown) (no (unknown) (unknown) Centre % (Auto) 8.7 (units (unknown) date) unknown) (unknown) (no (unknown) (unknown) Mother Diabetes (units (unknown) date) mellitus unknown) (unknown) (no (unknown) (unknown) Narrative (units (unkn own) date) unknown) (unknown) (no (unknown) (unknown) Neck: supple, (units ( unknown) date) full ROM, no JVD, unknown) trachea is midline (unknown) (no (unknown) (unknown) Neuro: Unable to (units (unknown) date) stay awake while unknown) speaking (unknown) (no (unknown) (unknown) Neut # (Auto) (units ( unknown) date) unknown) (unknown) (no (unknown) (unknown) Neut # (Auto) (units ( unknown) date) unknown) (unknown) (no (unknown) (unknown) Neut # (Auto) (units ( unknown) date) 4300 unknown) (unknown) (no (unknown) (unknown) Neut % (Auto) (units ( unknown) date) unknown) (unknown) (no (unknown) (unknown) Neut % (Auto) (units ( unknown) date) unknown) (unknown) (no (unknown) (unknown) Neut % (Auto) (units ( unknown) date) 69.8 unknown) (unknown) (no (unknown) (unknown) Not in the mood (units (unknown) date) to discuss at this unknown) time. (unknown) (no (unknown) (unknown) Objective (units (unkn own) date) unknown) (unknown) (no (unknown) (unknown) Other Colon (units (un known) date) cancer unknown) (unknown) (no (unknown) (unknown) Oxygen Delivery (units (unknown) date) Method Room Air unknown) (unknown) (no (unknown) (unknown) Oxygen Flow Rate (units (unknown) date) 0 unknown) (unknown) (no (unknown) (unknown) Oxygen Flow Rate (units (unknown) date) 0 unknown) (unknown) (no (unknown) (unknown) PFSH (units (unkno wn) date) unknown) (unknown) (no (unknown) (unknown) Pancreatitis (units (u nknown) date) unknown) (unknown) (no (unknown) (unknown) Patient: (units (unkno wn) date) Dameon Castro MR#: unknown) [id number] (unknown) (no (unknown) (unknown) Plt Count (units (unkn own) date) unknown) (unknown) (no (unknown) (unknown) Plt Count (units (unkn own) date) unknown) (unknown) (no (unknown) (unknown) Plt Count 284 (units ( unknown) date) unknown) (unknown) (no (unknown) (unknown) Potassium (units (unkn own) date) unknown) (unknown) (no (unknown) (unknown) Potassium (units (unkn own) date) unknown) (unknown) (no (unknown) (unknown) Potassium 2.7 L* (units (unknown) date) unknown) (unknown) (no (unknown) (unknown) Provider: (units (unkn own) date) Irving Lakhani unknown) D.O. (unknown) (no (unknown) (unknown) Psyche: mildly (units (unknown) date) agitated when unknown) awakened. Patient's main focus is complaining (unknown) (no (unknown) (unknown) Pulse Oximetry 96 (units (unknown) date) 100 99 unknown) (unknown) (no (unknown) (unknown) Pulse Rate 74 60 (units (unknown) date) 72 unknown) (unknown) (no (unknown) (unknown) Quality (units (unkno wn) date) unknown) (unknown) (no (unknown) (unknown) RBC (units (unkno wn) date) unknown) (unknown) (no (unknown) (unknown) RBC (units (unkno wn) date) unknown) (unknown) (no (unknown) (unknown) RBC 4.77 (units (unkno wn) date) unknown) (unknown) (no (unknown) (unknown) RDW (units (unkno wn) date) unknown) (unknown) (no (unknown) (unknown) RDW (units (unkno wn) date) unknown) (unknown) (no (unknown) (unknown) RDW 13.8 (units (unkno wn) date) unknown) (unknown) (no (unknown) (unknown) Resp: Lungs CTA, (units (unknown) date) non-labored unknown) breathing (unknown) (no (unknown) (unknown) Respiratory Rate (units (unknown) date) 22 18 17 unknown) (unknown) (no (unknown) (unknown) Result Diagrams: (units (unknown) date) unknown) (unknown) (no (unknown) (unknown) SARS-CoV-2 (PCR) (units (unknown) date) unknown) (unknown) (no (unknown) (unknown) SARS-CoV-2 (PCR) (units (unknown) date) unknown) (unknown) (no (unknown) (unknown) SARS-CoV-2 (PCR) (units (unknown) date) Negative unknown) (unknown) (no (unknown) (unknown) Signed By: (units (unk nown) date) unknown) (unknown) (no (unknown) (unknown) Skin: no lesions (units (unknown) date) or rashes, dry and unknown) intact (unknown) (no (unknown) (unknown) Smoking Status: (units (unknown) date) Current every day unknown) smoker (unknown) (no (unknown) (unknown) Social History (units (unknown) date) (Reviewed 04/13/22 unknown) @ 09:52 by Mine Harrington DO) (unknown) (no (unknown) (unknown) Sodium (units (unkno wn) date) unknown) (unknown) (no (unknown) (unknown) Sodium (units (unkno wn) date) unknown) (unknown) (no (unknown) (unknown) Sodium 138 (units (unk nown) date) unknown) (unknown) (no (unknown) (unknown) Substitute (units (unk nown) date) decision maker has unknown) not been given. Need to continue to request this (unknown) (no (unknown) (unknown) Surgical History (units (unknown) date) (Reviewed 04/13/22 unknown) @ 09:52 by Mine Harrington DO) (unknown) (no (unknown) (unknown) Temperature 97.8 (units (unknown) date) F 98.2 F 98.4 F unknown) (unknown) (no (unknown) (unknown) Time Spent With (units (unknown) date) Patient unknown) (unknown) (no (unknown) (unknown) Total Bilirubin (units (unknown) date) unknown) (unknown) (no (unknown) (unknown) Total Bilirubin (units (unknown) date) unknown) (unknown) (no (unknown) (unknown) Total Bilirubin (units (unknown) date) 1.4 H unknown) (unknown) (no (unknown) (unknown) Total Protein (units ( unknown) date) unknown) (unknown) (no (unknown) (unknown) Total Protein (units ( unknown) date) unknown) (unknown) (no (unknown) (unknown) Total Protein (units ( unknown) date) 10.5 H unknown) (unknown) (no (unknown) (unknown) VBG Base Excess (units (unknown) date) unknown) (unknown) (no (unknown) (unknown) VBG Base Excess (units (unknown) date) unknown) (unknown) (no (unknown) (unknown) VBG Base Excess (units (unknown) date) 22.0 H unknown) (unknown) (no (unknown) (unknown) VBG HCO3 (units (unkno wn) date) unknown) (unknown) (no (unknown) (unknown) VBG HCO3 (units (o wn) date) unknown) (unknown) (no (unknown) (unknown) VBG HCO3 43 H (units ( unknown) date) unknown) (unknown) (no (unknown) (unknown) VBG O2 Saturation (units (unknown) date) unknown) (unknown) (no (unknown) (unknown) VBG O2 Saturation (units (unknown) date) unknown) (unknown) (no (unknown) (unknown) VBG O2 Saturation (units (unknown) date) 97 H unknown) (unknown) (no (unknown) (unknown) VBG Total CO2 (units ( unknown) date) unknown) (unknown) (no (unknown) (unknown) VBG Total CO2 (units ( unknown) date) unknown) (unknown) (no (unknown) (unknown) VBG Total CO2 44 (units (unknown) date) H unknown) (unknown) (no (unknown) (unknown) VBG pCO2 (units () ) unknown) (unknown) (no (unknown) (unknown) VBG pCO2 (units (o wn) date) unknown) (unknown) (no (unknown) (unknown) VBG pCO2 40.7 L (units (unknown) date) unknown) (unknown) (no (unknown) (unknown) VBG pH (units (o wn) date) unknown) (unknown) (no (unknown) (unknown) VBG pH (units (o wn) date) unknown) (unknown) (no (unknown) (unknown) VBG pH 7.63 H (units ( unknown) date) unknown) (unknown) (no (unknown) (unknown) VBG pO2 (units ( wn) date) unknown) (unknown) (no (unknown) (unknown) VBG pO2 (units (o wn) date) unknown) (unknown) (no (unknown) (unknown) VBG pO2 79 H (units (u nknown) date) unknown) (unknown) (no (unknown) (unknown) VTE (units (o wn) date) unknown) (unknown) (no (unknown) (unknown) Vital Signs (units (un known) date) unknown) (unknown) (no (unknown) (unknown) WBC (units (unkno wn) date) unknown) (unknown) (no (unknown) (unknown) WBC (units (unkno wn) date) unknown) (unknown) (no (unknown) (unknown) WBC 6.2 (units (unkno wn) date) unknown) (unknown) (no (unknown) (unknown) [Embedded Image (units (unknown) date) Not Available] unknown) (unknown) (no (unknown) (unknown) about her (units (unkn own) date) abdominal pain. unknown) (unknown) (no (unknown) (unknown) alcohol intake: (units (unknown) date) current unknown) (unknown) (no (unknown) (unknown) and 40 mg q.12h. (units (unknown) date) Concern for unknown) gastritis. (unknown) (no (unknown) (unknown) chronic (units (unkno wn) date) underlying unknown) anxiety/depression . (unknown) (no (unknown) (unknown) from the patient. (units (unknown) date) unknown) (unknown) (no (unknown) (unknown) household (units (unkn own) date) members: spouse unknown) (unknown) (no (unknown) (unknown) lorazepam and as (units (unknown) date) needed. Can unknown) continue does of bupropion 100 mg daily for (unknown) (no (unknown) (unknown) mucosa pink and (units (unknown) date) moist unknown) (unknown) (no (unknown) (unknown) settled. (units (unkno wn) date) unknown) (unknown) (no (unknown) (unknown) stay and due to (units (unknown) date) risk for increased unknown) severity of the patient's illness. (unknown) (no (unknown) (unknown) today; this time (units (unknown) date) is exclusive of unknown) procedural time. (unknown) (no (unknown) (unknown) with Haldol IV (units (unknown) date) and unknown) diphenhydramine IV as well as scopolamine patch Result panel 76 (unknown) (no date) (unknown) (unknown) > 60 mL/min (unkn own) (unknown) (no date) (unknown) (unknown) 0.87 mg/dL (unkn own) (unknown) (no date) (unknown) (unknown) 134 mmol/L (unkn own) (unknown) (no date) (unknown) (unknown) 145 mg/dL (unkn own) (unknown) (no date) (unknown) (unknown) 2.8 mmol/L (unkn own) (unknown) (no date) (unknown) (unknown) 20 mg/dL (unkn own) (unknown) (no date) (unknown) (unknown) 23.0 (units unknown) (unknown) (unknown) (no date) (unknown) (unknown) 33 mmol/L (unkn own) (unknown) (no date) (unknown) (unknown) 8.5 mg/dL (unkn own) (unknown) (no date) (unknown) (unknown) 94 mmol/L (unkn own) Result panel 77 (unknown) (no date) (unknown) (unknown) 1.015 (units (unkn own) unknown) (unknown) (no date) (unknown) (unknown) 20 (units (unkn own) unknown) (unknown) (no date) (unknown) (unknown) 5 (units (unkn own) unknown) (unknown) (no date) (unknown) (unknown) Negative (units (unkn own) unknown) (unknown) (no date) (unknown) (unknown) Positive (units (unkn own) unknown) (unknown) (no date) (unknown) (unknown) Test not (units (unkn own) performed unknown) Result panel 78 (unknown) (no date) (unknown) (unknown) 3.2 mmol/l (unkn own) Result panel 79 (unknown) (no (unknown) (unknown) (no value) (units (unk nown) date) unknown) (unknown) (no (unknown) (unknown) ATOK (units (unkno wn) date) unknown) (unknown) (no (unknown) (unknown) Gram positive (units ( unknown) date) cocci unknown) (unknown) (no (unknown) (unknown) Identification (units (unknown) date) and Sensitivity unknown) to Follow (unknown) (no (unknown) (unknown) In Both (units (unkno wn) date) Anaerobic and unknown) Aerobic Bottles (unknown) (no (unknown) (unknown) STANEGCoag (units (unk nown) date) negative unknown) Staphylococcus Result panel 80 (unknown) (no date) (unknown) (unknown) (no value) (units (un known) unknown) (unknown) (no date) (unknown) (unknown) 1 (units (unkn own) unknown) (unknown) (no date) (unknown) (unknown) 1 (units (unkn own) unknown) (unknown) (no date) (unknown) (unknown) 4 (units (unkn own) unknown) (unknown) (no date) (unknown) (unknown) 4 (units (unkn own) unknown) Result panel 81 (unknown) (no date) (unknown) (unknown) Detected (units (unkn own) unknown) (unknown) (no date) (unknown) (unknown) Not Detected (units ( unknown) unknown) (unknown) (no date) (unknown) (unknown) Not Detected (units ( unknown) unknown) Result panel 82 (unknown) (no date) (unknown) (unknown) 2.0 mg/dl (unkn own) Result panel 83 (unknown) (no (unknown) (unknown) (no value) (units (unk nown) date) unknown) (unknown) (no (unknown) (unknown) (past 8 hours): (units (unknown) date) unknown) (unknown) (no (unknown) (unknown) 04/13/22 04/13/22 (units (unknown) date) 04/13/22 unknown) (unknown) (no (unknown) (unknown) 04/13/22 04/13/22 (units (unknown) date) unknown) (unknown) (no (unknown) (unknown) 04/13/22 09:20 (units (unknown) date) unknown) (unknown) (no (unknown) (unknown) 04/13/22 (units (unkno wn) date) unknown) (unknown) (no (unknown) (unknown) 09:20 09:20 09:40 (units (unknown) date) unknown) (unknown) (no (unknown) (unknown) 09:40 09:55 11:01 (units (unknown) date) unknown) (unknown) (no (unknown) (unknown) 1. Epigastric (units ( unknown) date) pain. Provide unknown) intravenous pantoprazole. Initial dose of 80 mg (unknown) (no (unknown) (unknown) 11:20 14:35 (units (un known) date) unknown) (unknown) (no (unknown) (unknown) 14:30 04/13/22 (units (unknown) date) unknown) (unknown) (no (unknown) (unknown) 19:59 04/13/22 (units (unknown) date) unknown) (unknown) (no (unknown) (unknown) 2. Persistent (units ( unknown) date) vomiting likely unknown) secondary to THC as has been in the past. Treat (unknown) (no (unknown) (unknown) 20:54 (units (unkno wn) date) unknown) (unknown) (no (unknown) (unknown) [address]12[address] (units (unkno wn) date) unknown) (unknown) (no (unknown) (unknown) 3. Hypokalemia. (units (unknown) date) Replacement unknown) initiated in the emergency room. Continue. Follow (unknown) (no (unknown) (unknown) 4. Anxiety, (units (un known) date) chronic and acute unknown) on chronic. Treat as needed. Will provide (unknown) (no (unknown) (unknown) 5. DVT (units (unkno wn) date) prophylaxis. unknown) Enoxaparin 40 mg subcu every 24 hours. (unknown) (no (unknown) (unknown) 6. Hypertension, (units (unknown) date) chronic. Continue unknown) patient's regular medication of amlodipine 5 (unknown) (no (unknown) (unknown) 7. Clear fluid (units (unknown) date) diet and IV fluids unknown) for now until nausea vomiting is consistently (unknown) (no (unknown) (unknown) 8. Code status: (units (unknown) date) Presumed to be unknown) full code until told otherwise by the patient. (unknown) (no (unknown) (unknown) ALT 35 H (units (unkno wn) date) unknown) (unknown) (no (unknown) (unknown) ALT (units (unkno wn) date) unknown) (unknown) (no (unknown) (unknown) AST 36 (units (unkno wn) date) unknown) (unknown) (no (unknown) (unknown) AST (units (unkno wn) date) unknown) (unknown) (no (unknown) (unknown) Abd: soft, (units (unk nown) date) epigastric unknown) tenderness, normal bowel sounds (unknown) (no (unknown) (unknown) Abscess (units (unkno wn) date) unknown) (unknown) (no (unknown) (unknown) Admit to (units (unkno wn) date) inpatient since unknown) greater than 2 in night is expected with the patient's (unknown) (no (unknown) (unknown) Age/Sex: 46 / F (units (unknown) date) unknown) (unknown) (no (unknown) (unknown) Albumin 5.6 H (units ( unknown) date) unknown) (unknown) (no (unknown) (unknown) Albumin (units (unkno wn) date) unknown) (unknown) (no (unknown) (unknown) Albumin/Globulin (units (unknown) date) Ratio 1.1 unknown) (unknown) (no (unknown) (unknown) Albumin/Globulin (units (unknown) date) Ratio unknown) (unknown) (no (unknown) (unknown) Alkaline (units (unkno wn) date) Phosphatase 96 unknown) (unknown) (no (unknown) (unknown) Alkaline (units (unkno wn) date) Phosphatase unknown) (unknown) (no (unknown) (unknown) Assessment + Plan (units (unknown) date) narrative: unknown) (unknown) (no (unknown) (unknown) Assessment + Plan (units (unknown) date) unknown) (unknown) (no (unknown) (unknown) BUN 31 H (units (unkno wn) date) unknown) (unknown) (no (unknown) (unknown) BUN (units (unkno wn) date) unknown) (unknown) (no (unknown) (unknown) BUN/Creatinine (units (unknown) date) Ratio 18.0 unknown) (unknown) (no (unknown) (unknown) BUN/Creatinine (units (unknown) date) Ratio unknown) (unknown) (no (unknown) (unknown) Baso # (Auto) 0 (units (unknown) date) unknown) (unknown) (no (unknown) (unknown) Baso # (Auto) (units ( unknown) date) unknown) (unknown) (no (unknown) (unknown) Baso % (Auto) 0.5 (units (unknown) date) unknown) (unknown) (no (unknown) (unknown) Baso % (Auto) (units ( unknown) date) unknown) (unknown) (no (unknown) (unknown) Blood Pressure (units (unknown) date) 125/75 144/95 H unknown) 112/75 (unknown) (no (unknown) (unknown) CV: RRR, no (units (un known) date) murmur or rubs unknown) (unknown) (no (unknown) (unknown) Calcium 10.4 H (units (unknown) date) unknown) (unknown) (no (unknown) (unknown) Calcium (units (unkno wn) date) unknown) (unknown) (no (unknown) (unknown) Carbon Dioxide 32 (units (unknown) date) unknown) (unknown) (no (unknown) (unknown) Carbon Dioxide (units (unknown) date) unknown) (unknown) (no (unknown) (unknown) Chloride 82 L (units ( unknown) date) unknown) (unknown) (no (unknown) (unknown) Chloride (units (unkno wn) date) unknown) (unknown) (no (unknown) (unknown) Chronic abdominal (units (unknown) date) pain unknown) (unknown) (no (unknown) (unknown) Creatinine 1.72 H (units (unknown) date) unknown) (unknown) (no (unknown) (unknown) Creatinine (units (unk nown) date) unknown) (unknown) (no (unknown) (unknown) Critical Care (units ( unknown) date) time: unknown) (unknown) (no (unknown) (unknown) Cyclic vomiting (units (unknown) date) syndrome unknown) (unknown) (no (unknown) (unknown) : 1975 (units (unknown) date) Acct:[id number] unknown) (unknown) (no (unknown) (unknown) Date of Service: (units (unknown) date) 04/13/22 unknown) (unknown) (no (unknown) (unknown) Daughter (units (unkno wn) date) Angio-edema unknown) (unknown) (no (unknown) (unknown) Deep Vein (units (unkn own) date) Thrombosis/Pulmona unknown) ry Embolism Present on Admission: No (unknown) (no (unknown) (unknown) Eos # (Auto) 0 (units (unknown) date) unknown) (unknown) (no (unknown) (unknown) Eos # (Auto) (units (u nknown) date) unknown) (unknown) (no (unknown) (unknown) Eos % (Auto) 0.1 (units (unknown) date) L unknown) (unknown) (no (unknown) (unknown) Eos % (Auto) (units (u nknown) date) unknown) (unknown) (no (unknown) (unknown) Estimated GFR 36 (units (unknown) date) L unknown) (unknown) (no (unknown) (unknown) Estimated GFR (units ( unknown) date) unknown) (unknown) (no (unknown) (unknown) Ethyl Alcohol < (units (unknown) date) 10 unknown) (unknown) (no (unknown) (unknown) Ethyl Alcohol (units ( unknown) date) unknown) (unknown) (no (unknown) (unknown) Exam Narrative: (units (unknown) date) unknown) (unknown) (no (unknown) (unknown) Exam (units (unkno wn) date) unknown) (unknown) (no (unknown) (unknown) Extremities: (units (u nknown) date) moves all 4 unknown) extremities, is ambulatory, negative Eun?s sign (unknown) (no (unknown) (unknown) Family History (units (unknown) date) (Reviewed 04/13/22 unknown) @ 09:52 by Mine Harrington DO) (unknown) (no (unknown) (unknown) Family history of (units (unknown) date) angioedema unknown) (unknown) (no (unknown) (unknown) Father (units (unkno wn) date) Hypertension unknown) (unknown) (no (unknown) (unknown) Gen: Alert, (units (un known) date) oriented, thin 46 unknown) y.o. , very lethargic (unknown) (no (unknown) (unknown) Globulin 4.9 H (units (unknown) date) unknown) (unknown) (no (unknown) (unknown) Globulin (units (unkno wn) date) unknown) (unknown) (no (unknown) (unknown) Glucose 134 H (units ( unknown) date) unknown) (unknown) (no (unknown) (unknown) Glucose (units (unkno wn) date) unknown) (unknown) (no (unknown) (unknown) HEENT: (units (unkno wn) date) normocephalic, unknown) atraumatic, conjunctiva clear, sclera non-icteric, oral (unknown) (no (unknown) (unknown) Hct 44.2 (units (unkno wn) date) unknown) (unknown) (no (unknown) (unknown) Hct (units (unkno wn) date) unknown) (unknown) (no (unknown) (unknown) Hgb 15.4 (units (unkno wn) date) unknown) (unknown) (no (unknown) (unknown) Hgb (units (unkno wn) date) unknown) (unknown) (no (unknown) (unknown) Hx of (units (unkno wn) date) appendectomy unknown) (unknown) (no (unknown) (unknown) Hx of (units (unkno wn) date) cholecystectomy unknown) (unknown) (no (unknown) (unknown) I spent a total (units (unknown) date) of [] minutes of unknown) critical care time on this patient's care (unknown) (no (unknown) (unknown) [facility] (units (unknown) date) [address] [place] [address] unknown) [place] [address] (unknown) (no (unknown) (unknown) Ketones 0.20 (units (u nknown) date) unknown) (unknown) (no (unknown) (unknown) Ketones (units (unkno wn) date) unknown) (unknown) (no (unknown) (unknown) Laboratory (units (unk nown) date) Results - last 24 unknown) hr (unknown) (no (unknown) (unknown) Labs (units (unkno wn) date) unknown) (unknown) (no (unknown) (unknown) Labs: (units (unkno wn) date) unknown) (unknown) (no (unknown) (unknown) Lactate 3.0 H 1.3 (units (unknown) date) unknown) (unknown) (no (unknown) (unknown) Lactate 9.7 H* (units (unknown) date) unknown) (unknown) (no (unknown) (unknown) Lactate (units (unkno wn) date) unknown) (unknown) (no (unknown) (unknown) Lipase 96 (units (unkn own) date) unknown) (unknown) (no (unknown) (unknown) Lipase (units (unkno wn) date) unknown) (unknown) (no (unknown) (unknown) Lymph # (Auto) (units (unknown) date) 1300 unknown) (unknown) (no (unknown) (unknown) Lymph # (Auto) (units (unknown) date) unknown) (unknown) (no (unknown) (unknown) Lymph % (Auto) (units (unknown) date) 20.9 L unknown) (unknown) (no (unknown) (unknown) Lymph % (Auto) (units (unknown) date) unknown) (unknown) (no (unknown) (unknown) MCH 32.4 (units (unkno wn) date) unknown) (unknown) (no (unknown) (unknown) MCH (units (unkno wn) date) unknown) (unknown) (no (unknown) (unknown) MCHC 35.0 (units (unkn own) date) unknown) (unknown) (no (unknown) (unknown) MCHC (units (unkno wn) date) unknown) (unknown) (no (unknown) (unknown) MCV 92.6 (units (unkno wn) date) unknown) (unknown) (no (unknown) (unknown) MCV (units (unkno wn) date) unknown) (unknown) (no (unknown) (unknown) 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 (unknown) (no (unknown) (unknown) Marijuana use, (units (unknown) date) continuous unknown) (unknown) (no (unknown) (unknown) Medical History (units (unknown) date) (Reviewed 04/13/22 unknown) @ 09:52 by Mine Harrington DO) (unknown) (no (unknown) (unknown) Centre # (Auto) 500 (units (unknown) date) unknown) (unknown) (no (unknown) (unknown) Centre # (Auto) (units ( unknown) date) unknown) (unknown) (no (unknown) (unknown) Centre % (Auto) 8.7 (units (unknown) date) unknown) (unknown) (no (unknown) (unknown) Centre % (Auto) (units ( unknown) date) unknown) (unknown) (no (unknown) (unknown) Mother Diabetes (units (unknown) date) mellitus unknown) (unknown) (no (unknown) (unknown) Narrative (units (unkn own) date) unknown) (unknown) (no (unknown) (unknown) Neck: supple, (units ( unknown) date) full ROM, no JVD, unknown) trachea is midline (unknown) (no (unknown) (unknown) Neuro: Unable to (units (unknown) date) stay awake while unknown) speaking (unknown) (no (unknown) (unknown) Neut # (Auto) (units ( unknown) date) 4300 unknown) (unknown) (no (unknown) (unknown) Neut # (Auto) (units ( unknown) date) unknown) (unknown) (no (unknown) (unknown) Neut % (Auto) (units ( unknown) date) 69.8 unknown) (unknown) (no (unknown) (unknown) Neut % (Auto) (units ( unknown) date) unknown) (unknown) (no (unknown) (unknown) Not in the mood (units (unknown) date) to discuss at this unknown) time. (unknown) (no (unknown) (unknown) Objective (units (unkn own) date) unknown) (unknown) (no (unknown) (unknown) Other Colon (units (un known) date) cancer unknown) (unknown) (no (unknown) (unknown) Oxygen Delivery (units (unknown) date) Method Room Air unknown) (unknown) (no (unknown) (unknown) Oxygen Flow Rate (units (unknown) date) 0 unknown) (unknown) (no (unknown) (unknown) PFSH (units (unkno wn) date) unknown) (unknown) (no (unknown) (unknown) Pancreatitis (units (u nknown) date) unknown) (unknown) (no (unknown) (unknown) Patient: (units (unkno wn) date) Dameon Castro MR#: unknown) [id number] (unknown) (no (unknown) (unknown) Plt Count 284 (units ( unknown) date) unknown) (unknown) (no (unknown) (unknown) Plt Count (units (unkn own) date) unknown) (unknown) (no (unknown) (unknown) Potassium 2.7 L* (units (unknown) date) unknown) (unknown) (no (unknown) (unknown) Potassium (units (unkn own) date) unknown) (unknown) (no (unknown) (unknown) Progress Note (units ( unknown) date) unknown) (unknown) (no (unknown) (unknown) Provider: (units (unkn own) date) Irving Lakhani unknown) D.O. (unknown) (no (unknown) (unknown) Psyche: mildly (units (unknown) date) agitated when unknown) awakened. Patient's main focus is complaining (unknown) (no (unknown) (unknown) Pulse Oximetry 96 (units (unknown) date) 100 99 unknown) (unknown) (no (unknown) (unknown) Pulse Rate 74 60 (units (unknown) date) 72 unknown) (unknown) (no (unknown) (unknown) Quality (units (unkno wn) date) unknown) (unknown) (no (unknown) (unknown) RBC 4.77 (units (unkno wn) date) unknown) (unknown) (no (unknown) (unknown) RBC (units (unkno wn) date) unknown) (unknown) (no (unknown) (unknown) RDW 13.8 (units (unkno wn) date) unknown) (unknown) (no (unknown) (unknown) RDW (units (unkno wn) date) unknown) (unknown) (no (unknown) (unknown) Resp: Lungs CTA, (units (unknown) date) non-labored unknown) breathing (unknown) (no (unknown) (unknown) Respiratory Rate (units (unknown) date) 22 18 17 unknown) (unknown) (no (unknown) (unknown) Result Diagrams: (units (unknown) date) unknown) (unknown) (no (unknown) (unknown) SARS-CoV-2 (PCR) (units (unknown) date) Negative unknown) (unknown) (no (unknown) (unknown) SARS-CoV-2 (PCR) (units (unknown) date) unknown) (unknown) (no (unknown) (unknown) Signed By: (units (unk nown) date) unknown) (unknown) (no (unknown) (unknown) Skin: no lesions (units (unknown) date) or rashes, dry and unknown) intact (unknown) (no (unknown) (unknown) Smoking Status: (units (unknown) date) Current every day unknown) smoker (unknown) (no (unknown) (unknown) Social History (units (unknown) date) (Reviewed 04/13/22 unknown) @ 09:52 by Mine Harrington DO) (unknown) (no (unknown) (unknown) Sodium 138 (units (unk nown) date) unknown) (unknown) (no (unknown) (unknown) Sodium (units (unkno wn) date) unknown) (unknown) (no (unknown) (unknown) Substitute (units (unk nown) date) decision maker has unknown) not been given. Need to continue to request this (unknown) (no (unknown) (unknown) Surgical History (units (unknown) date) (Reviewed 04/13/22 unknown) @ 09:52 by Mine Harrington DO) (unknown) (no (unknown) (unknown) Temperature 97.8 (units (unknown) date) F 98.2 F 98.4 F unknown) (unknown) (no (unknown) (unknown) Time Spent With (units (unknown) date) Patient unknown) (unknown) (no (unknown) (unknown) Total Bilirubin (units (unknown) date) 1.4 H unknown) (unknown) (no (unknown) (unknown) Total Bilirubin (units (unknown) date) unknown) (unknown) (no (unknown) (unknown) Total Protein (units ( unknown) date) 10.5 H unknown) (unknown) (no (unknown) (unknown) Total Protein (units ( unknown) date) unknown) (unknown) (no (unknown) (unknown) VBG Base Excess (units (unknown) date) 22.0 H unknown) (unknown) (no (unknown) (unknown) VBG Base Excess (units (unknown) date) unknown) (unknown) (no (unknown) (unknown) VBG HCO3 43 H (units ( unknown) date) unknown) (unknown) (no (unknown) (unknown) VBG HCO3 (units (unkno wn) date) unknown) (unknown) (no (unknown) (unknown) VBG O2 Saturation (units (unknown) date) 97 H unknown) (unknown) (no (unknown) (unknown) VBG O2 Saturation (units (unknown) date) unknown) (unknown) (no (unknown) (unknown) VBG Total CO2 44 (units (unknown) date) H unknown) (unknown) (no (unknown) (unknown) VBG Total CO2 (units ( unknown) date) unknown) (unknown) (no (unknown) (unknown) VBG pCO2 40.7 L (units (unknown) date) unknown) (unknown) (no (unknown) (unknown) VBG pCO2 (units (unkno wn) date) unknown) (unknown) (no (unknown) (unknown) VBG pH 7.63 H (units ( unknown) date) unknown) (unknown) (no (unknown) (unknown) VBG pH (units (unkno wn) date) unknown) (unknown) (no (unknown) (unknown) VBG pO2 79 H (units (u nknown) date) unknown) (unknown) (no (unknown) (unknown) VBG pO2 (units (unkno wn) date) unknown) (unknown) (no (unknown) (unknown) VTE (units (unkno wn) date) unknown) (unknown) (no (unknown) (unknown) Vital Signs (units (un known) date) unknown) (unknown) (no (unknown) (unknown) WBC 6.2 (units (unkno wn) date) unknown) (unknown) (no (unknown) (unknown) WBC (units (unkno wn) date) unknown) (unknown) (no (unknown) (unknown) [Embedded Image (units (unknown) date) Not Available] unknown) (unknown) (no (unknown) (unknown) about her (units (unkn own) date) abdominal pain. unknown) (unknown) (no (unknown) (unknown) alcohol intake: (units (unknown) date) current unknown) (unknown) (no (unknown) (unknown) and 40 mg q.12h. (units (unknown) date) Concern for unknown) gastritis. (unknown) (no (unknown) (unknown) chronic (units (unkno wn) date) underlying unknown) anxiety/depression . (unknown) (no (unknown) (unknown) from the patient. (units (unknown) date) unknown) (unknown) (no (unknown) (unknown) household (units (unkn own) date) members: spouse unknown) (unknown) (no (unknown) (unknown) labs this evening (units (unknown) date) and determine unknown) further placement is necessary. (unknown) (no (unknown) (unknown) lorazepam and as (units (unknown) date) needed. Can unknown) continue does of bupropion 100 mg daily for (unknown) (no (unknown) (unknown) mg daily. (units (unkn own) date) unknown) (unknown) (no (unknown) (unknown) mucosa pink and (units (unknown) date) moist unknown) (unknown) (no (unknown) (unknown) settled. (units (unkno wn) date) unknown) (unknown) (no (unknown) (unknown) stay and due to (units (unknown) date) risk for increased unknown) severity of the patient's illness. (unknown) (no (unknown) (unknown) today; this time (units (unknown) date) is exclusive of unknown) procedural time. (unknown) (no (unknown) (unknown) with Haldol IV (units (unknown) date) and unknown) diphenhydramine IV as well as scopolamine patch Result panel 84 (unknown) (no (unknown) (unknown) (no value) (units (unk nown) date) unknown) (unknown) (no (unknown) (unknown) (past 8 hours): (units (unknown) date) unknown) (unknown) (no (unknown) (unknown) 06:41 04/14/22 (units (unknown) date) unknown) (unknown) (no (unknown) (unknown) 07:00 (units (unkno wn) date) unknown) (unknown) (no (unknown) (unknown) 04/13/22 04/13/22 (units (unknown) date) 04/13/22 unknown) (unknown) (no (unknown) (unknown) 04/13/22 04/13/22 (units (unknown) date) 04/14/22 unknown) (unknown) (no (unknown) (unknown) 04/13/22 09:20 (units (unknown) date) unknown) (unknown) (no (unknown) (unknown) 04/13/22 13:02 (units (unknown) date) unknown) (unknown) (no (unknown) (unknown) 04/14/22 04/14/22 (units (unknown) date) unknown) (unknown) (no (unknown) (unknown) 04/14/22 09:45 (units (unknown) date) unknown) (unknown) (no (unknown) (unknown) 04/14/22 (units (unkno wn) date) unknown) (unknown) (no (unknown) (unknown) 09:40 09:40 09:55 (units (unknown) date) unknown) (unknown) (no (unknown) (unknown) 09:45 09:45 (units (un known) date) unknown) (unknown) (no (unknown) (unknown) 100 mg PO DAILY (units (unknown) date) Qty: 90 0RF unknown) (unknown) (no (unknown) (unknown) 11:01 11:20 12:45 (units (unknown) date) unknown) (unknown) (no (unknown) (unknown) 14:35 22:42 00:20 (units (unknown) date) unknown) (unknown) (no (unknown) (unknown) 200 mg PO WEEKLY (units (unknown) date) 28 Days Qty: 4 0RF unknown) (unknown) (no (unknown) (unknown) 25 mg PO DAILY (units (unknown) date) Qty: 90 0RF unknown) (unknown) (no (unknown) (unknown) [id number] (units (unkno wn) date) unknown) (unknown) (no (unknown) (unknown) 40 meq PO DAILY (units (unknown) date) Qty: 90 0RF unknown) (unknown) (no (unknown) (unknown) 5 mg PO DAILY Qty: (units (unknown) date) 90 0RF unknown) (unknown) (no (unknown) (unknown) A. baumannii (PCR) (units (unknown) date) Not detected unknown) (unknown) (no (unknown) (unknown) A. baumannii (PCR) (units (unknown) date) unknown) (unknown) (no (unknown) (unknown) Abscess (units (unkno wn) date) unknown) (unknown) (no (unknown) (unknown) Age/Sex: 46 / F (units (unknown) date) unknown) (unknown) (no (unknown) (unknown) Attending (units (unkn own) date) Provider: unknown) Ernestina Jara (unknown) (no (unknown) (unknown) BUN 20 H (units (unkno wn) date) unknown) (unknown) (no (unknown) (unknown) BUN (units (unkno wn) date) unknown) (unknown) (no (unknown) (unknown) BUN/Creatinine (units (unknown) date) Ratio 23.0 H unknown) (unknown) (no (unknown) (unknown) BUN/Creatinine (units (unknown) date) Ratio unknown) (unknown) (no (unknown) (unknown) Blood Pressure (units (unknown) date) 122/67 unknown) (unknown) (no (unknown) (unknown) C. glabrata (PCR) (units (unknown) date) Not detected unknown) (unknown) (no (unknown) (unknown) C. glabrata (PCR) (units (unknown) date) unknown) (unknown) (no (unknown) (unknown) C. krusei (PCR) (units (unknown) date) Not detected unknown) (unknown) (no (unknown) (unknown) C. krusei (PCR) (units (unknown) date) unknown) (unknown) (no (unknown) (unknown) C. parapsilosis (units (unknown) date) (PCR) Not detected unknown) (unknown) (no (unknown) (unknown) C. parapsilosis (units (unknown) date) (PCR) unknown) (unknown) (no (unknown) (unknown) C. tropicalis (units ( unknown) date) (PCR) Not detected unknown) (unknown) (no (unknown) (unknown) C. tropicalis (units ( unknown) date) (PCR) unknown) (unknown) (no (unknown) (unknown) Calcium 8.5 (units (un known) date) unknown) (unknown) (no (unknown) (unknown) Calcium (units (unkno wn) date) unknown) (unknown) (no (unknown) (unknown) Noreen albicans (units (unknown) date) (PCR) Not detected unknown) (unknown) (no (unknown) (unknown) Noreen albicans (units (unknown) date) (PCR) unknown) (unknown) (no (unknown) (unknown) Carbon Dioxide 33 (units (unknown) date) H unknown) (unknown) (no (unknown) (unknown) Carbon Dioxide (units (unknown) date) unknown) (unknown) (no (unknown) (unknown) Changed (units (unkno wn) date) unknown) (unknown) (no (unknown) (unknown) Chief complaint: (units (unknown) date) cyclical vomiting unknown) (unknown) (no (unknown) (unknown) Chloride 94 L (units ( unknown) date) unknown) (unknown) (no (unknown) (unknown) Chloride (units (unkno wn) date) unknown) (unknown) (no (unknown) (unknown) Chronic abdominal (units (unknown) date) pain unknown) (unknown) (no (unknown) (unknown) Continued (units (unkn own) date) unknown) (unknown) (no (unknown) (unknown) Creatinine 0.87 (units (unknown) date) unknown) (unknown) (no (unknown) (unknown) Creatinine (units (unk nown) date) unknown) (unknown) (no (unknown) (unknown) Cyclic vomiting (units (unknown) date) syndrome unknown) (unknown) (no (unknown) (unknown) : 1975 (units (unknown) date) Acct:[id number] unknown) (unknown) (no (unknown) (unknown) Date Patient Seen: (units (unknown) date) 04/14/22 unknown) (unknown) (no (unknown) (unknown) Date of Service: (units (unknown) date) 04/13/22 unknown) (unknown) (no (unknown) (unknown) Date of admission: (units (unknown) date) unknown) (unknown) (no (unknown) (unknown) Daughter (units (unkno wn) date) Angio-edema unknown) (unknown) (no (unknown) (unknown) Deep Vein (units (unkn own) date) Thrombosis/Pulmonar unknown) y Embolism Present on Admission: No (unknown) (no (unknown) (unknown) Discharge Data (units (unknown) date) unknown) (unknown) (no (unknown) (unknown) Discharge Plan (units (unknown) date) unknown) (unknown) (no (unknown) (unknown) Discharge (units (unkn own) date) Providers unknown) (unknown) (no (unknown) (unknown) Discharge Summary (units (unknown) date) unknown) (unknown) (no (unknown) (unknown) Discharge orders + (units (unknown) date) Medications unknown) (unknown) (no (unknown) (unknown) Discharge (units (unkn own) date) provider: unknown) (unknown) (no (unknown) (unknown) E. cloacae complex (units (unknown) date) PCR Not detected unknown) (unknown) (no (unknown) (unknown) E. cloacae complex (units (unknown) date) PCR unknown) (unknown) (no (unknown) (unknown) E. coli (PCR) Not (units (unknown) date) detected unknown) (unknown) (no (unknown) (unknown) E. coli (PCR) (units ( unknown) date) unknown) (unknown) (no (unknown) (unknown) Enterobacteriac sp (units (unknown) date) PCR Not detected unknown) (unknown) (no (unknown) (unknown) Enterobacteriac sp (units (unknown) date) PCR unknown) (unknown) (no (unknown) (unknown) Enterococcus sp (units (unknown) date) PCR Not detected unknown) (unknown) (no (unknown) (unknown) Enterococcus sp (units (unknown) date) PCR unknown) (unknown) (no (unknown) (unknown) Estimated GFR > 60 (units (unknown) date) unknown) (unknown) (no (unknown) (unknown) Estimated GFR (units ( unknown) date) unknown) (unknown) (no (unknown) (unknown) Exam (units (unkno wn) date) unknown) (unknown) (no (unknown) (unknown) Family History (units (unknown) date) (Reviewed 04/13/22 unknown) @ 09:52 by Mine Harrington DO) (unknown) (no (unknown) (unknown) Family history of (units (unknown) date) angioedema unknown) (unknown) (no (unknown) (unknown) Father (units (unkno wn) date) Hypertension unknown) (unknown) (no (unknown) (unknown) Follow (units (unkno wn) date) up/Referrals: unknown) (unknown) (no (unknown) (unknown) Glucose 145 H (units ( unknown) date) unknown) (unknown) (no (unknown) (unknown) Glucose (units (unkno wn) date) unknown) (unknown) (no (unknown) (unknown) Group A Strep (units ( unknown) date) (PCR) Not detected unknown) (unknown) (no (unknown) (unknown) Group A Strep (units ( unknown) date) (PCR) unknown) (unknown) (no (unknown) (unknown) H. influenzae (units ( unknown) date) (PCR) Not detected unknown) (unknown) (no (unknown) (unknown) H. influenzae (units ( unknown) date) (PCR) unknown) (unknown) (no (unknown) (unknown) History of Present (units (unknown) date) Illness unknown) (unknown) (no (unknown) (unknown) Hx of appendectomy (units (unknown) date) unknown) (unknown) (no (unknown) (unknown) Hx of (units (unkno wn) date) cholecystectomy unknown) (unknown) (no (unknown) (unknown) [facility] (units (unknown) date) [address] unknown) [place] [address] (unknown) (no (unknown) (unknown) KPC-Carbap Res (units (unknown) date) Gene PCR Not unknown) detected (unknown) (no (unknown) (unknown) KPC-Carbap Res (units (unknown) date) Gene PCR unknown) (unknown) (no (unknown) (unknown) Sergo Martino MD (units (unknown) date) [Primary Care unknown) Provider] (unknown) (no (unknown) (unknown) Ketones 0.20 (units (u nknown) date) unknown) (unknown) (no (unknown) (unknown) Ketones (units (unkno wn) date) unknown) (unknown) (no (unknown) (unknown) Klebsiella oxytoca (units (unknown) date) PCR Not detected unknown) (unknown) (no (unknown) (unknown) Klebsiella oxytoca (units (unknown) date) PCR unknown) (unknown) (no (unknown) (unknown) Klebsiella (units (unk nown) date) pneumoniae Not unknown) detected (unknown) (no (unknown) (unknown) Klebsiella (units (unk nown) date) pneumoniae unknown) (unknown) (no (unknown) (unknown) Laboratory Results (units (unknown) date) - last 24 hr unknown) (unknown) (no (unknown) (unknown) Labs (units (unkno wn) date) unknown) (unknown) (no (unknown) (unknown) Labs: (units (unkno wn) date) unknown) (unknown) (no (unknown) (unknown) Lactate 1.3 (units (un known) date) unknown) (unknown) (no (unknown) (unknown) Lactate 3.0 H (units ( unknown) date) unknown) (unknown) (no (unknown) (unknown) Lactate 9.7 H* (units (unknown) date) unknown) (unknown) (no (unknown) (unknown) Lactate (units (unkno wn) date) unknown) (unknown) (no (unknown) (unknown) List. (units (unkno wn) date) monocytogenes PCR unknown) Not detected (unknown) (no (unknown) (unknown) List. (units (unkno wn) date) monocytogenes PCR unknown) (unknown) (no (unknown) (unknown) 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 (unknown) (no (unknown) (unknown) Magnesium 2.0 (units ( unknown) date) unknown) (unknown) (no (unknown) (unknown) Magnesium (units (unkn own) date) unknown) (unknown) (no (unknown) (unknown) Marijuana use, (units (unknown) date) continuous unknown) (unknown) (no (unknown) (unknown) Irving Lakhani, (units (unknown) date) DO unknown) (unknown) (no (unknown) (unknown) Medical History (units (unknown) date) (Reviewed 04/13/22 unknown) @ 09:52 by Mine Harrington DO) (unknown) (no (unknown) (unknown) Mother Diabetes (units (unknown) date) mellitus unknown) (unknown) (no (unknown) (unknown) N. meningitidis (units (unknown) date) (PCR) Not detected unknown) (unknown) (no (unknown) (unknown) N. meningitidis (units (unknown) date) (PCR) unknown) (unknown) (no (unknown) (unknown) New (units (unkno wn) date) unknown) (unknown) (no (unknown) (unknown) Objective (units (unkn own) date) unknown) (unknown) (no (unknown) (unknown) Other Colon cancer (units (unknown) date) unknown) (unknown) (no (unknown) (unknown) Oxygen Delivery (units (unknown) date) Method Room Air unknown) (unknown) (no (unknown) (unknown) Oxygen Flow Rate 0 (units (unknown) date) unknown) (unknown) (no (unknown) (unknown) P. aeruginosa (units ( unknown) date) (PCR) Not detected unknown) (unknown) (no (unknown) (unknown) P. aeruginosa (units ( unknown) date) (PCR) unknown) (unknown) (no (unknown) (unknown) PFSH (units (unkno wn) date) unknown) (unknown) (no (unknown) (unknown) Pancreatitis (units (u nknown) date) unknown) (unknown) (no (unknown) (unknown) Patient (units (unkno wn) date) Disposition: Home unknown) (unknown) (no (unknown) (unknown) Patient: (units (unkno wn) date) Dameon Castro MR#: unknown) M0002 (unknown) (no (unknown) (unknown) Potassium 2.8 L (units (unknown) date) unknown) (unknown) (no (unknown) (unknown) Potassium 3.2 L (units (unknown) date) unknown) (unknown) (no (unknown) (unknown) Potassium (units (unkn own) date) unknown) (unknown) (no (unknown) (unknown) Prescriptions: (units (unknown) date) unknown) (unknown) (no (unknown) (unknown) Primary Care (units (u nknown) date) Provider: unknown) Sergo Martino (unknown) (no (unknown) (unknown) Primary care (units (u nknown) date) physician: unknown) (unknown) (no (unknown) (unknown) Proteus species (units (unknown) date) (PCR) Not detected unknown) (unknown) (no (unknown) (unknown) Proteus species (units (unknown) date) (PCR) unknown) (unknown) (no (unknown) (unknown) Provider Discharge (units (unknown) date) Comment: I've unknown) increased your potassium to 40mEq which is 2 (unknown) (no (unknown) (unknown) Provider (units (unkno wn) date) unknown) (unknown) (no (unknown) (unknown) Provider: (units (unkn own) date) Irving Lakhani unknown) D.O. (unknown) (no (unknown) (unknown) Pulse Oximetry 98 (units (unknown) date) unknown) (unknown) (no (unknown) (unknown) Pulse Rate 73 (units ( unknown) date) unknown) (unknown) (no (unknown) (unknown) Quality (units (unkno wn) date) unknown) (unknown) (no (unknown) (unknown) Respiratory Rate (units (unknown) date) 17 unknown) (unknown) (no (unknown) (unknown) Result Diagrams: (units (unknown) date) unknown) (unknown) (no (unknown) (unknown) Rx Instructions: (units (unknown) date) unknown) (unknown) (no (unknown) (unknown) SARS-CoV-2 (PCR) (units (unknown) date) Negative unknown) (unknown) (no (unknown) (unknown) SARS-CoV-2 (PCR) (units (unknown) date) unknown) (unknown) (no (unknown) (unknown) Serratia (units (unkno wn) date) marcescens PCR Not unknown) detected (unknown) (no (unknown) (unknown) Serratia (units (unkno wn) date) marcescens PCR unknown) (unknown) (no (unknown) (unknown) Signed By: (units (unk nown) date) unknown) (unknown) (no (unknown) (unknown) Smoking Status: (units (unknown) date) Current every day unknown) smoker (unknown) (no (unknown) (unknown) Social History (units (unknown) date) (Reviewed 04/13/22 unknown) @ 09:52 by Mine Harrington DO) (unknown) (no (unknown) (unknown) Sodium 134 L (units (u nknown) date) unknown) (unknown) (no (unknown) (unknown) Sodium (units (unkno wn) date) unknown) (unknown) (no (unknown) (unknown) Staph aureus (PCR) (units (unknown) date) Not detected unknown) (unknown) (no (unknown) (unknown) Staph aureus (PCR) (units (unknown) date) unknown) (unknown) (no (unknown) (unknown) Staphylococcus sp (units (unknown) date) PCR Detected H unknown) (unknown) (no (unknown) (unknown) Staphylococcus sp (units (unknown) date) PCR unknown) (unknown) (no (unknown) (unknown) Strep agalactiae (units (unknown) date) (PCR) Not detected unknown) (unknown) (no (unknown) (unknown) Strep agalactiae (units (unknown) date) (PCR) unknown) (unknown) (no (unknown) (unknown) Strep pneumoniae (units (unknown) date) (PCR) Not detected unknown) (unknown) (no (unknown) (unknown) Strep pneumoniae (units (unknown) date) (PCR) unknown) (unknown) (no (unknown) (unknown) Streptococcus sp (units (unknown) date) PCR Not detected unknown) (unknown) (no (unknown) (unknown) Streptococcus sp (units (unknown) date) PCR unknown) (unknown) (no (unknown) (unknown) Surgical History (units (unknown) date) (Reviewed 04/13/22 unknown) @ 09:52 by Mine Harrington DO) (unknown) (no (unknown) (unknown) Temperature 98.1 F (units (unknown) date) unknown) (unknown) (no (unknown) (unknown) Time Patient Seen: (units (unknown) date) 10:30 unknown) (unknown) (no (unknown) (unknown) U Benzodiazepines (units (unknown) date) Scrn Negative unknown) (unknown) (no (unknown) (unknown) U Benzodiazepines (units (unknown) date) Scrn unknown) (unknown) (no (unknown) (unknown) U Marijuana (THC) (units (unknown) date) Screen TNP unknown) (unknown) (no (unknown) (unknown) U Marijuana (THC) (units (unknown) date) Screen unknown) (unknown) (no (unknown) (unknown) U Methamphetamines (units (unknown) date) Scrn Negative unknown) (unknown) (no (unknown) (unknown) U Methamphetamines (units (unknown) date) Scrn unknown) (unknown) (no (unknown) (unknown) U Opiates 300ng/mL (units (unknown) date) cut Negative unknown) (unknown) (no (unknown) (unknown) U Opiates 300ng/mL (units (unknown) date) cut unknown) (unknown) (no (unknown) (unknown) U Tricyclic (units (un known) date) Antidepress unknown) Negative (unknown) (no (unknown) (unknown) U Tricyclic (units (un known) date) Antidepress unknown) (unknown) (no (unknown) (unknown) Ur Amphetamines (units (unknown) date) Screen Negative unknown) (unknown) (no (unknown) (unknown) Ur Amphetamines (units (unknown) date) Screen unknown) (unknown) (no (unknown) (unknown) Ur Barbiturates (units (unknown) date) Screen Negative unknown) (unknown) (no (unknown) (unknown) Ur Barbiturates (units (unknown) date) Screen unknown) (unknown) (no (unknown) (unknown) Ur MDMA Scrn (units (u nknown) date) (Ecstasy) Negative unknown) (unknown) (no (unknown) (unknown) Ur MDMA Scrn (units (u nknown) date) (Ecstasy) unknown) (unknown) (no (unknown) (unknown) Ur Oxycodone (units (u nknown) date) Screen Negative unknown) (unknown) (no (unknown) (unknown) Ur Oxycodone (units (u nknown) date) Screen unknown) (unknown) (no (unknown) (unknown) Ur Phencyclidine (units (unknown) date) Scrn Negative unknown) (unknown) (no (unknown) (unknown) Ur Phencyclidine (units (unknown) date) Scrn unknown) (unknown) (no (unknown) (unknown) Urine Cocaine (units ( unknown) date) Screen Positive H unknown) (unknown) (no (unknown) (unknown) Urine Cocaine (units ( unknown) date) Screen unknown) (unknown) (no (unknown) (unknown) Urine Methadone (units (unknown) date) Screen Negative unknown) (unknown) (no (unknown) (unknown) Urine Methadone (units (unknown) date) Screen unknown) (unknown) (no (unknown) (unknown) VBG Base Excess (units (unknown) date) 22.0 H unknown) (unknown) (no (unknown) (unknown) VBG Base Excess (units (unknown) date) unknown) (unknown) (no (unknown) (unknown) VBG HCO3 43 H (units ( unknown) date) unknown) (unknown) (no (unknown) (unknown) VBG HCO3 (units (unkno wn) date) unknown) (unknown) (no (unknown) (unknown) VBG O2 Saturation (units (unknown) date) 97 H unknown) (unknown) (no (unknown) (unknown) VBG O2 Saturation (units (unknown) date) unknown) (unknown) (no (unknown) (unknown) VBG Total CO2 44 H (units (unknown) date) unknown) (unknown) (no (unknown) (unknown) VBG Total CO2 (units ( unknown) date) unknown) (unknown) (no (unknown) (unknown) VBG pCO2 40.7 L (units (unknown) date) unknown) (unknown) (no (unknown) (unknown) VBG pCO2 (units (unkno wn) date) unknown) (unknown) (no (unknown) (unknown) VBG pH 7.63 H (units ( unknown) date) unknown) (unknown) (no (unknown) (unknown) VBG pH (units (unkno wn) date) unknown) (unknown) (no (unknown) (unknown) VBG pO2 79 H (units (u nknown) date) unknown) (unknown) (no (unknown) (unknown) VBG pO2 (units (unkno wn) date) unknown) (unknown) (no (unknown) (unknown) VTE (units (unkno wn) date) unknown) (unknown) (no (unknown) (unknown) Aly/B-Vanco Res (units (unknown) date) Genes Not detected unknown) (unknown) (no (unknown) (unknown) Aly/B-Vanco Res (units (unknown) date) Genes unknown) (unknown) (no (unknown) (unknown) Vital Signs (units (un known) date) unknown) (unknown) (no (unknown) (unknown) Sergo Martino MD (units (unknown) date) unknown) (unknown) (no (unknown) (unknown) [Embedded Image (units (unknown) date) Not Available] unknown) (unknown) (no (unknown) (unknown) alcohol intake: (units (unknown) date) current unknown) (unknown) (no (unknown) (unknown) amlodipine 5 mg (units (unknown) date) tablet unknown) (unknown) (no (unknown) (unknown) bupropion HCl 100 (units (unknown) date) mg tablet unknown) sustained-release 12 hr (unknown) (no (unknown) (unknown) fluconazole 200 mg (units (unknown) date) tablet unknown) (unknown) (no (unknown) (unknown) household members: (units (unknown) date) spouse unknown) (unknown) (no (unknown) (unknown) mecA-Methicil Res (units (unknown) date) Gene Not detected unknown) (unknown) (no (unknown) (unknown) mecA-Methicil Res (units (unknown) date) Gene unknown) (unknown) (no (unknown) (unknown) pills per day now. (units (unknown) date) unknown) (unknown) (no (unknown) (unknown) potassium chloride (units (unknown) date) 20 mEq tablet unknown) extended release (unknown) (no (unknown) (unknown) spironolactone 25 (units (unknown) date) mg tablet unknown) (unknown) (no (unknown) (unknown) take 1 tablet once (units (unknown) date) weekly until rash unknown) resolves up to 4 weeks Result panel 85 (unknown) (no (unknown) (unknown) (no value) (units (unk nown) date) unknown) (unknown) (no (unknown) (unknown) (past 8 hours): (units (unknown) date) unknown) (unknown) (no (unknown) (unknown) 06:41 04/14/22 (units (unknown) date) unknown) (unknown) (no (unknown) (unknown) 07:00 (units (unkno wn) date) unknown) (unknown) (no (unknown) (unknown) 04/13/22 04/13/22 (units (unknown) date) 04/13/22 unknown) (unknown) (no (unknown) (unknown) 04/13/22 04/13/22 (units (unknown) date) 04/14/22 unknown) (unknown) (no (unknown) (unknown) 04/13/22 09:20 (units (unknown) date) unknown) (unknown) (no (unknown) (unknown) 04/13/22 13:02 (units (unknown) date) unknown) (unknown) (no (unknown) (unknown) 04/14/22 04/14/22 (units (unknown) date) unknown) (unknown) (no (unknown) (unknown) 04/14/22 09:45 (units (unknown) date) unknown) (unknown) (no (unknown) (unknown) 04/14/22 1042 (units ( unknown) date) unknown) (unknown) (no (unknown) (unknown) 04/14/22 (units (unkno wn) date) unknown) (unknown) (no (unknown) (unknown) 09:40 09:40 09:55 (units (unknown) date) unknown) (unknown) (no (unknown) (unknown) 09:45 09:45 (units (un known) date) unknown) (unknown) (no (unknown) (unknown) 1. Epigastric (units ( unknown) date) pain.? Improved unknown) with resolution of NV. (unknown) (no (unknown) (unknown) 100 mg PO DAILY (units (unknown) date) Qty: 90 0RF unknown) (unknown) (no (unknown) (unknown) 11:01 11:20 12:45 (units (unknown) date) unknown) (unknown) (no (unknown) (unknown) 14:35 22:42 00:20 (units (unknown) date) unknown) (unknown) (no (unknown) (unknown) 2 visits of her (units (unknown) date) tongue.? Patient unknown) states she was told that this is from her COVID (unknown) (no (unknown) (unknown) 2. Persistent (units ( unknown) date) vomiting likely unknown) secondary to THC as has been in the past.? Treat (unknown) (no (unknown) (unknown) 200 mg PO WEEKLY (units (unknown) date) 28 Days Qty: 4 0RF unknown) (unknown) (no (unknown) (unknown) 25 mg PO DAILY (units (unknown) date) Qty: 90 0RF unknown) (unknown) (no (unknown) (unknown) [id number] (units (unkno wn) date) unknown) (unknown) (no (unknown) (unknown) 3. Hypokalemia.? (units (unknown) date) Replacement unknown) initiated in the emergency room.? Continue.? (unknown) (no (unknown) (unknown) 4. Anxiety, (units (un known) date) chronic and acute unknown) on chronic.? Treat as needed.? Will provide (unknown) (no (unknown) (unknown) 40 meq PO DAILY (units (unknown) date) Qty: 90 0RF unknown) (unknown) (no (unknown) (unknown) 5 mg PO DAILY (units ( unknown) date) unknown) (unknown) (no (unknown) (unknown) 5. DVT (units (unkno wn) date) prophylaxis.? unknown) Enoxaparin 40 mg subcu every 24 hours. (unknown) (no (unknown) (unknown) 6. Hypertension, (units (unknown) date) chronic.? Change unknown) amlodipine to aldactone due to persistent (unknown) (no (unknown) (unknown) A. baumannii (PCR) (units (unknown) date) Not detected unknown) (unknown) (no (unknown) (unknown) A. baumannii (PCR) (units (unknown) date) unknown) (unknown) (no (unknown) (unknown) Abd: soft, (units (unk nown) date) epigastric unknown) tenderness, normal bowel sounds (unknown) (no (unknown) (unknown) Abscess (units (unkno wn) date) unknown) (unknown) (no (unknown) (unknown) Admitted for (units (u nknown) date) hyperemesis and low unknown) K. Potassium replaced and improved to 3.2. NV (unknown) (no (unknown) (unknown) Age/Sex: 46 / F (units (unknown) date) unknown) (unknown) (no (unknown) (unknown) Attending (units (unkn own) date) Provider: unknown) Ernestina Jara (unknown) (no (unknown) (unknown) BUN 20 H (units (unkno wn) date) unknown) (unknown) (no (unknown) (unknown) BUN (units (unkno wn) date) unknown) (unknown) (no (unknown) (unknown) BUN/Creatinine (units (unknown) date) Ratio 23.0 H unknown) (unknown) (no (unknown) (unknown) BUN/Creatinine (units (unknown) date) Ratio unknown) (unknown) (no (unknown) (unknown) Blood Pressure (units (unknown) date) 122/67 unknown) (unknown) (no (unknown) (unknown) C. glabrata (PCR) (units (unknown) date) Not detected unknown) (unknown) (no (unknown) (unknown) C. glabrata (PCR) (units (unknown) date) unknown) (unknown) (no (unknown) (unknown) C. krusei (PCR) (units (unknown) date) Not detected unknown) (unknown) (no (unknown) (unknown) C. krusei (PCR) (units (unknown) date) unknown) (unknown) (no (unknown) (unknown) C. parapsilosis (units (unknown) date) (PCR) Not detected unknown) (unknown) (no (unknown) (unknown) C. parapsilosis (units (unknown) date) (PCR) unknown) (unknown) (no (unknown) (unknown) C. tropicalis (units ( unknown) date) (PCR) Not detected unknown) (unknown) (no (unknown) (unknown) C. tropicalis (units ( unknown) date) (PCR) unknown) (unknown) (no (unknown) (unknown) CV: RRR, no murmur (units (unknown) date) or rubs unknown) (unknown) (no (unknown) (unknown) Calcium 8.5 (units (un known) date) unknown) (unknown) (no (unknown) (unknown) Calcium (units (unkno wn) date) unknown) (unknown) (no (unknown) (unknown) Noreen albicans (units (unknown) date) (PCR) Not detected unknown) (unknown) (no (unknown) (unknown) Noreen albicans (units (unknown) date) (PCR) unknown) (unknown) (no (unknown) (unknown) Carbon Dioxide 33 (units (unknown) date) H unknown) (unknown) (no (unknown) (unknown) Carbon Dioxide (units (unknown) date) unknown) (unknown) (no (unknown) (unknown) Changed (units (unkno wn) date) unknown) (unknown) (no (unknown) (unknown) Chief complaint: (units (unknown) date) cyclical vomiting unknown) (unknown) (no (unknown) (unknown) Chloride 94 L (units ( unknown) date) unknown) (unknown) (no (unknown) (unknown) Chloride (units (unkno wn) date) unknown) (unknown) (no (unknown) (unknown) Chronic abdominal (units (unknown) date) pain unknown) (unknown) (no (unknown) (unknown) Continued (units (unkn own) date) unknown) (unknown) (no (unknown) (unknown) Creatinine 0.87 (units (unknown) date) unknown) (unknown) (no (unknown) (unknown) Creatinine (units (unk nown) date) unknown) (unknown) (no (unknown) (unknown) Cyclic vomiting (units (unknown) date) syndrome unknown) (unknown) (no (unknown) (unknown) : 1975 (units (unknown) date) Acct:[id number] unknown) (unknown) (no (unknown) (unknown) Date Patient Seen: (units (unknown) date) 04/14/22 unknown) (unknown) (no (unknown) (unknown) Date of Service: (units (unknown) date) 04/13/22 unknown) (unknown) (no (unknown) (unknown) Date of admission: (units (unknown) date) unknown) (unknown) (no (unknown) (unknown) Daughter (units (unkno wn) date) Angio-edema unknown) (unknown) (no (unknown) (unknown) Deep Vein (units (unkn own) date) Thrombosis/Pulmonar unknown) y Embolism Present on Admission: No (unknown) (no (unknown) (unknown) Discharge Data (units (unknown) date) unknown) (unknown) (no (unknown) (unknown) Discharge Date: (units (unknown) date) 04/14/22 unknown) (unknown) (no (unknown) (unknown) Discharge (units (unkn own) date) Diagnosis: unknown) (unknown) (no (unknown) (unknown) Discharge Plan (units (unknown) date) unknown) (unknown) (no (unknown) (unknown) Discharge (units (unkn own) date) Providers unknown) (unknown) (no (unknown) (unknown) Discharge Summary (units (unknown) date) unknown) (unknown) (no (unknown) (unknown) Discharge orders + (units (unknown) date) Medications unknown) (unknown) (no (unknown) (unknown) Discharge (units (unkn own) date) provider: unknown) (unknown) (no (unknown) (unknown) Discontinued (units (u nknown) date) unknown) (unknown) (no (unknown) (unknown) E. cloacae complex (units (unknown) date) PCR Not detected unknown) (unknown) (no (unknown) (unknown) E. cloacae complex (units (unknown) date) PCR unknown) (unknown) (no (unknown) (unknown) E. coli (PCR) Not (units (unknown) date) detected unknown) (unknown) (no (unknown) (unknown) E. coli (PCR) (units ( unknown) date) unknown) (unknown) (no (unknown) (unknown) Enterobacteriac sp (units (unknown) date) PCR Not detected unknown) (unknown) (no (unknown) (unknown) Enterobacteriac sp (units (unknown) date) PCR unknown) (unknown) (no (unknown) (unknown) Enterococcus sp (units (unknown) date) PCR Not detected unknown) (unknown) (no (unknown) (unknown) Enterococcus sp (units (unknown) date) PCR unknown) (unknown) (no (unknown) (unknown) Estimated GFR > 60 (units (unknown) date) unknown) (unknown) (no (unknown) (unknown) Estimated GFR (units ( unknown) date) unknown) (unknown) (no (unknown) (unknown) Exam Narrative: (units (unknown) date) unknown) (unknown) (no (unknown) (unknown) Exam (units (unkno wn) date) unknown) (unknown) (no (unknown) (unknown) Extremities: moves (units (unknown) date) all 4 extremities, unknown) is ambulatory, negative Eun?s sign (unknown) (no (unknown) (unknown) Family History (units (unknown) date) (Reviewed 04/13/22 unknown) @ 09:52 by Mine Harrington DO) (unknown) (no (unknown) (unknown) Family history of (units (unknown) date) angioedema unknown) (unknown) (no (unknown) (unknown) Father (units (unkno wn) date) Hypertension unknown) (unknown) (no (unknown) (unknown) Follow (units (unkno wn) date) up/Referrals: unknown) (unknown) (no (unknown) (unknown) Gen: Alert, (units (un known) date) oriented, thin 46 unknown) y.o. (unknown) (no (unknown) (unknown) Glucose 145 H (units ( unknown) date) unknown) (unknown) (no (unknown) (unknown) Glucose (units (unkno wn) date) unknown) (unknown) (no (unknown) (unknown) Group A Strep (units ( unknown) date) (PCR) Not detected unknown) (unknown) (no (unknown) (unknown) Group A Strep (units ( unknown) date) (PCR) unknown) (unknown) (no (unknown) (unknown) H. influenzae (units ( unknown) date) (PCR) Not detected unknown) (unknown) (no (unknown) (unknown) H. influenzae (units ( unknown) date) (PCR) unknown) (unknown) (no (unknown) (unknown) HEENT: (units (unkno wn) date) normocephalic, unknown) atraumatic, conjunctiva clear, sclera non-icteric, oral (unknown) (no (unknown) (unknown) History of Present (units (unknown) date) Illness unknown) (unknown) (no (unknown) (unknown) Hospital Course (units (unknown) date) unknown) (unknown) (no (unknown) (unknown) Hospital Course: (units (unknown) date) unknown) (unknown) (no (unknown) (unknown) Hx of appendectomy (units (unknown) date) unknown) (unknown) (no (unknown) (unknown) Hx of (units (unkno wn) date) cholecystectomy unknown) (unknown) (no (unknown) (unknown) Increased home K (units (unknown) date) supplement to 40 unknown) daily and put patient on spironolactone in (unknown) (no (unknown) (unknown) [facility] (units (unknown) date) [address] unknown) [place] [address] (unknown) (no (unknown) (unknown) KPC-Carbap Res (units (unknown) date) Gene PCR Not unknown) detected (unknown) (no (unknown) (unknown) KPC-Carbap Res (units (unknown) date) Gene PCR unknown) (unknown) (no (unknown) (unknown) Sergo Martino MD (units (unknown) date) [Primary Care unknown) Provider] (unknown) (no (unknown) (unknown) Ketones 0.20 (units (u nknown) date) unknown) (unknown) (no (unknown) (unknown) Ketones (units (unkno wn) date) unknown) (unknown) (no (unknown) (unknown) Klebsiella oxytoca (units (unknown) date) PCR Not detected unknown) (unknown) (no (unknown) (unknown) Klebsiella oxytoca (units (unknown) date) PCR unknown) (unknown) (no (unknown) (unknown) Klebsiella (units (unk nown) date) pneumoniae Not unknown) detected (unknown) (no (unknown) (unknown) Klebsiella (units (unk nown) date) pneumoniae unknown) (unknown) (no (unknown) (unknown) Label Comments: (units (unknown) date) unknown) (unknown) (no (unknown) (unknown) Laboratory Results (units (unknown) date) - last 24 hr unknown) (unknown) (no (unknown) (unknown) Labs (units (unkno wn) date) unknown) (unknown) (no (unknown) (unknown) Labs: (units (unkno wn) date) unknown) (unknown) (no (unknown) (unknown) Lactate 1.3 (units (un known) date) unknown) (unknown) (no (unknown) (unknown) Lactate 3.0 H (units ( unknown) date) unknown) (unknown) (no (unknown) (unknown) Lactate 9.7 H* (units (unknown) date) unknown) (unknown) (no (unknown) (unknown) Lactate (units (unkno wn) date) unknown) (unknown) (no (unknown) (unknown) List. (units (unkno wn) date) monocytogenes PCR unknown) Not detected (unknown) (no (unknown) (unknown) List. (units (unkno wn) date) monocytogenes PCR unknown) (unknown) (no (unknown) (unknown) 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 (unknown) (no (unknown) (unknown) Magnesium 2.0 (units ( unknown) date) unknown) (unknown) (no (unknown) (unknown) Magnesium (units (unkn own) date) unknown) (unknown) (no (unknown) (unknown) Marijuana use, (units (unknown) date) continuous unknown) (unknown) (no (unknown) (unknown) Irving Lilia Lakhani, (units (unknown) date) DO unknown) (unknown) (no (unknown) (unknown) Medical History (units (unknown) date) (Reviewed 04/13/22 unknown) @ 09:52 by Mine Harrington DO) (unknown) (no (unknown) (unknown) Mother Diabetes (units (unknown) date) mellitus unknown) (unknown) (no (unknown) (unknown) N. meningitidis (units (unknown) date) (PCR) Not detected unknown) (unknown) (no (unknown) (unknown) N. meningitidis (units (unknown) date) (PCR) unknown) (unknown) (no (unknown) (unknown) Narrative (units (unkn own) date) unknown) (unknown) (no (unknown) (unknown) Narrative: (units (unk nown) date) unknown) (unknown) (no (unknown) (unknown) Neck: supple, full (units (unknown) date) ROM, no JVD, unknown) trachea is midline (unknown) (no (unknown) (unknown) Neuro: No focal (units (unknown) date) deficits. unknown) (unknown) (no (unknown) (unknown) New (units (unkno wn) date) unknown) (unknown) (no (unknown) (unknown) Objective (units (unkn own) date) unknown) (unknown) (no (unknown) (unknown) Other Colon cancer (units (unknown) date) unknown) (unknown) (no (unknown) (unknown) Oxygen Delivery (units (unknown) date) Method Room Air unknown) (unknown) (no (unknown) (unknown) Oxygen Flow Rate 0 (units (unknown) date) unknown) (unknown) (no (unknown) (unknown) P. aeruginosa (units ( unknown) date) (PCR) Not detected unknown) (unknown) (no (unknown) (unknown) P. aeruginosa (units ( unknown) date) (PCR) unknown) (unknown) (no (unknown) (unknown) PFSH (units (unkno wn) date) unknown) (unknown) (no (unknown) (unknown) Pancreatitis (units (u nknown) date) unknown) (unknown) (no (unknown) (unknown) Patient (units (unkno wn) date) Disposition: Home unknown) (unknown) (no (unknown) (unknown) Patient states she (units (unknown) date) is been stooling unknown) regularly with no diarrhea or constipation (unknown) (no (unknown) (unknown) Patient: (units (unkno wn) date) Dameon Castro MR#: unknown) [id number] (unknown) (no (unknown) (unknown) Phenergan (units (unkn own) date) suppository this unknown) morning which was not helpful.? Patient states no (unknown) (no (unknown) (unknown) Potassium 2.8 L (units (unknown) date) unknown) (unknown) (no (unknown) (unknown) Potassium 3.2 L (units (unknown) date) unknown) (unknown) (no (unknown) (unknown) Potassium (units (unkn own) date) unknown) (unknown) (no (unknown) (unknown) Prescriptions: (units (unknown) date) unknown) (unknown) (no (unknown) (unknown) Primary Care (units (u nknown) date) Provider: unknown) Sergo Martino (unknown) (no (unknown) (unknown) Primary care (units (u nknown) date) physician: unknown) (unknown) (no (unknown) (unknown) Proteus species (units (unknown) date) (PCR) Not detected unknown) (unknown) (no (unknown) (unknown) Proteus species (units (unknown) date) (PCR) unknown) (unknown) (no (unknown) (unknown) Provider Discharge (units (unknown) date) Comment: I've unknown) increased your potassium to 40mEq which is 2 (unknown) (no (unknown) (unknown) Provider (units (unkno wn) date) unknown) (unknown) (no (unknown) (unknown) Provider: (units (unkn own) date) Irving Lakhani unknown) D.O. (unknown) (no (unknown) (unknown) Psych: no acute (units (unknown) date) psychosis unknown) (unknown) (no (unknown) (unknown) Pulse Oximetry 98 (units (unknown) date) unknown) (unknown) (no (unknown) (unknown) Pulse Rate 73 (units ( unknown) date) unknown) (unknown) (no (unknown) (unknown) Quality (units (unkno wn) date) unknown) (unknown) (no (unknown) (unknown) Resp: Lungs CTA, (units (unknown) date) non-labored unknown) breathing (unknown) (no (unknown) (unknown) Respiratory Rate (units (unknown) date) 17 unknown) (unknown) (no (unknown) (unknown) Result Diagrams: (units (unknown) date) unknown) (unknown) (no (unknown) (unknown) Rx Instructions: (units (unknown) date) unknown) (unknown) (no (unknown) (unknown) SARS-CoV-2 (PCR) (units (unknown) date) Negative unknown) (unknown) (no (unknown) (unknown) SARS-CoV-2 (PCR) (units (unknown) date) unknown) (unknown) (no (unknown) (unknown) Serratia (units (unkno wn) date) marcescens PCR Not unknown) detected (unknown) (no (unknown) (unknown) Serratia (units (unkno wn) date) marcescens PCR unknown) (unknown) (no (unknown) (unknown) Signed (units (unkno wn) date) By:<Electronically unknown) signed by Irving Lakhani D.O.> (unknown) (no (unknown) (unknown) Skin: no lesions (units (unknown) date) or rashes, dry and unknown) intact (unknown) (no (unknown) (unknown) Smoking Status: (units (unknown) date) Current every day unknown) smoker (unknown) (no (unknown) (unknown) Social History (units (unknown) date) (Reviewed 04/13/22 unknown) @ 09:52 by Mine Harrington DO) (unknown) (no (unknown) (unknown) Sodium 134 L (units (u nknown) date) unknown) (unknown) (no (unknown) (unknown) Sodium (units (unkno wn) date) unknown) (unknown) (no (unknown) (unknown) Staph aureus (PCR) (units (unknown) date) Not detected unknown) (unknown) (no (unknown) (unknown) Staph aureus (PCR) (units (unknown) date) unknown) (unknown) (no (unknown) (unknown) Staphylococcus sp (units (unknown) date) PCR Detected H unknown) (unknown) (no (unknown) (unknown) Staphylococcus sp (units (unknown) date) PCR unknown) (unknown) (no (unknown) (unknown) Strep agalactiae (units (unknown) date) (PCR) Not detected unknown) (unknown) (no (unknown) (unknown) Strep agalactiae (units (unknown) date) (PCR) unknown) (unknown) (no (unknown) (unknown) Strep pneumoniae (units (unknown) date) (PCR) Not detected unknown) (unknown) (no (unknown) (unknown) Strep pneumoniae (units (unknown) date) (PCR) unknown) (unknown) (no (unknown) (unknown) Streptococcus sp (units (unknown) date) PCR Not detected unknown) (unknown) (no (unknown) (unknown) Streptococcus sp (units (unknown) date) PCR unknown) (unknown) (no (unknown) (unknown) Summary (units (unkno wn) date) unknown) (unknown) (no (unknown) (unknown) Surgical History (units (unknown) date) (Reviewed 04/13/22 unknown) @ 09:52 by Mine C Mank, DO) (unknown) (no (unknown) (unknown) Temperature 98.1 F (units (unknown) date) unknown) (unknown) (no (unknown) (unknown) This is a This is (units (unknown) date) a 46-year-old unknown) female with history of cyclic vomiting, (unknown) (no (unknown) (unknown) Time Patient Seen: (units (unknown) date) 10:30 unknown) (unknown) (no (unknown) (unknown) Time Spent with (units (unknown) date) Patient unknown) (unknown) (no (unknown) (unknown) Time spent: (units (un known) date) Greater than 30 unknown) minutes (unknown) (no (unknown) (unknown) U Benzodiazepines (units (unknown) date) Scrn Negative unknown) (unknown) (no (unknown) (unknown) U Benzodiazepines (units (unknown) date) Scrn unknown) (unknown) (no (unknown) (unknown) U Marijuana (THC) (units (unknown) date) Screen TNP unknown) (unknown) (no (unknown) (unknown) U Marijuana (THC) (units (unknown) date) Screen unknown) (unknown) (no (unknown) (unknown) U Methamphetamines (units (unknown) date) Scrn Negative unknown) (unknown) (no (unknown) (unknown) U Methamphetamines (units (unknown) date) Scrn unknown) (unknown) (no (unknown) (unknown) U Opiates 300ng/mL (units (unknown) date) cut Negative unknown) (unknown) (no (unknown) (unknown) U Opiates 300ng/mL (units (unknown) date) cut unknown) (unknown) (no (unknown) (unknown) U Tricyclic (units (un known) date) Antidepress unknown) Negative (unknown) (no (unknown) (unknown) U Tricyclic (units (un known) date) Antidepress unknown) (unknown) (no (unknown) (unknown) Ur Amphetamines (units (unknown) date) Screen Negative unknown) (unknown) (no (unknown) (unknown) Ur Amphetamines (units (unknown) date) Screen unknown) (unknown) (no (unknown) (unknown) Ur Barbiturates (units (unknown) date) Screen Negative unknown) (unknown) (no (unknown) (unknown) Ur Barbiturates (units (unknown) date) Screen unknown) (unknown) (no (unknown) (unknown) Ur MDMA Scrn (units (u nknown) date) (Ecstasy) Negative unknown) (unknown) (no (unknown) (unknown) Ur MDMA Scrn (units (u nknown) date) (Ecstasy) unknown) (unknown) (no (unknown) (unknown) Ur Oxycodone (units (u nknown) date) Screen Negative unknown) (unknown) (no (unknown) (unknown) Ur Oxycodone (units (u nknown) date) Screen unknown) (unknown) (no (unknown) (unknown) Ur Phencyclidine (units (unknown) date) Scrn Negative unknown) (unknown) (no (unknown) (unknown) Ur Phencyclidine (units (unknown) date) Scrn unknown) (unknown) (no (unknown) (unknown) Urine Cocaine (units ( unknown) date) Screen Positive H unknown) (unknown) (no (unknown) (unknown) Urine Cocaine (units ( unknown) date) Screen unknown) (unknown) (no (unknown) (unknown) Urine Methadone (units (unknown) date) Screen Negative unknown) (unknown) (no (unknown) (unknown) Urine Methadone (units (unknown) date) Screen unknown) (unknown) (no (unknown) (unknown) VBG Base Excess (units (unknown) date) 22.0 H unknown) (unknown) (no (unknown) (unknown) VBG Base Excess (units (unknown) date) unknown) (unknown) (no (unknown) (unknown) VBG HCO3 43 H (units ( unknown) date) unknown) (unknown) (no (unknown) (unknown) VBG HCO3 (units (unkno wn) date) unknown) (unknown) (no (unknown) (unknown) VBG O2 Saturation (units (unknown) date) 97 H unknown) (unknown) (no (unknown) (unknown) VBG O2 Saturation (units (unknown) date) unknown) (unknown) (no (unknown) (unknown) VBG Total CO2 44 H (units (unknown) date) unknown) (unknown) (no (unknown) (unknown) VBG Total CO2 (units ( unknown) date) unknown) (unknown) (no (unknown) (unknown) VBG pCO2 40.7 L (units (unknown) date) unknown) (unknown) (no (unknown) (unknown) VBG pCO2 (units (unkno wn) date) unknown) (unknown) (no (unknown) (unknown) VBG pH 7.63 H (units ( unknown) date) unknown) (unknown) (no (unknown) (unknown) VBG pH (units (unkno wn) date) unknown) (unknown) (no (unknown) (unknown) VBG pO2 79 H (units (u nknown) date) unknown) (unknown) (no (unknown) (unknown) VBG pO2 (units (unkno wn) date) unknown) (unknown) (no (unknown) (unknown) VTE (units (unkno wn) date) unknown) (unknown) (no (unknown) (unknown) Aly/B-Vanco Res (units (unknown) date) Genes Not detected unknown) (unknown) (no (unknown) (unknown) Aly/B-Vanco Res (units (unknown) date) Genes unknown) (unknown) (no (unknown) (unknown) Vital Signs (units (un known) date) unknown) (unknown) (no (unknown) (unknown) Sergo Martino MD (units (unknown) date) unknown) (unknown) (no (unknown) (unknown) [Embedded Image (units (unknown) date) Not Available] unknown) (unknown) (no (unknown) (unknown) able to keep down (units (unknown) date) her home unknown) medications the last couple days but did try (unknown) (no (unknown) (unknown) alcohol intake: (units (unknown) date) current unknown) (unknown) (no (unknown) (unknown) allergies to (units (un known) date) Reglan, unknown) promethazine IV but can tolerate per rectum and latex.? She (unknown) (no (unknown) (unknown) amlodipine 5 mg (units (unknown) date) tablet unknown) (unknown) (no (unknown) (unknown) amlodipine for (units (unknown) date) your HTN which will unknown) help keep your potassium levels up. (unknown) (no (unknown) (unknown) and denies any (units (unknown) date) black or bloody unknown) stools.? She states no dysuria, urgency or (unknown) (no (unknown) (unknown) black or bloody (units (unknown) date) stools.? She states unknown) no dysuria, urgency or frequency.? No (unknown) (no (unknown) (unknown) bupropion HCl 100 (units (unknown) date) mg tablet unknown) sustained-release 12 hr (unknown) (no (unknown) (unknown) chronic underlying (units (unknown) date) anxiety/depression. unknown) (unknown) (no (unknown) (unknown) complaint of (units (u nknown) date) vomiting for the unknown) past 3 days.? Patient states this is similar to (unknown) (no (unknown) (unknown) denies any (units (unk nown) date) hemoptysis.? States unknown) her pain is typical of her past episodes.? (unknown) (no (unknown) (unknown) does use tobacco, (units (unknown) date) states she drinks unknown) 3-5 alcoholic drinks daily and states she (unknown) (no (unknown) (unknown) down her home (units (u nknown) date) medications the unknown) last couple days but did try Phenergan suppository (unknown) (no (unknown) (unknown) drinks daily and (units (unknown) date) states she uses THC unknown) intermittently as well as cocaine.? Patient (unknown) (no (unknown) (unknown) fluconazole 200 mg (units (unknown) date) tablet unknown) (unknown) (no (unknown) (unknown) frequency.? No (units (unknown) date) vaginal bleeding or unknown) discharge.? Patient states she has not been (unknown) (no (unknown) (unknown) hemoptysis.? (units (u nknown) date) States her pain is unknown) typical of her past episodes.? Patient states (unknown) (no (unknown) (unknown) her amount of (units ( unknown) date) marijuana use. unknown) Changed her home amlodipine to aldactone for (unknown) (no (unknown) (unknown) her prior cyclic (units (unknown) date) vomiting episodes unknown) in the past.? She denies fevers.? She states (unknown) (no (unknown) (unknown) hereditary (units (unk nown) date) angioedema but does unknown) not know what the results of those were.? (unknown) (no (unknown) (unknown) household members: (units (unknown) date) spouse unknown) (unknown) (no (unknown) (unknown) today.? We (units (unknown) date) did discuss that unknown) she was noted to have angioedema on the last (unknown) (no (unknown) (unknown) hypokalemia. (units (u nknown) date) unknown) (unknown) (no (unknown) (unknown) last cocaine use (units (unknown) date) but does not think unknown) it was recently.? She is accompanied by her (unknown) (no (unknown) (unknown) lorazepam and as (units (unknown) date) needed.? Can unknown) continue does of bupropion 100 mg daily for (unknown) (no (unknown) (unknown) mecA-Methicil Res (units (unknown) date) Gene Not detected unknown) (unknown) (no (unknown) (unknown) mecA-Methicil Res (units (unknown) date) Gene unknown) (unknown) (no (unknown) (unknown) mucosa pink and (units (unknown) date) moist unknown) (unknown) (no (unknown) (unknown) noted to have (units (u nknown) date) angioedema on the unknown) last 2 visits of her tongue.? Patient states she (unknown) (no (unknown) (unknown) per rectum and (units (unknown) date) latex.? She does unknown) use tobacco, states she drinks 3-5 alcoholic (unknown) (no (unknown) (unknown) persistent (units (unk nown) date) hypokalemia and unknown) increased her home K supplement to 40 daily from 20. (unknown) (no (unknown) (unknown) pills per day now. (units (unknown) date) I've also put you unknown) on spironolactone in place of your (unknown) (no (unknown) (unknown) place of her (units (u nknown) date) amlodipine for HTN unknown) to help keep K levels up. (unknown) (no (unknown) (unknown) polysubstance (units ( unknown) date) abuse, alcohol use unknown) and angioedema.? Patient presents with (unknown) (no (unknown) (unknown) potassium chloride (units (unknown) date) 20 mEq tablet unknown) extended release (unknown) (no (unknown) (unknown) recently.? She is (units (unknown) date) accompanied by her unknown) today.? We did discuss that she was (unknown) (no (unknown) (unknown) resolved with (units (u nknown) date) haldol, benadryl unknown) and scopolamine patch. Patient counseled to limit (unknown) (no (unknown) (unknown) she is been (units (un known) date) stooling regularly unknown) with no diarrhea or constipation and denies any (unknown) (no (unknown) (unknown) she is been (units (un known) date) vomiting up unknown) everything she tries to put in her stomach, denies any (unknown) (no (unknown) (unknown) spironolactone 25 (units (unknown) date) mg tablet unknown) (unknown) (no (unknown) (unknown) states she is been (units (unknown) date) vomiting up unknown) everything she tries to put in her stomach, (unknown) (no (unknown) (unknown) states she is (units ( unknown) date) unsure of her last unknown) cocaine use but does not think it was (unknown) (no (unknown) (unknown) surgeries.? She (units (unknown) date) does have allergies unknown) to Reglan, promethazine IV but can tolerate (unknown) (no (unknown) (unknown) take 1 tablet by (units (unknown) date) mouth once daily unknown) (unknown) (no (unknown) (unknown) take 1 tablet once (units (unknown) date) weekly until rash unknown) resolves up to 4 weeks (unknown) (no (unknown) (unknown) this morning which (units (unknown) date) was not helpful.? unknown) Patient states no surgeries.? She does have (unknown) (no (unknown) (unknown) to her prior (units (u nknown) date) cyclic vomiting unknown) episodes in the past.? She denies fevers.? She (unknown) (no (unknown) (unknown) uses THC (units (unkno wn) date) intermittently as unknown) well as cocaine.? Patient states she is unsure of her (unknown) (no (unknown) (unknown) vaccination.? She (units (unknown) date) had testing sent unknown) for hereditary angioedema but does not know (unknown) (no (unknown) (unknown) vaginal bleeding (units (unknown) date) or discharge.? unknown) Patient states she has not been able to keep (unknown) (no (unknown) (unknown) vomiting, (units (unkn own) date) polysubstance unknown) abuse, alcohol use and angioedema.? Patient presents (unknown) (no (unknown) (unknown) was told that this (units (unknown) date) is from her COVID unknown) vaccination.? She had testing sent for (unknown) (no (unknown) (unknown) what the results (units (unknown) date) of those unknown) were.?46-year-old female with history of cyclic (unknown) (no (unknown) (unknown) while inpatient. (units (unknown) date) unknown) (unknown) (no (unknown) (unknown) with Haldol IV and (units (unknown) date) diphenhydramine IV unknown) as well as scopolamine patch. Resolved (unknown) (no (unknown) (unknown) with complaint of (units (unknown) date) vomiting for the unknown) past 3 days.? Patient states this is similar Result panel 86 (unknown) (no date) (unknown) (unknown) (no value) (units (un known) unknown) (unknown) (no date) (unknown) (unknown) NO GROWTH (units (unk nown) AFTER 24 unknown) HOURS Result panel 87 (unknown) (no date) (unknown) (unknown) (no value) (units (un known) unknown) (unknown) (no date) (unknown) (unknown) NO GROWTH (units (unk nown) AFTER 48 unknown) HOURS Result panel 88 (unknown) (no (unknown) (unknown) (no value) (units (unk nown) date) unknown) (unknown) (no (unknown) (unknown) ATOK (units (unkno wn) date) unknown) (unknown) (no (unknown) (unknown) Gram positive (units ( unknown) date) cocci unknown) (unknown) (no (unknown) (unknown) Identification (units (unknown) date) and Sensitivity unknown) to Follow (unknown) (no (unknown) (unknown) In Both (units (unkno wn) date) Anaerobic and unknown) Aerobic Bottles (unknown) (no (unknown) (unknown) STANEGCoag (units (unk nown) date) negative unknown) Staphylococcus Result panel 89 (unknown) (no date) (unknown) (unknown) (no value) (units (un known) unknown) (unknown) (no date) (unknown) (unknown) NO GROWTH (units (unk nown) AFTER 72 unknown) HOURS Result panel 90 (unknown) (no (unknown) (unknown) (no value) (units (unk nown) date) unknown) (unknown) (no (unknown) (unknown) >=16 (units (unkno wn) date) unknown) (unknown) (no (unknown) (unknown) >=8 (units (unkno wn) date) unknown) (unknown) (no (unknown) (unknown) <=0.12 (units (unkno wn) date) unknown) (unknown) (no (unknown) (unknown) <=0.25 (units (unkno wn) date) unknown) (unknown) (no (unknown) (unknown) <=0.5 (units (unkno wn) date) unknown) (unknown) (no (unknown) (unknown) <=1 (units (unkno wn) date) unknown) (unknown) (no (unknown) (unknown) <=10 (units (unkno wn) date) unknown) (unknown) (no (unknown) (unknown) 0.25 (units (unkno wn) date) unknown) (unknown) (no (unknown) (unknown) 0.5 (units (unkno wn) date) unknown) (unknown) (no (unknown) (unknown) 1 (units (unkno wn) date) unknown) (unknown) (no (unknown) (unknown) 2 (units (unkno wn) date) unknown) (unknown) (no (unknown) (unknown) 4 (units (unkno wn) date) unknown) (unknown) (no (unknown) (unknown) Gram positive cocci (unit s (unknown) date) unknown) (unknown) (no (unknown) (unknown) Isolated in Aerobic (unit s (unknown) date) Bottle only unknown) (unknown) (no (unknown) (unknown) STAEPIStaphylococcus (uni ts (unknown) date) epidermidis unknown) (unknown) (no (unknown) (unknown) STAHSHStaphylococcus (uni ts (unknown) date) hominis ssp mynor unknown) Result panel 91 (unknown) (no date) (unknown) (unknown) (no value) (units (un known) unknown) (unknown) (no date) (unknown) (unknown) NO GROWTH (units (unk nown) AFTER 4 DAYS unknown) Result panel 92 (unknown) (no date) (unknown) (unknown) (no value) (units (un known) unknown) (unknown) (no date) (unknown) (unknown) NO GROWTH (units (unk nown) AFTER 5 DAYS unknown) Social History No information. Vital Signs No information.
[2022-05-29] MEDS ORDERED: PROMETHAZINE INJ 25 MG in SODIUM CHLORIDE 0.9% 50 ML IV STA (23:09)
[2022-05-29] MEDS ORDERED: PROMETHAZINE 25 MG/1 ML VIAL ONE (23:32)
[2022-05-30] MEDS ORDERED: DROPERIDOL 5 MG/2 ML VIAL IVP STA (00:36)
[2022-05-30 01:25] LABS: BASOPHILS % (AUTO) 0.2 %; EOSINOPHILS % (AUTO) 0.2 %; HCT - HEMATOCRIT 40.2 % (37.0-47.0); LYMPHOCYTES # (AUTO) 0.6 10^3/uL (1.5-3.5); LYMPHOCYTES % (AUTO) 8.8 %; MEAN CORPUSCULAR HGB CONC 32.3 g/dL (32.0-36.0); MEAN PLATELET VOLUME 10.5 fL (7.9-10.8); MONOCYTES # (AUTO) 0.1 10^3/uL (0.0-1.0); MONOCYTES % (AUTO) 1.2 %; NEUTROPHILS # (AUTO) 5.8 10^3/uL (1.5-6.6); NEUTROPHILS % (AUTO) 89.3 %; PLT - PLATELET COUNT 207 10^3/uL (130-450); RED BLOOD COUNT 4.06 10^6/uL (4.20-5.40); RED CELL DISTRIBUTION WIDTH 12.3 % (12.0-15.0); WHITE BLOOD COUNT 6.5 x10^3/uL (4.8-10.8)
[2022-05-30 01:34] LABS: CALCIUM 9.3 mg/dL (8.5-10.3); CREATININE 0.8 mg/dL (0.4-1.0); POTASSIUM 3.5 mmol/L (3.5-5.0)
[2022-05-30] MEDS ORDERED: PANTOPRAZOLE 40 MG VIAL IV ONE (02:31)
[2022-05-30] MEDS ORDERED: ONDANSETRON 4 MG/2 ML VIAL IVP PRN (02:32)
[2022-05-30] MEDS ORDERED: PROCHLORPERAZINE 10 MG/2 ML VIAL IVP PRN (02:32)
[2022-05-30] MEDS ORDERED: SODIUM CHLORIDE FLUSH 0.9% 10 ML SYRINGE IVP PRN (02:32)
[2022-05-30] MEDS ORDERED: LORazepam 2 MG/ML VIAL IVP STA (02:51)
[2022-05-30] MEDS ORDERED: LORazepam 2 MG/ML VIAL IVP PRN (02:51)
--- NOTE | 2022-05-30 03:10 | HISTORY & PHYSICAL EXAMINATION ---
History and Physical - History and Physical Chief complaint Nausea and vomiting History of present illness This is a 46-year-old female who presented to emergency room with complaint of nausea and vomiting since yesterday. Patient had 3-4 episodes. She has history of cyclical vomiting syndrome. Patient is taking marijuana for her vomiting at home. As per the patient she was taking marijuana in the past and she stopped it for few years and her symptoms worsened therefore she restarted. She denies any fever chills diarrhea dysuria abdominal pain headache dizziness chest pain lower extremity edema etc. She is complaining of her teeth are closing -lockjaw since last 1 day. Her labs did not show any significant abnormalities. Vital signs are within normal limits. As per the ER report she initially called 911 for tongue swelling that occurred randomly after getting a "shot button about the emergency room but was completely back to normal. Patient received IV hydration, IV Solu- Medrol, IV Zofran, IV Phenergan etc. in the emergency room. Review of system 14 point review of system was done. It was negative except as per history of present illness Social history Patient smokes marijuana. She also smokes cigarettes in she uses alcohol as well. Family history No history of cancer in the family Allergies Reviewed Home medications Reviewed Past medical history Hypertension anxiety cyclic vomiting syndrome Past surgical history cholecystectomy and appendectomy Physical examination Vital signs Blood pressure 155/97, temperature 36.6, heart rate 90, respiration 16, oxygen saturation 100% on room air Patient appears in mild to moderate distress Head is atraumatic normocephalic Pupils are round and reactive to light and accommodation Neck no JVD Respiration antibody equal Abdomen nontender nondistended CVS regular rate and rhythm Psych patient appears anxious EM[employer] WHE[employer]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 She is moving all 4 limbs Musculoskeletal no calf muscle tenderness Skin no ulcers or rashes Labs reviewed Assessment 1. Cyclical vomiting syndrome 2. Anxiety 3. Marijuana use 4. Nicotine use disorder 5. Subjective complaint of locking of the jaw. Plan Admit patient on MedSurg floor IV normal saline with potassium chloride Check magnesium level As needed Zofran We will try to avoid other antiemetics with complaining of lockjaw. We will give as needed IV Ativan IV Protonix CODE STATUS Full code DVT prophylaxis SCD Total time taken for this was 60 minutes. This was telemedicine evaluation using bedside telemedicine audiovisual cart with the help from bedside nursing staff.
[2022-05-30 03:40] LABS: CRP - C-REACTIVE PROTEIN < 1.0 mg/dL (0-1.0)
[2022-05-30] MEDS: NS W/20 MEQ KCL 1,000 ML IV SCH ×3 (03:52→23:00)
[2022-05-30] MEDS: SODIUM CHLORIDE FLUSH 0.9% 10 ML SYRINGE IVP SCH ×3 (08:12→23:26)
[2022-05-30] MEDS: FAMOTIDINE 20 MG/2 ML VIAL IVP SCH ×2 (08:12→21:34)
--- NOTE | 2022-05-30 11:03 | PHARMACY PROGRESS NOTE ---
- Best Possible Medication History Admit Date and Time: 05/30/22 0232 Processed by: Nursing Medication History completed: Yes Secondary Source(s): Insurance records As the person ultimately responsible for medication therapy, providers are able to order a medication from an existing home medication list in [facility] via the "Reconcile Routine" prior to Confirmation of that medication by office support assistant. Such practice is discouraged except when the physician, in their clinical judgment, deems that a medical need exists for a medication without regard to previous use.
[2022-05-31 07:34] VITALS: BP 128/82
[2022-05-31] MEDS: FAMOTIDINE 20 MG/2 ML VIAL IVP SCH (08:03)
[2022-05-31] MEDS: NS W/20 MEQ KCL 1,000 ML IV SCH (08:08)
[2022-05-31] MEDS: SODIUM CHLORIDE FLUSH 0.9% 10 ML SYRINGE IVP SCH (08:14)
--- NOTE | 2022-05-31 10:53 | Discharge Plan ---
Discharge Plan Problem Reviewed?: Yes Disposition: Home, Self Care Condition: Stable Diet: Regular Activity Restrictions: Activity as Tolerated Shower Restrictions: No Driving Restrictions: No Health Concerns: You were brought to the hospital by EMS because of complaints of swelling of the tongue for an hour. You were given Benadryl, Zofran and you felt slightly be tter and swelling was down but at that point your complaint switched to nausea and vomiting. You have a previous history of cannabinoid hyperemesis and were placed under observation for that. On examination in the emergency room the emergency room doctor felt that your tongue size was normal. When we examined you this morning your tongue size also appears to be normal to us. Speech is normal. Swallowing is normal. Breathing is normal. We did find that you had a geographic coating on your tongue of whiteness that cannot be scraped off. However you do feel that your tongue is swollen but unfortunately we cannot document that. Unfortunately the close you came in with our wet. You are unhappy that you have to go home and what close. We do not have change of clothes for you. You have been able to keep water down. And a small amount of liquids this morning. Plan of Treatment: Please follow-up with your primary care provider in the next 1 to 2 weeks. Plea se consider stopping cannabis completely for the rest of your life. Care Goals: No new goals at this time. Assessment: Patient is expressing displeasure that her clothes are wet and that we do not have clean close to provider. She is expressing displeasure that she feels that her tongue is swollen and we are not validating that. No Smoking: If you smoke, Please STOP! Call for help. Follow-up with: Sergo Martino MD [Primary Care Provider] -
--- NOTE | 2022-05-31 17:49 | PROVIDER PROGRESS NOTE ---
Progress Note May 31, 2022 10:30 AM This is a discharge note. Patient was seen in the emergency room for complaints of a swollen tongue as well as a "locked jaw" which she says are angioedema episodes that she developed after COVID-vaccine. After she received medications for swollen tongue (ER doctor felt the tongue was not swollen) she then described history of cyclical vomiting and having vomiting since yesterday. She was placed in observation overnight since she felt that she was not able to keep down food. Overnight she slept. On the morning of discharge she was asleep, needed to be touched twice in the shoulder to wake up. And then by late morning was much more wide-awake. Still complaining of a swollen tongue. However she was able to keep liquids down and was ready for discharge. At discharge she let us know that she was unhappy with the food here. She was unhappy that we did not have a clean and change of close to give to patients at discharge. She felt that her clothes were soiled and wet (the close that she came in with last night) and was unhappy that she had to go home with these close. She did not want a wait for her friend to bring her close to go home and. She also did not feel like she was validated for her complaint of lockjaw or swollen tongue. I did explain to her that while she did have the subjective symptoms, on physical exam they were not present to us. She was not happy about that. She also complained that there was no TV. However she did really like her nurse Becca. Discharge was done with nurse Hudson, and PA student, as well as myself. Patient was awake, alert. Able to get out of bed spontaneously on her own, paced the floors. Speech was lucid, intact, with no slurring. No facial asymmetry. Pupils were reactive. On examination of the tongue she does have a white coating over her tongue that is not able to be taken off. Geographic distribution. Although she complained of mouth ulcers I was not seeing any on the sides of her tongue. There was no tachypnea or difficulty speaking from a respiratory perspective. Temperature was 36.7. Heart rate 62. Blood pressure 128/82. Respirations 16. 100% on room air. She is 5 foot 10 inches tall and weighs 68.5 kg. Neck was supple. Lungs were clear. She demonstrated normal swallowing mechanism by eating her clear liquids. She is asked to follow-up with her primary care provider. Assessment 1. Cyclical vomiting syndrome 2. Anxiety 3. Marijuana use 4. Nicotine use disorder 5. Subjective complaint of locking of the jaw.
== END 2022-05-31 11:30 | disposition home or self-care (01) ==
LOC: ED 21:45 → MS2 05-30 02:32
PROVIDERS: ADMIT Internal Medicine; ATTEND Specialist
DX: R11.15 Cyclical vomiting syndrome unrelated to migraine (principal); R22.0 Localized swelling, mass and lump, head; M26.69 Other specified disorders of temporomandibular joint; F41.9 Anxiety disorder, unspecified; F17.210 Nicotine dependence, cigarettes, uncomplicated; I10 Essential (primary) hypertension; Z20.822 Contact with and (suspected) exposure to COVID-19; Z90.49 Acquired absence of other specified parts of digestive tract
CPT/HCPCS: 36415; 80048; 83735; 84443; 85025; 86140; 87635; 96361; 96365; 96375; 96376; 99282; 99285; G0378; J2060; J7040

== ENCOUNTER 2022-09-21 16:38 | Outpatient (CLI) | payer MEDICAID, OTHER | END 2022-09-21 16:39 | disposition critical access hospital (66) | LOC: EMS 16:38 | DX: T78.3XXA Angioneurotic edema, initial encounter (principal) | CPT/HCPCS: A0425; A0427 ==

== ENCOUNTER 2022-09-21 17:28 | Emergency (ER) | payer MEDICAID, OTHER ==
--- NOTE | 2022-09-21 17:18 | ED Physician Documentation ---
History of Present Illness - Stated complaint Stated Complaint: ANAPHYLAXIS - Additonal information Additional information: 47-year-old female presents to the emergency department for evaluation of angioedema. For much of the afternoon she had been dry heaving and having cyclical vomiting. She does endorse cannabis use. However about 4 PM she began to have some tongue swelling and inability to tolerate her oral secretions. Patient did self administer herself 0.3 mg of epinephrine IM at home and summoned 911. For EMS they report that she still had some tongue swelling. They gave her 50 mg of Benadryl as well as 125 mg of Solu-Medrol. 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 They are unsure the cause. She was admitted to this hospital for similar in May 2022. In the past she has been intubated for angioedema. On presentation here she is alert and well-appearing. She is crying and anxious. She is upset that this" keeps happening to her.". Her distal tongue is mildly swollen but this is distal to an area where she appears to have bitten it. Posterior oropharynx is without swelling. Uvula is midline. She has normal phonation and swallow. 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: None : None HEENT: None Psych: Depression, Anxiety Musculoskeletal: None Derm: None - Past Surgical History Past Surgical History: Yes General: Cholecystectomy, Appendectomy - Present Medications Home Medications: Ambulatory Orders Medication Instructions Recorded Confirmed amLODIPine [Norvasc] 5 mg PO DAILY #30 tablet 12/14/21 05/30/22 Spironolactone [Aldactone] 25 mg PO DAILY 05/30/22 05/30/22 buPROPion [Wellbutrin Sr] 100 mg PO DAILY 05/30/22 05/30/22 EPINEPHrine [Epinephrine] 0.3 mg IJ ONCE PRN #1 each 09/21/22 - Allergies Allergies/Adverse Reactions: Allergies Allergy/AdvReac Type Severity Reaction Status Date / Time metoclopramide HCl * Allergy Rash Verified 09/21/22 17:19 [From Reglan] - Social History Does the pt smoke?: Yes Smoking Status: Current every day smoker Does the pt drink ETOH?: Yes Does the pt have substance abuse?: Yes - Immunizations Immunizations are current?: Yes - POLST Patient has POLST: No POLST Status: Full Code PD ED PE NORMAL - General General: Alert and oriented X 3, Well developed/nourished. No: No acute distress (Crying anxious) - HEENT HEENT: Moist mucous membranes. No: Pharynx benign (No posterior oropharynx edema. Normal phonation. Normal swallow. Distal tip of the tongue is mildly swollen and tender distal to the point where she appears to have bitten her tongue. No tongue swelling otherwise. No lip swelling. No swelling of the neck.) - Neck Neck: Supple, no meningeal sign, No adenopathy - Cardiac Cardiac: RRR, No murmur - Respiratory Respiratory: No respiratory distress, Clear bilaterally - Abdomen Abdomen: Normal bowel sounds, Soft - Back Back: No CVA TTP, No spinal TTP - Derm Derm: Normal color, Warm and dry - Extremities Extremities: No deformity, No tenderness to palpate, Normal ROM s pain - Neuro Neuro: Alert and oriented X 3, international representative 2-12 intact Eye Opening: Spontaneous Motor: Obeys Commands Verbal: Oriented GCS Score: 15 Results - Vitals Vitals: Vital Signs - 24 hr 09/21/22 09/21/22 09/21/22 17:13 19:18 19:34 Heart Rate 71 84 85 Respiratory 18 16 12 Rate Blood Pressure 123/84 H 136/92 H 136/92 H O2 Saturation 100 100 99 09/21/22 20:04 Heart Rate 84 Respiratory 16 Rate Blood Pressure 124/88 H O2 Saturation 99 Oxygen O2 Source Room air - Labs Labs: Laboratory Tests 09/21/22 09/21/22 09/21/22 17:46 17:46 17:46 WBC 5.0 RBC 3.93 L Hgb 12.0 Hct 36.8 L MCV 93.6 MCH 30.5 MCHC 32.6 RDW 12.9 Plt Count 207 MPV 9.9 Neut # (Auto) 3.6 Lymph # (Auto) 1.0 L [place] # (Auto) 0.3 Eos # (Auto) 0.1 Baso # (Auto) 0.0 Absolute Nucleated RBC 0.00 Nucleated RBC % 0.0 ESR 9 Sodium 138 Potassium 3.2 L Chloride 99 L Carbon Dioxide 27 Anion Gap 12.0 BUN 12 Creatinine 0.8 Estimated GFR (MDRD) 76 L Glucose 108 H Calcium 8.9 Total Bilirubin 1.1 H AST 19 ALT 11 Alkaline Phosphatase 60 C-Reactive Protein < 1.0 Total Protein 7.7 Albumin 4.5 Globulin 3.2 Albumin/Globulin Ratio 1.4 Lipase 35 PD Medical Decision Making - ED course Complexity details: reviewed results, re-evaluated patient, considered differential, d/w patient ED course: 47-year-old female presents to the emergency department for evaluation of angioedema. She has had 3-4 episodes of this in the last few years after receiving the COVID-19 vaccination. This afternoon she was dry heaving. She had smoked cannabis previous But does have a history of cyclic vomiting. She reports its not due to cannabis as she is abstain from it in the past and continued to have vomiting. However she began to feel her tongue swelling and was unable to tolerate her oral secretions. Patient self administered 0.3 mg of epinephrine at home and summoned 911. EMS note that they felt her tongue was mildly swollen at that time and they further administered 50 mg of Benadryl IV as well as 125 mg of Solu-Medrol. At the time the patient presented to the ER the tongue swelling had fully dissipated. There was no lip swelling. She had bitten the distal tip of her tongue which was mildly swollen but there was nothing else to suggest any evidence of airway compromise. I did obtain a CBC electrolytes, CRP, sed rate as well as a C4 and C1. My interpretation of her CBC and electrolytes is that there is no acute worrisome findings with the exception of a mildly low potassium of 3. This is likely secondary to the vomiting and dry heaving today. She was repleted with 40 of potassium orally. A C4 and C1 complement are pending. The we will not have these today they may be useful for the outpatient physician to help further manage and isolate causes for her intermittent angioedema. I have represcribed the EpiPen if she used hers at home today. [facility] was [facility] to the [facility] in [place]. Patient was monitored here in the emergency department for about 5 hours with no recurrence of the angioedema. Her airway has been main obtained With no recurrence of tongue or lip swelling. She is phonating normally and tolerating her oral secretions. I encourage the patient to follow closely with her primary care provider, Especially with her complement levels. Otherwise emergent return precautions discussed. Departure - Departure Disposition: 01 Home, Self Care Clinical Impression: Hypokalemia, Cyclical vomiting Angioedema Qualifiers: Encounter type: initial encounter Qualified Code(s): T78.3XXA - Angioneurotic edema, initial encounter Condition: Stable Record reviewed to determine appropriate education?: Yes Instructions: ED Angioedema Prescriptions: EPINEPHrine [Epinephrine] 0.3 mg IJ ONCE PRN #1 each PRN Reason: Anaphylaxis Comments: You came to the emergency department after you are having episodes of cyclic vomiting at home but then began to have swelling of your tongue and difficulty Robbin Estevez your oral secretions. This is called angioedema. You did good self administer epinephrine to yourself at home and the paramedics gave you a dose of Benadryl as well as IV steroids. We have monitored you here in the emergency department for 5 hours and you have had no further return of the angioedema or tongue swelling. The labs that we obtained on you today showed no worrisome findings with the exception of a low potassium. This is due to the vomiting. We did give you ex tra potassium here in the ER. We did obtain complement labs. This is called C4 and C1. We will not have these results back for the next 48 hours but depending on your complement levels it can help determine a cause for your angioedema. I encourage you to follow these lab results up very closely with your primary care doctor. I have sent a new prescription for the EpiPen to your pharmacy. I encourage you to keep this with you and on your person at all times if you ever have a return of the symptoms do not hesitate to self administer the epinephrine.
[~2022-09-21 17:28] MED LIST: SODIUM CHLORIDE 0.9% 1,000 ML IV STA
[2022-09-21 17:57] LABS: BASOPHILS % (AUTO) 0.2 %; EOSINOPHILS # (AUTO) 0.1 10^3/uL (0.0-0.7); HCT - HEMATOCRIT 36.8 % (37.0-47.0); MEAN CORPUSCULAR HEMOGLOBIN 30.5 pg (27.0-31.0); MEAN CORPUSCULAR HGB CONC 32.6 g/dL (32.0-36.0); MEAN CORPUSCULAR VOLUME 93.6 fL (81.0-99.0); MEAN PLATELET VOLUME 9.9 fL (7.9-10.8); MONOCYTES # (AUTO) 0.3 10^3/uL (0.0-1.0); MONOCYTES % (AUTO) 5.2 %; NEUTROPHILS # (AUTO) 3.6 10^3/uL (1.5-6.6); NEUTROPHILS % (AUTO) 72.4 %; PLT - PLATELET COUNT 207 10^3/uL (130-450); RED BLOOD COUNT 3.93 10^6/uL (4.20-5.40); RED CELL DISTRIBUTION WIDTH 12.9 % (12.0-15.0)
[2022-09-21 18:12] LABS: ALBUMIN 4.5 g/dL (3.2-5.5); ALBUMIN/GLOBULIN RATIO 1.4 (1.0-2.2); ALKALINE PHOSPHATASE 60 IU/L (42-121); ALT ALANINE AMINOTRANSFERASE 11 IU/L (10-60); AST ASPARTATE AMINOTRANSFERASE 19 IU/L (10-42); BILIRUBIN,TOTAL 1.1 mg/dL (0.2-1.0); BUN - BLOOD UREA NITROGEN 12 mg/dL (6-20); CALCIUM 8.9 mg/dL (8.5-10.3); CARBON DIOXIDE - CO2 27 mmol/L (21-32); CHLORIDE 99 mmol/L (101-111); CREATININE 0.8 mg/dL (0.4-1.0); GFR - MDRD 76 (>89); GLUCOSE 108 mg/dL (70-100); LIPASE 35 U/L (22-51); POTASSIUM 3.2 mmol/L (3.5-5.0); SODIUM 138 mmol/L (135-145); TOTAL PROTEIN 7.7 g/dL (6.7-8.2)
[2022-09-21 18:20] LABS: CRP - C-REACTIVE PROTEIN < 1.0 mg/dL (0-1.0)
--- OUTSIDE RECORDS SUMMARY | 2022-09-21 18:42 | EXTERNAL MEDICAL SUMMARY RPT | Continuity of Care Document ---
:1975 Author Organization [facility] Address [address] [place] [address] Phone Care Team Providers Name Role Phone Unavailable Unavailable Unavailable Sergo Martino Unavailable Unavailable Allergies and Intolerances date description facility type (no date) latex [facility] (unknown) (no date) metoclopramide [facility] (unknown) (no date) promethazine [facility] (unknown) Encounters No information. Functional Status No information. Immunizations No information. Medications No information. Problems date description facility 2022-07-06 00:00 Anaphylaxis [facility] 2022-07-06 09:46 Anaphylactic shock, unspecified, [facility] encounter 2022-07-06 15:51 Anaphylactic shock, unspecified, [facility] encounter 2022-07-06 21:16 Anaphylactic shock, unspecified, [facility] encounter 2022-07-06 21:34 Anaphylactic shock, unspecified, [facility] encounter 2022-07-09 14:51 Cyclical vomiting syndrome unrelated to [facility] migraine 2022-07-09 14:54 Anaphylactic shock, unspecified, [facility] encounter 2022-07-10 03:00 Anaphylactic shock, unspecified, [facility] encounter 2022-07-10 04:40 Anaphylactic shock, unspecified, [facility] encounter 2022-07-10 07:55 Anaphylactic shock, unspecified, [facility] encounter 2022-07-10 09:17 Anaphylactic shock, unspecified, [facility] encounter 2022-07-11 10:57 Anaphylactic shock, unspecified, [facility] encounter 2022-07-16 10:43 Anaphylactic shock, unspecified, [facility] encounter Procedures date description facility 2022-07-06 00:00 Anaerobic [facility] 2022-07-10 00:00 Anaerobic [facility] 2022-07-07 00:00 NM SPECT imaging myocard perfus w multi [facility] incl rest, stress and redistrib 2022-07-06 00:00 Gram Stain [facility] 2022-07-10 00:00 Gram Stain [facility] 2022-07-05 00:00 X-ray of chest, single view [facility] 2022-07-06 00:00 X-ray of chest, single view [facility] 2022-07-06 00:00 Limited [facility] 2022-07-05 00:00 Respiratory Ventilation, 24-96 [facility] Hours Results/Labs test date author facility value unit interpret ation Result panel 1 (unknown) (no date[facility] Result panel 2 (unknown) (no date) (unknown[facility] Result panel 3 (unknown) (no date) (unknown[facility] Result panel 4 (unknown) (no date) (unknown[facility] Result panel 5 (unknown) (no date) (unknown[facility] Result panel 6 (unknown) (no date) (unknown[facility] Result panel 7 (unknown) (no date) (unknown[facility] Result panel 8 (unknown) (no date) (unknown[facility] Result panel 9 (unknown) (no date) (unknown[facility] Result panel 10 (unknown) (no date) (unknown[facility] Result panel 11 (unknown) (no date) (unknown[facility] Result panel 12 (unknown) (no date) (unknown[facility] Result panel 13 (unknown) (no date) (unknown[facility] Result panel 14 (unknown) (no date) (unknown[facility] Result panel 15 (unknown) (no date) (unknown[facility] Result panel 16 (unknown) (no date) (unknown[facility] Result panel 17 (unknown) (no date) (unknown[facility] Result panel 18 (unknown) (no date) (unknown[facility] Result panel 19 (unknown) (no date) (unknown[facility] Result panel 20 (unknown) (no date) (unknown[facility] Result panel 21 (unknown) (no date) (unknown[facility] Result panel 22 (unknown) (no date) (unknown[facility] Result panel 23 (unknown) (no date) (unknown[facility] Result panel 24 (unknown) (no date) (unknown[facility] Result panel 25 (unknown) (no date) (unknown[facility] Result panel 26 (unknown) (no date) (unknown[facility] Result panel 27 (unknown) (no date) (unknown[facility] Result panel 28 (unknown) (no date) (unknown[facility] Result panel 29 (unknown) (no date) (unknown[facility] Result panel 30 (unknown) (no date) (unknown[facility] Result panel 31 (unknown) (no date) (unknown[facility] Result panel 32 (unknown) (no date) (unknown[facility] Result panel 33 (unknown) (no date) (unknown[facility] Result panel 34 (unknown) (no date) (unknown[facility]) Result panel 35 (unknown) (no date) (unknown[facility] Result panel 36 (unknown) (no date) (unknown[facility] Result panel 37 (unknown) (no date) (unknown[facility] Result panel 38 (unknown) (no date) (unknown[facility] Result panel 39 (unknown) (no date) (unknown[facility] Result panel 40 (unknown) (no date) (unknown[facility] Result panel 41 (unknown) (no date) (unknown[facility] Result panel 42 (unknown) (no date) (unknown[facility] Result panel 43 (unknown) (no date) (unknown[facility] Result panel 44 (unknown) (no date) (unknown[facility] Result panel 45 (unknown) (no date) (unknown[facility] Result panel 46 (unknown) (no date) (unknown[facility] Result panel 47 (unknown) (no date) (unknown[facility] Result panel 48 (unknown) (no date) (unknown[facility] Result panel 49 (unknown) (no date) (unknown[facility] Result panel 50 (unknown) (no date) (unknown[facility] Result panel 51 (unknown) (no date) (unknown) [facility] Result panel 52 (unknown) (no date) (unknown) [facility] Result panel 53 (unknown) (no date) (unknown) [facility] Result panel 54 (unknown) (no date) (unknown) [facility] Result panel 55 (unknown) (no date) (unknown) [facility] Result panel 56 (unknown) (no date) (unknown) [facility] Result panel 57 (unknown) (no date) (unknown) [facility] Result panel 58 (unknown) (no date) (unknown) [facility] Result panel 59 (unknown) (no date) (unknown[facility] Result panel 60 (unknown) (no date) (unknown[facility] Result panel 61 (unknown) (no date) (unknown[facility] Result panel 62 (unknown) (no date) (unknown[facility] Result panel 63 (unknown) (no date) (unknown[facility] Result panel 64 (unknown) (no date) (unknown[facility] Result panel 65 (unknown) (no date) (unknown[facility] Result panel 66 (unknown) (no date) (unknown) [facility] Result panel 67 (unknown) (no date) (unknown[facility] Result panel 68 (unknown) (no date) (unknown[facility] Result panel 69 (unknown) (no date) (unknown[facility] Result panel 70 (unknown) (no date) (unknown) [facility] Result panel 71 (unknown) (no date) (unknown[facility] Result panel 72 (unknown) (no date) (unknown) [facility]) Result panel 73 (unknown) (no date) (unknown) [facility] Result panel 74 (unknown) (no date) (unknown[facility]) Result panel 75 (unknown) (no date) (unknown) [facility] Result panel 76 (unknown) (no date) (unknown) [facility] Result panel 77 (unknown) (no date) (unknown) [facility] Result panel 78 (unknown) (no date) (unknown) [facility] Result panel 79 (unknown) (no date) (unknown) [facility]) Result panel 80 (unknown) (no date) (unknown[facility] Result panel 81 (unknown) (no date) (unknown[facility]) Result panel 82 (unknown) (no date) (unknown[facility] Result panel 83 (unknown) (no date) (unknown[facility] Result panel 84 (unknown) (no date) (unknown[facility] Result panel 85 (unknown) (no date) (unknown[facility] Result panel 86 (unknown) (no date) (unknown[facility] Result panel 87 (unknown) (no date) (unknown[facility] Result panel 88 (unknown) (no date) (unknown[facility] Result panel 89 (unknown) (no date) (unknown[facility] Result panel 90 (unknown) (no date) (unknown[facility] Result panel 91 (unknown) (no date) (unknown[facility] Result panel 92 (unknown) (no date) (unknown[facility] Result panel 93 (unknown) (no date) (unknown[facility] Result panel 94 (unknown) (no date) (unknown[facility] Result panel 95 (unknown) (no date) (unknown[facility] Result panel 96 (unknown) (no date) (unknown[facility]) Result panel 97 (unknown) (no date) (unknown[facility] Result panel 98 (unknown) (no date) (unknown[facility] Result panel 99 (unknown) (no date) (unknown[facility] Result panel 100 (unknown) (no date) (unknown[facility] Result panel 101 (unknown) (no date) (unknown[facility]) Result panel 102 (unknown) (no date) (unknown[facility] Result panel 103 (unknown) (no date) (unknown[facility]) Result panel 104 (unknown) (no date) (unknown[facility] Result panel 105 (unknown) (no date) (unknown[facility]) Result panel 106 (unknown) (no date) (unknown[facility] Result panel 107 (unknown) (no date) (unknown[facility] Result panel 108 (unknown) (no date) (unknown[facility] Result panel 109 (unknown) (no date) (unknown[facility] Result panel 110 (unknown) (no date) (unknown[facility] Result panel 111 (unknown) (no date) (unknown[facility]) Result panel 112 (unknown) (no date) (unknown[facility] Result panel 113 (unknown) (no date) (unknown[facility] Result panel 114 (unknown) (no date) (unknown[facility] Result panel 115 (unknown) (no date) (unknown[facility]) Result panel 116 (unknown) (no date) (unknown[facility] Result panel 117 (unknown) (no date) (unknown[facility]) Result panel 118 (unknown) (no date) (unknown[facility] Result panel 119 (unknown) (no date) (unknown[facility] Result panel 120 (unknown) (no date) (unknown[facility]) Result panel 121 (unknown) (no date) (unknown[facility] Result panel 122 (unknown) (no date) (unknown[facility] Result panel 123 (unknown) (no date) (unknown[facility] Result panel 124 (unknown) (no date) (unknown[facility] Result panel 125 (unknown) (no date) (unknown[facility] Result panel 126 (unknown) (no date) (unknown[facility]) Result panel 127 (unknown) (no date) (unknown[facility] Result panel 128 (unknown) (no date) (unknown[facility] Result panel 129 (unknown) (no date) (unknown[facility]) Result panel 130 (unknown) (no date) (unknown[facility] Result panel 131 (unknown) (no date) (unknown[facility]) Result panel 132 (unknown) (no date) (unknown) [facility] Result panel 133 (unknown) (no date) (unknown[facility] Result panel 134 (unknown) (no date) (unknown) [facility]) Result panel 135 (unknown) (no date) (unknown[facility] Result panel 136 (unknown) (no date) (unknown) [facility] Result panel 137 (unknown) (no date) (unknown[facility]) Result panel 138 (unknown) (no date) (unknown) [facility] Result panel 139 (unknown) (no date) (unknown) [facility] Result panel 140 (unknown) (no date) (unknown[facility] Result panel 141 (unknown) (no date) (unknown) [facility]) Result panel 142 (unknown) (no date) (unknown) [facility]) Result panel 143 (unknown) (no date) (unknown) [facility] Result panel 144 (unknown) (no date) (unknown) [facility]) Result panel 145 (unknown) (no date) (unknown) [facility] Result panel 146 (unknown) (no date) (unknown) [facility]) Result panel 147 (unknown) (no date) (unknown) [facility] Result panel 148 (unknown) (no date) (unknown) [facility]) Result panel 149 (unknown) (no date) (unknown) [facility] Result panel 150 (unknown) (no date) (unknown) [facility]) Result panel 151 (unknown) (no date) (unknown) [facility] Result panel 152 (unknown) (no date) (unknown) [facility]) Result panel 153 (unknown) (no date) (unknown) [facility] Result panel 154 (unknown) (no date) (unknown) [facility]) Result panel 155 (unknown) (no date) (unknown) [facility] Result panel 156 (unknown) (no date) (unknown) [facility]) Result panel 157 (unknown) (no date) (unknown) [facility]) Result panel 158 (unknown) (no date) (unknown) [facility] Result panel 159 (unknown) (no date) (unknown) [facility]) Result panel 160 (unknown) (no date) (unknown) [facility]) Result panel 161 (unknown) (no date) (unknown) [facility]) Result panel 162 (unknown) (no date) (unknown) [facility] Result panel 163 (unknown) (no date) (unknown) [facility] Result panel 164 (unknown) (no date) (unknown) [facility]) Result panel 165 (unknown) (no date) (unknown) [facility] Result panel 166 (unknown) (no date) (unknown) [facility]) Result panel 167 (unknown) (no date) (unknown) [facility] Result panel 168 (unknown) (no date) (unknown) [facility] Result panel 169 (unknown) (no date) (unknown) [facility] Result panel 170 (unknown) (no date) (unknown) [facility] Result panel 171 (unknown) (no date) (unknown) [facility] Result panel 172 (unknown) (no date) (unknown) [facility] Result panel 173 (unknown) (no date) (unknown) [facility] Result panel 174 (unknown) (no date) (unknown) [facility] Result panel 175 (unknown) (no date) (unknown) [facility] Result panel 176 (unknown) (no date) (unknown) [facility] Result panel 177 (unknown) (no date) (unknown) [facility]) Result panel 178 (unknown) (no date) (unknown) [facility] Result panel 179 (unknown) (no date) (unknown) [facility] Result panel 180 (unknown) (no date) (unknown) [facility] Result panel 181 (unknown) (no date) (unknown) [facility] Result panel 182 (unknown) (no date) (unknown) [facility] Result panel 183 (unknown) (no date) (unknown) [facility] Result panel 184 (unknown) (no date) (unknown) [facility] Result panel 185 (unknown) (no date) (unknown) [facility] Result panel 186 (unknown) (no date) (unknown) [facility] Result panel 187 (unknown) (no date) (unknown) [facility] Result panel 188 (unknown) (no date) (unknown) [facility] Result panel 189 (unknown) (no date) (unknown) [facility]) Result panel 190 (unknown) (no date) (unknown) [facility] Result panel 191 (unknown) (no date) (unknown) [facility]) Result panel 192 (unknown) (no date) (unknown) [facility] Result panel 193 (unknown) (no date) (unknown) [facility] Result panel 194 (unknown) (no date) (unknown) [facility] Result panel 195 (unknown) (no date) (unknown) [facility] Result panel 196 (unknown) (no date) (unknown) [facility] Result panel 197 (unknown) (no date) (unknown) [facility] Result panel 198 (unknown) (no date) (unknown) [facility] Result panel 199 (unknown) (no date) (unknown) [facility] Result panel 200 (unknown) (no date) (unknown) [facility] Result panel 201 (unknown) (no date) (unknown) [facility] Result panel 202 (unknown) (no date) (unknown) [facility] Result panel 203 (unknown) (no date) (unknown) [facility] Result panel 204 (unknown) (no date) (unknown) [facility] Result panel 205 (unknown) (no date) (unknown) [facility] Result panel 206 (unknown) (no date) (unknown) [facility] Result panel 207 (unknown) (no date) (unknown) [facility] Result panel 208 (unknown) (no date) (unknown) [facility] Result panel 209 (unknown) (no date) (unknown) [facility] Result panel 210 (unknown) (no date) (unknown) [facility] Result panel 211 (unknown) (no date) (unknown[facility] Result panel 212 (unknown) (no date) (unknown) [facility] unknown) Result panel 213 (unknown) (no date) (unknown) [facility]) Result panel 214 (unknown) (no date) (unknown) [facility] Result panel 215 (unknown) (no date) (unknown) [facility]) Result panel 216 (unknown) (no date) (unknown) [facility]) Result panel 217 (unknown) (no date) (unknown) [facility]) Result panel 218 (unknown) (no date) (unknown) [facility]) Result panel 219 (unknown) (no date) (unknown) [facility]) Result panel 220 (unknown) (no date) (unknown) [facility]) Result panel 221 (unknown) (no date) (unknown) [facility]) Result panel 222 (unknown) (no date) (unknown) [facility]) Result panel 223 (unknown) (no date) (unknown) [facility]) Result panel 224 (unknown) (no date) (unknown) [facility]) Result panel 225 (unknown) (no date) (unknown) [facility]) Result panel 226 (unknown) (no date) (unknown) [facility]) Result panel 227 (unknown) (no date) (unknown) [facility]) Result panel 228 (unknown) (no date) (unknown) [facility]) Result panel 229 (unknown) (no date) (unknown) [facility]) Result panel 230 (unknown) (no date) (unknown) [facility]) Result panel 231 (unknown) (no date) (unknown) [facility]) Result panel 232 (unknown) (no date) (unknown) [facility]) Result panel 233 (unknown) (no date) (unknown) [facility]) Result panel 234 (unknown) (no date) (unknown) [facility]) Result panel 235 (unknown) (no date) (unknown) [facility]) Result panel 236 (unknown) (no date) (unknown[facility]) Result panel 237 (unknown) (no date) (unknown) [facility]) Result panel 238 (unknown) (no date) (unknown) [facility] Result panel 239 (unknown) (no date) (unknown) [facility]) Result panel 240 (unknown) (no date) (unknown) [facility]) Result panel 241 (unknown) (no date) (unknown) [facility]) Result panel 242 (unknown) (no date) (unknown) [facility]) Result panel 243 (unknown) (no date) (unknown) [facility]) Result panel 244 (unknown) (no date) (unknown) [facility]) Result panel 245 (unknown) (no date) (unknown) [facility]) Result panel 246 (unknown) (no date) (unknown) [facility]) Result panel 247 (unknown) (no date) (unknown) [facility]) Result panel 248 (unknown) (no date) (unknown) [facility]) Result panel 249 (unknown) (no date) (unknown) [facility]) Result panel 250 (unknown) (no date) (unknown) [facility]) Result panel 251 (unknown) (no date) (unknown) [facility]) Result panel 252 (unknown) (no date) (unknown) [facility]) Result panel 253 (unknown) (no date) (unknown) [facility]) Result panel 254 (unknown) (no date) (unknown) [facility]) Result panel 255 (unknown) (no date) (unknown) [facility]) Result panel 256 (unknown) (no date) (unknown) [facility]) Result panel 257 (unknown) (no date) (unknown) [facility]) Result panel 258 (unknown) (no date) (unknown) [facility]) Result panel 259 (unknown) (no date) (unknown) [facility]) Result panel 260 (unknown) (no date) (unknown) [facility]) Result panel 261 (unknown) (no date) (unknown) [facility]) Result panel 262 (unknown) (no date) (unknown) [facility]) Result panel 263 (unknown) (no date) (unknown) [facility]) Result panel 264 (unknown) (no date) (unknown) [facility]) Result panel 265 (unknown) (no date) (unknown) [facility]) Result panel 266 (unknown) (no date) (unknown) [facility]) Result panel 267 (unknown) (no date) (unknown) [facility]) Result panel 268 (unknown) (no date) (unknown) [facility]) Result panel 269 (unknown) (no date) (unknown) [facility]) Result panel 270 (unknown) (no date) (unknown) [facility]) Result panel 271 (unknown) (no date) (unknown) [facility]) Result panel 272 (unknown) (no date) (unknown) [facility]) Result panel 273 (unknown) (no date) (unknown) [facility]) Result panel 274 (unknown) (no date) (unknown) [facility]) Result panel 275 (unknown) (no date) (unknown) [facility]) Result panel 276 (unknown) (no date) (unknown) [facility]) Result panel 277 (unknown) (no date) (unknown) [facility]) Result panel 278 (unknown) (no date) (unknown) [facility]) Result panel 279 (unknown) (no date) (unknown) [facility]) Result panel 280 (unknown) (no date) (unknown) [facility]) Result panel 281 (unknown) (no date) (unknown) [facility]) Result panel 282 (unknown) (no date) (unknown) [facility]) Result panel 283 (unknown) (no date) (unknown) [facility]) Result panel 284 (unknown) (no date) (unknown) [facility]) Result panel 285 (unknown) (no date) (unknown) [facility]) Result panel 286 (unknown) (no date) (unknown) [facility]) Result panel 287 (unknown) (no date) (unknown) [facility]) Result panel 288 (unknown) (no date) (unknown) [facility]) Result panel 289 (unknown) (no date) (unknown) [facility]) Result panel 290 (unknown) (no date) (unknown) [facility]) Result panel 291 (unknown) (no date) (unknown) [facility]) Result panel 292 (unknown) (no date) (unknown) [facility]) Result panel 293 (unknown) (no date) (unknown) [facility]) Result panel 294 (unknown) (no date) (unknown) [facility]) Result panel 295 (unknown) (no date) (unknown) [facility]) Result panel 296 (unknown) (no date) (unknown) [facility]) Result panel 297 (unknown) (no date) (unknown) [facility]) Result panel 298 (unknown) (no date) (unknown) [facility]) Result panel 299 (unknown) (no date) (unknown) [facility]) Result panel 300 (unknown) (no date) (unknown) [facility]) Result panel 301 (unknown) (no date) (unknown) [facility]) Result panel 302 (unknown) (no date) (unknown) [facility]) Result panel 303 (unknown) (no date) (unknown) [facility]) Result panel 304 (unknown) (no date) (unknown) [facility]) Result panel 305 (unknown) (no date) (unknown) [facility]) Result panel 306 (unknown) (no date) (unknown) [facility]) Result panel 307 (unknown) (no date) (unknown) [facility]) Result panel 308 (unknown) (no date) (unknown) [facility]) Result panel 309 (unknown) (no date) (unknown) [facility]) Result panel 310 (unknown) (no date) (unknown) [facility]) Result panel 311 (unknown) (no date) (unknown) [facility]) Result panel 312 (unknown) (no date) (unknown) [facility]) Result panel 313 (unknown) (no date) (unknown) [facility]) Result panel 314 (unknown) (no date) (unknown) [facility]) Result panel 315 (unknown) (no date) (unknown) [facility]) Result panel 316 (unknown) (no date) (unknown) [facility]) Result panel 317 (unknown) (no date) (unknown) [facility]) Result panel 318 (unknown) (no date) (unknown) [facility]) Result panel 319 (unknown) (no date) (unknown) [facility]) Result panel 320 (unknown) (no date) (unknown) [facility]) Result panel 321 (unknown) (no date) (unknown) [facility]) Result panel 322 (unknown) (no date) (unknown) [facility]) Result panel 323 (unknown) (no date) (unknown) [facility]) Result panel 324 (unknown) (no date) (unknown) [facility]) Result panel 325 (unknown) (no date) (unknown) [facility]) Result panel 326 (unknown) (no date) (unknown) [facility]) Result panel 327 (unknown) (no date) (unknown) [facility]) Result panel 328 (unknown) (no date) (unknown) [facility]) Result panel 329 (unknown) (no date) (unknown) [facility]) Result panel 330 (unknown) (no date) (unknown) [facility]) Result panel 331 (unknown) (no date) (unknown) [facility]) Result panel 332 (unknown) (no date) (unknown) [facility]) Result panel 333 (unknown) (no date) (unknown) [facility]) Result panel 334 (unknown) (no date) (unknown) [facility]) Result panel 335 (unknown) (no date) (unknown) [facility]) Result panel 336 (unknown) (no date) (unknown) [facility]) Result panel 337 (unknown) (no date) (unknown) [facility]) Result panel 338 (unknown) (no date) (unknown) [facility]) Result panel 339 (unknown) (no date) (unknown) [facility]) Result panel 340 (unknown) (no date) (unknown) [facility]) Result panel 341 (unknown) (no date) (unknown) [facility]) Result panel 342 (unknown) (no date) (unknown) [facility]) Result panel 343 (unknown) (no date) (unknown) [facility]) Result panel 344 (unknown) (no date) (unknown) [facility]) Result panel 345 (unknown) (no date) (unknown) [facility]) Result panel 346 (unknown) (no date) (unknown) [facility]) Result panel 347 (unknown) (no date) (unknown) [facility]) Result panel 348 (unknown) (no date) (unknown) [facility]) Result panel 349 (unknown) (no date) (unknown) [facility]) Result panel 350 (unknown) (no date) (unknown) [facility]) Result panel 351 (unknown) (no date) (unknown) [facility]) Result panel 352 (unknown) (no date) (unknown) [facility]) Result panel 353 (unknown) (no date) (unknown) [facility]) Result panel 354 (unknown) (no date) (unknown) [facility]) Result panel 355 (unknown) (no date) (unknown) [facility]) Result panel 356 (unknown) (no date) (unknown) [facility]) Result panel 357 (unknown) (no date) (unknown) [facility]) Result panel 358 (unknown) (no date) (unknown) [facility]) Result panel 359 (unknown) (no date) (unknown) [facility]) Result panel 360 (unknown) (no date) (unknown) [facility]) Result panel 361 (unknown) (no date) (unknown) [facility]) Result panel 362 (unknown) (no date) (unknown) [facility]) Result panel 363 (unknown) (no date) (unknown) [facility]) Result panel 364 (unknown) (no date) (unknown) [facility]) Result panel 365 (unknown) (no date) (unknown) [facility]) Result panel 366 (unknown) (no date) (unknown) [facility]) Result panel 367 (unknown) (no date) (unknown) [facility]) Result panel 368 (unknown) (no date) (unknown) [facility]) Result panel 369 (unknown) (no date) (unknown) [facility]) Result panel 370 (unknown) (no date) (unknown) [facility]) Result panel 371 (unknown) (no date) (unknown) [facility]) Result panel 372 (unknown) (no date) (unknown) [facility]) Result panel 373 (unknown) (no date) (unknown) [facility]) Result panel 374 (unknown) (no date) (unknown) [facility]) Result panel 375 (unknown) (no date) (unknown) [facility]) Result panel 376 (unknown) (no date) (unknown) [facility]) Result panel 377 (unknown) (no date) (unknown) [facility]) Result panel 378 (unknown) (no date) (unknown) [facility]) Result panel 379 (unknown) (no date) (unknown) [facility]) Result panel 380 (unknown) (no date) (unknown) [facility]) Result panel 381 (unknown) (no date) (unknown) [facility]) Result panel 382 (unknown) (no date) (unknown) [facility]) Result panel 383 (unknown) (no date) (unknown) [facility]) Result panel 384 (unknown) (no date) (unknown) [facility]) Result panel 385 (unknown) (no date) (unknown) [facility]) Result panel 386 (unknown) (no date) (unknown) [facility]) Result panel 387 (unknown) (no date) (unknown) [facility]) Result panel 388 (unknown) (no date) (unknown) [facility]) Result panel 389 (unknown) (no date) (unknown) [facility]) Result panel 390 (unknown) (no date) (unknown) [facility]) Result panel 391 (unknown) (no date) (unknown) [facility]) Result panel 392 (unknown) (no date) (unknown) [facility]) Result panel 393 (unknown) (no date) (unknown) [facility]) Result panel 394 (unknown) (no date) (unknown) [facility]) Result panel 395 (unknown) (no date) (unknown) [facility]) Result panel 396 (unknown) (no date) (unknown) [facility]) Result panel 397 (unknown) (no date) (unknown) [facility]) Result panel 398 (unknown) (no date) (unknown) [facility]) Result panel 399 (unknown) (no date) (unknown) [facility]) Result panel 400 (unknown) (no date) (unknown) [facility]) Result panel 401 (unknown) (no date) (unknown) [facility]) Result panel 402 (unknown) (no date) (unknown) [facility]) Result panel 403 (unknown) (no date) (unknown) [facility]) Result panel 404 (unknown) (no date) (unknown) [facility]) Result panel 405 (unknown) (no date) (unknown) [facility]) Result panel 406 (unknown) (no date) (unknown) [facility]) Result panel 407 (unknown) (no date) (unknown) [facility]) Result panel 408 (unknown) (no date) (unknown) [facility]) Result panel 409 (unknown) (no date) (unknown) [facility]) Result panel 410 (unknown) (no date) (unknown) [facility]) Result panel 411 (unknown) (no date) (unknown) [facility]) Result panel 412 (unknown) (no date) (unknown) [facility]) Result panel 413 (unknown) (no date) (unknown) [facility]) Result panel 414 (unknown) (no date) (unknown) [facility]) Result panel 415 (unknown) (no date) (unknown) [facility]) Result panel 416 (unknown) (no date) (unknown) [facility]) Result panel 417 (unknown) (no date) (unknown) [facility]) Result panel 418 (unknown) (no date) (unknown) [facility]) Result panel 419 (unknown) (no date) (unknown) [facility]) Result panel 420 (unknown) (no date) (unknown) [facility]) Result panel 421 (unknown) (no date) (unknown) [facility]) Result panel 422 (unknown) (no date) (unknown) [facility]) Result panel 423 (unknown) (no date) (unknown) [facility]) Result panel 424 (unknown) (no date) (unknown) [facility]) Result panel 425 (unknown) (no date) (unknown) [facility]) Result panel 426 (unknown) (no date) (unknown) [facility]) Result panel 427 (unknown) (no date) (unknown) [facility]) Result panel 428 (unknown) (no date) (unknown) [facility]) Result panel 429 (unknown) (no date) (unknown) [facility]) Result panel 430 (unknown) (no date) (unknown) [facility]) Result panel 431 (unknown) (no date) (unknown) [facility]) Result panel 432 (unknown) (no date) (unknown) [facility]) Result panel 433 (unknown) (no date) (unknown) [facility]) Result panel 434 (unknown) (no date) (unknown) [facility]) Result panel 435 (unknown) (no date) (unknown) [facility]) Result panel 436 (unknown) (no date) (unknown) [facility]) Result panel 437 (unknown) (no date) (unknown) [facility]) Result panel 438 (unknown) (no date) (unknown) [facility]) Result panel 439 (unknown) (no date) (unknown) [facility]) Result panel 440 (unknown) (no date) (unknown) [facility]) Result panel 441 (unknown) (no date) (unknown) [facility]) Result panel 442 (unknown) (no date) (unknown) [facility]) Result panel 443 (unknown) (no date) (unknown) [facility]) Result panel 444 (unknown) (no date) (unknown) [facility]) Result panel 445 (unknown) (no date) (unknown) [facility]) Result panel 446 (unknown) (no date) (unknown) [facility]) Result panel 447 (unknown) (no date) (unknown) [facility]) Result panel 448 (unknown) (no date) (unknown) [facility]) Result panel 449 (unknown) (no date) (unknown) [facility]) Result panel 450 (unknown) (no date) (unknown) [facility] [facility]) Result panel 451 (unknown) (no date) (unknown) [facility]) Result panel 452 (unknown) (no date) (unknown) [facility]) Result panel 453 (unknown) (no date) (unknown) [facility]) Result panel 454 (unknown) (no date) (unknown) [facility]) Result panel 455 (unknown) (no date) (unknown) [facility]) Result panel 456 (unknown) (no date) (unknown) [facility] Result panel 457 (unknown) (no date) (unknown) [facility] Result panel 458 (unknown) (no date) (unknown) [facility] Result panel 459 (unknown) (no date) (unknown) [facility] Result panel 460 (unknown) (no date) (unknown) [facility] Result panel 461 (unknown) (no date) (unknown) [facility] Result panel 462 (unknown) (no date) (unknown) [facility]) Result panel 463 (unknown) (no date) (unknown) [facility] Result panel 464 (unknown) (no date) (unknown) [facility]) Result panel 465 (unknown) (no date) (unknown[facility] Result panel 466 (unknown) (no date) (unknown) [facility] Result panel 467 (unknown) (no date) (unknown) [facility] Result panel 468 (unknown) (no date) (unknown) [facility] Result panel 469 (unknown) (no date) (unknown) [facility]) Result panel 470 (unknown) (no date) (unknown) [facility] Result panel 471 (unknown) (no date) (unknown) [facility] Result panel 472 (unknown) (no date) (unknown) [facility] Result panel 473 (unknown) (no date) (unknown) [facility] Result panel 474 (unknown) (no date) (unknown) [facility] Result panel 475 (unknown) (no date) (unknown) [facility] Result panel 476 (unknown) (no date) (unknown) [facility] Result panel 477 (unknown) (no date) (unknown) [facility] Result panel 478 (unknown) (no date) (unknown) [facility] Result panel 479 (unknown) (no date) (unknown) [facility]) Result panel 480 (unknown) (no date) (unknown) [facility]) Result panel 481 (unknown) (no date) (unknown) [facility] Result panel 482 (unknown) (no date) (unknown[facility]) Result panel 483 (unknown) (no date) (unknown) [facility]) Result panel 484 (unknown) (no date) (unknown[facility]) Result panel 485 (unknown) (no date) (unknown) [facility] Result panel 486 (unknown) (no date) (unknown[facility]) Result panel 487 (unknown) (no date) (unknown) [facility] Result panel 488 (unknown) (no date) (unknown) [facility]) Result panel 489 (unknown) (no date) (unknown) [facility]) Result panel 490 (unknown) (no date) (unknown) [facility] Result panel 491 (unknown) (no date) (unknown) [facility]) Result panel 492 (unknown) (no date) (unknown) [facility] Result panel 493 (unknown) (no date) (unknown) [facility]) Result panel 494 (unknown) (no date) (unknown[facility]) Result panel 495 (unknown) (no date) (unknown) [facility]) Result panel 496 (unknown) (no date) (unknown) [facility]) Result panel 497 (unknown) (no date) (unknown) [facility] Result panel 498 (unknown) (no date) (unknown) [facility]) Result panel 499 (unknown) (no date) (unknown[facility]) Result panel 500 (unknown) (no date) (unknown) [facility]) Result panel 501 (unknown) (no date) (unknown) [facility]) Result panel 502 (unknown) (no date) (unknown[facility]) Result panel 503 (unknown) (no date) (unknown[facility]) Result panel 504 (unknown) (no date) (unknown) [facility]) Result panel 505 (unknown) (no date) (unknown[facility]) Result panel 506 (unknown) (no date) (unknown) [facility]) Result panel 507 (unknown) (no date) (unknown[facility]) Result panel 508 (unknown) (no date) (unknown) [facility] Result panel 509 (unknown) (no date) (unknown[facility]) Result panel 510 (unknown) (no date) (unknown) [facility]) Result panel 511 (unknown) (no date) (unknown) [facility]) Result panel 512 (unknown) (no date) (unknown) [facility]) Result panel 513 (unknown) (no date) (unknown) [facility]) Result panel 514 (unknown) (no date) (unknown) [facility]) Result panel 515 (unknown) (no date) (unknown) [facility]) Result panel 516 (unknown) (no date) (unknown) [facility]) Result panel 517 (unknown) (no date) (unknown) [facility]) Result panel 518 (unknown) (no date) (unknown) [facility] Result panel 519 (unknown) (no date) (unknown) [facility]) Result panel 520 (unknown) (no date) (unknown[facility]) Result panel 521 (unknown) (no date) (unknown) [facility]) Result panel 522 (unknown) (no date) (unknown) [facility]) Result panel 523 (unknown) (no date) (unknown[facility]) Result panel 524 (unknown) (no date) (unknown[facility]) Result panel 525 (unknown) (no date) (unknown) [facility]) Result panel 526 (unknown) (no date) (unknown) [facility]) Result panel 527 (unknown) (no date) (unknown[facility]) Result panel 528 (unknown) (no date) (unknown) [facility]) Result panel 529 (unknown) (no date) (unknown[facility]) Result panel 530 (unknown) (no date) (unknown) [facility]) Result panel 531 (unknown) (no date) (unknown) [facility]) Result panel 532 (unknown) (no date) (unknown) [facility]) Result panel 533 (unknown) (no date) (unknown[facility]) Result panel 534 (unknown) (no date) (unknown) [facility]) Result panel 535 (unknown) (no date) (unknown) [facility]) Result panel 536 (unknown) (no date) (unknown) [facility]) Result panel 537 (unknown) (no date) (unknown) [facility]) Result panel 538 (unknown) (no date) (unknown) [facility]) Result panel 539 (unknown) (no date) (unknown) [facility]) Result panel 540 (unknown) (no date) (unknown[facility]) Result panel 541 (unknown) (no date) (unknown) [facility]) Result panel 542 (unknown) (no date) (unknown) [facility]) Result panel 543 (unknown) (no date) (unknown) [facility]) Result panel 544 (unknown) (no date) (unknown) [facility]) Result panel 545 (unknown) (no date) (unknown) [facility]) Result panel 546 (unknown) (no date) (unknown) [facility]) Result panel 547 (unknown) (no date) (unknown) [facility]) Result panel 548 (unknown) (no date) (unknown) [facility]) Result panel 549 (unknown) (no date) (unknown) [facility]) Result panel 550 (unknown) (no date) (unknown) [facility]) Result panel 551 (unknown) (no date) (unknown) [facility]) Result panel 552 (unknown) (no date) (unknown) [facility]) Result panel 553 (unknown) (no date) (unknown[facility]) Result panel 554 (unknown) (no date) (unknown) [facility]) Result panel 555 (unknown) (no date) (unknown) [facility]) Result panel 556 (unknown) (no date) (unknown) [facility]) Result panel 557 (unknown) (no date) (unknown) [facility]) Result panel 558 (unknown) (no date) (unknown) [facility]) Result panel 559 (unknown) (no date) (unknown) [facility]) Result panel 560 (unknown) (no date) (unknown) [facility]) Result panel 561 (unknown) (no date) (unknown[facility]) Result panel 562 (unknown) (no date) (unknown) [facility]) Result panel 563 (unknown) (no date) (unknown) [facility]) Result panel 564 (unknown) (no date) (unknown) [facility]) Result panel 565 (unknown) (no date) (unknown) [facility]) Result panel 566 (unknown) (no date) (unknown) [facility]) Result panel 567 (unknown) (no date) (unknown) [facility]) Result panel 568 (unknown) (no date) (unknown) [facility]) Result panel 569 (unknown) (no date) (unknown) [facility]) Result panel 570 (unknown) (no date) (unknown) [facility]) Result panel 571 (unknown) (no date) (unknown) [facility]) Result panel 572 (unknown) (no date) (unknown) [facility]) Result panel 573 (unknown) (no date) (unknown) [facility]) Result panel 574 (unknown) (no date) (unknown[facility]) Result panel 575 (unknown) (no date) (unknown) [facility]) Result panel 576 (unknown) (no date) (unknown) [facility]) Result panel 577 (unknown) (no date) (unknown) [facility]) Result panel 578 (unknown) (no date) (unknown) [facility]) Result panel 579 (unknown) (no date) (unknown) [facility]) Result panel 580 (unknown) (no date) (unknown) [facility]) Result panel 581 (unknown) (no date) (unknown) [facility]) Result panel 582 (unknown) (no date) (unknown) [facility]) Result panel 583 (unknown) (no date) (unknown) [facility]) Result panel 584 (unknown) (no date) (unknown) [facility]) Result panel 585 (unknown) (no date) (unknown) [facility]) Result panel 586 (unknown) (no date) (unknown) [facility]) Result panel 587 (unknown) (no date) (unknown) [facility]) Result panel 588 (unknown) (no date) (unknown) [facility]) Result panel 589 (unknown) (no date) (unknown) [facility]) Result panel 590 (unknown) (no date) (unknown) [facility]) Result panel 591 (unknown) (no date) (unknown) [facility]) Result panel 592 (unknown) (no date) (unknown) [facility]) Result panel 593 (unknown) (no date) (unknown) [facility]) Result panel 594 (unknown) (no date) (unknown) [facility]) Result panel 595 (unknown) (no date) (unknown) [facility]) Result panel 596 (unknown) (no date) (unknown) [facility]) Result panel 597 (unknown) (no date) (unknown) [facility]) Result panel 598 (unknown) (no date) (unknown) [facility]) Result panel 599 (unknown) (no date) (unknown) [facility]) Result panel 600 (unknown) (no date) (unknown) [facility]) Result panel 601 (unknown) (no date) (unknown) [facility]) Result panel 602 (unknown) (no date) (unknown) [facility]) Result panel 603 (unknown) (no date) (unknown) [facility]) Result panel 604 (unknown) (no date) (unknown) [facility]) Result panel 605 (unknown) (no date) (unknown) [facility]) Result panel 606 (unknown) (no date) (unknown) [facility]) Result panel 607 (unknown) (no date) (unknown) [facility]) Result panel 608 (unknown) (no date) (unknown) [facility]) Result panel 609 (unknown) (no date) (unknown) [facility]) Result panel 610 (unknown) (no date) (unknown) [facility]) Result panel 611 (unknown) (no date) (unknown) [facility]) Result panel 612 (unknown) (no date) (unknown) [facility]) Result panel 613 (unknown) (no date) (unknown) [facility]) Result panel 614 (unknown) (no date) (unknown) [facility]) Result panel 615 (unknown) (no date) (unknown) [facility]) Result panel 616 (unknown) (no date) (unknown) [facility]) Result panel 617 (unknown) (no date) (unknown) [facility]) Result panel 618 (unknown) (no date) (unknown) [facility]) Result panel 619 (unknown) (no date) (unknown) [facility]) Result panel 620 (unknown) (no date) (unknown) [facility]) Result panel 621 (unknown) (no date) (unknown) [facility]) Result panel 622 (unknown) (no date) (unknown) [facility]) Result panel 623 (unknown) (no date) (unknown) [facility]) Result panel 624 (unknown) (no date) (unknown) [facility]) Result panel 625 (unknown) (no date) (unknown) [facility]) Result panel 626 (unknown) (no date) (unknown) [facility]) Result panel 627 (unknown) (no date) (unknown) [facility]) Result panel 628 (unknown) (no date) (unknown) [facility]) Result panel 629 (unknown) (no date) (unknown) [facility]) Result panel 630 (unknown) (no date) (unknown) [facility]) Result panel 631 (unknown) (no date) (unknown) [facility]) Result panel 632 (unknown) (no date) (unknown) [facility]) Result panel 633 (unknown) (no date) (unknown) [facility]) Result panel 634 (unknown) (no date) (unknown) [facility]) Result panel 635 (unknown) (no date) (unknown) [facility]) Result panel 636 (unknown) (no date) (unknown) [facility]) Result panel 637 (unknown) (no date) (unknown) [facility]) Result panel 638 (unknown) (no date) (unknown) [facility]) Result panel 639 (unknown) (no date) (unknown) [facility]) Result panel 640 (unknown) (no date) (unknown) [facility]) Result panel 641 (unknown) (no date) (unknown) [facility]) Result panel 642 (unknown) (no date) (unknown) [facility]) Result panel 643 (unknown) (no date) (unknown) [facility]) Result panel 644 (unknown) (no date) (unknown) [facility]) Result panel 645 (unknown) (no date) (unknown) [facility]) Result panel 646 (unknown) (no date) (unknown) [facility]) Result panel 647 (unknown) (no date) (unknown) [facility]) Result panel 648 (unknown) (no date) (unknown) [place] [facility] value[facility] unknown) Result panel 649 (unknown) (no (unknown) (unknown) (no value) (units (unk nown) date) unknown) (unknown) (no (unknown) (unknown) 1. New (units (unkno wn) date) endotracheal tube unknown) tip approximately 6.5 cm from the matthew. Consider (unknown) (no (unknown) (unknown) 07/05/22 (units (unkno wn) date) unknown) (unknown) (no (unknown) (unknown) [address] [place] [address] (units (unknown) date) unknown) (unknown) (no (unknown) (unknown) 2. Pulmonary (units (u nknown) date) vascular unknown) prominence suggestive of mild edema. (unknown) (no (unknown) (unknown) [id number] (units (unkno wn) date) unknown) (unknown) (no (unknown) (unknown) Accession (units (unkn own) date) Number: unknown) [id number] (unknown) (no (unknown) (unknown) Age/Sex: 46 / F (units (unknown) date) Date of Service: unknown) (unknown) (no (unknown) (unknown) [place], [place] (units ( unknown) date) [id number] unknown) (unknown) (no (unknown) (unknown) Approved by: (units (u nknown) date) Star Ruiz, unknown) Cathy on 07/05/2022 at 21:25 (unknown) (no (unknown) (unknown) Bones and chest (units (unknown) date) wall: No unknown) suspicious bony lesions. Overlying soft tissues (unknown) (no (unknown) (unknown) COMPARISON: (units (un known) date) [facility], unknown) CR, XR CHEST 1V, 03/20/2022, 9:02. (unknown) (no (unknown) (unknown) : 1975 (units (unknown) date) Acct:[id number] unknown) (unknown) (no (unknown) (unknown) Dictated by: (units (u nknown) date) Star Ruiz unknownLiz Morgan on 07/05/2022 at 21:20 (unknown) (no (unknown) (unknown) FINDINGS: (units (unkn own) date) unknown) (unknown) (no (unknown) (unknown) IMPRESSION: (units (un known) date) unknown) (unknown) (no (unknown) (unknown) INDICATIONS: (units (u nknown) date) intubation unknown) (unknown) (no (unknown) (unknown) [facility] (units (unknown) date) unknown) (unknown) (no (unknown) (unknown) Loc: ED (units (unkno wn) date) unknown) (unknown) (no (unknown) (unknown) Lungs and (units (unkn own) date) pleura: There is unknown) pulmonary vascular prominence suggestive of mild (unknown) (no (unknown) (unknown) Mediastinum: (units (u nknown) date) Mediastinal unknown) contours appear normal. Heart size is normal. (unknown) (no (unknown) (unknown) Ordering (units (unkno wn) date) Provider: unknown) Leslie Torres MD (unknown) (no (unknown) (unknown) PROCEDURE: XR (units ( unknown) date) CHEST 1V unknown) (unknown) (no (unknown) (unknown) Patient: (units (unkno wn) date) Dameon Caputo unknown) MR#: [id number] (unknown) (no (unknown) (unknown) Procedure: XR (units ( unknown) date) chest 1V unknown) (unknown) (no (unknown) (unknown) Signed (units (unkno wn) date) unknown) (unknown) (no (unknown) (unknown) Surgical changes (units (unknown) date) and devices: unknown) There is a new endotracheal tube with the tip (unknown) (no (unknown) (unknown) TECHNIQUE: One (units (unknown) date) view of the chest unknown) was acquired. (unknown) (no (unknown) (unknown) XRay Report (units (un known) date) unknown) (unknown) (no (unknown) (unknown) advancement (units (un known) date) unknown) (unknown) (no (unknown) (unknown) appear (units (unkno wn) date) unknown) (unknown) (no (unknown) (unknown) approximately (units ( unknown) date) 6.5 cm from the unknown) matthew. A right internal jugular catheter is (unknown) (no (unknown) (unknown) by approximately (units (unknown) date) 2 cm. unknown) (unknown) (no (unknown) (unknown) edema. No (units (unkn own) date) unknown) (unknown) (no (unknown) (unknown) extending into (units (unknown) date) unknown) (unknown) (no (unknown) (unknown) pleural (units (unkno wn) date) effusions or unknown) pneumothorax. (unknown) (no (unknown) (unknown) present with (units (u nknown) date) unknown) (unknown) (no (unknown) (unknown) study. (units (unkno wn) date) unknown) (unknown) (no (unknown) (unknown) the stomach is (units (unknown) date) also demonstrated unknown) with the tip not included on the current (unknown) (no (unknown) (unknown) the tip (units (unkno wn) date) projecting over unknown) the superior vena cava. A new nasogastric tube (unknown) (no (unknown) (unknown) unremarkable. (units ( unknown) date) unknown) Result panel 650 (unknown) (no date) (unknown) (unknown) Negative (units (unkn own) unknown) (unknown) (no date) (unknown) (unknown) Normal (units (unkn own) unknown) (unknown) (no date) (unknown) (unknown) Positive (units (unkn own) unknown) Result panel 651 (unknown) (no date) (unknown) (unknown) 0.2 e.u./dl (unkn own) (unknown) (no date) (unknown) (unknown) 1 (units (unkn own) unknown) (unknown) (no date) (unknown) (unknown) 1 g/dl (unkn own) (unknown) (no date) (unknown) (unknown) 1.010 (units (unkn own) unknown) (unknown) (no date) (unknown) (unknown) 7.0 (units (unkn own) unknown) (unknown) (no date) (unknown) (unknown) CLEAR (units (unkn own) unknown) (unknown) (no date) (unknown) (unknown) NEGATIVE (units (unkn own) unknown) (unknown) (no date) (unknown) (unknown) TRACE-LYSED (units (u nknown) unknown) (unknown) (no date) (unknown) (unknown) YELLOW (units (unkn own) unknown) (unknown) (no date) (unknown) (unknown) YELLOW (units (unkn own) unknown) Result panel 652 (unknown) (no (unknown) (unknown) (no value) (units (unk nown) date) unknown) (unknown) (no (unknown) (unknown) 100 mg PO DAILY (units (unknown) date) Qty: 90 0RF unknown) (unknown) (no (unknown) (unknown) 07/05/22 18:37 (units (unknown) date) unknown) (unknown) (no (unknown) (unknown) 07/05/22 20:26 (units (unknown) date) unknown) (unknown) (no (unknown) (unknown) 07/05/22 20:35 (units (unknown) date) unknown) (unknown) (no (unknown) (unknown) 07/05/22 20:48 (units (unknown) date) unknown) (unknown) (no (unknown) (unknown) 07/05/22 (units (unkno wn) date) unknown) (unknown) (no (unknown) (unknown) 18:19 07/05/22 (units (unknown) date) unknown) (unknown) (no (unknown) (unknown) 18:30 (units (unkno wn) date) unknown) (unknown) (no (unknown) (unknown) 25 mg PO DAILY Qty: (unit s (unknown) date) 90 0RF unknown) (unknown) (no (unknown) (unknown) [id number] (units (unkno wn) date) unknown) (unknown) (no (unknown) (unknown) 40 meq PO DAILY (units (unknown) date) Qty: 90 0RF unknown) (unknown) (no (unknown) (unknown) ABLE TO (units (unkno wn) date) unknown) (unknown) (no (unknown) (unknown) ABO RH Type Stat (units (unknown) date) unknown) (unknown) (no (unknown) (unknown) Abscess (units (unkno wn) date) unknown) (unknown) (no (unknown) (unknown) Admin: 07/05/22 (units (unknown) date) 18:38 Dose: 1,000 unknown) mls/hr (unknown) (no (unknown) (unknown) Admin: 07/05/22 (units (unknown) date) 18:46 Dose: 200 unknown) mls/hr (unknown) (no (unknown) (unknown) Age/Sex: 46 / F (units (unknown) date) unknown) (unknown) (no (unknown) (unknown) Alcohol type: wine (units (unknown) date) unknown) (unknown) (no (unknown) (unknown) Allergies (units (unkn own) date) unknown) (unknown) (no (unknown) (unknown) Allergy/AdvReac (units (unknown) date) Type Severity unknown) Reaction Status Date / Time (unknown) (no (unknown) (unknown) Bedside Urine (units ( unknown) date) Bilirubin - Negative unknown) (unknown) (no (unknown) (unknown) Bedside Urine (units ( unknown) date) Glucose 250 mg/dl unknown) (unknown) (no (unknown) (unknown) Bedside Urine (units ( unknown) date) Ketone +/- 5 unknown) (unknown) (no (unknown) (unknown) Bedside Urine (units ( unknown) date) Leukocytes - unknown) Negative (unknown) (no (unknown) (unknown) Bedside Urine (units ( unknown) date) Nitrite - Negative unknown) (unknown) (no (unknown) (unknown) Bedside Urine (units ( unknown) date) Occult Blood +/ unknown) (unknown) (no (unknown) (unknown) Bedside Urine (units ( unknown) date) Protein + 30 unknown) (unknown) (no (unknown) (unknown) Bedside Urine pH (units (unknown) date) 6.0 unknown) (unknown) (no (unknown) (unknown) Blood Pressure (units (unknown) date) 213/111 H unknown) (unknown) (no (unknown) (unknown) Chief complaint: (units (unknown) date) Allergic Reaction unknown) (unknown) (no (unknown) (unknown) Chronic abdominal (units (unknown) date) pain unknown) (unknown) (no (unknown) (unknown) Complete Blood (units (unknown) date) Count AUTO DIFF Stat unknown) (unknown) (no (unknown) (unknown) Comprehensive (units ( unknown) date) Metabolic Panel Stat unknown) (unknown) (no (unknown) (unknown) Course (units (unkno wn) date) unknown) (unknown) (no (unknown) (unknown) Cyclic vomiting (units (unknown) date) syndrome unknown) (unknown) (no (unknown) (unknown) : 1975 (units (unknown) date) Acct:[id number] unknown) (unknown) (no (unknown) (unknown) Date of Service: (units (unknown) date) 07/05/22 unknown) (unknown) (no (unknown) (unknown) Daughter (units (unkno wn) date) Angio-edema unknown) (unknown) (no (unknown) (unknown) Departure (units (unkn own) date) unknown) (unknown) (no (unknown) (unknown) Diltiazem HCl (units ( unknown) date) (Diltiazem 5 Mg/Ml unknown) Sdv) 20 mg IV NOW ONE (unknown) (no (unknown) (unknown) Diphenhydramine HCl (unit s (unknown) date) (Diphenhydramine 50 unknown) Mg/Ml Vial) 50 mg IM NOW ONE (unknown) (no (unknown) (unknown) Diphenhydramine HCl (unit s (unknown) date) (Diphenhydramine 50 unknown) Mg/Ml Vial) 50 mg IV NOW ONE (unknown) (no (unknown) (unknown) Discharge Plan (units (unknown) date) unknown) (unknown) (no (unknown) (unknown) Discontinued (units (u nknown) date) Medications unknown) (unknown) (no (unknown) (unknown) Documented By: DKB (units (unknown) date) unknown) (unknown) (no (unknown) (unknown) Documented By: KM (units (unknown) date) unknown) (unknown) (no (unknown) (unknown) ED Orders (units (unkn own) date) unknown) (unknown) (no (unknown) (unknown) ER Physician: (units ( unknown) date) Leslie Torres MD unknown) (unknown) (no (unknown) (unknown) Emergency Report (units (unknown) date) unknown) (unknown) (no (unknown) (unknown) Epinephrine HCl (units (unknown) date) (Epinephrine 1 unknown) Mg/Ml) 0.5 mg IM NOW ONE (unknown) (no (unknown) (unknown) Epinephrine HCl 4 (units (unknown) date) mg/ Dextrose 250 mls unknown) @ 3.75 mls/hr IV TITRATE KIRIT; Protocol (unknown) (no (unknown) (unknown) Esterase (units (unkno wn) date) unknown) (unknown) (no (unknown) (unknown) Exam (units (unkno wn) date) unknown) (unknown) (no (unknown) (unknown) FFP [Fresh Frozen (units (unknown) date) Plasma] Stat unknown) (unknown) (no (unknown) (unknown) Family History (units (unknown) date) (Reviewed 04/13/22 @ unknown) 09:52 by Mine Harrington DO) (unknown) (no (unknown) (unknown) Family history of (units (unknown) date) angioedema unknown) (unknown) (no (unknown) (unknown) Famotidine (units (unk nown) date) (Famotidine 20 Mg/2 unknown) Ml Vial) 40 mg IV DAILY ONE (unknown) (no (unknown) (unknown) Father Hypertension (unit s (unknown) date) unknown) (unknown) (no (unknown) (unknown) Fentanyl 1,000 mcg/ (unit s (unknown) date) Dextrose 250 mls @ unknown) 11.113 mls/hr IV TITRATE KIRIT; Protocol (unknown) (no (unknown) (unknown) General (units (unkno wn) date) unknown) (unknown) (no (unknown) (unknown) HPI - Allergic (units (unknown) date) Reaction unknown) (unknown) (no (unknown) (unknown) Hx of appendectomy (units (unknown) date) unknown) (unknown) (no (unknown) (unknown) Hx of (units (unkno wn) date) cholecystectomy unknown) (unknown) (no (unknown) (unknown) Initial Vital Signs (unit s (unknown) date) unknown) (unknown) (no (unknown) (unknown) Initial Vital (units ( unknown) date) Signs: unknown) (unknown) (no (unknown) (unknown) [facility] (units (unknown) date) [address] unknown) [place] [address] (unknown) (no (unknown) (unknown) Sergo Martino MD (units (unknown) date) [Primary Care unknown) Provider] (unknown) (no (unknown) (unknown) Lab Data (units (unkno wn) date) unknown) (unknown) (no (unknown) (unknown) Labs: (units (unkno wn) date) unknown) (unknown) (no (unknown) (unknown) Last Admin: (units (un known) date) 07/05/22 18:38 Dose: unknown) 125 mg (unknown) (no (unknown) (unknown) Last Admin: (units (un known) date) 07/05/22 18:38 Dose: unknown) 40 mg (unknown) (no (unknown) (unknown) Last Admin: (units (un known) date) 07/05/22 18:39 Dose: unknown) 0.5 mg (unknown) (no (unknown) (unknown) Last Admin: (units (un known) date) 07/05/22 18:40 Dose: unknown) 50 mg (unknown) (no (unknown) (unknown) Last Admin: (units (un known) date) 07/05/22 18:43 Dose: unknown) Not Given (unknown) (no (unknown) (unknown) Last Admin: (units (un known) date) 07/05/22 18:53 Dose: unknown) 0.5 mg (unknown) (no (unknown) (unknown) Last Admin: (units (un known) date) 07/05/22 19:39 Dose: unknown) 1,000 mls/hr (unknown) (no (unknown) (unknown) Last Infusion: (units (unknown) date) 07/05/22 19:24 Dose: unknown) 0 mls/hr (unknown) (no (unknown) (unknown) Last Infusion: (units (unknown) date) 07/05/22 19:40 Dose: unknown) 0 mls/hr (unknown) (no (unknown) (unknown) Lorazepam (units (unkn own) date) (Lorazepam 2 Mg/Ml unknown) Inj) 0.5 mg IV NOW ONE (unknown) (no (unknown) (unknown) MDM - Allergic (units (unknown) date) Reaction unknown) (unknown) (no (unknown) (unknown) 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 (unknown) (no (unknown) (unknown) Marijuana use, (units (unknown) date) continuous unknown) (unknown) (no (unknown) (unknown) Medical History (units (unknown) date) (Reviewed 04/13/22 @ unknown) 09:52 by Mine Harrington DO) (unknown) (no (unknown) (unknown) Medication (units (unk nown) date) Instructions unknown) Recorded (unknown) (no (unknown) (unknown) Methylprednisolone (units (unknown) date) (Methylprednisolone unknown) 125 Mg/2 Ml Vial) 125 mg IV NOW ONE (unknown) (no (unknown) (unknown) Midazolam HCl (units ( unknown) date) (Midazolam 5 Mg/Ml unknown) Vial) 4 mg IV NOW ONE (unknown) (no (unknown) (unknown) Mode of arrival: (units (unknown) date) Ambulatory unknown) (unknown) (no (unknown) (unknown) Mother Diabetes [...] (unknown) Oxygen Delivery (units (unknown) date) Method 07/05/22 unknown) 18:19 (unknown) (no (unknown) (unknown) Oxygen Delivery (units (unknown) date) Method Room Air Room unknown) Air (unknown) (no (unknown) (unknown) PRN Reason: (units (un known) date) Sedation unknown) (unknown) (no (unknown) (unknown) PT STATES (units (unkn own) date) unknown) (unknown) (no (unknown) (unknown) Pancreatitis (units (u nknown) date) unknown) (unknown) (no (unknown) (unknown) Patient History (units (unknown) date) unknown) (unknown) (no (unknown) (unknown) Patient: (units (unkno wn) date) Dameon Caputo MR#: unknown) [id number] (unknown) (no (unknown) (unknown) Point of Care (units ( unknown) date) Testing unknown) (unknown) (no (unknown) (unknown) Test (units (unknown) date) Results Negative unknown) (unknown) (no (unknown) (unknown) Prescriptions: (units (unknown) date) unknown) (unknown) (no (unknown) (unknown) Previous Rx's (units ( unknown) date) unknown) (unknown) (no (unknown) (unknown) Propofol (Propofol (units (unknown) date) 200 Mg/20 Ml Vial) unknown) 80 mg IV Q10MIN PRN (unknown) (no (unknown) (unknown) Propofol (Propofol) (unit s (unknown) date) 1,000 mg in 100 mls unknown) @ 1.905 mls/hr IV TITRATE KIRIT; Protocol (unknown) (no (unknown) (unknown) Pulse Oximetry 98 (units (unknown) date) 07/05/22 18:19 unknown) (unknown) (no (unknown) (unknown) Pulse Oximetry 98 (units (unknown) date) 98 unknown) (unknown) (no (unknown) (unknown) Pulse Rate 96 H (units (unknown) date) 07/05/22 18:19 unknown) (unknown) (no (unknown) (unknown) Pulse Rate 96 H 75 (units (unknown) date) unknown) (unknown) (no (unknown) (unknown) Referrals: (units (unk nown) date) unknown) (unknown) (no (unknown) (unknown) Related Data (units (u nknown) date) unknown) (unknown) (no (unknown) (unknown) Respiratory Rate 18 (unit s (unknown) date) 07/05/22 18:19 unknown) (unknown) (no (unknown) (unknown) Respiratory Rate 18 (unit s (unknown) date) unknown) (unknown) (no (unknown) (unknown) Signed By: (units (unk nown) date) unknown) (unknown) (no (unknown) (unknown) Smoking Status: (units (unknown) date) Current every day unknown) smoker (unknown) (no (unknown) (unknown) Social History (units (unknown) date) (Reviewed 04/13/22 @ unknown) 09:52 by Mine Harrington DO) (unknown) (no (unknown) (unknown) Sodium Chloride (units (unknown) date) (Normal Saline 0.9%) unknown) 1,000 mls @ 1,000 mls/hr IV BOLUS ONE (unknown) (no (unknown) (unknown) Source: patient (units (unknown) date) unknown) (unknown) (no (unknown) (unknown) Stated complaint: (units (unknown) date) Keeps biting tongue, unknown) Jaw clenched (unknown) (no (unknown) (unknown) Stop: 07/05/22 (units (unknown) date) 18:25 unknown) (unknown) (no (unknown) (unknown) Stop: 07/05/22 (units (unknown) date) 18:26 unknown) (unknown) (no (unknown) (unknown) Stop: 07/05/22 (units (unknown) date) 18:29 unknown) (unknown) (no (unknown) (unknown) Stop: 07/05/22 (units (unknown) date) 18:48 unknown) (unknown) (no (unknown) (unknown) Stop: 07/05/22 (units (unknown) date) 19:05 unknown) (unknown) (no (unknown) (unknown) Stop: 07/05/22 (units (unknown) date) 19:25 unknown) (unknown) (no (unknown) (unknown) Stop: 07/05/22 (units (unknown) date) 19:35 unknown) (unknown) (no (unknown) (unknown) Stop: 07/05/22 (units (unknown) date) 21:03 unknown) (unknown) (no (unknown) (unknown) Substance Use Type: (unit s (unknown) date) former substance unknown) user, marijuana, crack/cocaine and (unknown) (no (unknown) (unknown) Surgical History (units (unknown) date) (Reviewed 04/13/22 @ unknown) 09:52 by Mine Harrington DO) (unknown) (no (unknown) (unknown) TAKE WV (units (unkno wn) date) unknown) (unknown) (no (unknown) (unknown) TO IV SITE (units (unk nown) date) unknown) (unknown) (no (unknown) (unknown) Time Seen by (units (u nknown) date) Provider: 07/05/22 unknown) 18:10 (unknown) (no (unknown) (unknown) Tranexamic Acid (units (unknown) date) 1,000 mg/ (Sodium unknown) Chloride) 100 mls @ 200 mls/hr IV NOW ONE (unknown) (no (unknown) (unknown) UA Complete (units (un known) date) [Urinalysis and unknown) Microscopic] Stat (unknown) (no (unknown) (unknown) Urine Dip (units (unkn own) date) unknown) (unknown) (no (unknown) (unknown) Urine Drug Screen, (units (unknown) date) Rapid Stat unknown) (unknown) (no (unknown) (unknown) Urine Specific (units (unknown) date) [place] 1.020 unknown) (unknown) (no (unknown) (unknown) Vital Signs - 8 hr (units (unknown) date) unknown) (unknown) (no (unknown) (unknown) Vital Signs (units (un known) date) unknown) (unknown) (no (unknown) (unknown) Vital signs: (units (u nknown) date) unknown) (unknown) (no (unknown) (unknown) XR chest 1V Stat (units (unknown) date) unknown) (unknown) (no (unknown) (unknown) [METOCLOPRAMIDE] (units (unknown) date) unknown) (unknown) (no (unknown) (unknown) alcohol intake (units (unknown) date) frequency: 3 or more unknown) drinks per day (unknown) (no (unknown) (unknown) alcohol intake: (units (unknown) date) current unknown) (unknown) (no (unknown) (unknown) bupropion HCl 100 (units (unknown) date) mg tablet unknown) sustained-release 12 hr (unknown) (no (unknown) (unknown) bupropion HCl 100 (units (unknown) date) mg tablet,12 hr 100 unknown) mg PO DAILY #90 ea 04/14/22 (unknown) (no (unknown) (unknown) household members: (units (unknown) date) spouse unknown) (unknown) (no (unknown) (unknown) latex [LATEX] (units ( unknown) date) Allergy Unknown unknown) Verified 04/13/22 09:42 (unknown) (no (unknown) (unknown) methamphetamine (units (unknown) date) unknown) (unknown) (no (unknown) (unknown) metoclopramide (units (unknown) date) AdvReac Unknown unknown) DYSTONIA Verified 04/13/22 09:42 (unknown) (no (unknown) (unknown) potassium chloride (units (unknown) date) 20 mEq 40 meq PO unknown) DAILY #90 tabs 04/14/22 (unknown) (no (unknown) (unknown) potassium chloride (units (unknown) date) 20 mEq tablet unknown) extended release (unknown) (no (unknown) (unknown) promethazine (units (u nknown) date) [PROMETHAZINE] unknown) Allergy Mild ERYTHEMA Verified 04/13/22 09:42 (unknown) (no (unknown) (unknown) spironolactone 25 (units (unknown) date) mg tablet 25 mg PO unknown) DAILY #90 tabs 04/14/22 (unknown) (no (unknown) (unknown) spironolactone 25 (units (unknown) date) mg tablet unknown) (unknown) (no (unknown) (unknown) sustained-release (units (unknown) date) unknown) (unknown) (no (unknown) (unknown) tablet,extended (units (unknown) date) release unknown) (unknown) (no (unknown) (unknown) tobacco type: (units ( unknown) date) cigarettes and unknown) vaping Result panel 653 (unknown) (no date) (unknown) (unknown) 0-1 /HPF (units (unkn own) unknown) (unknown) (no date) (unknown) (unknown) 0-1/HPF (units (unkn own) unknown) (unknown) (no date) (unknown) (unknown) 0.2 e.u./dl (unkn own) (unknown) (no date) (unknown) (unknown) 1 (units (unkn own) unknown) (unknown) (no date) (unknown) (unknown) 1 g/dl (unkn own) (unknown) (no date) (unknown) (unknown) 1.010 (units (unkn own) unknown) (unknown) (no date) (unknown) (unknown) 7.0 (units (unkn own) unknown) (unknown) (no date) (unknown) (unknown) CLEAR (units (unkn own) unknown) (unknown) (no date) (unknown) (unknown) Cult Not (units (unkn own) Indicated unknown) (unknown) (no date) (unknown) (unknown) NEGATIVE (units (unkn own) unknown) (unknown) (no date) (unknown) (unknown) None Seen (units (unk nown) unknown) (unknown) (no date) (unknown) (unknown) None Seen (units (unk nown) unknown) (unknown) (no date) (unknown) (unknown) TRACE-LYSED (units (u nknown) unknown) (unknown) (no date) (unknown) (unknown) YELLOW (units (unkn own) unknown) (unknown) (no date) (unknown) (unknown) YELLOW (units (unkn own) unknown) Result panel 654 (unknown) (no date) (unknown) (unknown) 0 /ul (unkn own) (unknown) (no date) (unknown) (unknown) 0.1 % (unkn own) (unknown) (no date) (unknown) (unknown) 0.5 % (unkn own) (unknown) (no date) (unknown) (unknown) 1.1 % (unkn own) (unknown) (no date) (unknown) (unknown) 100 /ul (unkn own) (unknown) (no date) (unknown) (unknown) 100 /ul (unkn own) (unknown) (no date) (unknown) (unknown) [address] /ul (unkn own) (unknown) (no date) (unknown) (unknown) 11.1 x10 3/ul (unkn own) (unknown) (no date) (unknown) (unknown) 12.3 g/dl (unkn own) (unknown) (no date) (unknown) (unknown) 13.2 % (unkn own) (unknown) (no date) (unknown) (unknown) 238 x10 3/ul (unkn own) (unknown) (no date) (unknown) (unknown) 3.9 % (unkn own) (unknown) (no date) (unknown) (unknown) 3.93 x10 6/ul (unkn own) (unknown) (no date) (unknown) (unknown) 31.3 pg (unkn own) (unknown) (no date) (unknown) (unknown) 33.0 % (unkn own) (unknown) (no date) (unknown) (unknown) 37.3 % (unkn own) (unknown) (no date) (unknown) (unknown) 400 /ul (unkn own) (unknown) (no date) (unknown) (unknown) 94.4 % (unkn own) (unknown) (no date) (unknown) (unknown) 94.9 fl (unkn own) Result panel 655 (unknown) (no date) (unknown) (unknown) > 60 ml/min (unkn own) (unknown) (no date) (unknown) (unknown) > 60 ml/min (unkn own) (unknown) (no date) (unknown) (unknown) 0.5 mg/dl (unkn own) (unknown) (no date) (unknown) (unknown) 0.72 mg/dl (unkn own) (unknown) (no date) (unknown) (unknown) 1.2 (units unknown) (unknown) (unknown) (no date) (unknown) (unknown) 106 mmol/l (unkn own) (unknown) (no date) (unknown) (unknown) 143 mmol/l (unkn own) (unknown) (no date) (unknown) (unknown) 24 mmol/l (unkn own) (unknown) (no date) (unknown) (unknown) 296 mg/dl (unkn own) (unknown) (no date) (unknown) (unknown) 296 mg/dl (unkn own) (unknown) (no date) (unknown) (unknown) 3.5 g/dl (unkn own) (unknown) (no date) (unknown) (unknown) 3.5 mmol/l (unkn own) (unknown) (no date) (unknown) (unknown) 32 iu/l (unkn own) (unknown) (no date) (unknown) (unknown) 4.2 g/dl (unkn own) (unknown) (no date) (unknown) (unknown) 65 iu/l (unkn own) (unknown) (no date) (unknown) (unknown) 7 mg/dl (unkn own) (unknown) (no date) (unknown) (unknown) 7.7 g/dl (unkn own) (unknown) (no date) (unknown) (unknown) 78 u/l (unkn own) (unknown) (no date) (unknown) (unknown) 8.0 mg/dl (unkn own) (unknown) (no date) (unknown) (unknown) 9.7 (units unknown) (unknown) Result panel 656 (unknown) (no (unknown) (unknown) (no value) (units (unk nown) date) unknown) (unknown) (no (unknown) (unknown) (past 8 hours): (units (unknown) date) unknown) (unknown) (no (unknown) (unknown) -continued to (units ( unknown) date) worsen respiratory unknown) status resulted in intubation and epinephrine (unknown) (no (unknown) (unknown) -hold (units (unkno wn) date) spironolacatone for unknown) now (unknown) (no (unknown) (unknown) -hold well-butrin (units (unknown) date) for now unknown) (unknown) (no (unknown) (unknown) -therapy assistant (units (u nknown) date) consulted unknown) (unknown) (no (unknown) (unknown) -no clear (units (unkn own) date) precipitating unknown) factors, no Vick-inhibitors or other causative (unknown) (no (unknown) (unknown) -on propofol, (units ( unknown) date) fentanyl, and unknown) versed and difficult to keep sedated, possibly due (unknown) (no (unknown) (unknown) -patient received (units (unknown) date) steroids, unknown) epinephrine, and anti-histamines in ED (unknown) (no (unknown) (unknown) -previous testing (units (unknown) date) showed normal C1 unknown) and C4 levels (unknown) (no (unknown) (unknown) -previously (units (unk nown) date) suspected cocaine unknown) as cause of angioedema, but this admission cocaine (unknown) (no (unknown) (unknown) 1. Angioedema with (units (unknown) date) respiratory failure unknown) (unknown) (no (unknown) (unknown) 07/05/22 07/05/22 (units (unknown) date) 07/05/22 unknown) (unknown) (no (unknown) (unknown) 07/05/22 07/05/22 (units (unknown) date) unknown) (unknown) (no (unknown) (unknown) 07/05/22 22:56 (units (unknown) date) unknown) (unknown) (no (unknown) (unknown) 07/05/22 (units (unkno wn) date) unknown) (unknown) (no (unknown) (unknown) 18:19 07/05/22 (units (unknown) date) unknown) (unknown) (no (unknown) (unknown) 18:30 07/05/22 (units (unknown) date) unknown) (unknown) (no (unknown) (unknown) 19:40 (units (unkno wn) date) unknown) (unknown) (no (unknown) (unknown) 19:50 07/05/22 (units (unknown) date) unknown) (unknown) (no (unknown) (unknown) 2. Anxiety (units (unk nown) date) unknown) (unknown) (no (unknown) (unknown) 20:00 07/05/22 (units (unknown) date) unknown) (unknown) (no (unknown) (unknown) 20:00 (units (unkno wn) date) unknown) (unknown) (no (unknown) (unknown) 20:10 07/05/22 (units (unknown) date) unknown) (unknown) (no (unknown) (unknown) 20:10 (units (unkno wn) date) unknown) (unknown) (no (unknown) (unknown) 20:17 07/05/22 (units (unknown) date) unknown) (unknown) (no (unknown) (unknown) 20:21 07/05/22 (units (unknown) date) unknown) (unknown) (no (unknown) (unknown) 20:21 (units (unkno wn) date) unknown) (unknown) (no (unknown) (unknown) 20:26 20:26 22:56 (units (unknown) date) unknown) (unknown) (no (unknown) (unknown) 20:30 07/05/22 (units (unknown) date) unknown) (unknown) (no (unknown) (unknown) 20:31 07/05/22 (units (unknown) date) unknown) (unknown) (no (unknown) (unknown) 20:31 (units (unkno wn) date) unknown) (unknown) (no (unknown) (unknown) 20:36 07/05/22 (units (unknown) date) unknown) (unknown) (no (unknown) (unknown) 20:36 (units (unkno wn) date) unknown) (unknown) (no (unknown) (unknown) 20:40 07/05/22 (units (unknown) date) unknown) (unknown) (no (unknown) (unknown) 20:50 07/05/22 (units (unknown) date) unknown) (unknown) (no (unknown) (unknown) 20:50 (units (unkno wn) date) unknown) (unknown) (no (unknown) (unknown) 21:00 07/05/22 (units (unknown) date) unknown) (unknown) (no (unknown) (unknown) 21:00 (units (unkno wn) date) unknown) (unknown) (no (unknown) (unknown) 21:10 07/05/22 (units (unknown) date) unknown) (unknown) (no (unknown) (unknown) 21:20 07/05/22 (units (unknown) date) unknown) (unknown) (no (unknown) (unknown) 21:20 (units (unkno wn) date) unknown) (unknown) (no (unknown) (unknown) 21:30 07/05/22 (units (unknown) date) unknown) (unknown) (no (unknown) (unknown) 21:30 (units (unkno wn) date) unknown) (unknown) (no (unknown) (unknown) 21:40 07/05/22 (units (unknown) date) unknown) (unknown) (no (unknown) (unknown) 21:50 07/05/22 (units (unknown) date) unknown) (unknown) (no (unknown) (unknown) 21:50 (units (unkno wn) date) unknown) (unknown) (no (unknown) (unknown) 22:00 07/05/22 (units (unknown) date) unknown) (unknown) (no (unknown) (unknown) 22:00 (units (unkno wn) date) unknown) (unknown) (no (unknown) (unknown) 22:10 07/05/22 (units (unknown) date) unknown) (unknown) (no (unknown) (unknown) 22:15 07/05/22 (units (unknown) date) unknown) (unknown) (no (unknown) (unknown) 22:15 (units (unkno wn) date) unknown) (unknown) (no (unknown) (unknown) 22:20 07/05/22 (units (unknown) date) unknown) (unknown) (no (unknown) (unknown) 22:20 (units (unkno wn) date) unknown) (unknown) (no (unknown) (unknown) 22:30 07/05/22 (units (unknown) date) unknown) (unknown) (no (unknown) (unknown) 22:40 07/05/22 (units (unknown) date) unknown) (unknown) (no (unknown) (unknown) 22:40 (units (unkno wn) date) unknown) (unknown) (no (unknown) (unknown) 22:51 07/05/22 (units (unknown) date) unknown) (unknown) (no (unknown) (unknown) 22:51 (units (unkno wn) date) unknown) (unknown) (no (unknown) (unknown) 22:52 07/05/22 (units (unknown) date) unknown) (unknown) (no (unknown) (unknown) 22:56 22:56 (units (un known) date) unknown) (unknown) (no (unknown) (unknown) 22:59 (units (unkno wn) date) unknown) (unknown) (no (unknown) (unknown) 23:00 07/05/22 (units (unknown) date) unknown) (unknown) (no (unknown) (unknown) 23:10 07/05/22 (units (unknown) date) unknown) (unknown) (no (unknown) (unknown) 23:10 (units (unkno wn) date) unknown) (unknown) (no (unknown) (unknown) 23:20 07/05/22 (units (unknown) date) unknown) (unknown) (no (unknown) (unknown) 23:20 (units (unkno wn) date) unknown) (unknown) (no (unknown) (unknown) 23:30 07/05/22 (units (unknown) date) unknown) (unknown) (no (unknown) (unknown) 23:30 (units (unkno wn) date) unknown) (unknown) (no (unknown) (unknown) [id number] (units (unkno wn) date) unknown) (unknown) (no (unknown) (unknown) 3. Hypertension (units (unknown) date) unknown) (unknown) (no (unknown) (unknown) ABLE TO (units (unkno wn) date) unknown) (unknown) (no (unknown) (unknown) ALT 32 (units (unkno wn) date) unknown) (unknown) (no (unknown) (unknown) ALT (units (unkno wn) date) unknown) (unknown) (no (unknown) (unknown) AST 65 H (units (unkno wn) date) unknown) (unknown) (no (unknown) (unknown) AST (units (unkno wn) date) unknown) (unknown) (no (unknown) (unknown) Abscess (units (unkno wn) date) unknown) (unknown) (no (unknown) (unknown) Age/Sex: 46 / F (units (unknown) date) unknown) (unknown) (no (unknown) (unknown) Albumin 4.2 (units (un known) date) unknown) (unknown) (no (unknown) (unknown) Albumin (units (unkno wn) date) unknown) (unknown) (no (unknown) (unknown) Albumin/Globulin (units (unknown) date) Ratio 1.2 unknown) (unknown) (no (unknown) (unknown) Albumin/Globulin (units (unknown) date) Ratio unknown) (unknown) (no (unknown) (unknown) Alkaline (units (unkno wn) date) Phosphatase 78 unknown) (unknown) (no (unknown) (unknown) Alkaline (units (unkno wn) date) Phosphatase unknown) (unknown) (no (unknown) (unknown) Allergies (units (unkn own) date) unknown) (unknown) (no (unknown) (unknown) Allergy/AdvReac (units (unknown) date) Type Severity unknown) Reaction Status Date / Time (unknown) (no (unknown) (unknown) Assessment + Plan (units (unknown) date) narrative: unknown) (unknown) (no (unknown) (unknown) Assessment + Plan (units (unknown) date) unknown) (unknown) (no (unknown) (unknown) BUN 7 (units (unkno wn) date) unknown) (unknown) (no (unknown) (unknown) BUN (units (unkno wn) date) unknown) (unknown) (no (unknown) (unknown) BUN/Creatinine (units (unknown) date) Ratio 9.7 unknown) (unknown) (no (unknown) (unknown) BUN/Creatinine (units (unknown) date) Ratio unknown) (unknown) (no (unknown) (unknown) Baso # (Auto) 100 (units (unknown) date) unknown) (unknown) (no (unknown) (unknown) Baso # (Auto) (units ( unknown) date) unknown) (unknown) (no (unknown) (unknown) Baso % (Auto) 0.5 (units (unknown) date) unknown) (unknown) (no (unknown) (unknown) Baso % (Auto) (units ( unknown) date) unknown) (unknown) (no (unknown) (unknown) Been Physically (units (unknown) date) Hurt or No unknown) (unknown) (no (unknown) (unknown) Blood Pressure (units (unknown) date) 104/75 106/76 unknown) (unknown) (no (unknown) (unknown) Blood Pressure (units (unknown) date) 105/73 unknown) (unknown) (no (unknown) (unknown) Blood Pressure (units (unknown) date) 106/73 77/50 L unknown) (unknown) (no (unknown) (unknown) Blood Pressure (units (unknown) date) 107/72 unknown) (unknown) (no (unknown) (unknown) Blood Pressure (units (unknown) date) 128/71 unknown) (unknown) (no (unknown) (unknown) Blood Pressure (units (unknown) date) 171/129 H 158/107 H unknown) (unknown) (no (unknown) (unknown) Blood Pressure (units (unknown) date) 172/104 H unknown) (unknown) (no (unknown) (unknown) Blood Pressure (units (unknown) date) 174/105 H unknown) (unknown) (no (unknown) (unknown) Blood Pressure (units (unknown) date) 178/121 H unknown) (unknown) (no (unknown) (unknown) Blood Pressure (units (unknown) date) 179/126 H unknown) (unknown) (no (unknown) (unknown) Blood Pressure (units (unknown) date) 186/107 H 178/108 H unknown) (unknown) (no (unknown) (unknown) Blood Pressure (units (unknown) date) 186/123 H unknown) (unknown) (no (unknown) (unknown) Blood Pressure (units (unknown) date) 187/129 H 175/118 H unknown) (unknown) (no (unknown) (unknown) Blood Pressure (units (unknown) date) 188/134 H unknown) (unknown) (no (unknown) (unknown) Blood Pressure (units (unknown) date) 201/136 H 174/111 H unknown) (unknown) (no (unknown) (unknown) Blood Pressure (units (unknown) date) 213/111 H 172/103 H unknown) (unknown) (no (unknown) (unknown) Blood Pressure (units (unknown) date) 217/106 H 244/157 H unknown) (unknown) (no (unknown) (unknown) Blood Pressure (units (unknown) date) 91/63 unknown) (unknown) (no (unknown) (unknown) Blood Pressure (units (unknown) date) 93/65 unknown) (unknown) (no (unknown) (unknown) Blood Pressure (units (unknown) date) 96/61 96/64 unknown) (unknown) (no (unknown) (unknown) Blood Type O (units (u nknown) date) Positive unknown) (unknown) (no (unknown) (unknown) Blood Type (units (unk nown) date) unknown) (unknown) (no (unknown) (unknown) CODE: Full (units (unk nown) date) unknown) (unknown) (no (unknown) (unknown) Calcium 8.0 L (units ( unknown) date) unknown) (unknown) (no (unknown) (unknown) Calcium (units (unkno wn) date) unknown) (unknown) (no (unknown) (unknown) Carbon Dioxide 24 (units (unknown) date) unknown) (unknown) (no (unknown) (unknown) Carbon Dioxide (units (unknown) date) unknown) (unknown) (no (unknown) (unknown) Chief complaint: (units (unknown) date) Keeps biting unknown) tongue, Jaw clenched (unknown) (no (unknown) (unknown) Chloride 106 (units (u nknown) date) unknown) (unknown) (no (unknown) (unknown) Chloride (units (unkno wn) date) unknown) (unknown) (no (unknown) (unknown) Chronic abdominal (units (unknown) date) pain unknown) (unknown) (no (unknown) (unknown) Creatinine 0.72 (units (unknown) date) unknown) (unknown) (no (unknown) (unknown) Creatinine (units (unk nown) date) unknown) (unknown) (no (unknown) (unknown) Critical Care (units ( unknown) date) time: unknown) (unknown) (no (unknown) (unknown) Cyclic vomiting (units (unknown) date) syndrome unknown) (unknown) (no (unknown) (unknown) : 1975 (units (unknown) date) Acct:[id number] unknown) (unknown) (no (unknown) (unknown) Date of Service: (units (unknown) date) 07/05/22 unknown) (unknown) (no (unknown) (unknown) Daughter (units (unkno wn) date) Angio-edema unknown) (unknown) (no (unknown) (unknown) Environment (units (un known) date) unknown) (unknown) (no (unknown) (unknown) Eos # (Auto) 0 (units (unknown) date) unknown) (unknown) (no (unknown) (unknown) Eos # (Auto) (units (u nknown) date) unknown) (unknown) (no (unknown) (unknown) Eos % (Auto) 0.1 L (units (unknown) date) unknown) (unknown) (no [...] Yes unknown) (unknown) (no (unknown) (unknown) Globulin 3.5 (units (u nknown) date) unknown) (unknown) (no (unknown) (unknown) Globulin (units (unkno wn) date) unknown) (unknown) (no (unknown) (unknown) Glucose 296 H (units ( unknown) date) unknown) (unknown) (no (unknown) (unknown) Glucose (units (unkno wn) date) unknown) (unknown) (no (unknown) (unknown) Hct 37.3 (units (unkno wn) date) unknown) (unknown) (no (unknown) (unknown) Hct (units (unkno wn) date) unknown) (unknown) (no (unknown) (unknown) Hgb 12.3 (units (unkno wn) date) unknown) (unknown) (no (unknown) (unknown) Hgb (units (unkno wn) date) unknown) (unknown) (no (unknown) (unknown) History + Physical (units (unknown) date) Report unknown) (unknown) (no (unknown) (unknown) History of Present (units (unknown) date) Illness unknown) (unknown) (no (unknown) (unknown) Home Medications (units (unknown) date) and Allergies unknown) (unknown) (no (unknown) (unknown) Home Medications (units (unknown) date) unknown) (unknown) (no (unknown) (unknown) Hx of appendectomy (units (unknown) date) unknown) (unknown) (no (unknown) (unknown) Hx of (units (unkno wn) date) cholecystectomy unknown) (unknown) (no (unknown) (unknown) I have utilized (units (unknown) date) all available unknown) resources to reconcile the patient's home (unknown) (no (unknown) (unknown) I spent a total of (units (unknown) date) [] minutes of unknown) critical care time on this patient's care (unknown) (no (unknown) (unknown) [facility] (units (unknown) date) [address] unknown) [place] [address] (unknown) (no (unknown) (unknown) Laboratory Results (units (unknown) date) - last 24 hr unknown) (unknown) (no (unknown) (unknown) Labs (units (unkno wn) date) unknown) (unknown) (no (unknown) (unknown) Labs: (units (unkno wn) date) unknown) (unknown) (no (unknown) (unknown) Lymph # (Auto) 400 (units (unknown) date) L unknown) (unknown) (no (unknown) (unknown) Lymph # (Auto) (units (unknown) date) unknown) (unknown) (no (unknown) (unknown) Lymph % (Auto) 3.9 (units (unknown) date) L unknown) (unknown) (no (unknown) (unknown) Lymph % (Auto) (units (unknown) date) unknown) (unknown) (no (unknown) (unknown) MCH 31.3 (units (unkno wn) date) unknown) (unknown) (no (unknown) (unknown) MCH (units (unkno wn) date) unknown) (unknown) (no (unknown) (unknown) MCHC 33.0 (units (unkn own) date) unknown) (unknown) (no (unknown) (unknown) MCHC (units (unkno wn) date) unknown) (unknown) (no (unknown) (unknown) MCV 94.9 (units (unkno wn) date) unknown) (unknown) (no (unknown) (unknown) MCV (units (unkno wn) date) unknown) (unknown) (no (unknown) (unknown) 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 (unknown) (no (unknown) (unknown) Marijuana use, (units (unknown) date) continuous unknown) (unknown) (no (unknown) (unknown) Medical History (units (unknown) date) (Reviewed 04/13/22 unknown) @ 09:52 by Mine Harrington DO) (unknown) (no (unknown) (unknown) Medication (units (unk nown) date) Instructions unknown) Recorded Confirmed Type (unknown) (no (unknown) (unknown) Meds (units (unkno wn) date) unknown) (unknown) (no (unknown) (unknown) [place] # (Auto) 100 (units (unknown) date) unknown) (unknown) (no (unknown) (unknown) [place] # (Auto) (units ( unknown) date) unknown) (unknown) (no (unknown) (unknown) [place] % (Auto) 1.1 (units (unknown) date) L unknown) (unknown) (no (unknown) (unknown) [place] % (Auto) (units ( unknown) date) unknown) (unknown) (no (unknown) (unknown) Mother Diabetes (units (unknown) date) mellitus unknown) (unknown) (no (unknown) (unknown) Neut # (Auto) (units ( unknown) date) [id number] H unknown) (unknown) (no (unknown) (unknown) Neut # (Auto) (units ( unknown) date) unknown) (unknown) (no (unknown) (unknown) Neut % (Auto) 94.4 (units (unknown) date) H unknown) (unknown) (no (unknown) (unknown) Neut % (Auto) (units ( unknown) date) unknown) (unknown) (no (unknown) (unknown) Objective (units (unkn own) date) unknown) (unknown) (no (unknown) (unknown) Other Colon cancer (units (unknown) date) unknown) (unknown) (no (unknown) (unknown) Oxygen Delivery (units (unknown) date) Method Room Air unknown) Room Air (unknown) (no (unknown) (unknown) Oxygen Delivery (units (unknown) date) Method Room Air unknown) (unknown) (no (unknown) (unknown) Oxygen Delivery (units (unknown) date) Method unknown) (unknown) (no (unknown) (unknown) PT STATES (units (unkn own) date) unknown) (unknown) (no (unknown) (unknown) Pancreatitis (units (u nknown) date) unknown) (unknown) (no (unknown) (unknown) Patient History (units (unknown) date) unknown) (unknown) (no (unknown) (unknown) Patient: (units (unkno wn) date) Dameon Caputo MR#: unknown) [id number] (unknown) (no (unknown) (unknown) Plt Count 238 (units ( unknown) date) unknown) (unknown) (no (unknown) (unknown) Plt Count (units (unkn own) date) unknown) (unknown) (no (unknown) (unknown) Potassium 3.5 (units ( unknown) date) unknown) (unknown) (no (unknown) (unknown) Potassium (units (unkn own) date) unknown) (unknown) (no (unknown) (unknown) Provider: (units (unkn own) date) Jean Carlos Cuevas MD unknown) (unknown) (no (unknown) (unknown) Proxy: Chandra (units ( unknown) date) Shagufta, spouse unknown) (unknown) (no (unknown) (unknown) Pulse Oximetry 100 (units (unknown) date) 100 unknown) (unknown) (no (unknown) (unknown) Pulse Oximetry 100 (units (unknown) date) unknown) (unknown) (no (unknown) (unknown) Pulse Oximetry 85 (units (unknown) date) L unknown) (unknown) (no (unknown) (unknown) Pulse Oximetry 90 (units (unknown) date) L 99 unknown) (unknown) (no (unknown) (unknown) Pulse Oximetry 95 (units (unknown) date) 96 unknown) (unknown) (no (unknown) (unknown) Pulse Oximetry 95 (units (unknown) date) unknown) (unknown) (no (unknown) (unknown) Pulse Oximetry 96 (units (unknown) date) 96 unknown) (unknown) (no (unknown) (unknown) Pulse Oximetry 96 (units (unknown) date) 99 unknown) (unknown) (no (unknown) (unknown) Pulse Oximetry 96 (units (unknown) date) unknown) (unknown) (no (unknown) (unknown) Pulse Oximetry 98 (units (unknown) date) 98 unknown) (unknown) (no (unknown) (unknown) Pulse Oximetry 98 (units (unknown) date) 99 unknown) (unknown) (no (unknown) (unknown) Pulse Oximetry 98 (units (unknown) date) unknown) (unknown) (no (unknown) (unknown) Pulse Oximetry 99 (units (unknown) date) 97 unknown) (unknown) (no (unknown) (unknown) Pulse Oximetry 99 (units (unknown) date) 99 unknown) (unknown) (no (unknown) (unknown) Pulse Oximetry 99 (units (unknown) date) unknown) (unknown) (no (unknown) (unknown) Pulse Rate 104 H (units (unknown) date) unknown) (unknown) (no (unknown) (unknown) Pulse Rate 105 H (units (unknown) date) 96 H unknown) (unknown) (no (unknown) (unknown) Pulse Rate 108 H (units (unknown) date) unknown) (unknown) (no (unknown) (unknown) Pulse Rate 110 H (units (unknown) date) 127 H unknown) (unknown) (no (unknown) (unknown) Pulse Rate 115 H (units (unknown) date) unknown) (unknown) (no (unknown) (unknown) Pulse Rate 121 H (units (unknown) date) 109 H unknown) (unknown) (no (unknown) (unknown) Pulse Rate 129 H (units (unknown) date) 135 H unknown) (unknown) (no (unknown) (unknown) Pulse Rate 129 H (units (unknown) date) unknown) (unknown) (no (unknown) (unknown) Pulse Rate 134 H (units (unknown) date) unknown) (unknown) (no (unknown) (unknown) Pulse Rate 137 H (units (unknown) date) 135 H unknown) (unknown) (no (unknown) (unknown) Pulse Rate 138 H (units (unknown) date) 137 H unknown) (unknown) (no (unknown) (unknown) Pulse Rate 139 H (units (unknown) date) unknown) (unknown) (no (unknown) (unknown) Pulse Rate 87 96 H (units (unknown) date) unknown) (unknown) (no (unknown) (unknown) Pulse Rate 91 H (units (unknown) date) unknown) (unknown) (no (unknown) (unknown) Pulse Rate 93 H (units (unknown) date) unknown) (unknown) (no (unknown) (unknown) Pulse Rate 94 H 94 (units (unknown) date) H unknown) (unknown) (no (unknown) (unknown) Pulse Rate 95 H 94 (units (unknown) date) H unknown) (unknown) (no (unknown) (unknown) Pulse Rate 95 H (units (unknown) date) unknown) (unknown) (no (unknown) (unknown) Pulse Rate 96 H 75 (units (unknown) date) unknown) (unknown) (no (unknown) (unknown) Pulse Rate 98 H 97 (units (unknown) date) H unknown) (unknown) (no (unknown) (unknown) RBC 3.93 L (units (unk nown) date) unknown) (unknown) (no (unknown) (unknown) RBC (units (unkno wn) date) unknown) (unknown) (no (unknown) (unknown) RDW 13.2 (units (unkno wn) date) unknown) (unknown) (no (unknown) (unknown) RDW (units (unkno wn) date) unknown) (unknown) (no (unknown) (unknown) Respiratory Rate (units (unknown) date) 16 16 unknown) (unknown) (no (unknown) (unknown) Respiratory Rate (units (unknown) date) 16 unknown) (unknown) (no (unknown) (unknown) Respiratory Rate (units (unknown) date) 18 unknown) (unknown) (no (unknown) (unknown) Respiratory Rate (units (unknown) date) 19 24 unknown) (unknown) (no (unknown) (unknown) Respiratory Rate (units (unknown) date) 22 unknown) (unknown) (no (unknown) (unknown) Respiratory Rate (units (unknown) date) 24 34 H unknown) (unknown) (no (unknown) (unknown) Respiratory Rate (units (unknown) date) 24 unknown) (unknown) (no (unknown) (unknown) Respiratory Rate (units (unknown) date) 25 H 25 H unknown) (unknown) (no (unknown) (unknown) Respiratory Rate (units (unknown) date) 26 H 25 H unknown) (unknown) (no (unknown) (unknown) Respiratory Rate (units (unknown) date) 26 H 37 H unknown) (unknown) (no (unknown) (unknown) Respiratory Rate (units (unknown) date) 26 H unknown) (unknown) (no (unknown) (unknown) Respiratory Rate (units (unknown) date) 27 H 16 unknown) (unknown) (no (unknown) (unknown) Respiratory Rate (units (unknown) date) 32 H unknown) (unknown) (no (unknown) (unknown) Respiratory Rate (units (unknown) date) 35 H unknown) (unknown) (no (unknown) (unknown) Respiratory Rate (units (unknown) date) 42 H 42 H unknown) (unknown) (no (unknown) (unknown) Respiratory Rate (units (unknown) date) 52 H 39 H unknown) (unknown) (no (unknown) (unknown) Respiratory Rate (units (unknown) date) unknown) (unknown) (no (unknown) (unknown) Result Diagrams: (units (unknown) date) unknown) (unknown) (no (unknown) (unknown) Safety + (units (unkno wn) date) Behavioral: unknown) (unknown) (no (unknown) (unknown) Signed By: (units (unk nown) date) unknown) (unknown) (no (unknown) (unknown) Smoking Status (units (unknown) date) Current every day unknown) smoker (unknown) (no (unknown) (unknown) Social History: (units (unknown) date) unknown) (unknown) (no (unknown) (unknown) Sodium 143 (units (unk nown) date) unknown) (unknown) (no (unknown) (unknown) Sodium (units (unkno wn) date) unknown) (unknown) (no (unknown) (unknown) Substance Use Type (units (unknown) date) marijuana,crack/jeny unknown) sudha,former substance user, (unknown) (no (unknown) (unknown) Surgical History (units (unknown) date) (Reviewed 04/13/22 unknown) @ 09:52 by Mine Harrington DO) (unknown) (no (unknown) (unknown) TAKE WV (units (unkno wn) date) unknown) (unknown) (no (unknown) (unknown) TO IV SITE (units (unk nown) date) unknown) (unknown) (no (unknown) (unknown) Threatened By a (units (unknown) date) Person unknown) (unknown) (no (unknown) (unknown) Time Spent With (units (unknown) date) Patient unknown) (unknown) (no (unknown) (unknown) Tobacco + (units (unkn own) date) Substance use: unknown) (unknown) (no (unknown) (unknown) Tobacco type (units (u nknown) date) e-cigarettes unknown) (unknown) (no (unknown) (unknown) Total Bilirubin (units (unknown) date) 0.5 unknown) (unknown) (no (unknown) (unknown) Total Bilirubin (units (unknown) date) unknown) (unknown) (no (unknown) (unknown) Total Protein 7.7 (units (unknown) date) unknown) (unknown) (no (unknown) (unknown) Total Protein (units ( unknown) date) unknown) (unknown) (no (unknown) (unknown) U [...] Screen unknown) (unknown) (no (unknown) (unknown) Ur Culture (units (unk nown) date) Indicated? Cult not unknown) indicated (unknown) (no (unknown) (unknown) Ur Culture (units (unk nown) date) Indicated? unknown) (unknown) (no (unknown) (unknown) Ur Leukocyte (units (u nknown) date) Esterase Negative unknown) (unknown) (no (unknown) (unknown) Ur Leukocyte (units (u nknown) date) Esterase unknown) (unknown) (no (unknown) (unknown) Ur MDMA [...] Scrn unknown) (unknown) (no (unknown) (unknown) Ur Specific (units (un known) date) [place] 1.010 unknown) (unknown) (no (unknown) (unknown) Ur Specific (units (un known) date) [place] unknown) (unknown) (no (unknown) (unknown) Ur Squamous Epith (units (unknown) date) Cells 0-1 /hpf unknown) (unknown) (no (unknown) (unknown) Ur Squamous Epith (units (unknown) date) Cells unknown) (unknown) (no (unknown) (unknown) Ur Transition (units ( unknown) date) Epith Cell 0-1/hpf unknown) (unknown) (no (unknown) (unknown) Ur Transition (units ( unknown) date) Epith Cell unknown) (unknown) (no (unknown) (unknown) Urine Appearance (units (unknown) date) Clear unknown) (unknown) (no (unknown) (unknown) Urine Appearance (units (unknown) date) unknown) (unknown) (no (unknown) (unknown) Urine Bacteria (units (unknown) date) None seen unknown) (unknown) (no (unknown) (unknown) Urine Bacteria (units (unknown) date) unknown) (unknown) (no (unknown) (unknown) Urine Bilirubin (units (unknown) date) Negative unknown) (unknown) (no (unknown) (unknown) Urine Bilirubin (units (unknown) date) unknown) (unknown) (no (unknown) (unknown) Urine Cocaine (units ( unknown) date) Screen Negative unknown) (unknown) (no (unknown) (unknown) Urine Cocaine (units ( unknown) date) Screen unknown) (unknown) (no (unknown) (unknown) Urine Color Yellow (units (unknown) date) unknown) (unknown) (no (unknown) (unknown) Urine Color (units (un known) date) unknown) (unknown) (no (unknown) (unknown) Urine Glucose (UA) (units (unknown) date) 1+ H unknown) (unknown) (no (unknown) (unknown) Urine Glucose (UA) (units (unknown) date) unknown) (unknown) (no (unknown) (unknown) Urine Ketones (units ( unknown) date) Negative unknown) (unknown) (no (unknown) (unknown) Urine Ketones (units ( unknown) date) unknown) (unknown) (no (unknown) (unknown) Urine Methadone (units (unknown) date) Screen Negative unknown) (unknown) (no (unknown) (unknown) Urine Methadone (units (unknown) date) Screen unknown) (unknown) (no (unknown) (unknown) Urine Nitrate (units ( unknown) date) Negative unknown) (unknown) (no (unknown) (unknown) Urine Nitrate (units ( unknown) date) unknown) (unknown) (no (unknown) (unknown) Urine Occult Blood (units (unknown) date) Trace-lysed unknown) (unknown) (no (unknown) (unknown) Urine Occult Blood (units (unknown) date) unknown) (unknown) (no (unknown) (unknown) Urine Protein 1+ H (units (unknown) date) unknown) (unknown) [...] unknown) (unknown) (no (unknown) (unknown) Urine WBC None (units (unknown) date) seen unknown) (unknown) (no (unknown) (unknown) Urine WBC (units (unkn own) date) unknown) (unknown) (no (unknown) (unknown) Urine pH 7.0 (units (u nknown) date) unknown) (unknown) (no (unknown) (unknown) Urine pH (units (unkno wn) date) unknown) (unknown) (no (unknown) (unknown) Vital Signs (units (un known) date) unknown) (unknown) (no (unknown) (unknown) WBC 11.1 H (units (unk nown) date) unknown) (unknown) (no (unknown) (unknown) WBC (units (unkno wn) date) unknown) (unknown) (no (unknown) (unknown) [Embedded Image (units (unknown) date) Not Available] unknown) (unknown) (no (unknown) (unknown) [METOCLOPRAMIDE] (units (unknown) date) unknown) (unknown) (no (unknown) (unknown) alcohol intake (units (unknown) date) current unknown) (unknown) (no (unknown) (unknown) alcohol intake (units (unknown) date) frequency 3 or more unknown) drinks per day (unknown) (no (unknown) (unknown) bupropion HCl 100 (units (unknown) date) mg tablet,12 hr 100 unknown) mg PO DAILY #90 ea 04/14/22 Rx (unknown) (no (unknown) (unknown) drip (units (unkno wn) date) unknown) (unknown) (no (unknown) (unknown) household members (units (unknown) date) spouse unknown) (unknown) (no (unknown) (unknown) latex [LATEX] (units ( unknown) date) Allergy Unknown unknown) Verified 04/13/22 09:42 (unknown) (no (unknown) (unknown) medications (units (un known) date) unknown) (unknown) (no (unknown) (unknown) medications. (units (u nknown) date) unknown) (unknown) (no (unknown) (unknown) methamphetamine (units (unknown) date) unknown) (unknown) (no (unknown) (unknown) metoclopramide (units (unknown) date) AdvReac Unknown unknown) DYSTONIA Verified 04/13/22 09:42 (unknown) (no (unknown) (unknown) on UDS was (units (unk nown) date) negative unknown) (unknown) (no (unknown) (unknown) potassium chloride (units (unknown) date) 20 mEq 40 meq PO unknown) DAILY #90 tabs 04/14/22 Rx (unknown) (no (unknown) (unknown) promethazine (units (u nknown) date) [PROMETHAZINE] unknown) Allergy Mild ERYTHEMA Verified 04/13/22 09:42 (unknown) (no (unknown) (unknown) spironolactone 25 (units (unknown) date) mg tablet 25 mg PO unknown) DAILY #90 tabs 04/14/22 Rx (unknown) (no (unknown) (unknown) sustained-release (units (unknown) date) unknown) (unknown) (no (unknown) (unknown) tablet,extended (units (unknown) date) release unknown) (unknown) (no (unknown) (unknown) to substance abuse (units (unknown) date) unknown) (unknown) (no (unknown) (unknown) today; this time (units (unknown) date) is exclusive of unknown) procedural time. Result panel [id number] (unknown) (no (unknown) (unknown) (no value) (units (unk nown) date) unknown) (unknown) (no (unknown) (unknown) 07/05/22 07/05/22 (units (unknown) date) 07/05/22 Range/Units unknown) (unknown) (no (unknown) (unknown) 07/05/22 07/05/22 (units (unknown) date) Range/Units unknown) (unknown) (no (unknown) (unknown) 07/05/22 20:26 (units (unknown) date) unknown) (unknown) (no (unknown) (unknown) 07/05/22 20:35 (units (unknown) date) unknown) (unknown) (no (unknown) (unknown) 07/05/22 21:17 (units (unknown) date) unknown) (unknown) (no (unknown) (unknown) 07/05/22 22:56 (units (unknown) date) unknown) (unknown) (no (unknown) (unknown) 07/05/22 (units (unkno wn) date) unknown) (unknown) (no (unknown) (unknown) 18:19 07/05/22 (units (unknown) date) unknown) (unknown) (no (unknown) (unknown) 18:30 07/05/22 (units (unknown) date) unknown) (unknown) (no (unknown) (unknown) 19:40 (units (unkno wn) date) unknown) (unknown) (no (unknown) (unknown) 19:50 07/05/22 (units (unknown) date) unknown) (unknown) (no (unknown) (unknown) 20:00 07/05/22 (units (unknown) date) unknown) (unknown) (no (unknown) (unknown) 20:00 (units (unkno wn) date) unknown) (unknown) (no (unknown) (unknown) 20:10 07/05/22 (units (unknown) date) unknown) (unknown) (no (unknown) (unknown) 20:10 (units (unkno wn) date) unknown) (unknown) (no (unknown) (unknown) 20:17 07/05/22 (units (unknown) date) unknown) (unknown) (no (unknown) (unknown) 20:21 07/05/22 (units (unknown) date) unknown) (unknown) (no (unknown) (unknown) 20:21 (units (unkno wn) date) unknown) (unknown) (no (unknown) (unknown) 20:26 20:26 22:56 (units (unknown) date) unknown) (unknown) (no (unknown) (unknown) 20:30 07/05/22 (units (unknown) date) unknown) (unknown) (no (unknown) (unknown) 20:31 07/05/22 (units (unknown) date) unknown) (unknown) (no (unknown) (unknown) 20:31 (units (unkno wn) date) unknown) (unknown) (no (unknown) (unknown) 20:36 07/05/22 (units (unknown) date) unknown) (unknown) (no (unknown) (unknown) 20:36 (units (unkno wn) date) unknown) (unknown) (no (unknown) (unknown) 20:40 07/05/22 (units (unknown) date) unknown) (unknown) (no (unknown) (unknown) 20:50 07/05/22 (units (unknown) date) unknown) (unknown) (no (unknown) (unknown) 20:50 (units (unkno wn) date) unknown) (unknown) (no (unknown) (unknown) 21:00 07/05/22 (units (unknown) date) unknown) (unknown) (no (unknown) (unknown) 21:00 (units (unkno wn) date) unknown) (unknown) (no (unknown) (unknown) 21:10 07/05/22 (units (unknown) date) unknown) (unknown) (no (unknown) (unknown) 21:20 07/05/22 (units (unknown) date) unknown) (unknown) (no (unknown) (unknown) 21:20 (units (unkno wn) date) unknown) (unknown) (no (unknown) (unknown) 21:30 07/05/22 (units (unknown) date) unknown) (unknown) (no (unknown) (unknown) 21:30 (units (unkno wn) date) unknown) (unknown) (no (unknown) (unknown) 21:40 07/05/22 (units (unknown) date) unknown) (unknown) (no (unknown) (unknown) 21:50 07/05/22 (units (unknown) date) unknown) (unknown) (no (unknown) (unknown) 21:50 (units (unkno wn) date) unknown) (unknown) (no (unknown) (unknown) 22:00 07/05/22 (units (unknown) date) unknown) (unknown) (no (unknown) (unknown) 22:00 (units (unkno wn) date) unknown) (unknown) (no (unknown) (unknown) 22:10 07/05/22 (units (unknown) date) unknown) (unknown) (no (unknown) (unknown) 22:15 07/05/22 (units (unknown) date) unknown) (unknown) (no (unknown) (unknown) 22:15 (units (unkno wn) date) unknown) (unknown) (no (unknown) (unknown) 22:20 07/05/22 (units (unknown) date) unknown) (unknown) (no (unknown) (unknown) 22:20 (units (unkno wn) date) unknown) (unknown) (no (unknown) (unknown) 22:30 07/05/22 (units (unknown) date) unknown) (unknown) (no (unknown) (unknown) 22:40 07/05/22 (units (unknown) date) unknown) (unknown) (no (unknown) (unknown) 22:40 (units (unkno wn) date) unknown) (unknown) (no (unknown) (unknown) 22:51 07/05/22 (units (unknown) date) unknown) (unknown) (no (unknown) (unknown) 22:51 (units (unkno wn) date) unknown) (unknown) (no (unknown) (unknown) 22:52 07/05/22 (units (unknown) date) unknown) (unknown) (no (unknown) (unknown) 22:52 (units (unkno wn) date) unknown) (unknown) (no (unknown) (unknown) 22:56 22:56 (units (un known) date) unknown) (unknown) (no (unknown) (unknown) [id number] (units (unkno wn) date) unknown) (unknown) (no (unknown) (unknown) ABLE TO (units (unkno wn) date) unknown) (unknown) (no (unknown) (unknown) ABO RH Type Stat (units (unknown) date) unknown) (unknown) (no (unknown) (unknown) ALT (<35) IU/L (units (unknown) date) unknown) (unknown) (no (unknown) (unknown) ALT 32 (<35) IU/L (units (unknown) date) unknown) (unknown) (no (unknown) (unknown) AST (14-36) IU/L (units (unknown) date) unknown) (unknown) (no (unknown) (unknown) AST 65 H (14-36) (units (unknown) date) IU/L unknown) (unknown) (no (unknown) (unknown) Abscess (units (unkno wn) date) unknown) (unknown) (no (unknown) (unknown) Admin: 07/05/22 (units (unknown) date) 18:38 Dose: 1,000 unknown) mls/hr (unknown) (no (unknown) (unknown) Admin: 07/05/22 (units (unknown) date) 18:46 Dose: 200 unknown) mls/hr (unknown) (no (unknown) (unknown) Admin: 07/05/22 (units (unknown) date) 19:39 Dose: 1,000 unknown) mls/hr (unknown) (no (unknown) (unknown) Admin: 07/05/22 (units (unknown) date) 20:24 Dose: 80 mg unknown) (unknown) (no (unknown) (unknown) Admin: 07/05/22 (units (unknown) date) 20:30 Dose: 15 unknown) mcg/kg/min, 5.715 mls/hr (unknown) (no (unknown) (unknown) Admin: 07/05/22 (units (unknown) date) 20:34 Dose: 80 mg unknown) (unknown) (no (unknown) (unknown) Admin: 07/05/22 (units (unknown) date) 20:44 Dose: 80 mg unknown) (unknown) (no (unknown) (unknown) Admin: 07/05/22 (units (unknown) date) 21:17 Dose: 0.7 unknown) mcg/kg/hr, 11.113 mls/hr (unknown) (no (unknown) (unknown) Admin: 07/05/22 (units (unknown) date) 21:30 Dose: Not unknown) Given (unknown) (no (unknown) (unknown) Admin: 07/05/22 (units (unknown) date) 22:04 Dose: 80 mg unknown) (unknown) (no (unknown) (unknown) Admin: 07/05/22 (units (unknown) date) 23:28 Dose: 5 mg/hr, unknown) 25 mls/hr (unknown) (no (unknown) (unknown) Admit Date/Time: (units (unknown) date) 07/05/22 22:58 unknown) (unknown) (no (unknown) (unknown) Admit Provider: (units (unknown) date) Jean Carlos Cuevas unknown) (unknown) (no (unknown) (unknown) Age/Sex: 46 / F (units (unknown) date) unknown) (unknown) (no (unknown) (unknown) Albumin (3.5-5.0) (units (unknown) date) g/dL unknown) (unknown) (no (unknown) (unknown) Albumin 4.2 (units (un known) date) (3.5-5.0) g/dL unknown) (unknown) (no (unknown) (unknown) Albumin/Globulin (units (unknown) date) Ratio (1.0-2.8) unknown) (unknown) (no (unknown) (unknown) Albumin/Globulin (units (unknown) date) Ratio 1.2 (1.0-2.8) unknown) (unknown) (no (unknown) (unknown) Alcohol type: wine (units (unknown) date) unknown) (unknown) (no (unknown) (unknown) Alkaline (units (unkno wn) date) Phosphatase (38-126) unknown) U/L (unknown) (no (unknown) (unknown) Alkaline (units (unkno wn) date) Phosphatase 78 unknown) (38-126) U/L (unknown) (no (unknown) (unknown) Allergies (units (unkn own) date) unknown) (unknown) (no (unknown) (unknown) Allergy/AdvReac (units (unknown) date) Type Severity unknown) Reaction Status Date / Time (unknown) (no (unknown) (unknown) Angioedema, (units (un known) date) Anaphylaxis unknown) (unknown) (no (unknown) (unknown) Attestation: (units (u nknown) date) unknown) (unknown) (no (unknown) (unknown) BUN (7-17) mg/dL (units (unknown) date) unknown) (unknown) (no (unknown) (unknown) BUN 7 (7-17) mg/dL (units (unknown) date) unknown) (unknown) (no (unknown) (unknown) BUN/Creatinine (units (unknown) date) Ratio (6-22) unknown) (unknown) (no (unknown) (unknown) BUN/Creatinine (units (unknown) date) Ratio 9.7 (6-22) unknown) (unknown) (no (unknown) (unknown) Baso # (Auto) (units ( unknown) date) (0-100) /uL unknown) (unknown) (no (unknown) (unknown) Baso # (Auto) 100 (units (unknown) date) (0-100) /uL unknown) (unknown) (no (unknown) (unknown) Baso % (Auto) (0-2) (unit s (unknown) date) % unknown) (unknown) (no (unknown) (unknown) Baso % (Auto) 0.5 (units (unknown) date) (0-2) % unknown) (unknown) (no (unknown) (unknown) Bedside Urine (units ( unknown) date) Bilirubin - Negative unknown) (unknown) (no (unknown) (unknown) Bedside Urine (units ( unknown) date) Glucose 250 mg/dl unknown) (unknown) (no (unknown) (unknown) Bedside Urine (units ( unknown) date) Ketone +/- 5 unknown) (unknown) (no (unknown) (unknown) Bedside Urine (units ( unknown) date) Leukocytes - unknown) Negative (unknown) (no (unknown) (unknown) Bedside Urine (units ( unknown) date) Nitrite - Negative unknown) (unknown) (no (unknown) (unknown) Bedside Urine (units ( unknown) date) Occult Blood +/ unknown) (unknown) (no (unknown) (unknown) Bedside Urine (units ( unknown) date) Protein + 30 unknown) (unknown) (no (unknown) (unknown) Bedside Urine pH (units (unknown) date) 6.0 unknown) (unknown) (no (unknown) (unknown) Blood Pressure (units (unknown) date) 104/75 106/76 unknown) (unknown) (no (unknown) (unknown) Blood Pressure (units (unknown) date) 105/73 unknown) (unknown) (no (unknown) (unknown) Blood Pressure (units (unknown) date) 106/73 77/50 L unknown) (unknown) (no (unknown) (unknown) Blood Pressure (units (unknown) date) 107/72 unknown) (unknown) (no (unknown) (unknown) Blood Pressure (units (unknown) date) 128/71 unknown) (unknown) (no (unknown) (unknown) Blood Pressure (units (unknown) date) 171/129 H 158/107 H unknown) (unknown) (no (unknown) (unknown) Blood Pressure (units (unknown) date) 172/104 H unknown) (unknown) (no (unknown) (unknown) Blood Pressure (units (unknown) date) 174/105 H unknown) (unknown) (no (unknown) (unknown) Blood Pressure (units (unknown) date) 178/121 H unknown) (unknown) (no (unknown) (unknown) Blood Pressure (units (unknown) date) 179/126 H unknown) (unknown) (no (unknown) (unknown) Blood Pressure (units (unknown) date) 186/107 H 178/108 H unknown) (unknown) (no (unknown) (unknown) Blood Pressure (units (unknown) date) 186/123 H unknown) (unknown) (no (unknown) (unknown) Blood Pressure (units (unknown) date) 187/129 H 175/118 H unknown) (unknown) (no (unknown) (unknown) Blood Pressure (units (unknown) date) 188/134 H unknown) (unknown) (no (unknown) (unknown) Blood Pressure (units (unknown) date) 201/136 H 174/111 H unknown) (unknown) (no (unknown) (unknown) Blood Pressure (units (unknown) date) 213/111 H 172/103 H unknown) (unknown) (no (unknown) (unknown) Blood Pressure (units (unknown) date) 217/106 H 244/157 H unknown) (unknown) (no (unknown) (unknown) Blood Type O (units (u nknown) date) Positive unknown) (unknown) (no (unknown) (unknown) Blood Type (units (unk nown) date) unknown) (unknown) (no (unknown) (unknown) Calcium (8.4-10.2) (units (unknown) date) mg/dL unknown) (unknown) (no (unknown) (unknown) Calcium 8.0 L (units ( unknown) date) (8.4-10.2) mg/dL unknown) (unknown) (no (unknown) (unknown) Carbon Dioxide (units (unknown) date) (22-32) mmol/L unknown) (unknown) (no (unknown) (unknown) Carbon Dioxide 24 (units (unknown) date) (22-32) mmol/L unknown) (unknown) (no (unknown) (unknown) Chief complaint: (units (unknown) date) Allergic Reaction unknown) (unknown) (no (unknown) (unknown) Chloride (98-107) (units (unknown) date) mmol/L unknown) (unknown) (no (unknown) (unknown) Chloride 106 (units (u nknown) date) (98-107) mmol/L unknown) (unknown) (no (unknown) (unknown) Chronic abdominal (units (unknown) date) pain unknown) (unknown) (no (unknown) (unknown) Clinical (units (unkno wn) date) Impression: unknown) (unknown) (no (unknown) (unknown) Complete Blood (units (unknown) date) Count AUTO DIFF Stat unknown) (unknown) (no (unknown) (unknown) Comprehensive (units ( unknown) date) Metabolic Panel Stat unknown) (unknown) (no (unknown) (unknown) Course (units (unkno wn) date) unknown) (unknown) (no (unknown) (unknown) Creatinine (units (unk nown) date) (0.52-1.04) mg/dL unknown) (unknown) (no (unknown) (unknown) Creatinine 0.72 (units (unknown) date) (0.52-1.04) mg/dL unknown) (unknown) (no (unknown) (unknown) Critical Care Time (units (unknown) date) unknown) (unknown) (no (unknown) (unknown) Critical Care Time: (unit s (unknown) date) Yes unknown) (unknown) (no (unknown) (unknown) Critical care time (units (unknown) date) is separate from unknown) other billable procedures. There is a high (unknown) (no (unknown) (unknown) Cyclic vomiting (units (unknown) date) syndrome unknown) (unknown) (no (unknown) (unknown) : 1975 (units (unknown) date) Acct:[id number] unknown) (unknown) (no (unknown) (unknown) Date of Service: (units (unknown) date) 07/05/22 unknown) (unknown) (no (unknown) (unknown) Daughter (units (unkno wn) date) Angio-edema unknown) (unknown) (no (unknown) (unknown) Departure (units (unkn own) date) unknown) (unknown) (no (unknown) (unknown) Diltiazem HCl (units ( unknown) date) (Diltiazem 5 Mg/Ml unknown) Sdv) 20 mg IV NOW ONE (unknown) (no (unknown) (unknown) Diphenhydramine HCl (unit s (unknown) date) (Diphenhydramine 50 unknown) Mg/Ml Vial) 50 mg IM NOW ONE (unknown) (no (unknown) (unknown) Diphenhydramine HCl (unit s (unknown) date) (Diphenhydramine 50 unknown) Mg/Ml Vial) 50 mg IV NOW ONE (unknown) (no (unknown) (unknown) Discharge Plan (units (unknown) date) unknown) (unknown) (no (unknown) (unknown) Discontinued (units (u nknown) date) Medications unknown) (unknown) (no (unknown) (unknown) Documented By: DKB (units (unknown) date) unknown) (unknown) (no (unknown) (unknown) Documented By: KH (units (unknown) date) unknown) (unknown) (no (unknown) (unknown) Documented By: KM (units (unknown) date) unknown) (unknown) (no (unknown) (unknown) ED Orders (units (unkn own) date) unknown) (unknown) (no (unknown) (unknown) EKG-12 Lead Routine (unit s (unknown) date) unknown) (unknown) (no (unknown) (unknown) ER Physician: (units ( unknown) date) Leslie Torres MD unknown) (unknown) (no (unknown) (unknown) Emergency Report [...] (2-4) % unknown) (unknown) (no (unknown) (unknown) Epinephrine HCl (units (unknown) date) (Epinephrine 1 unknown) Mg/Ml) 0.5 mg IM NOW ONE (unknown) (no (unknown) (unknown) Epinephrine HCl 4 (units (unknown) date) mg/ Dextrose 250 mls unknown) @ 3.75 mls/hr IV TITRATE KIRIT; Protocol (unknown) (no (unknown) (unknown) Esterase (units (unkno wn) date) unknown) (unknown) (no (unknown) (unknown) Estimated GFR > 60 (units (unknown) date) (>60) mL/min unknown) (unknown) (no (unknown) (unknown) Estimated GFR (>60) (unit s (unknown) date) mL/min unknown) (unknown) (no (unknown) (unknown) Etomidate (units (unkn own) date) (Etomidate 2 Mg/Ml unknown) 10 Ml Vial) 20 mg IV NOW ONE (unknown) (no (unknown) (unknown) Exam (units (unkno wn) date) unknown) (unknown) (no (unknown) (unknown) FFP [Fresh Frozen (units (unknown) date) Plasma] Stat unknown) (unknown) (no (unknown) (unknown) Family History (units (unknown) date) (Reviewed 04/13/22 @ unknown) 09:52 by Mine Harrington DO) (unknown) (no (unknown) (unknown) Family history of (units (unknown) date) angioedema unknown) (unknown) (no (unknown) (unknown) Famotidine (units (unk nown) date) (Famotidine 20 Mg/2 unknown) Ml Vial) 40 mg IV DAILY ONE (unknown) (no (unknown) (unknown) Father Hypertension (unit s (unknown) date) unknown) (unknown) (no (unknown) (unknown) Fentanyl 1,000 mcg/ (unit s (unknown) date) Dextrose 250 mls @ unknown) 11.113 mls/hr IV TITRATE K[place]IT; Protocol (unknown) (no (unknown) (unknown) General (units (unkno wn) date) unknown) (unknown) (no (unknown) (unknown) Globulin (1.7-4.1) (units (unknown) date) g/dL unknown) (unknown) (no (unknown) (unknown) Globulin 3.5 (units (u nknown) date) (1.7-4.1) g/dL unknown) (unknown) (no (unknown) (unknown) Glucose (70-100) (units (unknown) date) mg/dL unknown) (unknown) (no (unknown) (unknown) Glucose 296 H (units ( unknown) date) (70-100) mg/dL unknown) (unknown) (no (unknown) (unknown) HPI - Allergic (units (unknown) date) Reaction unknown) (unknown) (no (unknown) (unknown) Hct (36-46) % (units ( unknown) date) unknown) (unknown) (no (unknown) (unknown) Hct 37.3 (36-46) % (units (unknown) date) unknown) (unknown) (no (unknown) (unknown) Hgb (12.0-16.0) (units (unknown) date) g/dL unknown) (unknown) (no (unknown) (unknown) Hgb 12.3 (units (unkno wn) date) (12.0-16.0) g/dL unknown) (unknown) (no (unknown) (unknown) Hx of appendectomy (units (unknown) date) unknown) (unknown) (no (unknown) (unknown) Hx of (units (unkno wn) date) cholecystectomy unknown) (unknown) (no (unknown) (unknown) Initial Vital Signs (unit s (unknown) date) unknown) (unknown) (no (unknown) (unknown) Initial Vital (units ( unknown) date) Signs: unknown) (unknown) (no (unknown) (unknown) [facility] (units (unknown) date) [address] unknown) [place] [address] (unknown) (no (unknown) (unknown) Lab Data (units (unkno wn) date) unknown) (unknown) (no (unknown) (unknown) Lab Results (units (un known) date) unknown) (unknown) (no (unknown) (unknown) Labs: (units (unkno wn) date) unknown) (unknown) (no (unknown) (unknown) Last Admin: (units (un known) date) 07/05/22 18:38 Dose: unknown) 125 mg (unknown) (no (unknown) (unknown) Last Admin: (units (un known) date) 07/05/22 18:38 Dose: unknown) 40 mg (unknown) (no (unknown) (unknown) Last Admin: (units (un known) date) 07/05/22 18:39 Dose: unknown) 0.5 mg (unknown) (no (unknown) (unknown) Last Admin: (units (un known) date) 07/05/22 18:40 Dose: unknown) 50 mg (unknown) (no (unknown) (unknown) Last Admin: (units (un known) date) 07/05/22 18:43 Dose: unknown) Not Given (unknown) (no (unknown) (unknown) Last Admin: (units (un known) date) 07/05/22 18:53 Dose: unknown) 0.5 mg (unknown) (no (unknown) (unknown) Last Admin: (units (un known) date) 07/05/22 20:19 Dose: unknown) 20 mg (unknown) (no (unknown) (unknown) Last Admin: (units (un known) date) 07/05/22 20:20 Dose: unknown) 120 mg (unknown) (no (unknown) (unknown) Last Admin: (units (un known) date) 07/05/22 20:30 Dose: unknown) 100 mg (unknown) (no (unknown) (unknown) Last Admin: (units (un known) date) 07/05/22 21:07 Dose: unknown) 4 mg (unknown) (no (unknown) (unknown) Last Admin: (units (un known) date) 07/05/22 21:09 Dose: unknown) 20 mg (unknown) (no (unknown) (unknown) Last Admin: (units (un known) date) 07/05/22 21:30 Dose: unknown) Not Given (unknown) (no (unknown) (unknown) Last Admin: (units (un known) date) 07/05/22 21:38 Dose: unknown) 1 mcg/min, 3.75 mls/hr (unknown) (no (unknown) (unknown) Last Admin: (units (un known) date) 07/05/22 21:57 Dose: unknown) Not Given (unknown) (no (unknown) (unknown) Last Admin: (units (un known) date) 07/05/22 22:50 Dose: unknown) 80 mg (unknown) (no (unknown) (unknown) Last Infusion: (units (unknown) date) 07/05/22 19:24 Dose: unknown) 0 mls/hr (unknown) (no (unknown) (unknown) Last Infusion: (units (unknown) date) 07/05/22 19:40 Dose: unknown) 0 mls/hr (unknown) (no (unknown) (unknown) Last Infusion: (units (unknown) date) 07/05/22 21:28 Dose: unknown) 0 mls/hr (unknown) (no (unknown) (unknown) Last Infusion: (units (unknown) date) 07/05/22 23:53 Dose: unknown) 6 mg/hr, 30 mls/hr (unknown) (no (unknown) (unknown) Last Titration: (units (unknown) date) 07/05/22 21:50 Dose: unknown) 2 mcg/kg/hr, 31.752 mls/hr (unknown) (no (unknown) (unknown) Last Titration: (units (unknown) date) 07/05/22 23:52 Dose: unknown) 25 mcg/kg/min, 9.525 mls/hr (unknown) (no (unknown) (unknown) Lorazepam (units (unkn own) date) (Lorazepam 2 Mg/Ml unknown) Inj) 0.5 mg IV NOW ONE (unknown) (no (unknown) (unknown) Lymph # (Auto) (units (unknown) date) (9361-8491) /uL unknown) (unknown) (no (unknown) (unknown) Lymph # (Auto) 400 (units (unknown) date) L (3843-5101) /uL unknown) (unknown) (no (unknown) (unknown) Lymph % (Auto) (units (unknown) date) (25-40) % unknown) (unknown) (no (unknown) (unknown) Lymph % (Auto) 3.9 (units (unknown) date) L (25-40) % unknown) (unknown) (no (unknown) (unknown) MCH (26-34) PG (units (unknown) date) unknown) (unknown) (no (unknown) (unknown) MCH 31.3 (26-34) PG (unit s (unknown) date) unknown) (unknown) (no (unknown) (unknown) MCHC (30-36) % (units (unknown) date) unknown) (unknown) (no (unknown) (unknown) MCHC 33.0 (30-36) % (unit s (unknown) date) unknown) (unknown) (no (unknown) (unknown) MCV (80-100) fL (units (unknown) date) unknown) (unknown) (no (unknown) (unknown) MCV 94.9 (80-100) (units (unknown) date) fL unknown) (unknown) (no (unknown) (unknown) MDM - Allergic (units (unknown) date) Reaction unknown) (unknown) (no (unknown) (unknown) 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 (unknown) (no (unknown) (unknown) Marijuana use, (units (unknown) date) continuous unknown) (unknown) (no (unknown) (unknown) Medical History (units (unknown) date) (Reviewed 04/13/22 @ unknown) 09:52 by Mine Harrington DO) (unknown) (no (unknown) (unknown) Medication (units (unk nown) date) Instructions unknown) Recorded (unknown) (no (unknown) (unknown) Methylprednisolone (units (unknown) date) (Methylprednisolone unknown) 125 Mg/2 Ml Vial) 125 mg IV NOW ONE (unknown) (no (unknown) (unknown) Midazolam HCl (units ( unknown) date) (Midazolam 5 Mg/Ml unknown) Vial) 4 mg IV NOW ONE (unknown) (no (unknown) (unknown) Midazolam HCl 50 (units (unknown) date) mg/ Dextrose 250 mls unknown) @ 25 mls/hr IV TITRATE KIRIT; Protocol (unknown) (no (unknown) (unknown) Mode of arrival: (units (unknown) date) Ambulatory unknown) (unknown) (no (unknown) (unknown) [place] # (Auto) (units ( unknown) date) (0-900) /uL unknown) (unknown) (no (unknown) (unknown) [place] # (Auto) 100 (units (unknown) date) (0-900) /uL unknown) (unknown) (no (unknown) (unknown) [place] % (Auto) (units ( unknown) date) (3-14) % unknown) (unknown) (no (unknown) (unknown) [place] % (Auto) 1.1 L (unit s (unknown) date) (3-14) % unknown) (unknown) (no (unknown) (unknown) Mother Diabetes (units (unknown) date) mellitus unknown) (unknown) (no (unknown) (unknown) Neut # (Auto) (units ( unknown) date) (5864-1616) /uL unknown) (unknown) (no (unknown) (unknown) Neut # (Auto) [id number] (unit s (unknown) date) H (0522-3105) /uL unknown) (unknown) (no (unknown) (unknown) Neut % (Auto) (units ( unknown) date) (50-75) % unknown) (unknown) (no (unknown) (unknown) Neut % (Auto) 94.4 (units (unknown) date) H (50-75) % unknown) (unknown) (no (unknown) (unknown) Ordered: (units (unkno wn) date) unknown) (unknown) (no (unknown) (unknown) Orders (units (unkno wn) date) unknown) (unknown) (no (unknown) (unknown) Other Colon cancer (units (unknown) date) unknown) (unknown) (no (unknown) (unknown) Oxygen Delivery (units (unknown) date) Method 07/05/22 unknown) 18:19 (unknown) (no (unknown) (unknown) Oxygen Delivery (units (unknown) date) Method Room Air Room unknown) Air (unknown) (no (unknown) (unknown) Oxygen Delivery (units (unknown) date) Method unknown) (unknown) (no (unknown) (unknown) PRN Reason: (units (un known) date) Sedation unknown) (unknown) (no (unknown) (unknown) PT STATES (units (unkn own) date) unknown) (unknown) (no (unknown) (unknown) Pancreatitis (units (u nknown) date) unknown) (unknown) (no (unknown) (unknown) Patient (units (unkno wn) date) Disposition: unknown) Admitted As Inpatient (unknown) (no (unknown) (unknown) Patient History (units (unknown) date) unknown) (unknown) (no (unknown) (unknown) Patient: (units (unkno wn) date) Dameon Caputo MR#: unknown) [id number] (unknown) (no (unknown) (unknown) Plt Count (150-400) (unit s (unknown) date) X103/uL unknown) (unknown) (no (unknown) (unknown) Plt Count 238 (units ( unknown) date) (150-400) X103/uL unknown) (unknown) (no (unknown) (unknown) Point of Care (units ( unknown) date) Testing unknown) (unknown) (no (unknown) (unknown) Potassium (3.4-5.1) (unit s (unknown) date) mmol/L unknown) (unknown) (no (unknown) (unknown) Potassium 3.5 (units ( unknown) date) (3.4-5.1) mmol/L unknown) (unknown) (no (unknown) (unknown) Test (units (unknown) date) Results Negative unknown) (unknown) (no (unknown) (unknown) Previous Rx's (units ( unknown) date) unknown) (unknown) (no (unknown) (unknown) Propofol (Propofol (units (unknown) date) 200 Mg/20 Ml Vial) unknown) 80 mg IV Q10MIN PRN (unknown) (no (unknown) (unknown) Propofol (Propofol) (unit s (unknown) date) 1,000 mg in 100 mls unknown) @ 1.905 mls/hr IV TITRATE KIRIT; Protocol (unknown) (no (unknown) (unknown) Pulse Oximetry 100 (units (unknown) date) 100 unknown) (unknown) (no (unknown) (unknown) Pulse Oximetry 100 (units (unknown) date) unknown) (unknown) (no (unknown) (unknown) Pulse Oximetry 85 L (unit s (unknown) date) unknown) (unknown) (no (unknown) (unknown) Pulse Oximetry 90 L (unit s (unknown) date) 99 unknown) (unknown) (no (unknown) (unknown) Pulse Oximetry 95 (units (unknown) date) 96 unknown) (unknown) (no (unknown) (unknown) Pulse Oximetry 95 (units (unknown) date) unknown) (unknown) (no (unknown) (unknown) Pulse Oximetry 96 (units (unknown) date) 96 unknown) (unknown) (no (unknown) (unknown) Pulse Oximetry 96 (units (unknown) date) unknown) (unknown) (no (unknown) (unknown) Pulse Oximetry 98 (units (unknown) date) 07/05/22 18:19 unknown) (unknown) (no (unknown) (unknown) Pulse Oximetry 98 (units (unknown) date) 98 unknown) (unknown) (no (unknown) (unknown) Pulse Oximetry 98 (units (unknown) date) 99 unknown) (unknown) (no (unknown) (unknown) Pulse Oximetry 98 (units (unknown) date) unknown) (unknown) (no (unknown) (unknown) Pulse Oximetry 99 (units (unknown) date) 97 unknown) (unknown) (no (unknown) (unknown) Pulse Oximetry 99 (units (unknown) date) 99 unknown) (unknown) (no (unknown) (unknown) Pulse Oximetry 99 (units (unknown) date) unknown) (unknown) (no (unknown) (unknown) Pulse Rate 104 H (units (unknown) date) unknown) (unknown) (no (unknown) (unknown) Pulse Rate 105 H (units (unknown) date) unknown) (unknown) (no (unknown) (unknown) Pulse Rate 108 H (units (unknown) date) unknown) (unknown) (no (unknown) (unknown) Pulse Rate 110 H (units (unknown) date) 127 H unknown) (unknown) (no (unknown) (unknown) Pulse Rate 115 H (units (unknown) date) unknown) (unknown) (no (unknown) (unknown) Pulse Rate 121 H (units (unknown) date) 109 H unknown) (unknown) (no (unknown) (unknown) Pulse Rate 129 H (units (unknown) date) 135 H unknown) (unknown) (no (unknown) (unknown) Pulse Rate 129 H (units (unknown) date) unknown) (unknown) (no (unknown) (unknown) Pulse Rate 134 H (units (unknown) date) unknown) (unknown) (no (unknown) (unknown) Pulse Rate 137 H (units (unknown) date) 135 H unknown) (unknown) (no (unknown) (unknown) Pulse Rate 138 H (units (unknown) date) 137 H unknown) (unknown) (no (unknown) (unknown) Pulse Rate 139 H (units (unknown) date) unknown) (unknown) (no (unknown) (unknown) Pulse Rate 87 96 H (units (unknown) date) unknown) (unknown) (no (unknown) (unknown) Pulse Rate 91 H (units (unknown) date) unknown) (unknown) (no (unknown) (unknown) Pulse Rate 95 H 94 (units (unknown) date) H unknown) (unknown) (no (unknown) (unknown) Pulse Rate 96 H (units (unknown) date) 07/05/22 18:19 unknown) (unknown) (no (unknown) (unknown) Pulse Rate 96 H 75 (units (unknown) date) unknown) (unknown) (no (unknown) (unknown) Pulse Rate 98 H 97 (units (unknown) date) H unknown) (unknown) (no (unknown) (unknown) RBC (4.0-5.2) (units ( unknown) date) X106/uL unknown) (unknown) (no (unknown) (unknown) RBC 3.93 L (units (unk nown) date) (4.0-5.2) X106/uL unknown) (unknown) (no (unknown) (unknown) RDW (11.6-14.8) % (units (unknown) date) unknown) (unknown) (no (unknown) (unknown) RDW 13.2 (units (unkno wn) date) (11.6-14.8) % unknown) (unknown) (no (unknown) (unknown) Related Data (units (u nknown) date) unknown) (unknown) (no (unknown) (unknown) Respiratory Rate 16 (unit s (unknown) date) 16 unknown) (unknown) (no (unknown) (unknown) Respiratory Rate 16 (unit s (unknown) date) unknown) (unknown) (no (unknown) (unknown) Respiratory Rate 18 (unit s (unknown) date) 07/05/22 18:19 unknown) (unknown) (no (unknown) (unknown) Respiratory Rate 18 (unit s (unknown) date) unknown) (unknown) (no (unknown) (unknown) Respiratory Rate 19 (unit s (unknown) date) 24 unknown) (unknown) (no (unknown) (unknown) Respiratory Rate 22 (unit s (unknown) date) unknown) (unknown) (no (unknown) (unknown) Respiratory Rate 24 (unit s (unknown) date) 34 H unknown) (unknown) (no (unknown) (unknown) Respiratory Rate 24 (unit s (unknown) date) unknown) (unknown) (no (unknown) (unknown) Respiratory Rate 25 (unit s (unknown) date) H 25 H unknown) (unknown) (no (unknown) (unknown) Respiratory Rate 26 (unit s (unknown) date) H 25 H unknown) (unknown) (no (unknown) (unknown) Respiratory Rate 26 (unit s (unknown) date) H 37 H unknown) (unknown) (no (unknown) (unknown) Respiratory Rate 26 (unit s (unknown) date) H unknown) (unknown) (no (unknown) (unknown) Respiratory Rate 27 (unit s (unknown) date) H 16 unknown) (unknown) (no (unknown) (unknown) Respiratory Rate 52 (unit s (unknown) date) H unknown) (unknown) (no (unknown) (unknown) Respiratory Rate (units (unknown) date) unknown) (unknown) (no (unknown) (unknown) Result diagrams: (units (unknown) date) unknown) (unknown) (no (unknown) (unknown) Rocuronium [place] (units (unknown) date) (Rocuronium 50 Mg/5 unknown) Ml Inj) 100 mg IV NOW ONE (unknown) (no (unknown) (unknown) Signed By: (units (unk nown) date) unknown) (unknown) (no (unknown) (unknown) Smoking Status: (units (unknown) date) Current every day unknown) smoker (unknown) (no (unknown) (unknown) Social History (units (unknown) date) (Reviewed 04/13/22 @ unknown) 09:52 by Mine Harrington DO) (unknown) (no (unknown) (unknown) Sodium (137-145) (units (unknown) date) mmol/L unknown) (unknown) (no (unknown) (unknown) Sodium 143 (units (unk nown) date) (137-145) mmol/L unknown) (unknown) (no (unknown) (unknown) Sodium Chloride (units (unknown) date) (Normal Saline 0.9%) unknown) 1,000 mls @ 1,000 mls/hr IV BOLUS ONE (unknown) (no (unknown) (unknown) Source: patient (units (unknown) date) unknown) (unknown) (no (unknown) (unknown) Stated complaint: (units (unknown) date) Keeps biting tongue, unknown) Jaw clenched (unknown) (no (unknown) (unknown) Stop: 07/05/22 (units (unknown) date) 18:25 unknown) (unknown) (no (unknown) (unknown) Stop: 07/05/22 (units (unknown) date) 18:26 unknown) (unknown) (no (unknown) (unknown) Stop: 07/05/22 (units (unknown) date) 18:29 unknown) (unknown) (no (unknown) (unknown) Stop: 07/05/22 (units (unknown) date) 18:48 unknown) (unknown) (no (unknown) (unknown) Stop: 07/05/22 (units (unknown) date) 19:05 unknown) (unknown) (no (unknown) (unknown) Stop: 07/05/22 (units (unknown) date) 19:25 unknown) (unknown) (no (unknown) (unknown) Stop: 07/05/22 (units (unknown) date) 19:35 unknown) (unknown) (no (unknown) (unknown) Stop: 07/05/22 (units (unknown) date) 20:20 unknown) (unknown) (no (unknown) (unknown) Stop: 07/05/22 (units (unknown) date) 20:21 unknown) (unknown) (no (unknown) (unknown) Stop: 07/05/22 (units (unknown) date) 21:03 unknown) (unknown) (no (unknown) (unknown) Stop: 07/05/22 (units (unknown) date) 21:49 unknown) (unknown) (no (unknown) (unknown) Substance Use Type: (unit s (unknown) date) former substance unknown) user, marijuana, crack/cocaine and (unknown) (no (unknown) (unknown) Succinylcholine (units (unknown) date) Chloride unknown) (Succinylcholine 200 Mg/10 Ml Vial) 120 mg IV NOW ONE (unknown) (no (unknown) (unknown) Surgical History (units (unknown) date) (Reviewed 04/13/22 @ unknown) 09:52 by Mine Harrington DO) (unknown) (no (unknown) (unknown) TAKE WV (units (unkno wn) date) unknown) (unknown) (no (unknown) (unknown) TO IV SITE (units (unk nown) date) unknown) (unknown) (no (unknown) (unknown) This critical care (units (unknown) date) time includes unknown) consultation with family and other consulting (unknown) (no (unknown) (unknown) Time Seen by (units (u nknown) date) Provider: 07/05/22 unknown) 18:10 (unknown) (no (unknown) (unknown) Titration: 07/05/22 (unit s (unknown) date) 20:35 Dose: 20 unknown) mcg/kg/min, 7.62 mls/hr (unknown) (no (unknown) (unknown) Titration: 07/05/22 (unit s (unknown) date) 20:45 Dose: 35 unknown) mcg/kg/min, 13.336 mls/hr (unknown) (no (unknown) (unknown) Titration: 07/05/22 (unit s (unknown) date) 21:40 Dose: 1.5 unknown) mcg/kg/hr, 23.814 mls/hr (unknown) (no (unknown) (unknown) Titration: 07/05/22 (unit s (unknown) date) 23:43 Dose: 30 unknown) mcg/kg/min, 11.431 mls/hr (unknown) (no (unknown) (unknown) Total Bilirubin (units (unknown) date) (0.2-1.3) mg/dL unknown) (unknown) (no (unknown) (unknown) Total Bilirubin 0.5 (unit s (unknown) date) (0.2-1.3) mg/dL unknown) (unknown) (no (unknown) (unknown) Total Critical Care (unit s (unknown) date) Time: 39 unknown) (unknown) (no (unknown) (unknown) Total Protein (units ( unknown) date) (6.3-8.2) g/dL unknown) (unknown) (no (unknown) (unknown) Total Protein 7.7 (units (unknown) date) (6.3-8.2) g/dL unknown) (unknown) (no (unknown) (unknown) Tranexamic Acid (units (unknown) date) 1,000 mg/ (Sodium unknown) Chloride) 100 mls @ 200 mls/hr IV NOW ONE (unknown) (no (unknown) (unknown) U Benzodiazepines (units (unknown) date) Scrn (Negative) unknown) (unknown) (no (unknown) (unknown) U Benzodiazepines (units (unknown) date) Scrn Negative unknown) (Negative) (unknown) (no (unknown) (unknown) U Marijuana (THC) (units (unknown) date) Screen (Negative) unknown) (unknown) (no (unknown) (unknown) U Marijuana (THC) (units (unknown) date) Screen Positive H unknown) (Negative) (unknown) (no (unknown) (unknown) U Methamphetamines (units (unknown) date) Scrn (Negative) unknown) (unknown) (no (unknown) (unknown) U Methamphetamines (units (unknown) date) Scrn Negative unknown) (Negative) (unknown) (no (unknown) (unknown) U Opiates 300ng/mL (units (unknown) date) cut (Negative) unknown) (unknown) (no (unknown) (unknown) U Opiates 300ng/mL (units (unknown) date) cut Negative unknown) (Negative) (unknown) (no (unknown) (unknown) U Tricyclic (units (un known) date) Antidepress unknown) (Negative) (unknown) (no (unknown) (unknown) U Tricyclic (units (un known) date) Antidepress Negative unknown) (Negative) (unknown) (no (unknown) (unknown) UA Complete (units (un known) date) [Urinalysis and unknown) Microscopic] Stat (unknown) (no (unknown) (unknown) Ur Amphetamines (units (unknown) date) Screen (Negative) unknown) (unknown) (no (unknown) (unknown) Ur Amphetamines (units (unknown) date) Screen Negative unknown) (Negative) (unknown) (no (unknown) (unknown) Ur Barbiturates (units (unknown) date) Screen (Negative) unknown) (unknown) (no (unknown) (unknown) Ur Barbiturates (units (unknown) date) Screen Negative unknown) (Negative) (unknown) (no (unknown) (unknown) Ur Culture (units (unk nown) date) Indicated? Cult not unknown) indicated (unknown) (no (unknown) (unknown) Ur Culture (units (unk nown) date) Indicated? unknown) (unknown) (no (unknown) (unknown) Ur Leukocyte (units (u nknown) date) Esterase (NEGATIVE) unknown) (unknown) (no (unknown) (unknown) Ur Leukocyte (units (u nknown) date) Esterase Negative unknown) (NEGATIVE) (unknown) (no (unknown) (unknown) Ur MDMA Scrn (units (u nknown) date) (Ecstasy) (Negative) unknown) (unknown) (no (unknown) (unknown) Ur MDMA Scrn (units (u nknown) date) (Ecstasy) Negative unknown) (Negative) (unknown) (no (unknown) (unknown) Ur Oxycodone Screen (unit s (unknown) date) (Negative) unknown) (unknown) (no (unknown) (unknown) Ur Oxycodone Screen (unit s (unknown) date) Negative (Negative) unknown) (unknown) (no (unknown) (unknown) Ur Phencyclidine (units (unknown) date) Scrn (Negative) unknown) (unknown) (no (unknown) (unknown) Ur Phencyclidine (units (unknown) date) Scrn Negative unknown) (Negative) (unknown) (no (unknown) (unknown) Ur Specific [place] (unit s (unknown) date) (1.000-1.035) unknown) (unknown) (no (unknown) (unknown) Ur Specific [place] (unit s (unknown) date) 1.010 (1.000-1.035) unknown) (unknown) (no (unknown) (unknown) Ur Squamous Epith (units (unknown) date) Cells (0-5/HPF) unknown) (unknown) (no (unknown) (unknown) Ur Squamous Epith (units (unknown) date) Cells 0-1 /hpf unknown) (0-5/HPF) (unknown) (no (unknown) (unknown) Ur Transition Epith (unit s (unknown) date) Cell (0-5/HPF) unknown) (unknown) (no (unknown) (unknown) Ur Transition Epith (unit s (unknown) date) Cell 0-1/hpf unknown) (0-5/HPF) (unknown) (no (unknown) (unknown) Urine Appearance (units (unknown) date) Clear unknown) (unknown) (no (unknown) (unknown) Urine Appearance (units (unknown) date) unknown) (unknown) (no (unknown) (unknown) Urine Bacteria (units (unknown) date) (None) unknown) (unknown) (no (unknown) (unknown) Urine Bacteria None (unit s (unknown) date) seen (None) unknown) (unknown) (no (unknown) (unknown) Urine Bilirubin (units (unknown) date) (NEGATIVE) unknown) (unknown) (no (unknown) (unknown) Urine Bilirubin (units (unknown) date) Negative (NEGATIVE) unknown) (unknown) (no (unknown) (unknown) Urine Cocaine (units ( unknown) date) Screen (Negative) unknown) (unknown) (no (unknown) (unknown) Urine Cocaine (units ( unknown) date) Screen Negative unknown) (Negative) (unknown) (no (unknown) (unknown) Urine Color Yellow (units (unknown) date) unknown) (unknown) (no (unknown) (unknown) Urine Color (units (un known) date) unknown) (unknown) (no (unknown) (unknown) Urine Dip (units (unkn own) date) unknown) (unknown) (no (unknown) (unknown) Urine Drug Screen, (units (unknown) date) Rapid Stat unknown) (unknown) (no (unknown) (unknown) Urine Glucose (UA) (units (unknown) date) (Negative) g/dL unknown) (unknown) (no (unknown) (unknown) Urine Glucose (UA) (units (unknown) date) 1+ H (Negative) g/dL unknown) (unknown) (no (unknown) (unknown) Urine Ketones (units ( unknown) date) (NEGATIVE) unknown) (unknown) (no (unknown) (unknown) Urine Ketones (units ( unknown) date) Negative (NEGATIVE) unknown) (unknown) (no (unknown) (unknown) Urine Methadone (units (unknown) date) Screen (Negative) unknown) (unknown) (no (unknown) (unknown) Urine Methadone (units (unknown) date) Screen Negative unknown) (Negative) (unknown) (no (unknown) (unknown) Urine Nitrate (units ( unknown) date) (Negative) unknown) (unknown) (no (unknown) (unknown) Urine Nitrate (units ( unknown) date) Negative (Negative) unknown) (unknown) (no (unknown) (unknown) Urine Occult Blood (units (unknown) date) (Negative) unknown) (unknown) (no (unknown) (unknown) Urine Occult Blood (units (unknown) date) Trace-lysed unknown) (Negative) (unknown) (no (unknown) (unknown) Urine Protein (units ( unknown) date) (Negative) unknown) (unknown) (no (unknown) (unknown) Urine Protein 1+ H (units (unknown) date) (Negative) unknown) (unknown) (no (unknown) (unknown) Urine RBC (0-5/HPF) (unit s (unknown) date) unknown) (unknown) (no (unknown) (unknown) Urine RBC 0-1/hpf (units (unknown) date) (0-5/HPF) unknown) (unknown) (no (unknown) (unknown) Urine Specific (units (unknown) date) [place] 1.020 unknown) (unknown) (no (unknown) (unknown) Urine Urobilinogen (units (unknown) date) (0.2) E.U./dL unknown) (unknown) (no (unknown) (unknown) Urine Urobilinogen (units (unknown) date) 0.2 (0.2) E.U./dL unknown) (unknown) (no (unknown) (unknown) Urine WBC (0-5/HPF) (unit s (unknown) date) unknown) (unknown) (no (unknown) (unknown) Urine WBC None seen (unit s (unknown) date) (0-5/HPF) unknown) (unknown) (no (unknown) (unknown) Urine pH (4.5-8.0) (units (unknown) date) unknown) (unknown) (no (unknown) (unknown) Urine pH 7.0 (units (u nknown) date) (4.5-8.0) unknown) (unknown) (no (unknown) (unknown) Vital Signs - 8 hr (units (unknown) date) unknown) (unknown) (no (unknown) (unknown) Vital Signs (units (un known) date) unknown) (unknown) (no (unknown) (unknown) Vital signs: (units (u nknown) date) unknown) (unknown) (no (unknown) (unknown) WBC (4.5-11.0) (units (unknown) date) X103/uL unknown) (unknown) (no (unknown) (unknown) WBC 11.1 H (units (unk nown) date) (4.5-11.0) X103/uL unknown) (unknown) (no (unknown) (unknown) XR chest 1V Stat (units (unknown) date) unknown) (unknown) (no (unknown) (unknown) [Embedded Image Not (unit s (unknown) date) Available] unknown) (unknown) (no (unknown) (unknown) [METOCLOPRAMIDE] (units (unknown) date) unknown) (unknown) (no (unknown) (unknown) alcohol intake (units (unknown) date) frequency: 3 or more unknown) drinks per day (unknown) (no (unknown) (unknown) alcohol intake: (units (unknown) date) current unknown) (unknown) (no (unknown) (unknown) bupropion HCl 100 (units (unknown) date) mg tablet,12 hr 100 unknown) mg PO DAILY #90 ea 04/14/22 (unknown) (no (unknown) (unknown) doctors, review of (units (unknown) date) records, and unknown) interpretation of data from labs, EKGs and (unknown) (no (unknown) (unknown) household members: (units (unknown) date) spouse unknown) (unknown) (no (unknown) (unknown) imaging as well as (units (unknown) date) managements of unknown) anaphylaxis with angioedema (unknown) (no (unknown) (unknown) latex [LATEX] (units ( unknown) date) Allergy Unknown unknown) Verified 04/13/22 09:42 (unknown) (no (unknown) (unknown) methamphetamine (units (unknown) date) unknown) (unknown) (no (unknown) (unknown) metoclopramide (units (unknown) date) AdvReac Unknown unknown) DYSTONIA Verified 04/13/22 09:42 (unknown) (no (unknown) (unknown) potassium chloride (units (unknown) date) 20 mEq 40 meq PO unknown) DAILY #90 tabs 04/14/22 (unknown) (no (unknown) (unknown) probability of a (units (unknown) date) significant, sudden unknown) or life-threatening deterioration that (unknown) (no (unknown) (unknown) promethazine (units (u nknown) date) [PROMETHAZINE] unknown) Allergy Mild ERYTHEMA Verified 04/13/22 09:42 (unknown) (no (unknown) (unknown) requires my full (units (unknown) date) and direct unknown) attention, intervention and personal management. (unknown) (no (unknown) (unknown) spironolactone 25 (units (unknown) date) mg tablet 25 mg PO unknown) DAILY #90 tabs 04/14/22 (unknown) (no (unknown) (unknown) sustained-release (units (unknown) date) unknown) (unknown) (no (unknown) (unknown) tablet,extended (units (unknown) date) release unknown) (unknown) (no (unknown) (unknown) tobacco type: (units ( unknown) date) cigarettes and unknown) vaping Result panel 658 (unknown) (no (unknown) (unknown) (no value) (units (unk nown) date) unknown) (unknown) (no (unknown) (unknown) (past 8 hours): (units (unknown) date) unknown) (unknown) (no (unknown) (unknown) 0.7 MCG/KG/HR (units ( unknown) date) unknown) (unknown) (no (unknown) (unknown) 00:07 (units (unkno wn) date) unknown) (unknown) (no (unknown) (unknown) 04/14/22 [Rx] (units ( unknown) date) unknown) (unknown) (no (unknown) (unknown) 1 MCG/MIN (units (unkn own) date) unknown) (unknown) (no (unknown) (unknown) 07/05/22 07/05/22 (units (unknown) date) 07/05/22 unknown) (unknown) (no (unknown) (unknown) 07/05/22 07/05/22 (units (unknown) date) unknown) (unknown) (no (unknown) (unknown) 07/05/22 22:56 (units (unknown) date) unknown) (unknown) (no (unknown) (unknown) 07/05/22 (units (unkno wn) date) unknown) (unknown) (no (unknown) (unknown) 18:19 07/05/22 (units (unknown) date) unknown) (unknown) (no (unknown) (unknown) 18:30 07/05/22 (units (unknown) date) unknown) (unknown) (no (unknown) (unknown) 19:40 (units (unkno wn) date) unknown) (unknown) (no (unknown) (unknown) 19:50 07/05/22 (units (unknown) date) unknown) (unknown) (no (unknown) (unknown) 20:00 07/05/22 (units (unknown) date) unknown) (unknown) (no (unknown) (unknown) 20:00 (units (unkno wn) date) unknown) (unknown) (no (unknown) (unknown) 20:10 07/05/22 (units (unknown) date) unknown) (unknown) (no (unknown) (unknown) 20:10 (units (unkno wn) date) unknown) (unknown) (no (unknown) (unknown) 20:17 07/05/22 (units (unknown) date) unknown) (unknown) (no (unknown) (unknown) 20:21 07/05/22 (units (unknown) date) unknown) (unknown) (no (unknown) (unknown) 20:21 (units (unkno wn) date) unknown) (unknown) (no (unknown) (unknown) 20:26 20:26 22:56 (units (unknown) date) unknown) (unknown) (no (unknown) (unknown) 20:30 07/05/22 (units (unknown) date) unknown) (unknown) (no (unknown) (unknown) 20:31 07/05/22 (units (unknown) date) unknown) (unknown) (no (unknown) (unknown) 20:31 (units (unkno wn) date) unknown) (unknown) (no (unknown) (unknown) 20:36 07/05/22 (units (unknown) date) unknown) (unknown) (no (unknown) (unknown) 20:36 (units (unkno wn) date) unknown) (unknown) (no (unknown) (unknown) 20:40 07/05/22 (units (unknown) date) unknown) (unknown) (no (unknown) (unknown) 20:50 07/05/22 (units (unknown) date) unknown) (unknown) (no (unknown) (unknown) 20:50 (units (unkno wn) date) unknown) (unknown) (no (unknown) (unknown) 21:00 07/05/22 (units (unknown) date) unknown) (unknown) (no (unknown) (unknown) 21:00 (units (unkno wn) date) unknown) (unknown) (no (unknown) (unknown) 21:10 07/05/22 (units (unknown) date) unknown) (unknown) (no (unknown) (unknown) 21:20 07/05/22 (units (unknown) date) unknown) (unknown) (no (unknown) (unknown) 21:20 (units (unkno wn) date) unknown) (unknown) (no (unknown) (unknown) 21:30 07/05/22 (units (unknown) date) unknown) (unknown) (no (unknown) (unknown) 21:30 (units (unkno wn) date) unknown) (unknown) (no (unknown) (unknown) 21:38 (units (unkno wn) date) unknown) (unknown) (no (unknown) (unknown) 21:40 07/05/22 (units (unknown) date) unknown) (unknown) (no (unknown) (unknown) 21:50 07/05/22 (units (unknown) date) unknown) (unknown) (no (unknown) (unknown) 21:50 (units (unkno wn) date) unknown) (unknown) (no (unknown) (unknown) 21:57 (units (unkno wn) date) unknown) (unknown) (no (unknown) (unknown) 22:00 07/05/22 (units (unknown) date) unknown) (unknown) (no (unknown) (unknown) 22:00 (units (unkno wn) date) unknown) (unknown) (no (unknown) (unknown) 22:10 07/05/22 (units (unknown) date) unknown) (unknown) (no (unknown) (unknown) 22:15 07/05/22 (units (unknown) date) unknown) (unknown) (no (unknown) (unknown) 22:15 (units (unkno wn) date) unknown) (unknown) (no (unknown) (unknown) 22:20 07/05/22 (units (unknown) date) unknown) (unknown) (no (unknown) (unknown) 22:20 (units (unkno wn) date) unknown) (unknown) (no (unknown) (unknown) 22:30 07/05/22 (units (unknown) date) unknown) (unknown) (no (unknown) (unknown) 22:40 07/05/22 (units (unknown) date) unknown) (unknown) (no (unknown) (unknown) 22:40 (units (unkno wn) date) unknown) (unknown) (no (unknown) (unknown) 22:51 07/05/22 (units (unknown) date) unknown) (unknown) (no (unknown) (unknown) 22:51 (units (unkno wn) date) unknown) (unknown) (no (unknown) (unknown) 22:52 07/05/22 (units (unknown) date) unknown) (unknown) (no (unknown) (unknown) 22:56 22:56 (units (un known) date) unknown) (unknown) (no (unknown) (unknown) 22:59 (units (unkno wn) date) unknown) (unknown) (no (unknown) (unknown) 23:00 07/05/22 (units (unknown) date) unknown) (unknown) (no (unknown) (unknown) 23:10 07/05/22 (units (unknown) date) unknown) (unknown) (no (unknown) (unknown) 23:10 (units (unkno wn) date) unknown) (unknown) (no (unknown) (unknown) 23:20 07/05/22 (units (unknown) date) unknown) (unknown) (no (unknown) (unknown) 23:20 (units (unkno wn) date) unknown) (unknown) (no (unknown) (unknown) 23:30 07/05/22 (units (unknown) date) unknown) (unknown) (no (unknown) (unknown) 23:40 07/05/22 (units (unknown) date) unknown) (unknown) (no (unknown) (unknown) 23:40 (units (unkno wn) date) unknown) (unknown) (no (unknown) (unknown) 23:48 07/05/22 (units (unknown) date) unknown) (unknown) (no (unknown) (unknown) 23:48 (units (unkno wn) date) unknown) (unknown) (no (unknown) (unknown) 23:50 07/05/22 (units (unknown) date) unknown) (unknown) (no (unknown) (unknown) 23:50 07/06/22 (units (unknown) date) unknown) (unknown) (no (unknown) (unknown) 23:53 (units (unkno wn) date) unknown) (unknown) (no (unknown) (unknown) [id number] (units (unkno wn) date) unknown) (unknown) (no (unknown) (unknown) 5 MCG/KG/MIN (units (u nknown) date) unknown) (unknown) (no (unknown) (unknown) 5 MG/HR (units (unkno wn) date) unknown) (unknown) (no (unknown) (unknown) ALT 32 (units (unkno wn) date) unknown) (unknown) (no (unknown) (unknown) ALT (units (unkno wn) date) unknown) (unknown) (no (unknown) (unknown) AST 65 H (units (unkno wn) date) unknown) (unknown) (no (unknown) (unknown) AST (units (unkno wn) date) unknown) (unknown) (no (unknown) (unknown) Abscess (units (unkno wn) date) unknown) (unknown) (no (unknown) (unknown) Administration (units (unknown) date) unknown) (unknown) (no (unknown) (unknown) Age/Sex: 46 / F (units (unknown) date) unknown) (unknown) (no (unknown) (unknown) Albumin 4.2 (units (un known) date) unknown) (unknown) (no (unknown) (unknown) Albumin (units (unkno wn) date) unknown) (unknown) (no (unknown) (unknown) Albumin/Globulin (units (unknown) date) Ratio 1.2 unknown) (unknown) (no (unknown) (unknown) Albumin/Globulin (units (unknown) date) Ratio unknown) (unknown) (no (unknown) (unknown) Alkaline (units (unkno wn) date) Phosphatase 78 unknown) (unknown) (no (unknown) (unknown) Alkaline (units (unkno wn) date) Phosphatase unknown) (unknown) (no (unknown) (unknown) Assessment + Plan (units (unknown) date) unknown) (unknown) (no (unknown) (unknown) BUN 7 (units (unkno wn) date) unknown) (unknown) (no (unknown) (unknown) BUN (units (unkno wn) date) unknown) (unknown) (no (unknown) (unknown) BUN/Creatinine (units (unknown) date) Ratio 9.7 unknown) (unknown) (no (unknown) (unknown) BUN/Creatinine (units (unknown) date) Ratio unknown) (unknown) (no (unknown) (unknown) Baso # (Auto) 100 (units (unknown) date) unknown) (unknown) (no (unknown) (unknown) Baso # (Auto) (units ( unknown) date) unknown) (unknown) (no (unknown) (unknown) Baso % (Auto) 0.5 (units (unknown) date) unknown) (unknown) (no (unknown) (unknown) Baso % (Auto) (units ( unknown) date) unknown) (unknown) (no (unknown) (unknown) Blood Pressure (units (unknown) date) 104/75 106/76 unknown) (unknown) (no (unknown) (unknown) Blood Pressure (units (unknown) date) 105/73 unknown) (unknown) (no (unknown) (unknown) Blood Pressure (units (unknown) date) 106/73 77/50 L unknown) (unknown) (no (unknown) (unknown) Blood Pressure (units (unknown) date) 107/72 unknown) (unknown) (no (unknown) (unknown) Blood Pressure (units (unknown) date) 128/71 unknown) (unknown) (no (unknown) (unknown) Blood Pressure (units (unknown) date) 171/129 H 158/107 H unknown) (unknown) (no (unknown) (unknown) Blood Pressure (units (unknown) date) 172/104 H unknown) (unknown) (no (unknown) (unknown) Blood Pressure (units (unknown) date) 174/105 H unknown) (unknown) (no (unknown) (unknown) Blood Pressure (units (unknown) date) 178/121 H unknown) (unknown) (no (unknown) (unknown) Blood Pressure (units (unknown) date) 179/126 H unknown) (unknown) (no (unknown) (unknown) Blood Pressure (units (unknown) date) 186/107 H 178/108 H unknown) (unknown) (no (unknown) (unknown) Blood Pressure (units (unknown) date) 186/123 H unknown) (unknown) (no (unknown) (unknown) Blood Pressure (units (unknown) date) 187/129 H 175/118 H unknown) (unknown) (no (unknown) (unknown) Blood Pressure (units (unknown) date) 188/134 H unknown) (unknown) (no (unknown) (unknown) Blood Pressure (units (unknown) date) 201/136 H 174/111 H unknown) (unknown) (no (unknown) (unknown) Blood Pressure (units (unknown) date) 213/111 H 172/103 H unknown) (unknown) (no (unknown) (unknown) Blood Pressure (units (unknown) date) 217/106 H 244/157 H unknown) (unknown) (no (unknown) (unknown) Blood Pressure (units (unknown) date) 87/61 L 103/66 unknown) (unknown) (no (unknown) (unknown) Blood Pressure (units (unknown) date) 89/59 L 91/60 unknown) (unknown) (no (unknown) (unknown) Blood Pressure (units (unknown) date) 91/63 unknown) (unknown) (no (unknown) (unknown) Blood Pressure (units (unknown) date) 93/65 unknown) (unknown) (no (unknown) (unknown) Blood Pressure (units (unknown) date) 96/61 96/64 unknown) (unknown) (no (unknown) (unknown) Blood Type O (units (u nknown) date) Positive unknown) (unknown) (no (unknown) (unknown) Blood Type (units (unk nown) date) unknown) (unknown) (no (unknown) (unknown) Calcium 8.0 L (units ( unknown) date) unknown) (unknown) (no (unknown) (unknown) Calcium (units (unkno wn) date) unknown) (unknown) (no (unknown) (unknown) Carbon Dioxide 24 (units (unknown) date) unknown) (unknown) (no (unknown) (unknown) Carbon Dioxide (units (unknown) date) unknown) (unknown) (no (unknown) (unknown) Chief complaint: (units (unknown) date) Keeps biting unknown) tongue, Jaw clenched (unknown) (no (unknown) (unknown) Chloride 106 (units (u nknown) date) unknown) (unknown) (no (unknown) (unknown) Chloride (units (unkno wn) date) unknown) (unknown) (no (unknown) (unknown) Chronic abdominal (units (unknown) date) pain unknown) (unknown) (no (unknown) (unknown) Consent obtained (units (unknown) date) for unknown) tele-therapy assistant care: Yes (unknown) (no (unknown) (unknown) Consult details (units (unknown) date) unknown) (unknown) (no (unknown) (unknown) Creatinine 0.72 (units (unknown) date) unknown) (unknown) (no (unknown) (unknown) Creatinine (units (unk nown) date) unknown) (unknown) (no (unknown) (unknown) Critical Care (units ( unknown) date) time: unknown) (unknown) (no (unknown) (unknown) Current (units (unkno wn) date) Medications unknown) (unknown) (no (unknown) (unknown) Cyclic vomiting (units (unknown) date) syndrome unknown) (unknown) (no (unknown) (unknown) : 1975 (units (unknown) date) Acct:[id number] unknown) (unknown) (no (unknown) (unknown) Date Patient Seen: (units (unknown) date) 07/06/22 unknown) (unknown) (no (unknown) (unknown) Date of Service: (units (unknown) date) 07/05/22 unknown) (unknown) (no (unknown) (unknown) Daughter (units (unkno wn) date) Angio-edema unknown) (unknown) (no (unknown) (unknown) Eos # (Auto) 0 (units (unknown) date) unknown) (unknown) (no (unknown) (unknown) Eos # (Auto) (units (u nknown) date) unknown) (unknown) (no (unknown) (unknown) Eos % (Auto) 0.1 L (units (unknown) date) unknown) (unknown) (no (unknown) (unknown) Eos % (Auto) (units (u nknown) date) unknown) (unknown) (no (unknown) (unknown) Epinephrine HCl 4 (units (unknown) date) mg/ Dextrose 250 unknown) mls @ 3.75 mls/hr 07/05/22 20:45 07/05/22 (unknown) (no (unknown) (unknown) Epinephrine HCl 4 (units (unknown) date) mg/ Dextrose 250 unknown) mls @ 3.75 mls/hr 07/05/22 21:00 07/05/22 (unknown) (no (unknown) (unknown) Estimated GFR > [...] date) Hypertension unknown) (unknown) (no (unknown) (unknown) Fentanyl 1,000 (units (unknown) date) mcg/ Dextrose 250 unknown) mls @ 11.113 mls/hr 07/05/22 21:00 07/05/22 (unknown) (no (unknown) (unknown) Generic Name Dose (units (unknown) date) Route Start Last unknown) Admin (unknown) (no (unknown) (unknown) Globulin 3.5 (units (u nknown) date) unknown) (unknown) (no (unknown) (unknown) Globulin (units (unkno wn) date) unknown) (unknown) (no (unknown) (unknown) Glucose 296 H (units ( unknown) date) unknown) (unknown) (no (unknown) (unknown) Glucose (units (unkno wn) date) unknown) (unknown) (no (unknown) (unknown) Hct 37.3 (units (unkno wn) date) unknown) (unknown) (no (unknown) (unknown) Hct (units (unkno wn) date) unknown) (unknown) (no (unknown) (unknown) Hgb 12.3 (units (unkno wn) date) unknown) (unknown) (no (unknown) (unknown) Hgb (units (unkno wn) date) unknown) (unknown) (no (unknown) (unknown) History of Present (units (unknown) date) Illness unknown) (unknown) (no (unknown) (unknown) Home Medications (units (unknown) date) unknown) (unknown) (no (unknown) (unknown) Hx of appendectomy (units (unknown) date) unknown) (unknown) (no (unknown) (unknown) Hx of (units (unkno wn) date) cholecystectomy unknown) (unknown) (no (unknown) (unknown) I spent a total of (units (unknown) date) [] minutes of unknown) critical care time on this patient's care (unknown) (no (unknown) (unknown) IF CAMERA (units (unkn own) date) ACTIVATED, patient unknown) seen via real-time interactive audiovisual (unknown) (no (unknown) (unknown) IV 1 mcg/min (units (u nknown) date) unknown) (unknown) (no (unknown) (unknown) IV 2 mcg/kg/hr (units (unknown) date) unknown) (unknown) (no (unknown) (unknown) IV 6 mg/hr (units (unk nown) date) unknown) (unknown) (no (unknown) (unknown) IV Not Given (units (u nknown) date) unknown) (unknown) (no (unknown) (unknown) Infusion (units (unkno wn) date) unknown) (unknown) (no (unknown) (unknown) [facility] (units (unknown) date) [address] unknown) [place] [address] (unknown) (no (unknown) (unknown) Laboratory Results (units (unknown) date) - last 24 hr unknown) (unknown) (no (unknown) (unknown) Labs (units (unkno wn) date) unknown) (unknown) (no (unknown) (unknown) Labs: (units (unkno wn) date) unknown) (unknown) (no (unknown) (unknown) Lymph # (Auto) 400 (units (unknown) date) L unknown) (unknown) (no (unknown) (unknown) Lymph # (Auto) (units (unknown) date) unknown) (unknown) (no (unknown) (unknown) Lymph % (Auto) 3.9 (units (unknown) date) L unknown) (unknown) (no (unknown) (unknown) Lymph % (Auto) (units (unknown) date) unknown) (unknown) (no (unknown) (unknown) MCH 31.3 (units (unkno wn) date) unknown) (unknown) (no (unknown) (unknown) MCH (units (unkno wn) date) unknown) (unknown) (no (unknown) (unknown) MCHC 33.0 (units (unkn own) date) unknown) (unknown) (no (unknown) (unknown) MCHC (units (unkno wn) date) unknown) (unknown) (no (unknown) (unknown) MCV 94.9 (units (unkno wn) date) unknown) (unknown) (no (unknown) (unknown) MCV (units (unkno wn) date) unknown) (unknown) (no (unknown) (unknown) 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 (unknown) (no (unknown) (unknown) Marijuana use, (units (unknown) date) continuous unknown) (unknown) (no (unknown) (unknown) Medical History (units (unknown) date) (Reviewed 04/13/22 unknown) @ 09:52 by Mine Harrington DO) (unknown) (no (unknown) (unknown) Medications: (units (u nknown) date) unknown) (unknown) (no (unknown) (unknown) Midazolam HCl 50 (units (unknown) date) mg/ Dextrose 250 unknown) mls @ 25 mls/hr 07/05/22 22:15 07/05/22 (unknown) (no (unknown) (unknown) [place] # (Auto) 100 (units (unknown) date) unknown) (unknown) (no (unknown) (unknown) [place] # (Auto) (units ( unknown) date) unknown) (unknown) (no (unknown) (unknown) [place] % (Auto) 1.1 (units (unknown) date) L unknown) (unknown) (no (unknown) (unknown) [place] % (Auto) (units ( unknown) date) unknown) (unknown) (no (unknown) (unknown) Mother Diabetes (units (unknown) date) mellitus unknown) (unknown) (no (unknown) (unknown) Narrative: (units (unk nown) date) unknown) (unknown) (no (unknown) (unknown) Neut # (Auto) (units ( unknown) date) [address] H unknown) (unknown) (no (unknown) (unknown) Neut # (Auto) (units ( unknown) date) unknown) (unknown) (no (unknown) (unknown) Neut % (Auto) 94.4 (units (unknown) date) H unknown) (unknown) (no (unknown) (unknown) Neut % (Auto) (units ( unknown) date) unknown) (unknown) (no (unknown) (unknown) Objective (units (unkn own) date) unknown) (unknown) (no (unknown) (unknown) Other Colon cancer (units (unknown) date) unknown) (unknown) (no (unknown) (unknown) Other (units (unkno wn) date) 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/roles: unknown) RN (unknown) (no (unknown) (unknown) Oxygen Delivery (units (unknown) date) Method Room Air unknown) Room Air (unknown) (no (unknown) (unknown) Oxygen Delivery (units (unknown) date) Method Room Air unknown) (unknown) (no (unknown) (unknown) Oxygen Delivery (units (unknown) date) Method unknown) (unknown) (no (unknown) (unknown) PFSH (units (unkno wn) date) unknown) (unknown) (no (unknown) (unknown) Pancreatitis (units (u nknown) date) unknown) (unknown) (no (unknown) (unknown) Patient Location: (units (unknown) date) ICU unknown) (unknown) (no (unknown) (unknown) Patient is a 46 (units (unknown) date) year old female unknown) with history of marijuana abuse, chronic (unknown) (no (unknown) (unknown) Patient: (units (unkno wn) date) Dameon Caputo MR#: unknown) [id number] (unknown) (no (unknown) (unknown) Plt Count 238 (units ( unknown) date) unknown) (unknown) (no (unknown) (unknown) Plt Count (units (unkn own) date) unknown) (unknown) (no (unknown) (unknown) Potassium 3.5 (units ( unknown) date) unknown) (unknown) (no (unknown) (unknown) Potassium (units (unkn own) date) unknown) (unknown) (no (unknown) (unknown) Propofol 1,000 mg (units (unknown) date) in 100 mls @ 1.905 unknown) mls/hr 07/05/22 20:30 07/05/22 23:52 (unknown) (no (unknown) (unknown) Propofol 1,000 mg (units (unknown) date) in 100 mls @ 1.905 unknown) mls/hr 07/05/22 21:00 07/05/22 21:30 (unknown) (no (unknown) (unknown) Propofol 200 Mg/20 (units (unknown) date) Ml Vial IV 80 mg unknown) (unknown) (no (unknown) (unknown) Propofol 80 mg (units (unknown) date) 07/05/22 20:48 unknown) 07/05/22 22:50 (unknown) (no (unknown) (unknown) Propofol IV 25 (units (unknown) date) mcg/kg/min unknown) (unknown) (no (unknown) (unknown) Propofol IV Not (units (unknown) date) Given unknown) (unknown) (no (unknown) (unknown) Protocol (units (unkno wn) date) unknown) (unknown) (no (unknown) (unknown) Provider location (units (unknown) date) (State): [place] unknown) (unknown) (no (unknown) (unknown) Provider: (units (unkn own) date) Paige Ramos MD unknown) (unknown) (no (unknown) (unknown) Pulse Oximetry 100 (units (unknown) date) 100 unknown) (unknown) (no (unknown) (unknown) Pulse Oximetry 100 (units (unknown) date) unknown) (unknown) (no (unknown) (unknown) Pulse Oximetry 85 (units (unknown) date) L unknown) (unknown) (no (unknown) (unknown) Pulse Oximetry 90 (units (unknown) date) L 99 unknown) (unknown) (no (unknown) (unknown) Pulse Oximetry 95 (units (unknown) date) 96 unknown) (unknown) (no (unknown) (unknown) Pulse Oximetry 95 (units (unknown) date) unknown) (unknown) (no (unknown) (unknown) Pulse Oximetry 96 (units (unknown) date) 96 unknown) (unknown) (no (unknown) (unknown) Pulse Oximetry 96 (units (unknown) date) 99 unknown) (unknown) (no (unknown) (unknown) Pulse Oximetry 96 (units (unknown) date) unknown) (unknown) (no (unknown) (unknown) Pulse Oximetry 98 (units (unknown) date) 98 unknown) (unknown) (no (unknown) (unknown) Pulse Oximetry 98 (units (unknown) date) 99 unknown) (unknown) (no (unknown) (unknown) Pulse Oximetry 98 (units (unknown) date) unknown) (unknown) (no (unknown) (unknown) Pulse Oximetry 99 (units (unknown) date) 97 unknown) (unknown) (no (unknown) (unknown) Pulse Oximetry 99 (units (unknown) date) 99 unknown) (unknown) (no (unknown) (unknown) Pulse Oximetry 99 (units (unknown) date) unknown) (unknown) (no (unknown) (unknown) Pulse Rate 104 H (units (unknown) date) unknown) (unknown) (no (unknown) (unknown) Pulse Rate 105 H (units (unknown) date) 96 H unknown) (unknown) (no (unknown) (unknown) Pulse Rate 108 H (units (unknown) date) unknown) (unknown) (no (unknown) (unknown) Pulse Rate 110 H (units (unknown) date) 127 H unknown) (unknown) (no (unknown) (unknown) Pulse Rate 115 H (units (unknown) date) unknown) (unknown) (no (unknown) (unknown) Pulse Rate 121 H (units (unknown) date) 109 H unknown) (unknown) (no (unknown) (unknown) Pulse Rate 129 H (units (unknown) date) 135 H unknown) (unknown) (no (unknown) (unknown) Pulse Rate 129 H (units (unknown) date) unknown) (unknown) (no (unknown) (unknown) Pulse Rate 134 H (units (unknown) date) unknown) (unknown) (no (unknown) (unknown) Pulse Rate 137 H (units (unknown) date) 135 H unknown) (unknown) (no (unknown) (unknown) Pulse Rate 138 H (units (unknown) date) 137 H unknown) (unknown) (no (unknown) (unknown) Pulse Rate 139 H (units (unknown) date) unknown) (unknown) (no (unknown) (unknown) Pulse Rate 87 96 H (units (unknown) date) unknown) (unknown) (no (unknown) (unknown) Pulse Rate 91 H 81 (units (unknown) date) unknown) (unknown) (no (unknown) (unknown) Pulse Rate 91 H (units (unknown) date) unknown) (unknown) (no (unknown) (unknown) Pulse Rate 93 H 92 (units (unknown) date) H unknown) (unknown) (no (unknown) (unknown) Pulse Rate 94 H 94 (units (unknown) date) H unknown) (unknown) (no (unknown) (unknown) Pulse Rate 95 H 94 (units (unknown) date) H unknown) (unknown) (no (unknown) (unknown) Pulse Rate 95 H (units (unknown) date) unknown) (unknown) (no (unknown) (unknown) Pulse Rate 96 H 75 (units (unknown) date) unknown) (unknown) (no (unknown) (unknown) Pulse Rate 98 H 97 (units (unknown) date) H unknown) (unknown) (no (unknown) (unknown) Q10MIN PRN (units (unk nown) date) Administration unknown) (unknown) (no (unknown) (unknown) RBC 3.93 L (units (unk nown) date) unknown) (unknown) (no (unknown) (unknown) RBC (units (unkno wn) date) unknown) (unknown) (no (unknown) (unknown) RDW 13.2 (units (unkno wn) date) unknown) (unknown) (no (unknown) (unknown) RDW (units (unkno wn) date) unknown) (unknown) (no (unknown) (unknown) Reason for (units (unk nown) date) consult: Angioedema unknown) (unknown) (no (unknown) (unknown) Respiratory Rate (units (unknown) date) 16 16 unknown) (unknown) (no (unknown) (unknown) Respiratory Rate (units (unknown) date) 16 unknown) (unknown) (no (unknown) (unknown) Respiratory Rate (units (unknown) date) 18 unknown) (unknown) (no (unknown) (unknown) Respiratory Rate (units (unknown) date) 19 24 unknown) (unknown) (no (unknown) (unknown) Respiratory Rate (units (unknown) date) 22 unknown) (unknown) (no (unknown) (unknown) Respiratory Rate (units (unknown) date) 24 34 H unknown) (unknown) (no (unknown) (unknown) Respiratory Rate (units (unknown) date) 24 unknown) (unknown) (no (unknown) (unknown) Respiratory Rate (units (unknown) date) 25 H 25 H unknown) (unknown) (no (unknown) (unknown) Respiratory Rate (units (unknown) date) 26 H 25 H unknown) (unknown) (no (unknown) (unknown) Respiratory Rate (units (unknown) date) 26 H 37 H unknown) (unknown) (no (unknown) (unknown) Respiratory Rate (units (unknown) date) 26 H unknown) (unknown) (no (unknown) (unknown) Respiratory Rate (units (unknown) date) 27 H 16 unknown) (unknown) (no (unknown) (unknown) Respiratory Rate (units (unknown) date) 32 H unknown) (unknown) (no (unknown) (unknown) Respiratory Rate (units (unknown) date) 33 H 25 H unknown) (unknown) (no (unknown) (unknown) Respiratory Rate (units (unknown) date) 35 H 31 H unknown) (unknown) (no (unknown) (unknown) Respiratory Rate (units (unknown) date) 38 H unknown) (unknown) (no (unknown) (unknown) Respiratory Rate (units (unknown) date) 42 H 42 H unknown) (unknown) (no (unknown) (unknown) Respiratory Rate (units (unknown) date) 52 H 39 H unknown) (unknown) (no (unknown) (unknown) Respiratory Rate (units (unknown) date) unknown) (unknown) (no (unknown) (unknown) Result Diagrams: (units (unknown) date) unknown) (unknown) (no (unknown) (unknown) Sedation (units (unkno wn) date) unknown) (unknown) (no (unknown) (unknown) Signed By: (units (unk nown) date) unknown) (unknown) (no (unknown) (unknown) Smoking Status: (units (unknown) date) Current every day unknown) smoker (unknown) (no (unknown) (unknown) Social History (units (unknown) date) (Reviewed 04/13/22 unknown) @ 09:52 by Mine Harrington DO) (unknown) (no (unknown) (unknown) Sodium 143 (units (unk nown) date) unknown) (unknown) (no (unknown) (unknown) Sodium (units (unkno wn) date) unknown) (unknown) (no (unknown) (unknown) Surgical History (units (unknown) date) (Reviewed 04/13/22 unknown) @ 09:52 by Mine Harrington DO) (unknown) (no (unknown) (unknown) TITRATE KIRIT 3.75 (units (unknown) date) mls/hr unknown) (unknown) (no (unknown) (unknown) TITRATE KIRIT 30 (units (unknown) date) mls/hr unknown) (unknown) (no (unknown) (unknown) TITRATE KIRIT 31.752 (units (unknown) date) mls/hr unknown) (unknown) (no (unknown) (unknown) TITRATE KIRIT 9.525 (units (unknown) date) mls/hr unknown) (unknown) (no (unknown) (unknown) TITRATE KIRIT (units (un known) date) unknown) (unknown) (no (unknown) (unknown) Teleintensivist (units (unknown) date) Consult Note unknown) (unknown) (no (unknown) (unknown) Time Spent With (units (unknown) date) Patient unknown) (unknown) (no (unknown) (unknown) Titration (units (unkn own) date) unknown) (unknown) (no (unknown) (unknown) Total Bilirubin (units (unknown) date) 0.5 unknown) (unknown) (no (unknown) (unknown) Total Bilirubin (units (unknown) date) unknown) (unknown) (no (unknown) (unknown) Total Protein 7.7 (units (unknown) date) unknown) (unknown) (no (unknown) (unknown) Total Protein (units ( unknown) date) unknown) (unknown) (no (unknown) (unknown) Trade Name Freq (units (unknown) date) PRN Reason Stop unknown) Dose Admin (unknown) (no (unknown) (unknown) U Benzodiazepines (units [...] Screen unknown) (unknown) (no (unknown) (unknown) Ur Culture (units (unk nown) date) Indicated? Cult not unknown) indicated (unknown) (no (unknown) (unknown) Ur Culture (units (unk nown) date) Indicated? unknown) (unknown) (no (unknown) (unknown) Ur Leukocyte (units (u nknown) date) Esterase Negative unknown) (unknown) (no (unknown) (unknown) Ur Leukocyte (units (u nknown) date) Esterase unknown) (unknown) (no (unknown) (unknown) Ur MDMA [...] Scrn unknown) (unknown) (no (unknown) (unknown) Ur Specific (units (un known) date) [place] 1.010 unknown) (unknown) (no (unknown) (unknown) Ur Specific (units (un known) date) [place] unknown) (unknown) (no (unknown) (unknown) Ur Squamous Epith (units (unknown) date) Cells 0-1 /hpf unknown) (unknown) (no (unknown) (unknown) Ur Squamous Epith (units (unknown) date) Cells unknown) (unknown) (no (unknown) (unknown) Ur Transition (units ( unknown) date) Epith Cell 0-1/hpf unknown) (unknown) (no (unknown) (unknown) Ur Transition (units ( unknown) date) Epith Cell unknown) (unknown) (no (unknown) (unknown) Urine Appearance (units (unknown) date) Clear unknown) (unknown) (no (unknown) (unknown) Urine Appearance (units (unknown) date) unknown) (unknown) (no (unknown) (unknown) Urine Bacteria (units (unknown) date) None seen unknown) (unknown) (no (unknown) (unknown) Urine Bacteria (units (unknown) date) unknown) (unknown) (no (unknown) (unknown) Urine Bilirubin (units (unknown) date) Negative unknown) (unknown) (no (unknown) (unknown) Urine Bilirubin (units (unknown) date) unknown) (unknown) (no (unknown) (unknown) Urine Cocaine (units ( unknown) date) Screen Negative unknown) (unknown) (no (unknown) (unknown) Urine Cocaine (units ( unknown) date) Screen unknown) (unknown) (no (unknown) (unknown) Urine Color Yellow (units (unknown) date) unknown) (unknown) (no (unknown) (unknown) Urine Color (units (un known) date) unknown) (unknown) (no (unknown) (unknown) Urine Glucose (UA) (units (unknown) date) 1+ H unknown) (unknown) (no (unknown) (unknown) Urine Glucose (UA) (units (unknown) date) unknown) (unknown) (no (unknown) (unknown) Urine Ketones (units ( unknown) date) Negative unknown) (unknown) (no (unknown) (unknown) Urine Ketones (units ( unknown) date) unknown) (unknown) (no (unknown) (unknown) Urine Methadone (units (unknown) date) Screen Negative unknown) (unknown) (no (unknown) (unknown) Urine Methadone (units (unknown) date) Screen unknown) (unknown) (no (unknown) (unknown) Urine Nitrate (units ( unknown) date) Negative unknown) (unknown) (no (unknown) (unknown) Urine Nitrate (units ( unknown) date) unknown) (unknown) (no (unknown) (unknown) Urine Occult Blood (units (unknown) date) Trace-lysed unknown) (unknown) (no (unknown) (unknown) Urine Occult Blood (units (unknown) date) unknown) (unknown) (no (unknown) (unknown) Urine Protein 1+ H (units (unknown) date) unknown) (unknown) [...] unknown) (unknown) (no (unknown) (unknown) Urine WBC None (units (unknown) date) seen unknown) (unknown) (no (unknown) (unknown) Urine WBC (units (unkn own) date) unknown) (unknown) (no (unknown) (unknown) Urine pH 7.0 (units (u nknown) date) unknown) (unknown) (no (unknown) (unknown) Urine pH (units (unkno wn) date) unknown) (unknown) (no (unknown) (unknown) Visit Medications (units (unknown) date) (administered) unknown) (unknown) (no (unknown) (unknown) Vital Signs (units (un known) date) unknown) (unknown) (no (unknown) (unknown) WBC 11.1 H (units (unk nown) date) unknown) (unknown) (no (unknown) (unknown) WBC (units (unkno wn) date) unknown) (unknown) (no (unknown) (unknown) [Embedded Image (units (unknown) date) Not Available] unknown) (unknown) (no (unknown) (unknown) abdominal pain, (units (unknown) date) pancreatitis, and unknown) MRSA infection who presents with tongue (unknown) (no (unknown) (unknown) alcohol intake: (units (unknown) date) current unknown) (unknown) (no (unknown) (unknown) bupropion HCl 100 (units (unknown) date) mg tablet,12 hr unknown) sustained-release 100 mg PO DAILY #90 ea (unknown) (no (unknown) (unknown) communication: (units (unknown) date) Camera activated unknown) (unknown) (no (unknown) (unknown) household members: (units (unknown) date) spouse unknown) (unknown) (no (unknown) (unknown) potassium chloride (units (unknown) date) 20 mEq unknown) tablet,extended release 40 meq PO DAILY #90 tabs (unknown) (no (unknown) (unknown) spironolactone 25 (units (unknown) date) mg tablet 25 mg PO unknown) DAILY #90 tabs 04/14/22 [Rx] (unknown) (no (unknown) (unknown) swelling. Per (units ( unknown) date) report, patient unknown) (unknown) (no (unknown) (unknown) today; this time (units (unknown) date) is exclusive of unknown) procedural time. Result panel [id number] (unknown) (no (unknown) (unknown) (no value) (units (unk nown) date) unknown) (unknown) (no (unknown) (unknown) # Acute (units (unkno wn) date) encephalopathy unknown) (unknown) (no (unknown) (unknown) # Acute (units (unkno wn) date) respiratory unknown) insufficiency (unknown) (no (unknown) (unknown) (past 8 hours): (units (unknown) date) unknown) (unknown) (no (unknown) (unknown) -- DAily SAT (units (u nknown) date) unknown) (unknown) (no (unknown) (unknown) -- Daily CAM ICU (units (unknown) date) unknown) (unknown) (no (unknown) (unknown) -- Sedated w/ (units ( unknown) date) propofol, versed, unknown) and fentanyl (unknown) (no (unknown) (unknown) -- Titrate (units (unk nown) date) sedation to unknown) maintain RASS goal -1 to 0 (unknown) (no (unknown) (unknown) -- Utox positive (units (unknown) date) for THC unknown) (unknown) (no (unknown) (unknown) 0.7 MCG/KG/HR (units ( unknown) date) unknown) (unknown) (no (unknown) (unknown) 00:07 (units (unkno wn) date) unknown) (unknown) (no (unknown) (unknown) 04/14/22 [Rx] (units ( unknown) date) unknown) (unknown) (no (unknown) (unknown) 1 MCG/MIN (units (unkn own) date) unknown) (unknown) (no (unknown) (unknown) 07/05/22 07/05/22 (units (unknown) date) 07/05/22 unknown) (unknown) (no (unknown) (unknown) 07/05/22 07/05/22 (units (unknown) date) unknown) (unknown) (no (unknown) (unknown) 07/05/22 22:56 (units (unknown) date) unknown) (unknown) (no (unknown) (unknown) 07/05/22 (units (unkno wn) date) unknown) (unknown) (no (unknown) (unknown) 18:19 07/05/22 (units (unknown) date) unknown) (unknown) (no (unknown) (unknown) 18:30 07/05/22 (units (unknown) date) unknown) (unknown) (no (unknown) (unknown) 19:40 (units (unkno wn) date) unknown) (unknown) (no (unknown) (unknown) 19:50 07/05/22 (units (unknown) date) unknown) (unknown) (no (unknown) (unknown) 20:00 07/05/22 (units (unknown) date) unknown) (unknown) (no (unknown) (unknown) 20:00 (units (unkno wn) date) unknown) (unknown) (no (unknown) (unknown) 20:10 07/05/22 (units (unknown) date) unknown) (unknown) (no (unknown) (unknown) 20:10 (units (unkno wn) date) unknown) (unknown) (no (unknown) (unknown) 20:17 07/05/22 (units (unknown) date) unknown) (unknown) (no (unknown) (unknown) 20:21 07/05/22 (units (unknown) date) unknown) (unknown) (no (unknown) (unknown) 20:21 (units (unkno wn) date) unknown) (unknown) (no (unknown) (unknown) 20:26 20:26 22:56 (units (unknown) date) unknown) (unknown) (no (unknown) (unknown) 20:30 07/05/22 (units (unknown) date) unknown) (unknown) (no (unknown) (unknown) 20:31 07/05/22 (units (unknown) date) unknown) (unknown) (no (unknown) (unknown) 20:31 (units (unkno wn) date) unknown) (unknown) (no (unknown) (unknown) 20:36 07/05/22 (units (unknown) date) unknown) (unknown) (no (unknown) (unknown) 20:36 (units (unkno wn) date) unknown) (unknown) (no (unknown) (unknown) 20:40 07/05/22 (units (unknown) date) unknown) (unknown) (no (unknown) (unknown) 20:50 07/05/22 (units (unknown) date) unknown) (unknown) (no (unknown) (unknown) 20:50 (units (unkno wn) date) unknown) (unknown) (no (unknown) (unknown) 21:00 07/05/22 (units (unknown) date) unknown) (unknown) (no (unknown) (unknown) 21:00 (units (unkno wn) date) unknown) (unknown) (no (unknown) (unknown) 21:10 07/05/22 (units (unknown) date) unknown) (unknown) (no (unknown) (unknown) 21:20 07/05/22 (units (unknown) date) unknown) (unknown) (no (unknown) (unknown) 21:20 (units (unkno wn) date) unknown) (unknown) (no (unknown) (unknown) 21:30 07/05/22 (units (unknown) date) unknown) (unknown) (no (unknown) (unknown) 21:30 (units (unkno wn) date) unknown) (unknown) (no (unknown) (unknown) 21:38 (units (unkno wn) date) unknown) (unknown) (no (unknown) (unknown) 21:40 07/05/22 (units (unknown) date) unknown) (unknown) (no (unknown) (unknown) 21:50 07/05/22 (units (unknown) date) unknown) (unknown) (no (unknown) (unknown) 21:50 (units (unkno wn) date) unknown) (unknown) (no (unknown) (unknown) 21:57 (units (unkno wn) date) unknown) (unknown) (no (unknown) (unknown) 22:00 07/05/22 (units (unknown) date) unknown) (unknown) (no (unknown) (unknown) 22:00 (units (unkno wn) date) unknown) (unknown) (no (unknown) (unknown) 22:10 07/05/22 (units (unknown) date) unknown) (unknown) (no (unknown) (unknown) 22:15 07/05/22 (units (unknown) date) unknown) (unknown) (no (unknown) (unknown) 22:15 (units (unkno wn) date) unknown) (unknown) (no (unknown) (unknown) 22:20 07/05/22 (units (unknown) date) unknown) (unknown) (no (unknown) (unknown) 22:20 (units (unkno wn) date) unknown) (unknown) (no (unknown) (unknown) 22:30 07/05/22 (units (unknown) date) unknown) (unknown) (no (unknown) (unknown) 22:40 07/05/22 (units (unknown) date) unknown) (unknown) (no (unknown) (unknown) 22:40 (units (unkno wn) date) unknown) (unknown) (no (unknown) (unknown) 22:51 07/05/22 (units (unknown) date) unknown) (unknown) (no (unknown) (unknown) 22:51 (units (unkno wn) date) unknown) (unknown) (no (unknown) (unknown) 22:52 07/05/22 (units (unknown) date) unknown) (unknown) (no (unknown) (unknown) 22:56 22:56 (units (un known) date) unknown) (unknown) (no (unknown) (unknown) 22:59 (units (unkno wn) date) unknown) (unknown) (no (unknown) (unknown) 23:00 07/05/22 (units (unknown) date) unknown) (unknown) (no (unknown) (unknown) 23:10 07/05/22 (units (unknown) date) unknown) (unknown) (no (unknown) (unknown) 23:10 (units (unkno wn) date) unknown) (unknown) (no (unknown) (unknown) 23:20 07/05/22 (units (unknown) date) unknown) (unknown) (no (unknown) (unknown) 23:20 (units (unkno wn) date) unknown) (unknown) (no (unknown) (unknown) 23:30 07/05/22 (units (unknown) date) unknown) (unknown) (no (unknown) (unknown) 23:40 07/05/22 (units (unknown) date) unknown) (unknown) (no (unknown) (unknown) 23:40 (units (unkno wn) date) unknown) (unknown) (no (unknown) (unknown) 23:48 07/05/22 (units (unknown) date) unknown) (unknown) (no (unknown) (unknown) 23:48 (units (unkno wn) date) unknown) (unknown) (no (unknown) (unknown) 23:50 07/05/22 (units (unknown) date) unknown) (unknown) (no (unknown) (unknown) 23:50 07/06/22 (units (unknown) date) unknown) (unknown) (no (unknown) (unknown) 23:53 (units (unkno wn) date) unknown) (unknown) (no (unknown) (unknown) [address] (units (unkno wn) date) unknown) (unknown) (no (unknown) (unknown) 5 MCG/KG/MIN (units (u nknown) date) unknown) (unknown) (no (unknown) (unknown) 5 MG/HR (units (unkno wn) date) unknown) (unknown) (no (unknown) (unknown) ALT 32 (units (unkno wn) date) unknown) (unknown) (no (unknown) (unknown) ALT (units (unkno wn) date) unknown) (unknown) (no (unknown) (unknown) AST 65 H (units (unkno wn) date) unknown) (unknown) (no (unknown) (unknown) AST (units (unkno wn) date) unknown) (unknown) (no (unknown) (unknown) Abscess (units (unkno wn) date) unknown) (unknown) (no (unknown) (unknown) Administration (units (unknown) date) unknown) (unknown) (no (unknown) (unknown) Age/Sex: 46 / F (units (unknown) date) unknown) (unknown) (no (unknown) (unknown) Albumin 4.2 (units (un known) date) unknown) (unknown) (no (unknown) (unknown) Albumin (units (unkno wn) date) unknown) (unknown) (no (unknown) (unknown) Albumin/Globulin (units (unknown) date) Ratio 1.2 unknown) (unknown) (no (unknown) (unknown) Albumin/Globulin (units (unknown) date) Ratio unknown) (unknown) (no (unknown) (unknown) Alkaline (units (unkno wn) date) Phosphatase 78 unknown) (unknown) (no (unknown) (unknown) Alkaline (units (unkno wn) date) Phosphatase unknown) (unknown) (no (unknown) (unknown) Assessment + Plan (units (unknown) date) narrative: unknown) (unknown) (no (unknown) (unknown) Assessment + Plan (units (unknown) date) unknown) (unknown) (no (unknown) (unknown) BUN 7 (units (unkno wn) date) unknown) (unknown) (no (unknown) (unknown) BUN (units (unkno wn) date) unknown) (unknown) (no (unknown) (unknown) BUN/Creatinine (units (unknown) date) Ratio 9.7 unknown) (unknown) (no (unknown) (unknown) BUN/Creatinine (units (unknown) date) Ratio unknown) (unknown) (no (unknown) (unknown) Baso # (Auto) 100 (units (unknown) date) unknown) (unknown) (no (unknown) (unknown) Baso # (Auto) (units ( unknown) date) unknown) (unknown) (no (unknown) (unknown) Baso % (Auto) 0.5 (units (unknown) date) unknown) (unknown) (no (unknown) (unknown) Baso % (Auto) (units ( unknown) date) unknown) (unknown) (no (unknown) (unknown) Blood Pressure (units (unknown) date) 104/75 106/76 unknown) (unknown) (no (unknown) (unknown) Blood Pressure (units (unknown) date) 105/73 unknown) (unknown) (no (unknown) (unknown) Blood Pressure (units (unknown) date) 106/73 77/50 L unknown) (unknown) (no (unknown) (unknown) Blood Pressure (units (unknown) date) 107/72 unknown) (unknown) (no (unknown) (unknown) Blood Pressure (units (unknown) date) 128/71 unknown) (unknown) (no (unknown) (unknown) Blood Pressure (units (unknown) date) 171/129 H 158/107 H unknown) (unknown) (no (unknown) (unknown) Blood Pressure (units (unknown) date) 172/104 H unknown) (unknown) (no (unknown) (unknown) Blood Pressure (units (unknown) date) 174/105 H unknown) (unknown) (no (unknown) (unknown) Blood Pressure (units (unknown) date) 178/121 H unknown) (unknown) (no (unknown) (unknown) Blood Pressure (units (unknown) date) 179/126 H unknown) (unknown) (no (unknown) (unknown) Blood Pressure (units (unknown) date) 186/107 H 178/108 H unknown) (unknown) (no (unknown) (unknown) Blood Pressure (units (unknown) date) 186/123 H unknown) (unknown) (no (unknown) (unknown) Blood Pressure (units (unknown) date) 187/129 H 175/118 H unknown) (unknown) (no (unknown) (unknown) Blood Pressure (units (unknown) date) 188/134 H unknown) (unknown) (no (unknown) (unknown) Blood Pressure (units (unknown) date) 201/136 H 174/111 H unknown) (unknown) (no (unknown) (unknown) Blood Pressure (units (unknown) date) 213/111 H 172/103 H unknown) (unknown) (no (unknown) (unknown) Blood Pressure (units (unknown) date) 217/106 H 244/157 H unknown) (unknown) (no (unknown) (unknown) Blood Pressure (units (unknown) date) 87/61 L 103/66 unknown) (unknown) (no (unknown) (unknown) Blood Pressure (units (unknown) date) 89/59 L 91/60 unknown) (unknown) (no (unknown) (unknown) Blood Pressure (units (unknown) date) 91/63 unknown) (unknown) (no (unknown) (unknown) Blood Pressure (units (unknown) date) 93/65 unknown) (unknown) (no (unknown) (unknown) Blood Pressure (units (unknown) date) 96/61 96/64 unknown) (unknown) (no (unknown) (unknown) Blood Type O (units (u nknown) date) Positive unknown) (unknown) (no (unknown) (unknown) Blood Type (units (unk nown) date) unknown) (unknown) (no (unknown) (unknown) Calcium 8.0 L (units ( unknown) date) unknown) (unknown) (no (unknown) (unknown) Calcium (units (unkno wn) date) unknown) (unknown) (no (unknown) (unknown) Carbon Dioxide 24 (units (unknown) date) unknown) (unknown) (no (unknown) (unknown) Carbon Dioxide (units (unknown) date) unknown) (unknown) (no (unknown) (unknown) Chief complaint: (units (unknown) date) Keeps biting unknown) tongue, Jaw clenched (unknown) (no (unknown) (unknown) Chloride 106 (units (u nknown) date) unknown) (unknown) (no (unknown) (unknown) Chloride (units (unkno wn) date) unknown) (unknown) (no (unknown) (unknown) Chronic abdominal (units (unknown) date) pain unknown) (unknown) (no (unknown) (unknown) Consent obtained (units (unknown) date) for unknown) tele-therapy assistant care: Yes (unknown) (no (unknown) (unknown) Consult details (units (unknown) date) unknown) (unknown) (no (unknown) (unknown) Creatinine 0.72 (units (unknown) date) unknown) (unknown) (no (unknown) (unknown) Creatinine (units (unk nown) date) unknown) (unknown) (no (unknown) (unknown) Critical Care (units ( unknown) date) time: unknown) (unknown) (no (unknown) (unknown) Current (units (unkno wn) date) Medications unknown) (unknown) (no (unknown) (unknown) Cyclic vomiting (units (unknown) date) syndrome unknown) (unknown) (no (unknown) (unknown) : 1975 (units (unknown) date) Acct:[id number] unknown) (unknown) (no (unknown) (unknown) Date Patient Seen: (units (unknown) date) 07/06/22 unknown) (unknown) (no (unknown) (unknown) Date of Service: (units (unknown) date) 07/05/22 unknown) (unknown) (no (unknown) (unknown) Daughter (units (unkno wn) date) Angio-edema unknown) (unknown) (no (unknown) (unknown) ER, she developed (units (unknown) date) respiratory unknown) distress which she emergently intubated. Received (unknown) (no (unknown) (unknown) Eos # (Auto) 0 (units (unknown) date) unknown) (unknown) (no (unknown) (unknown) Eos # (Auto) (units (u nknown) date) unknown) (unknown) (no (unknown) (unknown) Eos % (Auto) 0.1 L (units (unknown) date) unknown) (unknown) (no (unknown) (unknown) Eos % (Auto) (units (u nknown) date) unknown) (unknown) (no (unknown) (unknown) Epinephrine HCl 4 (units (unknown) date) mg/ Dextrose 250 unknown) mls @ 3.75 mls/hr 07/05/22 20:45 07/05/22 (unknown) (no (unknown) (unknown) Epinephrine HCl 4 (units (unknown) date) mg/ Dextrose 250 unknown) mls @ 3.75 mls/hr 07/05/22 21:00 07/05/22 (unknown) (no (unknown) (unknown) Estimated GFR > 60 (units (unknown) date) unknown) (unknown) (no (unknown) (unknown) Estimated GFR (units ( unknown) date) unknown) (unknown) (no (unknown) (unknown) Exam Narrative: (units (unknown) date) unknown) (unknown) (no (unknown) (unknown) Exam (units (unkno wn) date) unknown) (unknown) (no (unknown) (unknown) FFP, TXA, and (units ( unknown) date) solumedrol. Started unknown) on epinephrine gtt and sedated w/ (unknown) (no (unknown) (unknown) Family History (units (unknown) date) (Reviewed 04/13/22 unknown) @ 09:52 by Mine Harrington DO) (unknown) (no (unknown) (unknown) Family history of (units (unknown) date) angioedema unknown) (unknown) (no (unknown) (unknown) Father (units (unkno wn) date) Hypertension unknown) (unknown) (no (unknown) (unknown) Fentanyl 1,000 (units (unknown) date) mcg/ Dextrose 250 unknown) mls @ 11.113 mls/hr 07/05/22 21:00 07/05/22 (unknown) (no (unknown) (unknown) Generic Name Dose (units (unknown) date) Route Start Last unknown) Admin (unknown) (no (unknown) (unknown) Globulin 3.5 (units (u nknown) date) unknown) (unknown) (no (unknown) (unknown) Globulin (units (unkno wn) date) unknown) (unknown) (no (unknown) (unknown) Glucose 296 H (units ( unknown) date) unknown) (unknown) (no (unknown) (unknown) Glucose (units (unkno wn) date) unknown) (unknown) (no (unknown) (unknown) Hct 37.3 (units (unkno wn) date) unknown) (unknown) (no (unknown) (unknown) Hct (units (unkno wn) date) unknown) (unknown) (no (unknown) (unknown) Hgb 12.3 (units (unkno wn) date) unknown) (unknown) (no (unknown) (unknown) Hgb (units (unkno wn) date) unknown) (unknown) (no (unknown) (unknown) History of Present (units (unknown) date) Illness unknown) (unknown) (no (unknown) (unknown) Home Medications (units (unknown) date) unknown) (unknown) (no (unknown) (unknown) Hx of appendectomy (units (unknown) date) unknown) (unknown) (no (unknown) (unknown) Hx of (units (unkno wn) date) cholecystectomy unknown) (unknown) (no (unknown) (unknown) I spent a total of (units (unknown) date) [] minutes of unknown) critical care time on this patient's care (unknown) (no (unknown) (unknown) IF CAMERA (units (unkn own) date) ACTIVATED, patient unknown) seen via real-time interactive audiovisual (unknown) (no (unknown) (unknown) IV 1 mcg/min (units (u nknown) date) unknown) (unknown) (no (unknown) (unknown) IV 2 mcg/kg/hr (units (unknown) date) unknown) (unknown) (no (unknown) (unknown) IV 6 mg/hr (units (unk nown) date) unknown) (unknown) (no (unknown) (unknown) IV Not Given (units (u nknown) date) unknown) (unknown) (no (unknown) (unknown) Infusion (units (unkno wn) date) unknown) (unknown) (no (unknown) (unknown) Intubated and (units (u nknown) date) sedated. On unknown) propofol 25 mcg, versed 6 mg/hr, fentanyl 100 mcg, and (unknown) (no (unknown) (unknown) [facility] (units (unknown) date) [address] [place] [address] unknown) [place] [address] (unknown) (no (unknown) (unknown) Laboratory Results (units (unknown) date) - last 24 hr unknown) (unknown) (no (unknown) (unknown) Labs (units (unkno wn) date) unknown) (unknown) (no (unknown) (unknown) Labs: (units (unkno wn) date) unknown) (unknown) (no (unknown) (unknown) Lymph # (Auto) 400 (units (unknown) date) L unknown) (unknown) (no (unknown) (unknown) Lymph # (Auto) (units (unknown) date) unknown) (unknown) (no (unknown) (unknown) Lymph % (Auto) 3.9 (units (unknown) date) L unknown) (unknown) (no (unknown) (unknown) Lymph % (Auto) (units (unknown) date) unknown) (unknown) (no (unknown) (unknown) MCH 31.3 (units (unkno wn) date) unknown) (unknown) (no (unknown) (unknown) MCH (units (unkno wn) date) unknown) (unknown) (no (unknown) (unknown) MCHC 33.0 (units (unkn own) date) unknown) (unknown) (no (unknown) (unknown) MCHC (units (unkno wn) date) unknown) (unknown) (no (unknown) (unknown) MCV 94.9 (units (unkno wn) date) unknown) (unknown) (no (unknown) (unknown) MCV (units (unkno wn) date) unknown) (unknown) (no (unknown) (unknown) 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 (unknown) (no (unknown) (unknown) Marijuana use, (units (unknown) date) continuous unknown) (unknown) (no (unknown) (unknown) Medical History (units (unknown) date) (Reviewed 04/13/22 unknown) @ 09:52 by Mine Harrington DO) (unknown) (no (unknown) (unknown) Medications: (units (u nknown) date) unknown) (unknown) (no (unknown) (unknown) Midazolam HCl 50 (units (unknown) date) mg/ Dextrose 250 unknown) mls @ 25 mls/hr 07/05/22 22:15 07/05/22 (unknown) (no (unknown) (unknown) [place] # (Auto) 100 (units (unknown) date) unknown) (unknown) (no (unknown) (unknown) [place] # (Auto) (units ( unknown) date) unknown) (unknown) (no (unknown) (unknown) [place] % (Auto) 1.1 (units (unknown) date) L unknown) (unknown) (no (unknown) (unknown) [place] % (Auto) (units ( unknown) date) unknown) (unknown) (no (unknown) (unknown) Mother Diabetes (units (unknown) date) mellitus unknown) (unknown) (no (unknown) (unknown) NEURO: (units (unkno wn) date) unknown) (unknown) (no (unknown) (unknown) Narrative (units (unkn own) date) unknown) (unknown) (no (unknown) (unknown) Narrative: (units (unk nown) date) unknown) (unknown) (no (unknown) (unknown) Neut # (Auto) (units ( unknown) date) 36667 H unknown) (unknown) (no (unknown) (unknown) Neut # (Auto) (units ( unknown) date) unknown) (unknown) (no (unknown) (unknown) Neut % (Auto) 94.4 (units (unknown) date) H unknown) (unknown) (no (unknown) (unknown) Neut % (Auto) (units ( unknown) date) unknown) (unknown) (no (unknown) (unknown) Objective (units (unkn own) date) unknown) (unknown) (no (unknown) (unknown) Other Colon cancer (units (unknown) date) unknown) (unknown) (no (unknown) (unknown) Other (units (unkno wn) date) 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/roles: unknown) RN (unknown) (no (unknown) (unknown) Oxygen Delivery (units (unknown) date) Method Room Air unknown) Room Air (unknown) (no (unknown) (unknown) Oxygen Delivery (units (unknown) date) Method Room Air unknown) (unknown) (no (unknown) (unknown) Oxygen Delivery (units (unknown) date) Method unknown) (unknown) (no (unknown) (unknown) PFSH (units (unkno wn) date) unknown) (unknown) (no (unknown) (unknown) Pancreatitis (units (u nknown) date) unknown) (unknown) (no (unknown) (unknown) Patient Location: (units (unknown) date) ICU unknown) (unknown) (no (unknown) (unknown) Patient is a 46 (units (unknown) date) year old female unknown) with history of marijuana abuse, chronic (unknown) (no (unknown) (unknown) Patient: (units (unkno wn) date) Dameon Caputo A MR#: unknown) [id number] (unknown) (no (unknown) (unknown) Plt Count 238 (units ( unknown) date) unknown) (unknown) (no (unknown) (unknown) Plt Count (units (unkn own) date) unknown) (unknown) (no (unknown) (unknown) Potassium 3.5 (units ( unknown) date) unknown) (unknown) (no (unknown) (unknown) Potassium (units (unkn own) date) unknown) (unknown) (no (unknown) (unknown) Propofol 1,000 mg (units (unknown) date) in 100 mls @ 1.905 unknown) mls/hr 07/05/22 20:30 07/05/22 23:52 (unknown) (no (unknown) (unknown) Propofol 1,000 mg (units (unknown) date) in 100 mls @ 1.905 unknown) mls/hr 07/05/22 21:00 07/05/22 21:30 (unknown) (no (unknown) (unknown) Propofol 200 Mg/20 (units (unknown) date) Ml Vial IV 80 mg unknown) (unknown) (no (unknown) (unknown) Propofol 80 mg (units (unknown) date) 07/05/22 20:48 unknown) 07/05/22 22:50 (unknown) (no (unknown) (unknown) Propofol IV 25 (units (unknown) date) mcg/kg/min unknown) (unknown) (no (unknown) (unknown) Propofol IV Not (units (unknown) date) Given unknown) (unknown) (no (unknown) (unknown) Protocol (units (unkno wn) date) unknown) (unknown) (no (unknown) (unknown) Provider location (units (unknown) date) (State): [place] unknown) (unknown) (no (unknown) (unknown) Provider: (units (unkn own) date) Paige Ramos MD unknown) (unknown) (no (unknown) (unknown) Pulse Oximetry 100 (units (unknown) date) 100 unknown) (unknown) (no (unknown) (unknown) Pulse Oximetry 100 (units (unknown) date) unknown) (unknown) (no (unknown) (unknown) Pulse Oximetry 85 (units (unknown) date) L unknown) (unknown) (no (unknown) (unknown) Pulse Oximetry 90 (units (unknown) date) L 99 unknown) (unknown) (no (unknown) (unknown) Pulse Oximetry 95 (units (unknown) date) 96 unknown) (unknown) (no (unknown) (unknown) Pulse Oximetry 95 (units (unknown) date) unknown) (unknown) (no (unknown) (unknown) Pulse Oximetry 96 (units (unknown) date) 96 unknown) (unknown) (no (unknown) (unknown) Pulse Oximetry 96 (units (unknown) date) 99 unknown) (unknown) (no (unknown) (unknown) Pulse Oximetry 96 (units (unknown) date) unknown) (unknown) (no (unknown) (unknown) Pulse Oximetry 98 (units (unknown) date) 98 unknown) (unknown) (no (unknown) (unknown) Pulse Oximetry 98 (units (unknown) date) 99 unknown) (unknown) (no (unknown) (unknown) Pulse Oximetry 98 (units (unknown) date) unknown) (unknown) (no (unknown) (unknown) Pulse Oximetry 99 (units (unknown) date) 97 unknown) (unknown) (no (unknown) (unknown) Pulse Oximetry 99 (units (unknown) date) 99 unknown) (unknown) (no (unknown) (unknown) Pulse Oximetry 99 (units (unknown) date) unknown) (unknown) (no (unknown) (unknown) Pulse Rate 104 H (units (unknown) date) unknown) (unknown) (no (unknown) (unknown) Pulse Rate 105 H (units (unknown) date) 96 H unknown) (unknown) (no (unknown) (unknown) Pulse Rate 108 H (units (unknown) date) unknown) (unknown) (no (unknown) (unknown) Pulse Rate 110 H (units (unknown) date) 127 H unknown) (unknown) (no (unknown) (unknown) Pulse Rate 115 H (units (unknown) date) unknown) (unknown) (no (unknown) (unknown) Pulse Rate 121 H (units (unknown) date) 109 H unknown) (unknown) (no (unknown) (unknown) Pulse Rate 129 H (units (unknown) date) 135 H unknown) (unknown) (no (unknown) (unknown) Pulse Rate 129 H (units (unknown) date) unknown) (unknown) (no (unknown) (unknown) Pulse Rate 134 H (units (unknown) date) unknown) (unknown) (no (unknown) (unknown) Pulse Rate 137 H (units (unknown) date) 135 H unknown) (unknown) (no (unknown) (unknown) Pulse Rate 138 H (units (unknown) date) 137 H unknown) (unknown) (no (unknown) (unknown) Pulse Rate 139 H (units (unknown) date) unknown) (unknown) (no (unknown) (unknown) Pulse Rate 87 96 H (units (unknown) date) unknown) (unknown) (no (unknown) (unknown) Pulse Rate 91 H 81 (units (unknown) date) unknown) (unknown) (no (unknown) (unknown) Pulse Rate 91 H (units (unknown) date) unknown) (unknown) (no (unknown) (unknown) Pulse Rate 93 H 92 (units (unknown) date) H unknown) (unknown) (no (unknown) (unknown) Pulse Rate 94 H 94 (units (unknown) date) H unknown) (unknown) (no (unknown) (unknown) Pulse Rate 95 H 94 (units (unknown) date) H unknown) (unknown) (no (unknown) (unknown) Pulse Rate 95 H (units (unknown) date) unknown) (unknown) (no (unknown) (unknown) Pulse Rate 96 H 75 (units (unknown) date) unknown) (unknown) (no (unknown) (unknown) Pulse Rate 98 H 97 (units (unknown) date) H unknown) (unknown) (no (unknown) (unknown) Q10MIN PRN (units (unk nown) date) Administration unknown) (unknown) (no (unknown) (unknown) RBC 3.93 L (units (unk nown) date) unknown) (unknown) (no (unknown) (unknown) RBC (units (unkno wn) date) unknown) (unknown) (no (unknown) (unknown) RDW 13.2 (units (unkno wn) date) unknown) (unknown) (no (unknown) (unknown) RDW (units (unkno wn) date) unknown) (unknown) (no (unknown) (unknown) RESP: (units (unkno wn) date) unknown) (unknown) (no (unknown) (unknown) Reason for (units (unk nown) date) consult: Angioedema unknown) (unknown) (no (unknown) (unknown) Respiratory Rate (units (unknown) date) 16 16 unknown) (unknown) (no (unknown) (unknown) Respiratory Rate (units (unknown) date) 16 unknown) (unknown) (no (unknown) (unknown) Respiratory Rate (units (unknown) date) 18 unknown) (unknown) (no (unknown) (unknown) Respiratory Rate (units (unknown) date) 19 24 unknown) (unknown) (no (unknown) (unknown) Respiratory Rate (units (unknown) date) 22 unknown) (unknown) (no (unknown) (unknown) Respiratory Rate (units (unknown) date) 24 34 H unknown) (unknown) (no (unknown) (unknown) Respiratory Rate (units (unknown) date) 24 unknown) (unknown) (no (unknown) (unknown) Respiratory Rate (units (unknown) date) 25 H 25 H unknown) (unknown) (no (unknown) (unknown) Respiratory Rate (units (unknown) date) 26 H 25 H unknown) (unknown) (no (unknown) (unknown) Respiratory Rate (units (unknown) date) 26 H 37 H unknown) (unknown) (no (unknown) (unknown) Respiratory Rate (units (unknown) date) 26 H unknown) (unknown) (no (unknown) (unknown) Respiratory Rate (units (unknown) date) 27 H 16 unknown) (unknown) (no (unknown) (unknown) Respiratory Rate (units (unknown) date) 32 H unknown) (unknown) (no (unknown) (unknown) Respiratory Rate (units (unknown) date) 33 H 25 H unknown) (unknown) (no (unknown) (unknown) Respiratory Rate (units (unknown) date) 35 H 31 H unknown) (unknown) (no (unknown) (unknown) Respiratory Rate (units (unknown) date) 38 H unknown) (unknown) (no (unknown) (unknown) Respiratory Rate (units (unknown) date) 42 H 42 H unknown) (unknown) (no (unknown) (unknown) Respiratory Rate (units (unknown) date) 52 H 39 H unknown) (unknown) (no (unknown) (unknown) Respiratory Rate (units (unknown) date) unknown) (unknown) (no (unknown) (unknown) Result Diagrams: (units (unknown) date) unknown) (unknown) (no (unknown) (unknown) Sedation (units (unkno wn) date) unknown) (unknown) (no (unknown) (unknown) Signed By: (units (unk nown) date) unknown) (unknown) (no (unknown) (unknown) Smoking Status: (units (unknown) date) Current every day unknown) smoker (unknown) (no (unknown) (unknown) Social History (units (unknown) date) (Reviewed 04/13/22 unknown) @ 09:52 by Mine Harrington DO) (unknown) (no (unknown) (unknown) Sodium 143 (units (unk nown) date) unknown) (unknown) (no (unknown) (unknown) Sodium (units (unkno wn) date) unknown) (unknown) (no (unknown) (unknown) Surgical History (units (unknown) date) (Reviewed 04/13/22 unknown) @ 09:52 by Mine Harrington DO) (unknown) (no (unknown) (unknown) TITRATE KIRIT 3.75 (units (unknown) date) mls/hr unknown) (unknown) (no (unknown) (unknown) TITRATE KIRIT 30 (units (unknown) date) mls/hr unknown) (unknown) (no (unknown) (unknown) TITRATE KIRIT 31.752 (units (unknown) date) mls/hr unknown) (unknown) (no (unknown) (unknown) TITRATE KIRIT 9.525 (units (unknown) date) mls/hr unknown) (unknown) (no (unknown) (unknown) TITRATE KIRIT (units (un known) date) unknown) (unknown) (no (unknown) (unknown) Teleintensivist (units (unknown) date) Consult Note unknown) (unknown) (no (unknown) (unknown) Time Spent With (units (unknown) date) Patient unknown) (unknown) (no (unknown) (unknown) Titration (units (unkn own) date) unknown) (unknown) (no (unknown) (unknown) Total Bilirubin (units (unknown) date) 0.5 unknown) (unknown) (no (unknown) (unknown) Total Bilirubin (units (unknown) date) unknown) (unknown) (no (unknown) (unknown) Total Protein 7.7 (units (unknown) date) unknown) (unknown) (no (unknown) (unknown) Total Protein (units ( unknown) date) unknown) (unknown) (no (unknown) (unknown) Trade Name Freq (units (unknown) date) PRN Reason Stop unknown) Dose Admin (unknown) (no (unknown) (unknown) U Benzodiazepines (units [...] Screen unknown) (unknown) (no (unknown) (unknown) Ur Culture (units (unk nown) date) Indicated? Cult not unknown) indicated (unknown) (no (unknown) (unknown) Ur Culture (units (unk nown) date) Indicated? unknown) (unknown) (no (unknown) (unknown) Ur Leukocyte (units (u nknown) date) Esterase Negative unknown) (unknown) (no (unknown) (unknown) Ur Leukocyte (units (u nknown) date) Esterase unknown) (unknown) (no (unknown) (unknown) Ur MDMA [...] Scrn unknown) (unknown) (no (unknown) (unknown) Ur Specific (units (un known) date) [place] 1.010 unknown) (unknown) (no (unknown) (unknown) Ur Specific (units (un known) date) [place] unknown) (unknown) (no (unknown) (unknown) Ur Squamous Epith (units (unknown) date) Cells 0-1 /hpf unknown) (unknown) (no (unknown) (unknown) Ur Squamous Epith (units (unknown) date) Cells unknown) (unknown) (no (unknown) (unknown) Ur Transition (units ( unknown) date) Epith Cell 0-1/hpf unknown) (unknown) (no (unknown) (unknown) Ur Transition (units ( unknown) date) Epith Cell unknown) (unknown) (no (unknown) (unknown) Urine Appearance (units (unknown) date) Clear unknown) (unknown) (no (unknown) (unknown) Urine Appearance (units (unknown) date) unknown) (unknown) (no (unknown) (unknown) Urine Bacteria (units (unknown) date) None seen unknown) (unknown) (no (unknown) (unknown) Urine Bacteria (units (unknown) date) unknown) (unknown) (no (unknown) (unknown) Urine Bilirubin (units (unknown) date) Negative unknown) (unknown) (no (unknown) (unknown) Urine Bilirubin (units (unknown) date) unknown) (unknown) (no (unknown) (unknown) Urine Cocaine (units ( unknown) date) Screen Negative unknown) (unknown) (no (unknown) (unknown) Urine Cocaine (units ( unknown) date) Screen unknown) (unknown) (no (unknown) (unknown) Urine Color Yellow (units (unknown) date) unknown) (unknown) (no (unknown) (unknown) Urine Color (units (un known) date) unknown) (unknown) (no (unknown) (unknown) Urine Glucose (UA) (units (unknown) date) 1+ H unknown) (unknown) (no (unknown) (unknown) Urine Glucose (UA) (units (unknown) date) unknown) (unknown) (no (unknown) (unknown) Urine Ketones (units ( unknown) date) Negative unknown) (unknown) (no (unknown) (unknown) Urine Ketones (units ( unknown) date) unknown) (unknown) (no (unknown) (unknown) Urine Methadone (units (unknown) date) Screen Negative unknown) (unknown) (no (unknown) (unknown) Urine Methadone (units (unknown) date) Screen unknown) (unknown) (no (unknown) (unknown) Urine Nitrate (units ( unknown) date) Negative unknown) (unknown) (no (unknown) (unknown) Urine Nitrate (units ( unknown) date) unknown) (unknown) (no (unknown) (unknown) Urine Occult Blood (units (unknown) date) Trace-lysed unknown) (unknown) (no (unknown) (unknown) Urine Occult Blood (units (unknown) date) unknown) (unknown) (no (unknown) (unknown) Urine Protein 1+ H (units (unknown) date) unknown) (unknown) [...] unknown) (unknown) (no (unknown) (unknown) Urine WBC None (units (unknown) date) seen unknown) (unknown) (no (unknown) (unknown) Urine WBC (units (unkn own) date) unknown) (unknown) (no (unknown) (unknown) Urine pH 7.0 (units (u nknown) date) unknown) (unknown) (no (unknown) (unknown) Urine pH (units (unkno wn) date) unknown) (unknown) (no (unknown) (unknown) Visit Medications (units (unknown) date) (administered) unknown) (unknown) (no (unknown) (unknown) Vital Signs (units (un known) date) unknown) (unknown) (no (unknown) (unknown) WBC 11.1 H (units (unk nown) date) unknown) (unknown) (no (unknown) (unknown) WBC (units (unkno wn) date) unknown) (unknown) (no (unknown) (unknown) [Embedded Image (units (unknown) date) Not Available] unknown) (unknown) (no (unknown) (unknown) abdominal pain, (units (unknown) date) pancreatitis, and unknown) 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 By (units (unknown) date) report patient has unknown) a history of angioedema of unknown etiology (unknown) (no (unknown) (unknown) bupropion HCl 100 (units (unknown) date) mg tablet,12 hr unknown) sustained-release 100 mg PO DAILY #90 ea (unknown) (no (unknown) (unknown) communication: (units (unknown) date) Camera activated unknown) (unknown) (no (unknown) (unknown) epinephrine 1 mcg. (units (unknown) date) unknown) (unknown) (no (unknown) (unknown) household members: (units (unknown) date) spouse unknown) (unknown) (no (unknown) (unknown) potassium chloride (units (unknown) date) 20 mEq unknown) tablet,extended release 40 meq PO DAILY #90 tabs (unknown) (no (unknown) (unknown) propofol was (units (u nknown) date) decreased to 25 unknown) mcg. Cleaning Team Member consulted for further management. (unknown) (no (unknown) (unknown) propofol/fentanyl. (units (unknown) date) She developed unknown) hypotension which versed gtt was added and (unknown) (no (unknown) (unknown) spironolactone 25 (units (unknown) date) mg tablet 25 mg PO unknown) DAILY #90 tabs 04/14/22 [Rx] (unknown) (no (unknown) (unknown) today; this time (units (unknown) date) is exclusive of unknown) procedural time. (unknown) (no (unknown) (unknown) which she presented (units (unknown) date) to the ER with unknown) tongue swelling. No reported food allergy. In Result panel 660 (unknown) (no (unknown) (unknown) (no value) (units (unk nown) date) unknown) (unknown) (no (unknown) (unknown) # Acute (units (unkno wn) date) encephalopathy unknown) (unknown) (no (unknown) (unknown) # Acute (units (unkno wn) date) respiratory unknown) insufficiency (unknown) (no (unknown) (unknown) # Angioedema (units (u nknown) date) unknown) (unknown) (no (unknown) (unknown) # Hyperglycemia (units (unknown) date) unknown) (unknown) (no (unknown) (unknown) # Shock (units (unkno wn) date) unknown) (unknown) (no (unknown) (unknown) (past 8 hours): (units (unknown) date) unknown) (unknown) (no (unknown) (unknown) -- Aspiration (units ( unknown) date) precaution unknown) (unknown) (no (unknown) (unknown) -- Check HbA1c (units (unknown) date) unknown) (unknown) (no (unknown) (unknown) -- DAily SAT (units (u nknown) date) unknown) (unknown) (no (unknown) (unknown) -- Daily CAM ICU (units (unknown) date) unknown) (unknown) (no (unknown) (unknown) -- Daily cuff leak (units (unknown) date) assessment unknown) (unknown) (no (unknown) (unknown) -- Daily tongue (units (unknown) date) assessment unknown) (unknown) (no (unknown) (unknown) -- Goal BS < 180 (units (unknown) date) unknown) (unknown) (no (unknown) (unknown) -- HOB elevation (units (unknown) date) unknown) (unknown) (no (unknown) (unknown) -- Intubated for (units (unknown) date) angioedema unknown) (unknown) (no (unknown) (unknown) -- MAP goal > 65 (units (unknown) date) unknown) (unknown) (no (unknown) (unknown) -- On epinephrine (units (unknown) date) gtt unknown) (unknown) (no (unknown) (unknown) -- Per report C1 (units (unknown) date) esterase level was unknown) normal (unknown) (no (unknown) (unknown) -- Recommend (units (u nknown) date) decadron 4 mg IV unknown) q6hr, benadryl 25 mg TID, and pepcid (unknown) (no (unknown) (unknown) -- Secondary to (units (unknown) date) sedatives unknown) (unknown) (no (unknown) (unknown) -- Sedated w/ (units ( unknown) date) propofol, versed, unknown) and fentanyl (unknown) (no (unknown) (unknown) -- Sedation as (units (unknown) date) above unknown) (unknown) (no (unknown) (unknown) -- Titrate (units (unk nown) date) sedation to unknown) maintain RASS goal -1 to 0 (unknown) (no (unknown) (unknown) -- Unclear (units (unk nown) date) etiology unknown) (unknown) (no (unknown) (unknown) -- Utox positive (units (unknown) date) for THC unknown) (unknown) (no (unknown) (unknown) 0.7 MCG/KG/HR (units ( unknown) date) unknown) (unknown) (no (unknown) (unknown) 00:07 (units (unkno wn) date) unknown) (unknown) (no (unknown) (unknown) 04/14/22 [Rx] (units ( unknown) date) unknown) (unknown) (no (unknown) (unknown) 1 MCG/MIN (units (unkn own) date) unknown) (unknown) (no (unknown) (unknown) 07/05/22 07/05/22 (units (unknown) date) 07/05/22 unknown) (unknown) (no (unknown) (unknown) 07/05/22 07/05/22 (units (unknown) date) unknown) (unknown) (no (unknown) (unknown) 07/05/22 22:56 (units (unknown) date) unknown) (unknown) (no (unknown) (unknown) 07/05/22 (units (unkno wn) date) unknown) (unknown) (no (unknown) (unknown) 07/06/22 0049 (units ( unknown) date) unknown) (unknown) (no (unknown) (unknown) 18:19 07/05/22 (units (unknown) date) unknown) (unknown) (no (unknown) (unknown) 18:30 07/05/22 (units (unknown) date) unknown) (unknown) (no (unknown) (unknown) 19:40 (units (unkno wn) date) unknown) (unknown) (no (unknown) (unknown) 19:50 07/05/22 (units (unknown) date) unknown) (unknown) (no (unknown) (unknown) 20:00 07/05/22 (units (unknown) date) unknown) (unknown) (no (unknown) (unknown) 20:00 (units (unkno wn) date) unknown) (unknown) (no (unknown) (unknown) 20:10 07/05/22 (units (unknown) date) unknown) (unknown) (no (unknown) (unknown) 20:10 (units (unkno wn) date) unknown) (unknown) (no (unknown) (unknown) 20:17 07/05/22 (units (unknown) date) unknown) (unknown) (no (unknown) (unknown) 20:21 07/05/22 (units (unknown) date) unknown) (unknown) (no (unknown) (unknown) 20:21 (units (unkno wn) date) unknown) (unknown) (no (unknown) (unknown) 20:26 20:26 22:56 (units (unknown) date) unknown) (unknown) (no (unknown) (unknown) 20:30 07/05/22 (units (unknown) date) unknown) (unknown) (no (unknown) (unknown) 20:31 07/05/22 (units (unknown) date) unknown) (unknown) (no (unknown) (unknown) 20:31 (units (unkno wn) date) unknown) (unknown) (no (unknown) (unknown) 20:36 07/05/22 (units (unknown) date) unknown) (unknown) (no (unknown) (unknown) 20:36 (units (unkno wn) date) unknown) (unknown) (no (unknown) (unknown) 20:40 07/05/22 (units (unknown) date) unknown) (unknown) (no (unknown) (unknown) 20:50 07/05/22 (units (unknown) date) unknown) (unknown) (no (unknown) (unknown) 20:50 (units (unkno wn) date) unknown) (unknown) (no (unknown) (unknown) 21:00 07/05/22 (units (unknown) date) unknown) (unknown) (no (unknown) (unknown) 21:00 (units (unkno wn) date) unknown) (unknown) (no (unknown) (unknown) 21:10 07/05/22 (units (unknown) date) unknown) (unknown) (no (unknown) (unknown) 21:20 07/05/22 (units (unknown) date) unknown) (unknown) (no (unknown) (unknown) 21:20 (units (unkno wn) date) unknown) (unknown) (no (unknown) (unknown) 21:30 07/05/22 (units (unknown) date) unknown) (unknown) (no (unknown) (unknown) 21:30 (units (unkno wn) date) unknown) (unknown) (no (unknown) (unknown) 21:38 (units (unkno wn) date) unknown) (unknown) (no (unknown) (unknown) 21:40 07/05/22 (units (unknown) date) unknown) (unknown) (no (unknown) (unknown) 21:50 07/05/22 (units (unknown) date) unknown) (unknown) (no (unknown) (unknown) 21:50 (units (unkno wn) date) unknown) (unknown) (no (unknown) (unknown) 21:57 (units (unkno wn) date) unknown) (unknown) (no (unknown) (unknown) 22:00 07/05/22 (units (unknown) date) unknown) (unknown) (no (unknown) (unknown) 22:00 (units (unkno wn) date) unknown) (unknown) (no (unknown) (unknown) 22:10 07/05/22 (units (unknown) date) unknown) (unknown) (no (unknown) (unknown) 22:15 07/05/22 (units (unknown) date) unknown) (unknown) (no (unknown) (unknown) 22:15 (units (unkno wn) date) unknown) (unknown) (no (unknown) (unknown) 22:20 07/05/22 (units (unknown) date) unknown) (unknown) (no (unknown) (unknown) 22:20 (units (unkno wn) date) unknown) (unknown) (no (unknown) (unknown) 22:30 07/05/22 (units (unknown) date) unknown) (unknown) (no (unknown) (unknown) 22:40 07/05/22 (units (unknown) date) unknown) (unknown) (no (unknown) (unknown) 22:40 (units (unkno wn) date) unknown) (unknown) (no (unknown) (unknown) 22:51 07/05/22 (units (unknown) date) unknown) (unknown) (no (unknown) (unknown) 22:51 (units (unkno wn) date) unknown) (unknown) (no (unknown) (unknown) 22:52 07/05/22 (units (unknown) date) unknown) (unknown) (no (unknown) (unknown) 22:56 22:56 (units (un known) date) unknown) (unknown) (no (unknown) (unknown) 22:59 (units (unkno wn) date) unknown) (unknown) (no (unknown) (unknown) 23:00 07/05/22 (units (unknown) date) unknown) (unknown) (no (unknown) (unknown) 23:10 07/05/22 (units (unknown) date) unknown) (unknown) (no (unknown) (unknown) 23:10 (units (unkno wn) date) unknown) (unknown) (no (unknown) (unknown) 23:20 07/05/22 (units (unknown) date) unknown) (unknown) (no (unknown) (unknown) 23:20 (units (unkno wn) date) unknown) (unknown) (no (unknown) (unknown) 23:30 07/05/22 (units (unknown) date) unknown) (unknown) (no (unknown) (unknown) 23:40 07/05/22 (units (unknown) date) unknown) (unknown) (no (unknown) (unknown) 23:40 (units (unkno wn) date) unknown) (unknown) (no (unknown) (unknown) 23:48 07/05/22 (units (unknown) date) unknown) (unknown) (no (unknown) (unknown) 23:48 (units (unkno wn) date) unknown) (unknown) (no (unknown) (unknown) 23:50 07/05/22 (units (unknown) date) unknown) (unknown) (no (unknown) (unknown) 23:50 07/06/22 (units (unknown) date) unknown) (unknown) (no (unknown) (unknown) 23:53 (units (unkno wn) date) unknown) (unknown) (no (unknown) (unknown) [id number] (units (unkno wn) date) unknown) (unknown) (no (unknown) (unknown) 5 MCG/KG/MIN (units (u nknown) date) unknown) (unknown) (no (unknown) (unknown) 5 MG/HR (units (unkno wn) date) unknown) (unknown) (no (unknown) (unknown) ALT 32 (units (unkno wn) date) unknown) (unknown) (no (unknown) (unknown) ALT (units (unkno wn) date) unknown) (unknown) (no (unknown) (unknown) AST 65 H (units (unkno wn) date) unknown) (unknown) (no (unknown) (unknown) AST (units (unkno wn) date) unknown) (unknown) (no (unknown) (unknown) Abscess (units (unkno wn) date) unknown) (unknown) (no (unknown) (unknown) Administration (units (unknown) date) unknown) (unknown) (no (unknown) (unknown) Age/Sex: 46 / F (units (unknown) date) unknown) (unknown) (no (unknown) (unknown) Albumin 4.2 (units (un known) date) unknown) (unknown) (no (unknown) (unknown) Albumin (units (unkno wn) date) unknown) (unknown) (no (unknown) (unknown) Albumin/Globulin (units (unknown) date) Ratio 1.2 unknown) (unknown) (no (unknown) (unknown) Albumin/Globulin (units (unknown) date) Ratio unknown) (unknown) (no (unknown) (unknown) Alkaline (units (unkno wn) date) Phosphatase 78 unknown) (unknown) (no (unknown) (unknown) Alkaline (units (unkno wn) date) Phosphatase unknown) (unknown) (no (unknown) (unknown) Assessment + Plan (units (unknown) date) narrative: unknown) (unknown) (no (unknown) (unknown) Assessment + Plan (units (unknown) date) unknown) (unknown) (no (unknown) (unknown) BUN 7 (units (unkno wn) date) unknown) (unknown) (no (unknown) (unknown) BUN (units (unkno wn) date) unknown) (unknown) (no (unknown) (unknown) BUN/Creatinine (units (unknown) date) Ratio 9.7 unknown) (unknown) (no (unknown) (unknown) BUN/Creatinine (units (unknown) date) Ratio unknown) (unknown) (no (unknown) (unknown) Baso # (Auto) 100 (units (unknown) date) unknown) (unknown) (no (unknown) (unknown) Baso # (Auto) (units ( unknown) date) unknown) (unknown) (no (unknown) (unknown) Baso % (Auto) 0.5 (units (unknown) date) unknown) (unknown) (no (unknown) (unknown) Baso % (Auto) (units ( unknown) date) unknown) (unknown) (no (unknown) (unknown) Blood Pressure (units (unknown) date) 104/75 106/76 unknown) (unknown) (no (unknown) (unknown) Blood Pressure (units (unknown) date) 105/73 unknown) (unknown) (no (unknown) (unknown) Blood Pressure (units (unknown) date) 106/73 77/50 L unknown) (unknown) (no (unknown) (unknown) Blood Pressure (units (unknown) date) 107/72 unknown) (unknown) (no (unknown) (unknown) Blood Pressure (units (unknown) date) 128/71 unknown) (unknown) (no (unknown) (unknown) Blood Pressure (units (unknown) date) 171/129 H 158/107 H unknown) (unknown) (no (unknown) (unknown) Blood Pressure (units (unknown) date) 172/104 H unknown) (unknown) (no (unknown) (unknown) Blood Pressure (units (unknown) date) 174/105 H unknown) (unknown) (no (unknown) (unknown) Blood Pressure (units (unknown) date) 178/121 H unknown) (unknown) (no (unknown) (unknown) Blood Pressure (units (unknown) date) 179/126 H unknown) (unknown) (no (unknown) (unknown) Blood Pressure (units (unknown) date) 186/107 H 178/108 H unknown) (unknown) (no (unknown) (unknown) Blood Pressure (units (unknown) date) 186/123 H unknown) (unknown) (no (unknown) (unknown) Blood Pressure (units (unknown) date) 187/129 H 175/118 H unknown) (unknown) (no (unknown) (unknown) Blood Pressure (units (unknown) date) 188/134 H unknown) (unknown) (no (unknown) (unknown) Blood Pressure (units (unknown) date) 201/136 H 174/111 H unknown) (unknown) (no (unknown) (unknown) Blood Pressure (units (unknown) date) 213/111 H 172/103 H unknown) (unknown) (no (unknown) (unknown) Blood Pressure (units (unknown) date) 217/106 H 244/157 H unknown) (unknown) (no (unknown) (unknown) Blood Pressure (units (unknown) date) 87/61 L 103/66 unknown) (unknown) (no (unknown) (unknown) Blood Pressure (units (unknown) date) 89/59 L 91/60 unknown) (unknown) (no (unknown) (unknown) Blood Pressure (units (unknown) date) 91/63 unknown) (unknown) (no (unknown) (unknown) Blood Pressure (units (unknown) date) 93/65 unknown) (unknown) (no (unknown) (unknown) Blood Pressure (units (unknown) date) 96/61 96/64 unknown) (unknown) (no (unknown) (unknown) Blood Type O (units (u nknown) date) Positive unknown) (unknown) (no (unknown) (unknown) Blood Type (units (unk nown) date) unknown) (unknown) (no (unknown) (unknown) CVS: (units (unkno wn) date) unknown) (unknown) (no (unknown) (unknown) Calcium 8.0 L (units ( unknown) date) unknown) (unknown) (no (unknown) (unknown) Calcium (units (unkno wn) date) unknown) (unknown) (no (unknown) (unknown) Carbon Dioxide 24 (units (unknown) date) unknown) (unknown) (no (unknown) (unknown) Carbon Dioxide (units (unknown) date) unknown) (unknown) (no (unknown) (unknown) Chief complaint: (units (unknown) date) Keeps biting unknown) tongue, Jaw clenched (unknown) (no (unknown) (unknown) Chloride 106 (units (u nknown) date) unknown) (unknown) (no (unknown) (unknown) Chloride (units (unkno wn) date) unknown) (unknown) (no (unknown) (unknown) Chronic abdominal (units (unknown) date) pain unknown) (unknown) (no (unknown) (unknown) Consent obtained (units (unknown) date) for unknown) tele-therapy assistant care: Yes (unknown) (no (unknown) (unknown) Consult details (units (unknown) date) unknown) (unknown) (no (unknown) (unknown) Creatinine 0.72 (units (unknown) date) unknown) (unknown) (no (unknown) (unknown) Creatinine (units (unk nown) date) unknown) (unknown) (no (unknown) (unknown) Critical Care (units ( unknown) date) time: unknown) (unknown) (no (unknown) (unknown) Current (units (unkno wn) date) Medications unknown) (unknown) (no (unknown) (unknown) Cyclic vomiting (units (unknown) date) syndrome unknown) (unknown) (no (unknown) (unknown) D/w Dr. Alonso (units (unknown) date) and RN unknown) (unknown) (no (unknown) (unknown) : 1975 (units (unknown) date) Acct:[id number] unknown) (unknown) (no (unknown) (unknown) Date Patient Seen: (units (unknown) date) 07/06/22 unknown) (unknown) (no (unknown) (unknown) Date of Service: (units (unknown) date) 07/05/22 unknown) (unknown) (no (unknown) (unknown) Daughter (units (unkno wn) date) Angio-edema unknown) (unknown) (no (unknown) (unknown) ENDO: (units (unkno wn) date) unknown) (unknown) (no (unknown) (unknown) ER, she developed (units (unknown) date) respiratory unknown) distress which she emergently intubated. Received (unknown) (no (unknown) (unknown) Eos # (Auto) 0 (units (unknown) date) unknown) (unknown) (no (unknown) (unknown) Eos # (Auto) (units (u nknown) date) unknown) (unknown) (no (unknown) (unknown) Eos % (Auto) 0.1 L (units (unknown) date) unknown) (unknown) (no (unknown) (unknown) Eos % (Auto) (units (u nknown) date) unknown) (unknown) (no (unknown) (unknown) Epinephrine HCl 4 (units (unknown) date) mg/ Dextrose 250 unknown) mls @ 3.75 mls/hr 07/05/22 20:45 07/05/22 (unknown) (no (unknown) (unknown) Epinephrine HCl 4 (units (unknown) date) mg/ Dextrose 250 unknown) mls @ 3.75 mls/hr 07/05/22 21:00 07/05/22 (unknown) (no (unknown) (unknown) Estimated GFR > 60 (units (unknown) date) unknown) (unknown) (no (unknown) (unknown) Estimated GFR (units ( unknown) date) unknown) (unknown) (no (unknown) (unknown) Exam Narrative: (units (unknown) date) unknown) (unknown) (no (unknown) (unknown) Exam (units (unkno wn) date) unknown) (unknown) (no (unknown) (unknown) FFP, TXA, and (units ( unknown) date) solumedrol. Started unknown) on epinephrine gtt and sedated w/ (unknown) (no (unknown) (unknown) Family History (units (unknown) date) (Reviewed 04/13/22 unknown) @ 09:52 by Mine Harrington DO) (unknown) (no (unknown) (unknown) Family history of (units (unknown) date) angioedema unknown) (unknown) (no (unknown) (unknown) Father (units (unkno wn) date) Hypertension unknown) (unknown) (no (unknown) (unknown) Fentanyl 1,000 (units (unknown) date) mcg/ Dextrose 250 unknown) mls @ 11.113 mls/hr 07/05/22 21:00 07/05/22 (unknown) (no (unknown) (unknown) Generic Name Dose (units (unknown) date) Route Start Last unknown) Admin (unknown) (no (unknown) (unknown) Globulin 3.5 (units (u nknown) date) unknown) (unknown) (no (unknown) (unknown) Globulin (units (unkno wn) date) unknown) (unknown) (no (unknown) (unknown) Glucose 296 H (units ( unknown) date) unknown) (unknown) (no (unknown) (unknown) Glucose (units (unkno wn) date) unknown) (unknown) (no (unknown) (unknown) Hct 37.3 (units (unkno wn) date) unknown) (unknown) (no (unknown) (unknown) Hct (units (unkno wn) date) unknown) (unknown) (no (unknown) (unknown) Hgb 12.3 (units (unkno wn) date) unknown) (unknown) (no (unknown) (unknown) Hgb (units (unkno wn) date) unknown) (unknown) (no (unknown) (unknown) History of Present (units (unknown) date) Illness unknown) (unknown) (no (unknown) (unknown) Home Medications (units (unknown) date) unknown) (unknown) (no (unknown) (unknown) Hx of appendectomy (units (unknown) date) unknown) (unknown) (no (unknown) (unknown) Hx of (units (unkno wn) date) cholecystectomy unknown) (unknown) (no (unknown) (unknown) I spent a total of (units (unknown) date) 43 minutes of unknown) critical care time on this patient's care (unknown) (no (unknown) (unknown) IF CAMERA (units (unkn own) date) ACTIVATED, patient unknown) seen via real-time interactive audiovisual (unknown) (no (unknown) (unknown) IV 1 mcg/min (units (u nknown) date) unknown) (unknown) (no (unknown) (unknown) IV 2 mcg/kg/hr (units (unknown) date) unknown) (unknown) (no (unknown) (unknown) IV 6 mg/hr (units (unk nown) date) unknown) (unknown) (no (unknown) (unknown) IV Not Given (units (u nknown) date) unknown) (unknown) (no (unknown) (unknown) Infusion (units (unkno wn) date) unknown) (unknown) (no (unknown) (unknown) Intubated and (units (u nknown) date) sedated. On unknown) propofol 25 mcg, versed 6 mg/hr, fentanyl 100 mcg, and (unknown) (no (unknown) (unknown) [facility] (units (unknown) date) [address] unknown) [place] [address] (unknown) (no (unknown) (unknown) Laboratory Results (units (unknown) date) - last 24 hr unknown) (unknown) (no (unknown) (unknown) Labs (units (unkno wn) date) unknown) (unknown) (no (unknown) (unknown) Labs: (units (unkno wn) date) unknown) (unknown) (no (unknown) (unknown) Lymph # (Auto) 400 (units (unknown) date) L unknown) (unknown) (no (unknown) (unknown) Lymph # (Auto) (units (unknown) date) unknown) (unknown) (no (unknown) (unknown) Lymph % (Auto) 3.9 (units (unknown) date) L unknown) (unknown) (no (unknown) (unknown) Lymph % (Auto) (units (unknown) date) unknown) (unknown) (no (unknown) (unknown) MCH 31.3 (units (unkno wn) date) unknown) (unknown) (no (unknown) (unknown) MCH (units (unkno wn) date) unknown) (unknown) (no (unknown) (unknown) MCHC 33.0 (units (unkn own) date) unknown) (unknown) (no (unknown) (unknown) MCHC (units (unkno wn) date) unknown) (unknown) (no (unknown) (unknown) MCV 94.9 (units (unkno wn) date) unknown) (unknown) (no (unknown) (unknown) MCV (units (unkno wn) date) unknown) (unknown) (no (unknown) (unknown) 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 (unknown) (no (unknown) (unknown) Marijuana use, (units (unknown) date) continuous unknown) (unknown) (no (unknown) (unknown) Medical History (units (unknown) date) (Reviewed 04/13/22 unknown) @ 09:52 by Mine Harrington DO) (unknown) (no (unknown) (unknown) Medications: (units (u nknown) date) unknown) (unknown) (no (unknown) (unknown) Midazolam HCl 50 (units (unknown) date) mg/ Dextrose 250 unknown) mls @ 25 mls/hr 07/05/22 22:15 07/05/22 (unknown) (no (unknown) (unknown) [place] # (Auto) 100 (units (unknown) date) unknown) (unknown) (no (unknown) (unknown) [place] # (Auto) (units ( unknown) date) unknown) (unknown) (no (unknown) (unknown) [place] % (Auto) 1.1 (units (unknown) date) L unknown) (unknown) (no (unknown) (unknown) [place] % (Auto) (units ( unknown) date) unknown) (unknown) (no (unknown) (unknown) Mother Diabetes (units (unknown) date) mellitus unknown) (unknown) (no (unknown) (unknown) NEURO: (units (unkno wn) date) unknown) (unknown) (no (unknown) (unknown) Narrative (units (unkn own) date) unknown) (unknown) (no (unknown) (unknown) Narrative: (units (unk nown) date) unknown) (unknown) (no (unknown) (unknown) Neut # (Auto) (units ( unknown) date) [address] H unknown) (unknown) (no (unknown) (unknown) Neut # (Auto) (units ( unknown) date) unknown) (unknown) (no (unknown) (unknown) Neut % (Auto) 94.4 (units (unknown) date) H unknown) (unknown) (no (unknown) (unknown) Neut % (Auto) (units ( unknown) date) unknown) (unknown) (no (unknown) (unknown) Objective (units (unkn own) date) unknown) (unknown) (no (unknown) (unknown) Other Colon cancer (units (unknown) date) unknown) (unknown) (no (unknown) (unknown) Other (units (unkno wn) date) 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/roles: unknown) RN (unknown) (no (unknown) (unknown) Oxygen Delivery (units (unknown) date) Method Room Air unknown) Room Air (unknown) (no (unknown) (unknown) Oxygen Delivery (units (unknown) date) Method Room Air unknown) (unknown) (no (unknown) (unknown) Oxygen Delivery (units (unknown) date) Method unknown) (unknown) (no (unknown) (unknown) PFSH (units (unkno wn) date) unknown) (unknown) (no (unknown) (unknown) Pancreatitis (units (u nknown) date) unknown) (unknown) (no (unknown) (unknown) Patient Location: (units (unknown) date) ICU unknown) (unknown) (no (unknown) (unknown) Patient is a 46 (units (unknown) date) year old female unknown) with history of marijuana abuse, chronic (unknown) (no (unknown) (unknown) Patient: (units (unkno wn) date) Dameon Caputo MR#: unknown) [id number] (unknown) (no (unknown) (unknown) Plt Count 238 (units ( unknown) date) unknown) (unknown) (no (unknown) (unknown) Plt Count (units (unkn own) date) unknown) (unknown) (no (unknown) (unknown) Potassium 3.5 (units ( unknown) date) unknown) (unknown) (no (unknown) (unknown) Potassium (units (unkn own) date) unknown) (unknown) (no (unknown) (unknown) Propofol 1,000 mg (units (unknown) date) in 100 mls @ 1.905 unknown) mls/hr 07/05/22 20:30 07/05/22 23:52 (unknown) (no (unknown) (unknown) Propofol 1,000 mg (units (unknown) date) in 100 mls @ 1.905 unknown) mls/hr 07/05/22 21:00 07/05/22 21:30 (unknown) (no (unknown) (unknown) Propofol 200 Mg/20 (units (unknown) date) Ml Vial IV 80 mg unknown) (unknown) (no (unknown) (unknown) Propofol 80 mg (units (unknown) date) 07/05/22 20:48 unknown) 07/05/22 22:50 (unknown) (no (unknown) (unknown) Propofol IV 25 (units (unknown) date) mcg/kg/min unknown) (unknown) (no (unknown) (unknown) Propofol IV Not (units (unknown) date) Given unknown) (unknown) (no (unknown) (unknown) Protocol (units (unkno wn) date) unknown) (unknown) (no (unknown) (unknown) Provider location (units (unknown) date) (State): [place] unknown) (unknown) (no (unknown) (unknown) Provider: (units (unkn own) date) Paige Ramos MD unknown) (unknown) (no (unknown) (unknown) Pulse Oximetry 100 (units (unknown) date) 100 unknown) (unknown) (no (unknown) (unknown) Pulse Oximetry 100 (units (unknown) date) unknown) (unknown) (no (unknown) (unknown) Pulse Oximetry 85 (units (unknown) date) L unknown) (unknown) (no (unknown) (unknown) Pulse Oximetry 90 (units (unknown) date) L 99 unknown) (unknown) (no (unknown) (unknown) Pulse Oximetry 95 (units (unknown) date) 96 unknown) (unknown) (no (unknown) (unknown) Pulse Oximetry 95 (units (unknown) date) unknown) (unknown) (no (unknown) (unknown) Pulse Oximetry 96 (units (unknown) date) 96 unknown) (unknown) (no (unknown) (unknown) Pulse Oximetry 96 (units (unknown) date) 99 unknown) (unknown) (no (unknown) (unknown) Pulse Oximetry 96 (units (unknown) date) unknown) (unknown) (no (unknown) (unknown) Pulse Oximetry 98 (units (unknown) date) 98 unknown) (unknown) (no (unknown) (unknown) Pulse Oximetry 98 (units (unknown) date) 99 unknown) (unknown) (no (unknown) (unknown) Pulse Oximetry 98 (units (unknown) date) unknown) (unknown) (no (unknown) (unknown) Pulse Oximetry 99 (units (unknown) date) 97 unknown) (unknown) (no (unknown) (unknown) Pulse Oximetry 99 (units (unknown) date) 99 unknown) (unknown) (no (unknown) (unknown) Pulse Oximetry 99 (units (unknown) date) unknown) (unknown) (no (unknown) (unknown) Pulse Rate 104 H (units (unknown) date) unknown) (unknown) (no (unknown) (unknown) Pulse Rate 105 H (units (unknown) date) 96 H unknown) (unknown) (no (unknown) (unknown) Pulse Rate 108 H (units (unknown) date) unknown) (unknown) (no (unknown) (unknown) Pulse Rate 110 H (units (unknown) date) 127 H unknown) (unknown) (no (unknown) (unknown) Pulse Rate 115 H (units (unknown) date) unknown) (unknown) (no (unknown) (unknown) Pulse Rate 121 H (units (unknown) date) 109 H unknown) (unknown) (no (unknown) (unknown) Pulse Rate 129 H (units (unknown) date) 135 H unknown) (unknown) (no (unknown) (unknown) Pulse Rate 129 H (units (unknown) date) unknown) (unknown) (no (unknown) (unknown) Pulse Rate 134 H (units (unknown) date) unknown) (unknown) (no (unknown) (unknown) Pulse Rate 137 H (units (unknown) date) 135 H unknown) (unknown) (no (unknown) (unknown) Pulse Rate 138 H (units (unknown) date) 137 H unknown) (unknown) (no (unknown) (unknown) Pulse Rate 139 H (units (unknown) date) unknown) (unknown) (no (unknown) (unknown) Pulse Rate 87 96 H (units (unknown) date) unknown) (unknown) (no (unknown) (unknown) Pulse Rate 91 H 81 (units (unknown) date) unknown) (unknown) (no (unknown) (unknown) Pulse Rate 91 H (units (unknown) date) unknown) (unknown) (no (unknown) (unknown) Pulse Rate 93 H 92 (units (unknown) date) H unknown) (unknown) (no (unknown) (unknown) Pulse Rate 94 H 94 (units (unknown) date) H unknown) (unknown) (no (unknown) (unknown) Pulse Rate 95 H 94 (units (unknown) date) H unknown) (unknown) (no (unknown) (unknown) Pulse Rate 95 H (units (unknown) date) unknown) (unknown) (no (unknown) (unknown) Pulse Rate 96 H 75 (units (unknown) date) unknown) (unknown) (no (unknown) (unknown) Pulse Rate 98 H 97 (units (unknown) date) H unknown) (unknown) (no (unknown) (unknown) Q10MIN PRN (units (unk nown) date) Administration unknown) (unknown) (no (unknown) (unknown) RBC 3.93 L (units (unk nown) date) unknown) (unknown) (no (unknown) (unknown) RBC (units (unkno wn) date) unknown) (unknown) (no (unknown) (unknown) RDW 13.2 (units (unkno wn) date) unknown) (unknown) (no (unknown) (unknown) RDW (units (unkno wn) date) unknown) (unknown) (no (unknown) (unknown) RESP: (units (unkno wn) date) unknown) (unknown) (no (unknown) (unknown) Reason for (units (unk nown) date) consult: Angioedema unknown) (unknown) (no (unknown) (unknown) Respiratory Rate (units (unknown) date) 16 16 unknown) (unknown) (no (unknown) (unknown) Respiratory Rate (units (unknown) date) 16 unknown) (unknown) (no (unknown) (unknown) Respiratory Rate (units (unknown) date) 18 unknown) (unknown) (no (unknown) (unknown) Respiratory Rate (units (unknown) date) 19 24 unknown) (unknown) (no (unknown) (unknown) Respiratory Rate (units (unknown) date) 22 unknown) (unknown) (no (unknown) (unknown) Respiratory Rate (units (unknown) date) 24 34 H unknown) (unknown) (no (unknown) (unknown) Respiratory Rate (units (unknown) date) 24 unknown) (unknown) (no (unknown) (unknown) Respiratory Rate (units (unknown) date) 25 H 25 H unknown) (unknown) (no (unknown) (unknown) Respiratory Rate (units (unknown) date) 26 H 25 H unknown) (unknown) (no (unknown) (unknown) Respiratory Rate (units (unknown) date) 26 H 37 H unknown) (unknown) (no (unknown) (unknown) Respiratory Rate (units (unknown) date) 26 H unknown) (unknown) (no (unknown) (unknown) Respiratory Rate (units (unknown) date) 27 H 16 unknown) (unknown) (no (unknown) (unknown) Respiratory Rate (units (unknown) date) 32 H unknown) (unknown) (no (unknown) (unknown) Respiratory Rate (units (unknown) date) 33 H 25 H unknown) (unknown) (no (unknown) (unknown) Respiratory Rate (units (unknown) date) 35 H 31 H unknown) (unknown) (no (unknown) (unknown) Respiratory Rate (units (unknown) date) 38 H unknown) (unknown) (no (unknown) (unknown) Respiratory Rate (units (unknown) date) 42 H 42 H unknown) (unknown) (no (unknown) (unknown) Respiratory Rate (units (unknown) date) 52 H 39 H unknown) (unknown) (no (unknown) (unknown) Respiratory Rate (units (unknown) date) unknown) (unknown) (no (unknown) (unknown) Result Diagrams: (units (unknown) date) unknown) (unknown) (no (unknown) (unknown) Sedation (units (unkno wn) date) unknown) (unknown) (no (unknown) (unknown) Signed (units (unkno wn) date) By:<Electronically unknown) signed by Paige Ramos MD> (unknown) (no (unknown) (unknown) Smoking Status: (units (unknown) date) Current every day unknown) smoker (unknown) (no (unknown) (unknown) Social History (units (unknown) date) (Reviewed 04/13/22 unknown) @ 09:52 by Mine Harrington DO) (unknown) (no (unknown) (unknown) Sodium 143 (units (unk nown) date) unknown) (unknown) (no (unknown) (unknown) Sodium (units (unkno wn) date) unknown) (unknown) (no (unknown) (unknown) Surgical History (units (unknown) date) (Reviewed 04/13/22 unknown) @ 09:52 by Mine Harrington DO) (unknown) (no (unknown) (unknown) TITRATE [place]IR[place] 3.75 (units (unknown) date) mls/hr unknown) (unknown) (no (unknown) (unknown) TITRATE KIRIT 30 (units (unknown) date) mls/hr unknown) (unknown) (no (unknown) (unknown) TITRATE KIRIT 31.752 (units (unknown) date) mls/hr unknown) (unknown) (no (unknown) (unknown) TITRATE KIRIT 9.525 (units (unknown) date) mls/hr unknown) (unknown) (no (unknown) (unknown) TITRATE KIRIT (units (un known) date) unknown) (unknown) (no (unknown) (unknown) Teleintensivist (units (unknown) date) Consult Note unknown) (unknown) (no (unknown) (unknown) Time Spent With (units (unknown) date) Patient unknown) (unknown) (no (unknown) (unknown) Titration (units (unkn own) date) unknown) (unknown) (no (unknown) (unknown) Total Bilirubin (units (unknown) date) 0.5 unknown) (unknown) (no (unknown) (unknown) Total Bilirubin (units (unknown) date) unknown) (unknown) (no (unknown) (unknown) Total Protein 7.7 (units (unknown) date) unknown) (unknown) (no (unknown) (unknown) Total Protein (units ( unknown) date) unknown) (unknown) (no (unknown) (unknown) Trade Name Freq (units (unknown) date) PRN Reason Stop unknown) Dose Admin (unknown) (no (unknown) (unknown) U Benzodiazepines (units [...] Screen unknown) (unknown) (no (unknown) (unknown) Ur Culture (units (unk nown) date) Indicated? Cult not unknown) indicated (unknown) (no (unknown) (unknown) Ur Culture (units (unk nown) date) Indicated? unknown) (unknown) (no (unknown) (unknown) Ur Leukocyte (units (u nknown) date) Esterase Negative unknown) (unknown) (no (unknown) (unknown) Ur Leukocyte (units (u nknown) date) Esterase unknown) (unknown) (no (unknown) (unknown) Ur MDMA [...] Scrn unknown) (unknown) (no (unknown) (unknown) Ur Specific (units (un known) date) [place] 1.010 unknown) (unknown) (no (unknown) (unknown) Ur Specific (units (un known) date) [place] unknown) (unknown) (no (unknown) (unknown) Ur Squamous Epith (units (unknown) date) Cells 0-1 /hpf unknown) (unknown) (no (unknown) (unknown) Ur Squamous Epith (units (unknown) date) Cells unknown) (unknown) (no (unknown) (unknown) Ur Transition (units ( unknown) date) Epith Cell 0-1/hpf unknown) (unknown) (no (unknown) (unknown) Ur Transition (units ( unknown) date) Epith Cell unknown) (unknown) (no (unknown) (unknown) Urine Appearance (units (unknown) date) Clear unknown) (unknown) (no (unknown) (unknown) Urine Appearance (units (unknown) date) unknown) (unknown) (no (unknown) (unknown) Urine Bacteria (units (unknown) date) None seen unknown) (unknown) (no (unknown) (unknown) Urine Bacteria (units (unknown) date) unknown) (unknown) (no (unknown) (unknown) Urine Bilirubin (units (unknown) date) Negative unknown) (unknown) (no (unknown) (unknown) Urine Bilirubin (units (unknown) date) unknown) (unknown) (no (unknown) (unknown) Urine Cocaine (units ( unknown) date) Screen Negative unknown) (unknown) (no (unknown) (unknown) Urine Cocaine (units ( unknown) date) Screen unknown) (unknown) (no (unknown) (unknown) Urine Color Yellow (units (unknown) date) unknown) (unknown) (no (unknown) (unknown) Urine Color (units (un known) date) unknown) (unknown) (no (unknown) (unknown) Urine Glucose (UA) (units (unknown) date) 1+ H unknown) (unknown) (no (unknown) (unknown) Urine Glucose (UA) (units (unknown) date) unknown) (unknown) (no (unknown) (unknown) Urine Ketones (units ( unknown) date) Negative unknown) (unknown) (no (unknown) (unknown) Urine Ketones (units ( unknown) date) unknown) (unknown) (no (unknown) (unknown) Urine Methadone (units (unknown) date) Screen Negative unknown) (unknown) (no (unknown) (unknown) Urine Methadone (units (unknown) date) Screen unknown) (unknown) (no (unknown) (unknown) Urine Nitrate (units ( unknown) date) Negative unknown) (unknown) (no (unknown) (unknown) Urine Nitrate (units ( unknown) date) unknown) (unknown) (no (unknown) (unknown) Urine Occult Blood (units (unknown) date) Trace-lysed unknown) (unknown) (no (unknown) (unknown) Urine Occult Blood (units (unknown) date) unknown) (unknown) (no (unknown) (unknown) Urine Protein 1+ H (units (unknown) date) unknown) (unknown) [...] unknown) (unknown) (no (unknown) (unknown) Urine WBC None (units (unknown) date) seen unknown) (unknown) (no (unknown) (unknown) Urine WBC (units (unkn own) date) unknown) (unknown) (no (unknown) (unknown) Urine pH 7.0 (units (u nknown) date) unknown) (unknown) (no (unknown) (unknown) Urine pH (units (unkno wn) date) unknown) (unknown) (no (unknown) (unknown) Visit Medications (units (unknown) date) (administered) unknown) (unknown) (no (unknown) (unknown) Vital Signs (units (un known) date) unknown) (unknown) (no (unknown) (unknown) WBC 11.1 H (units (unk nown) date) unknown) (unknown) (no (unknown) (unknown) WBC (units (unkno wn) date) unknown) (unknown) (no (unknown) (unknown) [Embedded Image (units (unknown) date) Not Available] unknown) (unknown) (no (unknown) (unknown) abdominal pain, (units (unknown) date) pancreatitis, and unknown) 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 By (units (unknown) date) report patient has unknown) a history of angioedema of unknown etiology (unknown) (no (unknown) (unknown) bupropion HCl 100 (units (unknown) date) mg tablet,12 hr unknown) sustained-release 100 mg PO DAILY #90 ea (unknown) (no (unknown) (unknown) communication: (units (unknown) date) Camera activated unknown) (unknown) (no (unknown) (unknown) epinephrine 1 mcg. (units (unknown) date) unknown) (unknown) (no (unknown) (unknown) household members: (units (unknown) date) spouse unknown) (unknown) (no (unknown) (unknown) potassium chloride (units (unknown) date) 20 mEq unknown) tablet,extended release 40 meq PO DAILY #90 tabs (unknown) (no (unknown) (unknown) propofol was (units (u nknown) date) decreased to 25 unknown) mcg. Cleaning Team Member consulted for further management. (unknown) (no (unknown) (unknown) propofol/fentanyl. (units (unknown) date) She developed unknown) hypotension which versed gtt was added and (unknown) (no (unknown) (unknown) spironolactone 25 (units (unknown) date) mg tablet 25 mg PO unknown) DAILY #90 tabs 04/14/22 [Rx] (unknown) (no (unknown) (unknown) today; this time (units (unknown) date) is exclusive of unknown) procedural time. (unknown) (no (unknown) (unknown) which she presented (units (unknown) date) to the ER with unknown) tongue swelling. No reported food allergy. In Result panel 661 (unknown) (no date) (unknown) (unknown) O Positive (units (un known) unknown) (unknown) (no date) (unknown) (unknown) O Positive (units (un known) unknown) Result panel 662 (unknown) (no date) (unknown) (unknown) O Positive (units (un known) unknown) (unknown) (no date) (unknown) (unknown) O Positive (units (un known) unknown) (unknown) (no date) (unknown) (unknown) TRANSFUSED (units (un known) PRODUCT: Fresh unknown) Frozen Plasma COUNT: 1 Result panel 663 (unknown) (no date) (unknown) (unknown) O Positive (units (un known) unknown) (unknown) (no date) (unknown) (unknown) O Positive (units (un known) unknown) Result panel 664 (unknown) (no date) (unknown) (unknown) TRANSFUSED (units (un known) PRODUCT: Fresh unknown) Frozen Plasma COUNT: 1 Result panel 665 (unknown) (no date) (unknown) (unknown) Detected (units (unkn own) unknown) (unknown) (no date) (unknown) (unknown) Not Detected (units ( unknown) unknown) (unknown) (no date) (unknown) (unknown) Not Detected (units ( unknown) unknown) Result panel 666 (unknown) (no (unknown) (unknown) (no value) (units (unk nown) date) unknown) (unknown) (no (unknown) (unknown) (past 8 hours): (units (unknown) date) unknown) (unknown) (no (unknown) (unknown) -check a1c (units (unk nown) date) unknown) (unknown) (no (unknown) (unknown) -continued to (units ( unknown) date) worsen respiratory unknown) status resulted in intubation and epinephrine (unknown) (no (unknown) (unknown) -hold (units (unkno wn) date) spironolacatone for unknown) now (unknown) (no (unknown) (unknown) -hold well-butrin (units (unknown) date) for now unknown) (unknown) (no (unknown) (unknown) -therapy assistant (units (u nknown) date) consulted unknown) (unknown) (no (unknown) (unknown) -no clear (units (unkn own) date) precipitating unknown) factors, no Vick-inhibitors or other causative (unknown) (no (unknown) (unknown) -on propofol, (units ( unknown) date) fentanyl, and unknown) versed and difficult to keep sedated, possibly due (unknown) (no (unknown) (unknown) -patient received (units (unknown) date) steroids, unknown) epinephrine, and anti-histamines in ED (unknown) (no (unknown) (unknown) -previous testing (units (unknown) date) showed normal C1 unknown) and C4 levels (unknown) (no (unknown) (unknown) -previously (units (unk nown) date) suspected cocaine unknown) as cause of angioedema, but this admission cocaine (unknown) (no (unknown) (unknown) 1. Angioedema with (units (unknown) date) respiratory failure unknown) (unknown) (no (unknown) (unknown) 07/05/22 07/05/22 (units (unknown) date) 07/05/22 unknown) (unknown) (no (unknown) (unknown) 07/05/22 07/05/22 (units (unknown) date) unknown) (unknown) (no (unknown) (unknown) 07/05/22 22:56 (units (unknown) date) unknown) (unknown) (no (unknown) (unknown) 07/05/22 (units (unkno wn) date) unknown) (unknown) (no (unknown) (unknown) 18:19 07/05/22 (units (unknown) date) unknown) (unknown) (no (unknown) (unknown) 18:30 07/05/22 (units (unknown) date) unknown) (unknown) (no (unknown) (unknown) 19:40 (units (unkno wn) date) unknown) (unknown) (no (unknown) (unknown) 19:50 07/05/22 (units (unknown) date) unknown) (unknown) (no (unknown) (unknown) 2. Anxiety (units (unk nown) date) unknown) (unknown) (no (unknown) (unknown) 20:00 07/05/22 (units (unknown) date) unknown) (unknown) (no (unknown) (unknown) 20:00 (units (unkno wn) date) unknown) (unknown) (no (unknown) (unknown) 20:10 07/05/22 (units (unknown) date) unknown) (unknown) (no (unknown) (unknown) 20:10 (units (unkno wn) date) unknown) (unknown) (no (unknown) (unknown) 20:17 07/05/22 (units (unknown) date) unknown) (unknown) (no (unknown) (unknown) 20:21 07/05/22 (units (unknown) date) unknown) (unknown) (no (unknown) (unknown) 20:21 (units (unkno wn) date) unknown) (unknown) (no (unknown) (unknown) 20:26 20:26 22:56 (units (unknown) date) unknown) (unknown) (no (unknown) (unknown) 20:30 07/05/22 (units (unknown) date) unknown) (unknown) (no (unknown) (unknown) 20:31 07/05/22 (units (unknown) date) unknown) (unknown) (no (unknown) (unknown) 20:31 (units (unkno wn) date) unknown) (unknown) (no (unknown) (unknown) 20:36 07/05/22 (units (unknown) date) unknown) (unknown) (no (unknown) (unknown) 20:36 (units (unkno wn) date) unknown) (unknown) (no (unknown) (unknown) 20:40 07/05/22 (units (unknown) date) unknown) (unknown) (no (unknown) (unknown) 20:50 07/05/22 (units (unknown) date) unknown) (unknown) (no (unknown) (unknown) 20:50 (units (unkno wn) date) unknown) (unknown) (no (unknown) (unknown) 21:00 07/05/22 (units (unknown) date) unknown) (unknown) (no (unknown) (unknown) 21:00 (units (unkno wn) date) unknown) (unknown) (no (unknown) (unknown) 21:10 07/05/22 (units (unknown) date) unknown) (unknown) (no (unknown) (unknown) 21:20 07/05/22 (units (unknown) date) unknown) (unknown) (no (unknown) (unknown) 21:20 (units (unkno wn) date) unknown) (unknown) (no (unknown) (unknown) 21:30 07/05/22 (units (unknown) date) unknown) (unknown) (no (unknown) (unknown) 21:30 (units (unkno wn) date) unknown) (unknown) (no (unknown) (unknown) 21:40 07/05/22 (units (unknown) date) unknown) (unknown) (no (unknown) (unknown) 21:50 07/05/22 (units (unknown) date) unknown) (unknown) (no (unknown) (unknown) 21:50 (units (unkno wn) date) unknown) (unknown) (no (unknown) (unknown) 22:00 07/05/22 (units (unknown) date) unknown) (unknown) (no (unknown) (unknown) 22:00 (units (unkno wn) date) unknown) (unknown) (no (unknown) (unknown) 22:10 07/05/22 (units (unknown) date) unknown) (unknown) (no (unknown) (unknown) 22:15 07/05/22 (units (unknown) date) unknown) (unknown) (no (unknown) (unknown) 22:15 (units (unkno wn) date) unknown) (unknown) (no (unknown) (unknown) 22:20 07/05/22 (units (unknown) date) unknown) (unknown) (no (unknown) (unknown) 22:20 (units (unkno wn) date) unknown) (unknown) (no (unknown) (unknown) 22:30 07/05/22 (units (unknown) date) unknown) (unknown) (no (unknown) (unknown) 22:40 07/05/22 (units (unknown) date) unknown) (unknown) (no (unknown) (unknown) 22:40 (units (unkno wn) date) unknown) (unknown) (no (unknown) (unknown) 22:51 07/05/22 (units (unknown) date) unknown) (unknown) (no (unknown) (unknown) 22:51 (units (unkno wn) date) unknown) (unknown) (no (unknown) (unknown) 22:52 07/05/22 (units (unknown) date) unknown) (unknown) (no (unknown) (unknown) 22:56 22:56 (units (un known) date) unknown) (unknown) (no (unknown) (unknown) 22:59 (units (unkno wn) date) unknown) (unknown) (no (unknown) (unknown) 23:00 07/05/22 (units (unknown) date) unknown) (unknown) (no (unknown) (unknown) 23:10 07/05/22 (units (unknown) date) unknown) (unknown) (no (unknown) (unknown) 23:10 (units (unkno wn) date) unknown) (unknown) (no (unknown) (unknown) 23:20 07/05/22 (units (unknown) date) unknown) (unknown) (no (unknown) (unknown) 23:20 (units (unkno wn) date) unknown) (unknown) (no (unknown) (unknown) 23:30 07/05/22 (units (unknown) date) unknown) (unknown) (no (unknown) (unknown) 23:30 (units (unkno wn) date) unknown) (unknown) (no (unknown) (unknown) [address] (units (unkno wn) date) unknown) (unknown) (no (unknown) (unknown) 3. Hypertension (units (unknown) date) unknown) (unknown) (no (unknown) (unknown) 4. Hyperglycemia (units (unknown) date) unknown) (unknown) (no (unknown) (unknown) ABD: soft, (units (unk nown) date) nontender unknown) (unknown) (no (unknown) (unknown) ABLE TO (units (unkno wn) date) unknown) (unknown) (no (unknown) (unknown) ALT 32 (units (unkno wn) date) unknown) (unknown) (no (unknown) (unknown) ALT (units (unkno wn) date) unknown) (unknown) (no (unknown) (unknown) AST 65 H (units (unkno wn) date) unknown) (unknown) (no (unknown) (unknown) AST (units (unkno wn) date) unknown) (unknown) (no (unknown) (unknown) Abscess (units (unkno wn) date) unknown) (unknown) (no (unknown) (unknown) Age/Sex: 46 / F (units (unknown) date) unknown) (unknown) (no (unknown) (unknown) Albumin 4.2 (units (un known) date) unknown) (unknown) (no (unknown) (unknown) Albumin (units (unkno wn) date) unknown) (unknown) (no (unknown) (unknown) Albumin/Globulin (units (unknown) date) Ratio 1.2 unknown) (unknown) (no (unknown) (unknown) Albumin/Globulin (units (unknown) date) Ratio unknown) (unknown) (no (unknown) (unknown) Alkaline (units (unkno wn) date) Phosphatase 78 unknown) (unknown) (no (unknown) (unknown) Alkaline (units (unkno wn) date) Phosphatase unknown) (unknown) (no (unknown) (unknown) Allergies (units (unkn own) date) unknown) (unknown) (no (unknown) (unknown) Allergy/AdvReac (units (unknown) date) Type Severity unknown) Reaction Status Date / Time (unknown) (no (unknown) (unknown) Assessment + Plan (units (unknown) date) narrative: unknown) (unknown) (no (unknown) (unknown) Assessment + Plan (units (unknown) date) unknown) (unknown) (no (unknown) (unknown) BUN 7 (units (unkno wn) date) unknown) (unknown) (no (unknown) (unknown) BUN (units (unkno wn) date) unknown) (unknown) (no (unknown) (unknown) BUN/Creatinine (units (unknown) date) Ratio 9.7 unknown) (unknown) (no (unknown) (unknown) BUN/Creatinine (units (unknown) date) Ratio unknown) (unknown) (no (unknown) (unknown) Baso # (Auto) 100 (units (unknown) date) unknown) (unknown) (no (unknown) (unknown) Baso # (Auto) (units ( unknown) date) unknown) (unknown) (no (unknown) (unknown) Baso % (Auto) 0.5 (units (unknown) date) unknown) (unknown) (no (unknown) (unknown) Baso % (Auto) (units ( unknown) date) unknown) (unknown) (no (unknown) (unknown) Been Physically (units (unknown) date) Hurt or No unknown) (unknown) (no (unknown) (unknown) Blood Pressure (units (unknown) date) 104/75 106/76 unknown) (unknown) (no (unknown) (unknown) Blood Pressure (units (unknown) date) 105/73 unknown) (unknown) (no (unknown) (unknown) Blood Pressure (units (unknown) date) 106/73 77/50 L unknown) (unknown) (no (unknown) (unknown) Blood Pressure (units (unknown) date) 107/72 unknown) (unknown) (no (unknown) (unknown) Blood Pressure (units (unknown) date) 128/71 unknown) (unknown) (no (unknown) (unknown) Blood Pressure (units (unknown) date) 171/129 H 158/107 H unknown) (unknown) (no (unknown) (unknown) Blood Pressure (units (unknown) date) 172/104 H unknown) (unknown) (no (unknown) (unknown) Blood Pressure (units (unknown) date) 174/105 H unknown) (unknown) (no (unknown) (unknown) Blood Pressure (units (unknown) date) 178/121 H unknown) (unknown) (no (unknown) (unknown) Blood Pressure (units (unknown) date) 179/126 H unknown) (unknown) (no (unknown) (unknown) Blood Pressure (units (unknown) date) 186/107 H 178/108 H unknown) (unknown) (no (unknown) (unknown) Blood Pressure (units (unknown) date) 186/123 H unknown) (unknown) (no (unknown) (unknown) Blood Pressure (units (unknown) date) 187/129 H 175/118 H unknown) (unknown) (no (unknown) (unknown) Blood Pressure (units (unknown) date) 188/134 H unknown) (unknown) (no (unknown) (unknown) Blood Pressure (units (unknown) date) 201/136 H 174/111 H unknown) (unknown) (no (unknown) (unknown) Blood Pressure (units (unknown) date) 213/111 H 172/103 H unknown) (unknown) (no (unknown) (unknown) Blood Pressure (units (unknown) date) 217/106 H 244/157 H unknown) (unknown) (no (unknown) (unknown) Blood Pressure (units (unknown) date) 91/63 unknown) (unknown) (no (unknown) (unknown) Blood Pressure (units (unknown) date) 93/65 unknown) (unknown) (no (unknown) (unknown) Blood Pressure (units (unknown) date) 96/61 96/64 unknown) (unknown) (no (unknown) (unknown) Blood Type O (units (u nknown) date) Positive unknown) (unknown) (no (unknown) (unknown) Blood Type (units (unk nown) date) unknown) (unknown) (no (unknown) (unknown) CODE: Full (units (unk nown) date) unknown) (unknown) (no (unknown) (unknown) CV: regular rate (units (unknown) date) and rhythm, no unknown) murmurs (unknown) (no (unknown) (unknown) Calcium 8.0 L (units ( unknown) date) unknown) (unknown) (no (unknown) (unknown) Calcium (units (unkno wn) date) unknown) (unknown) (no (unknown) (unknown) Carbon Dioxide 24 (units (unknown) date) unknown) (unknown) (no (unknown) (unknown) Carbon Dioxide (units (unknown) date) unknown) (unknown) (no (unknown) (unknown) Chief complaint: (units (unknown) date) Keeps biting unknown) tongue, Jaw clenched (unknown) (no (unknown) (unknown) Chloride 106 (units (u nknown) date) unknown) (unknown) (no (unknown) (unknown) Chloride (units (unkno wn) date) unknown) (unknown) (no (unknown) (unknown) Chronic abdominal (units (unknown) date) pain unknown) (unknown) (no (unknown) (unknown) Creatinine 0.72 (units (unknown) date) unknown) (unknown) (no (unknown) (unknown) Creatinine (units (unk nown) date) unknown) (unknown) (no (unknown) (unknown) Critical Care (units ( unknown) date) time: unknown) (unknown) (no (unknown) (unknown) Cyclic vomiting (units (unknown) date) syndrome unknown) (unknown) (no (unknown) (unknown) : 1975 (units (unknown) date) Acct:[id number] unknown) (unknown) (no (unknown) (unknown) Date Patient Seen: (units (unknown) date) 07/05/22 unknown) (unknown) (no (unknown) (unknown) Date of Service: (units (unknown) date) 07/05/22 unknown) (unknown) (no (unknown) (unknown) Daughter (units (unkno wn) date) Angio-edema unknown) (unknown) (no (unknown) (unknown) EXT: warm and well (units (unknown) date) perfused unknown) (unknown) (no (unknown) (unknown) Environment (units (un known) date) unknown) (unknown) (no (unknown) (unknown) Eos # (Auto) 0 (units (unknown) date) unknown) (unknown) (no (unknown) (unknown) Eos # (Auto) (units (u nknown) date) unknown) (unknown) (no (unknown) (unknown) Eos % (Auto) 0.1 L (units (unknown) date) unknown) (unknown) (no [...] (unknown) Family History (units (unknown) date) (Reviewed 07/06/22 unknown) @ 01:50 by Jean Carlos Cuevas MD) (unknown) (no (unknown) (unknown) Family history of (units (unknown) date) angioedema unknown) (unknown) (no (unknown) (unknown) Father (units (unkno wn) date) Hypertension unknown) (unknown) (no (unknown) (unknown) Feels Safe in (units ( unknown) date) Current Yes unknown) (unknown) (no (unknown) (unknown) GEN: intubated and (units (unknown) date) sedated unknown) (unknown) (no (unknown) (unknown) Globulin 3.5 (units (u nknown) date) unknown) (unknown) (no (unknown) (unknown) Globulin (units (unkno wn) date) unknown) (unknown) (no (unknown) (unknown) Glucose 296 H (units ( unknown) date) unknown) (unknown) (no (unknown) (unknown) Glucose (units (unkno wn) date) unknown) (unknown) (no (unknown) (unknown) HEENT: PERRL, (units ( unknown) date) moist mucous unknown) membranes (unknown) (no (unknown) (unknown) Hct 37.3 (units (unkno wn) date) unknown) (unknown) (no (unknown) (unknown) Hct (units (unkno wn) date) unknown) (unknown) (no (unknown) (unknown) Hgb 12.3 (units (unkno wn) date) unknown) (unknown) (no (unknown) (unknown) Hgb (units (unkno wn) date) unknown) (unknown) (no (unknown) (unknown) History + Physical (units (unknown) date) Report unknown) (unknown) (no (unknown) (unknown) History of Present (units (unknown) date) Illness unknown) (unknown) (no (unknown) (unknown) Home Medications (units (unknown) date) and Allergies unknown) (unknown) (no (unknown) (unknown) Home Medications (units (unknown) date) unknown) (unknown) (no (unknown) (unknown) Hx of appendectomy (units (unknown) date) unknown) (unknown) (no (unknown) (unknown) Hx of (units (unkno wn) date) cholecystectomy unknown) (unknown) (no (unknown) (unknown) I have utilized (units (unknown) date) all available unknown) resources to reconcile the patient's home (unknown) (no (unknown) (unknown) I spent a total of (units (unknown) date) [] minutes of unknown) critical care time on this patient's care (unknown) (no (unknown) (unknown) [facility] (units (unknown) date) [address] [place] [address] Street unknown) [place] [address] (unknown) (no (unknown) (unknown) Laboratory Results (units (unknown) date) - last 24 hr unknown) (unknown) (no (unknown) (unknown) Labs (units (unkno wn) date) unknown) (unknown) (no (unknown) (unknown) Labs: (units (unkno wn) date) unknown) (unknown) (no (unknown) (unknown) Lymph # (Auto) 400 (units (unknown) date) L unknown) (unknown) (no (unknown) (unknown) Lymph # (Auto) (units (unknown) date) unknown) (unknown) (no (unknown) (unknown) Lymph % (Auto) 3.9 (units (unknown) date) L unknown) (unknown) (no (unknown) (unknown) Lymph % (Auto) (units (unknown) date) unknown) (unknown) (no (unknown) (unknown) MCH 31.3 (units (unkno wn) date) unknown) (unknown) (no (unknown) (unknown) MCH (units (unkno wn) date) unknown) (unknown) (no (unknown) (unknown) MCHC 33.0 (units (unkn own) date) unknown) (unknown) (no (unknown) (unknown) MCHC (units (unkno wn) date) unknown) (unknown) (no (unknown) (unknown) MCV 94.9 (units (unkno wn) date) unknown) (unknown) (no (unknown) (unknown) MCV (units (unkno wn) date) unknown) (unknown) (no (unknown) (unknown) 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 (unknown) (no (unknown) (unknown) Marijuana use, (units (unknown) date) continuous unknown) (unknown) (no (unknown) (unknown) Medical History (units (unknown) date) (Reviewed 04/13/22 unknown) @ 09:52 by Mine Harrington DO) (unknown) (no (unknown) (unknown) Medication (units (unk nown) date) Instructions unknown) Recorded Confirmed Type (unknown) (no (unknown) (unknown) Meds (units (unkno wn) date) unknown) (unknown) (no (unknown) (unknown) [place] # (Auto) 100 (units (unknown) date) unknown) (unknown) (no (unknown) (unknown) [place] # (Auto) (units ( unknown) date) unknown) (unknown) (no (unknown) (unknown) [place] % (Auto) 1.1 (units (unknown) date) L unknown) (unknown) (no (unknown) (unknown) [place] % (Auto) (units ( unknown) date) unknown) (unknown) (no (unknown) (unknown) Mother Diabetes (units (unknown) date) mellitus unknown) (unknown) (no (unknown) (unknown) NECK: trachea (units ( unknown) date) midline, no JVD unknown) (unknown) (no (unknown) (unknown) NEURO: sedated due (units (unknown) date) to intubation unknown) (unknown) (no (unknown) (unknown) Narrative (units (unkn own) date) unknown) (unknown) (no (unknown) (unknown) Narrative: (units (unk nown) date) unknown) (unknown) (no (unknown) (unknown) Neut # (Auto) (units ( unknown) date) 26467 H unknown) (unknown) (no (unknown) (unknown) Neut # (Auto) (units ( unknown) date) unknown) (unknown) (no (unknown) (unknown) Neut % (Auto) 94.4 (units (unknown) date) H unknown) (unknown) (no (unknown) (unknown) Neut % (Auto) (units ( unknown) date) unknown) (unknown) (no (unknown) (unknown) Objective (units (unkn own) date) unknown) (unknown) (no (unknown) (unknown) Other Colon cancer (units (unknown) date) unknown) (unknown) (no (unknown) (unknown) Oxygen Delivery (units (unknown) date) Method Room Air unknown) Room Air (unknown) (no (unknown) (unknown) Oxygen Delivery (units (unknown) date) Method Room Air unknown) (unknown) (no (unknown) (unknown) Oxygen Delivery (units (unknown) date) Method unknown) (unknown) (no (unknown) (unknown) PT STATES (units (unkn own) date) unknown) (unknown) (no (unknown) (unknown) PULM: clear (units (un known) date) bilaterally unknown) (unknown) (no (unknown) (unknown) Pancreatitis (units (u nknown) date) unknown) (unknown) (no (unknown) (unknown) Patient History (units (unknown) date) unknown) (unknown) (no (unknown) (unknown) Patient: (units (unkno wn) date) Dameon Caputo A MR#: unknown) [id number] (unknown) (no (unknown) (unknown) Plt Count 238 (units ( unknown) date) unknown) (unknown) (no (unknown) (unknown) Plt Count (units (unkn own) date) unknown) (unknown) (no (unknown) (unknown) Potassium 3.5 (units ( unknown) date) unknown) (unknown) (no (unknown) (unknown) Potassium (units (unkn own) date) unknown) (unknown) (no (unknown) (unknown) Provider: (units (unkn own) date) Cuevas,Jean Carlos MD unknown) (unknown) (no (unknown) (unknown) Proxy: Chandra (units ( unknown) date) Shagufta, spouse unknown) (unknown) (no (unknown) (unknown) Pulse Oximetry 100 (units (unknown) date) 100 unknown) (unknown) (no (unknown) (unknown) Pulse Oximetry 100 (units (unknown) date) unknown) (unknown) (no (unknown) (unknown) Pulse Oximetry 85 (units (unknown) date) L unknown) (unknown) (no (unknown) (unknown) Pulse Oximetry 90 (units (unknown) date) L 99 unknown) (unknown) (no (unknown) (unknown) Pulse Oximetry 95 (units (unknown) date) 96 unknown) (unknown) (no (unknown) (unknown) Pulse Oximetry 95 (units (unknown) date) unknown) (unknown) (no (unknown) (unknown) Pulse Oximetry 96 (units (unknown) date) 96 unknown) (unknown) (no (unknown) (unknown) Pulse Oximetry 96 (units (unknown) date) 99 unknown) (unknown) (no (unknown) (unknown) Pulse Oximetry 96 (units (unknown) date) unknown) (unknown) (no (unknown) (unknown) Pulse Oximetry 98 (units (unknown) date) 98 unknown) (unknown) (no (unknown) (unknown) Pulse Oximetry 98 (units (unknown) date) 99 unknown) (unknown) (no (unknown) (unknown) Pulse Oximetry 98 (units (unknown) date) unknown) (unknown) (no (unknown) (unknown) Pulse Oximetry 99 (units (unknown) date) 97 unknown) (unknown) (no (unknown) (unknown) Pulse Oximetry 99 (units (unknown) date) 99 unknown) (unknown) (no (unknown) (unknown) Pulse Oximetry 99 (units (unknown) date) unknown) (unknown) (no (unknown) (unknown) Pulse Rate 104 H (units (unknown) date) unknown) (unknown) (no (unknown) (unknown) Pulse Rate 105 H (units (unknown) date) 96 H unknown) (unknown) (no (unknown) (unknown) Pulse Rate 108 H (units (unknown) date) unknown) (unknown) (no (unknown) (unknown) Pulse Rate 110 H (units (unknown) date) 127 H unknown) (unknown) (no (unknown) (unknown) Pulse Rate 115 H (units (unknown) date) unknown) (unknown) (no (unknown) (unknown) Pulse Rate 121 H (units (unknown) date) 109 H unknown) (unknown) (no (unknown) (unknown) Pulse Rate 129 H (units (unknown) date) 135 H unknown) (unknown) (no (unknown) (unknown) Pulse Rate 129 H (units (unknown) date) unknown) (unknown) (no (unknown) (unknown) Pulse Rate 134 H (units (unknown) date) unknown) (unknown) (no (unknown) (unknown) Pulse Rate 137 H (units (unknown) date) 135 H unknown) (unknown) (no (unknown) (unknown) Pulse Rate 138 H (units (unknown) date) 137 H unknown) (unknown) (no (unknown) (unknown) Pulse Rate 139 H (units (unknown) date) unknown) (unknown) (no (unknown) (unknown) Pulse Rate 87 96 H (units (unknown) date) unknown) (unknown) (no (unknown) (unknown) Pulse Rate 91 H (units (unknown) date) unknown) (unknown) (no (unknown) (unknown) Pulse Rate 93 H (units (unknown) date) unknown) (unknown) (no (unknown) (unknown) Pulse Rate 94 H 94 (units (unknown) date) H unknown) (unknown) (no (unknown) (unknown) Pulse Rate 95 H 94 (units (unknown) date) H unknown) (unknown) (no (unknown) (unknown) Pulse Rate 95 H (units (unknown) date) unknown) (unknown) (no (unknown) (unknown) Pulse Rate 96 H 75 (units (unknown) date) unknown) (unknown) (no (unknown) (unknown) Pulse Rate 98 H 97 (units (unknown) date) H unknown) (unknown) (no (unknown) (unknown) RBC 3.93 L (units (unk nown) date) unknown) (unknown) (no (unknown) (unknown) RBC (units (unkno wn) date) unknown) (unknown) (no (unknown) (unknown) RDW 13.2 (units (unkno wn) date) unknown) (unknown) (no (unknown) (unknown) RDW (units (unkno wn) date) unknown) (unknown) (no (unknown) (unknown) Respiratory Rate (units (unknown) date) 16 16 unknown) (unknown) (no (unknown) (unknown) Respiratory Rate (units (unknown) date) 16 unknown) (unknown) (no (unknown) (unknown) Respiratory Rate (units (unknown) date) 18 unknown) (unknown) (no (unknown) (unknown) Respiratory Rate (units (unknown) date) 19 24 unknown) (unknown) (no (unknown) (unknown) Respiratory Rate (units (unknown) date) 22 unknown) (unknown) (no (unknown) (unknown) Respiratory Rate (units (unknown) date) 24 34 H unknown) (unknown) (no (unknown) (unknown) Respiratory Rate (units (unknown) date) 24 unknown) (unknown) (no (unknown) (unknown) Respiratory Rate (units (unknown) date) 25 H 25 H unknown) (unknown) (no (unknown) (unknown) Respiratory Rate (units (unknown) date) 26 H 25 H unknown) (unknown) (no (unknown) (unknown) Respiratory Rate (units (unknown) date) 26 H 37 H unknown) (unknown) (no (unknown) (unknown) Respiratory Rate (units (unknown) date) 26 H unknown) (unknown) (no (unknown) (unknown) Respiratory Rate (units (unknown) date) 27 H 16 unknown) (unknown) (no (unknown) (unknown) Respiratory Rate (units (unknown) date) 32 H unknown) (unknown) (no (unknown) (unknown) Respiratory Rate (units (unknown) date) 35 H unknown) (unknown) (no (unknown) (unknown) Respiratory Rate (units (unknown) date) 42 H 42 H unknown) (unknown) (no (unknown) (unknown) Respiratory Rate (units (unknown) date) 52 H 39 H unknown) (unknown) (no (unknown) (unknown) Respiratory Rate (units (unknown) date) unknown) (unknown) (no (unknown) (unknown) Result Diagrams: (units (unknown) date) unknown) (unknown) (no (unknown) (unknown) Review of Systems (units (unknown) date) unknown) (unknown) (no (unknown) (unknown) Safety + (units (unkno wn) date) Behavioral: unknown) (unknown) (no (unknown) (unknown) Signed By: (units (unk nown) date) unknown) (unknown) (no (unknown) (unknown) Smoking Status (units (unknown) date) Current every day unknown) smoker (unknown) (no (unknown) (unknown) Social History: (units (unknown) date) unknown) (unknown) (no (unknown) (unknown) Sodium 143 (units (unk nown) date) unknown) (unknown) (no (unknown) (unknown) Sodium (units (unkno wn) date) unknown) (unknown) (no (unknown) (unknown) Substance Use Type (units (unknown) date) marijuana,crack/jeny unknown) sudha,former substance user, (unknown) (no (unknown) (unknown) Surgical History (units (unknown) date) (Reviewed 04/13/22 unknown) @ 09:52 by Mine Harrington DO) (unknown) (no (unknown) (unknown) TAKE WV (units (unkno wn) date) unknown) (unknown) (no (unknown) (unknown) TO IV SITE (units (unk nown) date) unknown) (unknown) (no (unknown) (unknown) Threatened By a (units (unknown) date) Person unknown) (unknown) (no (unknown) (unknown) Time Patient Seen: (units (unknown) date) 23:30 unknown) (unknown) (no (unknown) (unknown) Time Spent With (units (unknown) date) Patient unknown) (unknown) (no (unknown) (unknown) Tobacco + (units (unkn own) date) Substance use: unknown) (unknown) (no (unknown) (unknown) Tobacco type (units (u nknown) date) e-cigarettes unknown) (unknown) (no (unknown) (unknown) Total Bilirubin (units (unknown) date) 0.5 unknown) (unknown) (no (unknown) (unknown) Total Bilirubin (units (unknown) date) unknown) (unknown) (no (unknown) (unknown) Total Protein 7.7 (units (unknown) date) unknown) (unknown) (no (unknown) (unknown) Total Protein (units ( unknown) date) unknown) (unknown) (no (unknown) (unknown) U [...] Screen unknown) (unknown) (no (unknown) (unknown) Ur Culture (units (unk nown) date) Indicated? Cult not unknown) indicated (unknown) (no (unknown) (unknown) Ur Culture (units (unk nown) date) Indicated? unknown) (unknown) (no (unknown) (unknown) Ur Leukocyte (units (u nknown) date) Esterase Negative unknown) (unknown) (no (unknown) (unknown) Ur Leukocyte (units (u nknown) date) Esterase unknown) (unknown) (no (unknown) (unknown) Ur MDMA [...] Scrn unknown) (unknown) (no (unknown) (unknown) Ur Specific (units (un known) date) [place] 1.010 unknown) (unknown) (no (unknown) (unknown) Ur Specific (units (un known) date) [place] unknown) (unknown) (no (unknown) (unknown) Ur Squamous Epith (units (unknown) date) Cells 0-1 /hpf unknown) (unknown) (no (unknown) (unknown) Ur Squamous Epith (units (unknown) date) Cells unknown) (unknown) (no (unknown) (unknown) Ur Transition (units ( unknown) date) Epith Cell 0-1/hpf unknown) (unknown) (no (unknown) (unknown) Ur Transition (units ( unknown) date) Epith Cell unknown) (unknown) (no (unknown) (unknown) Urine Appearance (units (unknown) date) Clear unknown) (unknown) (no (unknown) (unknown) Urine Appearance (units (unknown) date) unknown) (unknown) (no (unknown) (unknown) Urine Bacteria (units (unknown) date) None seen unknown) (unknown) (no (unknown) (unknown) Urine Bacteria (units (unknown) date) unknown) (unknown) (no (unknown) (unknown) Urine Bilirubin (units (unknown) date) Negative unknown) (unknown) (no (unknown) (unknown) Urine Bilirubin (units (unknown) date) unknown) (unknown) (no (unknown) (unknown) Urine Cocaine (units ( unknown) date) Screen Negative unknown) (unknown) (no (unknown) (unknown) Urine Cocaine (units ( unknown) date) Screen unknown) (unknown) (no (unknown) (unknown) Urine Color Yellow (units (unknown) date) unknown) (unknown) (no (unknown) (unknown) Urine Color (units (un known) date) unknown) (unknown) (no (unknown) (unknown) Urine Glucose (UA) (units (unknown) date) 1+ H unknown) (unknown) (no (unknown) (unknown) Urine Glucose (UA) (units (unknown) date) unknown) (unknown) (no (unknown) (unknown) Urine Ketones (units ( unknown) date) Negative unknown) (unknown) (no (unknown) (unknown) Urine Ketones (units ( unknown) date) unknown) (unknown) (no (unknown) (unknown) Urine Methadone (units (unknown) date) Screen Negative unknown) (unknown) (no (unknown) (unknown) Urine Methadone (units (unknown) date) Screen unknown) (unknown) (no (unknown) (unknown) Urine Nitrate (units ( unknown) date) Negative unknown) (unknown) (no (unknown) (unknown) Urine Nitrate (units ( unknown) date) unknown) (unknown) (no (unknown) (unknown) Urine Occult Blood (units (unknown) date) Trace-lysed unknown) (unknown) (no (unknown) (unknown) Urine Occult Blood (units (unknown) date) unknown) (unknown) (no (unknown) (unknown) Urine Protein 1+ H (units (unknown) date) unknown) (unknown) [...] unknown) (unknown) (no (unknown) (unknown) Urine WBC None (units (unknown) date) seen unknown) (unknown) (no (unknown) (unknown) Urine WBC (units (unkn own) date) unknown) (unknown) (no (unknown) (unknown) Urine pH 7.0 (units (u nknown) date) unknown) (unknown) (no (unknown) (unknown) Urine pH (units (unkno wn) date) unknown) (unknown) (no (unknown) (unknown) Vital Signs (units (un known) date) unknown) (unknown) (no (unknown) (unknown) WBC 11.1 H (units (unk nown) date) unknown) (unknown) (no (unknown) (unknown) WBC (units (unkno wn) date) unknown) (unknown) (no (unknown) (unknown) [Embedded Image (units (unknown) date) Not Available] unknown) (unknown) (no (unknown) (unknown) [METOCLOPRAMIDE] (units (unknown) date) unknown) (unknown) (no (unknown) (unknown) alcohol intake (units (unknown) date) current unknown) (unknown) (no (unknown) (unknown) alcohol intake (units (unknown) date) frequency 3 or more unknown) drinks per day (unknown) (no (unknown) (unknown) bupropion HCl 100 (units (unknown) date) mg tablet,12 hr 100 unknown) mg PO DAILY #90 ea 04/14/22 Rx (unknown) (no (unknown) (unknown) drip (units (unkno wn) date) unknown) (unknown) (no (unknown) (unknown) household members (units (unknown) date) spouse unknown) (unknown) (no (unknown) (unknown) latex [LATEX] (units ( unknown) date) Allergy Unknown unknown) Verified 04/13/22 09:42 (unknown) (no (unknown) (unknown) medications (units (un known) date) unknown) (unknown) (no (unknown) (unknown) medications. (units (u nknown) date) unknown) (unknown) (no (unknown) (unknown) methamphetamine (units (unknown) date) unknown) (unknown) (no (unknown) (unknown) metoclopramide (units (unknown) date) AdvReac Unknown unknown) DYSTONIA Verified 04/13/22 09:42 (unknown) (no (unknown) (unknown) on UDS was (units (unk nown) date) negative unknown) (unknown) (no (unknown) (unknown) potassium chloride (units (unknown) date) 20 mEq 40 meq PO unknown) DAILY #90 tabs 04/14/22 Rx (unknown) (no (unknown) (unknown) promethazine (units (u nknown) date) [PROMETHAZINE] unknown) Allergy Mild ERYTHEMA Verified 04/13/22 09:42 (unknown) (no (unknown) (unknown) spironolactone 25 (units (unknown) date) mg tablet 25 mg PO unknown) DAILY #90 tabs 04/14/22 Rx (unknown) (no (unknown) (unknown) sustained-release (units (unknown) date) unknown) (unknown) (no (unknown) (unknown) tablet,extended (units (unknown) date) release unknown) (unknown) (no (unknown) (unknown) to substance abuse (units (unknown) date) unknown) (unknown) (no (unknown) (unknown) today; this time (units (unknown) date) is exclusive of unknown) procedural time. (unknown) (no (unknown) (unknown) unable due to (units ( unknown) date) patient intubated unknown) and sedated Result panel 667 (unknown) (no (unknown) (unknown) (no value) (units (unk nown) date) unknown) (unknown) (no (unknown) (unknown) (past 8 hours): (units (unknown) date) unknown) (unknown) (no (unknown) (unknown) -check a1c (units (unk nown) date) unknown) (unknown) (no (unknown) (unknown) -continued to (units ( unknown) date) worsen respiratory unknown) status resulted in intubation and epinephrine (unknown) (no (unknown) (unknown) -hold (units (unkno wn) date) spironolacatone for unknown) now (unknown) (no (unknown) (unknown) -hold well-butrin (units (unknown) date) for now unknown) (unknown) (no (unknown) (unknown) -therapy assistant (units (u nknown) date) consulted unknown) (unknown) (no (unknown) (unknown) -no clear (units (unkn own) date) precipitating unknown) factors, no Vick-inhibitors or other causative (unknown) (no (unknown) (unknown) -on propofol, (units ( unknown) date) fentanyl, and unknown) versed and difficult to keep sedated, possibly due (unknown) (no (unknown) (unknown) -patient received (units (unknown) date) steroids, unknown) epinephrine, and anti-histamines in ED (unknown) (no (unknown) (unknown) -previous testing (units (unknown) date) showed normal C1 unknown) and C4 levels (unknown) (no (unknown) (unknown) -previously (units (unk nown) date) suspected cocaine unknown) as cause of angioedema, but this admission cocaine (unknown) (no (unknown) (unknown) -secondary to (units ( unknown) date) sedation unknown) (unknown) (no (unknown) (unknown) -wean sedation as (units (unknown) date) able, keep on epi unknown) for now (unknown) (no (unknown) (unknown) 1. Angioedema with (units (unknown) date) respiratory failure unknown) (unknown) (no (unknown) (unknown) 07/05/22 07/05/22 (units (unknown) date) 07/05/22 unknown) (unknown) (no (unknown) (unknown) 07/05/22 07/05/22 (units (unknown) date) unknown) (unknown) (no (unknown) (unknown) 07/05/22 22:56 (units (unknown) date) unknown) (unknown) (no (unknown) (unknown) 07/05/22 (units (unkno wn) date) unknown) (unknown) (no (unknown) (unknown) 07/06/22 0201 (units ( unknown) date) unknown) (unknown) (no (unknown) (unknown) 18:19 07/05/22 (units (unknown) date) unknown) (unknown) (no (unknown) (unknown) 18:30 07/05/22 (units (unknown) date) unknown) (unknown) (no (unknown) (unknown) 19:40 (units (unkno wn) date) unknown) (unknown) (no (unknown) (unknown) 19:50 07/05/22 (units (unknown) date) unknown) (unknown) (no (unknown) (unknown) 2. Anxiety (units (unk nown) date) unknown) (unknown) (no (unknown) (unknown) 20:00 07/05/22 (units (unknown) date) unknown) (unknown) (no (unknown) (unknown) 20:00 (units (unkno wn) date) unknown) (unknown) (no (unknown) (unknown) 20:10 07/05/22 (units (unknown) date) unknown) (unknown) (no (unknown) (unknown) 20:10 (units (unkno wn) date) unknown) (unknown) (no (unknown) (unknown) 20:17 07/05/22 (units (unknown) date) unknown) (unknown) (no (unknown) (unknown) 20:21 07/05/22 (units (unknown) date) unknown) (unknown) (no (unknown) (unknown) 20:21 (units (unkno wn) date) unknown) (unknown) (no (unknown) (unknown) 20:26 20:26 22:56 (units (unknown) date) unknown) (unknown) (no (unknown) (unknown) 20:30 07/05/22 (units (unknown) date) unknown) (unknown) (no (unknown) (unknown) 20:31 07/05/22 (units (unknown) date) unknown) (unknown) (no (unknown) (unknown) 20:31 (units (unkno wn) date) unknown) (unknown) (no (unknown) (unknown) 20:36 07/05/22 (units (unknown) date) unknown) (unknown) (no (unknown) (unknown) 20:36 (units (unkno wn) date) unknown) (unknown) (no (unknown) (unknown) 20:40 07/05/22 (units (unknown) date) unknown) (unknown) (no (unknown) (unknown) 20:50 07/05/22 (units (unknown) date) unknown) (unknown) (no (unknown) (unknown) 20:50 (units (unkno wn) date) unknown) (unknown) (no (unknown) (unknown) 21:00 07/05/22 (units (unknown) date) unknown) (unknown) (no (unknown) (unknown) 21:00 (units (unkno wn) date) unknown) (unknown) (no (unknown) (unknown) 21:10 07/05/22 (units (unknown) date) unknown) (unknown) (no (unknown) (unknown) 21:20 07/05/22 (units (unknown) date) unknown) (unknown) (no (unknown) (unknown) 21:20 (units (unkno wn) date) unknown) (unknown) (no (unknown) (unknown) 21:30 07/05/22 (units (unknown) date) unknown) (unknown) (no (unknown) (unknown) 21:30 (units (unkno wn) date) unknown) (unknown) (no (unknown) (unknown) 21:40 07/05/22 (units (unknown) date) unknown) (unknown) (no (unknown) (unknown) 21:50 07/05/22 (units (unknown) date) unknown) (unknown) (no (unknown) (unknown) 21:50 (units (unkno wn) date) unknown) (unknown) (no (unknown) (unknown) 22:00 07/05/22 (units (unknown) date) unknown) (unknown) (no (unknown) (unknown) 22:00 (units (unkno wn) date) unknown) (unknown) (no (unknown) (unknown) 22:10 07/05/22 (units (unknown) date) unknown) (unknown) (no (unknown) (unknown) 22:15 07/05/22 (units (unknown) date) unknown) (unknown) (no (unknown) (unknown) 22:15 (units (unkno wn) date) unknown) (unknown) (no (unknown) (unknown) 22:20 07/05/22 (units (unknown) date) unknown) (unknown) (no (unknown) (unknown) 22:20 (units (unkno wn) date) unknown) (unknown) (no (unknown) (unknown) 22:30 07/05/22 (units (unknown) date) unknown) (unknown) (no (unknown) (unknown) 22:40 07/05/22 (units (unknown) date) unknown) (unknown) (no (unknown) (unknown) 22:40 (units (unkno wn) date) unknown) (unknown) (no (unknown) (unknown) 22:51 07/05/22 (units (unknown) date) unknown) (unknown) (no (unknown) (unknown) 22:51 (units (unkno wn) date) unknown) (unknown) (no (unknown) (unknown) 22:52 07/05/22 (units (unknown) date) unknown) (unknown) (no (unknown) (unknown) 22:56 22:56 (units (un known) date) unknown) (unknown) (no (unknown) (unknown) 22:59 (units (unkno wn) date) unknown) (unknown) (no (unknown) (unknown) 23:00 07/05/22 (units (unknown) date) unknown) (unknown) (no (unknown) (unknown) 23:10 07/05/22 (units (unknown) date) unknown) (unknown) (no (unknown) (unknown) 23:10 (units (unkno wn) date) unknown) (unknown) (no (unknown) (unknown) 23:20 07/05/22 (units (unknown) date) unknown) (unknown) (no (unknown) (unknown) 23:20 (units (unkno wn) date) unknown) (unknown) (no (unknown) (unknown) 23:30 07/05/22 (units (unknown) date) unknown) (unknown) (no (unknown) (unknown) 23:30 (units (unkno wn) date) unknown) (unknown) (no (unknown) (unknown) [id number] (units (unkno wn) date) unknown) (unknown) (no (unknown) (unknown) 3. Hypertension (units (unknown) date) unknown) (unknown) (no (unknown) (unknown) 4. Hyperglycemia (units (unknown) date) unknown) (unknown) (no (unknown) (unknown) 5. Hypotension (units (unknown) date) unknown) (unknown) (no (unknown) (unknown) ABD: soft, (units (unk nown) date) nontender unknown) (unknown) (no (unknown) (unknown) ABLE TO (units (unkno wn) date) unknown) (unknown) (no (unknown) (unknown) ALT 32 (units (unkno wn) date) unknown) (unknown) (no (unknown) (unknown) ALT (units (unkno wn) date) unknown) (unknown) (no (unknown) (unknown) AST 65 H (units (unkno wn) date) unknown) (unknown) (no (unknown) (unknown) AST (units (unkno wn) date) unknown) (unknown) (no (unknown) (unknown) Abscess (units (unkno wn) date) unknown) (unknown) (no (unknown) (unknown) Age/Sex: 46 / F (units (unknown) date) unknown) (unknown) (no (unknown) (unknown) Albumin 4.2 (units (un known) date) unknown) (unknown) (no (unknown) (unknown) Albumin (units (unkno wn) date) unknown) (unknown) (no (unknown) (unknown) Albumin/Globulin (units (unknown) date) Ratio 1.2 unknown) (unknown) (no (unknown) (unknown) Albumin/Globulin (units (unknown) date) Ratio unknown) (unknown) (no (unknown) (unknown) Alkaline (units (unkno wn) date) Phosphatase 78 unknown) (unknown) (no (unknown) (unknown) Alkaline (units (unkno wn) date) Phosphatase unknown) (unknown) (no (unknown) (unknown) Allergies (units (unkn own) date) unknown) (unknown) (no (unknown) (unknown) Allergy/AdvReac (units (unknown) date) Type Severity unknown) Reaction Status Date / Time (unknown) (no (unknown) (unknown) Assessment + Plan (units (unknown) date) narrative: unknown) (unknown) (no (unknown) (unknown) Assessment + Plan (units (unknown) date) unknown) (unknown) (no (unknown) (unknown) BUN 7 (units (unkno wn) date) unknown) (unknown) (no (unknown) (unknown) BUN (units (unkno wn) date) unknown) (unknown) (no (unknown) (unknown) BUN/Creatinine (units (unknown) date) Ratio 9.7 unknown) (unknown) (no (unknown) (unknown) BUN/Creatinine (units (unknown) date) Ratio unknown) (unknown) (no (unknown) (unknown) Baso # (Auto) 100 (units (unknown) date) unknown) (unknown) (no (unknown) (unknown) Baso # (Auto) (units ( unknown) date) unknown) (unknown) (no (unknown) (unknown) Baso % (Auto) 0.5 (units (unknown) date) unknown) (unknown) (no (unknown) (unknown) Baso % (Auto) (units ( unknown) date) unknown) (unknown) (no (unknown) (unknown) Been Physically (units (unknown) date) Hurt or No unknown) (unknown) (no (unknown) (unknown) Blood Pressure (units (unknown) date) 104/75 106/76 unknown) (unknown) (no (unknown) (unknown) Blood Pressure (units (unknown) date) 105/73 unknown) (unknown) (no (unknown) (unknown) Blood Pressure (units (unknown) date) 106/73 77/50 L unknown) (unknown) (no (unknown) (unknown) Blood Pressure (units (unknown) date) 107/72 unknown) (unknown) (no (unknown) (unknown) Blood Pressure (units (unknown) date) 128/71 unknown) (unknown) (no (unknown) (unknown) Blood Pressure (units (unknown) date) 171/129 H 158/107 H unknown) (unknown) (no (unknown) (unknown) Blood Pressure (units (unknown) date) 172/104 H unknown) (unknown) (no (unknown) (unknown) Blood Pressure (units (unknown) date) 174/105 H unknown) (unknown) (no (unknown) (unknown) Blood Pressure (units (unknown) date) 178/121 H unknown) (unknown) (no (unknown) (unknown) Blood Pressure (units (unknown) date) 179/126 H unknown) (unknown) (no (unknown) (unknown) Blood Pressure (units (unknown) date) 186/107 H 178/108 H unknown) (unknown) (no (unknown) (unknown) Blood Pressure (units (unknown) date) 186/123 H unknown) (unknown) (no (unknown) (unknown) Blood Pressure (units (unknown) date) 187/129 H 175/118 H unknown) (unknown) (no (unknown) (unknown) Blood Pressure (units (unknown) date) 188/134 H unknown) (unknown) (no (unknown) (unknown) Blood Pressure (units (unknown) date) 201/136 H 174/111 H unknown) (unknown) (no (unknown) (unknown) Blood Pressure (units (unknown) date) 213/111 H 172/103 H unknown) (unknown) (no (unknown) (unknown) Blood Pressure (units (unknown) date) 217/106 H 244/157 H unknown) (unknown) (no (unknown) (unknown) Blood Pressure (units (unknown) date) 91/63 unknown) (unknown) (no (unknown) (unknown) Blood Pressure (units (unknown) date) 93/65 unknown) (unknown) (no (unknown) (unknown) Blood Pressure (units (unknown) date) 96/61 96/64 unknown) (unknown) (no (unknown) (unknown) Blood Type O (units (u nknown) date) Positive unknown) (unknown) (no (unknown) (unknown) Blood Type (units (unk nown) date) unknown) (unknown) (no (unknown) (unknown) CODE: Full (units (unk nown) date) unknown) (unknown) (no (unknown) (unknown) CV: regular rate (units (unknown) date) and rhythm, no unknown) murmurs (unknown) (no (unknown) (unknown) Calcium 8.0 L (units ( unknown) date) unknown) (unknown) (no (unknown) (unknown) Calcium (units (unkno wn) date) unknown) (unknown) (no (unknown) (unknown) Carbon Dioxide 24 (units (unknown) date) unknown) (unknown) (no (unknown) (unknown) Carbon Dioxide (units (unknown) date) unknown) (unknown) (no (unknown) (unknown) Chief complaint: (units (unknown) date) Keeps biting unknown) tongue, Jaw clenched (unknown) (no (unknown) (unknown) Chloride 106 (units (u nknown) date) unknown) (unknown) (no (unknown) (unknown) Chloride (units (unkno wn) date) unknown) (unknown) (no (unknown) (unknown) Chronic abdominal (units (unknown) date) pain unknown) (unknown) (no (unknown) (unknown) Creatinine 0.72 (units (unknown) date) unknown) (unknown) (no (unknown) (unknown) Creatinine (units (unk nown) date) unknown) (unknown) (no (unknown) (unknown) Critical Care (units ( unknown) date) time: unknown) (unknown) (no (unknown) (unknown) Cyclic vomiting (units (unknown) date) syndrome unknown) (unknown) (no (unknown) (unknown) : 1975 (units (unknown) date) Acct:[id number] unknown) (unknown) (no (unknown) (unknown) Date Patient Seen: (units (unknown) date) 07/05/22 unknown) (unknown) (no (unknown) (unknown) Date of Service: (units (unknown) date) 07/05/22 unknown) (unknown) (no (unknown) (unknown) Daughter (units (unkno wn) date) Angio-edema unknown) (unknown) (no (unknown) (unknown) ED she had rapid (units (unknown) date) worsening of her unknown) respiratory status with enlarging tongue and (unknown) (no (unknown) (unknown) EXT: warm and well (units (unknown) date) perfused unknown) (unknown) (no (unknown) (unknown) Environment (units (un known) date) unknown) (unknown) (no (unknown) (unknown) Eos # (Auto) 0 (units (unknown) date) unknown) (unknown) (no (unknown) (unknown) Eos # (Auto) (units (u nknown) date) unknown) (unknown) (no (unknown) (unknown) Eos % (Auto) 0.1 L (units (unknown) date) unknown) (unknown) (no [...] (unknown) Family History (units (unknown) date) (Reviewed 07/06/22 unknown) @ 01:55 by Jean Carlos Cuevas MD) (unknown) (no (unknown) (unknown) Family history of (units (unknown) date) angioedema unknown) (unknown) (no (unknown) (unknown) Father (units (unkno wn) date) Hypertension unknown) (unknown) (no (unknown) (unknown) Feels Safe in (units ( unknown) date) Current Yes unknown) (unknown) (no (unknown) (unknown) GEN: intubated and (units (unknown) date) sedated unknown) (unknown) (no (unknown) (unknown) Globulin 3.5 (units (u nknown) date) unknown) (unknown) (no (unknown) (unknown) Globulin (units (unkno wn) date) unknown) (unknown) (no (unknown) (unknown) Glucose 296 H (units ( unknown) date) unknown) (unknown) (no (unknown) (unknown) Glucose (units (unkno wn) date) unknown) (unknown) (no (unknown) (unknown) HEENT: PERRL, (units ( unknown) date) moist mucous unknown) membranes (unknown) (no (unknown) (unknown) Hct 37.3 (units (unkno wn) date) unknown) (unknown) (no (unknown) (unknown) Hct (units (unkno wn) date) unknown) (unknown) (no (unknown) (unknown) Hgb 12.3 (units (unkno wn) date) unknown) (unknown) (no (unknown) (unknown) Hgb (units (unkno wn) date) unknown) (unknown) (no (unknown) (unknown) History + Physical (units (unknown) date) Report unknown) (unknown) (no (unknown) (unknown) History of Present (units (unknown) date) Illness unknown) (unknown) (no (unknown) (unknown) Home Medications (units (unknown) date) and Allergies unknown) (unknown) (no (unknown) (unknown) Home Medications (units (unknown) date) unknown) (unknown) (no (unknown) (unknown) Hx of appendectomy (units (unknown) date) unknown) (unknown) (no (unknown) (unknown) Hx of (units (unkno wn) date) cholecystectomy unknown) (unknown) (no (unknown) (unknown) I have utilized (units (unknown) date) all available unknown) resources to reconcile the patient's home (unknown) (no (unknown) (unknown) I spent a total of (units (unknown) date) 41 minutes of unknown) critical care time on this patient's care (unknown) (no (unknown) (unknown) ICU for further (units (unknown) date) treatment. unknown) (unknown) (no (unknown) (unknown) In the ED workup (units (unknown) date) was done, vitals unknown) initially notable for tachycardia and (unknown) (no (unknown) (unknown) [facility] (units (unknown) date) [address] unknown) [place] [address] (unknown) (no (unknown) (unknown) Laboratory Results (units (unknown) date) - last 24 hr unknown) (unknown) (no (unknown) (unknown) Labs (units (unkno wn) date) unknown) (unknown) (no (unknown) (unknown) Labs: (units (unkno wn) date) unknown) (unknown) (no (unknown) (unknown) Lymph # (Auto) 400 (units (unknown) date) L unknown) (unknown) (no (unknown) (unknown) Lymph # (Auto) (units (unknown) date) unknown) (unknown) (no (unknown) (unknown) Lymph % (Auto) 3.9 (units (unknown) date) L unknown) (unknown) (no (unknown) (unknown) Lymph % (Auto) (units (unknown) date) unknown) (unknown) (no (unknown) (unknown) MCH 31.3 (units (unkno wn) date) unknown) (unknown) (no (unknown) (unknown) MCH (units (unkno wn) date) unknown) (unknown) (no (unknown) (unknown) MCHC 33.0 (units (unkn own) date) unknown) (unknown) (no (unknown) (unknown) MCHC (units (unkno wn) date) unknown) (unknown) (no (unknown) (unknown) MCV 94.9 (units (unkno wn) date) unknown) (unknown) (no (unknown) (unknown) MCV (units (unkno wn) date) unknown) (unknown) (no (unknown) (unknown) 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 (unknown) (no (unknown) (unknown) Marijuana use, (units (unknown) date) continuous unknown) (unknown) (no (unknown) (unknown) Medical History (units (unknown) date) (Reviewed 07/06/22 unknown) @ 01:55 by Jean Carlos Cuevas MD) (unknown) (no (unknown) (unknown) Medication (units (unk nown) date) Instructions unknown) Recorded Confirmed Type (unknown) (no (unknown) (unknown) Meds (units (unkno wn) date) unknown) (unknown) (no (unknown) (unknown) [place] # (Auto) 100 (units (unknown) date) unknown) (unknown) (no (unknown) (unknown) [place] # (Auto) (units ( unknown) date) unknown) (unknown) (no (unknown) (unknown) [place] % (Auto) 1.1 (units (unknown) date) L unknown) (unknown) (no (unknown) (unknown) [place] % (Auto) (units ( unknown) date) unknown) (unknown) (no (unknown) (unknown) Mother Diabetes (units (unknown) date) mellitus unknown) (unknown) (no (unknown) (unknown) Ms. Caputo is a (units (unknown) date) 46W with PMH unknown) angioedema, marijuana and cocaine use who presents (unknown) (no (unknown) (unknown) NECK: trachea (units ( unknown) date) midline, no JVD unknown) (unknown) (no (unknown) (unknown) NEURO: sedated due (units (unknown) date) to intubation unknown) (unknown) (no (unknown) (unknown) Narrative (units (unkn own) date) unknown) (unknown) (no (unknown) (unknown) Narrative: (units (unk nown) date) unknown) (unknown) (no (unknown) (unknown) Neut # (Auto) (units ( unknown) date) 75775 H unknown) (unknown) (no (unknown) (unknown) Neut # (Auto) (units ( unknown) date) unknown) (unknown) (no (unknown) (unknown) Neut % (Auto) 94.4 (units (unknown) date) H unknown) (unknown) (no (unknown) (unknown) Neut % (Auto) (units ( unknown) date) unknown) (unknown) (no (unknown) (unknown) Objective (units (unkn own) date) unknown) (unknown) (no (unknown) (unknown) Other Colon cancer (units (unknown) date) unknown) (unknown) (no (unknown) (unknown) Oxygen Delivery (units (unknown) date) Method Room Air unknown) Room Air (unknown) (no (unknown) (unknown) Oxygen Delivery (units (unknown) date) Method Room Air unknown) (unknown) (no (unknown) (unknown) Oxygen Delivery (units (unknown) date) Method unknown) (unknown) (no (unknown) (unknown) PT STATES (units (unkn own) date) unknown) (unknown) (no (unknown) (unknown) PULM: clear (units (un known) date) bilaterally unknown) (unknown) (no (unknown) (unknown) Pancreatitis (units (u nknown) date) unknown) (unknown) (no (unknown) (unknown) Patient History (units (unknown) date) unknown) (unknown) (no (unknown) (unknown) Patient: (units (unkno wn) date) Dameon Caputo MR#: unknown) [id number] (unknown) (no (unknown) (unknown) Plt Count 238 (units ( unknown) date) unknown) (unknown) (no (unknown) (unknown) Plt Count (units (unkn own) date) unknown) (unknown) (no (unknown) (unknown) Potassium 3.5 (units ( unknown) date) unknown) (unknown) (no (unknown) (unknown) Potassium (units (unkn own) date) unknown) (unknown) (no (unknown) (unknown) Provider: (units (unkn own) date) Jean Carlos Cuevas MD unknown) (unknown) (no (unknown) (unknown) Proxy: Chandra (units ( unknown) date) Shagufta, spouse unknown) (unknown) (no (unknown) (unknown) Pulse Oximetry 100 (units (unknown) date) 100 unknown) (unknown) (no (unknown) (unknown) Pulse Oximetry 100 (units (unknown) date) unknown) (unknown) (no (unknown) (unknown) Pulse Oximetry 85 (units (unknown) date) L unknown) (unknown) (no (unknown) (unknown) Pulse Oximetry 90 (units (unknown) date) L 99 unknown) (unknown) (no (unknown) (unknown) Pulse Oximetry 95 (units (unknown) date) 96 unknown) (unknown) (no (unknown) (unknown) Pulse Oximetry 95 (units (unknown) date) unknown) (unknown) (no (unknown) (unknown) Pulse Oximetry 96 (units (unknown) date) 96 unknown) (unknown) (no (unknown) (unknown) Pulse Oximetry 96 (units (unknown) date) 99 unknown) (unknown) (no (unknown) (unknown) Pulse Oximetry 96 (units (unknown) date) unknown) (unknown) (no (unknown) (unknown) Pulse Oximetry 98 (units (unknown) date) 98 unknown) (unknown) (no (unknown) (unknown) Pulse Oximetry 98 (units (unknown) date) 99 unknown) (unknown) (no (unknown) (unknown) Pulse Oximetry 98 (units (unknown) date) unknown) (unknown) (no (unknown) (unknown) Pulse Oximetry 99 (units (unknown) date) 97 unknown) (unknown) (no (unknown) (unknown) Pulse Oximetry 99 (units (unknown) date) 99 unknown) (unknown) (no (unknown) (unknown) Pulse Oximetry 99 (units (unknown) date) unknown) (unknown) (no (unknown) (unknown) Pulse Rate 104 H (units (unknown) date) unknown) (unknown) (no (unknown) (unknown) Pulse Rate 105 H (units (unknown) date) 96 H unknown) (unknown) (no (unknown) (unknown) Pulse Rate 108 H (units (unknown) date) unknown) (unknown) (no (unknown) (unknown) Pulse Rate 110 H (units (unknown) date) 127 H unknown) (unknown) (no (unknown) (unknown) Pulse Rate 115 H (units (unknown) date) unknown) (unknown) (no (unknown) (unknown) Pulse Rate 121 H (units (unknown) date) 109 H unknown) (unknown) (no (unknown) (unknown) Pulse Rate 129 H (units (unknown) date) 135 H unknown) (unknown) (no (unknown) (unknown) Pulse Rate 129 H (units (unknown) date) unknown) (unknown) (no (unknown) (unknown) Pulse Rate 134 H (units (unknown) date) unknown) (unknown) (no (unknown) (unknown) Pulse Rate 137 H (units (unknown) date) 135 H unknown) (unknown) (no (unknown) (unknown) Pulse Rate 138 H (units (unknown) date) 137 H unknown) (unknown) (no (unknown) (unknown) Pulse Rate 139 H (units (unknown) date) unknown) (unknown) (no (unknown) (unknown) Pulse Rate 87 96 H (units (unknown) date) unknown) (unknown) (no (unknown) (unknown) Pulse Rate 91 H (units (unknown) date) unknown) (unknown) (no (unknown) (unknown) Pulse Rate 93 H (units (unknown) date) unknown) (unknown) (no (unknown) (unknown) Pulse Rate 94 H 94 (units (unknown) date) H unknown) (unknown) (no (unknown) (unknown) Pulse Rate 95 H 94 (units (unknown) date) H unknown) (unknown) (no (unknown) (unknown) Pulse Rate 95 H (units (unknown) date) unknown) (unknown) (no (unknown) (unknown) Pulse Rate 96 H 75 (units (unknown) date) unknown) (unknown) (no (unknown) (unknown) Pulse Rate 98 H 97 (units (unknown) date) H unknown) (unknown) (no (unknown) (unknown) RBC 3.93 L (units (unk nown) date) unknown) (unknown) (no (unknown) (unknown) RBC (units (unkno wn) date) unknown) (unknown) (no (unknown) (unknown) RDW 13.2 (units (unkno wn) date) unknown) (unknown) (no (unknown) (unknown) RDW (units (unkno wn) date) unknown) (unknown) (no (unknown) (unknown) Respiratory Rate (units (unknown) date) 16 16 unknown) (unknown) (no (unknown) (unknown) Respiratory Rate (units (unknown) date) 16 unknown) (unknown) (no (unknown) (unknown) Respiratory Rate (units (unknown) date) 18 unknown) (unknown) (no (unknown) (unknown) Respiratory Rate (units (unknown) date) 19 24 unknown) (unknown) (no (unknown) (unknown) Respiratory Rate (units (unknown) date) 22 unknown) (unknown) (no (unknown) (unknown) Respiratory Rate (units (unknown) date) 24 34 H unknown) (unknown) (no (unknown) (unknown) Respiratory Rate (units (unknown) date) 24 unknown) (unknown) (no (unknown) (unknown) Respiratory Rate (units (unknown) date) 25 H 25 H unknown) (unknown) (no (unknown) (unknown) Respiratory Rate (units (unknown) date) 26 H 25 H unknown) (unknown) (no (unknown) (unknown) Respiratory Rate (units (unknown) date) 26 H 37 H unknown) (unknown) (no (unknown) (unknown) Respiratory Rate (units (unknown) date) 26 H unknown) (unknown) (no (unknown) (unknown) Respiratory Rate (units (unknown) date) 27 H 16 unknown) (unknown) (no (unknown) (unknown) Respiratory Rate (units (unknown) date) 32 H unknown) (unknown) (no (unknown) (unknown) Respiratory Rate (units (unknown) date) 35 H unknown) (unknown) (no (unknown) (unknown) Respiratory Rate (units (unknown) date) 42 H 42 H unknown) (unknown) (no (unknown) (unknown) Respiratory Rate (units (unknown) date) 52 H 39 H unknown) (unknown) (no (unknown) (unknown) Respiratory Rate (units (unknown) date) unknown) (unknown) (no (unknown) (unknown) Result Diagrams: (units (unknown) date) unknown) (unknown) (no (unknown) (unknown) Review of Systems (units (unknown) date) unknown) (unknown) (no (unknown) (unknown) Safety + (units (unkno wn) date) Behavioral: unknown) (unknown) (no (unknown) (unknown) Signed (units (unkno wn) date) By:<Electronically unknown) signed by Jean Carlos Cuevas MD> (unknown) (no (unknown) (unknown) Smoking Status (units (unknown) date) Current every day unknown) smoker (unknown) (no (unknown) (unknown) Social History: (units (unknown) date) unknown) (unknown) (no (unknown) (unknown) Sodium 143 (units (unk nown) date) unknown) (unknown) (no (unknown) (unknown) Sodium (units (unkno wn) date) unknown) (unknown) (no (unknown) (unknown) Substance Use Type (units (unknown) date) marijuana,crack/jeny unknown) sudha,former substance user, (unknown) (no (unknown) (unknown) Surgical History (units (unknown) date) (Reviewed 07/06/22 unknown) @ 01:55 by Jean Carlos Cuevas MD) (unknown) (no (unknown) (unknown) TAKE WV (units (unkno wn) date) unknown) (unknown) (no (unknown) (unknown) TO IV SITE (units (unk nown) date) unknown) (unknown) (no (unknown) (unknown) Threatened By a (units (unknown) date) Person unknown) (unknown) (no (unknown) (unknown) Time Patient Seen: (units (unknown) date) 23:30 unknown) (unknown) (no (unknown) (unknown) Time Spent With (units (unknown) date) Patient unknown) (unknown) (no (unknown) (unknown) Tobacco + (units (unkn own) date) Substance use: unknown) (unknown) (no (unknown) (unknown) Tobacco type (units (u nknown) date) e-cigarettes unknown) (unknown) (no (unknown) (unknown) Total Bilirubin (units (unknown) date) 0.5 unknown) (unknown) (no (unknown) (unknown) Total Bilirubin (units (unknown) date) unknown) (unknown) (no (unknown) (unknown) Total Protein 7.7 (units (unknown) date) unknown) (unknown) (no (unknown) (unknown) Total Protein (units ( unknown) date) unknown) (unknown) (no (unknown) (unknown) U [...] Screen unknown) (unknown) (no (unknown) (unknown) Ur Culture (units (unk nown) date) Indicated? Cult not unknown) indicated (unknown) (no (unknown) (unknown) Ur Culture (units (unk nown) date) Indicated? unknown) (unknown) (no (unknown) (unknown) Ur Leukocyte (units (u nknown) date) Esterase Negative unknown) (unknown) (no (unknown) (unknown) Ur Leukocyte (units (u nknown) date) Esterase unknown) (unknown) (no (unknown) (unknown) Ur MDMA [...] Scrn unknown) (unknown) (no (unknown) (unknown) Ur Specific (units (un known) date) [place] 1.010 unknown) (unknown) (no (unknown) (unknown) Ur Specific (units (un known) date) [place] unknown) (unknown) (no (unknown) (unknown) Ur Squamous Epith (units (unknown) date) Cells 0-1 /hpf unknown) (unknown) (no (unknown) (unknown) Ur Squamous Epith (units (unknown) date) Cells unknown) (unknown) (no (unknown) (unknown) Ur Transition (units ( unknown) date) Epith Cell 0-1/hpf unknown) (unknown) (no (unknown) (unknown) Ur Transition (units ( unknown) date) Epith Cell unknown) (unknown) (no (unknown) (unknown) Urine Appearance (units (unknown) date) Clear unknown) (unknown) (no (unknown) (unknown) Urine Appearance (units (unknown) date) unknown) (unknown) (no (unknown) (unknown) Urine Bacteria (units (unknown) date) None seen unknown) (unknown) (no (unknown) (unknown) Urine Bacteria (units (unknown) date) unknown) (unknown) (no (unknown) (unknown) Urine Bilirubin (units (unknown) date) Negative unknown) (unknown) (no (unknown) (unknown) Urine Bilirubin (units (unknown) date) unknown) (unknown) (no (unknown) (unknown) Urine Cocaine (units ( unknown) date) Screen Negative unknown) (unknown) (no (unknown) (unknown) Urine Cocaine (units ( unknown) date) Screen unknown) (unknown) (no (unknown) (unknown) Urine Color Yellow (units (unknown) date) unknown) (unknown) (no (unknown) (unknown) Urine Color (units (un known) date) unknown) (unknown) (no (unknown) (unknown) Urine Glucose (UA) (units (unknown) date) 1+ H unknown) (unknown) (no (unknown) (unknown) Urine Glucose (UA) (units (unknown) date) unknown) (unknown) (no (unknown) (unknown) Urine Ketones (units ( unknown) date) Negative unknown) (unknown) (no (unknown) (unknown) Urine Ketones (units ( unknown) date) unknown) (unknown) (no (unknown) (unknown) Urine Methadone (units (unknown) date) Screen Negative unknown) (unknown) (no (unknown) (unknown) Urine Methadone (units (unknown) date) Screen unknown) (unknown) (no (unknown) (unknown) Urine Nitrate (units ( unknown) date) Negative unknown) (unknown) (no (unknown) (unknown) Urine Nitrate (units ( unknown) date) unknown) (unknown) (no (unknown) (unknown) Urine Occult Blood (units (unknown) date) Trace-lysed unknown) (unknown) (no (unknown) (unknown) Urine Occult Blood (units (unknown) date) unknown) (unknown) (no (unknown) (unknown) Urine Protein 1+ H (units (unknown) date) unknown) (unknown) [...] unknown) (unknown) (no (unknown) (unknown) Urine WBC None (units (unknown) date) seen unknown) (unknown) (no (unknown) (unknown) Urine WBC (units (unkn own) date) unknown) (unknown) (no (unknown) (unknown) Urine pH 7.0 (units (u nknown) date) unknown) (unknown) (no (unknown) (unknown) Urine pH (units (unkno wn) date) unknown) (unknown) (no (unknown) (unknown) Vital Signs (units (un known) date) unknown) (unknown) (no (unknown) (unknown) WBC 11.1 H (units (unk nown) date) unknown) (unknown) (no (unknown) (unknown) WBC (units (unkno wn) date) unknown) (unknown) (no (unknown) (unknown) [Embedded Image (units (unknown) date) Not Available] unknown) (unknown) (no (unknown) (unknown) [METOCLOPRAMIDE] (units (unknown) date) unknown) (unknown) (no (unknown) (unknown) alcohol intake (units (unknown) date) current unknown) (unknown) (no (unknown) (unknown) alcohol intake (units (unknown) date) frequency 3 or more unknown) drinks per day (unknown) (no (unknown) (unknown) being examined. (units (unknown) date) But per report she unknown) developed tongue swelling but had no food or (unknown) (no (unknown) (unknown) bupropion HCl 100 (units (unknown) date) mg tablet,12 hr 100 unknown) mg PO DAILY #90 ea 04/14/22 Rx (unknown) (no (unknown) (unknown) drip (units (unkno wn) date) unknown) (unknown) (no (unknown) (unknown) household members (units (unknown) date) spouse unknown) (unknown) (no (unknown) (unknown) hypertension. Labs (units (unknown) date) notable for WBC unknown) 11.1, hgb 12.3, plts 238. Creatinin 0.72. She (unknown) (no (unknown) (unknown) hypotensive and (units (unknown) date) she was continued unknown) on the epi drip. She was transferred to the (unknown) (no (unknown) (unknown) latex [LATEX] (units ( unknown) date) Allergy Unknown unknown) Verified 04/13/22 09:42 (unknown) (no (unknown) (unknown) medication (units (unk nown) date) exposures. She unknown) reportedly has no recently used cocaine. While in the (unknown) (no (unknown) (unknown) medications (units (un known) date) unknown) (unknown) (no (unknown) (unknown) medications. (units (u nknown) date) unknown) (unknown) (no (unknown) (unknown) methamphetamine (units (unknown) date) unknown) (unknown) (no (unknown) (unknown) metoclopramide (units (unknown) date) AdvReac Unknown unknown) DYSTONIA Verified 04/13/22 09:42 (unknown) (no (unknown) (unknown) on UDS was (units (unk nown) date) negative unknown) (unknown) (no (unknown) (unknown) potassium chloride (units (unknown) date) 20 mEq 40 meq PO unknown) DAILY #90 tabs 04/14/22 Rx (unknown) (no (unknown) (unknown) previously and (units (unknown) date) these have resulted unknown) as normal. (unknown) (no (unknown) (unknown) promethazine (units (u nknown) date) [PROMETHAZINE] unknown) Allergy Mild ERYTHEMA Verified 04/13/22 09:42 (unknown) (no (unknown) (unknown) propofol, (units (unkn own) date) fentanyl, and unknown) versed. On these medications her blood pressure became (unknown) (no (unknown) (unknown) spironolactone 25 (units (unknown) date) mg tablet 25 mg PO unknown) DAILY #90 tabs 04/14/22 Rx (unknown) (no (unknown) (unknown) sustained-release (units (unknown) date) unknown) (unknown) (no (unknown) (unknown) tablet,extended (units (unknown) date) release unknown) (unknown) (no (unknown) (unknown) to substance abuse (units (unknown) date) unknown) (unknown) (no (unknown) (unknown) to the hospital (units (unknown) date) with sudden onset unknown) of tongue swelling. Patient is intubated when (unknown) (no (unknown) (unknown) today; this time (units (unknown) date) is exclusive of unknown) procedural time. (unknown) (no (unknown) (unknown) unable due to (units ( unknown) date) patient intubated unknown) and sedated (unknown) (no (unknown) (unknown) was initially (units ( unknown) date) difficult to sedate unknown) and ultimately sedation was improved on (unknown) (no (unknown) (unknown) was intubated. She (units (unknown) date) had previously been unknown) administered epi, and after intubation (unknown) (no (unknown) (unknown) was started on an (units (unknown) date) epi drip. She has unknown) had C1, and C4 sent multiple times Result panel 668 (unknown) (no date) (unknown) (unknown) Positive for (units ( unknown) MRSA unknown) (unknown) (no date) (unknown) (unknown) Positive for (units ( unknown) MRSA unknown) Result panel 669 (unknown) (no date) (unknown) (unknown) O Positive (units (un known) unknown) (unknown) (no date) (unknown) (unknown) O Positive (units (un known) unknown) (unknown) (no date) (unknown) (unknown) TRANSFUSED (units (un known) PRODUCT: Fresh unknown) Frozen Plasma COUNT: 1 Result panel 670 (unknown) (no date) (unknown) (unknown) TRANSFUSED (units (un known) PRODUCT: Fresh unknown) Frozen Plasma COUNT: 1 Result panel 671 (unknown) (no (unknown) (unknown) (no value) (units (unk nown) date) unknown) (unknown) (no (unknown) (unknown) 07/05/22 07/05/22 (units (unknown) date) 07/05/22 Range/Units unknown) (unknown) (no (unknown) (unknown) 07/05/22 21:17 (units (unknown) date) unknown) (unknown) (no (unknown) (unknown) 07/05/22 22:56 (units (unknown) date) unknown) (unknown) (no (unknown) (unknown) 07/05/22 (units (unkno wn) date) unknown) (unknown) (no (unknown) (unknown) 20:26 20:26 20:44 (units (unknown) date) unknown) (unknown) (no (unknown) (unknown) 22:10 07/05/22 (units (unknown) date) unknown) (unknown) (no (unknown) (unknown) 22:15 07/05/22 (units (unknown) date) unknown) (unknown) (no (unknown) (unknown) 22:15 (units (unkno wn) date) unknown) (unknown) (no (unknown) (unknown) 22:20 07/05/22 (units (unknown) date) unknown) (unknown) (no (unknown) (unknown) 22:20 (units (unkno wn) date) unknown) (unknown) (no (unknown) (unknown) 22:30 07/05/22 (units (unknown) date) unknown) (unknown) (no (unknown) (unknown) 22:40 07/05/22 (units (unknown) date) unknown) (unknown) (no (unknown) (unknown) 22:40 (units (unkno wn) date) unknown) (unknown) (no (unknown) (unknown) 22:51 07/05/22 (units (unknown) date) unknown) (unknown) (no (unknown) (unknown) 22:51 (units (unkno wn) date) unknown) (unknown) (no (unknown) (unknown) 22:52 07/05/22 (units (unknown) date) unknown) (unknown) (no (unknown) (unknown) 22:52 (units (unkno wn) date) unknown) (unknown) (no (unknown) (unknown) 22:56 22:56 22:56 (units (unknown) date) unknown) (unknown) (no (unknown) (unknown) [id number] (units (unkno wn) date) unknown) (unknown) (no (unknown) (unknown) ABLE TO (units (unkno wn) date) unknown) (unknown) (no (unknown) (unknown) ABO RH Type Stat (units (unknown) date) unknown) (unknown) (no (unknown) (unknown) ALT (<35) IU/L (units (unknown) date) unknown) (unknown) (no (unknown) (unknown) ALT 32 (<35) IU/L (units (unknown) date) unknown) (unknown) (no (unknown) (unknown) AST (14-36) IU/L (units (unknown) date) unknown) (unknown) (no (unknown) (unknown) AST 65 H (14-36) (units (unknown) date) IU/L unknown) (unknown) (no (unknown) (unknown) Abscess (units (unkno wn) date) unknown) (unknown) (no (unknown) (unknown) Adenovirus (PCR) (units (unknown) date) (Not Detect) unknown) (unknown) (no (unknown) (unknown) Adenovirus (PCR) (units (unknown) date) Detected H (Not unknown) Detect) (unknown) (no (unknown) (unknown) Admin: 07/05/22 (units (unknown) date) 18:38 Dose: 1,000 unknown) mls/hr (unknown) (no (unknown) (unknown) Admin: 07/05/22 (units (unknown) date) 18:46 Dose: 200 unknown) mls/hr (unknown) (no (unknown) (unknown) Admin: 07/05/22 (units (unknown) date) 19:39 Dose: 1,000 unknown) mls/hr (unknown) (no (unknown) (unknown) Admin: 07/05/22 (units (unknown) date) 20:24 Dose: 80 mg unknown) (unknown) (no (unknown) (unknown) Admin: 07/05/22 (units (unknown) date) 20:30 Dose: 15 unknown) mcg/kg/min, 5.715 mls/hr (unknown) (no (unknown) (unknown) Admin: 07/05/22 (units (unknown) date) 20:34 Dose: 80 mg unknown) (unknown) (no (unknown) (unknown) Admin: 07/05/22 (units (unknown) date) 20:44 Dose: 80 mg unknown) (unknown) (no (unknown) (unknown) Admin: 07/05/22 (units (unknown) date) 21:17 Dose: 0.7 unknown) mcg/kg/hr, 11.113 mls/hr (unknown) (no (unknown) (unknown) Admin: 07/05/22 (units (unknown) date) 21:30 Dose: Not unknown) Given (unknown) (no (unknown) (unknown) Admin: 07/05/22 (units (unknown) date) 21:38 Dose: 1 unknown) mcg/min, 3.75 mls/hr (unknown) (no (unknown) (unknown) Admin: 07/05/22 (units (unknown) date) 22:04 Dose: 80 mg unknown) (unknown) (no (unknown) (unknown) Admin: 07/05/22 (units (unknown) date) 23:28 Dose: 5 mg/hr, unknown) 25 mls/hr (unknown) (no (unknown) (unknown) Admit Date/Time: (units (unknown) date) 07/05/22 22:58 unknown) (unknown) (no (unknown) (unknown) Admit Provider: (units (unknown) date) Jean Carlos Cuevas unknown) (unknown) (no (unknown) (unknown) Age/Sex: 46 / F (units (unknown) date) unknown) (unknown) (no (unknown) (unknown) Albumin (3.5-5.0) (units (unknown) date) g/dL unknown) (unknown) (no (unknown) (unknown) Albumin 4.2 (units (un known) date) (3.5-5.0) g/dL unknown) (unknown) (no (unknown) (unknown) Albumin/Globulin (units (unknown) date) Ratio (1.0-2.8) unknown) (unknown) (no (unknown) (unknown) Albumin/Globulin (units (unknown) date) Ratio 1.2 (1.0-2.8) unknown) (unknown) (no (unknown) (unknown) Alcohol type: wine (units (unknown) date) unknown) (unknown) (no (unknown) (unknown) Alkaline (units (unkno wn) date) Phosphatase (38-126) unknown) U/L (unknown) (no (unknown) (unknown) Alkaline (units (unkno wn) date) Phosphatase 78 unknown) (38-126) U/L (unknown) (no (unknown) (unknown) Allergies (units (unkn own) date) unknown) (unknown) (no (unknown) (unknown) Allergy/AdvReac (units (unknown) date) Type Severity unknown) Reaction Status Date / Time (unknown) (no (unknown) (unknown) Anaphylaxis (units (un known) date) unknown) (unknown) (no (unknown) (unknown) Angioedema (units (unk nown) date) unknown) (unknown) (no (unknown) (unknown) Attestation: (units (u nknown) date) unknown) (unknown) (no (unknown) (unknown) B. pertussis DNA (units (unknown) date) (PCR) (Not Detecte) unknown) (unknown) (no (unknown) (unknown) B. pertussis DNA (units (unknown) date) (PCR) Not detected unknown) (Not Detecte) (unknown) (no (unknown) (unknown) B.parapertussis DNA (unit s (unknown) date) PCR (Not Detecte) unknown) (unknown) (no (unknown) (unknown) B.parapertussis DNA (unit s (unknown) date) PCR Not detected unknown) (Not Detecte) (unknown) (no (unknown) (unknown) BUN (7-17) mg/dL (units (unknown) date) unknown) (unknown) (no (unknown) (unknown) BUN 7 (7-17) mg/dL (units (unknown) date) unknown) (unknown) (no (unknown) (unknown) BUN/Creatinine (units (unknown) date) Ratio (6-22) unknown) (unknown) (no (unknown) (unknown) BUN/Creatinine (units (unknown) date) Ratio 9.7 (6-22) unknown) (unknown) (no (unknown) (unknown) Baso # (Auto) (units ( unknown) date) (0-100) /uL unknown) (unknown) (no (unknown) (unknown) Baso # (Auto) 100 (units (unknown) date) (0-100) /uL unknown) (unknown) (no (unknown) (unknown) Baso % (Auto) (0-2) (unit s (unknown) date) % unknown) (unknown) (no (unknown) (unknown) Baso % (Auto) 0.5 (units (unknown) date) (0-2) % unknown) (unknown) (no (unknown) (unknown) Bedside Urine (units ( unknown) date) Bilirubin - Negative unknown) (unknown) (no (unknown) (unknown) Bedside Urine (units ( unknown) date) Glucose 250 mg/dl unknown) (unknown) (no (unknown) (unknown) Bedside Urine (units ( unknown) date) Ketone +/- 5 unknown) (unknown) (no (unknown) (unknown) Bedside Urine (units ( unknown) date) Leukocytes - unknown) Negative (unknown) (no (unknown) (unknown) Bedside Urine (units ( unknown) date) Nitrite - Negative unknown) (unknown) (no (unknown) (unknown) Bedside Urine (units ( unknown) date) Occult Blood +/ unknown) (unknown) (no (unknown) (unknown) Bedside Urine (units ( unknown) date) Protein + 30 unknown) (unknown) (no (unknown) (unknown) Bedside Urine pH (units (unknown) date) 6.0 unknown) (unknown) (no (unknown) (unknown) Blood Pressure (units (unknown) date) 104/75 106/76 unknown) (unknown) (no (unknown) (unknown) Blood Pressure (units (unknown) date) 105/73 unknown) (unknown) (no (unknown) (unknown) Blood Pressure (units (unknown) date) 106/73 77/50 L unknown) (unknown) (no (unknown) (unknown) Blood Pressure (units (unknown) date) 107/72 unknown) (unknown) (no (unknown) (unknown) Blood Pressure (units (unknown) date) 128/71 unknown) (unknown) (no (unknown) (unknown) Blood Type O (units (u nknown) date) Positive unknown) (unknown) (no (unknown) (unknown) Blood Type (units (unk nown) date) unknown) (unknown) (no (unknown) (unknown) Calcium (8.4-10.2) (units (unknown) date) mg/dL unknown) (unknown) (no (unknown) (unknown) Calcium 8.0 L (units ( unknown) date) (8.4-10.2) mg/dL unknown) (unknown) (no (unknown) (unknown) Carbon Dioxide (units (unknown) date) (22-32) mmol/L unknown) (unknown) (no (unknown) (unknown) Carbon Dioxide 24 (units (unknown) date) (22-32) mmol/L unknown) (unknown) (no (unknown) (unknown) Chief complaint: (units (unknown) date) Allergic Reaction unknown) (unknown) (no (unknown) (unknown) Chlamy pneumoniae (units (unknown) date) PCR (Not Detect) unknown) (unknown) (no (unknown) (unknown) Chlamy pneumoniae (units (unknown) date) PCR Not detected unknown) (Not Detect) (unknown) (no (unknown) (unknown) Chlorhexidine (units ( unknown) date) Gluconate unknown) (Chlorhexidine Gluconate 15 Ml Cup) 15 ml PO Q6HR KIRIT (unknown) (no (unknown) (unknown) Chloride (98-107) (units (unknown) date) mmol/L unknown) (unknown) (no (unknown) (unknown) Chloride 106 (units (u nknown) date) (98-107) mmol/L unknown) (unknown) (no (unknown) (unknown) Chronic abdominal (units (unknown) date) pain unknown) (unknown) (no (unknown) (unknown) Clinical (units (unkno wn) date) Impression: unknown) (unknown) (no (unknown) (unknown) Complete Blood (units (unknown) date) Count AUTO DIFF Stat unknown) (unknown) (no (unknown) (unknown) Comprehensive (units ( unknown) date) Metabolic Panel Stat unknown) (unknown) (no (unknown) (unknown) Coronavirus 229E (units (unknown) date) (PCR) (Not Detect) unknown) (unknown) (no (unknown) (unknown) Coronavirus 229E (units (unknown) date) (PCR) Not detected unknown) (Not Detect) (unknown) (no (unknown) (unknown) Coronavirus HKU1 (units (unknown) date) (PCR) (Not Detect) unknown) (unknown) (no (unknown) (unknown) Coronavirus HKU1 (units (unknown) date) (PCR) Not detected unknown) (Not Detect) (unknown) (no (unknown) (unknown) Coronavirus NL63 (units (unknown) date) (PCR) (Not Detect) unknown) (unknown) (no (unknown) (unknown) Coronavirus NL63 (units (unknown) date) (PCR) Not detected unknown) (Not Detect) (unknown) (no (unknown) (unknown) Coronavirus OC43 (units (unknown) date) (PCR) (Not Detect) unknown) (unknown) (no (unknown) (unknown) Coronavirus OC43 (units (unknown) date) (PCR) Not detected unknown) (Not Detect) (unknown) (no (unknown) (unknown) Course (units (unkno wn) date) unknown) (unknown) (no (unknown) (unknown) Creatinine (units (unk nown) date) (0.52-1.04) mg/dL unknown) (unknown) (no (unknown) (unknown) Creatinine 0.72 (units (unknown) date) (0.52-1.04) mg/dL unknown) (unknown) (no (unknown) (unknown) Critical Care Time (units (unknown) date) unknown) (unknown) (no (unknown) (unknown) Critical Care Time: (unit s (unknown) date) Yes unknown) (unknown) (no (unknown) (unknown) Critical care time (units (unknown) date) is separate from unknown) other billable procedures. There is a high (unknown) (no (unknown) (unknown) Cyclic vomiting (units (unknown) date) syndrome unknown) (unknown) (no (unknown) (unknown) : 1975 (units (unknown) date) Acct:[id number] unknown) (unknown) (no (unknown) (unknown) Date of Service: (units (unknown) date) 07/05/22 unknown) (unknown) (no (unknown) (unknown) Daughter (units (unkno wn) date) Angio-edema unknown) (unknown) (no (unknown) (unknown) Departure (units (unkn own) date) unknown) (unknown) (no (unknown) (unknown) Dexamethasone (units ( unknown) date) (Dexamethasone 4 unknown) Mg/Ml Vial) 4 mg IV Q6HR KIRIT (unknown) (no (unknown) (unknown) Dextrose (Dextrose (units (unknown) date) 50 % In Water 25 unknown) Gm/50 Ml Syringe) 25 gm IV PRN PRN (unknown) (no (unknown) (unknown) Diltiazem HCl (units ( unknown) date) (Diltiazem 5 Mg/Ml unknown) Sdv) 20 mg IV NOW ONE (unknown) (no (unknown) (unknown) Diphenhydramine HCl (unit s (unknown) date) (Diphenhydramine 50 unknown) Mg/Ml Vial) 50 mg IM NOW ONE (unknown) (no (unknown) (unknown) Diphenhydramine HCl (unit s (unknown) date) (Diphenhydramine 50 unknown) Mg/Ml Vial) 50 mg IV NOW ONE (unknown) (no (unknown) (unknown) Diphenhydramine HCl (unit s (unknown) date) (Diphenhydramine 50 unknown) Mg/Ml Vial) 50 mg IV Q6HR KIRIT (unknown) (no (unknown) (unknown) Discharge Plan (units (unknown) date) unknown) (unknown) (no (unknown) (unknown) Discontinued (units (u nknown) date) Medications unknown) (unknown) (no (unknown) (unknown) Documented By: DKB (units (unknown) date) unknown) (unknown) (no (unknown) (unknown) Documented By: KH (units (unknown) date) unknown) (unknown) (no (unknown) (unknown) Documented By: KM (units (unknown) date) unknown) (unknown) (no (unknown) (unknown) Documented By: SMS (units (unknown) date) unknown) (unknown) (no (unknown) (unknown) ED Orders (units (unkn own) date) unknown) (unknown) (no (unknown) (unknown) EKG-12 Lead Routine (unit s (unknown) date) unknown) (unknown) (no (unknown) (unknown) ER Physician: (units ( unknown) date) Leslie Torres MD unknown) (unknown) (no (unknown) (unknown) Emergency Report (units (unknown) date) unknown) (unknown) (no (unknown) (unknown) Encounter type: (units (unknown) date) initial encounter unknown) Qualified Code(s): T78.2XXA - Anaphylactic (unknown) (no (unknown) (unknown) Encounter type: (units (unknown) date) initial encounter unknown) Qualified Code(s): T78.3XXA - Angioneurotic (unknown) (no (unknown) (unknown) Enoxaparin Sodium (units (unknown) date) (Enoxaparin 40 unknown) Mg/0.4 Ml Syringe) 40 mg SUBCUT DAILY KIRIT (unknown) (no (unknown) (unknown) Entero/Rhino (PCR) (units (unknown) date) (Not Detect) unknown) (unknown) (no (unknown) (unknown) Entero/Rhino (PCR) (units (unknown) date) Not detected (Not unknown) Detect) (unknown) (no (unknown) (unknown) Eos # (Auto) (units (u nknown) date) (0-450) /uL unknown) (unknown) (no (unknown) (unknown) Eos # (Auto) 0 (units (unknown) date) (0-450) /uL unknown) (unknown) (no (unknown) (unknown) Eos % (Auto) (2-4) (units (unknown) date) % unknown) (unknown) (no (unknown) (unknown) Eos % (Auto) 0.1 L (units (unknown) date) (2-4) % unknown) (unknown) (no (unknown) (unknown) Epinephrine HCl (units (unknown) date) (Epinephrine 1 unknown) Mg/Ml) 0.5 mg IM NOW ONE (unknown) (no (unknown) (unknown) Epinephrine HCl 4 (units (unknown) date) mg/ Dextrose 250 mls unknown) @ 3.75 mls/hr IV TITRATE KIRIT; Protocol (unknown) (no (unknown) (unknown) Esterase (units (unkno wn) date) unknown) (unknown) (no (unknown) (unknown) Estimated GFR > 60 (units (unknown) date) (>60) mL/min unknown) (unknown) (no (unknown) (unknown) Estimated GFR (>60) (unit s (unknown) date) mL/min unknown) (unknown) (no (unknown) (unknown) Etomidate (units (unkn own) date) (Etomidate 2 Mg/Ml unknown) 10 Ml Vial) 20 mg IV NOW ONE (unknown) (no (unknown) (unknown) Exam (units (unkno wn) date) unknown) (unknown) (no (unknown) (unknown) FFP [Fresh Frozen (units (unknown) date) Plasma] Stat unknown) (unknown) (no (unknown) (unknown) Family History (units (unknown) date) (Reviewed 07/06/22 @ unknown) 01:55 by Jean Carlos Cuevas MD) (unknown) (no (unknown) (unknown) Family history of (units (unknown) date) angioedema unknown) (unknown) (no (unknown) (unknown) Famotidine (units (unk nown) date) (Famotidine 20 Mg/2 unknown) Ml Vial) 40 mg IV DAILY ONE (unknown) (no (unknown) (unknown) Father Hypertension (unit s (unknown) date) unknown) (unknown) (no (unknown) (unknown) Fentanyl 1,000 mcg/ (unit s (unknown) date) Dextrose 250 mls @ unknown) 11.113 mls/hr IV TITRATE KIRIT; Protocol (unknown) (no (unknown) (unknown) General (units (unkno wn) date) unknown) (unknown) (no (unknown) (unknown) Globulin (1.7-4.1) (units (unknown) date) g/dL unknown) (unknown) (no (unknown) (unknown) Globulin 3.5 (units (u nknown) date) (1.7-4.1) g/dL unknown) (unknown) (no (unknown) (unknown) Glucose (70-100) (units (unknown) date) mg/dL unknown) (unknown) (no (unknown) (unknown) Glucose 296 H (units ( unknown) date) (70-100) mg/dL unknown) (unknown) (no (unknown) (unknown) HPI - Allergic (units (unknown) date) Reaction unknown) (unknown) (no (unknown) (unknown) Hct (36-46) % (units ( unknown) date) unknown) (unknown) (no (unknown) (unknown) Hct 37.3 (36-46) % (units (unknown) date) unknown) (unknown) (no (unknown) (unknown) Hgb (12.0-16.0) (units (unknown) date) g/dL unknown) (unknown) (no (unknown) (unknown) Hgb 12.3 (units (unkno wn) date) (12.0-16.0) g/dL unknown) (unknown) (no (unknown) (unknown) Human Metapneumovir (unit s (unknown) date) PCR (Not Detect) unknown) (unknown) (no (unknown) (unknown) Human Metapneumovir (unit s (unknown) date) PCR Not detected unknown) (Not Detect) (unknown) (no (unknown) (unknown) Hx of appendectomy (units (unknown) date) unknown) (unknown) (no (unknown) (unknown) Hx of (units (unkno wn) date) cholecystectomy unknown) (unknown) (no (unknown) (unknown) Influenza Type A (units (unknown) date) (PCR) (Not Detect) unknown) (unknown) (no (unknown) (unknown) Influenza Type A (units (unknown) date) (PCR) Not detected unknown) (Not Detect) (unknown) (no (unknown) (unknown) Influenza Type B (units (unknown) date) (PCR) (Not Detect) unknown) (unknown) (no (unknown) (unknown) Influenza Type B (units (unknown) date) (PCR) Not detected unknown) (Not Detect) (unknown) (no (unknown) (unknown) Infusion: 07/05/22 (units (unknown) date) 23:53 Dose: 6 mg/hr, unknown) 30 mls/hr (unknown) (no (unknown) (unknown) Infusion: 07/06/22 (units (unknown) date) 01:37 Dose: 1.44 unknown) mg/hr, 7.2 mls/hr (unknown) (no (unknown) (unknown) Initial Vital Signs (unit s (unknown) date) unknown) (unknown) (no (unknown) (unknown) Initial Vital (units ( unknown) date) Signs: unknown) (unknown) (no (unknown) (unknown) Insulin Human (units ( unknown) date) Lispro (Insulin unknown) Lispro 100 Unit/Ml 3ml Vial) 0 unit SUBCUT ACHS (unknown) (no (unknown) (unknown) [facility] (units (unknown) date) [address] unknown) [place] [address] (unknown) (no (unknown) (unknown) Lab Data (units (unkno wn) date) unknown) (unknown) (no (unknown) (unknown) Lab Results (units (un known) date) unknown) (unknown) (no (unknown) (unknown) Labs: (units (unkno wn) date) unknown) (unknown) (no (unknown) (unknown) Last Admin: (units (un known) date) 07/05/22 18:38 Dose: unknown) 125 mg (unknown) (no (unknown) (unknown) Last Admin: (units (un known) date) 07/05/22 18:38 Dose: unknown) 40 mg (unknown) (no (unknown) (unknown) Last Admin: (units (un known) date) 07/05/22 18:39 Dose: unknown) 0.5 mg (unknown) (no (unknown) (unknown) Last Admin: (units (un known) date) 07/05/22 18:40 Dose: unknown) 50 mg (unknown) (no (unknown) (unknown) Last Admin: (units (un known) date) 07/05/22 18:43 Dose: unknown) Not Given (unknown) (no (unknown) (unknown) Last Admin: (units (un known) date) 07/05/22 18:53 Dose: unknown) 0.5 mg (unknown) (no (unknown) (unknown) Last Admin: (units (un known) date) 07/05/22 20:19 Dose: unknown) 20 mg (unknown) (no (unknown) (unknown) Last Admin: (units (un known) date) 07/05/22 20:20 Dose: unknown) 120 mg (unknown) (no (unknown) (unknown) Last Admin: (units (un known) date) 07/05/22 20:30 Dose: unknown) 100 mg (unknown) (no (unknown) (unknown) Last Admin: (units (un known) date) 07/05/22 21:07 Dose: unknown) 4 mg (unknown) (no (unknown) (unknown) Last Admin: (units (un known) date) 07/05/22 21:09 Dose: unknown) 20 mg (unknown) (no (unknown) (unknown) Last Admin: (units (un known) date) 07/05/22 21:30 Dose: unknown) Not Given (unknown) (no (unknown) (unknown) Last Admin: (units (un known) date) 07/05/22 21:57 Dose: unknown) Not Given (unknown) (no (unknown) (unknown) Last Admin: (units (un known) date) 07/05/22 22:50 Dose: unknown) 80 mg (unknown) (no (unknown) (unknown) Last Admin: (units (un known) date) 07/06/22 01:36 Dose: unknown) 15 ml (unknown) (no (unknown) (unknown) Last Admin: (units (un known) date) 07/06/22 01:36 Dose: unknown) 4 mg (unknown) (no (unknown) (unknown) Last Admin: (units (un known) date) 07/06/22 01:36 Dose: unknown) 50 mg (unknown) (no (unknown) (unknown) Last Infusion: (units (unknown) date) 07/05/22 19:24 Dose: unknown) 0 mls/hr (unknown) (no (unknown) (unknown) Last Infusion: (units (unknown) date) 07/05/22 19:40 Dose: unknown) 0 mls/hr (unknown) (no (unknown) (unknown) Last Infusion: (units (unknown) date) 07/05/22 21:28 Dose: unknown) 0 mls/hr (unknown) (no (unknown) (unknown) Last Infusion: (units (unknown) date) 07/06/22 02:04 Dose: unknown) 2 mg/hr, 10 mls/hr (unknown) (no (unknown) (unknown) Last Titration: (units (unknown) date) 07/06/22 02:19 Dose: unknown) 1.5 mcg/kg/hr, 23.814 mls/hr (unknown) (no (unknown) (unknown) Last Titration: (units (unknown) date) 07/06/22 05:19 Dose: unknown) 0 mcg/kg/min, 0 mls/hr (unknown) (no (unknown) (unknown) Last Titration: (units (unknown) date) 07/06/22 05:19 Dose: unknown) 3 mcg/min, 11.25 mls/hr (unknown) (no (unknown) (unknown) Lorazepam (units (unkn own) date) (Lorazepam 2 Mg/Ml unknown) Inj) 0.5 mg IV NOW ONE (unknown) (no (unknown) (unknown) Lymph # (Auto) (units (unknown) date) (3273-0970) /uL unknown) (unknown) (no (unknown) (unknown) Lymph # (Auto) 400 (units (unknown) date) L (3829-7275) /uL unknown) (unknown) (no (unknown) (unknown) Lymph % (Auto) (units (unknown) date) (25-40) % unknown) (unknown) (no (unknown) (unknown) Lymph % (Auto) 3.9 (units (unknown) date) L (25-40) % unknown) (unknown) (no (unknown) (unknown) M. pneumoniae (PCR) (unit s (unknown) date) (Not Detect) unknown) (unknown) (no (unknown) (unknown) M. pneumoniae (PCR) (unit s (unknown) date) Not detected (Not unknown) Detect) (unknown) (no (unknown) (unknown) MCH (26-34) PG (units (unknown) date) unknown) (unknown) (no (unknown) (unknown) MCH 31.3 (26-34) PG (unit s (unknown) date) unknown) (unknown) (no (unknown) (unknown) MCHC (30-36) % (units (unknown) date) unknown) (unknown) (no (unknown) (unknown) MCHC 33.0 (30-36) % (unit s (unknown) date) unknown) (unknown) (no (unknown) (unknown) MCV (80-100) fL (units (unknown) date) unknown) (unknown) (no (unknown) (unknown) MCV 94.9 (80-100) (units (unknown) date) fL unknown) (unknown) (no (unknown) (unknown) MDM - Allergic (units (unknown) date) Reaction unknown) (unknown) (no (unknown) (unknown) 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 (unknown) (no (unknown) (unknown) Marijuana use, (units (unknown) date) continuous unknown) (unknown) (no (unknown) (unknown) Medical History (units (unknown) date) (Reviewed 07/06/22 @ unknown) 01:55 by Jean Carlos Cuevas MD) (unknown) (no (unknown) (unknown) Medication (units (unk nown) date) Instructions unknown) Recorded (unknown) (no (unknown) (unknown) Methylprednisolone (units (unknown) date) (Methylprednisolone unknown) 125 Mg/2 Ml Vial) 125 mg IV NOW ONE (unknown) (no (unknown) (unknown) Midazolam HCl (units ( unknown) date) (Midazolam 5 Mg/Ml unknown) Vial) 4 mg IV NOW ONE (unknown) (no (unknown) (unknown) Midazolam HCl 50 (units (unknown) date) mg/ Dextrose 250 mls unknown) @ 25 mls/hr IV TITRATE KIRIT; Protocol (unknown) (no (unknown) (unknown) Mode of arrival: (units (unknown) date) Ambulatory unknown) (unknown) (no (unknown) (unknown) [place] # (Auto) (units ( unknown) date) (0-900) /uL unknown) (unknown) (no (unknown) (unknown) [place] # (Auto) 100 (units (unknown) date) (0-900) /uL unknown) (unknown) (no (unknown) (unknown) [place] % (Auto) (units ( unknown) date) (3-14) % unknown) (unknown) (no (unknown) (unknown) [place] % (Auto) 1.1 L (unit s (unknown) date) (3-14) % unknown) (unknown) (no (unknown) (unknown) Mother Diabetes (units (unknown) date) mellitus unknown) (unknown) (no (unknown) (unknown) Neut # (Auto) (units ( unknown) date) (8079-2630) /uL unknown) (unknown) (no (unknown) (unknown) Neut # (Auto) 93011 (unit s (unknown) date) H (8890-2928) /uL unknown) (unknown) (no (unknown) (unknown) Neut % (Auto) (units ( unknown) date) (50-75) % unknown) (unknown) (no (unknown) (unknown) Neut % (Auto) 94.4 (units (unknown) date) H (50-75) % unknown) (unknown) (no (unknown) (unknown) Ordered: (units (unkno wn) date) unknown) (unknown) (no (unknown) (unknown) Orders (units (unkno wn) date) unknown) (unknown) (no (unknown) (unknown) Other Colon cancer (units (unknown) date) unknown) (unknown) (no (unknown) (unknown) Oxygen Delivery (units (unknown) date) Method 07/05/22 unknown) 18:19 (unknown) (no (unknown) (unknown) PRN Reason: (units (un known) date) Hypoglycemia unknown) (unknown) (no (unknown) (unknown) PRN Reason: (units (un known) date) Sedation unknown) (unknown) (no (unknown) (unknown) PT [place] (units (unkn own) date) unknown) (unknown) (no (unknown) (unknown) Pancreatitis (units (u nknown) date) unknown) (unknown) (no (unknown) (unknown) Parainfluenza 1 (units (unknown) date) (PCR) (Not Detect) unknown) (unknown) (no (unknown) (unknown) Parainfluenza 1 (units (unknown) date) (PCR) Not detected unknown) (Not Detect) (unknown) (no (unknown) (unknown) Parainfluenza 2 (units (unknown) date) (PCR) (Not Detect) unknown) (unknown) (no (unknown) (unknown) Parainfluenza 2 (units (unknown) date) (PCR) Not detected unknown) (Not Detect) (unknown) (no (unknown) (unknown) Parainfluenza 3 (units (unknown) date) (PCR) (Not Detect) unknown) (unknown) (no (unknown) (unknown) Parainfluenza 3 (units (unknown) date) (PCR) Not detected unknown) (Not Detect) (unknown) (no (unknown) (unknown) Parainfluenza 4 (units (unknown) date) (PCR) (Not Detect) unknown) (unknown) (no (unknown) (unknown) Parainfluenza 4 (units (unknown) date) (PCR) Not detected unknown) (Not Detect) (unknown) (no (unknown) (unknown) Patient (units (unkno wn) date) Disposition: unknown) Admitted As Inpatient (unknown) (no (unknown) (unknown) Patient History (units (unknown) date) unknown) (unknown) (no (unknown) (unknown) Patient: (units (unkno wn) date) Dameon Caputo MR#: unknown) [id number] (unknown) (no (unknown) (unknown) Plt Count (150-400) (unit s (unknown) date) X103/uL unknown) (unknown) (no (unknown) (unknown) Plt Count 238 (units ( unknown) date) (150-400) X103/uL unknown) (unknown) (no (unknown) (unknown) Point of Care (units ( unknown) date) Testing unknown) (unknown) (no (unknown) (unknown) Potassium (3.4-5.1) (unit s (unknown) date) mmol/L unknown) (unknown) (no (unknown) (unknown) Potassium 3.5 (units ( unknown) date) (3.4-5.1) mmol/L unknown) (unknown) (no (unknown) (unknown) Test (units (unknown) date) Results Negative unknown) (unknown) (no (unknown) (unknown) Previous Rx's (units ( unknown) date) unknown) (unknown) (no (unknown) (unknown) Propofol (Propofol (units (unknown) date) 200 Mg/20 Ml Vial) unknown) 80 mg IV Q10MIN PRN (unknown) (no (unknown) (unknown) Propofol (Propofol) (unit s (unknown) date) 1,000 mg in 100 mls unknown) @ 1.905 mls/hr IV TITRATE KIRIT; Protocol (unknown) (no (unknown) (unknown) Pulse Oximetry 85 L (unit s (unknown) date) unknown) (unknown) (no (unknown) (unknown) Pulse Oximetry 95 (units (unknown) date) 96 unknown) (unknown) (no (unknown) (unknown) Pulse Oximetry 95 (units (unknown) date) unknown) (unknown) (no (unknown) (unknown) Pulse Oximetry 96 (units (unknown) date) unknown) (unknown) (no (unknown) (unknown) Pulse Oximetry 98 (units (unknown) date) 07/05/22 18:19 unknown) (unknown) (no (unknown) (unknown) Pulse Oximetry 98 (units (unknown) date) 99 unknown) (unknown) (no (unknown) (unknown) Pulse Rate 104 H (units (unknown) date) unknown) (unknown) (no (unknown) (unknown) Pulse Rate 105 H (units (unknown) date) unknown) (unknown) (no (unknown) (unknown) Pulse Rate 115 H (units (unknown) date) unknown) (unknown) (no (unknown) (unknown) Pulse Rate 95 H 94 (units (unknown) date) H unknown) (unknown) (no (unknown) (unknown) Pulse Rate 96 H (units (unknown) date) 07/05/22 18:19 unknown) (unknown) (no (unknown) (unknown) Pulse Rate 98 H 97 (units (unknown) date) H unknown) (unknown) (no (unknown) (unknown) Qualifiers: (units (un known) date) unknown) (unknown) (no (unknown) (unknown) RBC (4.0-5.2) (units ( unknown) date) X106/uL unknown) (unknown) (no (unknown) (unknown) RBC 3.93 L (units (unk nown) date) (4.0-5.2) X106/uL unknown) (unknown) (no (unknown) (unknown) RDW (11.6-14.8) % (units (unknown) date) unknown) (unknown) (no (unknown) (unknown) RDW 13.2 (units (unkno wn) date) (11.6-14.8) % unknown) (unknown) (no (unknown) (unknown) RSV (PCR) (Not (units (unknown) date) Detect) unknown) (unknown) (no (unknown) (unknown) RSV (PCR) Not (units ( unknown) date) detected (Not unknown) Detect) (unknown) (no (unknown) (unknown) Related Data (units (u nknown) date) unknown) (unknown) (no (unknown) (unknown) Respiratory Rate 18 (unit s (unknown) date) 07/05/22 18:19 unknown) (unknown) (no (unknown) (unknown) Respiratory Rate 22 (unit s (unknown) date) unknown) (unknown) (no (unknown) (unknown) Respiratory Rate 24 (unit s (unknown) date) unknown) (unknown) (no (unknown) (unknown) Respiratory Rate 25 (unit s (unknown) date) H 25 H unknown) (unknown) (no (unknown) (unknown) Respiratory Rate 26 (unit s (unknown) date) H 25 H unknown) (unknown) (no (unknown) (unknown) Respiratory Rate 52 (unit s (unknown) date) H unknown) (unknown) (no (unknown) (unknown) Result diagrams: (units (unknown) date) unknown) (unknown) (no (unknown) (unknown) Rocuronium [place] (units (unknown) date) (Rocuronium 50 Mg/5 unknown) Ml Inj) 100 mg IV NOW ONE (unknown) (no (unknown) (unknown) SARS-CoV-2 (PCR) (units (unknown) date) (Not Detecte) unknown) (unknown) (no (unknown) (unknown) SARS-CoV-2 (PCR) (units (unknown) date) Not detected (Not unknown) Detecte) (unknown) (no (unknown) (unknown) KIRIT; Protocol (units ( unknown) date) unknown) (unknown) (no (unknown) (unknown) Signed By: (units (unk nown) date) unknown) (unknown) (no (unknown) (unknown) Smoking Status: (units (unknown) date) Current every day unknown) smoker (unknown) (no (unknown) (unknown) Social History (units (unknown) date) (Reviewed 04/13/22 @ unknown) 09:52 by Mine Harrington DO) (unknown) (no (unknown) (unknown) Sodium (137-145) (units (unknown) date) mmol/L unknown) (unknown) (no (unknown) (unknown) Sodium 143 (units (unk nown) date) (137-145) mmol/L unknown) (unknown) (no (unknown) (unknown) Sodium Chloride (units (unknown) date) (Normal Saline 0.9%) unknown) 1,000 mls @ 1,000 mls/hr IV BOLUS ONE (unknown) (no (unknown) (unknown) Source: patient (units (unknown) date) unknown) (unknown) (no (unknown) (unknown) Stated complaint: (units (unknown) date) Keeps biting tongue, unknown) Jaw clenched (unknown) (no (unknown) (unknown) Stop: 07/05/22 (units (unknown) date) 18:25 unknown) (unknown) (no (unknown) (unknown) Stop: 07/05/22 (units (unknown) date) 18:26 unknown) (unknown) (no (unknown) (unknown) Stop: 07/05/22 (units (unknown) date) 18:29 unknown) (unknown) (no (unknown) (unknown) Stop: 07/05/22 (units (unknown) date) 18:48 unknown) (unknown) (no (unknown) (unknown) Stop: 07/05/22 (units (unknown) date) 19:05 unknown) (unknown) (no (unknown) (unknown) Stop: 07/05/22 (units (unknown) date) 19:25 unknown) (unknown) (no (unknown) (unknown) Stop: 07/05/22 (units (unknown) date) 19:35 unknown) (unknown) (no (unknown) (unknown) Stop: 07/05/22 (units (unknown) date) 20:20 unknown) (unknown) (no (unknown) (unknown) Stop: 07/05/22 (units (unknown) date) 20:21 unknown) (unknown) (no (unknown) (unknown) Stop: 07/05/22 (units (unknown) date) 21:03 unknown) (unknown) (no (unknown) (unknown) Stop: 07/05/22 (units (unknown) date) 21:49 unknown) (unknown) (no (unknown) (unknown) Substance Use Type: (unit s (unknown) date) former substance unknown) user, marijuana, crack/cocaine and (unknown) (no (unknown) (unknown) Succinylcholine (units (unknown) date) Chloride unknown) (Succinylcholine 200 Mg/10 Ml Vial) 120 mg IV NOW ONE (unknown) (no (unknown) (unknown) Surgical History (units (unknown) date) (Reviewed 07/06/22 @ unknown) 01:55 by Jean Carlos Cuevas MD) (unknown) (no (unknown) (unknown) TAKE WV (units (unkno wn) date) unknown) (unknown) (no (unknown) (unknown) TO IV SITE (units (unk nown) date) unknown) (unknown) (no (unknown) (unknown) This critical care (units (unknown) date) time includes unknown) consultation with family and other consulting (unknown) (no (unknown) (unknown) Time Seen by (units (u nknown) date) Provider: 07/05/22 unknown) 18:10 (unknown) (no (unknown) (unknown) Titration: 07/05/22 (unit s (unknown) date) 20:35 Dose: 20 unknown) mcg/kg/min, 7.62 mls/hr (unknown) (no (unknown) (unknown) Titration: 07/05/22 (unit s (unknown) date) 20:45 Dose: 35 unknown) mcg/kg/min, 13.336 mls/hr (unknown) (no (unknown) (unknown) Titration: 07/05/22 (unit s (unknown) date) 21:40 Dose: 1.5 unknown) mcg/kg/hr, 23.814 mls/hr (unknown) (no (unknown) (unknown) Titration: 07/05/22 (unit s (unknown) date) 21:50 Dose: 2 unknown) mcg/kg/hr, 31.752 mls/hr (unknown) (no (unknown) (unknown) Titration: 07/05/22 (unit s (unknown) date) 23:43 Dose: 30 unknown) mcg/kg/min, 11.431 mls/hr (unknown) (no (unknown) (unknown) Titration: 07/05/22 (unit s (unknown) date) 23:52 Dose: 25 unknown) mcg/kg/min, 9.525 mls/hr (unknown) (no (unknown) (unknown) Titration: 07/06/22 (unit s (unknown) date) 01:00 Dose: 1 unknown) mcg/kg/hr, 15.876 mls/hr (unknown) (no (unknown) (unknown) Titration: 07/06/22 (unit s (unknown) date) 01:00 Dose: 10 unknown) mcg/kg/min, 3.81 mls/hr (unknown) (no (unknown) (unknown) Titration: 07/06/22 (unit s (unknown) date) 01:36 Dose: 2 unknown) mcg/min, 7.5 mls/hr (unknown) (no (unknown) (unknown) Titration: 07/06/22 (unit s (unknown) date) 02:19 Dose: 5 unknown) mcg/kg/min, 1.905 mls/hr (unknown) (no (unknown) (unknown) Total Bilirubin (units (unknown) date) (0.2-1.3) mg/dL unknown) (unknown) (no (unknown) (unknown) Total Bilirubin 0.5 (unit s (unknown) date) (0.2-1.3) mg/dL unknown) (unknown) (no (unknown) (unknown) Total Critical Care (unit s (unknown) date) Time: 39 unknown) (unknown) (no (unknown) (unknown) Total Protein (units ( unknown) date) (6.3-8.2) g/dL unknown) (unknown) (no (unknown) (unknown) Total Protein 7.7 (units (unknown) date) (6.3-8.2) g/dL unknown) (unknown) (no (unknown) (unknown) Tranexamic Acid (units (unknown) date) 1,000 mg/ (Sodium unknown) Chloride) 100 mls @ 200 mls/hr IV NOW ONE (unknown) (no (unknown) (unknown) U Benzodiazepines (units (unknown) date) Scrn (Negative) unknown) (unknown) (no (unknown) (unknown) U Benzodiazepines (units (unknown) date) Scrn Negative unknown) (Negative) (unknown) (no (unknown) (unknown) U Marijuana (THC) (units (unknown) date) Screen (Negative) unknown) (unknown) (no (unknown) (unknown) U Marijuana (THC) (units (unknown) date) Screen Positive H unknown) (Negative) (unknown) (no (unknown) (unknown) U Methamphetamines (units (unknown) date) Scrn (Negative) unknown) (unknown) (no (unknown) (unknown) U Methamphetamines (units (unknown) date) Scrn Negative unknown) (Negative) (unknown) (no (unknown) (unknown) U Opiates 300ng/mL (units (unknown) date) cut (Negative) unknown) (unknown) (no (unknown) (unknown) U Opiates 300ng/mL (units (unknown) date) cut Negative unknown) (Negative) (unknown) (no (unknown) (unknown) U Tricyclic (units (un known) date) Antidepress unknown) (Negative) (unknown) (no (unknown) (unknown) U Tricyclic (units (un known) date) Antidepress Negative unknown) (Negative) (unknown) (no (unknown) (unknown) Ur Amphetamines (units (unknown) date) Screen (Negative) unknown) (unknown) (no (unknown) (unknown) Ur Amphetamines (units (unknown) date) Screen Negative unknown) (Negative) (unknown) (no (unknown) (unknown) Ur Barbiturates (units (unknown) date) Screen (Negative) unknown) (unknown) (no (unknown) (unknown) Ur Barbiturates (units (unknown) date) Screen Negative unknown) (Negative) (unknown) (no (unknown) (unknown) Ur Culture (units (unk nown) date) Indicated? Cult not unknown) indicated (unknown) (no (unknown) (unknown) Ur Culture (units (unk nown) date) Indicated? unknown) (unknown) (no (unknown) (unknown) Ur Leukocyte (units (u nknown) date) Esterase (NEGATIVE) unknown) (unknown) (no (unknown) (unknown) Ur Leukocyte (units (u nknown) date) Esterase Negative unknown) (NEGATIVE) (unknown) (no (unknown) (unknown) Ur MDMA Scrn (units (u nknown) date) (Ecstasy) (Negative) unknown) (unknown) (no (unknown) (unknown) Ur MDMA Scrn (units (u nknown) date) (Ecstasy) Negative unknown) (Negative) (unknown) (no (unknown) (unknown) Ur Oxycodone Screen (unit s (unknown) date) (Negative) unknown) (unknown) (no (unknown) (unknown) Ur Oxycodone Screen (unit s (unknown) date) Negative (Negative) unknown) (unknown) (no (unknown) (unknown) Ur Phencyclidine (units (unknown) date) Scrn (Negative) unknown) (unknown) (no (unknown) (unknown) Ur Phencyclidine (units (unknown) date) Scrn Negative unknown) (Negative) (unknown) (no (unknown) (unknown) Ur Specific [place] (unit s (unknown) date) (1.000-1.035) unknown) (unknown) (no (unknown) (unknown) Ur Specific [place] (unit s (unknown) date) 1.010 (1.000-1.035) unknown) (unknown) (no (unknown) (unknown) Ur Squamous Epith (units (unknown) date) Cells (0-5/HPF) unknown) (unknown) (no (unknown) (unknown) Ur Squamous Epith (units (unknown) date) Cells 0-1 /hpf unknown) (0-5/HPF) (unknown) (no (unknown) (unknown) Ur Transition Epith (unit s (unknown) date) Cell (0-5/HPF) unknown) (unknown) (no (unknown) (unknown) Ur Transition Epith (unit s (unknown) date) Cell 0-1/hpf unknown) (0-5/HPF) (unknown) (no (unknown) (unknown) Urine Appearance (units (unknown) date) Clear unknown) (unknown) (no (unknown) (unknown) Urine Appearance (units (unknown) date) unknown) (unknown) (no (unknown) (unknown) Urine Bacteria (units (unknown) date) (None) unknown) (unknown) (no (unknown) (unknown) Urine Bacteria None (unit s (unknown) date) seen (None) unknown) (unknown) (no (unknown) (unknown) Urine Bilirubin (units (unknown) date) (NEGATIVE) unknown) (unknown) (no (unknown) (unknown) Urine Bilirubin (units (unknown) date) Negative (NEGATIVE) unknown) (unknown) (no (unknown) (unknown) Urine Cocaine (units ( unknown) date) Screen (Negative) unknown) (unknown) (no (unknown) (unknown) Urine Cocaine (units ( unknown) date) Screen Negative unknown) (Negative) (unknown) (no (unknown) (unknown) Urine Color Yellow (units (unknown) date) unknown) (unknown) (no (unknown) (unknown) Urine Color (units (un known) date) unknown) (unknown) (no (unknown) (unknown) Urine Dip (units (unkn own) date) unknown) (unknown) (no (unknown) (unknown) Urine Glucose (UA) (units (unknown) date) (Negative) g/dL unknown) (unknown) (no (unknown) (unknown) Urine Glucose (UA) (units (unknown) date) 1+ H (Negative) g/dL unknown) (unknown) (no (unknown) (unknown) Urine Ketones (units ( unknown) date) (NEGATIVE) unknown) (unknown) (no (unknown) (unknown) Urine Ketones (units ( unknown) date) Negative (NEGATIVE) unknown) (unknown) (no (unknown) (unknown) Urine Methadone (units (unknown) date) Screen (Negative) unknown) (unknown) (no (unknown) (unknown) Urine Methadone (units (unknown) date) Screen Negative unknown) (Negative) (unknown) (no (unknown) (unknown) Urine Nitrate (units ( unknown) date) (Negative) unknown) (unknown) (no (unknown) (unknown) Urine Nitrate (units ( unknown) date) Negative (Negative) unknown) (unknown) (no (unknown) (unknown) Urine Occult Blood (units (unknown) date) (Negative) unknown) (unknown) (no (unknown) (unknown) Urine Occult Blood (units (unknown) date) Trace-lysed unknown) (Negative) (unknown) (no (unknown) (unknown) Urine Protein (units ( unknown) date) (Negative) unknown) (unknown) (no (unknown) (unknown) Urine Protein 1+ H (units (unknown) date) (Negative) unknown) (unknown) (no (unknown) (unknown) Urine RBC (0-5/HPF) (unit s (unknown) date) unknown) (unknown) (no (unknown) (unknown) Urine RBC 0-1/hpf (units (unknown) date) (0-5/HPF) unknown) (unknown) (no (unknown) (unknown) Urine Specific (units (unknown) date) [place] 1.020 unknown) (unknown) (no (unknown) (unknown) Urine Urobilinogen (units (unknown) date) (0.2) E.U./dL unknown) (unknown) (no (unknown) (unknown) Urine Urobilinogen (units (unknown) date) 0.2 (0.2) E.U./dL unknown) (unknown) (no (unknown) (unknown) Urine WBC (0-5/HPF) (unit s (unknown) date) unknown) (unknown) (no (unknown) (unknown) Urine WBC None seen (unit s (unknown) date) (0-5/HPF) unknown) (unknown) (no (unknown) (unknown) Urine pH (4.5-8.0) (units (unknown) date) unknown) (unknown) (no (unknown) (unknown) Urine pH 7.0 (units (u nknown) date) (4.5-8.0) unknown) (unknown) (no (unknown) (unknown) Vital Signs - 8 hr (units (unknown) date) unknown) (unknown) (no (unknown) (unknown) Vital Signs (units (un known) date) unknown) (unknown) (no (unknown) (unknown) Vital signs: (units (u nknown) date) unknown) (unknown) (no (unknown) (unknown) WBC (4.5-11.0) (units (unknown) date) X103/uL unknown) (unknown) (no (unknown) (unknown) WBC 11.1 H (units (unk nown) date) (4.5-11.0) X103/uL unknown) (unknown) (no (unknown) (unknown) [Embedded Image Not (unit s (unknown) date) Available] unknown) (unknown) (no (unknown) (unknown) [METOCLOPRAMIDE] (units (unknown) date) unknown) (unknown) (no (unknown) (unknown) alcohol intake (units (unknown) date) frequency: 3 or more unknown) drinks per day (unknown) (no (unknown) (unknown) alcohol intake: (units (unknown) date) current unknown) (unknown) (no (unknown) (unknown) bupropion HCl 100 (units (unknown) date) mg tablet,12 hr 100 unknown) mg PO DAILY #90 ea 04/14/22 (unknown) (no (unknown) (unknown) doctors, review of (units (unknown) date) records, and unknown) interpretation of data from labs, EKGs and (unknown) (no (unknown) (unknown) edema, initial (units (unknown) date) encounter unknown) (unknown) (no (unknown) (unknown) household members: (units (unknown) date) spouse unknown) (unknown) (no (unknown) (unknown) imaging as well as (units (unknown) date) managements of unknown) anaphylaxis with angioedema (unknown) (no (unknown) (unknown) latex [LATEX] (units ( unknown) date) Allergy Unknown unknown) Verified 04/13/22 09:42 (unknown) (no (unknown) (unknown) methamphetamine (units (unknown) date) unknown) (unknown) (no (unknown) (unknown) metoclopramide (units (unknown) date) AdvReac Unknown unknown) DYSTONIA Verified 04/13/22 09:42 (unknown) (no (unknown) (unknown) potassium chloride (units (unknown) date) 20 mEq 40 meq PO unknown) DAILY #90 tabs 04/14/22 (unknown) (no (unknown) (unknown) probability of a (units (unknown) date) significant, sudden unknown) or life-threatening deterioration that (unknown) (no (unknown) (unknown) promethazine (units (u nknown) date) [PROMETHAZINE] unknown) Allergy Mild ERYTHEMA Verified 04/13/22 09:42 (unknown) (no (unknown) (unknown) requires my full (units (unknown) date) and direct unknown) attention, intervention and personal management. (unknown) (no (unknown) (unknown) shock, unspecified, (unit s (unknown) date) initial encounter unknown) (unknown) (no (unknown) (unknown) spironolactone 25 (units (unknown) date) mg tablet 25 mg PO unknown) DAILY #90 tabs 04/14/22 (unknown) (no (unknown) (unknown) sustained-release (units (unknown) date) unknown) (unknown) (no (unknown) (unknown) tablet,extended (units (unknown) date) release unknown) (unknown) (no (unknown) (unknown) tobacco type: (units ( unknown) date) cigarettes and unknown) vaping Result panel [id number] (unknown) (no (unknown) (unknown) (no value) (units (unk nown) date) unknown) (unknown) (no (unknown) (unknown) <Electronically (units (unknown) date) signed by Leslie Mazariegos unknown) MD Melissa> (unknown) (no (unknown) (unknown) 1.? New (units (unkno wn) date) endotracheal tube unknown) tip approximately 6.5 cm from the matthew.? Consider (unknown) (no (unknown) (unknown) 07/05/22 07/05/22 (units (unknown) date) 07/05/22 Range/Units unknown) (unknown) (no (unknown) (unknown) 07/05/22 21:17 (units (unknown) date) unknown) (unknown) (no (unknown) (unknown) 07/05/22 22:56 (units (unknown) date) unknown) (unknown) (no (unknown) (unknown) 07/05/22 (units (unkno wn) date) unknown) (unknown) (no (unknown) (unknown) 07/06/22 0623 (units ( unknown) date) unknown) (unknown) (no (unknown) (unknown) 2. Pulmonary (units (u nknown) date) vascular prominence unknown) suggestive of mild edema. (unknown) (no (unknown) (unknown) 20:26 20:26 20:44 (units (unknown) date) unknown) (unknown) (no (unknown) (unknown) 22:10 07/05/22 (units (unknown) date) unknown) (unknown) (no (unknown) (unknown) 22:15 07/05/22 (units (unknown) date) unknown) (unknown) (no (unknown) (unknown) 22:15 (units (unkno wn) date) unknown) (unknown) (no (unknown) (unknown) 22:20 07/05/22 (units (unknown) date) unknown) (unknown) (no (unknown) (unknown) 22:20 (units (unkno wn) date) unknown) (unknown) (no (unknown) (unknown) 22:30 07/05/22 (units (unknown) date) unknown) (unknown) (no (unknown) (unknown) 22:40 07/05/22 (units (unknown) date) unknown) (unknown) (no (unknown) (unknown) 22:40 (units (unkno wn) date) unknown) (unknown) (no (unknown) (unknown) 22:51 07/05/22 (units (unknown) date) unknown) (unknown) (no (unknown) (unknown) 22:51 (units (unkno wn) date) unknown) (unknown) (no (unknown) (unknown) 22:52 07/05/22 (units (unknown) date) unknown) (unknown) (no (unknown) (unknown) 22:52 (units (unkno wn) date) unknown) (unknown) (no (unknown) (unknown) 22:56 22:56 22:56 (units (unknown) date) unknown) (unknown) (no (unknown) (unknown) [id number] (units (unkno wn) date) unknown) (unknown) (no (unknown) (unknown) 46-year-old woman (units (unknown) date) brought into room 1 unknown) with clenched jaw and developing (unknown) (no (unknown) (unknown) 46-year-old woman (units (unknown) date) with a long history unknown) of cyclic vomiting, polysubstance abuse (unknown) (no (unknown) (unknown) ? (units (unkno wn) date) unknown) (unknown) (no (unknown) (unknown) ABLE TO (units (unkno wn) date) unknown) (unknown) (no (unknown) (unknown) ABO RH Type Stat (units (unknown) date) unknown) (unknown) (no (unknown) (unknown) ALT (<35) IU/L (units (unknown) date) unknown) (unknown) (no (unknown) (unknown) ALT 32 (<35) IU/L (units (unknown) date) unknown) (unknown) (no (unknown) (unknown) AST (14-36) IU/L (units (unknown) date) unknown) (unknown) (no (unknown) (unknown) AST 65 H (14-36) (units (unknown) date) IU/L unknown) (unknown) (no (unknown) (unknown) Abdomen: Soft, (units (unknown) date) nontender, good unknown) bowel tones, no flank pain (unknown) (no (unknown) (unknown) Abscess (units (unkno wn) date) unknown) (unknown) (no (unknown) (unknown) Adenovirus (PCR) (units (unknown) date) (Not Detect) unknown) (unknown) (no (unknown) (unknown) Adenovirus (PCR) (units (unknown) date) Detected H (Not unknown) Detect) (unknown) (no (unknown) (unknown) Admin: 07/05/22 (units (unknown) date) 18:38 Dose: 1,000 unknown) mls/hr (unknown) (no (unknown) (unknown) Admin: 07/05/22 (units (unknown) date) 18:46 Dose: 200 unknown) mls/hr (unknown) (no (unknown) (unknown) Admin: 07/05/22 (units (unknown) date) 19:39 Dose: 1,000 unknown) mls/hr (unknown) (no (unknown) (unknown) Admin: 07/05/22 (units (unknown) date) 20:24 Dose: 80 mg unknown) (unknown) (no (unknown) (unknown) Admin: 07/05/22 (units (unknown) date) 20:30 Dose: 15 unknown) mcg/kg/min, 5.715 mls/hr (unknown) (no (unknown) (unknown) Admin: 07/05/22 (units (unknown) date) 20:34 Dose: 80 mg unknown) (unknown) (no (unknown) (unknown) Admin: 07/05/22 (units (unknown) date) 20:44 Dose: 80 mg unknown) (unknown) (no (unknown) (unknown) Admin: 07/05/22 (units (unknown) date) 21:17 Dose: 0.7 unknown) mcg/kg/hr, 11.113 mls/hr (unknown) (no (unknown) (unknown) Admin: 07/05/22 (units (unknown) date) 21:30 Dose: Not unknown) Given (unknown) (no (unknown) (unknown) Admin: 07/05/22 (units (unknown) date) 21:38 Dose: 1 unknown) mcg/min, 3.75 mls/hr (unknown) (no (unknown) (unknown) Admin: 07/05/22 (units (unknown) date) 22:04 Dose: 80 mg unknown) (unknown) (no (unknown) (unknown) Admin: 07/05/22 (units (unknown) date) 23:28 Dose: 5 mg/hr, unknown) 25 mls/hr (unknown) (no (unknown) (unknown) Admit Date/Time: (units (unknown) date) 07/05/22 22:58 unknown) (unknown) (no (unknown) (unknown) Admit Provider: (units (unknown) date) Jean Carlos Cueavs) (unknown) (no (unknown) (unknown) Age/Sex: 46 / F (units (unknown) date) unknown) (unknown) (no (unknown) (unknown) Albumin (3.5-5.0) (units (unknown) date) g/dL unknown) (unknown) (no (unknown) (unknown) Albumin 4.2 (units (un known) date) (3.5-5.0) g/dL unknown) (unknown) (no (unknown) (unknown) Albumin/Globulin (units (unknown) date) Ratio (1.0-2.8) unknown) (unknown) (no (unknown) (unknown) Albumin/Globulin (units (unknown) date) Ratio 1.2 (1.0-2.8) unknown) (unknown) (no (unknown) (unknown) Alcohol type: wine (units (unknown) date) unknown) (unknown) (no (unknown) (unknown) Alkaline (units (unkno wn) date) Phosphatase (38-126) unknown) U/L (unknown) (no (unknown) (unknown) Alkaline (units (unkno wn) date) Phosphatase 78 unknown) (38-126) U/L (unknown) (no (unknown) (unknown) Allergies (units (unkn own) date) unknown) (unknown) (no (unknown) (unknown) Allergy/AdvReac (units (unknown) date) Type Severity unknown) Reaction Status Date / Time (unknown) (no (unknown) (unknown) Anaphylaxis (units (un known) date) unknown) (unknown) (no (unknown) (unknown) Angioedema (units (unk nown) date) unknown) (unknown) (no (unknown) (unknown) Assist Device Used: (unit s (unknown) date) fiber optic device unknown) (unknown) (no (unknown) (unknown) Attestation: (units (u nknown) date) unknown) (unknown) (no (unknown) (unknown) B. pertussis DNA (units (unknown) date) (PCR) (Not Detecte) unknown) (unknown) (no (unknown) (unknown) B. pertussis DNA (units (unknown) date) (PCR) Not detected unknown) (Not Detecte) (unknown) (no (unknown) (unknown) B.parapertussis DNA (unit s (unknown) date) PCR (Not Detecte) unknown) (unknown) (no (unknown) (unknown) B.parapertussis DNA (unit s (unknown) date) PCR Not detected unknown) (Not Detecte) (unknown) (no (unknown) (unknown) BUN (7-17) mg/dL (units (unknown) date) unknown) (unknown) (no (unknown) (unknown) BUN 7 (7-17) mg/dL (units (unknown) date) unknown) (unknown) (no (unknown) (unknown) BUN/Creatinine (units (unknown) date) Ratio (6-22) unknown) (unknown) (no (unknown) (unknown) BUN/Creatinine (units (unknown) date) Ratio 9.7 (6-22) unknown) (unknown) (no (unknown) (unknown) Baso # (Auto) (units ( unknown) date) (0-100) /uL unknown) (unknown) (no (unknown) (unknown) Baso # (Auto) 100 (units (unknown) date) (0-100) /uL unknown) (unknown) (no (unknown) (unknown) Baso % (Auto) (0-2) (unit s (unknown) date) % unknown) (unknown) (no (unknown) (unknown) Baso % (Auto) 0.5 (units (unknown) date) (0-2) % unknown) (unknown) (no (unknown) (unknown) Bedside Urine (units ( unknown) date) Bilirubin - Negative unknown) (unknown) (no (unknown) (unknown) Bedside Urine (units ( unknown) date) Glucose 250 mg/dl unknown) (unknown) (no (unknown) (unknown) Bedside Urine (units ( unknown) date) Ketone +/- 5 unknown) (unknown) (no (unknown) (unknown) Bedside Urine (units ( unknown) date) Leukocytes - unknown) Negative (unknown) (no (unknown) (unknown) Bedside Urine (units ( unknown) date) Nitrite - Negative unknown) (unknown) (no (unknown) (unknown) Bedside Urine (units ( unknown) date) Occult Blood +/ unknown) (unknown) (no (unknown) (unknown) Bedside Urine (units ( unknown) date) Protein + 30 unknown) (unknown) (no (unknown) (unknown) Bedside Urine pH (units (unknown) date) 6.0 unknown) (unknown) (no (unknown) (unknown) Blood Pressure (units (unknown) date) 104/75 106/76 unknown) (unknown) (no (unknown) (unknown) Blood Pressure (units (unknown) date) 105/73 unknown) (unknown) (no (unknown) (unknown) Blood Pressure (units (unknown) date) 106/73 77/50 L unknown) (unknown) (no (unknown) (unknown) Blood Pressure (units (unknown) date) 107/72 unknown) (unknown) (no (unknown) (unknown) Blood Pressure (units (unknown) date) 128/71 unknown) (unknown) (no (unknown) (unknown) Blood Type O (units (u nknown) date) Positive unknown) (unknown) (no (unknown) (unknown) Blood Type (units (unk nown) date) unknown) (unknown) (no (unknown) (unknown) Bones and chest (units (unknown) date) wall:? No suspicious unknown) bony lesions.? Overlying soft tissues (unknown) (no (unknown) (unknown) Calcium (8.4-10.2) (units (unknown) date) mg/dL unknown) (unknown) (no (unknown) (unknown) Calcium 8.0 L (units ( unknown) date) (8.4-10.2) mg/dL unknown) (unknown) (no (unknown) (unknown) Carbon Dioxide (units (unknown) date) (22-32) mmol/L unknown) (unknown) (no (unknown) (unknown) Carbon Dioxide 24 (units (unknown) date) (22-32) mmol/L unknown) (unknown) (no (unknown) (unknown) Cardiac: (units (unkno wn) date) Tachycardic, without unknown) murmurs, no bruits (unknown) (no (unknown) (unknown) Care is reviewed (units (unknown) date) with the unknown) hospitalist. With appropriate sedation blood pressure (unknown) (no (unknown) (unknown) Central Line Lumen (units (unknown) date) Inserted: triple unknown) (unknown) (no (unknown) (unknown) Central Line (units (u nknown) date) Placement unknown) (unknown) (no (unknown) (unknown) Central Line Prep: (units (unknown) date) Chlorhexidine scrub unknown) and sterile drapes applied (unknown) (no (unknown) (unknown) Chest x-ray: (units (u nknown) date) unknown) (unknown) (no (unknown) (unknown) Chief complaint: (units (unknown) date) Allergic Reaction unknown) (unknown) (no (unknown) (unknown) Chlamy pneumoniae (units (unknown) date) PCR (Not Detect) unknown) (unknown) (no (unknown) (unknown) Chlamy pneumoniae (units (unknown) date) PCR Not detected unknown) (Not Detect) (unknown) (no (unknown) (unknown) Chlorhexidine (units ( unknown) date) Gluconate unknown) (Chlorhexidine Gluconate 15 Ml Cup) 15 ml PO Q6HR KIRIT (unknown) (no (unknown) (unknown) Chloride (98-107) (units (unknown) date) mmol/L unknown) (unknown) (no (unknown) (unknown) Chloride 106 (units (u nknown) date) (98-107) mmol/L unknown) (unknown) (no (unknown) (unknown) Chronic abdominal (units (unknown) date) pain unknown) (unknown) (no (unknown) (unknown) Clinical (units (unkno wn) date) Impression: unknown) (unknown) (no (unknown) (unknown) Complete Blood (units (unknown) date) Count AUTO DIFF Stat unknown) (unknown) (no (unknown) (unknown) Comprehensive (units ( unknown) date) Metabolic Panel Stat unknown) (unknown) (no (unknown) (unknown) Coronavirus 229E (units (unknown) date) (PCR) (Not Detect) unknown) (unknown) (no (unknown) (unknown) Coronavirus 229E (units (unknown) date) (PCR) Not detected unknown) (Not Detect) (unknown) (no (unknown) (unknown) Coronavirus HKU1 (units (unknown) date) (PCR) (Not Detect) unknown) (unknown) (no (unknown) (unknown) Coronavirus HKU1 (units (unknown) date) (PCR) Not detected unknown) (Not Detect) (unknown) (no (unknown) (unknown) Coronavirus NL63 (units (unknown) date) (PCR) (Not Detect) unknown) (unknown) (no (unknown) (unknown) Coronavirus NL63 (units (unknown) date) (PCR) Not detected unknown) (Not Detect) (unknown) (no (unknown) (unknown) Coronavirus OC43 (units (unknown) date) (PCR) (Not Detect) unknown) (unknown) (no (unknown) (unknown) Coronavirus OC43 (units (unknown) date) (PCR) Not detected unknown) (Not Detect) (unknown) (no (unknown) (unknown) Course (units (unkno wn) date) unknown) (unknown) (no (unknown) (unknown) Creatinine (units (unk nown) date) (0.52-1.04) mg/dL unknown) (unknown) (no (unknown) (unknown) Creatinine 0.72 (units (unknown) date) (0.52-1.04) mg/dL unknown) (unknown) (no (unknown) (unknown) Critical Care Time (units (unknown) date) unknown) (unknown) (no (unknown) (unknown) Critical Care Time: (unit s (unknown) date) Yes unknown) (unknown) (no (unknown) (unknown) Critical care time (units (unknown) date) is separate from unknown) other billable procedures. There is a high (unknown) (no (unknown) (unknown) Cyclic vomiting (units (unknown) date) syndrome unknown) (unknown) (no (unknown) (unknown) : 1975 (units (unknown) date) Acct:[id number] unknown) (unknown) (no (unknown) (unknown) Date of Service: (units (unknown) date) 07/05/22 unknown) (unknown) (no (unknown) (unknown) Daughter (units (unkno wn) date) Angio-edema unknown) (unknown) (no (unknown) (unknown) Departure (units (unkn own) date) unknown) (unknown) (no (unknown) (unknown) Dexamethasone (units ( unknown) date) (Dexamethasone 4 unknown) Mg/Ml Vial) 4 mg IV Q6HR KIRIT (unknown) (no (unknown) (unknown) Dextrose (Dextrose (units (unknown) date) 50 % In Water 25 unknown) Gm/50 Ml Syringe) 25 gm IV PRN PRN (unknown) (no (unknown) (unknown) Dictated by: Star (unit s (unknown) date) Purnima Ruiz M.D. on unknown) 07/05/2022 at 21:20 ? ? (unknown) (no (unknown) (unknown) Diltiazem HCl (units ( unknown) date) (Diltiazem 5 Mg/Ml unknown) Sdv) 20 mg IV NOW ONE (unknown) (no (unknown) (unknown) Diphenhydramine HCl (unit s (unknown) date) (Diphenhydramine 50 unknown) Mg/Ml Vial) 50 mg IM NOW ONE (unknown) (no (unknown) (unknown) Diphenhydramine HCl (unit s (unknown) date) (Diphenhydramine 50 unknown) Mg/Ml Vial) 50 mg IV NOW ONE (unknown) (no (unknown) (unknown) Diphenhydramine HCl (unit s (unknown) date) (Diphenhydramine 50 unknown) Mg/Ml Vial) 50 mg IV Q6HR KIRIT (unknown) (no (unknown) (unknown) Discharge Plan (units (unknown) date) unknown) (unknown) (no (unknown) (unknown) Discontinued (units (u nknown) date) Medications unknown) (unknown) (no (unknown) (unknown) Documented By: DKB (units (unknown) date) unknown) (unknown) (no (unknown) (unknown) Documented By: KH (units (unknown) date) unknown) (unknown) (no (unknown) (unknown) Documented By: KM (units (unknown) date) unknown) (unknown) (no (unknown) (unknown) Documented By: SMS (units (unknown) date) unknown) (unknown) (no (unknown) (unknown) ECG Data (units (unkno wn) date) unknown) (unknown) (no (unknown) (unknown) ED Orders (units (unkn own) date) unknown) (unknown) (no (unknown) (unknown) EKG-12 Lead Routine (unit s (unknown) date) unknown) (unknown) (no (unknown) (unknown) ER Physician: (units ( unknown) date) Leslie Torres MD unknown) (unknown) (no (unknown) (unknown) ET Tube Size: 7 (units (unknown) date) unknown) (unknown) (no (unknown) (unknown) ET Tube Uncuffed: (units (unknown) date) No unknown) (unknown) (no (unknown) (unknown) Emergency Report (units (unknown) date) unknown) (unknown) (no (unknown) (unknown) Encounter type: (units (unknown) date) initial encounter unknown) Qualified Code(s): T78.2XXA - Anaphylactic (unknown) (no (unknown) (unknown) Encounter type: (units (unknown) date) initial encounter unknown) Qualified Code(s): T78.3XXA - Angioneurotic (unknown) (no (unknown) (unknown) Enoxaparin Sodium (units (unknown) date) (Enoxaparin 40 unknown) Mg/0.4 Ml Syringe) 40 mg SUBCUT DAILY KIRIT (unknown) (no (unknown) (unknown) Entero/Rhino (PCR) (units (unknown) date) (Not Detect) unknown) (unknown) (no (unknown) (unknown) Entero/Rhino (PCR) (units (unknown) date) Not detected (Not unknown) Detect) (unknown) (no (unknown) (unknown) Eos # (Auto) (units (u nknown) date) (0-450) /uL unknown) (unknown) (no (unknown) (unknown) Eos # (Auto) 0 (units (unknown) date) (0-450) /uL unknown) (unknown) (no (unknown) (unknown) Eos % (Auto) (2-4) (units (unknown) date) % unknown) (unknown) (no (unknown) (unknown) Eos % (Auto) 0.1 L (units (unknown) date) (2-4) % unknown) (unknown) (no (unknown) (unknown) Epinephrine HCl (units (unknown) date) (Epinephrine 1 unknown) Mg/Ml) 0.5 mg IM NOW ONE (unknown) (no (unknown) (unknown) Epinephrine HCl 4 (units (unknown) date) mg/ Dextrose 250 mls unknown) @ 3.75 mls/hr IV TITRATE KIRIT; Protocol (unknown) (no (unknown) (unknown) Esterase (units (unkno wn) date) unknown) (unknown) (no (unknown) (unknown) Estimated GFR > 60 (units (unknown) date) (>60) mL/min unknown) (unknown) (no (unknown) (unknown) Estimated GFR (>60) (unit s (unknown) date) mL/min unknown) (unknown) (no (unknown) (unknown) Etomidate (units (unkn own) date) (Etomidate 2 Mg/Ml unknown) 10 Ml Vial) 20 mg IV NOW ONE (unknown) (no (unknown) (unknown) Exam (units (unkno wn) date) unknown) (unknown) (no (unknown) (unknown) Extremities: No (units (unknown) date) trauma, poor unknown) perfusion upper and lower extremities (unknown) (no (unknown) (unknown) FFP [Fresh Frozen (units (unknown) date) Plasma] Stat unknown) (unknown) (no (unknown) (unknown) FINDINGS:? (units (unk nown) date) unknown) (unknown) (no (unknown) (unknown) Family History (units (unknown) date) (Reviewed 07/06/22 @ unknown) 06:11 by Leslie Torres MD) (unknown) (no (unknown) (unknown) Family history of (units (unknown) date) angioedema unknown) (unknown) (no (unknown) (unknown) Famotidine (units (unk nown) date) (Famotidine 20 Mg/2 unknown) Ml Vial) 40 mg IV DAILY ONE (unknown) (no (unknown) (unknown) Father Hypertension (unit s (unknown) date) unknown) (unknown) (no (unknown) (unknown) Fentanyl 1,000 mcg/ (unit s (unknown) date) Dextrose 250 mls @ unknown) 11.113 mls/hr IV TITRATE KIRIT; Protocol (unknown) (no (unknown) (unknown) Full and (units (unkno wn) date) symmetrical air unknown) movement (unknown) (no (unknown) (unknown) General (units (unkno wn) date) unknown) (unknown) (no (unknown) (unknown) General: Acutely (units (unknown) date) ill-appearing, unknown) tongue is swollen with multiple bite weller (unknown) (no (unknown) (unknown) Given the concern (units (unknown) date) for difficult airway unknown) multiple backup options were immediately (unknown) (no (unknown) (unknown) Globulin (1.7-4.1) (units (unknown) date) g/dL unknown) (unknown) (no (unknown) (unknown) Globulin 3.5 (units (u nknown) date) (1.7-4.1) g/dL unknown) (unknown) (no (unknown) (unknown) Glucose (70-100) (units (unknown) date) mg/dL unknown) (unknown) (no (unknown) (unknown) Glucose 296 H (units ( unknown) date) (70-100) mg/dL unknown) (unknown) (no (unknown) (unknown) HEENT: (units (unkno wn) date) Significantly unknown) swollen tongue, moist mucous membranes, jaw is tightly (unknown) (no (unknown) (unknown) HPI - Allergic (units (unknown) date) Reaction unknown) (unknown) (no (unknown) (unknown) HPI narrative: (units (unknown) date) unknown) (unknown) (no (unknown) (unknown) Hct (36-46) % (units ( unknown) date) unknown) (unknown) (no (unknown) (unknown) Hct 37.3 (36-46) % (units (unknown) date) unknown) (unknown) (no (unknown) (unknown) Hgb (12.0-16.0) (units (unknown) date) g/dL unknown) (unknown) (no (unknown) (unknown) Hgb 12.3 (units (unkno wn) date) (12.0-16.0) g/dL unknown) (unknown) (no (unknown) (unknown) History of Present (units (unknown) date) Illness unknown) (unknown) (no (unknown) (unknown) Human Metapneumovir (unit s (unknown) date) PCR (Not Detect) unknown) (unknown) (no (unknown) (unknown) Human Metapneumovir (unit s (unknown) date) PCR Not detected unknown) (Not Detect) (unknown) (no (unknown) (unknown) Hx of appendectomy (units (unknown) date) unknown) (unknown) (no (unknown) (unknown) Hx of (units (unkno wn) date) cholecystectomy unknown) (unknown) (no (unknown) (unknown) IM Benadryl. After (units (unknown) date) IV access was unknown) obtained she is given fluids, 125 mg of Solu (unknown) (no (unknown) (unknown) IMPRESSION:? (units (u nknown) date) unknown) (unknown) (no (unknown) (unknown) IV access is (units (u nknown) date) attempted and she is unknown) 2 peripherally clamped down. An 18 gauge is (unknown) (no (unknown) (unknown) Imaging Data (units (u nknown) date) unknown) (unknown) (no (unknown) (unknown) Influenza Type A (units (unknown) date) (PCR) (Not Detect) unknown) (unknown) (no (unknown) (unknown) Influenza Type A (units (unknown) date) (PCR) Not detected unknown) (Not Detect) (unknown) (no (unknown) (unknown) Influenza Type B (units (unknown) date) (PCR) (Not Detect) unknown) (unknown) (no (unknown) (unknown) Influenza Type B (units (unknown) date) (PCR) Not detected unknown) (Not Detect) (unknown) (no (unknown) (unknown) Infusion: 07/05/22 (units (unknown) date) 23:53 Dose: 6 mg/hr, unknown) 30 mls/hr (unknown) (no (unknown) (unknown) Infusion: 07/06/22 (units (unknown) date) 01:37 Dose: 1.44 unknown) mg/hr, 7.2 mls/hr (unknown) (no (unknown) (unknown) Initial Vital Signs (unit s (unknown) date) unknown) (unknown) (no (unknown) (unknown) Initial Vital (units ( unknown) date) Signs: unknown) (unknown) (no (unknown) (unknown) Insulin Human (units ( unknown) date) Lispro (Insulin unknown) Lispro 100 Unit/Ml 3ml Vial) 0 unit SUBCUT ACHS (unknown) (no (unknown) (unknown) Interpretation: (units (unknown) date) unknown) (unknown) (no (unknown) (unknown) Intubation (units (unk nown) date) unknown) (unknown) (no (unknown) (unknown) [facility] (units (unknown) date) [address] [place] [address] unknown) [place] [address] (unknown) (no (unknown) (unknown) Lab Data (units (unkno wn) date) unknown) (unknown) (no (unknown) (unknown) Lab Results (units (un known) date) unknown) (unknown) (no (unknown) (unknown) Labs eventually (units (unknown) date) return positive for unknown) adenovirus with chemistry panel and CBC (unknown) (no (unknown) (unknown) Labs: (units (unkno wn) date) unknown) (unknown) (no (unknown) (unknown) Laryngoscope: fiber (unit s (unknown) date) optic video scope unknown) (unknown) (no (unknown) (unknown) Last Admin: (units (un known) date) 07/05/22 18:38 Dose: unknown) 125 mg (unknown) (no (unknown) (unknown) Last Admin: (units (un known) date) 07/05/22 18:38 Dose: unknown) 40 mg (unknown) (no (unknown) (unknown) Last Admin: (units (un known) date) 07/05/22 18:39 Dose: unknown) 0.5 mg (unknown) (no (unknown) (unknown) Last Admin: (units (un known) date) 07/05/22 18:40 Dose: unknown) 50 mg (unknown) (no (unknown) (unknown) Last Admin: (units (un known) date) 07/05/22 18:43 Dose: unknown) Not Given (unknown) (no (unknown) (unknown) Last Admin: (units (un known) date) 07/05/22 18:53 Dose: unknown) 0.5 mg (unknown) (no (unknown) (unknown) Last Admin: (units (un known) date) 07/05/22 20:19 Dose: unknown) 20 mg (unknown) (no (unknown) (unknown) Last Admin: (units (un known) date) 07/05/22 20:20 Dose: unknown) 120 mg (unknown) (no (unknown) (unknown) Last Admin: (units (un known) date) 07/05/22 20:30 Dose: unknown) 100 mg (unknown) (no (unknown) (unknown) Last Admin: (units (un known) date) 07/05/22 21:07 Dose: unknown) 4 mg (unknown) (no (unknown) (unknown) Last Admin: (units (un known) date) 07/05/22 21:09 Dose: unknown) 20 mg (unknown) (no (unknown) (unknown) Last Admin: (units (un known) date) 07/05/22 21:30 Dose: unknown) Not Given (unknown) (no (unknown) (unknown) Last Admin: (units (un known) date) 07/05/22 21:57 Dose: unknown) Not Given (unknown) (no (unknown) (unknown) Last Admin: (units (un known) date) 07/05/22 22:50 Dose: unknown) 80 mg (unknown) (no (unknown) (unknown) Last Admin: (units (un known) date) 07/06/22 01:36 Dose: unknown) 15 ml (unknown) (no (unknown) (unknown) Last Admin: (units (un known) date) 07/06/22 01:36 Dose: unknown) 4 mg (unknown) (no (unknown) (unknown) Last Admin: (units (un known) date) 07/06/22 01:36 Dose: unknown) 50 mg (unknown) (no (unknown) (unknown) Last Infusion: (units (unknown) date) 07/05/22 19:24 Dose: unknown) 0 mls/hr (unknown) (no (unknown) (unknown) Last Infusion: (units (unknown) date) 07/05/22 19:40 Dose: unknown) 0 mls/hr (unknown) (no (unknown) (unknown) Last Infusion: (units (unknown) date) 07/05/22 21:28 Dose: unknown) 0 mls/hr (unknown) (no (unknown) (unknown) Last Infusion: (units (unknown) date) 07/06/22 02:04 Dose: unknown) 2 mg/hr, 10 mls/hr (unknown) (no (unknown) (unknown) Last Titration: (units (unknown) date) 07/06/22 02:19 Dose: unknown) 1.5 mcg/kg/hr, 23.814 mls/hr (unknown) (no (unknown) (unknown) Last Titration: (units (unknown) date) 07/06/22 05:19 Dose: unknown) 0 mcg/kg/min, 0 mls/hr (unknown) (no (unknown) (unknown) Last Titration: (units (unknown) date) 07/06/22 05:19 Dose: unknown) 3 mcg/min, 11.25 mls/hr (unknown) (no (unknown) (unknown) Lorazepam (units (unkn own) date) (Lorazepam 2 Mg/Ml unknown) Inj) 0.5 mg IV NOW ONE (unknown) (no (unknown) (unknown) Lungs and pleura:? (units (unknown) date) There is pulmonary unknown) vascular prominence suggestive of mild (unknown) (no (unknown) (unknown) Lymph # (Auto) (units (unknown) date) (4320-6848) /uL unknown) (unknown) (no (unknown) (unknown) Lymph # (Auto) 400 (units (unknown) date) L (1101-3894) /uL unknown) (unknown) (no (unknown) (unknown) Lymph % (Auto) (units (unknown) date) (25-40) % unknown) (unknown) (no (unknown) (unknown) Lymph % (Auto) 3.9 (units (unknown) date) L (25-40) % unknown) (unknown) (no (unknown) (unknown) M. pneumoniae (PCR) (unit s (unknown) date) (Not Detect) unknown) (unknown) (no (unknown) (unknown) M. pneumoniae (PCR) (unit s (unknown) date) Not detected (Not unknown) Detect) (unknown) (no (unknown) (unknown) MCH (26-34) PG (units (unknown) date) unknown) (unknown) (no (unknown) (unknown) MCH 31.3 (26-34) PG (unit s (unknown) date) unknown) (unknown) (no (unknown) (unknown) MCHC (30-36) % (units (unknown) date) unknown) (unknown) (no (unknown) (unknown) MCHC 33.0 (30-36) % (unit s (unknown) date) unknown) (unknown) (no (unknown) (unknown) MCV (80-100) fL (units (unknown) date) unknown) (unknown) (no (unknown) (unknown) MCV 94.9 (80-100) (units (unknown) date) fL unknown) (unknown) (no (unknown) (unknown) MD Prep: mask, gown (unit s (unknown) date) and gloves unknown) (unknown) (no (unknown) (unknown) MDM - Allergic (units (unknown) date) Reaction unknown) (unknown) (no (unknown) (unknown) MDM Narrative (units ( unknown) date) unknown) (unknown) (no (unknown) (unknown) 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 (unknown) (no (unknown) (unknown) Marijuana use, (units (unknown) date) continuous unknown) (unknown) (no (unknown) (unknown) Mediastinum:? (units ( unknown) date) Mediastinal contours unknown) appear normal.? Heart size is normal.? (unknown) (no (unknown) (unknown) Medical History (units (unknown) date) (Reviewed 07/06/22 @ unknown) 06:11 by Leslie Torres MD) (unknown) (no (unknown) (unknown) Medical decision (units (unknown) date) making narrative: unknown) (unknown) (no (unknown) (unknown) Medication (units (unk nown) date) Instructions unknown) Recorded (unknown) (no (unknown) (unknown) Medrol, IV (units (unk nown) date) famotidine and 1 g unknown) of TXA for presumed angioedema. FFP is ordered (unknown) (no (unknown) (unknown) Methylprednisolone (units (unknown) date) (Methylprednisolone unknown) 125 Mg/2 Ml Vial) 125 mg IV NOW ONE (unknown) (no (unknown) (unknown) Mg Given: 120 (units ( unknown) date) unknown) (unknown) (no (unknown) (unknown) Mg Given: 20 (units (u nknown) date) unknown) (unknown) (no (unknown) (unknown) Midazolam HCl (units ( unknown) date) (Midazolam 5 Mg/Ml unknown) Vial) 4 mg IV NOW ONE (unknown) (no (unknown) (unknown) Midazolam HCl 50 (units (unknown) date) mg/ Dextrose 250 mls unknown) @ 25 mls/hr IV TITRATE KIRIT; Protocol (unknown) (no (unknown) (unknown) Mode of arrival: (units (unknown) date) Ambulatory unknown) (unknown) (no (unknown) (unknown) [place] # (Auto) (units ( unknown) date) (0-900) /uL unknown) (unknown) (no (unknown) (unknown) [place] # (Auto) 100 (units (unknown) date) (0-900) /uL unknown) (unknown) (no (unknown) (unknown) [place] % (Auto) (units ( unknown) date) (3-14) % unknown) (unknown) (no (unknown) (unknown) [place] % (Auto) 1.1 L (unit s (unknown) date) (3-14) % unknown) (unknown) (no (unknown) (unknown) Mother Diabetes (units (unknown) date) mellitus unknown) (unknown) (no (unknown) (unknown) Narrative: (units (unk nown) date) unknown) (unknown) (no (unknown) (unknown) Neck: No JVD, (units ( unknown) date) supple unknown) (unknown) (no (unknown) (unknown) Neurologic: Grossly (unit s (unknown) date) neurologically unknown) intact with no obvious asymmetries or (unknown) (no (unknown) (unknown) Neut # (Auto) (units ( unknown) date) (1778-3802) /uL unknown) (unknown) (no (unknown) (unknown) Neut # (Auto) 16522 (unit s (unknown) date) H (1885-2331) /uL unknown) (unknown) (no (unknown) (unknown) Neut % (Auto) (units ( unknown) date) (50-75) % unknown) (unknown) (no (unknown) (unknown) Neut % (Auto) 94.4 (units (unknown) date) H (50-75) % unknown) (unknown) (no (unknown) (unknown) No acute ischemic (units (unknown) date) changes unknown) (unknown) (no (unknown) (unknown) Normal intervals, (units (unknown) date) normal axis unknown) (unknown) (no (unknown) (unknown) Ordered: (units (unkno wn) date) unknown) (unknown) (no (unknown) (unknown) Orders (units (unkno wn) date) unknown) (unknown) (no (unknown) (unknown) Other Colon cancer (units (unknown) date) unknown) (unknown) (no (unknown) (unknown) Oxygen Delivery (units (unknown) date) Method 07/05/22 unknown) 18:19 (unknown) (no (unknown) (unknown) PRN Reason: (units (un known) date) Hypoglycemia unknown) (unknown) (no (unknown) (unknown) PRN Reason: (units (un known) date) Sedation unknown) (unknown) (no (unknown) (unknown) PT STATES (units (unkn own) date) unknown) (unknown) (no (unknown) (unknown) Pancreatitis (units (u nknown) date) unknown) (unknown) (no (unknown) (unknown) Parainfluenza 1 (units (unknown) date) (PCR) (Not Detect) unknown) (unknown) (no (unknown) (unknown) Parainfluenza 1 (units (unknown) date) (PCR) Not detected unknown) (Not Detect) (unknown) (no (unknown) (unknown) Parainfluenza 2 (units (unknown) date) (PCR) (Not Detect) unknown) (unknown) (no (unknown) (unknown) Parainfluenza 2 (units (unknown) date) (PCR) Not detected unknown) (Not Detect) (unknown) (no (unknown) (unknown) Parainfluenza 3 (units (unknown) date) (PCR) (Not Detect) unknown) (unknown) (no (unknown) (unknown) Parainfluenza 3 (units (unknown) date) (PCR) Not detected unknown) (Not Detect) (unknown) (no (unknown) (unknown) Parainfluenza 4 (units (unknown) date) (PCR) (Not Detect) unknown) (unknown) (no (unknown) (unknown) Parainfluenza 4 (units (unknown) date) (PCR) Not detected unknown) (Not Detect) (unknown) (no (unknown) (unknown) Patient (units (unkno wn) date) Disposition: unknown) Admitted As Inpatient (unknown) (no (unknown) (unknown) Patient History (units (unknown) date) unknown) (unknown) (no (unknown) (unknown) Patient Placed on (units (unknown) date) Monitor/Pulse Ox: unknown) Yes (unknown) (no (unknown) (unknown) Patient Tolerated (units (unknown) date) Procedure: Well unknown) (unknown) (no (unknown) (unknown) Patient is admitted (unit s (unknown) date) to the intensive unknown) care unit for further monitoring and (unknown) (no (unknown) (unknown) Patient responded (units (unknown) date) quite well to the unknown) epinephrine with her tongue returning almost (unknown) (no (unknown) (unknown) Patient: (units (unkno wn) date) Dameon Caputo MR#: unknown) [id number] (unknown) (no (unknown) (unknown) Plt Count (150-400) (unit s (unknown) date) X103/uL unknown) (unknown) (no (unknown) (unknown) Plt Count 238 (units ( unknown) date) (150-400) X103/uL unknown) (unknown) (no (unknown) (unknown) Point of Care (units ( unknown) date) Testing unknown) (unknown) (no (unknown) (unknown) Post Procedure (units (unknown) date) X-Ray: tip of unknown) catheter in good position and no pneumothorax (unknown) (no (unknown) (unknown) Post Procedure: (units (unknown) date) sutured in place, unknown) good blood return, all ports aspirated, (unknown) (no (unknown) (unknown) Potassium (3.4-5.1) (unit s (unknown) date) mmol/L unknown) (unknown) (no (unknown) (unknown) Potassium 3.5 (units ( unknown) date) (3.4-5.1) mmol/L unknown) (unknown) (no (unknown) (unknown) Test (units (unknown) date) Results Negative unknown) (unknown) (no (unknown) (unknown) Previous Rx's (units ( unknown) date) unknown) (unknown) (no (unknown) (unknown) Procedures (units (unk nown) date) unknown) (unknown) (no (unknown) (unknown) Propofol (Propofol (units (unknown) date) 200 Mg/20 Ml Vial) unknown) 80 mg IV Q10MIN PRN (unknown) (no (unknown) (unknown) Propofol (Propofol) (unit s (unknown) date) 1,000 mg in 100 mls unknown) @ 1.905 mls/hr IV TITRATE KIRIT; Protocol (unknown) (no (unknown) (unknown) Psych: Cooperative, (unit s (unknown) date) clearly frightened unknown) and concerned that she is having (unknown) (no (unknown) (unknown) Pulse Oximetry 85 L (unit s (unknown) date) unknown) (unknown) (no (unknown) (unknown) Pulse Oximetry 95 (units (unknown) date) 96 unknown) (unknown) (no (unknown) (unknown) Pulse Oximetry 95 (units (unknown) date) unknown) (unknown) (no (unknown) (unknown) Pulse Oximetry 96 (units (unknown) date) unknown) (unknown) (no (unknown) (unknown) Pulse Oximetry 98 (units (unknown) date) 07/05/22 18:19 unknown) (unknown) (no (unknown) (unknown) Pulse Oximetry 98 (units (unknown) date) 99 unknown) (unknown) (no (unknown) (unknown) Pulse Rate 104 H (units (unknown) date) unknown) (unknown) (no (unknown) (unknown) Pulse Rate 105 H (units (unknown) date) unknown) (unknown) (no (unknown) (unknown) Pulse Rate 115 H (units (unknown) date) unknown) (unknown) (no (unknown) (unknown) Pulse Rate 95 H 94 (units (unknown) date) H unknown) (unknown) (no (unknown) (unknown) Pulse Rate 96 H (units (unknown) date) 07/05/22 18:19 unknown) (unknown) (no (unknown) (unknown) Pulse Rate 98 H 97 (units (unknown) date) H unknown) (unknown) (no (unknown) (unknown) Qualifiers: (units (un known) date) unknown) (unknown) (no (unknown) (unknown) RBC (4.0-5.2) (units ( unknown) date) X106/uL unknown) (unknown) (no (unknown) (unknown) RBC 3.93 L (units (unk nown) date) (4.0-5.2) X106/uL unknown) (unknown) (no (unknown) (unknown) RDW (11.6-14.8) % (units (unknown) date) unknown) (unknown) (no (unknown) (unknown) RDW 13.2 (units (unkno wn) date) (11.6-14.8) % unknown) (unknown) (no (unknown) (unknown) RSV (PCR) (Not (units (unknown) date) Detect) unknown) (unknown) (no (unknown) (unknown) RSV (PCR) Not (units ( unknown) date) detected (Not unknown) Detect) (unknown) (no (unknown) (unknown) Radiologist's (units ( unknown) date) Impression: unknown) (unknown) (no (unknown) (unknown) Related Data (units (u nknown) date) unknown) (unknown) (no (unknown) (unknown) Remainder of (units (u nknown) date) complete review of unknown) systems is otherwise unremarkable except for (unknown) (no (unknown) (unknown) Respiratory Rate 18 (unit s (unknown) date) 07/05/22 18:19 unknown) (unknown) (no (unknown) (unknown) Respiratory Rate 22 (unit s (unknown) date) unknown) (unknown) (no (unknown) (unknown) Respiratory Rate 24 (unit s (unknown) date) unknown) (unknown) (no (unknown) (unknown) Respiratory Rate 25 (unit s (unknown) date) H 25 H unknown) (unknown) (no (unknown) (unknown) Respiratory Rate 26 (unit s (unknown) date) H 25 H unknown) (unknown) (no (unknown) (unknown) Respiratory Rate 52 (unit s (unknown) date) H unknown) (unknown) (no (unknown) (unknown) Respiratory: Lungs (units (unknown) date) are clear to unknown) auscultation, no wheezing no rales no rhonchi. (unknown) (no (unknown) (unknown) Result diagrams: (units (unknown) date) unknown) (unknown) (no (unknown) (unknown) Review of Systems (units (unknown) date) unknown) (unknown) (no (unknown) (unknown) Right IJ: (units (unkn own) date) unknown) (unknown) (no (unknown) (unknown) Rocuronium [place] (units (unknown) date) (Rocuronium 50 Mg/5 unknown) Ml Inj) 100 mg IV NOW ONE (unknown) (no (unknown) (unknown) SARS-CoV-2 (PCR) (units (unknown) date) (Not Detecte) unknown) (unknown) (no (unknown) (unknown) SARS-CoV-2 (PCR) (units (unknown) date) Not detected (Not unknown) Detecte) (unknown) (no (unknown) (unknown) KIRIT; Protocol (units ( unknown) date) unknown) (unknown) (no (unknown) (unknown) Signed By: (units (unk nown) date) unknown) (unknown) (no (unknown) (unknown) Sinus tachycardia (units (unknown) date) at 1:36 a.m. unknown) (unknown) (no (unknown) (unknown) Skin: Warm and dry, (unit s (unknown) date) no rashes, poor unknown) peripheral perfusion (unknown) (no (unknown) (unknown) Smoking Status: (units (unknown) date) Current every day unknown) smoker (unknown) (no (unknown) (unknown) Social History (units (unknown) date) (Reviewed 07/06/22 @ unknown) 06:11 by Leslie Torres MD) (unknown) (no (unknown) (unknown) Sodium (137-145) (units (unknown) date) mmol/L unknown) (unknown) (no (unknown) (unknown) Sodium 143 (units (unk nown) date) (137-145) mmol/L unknown) (unknown) (no (unknown) (unknown) Sodium Chloride (units (unknown) date) (Normal Saline 0.9%) unknown) 1,000 mls @ 1,000 mls/hr IV BOLUS ONE (unknown) (no (unknown) (unknown) Source: patient (units (unknown) date) unknown) (unknown) (no (unknown) (unknown) Stated complaint: (units (unknown) date) Keeps biting tongue, unknown) Jaw clenched (unknown) (no (unknown) (unknown) Stop: 07/05/22 (units (unknown) date) 18:25 unknown) (unknown) (no (unknown) (unknown) Stop: 07/05/22 (units (unknown) date) 18:26 unknown) (unknown) (no (unknown) (unknown) Stop: 07/05/22 (units (unknown) date) 18:29 unknown) (unknown) (no (unknown) (unknown) Stop: 07/05/22 (units (unknown) date) 18:48 unknown) (unknown) (no (unknown) (unknown) Stop: 07/05/22 (units (unknown) date) 19:05 unknown) (unknown) (no (unknown) (unknown) Stop: 07/05/22 (units (unknown) date) 19:25 unknown) (unknown) (no (unknown) (unknown) Stop: 07/05/22 (units (unknown) date) 19:35 unknown) (unknown) (no (unknown) (unknown) Stop: 07/05/22 (units (unknown) date) 20:20 unknown) (unknown) (no (unknown) (unknown) Stop: 07/05/22 (units (unknown) date) 20:21 unknown) (unknown) (no (unknown) (unknown) Stop: 07/05/22 (units (unknown) date) 21:03 unknown) (unknown) (no (unknown) (unknown) Stop: 07/05/22 (units (unknown) date) 21:49 unknown) (unknown) (no (unknown) (unknown) Substance Use Type: (unit s (unknown) date) former substance unknown) user, marijuana, crack/cocaine and (unknown) (no (unknown) (unknown) Succinylcholine (units (unknown) date) Chloride unknown) (Succinylcholine 200 Mg/10 Ml Vial) 120 mg IV NOW ONE (unknown) (no (unknown) (unknown) Surgical History (units (unknown) date) (Reviewed 07/06/22 @ unknown) 06:11 by Leslie Torres MD) (unknown) (no (unknown) (unknown) Surgical changes (units (unknown) date) and devices:? There unknown) is a new endotracheal tube with the tip (unknown) (no (unknown) (unknown) TAKE WV (units (unkno wn) date) unknown) (unknown) (no (unknown) (unknown) TO IV SITE (units (unk nown) date) unknown) (unknown) (no (unknown) (unknown) This critical care (units (unknown) date) time includes unknown) consultation with family and other consulting (unknown) (no (unknown) (unknown) Time Out Performed: (unit s (unknown) date) Yes unknown) (unknown) (no (unknown) (unknown) Time Seen by (units (u nknown) date) Provider: 07/05/22 unknown) 18:10 (unknown) (no (unknown) (unknown) Time of Intubation: (unit s (unknown) date) 19:00 unknown) (unknown) (no (unknown) (unknown) Time of procedure: (units (unknown) date) 19:00 unknown) (unknown) (no (unknown) (unknown) Time out performed: (unit s (unknown) date) Yes unknown) (unknown) (no (unknown) (unknown) Titration: 07/05/22 (unit s (unknown) date) 20:35 Dose: 20 unknown) mcg/kg/min, 7.62 mls/hr (unknown) (no (unknown) (unknown) Titration: 07/05/22 (unit s (unknown) date) 20:45 Dose: 35 unknown) mcg/kg/min, 13.336 mls/hr (unknown) (no (unknown) (unknown) Titration: 07/05/22 (unit s (unknown) date) 21:40 Dose: 1.5 unknown) mcg/kg/hr, 23.814 mls/hr (unknown) (no (unknown) (unknown) Titration: 07/05/22 (unit s (unknown) date) 21:50 Dose: 2 unknown) mcg/kg/hr, 31.752 mls/hr (unknown) (no (unknown) (unknown) Titration: 07/05/22 (unit s (unknown) date) 23:43 Dose: 30 unknown) mcg/kg/min, 11.431 mls/hr (unknown) (no (unknown) (unknown) Titration: 07/05/22 (unit s (unknown) date) 23:52 Dose: 25 unknown) mcg/kg/min, 9.525 mls/hr (unknown) (no (unknown) (unknown) Titration: 07/06/22 (unit s (unknown) date) 01:00 Dose: 1 unknown) mcg/kg/hr, 15.876 mls/hr (unknown) (no (unknown) (unknown) Titration: 07/06/22 (unit s (unknown) date) 01:00 Dose: 10 unknown) mcg/kg/min, 3.81 mls/hr (unknown) (no (unknown) (unknown) Titration: 07/06/22 (unit s (unknown) date) 01:36 Dose: 2 unknown) mcg/min, 7.5 mls/hr (unknown) (no (unknown) (unknown) Titration: 07/06/22 (unit s (unknown) date) 02:19 Dose: 5 unknown) mcg/kg/min, 1.905 mls/hr (unknown) (no (unknown) (unknown) Total Bilirubin (units (unknown) date) (0.2-1.3) mg/dL unknown) (unknown) (no (unknown) (unknown) Total Bilirubin 0.5 (unit s (unknown) date) (0.2-1.3) mg/dL unknown) (unknown) (no (unknown) (unknown) Total Critical Care (unit s (unknown) date) Time: 39 unknown) (unknown) (no (unknown) (unknown) Total Protein (units ( unknown) date) (6.3-8.2) g/dL unknown) (unknown) (no (unknown) (unknown) Total Protein 7.7 (units (unknown) date) (6.3-8.2) g/dL unknown) (unknown) (no (unknown) (unknown) Tranexamic Acid (units (unknown) date) 1,000 mg/ (Sodium unknown) Chloride) 100 mls @ 200 mls/hr IV NOW ONE (unknown) (no (unknown) (unknown) Tube Placement (units ( unknown) date) Confirmation: unknown) Visualized tube passing through cords, Equal breath (unknown) (no (unknown) (unknown) U Benzodiazepines (units (unknown) date) Scrn (Negative) unknown) (unknown) (no (unknown) (unknown) U Benzodiazepines (units (unknown) date) Scrn Negative unknown) (Negative) (unknown) (no (unknown) (unknown) U Marijuana (THC) (units (unknown) date) Screen (Negative) unknown) (unknown) (no (unknown) (unknown) U Marijuana (THC) (units (unknown) date) Screen Positive H unknown) (Negative) (unknown) (no (unknown) (unknown) U Methamphetamines (units (unknown) date) Scrn (Negative) unknown) (unknown) (no (unknown) (unknown) U Methamphetamines (units (unknown) date) Scrn Negative unknown) (Negative) (unknown) (no (unknown) (unknown) U Opiates 300ng/mL (units (unknown) date) cut (Negative) unknown) (unknown) (no (unknown) (unknown) U Opiates 300ng/mL (units (unknown) date) cut Negative unknown) (Negative) (unknown) (no (unknown) (unknown) U Tricyclic (units (un known) date) Antidepress unknown) (Negative) (unknown) (no (unknown) (unknown) U Tricyclic (units (un known) date) Antidepress Negative unknown) (Negative) (unknown) (no (unknown) (unknown) Ultrasound Used for (unit s (unknown) date) Placement: Yes unknown) (unknown) (no (unknown) (unknown) Ur Amphetamines (units (unknown) date) Screen (Negative) unknown) (unknown) (no (unknown) (unknown) Ur Amphetamines (units (unknown) date) Screen Negative unknown) (Negative) (unknown) (no (unknown) (unknown) Ur Barbiturates (units (unknown) date) Screen (Negative) unknown) (unknown) (no (unknown) (unknown) Ur Barbiturates (units (unknown) date) Screen Negative unknown) (Negative) (unknown) (no (unknown) (unknown) Ur Culture (units (unk nown) date) Indicated? Cult not unknown) indicated (unknown) (no (unknown) (unknown) Ur Culture (units (unk nown) date) Indicated? unknown) (unknown) (no (unknown) (unknown) Ur Leukocyte (units (u nknown) date) Esterase (NEGATIVE) unknown) (unknown) (no (unknown) (unknown) Ur Leukocyte (units (u nknown) date) Esterase Negative unknown) (NEGATIVE) (unknown) (no (unknown) (unknown) Ur MDMA Scrn (units (u nknown) date) (Ecstasy) (Negative) unknown) (unknown) (no (unknown) (unknown) Ur MDMA Scrn (units (u nknown) date) (Ecstasy) Negative unknown) (Negative) (unknown) (no (unknown) (unknown) Ur Oxycodone Screen (unit s (unknown) date) (Negative) unknown) (unknown) (no (unknown) (unknown) Ur Oxycodone Screen (unit s (unknown) date) Negative (Negative) unknown) (unknown) (no (unknown) (unknown) Ur Phencyclidine (units (unknown) date) Scrn (Negative) unknown) (unknown) (no (unknown) (unknown) Ur Phencyclidine (units (unknown) date) Scrn Negative unknown) (Negative) (unknown) (no (unknown) (unknown) Ur Specific [place] (unit s (unknown) date) (1.000-1.035) unknown) (unknown) (no (unknown) (unknown) Ur Specific [place] (unit s (unknown) date) 1.010 (1.000-1.035) unknown) (unknown) (no (unknown) (unknown) Ur Squamous Epith (units (unknown) date) Cells (0-5/HPF) unknown) (unknown) (no (unknown) (unknown) Ur Squamous Epith (units (unknown) date) Cells 0-1 /hpf unknown) (0-5/HPF) (unknown) (no (unknown) (unknown) Ur Transition Epith (unit s (unknown) date) Cell (0-5/HPF) unknown) (unknown) (no (unknown) (unknown) Ur Transition Epith (unit s (unknown) date) Cell 0-1/hpf unknown) (0-5/HPF) (unknown) (no (unknown) (unknown) Urine Appearance (units (unknown) date) Clear unknown) (unknown) (no (unknown) (unknown) Urine Appearance (units (unknown) date) unknown) (unknown) (no (unknown) (unknown) Urine Bacteria (units (unknown) date) (None) unknown) (unknown) (no (unknown) (unknown) Urine Bacteria None (unit s (unknown) date) seen (None) unknown) (unknown) (no (unknown) (unknown) Urine Bilirubin (units (unknown) date) (NEGATIVE) unknown) (unknown) (no (unknown) (unknown) Urine Bilirubin (units (unknown) date) Negative (NEGATIVE) unknown) (unknown) (no (unknown) (unknown) Urine Cocaine (units ( unknown) date) Screen (Negative) unknown) (unknown) (no (unknown) (unknown) Urine Cocaine (units ( unknown) date) Screen Negative unknown) (Negative) (unknown) (no (unknown) (unknown) Urine Color Yellow (units (unknown) date) unknown) (unknown) (no (unknown) (unknown) Urine Color (units (un known) date) unknown) (unknown) (no (unknown) (unknown) Urine Dip (units (unkn own) date) unknown) (unknown) (no (unknown) (unknown) Urine Glucose (UA) (units (unknown) date) (Negative) g/dL unknown) (unknown) (no (unknown) (unknown) Urine Glucose (UA) (units (unknown) date) 1+ H (Negative) g/dL unknown) (unknown) (no (unknown) (unknown) Urine Ketones (units ( unknown) date) (NEGATIVE) unknown) (unknown) (no (unknown) (unknown) Urine Ketones (units ( unknown) date) Negative (NEGATIVE) unknown) (unknown) (no (unknown) (unknown) Urine Methadone (units (unknown) date) Screen (Negative) unknown) (unknown) (no (unknown) (unknown) Urine Methadone (units (unknown) date) Screen Negative unknown) (Negative) (unknown) (no (unknown) (unknown) Urine Nitrate (units ( unknown) date) (Negative) unknown) (unknown) (no (unknown) (unknown) Urine Nitrate (units ( unknown) date) Negative (Negative) unknown) (unknown) (no (unknown) (unknown) Urine Occult Blood (units (unknown) date) (Negative) unknown) (unknown) (no (unknown) (unknown) Urine Occult Blood (units (unknown) date) Trace-lysed unknown) (Negative) (unknown) (no (unknown) (unknown) Urine Protein (units ( unknown) date) (Negative) unknown) (unknown) (no (unknown) (unknown) Urine Protein 1+ H (units (unknown) date) (Negative) unknown) (unknown) (no (unknown) (unknown) Urine RBC (0-5/HPF) (unit s (unknown) date) unknown) (unknown) (no (unknown) (unknown) Urine RBC 0-1/hpf (units (unknown) date) (0-5/HPF) unknown) (unknown) (no (unknown) (unknown) Urine Specific (units (unknown) date) [place] 1.020 unknown) (unknown) (no (unknown) (unknown) Urine Urobilinogen (units (unknown) date) (0.2) E.U./dL unknown) (unknown) (no (unknown) (unknown) Urine Urobilinogen (units (unknown) date) 0.2 (0.2) E.U./dL unknown) (unknown) (no (unknown) (unknown) Urine WBC (0-5/HPF) (unit s (unknown) date) unknown) (unknown) (no (unknown) (unknown) Urine WBC None seen (unit s (unknown) date) (0-5/HPF) unknown) (unknown) (no (unknown) (unknown) Urine pH (4.5-8.0) (units (unknown) date) unknown) (unknown) (no (unknown) (unknown) Urine pH 7.0 (units (u nknown) date) (4.5-8.0) unknown) (unknown) (no (unknown) (unknown) Vital Signs - 8 hr (units (unknown) date) unknown) (unknown) (no (unknown) (unknown) Vital Signs (units (un known) date) unknown) (unknown) (no (unknown) (unknown) Vital signs: (units (u nknown) date) unknown) (unknown) (no (unknown) (unknown) WBC (4.5-11.0) (units (unknown) date) X103/uL unknown) (unknown) (no (unknown) (unknown) WBC 11.1 H (units (unk nown) date) (4.5-11.0) X103/uL unknown) (unknown) (no (unknown) (unknown) We had a moderate (units (unknown) date) amount of difficulty unknown) in getting her adequately sedated. She (unknown) (no (unknown) (unknown) [Embedded Image Not (unit s (unknown) date) Available] unknown) (unknown) (no (unknown) (unknown) [METOCLOPRAMIDE] (units (unknown) date) unknown) (unknown) (no (unknown) (unknown) abnormalities (units ( unknown) date) unknown) (unknown) (no (unknown) (unknown) accompanies her and (unit s (unknown) date) notes that she has unknown) not recently had a fever, her vomiting (unknown) (no (unknown) (unknown) adenopathy (units (unk nown) date) unknown) (unknown) (no (unknown) (unknown) advancement (units (un known) date) unknown) (unknown) (no (unknown) (unknown) again for (units (unkn own) date) angioedema. unknown) (unknown) (no (unknown) (unknown) alcohol intake (units (unknown) date) frequency: 3 or more unknown) drinks per day (unknown) (no (unknown) (unknown) alcohol intake: (units (unknown) date) current unknown) (unknown) (no (unknown) (unknown) along the tip, she (units (unknown) date) is unable to open unknown) her jaw more than 2-3 mm and is having (unknown) (no (unknown) (unknown) and angioedema (units ( unknown) date) presents with unknown) swelling to her tongue, clenched jaw and complaints (unknown) (no (unknown) (unknown) and heart rate are (units (unknown) date) controlled. Tongue unknown) has returned to almost normal size. She (unknown) (no (unknown) (unknown) and relatively (units (unknown) date) easily pass a 7 0 unknown) cuffed tube into the trachea. IV access in (unknown) (no (unknown) (unknown) angioedema (units (unk nown) date) increased anxiety unknown) with oxygen saturations in the upper 90%. No (unknown) (no (unknown) (unknown) appear (units (unkno wn) date) unknown) (unknown) (no (unknown) (unknown) appreciated. She is (unit s (unknown) date) doing well for unknown) approximately an hour when all the sudden (unknown) (no (unknown) (unknown) approximately 6.5 (units (unknown) date) cm from the matthew.? unknown) A right internal jugular catheter is (unknown) (no (unknown) (unknown) available including (unit s (unknown) date) crack tray. unknown) Fortunately I was able to get behind her tongue (unknown) (no (unknown) (unknown) bupropion HCl 100 (units (unknown) date) mg tablet,12 hr 100 unknown) mg PO DAILY #90 ea 04/14/22 (unknown) (no (unknown) (unknown) by approximately 2 (units (unknown) date) cm. unknown) (unknown) (no (unknown) (unknown) capnometry and (units (unknown) date) Chest Xray unknown) (unknown) (no (unknown) (unknown) clenched and unable (unit s (unknown) date) to be opened without unknown) jaw dislocation. No cervical (unknown) (no (unknown) (unknown) doctors, review of (units (unknown) date) records, and unknown) interpretation of data from labs, EKGs and (unknown) (no (unknown) (unknown) drip is ordered. (units (unknown) date) unknown) (unknown) (no (unknown) (unknown) edema, initial (units (unknown) date) encounter unknown) (unknown) (no (unknown) (unknown) edema.? No (units (unk nown) date) unknown) (unknown) (no (unknown) (unknown) evaluation. (units (un known) date) unknown) (unknown) (no (unknown) (unknown) extending into (units (unknown) date) unknown) (unknown) (no (unknown) (unknown) extruding out of her (unit s (unknown) date) mouth, peripheral unknown) perfusion was again an issue and decision (unknown) (no (unknown) (unknown) fentanyl was added. (unit s (unknown) date) Once we were unknown) eventually able to get her adequately sedated (unknown) (no (unknown) (unknown) flushed, capped and (unit s (unknown) date) sterile dressing unknown) applied (unknown) (no (unknown) (unknown) for the last (units (u nknown) date) approximately hour unknown) and is getting worse. She is having difficulty (unknown) (no (unknown) (unknown) had initially been (units (unknown) date) on an epi drip but unknown) this was discontinued. At no point was (unknown) (no (unknown) (unknown) had multiple large (units (unknown) date) doses of propofol unknown) and large dose of propofol drip. IV (unknown) (no (unknown) (unknown) has been relatively (unit s (unknown) date) well controlled, she unknown) has not been having abdominal pain (unknown) (no (unknown) (unknown) her heart rate came (unit s (unknown) date) down from the 140 to unknown) the 90 range. She remained in sinus (unknown) (no (unknown) (unknown) household members: (units (unknown) date) spouse unknown) (unknown) (no (unknown) (unknown) imaging as well as (units (unknown) date) managements of unknown) anaphylaxis with angioedema (unknown) (no (unknown) (unknown) increasing (units (unk nown) date) difficulty unknown) breathing. (unknown) (no (unknown) (unknown) latex [LATEX] (units ( unknown) date) Allergy Unknown unknown) Verified 04/13/22 09:42 (unknown) (no (unknown) (unknown) medications (units (un known) date) recreational or unknown) prescribed. (unknown) (no (unknown) (unknown) medications, (units (u nknown) date) abdominal pain, unknown) constipation, diarrhea. (unknown) (no (unknown) (unknown) methamphetamine (units (unknown) date) unknown) (unknown) (no (unknown) (unknown) metoclopramide (units (unknown) date) AdvReac Unknown unknown) DYSTONIA Verified 04/13/22 09:42 (unknown) (no (unknown) (unknown) narcotics does (units (unknown) date) occasionally smoke unknown) marijuana. No recent fever, cough, change to (unknown) (no (unknown) (unknown) paralytic: (units (unk nown) date) Succinylcholine unknown) (unknown) (no (unknown) (unknown) placed in her (units ( unknown) date) external jugular by unknown) me. She is given 0.4 mg of IM epi, 50 mg of (unknown) (no (unknown) (unknown) placed no (units (unkn own) date) pneumothorax. unknown) (unknown) (no (unknown) (unknown) pleural effusions (units (unknown) date) or pneumothorax.? unknown) (unknown) (no (unknown) (unknown) potassium chloride (units (unknown) date) 20 mEq 40 meq PO unknown) DAILY #90 tabs 04/14/22 (unknown) (no (unknown) (unknown) present with (units (u nknown) date) unknown) (unknown) (no (unknown) (unknown) probability of a (units (unknown) date) significant, sudden unknown) or life-threatening deterioration that (unknown) (no (unknown) (unknown) promethazine (units (u nknown) date) [PROMETHAZINE] unknown) Allergy Mild ERYTHEMA Verified 04/13/22 09:42 (unknown) (no (unknown) (unknown) recurrence of her (units (unknown) date) symptoms additional unknown) IM epinephrine is given and epinephrine (unknown) (no (unknown) (unknown) relatively (units (unk nown) date) unremarkable. unknown) (unknown) (no (unknown) (unknown) requires my full (units (unknown) date) and direct unknown) attention, intervention and personal management. (unknown) (no (unknown) (unknown) rhythm. X-ray shows (unit s (unknown) date) the ET tube is unknown) slightly high central line is appropriately (unknown) (no (unknown) (unknown) sedative: Etomidate (unit s (unknown) date) unknown) (unknown) (no (unknown) (unknown) seen (units (unkno wn) date) unknown) (unknown) (no (unknown) (unknown) she sat upright (units (unknown) date) with dramatic tongue unknown) swelling with almost her entire tongue (unknown) (no (unknown) (unknown) she significantly (units (unknown) date) hypotensive. unknown) Peripheral perfusion is significantly improved. (unknown) (no (unknown) (unknown) shock, unspecified, (unit s (unknown) date) initial encounter unknown) (unknown) (no (unknown) (unknown) significant wheeze (units (unknown) date) but poor upper and unknown) lower extremity overall perfusion. Mildly (unknown) (no (unknown) (unknown) sounds bilaterally, (unit s (unknown) date) No breath sounds unknown) over epigastrium, Confirmation by (unknown) (no (unknown) (unknown) spironolactone 25 (units (unknown) date) mg tablet 25 mg PO unknown) DAILY #90 tabs 04/14/22 (unknown) (no (unknown) (unknown) sputum foaming from (unit s (unknown) date) the edges of her unknown) mouth. (unknown) (no (unknown) (unknown) sustained-release (units (unknown) date) unknown) (unknown) (no (unknown) (unknown) tablet,extended (units (unknown) date) release unknown) (unknown) (no (unknown) (unknown) tachycardic and (units (unknown) date) clearly anxious. Her unknown) partner reports no new foods, exposures (unknown) (no (unknown) (unknown) talking because of (units (unknown) date) the tongue swelling unknown) and the clenched jaw. Her partner (unknown) (no (unknown) (unknown) that included in (units (unknown) date) the HPI. unknown) (unknown) (no (unknown) (unknown) that she is (units (un known) date) continuing to bite unknown) her tongue. She states this has been going on (unknown) (no (unknown) (unknown) the external (units (u nknown) date) jugular was tenuous unknown) so central line is placed. Given the (unknown) (no (unknown) (unknown) the stomach is also (units (unknown) date) demonstrated with unknown) the tip not included on the current study. (unknown) (no (unknown) (unknown) the tip projecting (units (unknown) date) over the superior unknown) vena cava.? A new nasogastric tube (unknown) (no (unknown) (unknown) to normal size. Her (unit s (unknown) date) jaw loosening up, unknown) able to speak. No wheezing was (unknown) (no (unknown) (unknown) tobacco type: (units ( unknown) date) cigarettes and unknown) vaping (unknown) (no (unknown) (unknown) today. States she (units (unknown) date) has stopped using unknown) methamphetamines, no recent use of (unknown) (no (unknown) (unknown) unremarkable.? (units (unknown) date) unknown) (unknown) (no (unknown) (unknown) was made to (units (un known) date) urgently intubate. unknown) Result panel 673 (unknown) (no date) (unknown) (unknown) 0 /ul (unkn own) (unknown) (no date) (unknown) (unknown) 0 /ul (unkn own) (unknown) (no date) (unknown) (unknown) 0.0 % (unkn own) (unknown) (no date) (unknown) (unknown) 0.4 % (unkn own) (unknown) (no date) (unknown) (unknown) 11.7 g/dl (unkn own) (unknown) (no date) (unknown) (unknown) 13.2 % (unkn own) (unknown) (no date) (unknown) (unknown) 2.7 % (unkn own) (unknown) (no date) (unknown) (unknown) 200 /ul (unkn own) (unknown) (no date) (unknown) (unknown) 227 x10 3/ul (unkn own) (unknown) (no date) (unknown) (unknown) 3.71 x10 6/ul (unkn own) (unknown) (no date) (unknown) (unknown) 31.5 pg (unkn own) (unknown) (no date) (unknown) (unknown) 33.3 % (unkn own) (unknown) (no date) (unknown) (unknown) 35.1 % (unkn own) (unknown) (no date) (unknown) (unknown) 400 /ul (unkn own) (unknown) (no date) (unknown) (unknown) 5.9 x10 3/ul (unkn own) (unknown) (no date) (unknown) (unknown) 5300 /ul (unkn own) (unknown) (no date) (unknown) (unknown) 7.5 % (unkn own) (unknown) (no date) (unknown) (unknown) 89.4 % (unkn own) (unknown) (no date) (unknown) (unknown) 94.4 fl (unkn own) Result panel 674 (unknown) (no date) (unknown) (unknown) > 60 ml/min (unkn own) (unknown) (no date) (unknown) (unknown) > 60 ml/min (unkn own) (unknown) (no date) (unknown) (unknown) 0.6 mg/dl (unkn own) (unknown) (no date) (unknown) (unknown) 0.87 mg/dl (unkn own) (unknown) (no date) (unknown) (unknown) 1.2 (units unknown) (unknown) (unknown) (no date) (unknown) (unknown) 104 mmol/l (unkn own) (unknown) (no date) (unknown) (unknown) 11 mg/dl (unkn own) (unknown) (no date) (unknown) (unknown) 12.6 (units unknown) (unknown) (unknown) (no date) (unknown) (unknown) 142 mmol/l (unkn own) (unknown) (no date) (unknown) (unknown) 194 mg/dl (unkn own) (unknown) (no date) (unknown) (unknown) 194 mg/dl (unkn own) (unknown) (no date) (unknown) (unknown) 25 mmol/l (unkn own) (unknown) (no date) (unknown) (unknown) 3.5 g/dl (unkn own) (unknown) (no date) (unknown) (unknown) 3.9 mmol/l (unkn own) (unknown) (no date) (unknown) (unknown) 35 iu/l (unkn own) (unknown) (no date) (unknown) (unknown) 4.2 g/dl (unkn own) (unknown) (no date) (unknown) (unknown) 7.7 g/dl (unkn own) (unknown) (no date) (unknown) (unknown) 70 iu/l (unkn own) (unknown) (no date) (unknown) (unknown) 74 u/l (unkn own) (unknown) (no date) (unknown) (unknown) 8.5 mg/dl (unkn own) Result panel 675 (unknown) (no date) (unknown) (unknown) 5.4 % (unkn own) (unknown) (no date) (unknown) (unknown) 5.4 % (unkn own) Result panel 676 (unknown) (no (unknown) (unknown) (no value) (units (unk nown) date) unknown) (unknown) (no (unknown) (unknown) +---------+ (units (un known) date) [phone] +--------- unknown) (unknown) (no (unknown) (unknown) +---------+ (units (un known) date) Hospital +--------- unknown) (unknown) (no (unknown) (unknown) + (units (unknown) date) unknown) --- (unknown) (no (unknown) (unknown) 07/06/22 (units (unkno wn) date) unknown) (unknown) (no (unknown) (unknown) [address] (units (unknown) date) unknown) (unknown) (no (unknown) (unknown) [id number] (units (unkno wn) date) unknown) (unknown) (no (unknown) (unknown) : : [address] (units (unknown) date) : : unknown) (unknown) (no (unknown) (unknown) : : [id number] : : (units ( unknown) date) unknown) (unknown) (no (unknown) (unknown) : : FABIOLA Beasley (units (unknown) date) : : unknown) (unknown) (no (unknown) (unknown) : : Phone: [phone] : (units (unknown) date) : unknown) (unknown) (no (unknown) (unknown) :Account #: (units (un known) date) [id number] Gender: unknown) Female BSA: 1.8 m2 : (unknown) (no (unknown) (unknown) :: 1975 (units (unknown) date) Age: 46 yrs BP: unknown) 83/52 mmHg: (unknown) (no (unknown) (unknown) :Hospital MRN #: (units (unknown) date) [id number] unknown) ReadingLocation: Weight: 158 lb: (unknown) (no (unknown) (unknown) :Name: HARSHAL, (units (unknown) date) DAMEON Rodrigues Study Date: unknown) 07/06/2022 Height: 65 in : (unknown) (no (unknown) (unknown) :Ordering (units (unkn own) date) Physician: DEANNE, : unknown) (unknown) (no (unknown) (unknown) :ALECIA Performed (units (unknown) date) By: Murray unknown) [facility] : (unknown) (no (unknown) (unknown) :Reason For Study: (units (unknown) date) Hypotension : unknown) (unknown) (no (unknown) (unknown) :Referring: DEANNE, (units (unknown) date) ALECIA : unknown) (unknown) (no (unknown) (unknown) Accession Number: (units (unknown) date) [id number] unknown) (unknown) (no (unknown) (unknown) Age/Sex: 46 / F (units (unknown) date) Date of Service: unknown) (unknown) (no (unknown) (unknown) FABIOLA Beasley (units ( unknown) date) [id number] unknown) (unknown) (no (unknown) (unknown) Compared to prior (units (unknown) date) study obtained unknown) March 21, 2022, cardiomyopathy is newly (unknown) (no (unknown) (unknown) : 1975 (units (unknown) date) Acct:[id number] unknown) (unknown) (no (unknown) (unknown) Echocardiogram (units (unknown) date) Report unknown) (unknown) (no (unknown) (unknown) Echocardiography (units (unknown) date) Report unknown) (unknown) (no (unknown) (unknown) Electronically (units (unknown) date) signed by: Daisy unknown) Masoud Morgan on (unknown) (no (unknown) (unknown) FS: 24.4 % (units (unk nown) date) unknown) (unknown) (no (unknown) (unknown) IVSd: 1.0 cm (units (u nknown) date) unknown) (unknown) (no (unknown) (unknown) Interpretation (units (unknown) date) Summary unknown) (unknown) (no (unknown) (unknown) [facility] (units (unknown) date) unknown) (unknown) (no (unknown) (unknown) [place] (units (unkno wn) date) unknown) (unknown) (no (unknown) (unknown) LV george. (units (unkno wn) date) diameter/BSA unknown) (cm/m2): 2.7 (unknown) (no (unknown) (unknown) LV sys. (units (unkno wn) date) diameter/BSA unknown) (cm/m2): 2.0 (unknown) (no (unknown) (unknown) LVIDd: 4.8 cm (units ( unknown) date) TAPSE: 2.5 cm unknown) (unknown) (no (unknown) (unknown) LVIDs: 3.6 cm (units ( unknown) date) unknown) (unknown) (no (unknown) (unknown) LVPWd: 0.94 cm (units (unknown) date) unknown) (unknown) (no (unknown) (unknown) Left Ventricle: (units (unknown) date) The left ventricle unknown) is normal in size and wall thickness. The (unknown) (no (unknown) (unknown) Limited echo to (units (unknown) date) evaluate wall unknown) motion and LV systolic function. (unknown) (no (unknown) (unknown) Loc: ICU 227-1 (units (unknown) date) unknown) (unknown) (no (unknown) (unknown) MMode/2D (units (unkno wn) date) Measurements + unknown) Calculations (unknown) (no (unknown) (unknown) Normal LV size and (units (unknown) date) wall thickness. unknown) There is apical akinesis which in the right (unknown) (no (unknown) (unknown) Normal sinus (units (u nknown) date) rhythm. unknown) (unknown) (no (unknown) (unknown) Ordering Provider: (units (unknown) date) James Herrera unknown) (unknown) (no (unknown) (unknown) Patient: (units (unkno wn) date) Dameon Caputo MR#: unknown) M000 (unknown) (no (unknown) (unknown) Pericardium/ (units (u nknown) date) Pleura There is no unknown) pericardial effusion. There is no pleural (unknown) (no (unknown) (unknown) Procedure: A (units (u nknown) date) two-dimensional unknown) transthoracic echocardiogram with color flow (unknown) (no (unknown) (unknown) Procedure: EC echo (units (unknown) date) limited unknown) (unknown) (no (unknown) (unknown) Reading (units (unkno wn) date) Physician: unknown) 2 04:02 PM (unknown) (no (unknown) (unknown) Right Ventricle: (units (unknown) date) The right ventricle unknown) is normal in size and function. (unknown) (no (unknown) (unknown) Signed (units (unkno wn) date) unknown) (unknown) (no (unknown) (unknown) The patient was in (units (unknown) date) normal sinus rhythm unknown) during the exam. (unknown) (no (unknown) (unknown) (units (unknown) date) unknown) ___ (unknown) (no (unknown) (unknown) and Doppler was (units (unknown) date) performed in unknown) limited views only. The study quality was (unknown) (no (unknown) (unknown) clinical setting (units (unknown) date) could be due to unknown) stress cardiomyopathy. Alternatively, this (unknown) (no (unknown) (unknown) described, apical (units (unknown) date) wall motion unknown) abnormalities are newly described, (unknown) (no (unknown) (unknown) effusion. (units (unkn own) date) unknown) (unknown) (no (unknown) (unknown) ejection fraction (units (unknown) date) is estimated to be unknown) 30-35%. Left ventricular systolic (unknown) (no (unknown) (unknown) finding could be (units (unknown) date) due to LAD disease. unknown) Ejection fraction is estimated at 30-35%. (unknown) (no (unknown) (unknown) function is (units (un known) date) moderately reduced. unknown) (unknown) (no (unknown) (unknown) technically (units (un known) date) adequate. unknown) Comparison is made with the echocardiogram of 03/21/2022. Result panel [id number] (unknown) (no (unknown) (unknown) (no value) (units (unk nown) date) unknown) (unknown) (no (unknown) (unknown) (past 8 hours): (units (unknown) date) unknown) (unknown) (no (unknown) (unknown) -+cuff leak noted (units (unknown) date) unknown) (unknown) (no (unknown) (unknown) -add pepcid (units (un known) date) unknown) (unknown) (no (unknown) (unknown) -bolus 1L of ivf (units (unknown) date) and reassess unknown) (unknown) (no (unknown) (unknown) -check cxr/abg (units (unknown) date) adjust as needed unknown) (unknown) (no (unknown) (unknown) -check echo (units (un known) date) unknown) (unknown) (no (unknown) (unknown) -check serial (units ( unknown) date) ekg/trop unknown) (unknown) (no (unknown) (unknown) -continue benadryl (units (unknown) date) unknown) (unknown) (no (unknown) (unknown) -continue steroids (units (unknown) date) unknown) (unknown) (no (unknown) (unknown) -daily sah/sbt. (units (unknown) date) would keep unknown) intubated today (unknown) (no (unknown) (unknown) -ent eval if (units (u nknown) date) available unknown) (unknown) (no (unknown) (unknown) -feeds as (units (unkn own) date) tolerated unknown) (unknown) (no (unknown) (unknown) -gi/dvt ppx (units (un known) date) unknown) (unknown) (no (unknown) (unknown) -if [id number] is (units (unknown) date) normal, no need for unknown) more FFP, pt recieved 1 (unknown) (no (unknown) (unknown) -keep glucose (units ( unknown) date) 140-180s unknown) (unknown) (no (unknown) (unknown) -monitor ins/outs (units (unknown) date) unknown) (unknown) (no (unknown) (unknown) -neurochecks/seizu (units (unknown) date) re precautions unknown) (unknown) (no (unknown) (unknown) -lomas cxs, does not (units (unknown) date) appear unknown) toxic/infections can hold abx for now (unknown) (no (unknown) (unknown) -please call eICU (units (unknown) date) if condition unknown) changes (unknown) (no (unknown) (unknown) -replace lytes prn (units (unknown) date) unknown) (unknown) (no (unknown) (unknown) -sedation prn goal (units (unknown) date) arsenio -1 unknown) (unknown) (no (unknown) (unknown) -vent support keep (units (unknown) date) sat above 92% unknown) (unknown) (no (unknown) (unknown) 0.7 MCG/KG/HR (units ( unknown) date) unknown) (unknown) (no (unknown) (unknown) 02:04 (units (unkno wn) date) unknown) (unknown) (no (unknown) (unknown) 02:45 07/06/22 (units (unknown) date) unknown) (unknown) (no (unknown) (unknown) 03:00 (units (unkno wn) date) unknown) (unknown) (no (unknown) (unknown) 03:01 07/06/22 (units (unknown) date) unknown) (unknown) (no (unknown) (unknown) 03:15 07/06/22 (units (unknown) date) unknown) (unknown) (no (unknown) (unknown) 03:23 (units (unkno wn) date) unknown) (unknown) (no (unknown) (unknown) 03:30 07/06/22 (units (unknown) date) unknown) (unknown) (no (unknown) (unknown) 03:30 (units (unkno wn) date) unknown) (unknown) (no (unknown) (unknown) 03:45 07/06/22 (units (unknown) date) unknown) (unknown) (no (unknown) (unknown) 03:45 (units (unkno wn) date) unknown) (unknown) (no (unknown) (unknown) 04:00 07/06/22 (units (unknown) date) unknown) (unknown) (no (unknown) (unknown) 04:15 07/06/22 (units (unknown) date) unknown) (unknown) (no (unknown) (unknown) 04:15 (units (unkno wn) date) unknown) (unknown) (no (unknown) (unknown) 04:30 07/06/22 (units (unknown) date) unknown) (unknown) (no (unknown) (unknown) 04:30 (units (unkno wn) date) unknown) (unknown) (no (unknown) (unknown) 04:45 07/06/22 (units (unknown) date) unknown) (unknown) (no (unknown) (unknown) 04:45 (units (unkno wn) date) unknown) (unknown) (no (unknown) (unknown) 05:00 07/06/22 (units (unknown) date) unknown) (unknown) (no (unknown) (unknown) 05:00 (units (unkno wn) date) unknown) (unknown) (no (unknown) (unknown) 05:15 07/06/22 (units (unknown) date) unknown) (unknown) (no (unknown) (unknown) 05:15 (units (unkno wn) date) unknown) (unknown) (no (unknown) (unknown) 05:30 07/06/22 (units (unknown) date) unknown) (unknown) (no (unknown) (unknown) 05:30 (units (unkno wn) date) unknown) (unknown) (no (unknown) (unknown) 05:45 07/06/22 (units (unknown) date) unknown) (unknown) (no (unknown) (unknown) 06:00 07/06/22 (units (unknown) date) unknown) (unknown) (no (unknown) (unknown) 06:00 (units (unkno wn) date) unknown) (unknown) (no (unknown) (unknown) 06:15 07/06/22 (units (unknown) date) unknown) (unknown) (no (unknown) (unknown) 06:15 (units (unkno wn) date) unknown) (unknown) (no (unknown) (unknown) 06:30 07/06/22 (units (unknown) date) unknown) (unknown) (no (unknown) (unknown) 06:41 (units (unkno wn) date) unknown) (unknown) (no (unknown) (unknown) 06:45 07/06/22 (units (unknown) date) unknown) (unknown) (no (unknown) (unknown) 06:45 (units (unkno wn) date) unknown) (unknown) (no (unknown) (unknown) 07:00 07/06/22 (units (unknown) date) unknown) (unknown) (no (unknown) (unknown) 07:00 (units (unkno wn) date) unknown) (unknown) (no (unknown) (unknown) 07:15 07/06/22 (units (unknown) date) unknown) (unknown) (no (unknown) (unknown) 07:30 07/06/22 (units (unknown) date) unknown) (unknown) (no (unknown) (unknown) 07:45 07/06/22 (units (unknown) date) unknown) (unknown) (no (unknown) (unknown) 07:45 (units (unkno wn) date) unknown) (unknown) (no (unknown) (unknown) 07:50 (units (unkno wn) date) unknown) (unknown) (no (unknown) (unknown) 04/14/22 [Rx] (units ( unknown) date) unknown) (unknown) (no (unknown) (unknown) 08:00 07/06/22 (units (unknown) date) unknown) (unknown) (no (unknown) (unknown) 08:00 (units (unkno wn) date) unknown) (unknown) (no (unknown) (unknown) 08:15 07/06/22 (units (unknown) date) unknown) (unknown) (no (unknown) (unknown) 08:30 07/06/22 (units (unknown) date) unknown) (unknown) (no (unknown) (unknown) 08:30 (units (unkno wn) date) unknown) (unknown) (no (unknown) (unknown) 08:47 07/06/22 (units (unknown) date) unknown) (unknown) (no (unknown) (unknown) 08:47 (units (unkno wn) date) unknown) (unknown) (no (unknown) (unknown) 08:49 (units (unkno wn) date) unknown) (unknown) (no (unknown) (unknown) 08:50 07/06/22 (units (unknown) date) unknown) (unknown) (no (unknown) (unknown) 09:00 07/06/22 (units (unknown) date) unknown) (unknown) (no (unknown) (unknown) 09:00 (units (unkno wn) date) unknown) (unknown) (no (unknown) (unknown) 09:15 07/06/22 (units (unknown) date) unknown) (unknown) (no (unknown) (unknown) 09:15 (units (unkno wn) date) unknown) (unknown) (no (unknown) (unknown) 1 MCG/MIN (units (unkn own) date) unknown) (unknown) (no (unknown) (unknown) 07/05/22 07/05/22 (units (unknown) date) 07/05/22 unknown) (unknown) (no (unknown) (unknown) 07/05/22 07/06/22 (units (unknown) date) 07/06/22 unknown) (unknown) (no (unknown) (unknown) 07/06/22 04:45 (units (unknown) date) unknown) (unknown) (no (unknown) (unknown) 07/06/22 1042 (units ( unknown) date) unknown) (unknown) (no (unknown) (unknown) 07/06/22 (units (unkno wn) date) unknown) (unknown) (no (unknown) (unknown) 20:26 20:26 20:44 (units (unknown) date) unknown) (unknown) (no (unknown) (unknown) 22:56 00:57 04:45 (units (unknown) date) unknown) (unknown) (no (unknown) (unknown) 22:56 22:56 22:56 (units (unknown) date) unknown) (unknown) (no (unknown) (unknown) [id number] (units (unkno wn) date) unknown) (unknown) (no (unknown) (unknown) 46 year old female (units (unknown) date) with unknown) (unknown) (no (unknown) (unknown) 5 MCG/KG/MIN (units (u nknown) date) unknown) (unknown) (no (unknown) (unknown) 5 MG/HR (units (unkno wn) date) unknown) (unknown) (no (unknown) (unknown) ACHS KIRIT (units (unkno wn) date) Administration unknown) (unknown) (no (unknown) (unknown) ALT 32 (units (unkno wn) date) unknown) (unknown) (no (unknown) (unknown) ALT 35 H (units (unkno wn) date) unknown) (unknown) (no (unknown) (unknown) ALT (units (unkno wn) date) unknown) (unknown) (no (unknown) (unknown) AST 65 H (units (unkno wn) date) unknown) (unknown) (no (unknown) (unknown) AST 70 H (units (unkno wn) date) unknown) (unknown) (no (unknown) (unknown) AST (units (unkno wn) date) unknown) (unknown) (no (unknown) (unknown) Adenovirus (PCR) (units (unknown) date) Detected H unknown) (unknown) (no (unknown) (unknown) Adenovirus (PCR) (units (unknown) date) unknown) (unknown) (no (unknown) (unknown) Age/Sex: 46 / F (units (unknown) date) unknown) (unknown) (no (unknown) (unknown) Albumin 4.2 (units (un known) date) unknown) (unknown) (no (unknown) (unknown) Albumin (units (unkno wn) date) unknown) (unknown) (no (unknown) (unknown) Albumin/Globulin (units (unknown) date) Ratio 1.2 unknown) (unknown) (no (unknown) (unknown) Albumin/Globulin (units (unknown) date) Ratio unknown) (unknown) (no (unknown) (unknown) Alkaline (units (unkno wn) date) Phosphatase 74 unknown) (unknown) (no (unknown) (unknown) Alkaline (units (unkno wn) date) Phosphatase 78 unknown) (unknown) (no (unknown) (unknown) Alkaline (units (unkno wn) date) Phosphatase unknown) (unknown) (no (unknown) (unknown) Assessment + Plan (units (unknown) date) narrative: unknown) (unknown) (no (unknown) (unknown) Assessment + Plan (units (unknown) date) unknown) (unknown) (no (unknown) (unknown) B. pertussis DNA (units (unknown) date) (PCR) Not detected unknown) (unknown) (no (unknown) (unknown) B. pertussis DNA (units (unknown) date) (PCR) unknown) (unknown) (no (unknown) (unknown) B.parapertussis (units (unknown) date) DNA PCR Not unknown) detected (unknown) (no (unknown) (unknown) B.parapertussis (units (unknown) date) DNA PCR unknown) (unknown) (no (unknown) (unknown) BOLUS ONE (units (unkn own) date) Administration unknown) (unknown) (no (unknown) (unknown) BUN 11 (units (unkno wn) date) unknown) (unknown) (no (unknown) (unknown) BUN 7 (units (unkno wn) date) unknown) (unknown) (no (unknown) (unknown) BUN (units (unkno wn) date) unknown) (unknown) (no (unknown) (unknown) BUN/Creatinine (units (unknown) date) Ratio 12.6 unknown) (unknown) (no (unknown) (unknown) BUN/Creatinine (units (unknown) date) Ratio 9.7 unknown) (unknown) (no (unknown) (unknown) BUN/Creatinine (units (unknown) date) Ratio unknown) (unknown) (no (unknown) (unknown) Baso # (Auto) 0 (units (unknown) date) unknown) (unknown) (no (unknown) (unknown) Baso # (Auto) 100 (units (unknown) date) unknown) (unknown) (no (unknown) (unknown) Baso # (Auto) (units ( unknown) date) unknown) (unknown) (no (unknown) (unknown) Baso % (Auto) 0.4 (units (unknown) date) unknown) (unknown) (no (unknown) (unknown) Baso % (Auto) 0.5 (units (unknown) date) unknown) (unknown) (no (unknown) (unknown) Baso % (Auto) (units ( unknown) date) unknown) (unknown) (no (unknown) (unknown) Blood Pressure (units (unknown) date) 113/86 89/62 L unknown) (unknown) (no (unknown) (unknown) Blood Pressure (units (unknown) date) 116/82 99/69 unknown) (unknown) (no (unknown) (unknown) Blood Pressure (units (unknown) date) 137/102 H unknown) (unknown) (no (unknown) (unknown) Blood Pressure (units (unknown) date) 80/52 L unknown) (unknown) (no (unknown) (unknown) Blood Pressure (units (unknown) date) 81/54 L 81/54 L unknown) (unknown) (no (unknown) (unknown) Blood Pressure (units (unknown) date) 82/53 L 82/55 L unknown) (unknown) (no (unknown) (unknown) Blood Pressure (units (unknown) date) 83/50 L 98/79 unknown) (unknown) (no (unknown) (unknown) Blood Pressure (units (unknown) date) 83/56 L unknown) (unknown) (no (unknown) (unknown) Blood Pressure (units (unknown) date) 84/59 L unknown) (unknown) (no (unknown) (unknown) Blood Pressure (units (unknown) date) 84/60 L 82/52 L unknown) (unknown) (no (unknown) (unknown) Blood Pressure (units (unknown) date) 87/54 L unknown) (unknown) (no (unknown) (unknown) Blood Pressure (units (unknown) date) 87/59 L unknown) (unknown) (no (unknown) (unknown) Blood Pressure (units (unknown) date) 88/54 L unknown) (unknown) (no (unknown) (unknown) Blood Pressure (units (unknown) date) 88/57 L unknown) (unknown) (no (unknown) (unknown) Blood Pressure (units (unknown) date) 89/58 L 84/57 L unknown) (unknown) (no (unknown) (unknown) Blood Pressure (units (unknown) date) 89/62 L 94/56 L unknown) (unknown) (no (unknown) (unknown) Blood Pressure (units (unknown) date) 89/62 L unknown) (unknown) (no (unknown) (unknown) Blood Pressure (units (unknown) date) 90/59 L 108/73 unknown) (unknown) (no (unknown) (unknown) Blood Pressure (units (unknown) date) 93/68 unknown) (unknown) (no (unknown) (unknown) Blood Pressure (units (unknown) date) 96/64 unknown) (unknown) (no (unknown) (unknown) Blood Pressure (units (unknown) date) unknown) (unknown) (no (unknown) (unknown) Blood Type O (units (u nknown) date) Positive unknown) (unknown) (no (unknown) (unknown) Blood Type (units (unk nown) date) unknown) (unknown) (no (unknown) (unknown) Calcium 8.0 L (units ( unknown) date) unknown) (unknown) (no (unknown) (unknown) Calcium 8.5 (units (un known) date) unknown) (unknown) (no (unknown) (unknown) Calcium (units (unkno wn) date) unknown) (unknown) (no (unknown) (unknown) Carbon Dioxide 24 (units (unknown) date) unknown) (unknown) (no (unknown) (unknown) Carbon Dioxide 25 (units (unknown) date) unknown) (unknown) (no (unknown) (unknown) Carbon Dioxide (units (unknown) date) unknown) (unknown) (no (unknown) (unknown) Chlamy pneumoniae (units (unknown) date) PCR Not detected unknown) (unknown) (no (unknown) (unknown) Chlamy pneumoniae (units (unknown) date) PCR unknown) (unknown) (no (unknown) (unknown) Chlorhexidine (units ( unknown) date) Gluconate 15 Ml Cup unknown) PO 15 ml (unknown) (no (unknown) (unknown) Chlorhexidine (units ( unknown) date) Gluconate 15 ml unknown) 07/06/22 08:00 07/06/22 07:49 (unknown) (no (unknown) (unknown) Chloride 104 (units (u nknown) date) unknown) (unknown) (no (unknown) (unknown) Chloride 106 (units (u nknown) date) unknown) (unknown) (no (unknown) (unknown) Chloride (units (unkno wn) date) unknown) (unknown) (no (unknown) (unknown) Consent obtained (units (unknown) date) for unknown) tele-therapy assistant care: Yes (unknown) (no (unknown) (unknown) Coronavirus 229E (units (unknown) date) (PCR) Not detected unknown) (unknown) (no (unknown) (unknown) Coronavirus 229E (units (unknown) date) (PCR) unknown) (unknown) (no (unknown) (unknown) Coronavirus HKU1 (units (unknown) date) (PCR) Not detected unknown) (unknown) (no (unknown) (unknown) Coronavirus HKU1 (units (unknown) date) (PCR) unknown) (unknown) (no (unknown) (unknown) Coronavirus NL63 (units (unknown) date) (PCR) Not detected unknown) (unknown) (no (unknown) (unknown) Coronavirus NL63 (units (unknown) date) (PCR) unknown) (unknown) (no (unknown) (unknown) Coronavirus OC43 (units (unknown) date) (PCR) Not detected unknown) (unknown) (no (unknown) (unknown) Coronavirus OC43 (units (unknown) date) (PCR) unknown) (unknown) (no (unknown) (unknown) Creatinine 0.72 (units (unknown) date) unknown) (unknown) (no (unknown) (unknown) Creatinine 0.87 (units (unknown) date) unknown) (unknown) (no (unknown) (unknown) Creatinine (units (unk nown) date) unknown) (unknown) (no (unknown) (unknown) Critical Care (units ( unknown) date) time: unknown) (unknown) (no (unknown) (unknown) Current (units (unkno wn) date) Medications unknown) (unknown) (no (unknown) (unknown) DAILY KIRIT (units (unkn own) date) Administration unknown) (unknown) (no (unknown) (unknown) : 1975 (units (unknown) date) Acct:[id number] unknown) (unknown) (no (unknown) (unknown) Date of Service: (units (unknown) date) 07/05/22 unknown) (unknown) (no (unknown) (unknown) Deep Vein (units (unkn own) date) Thrombosis/Pulmonar unknown) y Embolism Present on Admission: No (unknown) (no (unknown) (unknown) Dexamethasone 4 (units (unknown) date) Mg/Ml Vial IV 4 mg unknown) (unknown) (no (unknown) (unknown) Dexamethasone 4 mg (units (unknown) date) 07/06/22 08:00 unknown) 07/06/22 07:49 (unknown) (no (unknown) (unknown) Diphenhydramine 50 (units (unknown) date) Mg/Ml Vial IV 50 mg unknown) (unknown) (no (unknown) (unknown) Diphenhydramine (units (unknown) date) HCl 50 mg 07/06/22 unknown) 08:00 07/06/22 07:49 (unknown) (no (unknown) (unknown) Enoxaparin 40 (units ( unknown) date) Mg/0.4 Ml Syringe unknown) SUBCUT 40 mg (unknown) (no (unknown) (unknown) Enoxaparin Sodium (units (unknown) date) 40 mg 07/06/22 unknown) 09:00 07/06/22 08:09 (unknown) (no (unknown) (unknown) Entero/Rhino (PCR) (units (unknown) date) Not detected unknown) (unknown) (no (unknown) (unknown) Entero/Rhino (PCR) (units (unknown) date) unknown) (unknown) (no (unknown) (unknown) Eos # (Auto) 0 (units (unknown) date) unknown) (unknown) (no (unknown) (unknown) Eos # (Auto) (units (u nknown) date) unknown) (unknown) (no (unknown) (unknown) Eos % (Auto) 0.0 L (units (unknown) date) unknown) (unknown) (no (unknown) (unknown) Eos % (Auto) 0.1 L (units (unknown) date) unknown) (unknown) (no (unknown) (unknown) Eos % (Auto) (units (u nknown) date) unknown) (unknown) (no (unknown) (unknown) Epinephrine HCl 4 (units (unknown) date) mg/ Dextrose 250 unknown) mls @ 3.75 mls/hr 07/05/22 21:00 07/06/22 (unknown) (no (unknown) (unknown) Estimated GFR > 60 (units (unknown) date) unknown) (unknown) (no (unknown) (unknown) Estimated GFR (units ( unknown) date) unknown) (unknown) (no (unknown) (unknown) Exam (units (unkno wn) date) unknown) (unknown) (no (unknown) (unknown) Exhaled (units (o wn) date) unknown) (unknown) (no (unknown) (unknown) Fentanyl 1,000 (units (unknown) date) mcg/ Dextrose 250 unknown) mls @ 11.113 mls/hr 07/05/22 21:00 07/06/22 (unknown) (no (unknown) (unknown) FiO2 35 (units (o wn) date) unknown) (unknown) (no (unknown) (unknown) Generic Name Dose (units (unknown) date) Route Start Last unknown) Admin (unknown) (no (unknown) (unknown) Globulin 3.5 (units (u nknown) date) unknown) (unknown) (no (unknown) (unknown) Globulin (units (unkno wn) date) unknown) (unknown) (no (unknown) (unknown) Glucose 194 H D (units (unknown) date) unknown) (unknown) (no (unknown) (unknown) Glucose 296 H (units ( unknown) date) unknown) (unknown) (no (unknown) (unknown) Glucose (units (unkno wn) date) unknown) (unknown) (no (unknown) (unknown) Hct 35.1 L (units (unk n) date) unknown) (unknown) (no (unknown) (unknown) Hct 37.3 (units (unkno wn) date) unknown) (unknown) (no (unknown) (unknown) Hct (units (unkno wn) date) unknown) (unknown) (no (unknown) (unknown) Hemoglobin A1c 5.4 (units (unknown) date) unknown) (unknown) (no (unknown) (unknown) Hemoglobin A1c (units (unknown) date) unknown) (unknown) (no (unknown) (unknown) Hgb 11.7 L (units (unk nown) date) unknown) (unknown) (no (unknown) (unknown) Hgb 12.3 (units (unkno wn) date) unknown) (unknown) (no (unknown) (unknown) Hgb (units (unkno wn) date) unknown) (unknown) (no (unknown) (unknown) Home Medications (units (unknown) date) unknown) (unknown) (no (unknown) (unknown) Human (units (unkno wn) date) Metapneumovir PCR unknown) Not detected (unknown) (no (unknown) (unknown) Human (units (unkno wn) date) Metapneumovir PCR unknown) (unknown) (no (unknown) (unknown) I spent a total of (units (unknown) date) [] minutes of unknown) critical care time on this patient's care (unknown) (no (unknown) (unknown) IF CAMERA (units (unkn own) date) ACTIVATED, patient unknown) seen via real-time interactive audiovisual (unknown) (no (unknown) (unknown) IV 2 mcg/kg/hr (units (unknown) date) unknown) (unknown) (no (unknown) (unknown) IV 2 mg/hr (units (unk nown) date) unknown) (unknown) (no (unknown) (unknown) IV 4 mcg/min (units (u nknown) date) unknown) (unknown) (no (unknown) (unknown) Influenza Type A (units (unknown) date) (PCR) Not detected unknown) (unknown) (no (unknown) (unknown) Influenza Type A (units (unknown) date) (PCR) unknown) (unknown) (no (unknown) (unknown) Influenza Type B (units (unknown) date) (PCR) Not detected unknown) (unknown) (no (unknown) (unknown) Influenza Type B (units (unknown) date) (PCR) unknown) (unknown) (no (unknown) (unknown) Infusion (units (unkno wn) date) unknown) (unknown) (no (unknown) (unknown) Inspiratory Phase (units (unknown) date) Time 0.8 unknown) (unknown) (no (unknown) (unknown) Insulin Human (units ( unknown) date) Lispro 0 unit unknown) 07/06/22 07:45 07/06/22 08:22 (unknown) (no (unknown) (unknown) Insulin Lispro 100 (units (unknown) date) Unit/Ml 3ml Vial unknown) SUBCUT 1 unit (unknown) (no (unknown) (unknown) Interval history: (units (unknown) date) unknown) (unknown) (no (unknown) (unknown) [facility] (units (unknown) date) [address] unknown) [place] [address] (unknown) (no (unknown) (unknown) Laboratory Results (units (unknown) date) - last 24 hr unknown) (unknown) (no (unknown) (unknown) Labs (units (unkno wn) date) unknown) (unknown) (no (unknown) (unknown) Labs: (units (unkno wn) date) unknown) (unknown) (no (unknown) (unknown) Lactated Ringer's (units (unknown) date) 1,000 mls @ 1,000 unknown) mls/hr 07/06/22 10:14 07/06/22 10:19 (unknown) (no (unknown) (unknown) Lactated Ringers (units (unknown) date) IV 07/06/22 11:13 unknown) 1,000 mls/hr (unknown) (no (unknown) (unknown) Lymph # (Auto) 400 (units (unknown) date) L unknown) (unknown) (no (unknown) (unknown) Lymph # (Auto) (units (unknown) date) unknown) (unknown) (no (unknown) (unknown) Lymph % (Auto) 3.9 (units (unknown) date) L unknown) (unknown) (no (unknown) (unknown) Lymph % (Auto) 7.5 (units (unknown) date) L unknown) (unknown) (no (unknown) (unknown) Lymph % (Auto) (units (unknown) date) unknown) (unknown) (no (unknown) (unknown) M. pneumoniae (units ( unknown) date) (PCR) Not detected unknown) (unknown) (no (unknown) (unknown) M. pneumoniae (units ( unknown) date) (PCR) unknown) (unknown) (no (unknown) (unknown) MCH 31.3 (units (unkno wn) date) unknown) (unknown) (no (unknown) (unknown) MCH 31.5 (units (unkno wn) date) unknown) (unknown) (no (unknown) (unknown) MCH (units (unkno wn) date) unknown) (unknown) (no (unknown) (unknown) MCHC 33.0 (units (unkn own) date) unknown) (unknown) (no (unknown) (unknown) MCHC 33.3 (units (unkn own) date) unknown) (unknown) (no (unknown) (unknown) MCHC (units (unkno wn) date) unknown) (unknown) (no (unknown) (unknown) MCV 94.4 (units (unkno wn) date) unknown) (unknown) (no (unknown) (unknown) MCV 94.9 (units (unkno wn) date) unknown) (unknown) (no (unknown) (unknown) MCV (units (unkno wn) date) unknown) (unknown) (no (unknown) (unknown) Medications: (units (u nknown) date) unknown) (unknown) (no (unknown) (unknown) Midazolam HCl 50 (units (unknown) date) mg/ Dextrose 250 unknown) mls @ 25 mls/hr 07/05/22 22:15 07/06/22 (unknown) (no (unknown) (unknown) [place] # (Auto) 100 (units (unknown) date) unknown) (unknown) (no (unknown) (unknown) [place] # (Auto) 200 (units (unknown) date) unknown) (unknown) (no (unknown) (unknown) [place] # (Auto) (units ( unknown) date) unknown) (unknown) (no (unknown) (unknown) [place] % (Auto) 1.1 (units (unknown) date) L unknown) (unknown) (no (unknown) (unknown) [place] % (Auto) 2.7 (units (unknown) date) L unknown) (unknown) (no (unknown) (unknown) [place] % (Auto) (units ( unknown) date) unknown) (unknown) (no (unknown) (unknown) Nasal Screen MRSA (units (unknown) date) (PCR) Positive for unknown) mrsa H (unknown) (no (unknown) (unknown) Nasal Screen MRSA (units (unknown) date) (PCR) unknown) (unknown) (no (unknown) (unknown) Neut # (Auto) (units ( unknown) date) 72016 H unknown) (unknown) (no (unknown) (unknown) Neut # (Auto) 5300 (units (unknown) date) unknown) (unknown) (no (unknown) (unknown) Neut # (Auto) (units ( unknown) date) unknown) (unknown) (no (unknown) (unknown) Neut % (Auto) 89.4 (units (unknown) date) H unknown) (unknown) (no (unknown) (unknown) Neut % (Auto) 94.4 (units (unknown) date) H unknown) (unknown) (no (unknown) (unknown) Neut % (Auto) (units ( unknown) date) unknown) (unknown) (no (unknown) (unknown) Objective (units (unkn own) date) unknown) (unknown) (no (unknown) (unknown) Other (units (unkno wn) date) 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/roles: unknown) n/a (unknown) (no (unknown) (unknown) Oxygen Delivery (units (unknown) date) Method Mechanical unknown) Ventilation (unknown) (no (unknown) (unknown) Oxygen Delivery (units (unknown) date) Method Mechanical unknown) (unknown) (no (unknown) (unknown) Oxygen Delivery (units (unknown) date) Method unknown) (unknown) (no (unknown) (unknown) Parainfluenza 1 (units (unknown) date) (PCR) Not detected unknown) (unknown) (no (unknown) (unknown) Parainfluenza 1 (units (unknown) date) (PCR) unknown) (unknown) (no (unknown) (unknown) Parainfluenza 2 (units (unknown) date) (PCR) Not detected unknown) (unknown) (no (unknown) (unknown) Parainfluenza 2 (units (unknown) date) (PCR) unknown) (unknown) (no (unknown) (unknown) Parainfluenza 3 (units (unknown) date) (PCR) Not detected unknown) (unknown) (no (unknown) (unknown) Parainfluenza 3 (units (unknown) date) (PCR) unknown) (unknown) (no (unknown) (unknown) Parainfluenza 4 (units (unknown) date) (PCR) Not detected unknown) (unknown) (no (unknown) (unknown) Parainfluenza 4 (units (unknown) date) (PCR) unknown) (unknown) (no (unknown) (unknown) Parameters: (units (un known) date) unknown) (unknown) (no (unknown) (unknown) Patient Location: (units (unknown) date) ICU unknown) (unknown) (no (unknown) (unknown) Patient Position (units (unknown) date) HOB >= 30 degrees unknown) (unknown) (no (unknown) (unknown) Patient: (units (unkno wn) date) Dameon Caputo MR#: unknown) [id number] (unknown) (no (unknown) (unknown) Plt Count 227 (units ( unknown) date) unknown) (unknown) (no (unknown) (unknown) Plt Count 238 (units ( unknown) date) unknown) (unknown) (no (unknown) (unknown) Plt Count (units (unkn own) date) unknown) (unknown) (no (unknown) (unknown) Positive End (units (u nknown) date) Expiratory 5 unknown) (unknown) (no (unknown) (unknown) Potassium 3.5 (units ( unknown) date) unknown) (unknown) (no (unknown) (unknown) Potassium 3.9 (units ( unknown) date) unknown) (unknown) (no (unknown) (unknown) Potassium (units (unkn own) date) unknown) (unknown) (no (unknown) (unknown) Pressure (units (unkno wn) date) unknown) (unknown) (no (unknown) (unknown) Propofol 1,000 mg (units (unknown) date) in 100 mls @ 1.905 unknown) mls/hr 07/05/22 20:30 07/06/22 05:19 (unknown) (no (unknown) (unknown) Propofol 200 Mg/20 (units (unknown) date) Ml Vial IV 80 mg unknown) (unknown) (no (unknown) (unknown) Propofol 80 mg (units (unknown) date) 07/05/22 20:48 unknown) 07/05/22 22:50 (unknown) (no (unknown) (unknown) Propofol IV 0 (units ( unknown) date) mcg/kg/min unknown) (unknown) (no (unknown) (unknown) Protocol (units (unkno wn) date) unknown) (unknown) (no (unknown) (unknown) Provider location (units (unknown) date) (State): [place] unknown) (unknown) (no (unknown) (unknown) Provider: James (units (unknown) date) Sharon unknown) (unknown) (no (unknown) (unknown) Pulse Oximetry 100 (units (unknown) date) 100 unknown) (unknown) (no (unknown) (unknown) Pulse Oximetry 100 (units (unknown) date) unknown) (unknown) (no (unknown) (unknown) Pulse Oximetry 99 (units (unknown) date) 100 unknown) (unknown) (no (unknown) (unknown) Pulse Oximetry 99 (units (unknown) date) 98 unknown) (unknown) (no (unknown) (unknown) Pulse Oximetry 99 (units (unknown) date) 99 unknown) (unknown) (no (unknown) (unknown) Pulse Oximetry 99 (units (unknown) date) unknown) (unknown) (no (unknown) (unknown) Pulse Oximetry (units (unknown) date) unknown) (unknown) (no (unknown) (unknown) Pulse Rate 81 108 (units (unknown) date) H unknown) (unknown) (no (unknown) (unknown) Pulse Rate 83 83 (units (unknown) date) unknown) (unknown) (no (unknown) (unknown) Pulse Rate 83 (units ( unknown) date) unknown) (unknown) (no (unknown) (unknown) Pulse Rate 84 84 (units (unknown) date) unknown) (unknown) (no (unknown) (unknown) Pulse Rate 84 85 (units (unknown) date) unknown) (unknown) (no (unknown) (unknown) Pulse Rate 84 (units ( unknown) date) unknown) (unknown) (no (unknown) (unknown) Pulse Rate 85 83 (units (unknown) date) unknown) (unknown) (no (unknown) (unknown) Pulse Rate 85 (units ( unknown) date) unknown) (unknown) (no (unknown) (unknown) Pulse Rate 86 85 (units (unknown) date) unknown) (unknown) (no (unknown) (unknown) Pulse Rate 86 94 H (units (unknown) date) unknown) (unknown) (no (unknown) (unknown) Pulse Rate 87 (units ( unknown) date) unknown) (unknown) (no (unknown) (unknown) Pulse Rate 91 H 87 (units (unknown) date) unknown) (unknown) (no (unknown) (unknown) Pulse Rate 91 H 92 (units (unknown) date) H unknown) (unknown) (no (unknown) (unknown) Pulse Rate 91 H (units (unknown) date) unknown) (unknown) (no (unknown) (unknown) Pulse Rate (units (unk nown) date) unknown) (unknown) (no (unknown) (unknown) Q10MIN PRN (units (unk nown) date) Administration unknown) (unknown) (no (unknown) (unknown) Q6H KIRIT (units (unkno wn) date) Administration unknown) (unknown) (no (unknown) (unknown) Quality TeleICU (units (unknown) date) unknown) (unknown) (no (unknown) (unknown) RBC 3.71 L (units (unk nown) date) unknown) (unknown) (no (unknown) (unknown) RBC 3.93 L (units (unk nown) date) unknown) (unknown) (no (unknown) (unknown) RBC (units (unkno wn) date) unknown) (unknown) (no (unknown) (unknown) RDW 13.2 (units (unkno wn) date) unknown) (unknown) (no (unknown) (unknown) RDW (units (unkno wn) date) unknown) (unknown) (no (unknown) (unknown) RSV (PCR) Not (units ( unknown) date) detected unknown) (unknown) (no (unknown) (unknown) RSV (PCR) (units (unkn own) date) unknown) (unknown) (no (unknown) (unknown) RT Vent Frequency (units (unknown) date) 16 unknown) (unknown) (no (unknown) (unknown) Respiratory Rate (units (unknown) date) 14 19 unknown) (unknown) (no (unknown) (unknown) Respiratory Rate (units (unknown) date) 15 unknown) (unknown) (no (unknown) (unknown) Respiratory Rate (units (unknown) date) 16 16 unknown) (unknown) (no (unknown) (unknown) Respiratory Rate (units (unknown) date) 16 17 unknown) (unknown) (no (unknown) (unknown) Respiratory Rate (units (unknown) date) 16 46 H unknown) (unknown) (no (unknown) (unknown) Respiratory Rate (units (unknown) date) 16 unknown) (unknown) (no (unknown) (unknown) Respiratory Rate (units (unknown) date) 17 17 unknown) (unknown) (no (unknown) (unknown) Respiratory Rate (units (unknown) date) 17 19 unknown) (unknown) (no (unknown) (unknown) Respiratory Rate (units (unknown) date) 17 unknown) (unknown) (no (unknown) (unknown) Respiratory Rate (units (unknown) date) 18 unknown) (unknown) (no (unknown) (unknown) Respiratory Rate (units (unknown) date) 19 unknown) (unknown) (no (unknown) (unknown) Respiratory Rate (units (unknown) date) 21 unknown) (unknown) (no (unknown) (unknown) Respiratory Rate (units (unknown) date) unknown) (unknown) (no (unknown) (unknown) Result Diagrams: (units (unknown) date) unknown) (unknown) (no (unknown) (unknown) SARS-CoV-2 (PCR) (units (unknown) date) Not detected unknown) (unknown) (no (unknown) (unknown) SARS-CoV-2 (PCR) (units (unknown) date) unknown) (unknown) (no (unknown) (unknown) Sedation (units (unkno wn) date) unknown) (unknown) (no (unknown) (unknown) Signed (units (unkno wn) date) By:<Electronically unknown) signed by James Herrera> (unknown) (no (unknown) (unknown) Sodium 142 (units (unk nown) date) unknown) (unknown) (no (unknown) (unknown) Sodium 143 (units (unk nown) date) unknown) (unknown) (no (unknown) (unknown) Sodium (units (unkno wn) date) unknown) (unknown) (no (unknown) (unknown) Subjective (units (unk nown) date) unknown) (unknown) (no (unknown) (unknown) TITRATE KIRIT 0 (units ( unknown) date) mls/hr unknown) (unknown) (no (unknown) (unknown) TITRATE KIRIT 10 (units (unknown) date) mls/hr unknown) (unknown) (no (unknown) (unknown) TITRATE KIRIT 15 (units (unknown) date) mls/hr unknown) (unknown) (no (unknown) (unknown) TITRATE KIRIT 31.752 (units (unknown) date) mls/hr unknown) (unknown) (no (unknown) (unknown) Teleintensivist (units (unknown) date) Progress Note unknown) (unknown) (no (unknown) (unknown) Temperature 98.2 F (units (unknown) date) unknown) (unknown) (no (unknown) (unknown) Temperature 98.3 F (units (unknown) date) unknown) (unknown) (no (unknown) (unknown) Temperature (units (un known) date) unknown) (unknown) (no (unknown) (unknown) Time Spent With (units (unknown) date) Patient unknown) (unknown) (no (unknown) (unknown) Titration (units (unkn own) date) unknown) (unknown) (no (unknown) (unknown) Total Bilirubin (units (unknown) date) 0.5 unknown) (unknown) (no (unknown) (unknown) Total Bilirubin (units (unknown) date) 0.6 unknown) (unknown) (no (unknown) (unknown) Total Bilirubin (units (unknown) date) unknown) (unknown) (no (unknown) (unknown) Total Protein 7.7 (units (unknown) date) unknown) (unknown) (no (unknown) (unknown) Total Protein (units ( unknown) date) unknown) (unknown) (no (unknown) (unknown) Trade Name Freq (units (unknown) date) PRN Reason Stop unknown) Dose Admin (unknown) (no (unknown) (unknown) U Benzodiazepines (units [...] Screen unknown) (unknown) (no (unknown) (unknown) Ur Culture (units (unk nown) date) Indicated? Cult not unknown) indicated (unknown) (no (unknown) (unknown) Ur Culture (units (unk nown) date) Indicated? unknown) (unknown) (no (unknown) (unknown) Ur Leukocyte (units (u nknown) date) Esterase Negative unknown) (unknown) (no (unknown) (unknown) Ur Leukocyte (units (u nknown) date) Esterase unknown) (unknown) (no (unknown) (unknown) Ur MDMA [...] Scrn unknown) (unknown) (no (unknown) (unknown) Ur Specific (units (un known) date) [place] 1.010 unknown) (unknown) (no (unknown) (unknown) Ur Specific (units (un known) date) [place] unknown) (unknown) (no (unknown) (unknown) Ur Squamous Epith (units (unknown) date) Cells 0-1 /hpf unknown) (unknown) (no (unknown) (unknown) Ur Squamous Epith (units (unknown) date) Cells unknown) (unknown) (no (unknown) (unknown) Ur Transition (units ( unknown) date) Epith Cell 0-1/hpf unknown) (unknown) (no (unknown) (unknown) Ur Transition (units ( unknown) date) Epith Cell unknown) (unknown) (no (unknown) (unknown) Urine Appearance (units (unknown) date) Clear unknown) (unknown) (no (unknown) (unknown) Urine Appearance (units (unknown) date) unknown) (unknown) (no (unknown) (unknown) Urine Bacteria (units (unknown) date) None seen unknown) (unknown) (no (unknown) (unknown) Urine Bacteria (units (unknown) date) unknown) (unknown) (no (unknown) (unknown) Urine Bilirubin (units (unknown) date) Negative unknown) (unknown) (no (unknown) (unknown) Urine Bilirubin (units (unknown) date) unknown) (unknown) (no (unknown) (unknown) Urine Cocaine (units ( unknown) date) Screen Negative unknown) (unknown) (no (unknown) (unknown) Urine Cocaine (units ( unknown) date) Screen unknown) (unknown) (no (unknown) (unknown) Urine Color Yellow (units (unknown) date) unknown) (unknown) (no (unknown) (unknown) Urine Color (units (un known) date) unknown) (unknown) (no (unknown) (unknown) Urine Glucose (UA) (units (unknown) date) 1+ H unknown) (unknown) (no (unknown) (unknown) Urine Glucose (UA) (units (unknown) date) unknown) (unknown) (no (unknown) (unknown) Urine Ketones (units ( unknown) date) Negative unknown) (unknown) (no (unknown) (unknown) Urine Ketones (units ( unknown) date) unknown) (unknown) (no (unknown) (unknown) Urine Methadone (units (unknown) date) Screen Negative unknown) (unknown) (no (unknown) (unknown) Urine Methadone (units (unknown) date) Screen unknown) (unknown) (no (unknown) (unknown) Urine Nitrate (units ( unknown) date) Negative unknown) (unknown) (no (unknown) (unknown) Urine Nitrate (units ( unknown) date) unknown) (unknown) (no (unknown) (unknown) Urine Occult Blood (units (unknown) date) Trace-lysed unknown) (unknown) (no (unknown) (unknown) Urine Occult Blood (units (unknown) date) unknown) (unknown) (no (unknown) (unknown) Urine Protein 1+ H (units (unknown) date) unknown) (unknown) [...] unknown) (unknown) (no (unknown) (unknown) Urine WBC None (units (unknown) date) seen unknown) (unknown) (no (unknown) (unknown) Urine WBC (units (unkn own) date) unknown) (unknown) (no (unknown) (unknown) Urine pH 7.0 (units (u nknown) date) unknown) (unknown) (no (unknown) (unknown) Urine pH (units (unkno wn) date) unknown) (unknown) (no (unknown) (unknown) VTE (units (unkno wn) date) unknown) (unknown) (no (unknown) (unknown) Ventilation (units (un known) date) unknown) (unknown) (no (unknown) (unknown) Ventilator (units (unk nown) date) Settings unknown) (unknown) (no (unknown) (unknown) Ventilator Tidal (units (unknown) date) Volume 400 unknown) (unknown) (no (unknown) (unknown) Ventilator (units (unk nown) date) unknown) (unknown) (no (unknown) (unknown) Visit Medications (units (unknown) date) (administered) unknown) (unknown) (no (unknown) (unknown) Vital Signs (units (un known) date) unknown) (unknown) (no (unknown) (unknown) Vt/kg IBW 7 (units (un known) date) unknown) (unknown) (no (unknown) (unknown) WBC 11.1 H (units (unk nown) date) unknown) (unknown) (no (unknown) (unknown) WBC 5.9 (units (unkno wn) date) unknown) (unknown) (no (unknown) (unknown) WBC (units (unkno wn) date) unknown) (unknown) (no (unknown) (unknown) [Embedded Image (units (unknown) date) Not Available] unknown) (unknown) (no (unknown) (unknown) acute resp failure (units (unknown) date) unknown) (unknown) (no (unknown) (unknown) angioedema (units (unk nown) date) unknown) (unknown) (no (unknown) (unknown) bupropion HCl 100 (units (unknown) date) mg tablet,12 hr unknown) sustained-release 100 mg PO DAILY #90 ea (unknown) (no (unknown) (unknown) chart/labs/imaging (units (unknown) date) reviewed unknown) (unknown) (no (unknown) (unknown) communication: (units (unknown) date) Camera activated unknown) (unknown) (no (unknown) (unknown) currently (units (unkn own) date) afebrile, unknown) hypotension on epi (unknown) (no (unknown) (unknown) n/a (units (unkno wn) date) unknown) (unknown) (no (unknown) (unknown) patient seen with (units (unknown) date) bedside nurse unknown) (unknown) (no (unknown) (unknown) plan (units (unkno wn) date) unknown) (unknown) (no (unknown) (unknown) potassium chloride (units (unknown) date) 20 mEq unknown) tablet,extended release 40 meq PO DAILY #90 tabs (unknown) (no (unknown) (unknown) shock, likely (units ( unknown) date) multifactorial unknown) (unknown) (no (unknown) (unknown) spironolactone 25 (units (unknown) date) mg tablet 25 mg PO unknown) DAILY #90 tabs 04/14/22 [Rx] (unknown) (no (unknown) (unknown) today; this time (units (unknown) date) is exclusive of unknown) procedural time. 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 Result panel 678 (unknown) (no date) (unknown) (unknown) (no value) (units (un known) unknown) (unknown) (no date) (unknown) (unknown) 07/06/22 (units (unkn own) unknown) (unknown) (no date) (unknown) (unknown) [address]units (unk nown) [address] unknown) (unknown) (no date) (unknown) (unknown) [id number] (units (unkn own) unknown) (unknown) (no date) (unknown) (unknown) Accession (units (unk nown) Number: unknown) [id number] (unknown) (no date) (unknown) (unknown) Age/Sex: 46 / (units (unknown) F Date of unknown) Service: (unknown) (no date) (unknown) (unknown) [place] (units (unknown) [id number] unknown) (unknown) (no date) (unknown) (unknown) Approved by: (units ( unknown) Yovanny Berry M.D. unknown) on 07/06/2022 at 14:48 (unknown) (no date) (unknown) (unknown) Bones and (units (unk nown) chest wall: No unknown) suspicious bony lesions. Overlying soft tissues (unknown) (no date) (unknown) (unknown) [facility], , XR CHEST 1V, 07/05/2022, 20:32. [place] (unknown) (no date) (unknown) (unknown) : (units (unkn own) 1975 unknown) Acct:[id number] (unknown) (no date) (unknown) (unknown) Dictated by: (units ( unknown) Yovanyn Berry M.D. unknown) on 07/06/2022 at 14:47 (unknown) (no date) (unknown) (unknown) FINDINGS: (units (unk nown) unknown) (unknown) (no date) (unknown) (unknown) Hospital, CR, (units (unknown) unknown) (unknown) (no date) (unknown) (unknown) IMPRESSION: (units (u nknown) Appropriate unknown) positioning of life support lines. Compared to (unknown) (no date) (unknown) (unknown) INDICATIONS: (units ( unknown) ett unknown) (unknown) (no date) (unknown) (unknown) [facility] (unknown) (no date) (unknown) (unknown) Loc: ICU 227-1 (units (unknown) unknown) (unknown) (no date) (unknown) (unknown) Lungs and (units (unk nown) pleura: unknown) Decreased lung disease compared yesterday's radiograph. No (unknown) (no date) (unknown) (unknown) Mediastinum: (units ( unknown) Mediastinal unknown) contours appear normal. Heart size is normal. (unknown) (no date) (unknown) (unknown) Ordering (units (unkn own) Provider: James unknown) Sharon (unknown) (no date) (unknown) (unknown) PROCEDURE: XR (units (unknown) CHEST 1V unknown) (unknown) (no date) (unknown) (unknown) Patient: (units (unkn own) Dameon Caputo unknown) MR#: [id number] (unknown) (no date) (unknown) (unknown) Procedure: XR (units (unknown) chest 1V unknown) (unknown) (no date) (unknown) (unknown) Signed (units (unkn own) unknown) (unknown) (no date) (unknown) (unknown) Surgical (units (unkn own) changes and unknown) devices: Right central line terminates in the SVC. ET (unknown) (no date) (unknown) (unknown) TECHNIQUE: One (units (unknown) view of the unknown) chest was acquired. (unknown) (no date) (unknown) (unknown) XR CHEST 1V, (units ( unknown) 03/20/2022, unknown) 9:02. (unknown) (no date) (unknown) (unknown) XRay Report (units (u nknown) unknown) (unknown) (no date) (unknown) (unknown) appear (units (unkn own) unknown) (unknown) (no date) (unknown) (unknown) effusions. (units (un known) unknown) (unknown) (no date) (unknown) (unknown) of view. (units (unkn own) unknown) (unknown) (no date) (unknown) (unknown) pleural (units (unkn own) unknown) (unknown) (no date) (unknown) (unknown) radiograph, (units (u nknown) lung disease is unknown) decreased. (unknown) (no date) (unknown) (unknown) terminates in (units (unknown) appropriate unknown) position. Enteric tube terminates beyond the field (unknown) (no date) (unknown) (unknown) tube (units (unkn own) unknown) (unknown) (no date) (unknown) (unknown) unremarkable. (units (unknown) unknown) (unknown) (no date) (unknown) (unknown) yesterday's (units (u nknown) unknown) Result panel 679 (unknown) (no date) (unknown) (unknown) -3.0 mmol/l (unkn own) (unknown) (no date) (unknown) (unknown) 105 mmhg (unkn own) (unknown) (no date) (unknown) (unknown) 23 mmol/l (unkn own) (unknown) (no date) (unknown) (unknown) 24 mmol/l (unkn own) (unknown) (no date) (unknown) (unknown) 30 (units unknown) (unknown) (unknown) (no date) (unknown) (unknown) 40.7 mmhg (unkn own) (unknown) (no date) (unknown) (unknown) 7.36 (units unknown) (unknown) (unknown) (no date) (unknown) (unknown) 7.36 (units unknown) (unknown) (unknown) (no date) (unknown) (unknown) 98 % (unkn own) Result panel 680 (unknown) (no (unknown) (unknown) (no value) (units (unk nown) date) unknown) (unknown) (no (unknown) (unknown) (past 8 hours): (units (unknown) date) unknown) (unknown) (no (unknown) (unknown) 04:45 15:19 (units (un known) date) unknown) (unknown) (no (unknown) (unknown) 07/05/22 07/05/22 (units (unknown) date) 07/05/22 unknown) (unknown) (no (unknown) (unknown) 07/05/22 07/06/22 (units (unknown) date) 07/06/22 unknown) (unknown) (no (unknown) (unknown) 07/06/22 04:45 (units (unknown) date) unknown) (unknown) (no (unknown) (unknown) 07/06/22 07/06/22 (units (unknown) date) unknown) (unknown) (no (unknown) (unknown) 07/06/22 1914 (units ( unknown) date) unknown) (unknown) (no (unknown) (unknown) 07/06/22 (units (unkno wn) date) unknown) (unknown) (no (unknown) (unknown) 11:15 07/06/22 (units (unknown) date) unknown) (unknown) (no (unknown) (unknown) 11:30 07/06/22 (units (unknown) date) unknown) (unknown) (no (unknown) (unknown) 11:30 (units (unkno wn) date) unknown) (unknown) (no (unknown) (unknown) 11:45 07/06/22 (units (unknown) date) unknown) (unknown) (no (unknown) (unknown) 11:45 (units (unkno wn) date) unknown) (unknown) (no (unknown) (unknown) 12:00 07/06/22 (units (unknown) date) unknown) (unknown) (no (unknown) (unknown) 12:15 07/06/22 (units (unknown) date) unknown) (unknown) (no (unknown) (unknown) 12:15 (units (unkno wn) date) unknown) (unknown) (no (unknown) (unknown) 12:30 07/06/22 (units (unknown) date) unknown) (unknown) (no (unknown) (unknown) 12:30 (units (unkno wn) date) unknown) (unknown) (no (unknown) (unknown) 12:45 07/06/22 (units (unknown) date) unknown) (unknown) (no (unknown) (unknown) 12:50 07/06/22 (units (unknown) date) unknown) (unknown) (no (unknown) (unknown) 12:50 (units (unkno wn) date) unknown) (unknown) (no (unknown) (unknown) 13:00 07/06/22 (units (unknown) date) unknown) (unknown) (no (unknown) (unknown) 13:00 (units (unkno wn) date) unknown) (unknown) (no (unknown) (unknown) 13:03 07/06/22 (units (unknown) date) unknown) (unknown) (no (unknown) (unknown) 13:06 07/06/22 (units (unknown) date) unknown) (unknown) (no (unknown) (unknown) 13:06 (units (unkno wn) date) unknown) (unknown) (no (unknown) (unknown) 13:15 07/06/22 (units (unknown) date) unknown) (unknown) (no (unknown) (unknown) 13:15 (units (unkno wn) date) unknown) (unknown) (no (unknown) (unknown) 13:30 07/06/22 (units (unknown) date) unknown) (unknown) (no (unknown) (unknown) 13:45 07/06/22 (units (unknown) date) unknown) (unknown) (no (unknown) (unknown) 13:45 (units (unkno wn) date) unknown) (unknown) (no (unknown) (unknown) 14:00 07/06/22 (units (unknown) date) unknown) (unknown) (no (unknown) (unknown) 14:00 (units (unkno wn) date) unknown) (unknown) (no (unknown) (unknown) 14:03 07/06/22 (units (unknown) date) unknown) (unknown) (no (unknown) (unknown) 14:05 07/06/22 (units (unknown) date) unknown) (unknown) (no (unknown) (unknown) 14:05 (units (unkno wn) date) unknown) (unknown) (no (unknown) (unknown) 14:15 07/06/22 (units (unknown) date) unknown) (unknown) (no (unknown) (unknown) 14:15 (units (unkno wn) date) unknown) (unknown) (no (unknown) (unknown) 14:30 07/06/22 (units (unknown) date) unknown) (unknown) (no (unknown) (unknown) 14:45 07/06/22 (units (unknown) date) unknown) (unknown) (no (unknown) (unknown) 14:45 (units (unkno wn) date) unknown) (unknown) (no (unknown) (unknown) 15:00 07/06/22 (units (unknown) date) unknown) (unknown) (no (unknown) (unknown) 15:00 (units (unkno wn) date) unknown) (unknown) (no (unknown) (unknown) 15:15 07/06/22 (units (unknown) date) unknown) (unknown) (no (unknown) (unknown) 15:30 07/06/22 (units (unknown) date) unknown) (unknown) (no (unknown) (unknown) 15:30 (units (unkno wn) date) unknown) (unknown) (no (unknown) (unknown) 15:45 07/06/22 (units (unknown) date) unknown) (unknown) (no (unknown) (unknown) 15:45 (units (unkno wn) date) unknown) (unknown) (no (unknown) (unknown) 16:00 07/06/22 (units (unknown) date) unknown) (unknown) (no (unknown) (unknown) 16:00 (units (unkno wn) date) unknown) (unknown) (no (unknown) (unknown) 16:09 07/06/22 (units (unknown) date) unknown) (unknown) (no (unknown) (unknown) 16:15 07/06/22 (units (unknown) date) unknown) (unknown) (no (unknown) (unknown) 16:30 07/06/22 (units (unknown) date) unknown) (unknown) (no (unknown) (unknown) 16:30 (units (unkno wn) date) unknown) (unknown) (no (unknown) (unknown) 16:45 07/06/22 (units (unknown) date) unknown) (unknown) (no (unknown) (unknown) 16:45 (units (unkno wn) date) unknown) (unknown) (no (unknown) (unknown) 17:00 07/06/22 (units (unknown) date) unknown) (unknown) (no (unknown) (unknown) 17:00 (units (unkno wn) date) unknown) (unknown) (no (unknown) (unknown) 17:15 07/06/22 (units (unknown) date) unknown) (unknown) (no (unknown) (unknown) 17:15 (units (unkno wn) date) unknown) (unknown) (no (unknown) (unknown) 17:30 07/06/22 (units (unknown) date) unknown) (unknown) (no (unknown) (unknown) 17:30 (units (unkno wn) date) unknown) (unknown) (no (unknown) (unknown) 17:45 07/06/22 (units (unknown) date) unknown) (unknown) (no (unknown) (unknown) 18:00 07/06/22 (units (unknown) date) unknown) (unknown) (no (unknown) (unknown) 18:15 07/06/22 (units (unknown) date) unknown) (unknown) (no (unknown) (unknown) 18:15 (units (unkno wn) date) unknown) (unknown) (no (unknown) (unknown) 18:30 07/06/22 (units (unknown) date) unknown) (unknown) (no (unknown) (unknown) 18:30 (units (unkno wn) date) unknown) (unknown) (no (unknown) (unknown) 18:45 07/06/22 (units (unknown) date) unknown) (unknown) (no (unknown) (unknown) 18:45 (units (unkno wn) date) unknown) (unknown) (no (unknown) (unknown) 20:26 20:26 20:44 (units (unknown) date) unknown) (unknown) (no (unknown) (unknown) 22:56 00:57 04:45 (units (unknown) date) unknown) (unknown) (no (unknown) (unknown) 22:56 22:56 22:56 (units (unknown) date) unknown) (unknown) (no (unknown) (unknown) [id number] (units (unkno wn) date) unknown) (unknown) (no (unknown) (unknown) 46-year-old female (units (unknown) date) with polysubstance unknown) dependence specifically cocaine and (unknown) (no (unknown) (unknown) ABD: Soft, NT/ND, (units (unknown) date) BT present in all 4 unknown) quadrants, no organomegaly or masses (unknown) (no (unknown) (unknown) ABG Base Excess (units (unknown) date) -3.0 L unknown) (unknown) (no (unknown) (unknown) ABG Base Excess (units (unknown) date) unknown) (unknown) (no (unknown) (unknown) ABG HCO3 23 (units (un known) date) unknown) (unknown) (no (unknown) (unknown) ABG HCO3 (units (unkno wn) date) unknown) (unknown) (no (unknown) (unknown) ABG O2 Saturation (units (unknown) date) 98 unknown) (unknown) (no (unknown) (unknown) ABG O2 Saturation (units (unknown) date) unknown) (unknown) (no (unknown) (unknown) ABG Total CO2 24 (units (unknown) date) unknown) (unknown) (no (unknown) (unknown) ABG Total CO2 (units ( unknown) date) unknown) (unknown) (no (unknown) (unknown) ABG pCO2 40.7 (units ( unknown) date) unknown) (unknown) (no (unknown) (unknown) ABG pCO2 (units (unkno wn) date) unknown) (unknown) (no (unknown) (unknown) ABG pH 7.36 (units (un known) date) unknown) (unknown) (no (unknown) (unknown) ABG pH (units (unkno wn) date) unknown) (unknown) (no (unknown) (unknown) ABG pO2 105 H (units ( unknown) date) unknown) (unknown) (no (unknown) (unknown) ABG pO2 (units (unkno wn) date) unknown) (unknown) (no (unknown) (unknown) ALT 32 (units (unkno wn) date) unknown) (unknown) (no (unknown) (unknown) ALT 35 H (units (unkno wn) date) unknown) (unknown) (no (unknown) (unknown) ALT (units (unkno wn) date) unknown) (unknown) (no (unknown) (unknown) AST 65 H (units (unkno wn) date) unknown) (unknown) (no (unknown) (unknown) AST 70 H (units (unkno wn) date) unknown) (unknown) (no (unknown) (unknown) AST (units (unkno wn) date) unknown) (unknown) (no (unknown) (unknown) Abscess (units (unkno wn) date) unknown) (unknown) (no (unknown) (unknown) Adenovirus (PCR) (units (unknown) date) Detected H unknown) (unknown) (no (unknown) (unknown) Adenovirus (PCR) (units (unknown) date) unknown) (unknown) (no (unknown) (unknown) Age/Sex: 46 / F (units (unknown) date) unknown) (unknown) (no (unknown) (unknown) Albumin 4.2 (units (un known) date) unknown) (unknown) (no (unknown) (unknown) Albumin (units (unkno wn) date) unknown) (unknown) (no (unknown) (unknown) Albumin/Globulin (units (unknown) date) Ratio 1.2 unknown) (unknown) (no (unknown) (unknown) Albumin/Globulin (units (unknown) date) Ratio unknown) (unknown) (no (unknown) (unknown) Alkaline (units (unkno wn) date) Phosphatase 74 unknown) (unknown) (no (unknown) (unknown) Alkaline (units (unkno wn) date) Phosphatase 78 unknown) (unknown) (no (unknown) (unknown) Alkaline (units (unkno wn) date) Phosphatase unknown) (unknown) (no (unknown) (unknown) Angioedema with (units (unknown) date) acute hypoxic unknown) respiratory failure (unknown) (no (unknown) (unknown) Anxiety (units (unkno wn) date) unknown) (unknown) (no (unknown) (unknown) Assessment + Plan (units (unknown) date) narrative: unknown) (unknown) (no (unknown) (unknown) Assessment + Plan (units (unknown) date) unknown) (unknown) (no (unknown) (unknown) B. pertussis DNA (units (unknown) date) (PCR) Not detected unknown) (unknown) (no (unknown) (unknown) B. pertussis DNA (units (unknown) date) (PCR) unknown) (unknown) (no (unknown) (unknown) B.parapertussis (units (unknown) date) DNA PCR Not unknown) detected (unknown) (no (unknown) (unknown) B.parapertussis (units (unknown) date) DNA PCR unknown) (unknown) (no (unknown) (unknown) BUN 11 (units (unkno wn) date) unknown) (unknown) (no (unknown) (unknown) BUN 7 (units (unkno wn) date) unknown) (unknown) (no (unknown) (unknown) BUN (units (unkno wn) date) unknown) (unknown) (no (unknown) (unknown) BUN/Creatinine (units (unknown) date) Ratio 12.6 unknown) (unknown) (no (unknown) (unknown) BUN/Creatinine (units (unknown) date) Ratio 9.7 unknown) (unknown) (no (unknown) (unknown) BUN/Creatinine (units (unknown) date) Ratio unknown) (unknown) (no (unknown) (unknown) Baso # (Auto) 0 (units (unknown) date) unknown) (unknown) (no (unknown) (unknown) Baso # (Auto) 100 (units (unknown) date) unknown) (unknown) (no (unknown) (unknown) Baso # (Auto) (units ( unknown) date) unknown) (unknown) (no (unknown) (unknown) Baso % (Auto) 0.4 (units (unknown) date) unknown) (unknown) (no (unknown) (unknown) Baso % (Auto) 0.5 (units (unknown) date) unknown) (unknown) (no (unknown) (unknown) Baso % (Auto) (units ( unknown) date) unknown) (unknown) (no (unknown) (unknown) Blood Pressure (units (unknown) date) 102/68 unknown) (unknown) (no (unknown) (unknown) Blood Pressure (units (unknown) date) 103/71 125/78 unknown) (unknown) (no (unknown) (unknown) Blood Pressure (units (unknown) date) 104/70 unknown) (unknown) (no (unknown) (unknown) Blood Pressure (units (unknown) date) 110/74 unknown) (unknown) (no (unknown) (unknown) Blood Pressure (units (unknown) date) 111/74 unknown) (unknown) (no (unknown) (unknown) Blood Pressure (units (unknown) date) 111/78 unknown) (unknown) (no (unknown) (unknown) Blood Pressure (units (unknown) date) 77/50 L 79/52 L unknown) (unknown) (no (unknown) (unknown) Blood Pressure (units (unknown) date) 77/51 L unknown) (unknown) (no (unknown) (unknown) Blood Pressure (units (unknown) date) 78/51 L unknown) (unknown) (no (unknown) (unknown) Blood Pressure (units (unknown) date) 79/50 L 90/55 L unknown) (unknown) (no (unknown) (unknown) Blood Pressure (units (unknown) date) 79/51 L 117/86 unknown) (unknown) (no (unknown) (unknown) Blood Pressure (units (unknown) date) 80/50 L 84/52 L unknown) (unknown) (no (unknown) (unknown) Blood Pressure (units (unknown) date) 80/52 L unknown) (unknown) (no (unknown) (unknown) Blood Pressure (units (unknown) date) 82/51 L unknown) (unknown) (no (unknown) (unknown) Blood Pressure (units (unknown) date) 83/51 L 80/52 L unknown) (unknown) (no (unknown) (unknown) Blood Pressure (units (unknown) date) 83/52 L unknown) (unknown) (no (unknown) (unknown) Blood Pressure (units (unknown) date) 86/58 L 86/58 L unknown) (unknown) (no (unknown) (unknown) Blood Pressure (units (unknown) date) 89/56 L 89/58 L unknown) (unknown) (no (unknown) (unknown) Blood Pressure (units (unknown) date) 91/58 L unknown) (unknown) (no (unknown) (unknown) Blood Pressure (units (unknown) date) 91/61 87/56 L unknown) (unknown) (no (unknown) (unknown) Blood Pressure (units (unknown) date) 92/62 94/62 unknown) (unknown) (no (unknown) (unknown) Blood Pressure (units (unknown) date) 93/62 89/60 L unknown) (unknown) (no (unknown) (unknown) Blood Pressure (units (unknown) date) 96/61 unknown) (unknown) (no (unknown) (unknown) Blood Pressure (units (unknown) date) 97/62 99/67 unknown) (unknown) (no (unknown) (unknown) Blood Pressure (units (unknown) date) unknown) (unknown) (no (unknown) (unknown) Blood Type O (units (u nknown) date) Positive unknown) (unknown) (no (unknown) (unknown) Blood Type (units (unk nown) date) unknown) (unknown) (no (unknown) (unknown) CHEST: Respiratory (units (unknown) date) excursions unknown) symmetric, CTAB (unknown) (no (unknown) (unknown) CV: RRR, no M/R/G (units (unknown) date) unknown) (unknown) (no (unknown) (unknown) Calcium 8.0 L (units ( unknown) date) unknown) (unknown) (no (unknown) (unknown) Calcium 8.5 (units (un known) date) unknown) (unknown) (no (unknown) (unknown) Calcium (units (unkno wn) date) unknown) (unknown) (no (unknown) (unknown) Carbon Dioxide 24 (units (unknown) date) unknown) (unknown) (no (unknown) (unknown) Carbon Dioxide 25 (units (unknown) date) unknown) (unknown) (no (unknown) (unknown) Carbon Dioxide (units (unknown) date) unknown) (unknown) (no (unknown) (unknown) Chlamy pneumoniae (units (unknown) date) PCR Not detected unknown) (unknown) (no (unknown) (unknown) Chlamy pneumoniae (units (unknown) date) PCR unknown) (unknown) (no (unknown) (unknown) Chloride 104 (units (u nknown) date) unknown) (unknown) (no (unknown) (unknown) Chloride 106 (units (u nknown) date) unknown) (unknown) (no (unknown) (unknown) Chloride (units (unkno wn) date) unknown) (unknown) (no (unknown) (unknown) Chronic abdominal (units (unknown) date) pain unknown) (unknown) (no (unknown) (unknown) Code status (units (un known) date) unknown) (unknown) (no (unknown) (unknown) Coronavirus 229E (units (unknown) date) (PCR) Not detected unknown) (unknown) (no (unknown) (unknown) Coronavirus 229E (units (unknown) date) (PCR) unknown) (unknown) (no (unknown) (unknown) Coronavirus HKU1 (units (unknown) date) (PCR) Not detected unknown) (unknown) (no (unknown) (unknown) Coronavirus HKU1 (units (unknown) date) (PCR) unknown) (unknown) (no (unknown) (unknown) Coronavirus NL63 (units (unknown) date) (PCR) Not detected unknown) (unknown) (no (unknown) (unknown) Coronavirus NL63 (units (unknown) date) (PCR) unknown) (unknown) (no (unknown) (unknown) Coronavirus OC43 (units (unknown) date) (PCR) Not detected unknown) (unknown) (no (unknown) (unknown) Coronavirus OC43 (units (unknown) date) (PCR) unknown) (unknown) (no (unknown) (unknown) Creatinine 0.72 (units (unknown) date) unknown) (unknown) (no (unknown) (unknown) Creatinine 0.87 (units (unknown) date) unknown) (unknown) (no (unknown) (unknown) Creatinine (units (unk nown) date) unknown) (unknown) (no (unknown) (unknown) Critical Care (units ( unknown) date) time: unknown) (unknown) (no (unknown) (unknown) Cyclic vomiting (units (unknown) date) syndrome unknown) (unknown) (no (unknown) (unknown) : 1975 (units (unknown) date) Acct:[id number] unknown) (unknown) (no (unknown) (unknown) Date Patient Seen: (units (unknown) date) 07/06/22 unknown) (unknown) (no (unknown) (unknown) Date of Service: (units (unknown) date) 07/05/22 unknown) (unknown) (no (unknown) (unknown) Daughter (units (unkno wn) date) Angio-edema unknown) (unknown) (no (unknown) (unknown) Deep Vein (units (unkn own) date) Thrombosis/Pulmonar unknown) y Embolism Present on Admission: No (unknown) (no (unknown) (unknown) Disposition (units (un known) date) unknown) (unknown) (no (unknown) (unknown) EXTR: warm, well (units (unknown) date) perfused, no C/C/E unknown) (unknown) (no (unknown) (unknown) Entero/Rhino (PCR) (units (unknown) date) Not detected unknown) (unknown) (no (unknown) (unknown) Entero/Rhino (PCR) (units (unknown) date) unknown) (unknown) (no (unknown) (unknown) Eos # (Auto) 0 (units (unknown) date) unknown) (unknown) (no (unknown) (unknown) Eos # (Auto) (units (u nknown) date) unknown) (unknown) (no (unknown) (unknown) Eos % (Auto) 0.0 L (units (unknown) date) unknown) (unknown) (no (unknown) (unknown) Eos % (Auto) 0.1 L (units (unknown) date) unknown) (unknown) (no [...] (unknown) Family History (units (unknown) date) (Reviewed 07/06/22 unknown) @ 06:11 by Leslie Torres MD) (unknown) (no (unknown) (unknown) Family history of (units (unknown) date) angioedema unknown) (unknown) (no (unknown) (unknown) Father (units (unkno wn) date) Hypertension unknown) (unknown) (no (unknown) (unknown) FiO2 30 (units (unkno wn) date) unknown) (unknown) (no (unknown) (unknown) FiO2 (units (unkno wn) date) unknown) (unknown) (no (unknown) (unknown) Full (units (unkno wn) date) unknown) (unknown) (no (unknown) (unknown) GEN: Sedated but (units (unknown) date) does open her eyes, unknown) no acute distress (unknown) (no (unknown) (unknown) Globulin 3.5 (units (u nknown) date) unknown) (unknown) (no (unknown) (unknown) Globulin (units (unkno wn) date) unknown) (unknown) (no (unknown) (unknown) Glucose 194 H D (units (unknown) date) unknown) (unknown) (no (unknown) (unknown) Glucose 296 H (units ( unknown) date) unknown) (unknown) (no (unknown) (unknown) Glucose (units (unkno wn) date) unknown) (unknown) (no (unknown) (unknown) HEENT:NC, left (units ( unknown) date) cheek and face unknown) reveal moderate swelling, tongue is protruding and (unknown) (no (unknown) (unknown) Hct 35.1 L (units (unk nown) date) unknown) (unknown) (no (unknown) (unknown) Hct 37.3 (units (unkno wn) date) unknown) (unknown) (no (unknown) (unknown) Hct (units (unkno wn) date) unknown) (unknown) (no (unknown) (unknown) Hemoglobin A1c 5.4 (units (unknown) date) unknown) (unknown) (no (unknown) (unknown) Hemoglobin A1c (units (unknown) date) unknown) (unknown) (no (unknown) (unknown) Hgb 11.7 L (units (unk nown) date) unknown) (unknown) (no (unknown) (unknown) Hgb 12.3 (units (unkno wn) date) unknown) (unknown) (no (unknown) (unknown) Hgb (units (unkno wn) date) unknown) (unknown) (no (unknown) (unknown) Holding her (units (un known) date) outpatient unknown) antihypertensive therapy. Blood pressure is normotensive (unknown) (no (unknown) (unknown) Human (units (unkno wn) date) Metapneumovir PCR unknown) Not detected (unknown) (no (unknown) (unknown) Human (units (unkno wn) date) Metapneumovir PCR unknown) (unknown) (no (unknown) (unknown) Hx of appendectomy (units (unknown) date) unknown) (unknown) (no (unknown) (unknown) Hx of (units (unkno wn) date) cholecystectomy unknown) (unknown) (no (unknown) (unknown) Hyperglycemia (units ( unknown) date) unknown) (unknown) (no (unknown) (unknown) Hypertension (units (u nknown) date) unknown) (unknown) (no (unknown) (unknown) Hypotension (units (un known) date) unknown) (unknown) (no (unknown) (unknown) I spent a total of (units (unknown) date) [] minutes of unknown) critical care time on this patient's care (unknown) (no (unknown) (unknown) Influenza Type A (units (unknown) date) (PCR) Not detected unknown) (unknown) (no (unknown) (unknown) Influenza Type A (units (unknown) date) (PCR) unknown) (unknown) (no (unknown) (unknown) Influenza Type B (units (unknown) date) (PCR) Not detected unknown) (unknown) (no (unknown) (unknown) Influenza Type B (units (unknown) date) (PCR) unknown) (unknown) (no (unknown) (unknown) Intensive care (units (unknown) date) unit unknown) (unknown) (no (unknown) (unknown) Interval history: (units (unknown) date) unknown) (unknown) (no (unknown) (unknown) [facility] (units (unknown) date) [address] unknown) [place] [address] (unknown) (no (unknown) (unknown) Laboratory Results (units (unknown) date) - last 24 hr unknown) (unknown) (no (unknown) (unknown) Labs (units (unkno wn) date) unknown) (unknown) (no (unknown) (unknown) Labs: (units (unkno wn) date) unknown) (unknown) (no (unknown) (unknown) Lymph # (Auto) 400 (units (unknown) date) L unknown) (unknown) (no (unknown) (unknown) Lymph # (Auto) (units (unknown) date) unknown) (unknown) (no (unknown) (unknown) Lymph % (Auto) 3.9 (units (unknown) date) L unknown) (unknown) (no (unknown) (unknown) Lymph % (Auto) 7.5 (units (unknown) date) L unknown) (unknown) (no (unknown) (unknown) Lymph % (Auto) (units (unknown) date) unknown) (unknown) (no (unknown) (unknown) M. pneumoniae (units ( unknown) date) (PCR) Not detected unknown) (unknown) (no (unknown) (unknown) M. pneumoniae (units ( unknown) date) (PCR) unknown) (unknown) (no (unknown) (unknown) MCH 31.3 (units (unkno wn) date) unknown) (unknown) (no (unknown) (unknown) MCH 31.5 (units (unkno wn) date) unknown) (unknown) (no (unknown) (unknown) MCH (units (unkno wn) date) unknown) (unknown) (no (unknown) (unknown) MCHC 33.0 (units (unkn own) date) unknown) (unknown) (no (unknown) (unknown) MCHC 33.3 (units (unkn own) date) unknown) (unknown) (no (unknown) (unknown) MCHC (units (unkno wn) date) unknown) (unknown) (no (unknown) (unknown) MCV 94.4 (units (unkno wn) date) unknown) (unknown) (no (unknown) (unknown) MCV 94.9 (units (unkno wn) date) unknown) (unknown) (no (unknown) (unknown) MCV (units (unkno wn) date) unknown) (unknown) (no (unknown) (unknown) 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 (unknown) (no (unknown) (unknown) Marijuana use, (units (unknown) date) continuous unknown) (unknown) (no (unknown) (unknown) Medical History (units (unknown) date) (Reviewed 07/06/22 unknown) @ 06:11 by Leslie Torres MD) (unknown) (no (unknown) (unknown) [place] # (Auto) 100 (units (unknown) date) unknown) (unknown) (no (unknown) (unknown) [place] # (Auto) 200 (units (unknown) date) unknown) (unknown) (no (unknown) (unknown) [place] # (Auto) (units ( unknown) date) unknown) (unknown) (no (unknown) (unknown) [place] % (Auto) 1.1 (units (unknown) date) L unknown) (unknown) (no (unknown) (unknown) [place] % (Auto) 2.7 (units (unknown) date) L unknown) (unknown) (no (unknown) (unknown) [place] % (Auto) (units ( unknown) date) unknown) (unknown) (no (unknown) (unknown) Mother Diabetes (units (unknown) date) mellitus unknown) (unknown) (no (unknown) (unknown) NEURO: Intubated, (units (unknown) date) sedated unknown) (unknown) (no (unknown) (unknown) Narrative (units (unkn own) date) unknown) (unknown) (no (unknown) (unknown) Nasal Screen MRSA (units (unknown) date) (PCR) Positive for unknown) mrsa H (unknown) (no (unknown) (unknown) Nasal Screen MRSA (units (unknown) date) (PCR) unknown) (unknown) (no (unknown) (unknown) Neut # (Auto) (units ( unknown) date) [address] H unknown) (unknown) (no (unknown) (unknown) Neut # (Auto) 5300 (units (unknown) date) unknown) (unknown) (no (unknown) (unknown) Neut # (Auto) (units ( unknown) date) unknown) (unknown) (no (unknown) (unknown) Neut % (Auto) 89.4 (units (unknown) date) H unknown) (unknown) (no (unknown) (unknown) Neut % (Auto) 94.4 (units (unknown) date) H unknown) (unknown) (no (unknown) (unknown) Neut % (Auto) (units ( unknown) date) unknown) (unknown) (no (unknown) (unknown) Objective (units (unkn own) date) unknown) (unknown) (no (unknown) (unknown) On Lovenox (units (unk nown) date) unknown) (unknown) (no (unknown) (unknown) On Wellbutrin on (units (unknown) date) an outpatient unknown) basis. This has been held (unknown) (no (unknown) (unknown) Other Colon cancer (units (unknown) date) unknown) (unknown) (no (unknown) (unknown) Oxygen Delivery (units (unknown) date) Method Mechanical unknown) Ventilation (unknown) (no (unknown) (unknown) Oxygen Delivery (units (unknown) date) Method Mechanical unknown) (unknown) (no (unknown) (unknown) Oxygen Delivery (units (unknown) date) Method unknown) (unknown) (no (unknown) (unknown) PFSH (units (unkno wn) date) unknown) (unknown) (no (unknown) (unknown) Pancreatitis (units (u nknown) date) unknown) (unknown) (no (unknown) (unknown) Parainfluenza 1 (units (unknown) date) (PCR) Not detected unknown) (unknown) (no (unknown) (unknown) Parainfluenza 1 (units (unknown) date) (PCR) unknown) (unknown) (no (unknown) (unknown) Parainfluenza 2 (units (unknown) date) (PCR) Not detected unknown) (unknown) (no (unknown) (unknown) Parainfluenza 2 (units (unknown) date) (PCR) unknown) (unknown) (no (unknown) (unknown) Parainfluenza 3 (units (unknown) date) (PCR) Not detected unknown) (unknown) (no (unknown) (unknown) Parainfluenza 3 (units (unknown) date) (PCR) unknown) (unknown) (no (unknown) (unknown) Parainfluenza 4 (units (unknown) date) (PCR) Not detected unknown) (unknown) (no (unknown) (unknown) Parainfluenza 4 (units (unknown) date) (PCR) unknown) (unknown) (no (unknown) (unknown) Patient evidently (units (unknown) date) has had previous unknown) presentations. Appreciate management per (unknown) (no (unknown) (unknown) Patient: (units (unkno wn) date) Dameon Caputo MR#: unknown) [id number] (unknown) (no (unknown) (unknown) Plt Count 227 (units ( unknown) date) unknown) (unknown) (no (unknown) (unknown) Plt Count 238 (units ( unknown) date) unknown) (unknown) (no (unknown) (unknown) Plt Count (units (unkn own) date) unknown) (unknown) (no (unknown) (unknown) Potassium 3.5 (units ( unknown) date) unknown) (unknown) (no (unknown) (unknown) Potassium 3.9 (units ( unknown) date) unknown) (unknown) (no (unknown) (unknown) Potassium (units (unkn own) date) unknown) (unknown) (no (unknown) (unknown) Progress Note (units ( unknown) date) unknown) (unknown) (no (unknown) (unknown) Prophylaxis (units (un known) date) unknown) (unknown) (no (unknown) (unknown) Provider: (units (unkn own) date) Charissa Cordova MD unknown) (unknown) (no (unknown) (unknown) Pulse Oximetry 100 (units (unknown) date) 100 unknown) (unknown) (no (unknown) (unknown) Pulse Oximetry 100 (units (unknown) date) unknown) (unknown) (no (unknown) (unknown) Pulse Oximetry 99 (units (unknown) date) 100 unknown) (unknown) (no (unknown) (unknown) Pulse Oximetry 99 (units (unknown) date) 98 unknown) (unknown) (no (unknown) (unknown) Pulse Oximetry 99 (units (unknown) date) 99 unknown) (unknown) (no (unknown) (unknown) Pulse Oximetry 99 (units (unknown) date) unknown) (unknown) (no (unknown) (unknown) Pulse Rate 68 68 (units (unknown) date) unknown) (unknown) (no (unknown) (unknown) Pulse Rate 68 (units ( unknown) date) unknown) (unknown) (no (unknown) (unknown) Pulse Rate 69 (units ( unknown) date) unknown) (unknown) (no (unknown) (unknown) Pulse Rate 71 70 (units (unknown) date) unknown) (unknown) (no (unknown) (unknown) Pulse Rate 72 (units ( unknown) date) unknown) (unknown) (no (unknown) (unknown) Pulse Rate 73 68 (units (unknown) date) unknown) (unknown) (no (unknown) (unknown) Pulse Rate 73 74 (units (unknown) date) unknown) (unknown) (no (unknown) (unknown) Pulse Rate 73 (units ( unknown) date) unknown) (unknown) (no (unknown) (unknown) Pulse Rate 74 (units ( unknown) date) unknown) (unknown) (no (unknown) (unknown) Pulse Rate 76 (units ( unknown) date) unknown) (unknown) (no (unknown) (unknown) Pulse Rate 79 78 (units (unknown) date) unknown) (unknown) (no (unknown) (unknown) Pulse Rate 79 85 (units (unknown) date) unknown) (unknown) (no (unknown) (unknown) Pulse Rate 79 (units ( unknown) date) unknown) (unknown) (no (unknown) (unknown) Pulse Rate 80 (units ( unknown) date) unknown) (unknown) (no (unknown) (unknown) Pulse Rate 81 80 (units (unknown) date) unknown) (unknown) (no (unknown) (unknown) Pulse Rate 81 82 (units (unknown) date) unknown) (unknown) (no (unknown) (unknown) Pulse Rate 81 (units ( unknown) date) unknown) (unknown) (no (unknown) (unknown) Pulse Rate 82 80 (units (unknown) date) unknown) (unknown) (no (unknown) (unknown) Pulse Rate 83 83 (units (unknown) date) unknown) (unknown) (no (unknown) (unknown) Pulse Rate 84 84 (units (unknown) date) unknown) (unknown) (no (unknown) (unknown) Pulse Rate 84 (units ( unknown) date) unknown) (unknown) (no (unknown) (unknown) Quality (units (unkno wn) date) unknown) (unknown) (no (unknown) (unknown) RBC 3.71 L (units (unk nown) date) unknown) (unknown) (no (unknown) (unknown) RBC 3.93 L (units (unk nown) date) unknown) (unknown) (no (unknown) (unknown) RBC (units (unkno wn) date) unknown) (unknown) (no (unknown) (unknown) RDW 13.2 (units (unkno wn) date) unknown) (unknown) (no (unknown) (unknown) RDW (units (unkno wn) date) unknown) (unknown) (no (unknown) (unknown) RSV (PCR) Not (units ( unknown) date) detected unknown) (unknown) (no (unknown) (unknown) RSV (PCR) (units (unkn own) date) unknown) (unknown) (no (unknown) (unknown) Resolved (units (unkno wn) date) unknown) (unknown) (no (unknown) (unknown) Respiratory Rate (units (unknown) date) 16 16 unknown) (unknown) (no (unknown) (unknown) Respiratory Rate (units (unknown) date) 16 18 unknown) (unknown) (no (unknown) (unknown) Respiratory Rate (units (unknown) date) 16 unknown) (unknown) (no (unknown) (unknown) Respiratory Rate (units (unknown) date) 17 16 unknown) (unknown) (no (unknown) (unknown) Respiratory Rate (units (unknown) date) 17 unknown) (unknown) (no (unknown) (unknown) Respiratory Rate (units (unknown) date) 18 unknown) (unknown) (no (unknown) (unknown) Respiratory Rate (units (unknown) date) 21 16 unknown) (unknown) (no (unknown) (unknown) Respiratory Rate (units (unknown) date) 23 16 unknown) (unknown) (no (unknown) (unknown) Respiratory Rate (units (unknown) date) 24 14 unknown) (unknown) (no (unknown) (unknown) Respiratory Rate (units (unknown) date) 27 H 17 unknown) (unknown) (no (unknown) (unknown) Respiratory Rate (units (unknown) date) 27 H unknown) (unknown) (no (unknown) (unknown) Result Diagrams: (units (unknown) date) unknown) (unknown) (no (unknown) (unknown) SARS-CoV-2 (PCR) (units (unknown) date) Not detected unknown) (unknown) (no (unknown) (unknown) SARS-CoV-2 (PCR) (units (unknown) date) unknown) (unknown) (no (unknown) (unknown) SKIN: warm and (units (unknown) date) dry, no rash unknown) (unknown) (no (unknown) (unknown) Signed (units (unkno wn) date) By:<Electronically unknown) signed by Charissa Cordova MD> (unknown) (no (unknown) (unknown) Smoking Status: (units (unknown) date) Current every day unknown) smoker (unknown) (no (unknown) (unknown) Social History (units (unknown) date) (Reviewed 07/06/22 unknown) @ 06:11 by Leslie Torres MD) (unknown) (no (unknown) (unknown) Sodium 142 (units (unk nown) date) unknown) (unknown) (no (unknown) (unknown) Sodium 143 (units (unk nown) date) unknown) (unknown) (no (unknown) (unknown) Sodium (units (unkno wn) date) unknown) (unknown) (no (unknown) (unknown) Still A1c is 5.4%, (units (unknown) date) hyperglycemia is unknown) likely stress induced. (unknown) (no (unknown) (unknown) Subjective (units (unk nown) date) unknown) (unknown) (no (unknown) (unknown) Surgical History (units (unknown) date) (Reviewed 07/06/22 unknown) @ 06:11 by Leslie Torres MD) (unknown) (no (unknown) (unknown) Temperature 96.4 F (units (unknown) date) L unknown) (unknown) (no (unknown) (unknown) Temperature 98.7 F (units (unknown) date) unknown) (unknown) (no (unknown) (unknown) Temperature (units (un known) date) unknown) (unknown) (no (unknown) (unknown) Time Spent With (units (unknown) date) Patient unknown) (unknown) (no (unknown) (unknown) Total Bilirubin (units (unknown) date) 0.5 unknown) (unknown) (no (unknown) (unknown) Total Bilirubin (units (unknown) date) 0.6 unknown) (unknown) (no (unknown) (unknown) Total Bilirubin (units (unknown) date) unknown) (unknown) (no (unknown) (unknown) Total Protein 7.7 (units (unknown) date) unknown) (unknown) (no (unknown) (unknown) Total Protein (units ( unknown) date) unknown) (unknown) (no (unknown) (unknown) U [...] Screen unknown) (unknown) (no (unknown) (unknown) Ur Culture (units (unk nown) date) Indicated? Cult not unknown) indicated (unknown) (no (unknown) (unknown) Ur Culture (units (unk nown) date) Indicated? unknown) (unknown) (no (unknown) (unknown) Ur Leukocyte (units (u nknown) date) Esterase Negative unknown) (unknown) (no (unknown) (unknown) Ur Leukocyte (units (u nknown) date) Esterase unknown) (unknown) (no (unknown) (unknown) Ur MDMA [...] Scrn unknown) (unknown) (no (unknown) (unknown) Ur Specific (units (un known) date) [place] 1.010 unknown) (unknown) (no (unknown) (unknown) Ur Specific (units (un known) date) [place] unknown) (unknown) (no (unknown) (unknown) Ur Squamous Epith (units (unknown) date) Cells 0-1 /hpf unknown) (unknown) (no (unknown) (unknown) Ur Squamous Epith (units (unknown) date) Cells unknown) (unknown) (no (unknown) (unknown) Ur Transition (units ( unknown) date) Epith Cell 0-1/hpf unknown) (unknown) (no (unknown) (unknown) Ur Transition (units ( unknown) date) Epith Cell unknown) (unknown) (no (unknown) (unknown) Urine Appearance (units (unknown) date) Clear unknown) (unknown) (no (unknown) (unknown) Urine Appearance (units (unknown) date) unknown) (unknown) (no (unknown) (unknown) Urine Bacteria (units (unknown) date) None seen unknown) (unknown) (no (unknown) (unknown) Urine Bacteria (units (unknown) date) unknown) (unknown) (no (unknown) (unknown) Urine Bilirubin (units (unknown) date) Negative unknown) (unknown) (no (unknown) (unknown) Urine Bilirubin (units (unknown) date) unknown) (unknown) (no (unknown) (unknown) Urine Cocaine (units ( unknown) date) Screen Negative unknown) (unknown) (no (unknown) (unknown) Urine Cocaine (units ( unknown) date) Screen unknown) (unknown) (no (unknown) (unknown) Urine Color Yellow (units (unknown) date) unknown) (unknown) (no (unknown) (unknown) Urine Color (units (un known) date) unknown) (unknown) (no (unknown) (unknown) Urine Glucose (UA) (units (unknown) date) 1+ H unknown) (unknown) (no (unknown) (unknown) Urine Glucose (UA) (units (unknown) date) unknown) (unknown) (no (unknown) (unknown) Urine Ketones (units ( unknown) date) Negative unknown) (unknown) (no (unknown) (unknown) Urine Ketones (units ( unknown) date) unknown) (unknown) (no (unknown) (unknown) Urine Methadone (units (unknown) date) Screen Negative unknown) (unknown) (no (unknown) (unknown) Urine Methadone (units (unknown) date) Screen unknown) (unknown) (no (unknown) (unknown) Urine Nitrate (units ( unknown) date) Negative unknown) (unknown) (no (unknown) (unknown) Urine Nitrate (units ( unknown) date) unknown) (unknown) (no (unknown) (unknown) Urine Occult Blood (units (unknown) date) Trace-lysed unknown) (unknown) (no (unknown) (unknown) Urine Occult Blood (units (unknown) date) unknown) (unknown) (no (unknown) (unknown) Urine Protein 1+ H (units (unknown) date) unknown) (unknown) [...] unknown) (unknown) (no (unknown) (unknown) Urine WBC None (units (unknown) date) seen unknown) (unknown) (no (unknown) (unknown) Urine WBC (units (unkn own) date) unknown) (unknown) (no (unknown) (unknown) Urine pH 7.0 (units (u nknown) date) unknown) (unknown) (no (unknown) (unknown) Urine pH (units (unkno wn) date) unknown) (unknown) (no (unknown) (unknown) VTE (units (unkno wn) date) unknown) (unknown) (no (unknown) (unknown) Ventilation (units (un known) date) unknown) (unknown) (no (unknown) (unknown) Vital Signs (units (un known) date) unknown) (unknown) (no (unknown) (unknown) WBC 11.1 H (units (unk nown) date) unknown) (unknown) (no (unknown) (unknown) WBC 5.9 (units (unkno wn) date) unknown) (unknown) (no (unknown) (unknown) WBC (units (unkno wn) date) unknown) (unknown) (no (unknown) (unknown) [Embedded Image (units (unknown) date) Not Available] unknown) (unknown) (no (unknown) (unknown) alcohol intake: (units (unknown) date) current unknown) (unknown) (no (unknown) (unknown) also significantly (units (unknown) date) swollen there is an unknown) abrasion noted to the tip of the tongue (unknown) (no (unknown) (unknown) dexamethasone, (units (unknown) date) famotidine. unknown) (unknown) (no (unknown) (unknown) difficulties and (units (unknown) date) was not able to unknown) attend to rounds at the designated time. (unknown) (no (unknown) (unknown) household members: (units (unknown) date) spouse unknown) (unknown) (no (unknown) (unknown) intubation/mechani (units (unknown) date) abbie ventilation for unknown) airway protection. Patient remained (unknown) (no (unknown) (unknown) marijuana who was (units (unknown) date) admitted last unknown) evening with recurrent angioedema requiring (unknown) (no (unknown) (unknown) no new changes (units (unknown) date) overnight. Still unknown) therapy assistant has been having technical (unknown) (no (unknown) (unknown) sedated, but (units (u nknown) date) awake. She does not unknown) respond to questions at this time. RN reports (unknown) (no (unknown) (unknown) tele therapy assistant. (units (unknown) date) She remains unknown) intubated and sedated. She continues to have (unknown) (no (unknown) (unknown) today; this time (units (unknown) date) is exclusive of unknown) procedural time. (unknown) (no (unknown) (unknown) very significant (units (unknown) date) lip tongue and unknown) cheek swelling. Continues diphenhydramine, Result panel 681 (unknown) (no date) (unknown) (unknown) (no value) (units (un known) unknown) (unknown) (no date) (unknown) (unknown) <25 Squamous (units ( unknown) Epithelial unknown) Cells/LPF, Acceptable (unknown) (no date) (unknown) (unknown) Occasional WBC (units (unknown) seen unknown) Result panel 682 (unknown) (no (unknown) (unknown) (no value) (units (unk nown) date) unknown) (unknown) (no (unknown) (unknown) [id number] (units (unkno wn) date) unknown) (unknown) (no (unknown) (unknown) :: (units (unkno wn) date) unknown) (unknown) (no (unknown) (unknown) Age/Sex: 46 / F (units (unknown) date) unknown) (unknown) (no (unknown) (unknown) BP improved, (units (u nknown) date) adeqaute urineoutput unknown) (unknown) (no (unknown) (unknown) : 1975 (units (unknown) date) Acct:[id number] unknown) (unknown) (no (unknown) (unknown) Date Patient Seen: (units (unknown) date) 07/06/22 unknown) (unknown) (no (unknown) (unknown) Date of Service: (units (unknown) date) 07/05/22 unknown) (unknown) (no (unknown) (unknown) ICU (units (unkno wn) date) Multidisciplinary unknown) Rounds (unknown) (no (unknown) (unknown) [facility] (units (unknown) date) [address] unknown) [place] [id number] (unknown) (no (unknown) (unknown) Note: (units (unkno wn) date) unknown) (unknown) (no (unknown) (unknown) Patient: (units (unkno wn) date) Dameon Caputo MR#: unknown) M0002 (unknown) (no (unknown) (unknown) Provider: James (units (unknown) date) Sharon unknown) (unknown) (no (unknown) (unknown) Signed By: (units (unk nown) date) unknown) (unknown) (no (unknown) (unknown) This patient was (units (unknown) date) seen via real time unknown) interactive two-way audiovisual (unknown) (no (unknown) (unknown) Time Patient Seen: (units (unknown) date) 20:40 unknown) (unknown) (no (unknown) (unknown) echo (units (unkno wn) date) unknown) (unknown) (no (unknown) (unknown) remains vented and (units (unknown) date) on pressors unknown) (unknown) (no (unknown) (unknown) telecommunication. (units (unknown) date) unknown) Result panel 683 (unknown) (no (unknown) (unknown) (no value) (units (unk nown) date) unknown) (unknown) (no (unknown) (unknown) 07/06/222045 (units ( unknown) date) unknown) (unknown) (no (unknown) (unknown) [id number] (units (unkno wn) date) unknown) (unknown) (no (unknown) (unknown) :: (units (unkno wn) date) unknown) (unknown) (no (unknown) (unknown) Age/Sex: 46 / F (units (unknown) date) unknown) (unknown) (no (unknown) (unknown) BP improved, (units (u nknown) date) adequate urine unknown) output (unknown) (no (unknown) (unknown) : 1975 (units (unknown) date) Acct:[id number] unknown) (unknown) (no (unknown) (unknown) Date Patient Seen: (units (unknown) date) 07/06/22 unknown) (unknown) (no (unknown) (unknown) Date of Service: (units (unknown) date) 07/05/22 unknown) (unknown) (no (unknown) (unknown) ICU (units (unkno wn) date) Multidisciplinary unknown) Rounds (unknown) (no (unknown) (unknown) [facility] (units (unknown) date) [address] unknown) [place] [address] (unknown) (no (unknown) (unknown) Note: (units (unkno wn) date) unknown) (unknown) (no (unknown) (unknown) Patient: (units (unkno wn) date) Dameon Caputo MR#: unknown) M0002 (unknown) (no (unknown) (unknown) Provider: James (units (unknown) date) Sharon unknown) (unknown) (no (unknown) (unknown) Signed (units (unkno wn) date) By:<Electronically unknown) signed by James Herrera> (unknown) (no (unknown) (unknown) This patient was (units (unknown) date) seen via real time unknown) interactive two-way audiovisual (unknown) (no (unknown) (unknown) Time Patient Seen: (units (unknown) date) 20:40 unknown) (unknown) (no (unknown) (unknown) check cadiac (units (u nknown) date) markers unknown) (unknown) (no (unknown) (unknown) consider cardio (units (unknown) date) eval unknown) (unknown) (no (unknown) (unknown) continue gentle (units (unknown) date) hydration, monitor unknown) for overload (unknown) (no (unknown) (unknown) echo ef 35%, new (units (unknown) date) unknown) (unknown) (no (unknown) (unknown) ekg with non (units (u nknown) date) specific changes unknown) (unknown) (no (unknown) (unknown) remains vented and (units (unknown) date) on pressors unknown) (unknown) (no (unknown) (unknown) telecommunication. (units (unknown) date) unknown) Result panel 684 (unknown) (no date) (unknown) (unknown) 258 u/l (unkn own) Result panel 685 (unknown) (no date) (unknown) (unknown) 14.60 ng/ml (unkn own) (unknown) (no date) (unknown) (unknown) 258 u/l (unkn own) (unknown) (no date) (unknown) (unknown) 5.7 % (unkn own) Result panel 686 (unknown) (no date) (unknown) (unknown) 14.60 ng/ml (unkn own) (unknown) (no date) (unknown) (unknown) 258 u/l (unkn own) (unknown) (no date) (unknown) (unknown) 5.7 % (unkn own) (unknown) (no date) (unknown) (unknown) 6.810 ng/ml (unkn own) (unknown) (no date) (unknown) (unknown) 6.810 ng/ml (unkn own) Result panel 687 (unknown) (no date) (unknown) (unknown) (no value) (units (un known) unknown) (unknown) (no date) (unknown) (unknown) [id number] (units (unkn own) unknown) (unknown) (no date) (unknown) (unknown) Age/Sex: 46 / (units (unknown) F unknown) (unknown) (no date) (unknown) (unknown) : (units (unkn own) 1975 unknown) Acct:[id number] (unknown) (no date) (unknown) (unknown) Date of (units (unkn own) Service: unknown) 07/05/22 (unknown) (no date) (unknown) (unknown) Event Note (units (un known) (Rapid unknown) Response, Code, or fall): (unknown) (no date) (unknown) (unknown) Event Note (units (un known) unknown) (unknown) (no date) (unknown) (unknown) [facility] (unkn own[facility] [address] unknown) [address] [place] [address] (unknown) (no date) (unknown) (unknown) Notified by RN (units (unknown) and Dr. Alonso unknown) about troponin 6.8. Recommend stopping (unknown) (no date) (unknown) (unknown) Patient: (units (unkn own) Dameon Caputo unknown) MR#: [id number] (unknown) (no date) (unknown) (unknown) Provider: (units (unk nown) Paige [place] MD unknown) (unknown) (no date) (unknown) (unknown) Signed By: (units (un known) unknown) (unknown) (no date) (unknown) (unknown) epinephrine (units (u nknown) gtt and start unknown) heparin gtt per ACS protocol. Continue trending (unknown) (no date) (unknown) (unknown) troponin X 3 (units ( unknown) and unknown) Result panel 688 (unknown) (no date) (unknown) (unknown) (no value) (units (un known) unknown) (unknown) (no date) (unknown) (unknown) 07/06/22 2258 (units (unknown) unknown) (unknown) (no date) (unknown) (unknown) [address]10[address] (units (unkn own) unknown) (unknown) (no date) (unknown) (unknown) Age/Sex: 46 / (units (unknown) F unknown) (unknown) (no date) (unknown) (unknown) Continue (units (unkn own) trending unknown) troponin X 3 and recommend transfer to tertiary care for C. (unknown) (no date) (unknown) (unknown) D/w (units (unkn own) [place]. unknown) (unknown) (no date) (unknown) (unknown) : (units (unkn own) 1975 unknown) Acct:[id number] (unknown) (no date) (unknown) (unknown) Date of (units (unkn own) Service: unknown) 07/05/22 (unknown) (no date) (unknown) (unknown) Event Note (units (un known) (Rapid unknown) Response, Code, or fall): (unknown) (no date) (unknown) (unknown) Event Note (units (un known) unknown) (unknown) (no date) (unknown) (unknown) [facility] (units (unkn own) [place] [address] unknown) [address] [place] [address] (unknown) (no date) (unknown) (unknown) Notified by RN (units (unknown) and Dr. Alonso unknown) about troponin 6.8. Recommend stopping (unknown) (no date) (unknown) (unknown) Patient: (units (unkn own) Dameon Caputo unknown) MR#: [id number] (unknown) (no date) (unknown) (unknown) Provider: (units (unk nown) Paige Ramos MD unknown) (unknown) (no date) (unknown) (unknown) Signed (units (unkn own) By:<Electronica unknown) lly signed by Paige Ramos MD> (unknown) (no date) (unknown) (unknown) epinephrine (units (u nknown) gtt and start unknown) heparin gtt per ACS protocol. Start ASA and lipitor. Result panel 689 (unknown) (no date) (unknown) (unknown) 26 seconds (unkn own) (unknown) (no date) (unknown) (unknown) 26 seconds (unkn own) Result panel 690 (unknown) (no date) (unknown) (unknown) 0 /ul (unkn own) (unknown) (no date) (unknown) (unknown) 0 /ul (unkn own) (unknown) (no date) (unknown) (unknown) 0.3 % (unkn own) (unknown) (no date) (unknown) (unknown) 0.3 % (unkn own) (unknown) (no date) (unknown) (unknown) 10.3 x10 3/ul (unkn own) (unknown) (no date) (unknown) (unknown) 10.3 x10 3/ul (unkn own) (unknown) (no date) (unknown) (unknown) 11.0 % (unkn own) (unknown) (no date) (unknown) (unknown) 1100 /ul (unkn own) (unknown) (no date) (unknown) (unknown) 12.5 g/dl (unkn own) (unknown) (no date) (unknown) (unknown) 13.2 % (unkn own) (unknown) (no date) (unknown) (unknown) 229 x10 3/ul (unkn own) (unknown) (no date) (unknown) (unknown) 31.2 pg (unkn own) (unknown) (no date) (unknown) (unknown) 33.1 % (unkn own) (unknown) (no date) (unknown) (unknown) 37.7 % (unkn own) (unknown) (no date) (unknown) (unknown) 4.00 x10 6/ul (unkn own) (unknown) (no date) (unknown) (unknown) 6.5 % (unkn own) (unknown) (no date) (unknown) (unknown) 700 /ul (unkn own) (unknown) (no date) (unknown) (unknown) 81.9 % (unkn own) (unknown) (no date) (unknown) (unknown) 8500 /ul (unkn own) (unknown) (no date) (unknown) (unknown) 94.4 fl (unkn own) Result panel 691 (unknown) (no date) (unknown) (unknown) > 60 ml/min (unkn own) (unknown) (no date) (unknown) (unknown) > 60 ml/min (unkn own) (unknown) (no date) (unknown) (unknown) 0.5 mg/dl (unkn own) (unknown) (no date) (unknown) (unknown) 0.79 mg/dl (unkn own) (unknown) (no date) (unknown) (unknown) 1.1 (units unknown) (unknown) (unknown) (no date) (unknown) (unknown) 103 mmol/l (unkn own) (unknown) (no date) (unknown) (unknown) 137 mmol/l (unkn own) (unknown) (no date) (unknown) (unknown) 137 mmol/l (unkn own) (unknown) (no date) (unknown) (unknown) 155 mg/dl (unkn own) (unknown) (no date) (unknown) (unknown) 155 mg/dl (unkn own) (unknown) (no date) (unknown) (unknown) 16 mg/dl (unkn own) (unknown) (no date) (unknown) (unknown) 20.3 (units unknown) (unknown) (unknown) (no date) (unknown) (unknown) 27 mmol/l (unkn own) (unknown) (no date) (unknown) (unknown) 3.1 g/dl (unkn own) (unknown) (no date) (unknown) (unknown) 3.5 g/dl (unkn own) (unknown) (no date) (unknown) (unknown) 32 iu/l (unkn own) (unknown) (no date) (unknown) (unknown) 4.8 mmol/l (unkn own) (unknown) (no date) (unknown) (unknown) 4.8 mmol/l (unkn own) (unknown) (no date) (unknown) (unknown) 47 u/l (unkn own) (unknown) (no date) (unknown) (unknown) 6.6 g/dl (unkn own) (unknown) (no date) (unknown) (unknown) 62 iu/l (unkn own) (unknown) (no date) (unknown) (unknown) 62 iu/l (unkn own) (unknown) (no date) (unknown) (unknown) 8.5 mg/dl (unkn own) Result panel 692 (unknown) (no date) (unknown) (unknown) 11.30 ng/ml (unkn own) (unknown) (no date) (unknown) (unknown) 244 u/l (unkn own) (unknown) (no date) (unknown) (unknown) 244 u/l (unkn own) (unknown) (no date) (unknown) (unknown) 4.6 % (unkn own) (unknown) (no date) (unknown) (unknown) 5.560 ng/ml (unkn own) (unknown) (no date) (unknown) (unknown) 5.560 ng/ml (unkn own) Result panel 693 (unknown) (no (unknown) (unknown) (no value) (units (unk nown) date) unknown) (unknown) (no (unknown) (unknown) (past 8 hours): (units (unknown) date) unknown) (unknown) (no (unknown) (unknown) 00:00 07/07/22 (units (unknown) date) unknown) (unknown) (no (unknown) (unknown) 00:00 (units (unkno wn) date) unknown) (unknown) (no (unknown) (unknown) 01:00 07/07/22 (units (unknown) date) unknown) (unknown) (no (unknown) (unknown) 01:20 01:20 01:20 (units (unknown) date) unknown) (unknown) (no (unknown) (unknown) 02:00 07/07/22 (units (unknown) date) unknown) (unknown) (no (unknown) (unknown) 02:00 (units (unkno wn) date) unknown) (unknown) (no (unknown) (unknown) 03:30 07/07/22 (units (unknown) date) unknown) (unknown) (no (unknown) (unknown) 04:00 (units (unkno wn) date) unknown) (unknown) (no (unknown) (unknown) 07/05/22 07/06/22 (units (unknown) date) 07/06/22 unknown) (unknown) (no (unknown) (unknown) 07/06/22 07/06/22 (units (unknown) date) 07/06/22 unknown) (unknown) (no (unknown) (unknown) 07/06/22 (units (unkno wn) date) unknown) (unknown) (no (unknown) (unknown) 07/07/22 01:20 (units (unknown) date) unknown) (unknown) (no (unknown) (unknown) 07/07/22 07/07/22 (units (unknown) date) 07/07/22 unknown) (unknown) (no (unknown) (unknown) 07/07/22 (units (unkno wn) date) unknown) (unknown) (no (unknown) (unknown) 15:19 21:30 23:10 (units (unknown) date) unknown) (unknown) (no (unknown) (unknown) 22:00 07/06/22 (units (unknown) date) unknown) (unknown) (no (unknown) (unknown) 22:56 04:45 04:45 (units (unknown) date) unknown) (unknown) (no (unknown) (unknown) 23:00 07/07/22 (units (unknown) date) unknown) (unknown) (no (unknown) (unknown) [id number] (units (unkno wn) date) unknown) (unknown) (no (unknown) (unknown) 46-year-old (units (un known) date) female with unknown) polysubstance dependence specifically cocaine and (unknown) (no (unknown) (unknown) ABG Base Excess (units (unknown) date) -3.0 L unknown) (unknown) (no (unknown) (unknown) ABG Base Excess (units (unknown) date) unknown) (unknown) (no (unknown) (unknown) ABG HCO3 23 (units (un known) date) unknown) (unknown) (no (unknown) (unknown) ABG HCO3 (units (unkno wn) date) unknown) (unknown) (no (unknown) (unknown) ABG O2 Saturation (units (unknown) date) 98 unknown) (unknown) (no (unknown) (unknown) ABG O2 Saturation (units (unknown) date) unknown) (unknown) (no (unknown) (unknown) ABG Total CO2 24 (units (unknown) date) unknown) (unknown) (no (unknown) (unknown) ABG Total CO2 (units ( unknown) date) unknown) (unknown) (no (unknown) (unknown) ABG pCO2 40.7 (units ( unknown) date) unknown) (unknown) (no (unknown) (unknown) ABG pCO2 (units (unkno wn) date) unknown) (unknown) (no (unknown) (unknown) ABG pH 7.36 (units (un known) date) unknown) (unknown) (no (unknown) (unknown) ABG pH (units (unkno wn) date) unknown) (unknown) (no (unknown) (unknown) ABG pO2 105 H (units ( unknown) date) unknown) (unknown) (no (unknown) (unknown) ABG pO2 (units (unkno wn) date) unknown) (unknown) (no (unknown) (unknown) ALT 32 (units (unkno wn) date) unknown) (unknown) (no (unknown) (unknown) ALT 35 H (units (unkno wn) date) unknown) (unknown) (no (unknown) (unknown) ALT (units (unkno wn) date) unknown) (unknown) (no (unknown) (unknown) APTT 26 (units (unkno wn) date) unknown) (unknown) (no (unknown) (unknown) APTT (units (unkno wn) date) unknown) (unknown) (no (unknown) (unknown) AST 62 H (units (unkno wn) date) unknown) (unknown) (no (unknown) (unknown) AST 70 H (units (unkno wn) date) unknown) (unknown) (no (unknown) (unknown) AST (units (unkno wn) date) unknown) (unknown) (no (unknown) (unknown) Abscess (units (unkno wn) date) unknown) (unknown) (no (unknown) (unknown) Age/Sex: 46 / F (units (unknown) date) unknown) (unknown) (no (unknown) (unknown) Albumin 3.5 (units (un known) date) unknown) (unknown) (no (unknown) (unknown) Albumin 4.2 (units (un known) date) unknown) (unknown) (no (unknown) (unknown) Albumin (units (unkno wn) date) unknown) (unknown) (no (unknown) (unknown) Albumin/Globulin (units (unknown) date) Ratio 1.1 unknown) (unknown) (no (unknown) (unknown) Albumin/Globulin (units (unknown) date) Ratio 1.2 unknown) (unknown) (no (unknown) (unknown) Albumin/Globulin (units (unknown) date) Ratio unknown) (unknown) (no (unknown) (unknown) Alkaline (units (unkno wn) date) Phosphatase 47 unknown) (unknown) (no (unknown) (unknown) Alkaline (units (unkno wn) date) Phosphatase 74 unknown) (unknown) (no (unknown) (unknown) Alkaline (units (unkno wn) date) Phosphatase unknown) (unknown) (no (unknown) (unknown) Assessment + Plan (units (unknown) date) unknown) (unknown) (no (unknown) (unknown) BUN 11 (units (unkno wn) date) unknown) (unknown) (no (unknown) (unknown) BUN 16 (units (unkno wn) date) unknown) (unknown) (no (unknown) (unknown) BUN (units (unkno wn) date) unknown) (unknown) (no (unknown) (unknown) BUN/Creatinine (units (unknown) date) Ratio 12.6 unknown) (unknown) (no (unknown) (unknown) BUN/Creatinine (units (unknown) date) Ratio 20.3 unknown) (unknown) (no (unknown) (unknown) BUN/Creatinine (units [...] (unknown) (unknown) Blood Pressure (units (unknown) date) 101/77 105/70 unknown) (unknown) (no (unknown) (unknown) Blood Pressure (units (unknown) date) 114/79 111/79 unknown) 111/82 (unknown) (no (unknown) (unknown) Blood Pressure (units (unknown) date) 124/89 unknown) (unknown) (no (unknown) (unknown) CK-MB (CK-2) (units (u nknown) date) 11.30 H unknown) (unknown) (no (unknown) (unknown) CK-MB (CK-2) (units (u nknown) date) 14.60 H unknown) (unknown) (no (unknown) (unknown) CK-MB (CK-2) Rel (units (unknown) date) Index 4.6 unknown) (unknown) (no (unknown) (unknown) CK-MB (CK-2) Rel (units (unknown) date) Index 5.7 H unknown) (unknown) (no (unknown) (unknown) CK-MB (CK-2) Rel (units (unknown) date) Index unknown) (unknown) (no (unknown) (unknown) CK-MB (CK-2) (units (u nknown) date) unknown) (unknown) (no (unknown) (unknown) Calcium 8.5 (units (un known) date) unknown) (unknown) (no (unknown) (unknown) Calcium (units (unkno wn) date) unknown) (unknown) (no (unknown) (unknown) Carbon Dioxide 25 (units (unknown) date) unknown) (unknown) (no (unknown) (unknown) Carbon Dioxide 27 (units (unknown) date) unknown) (unknown) (no (unknown) (unknown) Carbon Dioxide (units (unknown) date) unknown) (unknown) (no (unknown) (unknown) Chloride 103 (units (u nknown) date) unknown) (unknown) (no (unknown) (unknown) Chloride 104 (units (u nknown) date) unknown) (unknown) (no (unknown) (unknown) Chloride (units (unkno wn) date) unknown) (unknown) (no (unknown) (unknown) Chronic abdominal (units (unknown) date) pain unknown) (unknown) (no (unknown) (unknown) Creatinine 0.79 (units (unknown) date) unknown) (unknown) (no (unknown) (unknown) Creatinine 0.87 (units (unknown) date) unknown) (unknown) (no (unknown) (unknown) Creatinine (units (unk nown) date) unknown) (unknown) (no (unknown) (unknown) Critical Care (units ( unknown) date) time: unknown) (unknown) (no (unknown) (unknown) Cyclic vomiting (units (unknown) date) syndrome unknown) (unknown) (no (unknown) (unknown) : 1975 (units (unknown) date) Acct:[id number] unknown) (unknown) (no (unknown) (unknown) Date of Service: (units (unknown) date) 07/05/22 unknown) (unknown) (no (unknown) (unknown) Daughter (units (unkno wn) date) Angio-edema unknown) (unknown) (no (unknown) (unknown) Deep Vein (units (unkn own) date) Thrombosis/Pulmona unknown) ry Embolism Present on Admission: No (unknown) (no (unknown) (unknown) Echocardiogram (units (unknown) date) performed unknown) yesterday showed new reduced EF, per on-call (unknown) (no (unknown) (unknown) Eos # (Auto) 0 (units (unknown) date) unknown) (unknown) (no (unknown) (unknown) Eos # (Auto) (units (u nknown) date) unknown) (unknown) (no (unknown) (unknown) Eos % (Auto) 0.0 (units (unknown) date) L unknown) (unknown) (no (unknown) (unknown) Eos % (Auto) 0.3 (units (unknown) date) L unknown) (unknown) (no (unknown) (unknown) Eos % (Auto) (units (u nknown) date) unknown) (unknown) (no (unknown) (unknown) Estimated GFR > (units (unknown) date) 60 unknown) (unknown) (no (unknown) (unknown) Estimated GFR (units ( unknown) date) unknown) (unknown) (no (unknown) (unknown) Exam (units (unkno wn) date) unknown) (unknown) (no (unknown) (unknown) Family History (units (unknown) date) (Reviewed 07/06/22 unknown) @ 06:11 by Leslie Torres MD) (unknown) (no (unknown) (unknown) Family history of (units (unknown) date) angioedema unknown) (unknown) (no (unknown) (unknown) Father (units (unkno wn) date) Hypertension unknown) (unknown) (no (unknown) (unknown) FiO2 30 (units (unkno wn) date) unknown) (unknown) (no (unknown) (unknown) FiO2 (units (unkno wn) date) unknown) (unknown) (no (unknown) (unknown) Fraction of (units (un known) date) Inspired Oxygen unknown) 0.30 30 0.30 (unknown) (no (unknown) (unknown) Fraction of (units (un known) date) Inspired Oxygen unknown) 0.30 (unknown) (no (unknown) (unknown) Fraction of (units (un known) date) Inspired Oxygen unknown) (unknown) (no (unknown) (unknown) Globulin 3.1 (units (u nknown) date) unknown) (unknown) (no (unknown) (unknown) Globulin 3.5 (units (u nknown) date) unknown) (unknown) (no (unknown) (unknown) Globulin (units (unkno wn) date) unknown) (unknown) (no (unknown) (unknown) Glucose 155 H (units ( unknown) date) unknown) (unknown) (no (unknown) (unknown) Glucose 194 H D (units (unknown) date) unknown) (unknown) (no (unknown) (unknown) Glucose (units (unkno wn) date) unknown) (unknown) (no (unknown) (unknown) Hct 35.1 L (units (unk nown) date) unknown) (unknown) (no (unknown) (unknown) Hct 37.7 (units (unkno wn) date) unknown) (unknown) (no (unknown) (unknown) Hct (units (unkno wn) date) unknown) (unknown) (no (unknown) (unknown) Hemoglobin A1c (units (unknown) date) 5.4 unknown) (unknown) (no (unknown) (unknown) Hemoglobin A1c (units (unknown) date) unknown) (unknown) (no (unknown) (unknown) Hgb 11.7 L (units (unk nown) date) unknown) (unknown) (no (unknown) (unknown) Hgb 12.5 (units (unkno wn) date) unknown) (unknown) (no [...] this patient's care (unknown) (no (unknown) (unknown) Interval history: (units (unknown) date) unknown) (unknown) (no (unknown) (unknown) [facility] (units (unknown) date) [address] unknown) [place] [address] (unknown) (no (unknown) (unknown) Laboratory (units (unk nown) date) Results - last 24 unknown) hr (unknown) (no (unknown) (unknown) Labs (units (unkno wn) date) unknown) (unknown) (no (unknown) (unknown) Labs: (units (unkno wn) date) unknown) (unknown) (no (unknown) (unknown) Lymph # (Auto) (units (unknown) date) 1100 unknown) (unknown) (no (unknown) (unknown) Lymph # (Auto) (units (unknown) date) 400 L unknown) (unknown) (no (unknown) (unknown) Lymph # (Auto) (units (unknown) date) unknown) (unknown) (no (unknown) (unknown) Lymph % (Auto) (units (unknown) date) 11.0 L unknown) (unknown) (no (unknown) (unknown) Lymph % (Auto) (units (unknown) date) 7.5 L unknown) (unknown) (no (unknown) (unknown) Lymph % (Auto) (units (unknown) date) unknown) (unknown) (no (unknown) (unknown) MCH 31.2 (units (unkno wn) date) unknown) (unknown) (no (unknown) (unknown) MCH 31.5 (units (unkno wn) date) unknown) (unknown) (no (unknown) (unknown) MCH (units (unkno wn) date) unknown) (unknown) (no (unknown) (unknown) MCHC 33.1 (units (unkn own) date) unknown) (unknown) (no (unknown) (unknown) MCHC 33.3 (units (unkn own) date) unknown) (unknown) (no (unknown) (unknown) MCHC (units (unkno wn) date) unknown) (unknown) (no (unknown) (unknown) MCV 94.4 (units (unkno wn) date) unknown) (unknown) (no (unknown) (unknown) MCV (units (unkno wn) date) unknown) (unknown) (no (unknown) (unknown) 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 (unknown) (no (unknown) (unknown) Marijuana use, (units (unknown) date) continuous unknown) (unknown) (no (unknown) (unknown) Medical History (units (unknown) date) (Reviewed 07/06/22 unknown) @ 06:11 by Leslie Torres MD) (unknown) (no (unknown) (unknown) [place] # (Auto) 200 (units (unknown) date) unknown) (unknown) (no (unknown) (unknown) [place] # (Auto) 700 (units (unknown) date) unknown) (unknown) (no (unknown) (unknown) [place] # (Auto) (units ( unknown) date) unknown) (unknown) (no (unknown) (unknown) [place] % (Auto) 2.7 (units (unknown) date) L unknown) (unknown) (no (unknown) (unknown) [place] % (Auto) 6.5 (units (unknown) date) unknown) (unknown) (no (unknown) (unknown) [place] % (Auto) (units ( unknown) date) unknown) (unknown) (no (unknown) (unknown) Mother Diabetes (units (unknown) date) mellitus unknown) (unknown) (no (unknown) (unknown) Neut # (Auto) (units ( unknown) date) 5300 unknown) (unknown) (no (unknown) (unknown) Neut # (Auto) (units ( unknown) date) 8500 H unknown) (unknown) (no (unknown) (unknown) Neut # (Auto) (units ( unknown) date) unknown) (unknown) (no (unknown) (unknown) Neut % (Auto) (units ( unknown) date) 81.9 H unknown) (unknown) (no (unknown) (unknown) Neut % (Auto) (units ( unknown) date) 89.4 H unknown) (unknown) (no (unknown) (unknown) Neut % (Auto) (units ( unknown) date) unknown) (unknown) (no (unknown) (unknown) Objective (units (unkn own) date) unknown) (unknown) (no (unknown) (unknown) Other Colon (units (un known) date) cancer unknown) (unknown) (no (unknown) (unknown) Oxygen Delivery (units (unknown) date) Method Mechanical unknown) (unknown) (no (unknown) (unknown) Oxygen Delivery (units (unknown) date) Method Room Air unknown) (unknown) (no (unknown) (unknown) Oxygen Delivery (units (unknown) date) Method unknown) (unknown) (no (unknown) (unknown) PFSH (units (unkno wn) date) unknown) (unknown) (no (unknown) (unknown) Pancreatitis (units (u nknown) date) unknown) (unknown) (no (unknown) (unknown) Patient: (units (unkno wn) date) Dameon Caputo MR#: unknown) [id number] (unknown) (no (unknown) (unknown) Plt Count 227 (units ( unknown) date) unknown) (unknown) (no (unknown) (unknown) Plt Count 229 (units ( unknown) date) unknown) (unknown) (no (unknown) (unknown) Plt Count (units (unkn own) date) unknown) (unknown) (no (unknown) (unknown) Potassium 3.9 (units ( unknown) date) unknown) (unknown) (no (unknown) (unknown) Potassium 4.8 (units ( unknown) date) unknown) (unknown) (no (unknown) (unknown) Potassium (units (unkn own) date) unknown) (unknown) (no (unknown) (unknown) Progress Note (units ( unknown) date) unknown) (unknown) (no (unknown) (unknown) Provider: (units (unkn own) date) Charissa Cordova MD unknown) (unknown) (no (unknown) (unknown) Pulse Oximetry (units (unknown) date) 100 100 100 unknown) (unknown) (no (unknown) (unknown) Pulse Oximetry (units (unknown) date) 100 95 100 unknown) (unknown) (no (unknown) (unknown) Pulse Oximetry 98 (units (unknown) date) unknown) (unknown) (no (unknown) (unknown) Pulse Rate 50 L (units (unknown) date) 54 L unknown) (unknown) (no (unknown) (unknown) Pulse Rate 54 L (units (unknown) date) unknown) (unknown) (no (unknown) (unknown) Pulse Rate 61 58 (units (unknown) date) L 55 L unknown) (unknown) (no (unknown) (unknown) Quality (units (unkno wn) date) unknown) (unknown) (no (unknown) (unknown) RBC 3.71 L (units (unk nown) date) unknown) (unknown) (no (unknown) (unknown) RBC 4.00 (units (unkno wn) date) unknown) (unknown) (no (unknown) (unknown) RBC (units (unkno wn) date) unknown) (unknown) (no (unknown) (unknown) RDW 13.2 (units (unkno wn) date) unknown) (unknown) (no (unknown) (unknown) RDW (units (unkno wn) date) unknown) (unknown) (no (unknown) (unknown) Respiratory Rate (units (unknown) date) 16 16 16 unknown) (unknown) (no (unknown) (unknown) Respiratory Rate (units (unknown) date) 16 17 unknown) (unknown) (no (unknown) (unknown) Respiratory Rate (units (unknown) date) 16 unknown) (unknown) (no (unknown) (unknown) Result Diagrams: (units (unknown) date) unknown) (unknown) (no (unknown) (unknown) Signed By: (units (unk nown) date) unknown) (unknown) (no (unknown) (unknown) Smoking Status: (units (unknown) date) Current every day unknown) smoker (unknown) (no (unknown) (unknown) Social History (units (unknown) date) (Reviewed 07/06/22 unknown) @ 06:11 by Leslie Torres MD) (unknown) (no (unknown) (unknown) Sodium 137 (units (unk nown) date) unknown) (unknown) (no (unknown) (unknown) Sodium 142 (units (unk nown) date) unknown) (unknown) (no (unknown) (unknown) Sodium (units (unkno wn) date) unknown) (unknown) (no (unknown) (unknown) Subjective (units (unk nown) date) unknown) (unknown) (no (unknown) (unknown) Surgical History (units (unknown) date) (Reviewed 07/06/22 unknown) @ 06:11 by Leslie Torres MD) (unknown) (no (unknown) (unknown) Temperature 97.2 (units (unknown) date) F L unknown) (unknown) (no (unknown) (unknown) Temperature (units (un known) date) unknown) (unknown) (no (unknown) (unknown) Time Spent With (units (unknown) date) Patient unknown) (unknown) (no (unknown) (unknown) Total Bilirubin (units (unknown) date) 0.5 unknown) (unknown) (no (unknown) (unknown) Total Bilirubin (units (unknown) date) 0.6 unknown) (unknown) (no (unknown) (unknown) Total Bilirubin (units (unknown) date) unknown) (unknown) (no (unknown) (unknown) Total Creatine (units (unknown) date) Kinase 244 H unknown) (unknown) (no (unknown) (unknown) Total Creatine (units (unknown) date) Kinase 258 H unknown) (unknown) (no (unknown) (unknown) Total Creatine (units (unknown) date) Kinase unknown) (unknown) (no (unknown) (unknown) Total Protein 6.6 (units (unknown) date) unknown) (unknown) (no (unknown) (unknown) Total Protein 7.7 (units (unknown) date) unknown) (unknown) (no (unknown) (unknown) Total Protein (units ( unknown) date) unknown) (unknown) (no (unknown) (unknown) Troponin I 5.560 (units (unknown) date) H* unknown) (unknown) (no (unknown) (unknown) Troponin I 6.810 (units (unknown) date) H* unknown) (unknown) (no (unknown) (unknown) Troponin I (units (unk nown) date) unknown) (unknown) (no (unknown) (unknown) VTE (units (unkno wn) date) unknown) (unknown) (no (unknown) (unknown) Ventilation Room (units (unknown) date) Air unknown) (unknown) (no (unknown) (unknown) Vital Signs (units (un known) date) unknown) (unknown) (no (unknown) (unknown) WBC 10.3 D (units (unk nown) date) unknown) (unknown) (no (unknown) (unknown) WBC 5.9 (units (unkno wn) date) unknown) (unknown) (no (unknown) (unknown) WBC (units (unkno wn) date) unknown) (unknown) (no (unknown) (unknown) [Embedded Image (units (unknown) date) Not Available] unknown) (unknown) (no (unknown) (unknown) alcohol intake: (units (unknown) date) current unknown) (unknown) (no (unknown) (unknown) angiogram. 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 Troponin 6.8 (unknown) (no (unknown) (unknown) have a couple of (units (unknown) date) episodes of unknown) hypotension yesterday am requiring IVF boluses. (unknown) (no (unknown) (unknown) household (units (unkn own) date) members: spouse unknown) (unknown) (no (unknown) (unknown) intubation/mechan (units (unknown) date) ical ventilation unknown) for airway protection.? She has been treated (unknown) (no (unknown) (unknown) last night. (units (un known) date) Tele-intesivist unknown) recommended transfer to tertiary care facility for (unknown) (no (unknown) (unknown) marijuana who was (units (unknown) date) [id number] with unknown) recurrent angioedema requiring (unknown) (no (unknown) (unknown) today; this time (units (unknown) date) is exclusive of unknown) procedural time. (unknown) (no (unknown) (unknown) w/epinephrine, (units (unknown) date) dexamethasone, unknown) benadryl and pepcid IV for angioedema. She did Result panel 694 (unknown) (no (unknown) (unknown) (no value) (units (unk nown) date) unknown) (unknown) (no (unknown) (unknown) (past 8 hours): (units (unknown) date) unknown) (unknown) (no (unknown) (unknown) 00:00 07/07/22 (units (unknown) date) unknown) (unknown) (no (unknown) (unknown) 00:00 (units (unkno wn) date) unknown) (unknown) (no (unknown) (unknown) 01:00 07/07/22 (units (unknown) date) unknown) (unknown) (no (unknown) (unknown) 01:20 01:20 01:20 (units (unknown) date) unknown) (unknown) (no (unknown) (unknown) 02:00 07/07/22 (units (unknown) date) unknown) (unknown) (no (unknown) (unknown) 02:00 (units (unkno wn) date) unknown) (unknown) (no (unknown) (unknown) 03:30 07/07/22 (units (unknown) date) unknown) (unknown) (no (unknown) (unknown) 04:00 (units (unkno wn) date) unknown) (unknown) (no (unknown) (unknown) 07/05/22 07/06/22 (units (unknown) date) 07/06/22 unknown) (unknown) (no (unknown) (unknown) 07/06/22 07/06/22 (units (unknown) date) 07/06/22 unknown) (unknown) (no (unknown) (unknown) 07/06/22 (units (unkno wn) date) unknown) (unknown) (no (unknown) (unknown) 07/07/22 01:20 (units (unknown) date) unknown) (unknown) (no (unknown) (unknown) 07/07/22 07/07/22 (units (unknown) date) 07/07/22 unknown) (unknown) (no (unknown) (unknown) 07/07/22 (units (unkno wn) date) unknown) (unknown) (no (unknown) (unknown) 15:19 21:30 23:10 (units (unknown) date) unknown) (unknown) (no (unknown) (unknown) 22:00 07/06/22 (units (unknown) date) unknown) (unknown) (no (unknown) (unknown) 22:56 04:45 04:45 (units (unknown) date) unknown) (unknown) (no (unknown) (unknown) 23:00 07/07/22 (units (unknown) date) unknown) (unknown) (no (unknown) (unknown) [id number] (units (unkno wn) date) unknown) (unknown) (no (unknown) (unknown) 46-year-old female (units (unknown) date) with polysubstance unknown) dependence specifically cocaine and (unknown) (no (unknown) (unknown) ABD: Soft, NT/ND, (units (unknown) date) BT present in all 4 unknown) quadrants, no organomegaly or masses (unknown) (no (unknown) (unknown) ABG Base Excess (units (unknown) date) -3.0 L unknown) (unknown) (no (unknown) (unknown) ABG Base Excess (units (unknown) date) unknown) (unknown) (no (unknown) (unknown) ABG HCO3 23 (units (un known) date) unknown) (unknown) (no (unknown) (unknown) ABG HCO3 (units (unkno wn) date) unknown) (unknown) (no (unknown) (unknown) ABG O2 Saturation (units (unknown) date) 98 unknown) (unknown) (no (unknown) (unknown) ABG O2 Saturation (units (unknown) date) unknown) (unknown) (no (unknown) (unknown) ABG Total CO2 24 (units (unknown) date) unknown) (unknown) (no (unknown) (unknown) ABG Total CO2 (units ( unknown) date) unknown) (unknown) (no (unknown) (unknown) ABG pCO2 40.7 (units ( unknown) date) unknown) (unknown) (no (unknown) (unknown) ABG pCO2 (units (unkno wn) date) unknown) (unknown) (no (unknown) (unknown) ABG pH 7.36 (units (un known) date) unknown) (unknown) (no (unknown) (unknown) ABG pH (units (unkno wn) date) unknown) (unknown) (no (unknown) (unknown) ABG pO2 105 H (units ( unknown) date) unknown) (unknown) (no (unknown) (unknown) ABG pO2 (units (unkno wn) date) unknown) (unknown) (no (unknown) (unknown) ALT 32 (units (unkno wn) date) unknown) (unknown) (no (unknown) (unknown) ALT 35 H (units (unkno wn) date) unknown) (unknown) (no (unknown) (unknown) ALT (units (unkno wn) date) unknown) (unknown) (no (unknown) (unknown) APTT 26 (units (unkno wn) date) unknown) (unknown) (no (unknown) (unknown) APTT (units (unkno wn) date) unknown) (unknown) (no (unknown) (unknown) AST 62 H (units (unkno wn) date) unknown) (unknown) (no (unknown) (unknown) AST 70 H (units (unkno wn) date) unknown) (unknown) (no (unknown) (unknown) AST (units (unkno wn) date) unknown) (unknown) (no (unknown) (unknown) Abscess (units (unkno wn) date) unknown) (unknown) (no (unknown) (unknown) Age/Sex: 46 / F (units (unknown) date) unknown) (unknown) (no (unknown) (unknown) Albumin 3.5 (units (un known) date) unknown) (unknown) (no (unknown) (unknown) Albumin 4.2 (units (un known) date) unknown) (unknown) (no (unknown) (unknown) Albumin (units (unkno wn) date) unknown) (unknown) (no (unknown) (unknown) Albumin/Globulin (units (unknown) date) Ratio 1.1 unknown) (unknown) (no (unknown) (unknown) Albumin/Globulin (units (unknown) date) Ratio 1.2 unknown) (unknown) (no (unknown) (unknown) Albumin/Globulin (units (unknown) date) Ratio unknown) (unknown) (no (unknown) (unknown) Alkaline (units (unkno wn) date) Phosphatase 47 unknown) (unknown) (no (unknown) (unknown) Alkaline (units (unkno wn) date) Phosphatase 74 unknown) (unknown) (no (unknown) (unknown) Alkaline (units (unkno wn) date) Phosphatase unknown) (unknown) (no (unknown) (unknown) Angioedema with (units (unknown) date) acute hypoxic unknown) respiratory failure (unknown) (no (unknown) (unknown) Anxiety (units (unkno wn) date) unknown) (unknown) (no (unknown) (unknown) Assessment + Plan (units (unknown) date) narrative: unknown) (unknown) (no (unknown) (unknown) Assessment + Plan (units (unknown) date) unknown) (unknown) (no (unknown) (unknown) BUN 11 (units (unkno wn) date) unknown) (unknown) (no (unknown) (unknown) BUN 16 (units (unkno wn) date) unknown) (unknown) (no (unknown) (unknown) BUN (units (unkno wn) date) unknown) (unknown) (no (unknown) (unknown) BUN/Creatinine (units (unknown) date) Ratio 12.6 unknown) (unknown) (no (unknown) (unknown) BUN/Creatinine (units (unknown) date) Ratio 20.3 unknown) (unknown) (no (unknown) (unknown) BUN/Creatinine (units [...] (unknown) (unknown) Blood Pressure (units (unknown) date) 101/77 105/70 unknown) (unknown) (no (unknown) (unknown) Blood Pressure (units (unknown) date) 114/79 111/79 unknown) 111/82 (unknown) (no (unknown) (unknown) Blood Pressure (units (unknown) date) 124/89 unknown) (unknown) (no (unknown) (unknown) CHEST: Respiratory (units (unknown) date) excursions unknown) symmetric, CTAB (unknown) (no (unknown) (unknown) CK-MB (CK-2) 11.30 (units (unknown) date) H unknown) (unknown) (no (unknown) (unknown) CK-MB (CK-2) 14.60 (units (unknown) date) H unknown) (unknown) (no (unknown) (unknown) CK-MB (CK-2) Rel (units (unknown) date) Index 4.6 unknown) (unknown) (no (unknown) (unknown) CK-MB (CK-2) Rel (units (unknown) date) Index 5.7 H unknown) (unknown) (no (unknown) (unknown) CK-MB (CK-2) Rel (units (unknown) date) Index unknown) (unknown) (no (unknown) (unknown) CK-MB (CK-2) (units (u nknown) date) unknown) (unknown) (no (unknown) (unknown) CV: RRR, no M/R/G (units (unknown) date) unknown) (unknown) (no (unknown) (unknown) Calcium 8.5 (units (un known) date) unknown) (unknown) (no (unknown) (unknown) Calcium (units (unkno wn) date) unknown) (unknown) (no (unknown) (unknown) Carbon Dioxide 25 (units (unknown) date) unknown) (unknown) (no (unknown) (unknown) Carbon Dioxide 27 (units (unknown) date) unknown) (unknown) (no (unknown) (unknown) Carbon Dioxide (units (unknown) date) unknown) (unknown) (no (unknown) (unknown) Chloride 103 (units (u nknown) date) unknown) (unknown) (no (unknown) (unknown) Chloride 104 (units (u nknown) date) unknown) (unknown) (no (unknown) (unknown) Chloride (units (unkno wn) date) unknown) (unknown) (no (unknown) (unknown) Chronic abdominal (units (unknown) date) pain unknown) (unknown) (no (unknown) (unknown) Code status (units (un known) date) unknown) (unknown) (no (unknown) (unknown) Creatinine 0.79 (units (unknown) date) unknown) (unknown) (no (unknown) (unknown) Creatinine 0.87 (units (unknown) date) unknown) (unknown) (no (unknown) (unknown) Creatinine (units (unk nown) date) unknown) (unknown) (no (unknown) (unknown) Critical Care (units ( unknown) date) time: unknown) (unknown) (no (unknown) (unknown) Cyclic vomiting (units (unknown) date) syndrome unknown) (unknown) (no (unknown) (unknown) : 1975 (units (unknown) date) Acct:[id number] unknown) (unknown) (no (unknown) (unknown) Date of Service: (units (unknown) date) 07/05/22 unknown) (unknown) (no (unknown) (unknown) Daughter (units (unkno wn) date) Angio-edema unknown) (unknown) (no (unknown) (unknown) Deep Vein (units (unkn own) date) Thrombosis/Pulmonar unknown) y Embolism Present on Admission: No (unknown) (no (unknown) (unknown) Disposition (units (un known) date) unknown) (unknown) (no (unknown) (unknown) EXTR: warm, well (units (unknown) date) perfused, no C/C/E unknown) (unknown) (no (unknown) (unknown) Echocardiogram (units (unknown) date) performed yesterday unknown) showed new reduced EF, per on-call (unknown) (no (unknown) (unknown) Eos # (Auto) 0 (units (unknown) date) unknown) (unknown) (no (unknown) (unknown) Eos # (Auto) (units (u nknown) date) unknown) (unknown) (no (unknown) (unknown) Eos % (Auto) 0.0 L (units (unknown) date) unknown) (unknown) (no (unknown) (unknown) Eos % (Auto) 0.3 L (units (unknown) date) unknown) (unknown) (no [...] (unknown) Family History (units (unknown) date) (Reviewed 07/06/22 unknown) @ 06:11 by Leslie Torres MD) (unknown) (no (unknown) (unknown) Family history of (units (unknown) date) angioedema unknown) (unknown) (no (unknown) (unknown) Father (units (unkno wn) date) Hypertension unknown) (unknown) (no (unknown) (unknown) FiO2 30 (units (unkno wn) date) unknown) (unknown) (no (unknown) (unknown) FiO2 (units (unkno wn) date) unknown) (unknown) (no (unknown) (unknown) Fraction of (units (un known) date) Inspired Oxygen unknown) 0.30 30 0.30 (unknown) (no (unknown) (unknown) Fraction of (units (un known) date) Inspired Oxygen unknown) 0.30 (unknown) (no (unknown) (unknown) Fraction of (units (un known) date) Inspired Oxygen unknown) (unknown) (no (unknown) (unknown) Full (units (unkno wn) date) unknown) (unknown) (no (unknown) (unknown) GEN:? Sedated but (units (unknown) date) does open her eyes, unknown) no acute distress (unknown) (no (unknown) (unknown) Globulin 3.1 (units (u nknown) date) unknown) (unknown) (no (unknown) (unknown) Globulin 3.5 (units (u nknown) date) unknown) (unknown) (no (unknown) (unknown) Globulin (units (unkno wn) date) unknown) (unknown) (no (unknown) (unknown) Glucose 155 H (units ( unknown) date) unknown) (unknown) (no (unknown) (unknown) Glucose 194 H D (units (unknown) date) unknown) (unknown) (no (unknown) (unknown) Glucose (units (unkno wn) date) unknown) (unknown) (no (unknown) (unknown) HEENT:NC, left (units ( unknown) date) cheek and face unknown) reveal moderate swelling, tongue is protruding and (unknown) (no (unknown) (unknown) Hct 35.1 L (units (unk nown) date) unknown) (unknown) (no (unknown) (unknown) Hct 37.7 (units (unkno wn) date) unknown) (unknown) (no (unknown) (unknown) Hct (units (unkno wn) date) unknown) (unknown) (no (unknown) (unknown) Hemoglobin A1c 5.4 (units (unknown) date) unknown) (unknown) (no (unknown) (unknown) Hemoglobin A1c (units (unknown) date) unknown) (unknown) (no (unknown) (unknown) Hgb 11.7 L (units (unk nown) date) unknown) (unknown) (no (unknown) (unknown) Hgb 12.5 (units (unkno wn) date) unknown) (unknown) (no (unknown) (unknown) Hgb (units (unkno wn) date) unknown) (unknown) (no (unknown) (unknown) Holding her (units (unk nown) date) outpatient unknown) antihypertensive therapy.? Blood pressure is normotensive (unknown) (no (unknown) (unknown) Hx of appendectomy (units (unknown) date) unknown) (unknown) (no (unknown) (unknown) Hx of (units (unkno wn) date) cholecystectomy unknown) (unknown) (no (unknown) (unknown) Hyperglycemia (units ( unknown) date) unknown) (unknown) (no (unknown) (unknown) Hypertension (units (u nknown) date) unknown) (unknown) (no (unknown) (unknown) Hypotension (units (un known) date) unknown) (unknown) (no (unknown) (unknown) I spent a total of (units (unknown) date) [] minutes of unknown) critical care time on this patient's care (unknown) (no (unknown) (unknown) Intensive care (units (unknown) date) unit unknown) (unknown) (no (unknown) (unknown) Interval history: (units (unknown) date) unknown) (unknown) (no (unknown) (unknown) [facility] (units (unknown) date) [address] unknown) [place] [address] (unknown) (no (unknown) (unknown) Laboratory Results (units (unknown) date) - last 24 hr unknown) (unknown) (no (unknown) (unknown) Labs (units (unkno wn) date) unknown) (unknown) (no (unknown) (unknown) Labs: (units (unkno wn) date) unknown) (unknown) (no (unknown) (unknown) Lymph # (Auto) (units (unknown) date) 1100 unknown) (unknown) (no (unknown) (unknown) Lymph # (Auto) 400 (units (unknown) date) L unknown) (unknown) (no (unknown) (unknown) Lymph # (Auto) (units (unknown) date) unknown) (unknown) (no (unknown) (unknown) Lymph % (Auto) (units (unknown) date) 11.0 L unknown) (unknown) (no (unknown) (unknown) Lymph % (Auto) 7.5 (units (unknown) date) L unknown) (unknown) (no (unknown) (unknown) Lymph % (Auto) (units (unknown) date) unknown) (unknown) (no (unknown) (unknown) MCH 31.2 (units (unkno wn) date) unknown) (unknown) (no (unknown) (unknown) MCH 31.5 (units (unkno wn) date) unknown) (unknown) (no (unknown) (unknown) MCH (units (unkno wn) date) unknown) (unknown) (no (unknown) (unknown) MCHC 33.1 (units (unkn own) date) unknown) (unknown) (no (unknown) (unknown) MCHC 33.3 (units (unkn own) date) unknown) (unknown) (no (unknown) (unknown) MCHC (units (unkno wn) date) unknown) (unknown) (no (unknown) (unknown) MCV 94.4 (units (unkno wn) date) unknown) (unknown) (no (unknown) (unknown) MCV (units (unkno wn) date) unknown) (unknown) (no (unknown) (unknown) 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 (unknown) (no (unknown) (unknown) Marijuana use, (units (unknown) date) continuous unknown) (unknown) (no (unknown) (unknown) Medical History (units (unknown) date) (Reviewed 07/06/22 unknown) @ 06:11 by Leslie Torres MD) (unknown) (no (unknown) (unknown) [place] # (Auto) 200 (units (unknown) date) unknown) (unknown) (no (unknown) (unknown) [place] # (Auto) 700 (units (unknown) date) unknown) (unknown) (no (unknown) (unknown) [place] # (Auto) (units ( unknown) date) unknown) (unknown) (no (unknown) (unknown) [place] % (Auto) 2.7 (units (unknown) date) L unknown) (unknown) (no (unknown) (unknown) [place] % (Auto) 6.5 (units (unknown) date) unknown) (unknown) (no (unknown) (unknown) [place] % (Auto) (units ( unknown) date) unknown) (unknown) (no (unknown) (unknown) Mother Diabetes (units (unknown) date) mellitus unknown) (unknown) (no (unknown) (unknown) NEURO:? Intubated, (units (unknown) date) sedated unknown) (unknown) (no (unknown) (unknown) Narrative (units (unkn own) date) unknown) (unknown) (no (unknown) (unknown) Neut # (Auto) 5300 (units (unknown) date) unknown) (unknown) (no (unknown) (unknown) Neut # (Auto) 8500 (units (unknown) date) H unknown) (unknown) (no (unknown) (unknown) Neut # (Auto) (units ( unknown) date) unknown) (unknown) (no (unknown) (unknown) Neut % (Auto) 81.9 (units (unknown) date) H unknown) (unknown) (no (unknown) (unknown) Neut % (Auto) 89.4 (units (unknown) date) H unknown) (unknown) (no (unknown) (unknown) Neut % (Auto) (units ( unknown) date) unknown) (unknown) (no (unknown) (unknown) Objective (units (unkn own) date) unknown) (unknown) (no (unknown) (unknown) On Lovenox (units (unk nown) date) unknown) (unknown) (no (unknown) (unknown) On Wellbutrin on (units (unknown) date) an outpatient unknown) basis.? This has been held (unknown) (no (unknown) (unknown) Other Colon cancer (units (unknown) date) unknown) (unknown) (no (unknown) (unknown) Oxygen Delivery (units (unknown) date) Method Mechanical unknown) (unknown) (no (unknown) (unknown) Oxygen Delivery (units (unknown) date) Method Room Air unknown) (unknown) (no (unknown) (unknown) Oxygen Delivery (units (unknown) date) Method unknown) (unknown) (no (unknown) (unknown) PFSH (units (unkno wn) date) unknown) (unknown) (no (unknown) (unknown) Pancreatitis (units (u nknown) date) unknown) (unknown) (no (unknown) (unknown) Patient evidently (units (unknown) date) has had previous unknown) presentations.? Appreciate management per (unknown) (no (unknown) (unknown) Patient: (units (unkno wn) date) Dameon Caputo MR#: unknown) [id number] (unknown) (no (unknown) (unknown) Plt Count 227 (units ( unknown) date) unknown) (unknown) (no (unknown) (unknown) Plt Count 229 (units ( unknown) date) unknown) (unknown) (no (unknown) (unknown) Plt Count (units (unkn own) date) unknown) (unknown) (no (unknown) (unknown) Potassium 3.9 (units ( unknown) date) unknown) (unknown) (no (unknown) (unknown) Potassium 4.8 (units ( unknown) date) unknown) (unknown) (no (unknown) (unknown) Potassium (units (unkn own) date) unknown) (unknown) (no (unknown) (unknown) Progress Note (units ( unknown) date) unknown) (unknown) (no (unknown) (unknown) Prophylaxis (units (un known) date) unknown) (unknown) (no (unknown) (unknown) Provider: (units (unkn own) date) Charissa Cordova MD unknown) (unknown) (no (unknown) (unknown) Pulse Oximetry 100 (units (unknown) date) 100 100 unknown) (unknown) (no (unknown) (unknown) Pulse Oximetry 100 (units (unknown) date) 95 100 unknown) (unknown) (no (unknown) (unknown) Pulse Oximetry 98 (units (unknown) date) unknown) (unknown) (no (unknown) (unknown) Pulse Rate 50 L 54 (units (unknown) date) L unknown) (unknown) (no (unknown) (unknown) Pulse Rate 54 L (units (unknown) date) unknown) (unknown) (no (unknown) (unknown) Pulse Rate 61 58 L (units (unknown) date) 55 L unknown) (unknown) (no (unknown) (unknown) Quality (units (unkno wn) date) unknown) (unknown) (no (unknown) (unknown) RBC 3.71 L (units (unk nown) date) unknown) (unknown) (no (unknown) (unknown) RBC 4.00 (units (unkno wn) date) unknown) (unknown) (no (unknown) (unknown) RBC (units (unkno wn) date) unknown) (unknown) (no (unknown) (unknown) RDW 13.2 (units (unkno wn) date) unknown) (unknown) (no (unknown) (unknown) RDW (units (unkno wn) date) unknown) (unknown) (no (unknown) (unknown) Resolved (units (unkno wn) date) unknown) (unknown) (no (unknown) (unknown) Respiratory Rate (units (unknown) date) 16 16 16 unknown) (unknown) (no (unknown) (unknown) Respiratory Rate (units (unknown) date) 16 17 unknown) (unknown) (no (unknown) (unknown) Respiratory Rate (units (unknown) date) 16 unknown) (unknown) (no (unknown) (unknown) Result Diagrams: (units (unknown) date) unknown) (unknown) (no (unknown) (unknown) SKIN: warm and (units (unknown) date) dry, no rash unknown) (unknown) (no (unknown) (unknown) Signed By: (units (unk nown) date) unknown) (unknown) (no (unknown) (unknown) Smoking Status: (units (unknown) date) Current every day unknown) smoker (unknown) (no (unknown) (unknown) Social History (units (unknown) date) (Reviewed 07/06/22 unknown) @ 06:11 by Leslie Torres MD) (unknown) (no (unknown) (unknown) Sodium 137 (units (unk nown) date) unknown) (unknown) (no (unknown) (unknown) Sodium 142 (units (unk nown) date) unknown) (unknown) (no (unknown) (unknown) Sodium (units (unkno wn) date) unknown) (unknown) (no (unknown) (unknown) Still A1c is 5.4%, (units (unknown) date) hyperglycemia is unknown) likely stress induced. (unknown) (no (unknown) (unknown) Subjective (units (unk nown) date) unknown) (unknown) (no (unknown) (unknown) Surgical History (units (unknown) date) (Reviewed 07/06/22 unknown) @ 06:11 by Leslie Torres MD) (unknown) (no (unknown) (unknown) Temperature 97.2 F (units (unknown) date) L unknown) (unknown) (no (unknown) (unknown) Temperature (units (un known) date) unknown) (unknown) (no (unknown) (unknown) Time Spent With (units (unknown) date) Patient unknown) (unknown) (no (unknown) (unknown) Total Bilirubin (units (unknown) date) 0.5 unknown) (unknown) (no (unknown) (unknown) Total Bilirubin (units (unknown) date) 0.6 unknown) (unknown) (no (unknown) (unknown) Total Bilirubin (units (unknown) date) unknown) (unknown) (no (unknown) (unknown) Total Creatine (units (unknown) date) Kinase 244 H unknown) (unknown) (no (unknown) (unknown) Total Creatine (units (unknown) date) Kinase 258 H unknown) (unknown) (no (unknown) (unknown) Total Creatine (units (unknown) date) Kinase unknown) (unknown) (no (unknown) (unknown) Total Protein 6.6 (units (unknown) date) unknown) (unknown) (no (unknown) (unknown) Total Protein 7.7 (units (unknown) date) unknown) (unknown) (no (unknown) (unknown) Total Protein (units ( unknown) date) unknown) (unknown) (no (unknown) (unknown) Troponin I 5.560 (units (unknown) date) H* unknown) (unknown) (no (unknown) (unknown) Troponin I 6.810 (units (unknown) date) H* unknown) (unknown) (no (unknown) (unknown) Troponin I (units (unk nown) date) unknown) (unknown) (no (unknown) (unknown) VTE (units (unkno wn) date) unknown) (unknown) (no (unknown) (unknown) Ventilation Room (units (unknown) date) Air unknown) (unknown) (no (unknown) (unknown) Vital Signs (units (un known) date) unknown) (unknown) (no (unknown) (unknown) WBC 10.3 D (units (unk nown) date) unknown) (unknown) (no (unknown) (unknown) WBC 5.9 (units (unkno wn) date) unknown) (unknown) (no (unknown) (unknown) WBC (units (unkno wn) date) unknown) (unknown) (no (unknown) (unknown) [Embedded Image (units (unknown) date) Not Available] unknown) (unknown) (no (unknown) (unknown) alcohol intake: (units (unknown) date) current unknown) (unknown) (no (unknown) (unknown) also significantly (units (unknown) date) swollen there is an unknown) abrasion noted to the tip of the tongue (unknown) (no (unknown) (unknown) angiogram. 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 Troponin 6.8 (unknown) (no (unknown) (unknown) dexamethasone, (units (unknown) date) famotidine. unknown) (unknown) (no (unknown) (unknown) have a couple of (units (unknown) date) episodes of unknown) hypotension yesterday am requiring IVF boluses. (unknown) (no (unknown) (unknown) household members: (units (unknown) date) spouse unknown) (unknown) (no (unknown) (unknown) intubation/mechani (units (unknown) date) abbie ventilation for unknown) airway protection.? She has been treated (unknown) (no (unknown) (unknown) last night. (units (un known) date) Tele-intesivist unknown) recommended transfer to tertiary care facility for (unknown) (no (unknown) (unknown) marijuana who was (units (unknown) date) [id number] with unknown) recurrent angioedema requiring (unknown) (no (unknown) (unknown) tele therapy assistant.? (units (unknown) date) She remains unknown) intubated and sedated.? She continues to have (unknown) (no (unknown) (unknown) today; this time (units (unknown) date) is exclusive of unknown) procedural time. (unknown) (no (unknown) (unknown) very significant (units (unknown) date) lip tongue and unknown) cheek swelling.? Continues diphenhydramine, (unknown) (no (unknown) (unknown) w/epinephrine, (units (unknown) date) dexamethasone, unknown) benadryl and pepcid IV for angioedema. She did Result panel 695 (unknown) (no date) (unknown) (unknown) 42 seconds (unkn own) (unknown) (no date) (unknown) (unknown) 42 seconds (unkn own) Result panel 696 (unknown) (no date) (unknown) (unknown) 1.5 % (unkn own) (unknown) (no date) (unknown) (unknown) 11.10 ng/ml (unkn own) (unknown) (no date) (unknown) (unknown) 4.630 ng/ml (unkn own) (unknown) (no date) (unknown) (unknown) 4.630 ng/ml (unkn own) (unknown) (no date) (unknown) (unknown) 730 u/l (unkn own) (unknown) (no date) (unknown) (unknown) 730 u/l (unkn own) Result panel 697 (unknown) (no (unknown) (unknown) (no value) (units (unk nown) date) unknown) (unknown) (no (unknown) (unknown) (past 8 hours): (units (unknown) date) unknown) (unknown) (no (unknown) (unknown) 0.2 MCG/KG/HR (units ( unknown) date) unknown) (unknown) (no (unknown) (unknown) 00:00 07/07/22 (units (unknown) date) unknown) (unknown) (no (unknown) (unknown) 01:00 07/07/22 (units (unknown) date) unknown) (unknown) (no (unknown) (unknown) 01:20 01:20 01:20 (units (unknown) date) unknown) (unknown) (no (unknown) (unknown) 02:00 07/07/22 (units (unknown) date) unknown) (unknown) (no (unknown) (unknown) 02:00 (units (unkno wn) date) unknown) (unknown) (no (unknown) (unknown) 03:30 (units (unkno wn) date) unknown) (unknown) (no (unknown) (unknown) 04:00 07/07/22 (units (unknown) date) unknown) (unknown) (no (unknown) (unknown) 05:00 (units (unkno wn) date) unknown) (unknown) (no (unknown) (unknown) 05:45 05:45 (units (un known) date) unknown) (unknown) (no (unknown) (unknown) 06:00 (units (unkno wn) date) unknown) (unknown) (no (unknown) (unknown) 04/14/22 [Rx (units (u nknown) date) Confirmed unknown) 07/06/22] (unknown) (no (unknown) (unknown) 07/06/22 07/06/22 (units (unknown) date) 07/06/22 unknown) (unknown) (no (unknown) (unknown) 07/06/22] (units (unkn own) date) unknown) (unknown) (no (unknown) (unknown) 07/07/22 01:20 (units (unknown) date) unknown) (unknown) (no (unknown) (unknown) 07/07/22 02:00 (units (unknown) date) unknown) (unknown) (no (unknown) (unknown) 07/07/22 06:31 (units (unknown) date) unknown) (unknown) (no (unknown) (unknown) 07/07/22 07/07/22 (units (unknown) date) 07/07/22 unknown) (unknown) (no (unknown) (unknown) 07/07/22 07/07/22 (units (unknown) date) unknown) (unknown) (no (unknown) (unknown) 07/07/22 (units (unkno wn) date) unknown) (unknown) (no (unknown) (unknown) 12 UNITS/KG/HR (units (unknown) date) unknown) (unknown) (no (unknown) (unknown) 15:19 21:30 23:10 (units (unknown) date) unknown) (unknown) (no (unknown) (unknown) [id number] (units (unkno wn) date) unknown) (unknown) (no (unknown) (unknown) ABG Base Excess (units (unknown) date) -3.0 L unknown) (unknown) (no (unknown) (unknown) ABG Base Excess (units (unknown) date) unknown) (unknown) (no (unknown) (unknown) ABG HCO3 23 (units (un known) date) unknown) (unknown) (no (unknown) (unknown) ABG HCO3 (units (unkno wn) date) unknown) (unknown) (no (unknown) (unknown) ABG O2 Saturation (units (unknown) date) 98 unknown) (unknown) (no (unknown) (unknown) ABG O2 Saturation (units (unknown) date) unknown) (unknown) (no (unknown) (unknown) ABG Total CO2 24 (units (unknown) date) unknown) (unknown) (no (unknown) (unknown) ABG Total CO2 (units ( unknown) date) unknown) (unknown) (no (unknown) (unknown) ABG pCO2 40.7 (units ( unknown) date) unknown) (unknown) (no (unknown) (unknown) ABG pCO2 (units (o wn) date) unknown) (unknown) (no (unknown) (unknown) ABG pH 7.36 (units (un known) date) unknown) (unknown) (no (unknown) (unknown) ABG pH (units (unkno wn) date) unknown) (unknown) (no (unknown) (unknown) ABG pO2 105 H (units ( unknown) date) unknown) (unknown) (no (unknown) (unknown) ABG pO2 (units (unkno wn) date) unknown) (unknown) (no (unknown) (unknown) ACHS KIRIT (units (unkno wn) date) unknown) (unknown) (no (unknown) (unknown) ALT 32 (units (unkno wn) date) unknown) (unknown) (no (unknown) (unknown) ALT (units (unkno wn) date) unknown) (unknown) (no (unknown) (unknown) APTT 26 (units (unkno wn) date) unknown) (unknown) (no (unknown) (unknown) APTT 42 H D (units (un known) date) unknown) (unknown) (no (unknown) (unknown) APTT (units (unkno wn) date) unknown) (unknown) (no (unknown) (unknown) AST 62 H (units (unkno wn) date) unknown) (unknown) (no (unknown) (unknown) AST (units (unkno wn) date) unknown) (unknown) (no (unknown) (unknown) Age/Sex: 46 / F (units (unknown) date) unknown) (unknown) (no (unknown) (unknown) Albumin 3.5 (units (un known) date) unknown) (unknown) (no (unknown) (unknown) Albumin (units (unkno wn) date) unknown) (unknown) (no (unknown) (unknown) Albumin/Globulin (units (unknown) date) Ratio 1.1 unknown) (unknown) (no (unknown) (unknown) Albumin/Globulin (units (unknown) date) Ratio unknown) (unknown) (no (unknown) (unknown) Alkaline (units (unkno wn) date) Phosphatase 47 unknown) (unknown) (no (unknown) (unknown) Alkaline (units (unkno wn) date) Phosphatase unknown) (unknown) (no (unknown) (unknown) Assessment + Plan (units (unknown) date) unknown) (unknown) (no (unknown) (unknown) BID KIRIT (units (unkno wn) date) Administration unknown) (unknown) (no (unknown) (unknown) BUN 16 (units (unkno wn) date) unknown) (unknown) (no (unknown) (unknown) BUN (units (unkno wn) date) unknown) (unknown) (no (unknown) (unknown) BUN/Creatinine (units (unknown) date) Ratio 20.3 unknown) (unknown) (no (unknown) (unknown) BUN/Creatinine (units [...] (unknown) (unknown) Blood Pressure (units (unknown) date) 105/70 124/89 unknown) (unknown) (no (unknown) (unknown) Blood Pressure (units (unknown) date) 111/82 101/77 unknown) (unknown) (no (unknown) (unknown) Blood Pressure (units (unknown) date) 98/69 unknown) (unknown) (no (unknown) (unknown) Blood Pressure (units (unknown) date) unknown) (unknown) (no (unknown) (unknown) CK-MB (CK-2) (units (u nknown) date) 11.10 H unknown) (unknown) (no (unknown) (unknown) CK-MB (CK-2) (units (u nknown) date) 11.30 H unknown) (unknown) (no (unknown) (unknown) CK-MB (CK-2) (units (u nknown) date) 14.60 H unknown) (unknown) (no (unknown) (unknown) CK-MB (CK-2) Rel (units (unknown) date) Index 1.5 unknown) (unknown) (no (unknown) (unknown) CK-MB (CK-2) Rel (units (unknown) date) Index 4.6 unknown) (unknown) (no (unknown) (unknown) CK-MB (CK-2) Rel (units (unknown) date) Index 5.7 H unknown) (unknown) (no (unknown) (unknown) CONT KIRIT 18.3 (units ( unknown) date) mls/hr unknown) (unknown) (no (unknown) (unknown) Calcium 8.5 (units (un known) date) unknown) (unknown) (no (unknown) (unknown) Calcium (units (unkno wn) date) unknown) (unknown) (no (unknown) (unknown) Carbon Dioxide 27 (units (unknown) date) unknown) (unknown) (no (unknown) (unknown) Carbon Dioxide (units (unknown) date) unknown) (unknown) (no (unknown) (unknown) Chlorhexidine (units ( unknown) date) Gluconate 15 Ml unknown) Cup PO Not Given (unknown) (no (unknown) (unknown) Chlorhexidine (units ( unknown) date) Gluconate 15 ml unknown) 07/06/22 08:00 07/07/22 02:49 (unknown) (no (unknown) (unknown) Chloride 103 (units (u nknown) date) unknown) (unknown) (no (unknown) (unknown) Chloride (units (unkno wn) date) unknown) (unknown) (no (unknown) (unknown) Compazine 25 mg (units (unknown) date) W[place] PRN PRN Nausea unknown) 07/06/22 [History Confirmed 07/06/22] (unknown) (no (unknown) (unknown) Consent obtained (units (unknown) date) for unknown) tele-therapy assistant care: Yes (unknown) (no (unknown) (unknown) Creatinine 0.79 (units (unknown) date) unknown) (unknown) (no (unknown) (unknown) Creatinine (units (unk nown) date) unknown) (unknown) (no (unknown) (unknown) Critical Care (units ( unknown) date) time: unknown) (unknown) (no (unknown) (unknown) Current (units (unkno wn) date) Medications unknown) (unknown) (no (unknown) (unknown) : 1975 (units (unknown) date) Acct:[id number] unknown) (unknown) (no (unknown) (unknown) Date of Service: (units (unknown) date) 07/05/22 unknown) (unknown) (no (unknown) (unknown) Deep Vein (units (unkn own) date) Thrombosis/Pulmona unknown) ry Embolism Present on Admission: No (unknown) (no (unknown) (unknown) Diphenhydramine (units (unknown) date) 50 Mg/Ml Vial IV unknown) 50 mg (unknown) (no (unknown) (unknown) Diphenhydramine (units (unknown) date) HCl 50 mg 07/06/22 unknown) 08:00 07/07/22 03:01 (unknown) (no (unknown) (unknown) Eos # (Auto) 0 (units (unknown) date) unknown) (unknown) (no (unknown) (unknown) Eos # (Auto) (units (u nknown) date) unknown) (unknown) (no (unknown) (unknown) Eos % (Auto) 0.3 (units (unknown) date) L unknown) (unknown) (no (unknown) (unknown) Eos % (Auto) (units (u nknown) date) unknown) (unknown) (no (unknown) (unknown) Estimated GFR > (units (unknown) date) 60 unknown) (unknown) (no (unknown) (unknown) Estimated GFR (units ( unknown) date) unknown) (unknown) (no (unknown) (unknown) Exam (units (unkno wn) date) unknown) (unknown) (no (unknown) (unknown) Exhaled (units (unkno wn) date) unknown) (unknown) (no (unknown) (unknown) Famotidine 20 (units ( unknown) date) Mg/2 Ml Vial IV 20 unknown) mg (unknown) (no (unknown) (unknown) Famotidine 20 mg (units (unknown) date) 07/06/22 10:30 unknown) 07/06/22 20:18 (unknown) (no (unknown) (unknown) FiO2 30 (units (unkno wn) date) unknown) (unknown) (no (unknown) (unknown) FiO2 (units (unkno wn) date) unknown) (unknown) (no (unknown) (unknown) Fraction of (units (un known) date) Inspired Oxygen unknown) 0.30 0.30 (unknown) (no (unknown) (unknown) Fraction of (units (un known) date) Inspired Oxygen unknown) 0.30 (unknown) (no (unknown) (unknown) Fraction of (units (un known) date) Inspired Oxygen unknown) (unknown) (no (unknown) (unknown) Generic Name Dose (units (unknown) date) Route Start Last unknown) Admin (unknown) (no (unknown) (unknown) Globulin 3.1 (units (u nknown) date) unknown) (unknown) (no (unknown) (unknown) Globulin (units (unkno wn) date) unknown) (unknown) (no (unknown) (unknown) Glucose 155 H (units ( unknown) date) unknown) (unknown) (no (unknown) (unknown) Glucose (units (unkno wn) date) unknown) (unknown) (no (unknown) (unknown) Hct 37.7 (units (unkno wn) date) unknown) (unknown) (no (unknown) (unknown) Hct (units (unkno wn) date) unknown) (unknown) (no (unknown) (unknown) Heparin Drip IV (units (unknown) date) 12.71 units/kg/hr unknown) (unknown) (no (unknown) (unknown) Heparin (units (unkno wn) date) Sodium/Dextrose unknown) 25,000 unit in 500 mls @ 17.28 mls/hr 07/06/22 23:00 (unknown) (no (unknown) (unknown) Hgb 12.5 (units (unkno wn) date) unknown) (unknown) (no (unknown) (unknown) Hgb (units (unkno wn) date) unknown) (unknown) (no (unknown) (unknown) Home Medications (units (unknown) date) unknown) (unknown) (no (unknown) (unknown) I spent a total (units (unknown) date) of [] minutes of unknown) critical care time on this patient's care (unknown) (no (unknown) (unknown) I:E Ratio 1:3.7 (units (unknown) date) unknown) (unknown) (no (unknown) (unknown) ICU for further (units (unknown) date) treatment. unknown) (unknown) (no (unknown) (unknown) IF CAMERA (units (unkn own) date) ACTIVATED, patient unknown) seen via real-time interactive audiovisual (unknown) (no (unknown) (unknown) In the ED workup (units (unknown) date) was done, vitals unknown) initially notable for tachycardia and (unknown) (no (unknown) (unknown) Inspiratory Phase (units (unknown) date) Time 0.8 unknown) (unknown) (no (unknown) (unknown) Insulin Human (units ( unknown) date) Lispro 0 unit unknown) 07/06/22 07:45 07/06/22 21:33 (unknown) (no (unknown) (unknown) Insulin Lispro (units (unknown) date) 100 Unit/Ml 3ml unknown) Vial SUBCUT Not Given (unknown) (no (unknown) (unknown) Interval history: (units (unknown) date) unknown) (unknown) (no (unknown) (unknown) [facility] (units (unknown) date) [address] unknown) [place] [id number] (unknown) (no (unknown) (unknown) Laboratory (units (unk nown) date) Results - last unknown) hr (unknown) (no (unknown) (unknown) Labs (units (unkno wn) date) unknown) (unknown) (no (unknown) (unknown) Labs: (units (unkno wn) date) unknown) (unknown) (no (unknown) (unknown) Lymph # (Auto) (units (unknown) date) 1100 unknown) (unknown) (no (unknown) (unknown) Lymph # (Auto) (units (unknown) date) unknown) (unknown) (no (unknown) (unknown) Lymph % (Auto) (units (unknown) date) 11.0 L unknown) (unknown) (no (unknown) (unknown) Lymph % (Auto) (units (unknown) date) unknown) (unknown) (no (unknown) (unknown) MCH 31.2 (units (unkno wn) date) unknown) (unknown) (no (unknown) (unknown) MCH (units (unkno wn) date) unknown) (unknown) (no (unknown) (unknown) MCHC 33.1 (units (unkn own) date) unknown) (unknown) (no (unknown) (unknown) MCHC (units (unkno wn) date) unknown) (unknown) (no (unknown) (unknown) MCV 94.4 (units (unkno wn) date) unknown) (unknown) (no (unknown) (unknown) MCV (units (unkno wn) date) unknown) (unknown) (no (unknown) (unknown) Medications: (units (u nknown) date) unknown) (unknown) (no (unknown) (unknown) [place] # (Auto) 700 (units (unknown) date) unknown) (unknown) (no (unknown) (unknown) [place] # (Auto) (units ( unknown) date) unknown) (unknown) (no (unknown) (unknown) [place] % (Auto) 6.5 (units (unknown) date) unknown) (unknown) (no (unknown) (unknown) [place] % (Auto) (units ( unknown) date) unknown) (unknown) (no (unknown) (unknown) Neut # (Auto) (units ( unknown) date) 8500 H unknown) (unknown) (no (unknown) (unknown) Neut # (Auto) (units ( unknown) date) unknown) (unknown) (no (unknown) (unknown) Neut % (Auto) (units ( unknown) date) 81.9 H unknown) (unknown) (no (unknown) (unknown) Neut % (Auto) (units ( unknown) date) unknown) (unknown) (no (unknown) (unknown) Objective (units (unkn own) date) unknown) (unknown) (no (unknown) (unknown) Other (units (unkno wn) date) 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/roles 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, 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 (unknown) (no (unknown) (unknown) Oxygen Delivery (units (unknown) date) Method Mechanical unknown) (unknown) (no (unknown) (unknown) Oxygen Delivery (units (unknown) date) Method Room Air unknown) (unknown) (no (unknown) (unknown) Oxygen Delivery (units (unknown) date) Method unknown) (unknown) (no (unknown) (unknown) Parameters: (units (un known) date) unknown) (unknown) (no (unknown) (unknown) Patient Location: (units (unknown) date) ICU unknown) (unknown) (no (unknown) (unknown) Patient Position (units (unknown) date) HOB >= 30 degrees unknown) (unknown) (no (unknown) (unknown) Patient Summary: (units (unknown) date) 46 yo W with PMH unknown) of angioedema, marijuana use and cocaine use (unknown) (no (unknown) (unknown) Patient: (units (unkno wn) date) Dameon Caputo MR#: unknown) [id number] (unknown) (no (unknown) (unknown) Plt Count 229 (units ( unknown) date) unknown) (unknown) (no (unknown) (unknown) Plt Count (units (unkn own) date) unknown) (unknown) (no (unknown) (unknown) Positive End (units (u nknown) date) Expiratory 5 unknown) (unknown) (no (unknown) (unknown) Potassium 4.8 (units ( unknown) date) unknown) (unknown) (no (unknown) (unknown) Potassium (units (unkn own) date) unknown) (unknown) (no (unknown) (unknown) Precedex IV 0 (units ( unknown) date) mcg/kg/hr unknown) (unknown) (no (unknown) (unknown) Pressure (units (unkno wn) date) unknown) (unknown) (no (unknown) (unknown) Protocol (units (unkno wn) date) unknown) (unknown) (no (unknown) (unknown) Provider location (units (unknown) date) (State): [place] unknown) (unknown) (no (unknown) (unknown) Provider: (units (unkn own) date) Maciej Hernandez MD unknown) (unknown) (no (unknown) (unknown) Pulse Oximetry (units (unknown) date) 100 100 95 unknown) (unknown) (no (unknown) (unknown) Pulse Oximetry (units (unknown) date) 100 98 unknown) (unknown) (no (unknown) (unknown) Pulse Oximetry 99 (units (unknown) date) unknown) (unknown) (no (unknown) (unknown) Pulse Oximetry (units (unknown) date) unknown) (unknown) (no (unknown) (unknown) Pulse Rate 54 L (units (unknown) date) 54 L unknown) (unknown) (no (unknown) (unknown) Pulse Rate 55 L (units (unknown) date) 50 L unknown) (unknown) (no (unknown) (unknown) Pulse Rate 60 (units ( unknown) date) unknown) (unknown) (no (unknown) (unknown) Pulse Rate (units (unk nown) date) unknown) (unknown) (no (unknown) (unknown) Q6H KIRIT (units (unkno wn) date) Administration unknown) (unknown) (no (unknown) (unknown) Q6H KIRIT (units (unkno wn) date) unknown) (unknown) (no (unknown) (unknown) Quality TeleICU (units (unknown) date) unknown) (unknown) (no (unknown) (unknown) RBC 4.00 (units (unkno wn) date) unknown) (unknown) (no (unknown) (unknown) RBC (units (unkno wn) date) unknown) (unknown) (no (unknown) (unknown) RDW 13.2 (units (unkno wn) date) unknown) (unknown) (no (unknown) (unknown) RDW (units (unkno wn) date) unknown) (unknown) (no (unknown) (unknown) RT Vent Frequency (units (unknown) date) 16 unknown) (unknown) (no (unknown) (unknown) Respiratory Rate (units (unknown) date) 16 16 unknown) (unknown) (no (unknown) (unknown) Respiratory Rate (units (unknown) date) 17 16 unknown) (unknown) (no (unknown) (unknown) Respiratory Rate (units (unknown) date) 20 20 unknown) (unknown) (no (unknown) (unknown) Respiratory Rate (units (unknown) date) 21 unknown) (unknown) (no (unknown) (unknown) Result Diagrams: (units (unknown) date) unknown) (unknown) (no (unknown) (unknown) Signed By: (units (unk nown) date) unknown) (unknown) (no (unknown) (unknown) Sodium 137 (units (unk nown) date) unknown) (unknown) (no (unknown) (unknown) Sodium (units (unkno wn) date) unknown) (unknown) (no (unknown) (unknown) Subjective (units (unk nown) date) unknown) (unknown) (no (unknown) (unknown) TITRATE KIRIT 0 (units ( unknown) date) mls/hr unknown) (unknown) (no (unknown) (unknown) Teleintensivist (units (unknown) date) Progress Note unknown) (unknown) (no (unknown) (unknown) Temperature 97.2 (units (unknown) date) F L unknown) (unknown) (no (unknown) (unknown) Temperature 98.2 (units (unknown) date) F unknown) (unknown) (no (unknown) (unknown) Temperature (units (un known) date) unknown) (unknown) (no (unknown) (unknown) Time Spent With (units (unknown) date) Patient unknown) (unknown) (no (unknown) (unknown) Titration (units (unkn own) date) unknown) (unknown) (no (unknown) (unknown) Total Bilirubin (units (unknown) date) 0.5 unknown) (unknown) (no (unknown) (unknown) Total Bilirubin (units (unknown) date) unknown) (unknown) (no (unknown) (unknown) Total Creatine (units (unknown) date) Kinase 244 H unknown) (unknown) (no (unknown) (unknown) Total Creatine (units (unknown) date) Kinase 258 H unknown) (unknown) (no (unknown) (unknown) Total Creatine (units (unknown) date) Kinase 730 H D unknown) (unknown) (no (unknown) (unknown) Total Protein 6.6 (units (unknown) date) unknown) (unknown) (no (unknown) (unknown) Total Protein (units ( unknown) date) unknown) (unknown) (no (unknown) (unknown) Trade Name Harinder (units (unknown) date) PRN Reason Stop unknown) Dose Admin (unknown) (no (unknown) (unknown) Troponin I 4.630 (units (unknown) date) H* unknown) (unknown) (no (unknown) (unknown) Troponin I 5.560 (units (unknown) date) H* unknown) (unknown) (no (unknown) (unknown) Troponin I 6.810 (units (unknown) date) H* unknown) (unknown) (no (unknown) (unknown) VTE (units (unkno wn) date) unknown) (unknown) (no (unknown) (unknown) Ventilation (units (un known) date) unknown) (unknown) (no (unknown) (unknown) Ventilator (units (unk nown) date) Settings unknown) (unknown) (no (unknown) (unknown) Ventilator Tidal (units (unknown) date) Volume 460 unknown) (unknown) (no (unknown) (unknown) Ventilator (units (unk n) date) unknown) (unknown) (no (unknown) (unknown) Visit Medications (units (unknown) date) (administered) unknown) (unknown) (no (unknown) (unknown) Vital Signs (units (un known) date) unknown) (unknown) (no (unknown) (unknown) Vt/kg IBW 8 (units (un known) date) unknown) (unknown) (no (unknown) (unknown) WBC 10.3 D (units (unk nown) date) unknown) (unknown) (no (unknown) (unknown) WBC (units (unkno wn) date) unknown) (unknown) (no (unknown) (unknown) [Embedded Image (units (unknown) date) Not Available] unknown) (unknown) (no (unknown) (unknown) bupropion HCl 100 (units (unknown) date) mg tablet,12 hr unknown) sustained-release 100 mg PO DAILY #90 ea (unknown) (no (unknown) (unknown) communication: (units (unknown) date) Camera activated unknown) (unknown) (no (unknown) (unknown) dexmedeTOMIDine (units (unknown) date) in 0.9 % NaCL 400 unknown) mcg in 100 mls @ 3.6 mls/hr 07/06/22 13:45 (unknown) (no (unknown) (unknown) failure requiring (units (unknown) date) intubation in ER. unknown) Pt. started on Epi drip for angioedema. (unknown) (no (unknown) (unknown) hypertension. Labs (units (unknown) date) notable for WBC unknown) 11.1, hgb 12.3, plts 238. Creatinin 0.72. She (unknown) (no (unknown) (unknown) hypotensive and (units (unknown) date) she was continued unknown) on the epi drip. She was transferred to the (unknown) (no (unknown) (unknown) potassium (units (unkn own) date) chloride 20 mEq unknown) tablet,extended release 40 meq PO DAILY #90 tabs (unknown) (no (unknown) (unknown) propofol, (units (unkn own) date) fentanyl, and unknown) versed. On these medications her blood pressure became (unknown) (no (unknown) (unknown) spironolactone 25 (units (unknown) date) mg tablet 25 mg PO unknown) DAILY #90 tabs 04/14/22 [Rx Confirmed (unknown) (no (unknown) (unknown) today; this time (units (unknown) date) is exclusive of unknown) procedural time. (unknown) (no (unknown) (unknown) was initially (units ( unknown) date) difficult to unknown) sedate and ultimately sedation was improved on (unknown) (no (unknown) (unknown) who was admitted (units (unknown) date) 07/06/22 with unknown) sudden tongue swelling and acute respiratory Result panel [id number] (unknown) (no (unknown) (unknown) (no value) (units (unk nown) date) unknown) (unknown) (no (unknown) (unknown) (past 8 hours): (units (unknown) date) unknown) (unknown) (no (unknown) (unknown) 0.2 MCG/KG/HR (units ( unknown) date) unknown) (unknown) (no (unknown) (unknown) 00:00 07/07/22 (units (unknown) date) unknown) (unknown) (no (unknown) (unknown) 01:00 07/07/22 (units (unknown) date) unknown) (unknown) (no (unknown) (unknown) 01:20 01:20 01:20 (units (unknown) date) unknown) (unknown) (no (unknown) (unknown) 02:00 07/07/22 (units (unknown) date) unknown) (unknown) (no (unknown) (unknown) 02:00 (units (unkno wn) date) unknown) (unknown) (no (unknown) (unknown) 03:30 (units (unkno wn) date) unknown) (unknown) (no (unknown) (unknown) 04:00 07/07/22 (units (unknown) date) unknown) (unknown) (no (unknown) (unknown) 05:00 (units (unkno wn) date) unknown) (unknown) (no (unknown) (unknown) 05:45 05:45 (units (un known) date) unknown) (unknown) (no (unknown) (unknown) 06:00 (units (unkno wn) date) unknown) (unknown) (no (unknown) (unknown) 04/14/22 [Rx (units (u nknown) date) Confirmed unknown) 07/06/22] (unknown) (no (unknown) (unknown) 07/06/22 07/06/22 (units (unknown) date) 07/06/22 unknown) (unknown) (no (unknown) (unknown) 07/06/22] (units (unkn own) date) unknown) (unknown) (no (unknown) (unknown) 07/07/22 01:20 (units (unknown) date) unknown) (unknown) (no (unknown) (unknown) 07/07/22 02:00 (units (unknown) date) unknown) (unknown) (no (unknown) (unknown) 07/07/22 06:31 (units (unknown) date) unknown) (unknown) (no (unknown) (unknown) 07/07/22 07/07/22 (units (unknown) date) 07/07/22 unknown) (unknown) (no (unknown) (unknown) 07/07/22 07/07/22 (units (unknown) date) unknown) (unknown) (no (unknown) (unknown) 07/07/22 (units (unkno wn) date) unknown) (unknown) (no (unknown) (unknown) 12 UNITS/KG/HR (units (unknown) date) unknown) (unknown) (no (unknown) (unknown) 15:19 21:30 23:10 (units (unknown) date) unknown) (unknown) (no (unknown) (unknown) [id number] (units (o ) date) unknown) (unknown) (no (unknown) (unknown) ABG Base Excess (units (unknown) date) -3.0 L unknown) (unknown) (no (unknown) (unknown) ABG Base Excess (units (unknown) date) unknown) (unknown) (no (unknown) (unknown) ABG HCO3 23 (units (un known) date) unknown) (unknown) (no (unknown) (unknown) ABG HCO3 (units (o wn) date) unknown) (unknown) (no (unknown) (unknown) ABG O2 Saturation (units (unknown) date) 98 unknown) (unknown) (no (unknown) (unknown) ABG O2 Saturation (units (unknown) date) unknown) (unknown) (no (unknown) (unknown) ABG Total CO2 24 (units (unknown) date) unknown) (unknown) (no (unknown) (unknown) ABG Total CO2 (units ( unknown) date) unknown) (unknown) (no (unknown) (unknown) ABG pCO2 40.7 (units ( unknown) date) unknown) (unknown) (no (unknown) (unknown) ABG pCO2 (units (o ) date) unknown) (unknown) (no (unknown) (unknown) ABG pH 7.36 (units (un known) date) unknown) (unknown) (no (unknown) (unknown) ABG pH (units (unkno wn) date) unknown) (unknown) (no (unknown) (unknown) ABG pO2 105 H (units ( unknown) date) unknown) (unknown) (no (unknown) (unknown) ABG pO2 (units (unkno wn) date) unknown) (unknown) (no (unknown) (unknown) ACHS KIRIT (units (unkno wn) date) unknown) (unknown) (no (unknown) (unknown) ALT 32 (units (unkno wn) date) unknown) (unknown) (no (unknown) (unknown) ALT (units (unkno wn) date) unknown) (unknown) (no (unknown) (unknown) APTT 26 (units (unkno wn) date) unknown) (unknown) (no (unknown) (unknown) APTT 42 H D (units (un known) date) unknown) (unknown) (no (unknown) (unknown) APTT (units (unkno wn) date) unknown) (unknown) (no (unknown) (unknown) AST 62 H (units (unkno wn) date) unknown) (unknown) (no (unknown) (unknown) AST (units (unkno wn) date) unknown) (unknown) (no (unknown) (unknown) Age/Sex: 46 / F (units (unknown) date) unknown) (unknown) (no (unknown) (unknown) Albumin 3.5 (units (un known) date) unknown) (unknown) (no (unknown) (unknown) Albumin (units (unkno wn) date) unknown) (unknown) (no (unknown) (unknown) Albumin/Globulin (units (unknown) date) Ratio 1.1 unknown) (unknown) (no (unknown) (unknown) Albumin/Globulin (units (unknown) date) Ratio unknown) (unknown) (no (unknown) (unknown) Alkaline (units (unkno wn) date) Phosphatase 47 unknown) (unknown) (no (unknown) (unknown) Alkaline (units (unkno wn) date) Phosphatase unknown) (unknown) (no (unknown) (unknown) Assessment + Plan (units (unknown) date) unknown) (unknown) (no (unknown) (unknown) BID KIRIT (units (unkno wn) date) Administration unknown) (unknown) (no (unknown) (unknown) BUN 16 (units (unkno wn) date) unknown) (unknown) (no (unknown) (unknown) BUN (units (unkno wn) date) unknown) (unknown) (no (unknown) (unknown) BUN/Creatinine (units (unknown) date) Ratio 20.3 unknown) (unknown) (no (unknown) (unknown) BUN/Creatinine (units [...] (unknown) (unknown) Blood Pressure (units (unknown) date) 105/70 124/89 unknown) (unknown) (no (unknown) (unknown) Blood Pressure (units (unknown) date) 111/82 101/77 unknown) (unknown) (no (unknown) (unknown) Blood Pressure (units (unknown) date) 98/69 unknown) (unknown) (no (unknown) (unknown) Blood Pressure (units (unknown) date) unknown) (unknown) (no (unknown) (unknown) CK-MB (CK-2) (units (u nknown) date) 11.10 H unknown) (unknown) (no (unknown) (unknown) CK-MB (CK-2) (units (u nknown) date) 11.30 H unknown) (unknown) (no (unknown) (unknown) CK-MB (CK-2) (units (u nknown) date) 14.60 H unknown) (unknown) (no (unknown) (unknown) CK-MB (CK-2) Rel (units (unknown) date) Index 1.5 unknown) (unknown) (no (unknown) (unknown) CK-MB (CK-2) Rel (units (unknown) date) Index 4.6 unknown) (unknown) (no (unknown) (unknown) CK-MB (CK-2) Rel (units (unknown) date) Index 5.7 H unknown) (unknown) (no (unknown) (unknown) CONT KIRIT 18.3 (units ( unknown) date) mls/hr unknown) (unknown) (no (unknown) (unknown) Calcium 8.5 (units (un known) date) unknown) (unknown) (no (unknown) (unknown) Calcium (units (unkno wn) date) unknown) (unknown) (no (unknown) (unknown) Carbon Dioxide 27 (units (unknown) date) unknown) (unknown) (no (unknown) (unknown) Carbon Dioxide (units (unknown) date) unknown) (unknown) (no (unknown) (unknown) Chlorhexidine (units ( unknown) date) Gluconate 15 Ml unknown) Cup PO Not Given (unknown) (no (unknown) (unknown) Chlorhexidine (units ( unknown) date) Gluconate 15 ml unknown) 07/06/22 08:00 07/07/22 02:49 (unknown) (no (unknown) (unknown) Chloride 103 (units (u nknown) date) unknown) (unknown) (no (unknown) (unknown) Chloride (units (unkno wn) date) unknown) (unknown) (no (unknown) (unknown) Compazine 25 mg (units (unknown) date) [place] PRN PRN Nausea unknown) 07/06/22 [History Confirmed 07/06/22] (unknown) (no (unknown) (unknown) Consent obtained (units (unknown) date) for unknown) tele-therapy assistant care: Yes (unknown) (no (unknown) (unknown) Creatinine 0.79 (units (unknown) date) unknown) (unknown) (no (unknown) (unknown) Creatinine (units (unk nown) date) unknown) (unknown) (no (unknown) (unknown) Critical Care (units ( unknown) date) time: unknown) (unknown) (no (unknown) (unknown) Current (units (unkno wn) date) Medications unknown) (unknown) (no (unknown) (unknown) : 1975 (units (unknown) date) Acct:[id number] unknown) (unknown) (no (unknown) (unknown) Date of Service: (units (unknown) date) 07/05/22 unknown) (unknown) (no (unknown) (unknown) Deep Vein (units (unkn own) date) Thrombosis/Pulmona unknown) ry Embolism Present on Admission: No (unknown) (no (unknown) (unknown) Diphenhydramine (units (unknown) date) 50 Mg/Ml Vial IV unknown) 50 mg (unknown) (no (unknown) (unknown) Diphenhydramine (units (unknown) date) HCl 50 mg 07/06/22 unknown) 08:00 07/07/22 03:01 (unknown) (no (unknown) (unknown) Eos # (Auto) 0 (units (unknown) date) unknown) (unknown) (no (unknown) (unknown) Eos # (Auto) (units (u nknown) date) unknown) (unknown) (no (unknown) (unknown) Eos % (Auto) 0.3 (units (unknown) date) L unknown) (unknown) (no (unknown) (unknown) Eos % (Auto) (units (u nknown) date) unknown) (unknown) (no (unknown) (unknown) Estimated GFR > (units (unknown) date) 60 unknown) (unknown) (no (unknown) (unknown) Estimated GFR (units ( unknown) date) unknown) (unknown) (no (unknown) (unknown) Exam (units (unkno wn) date) unknown) (unknown) (no (unknown) (unknown) Exhaled (units (unkno wn) date) unknown) (unknown) (no (unknown) (unknown) Famotidine 20 (units ( unknown) date) Mg/2 Ml Vial IV 20 unknown) mg (unknown) (no (unknown) (unknown) Famotidine 20 mg (units (unknown) date) 07/06/22 10:30 unknown) 07/06/22 20:18 (unknown) (no (unknown) (unknown) FiO2 30 (units (unkno wn) date) unknown) (unknown) (no (unknown) (unknown) FiO2 (units (unkno wn) date) unknown) (unknown) (no (unknown) (unknown) Fraction of (units (un known) date) Inspired Oxygen unknown) 0.30 0.30 (unknown) (no (unknown) (unknown) Fraction of (units (un known) date) Inspired Oxygen unknown) 0.30 (unknown) (no (unknown) (unknown) Fraction of (units (un known) date) Inspired Oxygen unknown) (unknown) (no (unknown) (unknown) Generic Name Dose (units (unknown) date) Route Start Last unknown) Admin (unknown) (no (unknown) (unknown) Globulin 3.1 (units (u nknown) date) unknown) (unknown) (no (unknown) (unknown) Globulin (units (unkno wn) date) unknown) (unknown) (no (unknown) (unknown) Glucose 155 H (units ( unknown) date) unknown) (unknown) (no (unknown) (unknown) Glucose (units (unkno wn) date) unknown) (unknown) (no (unknown) (unknown) Hct 37.7 (units (unkno wn) date) unknown) (unknown) (no (unknown) (unknown) Hct (units (unkno wn) date) unknown) (unknown) (no (unknown) (unknown) Heparin Drip IV (units (unknown) date) 12.71 units/kg/hr unknown) (unknown) (no (unknown) (unknown) Heparin (units (unkno wn) date) Sodium/Dextrose unknown) 25,000 unit in 500 mls @ 17.28 mls/hr 07/06/22 23:00 (unknown) (no (unknown) (unknown) Hgb 12.5 (units (unkno wn) date) unknown) (unknown) (no (unknown) (unknown) Hgb (units (unkno wn) date) unknown) (unknown) (no (unknown) (unknown) Home Medications (units (unknown) date) unknown) (unknown) (no (unknown) (unknown) I spent a total (units (unknown) date) of [] minutes of unknown) critical care time on this patient's care (unknown) (no (unknown) (unknown) I:E Ratio 1:3.7 (units (unknown) date) unknown) (unknown) (no (unknown) (unknown) ICU for further (units (unknown) date) treatment. unknown) (unknown) (no (unknown) (unknown) IF CAMERA (units (unkn own) date) ACTIVATED, patient unknown) seen via real-time interactive audiovisual (unknown) (no (unknown) (unknown) In the ED workup (units (unknown) date) was done, vitals unknown) initially notable for tachycardia and (unknown) (no (unknown) (unknown) Inspiratory Phase (units (unknown) date) Time 0.8 unknown) (unknown) (no (unknown) (unknown) Insulin Human (units ( unknown) date) Lispro 0 unit unknown) 07/06/22 07:45 07/06/22 21:33 (unknown) (no (unknown) (unknown) Insulin Lispro (units (unknown) date) 100 Unit/Ml 3ml unknown) Vial SUBCUT Not Given (unknown) (no (unknown) (unknown) Interval history: (units (unknown) date) unknown) (unknown) (no (unknown) (unknown) [facility] (units (unknown) date) [address] unknown) [place] [address] (unknown) (no (unknown) (unknown) Laboratory (units (unk nown) date) Results - last 24 unknown) hr (unknown) (no (unknown) (unknown) Labs (units (unkno wn) date) unknown) (unknown) (no (unknown) (unknown) Labs: (units (unkno wn) date) unknown) (unknown) (no (unknown) (unknown) Lymph # (Auto) (units (unknown) date) 1100 unknown) (unknown) (no (unknown) (unknown) Lymph # (Auto) (units (unknown) date) unknown) (unknown) (no (unknown) (unknown) Lymph % (Auto) (units (unknown) date) 11.0 L unknown) (unknown) (no (unknown) (unknown) Lymph % (Auto) (units (unknown) date) unknown) (unknown) (no (unknown) (unknown) MCH 31.2 (units (unkno wn) date) unknown) (unknown) (no (unknown) (unknown) MCH (units (unkno wn) date) unknown) (unknown) (no (unknown) (unknown) MCHC 33.1 (units (unkn own) date) unknown) (unknown) (no (unknown) (unknown) MCHC (units (unkno wn) date) unknown) (unknown) (no (unknown) (unknown) MCV 94.4 (units (unkno wn) date) unknown) (unknown) (no (unknown) (unknown) MCV (units (unkno wn) date) unknown) (unknown) (no (unknown) (unknown) Medications: (units (u nknown) date) unknown) (unknown) (no (unknown) (unknown) [place] # (Auto) 700 (units (unknown) date) unknown) (unknown) (no (unknown) (unknown) [place] # (Auto) (units ( unknown) date) unknown) (unknown) (no (unknown) (unknown) [place] % (Auto) 6.5 (units (unknown) date) unknown) (unknown) (no (unknown) (unknown) [place] % (Auto) (units ( unknown) date) unknown) (unknown) (no (unknown) (unknown) Neut # (Auto) (units ( unknown) date) 8500 H unknown) (unknown) (no (unknown) (unknown) Neut # (Auto) (units ( unknown) date) unknown) (unknown) (no (unknown) (unknown) Neut % (Auto) (units ( unknown) date) 81.9 H unknown) (unknown) (no (unknown) (unknown) Neut % (Auto) (units ( unknown) date) unknown) (unknown) (no (unknown) (unknown) Objective (units (unkn own) date) unknown) (unknown) (no (unknown) (unknown) Other (units (unkno wn) date) 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/roles 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, hospitalist (unknown) (no (unknown) (unknown) Oxygen Delivery (units (unknown) date) Method Mechanical unknown) (unknown) (no (unknown) (unknown) Oxygen Delivery (units (unknown) date) Method Room Air unknown) (unknown) (no (unknown) (unknown) Oxygen Delivery (units (unknown) date) Method unknown) (unknown) (no (unknown) (unknown) Parameters: (units (un known) date) unknown) (unknown) (no (unknown) (unknown) Patient Location: (units (unknown) date) ICU unknown) (unknown) (no (unknown) (unknown) Patient Position (units (unknown) date) HOB >= 30 degrees unknown) (unknown) (no (unknown) (unknown) Patient Summary: (units (unknown) date) 46 yo W with PMH unknown) of angioedema, marijuana use and cocaine use (unknown) (no (unknown) (unknown) Patient: (units (unkno wn) date) Dameon Caputo MR#: unknown) [id number] (unknown) (no (unknown) (unknown) Plt Count 229 (units ( unknown) date) unknown) (unknown) (no (unknown) (unknown) Plt Count (units (unkn own) date) unknown) (unknown) (no (unknown) (unknown) Positive End (units (u nknown) date) Expiratory 5 unknown) (unknown) (no (unknown) (unknown) Potassium 4.8 (units ( unknown) date) unknown) (unknown) (no (unknown) (unknown) Potassium (units (unkn own) date) unknown) (unknown) (no (unknown) (unknown) Precedex IV 0 (units ( unknown) date) mcg/kg/hr unknown) (unknown) (no (unknown) (unknown) Pressure (units (unkno wn) date) unknown) (unknown) (no (unknown) (unknown) Protocol (units (unkno wn) date) unknown) (unknown) (no (unknown) (unknown) Provider location (units (unknown) date) (State): [place] unknown) (unknown) (no (unknown) (unknown) Provider: (units (unkn own) date) Maciej Hernandez MD unknown) (unknown) (no (unknown) (unknown) Pulse Oximetry (units (unknown) date) 100 100 95 unknown) (unknown) (no (unknown) (unknown) Pulse Oximetry (units (unknown) date) 100 98 unknown) (unknown) (no (unknown) (unknown) Pulse Oximetry 99 (units (unknown) date) unknown) (unknown) (no (unknown) (unknown) Pulse Oximetry (units (unknown) date) unknown) (unknown) (no (unknown) (unknown) Pulse Rate 54 L (units (unknown) date) 54 L unknown) (unknown) (no (unknown) (unknown) Pulse Rate 55 L (units (unknown) date) 50 L unknown) (unknown) (no (unknown) (unknown) Pulse Rate 60 (units ( unknown) date) unknown) (unknown) (no (unknown) (unknown) Pulse Rate (units (unk nown) date) unknown) (unknown) (no (unknown) (unknown) Q6H KIRIT (units (unkno wn) date) Administration unknown) (unknown) (no (unknown) (unknown) Q6H KIRIT (units (unkno wn) date) unknown) (unknown) (no (unknown) (unknown) Quality TeleICU (units (unknown) date) unknown) (unknown) (no (unknown) (unknown) RBC 4.00 (units (unkno wn) date) unknown) (unknown) (no (unknown) (unknown) RBC (units (unkno wn) date) unknown) (unknown) (no (unknown) (unknown) RDW 13.2 (units (unkno wn) date) unknown) (unknown) (no (unknown) (unknown) RDW (units (unkno wn) date) unknown) (unknown) (no (unknown) (unknown) RT Vent Frequency (units (unknown) date) 16 unknown) (unknown) (no (unknown) (unknown) Respiratory Rate (units (unknown) date) 16 16 unknown) (unknown) (no (unknown) (unknown) Respiratory Rate (units (unknown) date) 17 16 unknown) (unknown) (no (unknown) (unknown) Respiratory Rate (units (unknown) date) 20 20 unknown) (unknown) (no (unknown) (unknown) Respiratory Rate (units (unknown) date) 21 unknown) (unknown) (no (unknown) (unknown) Result Diagrams: (units (unknown) date) unknown) (unknown) (no (unknown) (unknown) Signed By: (units (unk nown) date) unknown) (unknown) (no (unknown) (unknown) Sodium 137 (units (unk nown) date) unknown) (unknown) (no (unknown) (unknown) Sodium (units (unkno wn) date) unknown) (unknown) (no (unknown) (unknown) Subjective (units (unk nown) date) unknown) (unknown) (no (unknown) (unknown) TITRATE KIRIT 0 (units ( unknown) date) mls/hr unknown) (unknown) (no (unknown) (unknown) Teleintensivist (units (unknown) date) Progress Note unknown) (unknown) (no (unknown) (unknown) Temperature 97.2 (units (unknown) date) F L unknown) (unknown) (no (unknown) (unknown) Temperature 98.2 (units (unknown) date) F unknown) (unknown) (no (unknown) (unknown) Temperature (units (un known) date) unknown) (unknown) (no (unknown) (unknown) Time Spent With (units (unknown) date) Patient unknown) (unknown) (no (unknown) (unknown) Titration (units (unkn own) date) unknown) (unknown) (no (unknown) (unknown) Total Bilirubin (units (unknown) date) 0.5 unknown) (unknown) (no (unknown) (unknown) Total Bilirubin (units (unknown) date) unknown) (unknown) (no (unknown) (unknown) Total Creatine (units (unknown) date) Kinase 244 H unknown) (unknown) (no (unknown) (unknown) Total Creatine (units (unknown) date) Kinase 258 H unknown) (unknown) (no (unknown) (unknown) Total Creatine (units (unknown) date) Kinase 730 H D unknown) (unknown) (no (unknown) (unknown) Total Protein 6.6 (units (unknown) date) unknown) (unknown) (no (unknown) (unknown) Total Protein (units ( unknown) date) unknown) (unknown) (no (unknown) (unknown) Trade Name Freq (units (unknown) date) PRN Reason Stop unknown) Dose Admin (unknown) (no (unknown) (unknown) Troponin I 4.630 (units (unknown) date) H* unknown) (unknown) (no (unknown) (unknown) Troponin I 5.560 (units (unknown) date) H* unknown) (unknown) (no (unknown) (unknown) Troponin I 6.810 (units (unknown) date) H* unknown) (unknown) (no (unknown) (unknown) VTE (units (unkno wn) date) unknown) (unknown) (no (unknown) (unknown) Ventilation (units (un known) date) unknown) (unknown) (no (unknown) (unknown) Ventilator (units (unk nown) date) Settings unknown) (unknown) (no (unknown) (unknown) Ventilator Tidal (units (unknown) date) Volume 460 unknown) (unknown) (no (unknown) (unknown) Ventilator (units (unk nown) date) unknown) (unknown) (no (unknown) (unknown) Visit Medications (units (unknown) date) (administered) unknown) (unknown) (no (unknown) (unknown) Vital Signs (units (un known) date) unknown) (unknown) (no (unknown) (unknown) Vt/kg IBW 8 (units (un known) date) unknown) (unknown) (no (unknown) (unknown) WBC 10.3 D (units (unk nown) date) unknown) (unknown) (no (unknown) (unknown) WBC (units (unkno wn) date) unknown) (unknown) (no (unknown) (unknown) [Embedded Image (units (unknown) date) Not Available] unknown) (unknown) (no (unknown) (unknown) angioedema. (units (un known) date) unknown) (unknown) (no (unknown) (unknown) bupropion HCl 100 (units (unknown) date) mg tablet,12 hr unknown) sustained-release 100 mg PO DAILY #90 ea (unknown) (no (unknown) (unknown) communication: (units (unknown) date) Camera activated unknown) (unknown) (no (unknown) (unknown) dexmedeTOMIDine (units (unknown) date) in 0.9 % NaCL 400 unknown) mcg in 100 mls @ 3.6 mls/hr 07/06/22 13:45 (unknown) (no (unknown) (unknown) failure requiring (units (unknown) date) intubation in ER. unknown) Pt. started on Epi drip and decadron for (unknown) (no (unknown) (unknown) hypertension. Labs (units (unknown) date) notable for WBC unknown) 11.1, hgb 12.3, plts 238. Creatinin 0.72. She (unknown) (no (unknown) (unknown) hypotensive and (units (unknown) date) she was continued unknown) on the epi drip. She was transferred to the (unknown) (no (unknown) (unknown) potassium (units (unkn own) date) chloride 20 mEq unknown) tablet,extended release 40 meq PO DAILY #90 tabs (unknown) (no (unknown) (unknown) propofol, (units (unkn own) date) fentanyl, and unknown) versed. On these medications her blood pressure became (unknown) (no (unknown) (unknown) spironolactone 25 (units (unknown) date) mg tablet 25 mg PO unknown) DAILY #90 tabs 04/14/22 [Rx Confirmed (unknown) (no (unknown) (unknown) today; this time (units (unknown) date) is exclusive of unknown) procedural time. (unknown) (no (unknown) (unknown) was initially (units ( unknown) date) difficult to unknown) sedate and ultimately sedation was improved on (unknown) (no (unknown) (unknown) who was admitted (units (unknown) date) 07/05/22 with unknown) sudden tongue swelling and acute respiratory Result panel 699 (unknown) (no (unknown) (unknown) (no value) (units (unk nown) date) unknown) (unknown) (no (unknown) (unknown) (past 8 hours): (units (unknown) date) unknown) (unknown) (no (unknown) (unknown) 0.2 MCG/KG/HR (units ( unknown) date) unknown) (unknown) (no (unknown) (unknown) 00:00 07/07/22 (units (unknown) date) unknown) (unknown) (no (unknown) (unknown) 01:00 07/07/22 (units (unknown) date) unknown) (unknown) (no (unknown) (unknown) 01:20 01:20 01:20 (units (unknown) date) unknown) (unknown) (no (unknown) (unknown) 02:00 07/07/22 (units (unknown) date) unknown) (unknown) (no (unknown) (unknown) 02:00 (units (unkno wn) date) unknown) (unknown) (no (unknown) (unknown) 03:30 (units (unkno wn) date) unknown) (unknown) (no (unknown) (unknown) 04:00 07/07/22 (units (unknown) date) unknown) (unknown) (no (unknown) (unknown) 05:00 (units (unkno wn) date) unknown) (unknown) (no (unknown) (unknown) 05:45 05:45 (units (un known) date) unknown) (unknown) (no (unknown) (unknown) 06:00 (units (unkno wn) date) unknown) (unknown) (no (unknown) (unknown) 04/14/22 [Rx (units (u nknown) date) Confirmed unknown) 07/06/22] (unknown) (no (unknown) (unknown) 07/06/22 07/06/22 (units (unknown) date) 07/06/22 unknown) (unknown) (no (unknown) (unknown) 07/06/22] (units (unkn own) date) unknown) (unknown) (no (unknown) (unknown) 07/06: (units (un known) date) increased to > 6, unknown) patient taken off Epi drip and heparin drip (unknown) (no (unknown) (unknown) 07/07/22 01:20 (units (unknown) date) unknown) (unknown) (no (unknown) (unknown) 07/07/22 02:00 (units (unknown) date) unknown) (unknown) (no (unknown) (unknown) 07/07/22 06:31 (units (unknown) date) unknown) (unknown) (no (unknown) (unknown) 07/07/22 07/07/22 (units (unknown) date) 07/07/22 unknown) (unknown) (no (unknown) (unknown) 07/07/22 07/07/22 (units (unknown) date) unknown) (unknown) (no (unknown) (unknown) 07/07/22 (units (unkno wn) date) unknown) (unknown) (no (unknown) (unknown) 12 UNITS/KG/HR (units (unknown) date) unknown) (unknown) (no (unknown) (unknown) 15:19 21:30 23:10 (units (unknown) date) unknown) (unknown) (no (unknown) (unknown) [id number] (units (unkno wn) date) unknown) (unknown) (no (unknown) (unknown) ABG Base Excess (units (unknown) date) -3.0 L unknown) (unknown) (no (unknown) (unknown) ABG Base Excess (units (unknown) date) unknown) (unknown) (no (unknown) (unknown) ABG HCO3 23 (units (un known) date) unknown) (unknown) (no (unknown) (unknown) ABG HCO3 (units (unkno wn) date) unknown) (unknown) (no (unknown) (unknown) ABG O2 Saturation (units (unknown) date) 98 unknown) (unknown) (no (unknown) (unknown) ABG O2 Saturation (units (unknown) date) unknown) (unknown) (no (unknown) (unknown) ABG Total CO2 24 (units (unknown) date) unknown) (unknown) (no (unknown) (unknown) ABG Total CO2 (units ( unknown) date) unknown) (unknown) (no (unknown) (unknown) ABG pCO2 40.7 (units ( unknown) date) unknown) (unknown) (no (unknown) (unknown) ABG pCO2 (units (unkno wn) date) unknown) (unknown) (no (unknown) (unknown) ABG pH 7.36 (units (un known) date) unknown) (unknown) (no (unknown) (unknown) ABG pH (units (unkno wn) date) unknown) (unknown) (no (unknown) (unknown) ABG pO2 105 H (units ( unknown) date) unknown) (unknown) (no (unknown) (unknown) ABG pO2 (units (unkno wn) date) unknown) (unknown) (no (unknown) (unknown) ACHS KIRIT (units (unkno wn) date) unknown) (unknown) (no (unknown) (unknown) ALT 32 (units (unkno wn) date) unknown) (unknown) (no (unknown) (unknown) ALT (units (unkno wn) date) unknown) (unknown) (no (unknown) (unknown) APTT 26 (units (unkno wn) date) unknown) (unknown) (no (unknown) (unknown) APTT 42 H D (units (un known) date) unknown) (unknown) (no (unknown) (unknown) APTT (units (unkno wn) date) unknown) (unknown) (no (unknown) (unknown) AST 62 H (units (unkno wn) date) unknown) (unknown) (no (unknown) (unknown) AST (units (unkno wn) date) unknown) (unknown) (no (unknown) (unknown) Age/Sex: 46 / F (units (unknown) date) unknown) (unknown) (no (unknown) (unknown) Albumin 3.5 (units (un known) date) unknown) (unknown) (no (unknown) (unknown) Albumin (units (unkno wn) date) unknown) (unknown) (no (unknown) (unknown) Albumin/Globulin (units (unknown) date) Ratio 1.1 unknown) (unknown) (no (unknown) (unknown) Albumin/Globulin (units (unknown) date) Ratio unknown) (unknown) (no (unknown) (unknown) Alkaline (units (unkno wn) date) Phosphatase 47 unknown) (unknown) (no (unknown) (unknown) Alkaline (units (unkno wn) date) Phosphatase unknown) (unknown) (no (unknown) (unknown) Assessment + Plan (units (unknown) date) unknown) (unknown) (no (unknown) (unknown) BID KIRIT (units (unkno wn) date) Administration unknown) (unknown) (no (unknown) (unknown) BUN 16 (units (unkno wn) date) unknown) (unknown) (no (unknown) (unknown) BUN (units (unkno wn) date) unknown) (unknown) (no (unknown) (unknown) BUN/Creatinine (units (unknown) date) Ratio 20.3 unknown) (unknown) (no (unknown) (unknown) BUN/Creatinine (units [...] (unknown) (unknown) Blood Pressure (units (unknown) date) 105/70 124/89 unknown) (unknown) (no (unknown) (unknown) Blood Pressure (units (unknown) date) 111/82 101/77 unknown) (unknown) (no (unknown) (unknown) Blood Pressure (units (unknown) date) 98/69 unknown) (unknown) (no (unknown) (unknown) Blood Pressure (units (unknown) date) unknown) (unknown) (no (unknown) (unknown) CK-MB (CK-2) (units (u nknown) date) 11.10 H unknown) (unknown) (no (unknown) (unknown) CK-MB (CK-2) (units (u nknown) date) 11.30 H unknown) (unknown) (no (unknown) (unknown) CK-MB (CK-2) (units (u nknown) date) 14.60 H unknown) (unknown) (no (unknown) (unknown) CK-MB (CK-2) Rel (units (unknown) date) Index 1.5 unknown) (unknown) (no (unknown) (unknown) CK-MB (CK-2) Rel (units (unknown) date) Index 4.6 unknown) (unknown) (no (unknown) (unknown) CK-MB (CK-2) Rel (units (unknown) date) Index 5.7 H unknown) (unknown) (no (unknown) (unknown) CONT KIRIT 18.3 (units ( unknown) date) mls/hr unknown) (unknown) (no (unknown) (unknown) Calcium 8.5 (units (un known) date) unknown) (unknown) (no (unknown) (unknown) Calcium (units (unkno wn) date) unknown) (unknown) (no (unknown) (unknown) Carbon Dioxide 27 (units (unknown) date) unknown) (unknown) (no (unknown) (unknown) Carbon Dioxide (units (unknown) date) unknown) (unknown) (no (unknown) (unknown) Chlorhexidine (units ( unknown) date) Gluconate 15 Ml unknown) Cup PO Not Given (unknown) (no (unknown) (unknown) Chlorhexidine (units ( unknown) date) Gluconate 15 ml unknown) 07/06/22 08:00 07/07/22 02:49 (unknown) (no (unknown) (unknown) Chloride 103 (units (u nknown) date) unknown) (unknown) (no (unknown) (unknown) Chloride (units (unkno wn) date) unknown) (unknown) (no (unknown) (unknown) Compazine 25 mg (units (unknown) date) WV PRN PRN Nausea unknown) 07/06/22 [History Confirmed 07/06/22] (unknown) (no (unknown) (unknown) Consent obtained (units (unknown) date) for unknown) tele-therapy assistant care: Yes (unknown) (no (unknown) (unknown) Creatinine 0.79 (units (unknown) date) unknown) (unknown) (no (unknown) (unknown) Creatinine (units (unk nown) date) unknown) (unknown) (no (unknown) (unknown) Critical Care (units ( unknown) date) time: unknown) (unknown) (no (unknown) (unknown) Current (units (unkno wn) date) Medications unknown) (unknown) (no (unknown) (unknown) : 1975 (units (unknown) date) Acct:[id number] unknown) (unknown) (no (unknown) (unknown) Date of Service: (units (unknown) date) 07/05/22 unknown) (unknown) (no (unknown) (unknown) Deep Vein (units (unkn own) date) Thrombosis/Pulmona unknown) ry Embolism Present on Admission: No (unknown) (no (unknown) (unknown) Diphenhydramine (units (unknown) date) 50 Mg/Ml Vial IV unknown) 50 mg (unknown) (no (unknown) (unknown) Diphenhydramine (units (unknown) date) HCl 50 mg 07/06/22 unknown) 08:00 07/07/22 03:01 (unknown) (no (unknown) (unknown) Eos # (Auto) 0 (units (unknown) date) unknown) (unknown) (no (unknown) (unknown) Eos # (Auto) (units (u nknown) date) unknown) (unknown) (no (unknown) (unknown) Eos % (Auto) 0.3 (units (unknown) date) L unknown) (unknown) (no (unknown) (unknown) Eos % (Auto) (units (u nknown) date) unknown) (unknown) (no (unknown) (unknown) Estimated GFR > (units (unknown) date) 60 unknown) (unknown) (no (unknown) (unknown) Estimated GFR (units ( unknown) date) unknown) (unknown) (no (unknown) (unknown) Exam (units (unkno wn) date) unknown) (unknown) (no (unknown) (unknown) Exhaled (units (unkno wn) date) unknown) (unknown) (no (unknown) (unknown) Famotidine 20 (units ( unknown) date) Mg/2 Ml Vial IV 20 unknown) mg (unknown) (no (unknown) (unknown) Famotidine 20 mg (units (unknown) date) 07/06/22 10:30 unknown) 07/06/22 20:18 (unknown) (no (unknown) (unknown) FiO2 30 (units (unkno wn) date) unknown) (unknown) (no (unknown) (unknown) FiO2 (units (unkno wn) date) unknown) (unknown) (no (unknown) (unknown) Fraction of (units (un known) date) Inspired Oxygen unknown) 0.30 0.30 (unknown) (no (unknown) (unknown) Fraction of (units (un known) date) Inspired Oxygen unknown) 0.30 (unknown) (no (unknown) (unknown) Fraction of (units (un known) date) Inspired Oxygen unknown) (unknown) (no (unknown) (unknown) Generic Name Dose (units (unknown) date) Route Start Last unknown) Admin (unknown) (no (unknown) (unknown) Globulin 3.1 (units (u nknown) date) unknown) (unknown) (no (unknown) (unknown) Globulin (units (unkno wn) date) unknown) (unknown) (no (unknown) (unknown) Glucose 155 H (units ( unknown) date) unknown) (unknown) (no (unknown) (unknown) Glucose (units (unkno wn) date) unknown) (unknown) (no (unknown) (unknown) Hct 37.7 (units (unkno wn) date) unknown) (unknown) (no (unknown) (unknown) Hct (units (unkno wn) date) unknown) (unknown) (no (unknown) (unknown) Heparin Drip IV (units (unknown) date) 12.71 units/kg/hr unknown) (unknown) (no (unknown) (unknown) Heparin (units (unkno wn) date) Sodium/Dextrose unknown) 25,000 unit in 500 mls @ 17.28 mls/hr 07/06/22 23:00 (unknown) (no (unknown) (unknown) Hgb 12.5 (units (unkno wn) date) unknown) (unknown) (no (unknown) (unknown) Hgb (units (unkno wn) date) unknown) (unknown) (no (unknown) (unknown) Home Medications (units (unknown) date) unknown) (unknown) (no (unknown) (unknown) I spent a total (units (unknown) date) of [] minutes of unknown) critical care time on this patient's care (unknown) (no (unknown) (unknown) I:E Ratio 1:3.7 (units (unknown) date) unknown) (unknown) (no (unknown) (unknown) IF CAMERA (units (unkn own) date) ACTIVATED, patient unknown) seen via real-time interactive audiovisual (unknown) (no (unknown) (unknown) Inspiratory Phase (units (unknown) date) Time 0.8 unknown) (unknown) (no (unknown) (unknown) Insulin Human (units ( unknown) date) Lispro 0 unit unknown) 07/06/22 07:45 07/06/22 21:33 (unknown) (no (unknown) (unknown) Insulin Lispro (units (unknown) date) 100 Unit/Ml 3ml unknown) Vial SUBCUT Not Given (unknown) (no (unknown) (unknown) Interval history: (units (unknown) date) unknown) (unknown) (no (unknown) (unknown) [facility] (units (unknown) date) [address] unknown) [place] [address] (unknown) (no (unknown) (unknown) Laboratory (units (unk nown) date) Results - last 24 unknown) hr (unknown) (no (unknown) (unknown) Labs (units (unkno wn) date) unknown) (unknown) (no (unknown) (unknown) Labs: (units (unkno wn) date) unknown) (unknown) (no (unknown) (unknown) Lymph # (Auto) (units (unknown) date) 1100 unknown) (unknown) (no (unknown) (unknown) Lymph # (Auto) (units (unknown) date) unknown) (unknown) (no (unknown) (unknown) Lymph % (Auto) (units (unknown) date) 11.0 L unknown) (unknown) (no (unknown) (unknown) Lymph % (Auto) (units (unknown) date) unknown) (unknown) (no (unknown) (unknown) MCH 31.2 (units (unkno wn) date) unknown) (unknown) (no (unknown) (unknown) MCH (units (unkno wn) date) unknown) (unknown) (no (unknown) (unknown) MCHC 33.1 (units (unkn own) date) unknown) (unknown) (no (unknown) (unknown) MCHC (units (unkno wn) date) unknown) (unknown) (no (unknown) (unknown) MCV 94.4 (units (unkno wn) date) unknown) (unknown) (no (unknown) (unknown) MCV (units (unkno wn) date) unknown) (unknown) (no (unknown) (unknown) Medications: (units (u nknown) date) unknown) (unknown) (no (unknown) (unknown) [place] # (Auto) 700 (units (unknown) date) unknown) (unknown) (no (unknown) (unknown) [place] # (Auto) (units ( unknown) date) unknown) (unknown) (no (unknown) (unknown) [place] % (Auto) 6.5 (units (unknown) date) unknown) (unknown) (no (unknown) (unknown) [place] % (Auto) (units ( unknown) date) unknown) (unknown) (no (unknown) (unknown) Neut # (Auto) (units ( unknown) date) 8500 H unknown) (unknown) (no (unknown) (unknown) Neut # (Auto) (units ( unknown) date) unknown) (unknown) (no (unknown) (unknown) Neut % (Auto) (units ( unknown) date) 81.9 H unknown) (unknown) (no (unknown) (unknown) Neut % (Auto) (units ( unknown) date) unknown) (unknown) (no (unknown) (unknown) Objective (units (unkn own) date) unknown) (unknown) (no (unknown) (unknown) Other (units (unkno wn) date) 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/roles 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, hospitalist (unknown) (no (unknown) (unknown) Oxygen Delivery (units (unknown) date) Method Mechanical unknown) (unknown) (no (unknown) (unknown) Oxygen Delivery (units (unknown) date) Method Room Air unknown) (unknown) (no (unknown) (unknown) Oxygen Delivery (units (unknown) date) Method unknown) (unknown) (no (unknown) (unknown) Parameters: (units (un known) date) unknown) (unknown) (no (unknown) (unknown) Patient Location: (units (unknown) date) ICU unknown) (unknown) (no (unknown) (unknown) Patient Position (units (unknown) date) HOB >= 30 degrees unknown) (unknown) (no (unknown) (unknown) Patient Summary: (units (unknown) date) 46 yo W with PMH unknown) of angioedema, marijuana use and cocaine use (unknown) (no (unknown) (unknown) Patient: (units (unkno wn) date) Dameon Caputo MR#: unknown) [id number] (unknown) (no (unknown) (unknown) Plt Count 229 (units ( unknown) date) unknown) (unknown) (no (unknown) (unknown) Plt Count (units (unkn own) date) unknown) (unknown) (no (unknown) (unknown) Positive End (units (u nknown) date) Expiratory 5 unknown) (unknown) (no (unknown) (unknown) Potassium 4.8 (units ( unknown) date) unknown) (unknown) (no (unknown) (unknown) Potassium (units (unkn own) date) unknown) (unknown) (no (unknown) (unknown) Precedex IV 0 (units ( unknown) date) mcg/kg/hr unknown) (unknown) (no (unknown) (unknown) Pressure (units (unkno wn) date) unknown) (unknown) (no (unknown) (unknown) Protocol (units (unkno wn) date) unknown) (unknown) (no (unknown) (unknown) Provider location (units (unknown) date) (State): [place] unknown) (unknown) (no (unknown) (unknown) Provider: (units (unkn own) date) Maciej Hernandez MD unknown) (unknown) (no (unknown) (unknown) Pulse Oximetry (units (unknown) date) 100 100 95 unknown) (unknown) (no (unknown) (unknown) Pulse Oximetry (units (unknown) date) 100 98 unknown) (unknown) (no (unknown) (unknown) Pulse Oximetry 99 (units (unknown) date) unknown) (unknown) (no (unknown) (unknown) Pulse Oximetry (units (unknown) date) unknown) (unknown) (no (unknown) (unknown) Pulse Rate 54 L (units (unknown) date) 54 L unknown) (unknown) (no (unknown) (unknown) Pulse Rate 55 L (units (unknown) date) 50 L unknown) (unknown) (no (unknown) (unknown) Pulse Rate 60 (units ( unknown) date) unknown) (unknown) (no (unknown) (unknown) Pulse Rate (units (unk nown) date) unknown) (unknown) (no (unknown) (unknown) Q6H KIRIT (units (unkno wn) date) Administration unknown) (unknown) (no (unknown) (unknown) Q6H KIRIT (units (unkno wn) date) unknown) (unknown) (no (unknown) (unknown) Quality TeleICU (units (unknown) date) unknown) (unknown) (no (unknown) (unknown) RBC 4.00 (units (unkno wn) date) unknown) (unknown) (no (unknown) (unknown) RBC (units (unkno wn) date) unknown) (unknown) (no (unknown) (unknown) RDW 13.2 (units (unkno wn) date) unknown) (unknown) (no (unknown) (unknown) RDW (units (unkno wn) date) unknown) (unknown) (no (unknown) (unknown) RT Vent Frequency (units (unknown) date) 16 unknown) (unknown) (no (unknown) (unknown) Respiratory Rate (units (unknown) date) 16 16 unknown) (unknown) (no (unknown) (unknown) Respiratory Rate (units (unknown) date) 17 16 unknown) (unknown) (no (unknown) (unknown) Respiratory Rate (units (unknown) date) 20 20 unknown) (unknown) (no (unknown) (unknown) Respiratory Rate (units (unknown) date) 21 unknown) (unknown) (no (unknown) (unknown) Result Diagrams: (units (unknown) date) unknown) (unknown) (no (unknown) (unknown) Signed By: (units (unk nown) date) unknown) (unknown) (no (unknown) (unknown) Sodium 137 (units (unk nown) date) unknown) (unknown) (no (unknown) (unknown) Sodium (units (unkno wn) date) unknown) (unknown) (no (unknown) (unknown) Subjective (units (unk nown) date) unknown) (unknown) (no (unknown) (unknown) TITRATE KIRIT 0 (units ( unknown) date) mls/hr unknown) (unknown) (no (unknown) (unknown) Teleintensivist (units (unknown) date) Progress Note unknown) (unknown) (no (unknown) (unknown) Temperature 97.2 (units (unknown) date) F L unknown) (unknown) (no (unknown) (unknown) Temperature 98.2 (units (unknown) date) F unknown) (unknown) (no (unknown) (unknown) Temperature (units (un known) date) unknown) (unknown) (no (unknown) (unknown) Time Spent With (units (unknown) date) Patient unknown) (unknown) (no (unknown) (unknown) Titration (units (unkn own) date) unknown) (unknown) (no (unknown) (unknown) Total Bilirubin (units (unknown) date) 0.5 unknown) (unknown) (no (unknown) (unknown) Total Bilirubin (units (unknown) date) unknown) (unknown) (no (unknown) (unknown) Total Creatine (units (unknown) date) Kinase 244 H unknown) (unknown) (no (unknown) (unknown) Total Creatine (units (unknown) date) Kinase 258 H unknown) (unknown) (no (unknown) (unknown) Total Creatine (units (unknown) date) Kinase 730 H D unknown) (unknown) (no (unknown) (unknown) Total Protein 6.6 (units (unknown) date) unknown) (unknown) (no (unknown) (unknown) Total Protein (units ( unknown) date) unknown) (unknown) (no (unknown) (unknown) Trade Name Freq (units (unknown) date) PRN Reason Stop unknown) Dose Admin (unknown) (no (unknown) (unknown) Troponin I 4.630 (units (unknown) date) H* unknown) (unknown) (no (unknown) (unknown) Troponin I 5.560 (units (unknown) date) H* unknown) (unknown) (no (unknown) (unknown) Troponin I 6.810 (units (unknown) date) H* unknown) (unknown) (no (unknown) (unknown) VTE (units (unkno wn) date) unknown) (unknown) (no (unknown) (unknown) Ventilation (units (un known) date) unknown) (unknown) (no (unknown) (unknown) Ventilator (units (unk nown) date) Settings unknown) (unknown) (no (unknown) (unknown) Ventilator Tidal (units (unknown) date) Volume 460 unknown) (unknown) (no (unknown) (unknown) Ventilator (units (unk nown) date) unknown) (unknown) (no (unknown) (unknown) Visit Medications (units (unknown) date) (administered) unknown) (unknown) (no (unknown) (unknown) Vital Signs (units (un known) date) unknown) (unknown) (no (unknown) (unknown) Vt/kg IBW 8 (units (un known) date) unknown) (unknown) (no (unknown) (unknown) WBC 10.3 D (units (unk nown) date) unknown) (unknown) (no (unknown) (unknown) WBC (units (unkno wn) date) unknown) (unknown) (no (unknown) (unknown) [Embedded Image (units (unknown) date) Not Available] unknown) (unknown) (no (unknown) (unknown) benadrul, and (units ( unknown) date) famotidine for unknown) angioedema. (unknown) (no (unknown) (unknown) bupropion HCl 100 (units (unknown) date) mg tablet,12 hr unknown) sustained-release 100 mg PO DAILY #90 ea (unknown) (no (unknown) (unknown) communication: (units (unknown) date) Camera activated unknown) (unknown) (no (unknown) (unknown) dexmedeTOMIDine (units (unknown) date) in 0.9 % NaCL 400 unknown) mcg in 100 mls @ 3.6 mls/hr 07/06/22 13:45 (unknown) (no (unknown) (unknown) failure requiring (units (unknown) date) intubation in ER. unknown) Pt. started on Epi drip, decadron, (unknown) (no (unknown) (unknown) potassium (units (unkn own) date) chloride 20 mEq unknown) tablet,extended release 40 meq PO DAILY #90 tabs (unknown) (no (unknown) (unknown) spironolactone 25 (units (unknown) date) mg tablet 25 mg PO unknown) DAILY #90 tabs 04/14/22 [Rx Confirmed (unknown) (no (unknown) (unknown) started for (units (un known) date) NSTEMI. ECHO unknown) showed (unknown) (no (unknown) (unknown) today; this time (units (unknown) date) is exclusive of unknown) procedural time. (unknown) (no (unknown) (unknown) who was admitted (units (unknown) date) 07/05/22 with unknown) sudden tongue swelling and acute respiratory Result panel 700 (unknown) (no (unknown) (unknown) (no value) (units (unk nown) date) unknown) (unknown) (no (unknown) (unknown) (past 8 hours): (units (unknown) date) unknown) (unknown) (no (unknown) (unknown) 0.2 MCG/KG/HR (units ( unknown) date) unknown) (unknown) (no (unknown) (unknown) 00:00 07/07/22 (units (unknown) date) unknown) (unknown) (no (unknown) (unknown) 01:00 07/07/22 (units (unknown) date) unknown) (unknown) (no (unknown) (unknown) 01:20 01:20 01:20 (units (unknown) date) unknown) (unknown) (no (unknown) (unknown) 02:00 07/07/22 (units (unknown) date) unknown) (unknown) (no (unknown) (unknown) 02:00 (units (unkno wn) date) unknown) (unknown) (no (unknown) (unknown) 03:30 (units (unkno wn) date) unknown) (unknown) (no (unknown) (unknown) 04:00 07/07/22 (units (unknown) date) unknown) (unknown) (no (unknown) (unknown) 05:00 (units (unkno wn) date) unknown) (unknown) (no (unknown) (unknown) 05:45 05:45 (units (un known) date) unknown) (unknown) (no (unknown) (unknown) 06:00 (units (unkno wn) date) unknown) (unknown) (no (unknown) (unknown) 04/14/22 [Rx (units (u nknown) date) Confirmed unknown) 07/06/22] (unknown) (no (unknown) (unknown) 07/06/22 07/06/22 (units (unknown) date) 07/06/22 unknown) (unknown) (no (unknown) (unknown) 07/06/22] (units (unkn own) date) unknown) (unknown) (no (unknown) (unknown) 07/06: (units (un known) date) increased to > 6, unknown) patient taken off Epi drip and heparin drip (unknown) (no (unknown) (unknown) 07/07/22 01:20 (units (unknown) date) unknown) (unknown) (no (unknown) (unknown) 07/07/22 02:00 (units (unknown) date) unknown) (unknown) (no (unknown) (unknown) 07/07/22 06:31 (units (unknown) date) unknown) (unknown) (no (unknown) (unknown) 07/07/22 07/07/22 (units (unknown) date) 07/07/22 unknown) (unknown) (no (unknown) (unknown) 07/07/22 07/07/22 (units (unknown) date) unknown) (unknown) (no (unknown) (unknown) 07/07/22 (units (unkno wn) date) unknown) (unknown) (no (unknown) (unknown) 12 UNITS/KG/HR (units (unknown) date) unknown) (unknown) (no (unknown) (unknown) 15:19 21:30 23:10 (units (unknown) date) unknown) (unknown) (no (unknown) (unknown) [address] (units (unkno wn) date) unknown) (unknown) (no (unknown) (unknown) ABG Base Excess (units (unknown) date) -3.0 L unknown) (unknown) (no (unknown) (unknown) ABG Base Excess (units (unknown) date) unknown) (unknown) (no (unknown) (unknown) ABG HCO3 23 (units (un known) date) unknown) (unknown) (no (unknown) (unknown) ABG HCO3 (units (unkno wn) date) unknown) (unknown) (no (unknown) (unknown) ABG O2 Saturation (units (unknown) date) 98 unknown) (unknown) (no (unknown) (unknown) ABG O2 Saturation (units (unknown) date) unknown) (unknown) (no (unknown) (unknown) ABG Total CO2 24 (units (unknown) date) unknown) (unknown) (no (unknown) (unknown) ABG Total CO2 (units ( unknown) date) unknown) (unknown) (no (unknown) (unknown) ABG pCO2 40.7 (units ( unknown) date) unknown) (unknown) (no (unknown) (unknown) ABG pCO2 (units (unkno wn) date) unknown) (unknown) (no (unknown) (unknown) ABG pH 7.36 (units (un known) date) unknown) (unknown) (no (unknown) (unknown) ABG pH (units (o wn) date) unknown) (unknown) (no (unknown) (unknown) ABG pO2 105 H (units ( unknown) date) unknown) (unknown) (no (unknown) (unknown) ABG pO2 (units (unkno wn) date) unknown) (unknown) (no (unknown) (unknown) ACHS KIRIT (units (unkno wn) date) unknown) (unknown) (no (unknown) (unknown) ALT 32 (units (unkno wn) date) unknown) (unknown) (no (unknown) (unknown) ALT (units (unkno wn) date) unknown) (unknown) (no (unknown) (unknown) APTT 26 (units (unkno wn) date) unknown) (unknown) (no (unknown) (unknown) APTT 42 H D (units (un known) date) unknown) (unknown) (no (unknown) (unknown) APTT (units (unkno wn) date) unknown) (unknown) (no (unknown) (unknown) AST 62 H (units (unkno wn) date) unknown) (unknown) (no (unknown) (unknown) AST (units (unkno wn) date) unknown) (unknown) (no (unknown) (unknown) Age/Sex: 46 / F (units (unknown) date) unknown) (unknown) (no (unknown) (unknown) Albumin 3.5 (units (un known) date) unknown) (unknown) (no (unknown) (unknown) Albumin (units (unkno wn) date) unknown) (unknown) (no (unknown) (unknown) Albumin/Globulin (units (unknown) date) Ratio 1.1 unknown) (unknown) (no (unknown) (unknown) Albumin/Globulin (units (unknown) date) Ratio unknown) (unknown) (no (unknown) (unknown) Alkaline (units (unkno wn) date) Phosphatase 47 unknown) (unknown) (no (unknown) (unknown) Alkaline (units (unkno wn) date) Phosphatase unknown) (unknown) (no (unknown) (unknown) Assessment + Plan (units (unknown) date) unknown) (unknown) (no (unknown) (unknown) BID KIRIT (units (unkno wn) date) Administration unknown) (unknown) (no (unknown) (unknown) BUN 16 (units (unkno wn) date) unknown) (unknown) (no (unknown) (unknown) BUN (units (unkno wn) date) unknown) (unknown) (no (unknown) (unknown) BUN/Creatinine (units (unknown) date) Ratio 20.3 unknown) (unknown) (no (unknown) (unknown) BUN/Creatinine (units [...] (unknown) (unknown) Blood Pressure (units (unknown) date) 105/70 124/89 unknown) (unknown) (no (unknown) (unknown) Blood Pressure (units (unknown) date) 111/82 101/77 unknown) (unknown) (no (unknown) (unknown) Blood Pressure (units (unknown) date) 98/69 unknown) (unknown) (no (unknown) (unknown) Blood Pressure (units (unknown) date) unknown) (unknown) (no (unknown) (unknown) CK-MB (CK-2) (units (u nknown) date) 11.10 H unknown) (unknown) (no (unknown) (unknown) CK-MB (CK-2) (units (u nknown) date) 11.30 H unknown) (unknown) (no (unknown) (unknown) CK-MB (CK-2) (units (u nknown) date) 14.60 H unknown) (unknown) (no (unknown) (unknown) CK-MB (CK-2) Rel (units (unknown) date) Index 1.5 unknown) (unknown) (no (unknown) (unknown) CK-MB (CK-2) Rel (units (unknown) date) Index 4.6 unknown) (unknown) (no (unknown) (unknown) CK-MB (CK-2) Rel (units (unknown) date) Index 5.7 H unknown) (unknown) (no (unknown) (unknown) CONT KIRIT 18.3 (units ( unknown) date) mls/hr unknown) (unknown) (no (unknown) (unknown) Calcium 8.5 (units (un known) date) unknown) (unknown) (no (unknown) (unknown) Calcium (units (unkno wn) date) unknown) (unknown) (no (unknown) (unknown) Carbon Dioxide 27 (units (unknown) date) unknown) (unknown) (no (unknown) (unknown) Carbon Dioxide (units (unknown) date) unknown) (unknown) (no (unknown) (unknown) Chlorhexidine (units ( unknown) date) Gluconate 15 Ml unknown) Cup PO Not Given (unknown) (no (unknown) (unknown) Chlorhexidine (units ( unknown) date) Gluconate 15 ml unknown) 07/06/22 08:00 07/07/22 02:49 (unknown) (no (unknown) (unknown) Chloride 103 (units (u nknown) date) unknown) (unknown) (no (unknown) (unknown) Chloride (units (unkno wn) date) unknown) (unknown) (no (unknown) (unknown) Compazine 25 mg (units (unknown) date) WV PRN PRN Nausea unknown) 07/06/22 [History Confirmed 07/06/22] (unknown) (no (unknown) (unknown) Consent obtained (units (unknown) date) for unknown) tele-therapy assistant care: Yes (unknown) (no (unknown) (unknown) Creatinine 0.79 (units (unknown) date) unknown) (unknown) (no (unknown) (unknown) Creatinine (units (unk nown) date) unknown) (unknown) (no (unknown) (unknown) Critical Care (units ( unknown) date) time: unknown) (unknown) (no (unknown) (unknown) Current (units (unkno wn) date) Medications unknown) (unknown) (no (unknown) (unknown) : 1975 (units (unknown) date) Acct:[id number] unknown) (unknown) (no (unknown) (unknown) Date of Service: (units (unknown) date) 07/05/22 unknown) (unknown) (no (unknown) (unknown) Deep Vein (units (unkn own) date) Thrombosis/Pulmona unknown) ry Embolism Present on Admission: No (unknown) (no (unknown) (unknown) Diphenhydramine (units (unknown) date) 50 Mg/Ml Vial IV unknown) 50 mg (unknown) (no (unknown) (unknown) Diphenhydramine (units (unknown) date) HCl 50 mg 07/06/22 unknown) 08:00 07/07/22 03:01 (unknown) (no (unknown) (unknown) Eos # (Auto) 0 (units (unknown) date) unknown) (unknown) (no (unknown) (unknown) Eos # (Auto) (units (u nknown) date) unknown) (unknown) (no (unknown) (unknown) Eos % (Auto) 0.3 (units (unknown) date) L unknown) (unknown) (no (unknown) (unknown) Eos % (Auto) (units (u nknown) date) unknown) (unknown) (no (unknown) (unknown) Estimated GFR > (units (unknown) date) 60 unknown) (unknown) (no (unknown) (unknown) Estimated GFR (units ( unknown) date) unknown) (unknown) (no (unknown) (unknown) Exam (units (unkno wn) date) unknown) (unknown) (no (unknown) (unknown) Exhaled (units (unkno wn) date) unknown) (unknown) (no (unknown) (unknown) Famotidine 20 (units ( unknown) date) Mg/2 Ml Vial IV 20 unknown) mg (unknown) (no (unknown) (unknown) Famotidine 20 mg (units (unknown) date) 07/06/22 10:30 unknown) 07/06/22 20:18 (unknown) (no (unknown) (unknown) FiO2 30 (units (unkno wn) date) unknown) (unknown) (no (unknown) (unknown) FiO2 (units (unkno wn) date) unknown) (unknown) (no (unknown) (unknown) Fraction of (units (un known) date) Inspired Oxygen unknown) 0.30 0.30 (unknown) (no (unknown) (unknown) Fraction of (units (un known) date) Inspired Oxygen unknown) 0.30 (unknown) (no (unknown) (unknown) Fraction of (units (un known) date) Inspired Oxygen unknown) (unknown) (no (unknown) (unknown) Generic Name Dose (units (unknown) date) Route Start Last unknown) Admin (unknown) (no (unknown) (unknown) Globulin 3.1 (units (u nknown) date) unknown) (unknown) (no (unknown) (unknown) Globulin (units (unkno wn) date) unknown) (unknown) (no (unknown) (unknown) Glucose 155 H (units ( unknown) date) unknown) (unknown) (no (unknown) (unknown) Glucose (units (unkno wn) date) unknown) (unknown) (no (unknown) (unknown) Hct 37.7 (units (unkno wn) date) unknown) (unknown) (no (unknown) (unknown) Hct (units (unkno wn) date) unknown) (unknown) (no (unknown) (unknown) Heparin Drip IV (units (unknown) date) 12.71 units/kg/hr unknown) (unknown) (no (unknown) (unknown) Heparin (units (unkno wn) date) Sodium/Dextrose unknown) 25,000 unit in 500 mls @ 17.28 mls/hr 07/06/22 23:00 (unknown) (no (unknown) (unknown) Hgb 12.5 (units (unkno wn) date) unknown) (unknown) (no (unknown) (unknown) Hgb (units (unkno wn) date) unknown) (unknown) (no (unknown) (unknown) Home Medications (units (unknown) date) unknown) (unknown) (no (unknown) (unknown) I spent a total (units (unknown) date) of [] minutes of unknown) critical care time on this patient's care (unknown) (no (unknown) (unknown) I:E Ratio 1:3.7 (units (unknown) date) unknown) (unknown) (no (unknown) (unknown) IF CAMERA (units (unkn own) date) ACTIVATED, patient unknown) seen via real-time interactive audiovisual (unknown) (no (unknown) (unknown) Inspiratory Phase (units (unknown) date) Time 0.8 unknown) (unknown) (no (unknown) (unknown) Insulin Human (units ( unknown) date) Lispro 0 unit unknown) 07/06/22 07:45 07/06/22 21:33 (unknown) (no (unknown) (unknown) Insulin Lispro (units (unknown) date) 100 Unit/Ml 3ml unknown) Vial SUBCUT Not Given (unknown) (no (unknown) (unknown) Interval history: (units (unknown) date) unknown) (unknown) (no (unknown) (unknown) [facility] (units (unknown) date) [address] [place] [address] unknown) [place] [address] (unknown) (no (unknown) (unknown) Laboratory (units (unk nown) date) Results - last 24 unknown) hr (unknown) (no (unknown) (unknown) Labs (units (unkno wn) date) unknown) (unknown) (no (unknown) (unknown) Labs: (units (unkno wn) date) unknown) (unknown) (no (unknown) (unknown) Lymph # (Auto) (units (unknown) date) 1100 unknown) (unknown) (no (unknown) (unknown) Lymph # (Auto) (units (unknown) date) unknown) (unknown) (no (unknown) (unknown) Lymph % (Auto) (units (unknown) date) 11.0 L unknown) (unknown) (no (unknown) (unknown) Lymph % (Auto) (units (unknown) date) unknown) (unknown) (no (unknown) (unknown) MCH 31.2 (units (unkno wn) date) unknown) (unknown) (no (unknown) (unknown) MCH (units (unkno wn) date) unknown) (unknown) (no (unknown) (unknown) MCHC 33.1 (units (unkn own) date) unknown) (unknown) (no (unknown) (unknown) MCHC (units (unkno wn) date) unknown) (unknown) (no (unknown) (unknown) MCV 94.4 (units (unkno wn) date) unknown) (unknown) (no (unknown) (unknown) MCV (units (unkno wn) date) unknown) (unknown) (no (unknown) (unknown) Medications: (units (u nknown) date) unknown) (unknown) (no (unknown) (unknown) [place] # (Auto) 700 (units (unknown) date) unknown) (unknown) (no (unknown) (unknown) [place] # (Auto) (units ( unknown) date) unknown) (unknown) (no (unknown) (unknown) [place] % (Auto) 6.5 (units (unknown) date) unknown) (unknown) (no (unknown) (unknown) [place] % (Auto) (units ( unknown) date) unknown) (unknown) (no (unknown) (unknown) Neut # (Auto) (units ( unknown) date) 8500 H unknown) (unknown) (no (unknown) (unknown) Neut # (Auto) (units ( unknown) date) unknown) (unknown) (no (unknown) (unknown) Neut % (Auto) (units ( unknown) date) 81.9 H unknown) (unknown) (no (unknown) (unknown) Neut % (Auto) (units ( unknown) date) unknown) (unknown) (no (unknown) (unknown) Objective (units (unkn own) date) unknown) (unknown) (no (unknown) (unknown) Other (units (unkno wn) date) 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/roles 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, hospitalist (unknown) (no (unknown) (unknown) Oxygen Delivery (units (unknown) date) Method Mechanical unknown) (unknown) (no (unknown) (unknown) Oxygen Delivery (units (unknown) date) Method Room Air unknown) (unknown) (no (unknown) (unknown) Oxygen Delivery (units (unknown) date) Method unknown) (unknown) (no (unknown) (unknown) Parameters: (units (un known) date) unknown) (unknown) (no (unknown) (unknown) Patient Location: (units (unknown) date) ICU unknown) (unknown) (no (unknown) (unknown) Patient Position (units (unknown) date) HOB >= 30 degrees unknown) (unknown) (no (unknown) (unknown) Patient Summary: (units (unknown) date) 46 yo W with PMH unknown) of angioedema, marijuana use and cocaine use (unknown) (no (unknown) (unknown) Patient: (units (unkno wn) date) Dameon Caputo MR#: unknown) [id number] (unknown) (no (unknown) (unknown) Plt Count 229 (units ( unknown) date) unknown) (unknown) (no (unknown) (unknown) Plt Count (units (unkn own) date) unknown) (unknown) (no (unknown) (unknown) Positive End (units (u nknown) date) Expiratory 5 unknown) (unknown) (no (unknown) (unknown) Potassium 4.8 (units ( unknown) date) unknown) (unknown) (no (unknown) (unknown) Potassium (units (unkn own) date) unknown) (unknown) (no (unknown) (unknown) Precedex IV 0 (units ( unknown) date) mcg/kg/hr unknown) (unknown) (no (unknown) (unknown) Pressure (units (unkno wn) date) unknown) (unknown) (no (unknown) (unknown) Protocol (units (unkno wn) date) unknown) (unknown) (no (unknown) (unknown) Provider location (units (unknown) date) (State): [place] unknown) (unknown) (no (unknown) (unknown) Provider: (units (unkn own) date) Maciej Hernandez MD unknown) (unknown) (no (unknown) (unknown) Pulse Oximetry (units (unknown) date) 100 100 95 unknown) (unknown) (no (unknown) (unknown) Pulse Oximetry (units (unknown) date) 100 98 unknown) (unknown) (no (unknown) (unknown) Pulse Oximetry 99 (units (unknown) date) unknown) (unknown) (no (unknown) (unknown) Pulse Oximetry (units (unknown) date) unknown) (unknown) (no (unknown) (unknown) Pulse Rate 54 L (units (unknown) date) 54 L unknown) (unknown) (no (unknown) (unknown) Pulse Rate 55 L (units (unknown) date) 50 L unknown) (unknown) (no (unknown) (unknown) Pulse Rate 60 (units ( unknown) date) unknown) (unknown) (no (unknown) (unknown) Pulse Rate (units (unk nown) date) unknown) (unknown) (no (unknown) (unknown) Q6H KIRIT (units (unkno wn) date) Administration unknown) (unknown) (no (unknown) (unknown) Q6H KIRIT (units (unkno wn) date) unknown) (unknown) (no (unknown) (unknown) Quality TeleICU (units (unknown) date) unknown) (unknown) (no (unknown) (unknown) RBC 4.00 (units (unkno wn) date) unknown) (unknown) (no (unknown) (unknown) RBC (units (unkno wn) date) unknown) (unknown) (no (unknown) (unknown) RDW 13.2 (units (unkno wn) date) unknown) (unknown) (no (unknown) (unknown) RDW (units (unkno wn) date) unknown) (unknown) (no (unknown) (unknown) RT Vent Frequency (units (unknown) date) 16 unknown) (unknown) (no (unknown) (unknown) Respiratory Rate (units (unknown) date) 16 16 unknown) (unknown) (no (unknown) (unknown) Respiratory Rate (units (unknown) date) 17 16 unknown) (unknown) (no (unknown) (unknown) Respiratory Rate (units (unknown) date) 20 20 unknown) (unknown) (no (unknown) (unknown) Respiratory Rate (units (unknown) date) 21 unknown) (unknown) (no (unknown) (unknown) Result Diagrams: (units (unknown) date) unknown) (unknown) (no (unknown) (unknown) Signed By: (units (unk nown) date) unknown) (unknown) (no (unknown) (unknown) Sodium 137 (units (unk nown) date) unknown) (unknown) (no (unknown) (unknown) Sodium (units (unkno wn) date) unknown) (unknown) (no (unknown) (unknown) Subjective (units (unk nown) date) unknown) (unknown) (no (unknown) (unknown) TITRATE KIRIT 0 (units ( unknown) date) mls/hr unknown) (unknown) (no (unknown) (unknown) Teleintensivist (units (unknown) date) Progress Note unknown) (unknown) (no (unknown) (unknown) Temperature 97.2 (units (unknown) date) F L unknown) (unknown) (no (unknown) (unknown) Temperature 98.2 (units (unknown) date) F unknown) (unknown) (no (unknown) (unknown) Temperature (units (un known) date) unknown) (unknown) (no (unknown) (unknown) Time Spent With (units (unknown) date) Patient unknown) (unknown) (no (unknown) (unknown) Titration (units (unkn own) date) unknown) (unknown) (no (unknown) (unknown) Total Bilirubin (units (unknown) date) 0.5 unknown) (unknown) (no (unknown) (unknown) Total Bilirubin (units (unknown) date) unknown) (unknown) (no (unknown) (unknown) Total Creatine (units (unknown) date) Kinase 244 H unknown) (unknown) (no (unknown) (unknown) Total Creatine (units (unknown) date) Kinase 258 H unknown) (unknown) (no (unknown) (unknown) Total Creatine (units (unknown) date) Kinase 730 H D unknown) (unknown) (no (unknown) (unknown) Total Protein 6.6 (units (unknown) date) unknown) (unknown) (no (unknown) (unknown) Total Protein (units ( unknown) date) unknown) (unknown) (no (unknown) (unknown) Trade Name Freq (units (unknown) date) PRN Reason Stop unknown) Dose Admin (unknown) (no (unknown) (unknown) Troponin I 4.630 (units (unknown) date) H* unknown) (unknown) (no (unknown) (unknown) Troponin I 5.560 (units (unknown) date) H* unknown) (unknown) (no (unknown) (unknown) Troponin I 6.810 (units (unknown) date) H* unknown) (unknown) (no (unknown) (unknown) VTE (units (unkno wn) date) unknown) (unknown) (no (unknown) (unknown) Ventilation (units (un known) date) unknown) (unknown) (no (unknown) (unknown) Ventilator (units (unk nown) date) Settings unknown) (unknown) (no (unknown) (unknown) Ventilator Tidal (units (unknown) date) Volume 460 unknown) (unknown) (no (unknown) (unknown) Ventilator (units (unk nown) date) unknown) (unknown) (no (unknown) (unknown) Visit Medications (units (unknown) date) (administered) unknown) (unknown) (no (unknown) (unknown) Vital Signs (units (un known) date) unknown) (unknown) (no (unknown) (unknown) Vt/kg IBW 8 (units (un known) date) unknown) (unknown) (no (unknown) (unknown) WBC 10.3 D (units (unk nown) date) unknown) (unknown) (no (unknown) (unknown) WBC (units (unkno wn) date) unknown) (unknown) (no (unknown) (unknown) [Embedded Image (units (unknown) date) Not Available] unknown) (unknown) (no (unknown) (unknown) benadrul, and (units ( unknown) date) famotidine for unknown) angioedema. (unknown) (no (unknown) (unknown) bupropion HCl 100 (units (unknown) date) mg tablet,12 hr unknown) sustained-release 100 mg PO DAILY #90 ea (unknown) (no (unknown) (unknown) communication: (units (unknown) date) Camera activated unknown) (unknown) (no (unknown) (unknown) dexmedeTOMIDine (units (unknown) date) in 0.9 % NaCL 400 unknown) mcg in 100 mls @ 3.6 mls/hr 07/06/22 13:45 (unknown) (no (unknown) (unknown) failure requiring (units (unknown) date) intubation in ER. unknown) Pt. started on Epi drip, decadron, (unknown) (no (unknown) (unknown) potassium (units (unkn own) date) chloride 20 mEq unknown) tablet,extended release 40 meq PO DAILY #90 tabs (unknown) (no (unknown) (unknown) spironolactone 25 (units (unknown) date) mg tablet 25 mg PO unknown) DAILY #90 tabs 04/14/22 [Rx Confirmed (unknown) (no (unknown) (unknown) started for (units (un known) date) NSTEMI. 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 (unknown) (no (unknown) (unknown) who was admitted (units (unknown) date) 07/05/22 with unknown) sudden tongue swelling and acute respiratory Result panel 701 (unknown) (no (unknown) (unknown) (no value) (units (unk nown) date) unknown) (unknown) (no (unknown) (unknown) (past 8 hours): (units (unknown) date) unknown) (unknown) (no (unknown) (unknown) 00:00 07/07/22 (units (unknown) date) unknown) (unknown) (no (unknown) (unknown) 00:00 (units (unkno wn) date) unknown) (unknown) (no (unknown) (unknown) 01:00 07/07/22 (units (unknown) date) unknown) (unknown) (no (unknown) (unknown) 01:20 01:20 01:20 (units (unknown) date) unknown) (unknown) (no (unknown) (unknown) 02:00 07/07/22 (units (unknown) date) unknown) (unknown) (no (unknown) (unknown) 02:00 (units (unkno wn) date) unknown) (unknown) (no (unknown) (unknown) 03:30 07/07/22 (units (unknown) date) unknown) (unknown) (no (unknown) (unknown) 04:00 (units (unkno wn) date) unknown) (unknown) (no (unknown) (unknown) 07/05/22 07/06/22 (units (unknown) date) 07/06/22 unknown) (unknown) (no (unknown) (unknown) 07/06/22 07/06/22 (units (unknown) date) 07/06/22 unknown) (unknown) (no (unknown) (unknown) 07/06/22 (units (unkno wn) date) unknown) (unknown) (no (unknown) (unknown) 07/07/22 01:20 (units (unknown) date) unknown) (unknown) (no (unknown) (unknown) 07/07/22 07/07/22 (units (unknown) date) 07/07/22 unknown) (unknown) (no (unknown) (unknown) 07/07/22 (units (unkno wn) date) unknown) (unknown) (no (unknown) (unknown) 15:19 21:30 23:10 (units (unknown) date) unknown) (unknown) (no (unknown) (unknown) 22:00 07/06/22 (units (unknown) date) unknown) (unknown) (no (unknown) (unknown) 22:56 04:45 04:45 (units (unknown) date) unknown) (unknown) (no (unknown) (unknown) 23:00 07/07/22 (units (unknown) date) unknown) (unknown) (no (unknown) (unknown) [address] (units (unkno wn) date) unknown) (unknown) (no (unknown) (unknown) 46-year-old female (units (unknown) date) with polysubstance unknown) dependence specifically cocaine and (unknown) (no (unknown) (unknown) ABD: Soft, NT/ND, (units (unknown) date) BT present in all 4 unknown) quadrants, no organomegaly or masses (unknown) (no (unknown) (unknown) ABG Base Excess (units (unknown) date) -3.0 L unknown) (unknown) (no (unknown) (unknown) ABG Base Excess (units (unknown) date) unknown) (unknown) (no (unknown) (unknown) ABG HCO3 23 (units (un known) date) unknown) (unknown) (no (unknown) (unknown) ABG HCO3 (units (unkno wn) date) unknown) (unknown) (no (unknown) (unknown) ABG O2 Saturation (units (unknown) date) 98 unknown) (unknown) (no (unknown) (unknown) ABG O2 Saturation (units (unknown) date) unknown) (unknown) (no (unknown) (unknown) ABG Total CO2 24 (units (unknown) date) unknown) (unknown) (no (unknown) (unknown) ABG Total CO2 (units ( unknown) date) unknown) (unknown) (no (unknown) (unknown) ABG pCO2 40.7 (units ( unknown) date) unknown) (unknown) (no (unknown) (unknown) ABG pCO2 (units (unkno wn) date) unknown) (unknown) (no (unknown) (unknown) ABG pH 7.36 (units (un known) date) unknown) (unknown) (no (unknown) (unknown) ABG pH (units (unkno wn) date) unknown) (unknown) (no (unknown) (unknown) ABG pO2 105 H (units ( unknown) date) unknown) (unknown) (no (unknown) (unknown) ABG pO2 (units (unkno wn) date) unknown) (unknown) (no (unknown) (unknown) ALT 32 (units (unkno wn) date) unknown) (unknown) (no (unknown) (unknown) ALT 35 H (units (unkno wn) date) unknown) (unknown) (no (unknown) (unknown) ALT (units (unkno wn) date) unknown) (unknown) (no (unknown) (unknown) APTT 26 (units (unkno wn) date) unknown) (unknown) (no (unknown) (unknown) APTT (units (unkno wn) date) unknown) (unknown) (no (unknown) (unknown) AST 62 H (units (unkno wn) date) unknown) (unknown) (no (unknown) (unknown) AST 70 H (units (unkno wn) date) unknown) (unknown) (no (unknown) (unknown) AST (units (unkno wn) date) unknown) (unknown) (no (unknown) (unknown) Abscess (units (unkno wn) date) unknown) (unknown) (no (unknown) (unknown) Age/Sex: 46 / F (units (unknown) date) unknown) (unknown) (no (unknown) (unknown) Albumin 3.5 (units (un known) date) unknown) (unknown) (no (unknown) (unknown) Albumin 4.2 (units (un known) date) unknown) (unknown) (no (unknown) (unknown) Albumin (units (unkno wn) date) unknown) (unknown) (no (unknown) (unknown) Albumin/Globulin (units (unknown) date) Ratio 1.1 unknown) (unknown) (no (unknown) (unknown) Albumin/Globulin (units (unknown) date) Ratio 1.2 unknown) (unknown) (no (unknown) (unknown) Albumin/Globulin (units (unknown) date) Ratio unknown) (unknown) (no (unknown) (unknown) Alkaline (units (unkno wn) date) Phosphatase 47 unknown) (unknown) (no (unknown) (unknown) Alkaline (units (unkno wn) date) Phosphatase 74 unknown) (unknown) (no (unknown) (unknown) Alkaline (units (unkno wn) date) Phosphatase unknown) (unknown) (no (unknown) (unknown) Angioedema with (units (unknown) date) acute hypoxic unknown) respiratory failure (unknown) (no (unknown) (unknown) Anxiety (units (unkno wn) date) unknown) (unknown) (no (unknown) (unknown) Assessment + Plan (units (unknown) date) narrative: unknown) (unknown) (no (unknown) (unknown) Assessment + Plan (units (unknown) date) unknown) (unknown) (no (unknown) (unknown) BUN 11 (units (unkno wn) date) unknown) (unknown) (no (unknown) (unknown) BUN 16 (units (unkno wn) date) unknown) (unknown) (no (unknown) (unknown) BUN (units (unkno wn) date) unknown) (unknown) (no (unknown) (unknown) BUN/Creatinine (units (unknown) date) Ratio 12.6 unknown) (unknown) (no (unknown) (unknown) BUN/Creatinine (units (unknown) date) Ratio 20.3 unknown) (unknown) (no (unknown) (unknown) BUN/Creatinine (units [...] (unknown) (unknown) Blood Pressure (units (unknown) date) 101/77 105/70 unknown) (unknown) (no (unknown) (unknown) Blood Pressure (units (unknown) date) 114/79 111/79 unknown) 111/82 (unknown) (no (unknown) (unknown) Blood Pressure (units (unknown) date) 124/89 unknown) (unknown) (no (unknown) (unknown) CHEST: Respiratory (units (unknown) date) excursions unknown) symmetric, CTAB (unknown) (no (unknown) (unknown) CK-MB (CK-2) 11.30 (units (unknown) date) H unknown) (unknown) (no (unknown) (unknown) CK-MB (CK-2) 14.60 (units (unknown) date) H unknown) (unknown) (no (unknown) (unknown) CK-MB (CK-2) Rel (units (unknown) date) Index 4.6 unknown) (unknown) (no (unknown) (unknown) CK-MB (CK-2) Rel (units (unknown) date) Index 5.7 H unknown) (unknown) (no (unknown) (unknown) CK-MB (CK-2) Rel (units (unknown) date) Index unknown) (unknown) (no (unknown) (unknown) CK-MB (CK-2) (units (u nknown) date) unknown) (unknown) (no (unknown) (unknown) CV: RRR, no M/R/G (units (unknown) date) unknown) (unknown) (no (unknown) (unknown) Calcium 8.5 (units (un known) date) unknown) (unknown) (no (unknown) (unknown) Calcium (units (unkno wn) date) unknown) (unknown) (no (unknown) (unknown) Carbon Dioxide 25 (units (unknown) date) unknown) (unknown) (no (unknown) (unknown) Carbon Dioxide 27 (units (unknown) date) unknown) (unknown) (no (unknown) (unknown) Carbon Dioxide (units (unknown) date) unknown) (unknown) (no (unknown) (unknown) Chloride 103 (units (u nknown) date) unknown) (unknown) (no (unknown) (unknown) Chloride 104 (units (u nknown) date) unknown) (unknown) (no (unknown) (unknown) Chloride (units (unkno wn) date) unknown) (unknown) (no (unknown) (unknown) Chronic abdominal (units (unknown) date) pain unknown) (unknown) (no (unknown) (unknown) Code status (units (un known) date) unknown) (unknown) (no (unknown) (unknown) Creatinine 0.79 (units (unknown) date) unknown) (unknown) (no (unknown) (unknown) Creatinine 0.87 (units (unknown) date) unknown) (unknown) (no (unknown) (unknown) Creatinine (units (unk nown) date) unknown) (unknown) (no (unknown) (unknown) Critical Care (units ( unknown) date) time: unknown) (unknown) (no (unknown) (unknown) Cyclic vomiting (units (unknown) date) syndrome unknown) (unknown) (no (unknown) (unknown) : 1975 (units (unknown) date) Acct:[id number] unknown) (unknown) (no (unknown) (unknown) Date of Service: (units (unknown) date) 07/05/22 unknown) (unknown) (no (unknown) (unknown) Daughter (units (unkno wn) date) Angio-edema unknown) (unknown) (no (unknown) (unknown) Deep Vein (units (unkn own) date) Thrombosis/Pulmonar unknown) y Embolism Present on Admission: No (unknown) (no (unknown) (unknown) Disposition (units (un known) date) unknown) (unknown) (no (unknown) (unknown) EXTR: warm, well (units (unknown) date) perfused, no C/C/E unknown) (unknown) (no (unknown) (unknown) Echocardiogram (units (unknown) date) performed yesterday unknown) showed new reduced EF, per on-call (unknown) (no (unknown) (unknown) Eos # (Auto) 0 (units (unknown) date) unknown) (unknown) (no (unknown) (unknown) Eos # (Auto) (units (u nknown) date) unknown) (unknown) (no (unknown) (unknown) Eos % (Auto) 0.0 L (units (unknown) date) unknown) (unknown) (no (unknown) (unknown) Eos % (Auto) 0.3 L (units (unknown) date) unknown) (unknown) (no [...] (unknown) Family History (units (unknown) date) (Reviewed 07/06/22 unknown) @ 06:11 by Leslie Torres MD) (unknown) (no (unknown) (unknown) Family history of (units (unknown) date) angioedema unknown) (unknown) (no (unknown) (unknown) Father (units (unkno wn) date) Hypertension unknown) (unknown) (no (unknown) (unknown) FiO2 30 (units (unkno wn) date) unknown) (unknown) (no (unknown) (unknown) FiO2 (units (unkno wn) date) unknown) (unknown) (no (unknown) (unknown) Fraction of (units (un known) date) Inspired Oxygen unknown) 0.30 30 0.30 (unknown) (no (unknown) (unknown) Fraction of (units (un known) date) Inspired Oxygen unknown) 0.30 (unknown) (no (unknown) (unknown) Fraction of (units (un known) date) Inspired Oxygen unknown) (unknown) (no (unknown) (unknown) Full (units (unkno wn) date) unknown) (unknown) (no (unknown) (unknown) GEN:? Sedated but (units (unknown) date) does open her eyes, unknown) no acute distress (unknown) (no (unknown) (unknown) Globulin 3.1 (units (u nknown) date) unknown) (unknown) (no (unknown) (unknown) Globulin 3.5 (units (u nknown) date) unknown) (unknown) (no (unknown) (unknown) Globulin (units (unkno wn) date) unknown) (unknown) (no (unknown) (unknown) Glucose 155 H (units ( unknown) date) unknown) (unknown) (no (unknown) (unknown) Glucose 194 H D (units (unknown) date) unknown) (unknown) (no (unknown) (unknown) Glucose (units (unkno wn) date) unknown) (unknown) (no (unknown) (unknown) HEENT:NC, left (units ( unknown) date) cheek and face unknown) reveal moderate swelling, tongue is protruding and (unknown) (no (unknown) (unknown) Hct 35.1 L (units (unk nown) date) unknown) (unknown) (no (unknown) (unknown) Hct 37.7 (units (unkno wn) date) unknown) (unknown) (no (unknown) (unknown) Hct (units (unkno wn) date) unknown) (unknown) (no (unknown) (unknown) Hemoglobin A1c 5.4 (units (unknown) date) unknown) (unknown) (no (unknown) (unknown) Hemoglobin A1c (units (unknown) date) unknown) (unknown) (no (unknown) (unknown) Hgb 11.7 L (units (unk nown) date) unknown) (unknown) (no (unknown) (unknown) Hgb 12.5 (units (unkno wn) date) unknown) (unknown) (no (unknown) (unknown) Hgb (units (unkno wn) date) unknown) (unknown) (no (unknown) (unknown) Holding her (units (unk nown) date) outpatient unknown) antihypertensive therapy.? Blood pressure is normotensive (unknown) (no (unknown) (unknown) However, (units (un known) date) Masoud who read unknown) the patient's echocardiogram yesterday felt very (unknown) (no (unknown) (unknown) Hx of appendectomy (units (unknown) date) unknown) (unknown) (no (unknown) (unknown) Hx of (units (unkno wn) date) cholecystectomy unknown) (unknown) (no (unknown) (unknown) Hyperglycemia (units ( unknown) date) unknown) (unknown) (no (unknown) (unknown) Hypertension (units (u nknown) date) unknown) (unknown) (no (unknown) (unknown) Hypotension (units (un known) date) unknown) (unknown) (no (unknown) (unknown) I spent a total of (units (unknown) date) [] minutes of unknown) critical care time on this patient's care (unknown) (no (unknown) (unknown) Intensive care (units (unknown) date) unit unknown) (unknown) (no (unknown) (unknown) Interval history: (units (unknown) date) unknown) (unknown) (no (unknown) (unknown) [facility] (units (unknown) date) [address] unknown) [place] [address] (unknown) (no (unknown) (unknown) Laboratory Results (units (unknown) date) - last 24 hr unknown) (unknown) (no (unknown) (unknown) Labs (units (unkno wn) date) unknown) (unknown) (no (unknown) (unknown) Labs: (units (unkno wn) date) unknown) (unknown) (no (unknown) (unknown) Lymph # (Auto) (units (unknown) date) 1100 unknown) (unknown) (no (unknown) (unknown) Lymph # (Auto) 400 (units (unknown) date) L unknown) (unknown) (no (unknown) (unknown) Lymph # (Auto) (units (unknown) date) unknown) (unknown) (no (unknown) (unknown) Lymph % (Auto) (units (unknown) date) 11.0 L unknown) (unknown) (no (unknown) (unknown) Lymph % (Auto) 7.5 (units (unknown) date) L unknown) (unknown) (no (unknown) (unknown) Lymph % (Auto) (units (unknown) date) unknown) (unknown) (no (unknown) (unknown) MCH 31.2 (units (unkno wn) date) unknown) (unknown) (no (unknown) (unknown) MCH 31.5 (units (unkno wn) date) unknown) (unknown) (no (unknown) (unknown) MCH (units (unkno wn) date) unknown) (unknown) (no (unknown) (unknown) MCHC 33.1 (units (unkn own) date) unknown) (unknown) (no (unknown) (unknown) MCHC 33.3 (units (unkn own) date) unknown) (unknown) (no (unknown) (unknown) MCHC (units (unkno wn) date) unknown) (unknown) (no (unknown) (unknown) MCV 94.4 (units (unkno wn) date) unknown) (unknown) (no (unknown) (unknown) MCV (units (unkno wn) date) unknown) (unknown) (no (unknown) (unknown) 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 (unknown) (no (unknown) (unknown) Marijuana use, (units (unknown) date) continuous unknown) (unknown) (no (unknown) (unknown) Medical History (units (unknown) date) (Reviewed 07/06/22 unknown) @ 06:11 by Leslie Torres MD) (unknown) (no (unknown) (unknown) [place] # (Auto) 200 (units (unknown) date) unknown) (unknown) (no (unknown) (unknown) [place] # (Auto) 700 (units (unknown) date) unknown) (unknown) (no (unknown) (unknown) [place] # (Auto) (units ( unknown) date) unknown) (unknown) (no (unknown) (unknown) [place] % (Auto) 2.7 (units (unknown) date) L unknown) (unknown) (no (unknown) (unknown) [place] % (Auto) 6.5 (units (unknown) date) unknown) (unknown) (no (unknown) (unknown) [place] % (Auto) (units ( unknown) date) unknown) (unknown) (no (unknown) (unknown) Mother Diabetes (units (unknown) date) mellitus unknown) (unknown) (no (unknown) (unknown) NEURO:? Intubated, (units (unknown) date) sedated unknown) (unknown) (no (unknown) (unknown) Narrative (units (unkn own) date) unknown) (unknown) (no (unknown) (unknown) Neut # (Auto) 5300 (units (unknown) date) unknown) (unknown) (no (unknown) (unknown) Neut # (Auto) 8500 (units (unknown) date) H unknown) (unknown) (no (unknown) (unknown) Neut # (Auto) (units ( unknown) date) unknown) (unknown) (no (unknown) (unknown) Neut % (Auto) 81.9 (units (unknown) date) H unknown) (unknown) (no (unknown) (unknown) Neut % (Auto) 89.4 (units (unknown) date) H unknown) (unknown) (no (unknown) (unknown) Neut % (Auto) (units ( unknown) date) unknown) (unknown) (no (unknown) (unknown) Objective (units (unkn own) date) unknown) (unknown) (no (unknown) (unknown) On Lovenox (units (unk nown) date) unknown) (unknown) (no (unknown) (unknown) On Wellbutrin on (units (unknown) date) an outpatient unknown) basis.? This has been held (unknown) (no (unknown) (unknown) Other Colon cancer (units (unknown) date) unknown) (unknown) (no (unknown) (unknown) Oxygen Delivery (units (unknown) date) Method Mechanical unknown) (unknown) (no (unknown) (unknown) Oxygen Delivery (units (unknown) date) Method Room Air unknown) (unknown) (no (unknown) (unknown) Oxygen Delivery (units (unknown) date) Method unknown) (unknown) (no (unknown) (unknown) PFSH (units (unkno wn) date) unknown) (unknown) (no (unknown) (unknown) Pancreatitis (units (u nknown) date) unknown) (unknown) (no (unknown) (unknown) Patient evidently (units (unknown) date) has had previous unknown) presentations.? Appreciate management per (unknown) (no (unknown) (unknown) Patient has had (units (unknown) date) labile emotions unknown) overnight. She is been complaining of pain this (unknown) (no (unknown) (unknown) Patient: (units (unkno wn) date) Dameon Caputo MR#: unknown) [id number] (unknown) (no (unknown) (unknown) Plt Count 227 (units ( unknown) date) unknown) (unknown) (no (unknown) (unknown) Plt Count 229 (units ( unknown) date) unknown) (unknown) (no (unknown) (unknown) Plt Count (units (unkn own) date) unknown) (unknown) (no (unknown) (unknown) Potassium 3.9 (units ( unknown) date) unknown) (unknown) (no (unknown) (unknown) Potassium 4.8 (units ( unknown) date) unknown) (unknown) (no (unknown) (unknown) Potassium (units (unkn own) date) unknown) (unknown) (no (unknown) (unknown) Progress Note (units ( unknown) date) unknown) (unknown) (no (unknown) (unknown) Prophylaxis (units (un known) date) unknown) (unknown) (no (unknown) (unknown) Provider: (units (unkn own) date) Charissa Cordova MD unknown) (unknown) (no (unknown) (unknown) Pulse Oximetry 100 (units (unknown) date) 100 100 unknown) (unknown) (no (unknown) (unknown) Pulse Oximetry 100 (units (unknown) date) 95 100 unknown) (unknown) (no (unknown) (unknown) Pulse Oximetry 98 (units (unknown) date) unknown) (unknown) (no (unknown) (unknown) Pulse Rate 50 L 54 (units (unknown) date) L unknown) (unknown) (no (unknown) (unknown) Pulse Rate 54 L (units (unknown) date) unknown) (unknown) (no (unknown) (unknown) Pulse Rate 61 58 L (units (unknown) date) 55 L unknown) (unknown) (no (unknown) (unknown) Quality (units (unkno wn) date) unknown) (unknown) (no (unknown) (unknown) RBC 3.71 L (units (unk nown) date) unknown) (unknown) (no (unknown) (unknown) RBC 4.00 (units (unkno wn) date) unknown) (unknown) (no (unknown) (unknown) RBC (units (unkno wn) date) unknown) (unknown) (no (unknown) (unknown) RDW 13.2 (units (unkno wn) date) unknown) (unknown) (no (unknown) (unknown) RDW (units (unkno wn) date) unknown) (unknown) (no (unknown) (unknown) Resolved (units (unkno wn) date) unknown) (unknown) (no (unknown) (unknown) Respiratory Rate (units (unknown) date) 16 16 16 unknown) (unknown) (no (unknown) (unknown) Respiratory Rate (units (unknown) date) 16 17 unknown) (unknown) (no (unknown) (unknown) Respiratory Rate (units (unknown) date) 16 unknown) (unknown) (no (unknown) (unknown) Result Diagrams: (units (unknown) date) unknown) (unknown) (no (unknown) (unknown) SKIN: warm and (units (unknown) date) dry, no rash unknown) (unknown) (no (unknown) (unknown) Signed By: (units (unk nown) date) unknown) (unknown) (no (unknown) (unknown) Smoking Status: (units (unknown) date) Current every day unknown) smoker (unknown) (no (unknown) (unknown) Social History (units (unknown) date) (Reviewed 07/06/22 unknown) @ 06:11 by Leslie Torres MD) (unknown) (no (unknown) (unknown) Sodium 137 (units (unk nown) date) unknown) (unknown) (no (unknown) (unknown) Sodium 142 (units (unk nown) date) unknown) (unknown) (no (unknown) (unknown) Sodium (units (unkno wn) date) unknown) (unknown) (no (unknown) (unknown) Still A1c is 5.4%, (units (unknown) date) hyperglycemia is unknown) likely stress induced. (unknown) (no (unknown) (unknown) Subjective (units (unk nown) date) unknown) (unknown) (no (unknown) (unknown) Surgical History (units (unknown) date) (Reviewed 07/06/22 unknown) @ 06:11 by Leslie Torres MD) (unknown) (no (unknown) (unknown) Temperature 97.2 F (units (unknown) date) L unknown) (unknown) (no (unknown) (unknown) Temperature (units (un known) date) unknown) (unknown) (no (unknown) (unknown) Time Spent With (units (unknown) date) Patient unknown) (unknown) (no (unknown) (unknown) Total Bilirubin (units (unknown) date) 0.5 unknown) (unknown) (no (unknown) (unknown) Total Bilirubin (units (unknown) date) 0.6 unknown) (unknown) (no (unknown) (unknown) Total Bilirubin (units (unknown) date) unknown) (unknown) (no (unknown) (unknown) Total Creatine (units (unknown) date) Kinase 244 H unknown) (unknown) (no (unknown) (unknown) Total Creatine (units (unknown) date) Kinase 258 H unknown) (unknown) (no (unknown) (unknown) Total Creatine (units (unknown) date) Kinase unknown) (unknown) (no (unknown) (unknown) Total Protein 6.6 (units (unknown) date) unknown) (unknown) (no (unknown) (unknown) Total Protein 7.7 (units (unknown) date) unknown) (unknown) (no (unknown) (unknown) Total Protein (units ( unknown) date) unknown) (unknown) (no (unknown) (unknown) Troponin I 5.560 (units (unknown) date) H* unknown) (unknown) (no (unknown) (unknown) Troponin I 6.810 (units (unknown) date) H* unknown) (unknown) (no (unknown) (unknown) Troponin I (units (unk nown) date) unknown) (unknown) (no (unknown) (unknown) VTE (units (unkno wn) date) unknown) (unknown) (no (unknown) (unknown) Ventilation Room (units (unknown) date) Air unknown) (unknown) (no (unknown) (unknown) Vital Signs (units (un known) date) unknown) (unknown) (no (unknown) (unknown) WBC 10.3 D (units (unk nown) date) unknown) (unknown) (no (unknown) (unknown) WBC 5.9 (units (unkno wn) date) unknown) (unknown) (no (unknown) (unknown) WBC (units (unkno wn) date) unknown) (unknown) (no (unknown) (unknown) [Embedded Image (units (unknown) date) Not Available] unknown) (unknown) (no (unknown) (unknown) addition of a (units ( unknown) date) heparin infusion, unknown) aspirin, statin therapy, and a nuclear stress (unknown) (no (unknown) (unknown) alcohol intake: (units (unknown) date) current unknown) (unknown) (no (unknown) (unknown) also significantly (units (unknown) date) swollen there is an unknown) abrasion noted to the tip of the tongue (unknown) (no (unknown) (unknown) 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 Troponin 6.8 (unknown) (no (unknown) (unknown) dexamethasone, (units (unknown) date) famotidine. unknown) (unknown) (no (unknown) (unknown) have a couple of (units (unknown) date) episodes of unknown) hypotension yesterday am requiring IVF boluses. (unknown) (no (unknown) (unknown) household members: (units (unknown) date) spouse unknown) (unknown) (no (unknown) (unknown) therapy assistant (units (un known) date) recommended unknown) transfer to tertiary care facility for angiogram. (unknown) (no (unknown) (unknown) intubation/mechani (units (unknown) date) abbie ventilation for unknown) airway protection.? She has been treated (unknown) (no (unknown) (unknown) last night. (units (un known) date) Patient aroused unknown) earlier this morning and wanted the ET tube (unknown) (no (unknown) (unknown) marijuana who was (units (unknown) date) [id number] with unknown) recurrent angioedema requiring (unknown) (no (unknown) (unknown) morning. (units (unkno wn) date) unknown) (unknown) (no (unknown) (unknown) removed. Tele (units ( unknown) date) therapy assistant unknown) approved and she was subsequently extubated. Tele (unknown) (no (unknown) (unknown) strongly that the (units (unknown) date) patient had stress unknown) cardiomyopathy. She recommended the (unknown) (no (unknown) (unknown) tele therapy assistant.? (units (unknown) date) She remains unknown) intubated and sedated.? She continues to have (unknown) (no (unknown) (unknown) test to be (units (unk nown) date) performed for for unknown) discharge. (unknown) (no (unknown) (unknown) today; this time (units (unknown) date) is exclusive of unknown) procedural time. (unknown) (no (unknown) (unknown) very significant (units (unknown) date) lip tongue and unknown) cheek swelling.? Continues diphenhydramine, (unknown) (no (unknown) (unknown) w/epinephrine, (units (unknown) date) dexamethasone, unknown) benadryl and pepcid IV for angioedema. She did Result panel 702 (unknown) (no (unknown) (unknown) (no value) (units (unk nown) date) unknown) (unknown) (no (unknown) (unknown) (past 8 hours): (units (unknown) date) unknown) (unknown) (no (unknown) (unknown) 00:00 07/07/22 (units (unknown) date) unknown) (unknown) (no (unknown) (unknown) 00:00 (units (unkno wn) date) unknown) (unknown) (no (unknown) (unknown) 01:00 07/07/22 (units (unknown) date) unknown) (unknown) (no (unknown) (unknown) 01:20 01:20 01:20 (units (unknown) date) unknown) (unknown) (no (unknown) (unknown) 02:00 07/07/22 (units (unknown) date) unknown) (unknown) (no (unknown) (unknown) 02:00 (units (unkno wn) date) unknown) (unknown) (no (unknown) (unknown) 03:30 07/07/22 (units (unknown) date) unknown) (unknown) (no (unknown) (unknown) 04:00 (units (unkno wn) date) unknown) (unknown) (no (unknown) (unknown) 07/05/22 07/06/22 (units (unknown) date) 07/06/22 unknown) (unknown) (no (unknown) (unknown) 07/06/22 07/06/22 (units (unknown) date) 07/06/22 unknown) (unknown) (no (unknown) (unknown) 07/06/22 (units (unkno wn) date) unknown) (unknown) (no (unknown) (unknown) 07/07/22 01:20 (units (unknown) date) unknown) (unknown) (no (unknown) (unknown) 07/07/22 07/07/22 (units (unknown) date) 07/07/22 unknown) (unknown) (no (unknown) (unknown) 07/07/22 (units (unkno wn) date) unknown) (unknown) (no (unknown) (unknown) 15:19 21:30 23:10 (units (unknown) date) unknown) (unknown) (no (unknown) (unknown) 22:00 07/06/22 (units (unknown) date) unknown) (unknown) (no (unknown) (unknown) 22:56 04:45 04:45 (units (unknown) date) unknown) (unknown) (no (unknown) (unknown) 23:00 07/07/22 (units (unknown) date) unknown) (unknown) (no (unknown) (unknown) [id number] (units (unkno wn) date) unknown) (unknown) (no (unknown) (unknown) 46-year-old female (units (unknown) date) with polysubstance unknown) dependence specifically cocaine and (unknown) (no (unknown) (unknown) ABD: Soft, NT/ND, (units (unknown) date) BT present in all 4 unknown) quadrants, no organomegaly or masses (unknown) (no (unknown) (unknown) ABG Base Excess (units (unknown) date) -3.0 L unknown) (unknown) (no (unknown) (unknown) ABG Base Excess (units (unknown) date) unknown) (unknown) (no (unknown) (unknown) ABG HCO3 23 (units (un known) date) unknown) (unknown) (no (unknown) (unknown) ABG HCO3 (units (unkno wn) date) unknown) (unknown) (no (unknown) (unknown) ABG O2 Saturation (units (unknown) date) 98 unknown) (unknown) (no (unknown) (unknown) ABG O2 Saturation (units (unknown) date) unknown) (unknown) (no (unknown) (unknown) ABG Total CO2 24 (units (unknown) date) unknown) (unknown) (no (unknown) (unknown) ABG Total CO2 (units ( unknown) date) unknown) (unknown) (no (unknown) (unknown) ABG pCO2 40.7 (units ( unknown) date) unknown) (unknown) (no (unknown) (unknown) ABG pCO2 (units (unkno wn) date) unknown) (unknown) (no (unknown) (unknown) ABG pH 7.36 (units (un known) date) unknown) (unknown) (no (unknown) (unknown) ABG pH (units (unkno wn) date) unknown) (unknown) (no (unknown) (unknown) ABG pO2 105 H (units ( unknown) date) unknown) (unknown) (no (unknown) (unknown) ABG pO2 (units (unkno wn) date) unknown) (unknown) (no (unknown) (unknown) ALT 32 (units (unkno wn) date) unknown) (unknown) (no (unknown) (unknown) ALT 35 H (units (unkno wn) date) unknown) (unknown) (no (unknown) (unknown) ALT (units (unkno wn) date) unknown) (unknown) (no (unknown) (unknown) APTT 26 (units (unkno wn) date) unknown) (unknown) (no (unknown) (unknown) APTT (units (unkno wn) date) unknown) (unknown) (no (unknown) (unknown) AST 62 H (units (unkno wn) date) unknown) (unknown) (no (unknown) (unknown) AST 70 H (units (unkno wn) date) unknown) (unknown) (no (unknown) (unknown) AST (units (unkno wn) date) unknown) (unknown) (no (unknown) (unknown) Abscess (units (unkno wn) date) unknown) (unknown) (no (unknown) (unknown) Age/Sex: 46 / F (units (unknown) date) unknown) (unknown) (no (unknown) (unknown) Albumin 3.5 (units (un known) date) unknown) (unknown) (no (unknown) (unknown) Albumin 4.2 (units (un known) date) unknown) (unknown) (no (unknown) (unknown) Albumin (units (unkno wn) date) unknown) (unknown) (no (unknown) (unknown) Albumin/Globulin (units (unknown) date) Ratio 1.1 unknown) (unknown) (no (unknown) (unknown) Albumin/Globulin (units (unknown) date) Ratio 1.2 unknown) (unknown) (no (unknown) (unknown) Albumin/Globulin (units (unknown) date) Ratio unknown) (unknown) (no (unknown) (unknown) Alkaline (units (unkno wn) date) Phosphatase 47 unknown) (unknown) (no (unknown) (unknown) Alkaline (units (unkno wn) date) Phosphatase 74 unknown) (unknown) (no (unknown) (unknown) Alkaline (units (unkno wn) date) Phosphatase unknown) (unknown) (no (unknown) (unknown) Angioedema with (units (unknown) date) acute hypoxic unknown) respiratory failure (unknown) (no (unknown) (unknown) Anxiety (units (unkno wn) date) unknown) (unknown) (no (unknown) (unknown) Assessment + Plan (units (unknown) date) narrative: unknown) (unknown) (no (unknown) (unknown) Assessment + Plan (units (unknown) date) unknown) (unknown) (no (unknown) (unknown) BUN 11 (units (unkno wn) date) unknown) (unknown) (no (unknown) (unknown) BUN 16 (units (unkno wn) date) unknown) (unknown) (no (unknown) (unknown) BUN (units (unkno wn) date) unknown) (unknown) (no (unknown) (unknown) BUN/Creatinine (units (unknown) date) Ratio 12.6 unknown) (unknown) (no (unknown) (unknown) BUN/Creatinine (units (unknown) date) Ratio 20.3 unknown) (unknown) (no (unknown) (unknown) BUN/Creatinine (units [...] (unknown) (unknown) Blood Pressure (units (unknown) date) 101/77 105/70 unknown) (unknown) (no (unknown) (unknown) Blood Pressure (units (unknown) date) 114/79 111/79 unknown) 111/82 (unknown) (no (unknown) (unknown) Blood Pressure (units (unknown) date) 124/89 unknown) (unknown) (no (unknown) (unknown) CHEST: Respiratory (units (unknown) date) excursions unknown) symmetric, CTAB (unknown) (no (unknown) (unknown) CK-MB (CK-2) 11.30 (units (unknown) date) H unknown) (unknown) (no (unknown) (unknown) CK-MB (CK-2) 14.60 (units (unknown) date) H unknown) (unknown) (no (unknown) (unknown) CK-MB (CK-2) Rel (units (unknown) date) Index 4.6 unknown) (unknown) (no (unknown) (unknown) CK-MB (CK-2) Rel (units (unknown) date) Index 5.7 H unknown) (unknown) (no (unknown) (unknown) CK-MB (CK-2) Rel (units (unknown) date) Index unknown) (unknown) (no (unknown) (unknown) CK-MB (CK-2) (units (u nknown) date) unknown) (unknown) (no (unknown) (unknown) CV: Tachycardic (units (unknown) date) with regular unknown) rhythm, no M/R/G (unknown) (no (unknown) (unknown) Calcium 8.5 (units (un known) date) unknown) (unknown) (no (unknown) (unknown) Calcium (units (unkno wn) date) unknown) (unknown) (no (unknown) (unknown) Carbon Dioxide 25 (units (unknown) date) unknown) (unknown) (no (unknown) (unknown) Carbon Dioxide 27 (units (unknown) date) unknown) (unknown) (no (unknown) (unknown) Carbon Dioxide (units (unknown) date) unknown) (unknown) (no (unknown) (unknown) Chloride 103 (units (u nknown) date) unknown) (unknown) (no (unknown) (unknown) Chloride 104 (units (u nknown) date) unknown) (unknown) (no (unknown) (unknown) Chloride (units (unkno wn) date) unknown) (unknown) (no (unknown) (unknown) Chronic abdominal (units (unknown) date) pain unknown) (unknown) (no (unknown) (unknown) Code status (units (un known) date) unknown) (unknown) (no (unknown) (unknown) Creatinine 0.79 (units (unknown) date) unknown) (unknown) (no (unknown) (unknown) Creatinine 0.87 (units (unknown) date) unknown) (unknown) (no (unknown) (unknown) Creatinine (units (unk nown) date) unknown) (unknown) (no (unknown) (unknown) Critical Care (units ( unknown) date) time: unknown) (unknown) (no (unknown) (unknown) Cyclic vomiting (units (unknown) date) syndrome unknown) (unknown) (no (unknown) (unknown) : 1975 (units (unknown) date) Acct:[id number] unknown) (unknown) (no (unknown) (unknown) Date of Service: (units (unknown) date) 07/05/22 unknown) (unknown) (no (unknown) (unknown) Daughter (units (unkno wn) date) Angio-edema unknown) (unknown) (no (unknown) (unknown) Deep Vein (units (unkn own) date) Thrombosis/Pulmonar unknown) y Embolism Present on Admission: No (unknown) (no (unknown) (unknown) Disposition (units (un known) date) unknown) (unknown) (no (unknown) (unknown) EXTR: warm, well (units (unknown) date) perfused, no C/C/E unknown) (unknown) (no (unknown) (unknown) Echocardiogram (units (unknown) date) performed yesterday unknown) showed new reduced EF, per on-call (unknown) (no (unknown) (unknown) Eos # (Auto) 0 (units (unknown) date) unknown) (unknown) (no (unknown) (unknown) Eos # (Auto) (units (u nknown) date) unknown) (unknown) (no (unknown) (unknown) Eos % (Auto) 0.0 L (units (unknown) date) unknown) (unknown) (no (unknown) (unknown) Eos % (Auto) 0.3 L (units (unknown) date) unknown) (unknown) (no (unknown) (unknown) Eos % (Auto) (units (u nknown) date) unknown) (unknown) (no (unknown) (unknown) Epinephrine was (units (unknown) date) discontinued unknown) secondary to elevated troponin. Unclear etiology (unknown) (no (unknown) (unknown) Estimated GFR > 60 (units (unknown) date) unknown) (unknown) (no (unknown) (unknown) Estimated GFR (units ( unknown) date) unknown) (unknown) (no (unknown) (unknown) Exam Narrative: (units (unknown) date) unknown) (unknown) (no (unknown) (unknown) Exam (units (unkno wn) date) unknown) (unknown) (no (unknown) (unknown) Family History (units (unknown) date) (Reviewed 07/06/22 unknown) @ 06:11 by Leslie Torres MD) (unknown) (no (unknown) (unknown) Family history of (units (unknown) date) angioedema unknown) (unknown) (no (unknown) (unknown) Father (units (unkno wn) date) Hypertension unknown) (unknown) (no (unknown) (unknown) FiO2 30 (units (unkno wn) date) unknown) (unknown) (no (unknown) (unknown) FiO2 (units (unkno wn) date) unknown) (unknown) (no (unknown) (unknown) Fraction of (units (un known) date) Inspired Oxygen unknown) 0.30 30 0.30 (unknown) (no (unknown) (unknown) Fraction of (units (un known) date) Inspired Oxygen unknown) 0.30 (unknown) (no (unknown) (unknown) Fraction of (units (un known) date) Inspired Oxygen unknown) (unknown) (no (unknown) (unknown) Full (units (unkno wn) date) unknown) (unknown) (no (unknown) (unknown) GEN:? Alert, (units (u nknown) date) tearful, very unknown) anxious and confrontational (unknown) (no (unknown) (unknown) Globulin 3.1 (units (u nknown) date) unknown) (unknown) (no (unknown) (unknown) Globulin 3.5 (units (u nknown) date) unknown) (unknown) (no (unknown) (unknown) Globulin (units (unkno wn) date) unknown) (unknown) (no (unknown) (unknown) Glucose 155 H (units ( unknown) date) unknown) (unknown) (no (unknown) (unknown) Glucose 194 H D (units (unknown) date) unknown) (unknown) (no (unknown) (unknown) Glucose (units (unkno wn) date) unknown) (unknown) (no (unknown) (unknown) HEENT:NC, face (units (unknown) date) symmetric, unknown) abrasions noted sublingually, there is also abrasion (unknown) (no (unknown) (unknown) Hct 35.1 L (units (unk nown) date) unknown) (unknown) (no (unknown) (unknown) Hct 37.7 (units (unkno wn) date) unknown) (unknown) (no (unknown) (unknown) Hct (units (unkno wn) date) unknown) (unknown) (no (unknown) (unknown) Hemoglobin A1c 5.4 (units (unknown) date) unknown) (unknown) (no (unknown) (unknown) Hemoglobin A1c (units (unknown) date) unknown) (unknown) (no (unknown) (unknown) Hgb 11.7 L (units (unk nown) date) unknown) (unknown) (no (unknown) (unknown) Hgb 12.5 (units (unkno wn) date) unknown) (unknown) (no (unknown) (unknown) Hgb (units (unkno wn) date) unknown) (unknown) (no (unknown) (unknown) Holding her (units (unk nown) date) outpatient unknown) antihypertensive therapy.? Blood pressure is normotensive (unknown) (no (unknown) (unknown) However, (units (un known) date) Masoud who read unknown) the patient's echocardiogram yesterday felt very (unknown) (no (unknown) (unknown) Hx of appendectomy (units (unknown) date) unknown) (unknown) (no (unknown) (unknown) Hx of (units (unkno wn) date) cholecystectomy unknown) (unknown) (no (unknown) (unknown) Hyperglycemia (units ( unknown) date) unknown) (unknown) (no (unknown) (unknown) Hypertension (units (u nknown) date) unknown) (unknown) (no (unknown) (unknown) Hypotension (units (un known) date) unknown) (unknown) (no (unknown) (unknown) I spent a total of (units (unknown) date) [] minutes of unknown) critical care time on this patient's care (unknown) (no (unknown) (unknown) Intensive care (units (unknown) date) unit unknown) (unknown) (no (unknown) (unknown) Interval history: (units (unknown) date) unknown) (unknown) (no (unknown) (unknown) [facility] (units (unknown) date) [address] unknown) [place] [address] (unknown) (no (unknown) (unknown) Laboratory Results (units (unknown) date) - last 24 hr unknown) (unknown) (no (unknown) (unknown) Labs (units (unkno wn) date) unknown) (unknown) (no (unknown) (unknown) Labs: (units (unkno wn) date) unknown) (unknown) (no (unknown) (unknown) Lymph # (Auto) (units (unknown) date) 1100 unknown) (unknown) (no (unknown) (unknown) Lymph # (Auto) 400 (units (unknown) date) L unknown) (unknown) (no (unknown) (unknown) Lymph # (Auto) (units (unknown) date) unknown) (unknown) (no (unknown) (unknown) Lymph % (Auto) (units (unknown) date) 11.0 L unknown) (unknown) (no (unknown) (unknown) Lymph % (Auto) 7.5 (units (unknown) date) L unknown) (unknown) (no (unknown) (unknown) Lymph % (Auto) (units (unknown) date) unknown) (unknown) (no (unknown) (unknown) MCH 31.2 (units (unkno wn) date) unknown) (unknown) (no (unknown) (unknown) MCH 31.5 (units (unkno wn) date) unknown) (unknown) (no (unknown) (unknown) MCH (units (unkno wn) date) unknown) (unknown) (no (unknown) (unknown) MCHC 33.1 (units (unkn own) date) unknown) (unknown) (no (unknown) (unknown) MCHC 33.3 (units (unkn own) date) unknown) (unknown) (no (unknown) (unknown) MCHC (units (unkno wn) date) unknown) (unknown) (no (unknown) (unknown) MCV 94.4 (units (unkno wn) date) unknown) (unknown) (no (unknown) (unknown) MCV (units (unkno wn) date) unknown) (unknown) (no (unknown) (unknown) 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 (unknown) (no (unknown) (unknown) Marijuana use, (units (unknown) date) continuous unknown) (unknown) (no (unknown) (unknown) Medical History (units (unknown) date) (Reviewed 07/06/22 unknown) @ 06:11 by Leslie Torres MD) (unknown) (no (unknown) (unknown) [place] # (Auto) 200 (units (unknown) date) unknown) (unknown) (no (unknown) (unknown) [place] # (Auto) 700 (units (unknown) date) unknown) (unknown) (no (unknown) (unknown) [place] # (Auto) (units ( unknown) date) unknown) (unknown) (no (unknown) (unknown) [place] % (Auto) 2.7 (units (unknown) date) L unknown) (unknown) (no (unknown) (unknown) [place] % (Auto) 6.5 (units (unknown) date) unknown) (unknown) (no (unknown) (unknown) [place] % (Auto) (units ( unknown) date) unknown) (unknown) (no (unknown) (unknown) Mother Diabetes (units (unknown) date) mellitus unknown) (unknown) (no (unknown) (unknown) NEURO:? Anxious, (units (unknown) date) alert and oriented unknown) x3 (unknown) (no (unknown) (unknown) Narrative (units (unkn own) date) unknown) (unknown) (no (unknown) (unknown) Neut # (Auto) 5300 (units (unknown) date) unknown) (unknown) (no (unknown) (unknown) Neut # (Auto) 8500 (units (unknown) date) H unknown) (unknown) (no (unknown) (unknown) Neut # (Auto) (units ( unknown) date) unknown) (unknown) (no (unknown) (unknown) Neut % (Auto) 81.9 (units (unknown) date) H unknown) (unknown) (no (unknown) (unknown) Neut % (Auto) 89.4 (units (unknown) date) H unknown) (unknown) (no (unknown) (unknown) Neut % (Auto) (units ( unknown) date) unknown) (unknown) (no (unknown) (unknown) Objective (units (unkn own) date) unknown) (unknown) (no (unknown) (unknown) On Lovenox (units (unk nown) date) unknown) (unknown) (no (unknown) (unknown) On Wellbutrin on (units (unknown) date) an outpatient unknown) basis.? This has been held (unknown) (no (unknown) (unknown) Other Colon cancer (units (unknown) date) unknown) (unknown) (no (unknown) (unknown) Oxygen Delivery (units (unknown) date) Method Mechanical unknown) (unknown) (no (unknown) (unknown) Oxygen Delivery (units (unknown) date) Method Room Air unknown) (unknown) (no (unknown) (unknown) Oxygen Delivery (units (unknown) date) Method unknown) (unknown) (no (unknown) (unknown) PFSH (units (unkno wn) date) unknown) (unknown) (no (unknown) (unknown) Pancreatitis (units (u nknown) date) unknown) (unknown) (no (unknown) (unknown) Patient has had (units (unknown) date) labile emotions unknown) overnight. She is been complaining of pain this (unknown) (no (unknown) (unknown) Patient reports (units (unknown) date) for previous unknown) presentations, but this was the 1st time she (unknown) (no (unknown) (unknown) Patient: (units (unkno wn) date) Dameon Caputo MR#: unknown) [id number] (unknown) (no (unknown) (unknown) Plt Count 227 (units ( unknown) date) unknown) (unknown) (no (unknown) (unknown) Plt Count 229 (units ( unknown) date) unknown) (unknown) (no (unknown) (unknown) Plt Count (units (unkn own) date) unknown) (unknown) (no (unknown) (unknown) Potassium 3.9 (units ( unknown) date) unknown) (unknown) (no (unknown) (unknown) Potassium 4.8 (units ( unknown) date) unknown) (unknown) (no (unknown) (unknown) Potassium (units (unkn own) date) unknown) (unknown) (no (unknown) (unknown) Progress Note (units ( unknown) date) unknown) (unknown) (no (unknown) (unknown) Prophylaxis (units (un known) date) unknown) (unknown) (no (unknown) (unknown) Provider: (units (unkn own) date) Charissa Cordova MD unknown) (unknown) (no (unknown) (unknown) Pulse Oximetry 100 (units (unknown) date) 100 100 unknown) (unknown) (no (unknown) (unknown) Pulse Oximetry 100 (units (unknown) date) 95 100 unknown) (unknown) (no (unknown) (unknown) Pulse Oximetry 98 (units (unknown) date) unknown) (unknown) (no (unknown) (unknown) Pulse Rate 50 L 54 (units (unknown) date) L unknown) (unknown) (no (unknown) (unknown) Pulse Rate 54 L (units (unknown) date) unknown) (unknown) (no (unknown) (unknown) Pulse Rate 61 58 L (units (unknown) date) 55 L unknown) (unknown) (no (unknown) (unknown) Quality (units (unkno wn) date) unknown) (unknown) (no (unknown) (unknown) RBC 3.71 L (units (unk nown) date) unknown) (unknown) (no (unknown) (unknown) RBC 4.00 (units (unkno wn) date) unknown) (unknown) (no (unknown) (unknown) RBC (units (unkno wn) date) unknown) (unknown) (no (unknown) (unknown) RDW 13.2 (units (unkno wn) date) unknown) (unknown) (no (unknown) (unknown) RDW (units (unkno wn) date) unknown) (unknown) (no (unknown) (unknown) Resolved (units (unkno wn) date) unknown) (unknown) (no (unknown) (unknown) Respiratory Rate (units (unknown) date) 16 16 16 unknown) (unknown) (no (unknown) (unknown) Respiratory Rate (units (unknown) date) 16 17 unknown) (unknown) (no (unknown) (unknown) Respiratory Rate (units (unknown) date) 16 unknown) (unknown) (no (unknown) (unknown) Result Diagrams: (units (unknown) date) unknown) (unknown) (no (unknown) (unknown) SKIN: warm and (units (unknown) date) dry, no rash unknown) (unknown) (no (unknown) (unknown) She is extremely (units (unknown) date) tearful. She unknown) reports that she is angry at 1 of the staff who (unknown) (no (unknown) (unknown) Signed By: (units (unk nown) date) unknown) (unknown) (no (unknown) (unknown) Smoking Status: (units (unknown) date) Current every day unknown) smoker (unknown) (no (unknown) (unknown) Social History (units (unknown) date) (Reviewed 07/06/22 unknown) @ 06:11 by Leslie Torres MD) (unknown) (no (unknown) (unknown) Sodium 137 (units (unk nown) date) unknown) (unknown) (no (unknown) (unknown) Sodium 142 (units (unk nown) date) unknown) (unknown) (no (unknown) (unknown) Sodium (units (unkno wn) date) unknown) (unknown) (no (unknown) (unknown) Still A1c is 5.4%, (units (unknown) date) hyperglycemia is unknown) likely stress induced. (unknown) (no (unknown) (unknown) Subjective (units (unk nown) date) unknown) (unknown) (no (unknown) (unknown) Surgical History (units (unknown) date) (Reviewed 07/06/22 unknown) @ 06:11 by Leslie Torres MD) (unknown) (no (unknown) (unknown) Temperature 97.2 F (units (unknown) date) L unknown) (unknown) (no (unknown) (unknown) Temperature (units (un known) date) unknown) (unknown) (no (unknown) (unknown) Time Spent With (units (unknown) date) Patient unknown) (unknown) (no (unknown) (unknown) Total Bilirubin (units (unknown) date) 0.5 unknown) (unknown) (no (unknown) (unknown) Total Bilirubin (units (unknown) date) 0.6 unknown) (unknown) (no (unknown) (unknown) Total Bilirubin (units (unknown) date) unknown) (unknown) (no (unknown) (unknown) Total Creatine (units (unknown) date) Kinase 244 H unknown) (unknown) (no (unknown) (unknown) Total Creatine (units (unknown) date) Kinase 258 H unknown) (unknown) (no (unknown) (unknown) Total Creatine (units (unknown) date) Kinase unknown) (unknown) (no (unknown) (unknown) Total Protein 6.6 (units (unknown) date) unknown) (unknown) (no (unknown) (unknown) Total Protein 7.7 (units (unknown) date) unknown) (unknown) (no (unknown) (unknown) Total Protein (units ( unknown) date) unknown) (unknown) (no (unknown) (unknown) Troponin I 5.560 (units (unknown) date) H* unknown) (unknown) (no (unknown) (unknown) Troponin I 6.810 (units (unknown) date) H* unknown) (unknown) (no (unknown) (unknown) Troponin I (units (unk nown) date) unknown) (unknown) (no (unknown) (unknown) VTE (units (unkno wn) date) unknown) (unknown) (no (unknown) (unknown) Ventilation Room (units (unknown) date) Air unknown) (unknown) (no (unknown) (unknown) Vital Signs (units (un known) date) unknown) (unknown) (no (unknown) (unknown) WBC 10.3 D (units (unk nown) date) unknown) (unknown) (no (unknown) (unknown) WBC 5.9 (units (unkno wn) date) unknown) (unknown) (no (unknown) (unknown) WBC (units (unkno wn) date) unknown) (unknown) (no (unknown) (unknown) [Embedded Image (units (unknown) date) Not Available] unknown) (unknown) (no (unknown) (unknown) addition of a (units ( unknown) date) heparin infusion, unknown) aspirin, statin therapy, and a nuclear stress (unknown) (no (unknown) (unknown) alcohol intake: (units (unknown) date) current unknown) (unknown) (no (unknown) (unknown) also expresses the (units (unknown) date) desire to unknown) discharge. She states she can not afford her (unknown) (no (unknown) (unknown) began having this (units (unknown) date) problem 2 months unknown) later. 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 Troponin 6.8 (unknown) (no (unknown) (unknown) due to her (units (unk nown) date) emotional lability. unknown) Continues diphenhydramine and famotidine. (unknown) (no (unknown) (unknown) episodes of (units (un known) date) angioedema in the unknown) last 12 months. They have no clear trigger or (unknown) (no (unknown) (unknown) for the (units (unkno wn) date) angioedema. unknown) Complement levels have been checked previously (unknown) (no (unknown) (unknown) have a couple of (units (unknown) date) episodes of unknown) hypotension yesterday am requiring IVF boluses. (unknown) (no (unknown) (unknown) hospitalization (units (unknown) date) and does not unknown) qualify for assistance as she is over income. (unknown) (no (unknown) (unknown) household members: (units (unknown) date) spouse unknown) (unknown) (no (unknown) (unknown) therapy assistant (units (un known) date) recommended unknown) transfer to tertiary care facility for angiogram. (unknown) (no (unknown) (unknown) intubation/mechani (units (unknown) date) abbie ventilation for unknown) airway protection.? She has been treated (unknown) (no (unknown) (unknown) last night. (units (un known) date) Patient aroused unknown) earlier this morning and wanted the ET tube (unknown) (no (unknown) (unknown) marijuana who was (units (unknown) date) [id number] with unknown) recurrent angioedema requiring (unknown) (no (unknown) (unknown) morning. She (units (u nknown) date) states she received unknown) her COVID vaccine approximately 1 year ago and (unknown) (no (unknown) (unknown) morning. (units (unkno wn) date) unknown) (unknown) (no (unknown) (unknown) noted to the (units (u nknown) date) tongue tip, unknown) decreased swelling overall, no cheek or lip swelling (unknown) (no (unknown) (unknown) pain in her throat (units (unknown) date) from the ET tube. unknown) She complains of severe tongue pain. She (unknown) (no (unknown) (unknown) removed. Tele (units ( unknown) date) therapy assistant unknown) approved and she was subsequently extubated. Tele (unknown) (no (unknown) (unknown) required (units (unkno wn) date) intubation for unknown) airway protection. Steroids were discontinued overnight (unknown) (no (unknown) (unknown) she felt did not (units (unknown) date) treat her right unknown) this morning. She states that she has had 4 (unknown) (no (unknown) (unknown) strongly that the (units (unknown) date) patient had stress unknown) cardiomyopathy. She recommended the (unknown) (no (unknown) (unknown) test to be (units (unk nown) date) performed for for unknown) discharge. (unknown) (no (unknown) (unknown) the COVID vaccine. (units (unknown) date) She denies any unknown) shortness of breath today. She reports mild (unknown) (no (unknown) (unknown) today; this time (units (unknown) date) is exclusive of unknown) procedural time. (unknown) (no (unknown) (unknown) w/epinephrine, (units (unknown) date) dexamethasone, unknown) benadryl and pepcid IV for angioedema. She did Result panel 703 (unknown) (no (unknown) (unknown) (no value) (units (unk nown) date) unknown) (unknown) (no (unknown) (unknown) (past 8 hours): (units (unknown) date) unknown) (unknown) (no (unknown) (unknown) 00:00 07/07/22 (units (unknown) date) unknown) (unknown) (no (unknown) (unknown) 00:00 (units (unkno wn) date) unknown) (unknown) (no (unknown) (unknown) 01:00 07/07/22 (units (unknown) date) unknown) (unknown) (no (unknown) (unknown) 01:20 01:20 01:20 (units (unknown) date) unknown) (unknown) (no (unknown) (unknown) 02:00 07/07/22 (units (unknown) date) unknown) (unknown) (no (unknown) (unknown) 02:00 (units (unkno wn) date) unknown) (unknown) (no (unknown) (unknown) 03:30 07/07/22 (units (unknown) date) unknown) (unknown) (no (unknown) (unknown) 04:00 (units (unkno wn) date) unknown) (unknown) (no (unknown) (unknown) 07/05/22 07/06/22 (units (unknown) date) 07/06/22 unknown) (unknown) (no (unknown) (unknown) 07/06/22 07/06/22 (units (unknown) date) 07/06/22 unknown) (unknown) (no (unknown) (unknown) 07/06/22 (units (unkno wn) date) unknown) (unknown) (no (unknown) (unknown) 07/07/22 01:20 (units (unknown) date) unknown) (unknown) (no (unknown) (unknown) 07/07/22 07/07/22 (units (unknown) date) 07/07/22 unknown) (unknown) (no (unknown) (unknown) 07/07/22 (units (unkno wn) date) unknown) (unknown) (no (unknown) (unknown) 15:19 21:30 23:10 (units (unknown) date) unknown) (unknown) (no (unknown) (unknown) 22:00 07/06/22 (units (unknown) date) unknown) (unknown) (no (unknown) (unknown) 22:56 04:45 04:45 (units (unknown) date) unknown) (unknown) (no (unknown) (unknown) 23:00 07/07/22 (units (unknown) date) unknown) (unknown) (no (unknown) (unknown) [id number] (units (unkno wn) date) unknown) (unknown) (no (unknown) (unknown) 46-year-old female (units (unknown) date) with polysubstance unknown) dependence specifically cocaine and (unknown) (no (unknown) (unknown) ABD: Soft, NT/ND, (units (unknown) date) BT present in all 4 unknown) quadrants, no organomegaly or masses (unknown) (no (unknown) (unknown) ABG Base Excess (units (unknown) date) -3.0 L unknown) (unknown) (no (unknown) (unknown) ABG Base Excess (units (unknown) date) unknown) (unknown) (no (unknown) (unknown) ABG HCO3 23 (units (un known) date) unknown) (unknown) (no (unknown) (unknown) ABG HCO3 (units (unkno wn) date) unknown) (unknown) (no (unknown) (unknown) ABG O2 Saturation (units (unknown) date) 98 unknown) (unknown) (no (unknown) (unknown) ABG O2 Saturation (units (unknown) date) unknown) (unknown) (no (unknown) (unknown) ABG Total CO2 24 (units (unknown) date) unknown) (unknown) (no (unknown) (unknown) ABG Total CO2 (units ( unknown) date) unknown) (unknown) (no (unknown) (unknown) ABG pCO2 40.7 (units ( unknown) date) unknown) (unknown) (no (unknown) (unknown) ABG pCO2 (units (unkno wn) date) unknown) (unknown) (no (unknown) (unknown) ABG pH 7.36 (units (un known) date) unknown) (unknown) (no (unknown) (unknown) ABG pH (units (unkno wn) date) unknown) (unknown) (no (unknown) (unknown) ABG pO2 105 H (units ( unknown) date) unknown) (unknown) (no (unknown) (unknown) ABG pO2 (units (unkno wn) date) unknown) (unknown) (no (unknown) (unknown) ALT 32 (units (unkno wn) date) unknown) (unknown) (no (unknown) (unknown) ALT 35 H (units (unkno wn) date) unknown) (unknown) (no (unknown) (unknown) ALT (units (unkno wn) date) unknown) (unknown) (no (unknown) (unknown) APTT 26 (units (unkno wn) date) unknown) (unknown) (no (unknown) (unknown) APTT (units (unkno wn) date) unknown) (unknown) (no (unknown) (unknown) AST 62 H (units (unkno wn) date) unknown) (unknown) (no (unknown) (unknown) AST 70 H (units (unkno wn) date) unknown) (unknown) (no (unknown) (unknown) AST (units (unkno wn) date) unknown) (unknown) (no (unknown) (unknown) Abscess (units (unkno wn) date) unknown) (unknown) (no (unknown) (unknown) Age/Sex: 46 / F (units (unknown) date) unknown) (unknown) (no (unknown) (unknown) Albumin 3.5 (units (un known) date) unknown) (unknown) (no (unknown) (unknown) Albumin 4.2 (units (un known) date) unknown) (unknown) (no (unknown) (unknown) Albumin (units (unkno wn) date) unknown) (unknown) (no (unknown) (unknown) Albumin/Globulin (units (unknown) date) Ratio 1.1 unknown) (unknown) (no (unknown) (unknown) Albumin/Globulin (units (unknown) date) Ratio 1.2 unknown) (unknown) (no (unknown) (unknown) Albumin/Globulin (units (unknown) date) Ratio unknown) (unknown) (no (unknown) (unknown) Alkaline (units (unkno wn) date) Phosphatase 47 unknown) (unknown) (no (unknown) (unknown) Alkaline (units (unkno wn) date) Phosphatase 74 unknown) (unknown) (no (unknown) (unknown) Alkaline (units (unkno wn) date) Phosphatase unknown) (unknown) (no (unknown) (unknown) Angioedema with (units (unknown) date) acute hypoxic unknown) respiratory failure (unknown) (no (unknown) (unknown) Anxiety (units (unkno wn) date) unknown) (unknown) (no (unknown) (unknown) Assessment + Plan (units (unknown) date) narrative: unknown) (unknown) (no (unknown) (unknown) Assessment + Plan (units (unknown) date) unknown) (unknown) (no (unknown) (unknown) BUN 11 (units (unkno wn) date) unknown) (unknown) (no (unknown) (unknown) BUN 16 (units (unkno wn) date) unknown) (unknown) (no (unknown) (unknown) BUN (units (unkno wn) date) unknown) (unknown) (no (unknown) (unknown) BUN/Creatinine (units (unknown) date) Ratio 12.6 unknown) (unknown) (no (unknown) (unknown) BUN/Creatinine (units (unknown) date) Ratio 20.3 unknown) (unknown) (no (unknown) (unknown) BUN/Creatinine (units [...] (unknown) (unknown) Blood Pressure (units (unknown) date) 101/77 105/70 unknown) (unknown) (no (unknown) (unknown) Blood Pressure (units (unknown) date) 114/79 111/79 unknown) 111/82 (unknown) (no (unknown) (unknown) Blood Pressure (units (unknown) date) 124/89 unknown) (unknown) (no (unknown) (unknown) CHEST: Respiratory (units (unknown) date) excursions unknown) symmetric, CTAB (unknown) (no (unknown) (unknown) CK-MB (CK-2) 11.30 (units (unknown) date) H unknown) (unknown) (no (unknown) (unknown) CK-MB (CK-2) 14.60 (units (unknown) date) H unknown) (unknown) (no (unknown) (unknown) CK-MB (CK-2) Rel (units (unknown) date) Index 4.6 unknown) (unknown) (no (unknown) (unknown) CK-MB (CK-2) Rel (units (unknown) date) Index 5.7 H unknown) (unknown) (no (unknown) (unknown) CK-MB (CK-2) Rel (units (unknown) date) Index unknown) (unknown) (no (unknown) (unknown) CK-MB (CK-2) (units (u nknown) date) unknown) (unknown) (no (unknown) (unknown) CV: Tachycardic (units (unknown) date) with regular unknown) rhythm, no M/R/G (unknown) (no (unknown) (unknown) Calcium 8.5 (units (un known) date) unknown) (unknown) (no (unknown) (unknown) Calcium (units (unkno wn) date) unknown) (unknown) (no (unknown) (unknown) Carbon Dioxide 25 (units (unknown) date) unknown) (unknown) (no (unknown) (unknown) Carbon Dioxide 27 (units (unknown) date) unknown) (unknown) (no (unknown) (unknown) Carbon Dioxide (units (unknown) date) unknown) (unknown) (no (unknown) (unknown) Chloride 103 (units (u nknown) date) unknown) (unknown) (no (unknown) (unknown) Chloride 104 (units (u nknown) date) unknown) (unknown) (no (unknown) (unknown) Chloride (units (unkno wn) date) unknown) (unknown) (no (unknown) (unknown) Chronic abdominal (units (unknown) date) pain unknown) (unknown) (no (unknown) (unknown) Code status (units (un known) date) unknown) (unknown) (no (unknown) (unknown) Creatinine 0.79 (units (unknown) date) unknown) (unknown) (no (unknown) (unknown) Creatinine 0.87 (units (unknown) date) unknown) (unknown) (no (unknown) (unknown) Creatinine (units (unk nown) date) unknown) (unknown) (no (unknown) (unknown) Critical Care (units ( unknown) date) time: unknown) (unknown) (no (unknown) (unknown) Cyclic vomiting (units (unknown) date) syndrome unknown) (unknown) (no (unknown) (unknown) : 1975 (units (unknown) date) Acct:[id number] unknown) (unknown) (no (unknown) (unknown) Date of Service: (units (unknown) date) 07/05/22 unknown) (unknown) (no (unknown) (unknown) Daughter (units (unkno wn) date) Angio-edema unknown) (unknown) (no (unknown) (unknown) Deep Vein (units (unkn own) date) Thrombosis/Pulmonar unknown) y Embolism Present on Admission: No (unknown) (no (unknown) (unknown) Disposition (units (un known) date) unknown) (unknown) (no (unknown) (unknown) EXTR: warm, well (units (unknown) date) perfused, no C/C/E unknown) (unknown) (no (unknown) (unknown) Echocardiogram (units (unknown) date) performed yesterday unknown) showed new reduced EF, per on-call (unknown) (no (unknown) (unknown) Eos # (Auto) 0 (units (unknown) date) unknown) (unknown) (no (unknown) (unknown) Eos # (Auto) (units (u nknown) date) unknown) (unknown) (no (unknown) (unknown) Eos % (Auto) 0.0 L (units (unknown) date) unknown) (unknown) (no (unknown) (unknown) Eos % (Auto) 0.3 L (units (unknown) date) unknown) (unknown) (no (unknown) (unknown) Eos % (Auto) (units (u nknown) date) unknown) (unknown) (no (unknown) (unknown) Epinephrine was (units (unknown) date) discontinued unknown) secondary to elevated troponin. Unclear etiology (unknown) (no (unknown) (unknown) Estimated GFR > 60 (units (unknown) date) unknown) (unknown) (no (unknown) (unknown) Estimated GFR (units ( unknown) date) unknown) (unknown) (no (unknown) (unknown) Exam Narrative: (units (unknown) date) unknown) (unknown) (no (unknown) (unknown) Exam (units (unkno wn) date) unknown) (unknown) (no (unknown) (unknown) Family History (units (unknown) date) (Reviewed 07/06/22 unknown) @ 06:11 by Leslie Torres MD) (unknown) (no (unknown) (unknown) Family history of (units (unknown) date) angioedema unknown) (unknown) (no (unknown) (unknown) Father (units (unkno wn) date) Hypertension unknown) (unknown) (no (unknown) (unknown) FiO2 30 (units (unkno wn) date) unknown) (unknown) (no (unknown) (unknown) FiO2 (units (unkno wn) date) unknown) (unknown) (no (unknown) (unknown) Fraction of (units (un known) date) Inspired Oxygen unknown) 0.30 30 0.30 (unknown) (no (unknown) (unknown) Fraction of (units (un known) date) Inspired Oxygen unknown) 0.30 (unknown) (no (unknown) (unknown) Fraction of (units (un known) date) Inspired Oxygen unknown) (unknown) (no (unknown) (unknown) Full (units (unkno wn) date) unknown) (unknown) (no (unknown) (unknown) GEN:? Alert, (units (u nknown) date) tearful, very unknown) anxious and confrontational (unknown) (no (unknown) (unknown) Globulin 3.1 (units (u nknown) date) unknown) (unknown) (no (unknown) (unknown) Globulin 3.5 (units (u nknown) date) unknown) (unknown) (no (unknown) (unknown) Globulin (units (unkno wn) date) unknown) (unknown) (no (unknown) (unknown) Glucose 155 H (units ( unknown) date) unknown) (unknown) (no (unknown) (unknown) Glucose 194 H D (units (unknown) date) unknown) (unknown) (no (unknown) (unknown) Glucose (units (unkno wn) date) unknown) (unknown) (no (unknown) (unknown) HEENT:NC, face (units (unknown) date) symmetric, unknown) abrasions noted sublingually, there is also abrasion (unknown) (no (unknown) (unknown) Hct 35.1 L (units (unk nown) date) unknown) (unknown) (no (unknown) (unknown) Hct 37.7 (units (unkno wn) date) unknown) (unknown) (no (unknown) (unknown) Hct (units (unkno wn) date) unknown) (unknown) (no (unknown) (unknown) Hemoglobin A1c 5.4 (units (unknown) date) unknown) (unknown) (no (unknown) (unknown) Hemoglobin A1c (units (unknown) date) unknown) (unknown) (no (unknown) (unknown) Hgb 11.7 L (units (unk nown) date) unknown) (unknown) (no (unknown) (unknown) Hgb 12.5 (units (unkno wn) date) unknown) (unknown) (no (unknown) (unknown) Hgb (units (unkno wn) date) unknown) (unknown) (no (unknown) (unknown) Holding her (units (unk nown) date) outpatient unknown) antihypertensive therapy.? Blood pressure is normotensive (unknown) (no (unknown) (unknown) However, (units (un known) date) Masoud who read unknown) the patient's echocardiogram yesterday felt very (unknown) (no (unknown) (unknown) Hx of appendectomy (units (unknown) date) unknown) (unknown) (no (unknown) (unknown) Hx of (units (unkno wn) date) cholecystectomy unknown) (unknown) (no (unknown) (unknown) Hyperglycemia (units ( unknown) date) unknown) (unknown) (no (unknown) (unknown) Hypertension (units (u nknown) date) unknown) (unknown) (no (unknown) (unknown) Hypotension (units (un known) date) unknown) (unknown) (no (unknown) (unknown) I spent a total of (units (unknown) date) [] minutes of unknown) critical care time on this patient's care (unknown) (no (unknown) (unknown) Intensive care (units (unknown) date) unit unknown) (unknown) (no (unknown) (unknown) Interval history: (units (unknown) date) unknown) (unknown) (no (unknown) (unknown) [facility] (units (unknown) date) [address] unknown) [place] [address] (unknown) (no (unknown) (unknown) Laboratory Results (units (unknown) date) - last 24 hr unknown) (unknown) (no (unknown) (unknown) Labs (units (unkno wn) date) unknown) (unknown) (no (unknown) (unknown) Labs: (units (unkno wn) date) unknown) (unknown) (no (unknown) (unknown) Lymph # (Auto) (units (unknown) date) 1100 unknown) (unknown) (no (unknown) (unknown) Lymph # (Auto) 400 (units (unknown) date) L unknown) (unknown) (no (unknown) (unknown) Lymph # (Auto) (units (unknown) date) unknown) (unknown) (no (unknown) (unknown) Lymph % (Auto) (units (unknown) date) 11.0 L unknown) (unknown) (no (unknown) (unknown) Lymph % (Auto) 7.5 (units (unknown) date) L unknown) (unknown) (no (unknown) (unknown) Lymph % (Auto) (units (unknown) date) unknown) (unknown) (no (unknown) (unknown) MCH 31.2 (units (unkno wn) date) unknown) (unknown) (no (unknown) (unknown) MCH 31.5 (units (unkno wn) date) unknown) (unknown) (no (unknown) (unknown) MCH (units (unkno wn) date) unknown) (unknown) (no (unknown) (unknown) MCHC 33.1 (units (unkn own) date) unknown) (unknown) (no (unknown) (unknown) MCHC 33.3 (units (unkn own) date) unknown) (unknown) (no (unknown) (unknown) MCHC (units (unkno wn) date) unknown) (unknown) (no (unknown) (unknown) MCV 94.4 (units (unkno wn) date) unknown) (unknown) (no (unknown) (unknown) MCV (units (unkno wn) date) unknown) (unknown) (no (unknown) (unknown) 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 (unknown) (no (unknown) (unknown) Marijuana use, (units (unknown) date) continuous unknown) (unknown) (no (unknown) (unknown) Medical History (units (unknown) date) (Reviewed 07/06/22 unknown) @ 06:11 by Leslie Torres MD) (unknown) (no (unknown) (unknown) [place] # (Auto) 200 (units (unknown) date) unknown) (unknown) (no (unknown) (unknown) [place] # (Auto) 700 (units (unknown) date) unknown) (unknown) (no (unknown) (unknown) [place] # (Auto) (units ( unknown) date) unknown) (unknown) (no (unknown) (unknown) [place] % (Auto) 2.7 (units (unknown) date) L unknown) (unknown) (no (unknown) (unknown) [place] % (Auto) 6.5 (units (unknown) date) unknown) (unknown) (no (unknown) (unknown) [place] % (Auto) (units ( unknown) date) unknown) (unknown) (no (unknown) (unknown) Mother Diabetes (units (unknown) date) mellitus unknown) (unknown) (no (unknown) (unknown) NEURO:? Anxious, (units (unknown) date) alert and oriented unknown) x3 (unknown) (no (unknown) (unknown) Narrative (units (unkn own) date) unknown) (unknown) (no (unknown) (unknown) Neut # (Auto) 5300 (units (unknown) date) unknown) (unknown) (no (unknown) (unknown) Neut # (Auto) 8500 (units (unknown) date) H unknown) (unknown) (no (unknown) (unknown) Neut # (Auto) (units ( unknown) date) unknown) (unknown) (no (unknown) (unknown) Neut % (Auto) 81.9 (units (unknown) date) H unknown) (unknown) (no (unknown) (unknown) Neut % (Auto) 89.4 (units (unknown) date) H unknown) (unknown) (no (unknown) (unknown) Neut % (Auto) (units ( unknown) date) unknown) (unknown) (no (unknown) (unknown) Objective (units (unkn own) date) unknown) (unknown) (no (unknown) (unknown) On Lovenox (units (unk nown) date) unknown) (unknown) (no (unknown) (unknown) On Wellbutrin on (units (unknown) date) an outpatient unknown) basis.? This has been held (unknown) (no (unknown) (unknown) Other Colon cancer (units (unknown) date) unknown) (unknown) (no (unknown) (unknown) Oxygen Delivery (units (unknown) date) Method Mechanical unknown) (unknown) (no (unknown) (unknown) Oxygen Delivery (units (unknown) date) Method Room Air unknown) (unknown) (no (unknown) (unknown) Oxygen Delivery (units (unknown) date) Method unknown) (unknown) (no (unknown) (unknown) PFSH (units (unkno wn) date) unknown) (unknown) (no (unknown) (unknown) Pancreatitis (units (u nknown) date) unknown) (unknown) (no (unknown) (unknown) Patient has had (units (unknown) date) labile emotions unknown) overnight. She is been complaining of pain this (unknown) (no (unknown) (unknown) Patient reports (units (unknown) date) for previous unknown) presentations, but this was the 1st time she (unknown) (no (unknown) (unknown) Patient: (units (unkno wn) date) Dameon Caputo MR#: unknown) [id number] (unknown) (no (unknown) (unknown) Plt Count 227 (units ( unknown) date) unknown) (unknown) (no (unknown) (unknown) Plt Count 229 (units ( unknown) date) unknown) (unknown) (no (unknown) (unknown) Plt Count (units (unkn own) date) unknown) (unknown) (no (unknown) (unknown) Potassium 3.9 (units ( unknown) date) unknown) (unknown) (no (unknown) (unknown) Potassium 4.8 (units ( unknown) date) unknown) (unknown) (no (unknown) (unknown) Potassium (units (unkn own) date) unknown) (unknown) (no (unknown) (unknown) Progress Note (units ( unknown) date) unknown) (unknown) (no (unknown) (unknown) Prophylaxis (units (un known) date) unknown) (unknown) (no (unknown) (unknown) Provider: (units (unkn own) date) Charissa Cordova MD unknown) (unknown) (no (unknown) (unknown) Pulse Oximetry 100 (units (unknown) date) 100 100 unknown) (unknown) (no (unknown) (unknown) Pulse Oximetry 100 (units (unknown) date) 95 100 unknown) (unknown) (no (unknown) (unknown) Pulse Oximetry 98 (units (unknown) date) unknown) (unknown) (no (unknown) (unknown) Pulse Rate 50 L 54 (units (unknown) date) L unknown) (unknown) (no (unknown) (unknown) Pulse Rate 54 L (units (unknown) date) unknown) (unknown) (no (unknown) (unknown) Pulse Rate 61 58 L (units (unknown) date) 55 L unknown) (unknown) (no (unknown) (unknown) Quality (units (unkno wn) date) unknown) (unknown) (no (unknown) (unknown) RBC 3.71 L (units (unk nown) date) unknown) (unknown) (no (unknown) (unknown) RBC 4.00 (units (unkno wn) date) unknown) (unknown) (no (unknown) (unknown) RBC (units (unkno wn) date) unknown) (unknown) (no (unknown) (unknown) RDW 13.2 (units (unkno wn) date) unknown) (unknown) (no (unknown) (unknown) RDW (units (unkno wn) date) unknown) (unknown) (no (unknown) (unknown) Resolved (units (unkno wn) date) unknown) (unknown) (no (unknown) (unknown) Respiratory Rate (units (unknown) date) 16 16 16 unknown) (unknown) (no (unknown) (unknown) Respiratory Rate (units (unknown) date) 16 17 unknown) (unknown) (no (unknown) (unknown) Respiratory Rate (units (unknown) date) 16 unknown) (unknown) (no (unknown) (unknown) Result Diagrams: (units (unknown) date) unknown) (unknown) (no (unknown) (unknown) SKIN: warm and (units (unknown) date) dry, no rash unknown) (unknown) (no (unknown) (unknown) She is extremely (units (unknown) date) tearful. She unknown) reports that she is angry at 1 of the staff who (unknown) (no (unknown) (unknown) Signed By: (units (unk nown) date) unknown) (unknown) (no (unknown) (unknown) Smoking Status: (units (unknown) date) Current every day unknown) smoker (unknown) (no (unknown) (unknown) Social History (units (unknown) date) (Reviewed 07/06/22 unknown) @ 06:11 by Leslie Torres MD) (unknown) (no (unknown) (unknown) Sodium 137 (units (unk nown) date) unknown) (unknown) (no (unknown) (unknown) Sodium 142 (units (unk nown) date) unknown) (unknown) (no (unknown) (unknown) Sodium (units (unkno wn) date) unknown) (unknown) (no (unknown) (unknown) Still A1c is 5.4%, (units (unknown) date) hyperglycemia is unknown) likely stress induced. (unknown) (no (unknown) (unknown) Subjective (units (unk nown) date) unknown) (unknown) (no (unknown) (unknown) Surgical History (units (unknown) date) (Reviewed 07/06/22 unknown) @ 06:11 by Leslie Torres MD) (unknown) (no (unknown) (unknown) Temperature 97.2 F (units (unknown) date) L unknown) (unknown) (no (unknown) (unknown) Temperature (units (un known) date) unknown) (unknown) (no (unknown) (unknown) Time Spent With (units (unknown) date) Patient unknown) (unknown) (no (unknown) (unknown) Total Bilirubin (units (unknown) date) 0.5 unknown) (unknown) (no (unknown) (unknown) Total Bilirubin (units (unknown) date) 0.6 unknown) (unknown) (no (unknown) (unknown) Total Bilirubin (units (unknown) date) unknown) (unknown) (no (unknown) (unknown) Total Creatine (units (unknown) date) Kinase 244 H unknown) (unknown) (no (unknown) (unknown) Total Creatine (units (unknown) date) Kinase 258 H unknown) (unknown) (no (unknown) (unknown) Total Creatine (units (unknown) date) Kinase unknown) (unknown) (no (unknown) (unknown) Total Protein 6.6 (units (unknown) date) unknown) (unknown) (no (unknown) (unknown) Total Protein 7.7 (units (unknown) date) unknown) (unknown) (no (unknown) (unknown) Total Protein (units ( unknown) date) unknown) (unknown) (no (unknown) (unknown) Troponin I 5.560 (units (unknown) date) H* unknown) (unknown) (no (unknown) (unknown) Troponin I 6.810 (units (unknown) date) H* unknown) (unknown) (no (unknown) (unknown) Troponin I (units (unk nown) date) unknown) (unknown) (no (unknown) (unknown) VTE (units (unkno wn) date) unknown) (unknown) (no (unknown) (unknown) Ventilation Room (units (unknown) date) Air unknown) (unknown) (no (unknown) (unknown) Vital Signs (units (un known) date) unknown) (unknown) (no (unknown) (unknown) WBC 10.3 D (units (unk nown) date) unknown) (unknown) (no (unknown) (unknown) WBC 5.9 (units (unkno wn) date) unknown) (unknown) (no (unknown) (unknown) WBC (units (unkno wn) date) unknown) (unknown) (no (unknown) (unknown) [Embedded Image (units (unknown) date) Not Available] unknown) (unknown) (no (unknown) (unknown) addition of a (units ( unknown) date) heparin infusion, unknown) aspirin, statin therapy, and a nuclear stress (unknown) (no (unknown) (unknown) alcohol intake: (units (unknown) date) current unknown) (unknown) (no (unknown) (unknown) also expresses the (units (unknown) date) desire to unknown) discharge. She states she can not afford her (unknown) (no (unknown) (unknown) began having this (units (unknown) date) problem 2 months unknown) later. 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 Troponin 6.8 (unknown) (no (unknown) (unknown) due to her (units (unk nown) date) emotional lability. unknown) Continues diphenhydramine and famotidine. (unknown) (no (unknown) (unknown) episodes of (units (un known) date) angioedema in the unknown) last 12 months. They have no clear trigger or (unknown) (no (unknown) (unknown) for the (units (unkno wn) date) angioedema. C1, C3 unknown) and C4 levels have all been checked previously and (unknown) (no (unknown) (unknown) have a couple of (units (unknown) date) episodes of unknown) hypotension yesterday am requiring IVF boluses. (unknown) (no (unknown) (unknown) hospitalization (units (unknown) date) and does not unknown) qualify for assistance as she is over income. (unknown) (no (unknown) (unknown) household members: (units (unknown) date) spouse unknown) (unknown) (no (unknown) (unknown) therapy assistant (units (un known) date) recommended unknown) transfer to tertiary care facility for angiogram. (unknown) (no (unknown) (unknown) intubation/mechani (units (unknown) date) abbie ventilation for unknown) airway protection.? She has been treated (unknown) (no (unknown) (unknown) last night. (units (un known) date) Patient aroused unknown) earlier this morning and wanted the ET tube (unknown) (no (unknown) (unknown) marijuana who was (units (unknown) date) [id number] with unknown) recurrent angioedema requiring (unknown) (no (unknown) (unknown) morning. She (units (u nknown) date) states she received unknown) her COVID vaccine approximately 1 year ago and (unknown) (no (unknown) (unknown) morning. (units (unkno wn) date) unknown) (unknown) (no (unknown) (unknown) noted to the (units (u nknown) date) tongue tip, unknown) decreased swelling overall, no cheek or lip swelling (unknown) (no (unknown) (unknown) pain in her throat (units (unknown) date) from the ET tube. unknown) She complains of severe tongue pain. She (unknown) (no (unknown) (unknown) removed. Tele (units ( unknown) date) therapy assistant unknown) approved and she was subsequently extubated. Tele (unknown) (no (unknown) (unknown) required (units (unkno wn) date) intubation for unknown) airway protection. Steroids were discontinued overnight (unknown) (no (unknown) (unknown) she felt did not (units (unknown) date) treat her right unknown) this morning. She states that she has had 4 (unknown) (no (unknown) (unknown) strongly that the (units (unknown) date) patient had stress unknown) cardiomyopathy. She recommended the (unknown) (no (unknown) (unknown) test to be (units (unk nown) date) performed for for unknown) discharge. (unknown) (no (unknown) (unknown) the COVID vaccine. (units (unknown) date) She denies any unknown) shortness of breath today. She reports mild (unknown) (no (unknown) (unknown) today; this time (units (unknown) date) is exclusive of unknown) procedural time. (unknown) (no (unknown) (unknown) w/epinephrine, (units (unknown) date) dexamethasone, unknown) benadryl and pepcid IV for angioedema. She did (unknown) (no (unknown) (unknown) were within normal (units (unknown) date) limits. Will check unknown) a CRP and a sedimentation rate. Result panel 704 (unknown) (no (unknown) (unknown) (no value) (units (unk nown) date) unknown) (unknown) (no (unknown) (unknown) (past 8 hours): (units (unknown) date) unknown) (unknown) (no (unknown) (unknown) 00:00 07/07/22 (units (unknown) date) unknown) (unknown) (no (unknown) (unknown) 00:00 (units (unkno wn) date) unknown) (unknown) (no (unknown) (unknown) 01:00 07/07/22 (units (unknown) date) unknown) (unknown) (no (unknown) (unknown) 01:20 01:20 01:20 (units (unknown) date) unknown) (unknown) (no (unknown) (unknown) 02:00 07/07/22 (units (unknown) date) unknown) (unknown) (no (unknown) (unknown) 02:00 (units (unkno wn) date) unknown) (unknown) (no (unknown) (unknown) 03:30 07/07/22 (units (unknown) date) unknown) (unknown) (no (unknown) (unknown) 04:00 (units (unkno wn) date) unknown) (unknown) (no (unknown) (unknown) 07/05/22 07/06/22 (units (unknown) date) 07/06/22 unknown) (unknown) (no (unknown) (unknown) 07/06/22 07/06/22 (units (unknown) date) 07/06/22 unknown) (unknown) (no (unknown) (unknown) 07/06/22 (units (unkno wn) date) unknown) (unknown) (no (unknown) (unknown) 07/07/22 01:20 (units (unknown) date) unknown) (unknown) (no (unknown) (unknown) 07/07/22 0835 (units ( unknown) date) unknown) (unknown) (no (unknown) (unknown) 07/07/22 07/07/22 (units (unknown) date) 07/07/22 unknown) (unknown) (no (unknown) (unknown) 07/07/22 (units (unkno wn) date) unknown) (unknown) (no (unknown) (unknown) 15:19 21:30 23:10 (units (unknown) date) unknown) (unknown) (no (unknown) (unknown) 22:00 07/06/22 (units (unknown) date) unknown) (unknown) (no (unknown) (unknown) 22:56 04:45 04:45 (units (unknown) date) unknown) (unknown) (no (unknown) (unknown) 23:00 07/07/22 (units (unknown) date) unknown) (unknown) (no (unknown) (unknown) [id number] (units (unkno wn) date) unknown) (unknown) (no (unknown) (unknown) 46-year-old female (units (unknown) date) with polysubstance unknown) dependence specifically cocaine and (unknown) (no (unknown) (unknown) ABD: Soft, NT/ND, (units (unknown) date) BT present in all 4 unknown) quadrants, no organomegaly or masses (unknown) (no (unknown) (unknown) ABG Base Excess (units (unknown) date) -3.0 L unknown) (unknown) (no (unknown) (unknown) ABG Base Excess (units (unknown) date) unknown) (unknown) (no (unknown) (unknown) ABG HCO3 23 (units (un known) date) unknown) (unknown) (no (unknown) (unknown) ABG HCO3 (units (unkno wn) date) unknown) (unknown) (no (unknown) (unknown) ABG O2 Saturation (units (unknown) date) 98 unknown) (unknown) (no (unknown) (unknown) ABG O2 Saturation (units (unknown) date) unknown) (unknown) (no (unknown) (unknown) ABG Total CO2 24 (units (unknown) date) unknown) (unknown) (no (unknown) (unknown) ABG Total CO2 (units ( unknown) date) unknown) (unknown) (no (unknown) (unknown) ABG pCO2 40.7 (units ( unknown) date) unknown) (unknown) (no (unknown) (unknown) ABG pCO2 (units (unkno wn) date) unknown) (unknown) (no (unknown) (unknown) ABG pH 7.36 (units (un known) date) unknown) (unknown) (no (unknown) (unknown) ABG pH (units (unkno wn) date) unknown) (unknown) (no (unknown) (unknown) ABG pO2 105 H (units ( unknown) date) unknown) (unknown) (no (unknown) (unknown) ABG pO2 (units (unkno wn) date) unknown) (unknown) (no (unknown) (unknown) ALT 32 (units (unkno wn) date) unknown) (unknown) (no (unknown) (unknown) ALT 35 H (units (unkno wn) date) unknown) (unknown) (no (unknown) (unknown) ALT (units (unkno wn) date) unknown) (unknown) (no (unknown) (unknown) APTT 26 (units (unkno wn) date) unknown) (unknown) (no (unknown) (unknown) APTT (units (unkno wn) date) unknown) (unknown) (no (unknown) (unknown) AST 62 H (units (unkno wn) date) unknown) (unknown) (no (unknown) (unknown) AST 70 H (units (unkno wn) date) unknown) (unknown) (no (unknown) (unknown) AST (units (unkno wn) date) unknown) (unknown) (no (unknown) (unknown) Abscess (units (unkno wn) date) unknown) (unknown) (no (unknown) (unknown) Age/Sex: 46 / F (units (unknown) date) unknown) (unknown) (no (unknown) (unknown) Albumin 3.5 (units (un known) date) unknown) (unknown) (no (unknown) (unknown) Albumin 4.2 (units (un known) date) unknown) (unknown) (no (unknown) (unknown) Albumin (units (unkno wn) date) unknown) (unknown) (no (unknown) (unknown) Albumin/Globulin (units (unknown) date) Ratio 1.1 unknown) (unknown) (no (unknown) (unknown) Albumin/Globulin (units (unknown) date) Ratio 1.2 unknown) (unknown) (no (unknown) (unknown) Albumin/Globulin (units (unknown) date) Ratio unknown) (unknown) (no (unknown) (unknown) Alkaline (units (unkno wn) date) Phosphatase 47 unknown) (unknown) (no (unknown) (unknown) Alkaline (units (unkno wn) date) Phosphatase 74 unknown) (unknown) (no (unknown) (unknown) Alkaline (units (unkno wn) date) Phosphatase unknown) (unknown) (no (unknown) (unknown) Angioedema with (units (unknown) date) acute hypoxic unknown) respiratory failure (unknown) (no (unknown) (unknown) Anxiety (units (unkno wn) date) unknown) (unknown) (no (unknown) (unknown) Assessment + Plan (units (unknown) date) narrative: unknown) (unknown) (no (unknown) (unknown) Assessment + Plan (units (unknown) date) unknown) (unknown) (no (unknown) (unknown) BUN 11 (units (unkno wn) date) unknown) (unknown) (no (unknown) (unknown) BUN 16 (units (unkno wn) date) unknown) (unknown) (no (unknown) (unknown) BUN (units (unkno wn) date) unknown) (unknown) (no (unknown) (unknown) BUN/Creatinine (units (unknown) date) Ratio 12.6 unknown) (unknown) (no (unknown) (unknown) BUN/Creatinine (units (unknown) date) Ratio 20.3 unknown) (unknown) (no (unknown) (unknown) BUN/Creatinine (units [...] (unknown) (unknown) Blood Pressure (units (unknown) date) 101/77 105/70 unknown) (unknown) (no (unknown) (unknown) Blood Pressure (units (unknown) date) 114/79 111/79 unknown) 111/82 (unknown) (no (unknown) (unknown) Blood Pressure (units (unknown) date) 124/89 unknown) (unknown) (no (unknown) (unknown) CHEST: Respiratory (units (unknown) date) excursions unknown) symmetric, CTAB (unknown) (no (unknown) (unknown) CK-MB (CK-2) 11.30 (units (unknown) date) H unknown) (unknown) (no (unknown) (unknown) CK-MB (CK-2) 14.60 (units (unknown) date) H unknown) (unknown) (no (unknown) (unknown) CK-MB (CK-2) Rel (units (unknown) date) Index 4.6 unknown) (unknown) (no (unknown) (unknown) CK-MB (CK-2) Rel (units (unknown) date) Index 5.7 H unknown) (unknown) (no (unknown) (unknown) CK-MB (CK-2) Rel (units (unknown) date) Index unknown) (unknown) (no (unknown) (unknown) CK-MB (CK-2) (units (u nknown) date) unknown) (unknown) (no (unknown) (unknown) CV: Tachycardic (units (unknown) date) with regular unknown) rhythm, no M/R/G (unknown) (no (unknown) (unknown) Calcium 8.5 (units (un known) date) unknown) (unknown) (no (unknown) (unknown) Calcium (units (unkno wn) date) unknown) (unknown) (no (unknown) (unknown) Carbon Dioxide 25 (units (unknown) date) unknown) (unknown) (no (unknown) (unknown) Carbon Dioxide 27 (units (unknown) date) unknown) (unknown) (no (unknown) (unknown) Carbon Dioxide (units (unknown) date) unknown) (unknown) (no (unknown) (unknown) Chloride 103 (units (u nknown) date) unknown) (unknown) (no (unknown) (unknown) Chloride 104 (units (u nknown) date) unknown) (unknown) (no (unknown) (unknown) Chloride (units (unkno wn) date) unknown) (unknown) (no (unknown) (unknown) Chronic abdominal (units (unknown) date) pain unknown) (unknown) (no (unknown) (unknown) Code status (units (un known) date) unknown) (unknown) (no (unknown) (unknown) Creatinine 0.79 (units (unknown) date) unknown) (unknown) (no (unknown) (unknown) Creatinine 0.87 (units (unknown) date) unknown) (unknown) (no (unknown) (unknown) Creatinine (units (unk nown) date) unknown) (unknown) (no (unknown) (unknown) Critical Care (units ( unknown) date) time: unknown) (unknown) (no (unknown) (unknown) Cyclic vomiting (units (unknown) date) syndrome unknown) (unknown) (no (unknown) (unknown) : 1975 (units (unknown) date) Acct:[id number] unknown) (unknown) (no (unknown) (unknown) Date of Service: (units (unknown) date) 07/05/22 unknown) (unknown) (no (unknown) (unknown) Daughter (units (unkno wn) date) Angio-edema unknown) (unknown) (no (unknown) (unknown) Deep Vein (units (unkn own) date) Thrombosis/Pulmonar unknown) y Embolism Present on Admission: No (unknown) (no (unknown) (unknown) Disposition (units (un known) date) unknown) (unknown) (no (unknown) (unknown) EXTR: warm, well (units (unknown) date) perfused, no C/C/E unknown) (unknown) (no (unknown) (unknown) Echocardiogram (units (unknown) date) done this admission unknown) revealed significant cardiomyopathy felt to (unknown) (no (unknown) (unknown) Echocardiogram (units (unknown) date) performed yesterday unknown) showed new reduced EF, per on-call (unknown) (no (unknown) (unknown) Eos # (Auto) 0 (units (unknown) date) unknown) (unknown) (no (unknown) (unknown) Eos # (Auto) (units (u nknown) date) unknown) (unknown) (no (unknown) (unknown) Eos % (Auto) 0.0 L (units (unknown) date) unknown) (unknown) (no (unknown) (unknown) Eos % (Auto) 0.3 L (units (unknown) date) unknown) (unknown) (no (unknown) (unknown) Eos % (Auto) (units (u nknown) date) unknown) (unknown) (no (unknown) (unknown) Epinephrine was (units (unknown) date) discontinued unknown) secondary to elevated troponin. Unclear etiology (unknown) (no (unknown) (unknown) Estimated GFR > 60 (units (unknown) date) unknown) (unknown) (no (unknown) (unknown) Estimated GFR (units ( unknown) date) unknown) (unknown) (no (unknown) (unknown) Exam Narrative: (units (unknown) date) unknown) (unknown) (no (unknown) (unknown) Exam (units (unkno wn) date) unknown) (unknown) (no (unknown) (unknown) Family History (units (unknown) date) (Reviewed 07/06/22 unknown) @ 06:11 by Leslie Torres MD) (unknown) (no (unknown) (unknown) Family history of (units (unknown) date) angioedema unknown) (unknown) (no (unknown) (unknown) Father (units (unkno wn) date) Hypertension unknown) (unknown) (no (unknown) (unknown) FiO2 30 (units (unkno wn) date) unknown) (unknown) (no (unknown) (unknown) FiO2 (units (unkno wn) date) unknown) (unknown) (no (unknown) (unknown) Fraction of (units (un known) date) Inspired Oxygen unknown) 0.30 30 0.30 (unknown) (no (unknown) (unknown) Fraction of (units (un known) date) Inspired Oxygen unknown) 0.30 (unknown) (no (unknown) (unknown) Fraction of (units (un known) date) Inspired Oxygen unknown) (unknown) (no (unknown) (unknown) Full (units (unkno wn) date) unknown) (unknown) (no (unknown) (unknown) GEN:? Alert, (units (u nknown) date) tearful, very unknown) anxious and confrontational (unknown) (no (unknown) (unknown) Globulin 3.1 (units (u nknown) date) unknown) (unknown) (no (unknown) (unknown) Globulin 3.5 (units (u nknown) date) unknown) (unknown) (no (unknown) (unknown) Globulin (units (unkno wn) date) unknown) (unknown) (no (unknown) (unknown) Glucose 155 H (units ( unknown) date) unknown) (unknown) (no (unknown) (unknown) Glucose 194 H D (units (unknown) date) unknown) (unknown) (no (unknown) (unknown) Glucose (units (unkno wn) date) unknown) (unknown) (no (unknown) (unknown) HEENT:NC, face (units (unknown) date) symmetric, unknown) abrasions noted sublingually, there is also abrasion (unknown) (no (unknown) (unknown) Hct 35.1 L (units (unk nown) date) unknown) (unknown) (no (unknown) (unknown) Hct 37.7 (units (unkno wn) date) unknown) (unknown) (no (unknown) (unknown) Hct (units (unkno wn) date) unknown) (unknown) (no (unknown) (unknown) Hemoglobin A1c 5.4 (units (unknown) date) unknown) (unknown) (no (unknown) (unknown) Hemoglobin A1c (units (unknown) date) unknown) (unknown) (no (unknown) (unknown) Hgb 11.7 L (units (unk nown) date) unknown) (unknown) (no (unknown) (unknown) Hgb 12.5 (units (unkno wn) date) unknown) (unknown) (no (unknown) (unknown) Hgb (units (unkno wn) date) unknown) (unknown) (no (unknown) (unknown) Holding her (units (unk nown) date) outpatient unknown) antihypertensive therapy.? Blood pressure is normotensive (unknown) (no (unknown) (unknown) However, (units (un known) date) Masoud who read unknown) the patient's echocardiogram yesterday felt very (unknown) (no (unknown) (unknown) Hx of appendectomy (units (unknown) date) unknown) (unknown) (no (unknown) (unknown) Hx of (units (unkno wn) date) cholecystectomy unknown) (unknown) (no (unknown) (unknown) Hyperglycemia (units ( unknown) date) unknown) (unknown) (no (unknown) (unknown) Hypertension (units (u nknown) date) unknown) (unknown) (no (unknown) (unknown) Hypotension (units (un known) date) unknown) (unknown) (no (unknown) (unknown) I spent a total of (units (unknown) date) [] minutes of unknown) critical care time on this patient's care (unknown) (no (unknown) (unknown) Intensive care (units (unknown) date) unit. Patient is unknown) upset that she is using a commode, is on (unknown) (no (unknown) (unknown) Interval history: (units (unknown) date) unknown) (unknown) (no (unknown) (unknown) [facility] (units (unknown) date) [address] unknown) [place] [address] (unknown) (no (unknown) (unknown) Laboratory Results (units (unknown) date) - last 24 hr unknown) (unknown) (no (unknown) (unknown) Labs (units (unkno wn) date) unknown) (unknown) (no (unknown) (unknown) Labs: (units (unkno wn) date) unknown) (unknown) (no (unknown) (unknown) Lymph # (Auto) (units (unknown) date) 1100 unknown) (unknown) (no (unknown) (unknown) Lymph # (Auto) 400 (units (unknown) date) L unknown) (unknown) (no (unknown) (unknown) Lymph # (Auto) (units (unknown) date) unknown) (unknown) (no (unknown) (unknown) Lymph % (Auto) (units (unknown) date) 11.0 L unknown) (unknown) (no (unknown) (unknown) Lymph % (Auto) 7.5 (units (unknown) date) L unknown) (unknown) (no (unknown) (unknown) Lymph % (Auto) (units (unknown) date) unknown) (unknown) (no (unknown) (unknown) MCH 31.2 (units (unkno wn) date) unknown) (unknown) (no (unknown) (unknown) MCH 31.5 (units (unkno wn) date) unknown) (unknown) (no (unknown) (unknown) MCH (units (unkno wn) date) unknown) (unknown) (no (unknown) (unknown) MCHC 33.1 (units (unkn own) date) unknown) (unknown) (no (unknown) (unknown) MCHC 33.3 (units (unkn own) date) unknown) (unknown) (no (unknown) (unknown) MCHC (units (unkno wn) date) unknown) (unknown) (no (unknown) (unknown) MCV 94.4 (units (unkno wn) date) unknown) (unknown) (no (unknown) (unknown) MCV (units (unkno wn) date) unknown) (unknown) (no (unknown) (unknown) 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 (unknown) (no (unknown) (unknown) Marijuana use, (units (unknown) date) continuous unknown) (unknown) (no (unknown) (unknown) Medical History (units (unknown) date) (Reviewed 07/06/22 unknown) @ 06:11 by Leslie Torres MD) (unknown) (no (unknown) (unknown) [place] # (Auto) 200 (units (unknown) date) unknown) (unknown) (no (unknown) (unknown) [place] # (Auto) 700 (units (unknown) date) unknown) (unknown) (no (unknown) (unknown) [place] # (Auto) (units ( unknown) date) unknown) (unknown) (no (unknown) (unknown) [place] % (Auto) 2.7 (units (unknown) date) L unknown) (unknown) (no (unknown) (unknown) [place] % (Auto) 6.5 (units (unknown) date) unknown) (unknown) (no (unknown) (unknown) [place] % (Auto) (units ( unknown) date) unknown) (unknown) (no (unknown) (unknown) Mother Diabetes (units (unknown) date) mellitus unknown) (unknown) (no (unknown) (unknown) NEURO:? 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 (unknown) (no (unknown) (unknown) Narrative (units (unkn own) date) unknown) (unknown) (no (unknown) (unknown) Neut # (Auto) 5300 (units (unknown) date) unknown) (unknown) (no (unknown) (unknown) Neut # (Auto) 8500 (units (unknown) date) H unknown) (unknown) (no (unknown) (unknown) Neut # (Auto) (units ( unknown) date) unknown) (unknown) (no (unknown) (unknown) Neut % (Auto) 81.9 (units (unknown) date) H unknown) (unknown) (no (unknown) (unknown) Neut % (Auto) 89.4 (units (unknown) date) H unknown) (unknown) (no (unknown) (unknown) Neut % (Auto) (units ( unknown) date) unknown) (unknown) (no (unknown) (unknown) Objective (units (unkn own) date) unknown) (unknown) (no (unknown) (unknown) On Lovenox (units (unk nown) date) unknown) (unknown) (no (unknown) (unknown) On Wellbutrin on (units (unknown) date) an outpatient unknown) basis.? She will be restarted (unknown) (no (unknown) (unknown) Other Colon cancer (units (unknown) date) unknown) (unknown) (no (unknown) (unknown) Oxygen Delivery (units (unknown) date) Method Mechanical unknown) (unknown) (no (unknown) (unknown) Oxygen Delivery (units (unknown) date) Method Room Air unknown) (unknown) (no (unknown) (unknown) Oxygen Delivery (units (unknown) date) Method unknown) (unknown) (no (unknown) (unknown) PFSH (units (unkno wn) date) unknown) (unknown) (no (unknown) (unknown) Pancreatitis (units (u nknown) date) unknown) (unknown) (no (unknown) (unknown) Patient has had (units (unknown) date) labile emotions unknown) overnight. She is been complaining of pain this (unknown) (no (unknown) (unknown) Patient reports (units (unknown) date) for previous unknown) presentations, but this was the 1st time she (unknown) (no (unknown) (unknown) Patient reports (units (unknown) date) she is not used unknown) cocaine recently and feels it has nothing to do (unknown) (no (unknown) (unknown) Patient was (units (un known) date) initiated on a unknown) heparin infusion per recommendations by (unknown) (no (unknown) (unknown) Patient: (units (unkno wn) date) Dameon Caputo MR#: unknown) [id number] (unknown) (no (unknown) (unknown) Plt Count 227 (units ( unknown) date) unknown) (unknown) (no (unknown) (unknown) Plt Count 229 (units ( unknown) date) unknown) (unknown) (no (unknown) (unknown) Plt Count (units (unkn own) date) unknown) (unknown) (no (unknown) (unknown) Potassium 3.9 (units ( unknown) date) unknown) (unknown) (no (unknown) (unknown) Potassium 4.8 (units ( unknown) date) unknown) (unknown) (no (unknown) (unknown) Potassium (units (unkn own) date) unknown) (unknown) (no (unknown) (unknown) Progress Note (units ( unknown) date) unknown) (unknown) (no (unknown) (unknown) Prophylaxis (units (un known) date) unknown) (unknown) (no (unknown) (unknown) Provider: (units (unkn own) date) Charissa Cordova MD unknown) (unknown) (no (unknown) (unknown) Pulse Oximetry 100 (units (unknown) date) 100 100 unknown) (unknown) (no (unknown) (unknown) Pulse Oximetry 100 (units (unknown) date) 95 100 unknown) (unknown) (no (unknown) (unknown) Pulse Oximetry 98 (units (unknown) date) unknown) (unknown) (no (unknown) (unknown) Pulse Rate 50 L 54 (units (unknown) date) L unknown) (unknown) (no (unknown) (unknown) Pulse Rate 54 L (units (unknown) date) unknown) (unknown) (no (unknown) (unknown) Pulse Rate 61 58 L (units (unknown) date) 55 L unknown) (unknown) (no (unknown) (unknown) Quality (units (unkno wn) date) unknown) (unknown) (no (unknown) (unknown) RBC 3.71 L (units (unk nown) date) unknown) (unknown) (no (unknown) (unknown) RBC 4.00 (units (unkno wn) date) unknown) (unknown) (no (unknown) (unknown) RBC (units (unkno wn) date) unknown) (unknown) (no (unknown) (unknown) RDW 13.2 (units (unkno wn) date) unknown) (unknown) (no (unknown) (unknown) RDW (units (unkno wn) date) unknown) (unknown) (no (unknown) (unknown) Resolved (units (unkno wn) date) unknown) (unknown) (no (unknown) (unknown) Respiratory Rate (units (unknown) date) 16 16 16 unknown) (unknown) (no (unknown) (unknown) Respiratory Rate (units (unknown) date) 16 17 unknown) (unknown) (no (unknown) (unknown) Respiratory Rate (units (unknown) date) 16 unknown) (unknown) (no (unknown) (unknown) Result Diagrams: (units (unknown) date) unknown) (unknown) (no (unknown) (unknown) [place]. She was (units (unknown) date) also initiated on unknown) aspirin and atorvastatin. Nuclear stress (unknown) (no (unknown) (unknown) SKIN: warm and (units (unknown) date) dry, no rash unknown) (unknown) (no (unknown) (unknown) She does not wish (units (unknown) date) to have her nurse unknown) review them. I have explained she can use (unknown) (no (unknown) (unknown) She is extremely (units (unknown) date) tearful. She unknown) reports that she is angry at 1 of the staff who (unknown) (no (unknown) (unknown) Signed (units (unkno wn) date) By:<Electronically unknown) signed by Charissa Cordova MD> (unknown) (no (unknown) (unknown) Smoking Status: (units (unknown) date) Current every day unknown) smoker (unknown) (no (unknown) (unknown) Social History (units (unknown) date) (Reviewed 07/06/22 unknown) @ 06:11 by Leslie Torres MD) (unknown) (no (unknown) (unknown) Sodium 137 (units (unk nown) date) unknown) (unknown) (no (unknown) (unknown) Sodium 142 (units (unk nown) date) unknown) (unknown) (no (unknown) (unknown) Sodium (units (unkno wn) date) unknown) (unknown) (no (unknown) (unknown) Still A1c is 5.4%, (units (unknown) date) hyperglycemia is unknown) likely stress induced. 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 unknown) (unknown) (no (unknown) (unknown) Surgical History (units (unknown) date) (Reviewed 07/06/22 unknown) @ 06:11 by Leslie Torres MD) (unknown) (no (unknown) (unknown) Takotsubo (units (unkn own) date) cardiomyopathy unknown) (unknown) (no (unknown) (unknown) Temperature 97.2 F (units (unknown) date) L unknown) (unknown) (no (unknown) (unknown) Temperature (units (un known) date) unknown) (unknown) (no (unknown) (unknown) Time Spent With (units (unknown) date) Patient unknown) (unknown) (no (unknown) (unknown) Total Bilirubin (units (unknown) date) 0.5 unknown) (unknown) (no (unknown) (unknown) Total Bilirubin (units (unknown) date) 0.6 unknown) (unknown) (no (unknown) (unknown) Total Bilirubin (units (unknown) date) unknown) (unknown) (no (unknown) (unknown) Total Creatine (units (unknown) date) Kinase 244 H unknown) (unknown) (no (unknown) (unknown) Total Creatine (units (unknown) date) Kinase 258 H unknown) (unknown) (no (unknown) (unknown) Total Creatine (units (unknown) date) Kinase unknown) (unknown) (no (unknown) (unknown) Total Protein 6.6 (units (unknown) date) unknown) (unknown) (no (unknown) (unknown) Total Protein 7.7 (units (unknown) date) unknown) (unknown) (no (unknown) (unknown) Total Protein (units ( unknown) date) unknown) (unknown) (no (unknown) (unknown) Troponin I 5.560 (units (unknown) date) H* unknown) (unknown) (no (unknown) (unknown) Troponin I 6.810 (units (unknown) date) H* unknown) (unknown) (no (unknown) (unknown) Troponin I (units (unk nown) date) unknown) (unknown) (no (unknown) (unknown) VTE (units (unkno wn) date) unknown) (unknown) (no (unknown) (unknown) Ventilation Room (units (unknown) date) Air unknown) (unknown) (no (unknown) (unknown) Vital Signs (units (un known) date) unknown) (unknown) (no (unknown) (unknown) WBC 10.3 D (units (unk nown) date) unknown) (unknown) (no (unknown) (unknown) WBC 5.9 (units (unkno wn) date) unknown) (unknown) (no (unknown) (unknown) WBC (units (unkno wn) date) unknown) (unknown) (no (unknown) (unknown) [Embedded Image (units (unknown) date) Not Available] unknown) (unknown) (no (unknown) (unknown) a stress test can (units (unknown) date) not be performed on unknown) the weekend. She also are good that we (unknown) (no (unknown) (unknown) addition of a (units ( unknown) date) heparin infusion, unknown) aspirin, statin therapy, and a nuclear stress (unknown) (no (unknown) (unknown) alcohol intake: (units (unknown) date) current unknown) (unknown) (no (unknown) (unknown) also expresses the (units (unknown) date) desire to unknown) discharge. She states she can not afford her (unknown) (no (unknown) (unknown) as the patient was (units (unknown) date) poorly receptive to unknown) further conversation with me. (unknown) (no (unknown) (unknown) be stress-induced. (units (unknown) date) Ejection fraction unknown) was decreased to 30-35%, which is new from (unknown) (no (unknown) (unknown) began having this (units (unknown) date) problem 2 months unknown) later. 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 Troponin 6.8 (unknown) (no (unknown) (unknown) check an IgE (units (u nknown) date) level. unknown) (unknown) (no (unknown) (unknown) did explain that (units (unknown) date) they could be unknown) printed out and reviewed with her by her nurse. (unknown) (no (unknown) (unknown) due to her (units (unk nown) date) emotional lability. unknown) Continues diphenhydramine and famotidine. (unknown) (no (unknown) (unknown) episodes of (units (un known) date) angioedema in the unknown) last 12 months. They have no clear trigger or (unknown) (no (unknown) (unknown) explain that most (units (unknown) date) hospitals are full unknown) and would likely be unable to accomplish (unknown) (no (unknown) (unknown) for the (units (unkno wn) date) angioedema. C1, C3 unknown) and C4 levels have all been checked previously and (unknown) (no (unknown) (unknown) have a couple of (units (unknown) date) episodes of unknown) hypotension yesterday am requiring IVF boluses. (unknown) (no (unknown) (unknown) have free access (units (unknown) date) to her chart. I unknown) have discussed this with the patient's nurse (unknown) (no (unknown) (unknown) hospitalization (units (unknown) date) and does not unknown) qualify for assistance as she is over income. (unknown) (no (unknown) (unknown) household members: (units (unknown) date) spouse unknown) (unknown) (no (unknown) (unknown) therapy assistant (units (un known) date) recommended unknown) transfer to tertiary care facility for angiogram. (unknown) (no (unknown) (unknown) intubation/mechani (units (unknown) date) abbie ventilation for unknown) airway protection.? She has been treated (unknown) (no (unknown) (unknown) last night. (units (un known) date) Patient aroused unknown) earlier this morning and wanted the ET tube (unknown) (no (unknown) (unknown) marijuana who was (units (unknown) date) [id number] with unknown) recurrent angioedema requiring (unknown) (no (unknown) (unknown) morning. She (units (u nknown) date) states she received unknown) her COVID vaccine approximately 1 year ago and (unknown) (no (unknown) (unknown) morning. (units (unkno wn) date) unknown) (unknown) (no (unknown) (unknown) not access the (units (unknown) date) portal. She wants a unknown) computer brought into the room so she could (unknown) (no (unknown) (unknown) noted to the (units (u nknown) date) tongue tip, unknown) decreased swelling overall, no cheek or lip swelling (unknown) (no (unknown) (unknown) pain in her throat (units (unknown) date) from the ET tube. unknown) She complains of severe tongue pain. She (unknown) (no (unknown) (unknown) prior. Discussed (units (unknown) date) importance of unknown) monitoring with the patient. She is very (unknown) (no (unknown) (unknown) reluctant to (units (u nknown) date) remain in the unknown) hospital. (unknown) (no (unknown) (unknown) remain in the (units ( unknown) date) hospital until unknown) Saturday to obtain a stress test. She was asking why (unknown) (no (unknown) (unknown) removed. Tele (units ( unknown) date) therapy assistant unknown) approved and she was subsequently extubated. Tele (unknown) (no (unknown) (unknown) required (units (unkno wn) date) intubation for unknown) airway protection. Steroids were discontinued overnight (unknown) (no (unknown) (unknown) she felt did not (units (unknown) date) treat her right unknown) this morning. 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 I did (unknown) (no (unknown) (unknown) strongly that the (units (unknown) date) patient had stress unknown) cardiomyopathy. She recommended the (unknown) (no (unknown) (unknown) telemetry, and (units (unknown) date) reports her unknown) television has not been working. She reports that (unknown) (no (unknown) (unknown) test to be (units (unk nown) date) performed for for unknown) discharge. (unknown) (no (unknown) (unknown) testing was (units (un known) date) recommended. This unknown) will be ordered. Patient is very reluctant to (unknown) (no (unknown) (unknown) that prior to (units ( unknown) date) Saturday anyway. She unknown) was very confrontational. (unknown) (no (unknown) (unknown) the COVID vaccine. (units (unknown) date) She denies any unknown) shortness of breath today. She reports mild (unknown) (no (unknown) (unknown) the portal to see (units (unknown) date) all of her labs and unknown) studies directly, but she states she can (unknown) (no (unknown) (unknown) today; this time (units (unknown) date) is exclusive of unknown) procedural time. (unknown) (no (unknown) (unknown) understanding of (units (unknown) date) her cardiac issues unknown) and 1 to have full access to her labs. I (unknown) (no (unknown) (unknown) w/epinephrine, (units (unknown) date) dexamethasone, unknown) benadryl and pepcid IV for angioedema. She did (unknown) (no (unknown) (unknown) were within normal (units (unknown) date) limits. Will check unknown) a CRP and a sedimentation rate. We will (unknown) (no (unknown) (unknown) with her current (units (unknown) date) presentation. unknown) Result panel [id number] (unknown) (no (unknown) (unknown) (no value) (units (unk nown) date) unknown) (unknown) (no (unknown) (unknown) (past 8 hours): (units (unknown) date) unknown) (unknown) (no (unknown) (unknown) -Patient (units (unkno wn) date) extubated at 2 am unknown) this morning (unknown) (no (unknown) (unknown) -Patient is (units (un known) date) hemodynamically unknown) stable off Epi drip (unknown) (no (unknown) (unknown) -awaiting (units (unkn own) date) transfer to unknown) another hospital for coronary angiogram (unknown) (no (unknown) (unknown) -heparin drip (units ( unknown) date) unknown) (unknown) (no (unknown) (unknown) -per nurse (units (unk nown) date) patient's tongue unknown) swelling has improved (unknown) (no (unknown) (unknown) -she is currently (units (unknown) date) 2 L nc unknown) (unknown) (no (unknown) (unknown) 0.2 MCG/KG/HR (units ( unknown) date) unknown) (unknown) (no (unknown) (unknown) 00:00 07/07/22 (units (unknown) date) unknown) (unknown) (no (unknown) (unknown) 01:00 07/07/22 (units (unknown) date) unknown) (unknown) (no (unknown) (unknown) 01:20 01:20 01:20 (units (unknown) date) unknown) (unknown) (no (unknown) (unknown) 02:00 07/07/22 (units (unknown) date) unknown) (unknown) (no (unknown) (unknown) 02:00 (units (unkno wn) date) unknown) (unknown) (no (unknown) (unknown) 03:30 (units (unkno wn) date) unknown) (unknown) (no (unknown) (unknown) 04:00 07/07/22 (units (unknown) date) unknown) (unknown) (no (unknown) (unknown) 05:00 (units (unkno wn) date) unknown) (unknown) (no (unknown) (unknown) 05:45 05:45 (units (un known) date) unknown) (unknown) (no (unknown) (unknown) 06:00 (units (unkno wn) date) unknown) (unknown) (no (unknown) (unknown) 04/14/22 [Rx (units (u nknown) date) Confirmed unknown) 07/06/22] (unknown) (no (unknown) (unknown) 07/06/22 07/06/22 (units (unknown) date) 07/06/22 unknown) (unknown) (no (unknown) (unknown) 07/06/22] (units (unkn own) date) unknown) (unknown) (no (unknown) (unknown) 07/06: (units (un known) date) increased to > 6, unknown) patient taken off Epi drip and heparin drip (unknown) (no (unknown) (unknown) 07/07/22 01:20 (units (unknown) date) unknown) (unknown) (no (unknown) (unknown) 07/07/22 02:00 (units (unknown) date) unknown) (unknown) (no (unknown) (unknown) 07/07/22 06:31 (units (unknown) date) unknown) (unknown) (no (unknown) (unknown) 07/07/22 07/07/22 (units (unknown) date) 07/07/22 unknown) (unknown) (no (unknown) (unknown) 07/07/22 07/07/22 (units (unknown) date) unknown) (unknown) (no (unknown) (unknown) 07/07/22 (units (unkno wn) date) unknown) (unknown) (no (unknown) (unknown) 12 UNITS/KG/HR (units (unknown) date) unknown) (unknown) (no (unknown) (unknown) 15:19 21:30 23:10 (units (unknown) date) unknown) (unknown) (no (unknown) (unknown) [id number] (units (unkno wn) date) unknown) (unknown) (no (unknown) (unknown) ABG Base Excess (units (unknown) date) -3.0 L unknown) (unknown) (no (unknown) (unknown) ABG Base Excess (units (unknown) date) unknown) (unknown) (no (unknown) (unknown) ABG HCO3 23 (units (un known) date) unknown) (unknown) (no (unknown) (unknown) ABG HCO3 (units (unkno wn) date) unknown) (unknown) (no (unknown) (unknown) ABG O2 Saturation (units (unknown) date) 98 unknown) (unknown) (no (unknown) (unknown) ABG O2 Saturation (units (unknown) date) unknown) (unknown) (no (unknown) (unknown) ABG Total CO2 24 (units (unknown) date) unknown) (unknown) (no (unknown) (unknown) ABG Total CO2 (units ( unknown) date) unknown) (unknown) (no (unknown) (unknown) ABG pCO2 40.7 (units ( unknown) date) unknown) (unknown) (no (unknown) (unknown) ABG pCO2 (units (unkno wn) date) unknown) (unknown) (no (unknown) (unknown) ABG pH 7.36 (units (un known) date) unknown) (unknown) (no (unknown) (unknown) ABG pH (units (unkno wn) date) unknown) (unknown) (no (unknown) (unknown) ABG pO2 105 H (units ( unknown) date) unknown) (unknown) (no (unknown) (unknown) ABG pO2 (units (unkno wn) date) unknown) (unknown) (no (unknown) (unknown) ACHS KIRIT (units (unkno wn) date) unknown) (unknown) (no (unknown) (unknown) ALT 32 (units (unkno wn) date) unknown) (unknown) (no (unknown) (unknown) ALT (units (unkno wn) date) unknown) (unknown) (no (unknown) (unknown) APTT 26 (units (unkno wn) date) unknown) (unknown) (no (unknown) (unknown) APTT 42 H D (units (un known) date) unknown) (unknown) (no (unknown) (unknown) APTT (units (unkno wn) date) unknown) (unknown) (no (unknown) (unknown) AST 62 H (units (unkno wn) date) unknown) (unknown) (no (unknown) (unknown) AST (units (unkno wn) date) unknown) (unknown) (no (unknown) (unknown) Acute respiratory (units (unknown) date) failure unknown) (unknown) (no (unknown) (unknown) Age/Sex: 46 / F (units (unknown) date) unknown) (unknown) (no (unknown) (unknown) Albumin 3.5 (units (un known) date) unknown) (unknown) (no (unknown) (unknown) Albumin (units (unkno wn) date) unknown) (unknown) (no (unknown) (unknown) Albumin/Globulin (units (unknown) date) Ratio 1.1 unknown) (unknown) (no (unknown) (unknown) Albumin/Globulin (units (unknown) date) Ratio unknown) (unknown) (no (unknown) (unknown) Alkaline (units (unkno wn) date) Phosphatase 47 unknown) (unknown) (no (unknown) (unknown) Alkaline (units (unkno wn) date) Phosphatase unknown) (unknown) (no (unknown) (unknown) Angioedema- sig (units (unknown) date) improved unknown) (unknown) (no (unknown) (unknown) Assessment + Plan (units (unknown) date) narrative: unknown) (unknown) (no (unknown) (unknown) Assessment + Plan (units (unknown) date) unknown) (unknown) (no (unknown) (unknown) Assessment (units (unk nown) date) unknown) (unknown) (no (unknown) (unknown) BID KIRIT (units (unkno wn) date) Administration unknown) (unknown) (no (unknown) (unknown) BUN 16 (units (unkno wn) date) unknown) (unknown) (no (unknown) (unknown) BUN (units (unkno wn) date) unknown) (unknown) (no (unknown) (unknown) BUN/Creatinine (units (unknown) date) Ratio 20.3 unknown) (unknown) (no (unknown) (unknown) BUN/Creatinine (units [...] (unknown) (unknown) Blood Pressure (units (unknown) date) 105/70 124/89 unknown) (unknown) (no (unknown) (unknown) Blood Pressure (units (unknown) date) 111/82 101/77 unknown) (unknown) (no (unknown) (unknown) Blood Pressure (units (unknown) date) 98/69 unknown) (unknown) (no (unknown) (unknown) Blood Pressure (units (unknown) date) unknown) (unknown) (no (unknown) (unknown) CK-MB (CK-2) (units (u nknown) date) 11.10 H unknown) (unknown) (no (unknown) (unknown) CK-MB (CK-2) (units (u nknown) date) 11.30 H unknown) (unknown) (no (unknown) (unknown) CK-MB (CK-2) (units (u nknown) date) 14.60 H unknown) (unknown) (no (unknown) (unknown) CK-MB (CK-2) Rel (units (unknown) date) Index 1.5 unknown) (unknown) (no (unknown) (unknown) CK-MB (CK-2) Rel (units (unknown) date) Index 4.6 unknown) (unknown) (no (unknown) (unknown) CK-MB (CK-2) Rel (units (unknown) date) Index 5.7 H unknown) (unknown) (no (unknown) (unknown) CONT KIRIT 18.3 (units ( unknown) date) mls/hr unknown) (unknown) (no (unknown) (unknown) Calcium 8.5 (units (un known) date) unknown) (unknown) (no (unknown) (unknown) Calcium (units (unkno wn) date) unknown) (unknown) (no (unknown) (unknown) Carbon Dioxide 27 (units (unknown) date) unknown) (unknown) (no (unknown) (unknown) Carbon Dioxide (units (unknown) date) unknown) (unknown) (no (unknown) (unknown) Chlorhexidine (units ( unknown) date) Gluconate 15 Ml unknown) Cup PO Not Given (unknown) (no (unknown) (unknown) Chlorhexidine (units ( unknown) date) Gluconate 15 ml unknown) 07/06/22 08:00 07/07/22 02:49 (unknown) (no (unknown) (unknown) Chloride 103 (units (u nknown) date) unknown) (unknown) (no (unknown) (unknown) Chloride (units (unkno wn) date) unknown) (unknown) (no (unknown) (unknown) Compazine 25 mg (units (unknown) date) WV PRN PRN Nausea unknown) 07/06/22 [History Confirmed 07/06/22] (unknown) (no (unknown) (unknown) Consent obtained (units (unknown) date) for unknown) tele-therapy assistant care: Yes (unknown) (no (unknown) (unknown) Creatinine 0.79 (units (unknown) date) unknown) (unknown) (no (unknown) (unknown) Creatinine (units (unk nown) date) unknown) (unknown) (no (unknown) (unknown) Critical Care (units ( unknown) date) time: unknown) (unknown) (no (unknown) (unknown) Current (units (unkno wn) date) Medications unknown) (unknown) (no (unknown) (unknown) : 1975 (units (unknown) date) Acct:[id number] unknown) (unknown) (no (unknown) (unknown) Date of Service: (units (unknown) date) 07/05/22 unknown) (unknown) (no (unknown) (unknown) Deep Vein (units (unkn own) date) Thrombosis/Pulmona unknown) ry Embolism Present on Admission: No (unknown) (no (unknown) (unknown) Diphenhydramine (units (unknown) date) 50 Mg/Ml Vial IV unknown) 50 mg (unknown) (no (unknown) (unknown) Diphenhydramine (units (unknown) date) HCl 50 mg 07/06/22 unknown) 08:00 07/07/22 03:01 (unknown) (no (unknown) (unknown) Eos # (Auto) 0 (units (unknown) date) unknown) (unknown) (no (unknown) (unknown) Eos # (Auto) (units (u nknown) date) unknown) (unknown) (no (unknown) (unknown) Eos % (Auto) 0.3 (units (unknown) date) L unknown) (unknown) (no (unknown) (unknown) Eos % (Auto) (units (u nknown) date) unknown) (unknown) (no (unknown) (unknown) Estimated GFR > (units (unknown) date) 60 unknown) (unknown) (no (unknown) (unknown) Estimated GFR (units ( unknown) date) unknown) (unknown) (no (unknown) (unknown) Exam Narrative: (units (unknown) date) unknown) (unknown) (no (unknown) (unknown) Exam (units (o wn) date) unknown) (unknown) (no (unknown) (unknown) Exhaled (units (o wn) date) unknown) (unknown) (no (unknown) (unknown) Famotidine 20 (units ( unknown) date) Mg/2 Ml Vial IV 20 unknown) mg (unknown) (no (unknown) (unknown) Famotidine 20 mg (units (unknown) date) 07/06/22 10:30 unknown) 07/06/22 20:18 (unknown) (no (unknown) (unknown) FiO2 30 (units (o wn) date) unknown) (unknown) (no (unknown) (unknown) FiO2 (units (o wn) date) unknown) (unknown) (no (unknown) (unknown) Fraction of (units (un known) date) Inspired Oxygen unknown) 0.30 0.30 (unknown) (no (unknown) (unknown) Fraction of (units (un known) date) Inspired Oxygen unknown) 0.30 (unknown) (no (unknown) (unknown) Fraction of (units (un known) date) Inspired Oxygen unknown) (unknown) (no (unknown) (unknown) Generic Name Dose (units (unknown) date) Route Start Last unknown) Admin (unknown) (no (unknown) (unknown) Globulin 3.1 (units (u nknown) date) unknown) (unknown) (no (unknown) (unknown) Globulin (units (unkno wn) date) unknown) (unknown) (no (unknown) (unknown) Glucose 155 H (units ( unknown) date) unknown) (unknown) (no (unknown) (unknown) Glucose (units (o wn) date) unknown) (unknown) (no (unknown) (unknown) Hct 37.7 (units (unkno wn) date) unknown) (unknown) (no (unknown) (unknown) Hct (units (unkno wn) date) unknown) (unknown) (no (unknown) (unknown) Heparin Drip IV (units (unknown) date) 12.71 units/kg/hr unknown) (unknown) (no (unknown) (unknown) Heparin (units (unkno wn) date) Sodium/Dextrose unknown) 25,000 unit in 500 mls @ 17.28 mls/hr 07/06/22 23:00 (unknown) (no (unknown) (unknown) Hgb 12.5 (units (unkno wn) date) unknown) (unknown) (no (unknown) (unknown) Hgb (units (unkno wn) date) unknown) (unknown) (no (unknown) (unknown) Home Medications (units (unknown) date) unknown) (unknown) (no (unknown) (unknown) I spent a total (units (unknown) date) of [] minutes of unknown) critical care time on this patient's care (unknown) (no (unknown) (unknown) I:E Ratio 1:3.7 (units (unknown) date) unknown) (unknown) (no (unknown) (unknown) IF CAMERA (units (unkn own) date) ACTIVATED, patient unknown) seen via real-time interactive audiovisual (unknown) (no (unknown) (unknown) Inspiratory Phase (units (unknown) date) Time 0.8 unknown) (unknown) (no (unknown) (unknown) Insulin Human (units ( unknown) date) Lispro 0 unit unknown) 07/06/22 07:45 07/06/22 21:33 (unknown) (no (unknown) (unknown) Insulin Lispro (units (unknown) date) 100 Unit/Ml 3ml unknown) Vial SUBCUT Not Given (unknown) (no (unknown) (unknown) Interval history: (units (unknown) date) unknown) (unknown) (no (unknown) (unknown) [facility] (units (unknown) date) [address] [place] [address] unknown) [place] [address] (unknown) (no (unknown) (unknown) Laboratory (units (unk nown) date) Results - last 24 unknown) hr (unknown) (no (unknown) (unknown) Labs (units (unkno wn) date) unknown) (unknown) (no (unknown) (unknown) Labs: (units (unkno wn) date) unknown) (unknown) (no (unknown) (unknown) Lymph # (Auto) (units (unknown) date) 1100 unknown) (unknown) (no (unknown) (unknown) Lymph # (Auto) (units (unknown) date) unknown) (unknown) (no (unknown) (unknown) Lymph % (Auto) (units (unknown) date) 11.0 L unknown) (unknown) (no (unknown) (unknown) Lymph % (Auto) (units (unknown) date) unknown) (unknown) (no (unknown) (unknown) MCH 31.2 (units (unkno wn) date) unknown) (unknown) (no (unknown) (unknown) MCH (units (unkno wn) date) unknown) (unknown) (no (unknown) (unknown) MCHC 33.1 (units (unkn own) date) unknown) (unknown) (no (unknown) (unknown) MCHC (units (unkno wn) date) unknown) (unknown) (no (unknown) (unknown) MCV 94.4 (units (unkno wn) date) unknown) (unknown) (no (unknown) (unknown) MCV (units (unkno wn) date) unknown) (unknown) (no (unknown) (unknown) Medications: (units (u nknown) date) unknown) (unknown) (no (unknown) (unknown) [place] # (Auto) 700 (units (unknown) date) unknown) (unknown) (no (unknown) (unknown) [place] # (Auto) (units ( unknown) date) unknown) (unknown) (no (unknown) (unknown) [place] % (Auto) 6.5 (units (unknown) date) unknown) (unknown) (no (unknown) (unknown) [place] % (Auto) (units ( unknown) date) unknown) (unknown) (no (unknown) (unknown) NSTEMI (units (unkno wn) date) unknown) (unknown) (no (unknown) (unknown) Narrative (units (unkn own) date) unknown) (unknown) (no (unknown) (unknown) Neut # (Auto) (units ( unknown) date) 8500 H unknown) (unknown) (no (unknown) (unknown) Neut # (Auto) (units ( unknown) date) unknown) (unknown) (no (unknown) (unknown) Neut % (Auto) (units ( unknown) date) 81.9 H unknown) (unknown) (no (unknown) (unknown) Neut % (Auto) (units ( unknown) date) unknown) (unknown) (no (unknown) (unknown) Objective (units (unkn own) date) unknown) (unknown) (no (unknown) (unknown) Other (units (unkno wn) date) 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/roles 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, hospitalist (unknown) (no (unknown) (unknown) Oxygen Delivery (units (unknown) date) Method Mechanical unknown) (unknown) (no (unknown) (unknown) Oxygen Delivery (units (unknown) date) Method Room Air unknown) (unknown) (no (unknown) (unknown) Oxygen Delivery (units (unknown) date) Method unknown) (unknown) (no (unknown) (unknown) Parameters: (units (un known) date) unknown) (unknown) (no (unknown) (unknown) Patient Location: (units (unknown) date) ICU unknown) (unknown) (no (unknown) (unknown) Patient Position (units (unknown) date) HOB >= 30 degrees unknown) (unknown) (no (unknown) (unknown) Patient Summary: (units (unknown) date) 46 yo W with PMH unknown) of angioedema, marijuana use and cocaine use (unknown) (no (unknown) (unknown) Patient seen (units (u nknown) date) through 2 way unknown) audio visual system. She is resting and breathing (unknown) (no (unknown) (unknown) Patient: (units (unkno wn) date) Dameon Caputo MR#: unknown) [id number] (unknown) (no (unknown) (unknown) Plan (units (unkno wn) date) unknown) (unknown) (no (unknown) (unknown) Plt Count 229 (units ( unknown) date) unknown) (unknown) (no (unknown) (unknown) Plt Count (units (unkn own) date) unknown) (unknown) (no (unknown) (unknown) Polysubstance (units ( unknown) date) abuse including unknown) cocaine (unknown) (no (unknown) (unknown) Positive End (units (u nknown) date) Expiratory 5 unknown) (unknown) (no (unknown) (unknown) Potassium 4.8 (units ( unknown) date) unknown) (unknown) (no (unknown) (unknown) Potassium (units (unkn own) date) unknown) (unknown) (no (unknown) (unknown) Precedex IV 0 (units ( unknown) date) mcg/kg/hr unknown) (unknown) (no (unknown) (unknown) Pressure (units (unkno wn) date) unknown) (unknown) (no (unknown) (unknown) Protocol (units (unkno wn) date) unknown) (unknown) (no (unknown) (unknown) Provider location (units (unknown) date) (State): [place] unknown) (unknown) (no (unknown) (unknown) Provider: (units (unkn own) date) Maciej Hernandez MD unknown) (unknown) (no (unknown) (unknown) Pulse Oximetry (units (unknown) date) 100 100 95 unknown) (unknown) (no (unknown) (unknown) Pulse Oximetry (units (unknown) date) 100 98 unknown) (unknown) (no (unknown) (unknown) Pulse Oximetry 99 (units (unknown) date) unknown) (unknown) (no (unknown) (unknown) Pulse Oximetry (units (unknown) date) unknown) (unknown) (no (unknown) (unknown) Pulse Rate 54 L (units (unknown) date) 54 L unknown) (unknown) (no (unknown) (unknown) Pulse Rate 55 L (units (unknown) date) 50 L unknown) (unknown) (no (unknown) (unknown) Pulse Rate 60 (units ( unknown) date) unknown) (unknown) (no (unknown) (unknown) Pulse Rate (units (unk nown) date) unknown) (unknown) (no (unknown) (unknown) Q6H KIRIT (units (unkno wn) date) Administration unknown) (unknown) (no (unknown) (unknown) Q6H KIRIT (units (unkno wn) date) unknown) (unknown) (no (unknown) (unknown) Quality TeleICU (units (unknown) date) unknown) (unknown) (no (unknown) (unknown) RBC 4.00 (units (unkno wn) date) unknown) (unknown) (no (unknown) (unknown) RBC (units (unkno wn) date) unknown) (unknown) (no (unknown) (unknown) RDW 13.2 (units (unkno wn) date) unknown) (unknown) (no (unknown) (unknown) RDW (units (unkno wn) date) unknown) (unknown) (no (unknown) (unknown) RT Vent Frequency (units (unknown) date) 16 unknown) (unknown) (no (unknown) (unknown) Recent events: (units (unknown) date) unknown) (unknown) (no (unknown) (unknown) 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 (unknown) (no (unknown) (unknown) Respiratory Rate (units (unknown) date) 16 16 unknown) (unknown) (no (unknown) (unknown) Respiratory Rate (units (unknown) date) 17 16 unknown) (unknown) (no (unknown) (unknown) Respiratory Rate (units (unknown) date) 20 20 unknown) (unknown) (no (unknown) (unknown) Respiratory Rate (units (unknown) date) 21 unknown) (unknown) (no (unknown) (unknown) Result Diagrams: (units (unknown) date) unknown) (unknown) (no (unknown) (unknown) Signed By: (units (unk nown) date) unknown) (unknown) (no (unknown) (unknown) Sodium 137 (units (unk nown) date) unknown) (unknown) (no (unknown) (unknown) Sodium (units (unkno wn) date) unknown) (unknown) (no (unknown) (unknown) Subjective (units (unk nown) date) unknown) (unknown) (no (unknown) (unknown) TITRATE KIRIT 0 (units ( unknown) date) mls/hr unknown) (unknown) (no (unknown) (unknown) Teleintensivist (units (unknown) date) Progress Note unknown) (unknown) (no (unknown) (unknown) Temperature 97.2 (units (unknown) date) F L unknown) (unknown) (no (unknown) (unknown) Temperature 98.2 (units (unknown) date) F unknown) (unknown) (no (unknown) (unknown) Temperature (units (un known) date) unknown) (unknown) (no (unknown) (unknown) Time Spent With (units (unknown) date) Patient unknown) (unknown) (no (unknown) (unknown) Titration (units (unkn own) date) unknown) (unknown) (no (unknown) (unknown) Total Bilirubin (units (unknown) date) 0.5 unknown) (unknown) (no (unknown) (unknown) Total Bilirubin (units (unknown) date) unknown) (unknown) (no (unknown) (unknown) Total Creatine (units (unknown) date) Kinase 244 H unknown) (unknown) (no (unknown) (unknown) Total Creatine (units (unknown) date) Kinase 258 H unknown) (unknown) (no (unknown) (unknown) Total Creatine (units (unknown) date) Kinase 730 H D unknown) (unknown) (no (unknown) (unknown) Total Protein 6.6 (units (unknown) date) unknown) (unknown) (no (unknown) (unknown) Total Protein (units ( unknown) date) unknown) (unknown) (no (unknown) (unknown) Trade Name Freq (units (unknown) date) PRN Reason Stop unknown) Dose Admin (unknown) (no (unknown) (unknown) Troponin I 4.630 (units (unknown) date) H* unknown) (unknown) (no (unknown) (unknown) Troponin I 5.560 (units (unknown) date) H* unknown) (unknown) (no (unknown) (unknown) Troponin I 6.810 (units (unknown) date) H* unknown) (unknown) (no (unknown) (unknown) VTE (units (unkno wn) date) unknown) (unknown) (no (unknown) (unknown) Ventilation (units (un known) date) unknown) (unknown) (no (unknown) (unknown) Ventilator (units (unk nown) date) Settings unknown) (unknown) (no (unknown) (unknown) Ventilator Tidal (units (unknown) date) Volume 460 unknown) (unknown) (no (unknown) (unknown) Ventilator (units (unk nown) date) unknown) (unknown) (no (unknown) (unknown) Visit Medications (units (unknown) date) (administered) unknown) (unknown) (no (unknown) (unknown) Vital Signs (units (un known) date) unknown) (unknown) (no (unknown) (unknown) Vt/kg IBW 8 (units (un known) date) unknown) (unknown) (no (unknown) (unknown) WBC 10.3 D (units (unk nown) date) unknown) (unknown) (no (unknown) (unknown) WBC (units (unkno wn) date) unknown) (unknown) (no (unknown) (unknown) [Embedded Image (units (unknown) date) Not Available] unknown) (unknown) (no (unknown) (unknown) akinesis) (units (unkn own) date) unknown) (unknown) (no (unknown) (unknown) benadrul, and (units ( unknown) date) famotidine for unknown) angioedema. (unknown) (no (unknown) (unknown) bupropion HCl 100 (units (unknown) date) mg tablet,12 hr unknown) sustained-release 100 mg PO DAILY #90 ea (unknown) (no (unknown) (unknown) comfortably on (units (unknown) date) room air unknown) (unknown) (no (unknown) (unknown) communication: (units (unknown) date) Camera activated unknown) (unknown) (no (unknown) (unknown) dexmedeTOMIDine (units (unknown) date) in 0.9 % NaCL 400 unknown) mcg in 100 mls @ 3.6 mls/hr 07/06/22 13:45 (unknown) (no (unknown) (unknown) failure requiring (units (unknown) date) intubation in ER. unknown) Pt. started on Epi drip, decadron, (unknown) (no (unknown) (unknown) potassium (units (unkn own) date) chloride 20 mEq unknown) tablet,extended release 40 meq PO DAILY #90 tabs (unknown) (no (unknown) (unknown) spironolactone 25 (units (unknown) date) mg tablet 25 mg PO unknown) DAILY #90 tabs 04/14/22 [Rx Confirmed (unknown) (no (unknown) (unknown) started for (units (un known) date) NSTEMI. 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 (unknown) (no (unknown) (unknown) who was admitted (units (unknown) date) 07/05/22 with unknown) sudden tongue swelling and acute respiratory Result panel 706 (unknown) (no date) (unknown) (unknown) < 0.5 mg/dl (unkn own) Result panel 707 (unknown) (no date) (unknown) (unknown) 706 u/l (unkn own) Result panel 708 (unknown) (no (unknown) (unknown) (no value) (units (unk nown) date) unknown) (unknown) (no (unknown) (unknown) (past 8 hours): (units (unknown) date) unknown) (unknown) (no (unknown) (unknown) -Patient (units (unkno wn) date) extubated at 2 am unknown) this morning (unknown) (no (unknown) (unknown) -Patient is (units (un known) date) hemodynamically unknown) stable off Epi drip (unknown) (no (unknown) (unknown) -awaiting (units (unkn own) date) transfer to unknown) another hospital for coronary angiogram (unknown) (no (unknown) (unknown) -heparin drip (units ( unknown) date) unknown) (unknown) (no (unknown) (unknown) -per nurse (units (unk nown) date) patient's tongue unknown) swelling has improved (unknown) (no (unknown) (unknown) -she is currently (units (unknown) date) 2 L nc unknown) (unknown) (no (unknown) (unknown) 0.2 MCG/KG/HR (units ( unknown) date) unknown) (unknown) (no (unknown) (unknown) 00:00 07/07/22 (units (unknown) date) unknown) (unknown) (no (unknown) (unknown) 01:00 07/07/22 (units (unknown) date) unknown) (unknown) (no (unknown) (unknown) 01:20 01:20 01:20 (units (unknown) date) unknown) (unknown) (no (unknown) (unknown) 02:00 07/07/22 (units (unknown) date) unknown) (unknown) (no (unknown) (unknown) 02:00 (units (unkno wn) date) unknown) (unknown) (no (unknown) (unknown) 03:30 (units (unkno wn) date) unknown) (unknown) (no (unknown) (unknown) 04:00 07/07/22 (units (unknown) date) unknown) (unknown) (no (unknown) (unknown) 05:00 (units (unkno wn) date) unknown) (unknown) (no (unknown) (unknown) 05:45 05:45 (units (un known) date) unknown) (unknown) (no (unknown) (unknown) 06:00 (units (unkno wn) date) unknown) (unknown) (no (unknown) (unknown) 04/14/22 [Rx (units (u nknown) date) Confirmed unknown) 07/06/22] (unknown) (no (unknown) (unknown) 07/06/22 07/06/22 (units (unknown) date) 07/06/22 unknown) (unknown) (no (unknown) (unknown) 07/06/22] (units (unkn own) date) unknown) (unknown) (no (unknown) (unknown) 07/06: (units (un known) date) increased to > 6, unknown) patient taken off Epi drip and heparin drip (unknown) (no (unknown) (unknown) 07/07/22 01:20 (units (unknown) date) unknown) (unknown) (no (unknown) (unknown) 07/07/22 02:00 (units (unknown) date) unknown) (unknown) (no (unknown) (unknown) 07/07/22 06:31 (units (unknown) date) unknown) (unknown) (no (unknown) (unknown) 07/07/22 07/07/22 (units (unknown) date) 07/07/22 unknown) (unknown) (no (unknown) (unknown) 07/07/22 07/07/22 (units (unknown) date) unknown) (unknown) (no (unknown) (unknown) 07/07/22 (units (unkno wn) date) unknown) (unknown) (no (unknown) (unknown) 12 UNITS/KG/HR (units (unknown) date) unknown) (unknown) (no (unknown) (unknown) 15:19 21:30 23:10 (units (unknown) date) unknown) (unknown) (no (unknown) (unknown) [id number] (units (unkno wn) date) unknown) (unknown) (no (unknown) (unknown) ABG Base Excess (units (unknown) date) -3.0 L unknown) (unknown) (no (unknown) (unknown) ABG Base Excess (units (unknown) date) unknown) (unknown) (no (unknown) (unknown) ABG HCO3 23 (units (un known) date) unknown) (unknown) (no (unknown) (unknown) ABG HCO3 (units (unkno wn) date) unknown) (unknown) (no (unknown) (unknown) ABG O2 Saturation (units (unknown) date) 98 unknown) (unknown) (no (unknown) (unknown) ABG O2 Saturation (units (unknown) date) unknown) (unknown) (no (unknown) (unknown) ABG Total CO2 24 (units (unknown) date) unknown) (unknown) (no (unknown) (unknown) ABG Total CO2 (units ( unknown) date) unknown) (unknown) (no (unknown) (unknown) ABG pCO2 40.7 (units ( unknown) date) unknown) (unknown) (no (unknown) (unknown) ABG pCO2 (units (unkno wn) date) unknown) (unknown) (no (unknown) (unknown) ABG pH 7.36 (units (un known) date) unknown) (unknown) (no (unknown) (unknown) ABG pH (units (unkno wn) date) unknown) (unknown) (no (unknown) (unknown) ABG pO2 105 H (units ( unknown) date) unknown) (unknown) (no (unknown) (unknown) ABG pO2 (units (unkno wn) date) unknown) (unknown) (no (unknown) (unknown) ACHS KIRIT (units (unkno wn) date) unknown) (unknown) (no (unknown) (unknown) ALT 32 (units (unkno wn) date) unknown) (unknown) (no (unknown) (unknown) ALT (units (unkno wn) date) unknown) (unknown) (no (unknown) (unknown) APTT 26 (units (unkno wn) date) unknown) (unknown) (no (unknown) (unknown) APTT 42 H D (units (un known) date) unknown) (unknown) (no (unknown) (unknown) APTT (units (unkno wn) date) unknown) (unknown) (no (unknown) (unknown) AST 62 H (units (unkno wn) date) unknown) (unknown) (no (unknown) (unknown) AST (units (unkno wn) date) unknown) (unknown) (no (unknown) (unknown) Acute respiratory (units (unknown) date) failure unknown) (unknown) (no (unknown) (unknown) Age/Sex: 46 / F (units (unknown) date) unknown) (unknown) (no (unknown) (unknown) Albumin 3.5 (units (un known) date) unknown) (unknown) (no (unknown) (unknown) Albumin (units (unkno wn) date) unknown) (unknown) (no (unknown) (unknown) Albumin/Globulin (units (unknown) date) Ratio 1.1 unknown) (unknown) (no (unknown) (unknown) Albumin/Globulin (units (unknown) date) Ratio unknown) (unknown) (no (unknown) (unknown) Alkaline (units (unkno wn) date) Phosphatase 47 unknown) (unknown) (no (unknown) (unknown) Alkaline (units (unkno wn) date) Phosphatase unknown) (unknown) (no (unknown) (unknown) Angioedema- sig (units (unknown) date) improved unknown) (unknown) (no (unknown) (unknown) Assessment + Plan (units (unknown) date) narrative: unknown) (unknown) (no (unknown) (unknown) Assessment + Plan (units (unknown) date) unknown) (unknown) (no (unknown) (unknown) Assessment (units (unk nown) date) unknown) (unknown) (no (unknown) (unknown) BID KIRIT (units (unkno wn) date) Administration unknown) (unknown) (no (unknown) (unknown) BUN 16 (units (unkno wn) date) unknown) (unknown) (no (unknown) (unknown) BUN (units (unkno wn) date) unknown) (unknown) (no (unknown) (unknown) BUN/Creatinine (units (unknown) date) Ratio 20.3 unknown) (unknown) (no (unknown) (unknown) BUN/Creatinine (units [...] (unknown) (unknown) Blood Pressure (units (unknown) date) 105/70 124/89 unknown) (unknown) (no (unknown) (unknown) Blood Pressure (units (unknown) date) 111/82 101/77 unknown) (unknown) (no (unknown) (unknown) Blood Pressure (units (unknown) date) 98/69 unknown) (unknown) (no (unknown) (unknown) Blood Pressure (units (unknown) date) unknown) (unknown) (no (unknown) (unknown) CK-MB (CK-2) (units (u nknown) date) 11.10 H unknown) (unknown) (no (unknown) (unknown) CK-MB (CK-2) (units (u nknown) date) 11.30 H unknown) (unknown) (no (unknown) (unknown) CK-MB (CK-2) (units (u nknown) date) 14.60 H unknown) (unknown) (no (unknown) (unknown) CK-MB (CK-2) Rel (units (unknown) date) Index 1.5 unknown) (unknown) (no (unknown) (unknown) CK-MB (CK-2) Rel (units (unknown) date) Index 4.6 unknown) (unknown) (no (unknown) (unknown) CK-MB (CK-2) Rel (units (unknown) date) Index 5.7 H unknown) (unknown) (no (unknown) (unknown) CONT KIRIT 18.3 (units ( unknown) date) mls/hr unknown) (unknown) (no (unknown) (unknown) Calcium 8.5 (units (un known) date) unknown) (unknown) (no (unknown) (unknown) Calcium (units (unkno wn) date) unknown) (unknown) (no (unknown) (unknown) Carbon Dioxide 27 (units (unknown) date) unknown) (unknown) (no (unknown) (unknown) Carbon Dioxide (units (unknown) date) unknown) (unknown) (no (unknown) (unknown) Chlorhexidine (units ( unknown) date) Gluconate 15 Ml unknown) Cup PO Not Given (unknown) (no (unknown) (unknown) Chlorhexidine (units ( unknown) date) Gluconate 15 ml unknown) 07/06/22 08:00 07/07/22 02:49 (unknown) (no (unknown) (unknown) Chloride 103 (units (u nknown) date) unknown) (unknown) (no (unknown) (unknown) Chloride (units (unkno wn) date) unknown) (unknown) (no (unknown) (unknown) Compazine 25 mg (units (unknown) date) WV PRN PRN Nausea unknown) 07/06/22 [History Confirmed 07/06/22] (unknown) (no (unknown) (unknown) Consent obtained (units (unknown) date) for unknown) tele-therapy assistant care: Yes (unknown) (no (unknown) (unknown) Creatinine 0.79 (units (unknown) date) unknown) (unknown) (no (unknown) (unknown) Creatinine (units (unk nown) date) unknown) (unknown) (no (unknown) (unknown) Critical Care (units ( unknown) date) time: unknown) (unknown) (no (unknown) (unknown) Current (units (unkno wn) date) Medications unknown) (unknown) (no (unknown) (unknown) : 1975 (units (unknown) date) Acct:[id number] unknown) (unknown) (no (unknown) (unknown) Date of Service: (units (unknown) date) 07/05/22 unknown) (unknown) (no (unknown) (unknown) Deep Vein (units (unkn own) date) Thrombosis/Pulmona unknown) ry Embolism Present on Admission: No (unknown) (no (unknown) (unknown) Diphenhydramine (units (unknown) date) 50 Mg/Ml Vial IV unknown) 50 mg (unknown) (no (unknown) (unknown) Diphenhydramine (units (unknown) date) HCl 50 mg 07/06/22 unknown) 08:00 07/07/22 03:01 (unknown) (no (unknown) (unknown) Eos # (Auto) 0 (units (unknown) date) unknown) (unknown) (no (unknown) (unknown) Eos # (Auto) (units (u nknown) date) unknown) (unknown) (no (unknown) (unknown) Eos % (Auto) 0.3 (units (unknown) date) L unknown) (unknown) (no (unknown) (unknown) Eos % (Auto) (units (u nknown) date) unknown) (unknown) (no (unknown) (unknown) Estimated GFR > (units (unknown) date) 60 unknown) (unknown) (no (unknown) (unknown) Estimated GFR (units ( unknown) date) unknown) (unknown) (no (unknown) (unknown) Exam Narrative: (units (unknown) date) unknown) (unknown) (no (unknown) (unknown) Exam (units (unkno wn) date) unknown) (unknown) (no (unknown) (unknown) Exhaled (units (unkno wn) date) unknown) (unknown) (no (unknown) (unknown) Famotidine 20 (units ( unknown) date) Mg/2 Ml Vial IV 20 unknown) mg (unknown) (no (unknown) (unknown) Famotidine 20 mg (units (unknown) date) 07/06/22 10:30 unknown) 07/06/22 20:18 (unknown) (no (unknown) (unknown) FiO2 30 (units (unkno wn) date) unknown) (unknown) (no (unknown) (unknown) FiO2 (units (unkno wn) date) unknown) (unknown) (no (unknown) (unknown) Fraction of (units (un known) date) Inspired Oxygen unknown) 0.30 0.30 (unknown) (no (unknown) (unknown) Fraction of (units (un known) date) Inspired Oxygen unknown) 0.30 (unknown) (no (unknown) (unknown) Fraction of (units (un known) date) Inspired Oxygen unknown) (unknown) (no (unknown) (unknown) Generic Name Dose (units (unknown) date) Route Start Last unknown) Admin (unknown) (no (unknown) (unknown) Globulin 3.1 (units (u nknown) date) unknown) (unknown) (no (unknown) (unknown) Globulin (units (unkno wn) date) unknown) (unknown) (no (unknown) (unknown) Glucose 155 H (units ( unknown) date) unknown) (unknown) (no (unknown) (unknown) Glucose (units (unkno wn) date) unknown) (unknown) (no (unknown) (unknown) Hct 37.7 (units (unkno wn) date) unknown) (unknown) (no (unknown) (unknown) Hct (units (unkno wn) date) unknown) (unknown) (no (unknown) (unknown) Heparin Drip IV (units (unknown) date) 12.71 units/kg/hr unknown) (unknown) (no (unknown) (unknown) Heparin (units (unkno wn) date) Sodium/Dextrose unknown) 25,000 unit in 500 mls @ 17.28 mls/hr 07/06/22 23:00 (unknown) (no (unknown) (unknown) Hgb 12.5 (units (unkno wn) date) unknown) (unknown) (no (unknown) (unknown) Hgb (units (unkno wn) date) unknown) (unknown) (no (unknown) (unknown) Home Medications (units (unknown) date) unknown) (unknown) (no (unknown) (unknown) I spent a total (units (unknown) date) of [] minutes of unknown) critical care time on this patient's care (unknown) (no (unknown) (unknown) I:E Ratio 1:3.7 (units (unknown) date) unknown) (unknown) (no (unknown) (unknown) IF CAMERA (units (unkn own) date) ACTIVATED, patient unknown) seen via real-time interactive audiovisual (unknown) (no (unknown) (unknown) Inspiratory Phase (units (unknown) date) Time 0.8 unknown) (unknown) (no (unknown) (unknown) Insulin Human (units ( unknown) date) Lispro 0 unit unknown) 07/06/22 07:45 07/06/22 21:33 (unknown) (no (unknown) (unknown) Insulin Lispro (units (unknown) date) 100 Unit/Ml 3ml unknown) Vial SUBCUT Not Given (unknown) (no (unknown) (unknown) Interval history: (units (unknown) date) unknown) (unknown) (no (unknown) (unknown) [facility] (units (unknown) date) [address] unknown) [place] [address] (unknown) (no (unknown) (unknown) Laboratory (units (unk nown) date) Results - last 24 unknown) hr (unknown) (no (unknown) (unknown) Labs (units (unkno wn) date) unknown) (unknown) (no (unknown) (unknown) Labs: (units (unkno wn) date) unknown) (unknown) (no (unknown) (unknown) Lymph # (Auto) (units (unknown) date) 1100 unknown) (unknown) (no (unknown) (unknown) Lymph # (Auto) (units (unknown) date) unknown) (unknown) (no (unknown) (unknown) Lymph % (Auto) (units (unknown) date) 11.0 L unknown) (unknown) (no (unknown) (unknown) Lymph % (Auto) (units (unknown) date) unknown) (unknown) (no (unknown) (unknown) MCH 31.2 (units (unkno wn) date) unknown) (unknown) (no (unknown) (unknown) MCH (units (unkno wn) date) unknown) (unknown) (no (unknown) (unknown) MCHC 33.1 (units (unkn own) date) unknown) (unknown) (no (unknown) (unknown) MCHC (units (unkno wn) date) unknown) (unknown) (no (unknown) (unknown) MCV 94.4 (units (unkno wn) date) unknown) (unknown) (no (unknown) (unknown) MCV (units (unkno wn) date) unknown) (unknown) (no (unknown) (unknown) Medications: (units (u nknown) date) unknown) (unknown) (no (unknown) (unknown) [place] # (Auto) 700 (units (unknown) date) unknown) (unknown) (no (unknown) (unknown) [place] # (Auto) (units ( unknown) date) unknown) (unknown) (no (unknown) (unknown) [place] % (Auto) 6.5 (units (unknown) date) unknown) (unknown) (no (unknown) (unknown) [place] % (Auto) (units ( unknown) date) unknown) (unknown) (no (unknown) (unknown) NSTEMI (units (unkno wn) date) unknown) (unknown) (no (unknown) (unknown) Narrative (units (unkn own) date) unknown) (unknown) (no (unknown) (unknown) Neut # (Auto) (units ( unknown) date) 8500 H unknown) (unknown) (no (unknown) (unknown) Neut # (Auto) (units ( unknown) date) unknown) (unknown) (no (unknown) (unknown) Neut % (Auto) (units ( unknown) date) 81.9 H unknown) (unknown) (no (unknown) (unknown) Neut % (Auto) (units ( unknown) date) unknown) (unknown) (no (unknown) (unknown) New (units (unkno wn) date) Cardiomyopathy unknown) with EF 30-35, ECHO shows apical akinesis which could be LAD (unknown) (no (unknown) (unknown) Objective (units (unkn own) date) unknown) (unknown) (no (unknown) (unknown) Other (units (unkno wn) date) 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/roles 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, hospitalist (unknown) (no (unknown) (unknown) Oxygen Delivery (units (unknown) date) Method Mechanical unknown) (unknown) (no (unknown) (unknown) Oxygen Delivery (units (unknown) date) Method Room Air unknown) (unknown) (no (unknown) (unknown) Oxygen Delivery (units (unknown) date) Method unknown) (unknown) (no (unknown) (unknown) Parameters: (units (un known) date) unknown) (unknown) (no (unknown) (unknown) Patient Location: (units (unknown) date) ICU unknown) (unknown) (no (unknown) (unknown) Patient Position (units (unknown) date) HOB >= 30 degrees unknown) (unknown) (no (unknown) (unknown) Patient Summary: (units (unknown) date) 46 yo W with PMH unknown) of angioedema, marijuana use and cocaine use (unknown) (no (unknown) (unknown) Patient seen (units (u nknown) date) through 2 way unknown) audio visual system. She is resting and breathing (unknown) (no (unknown) (unknown) Patient: (units (unkno wn) date) Dameon Caputo MR#: unknown) [id number] (unknown) (no (unknown) (unknown) Plan (units (unkno wn) date) unknown) (unknown) (no (unknown) (unknown) Plt Count 229 (units ( unknown) date) unknown) (unknown) (no (unknown) (unknown) Plt Count (units (unkn own) date) unknown) (unknown) (no (unknown) (unknown) Polysubstance (units ( unknown) date) abuse including unknown) cocaine (unknown) (no (unknown) (unknown) Positive End (units (u nknown) date) Expiratory 5 unknown) (unknown) (no (unknown) (unknown) Potassium 4.8 (units ( unknown) date) unknown) (unknown) (no (unknown) (unknown) Potassium (units (unkn own) date) unknown) (unknown) (no (unknown) (unknown) Precedex IV 0 (units ( unknown) date) mcg/kg/hr unknown) (unknown) (no (unknown) (unknown) Pressure (units (unkno wn) date) unknown) (unknown) (no (unknown) (unknown) Protocol (units (unkno wn) date) unknown) (unknown) (no (unknown) (unknown) Provider location (units (unknown) date) (State): [place] unknown) (unknown) (no (unknown) (unknown) Provider: (units (unkn own) date) Maciej Hernandez MD unknown) (unknown) (no (unknown) (unknown) Pulse Oximetry (units (unknown) date) 100 100 95 unknown) (unknown) (no (unknown) (unknown) Pulse Oximetry (units (unknown) date) 100 98 unknown) (unknown) (no (unknown) (unknown) Pulse Oximetry 99 (units (unknown) date) unknown) (unknown) (no (unknown) (unknown) Pulse Oximetry (units (unknown) date) unknown) (unknown) (no (unknown) (unknown) Pulse Rate 54 L (units (unknown) date) 54 L unknown) (unknown) (no (unknown) (unknown) Pulse Rate 55 L (units (unknown) date) 50 L unknown) (unknown) (no (unknown) (unknown) Pulse Rate 60 (units ( unknown) date) unknown) (unknown) (no (unknown) (unknown) Pulse Rate (units (unk nown) date) unknown) (unknown) (no (unknown) (unknown) Q6H KIRIT (units (unkno wn) date) Administration unknown) (unknown) (no (unknown) (unknown) Q6H KIRIT (units (unkno wn) date) unknown) (unknown) (no (unknown) (unknown) Quality TeleICU (units (unknown) date) unknown) (unknown) (no (unknown) (unknown) RBC 4.00 (units (unkno wn) date) unknown) (unknown) (no (unknown) (unknown) RBC (units (unkno wn) date) unknown) (unknown) (no (unknown) (unknown) RDW 13.2 (units (unkno wn) date) unknown) (unknown) (no (unknown) (unknown) RDW (units (unkno wn) date) unknown) (unknown) (no (unknown) (unknown) RT Vent Frequency (units (unknown) date) 16 unknown) (unknown) (no (unknown) (unknown) Recent events: (units (unknown) date) unknown) (unknown) (no (unknown) (unknown) 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 (unknown) (no (unknown) (unknown) Respiratory Rate (units (unknown) date) 16 16 unknown) (unknown) (no (unknown) (unknown) Respiratory Rate (units (unknown) date) 17 16 unknown) (unknown) (no (unknown) (unknown) Respiratory Rate (units (unknown) date) 20 20 unknown) (unknown) (no (unknown) (unknown) Respiratory Rate (units (unknown) date) 21 unknown) (unknown) (no (unknown) (unknown) Result Diagrams: (units (unknown) date) unknown) (unknown) (no (unknown) (unknown) Signed By: (units (unk nown) date) unknown) (unknown) (no (unknown) (unknown) Sodium 137 (units (unk nown) date) unknown) (unknown) (no (unknown) (unknown) Sodium (units (unkno wn) date) unknown) (unknown) (no (unknown) (unknown) Subjective (units (unk nown) date) unknown) (unknown) (no (unknown) (unknown) TITRATE KIRIT 0 (units ( unknown) date) mls/hr unknown) (unknown) (no (unknown) (unknown) Teleintensivist (units (unknown) date) Progress Note unknown) (unknown) (no (unknown) (unknown) Temperature 97.2 (units (unknown) date) F L unknown) (unknown) (no (unknown) (unknown) Temperature 98.2 (units (unknown) date) F unknown) (unknown) (no (unknown) (unknown) Temperature (units (un known) date) unknown) (unknown) (no (unknown) (unknown) Time Spent With (units (unknown) date) Patient unknown) (unknown) (no (unknown) (unknown) Titration (units (unkn own) date) unknown) (unknown) (no (unknown) (unknown) Total Bilirubin (units (unknown) date) 0.5 unknown) (unknown) (no (unknown) (unknown) Total Bilirubin (units (unknown) date) unknown) (unknown) (no (unknown) (unknown) Total Creatine (units (unknown) date) Kinase 244 H unknown) (unknown) (no (unknown) (unknown) Total Creatine (units (unknown) date) Kinase 258 H unknown) (unknown) (no (unknown) (unknown) Total Creatine (units (unknown) date) Kinase 730 H D unknown) (unknown) (no (unknown) (unknown) Total Protein 6.6 (units (unknown) date) unknown) (unknown) (no (unknown) (unknown) Total Protein (units ( unknown) date) unknown) (unknown) (no (unknown) (unknown) Trade Name Freq (units (unknown) date) PRN Reason Stop unknown) Dose Admin (unknown) (no (unknown) (unknown) Troponin I 4.630 (units (unknown) date) H* unknown) (unknown) (no (unknown) (unknown) Troponin I 5.560 (units (unknown) date) H* unknown) (unknown) (no (unknown) (unknown) Troponin I 6.810 (units (unknown) date) H* unknown) (unknown) (no (unknown) (unknown) VTE (units (unkno wn) date) unknown) (unknown) (no (unknown) (unknown) Ventilation (units (un known) date) unknown) (unknown) (no (unknown) (unknown) Ventilator (units (unk nown) date) Settings unknown) (unknown) (no (unknown) (unknown) Ventilator Tidal (units (unknown) date) Volume 460 unknown) (unknown) (no (unknown) (unknown) Ventilator (units (unk nown) date) unknown) (unknown) (no (unknown) (unknown) Visit Medications (units (unknown) date) (administered) unknown) (unknown) (no (unknown) (unknown) Vital Signs (units (un known) date) unknown) (unknown) (no (unknown) (unknown) Vt/kg IBW 8 (units (un known) date) unknown) (unknown) (no (unknown) (unknown) WBC 10.3 D (units (unk nown) date) unknown) (unknown) (no (unknown) (unknown) WBC (units (unkno wn) date) unknown) (unknown) (no (unknown) (unknown) [Embedded Image (units (unknown) date) Not Available] unknown) (unknown) (no (unknown) (unknown) akinesis) (units (unkn own) date) unknown) (unknown) (no (unknown) (unknown) benadryl, and (units ( unknown) date) famotidine for unknown) angioedema. 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 unknown) Pt. started on Epi drip, decardron, (unknown) (no (unknown) (unknown) potassium (units (unkn own) date) chloride 20 mEq unknown) tablet,extended release 40 meq PO DAILY #90 tabs (unknown) (no (unknown) (unknown) spironolactone 25 (units (unknown) date) mg tablet 25 mg PO unknown) DAILY #90 tabs 04/14/22 [Rx Confirmed (unknown) (no (unknown) (unknown) started for (units (un known) date) NSTEMI. 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 (unknown) (no (unknown) (unknown) who was admitted (units (unknown) date) 07/05/22 with unknown) sudden tongue swelling and acute respiratory Result panel 709 (unknown) (no date) (unknown) (unknown) 1.4 % (unkn own) (unknown) (no date) (unknown) (unknown) 706 u/l (unkn own) (unknown) (no date) (unknown) (unknown) 9.65 ng/ml (unkn own) Result panel 710 (unknown) (no date) (unknown) (unknown) 4 mm/hr (unkn own) Result panel 711 (unknown) (no (unknown) (unknown) (no value) (units (unk nown) date) unknown) (unknown) (no (unknown) (unknown) (past 8 hours): (units (unknown) date) unknown) (unknown) (no (unknown) (unknown) -Patient (units (unkno wn) date) extubated at 2 am unknown) this morning (unknown) (no (unknown) (unknown) -Patient is (units (un known) date) hemodynamically unknown) stable off Epi drip (unknown) (no (unknown) (unknown) -aspirin and (units (u nknown) date) statin unknown) (unknown) (no (unknown) (unknown) -awaiting (units (unkn own) date) transfer to unknown) another hospital for coronary angiogram (unknown) (no (unknown) (unknown) -continue (units (unkn own) date) famotidine and prn unknown) benadryl (unknown) (no (unknown) (unknown) -heparin drip (units ( unknown) date) unknown) (unknown) (no (unknown) (unknown) -ideally would (units (unknown) date) like to start unknown) coreg especially given NSTEMI but patient's HR in (unknown) (no (unknown) (unknown) -ieallywould like (units (unknown) date) to start an Vick-I unknown) for cardiomyopathy but given history of (unknown) (no (unknown) (unknown) -monitor for any (units (unknown) date) signs of recurrent unknown) worsening angioedema (unknown) (no (unknown) (unknown) -off epi and (units (u nknown) date) decadron unknown) (unknown) (no (unknown) (unknown) -per nurse (units (unk nown) date) patient's tongue unknown) swelling has improved (unknown) (no (unknown) (unknown) -she is currently (units (unknown) date) 2 L nc unknown) (unknown) (no (unknown) (unknown) -will start (units (un known) date) hydralazine for BP unknown) control for now (unknown) (no (unknown) (unknown) 0.2 MCG/KG/HR (units ( unknown) date) unknown) (unknown) (no (unknown) (unknown) 00:00 07/07/22 (units (unknown) date) unknown) (unknown) (no (unknown) (unknown) 01:00 07/07/22 (units (unknown) date) unknown) (unknown) (no (unknown) (unknown) 01:20 01:20 01:20 (units (unknown) date) unknown) (unknown) (no (unknown) (unknown) 02:00 07/07/22 (units (unknown) date) unknown) (unknown) (no (unknown) (unknown) 02:00 (units (unkno wn) date) unknown) (unknown) (no (unknown) (unknown) 03:30 (units (unkno wn) date) unknown) (unknown) (no (unknown) (unknown) 04:00 07/07/22 (units (unknown) date) unknown) (unknown) (no (unknown) (unknown) 05:00 (units (unkno wn) date) unknown) (unknown) (no (unknown) (unknown) 05:45 05:45 (units (un known) date) unknown) (unknown) (no (unknown) (unknown) 06:00 (units (unkno wn) date) unknown) (unknown) (no (unknown) (unknown) 04/14/22 [Rx (units (u nknown) date) Confirmed unknown) 07/06/22] (unknown) (no (unknown) (unknown) 07/06/22 07/06/22 (units (unknown) date) 07/06/22 unknown) (unknown) (no (unknown) (unknown) 07/06/22] (units (unkn own) date) unknown) (unknown) (no (unknown) (unknown) 07/06: (units (un known) date) increased to > 6, unknown) patient taken off Epi drip and heparin drip (unknown) (no (unknown) (unknown) 07/07/22 01:20 (units (unknown) date) unknown) (unknown) (no (unknown) (unknown) 07/07/22 02:00 (units (unknown) date) unknown) (unknown) (no (unknown) (unknown) 07/07/22 06:31 (units (unknown) date) unknown) (unknown) (no (unknown) (unknown) 07/07/22 0934 (units ( unknown) date) unknown) (unknown) (no (unknown) (unknown) 07/07/22 07/07/22 (units (unknown) date) 07/07/22 unknown) (unknown) (no (unknown) (unknown) 07/07/22 07/07/22 (units (unknown) date) unknown) (unknown) (no (unknown) (unknown) 07/07/22 (units (unkno wn) date) unknown) (unknown) (no (unknown) (unknown) 12 UNITS/KG/HR (units (unknown) date) unknown) (unknown) (no (unknown) (unknown) 15:19 21:30 23:10 (units (unknown) date) unknown) (unknown) (no (unknown) (unknown) [id number] (units (unkno wn) date) unknown) (unknown) (no (unknown) (unknown) ABG Base Excess (units (unknown) date) -3.0 L unknown) (unknown) (no (unknown) (unknown) ABG Base Excess (units (unknown) date) unknown) (unknown) (no (unknown) (unknown) ABG HCO3 23 (units (un known) date) unknown) (unknown) (no (unknown) (unknown) ABG HCO3 (units (unkno wn) date) unknown) (unknown) (no (unknown) (unknown) ABG O2 Saturation (units (unknown) date) 98 unknown) (unknown) (no (unknown) (unknown) ABG O2 Saturation (units (unknown) date) unknown) (unknown) (no (unknown) (unknown) ABG Total CO2 24 (units (unknown) date) unknown) (unknown) (no (unknown) (unknown) ABG Total CO2 (units ( unknown) date) unknown) (unknown) (no (unknown) (unknown) ABG pCO2 40.7 (units ( unknown) date) unknown) (unknown) (no (unknown) (unknown) ABG pCO2 (units (unkno wn) date) unknown) (unknown) (no (unknown) (unknown) ABG pH 7.36 (units (un known) date) unknown) (unknown) (no (unknown) (unknown) ABG pH (units (unkno wn) date) unknown) (unknown) (no (unknown) (unknown) ABG pO2 105 H (units ( unknown) date) unknown) (unknown) (no (unknown) (unknown) ABG pO2 (units (unkno wn) date) unknown) (unknown) (no (unknown) (unknown) ACHS KIRIT (units (unkno wn) date) unknown) (unknown) (no (unknown) (unknown) ALT 32 (units (unkno wn) date) unknown) (unknown) (no (unknown) (unknown) ALT (units (unkno wn) date) unknown) (unknown) (no (unknown) (unknown) APTT 26 (units (unkno wn) date) unknown) (unknown) (no (unknown) (unknown) APTT 42 H D (units (un known) date) unknown) (unknown) (no (unknown) (unknown) APTT (units (unkno wn) date) unknown) (unknown) (no (unknown) (unknown) AST 62 H (units (unkno wn) date) unknown) (unknown) (no (unknown) (unknown) AST (units (unkno wn) date) unknown) (unknown) (no (unknown) (unknown) Acute respiratory (units (unknown) date) failure-resolved unknown) (unknown) (no (unknown) (unknown) Age/Sex: 46 / F (units (unknown) date) unknown) (unknown) (no (unknown) (unknown) Albumin 3.5 (units (un known) date) unknown) (unknown) (no (unknown) (unknown) Albumin (units (unkno wn) date) unknown) (unknown) (no (unknown) (unknown) Albumin/Globulin (units (unknown) date) Ratio 1.1 unknown) (unknown) (no (unknown) (unknown) Albumin/Globulin (units (unknown) date) Ratio unknown) (unknown) (no (unknown) (unknown) Alkaline (units (unkno wn) date) Phosphatase 47 unknown) (unknown) (no (unknown) (unknown) Alkaline (units (unkno wn) date) Phosphatase unknown) (unknown) (no (unknown) (unknown) Angioedema- sig (units (unknown) date) improved unknown) (unknown) (no (unknown) (unknown) Assessment + Plan (units (unknown) date) narrative: unknown) (unknown) (no (unknown) (unknown) Assessment + Plan (units (unknown) date) unknown) (unknown) (no (unknown) (unknown) Assessment (units (unk nown) date) unknown) (unknown) (no (unknown) (unknown) BID KIRIT (units (unkno wn) date) Administration unknown) (unknown) (no (unknown) (unknown) BUN 16 (units (unkno wn) date) unknown) (unknown) (no (unknown) (unknown) BUN (units (unkno wn) date) unknown) (unknown) (no (unknown) (unknown) BUN/Creatinine (units (unknown) date) Ratio 20.3 unknown) (unknown) (no (unknown) (unknown) BUN/Creatinine (units [...] (unknown) (unknown) Blood Pressure (units (unknown) date) 105/70 124/89 unknown) (unknown) (no (unknown) (unknown) Blood Pressure (units (unknown) date) 111/82 101/77 unknown) (unknown) (no (unknown) (unknown) Blood Pressure (units (unknown) date) 98/69 unknown) (unknown) (no (unknown) (unknown) Blood Pressure (units (unknown) date) unknown) (unknown) (no (unknown) (unknown) CCT spent 50 min (units (unknown) date) unknown) (unknown) (no (unknown) (unknown) CK-MB (CK-2) (units (u nknown) date) 11.10 H unknown) (unknown) (no (unknown) (unknown) CK-MB (CK-2) (units (u nknown) date) 11.30 H unknown) (unknown) (no (unknown) (unknown) CK-MB (CK-2) (units (u nknown) date) 14.60 H unknown) (unknown) (no (unknown) (unknown) CK-MB (CK-2) Rel (units (unknown) date) Index 1.5 unknown) (unknown) (no (unknown) (unknown) CK-MB (CK-2) Rel (units (unknown) date) Index 4.6 unknown) (unknown) (no (unknown) (unknown) CK-MB (CK-2) Rel (units (unknown) date) Index 5.7 H unknown) (unknown) (no (unknown) (unknown) CONT KIRIT 18.3 (units ( unknown) date) mls/hr unknown) (unknown) (no (unknown) (unknown) Calcium 8.5 (units (un known) date) unknown) (unknown) (no (unknown) (unknown) Calcium (units (unkno wn) date) unknown) (unknown) (no (unknown) (unknown) Carbon Dioxide 27 (units (unknown) date) unknown) (unknown) (no (unknown) (unknown) Carbon Dioxide (units (unknown) date) unknown) (unknown) (no (unknown) (unknown) Chlorhexidine (units ( unknown) date) Gluconate 15 Ml unknown) Cup PO Not Given (unknown) (no (unknown) (unknown) Chlorhexidine (units ( unknown) date) Gluconate 15 ml unknown) 07/06/22 08:00 07/07/22 02:49 (unknown) (no (unknown) (unknown) Chloride 103 (units (u nknown) date) unknown) (unknown) (no (unknown) (unknown) Chloride (units (unkno wn) date) unknown) (unknown) (no (unknown) (unknown) Compazine 25 mg (units (unknown) date) WV PRN PRN Nausea unknown) 07/06/22 [History Confirmed 07/06/22] (unknown) (no (unknown) (unknown) Consent obtained (units (unknown) date) for unknown) tele-therapy assistant care: Yes (unknown) (no (unknown) (unknown) Coreg (units (unkno wn) date) unknown) (unknown) (no (unknown) (unknown) Creatinine 0.79 (units (unknown) date) unknown) (unknown) (no (unknown) (unknown) Creatinine (units (unk nown) date) unknown) (unknown) (no (unknown) (unknown) Critical Care (units ( unknown) date) time: unknown) (unknown) (no (unknown) (unknown) Current (units (unkno wn) date) Medications unknown) (unknown) (no (unknown) (unknown) : 1975 (units (unknown) date) Acct:[id number] unknown) (unknown) (no (unknown) (unknown) Date of Service: (units (unknown) date) 07/05/22 unknown) (unknown) (no (unknown) (unknown) Deep Vein (units (unkn own) date) Thrombosis/Pulmona unknown) ry Embolism Present on Admission: No (unknown) (no (unknown) (unknown) Diphenhydramine (units (unknown) date) 50 Mg/Ml Vial IV unknown) 50 mg (unknown) (no (unknown) (unknown) Diphenhydramine (units (unknown) date) HCl 50 mg 07/06/22 unknown) 08:00 07/07/22 03:01 (unknown) (no (unknown) (unknown) Eos # (Auto) 0 (units (unknown) date) unknown) (unknown) (no (unknown) (unknown) Eos # (Auto) (units (u nknown) date) unknown) (unknown) (no (unknown) (unknown) Eos % (Auto) 0.3 (units (unknown) date) L unknown) (unknown) (no (unknown) (unknown) Eos % (Auto) (units (u nknown) date) unknown) (unknown) (no (unknown) (unknown) Estimated GFR > (units (unknown) date) 60 unknown) (unknown) (no (unknown) (unknown) Estimated GFR (units ( unknown) date) unknown) (unknown) (no (unknown) (unknown) Exam Narrative: (units (unknown) date) unknown) (unknown) (no (unknown) (unknown) Exam (units (unkno wn) date) unknown) (unknown) (no (unknown) (unknown) Exhaled (units (unkno wn) date) unknown) (unknown) (no (unknown) (unknown) Famotidine 20 (units ( unknown) date) Mg/2 Ml Vial IV 20 unknown) mg (unknown) (no (unknown) (unknown) Famotidine 20 mg (units (unknown) date) 07/06/22 10:30 unknown) 07/06/22 20:18 (unknown) (no (unknown) (unknown) FiO2 30 (units (unkno wn) date) unknown) (unknown) (no (unknown) (unknown) FiO2 (units (unkno wn) date) unknown) (unknown) (no (unknown) (unknown) Fraction of (units (un known) date) Inspired Oxygen unknown) 0.30 0.30 (unknown) (no (unknown) (unknown) Fraction of (units (un known) date) Inspired Oxygen unknown) 0.30 (unknown) (no (unknown) (unknown) Fraction of (units (un known) date) Inspired Oxygen unknown) (unknown) (no (unknown) (unknown) Generic Name Dose (units (unknown) date) Route Start Last unknown) Admin (unknown) (no (unknown) (unknown) Globulin 3.1 (units (u nknown) date) unknown) (unknown) (no (unknown) (unknown) Globulin (units (unkno wn) date) unknown) (unknown) (no (unknown) (unknown) Glucose 155 H (units ( unknown) date) unknown) (unknown) (no (unknown) (unknown) Glucose (units (unkno wn) date) unknown) (unknown) (no (unknown) (unknown) HTN (units (unkno wn) date) unknown) (unknown) (no (unknown) (unknown) Hct 37.7 (units (unkno wn) date) unknown) (unknown) (no (unknown) (unknown) Hct (units (unkno wn) date) unknown) (unknown) (no (unknown) (unknown) Heparin Drip IV (units (unknown) date) 12.71 units/kg/hr unknown) (unknown) (no (unknown) (unknown) Heparin (units (unkno wn) date) Sodium/Dextrose unknown) 25,000 unit in 500 mls @ 17.28 mls/hr 07/06/22 23:00 (unknown) (no (unknown) (unknown) Hgb 12.5 (units (unkno wn) date) unknown) (unknown) (no (unknown) (unknown) Hgb (units (unkno wn) date) unknown) (unknown) (no (unknown) (unknown) Home Medications (units (unknown) date) unknown) (unknown) (no (unknown) (unknown) Hypertension (units (u nknown) date) unknown) (unknown) (no (unknown) (unknown) I spent a total (units (unknown) date) of [] minutes of unknown) critical care time on this patient's care (unknown) (no (unknown) (unknown) I:E Ratio 1:3.7 (units (unknown) date) unknown) (unknown) (no (unknown) (unknown) IF CAMERA (units (unkn own) date) ACTIVATED, patient unknown) seen via real-time interactive audiovisual (unknown) (no (unknown) (unknown) Inspiratory Phase (units (unknown) date) Time 0.8 unknown) (unknown) (no (unknown) (unknown) Insulin Human (units ( unknown) date) Lispro 0 unit unknown) 07/06/22 07:45 07/06/22 21:33 (unknown) (no (unknown) (unknown) Insulin Lispro (units (unknown) date) 100 Unit/Ml 3ml unknown) Vial SUBCUT Not Given (unknown) (no (unknown) (unknown) Interval history: (units (unknown) date) unknown) (unknown) (no (unknown) (unknown) [facility] (units (unknown) date) [address] [place] [address] unknown) [place] [address] (unknown) (no (unknown) (unknown) Laboratory (units (unk nown) date) Results - last 24 unknown) hr (unknown) (no (unknown) (unknown) Labs (units (unkno wn) date) unknown) (unknown) (no (unknown) (unknown) Labs: (units (unkno wn) date) unknown) (unknown) (no (unknown) (unknown) Lymph # (Auto) (units (unknown) date) 1100 unknown) (unknown) (no (unknown) (unknown) Lymph # (Auto) (units (unknown) date) unknown) (unknown) (no (unknown) (unknown) Lymph % (Auto) (units (unknown) date) 11.0 L unknown) (unknown) (no (unknown) (unknown) Lymph % (Auto) (units (unknown) date) unknown) (unknown) (no (unknown) (unknown) MCH 31.2 (units (unkno wn) date) unknown) (unknown) (no (unknown) (unknown) MCH (units (unkno wn) date) unknown) (unknown) (no (unknown) (unknown) MCHC 33.1 (units (unkn own) date) unknown) (unknown) (no (unknown) (unknown) MCHC (units (unkno wn) date) unknown) (unknown) (no (unknown) (unknown) MCV 94.4 (units (unkno wn) date) unknown) (unknown) (no (unknown) (unknown) MCV (units (unkno wn) date) unknown) (unknown) (no (unknown) (unknown) Medications: (units (u nknown) date) unknown) (unknown) (no (unknown) (unknown) [place] # (Auto) 700 (units (unknown) date) unknown) (unknown) (no (unknown) (unknown) [place] # (Auto) (units ( unknown) date) unknown) (unknown) (no (unknown) (unknown) [place] % (Auto) 6.5 (units (unknown) date) unknown) (unknown) (no (unknown) (unknown) [place] % (Auto) (units ( unknown) date) unknown) (unknown) (no (unknown) (unknown) NSTEMI (units (unkno wn) date) unknown) (unknown) (no (unknown) (unknown) Narrative (units (unkn own) date) unknown) (unknown) (no (unknown) (unknown) Neut # (Auto) (units ( unknown) date) 8500 H unknown) (unknown) (no (unknown) (unknown) Neut # (Auto) (units ( unknown) date) unknown) (unknown) (no (unknown) (unknown) Neut % (Auto) (units ( unknown) date) 81.9 H unknown) (unknown) (no (unknown) (unknown) Neut % (Auto) (units ( unknown) date) unknown) (unknown) (no (unknown) (unknown) New (units (unkno wn) date) Cardiomyopathy unknown) with EF 30-35, ECHO shows apical akinesis which could be LAD (unknown) (no (unknown) (unknown) Objective (units (unkn own) date) unknown) (unknown) (no (unknown) (unknown) Other (units (unkno wn) date) 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/roles 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, hospitalist (unknown) (no (unknown) (unknown) Oxygen Delivery (units (unknown) date) Method Mechanical unknown) (unknown) (no (unknown) (unknown) Oxygen Delivery (units (unknown) date) Method Room Air unknown) (unknown) (no (unknown) (unknown) Oxygen Delivery (units (unknown) date) Method unknown) (unknown) (no (unknown) (unknown) Parameters: (units (un known) date) unknown) (unknown) (no (unknown) (unknown) Patient Location: (units (unknown) date) ICU unknown) (unknown) (no (unknown) (unknown) Patient Position (units (unknown) date) HOB >= 30 degrees unknown) (unknown) (no (unknown) (unknown) Patient Summary: (units (unknown) date) 46 yo W with PMH unknown) of angioedema, marijuana use and cocaine use (unknown) (no (unknown) (unknown) Patient seen (units (u nknown) date) through [address] way unknown) audio visual system. She is resting and breathing (unknown) (no (unknown) (unknown) Patient: (units (unkno wn) date) Dameon Caputo MR#: unknown) M0002 (unknown) (no (unknown) (unknown) Plan (units (unkno wn) date) unknown) (unknown) (no (unknown) (unknown) Plt Count 229 (units ( unknown) date) unknown) (unknown) (no (unknown) (unknown) Plt Count (units (unkn own) date) unknown) (unknown) (no (unknown) (unknown) Polysubstance (units ( unknown) date) abuse including unknown) cocaine (unknown) (no (unknown) (unknown) Positive End (units (u nknown) date) Expiratory 5 unknown) (unknown) (no (unknown) (unknown) Potassium 4.8 (units ( unknown) date) unknown) (unknown) (no (unknown) (unknown) Potassium (units (unkn own) date) unknown) (unknown) (no (unknown) (unknown) Precedex IV 0 (units ( unknown) date) mcg/kg/hr unknown) (unknown) (no (unknown) (unknown) Pressure (units (unkno wn) date) unknown) (unknown) (no (unknown) (unknown) Protocol (units (unkno wn) date) unknown) (unknown) (no (unknown) (unknown) Provider location (units (unknown) date) (State): [place] unknown) (unknown) (no (unknown) (unknown) Provider: (units (unkn own) date) Maciej Hernandez MD unknown) (unknown) (no (unknown) (unknown) Pulse Oximetry (units (unknown) date) 100 100 95 unknown) (unknown) (no (unknown) (unknown) Pulse Oximetry (units (unknown) date) 100 98 unknown) (unknown) (no (unknown) (unknown) Pulse Oximetry 99 (units (unknown) date) unknown) (unknown) (no (unknown) (unknown) Pulse Oximetry (units (unknown) date) unknown) (unknown) (no (unknown) (unknown) Pulse Rate 54 L (units (unknown) date) 54 L unknown) (unknown) (no (unknown) (unknown) Pulse Rate 55 L (units (unknown) date) 50 L unknown) (unknown) (no (unknown) (unknown) Pulse Rate 60 (units ( unknown) date) unknown) (unknown) (no (unknown) (unknown) Pulse Rate (units (unk nown) date) unknown) (unknown) (no (unknown) (unknown) Q6H KIRIT (units (unkno wn) date) Administration unknown) (unknown) (no (unknown) (unknown) Q6H KIRIT (units (unkno wn) date) unknown) (unknown) (no (unknown) (unknown) Quality TeleICU (units (unknown) date) unknown) (unknown) (no (unknown) (unknown) RBC 4.00 (units (unkno wn) date) unknown) (unknown) (no (unknown) (unknown) RBC (units (unkno wn) date) unknown) (unknown) (no (unknown) (unknown) RDW 13.2 (units (unkno wn) date) unknown) (unknown) (no (unknown) (unknown) RDW (units (unkno wn) date) unknown) (unknown) (no (unknown) (unknown) RT Vent Frequency (units (unknown) date) 16 unknown) (unknown) (no (unknown) (unknown) Recent events: (units (unknown) date) unknown) (unknown) (no (unknown) (unknown) 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 (unknown) (no (unknown) (unknown) Respiratory Rate (units (unknown) date) 16 16 unknown) (unknown) (no (unknown) (unknown) Respiratory Rate (units (unknown) date) 17 16 unknown) (unknown) (no (unknown) (unknown) Respiratory Rate (units (unknown) date) 20 20 unknown) (unknown) (no (unknown) (unknown) Respiratory Rate (units (unknown) date) 21 unknown) (unknown) (no (unknown) (unknown) Result Diagrams: (units (unknown) date) unknown) (unknown) (no (unknown) (unknown) Signed (units (unkno wn) date) By:<Electronically unknown) signed by Maciej Hernandez MD> (unknown) (no (unknown) (unknown) Sodium 137 (units (unk nown) date) unknown) (unknown) (no (unknown) (unknown) Sodium (units (unkno wn) date) unknown) (unknown) (no (unknown) (unknown) Subjective (units (unk nown) date) unknown) (unknown) (no (unknown) (unknown) TITRATE KIRIT 0 (units ( unknown) date) mls/hr unknown) (unknown) (no (unknown) (unknown) Teleintensivist (units (unknown) date) Progress Note unknown) (unknown) (no (unknown) (unknown) Temperature 97.2 (units (unknown) date) F L unknown) (unknown) (no (unknown) (unknown) Temperature 98.2 (units (unknown) date) F unknown) (unknown) (no (unknown) (unknown) Temperature (units (un known) date) unknown) (unknown) (no (unknown) (unknown) Time Spent With (units (unknown) date) Patient unknown) (unknown) (no (unknown) (unknown) Titration (units (unkn own) date) unknown) (unknown) (no (unknown) (unknown) Total Bilirubin (units (unknown) date) 0.5 unknown) (unknown) (no (unknown) (unknown) Total Bilirubin (units (unknown) date) unknown) (unknown) (no (unknown) (unknown) Total Creatine (units (unknown) date) Kinase 244 H unknown) (unknown) (no (unknown) (unknown) Total Creatine (units (unknown) date) Kinase 258 H unknown) (unknown) (no (unknown) (unknown) Total Creatine (units (unknown) date) Kinase 730 H D unknown) (unknown) (no (unknown) (unknown) Total Protein 6.6 (units (unknown) date) unknown) (unknown) (no (unknown) (unknown) Total Protein (units ( unknown) date) unknown) (unknown) (no (unknown) (unknown) Trade Name Freq (units (unknown) date) PRN Reason Stop unknown) Dose Admin (unknown) (no (unknown) (unknown) Troponin I 4.630 (units (unknown) date) H* unknown) (unknown) (no (unknown) (unknown) Troponin I 5.560 (units (unknown) date) H* unknown) (unknown) (no (unknown) (unknown) Troponin I 6.810 (units (unknown) date) H* unknown) (unknown) (no (unknown) (unknown) VTE (units (unkno wn) date) unknown) (unknown) (no (unknown) (unknown) Ventilation (units (un known) date) unknown) (unknown) (no (unknown) (unknown) Ventilator (units (unk n) date) Settings unknown) (unknown) (no (unknown) (unknown) Ventilator Tidal (units (unknown) date) Volume 460 unknown) (unknown) (no (unknown) (unknown) Ventilator (units (unk nown) date) unknown) (unknown) (no (unknown) (unknown) Visit Medications (units (unknown) date) (administered) unknown) (unknown) (no (unknown) (unknown) Vital Signs (units (un known) date) unknown) (unknown) (no (unknown) (unknown) Vt/kg IBW 8 (units (un known) date) unknown) (unknown) (no (unknown) (unknown) WBC 10.3 D (units (unk nown) date) unknown) (unknown) (no (unknown) (unknown) WBC (units (unkno wn) date) unknown) (unknown) (no (unknown) (unknown) [Embedded Image (units (unknown) date) Not Available] unknown) (unknown) (no (unknown) (unknown) akinesis) (units (unkn own) date) unknown) (unknown) (no (unknown) (unknown) benadryl, and (units ( unknown) date) famotidine for unknown) angioedema. 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 unknown) Pt. started on Epi drip, decardron, (unknown) (no (unknown) (unknown) potassium (units (unkn own) date) chloride 20 mEq unknown) tablet,extended release 40 meq PO DAILY #90 tabs (unknown) (no (unknown) (unknown) recurrent (units (unkn own) date) angioedema, will unknown) hold off on Vick-I and ARB for now (unknown) (no (unknown) (unknown) spironolactone 25 (units (unknown) date) mg tablet 25 mg PO unknown) DAILY #90 tabs 04/14/22 [Rx Confirmed (unknown) (no (unknown) (unknown) started for (units (un known) date) NSTEMI. ECHO unknown) showed new cardiomyopathy (EF 30-35% with apical (unknown) (no (unknown) (unknown) the last 24 hours (units (unknown) date) at times has been unknown) in the 50s, if HR improves consider start (unknown) (no (unknown) (unknown) today; this time (units (unknown) date) is exclusive of unknown) procedural time. (unknown) (no (unknown) (unknown) who was admitted (units (unknown) date) 07/05/22 with unknown) sudden tongue swelling and acute respiratory Result panel 712 (unknown) (no date) (unknown) (unknown) 1.4 % (unkn own) (unknown) (no date) (unknown) (unknown) 4.220 ng/ml (unkn own) (unknown) (no date) (unknown) (unknown) 4.220 ng/ml (unkn own) (unknown) (no date) (unknown) (unknown) 706 u/l (unkn own) (unknown) (no date) (unknown) (unknown) 9.65 ng/ml (unkn own) Result panel 713 (unknown) (no date) (unknown) (unknown) 17 mg/dl (unkn own) (unknown) (no date) (unknown) (unknown) 17 mg/dl 4498- 2 (unknown) (no date) (unknown) (unknown) 756 iu/ml (unkn own) (unknown) (no date) (unknown) (unknown) 756 iu/ml 75004 -0 Result panel 714 (unknown) (no date) (unknown) (unknown) No growth. (units (un known) unknown) Result panel 715 (unknown) (no date) (unknown) (unknown) 841 u/l (unkn own) Result panel 716 (unknown) (no date) (unknown) (unknown) 47 seconds (unkn own) (unknown) (no date) (unknown) (unknown) 47 seconds (unkn own) Result panel 717 (unknown) (no date) (unknown) (unknown) 1.1 % (unkn own) (unknown) (no date) (unknown) (unknown) 841 u/l (unkn own) (unknown) (no date) (unknown) (unknown) 9.00 ng/ml (unkn own) Result panel 718 (unknown) (no date) (unknown) (unknown) 1.1 % (unkn own) (unknown) (no date) (unknown) (unknown) 4.120 ng/ml (unkn own) (unknown) (no date) (unknown) (unknown) 4.120 ng/ml (unkn own) (unknown) (no date) (unknown) (unknown) 841 u/l (unkn own) (unknown) (no date) (unknown) (unknown) 9.00 ng/ml (unkn own) Result panel 719 (unknown) (no date) (unknown) (unknown) (no value) (units (un known) unknown) (unknown) (no date) (unknown) (unknown) <25 Squamous (units ( unknown) Epithelial unknown) Cells/LPF, Acceptable (unknown) (no date) (unknown) (unknown) Light growth - (units (unknown) Mixed resident unknown) farhat (unknown) (no date) (unknown) (unknown) Occasional WBC (units (unknown) seen unknown) Result panel 720 (unknown) (no date) (unknown) (unknown) (no value) (units (un known) unknown) (unknown) (no date) (unknown) (unknown) NO GROWTH (units (unk nown) AFTER 24 unknown) HOURS (unknown) (no date) (unknown) (unknown) NO GROWTH (units (unk nown) AFTER 24 unknown) HOURS Result panel 721 (unknown) (no date) (unknown) (unknown) (no value) (units (un known) unknown) (unknown) (no date) (unknown) (unknown) NO GROWTH (units (unk nown) AFTER 24 unknown) HOURS (unknown) (no date) (unknown) (unknown) NO GROWTH (units (unk nown) AFTER 24 unknown) HOURS Result panel 722 (unknown) (no (unknown) (unknown) (no value) (units (unk nown) date) unknown) (unknown) (no (unknown) (unknown) 07/07/22 (units (unkno wn) date) unknown) (unknown) (no (unknown) (unknown) [address] (units (unknown) date) unknown) (unknown) (no (unknown) (unknown) 153 mL. Lung/heart (units (unknown) date) ratio 0.29, which is unknown) within normal limits. TID ratio 1.05, (unknown) (no (unknown) (unknown) [id number] (units (unkno wn) date) unknown) (unknown) (no (unknown) (unknown) 96/60. Baseline (units (unknown) date) rhythm sinus with unknown) diffuse T-wave inversion involving inferior (unknown) (no (unknown) (unknown) Accession Number: (units (unknown) date) [id number] unknown) (unknown) (no (unknown) (unknown) Age/Sex: 46 / F (units (unknown) date) Date of Service: unknown) (unknown) (no (unknown) (unknown) [place] [address] (unit s (unknown) date) unknown) (unknown) (no (unknown) (unknown) Dameon Caputo - MRN: (unit s (unknown) date) [id number] unknown) (unknown) (no (unknown) (unknown) CARDIAC STRESS: The (unit s (unknown) date) patient underwent IV unknown) Lexiscan perfusion study under the (unknown) (no (unknown) (unknown) CONCLUSION: This is (unit s (unknown) date) an abnormal unknown) myocardial perfusion study, consistent with (unknown) (no (unknown) (unknown) COPIES MNE: PALV; (units (unknown) date) unknown) (unknown) (no (unknown) (unknown) DATE OF SERVICE: (units (unknown) date) unknown) (unknown) (no (unknown) (unknown) DICTATING MD/COPIES (unit s (unknown) date) TO: Michael Babb, unknown) MD (unknown) (no (unknown) (unknown) : 1975 (units (unknown) date) Acct:[id number] unknown) (unknown) (no (unknown) (unknown) Draft (units (unkno wn) date) unknown) (unknown) (no (unknown) (unknown) GATED STUDY: Stress (unit s (unknown) date) LV ejection fraction unknown) 37 percent. 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 (unknown) (no (unknown) (unknown) [facility] (units (unknown) date) unknown) (unknown) (no (unknown) (unknown) Loc: ICU 227-1 (units (unknown) date) unknown) (unknown) (no (unknown) (unknown) MYOCARDIAL (units (unk nown) date) PERFUSION SCAN: unknown) Stress supine, resting supine and stress prone (unknown) (no (unknown) (unknown) Nuclear Medicine (units (unknown) date) Report unknown) (unknown) (no (unknown) (unknown) Ordering Provider: (units (unknown) date) Charissa Cordova MD unknown) (unknown) (no (unknown) (unknown) PROCEDURE: (units (unk n) date) Pharmacological unknown) perfusion study. (unknown) (no (unknown) (unknown) Patient: (units (o wn) date) Dameon Caputo MR#: unknown) M000 (unknown) (no (unknown) (unknown) Procedure: NM aida (units (unknown) date) perf SPECT R+S pharm unknown) (unknown) (no (unknown) (unknown) RADIOPHARMACEUTICAL (unit s (unknown) date) : 27.5 millicurie unknown) technetium-99m Myoview IV was injected at (unknown) (no (unknown) (unknown) RAW DATA: There is (units (unknown) date) increased unknown) subdiaphragmatic activity. Breast shadow was (unknown) (no (unknown) (unknown) Signed (units (o wn) date) unknown) (unknown) (no (unknown) (unknown) CUTTING TOOL SHARPENER/fn/lc (units (o wn) date) unknown) (unknown) (no (unknown) (unknown) clinically and (units (unknown) date) consider left heart unknown) catheterization to rule out occlusive (unknown) (no (unknown) (unknown) coronary artery (units (unknown) date) disease. 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 Discussed the (unknown) (no (unknown) (unknown) doc#: (units (unkno wn) date) [id number]/job#: [id number] unknown) (unknown) (no (unknown) (unknown) extending into the (units (unknown) date) mid to distal unknown) anteroseptum. There is also a moderate-size (unknown) (no (unknown) (unknown) findings (units (unkno wn) date) unknown) (unknown) (no (unknown) (unknown) fraction 37 percent (unit s (unknown) date) with wall motion unknown) abnormalities, as stated above. Correlate (unknown) (no (unknown) (unknown) hypercontractility (units (unknown) date) of the basal LV unknown) segments, but mid to distal LV segments, (unknown) (no (unknown) (unknown) images were (units (un known) date) compared to each unknown) other. There appears to be predominantly fixed (unknown) (no (unknown) (unknown) including apex, (units (unknown) date) severely hypokinetic unknown) to akinetic. Stress end-diastolic volume (unknown) (no (unknown) (unknown) inferolateral wall, (unit s (unknown) date) consistent with unknown) infarction. Left ventricular ejection (unknown) (no (unknown) (unknown) inferolateral wall. (unit s (unknown) date) No obvious unknown) reversible ischemia. (unknown) (no (unknown) (unknown) leads, as well as (units (unknown) date) leads V3 to V6 and unknown) lateral leads. During stress, patient did (unknown) (no (unknown) (unknown) mid to distal (units ( unknown) date) anteroseptum, as unknown) well as mid inferior wall extending into the mid (unknown) (no (unknown) (unknown) moderate size (units ( unknown) date) severe predominantly unknown) fixed defect of mid to distal anterior wall, (unknown) (no (unknown) (unknown) moderate-size (units ( unknown) date) severely decreased unknown) perfusion of mid to distal anterior wall (unknown) (no (unknown) (unknown) not have any new (units (unknown) date) significant ischemic unknown) changes. No significant arrhythmias. No (unknown) (no (unknown) (unknown) obvious anginal (units (unknown) date) symptoms. unknown) (unknown) (no (unknown) (unknown) pressure (units (unkno wn) date) unknown) (unknown) (no (unknown) (unknown) protocol. The (units ( unknown) date) patient remained unknown) hemodynamically stable. Baseline blood (unknown) (no (unknown) (unknown) seen, as well. (units (unknown) date) unknown) (unknown) (no (unknown) (unknown) severely decreased (units (unknown) date) perfusion of mid unknown) inferior wall extending into the mid (unknown) (no (unknown) (unknown) stress and 9.5 (units (unknown) date) millicurie unknown) technetium-99m Myoview IV was injected at rest. (unknown) (no (unknown) (unknown) supervision of an (units (unknown) date) attending staff unknown) using standard intravenous Lexiscan, as per (unknown) (no (unknown) (unknown) which is within (units (unknown) date) normal limits. unknown) (unknown) (no (unknown) (unknown) with Dr. Iyer. (units (unknown) date) unknown) Result panel 723 (unknown) (no date) (unknown) (unknown) 37 seconds (unkn own) (unknown) (no date) (unknown) (unknown) 37 seconds (unkn own) Result panel 724 (unknown) (no date) (unknown) (unknown) 31 seconds (unkn own) (unknown) (no date) (unknown) (unknown) 31 seconds (unkn own) Result panel 725 (unknown) (no date) (unknown) (unknown) > 60 ml/min (unkn own) (unknown) (no date) (unknown) (unknown) > 60 ml/min (unkn own) (unknown) (no date) (unknown) (unknown) 0.89 mg/dl (unkn own) (unknown) (no date) (unknown) (unknown) 1.1 mg/dl (unkn own) (unknown) (no date) (unknown) (unknown) 1.2 (units unknown) (unknown) (unknown) (no date) (unknown) (unknown) 100 mmol/l (unkn own) (unknown) (no date) (unknown) (unknown) 113 mg/dl (unkn own) (unknown) (no date) (unknown) (unknown) 113 mg/dl (unkn own) (unknown) (no date) (unknown) (unknown) 137 mmol/l (unkn own) (unknown) (no date) (unknown) (unknown) 137 mmol/l (unkn own) (unknown) (no date) (unknown) (unknown) 14 mg/dl (unkn own) (unknown) (no date) (unknown) (unknown) 15.7 (units unknown) (unknown) (unknown) (no date) (unknown) (unknown) 3.1 g/dl (unkn own) (unknown) (no date) (unknown) (unknown) 3.5 mmol/l (unkn own) (unknown) (no date) (unknown) (unknown) 3.5 mmol/l (unkn own) (unknown) (no date) (unknown) (unknown) 3.6 g/dl (unkn own) (unknown) (no date) (unknown) (unknown) 32 iu/l (unkn own) (unknown) (no date) (unknown) (unknown) 33 mmol/l (unkn own) (unknown) (no date) (unknown) (unknown) 54 iu/l (unkn own) (unknown) (no date) (unknown) (unknown) 6.7 g/dl (unkn own) (unknown) (no date) (unknown) (unknown) 65 u/l (unkn own) (unknown) (no date) (unknown) (unknown) 8.3 mg/dl (unkn own) Result panel 726 (unknown) (no date) (unknown) (unknown) 0 /ul (unkn own) (unknown) (no date) (unknown) (unknown) 0.3 % (unkn own) (unknown) (no date) (unknown) (unknown) 0.8 % (unkn own) (unknown) (no date) (unknown) (unknown) 100 /ul (unkn own) (unknown) (no date) (unknown) (unknown) 11.0 x10 3/ul (unkn own) (unknown) (no date) (unknown) (unknown) 11.0 x10 3/ul (unkn own) (unknown) (no date) (unknown) (unknown) 11.4 g/dl (unkn own) (unknown) (no date) (unknown) (unknown) 13.4 % (unkn own) (unknown) (no date) (unknown) (unknown) 184 x10 3/ul (unkn own) (unknown) (no date) (unknown) (unknown) 22.5 % (unkn own) (unknown) (no date) (unknown) (unknown) 2500 /ul (unkn own) (unknown) (no date) (unknown) (unknown) 3.58 x10 6/ul (unkn own) (unknown) (no date) (unknown) (unknown) 31.7 pg (unkn own) (unknown) (no date) (unknown) (unknown) 33.5 % (unkn own) (unknown) (no date) (unknown) (unknown) 33.8 % (unkn own) (unknown) (no date) (unknown) (unknown) 5.8 % (unkn own) (unknown) (no date) (unknown) (unknown) 600 /ul (unkn own) (unknown) (no date) (unknown) (unknown) 70.6 % (unkn own) (unknown) (no date) (unknown) (unknown) 7800 /ul (unkn own) (unknown) (no date) (unknown) (unknown) 93.6 fl (unkn own) Result panel 727 (unknown) (no (unknown) (unknown) (no value) (units (unk nown) date) unknown) (unknown) (no (unknown) (unknown) (past 8 hours): (units (unknown) date) unknown) (unknown) (no (unknown) (unknown) 01:20 05:45 05:45 (units (unknown) date) unknown) (unknown) (no (unknown) (unknown) 02:45 07/08/22 (units (unknown) date) unknown) (unknown) (no (unknown) (unknown) 02:45 (units (unkno wn) date) unknown) (unknown) (no (unknown) (unknown) 03:00 03:00 (units (un known) date) unknown) (unknown) (no (unknown) (unknown) 04:12 (units (unkno wn) date) unknown) (unknown) (no (unknown) (unknown) 07:30 07:30 11:00 (units (unknown) date) unknown) (unknown) (no (unknown) (unknown) 07/07/22 07/07/22 (units (unknown) date) 07/07/22 unknown) (unknown) (no (unknown) (unknown) 07/07/22 07/07/22 (units (unknown) date) 07/08/22 unknown) (unknown) (no (unknown) (unknown) 07/07/22 (units (unkno wn) date) unknown) (unknown) (no (unknown) (unknown) 07/08/22 03:00 (units (unknown) date) unknown) (unknown) (no (unknown) (unknown) 07/08/22 07/08/22 (units (unknown) date) unknown) (unknown) (no (unknown) (unknown) 07/08/22 (units (unkno wn) date) unknown) (unknown) (no (unknown) (unknown) 11:00 19:15 03:00 (units (unknown) date) unknown) (unknown) (no (unknown) (unknown) :22 07/08/22 (units (unknown) date) unknown) (unknown) (no (unknown) (unknown) [id number] (units (unkno wn) date) unknown) (unknown) (no (unknown) (unknown) 6-year-old female (units (unknown) date) with polysubstance unknown) dependence specifically cocaine and (unknown) (no (unknown) (unknown) ABD: Soft, NT/ND, (units (unknown) date) BT present in all 4 unknown) quadrants, no organomegaly or masses (unknown) (no (unknown) (unknown) ALT 32 (units (unkno wn) date) unknown) (unknown) (no (unknown) (unknown) ALT (units (unkno wn) date) unknown) (unknown) (no (unknown) (unknown) APTT 31 D (units (unkn own) date) unknown) (unknown) (no (unknown) (unknown) APTT 42 H D (units (un known) date) unknown) (unknown) (no (unknown) (unknown) APTT 47 H 37 H D (units (unknown) date) unknown) (unknown) (no (unknown) (unknown) APTT (units (unkno wn) date) unknown) (unknown) (no (unknown) (unknown) AST 54 H (units (unkno wn) date) unknown) (unknown) (no (unknown) (unknown) AST (units (unkno wn) date) unknown) (unknown) (no (unknown) (unknown) Abscess (units (unkno wn) date) unknown) (unknown) (no (unknown) (unknown) Age/Sex: 46 / F (units (unknown) date) unknown) (unknown) (no (unknown) (unknown) Albumin 3.6 (units (un known) date) unknown) (unknown) (no (unknown) (unknown) Albumin (units (unkno wn) date) unknown) (unknown) (no (unknown) (unknown) Albumin/Globulin (units (unknown) date) Ratio 1.2 unknown) (unknown) (no (unknown) (unknown) Albumin/Globulin (units (unknown) date) Ratio unknown) (unknown) (no (unknown) (unknown) Alkaline (units (unkno wn) date) Phosphatase 65 unknown) (unknown) (no (unknown) (unknown) Alkaline (units (unkno wn) date) Phosphatase unknown) (unknown) (no (unknown) (unknown) Angioedema with (units (unknown) date) acute hypoxic unknown) respiratory failure (unknown) (no (unknown) (unknown) Anxiety (units (unkno wn) date) unknown) (unknown) (no (unknown) (unknown) Assessment + Plan (units (unknown) date) narrative: unknown) (unknown) (no (unknown) (unknown) Assessment + Plan (units (unknown) date) unknown) (unknown) (no (unknown) (unknown) BUN 14 (units (unkno wn) date) unknown) (unknown) (no (unknown) (unknown) BUN (units (unkno wn) date) unknown) (unknown) (no (unknown) (unknown) BUN/Creatinine (units (unknown) date) Ratio 15.7 unknown) (unknown) (no (unknown) (unknown) BUN/Creatinine (units (unknown) date) Ratio unknown) (unknown) (no (unknown) (unknown) Baso # (Auto) 100 (units (unknown) date) unknown) (unknown) (no (unknown) (unknown) Baso # (Auto) (units ( unknown) date) unknown) (unknown) (no (unknown) (unknown) Baso % (Auto) 0.8 (units (unknown) date) unknown) (unknown) (no (unknown) (unknown) Baso % (Auto) (units ( unknown) date) unknown) (unknown) (no (unknown) (unknown) Blood Pressure (units (unknown) date) 120/94 H unknown) (unknown) (no (unknown) (unknown) Blood Pressure (units (unknown) date) 123/92 H 127/94 H unknown) 127/94 H (unknown) (no (unknown) (unknown) C-Reactive Protein (units (unknown) date) < 0.5 unknown) (unknown) (no (unknown) (unknown) C-Reactive Protein (units (unknown) date) unknown) (unknown) (no (unknown) (unknown) CHEST: Respiratory (units (unknown) date) excursions unknown) symmetric, CTAB (unknown) (no (unknown) (unknown) CK-MB (CK-2) 11.10 (units (unknown) date) H unknown) (unknown) (no (unknown) (unknown) CK-MB (CK-2) 9.65 (units (unknown) date) H 9.00 H unknown) (unknown) (no (unknown) (unknown) CK-MB (CK-2) Rel (units (unknown) date) Index 1.4 L 1.1 L unknown) (unknown) (no (unknown) (unknown) CK-MB (CK-2) Rel (units (unknown) date) Index 1.5 unknown) (unknown) (no (unknown) (unknown) CK-MB (CK-2) Rel (units (unknown) date) Index unknown) (unknown) (no (unknown) (unknown) CK-MB (CK-2) (units (u nknown) date) unknown) (unknown) (no (unknown) (unknown) CV:? Tachycardic (units (unknown) date) with regular unknown) rhythm, no M/R/G (unknown) (no (unknown) (unknown) Calcium 8.3 L (units ( unknown) date) unknown) (unknown) (no (unknown) (unknown) Calcium (units (unkno wn) date) unknown) (unknown) (no (unknown) (unknown) Carbon Dioxide 33 (units (unknown) date) H unknown) (unknown) (no (unknown) (unknown) Carbon Dioxide (units (unknown) date) unknown) (unknown) (no (unknown) (unknown) Chloride 100 (units (u nknown) date) unknown) (unknown) (no (unknown) (unknown) Chloride (units (unkno wn) date) unknown) (unknown) (no (unknown) (unknown) Chronic abdominal (units (unknown) date) pain unknown) (unknown) (no (unknown) (unknown) Code status (units (un known) date) unknown) (unknown) (no (unknown) (unknown) Const (units (unkno wn) date) unknown) (unknown) (no (unknown) (unknown) Creatinine 0.89 (units (unknown) date) unknown) (unknown) (no (unknown) (unknown) Creatinine (units (unk nown) date) unknown) (unknown) (no (unknown) (unknown) Critical Care (units ( unknown) date) time: unknown) (unknown) (no (unknown) (unknown) Cyclic vomiting (units (unknown) date) syndrome unknown) (unknown) (no (unknown) (unknown) : 1975 (units (unknown) date) Acct:[id number] unknown) (unknown) (no (unknown) (unknown) Date of Service: (units (unknown) date) 07/05/22 unknown) (unknown) (no (unknown) (unknown) Daughter (units (unkno wn) date) Angio-edema unknown) (unknown) (no (unknown) (unknown) Deep Vein (units (unkn own) date) Thrombosis/Pulmonar unknown) y Embolism Present on Admission: No (unknown) (no (unknown) (unknown) Disposition (units (un known) date) unknown) (unknown) (no (unknown) (unknown) ESR 4 (units (unkno wn) date) unknown) (unknown) (no (unknown) (unknown) ESR (units (unkno wn) date) unknown) (unknown) (no (unknown) (unknown) EXTR: warm, well (units (unknown) date) perfused, no C/C/E unknown) (unknown) (no (unknown) (unknown) Echocardiogram (units (unknown) date) done this admission unknown) revealed significant cardiomyopathy felt to (unknown) (no (unknown) (unknown) Echocardiogram (units (unknown) date) performed yesterday unknown) showed new reduced EF, per on-call (unknown) (no (unknown) (unknown) Eos # (Auto) 0 (units (unknown) date) unknown) (unknown) (no (unknown) (unknown) Eos # (Auto) (units (u nknown) date) unknown) (unknown) (no (unknown) (unknown) Eos % (Auto) 0.3 L (units (unknown) date) unknown) (unknown) (no (unknown) (unknown) Eos % (Auto) (units (u nknown) date) unknown) (unknown) (no (unknown) (unknown) Epinephrine was (units (unknown) date) discontinued unknown) secondary to elevated troponin.? Unclear etiology (unknown) (no (unknown) (unknown) Estimated GFR > 60 (units (unknown) date) unknown) (unknown) (no (unknown) (unknown) Estimated GFR (units ( unknown) date) unknown) (unknown) (no (unknown) (unknown) Exam (units (unkno wn) date) unknown) (unknown) (no (unknown) (unknown) Family History (units (unknown) date) (Reviewed 07/06/22 unknown) @ 06:11 by Leslie Torres MD) (unknown) (no (unknown) (unknown) Family history of (units (unknown) date) angioedema unknown) (unknown) (no (unknown) (unknown) Father (units (unkno wn) date) Hypertension unknown) (unknown) (no (unknown) (unknown) Fraction of (units (un known) date) Inspired Oxygen unknown) 0.30 (unknown) (no (unknown) (unknown) Full (units (unkno wn) date) unknown) (unknown) (no (unknown) (unknown) GEN:? Alert, (units (u nknown) date) tearful, very unknown) anxious and confrontational (unknown) (no (unknown) (unknown) Globulin 3.1 (units (u nknown) date) unknown) (unknown) (no (unknown) (unknown) Globulin (units (unkno wn) date) unknown) (unknown) (no (unknown) (unknown) Glucose 113 H (units ( unknown) date) unknown) (unknown) (no (unknown) (unknown) Glucose (units (unkno wn) date) unknown) (unknown) (no (unknown) (unknown) HEENT:NC, face (units (unknown) date) symmetric, unknown) abrasions noted sublingually, there is also abrasion (unknown) (no (unknown) (unknown) Hct 33.5 L (units (unk nown) date) unknown) (unknown) (no (unknown) (unknown) Hct (units (unkno wn) date) unknown) (unknown) (no (unknown) (unknown) Hgb 11.4 L (units (unk nown) date) unknown) (unknown) (no (unknown) (unknown) Hgb (units (unkno wn) date) unknown) (unknown) (no (unknown) (unknown) Holding her (units (unk nown) date) outpatient unknown) antihypertensive therapy.? Blood pressure is normotensive (unknown) (no (unknown) (unknown) However, (units (un known) date) Masoud who read unknown) the patient's echocardiogram yesterday felt very (unknown) (no (unknown) (unknown) Hx of appendectomy (units (unknown) date) unknown) (unknown) (no (unknown) (unknown) Hx of (units (unkno wn) date) cholecystectomy unknown) (unknown) (no (unknown) (unknown) Hyperglycemia (units ( unknown) date) unknown) (unknown) (no (unknown) (unknown) Hypertension (units (u nknown) date) unknown) (unknown) (no (unknown) (unknown) Hypotension (units (un known) date) unknown) (unknown) (no (unknown) (unknown) I spent a total of (units (unknown) date) [] minutes of unknown) critical care time on this patient's care (unknown) (no (unknown) (unknown) Intensive care (units (unknown) date) unit.? Patient is unknown) upset that she is using a commode, is on (unknown) (no (unknown) (unknown) Interval history: (units (unknown) date) unknown) (unknown) (no (unknown) (unknown) [facility] (units (unknown) date) [address] unknown) [place] [address] (unknown) (no (unknown) (unknown) Laboratory Results (units (unknown) date) - last 24 hr unknown) (unknown) (no (unknown) (unknown) Labs (units (unkno wn) date) unknown) (unknown) (no (unknown) (unknown) Labs: (units (unkno wn) date) unknown) (unknown) (no (unknown) (unknown) Lymph # (Auto) (units (unknown) date) 2500 unknown) (unknown) (no (unknown) (unknown) Lymph # (Auto) (units (unknown) date) unknown) (unknown) (no (unknown) (unknown) Lymph % (Auto) (units (unknown) date) 22.5 L unknown) (unknown) (no (unknown) (unknown) Lymph % (Auto) (units (unknown) date) unknown) (unknown) (no (unknown) (unknown) MCH 31.7 (units (unkno wn) date) unknown) (unknown) (no (unknown) (unknown) MCH (units (unkno wn) date) unknown) (unknown) (no (unknown) (unknown) MCHC 33.8 (units (unkn own) date) unknown) (unknown) (no (unknown) (unknown) MCHC (units (unkno wn) date) unknown) (unknown) (no (unknown) (unknown) MCV 93.6 (units (unkno wn) date) unknown) (unknown) (no (unknown) (unknown) MCV (units (unkno wn) date) unknown) (unknown) (no (unknown) (unknown) 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 (unknown) (no (unknown) (unknown) Marijuana use, (units (unknown) date) continuous unknown) (unknown) (no (unknown) (unknown) Medical History (units (unknown) date) (Reviewed 07/06/22 unknown) @ 06:11 by Leslie Torres MD) (unknown) (no (unknown) (unknown) [place] # (Auto) 600 (units (unknown) date) unknown) (unknown) (no (unknown) (unknown) [place] # (Auto) (units ( unknown) date) unknown) (unknown) (no (unknown) (unknown) [place] % (Auto) 5.8 (units (unknown) date) unknown) (unknown) (no (unknown) (unknown) [place] % (Auto) (units ( unknown) date) unknown) (unknown) (no (unknown) (unknown) Mother Diabetes (units (unknown) date) mellitus unknown) (unknown) (no (unknown) (unknown) NEURO:? 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 She will be restarted (unknown) (no (unknown) (unknown) Other Colon cancer (units (unknown) date) unknown) (unknown) (no (unknown) (unknown) Other: (units (unkno wn) date) unknown) (unknown) (no (unknown) (unknown) Oxygen Delivery (units (unknown) date) Method Room Air unknown) (unknown) (no (unknown) (unknown) Oxygen Flow Rate 0 (units (unknown) date) unknown) (unknown) (no (unknown) (unknown) Oxygen Flow Rate (units (unknown) date) unknown) (unknown) (no (unknown) (unknown) PFSH (units (unkno wn) date) unknown) (unknown) (no (unknown) (unknown) Pancreatitis (units (u nknown) date) unknown) (unknown) (no (unknown) (unknown) Patient has had (units (unknown) date) labile emotions unknown) overnight.? She is been complaining of pain this (unknown) (no (unknown) (unknown) Patient reports (units (unknown) date) for previous unknown) presentations, but this was the 1st time she (unknown) (no (unknown) (unknown) Patient reports (units (unknown) date) she is not used unknown) cocaine recently and feels it has nothing to do (unknown) (no (unknown) (unknown) Patient was (units (un known) date) initiated on a unknown) heparin infusion per recommendations by (unknown) (no (unknown) (unknown) Patient: (units (unkno wn) date) Dameon Caputo MR#: unknown) [id number] (unknown) (no (unknown) (unknown) Plt Count 184 (units ( unknown) date) unknown) (unknown) (no (unknown) (unknown) Plt Count (units (unkn own) date) unknown) (unknown) (no (unknown) (unknown) Potassium 3.5 D (units (unknown) date) unknown) (unknown) (no (unknown) (unknown) Potassium (units (unkn own) date) unknown) (unknown) (no (unknown) (unknown) Progress Note (units ( unknown) date) unknown) (unknown) (no (unknown) (unknown) Prophylaxis (units (un known) date) unknown) (unknown) (no (unknown) (unknown) Provider: (units (unkn own) date) Charissa Cordova MD unknown) (unknown) (no (unknown) (unknown) Pulse Oximetry 96 (units (unknown) date) unknown) (unknown) (no (unknown) (unknown) Pulse Oximetry (units (unknown) date) unknown) (unknown) (no (unknown) (unknown) Pulse Rate 104 H (units (unknown) date) 115 H 114 H unknown) (unknown) (no (unknown) (unknown) Pulse Rate 118 H (units (unknown) date) unknown) (unknown) (no (unknown) (unknown) Quality (units (unkno wn) date) unknown) (unknown) (no (unknown) (unknown) RBC 3.58 L (units (unk nown) date) unknown) (unknown) (no (unknown) (unknown) RBC (units (unkno wn) date) unknown) (unknown) (no (unknown) (unknown) RDW 13.4 (units (unkno wn) date) unknown) (unknown) (no (unknown) (unknown) RDW (units (unkno wn) date) unknown) (unknown) (no (unknown) (unknown) Resolved (units (unkno wn) date) unknown) (unknown) (no (unknown) (unknown) Respiratory Rate (units (unknown) date) 16 16 unknown) (unknown) (no (unknown) (unknown) Respiratory Rate (units (unknown) date) unknown) (unknown) (no (unknown) (unknown) Result Diagrams: (units (unknown) date) unknown) (unknown) (no (unknown) (unknown) Meredith.? She (units (unknown) date) was also initiated unknown) on aspirin and atorvastatin.? Nuclear stress (unknown) (no (unknown) (unknown) SKIN: warm and (units (unknown) date) dry, no rash unknown) (unknown) (no (unknown) (unknown) She does not wish (units (unknown) date) to have her nurse unknown) review them.? I have explained she can use (unknown) (no (unknown) (unknown) She is extremely (units (unknown) date) tearful.? She unknown) reports that she is angry at 1 of the staff who (unknown) (no (unknown) (unknown) Signed By: (units (unk nown) date) unknown) (unknown) (no (unknown) (unknown) Smoking Status: (units (unknown) date) Current every day unknown) smoker (unknown) (no (unknown) (unknown) Social History (units (unknown) date) (Reviewed 07/06/22 unknown) @ 06:11 by Leslie Torres MD) (unknown) (no (unknown) (unknown) Sodium 137 (units (unk nown) date) unknown) (unknown) (no (unknown) (unknown) Sodium (units (unkno wn) date) unknown) (unknown) (no (unknown) (unknown) Still A1c is 5.4%, (units (unknown) date) hyperglycemia is unknown) likely stress induced. 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 unknown) (unknown) (no (unknown) (unknown) Surgical History (units (unknown) date) (Reviewed 07/06/22 unknown) @ 06:11 by Leslie Torres MD) (unknown) (no (unknown) (unknown) Takotsubo (units (unkn own) date) cardiomyopathy unknown) (unknown) (no (unknown) (unknown) Temperature 99.4 F (units (unknown) date) unknown) (unknown) (no (unknown) (unknown) Temperature (units (un known) date) unknown) (unknown) (no (unknown) (unknown) Time Spent With (units (unknown) date) Patient unknown) (unknown) (no (unknown) (unknown) Total Bilirubin (units (unknown) date) 1.1 unknown) (unknown) (no (unknown) (unknown) Total Bilirubin (units (unknown) date) unknown) (unknown) (no (unknown) (unknown) Total Creatine (units (unknown) date) Kinase 706 H 841 H unknown) (unknown) (no (unknown) (unknown) Total Creatine (units (unknown) date) Kinase 730 H D unknown) (unknown) (no (unknown) (unknown) Total Creatine (units (unknown) date) Kinase unknown) (unknown) (no (unknown) (unknown) Total Protein 6.7 (units (unknown) date) unknown) (unknown) (no (unknown) (unknown) Total Protein (units ( unknown) date) unknown) (unknown) (no (unknown) (unknown) Troponin I 4.220 (units (unknown) date) H* 4.120 H* unknown) (unknown) (no (unknown) (unknown) Troponin I 4.630 (units (unknown) date) H* unknown) (unknown) (no (unknown) (unknown) Troponin I (units (unk nown) date) unknown) (unknown) (no (unknown) (unknown) VTE (units (unkno wn) date) unknown) (unknown) (no (unknown) (unknown) Vital Signs (units (un known) date) unknown) (unknown) (no (unknown) (unknown) WBC 11.0 (units (unkno wn) date) unknown) (unknown) (no (unknown) (unknown) WBC (units (unkno wn) date) unknown) (unknown) (no (unknown) (unknown) [Embedded Image (units (unknown) date) Not Available] unknown) (unknown) (no (unknown) (unknown) a stress test can (units (unknown) date) not be performed on unknown) the weekend.? She also are good that we (unknown) (no (unknown) (unknown) addition of a (units ( unknown) date) heparin infusion, unknown) aspirin, statin therapy, and a nuclear stress (unknown) (no (unknown) (unknown) alcohol intake: (units (unknown) date) current unknown) (unknown) (no (unknown) (unknown) also expresses the (units (unknown) date) desire to unknown) discharge.? She states she can not afford her (unknown) (no (unknown) (unknown) as the patient was (units (unknown) date) poorly receptive to unknown) further conversation with me. (unknown) (no (unknown) (unknown) be stress-induced.? (units (unknown) date) Ejection fraction unknown) was decreased to 30-35%, which is new from (unknown) (no (unknown) (unknown) began having this (units (unknown) date) problem 2 months unknown) later.? She was told it was a side effect of (unknown) (no (unknown) (unknown) 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? Troponin 6.8 (unknown) (no (unknown) (unknown) check an IgE (units (u nknown) date) level. unknown) (unknown) (no (unknown) (unknown) did explain that (units (unknown) date) they could be unknown) printed out and reviewed with her by her nurse.? (unknown) (no (unknown) (unknown) due to her (units (unk nown) date) emotional unknown) lability.? Continues diphenhydramine and famotidine.? (unknown) (no (unknown) (unknown) episodes of (units (un known) date) angioedema in the unknown) last 12 months.? They have no clear trigger or (unknown) (no (unknown) (unknown) explain that most (units (unknown) date) hospitals are full unknown) and would likely be unable to accomplish (unknown) (no (unknown) (unknown) for the (units (unkno wn) date) angioedema.? C1, C3 unknown) and C4 levels have all been checked previously and (unknown) (no (unknown) (unknown) have a couple of (units (unknown) date) episodes of unknown) hypotension yesterday am requiring IVF boluses. (unknown) (no (unknown) (unknown) have free access (units (unknown) date) to her chart.? I unknown) have discussed this with the patient's nurse (unknown) (no (unknown) (unknown) hospitalization (units (unknown) date) and does not unknown) qualify for assistance as she is over income. (unknown) (no (unknown) (unknown) household members: (units (unknown) date) spouse unknown) (unknown) (no (unknown) (unknown) therapy assistant (units (un known) date) recommended unknown) transfer to tertiary care facility for angiogram.? (unknown) (no (unknown) (unknown) intubation/mechani (units (unknown) date) abbie ventilation for unknown) airway protection.? She has been treated (unknown) (no (unknown) (unknown) last night.? (units (u nknown) date) Patient aroused unknown) earlier this morning and wanted the ET tube (unknown) (no (unknown) (unknown) marijuana who was (units (unknown) date) [id number]? with unknown) recurrent angioedema requiring (unknown) (no (unknown) (unknown) morning. (units (unkno wn) date) unknown) (unknown) (no (unknown) (unknown) morning.? She (units (u nknown) date) states she received unknown) her COVID vaccine approximately 1 year ago and (unknown) (no (unknown) (unknown) not access the (units (unknown) date) portal.? She wants unknown) a computer brought into the room so she could (unknown) (no (unknown) (unknown) noted to the (units (u nknown) date) tongue tip, unknown) decreased swelling overall, no cheek or lip swelling (unknown) (no (unknown) (unknown) pain in her throat (units (unknown) date) from the ET tube.? unknown) She complains of severe tongue pain.? She (unknown) (no (unknown) (unknown) prior.? Discussed (units (unknown) date) importance of unknown) monitoring with the patient.? She is very (unknown) (no (unknown) (unknown) reluctant to (units (u nknown) date) remain in the unknown) hospital. (unknown) (no (unknown) (unknown) remain in the (units (u nknown) date) hospital until unknown) Saturday to obtain a stress test.? She was asking why (unknown) (no (unknown) (unknown) removed.? Tele (units (unknown) date) therapy assistant unknown) approved and she was subsequently extubated.? Tele (unknown) (no (unknown) (unknown) required intubation (units (unknown) date) for airway unknown) protection.? Steroids were discontinued overnight (unknown) (no (unknown) (unknown) she felt did not (units (unknown) date) treat her right unknown) this morning.? 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 I did (unknown) (no (unknown) (unknown) strongly that the (units (unknown) date) patient had stress unknown) cardiomyopathy.? She recommended the (unknown) (no (unknown) (unknown) telemetry, and (units (unknown) date) reports her unknown) television has not been working.? She reports that (unknown) (no (unknown) (unknown) test to be (units (unk nown) date) performed for for unknown) discharge. (unknown) (no (unknown) (unknown) testing was (units (un known) date) recommended.? This unknown) will be ordered.? Patient is very reluctant to (unknown) (no (unknown) (unknown) that prior to (units ( unknown) date) Saturday anyway.? She unknown) was very confrontational. (unknown) (no (unknown) (unknown) the COVID (units (unkn own) date) vaccine.? She unknown) denies any shortness of breath today.? She reports mild (unknown) (no (unknown) (unknown) the portal to see (units (unknown) date) all of her labs and unknown) studies directly, but she states she can (unknown) (no (unknown) (unknown) today; this time (units (unknown) date) is exclusive of unknown) procedural time. (unknown) (no (unknown) (unknown) understanding of (units (unknown) date) her cardiac issues unknown) and 1 to have full access to her labs.? I (unknown) (no (unknown) (unknown) w/epinephrine, (units (unknown) date) dexamethasone, unknown) benadryl and pepcid IV for angioedema.? She did (unknown) (no (unknown) (unknown) were within normal (units (unknown) date) limits.? Will check unknown) a CRP and a sedimentation rate.? We will (unknown) (no (unknown) (unknown) with her current (units (unknown) date) presentation. unknown) Result panel 728 (unknown) (no date) (unknown) (unknown) 1.7 mg/dl (unkn own) (unknown) (no date) (unknown) (unknown) 1.7 mg/dl (unkn own) Result panel 729 (unknown) (no date) (unknown) (unknown) No growth. (units (un known) unknown) Result panel 730 (unknown) (no date) (unknown) (unknown) 47 seconds (unkn own) (unknown) (no date) (unknown) (unknown) 47 seconds (unkn own) Result panel 731 (unknown) (no date) (unknown) (unknown) (no value) (units (un known) unknown) (unknown) (no date) (unknown) (unknown) <25 Squamous (units ( unknown) Epithelial unknown) Cells/LPF, Acceptable (unknown) (no date) (unknown) (unknown) Light growth - (units (unknown) Mixed resident unknown) farhat (unknown) (no date) (unknown) (unknown) Occasional WBC (units (unknown) seen unknown) Result panel 732 (unknown) (no date) (unknown) (unknown) (no value) (units (un known) unknown) (unknown) (no date) (unknown) (unknown) <25 Squamous (units ( unknown) Epithelial unknown) Cells/LPF, Acceptable (unknown) (no date) (unknown) (unknown) Light growth - (units (unknown) Mixed resident unknown) farhat (unknown) (no date) (unknown) (unknown) Occasional WBC (units (unknown) seen unknown) Result panel 733 (unknown) (no date) (unknown) (unknown) (no value) (units (un known) unknown) (unknown) (no date) (unknown) (unknown) NO GROWTH (units (unk nown) AFTER 48 unknown) HOURS (unknown) (no date) (unknown) (unknown) NO GROWTH (units (unk nown) AFTER 48 unknown) HOURS Result panel 734 (unknown) (no date) (unknown) (unknown) (no value) (units (un known) unknown) (unknown) (no date) (unknown) (unknown) NO GROWTH (units (unk nown) AFTER 48 unknown) HOURS (unknown) (no date) (unknown) (unknown) NO GROWTH (units (unk nown) AFTER 48 unknown) HOURS Result panel 735 (unknown) (no (unknown) (unknown) (no value) (units (unk nown) date) unknown) (unknown) (no (unknown) (unknown) (past 8 hours): (units (unknown) date) unknown) (unknown) (no (unknown) (unknown) 01:20 05:45 05:45 (units (unknown) date) unknown) (unknown) (no (unknown) (unknown) 02:45 07/08/22 (units (unknown) date) unknown) (unknown) (no (unknown) (unknown) 02:45 (units (unkno wn) date) unknown) (unknown) (no (unknown) (unknown) 03:00 03:00 (units (un known) date) unknown) (unknown) (no (unknown) (unknown) 04:12 (units (unkno wn) date) unknown) (unknown) (no (unknown) (unknown) 07:30 07:30 11:00 (units (unknown) date) unknown) (unknown) (no (unknown) (unknown) 07/07/22 07/07/22 (units (unknown) date) 07/07/22 unknown) (unknown) (no (unknown) (unknown) 07/07/22 07/07/22 (units (unknown) date) 07/08/22 unknown) (unknown) (no (unknown) (unknown) 07/07/22 (units (unkno wn) date) unknown) (unknown) (no (unknown) (unknown) 07/08/22 03:00 (units (unknown) date) unknown) (unknown) (no (unknown) (unknown) 07/08/22 07/08/22 (units (unknown) date) unknown) (unknown) (no (unknown) (unknown) 07/08/22 1838 (units ( unknown) date) unknown) (unknown) (no (unknown) (unknown) 07/08/22 (units (unkno wn) date) unknown) (unknown) (no (unknown) (unknown) 11:00 19:15 03:00 (units (unknown) date) unknown) (unknown) (no (unknown) (unknown) 22:22 07/08/22 (units (unknown) date) unknown) (unknown) (no (unknown) (unknown) [id number] (units (unkno wn) date) unknown) (unknown) (no (unknown) (unknown) 46-year-old female (units (unknown) date) with polysubstance unknown) dependence specifically cocaine and (unknown) (no (unknown) (unknown) ABD: Soft, patient (units (unknown) date) cries out during unknown) any exam, she has no evidence of peritoneal (unknown) (no (unknown) (unknown) ALT 32 (units (unkno wn) date) unknown) (unknown) (no (unknown) (unknown) ALT (units (unkno wn) date) unknown) (unknown) (no (unknown) (unknown) APTT 31 D (units (unkn own) date) unknown) (unknown) (no (unknown) (unknown) APTT 42 H D (units (un known) date) unknown) (unknown) (no (unknown) (unknown) APTT 47 H 37 H D (units (unknown) date) unknown) (unknown) (no (unknown) (unknown) APTT (units (unkno wn) date) unknown) (unknown) (no (unknown) (unknown) AST 54 H (units (unkno wn) date) unknown) (unknown) (no (unknown) (unknown) AST (units (unkno wn) date) unknown) (unknown) (no (unknown) (unknown) Abscess (units (unkno wn) date) unknown) (unknown) (no (unknown) (unknown) Age/Sex: 46 / F (units (unknown) date) unknown) (unknown) (no (unknown) (unknown) Albumin 3.6 (units (un known) date) unknown) (unknown) (no (unknown) (unknown) Albumin (units (unkno wn) date) unknown) (unknown) (no (unknown) (unknown) Albumin/Globulin (units (unknown) date) Ratio 1.2 unknown) (unknown) (no (unknown) (unknown) Albumin/Globulin (units (unknown) date) Ratio unknown) (unknown) (no (unknown) (unknown) Alkaline (units (unkno wn) date) Phosphatase 65 unknown) (unknown) (no (unknown) (unknown) Alkaline (units (unkno wn) date) Phosphatase unknown) (unknown) (no (unknown) (unknown) Angioedema with (units (unknown) date) acute hypoxic unknown) respiratory failure (unknown) (no (unknown) (unknown) Anxiety (units (unkno wn) date) unknown) (unknown) (no (unknown) (unknown) Appears to be (units ( unknown) date) spasm from a stiff unknown) neck rather than anything significantly (unknown) (no (unknown) (unknown) Assessment + Plan (units (unknown) date) narrative: unknown) (unknown) (no (unknown) (unknown) Assessment + Plan (units (unknown) date) unknown) (unknown) (no (unknown) (unknown) BUN 14 (units (unkno wn) date) unknown) (unknown) (no (unknown) (unknown) BUN (units (unkno wn) date) unknown) (unknown) (no (unknown) (unknown) BUN/Creatinine (units (unknown) date) Ratio 15.7 unknown) (unknown) (no (unknown) (unknown) BUN/Creatinine (units (unknown) date) Ratio unknown) (unknown) (no (unknown) (unknown) Baso # (Auto) 100 (units (unknown) date) unknown) (unknown) (no (unknown) (unknown) Baso # (Auto) (units ( unknown) date) unknown) (unknown) (no (unknown) (unknown) Baso % (Auto) 0.8 (units (unknown) date) unknown) (unknown) (no (unknown) (unknown) Baso % (Auto) (units ( unknown) date) unknown) (unknown) (no (unknown) (unknown) Blood Pressure (units (unknown) date) 120/94 H unknown) (unknown) (no (unknown) (unknown) Blood Pressure (units (unknown) date) 123/92 H 127/94 H unknown) 127/94 H (unknown) (no (unknown) (unknown) C-Reactive Protein (units (unknown) date) < 0.5 unknown) (unknown) (no (unknown) (unknown) C-Reactive Protein (units (unknown) date) unknown) (unknown) (no (unknown) (unknown) CHEST: Respiratory (units (unknown) date) excursions unknown) symmetric, CTAB (unknown) (no (unknown) (unknown) CK-MB (CK-2) 11.10 (units (unknown) date) H unknown) (unknown) (no (unknown) (unknown) CK-MB (CK-2) 9.65 (units (unknown) date) H 9.00 H unknown) (unknown) (no (unknown) (unknown) CK-MB (CK-2) Rel (units (unknown) date) Index 1.4 L 1.1 L unknown) (unknown) (no (unknown) (unknown) CK-MB (CK-2) Rel (units (unknown) date) Index 1.5 unknown) (unknown) (no (unknown) (unknown) CK-MB (CK-2) Rel (units (unknown) date) Index unknown) (unknown) (no (unknown) (unknown) CK-MB (CK-2) (units (u nknown) date) unknown) (unknown) (no (unknown) (unknown) CV:? Tachycardic (units (unknown) date) with regular unknown) rhythm, no M/R/G (unknown) (no (unknown) (unknown) Calcium 8.3 L (units ( unknown) date) unknown) (unknown) (no (unknown) (unknown) Calcium (units (unkno wn) date) unknown) (unknown) (no (unknown) (unknown) Carbon Dioxide 33 (units (unknown) date) H unknown) (unknown) (no (unknown) (unknown) Carbon Dioxide (units (unknown) date) unknown) (unknown) (no (unknown) (unknown) Chloride 100 (units (u nknown) date) unknown) (unknown) (no (unknown) (unknown) Chloride (units (unkno wn) date) unknown) (unknown) (no (unknown) (unknown) Chronic abdominal (units (unknown) date) pain unknown) (unknown) (no (unknown) (unknown) Code status (units (un known) date) unknown) (unknown) (no (unknown) (unknown) Const (units (unkno wn) date) unknown) (unknown) (no (unknown) (unknown) Creatinine 0.89 (units (unknown) date) unknown) (unknown) (no (unknown) (unknown) Creatinine (units (unk nown) date) unknown) (unknown) (no (unknown) (unknown) Critical Care (units ( unknown) date) time: unknown) (unknown) (no (unknown) (unknown) Cyclic vomiting (units (unknown) date) syndrome unknown) (unknown) (no (unknown) (unknown) : 1975 (units (unknown) date) Acct:[id number] unknown) (unknown) (no (unknown) (unknown) Date of Service: (units (unknown) date) 07/05/22 unknown) (unknown) (no (unknown) (unknown) Daughter (units (unkno wn) date) Angio-edema unknown) (unknown) (no (unknown) (unknown) Deep Vein (units (unkn own) date) Thrombosis/Pulmonar unknown) y Embolism Present on Admission: No (unknown) (no (unknown) (unknown) Disposition (units (un known) date) unknown) (unknown) (no (unknown) (unknown) ESR 4 (units (unkno wn) date) unknown) (unknown) (no (unknown) (unknown) ESR (units (unkno wn) date) unknown) (unknown) (no (unknown) (unknown) EXTR: warm, well (units (unknown) date) perfused, no C/C/E unknown) (unknown) (no (unknown) (unknown) Echocardiogram (units (unknown) date) done this admission unknown) revealed significant cardiomyopathy felt to (unknown) (no (unknown) (unknown) Echocardiogram (units (unknown) date) performed June unknown) 18 showed new reduced EF, per on-call (unknown) (no (unknown) (unknown) Eos # (Auto) 0 (units (unknown) date) unknown) (unknown) (no (unknown) (unknown) Eos # (Auto) (units (u nknown) date) unknown) (unknown) (no (unknown) (unknown) Eos % (Auto) 0.3 L (units (unknown) date) unknown) (unknown) (no (unknown) (unknown) Eos % (Auto) (units (u nknown) date) unknown) (unknown) (no (unknown) (unknown) Estimated GFR > 60 (units (unknown) date) unknown) (unknown) (no (unknown) (unknown) Estimated GFR (units ( unknown) date) unknown) (unknown) (no (unknown) (unknown) Exam (units (unkno wn) date) unknown) (unknown) (no (unknown) (unknown) Family History (units (unknown) date) (Reviewed 07/06/22 unknown) @ 06:11 by Leslie Torres MD) (unknown) (no (unknown) (unknown) Family history of (units (unknown) date) angioedema unknown) (unknown) (no (unknown) (unknown) Father (units (unkno wn) date) Hypertension unknown) (unknown) (no (unknown) (unknown) Fraction of (units (un known) date) Inspired Oxygen unknown) 0.30 (unknown) (no (unknown) (unknown) Full (units (unkno wn) date) unknown) (unknown) (no (unknown) (unknown) GEN:? Alert, (units (u nknown) date) tearful, very unknown) anxious (unknown) (no (unknown) (unknown) Globulin 3.1 (units (u nknown) date) unknown) (unknown) (no (unknown) (unknown) Globulin (units (unkno wn) date) unknown) (unknown) (no (unknown) (unknown) Glucose 113 H (units ( unknown) date) unknown) (unknown) (no (unknown) (unknown) Glucose (units (unkno wn) date) unknown) (unknown) (no (unknown) (unknown) HEENT:NC, face (units (unknown) date) symmetric, small unknown) ulceration noted to the tongue sublingually (unknown) (no (unknown) (unknown) Hct 33.5 L (units (unk nown) date) unknown) (unknown) (no (unknown) (unknown) Hct (units (unkno wn) date) unknown) (unknown) (no (unknown) (unknown) Hgb 11.4 L (units (unk nown) date) unknown) (unknown) (no (unknown) (unknown) Hgb (units (unkno wn) date) unknown) (unknown) (no (unknown) (unknown) Holding her (units (un known) date) outpatient unknown) antihypertensive therapy.? Blood pressures have ranged (unknown) (no (unknown) (unknown) Hx of appendectomy (units (unknown) date) unknown) (unknown) (no (unknown) (unknown) Hx of (units (unkno wn) date) cholecystectomy unknown) (unknown) (no (unknown) (unknown) Hyperglycemia (units ( unknown) date) unknown) (unknown) (no (unknown) (unknown) Hypertension (units (u nknown) date) unknown) (unknown) (no (unknown) (unknown) Hypotension (units (un known) date) unknown) (unknown) (no (unknown) (unknown) I spent a total of (units (unknown) date) [] minutes of unknown) critical care time on this patient's care (unknown) (no (unknown) (unknown) Interval history: (units (unknown) date) unknown) (unknown) (no (unknown) (unknown) [facility] (units (unknown) date) [address] unknown) [place] [address] (unknown) (no (unknown) (unknown) Laboratory Results (units (unknown) date) - last 24 hr unknown) (unknown) (no (unknown) (unknown) Labs (units (unkno wn) date) unknown) (unknown) (no (unknown) (unknown) Labs: (units (unkno wn) date) unknown) (unknown) (no (unknown) (unknown) Lymph # (Auto) (units (unknown) date) 2500 unknown) (unknown) (no (unknown) (unknown) Lymph # (Auto) (units (unknown) date) unknown) (unknown) (no (unknown) (unknown) Lymph % (Auto) (units (unknown) date) 22.5 L unknown) (unknown) (no (unknown) (unknown) Lymph % (Auto) (units (unknown) date) unknown) (unknown) (no (unknown) (unknown) MCH 31.7 (units (unkno wn) date) unknown) (unknown) (no (unknown) (unknown) MCH (units (unkno wn) date) unknown) (unknown) (no (unknown) (unknown) MCHC 33.8 (units (unkn own) date) unknown) (unknown) (no (unknown) (unknown) MCHC (units (unkno wn) date) unknown) (unknown) (no (unknown) (unknown) MCV 93.6 (units (unkno wn) date) unknown) (unknown) (no (unknown) (unknown) MCV (units (unkno wn) date) unknown) (unknown) (no (unknown) (unknown) 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 (unknown) (no (unknown) (unknown) Marijuana use, (units (unknown) date) continuous unknown) (unknown) (no (unknown) (unknown) Medical History (units (unknown) date) (Reviewed 07/06/22 unknown) @ 06:11 by Leslie Torres MD) (unknown) (no (unknown) (unknown) [place] # (Auto) 600 (units (unknown) date) unknown) (unknown) (no (unknown) (unknown) [place] # (Auto) (units ( unknown) date) unknown) (unknown) (no (unknown) (unknown) [place] % (Auto) 5.8 (units (unknown) date) unknown) (unknown) (no (unknown) (unknown) [place] % (Auto) (units ( unknown) date) unknown) (unknown) (no (unknown) (unknown) Mother Diabetes (units (unknown) date) mellitus unknown) (unknown) (no (unknown) (unknown) NEURO:? 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 (unknown) (no (unknown) (unknown) Neck pain (units (unkn own) date) unknown) (unknown) (no (unknown) (unknown) Neut # (Auto) 7800 (units (unknown) date) H unknown) (unknown) (no (unknown) (unknown) Neut # (Auto) (units ( unknown) date) unknown) (unknown) (no (unknown) (unknown) Neut % (Auto) 70.6 (units (unknown) date) unknown) (unknown) (no (unknown) (unknown) Neut % (Auto) (units ( unknown) date) unknown) (unknown) (no (unknown) (unknown) Objective (units (unkn own) date) unknown) (unknown) (no (unknown) (unknown) On Lovenox (units (unk nown) date) unknown) (unknown) (no (unknown) (unknown) Other Colon cancer (units (unknown) date) unknown) (unknown) (no (unknown) (unknown) Other: (units (unkno wn) date) unknown) (unknown) (no (unknown) (unknown) Oxygen Delivery (units (unknown) date) Method Room Air unknown) (unknown) (no (unknown) (unknown) Oxygen Flow Rate 0 (units (unknown) date) unknown) (unknown) (no (unknown) (unknown) Oxygen Flow Rate (units (unknown) date) unknown) (unknown) (no (unknown) (unknown) PFSH (units (unkno wn) date) unknown) (unknown) (no (unknown) (unknown) Pancreatitis (units (u nknown) date) unknown) (unknown) (no (unknown) (unknown) Patient reports (units (unknown) date) having had 4 unknown) previous presentations, but this was the 1st time (unknown) (no (unknown) (unknown) Patient reports (units (unknown) date) she is not used unknown) cocaine recently and feels it has nothing to do (unknown) (no (unknown) (unknown) Patient (units (unkno wn) date) transitioned from unknown) ICU to acute care overnight. Hope to discharge (unknown) (no (unknown) (unknown) Patient was (units (un known) date) initiated on a unknown) heparin infusion per recommendations by (unknown) (no (unknown) (unknown) Patient: (units (unkno wn) date) Dameon Caputo MR#: unknown) [id number] (unknown) (no (unknown) (unknown) Plt Count 184 (units ( unknown) date) unknown) (unknown) (no (unknown) (unknown) Plt Count (units (unkn own) date) unknown) (unknown) (no (unknown) (unknown) Potassium 3.5 D (units (unknown) date) unknown) (unknown) (no (unknown) (unknown) Potassium (units (unkn own) date) unknown) (unknown) (no (unknown) (unknown) Progress Note (units ( unknown) date) unknown) (unknown) (no (unknown) (unknown) Prophylaxis (units (un known) date) unknown) (unknown) (no (unknown) (unknown) Provider: (units (unkn own) date) Charissa Cordova MD unknown) (unknown) (no (unknown) (unknown) Pulse Oximetry 96 (units (unknown) date) unknown) (unknown) (no (unknown) (unknown) Pulse Oximetry (units (unknown) date) unknown) (unknown) (no (unknown) (unknown) Pulse Rate 104 H (units (unknown) date) 115 H 114 H unknown) (unknown) (no (unknown) (unknown) Pulse Rate 118 H (units (unknown) date) unknown) (unknown) (no (unknown) (unknown) Quality (units (unkno wn) date) unknown) (unknown) (no (unknown) (unknown) RBC 3.58 L (units (unk nown) date) unknown) (unknown) (no (unknown) (unknown) RBC (units (unkno wn) date) unknown) (unknown) (no (unknown) (unknown) RDW 13.4 (units (unkno wn) date) unknown) (unknown) (no (unknown) (unknown) RDW (units (unkno wn) date) unknown) (unknown) (no (unknown) (unknown) Receiving (units (unkn own) date) Wellbutrin. Given unknown) her severe anxiety when I saw her this afternoon, (unknown) (no (unknown) (unknown) Resolved (units (unkno wn) date) unknown) (unknown) (no (unknown) (unknown) Respiratory Rate (units (unknown) date) 16 16 unknown) (unknown) (no (unknown) (unknown) Respiratory Rate (units (unknown) date) unknown) (unknown) (no (unknown) (unknown) Result Diagrams: (units (unknown) date) unknown) (unknown) (no (unknown) (unknown) [place].? She (units (unknown) date) was also initiated unknown) on aspirin and atorvastatin.? Nuclear stress (unknown) (no (unknown) (unknown) SKIN: warm and (units (unknown) date) dry, no rash unknown) (unknown) (no (unknown) (unknown) She is been stable (units (unknown) date) on a heparin drip unknown) which is due to discontinue at 11:00 p.m. (unknown) (no (unknown) (unknown) She states her (units (unknown) date) throat is sore from unknown) the ET tube. She complains of hoarseness (unknown) (no (unknown) (unknown) Signed (units (unkno wn) date) By:<Electronically unknown) signed by Charissa Cordova MD> (unknown) (no (unknown) (unknown) Smoking Status: (units (unknown) date) Current every day unknown) smoker (unknown) (no (unknown) (unknown) Social History (units (unknown) date) (Reviewed 07/06/22 unknown) @ 06:11 by Leslie Torres MD) (unknown) (no (unknown) (unknown) Sodium 137 (units (unk nown) date) unknown) (unknown) (no (unknown) (unknown) Sodium (units (unkno wn) date) unknown) (unknown) (no (unknown) (unknown) Still A1c is 5.4%, (units (unknown) date) hyperglycemia is unknown) likely stress induced. 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 unknown) (unknown) (no (unknown) (unknown) Surgical History (units (unknown) date) (Reviewed 07/06/22 unknown) @ 06:11 by Leslie Torres MD) (unknown) (no (unknown) (unknown) Tak[place]ubo (units (unkn own) date) cardiomyopathy unknown) (unknown) (no (unknown) (unknown) Temperature 99.4 F (units (unknown) date) unknown) (unknown) (no (unknown) (unknown) Temperature (units (un known) date) unknown) (unknown) (no (unknown) (unknown) Time Spent With (units (unknown) date) Patient unknown) (unknown) (no (unknown) (unknown) Total Bilirubin (units (unknown) date) 1.1 unknown) (unknown) (no (unknown) (unknown) Total Bilirubin (units (unknown) date) unknown) (unknown) (no (unknown) (unknown) Total Creatine (units (unknown) date) Kinase 706 H 841 H unknown) (unknown) (no (unknown) (unknown) Total Creatine (units (unknown) date) Kinase 730 H D unknown) (unknown) (no (unknown) (unknown) Total Creatine (units (unknown) date) Kinase unknown) (unknown) (no (unknown) (unknown) Total Protein 6.7 (units (unknown) date) unknown) (unknown) (no (unknown) (unknown) Total Protein (units ( unknown) date) unknown) (unknown) (no (unknown) (unknown) Troponin I 4.220 (units (unknown) date) H* 4.120 H* unknown) (unknown) (no (unknown) (unknown) Troponin I 4.630 (units (unknown) date) H* unknown) (unknown) (no (unknown) (unknown) Troponin I (units (unk nown) date) unknown) (unknown) (no (unknown) (unknown) Unclear etiology (units (unknown) date) for the unknown) angioedema.? C1, C3 and C4 levels have all been checked (unknown) (no (unknown) (unknown) VTE (units (unkno wn) date) unknown) (unknown) (no (unknown) (unknown) Vital Signs (units (un known) date) unknown) (unknown) (no (unknown) (unknown) WBC 11.0 (units (unkno wn) date) unknown) (unknown) (no (unknown) (unknown) WBC (units (unkno wn) date) unknown) (unknown) (no (unknown) (unknown) Yesterday, she (units (unknown) date) became very unknown) confrontational with me. She stated that she was a (unknown) (no (unknown) (unknown) [Embedded Image (units (unknown) date) Not Available] unknown) (unknown) (no (unknown) (unknown) abrasion that was (units (unknown) date) noted the tip of unknown) her tongue has now healed, no residual (unknown) (no (unknown) (unknown) addition of a (units ( unknown) date) heparin infusion, unknown) aspirin, statin therapy, and a nuclear stress (unknown) (no (unknown) (unknown) alcohol intake: (units (unknown) date) current unknown) (unknown) (no (unknown) (unknown) and a peripheral (units (unknown) date) IV placed possible. unknown) (unknown) (no (unknown) (unknown) angiogram.? (units (un known) date) However, Dr. rustam Meredith who read the patient's echocardiogram felt (unknown) (no (unknown) (unknown) are mistreating (units (unknown) date) her. She is unknown) extremely tearful about a multitude of symptoms. (unknown) (no (unknown) (unknown) be stress-induced.? 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 Troponin (unknown) (no (unknown) (unknown) concerning (units (unk nown) date) medically. Will unknown) treat with a hot towel as needed. Lorazepam will (unknown) (no (unknown) (unknown) drip to be (units (unk nown) date) discontinued this unknown) evening. (unknown) (no (unknown) (unknown) explained it to (units (unknown) date) her. unknown) (unknown) (no (unknown) (unknown) extubated.? (units (un known) date) Tele-therapy assistant unknown) recommended transfer to tertiary care facility for (unknown) (no (unknown) (unknown) famotidine.? (units (u nknown) date) Epinephrine was unknown) discontinued secondary to elevated troponin.? (unknown) (no (unknown) (unknown) from (units (unkno wn) date) 105-137/75-86. unknown) (unknown) (no (unknown) (unknown) have a couple of (units (unknown) date) episodes of unknown) hypotension July 06 requiring IVF boluses. (unknown) (no (unknown) (unknown) her episode of (units (unknown) date) angioedema. She is unknown) asking to have the central line discontinued (unknown) (no (unknown) (unknown) household members: (units (unknown) date) spouse unknown) (unknown) (no (unknown) (unknown) increased to 6.8.? 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 She has been treated (unknown) (no (unknown) (unknown) itching and pain (units (unknown) date) central line site unknown) despite dressings having been changed twice. (unknown) (no (unknown) (unknown) labile. She (units (un known) date) frequently unknown) complains about nursing staff and how she believes they (unknown) (no (unknown) (unknown) likely help as (units (unknown) date) well. unknown) (unknown) (no (unknown) (unknown) marijuana who was (units (unknown) date) /17? with unknown) recurrent angioedema requiring (unknown) (no (unknown) (unknown) neck. She (units (unkn own) date) complains of unknown) hyperalgesia to her skin everywhere. She complains of (unknown) (no (unknown) (unknown) needed for (units (unk nown) date) anxiety. unknown) (unknown) (no (unknown) (unknown) nuclear stress (units (unknown) date) test tomorrow. unknown) Yesterday she was very reluctant to stay. (unknown) (no (unknown) (unknown) nursing did not (units (unknown) date) need me to explain unknown) her labs or condition to her, but then when I (unknown) (no (unknown) (unknown) previously and (units (unknown) date) were within normal unknown) limits.? Sedimentation rate was performed (unknown) (no (unknown) (unknown) prior.? Today, (units (unknown) date) patient is unknown) receptive to remaining in the hospital to undergo a (unknown) (no (unknown) (unknown) related to that. (units (unknown) date) She complains that unknown) her tongue is still extremely painful from (unknown) (no (unknown) (unknown) she required (units (u nknown) date) intubation for unknown) airway protection.? Steroids were discontinued (unknown) (no (unknown) (unknown) signs, BT present (units (unknown) date) in all 4 quadrants, unknown) no organomegaly or masses (unknown) (no (unknown) (unknown) specialty (units (unkn own) date) consultation. unknown) (unknown) (no (unknown) (unknown) test to be (units (unk nown) date) performed for for unknown) discharge. Patient has been emotionally very (unknown) (no (unknown) (unknown) testing was (units (un known) date) recommended.? This unknown) will hopefully be performed tomorrow. Heparin (unknown) (no (unknown) (unknown) than 0.5. She may (units (unknown) date) have idiopathic unknown) angioedema. Would benefit from outpatient (unknown) (no (unknown) (unknown) today; this time (units (unknown) date) is exclusive of unknown) procedural time. (unknown) (no (unknown) (unknown) tomorrow once (units ( unknown) date) results of her unknown) stress test are available. (unknown) (no (unknown) (unknown) tongue, cheek, or (units (unknown) date) lip swelling unknown) (unknown) (no (unknown) (unknown) tonight. She (units (u nknown) date) complains today of unknown) severe muscle pain in her arms shoulders and (unknown) (no (unknown) (unknown) very strongly that (units (unknown) date) the patient had unknown) stress cardiomyopathy.? She recommended the (unknown) (no (unknown) (unknown) w/epinephrine, (units (unknown) date) dexamethasone, unknown) benadryl and pepcid IV for angioedema.? She did (unknown) (no (unknown) (unknown) wanted the ET tube (units (unknown) date) removed.? Tele unknown) therapy assistant approved and she was subsequently (unknown) (no (unknown) (unknown) will give an (units (u nknown) date) additional dose of unknown) lorazepam. I have also ordered Seroquel as (unknown) (no (unknown) (unknown) with her current (units (unknown) date) presentation. unknown) (unknown) (no (unknown) (unknown) would expound on (units (unknown) date) her condition she unknown) would get angry and state that I have not (unknown) (no (unknown) (unknown) yesterday and was (units (unknown) date) normal, IgE level unknown) sent and pending. CRP was normal at less (unknown) (no (unknown) (unknown) yesterday due to (units (unknown) date) her emotional unknown) lability.? Continues diphenhydramine and Result panel 736 (unknown) (no date) (unknown) (unknown) 0 /ul (unkn own) (unknown) (no date) (unknown) (unknown) 0.7 % (unkn own) (unknown) (no date) (unknown) (unknown) 1.3 % (unkn own) (unknown) (no date) (unknown) (unknown) 10.9 g/dl (unkn own) (unknown) (no date) (unknown) (unknown) 100 /ul (unkn own) (unknown) (no date) (unknown) (unknown) 13.3 % (unkn own) (unknown) (no date) (unknown) (unknown) 174 x10 3/ul (unkn own) (unknown) (no date) (unknown) (unknown) 2100 /ul (unkn own) (unknown) (no date) (unknown) (unknown) 3.47 x10 6/ul (unkn own) (unknown) (no date) (unknown) (unknown) 31.3 pg (unkn own) (unknown) (no date) (unknown) (unknown) 31.7 % (unkn own) (unknown) (no date) (unknown) (unknown) 32.7 % (unkn own) (unknown) (no date) (unknown) (unknown) 33.3 % (unkn own) (unknown) (no date) (unknown) (unknown) 400 /ul (unkn own) (unknown) (no date) (unknown) (unknown) 4000 /ul (unkn own) (unknown) (no date) (unknown) (unknown) 5.6 % (unkn own) (unknown) (no date) (unknown) (unknown) 6.6 x10 3/ul (unkn own) (unknown) (no date) (unknown) (unknown) 6.6 x10 3/ul (unkn own) (unknown) (no date) (unknown) (unknown) 60.7 % (unkn own) (unknown) (no date) (unknown) (unknown) 94.2 fl (unkn own) Result panel 737 (unknown) (no date) (unknown) (unknown) > 60 ml/min (unkn own) (unknown) (no date) (unknown) (unknown) > 60 ml/min (unkn own) (unknown) (no date) (unknown) (unknown) 0.91 mg/dl (unkn own) (unknown) (no date) (unknown) (unknown) 1.2 (units unknown) (unknown) (unknown) (no date) (unknown) (unknown) 1.4 mg/dl (unkn own) (unknown) (no date) (unknown) (unknown) 101 mmol/l (unkn own) (unknown) (no date) (unknown) (unknown) 135 mmol/l (unkn own) (unknown) (no date) (unknown) (unknown) 135 mmol/l (unkn own) (unknown) (no date) (unknown) (unknown) 151 mg/dl (unkn own) (unknown) (no date) (unknown) (unknown) 151 mg/dl (unkn own) (unknown) (no date) (unknown) (unknown) 26 mmol/l (unkn own) (unknown) (no date) (unknown) (unknown) 28 iu/l (unkn own) (unknown) (no date) (unknown) (unknown) 3.3 g/dl (unkn own) (unknown) (no date) (unknown) (unknown) 3.8 g/dl (unkn own) (unknown) (no date) (unknown) (unknown) 3.8 mmol/l (unkn own) (unknown) (no date) (unknown) (unknown) 33 iu/l (unkn own) (unknown) (no date) (unknown) (unknown) 63 u/l (unkn own) (unknown) (no date) (unknown) (unknown) 7.1 g/dl (unkn own) (unknown) (no date) (unknown) (unknown) 8.3 mg/dl (unkn own) (unknown) (no date) (unknown) (unknown) 9 mg/dl (unkn own) (unknown) (no date) (unknown) (unknown) 9.9 (units unknown) (unknown) Result panel 738 (unknown) (no date) (unknown) (unknown) (no value) (units (un known) unknown) (unknown) (no date) (unknown) (unknown) <25 Squamous (units ( unknown) Epithelial unknown) Cells/LPF, Acceptable (unknown) (no date) (unknown) (unknown) Light growth - (units (unknown) Mixed resident unknown) farhat (unknown) (no date) (unknown) (unknown) Occasional WBC (units (unknown) seen unknown) Result panel 739 (unknown) (no (unknown) (unknown) (no value) (units (unk nown) date) unknown) (unknown) (no (unknown) (unknown) (past 8 hours): (units (unknown) date) unknown) (unknown) (no (unknown) (unknown) 02:00 02:00 (units (un known) date) unknown) (unknown) (no (unknown) (unknown) 08:07 (units (unkno wn) date) unknown) (unknown) (no (unknown) (unknown) 08:25 07/09/22 (units (unknown) date) unknown) (unknown) (no (unknown) (unknown) 10:56 07/09/22 (units (unknown) date) unknown) (unknown) (no (unknown) (unknown) 07/09/22 02:00 (units (unknown) date) unknown) (unknown) (no (unknown) (unknown) 07/09/22 07/09/22 (units (unknown) date) unknown) (unknown) (no (unknown) (unknown) 07/09/22 (units (unkno wn) date) unknown) (unknown) (no (unknown) (unknown) 11:00 (units (unkno wn) date) unknown) (unknown) (no (unknown) (unknown) [id number] (units (unkno wn) date) unknown) (unknown) (no (unknown) (unknown) 46-year-old female (units (unknown) date) with polysubstance unknown) dependence specifically cocaine and (unknown) (no (unknown) (unknown) ALT 28 (units (unkno wn) date) unknown) (unknown) (no (unknown) (unknown) AST 33 (units (unkno wn) date) unknown) (unknown) (no (unknown) (unknown) Abscess (units (unkno wn) date) unknown) (unknown) (no (unknown) (unknown) Age/Sex: 46 / F (units (unknown) date) unknown) (unknown) (no (unknown) (unknown) Albumin 3.8 (units (un known) date) unknown) (unknown) (no (unknown) (unknown) Albumin/Globulin (units (unknown) date) Ratio 1.2 unknown) (unknown) (no (unknown) (unknown) Alkaline (units (unkno wn) date) Phosphatase 63 unknown) (unknown) (no (unknown) (unknown) Angioedema with (units (unknown) date) acute hypoxic unknown) respiratory failure (unknown) (no (unknown) (unknown) Anxiety (units (unkno wn) date) unknown) (unknown) (no (unknown) (unknown) Appears to be (units ( unknown) date) spasm from a stiff unknown) neck rather than anything significantly (unknown) (no (unknown) (unknown) Assessment + Plan (units (unknown) date) narrative: unknown) (unknown) (no (unknown) (unknown) Assessment + Plan (units (unknown) date) unknown) (unknown) (no (unknown) (unknown) BUN 9 (units (unkno wn) date) unknown) (unknown) (no (unknown) (unknown) BUN/Creatinine (units (unknown) date) Ratio 9.9 unknown) (unknown) (no (unknown) (unknown) Baso # (Auto) 0 (units (unknown) date) unknown) (unknown) (no (unknown) (unknown) Baso % (Auto) 0.7 (units (unknown) date) unknown) (unknown) (no (unknown) (unknown) Blood Pressure (units (unknown) date) 103/70 unknown) (unknown) (no (unknown) (unknown) Blood Pressure (units (unknown) date) unknown) (unknown) (no (unknown) (unknown) CHEST: Respiratory (units (unknown) date) excursions unknown) symmetric (unknown) (no (unknown) (unknown) CV:? Tachycardic (units (unknown) date) with regular rhythm unknown) (unknown) (no (unknown) (unknown) Calcium 8.3 L (units ( unknown) date) unknown) (unknown) (no (unknown) (unknown) Carbon Dioxide 26 (units (unknown) date) unknown) (unknown) (no (unknown) (unknown) Chloride 101 (units (u nknown) date) unknown) (unknown) (no (unknown) (unknown) Chronic abdominal (units (unknown) date) pain unknown) (unknown) (no (unknown) (unknown) Code status (units (un known) date) unknown) (unknown) (no (unknown) (unknown) Const (units (unkno wn) date) unknown) (unknown) (no (unknown) (unknown) Continues (units (unkn own) date) diphenhydramine and unknown) famotidine.? Epinephrine was discontinued (unknown) (no (unknown) (unknown) Creatinine 0.91 (units (unknown) date) unknown) (unknown) (no (unknown) (unknown) Critical Care (units ( unknown) date) time: unknown) (unknown) (no (unknown) (unknown) Cyclic vomiting (units (unknown) date) syndrome unknown) (unknown) (no (unknown) (unknown) : 1975 (units (unknown) date) Acct:[id number] unknown) (unknown) (no (unknown) (unknown) Date Patient Seen: (units (unknown) date) 07/09/22 unknown) (unknown) (no (unknown) (unknown) Date of Service: (units (unknown) date) 07/05/22 unknown) (unknown) (no (unknown) (unknown) Daughter (units (unkno wn) date) Angio-edema unknown) (unknown) (no (unknown) (unknown) Deep Vein (units (unkn own) date) Thrombosis/Pulmonar unknown) y Embolism Present on Admission: No (unknown) (no (unknown) (unknown) Disposition (units (un known) date) unknown) (unknown) (no (unknown) (unknown) EXTR: warm, well (units (unknown) date) perfused, no C/C/E unknown) (unknown) (no (unknown) (unknown) Echocardiogram (units (unknown) date) done this admission unknown) revealed significant cardiomyopathy felt to (unknown) (no (unknown) (unknown) Echocardiogram (units (unknown) date) performed June) 18 showed new reduced EF, per on-call (unknown) (no (unknown) (unknown) Eos # (Auto) 100 (units (unknown) date) unknown) (unknown) (no (unknown) (unknown) Eos % (Auto) 1.3 L (units (unknown) date) unknown) (unknown) (no (unknown) (unknown) Estimated GFR > 60 (units (unknown) date) unknown) (unknown) (no (unknown) (unknown) Exam (units (unkno wn) date) unknown) (unknown) (no (unknown) (unknown) Family History (units (unknown) date) (Reviewed 07/06/22 unknown) @ 06:11 by Leslie Torres MD) (unknown) (no (unknown) (unknown) Family history of (units (unknown) date) angioedema unknown) (unknown) (no (unknown) (unknown) Father (units (unkno wn) date) Hypertension unknown) (unknown) (no (unknown) (unknown) Fraction of (units (un known) date) Inspired Oxygen unknown) 0.30 (unknown) (no (unknown) (unknown) Full (units (unkno wn) date) unknown) (unknown) (no (unknown) (unknown) GEN:? Alert, (units (u nknown) date) tearful, very unknown) anxious (unknown) (no (unknown) (unknown) Globulin 3.3 (units (u nknown) date) unknown) (unknown) (no (unknown) (unknown) Glucose 151 H (units ( unknown) date) unknown) (unknown) (no (unknown) (unknown) HEENT:NC, face (units (unknown) date) symmetric, small unknown) ulceration noted to the tongue sublingually (unknown) (no (unknown) (unknown) Hct 32.7 L (units (unk nown) date) unknown) (unknown) (no (unknown) (unknown) Hgb 10.9 L (units (unk nown) date) unknown) (unknown) (no (unknown) (unknown) Holding her (units (un known) date) outpatient unknown) antihypertensive therapy.? Blood pressures have ranged (unknown) (no (unknown) (unknown) Hx of appendectomy (units (unknown) date) unknown) (unknown) (no (unknown) (unknown) Hx of (units (unkno wn) date) cholecystectomy unknown) (unknown) (no (unknown) (unknown) Hyperglycemia (units ( unknown) date) unknown) (unknown) (no (unknown) (unknown) Hypertension (units (u nknown) date) unknown) (unknown) (no (unknown) (unknown) Hypotension (units (un known) date) unknown) (unknown) (no (unknown) (unknown) I spent a total of (units (unknown) date) [] minutes of unknown) critical care time on this patient's care (unknown) (no (unknown) (unknown) Interval history: (units (unknown) date) unknown) (unknown) (no (unknown) (unknown) [facility] (units (unknown) date) [address] unknown) [place] [address] (unknown) (no (unknown) (unknown) [facility] at this time (units (unknown) date) for further unknown) evaluation of her heart. (unknown) (no (unknown) (unknown) Laboratory Results (units (unknown) date) - last 24 hr unknown) (unknown) (no (unknown) (unknown) Labs (units (unkno wn) date) unknown) (unknown) (no (unknown) (unknown) Labs: (units (unkno wn) date) unknown) (unknown) (no (unknown) (unknown) Lymph # (Auto) (units (unknown) date) 2100 unknown) (unknown) (no (unknown) (unknown) Lymph % (Auto) (units (unknown) date) 31.7 unknown) (unknown) (no (unknown) (unknown) MCH 31.3 (units (unkno wn) date) unknown) (unknown) (no (unknown) (unknown) MCHC 33.3 (units (unkn own) date) unknown) (unknown) (no (unknown) (unknown) MCV 94.2 (units (unkno wn) date) unknown) (unknown) (no (unknown) (unknown) 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 (unknown) (no (unknown) (unknown) Marijuana use, (units (unknown) date) continuous unknown) (unknown) (no (unknown) (unknown) Medical History (units (unknown) date) (Reviewed 07/06/22 unknown) @ 06:11 by Leslie Torres MD) (unknown) (no (unknown) (unknown) [place] # (Auto) 400 (units (unknown) date) unknown) (unknown) (no (unknown) (unknown) [place] % (Auto) 5.6 (units (unknown) date) unknown) (unknown) (no (unknown) (unknown) Mother Diabetes (units (unknown) date) mellitus unknown) (unknown) (no (unknown) (unknown) NEURO:? 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 (unknown) (no (unknown) (unknown) Neck pain (units (unkn own) date) unknown) (unknown) (no (unknown) (unknown) Neut # (Auto) 4000 (units (unknown) date) unknown) (unknown) (no (unknown) (unknown) Neut % (Auto) 60.7 (units (unknown) date) unknown) (unknown) (no (unknown) (unknown) Objective (units (unkn own) date) unknown) (unknown) (no (unknown) (unknown) On Lovenox (units (unk nown) date) unknown) (unknown) (no (unknown) (unknown) Other Colon cancer (units (unknown) date) unknown) (unknown) (no (unknown) (unknown) Other: (units (unkno wn) date) unknown) (unknown) (no (unknown) (unknown) Oxygen Delivery (units (unknown) date) Method Room Air unknown) (unknown) (no (unknown) (unknown) Oxygen Delivery (units (unknown) date) Method unknown) (unknown) (no (unknown) (unknown) Oxygen Flow Rate 0 (units (unknown) date) unknown) (unknown) (no (unknown) (unknown) PFSH (units (unkno wn) date) unknown) (unknown) (no (unknown) (unknown) Pancreatitis (units (u nknown) date) unknown) (unknown) (no (unknown) (unknown) Patient reports (units (unknown) date) having had 4 unknown) previous presentations, but this was the 1st time (unknown) (no (unknown) (unknown) Patient reports (units (unknown) date) she is not used unknown) cocaine recently and feels it has nothing to do (unknown) (no (unknown) (unknown) Patient (units (unkno wn) date) transitioned from unknown) ICU to acute care overnight. Hope to discharge (unknown) (no (unknown) (unknown) Patient was (units (un known) date) initiated on a unknown) heparin infusion per recommendations by (unknown) (no (unknown) (unknown) Patient: (units (unkno wn) date) Dameon Caputo MR#: unknown) [id number] (unknown) (no (unknown) (unknown) Plt Count 174 (units ( unknown) date) unknown) (unknown) (no (unknown) (unknown) Potassium 3.8 (units ( unknown) date) unknown) (unknown) (no (unknown) (unknown) Progress Note (units ( unknown) date) unknown) (unknown) (no (unknown) (unknown) Prophylaxis (units (un known) date) unknown) (unknown) (no (unknown) (unknown) Provider: (units (unkn own) date) Aleks Iyer D.O. unknown) (unknown) (no (unknown) (unknown) Pulse Oximetry 98 (units (unknown) date) unknown) (unknown) (no (unknown) (unknown) Pulse Oximetry (units (unknown) date) unknown) (unknown) (no (unknown) (unknown) Quality (units (unkno wn) date) unknown) (unknown) (no (unknown) (unknown) RBC 3.47 L (units (unk nown) date) unknown) (unknown) (no (unknown) (unknown) RDW 13.3 (units (unkno wn) date) unknown) (unknown) (no (unknown) (unknown) Receiving (units (unkn own) date) Wellbutrin. Given unknown) her severe anxiety when I saw her this afternoon, (unknown) (no (unknown) (unknown) Resolved (units (unkno wn) date) unknown) (unknown) (no (unknown) (unknown) Result Diagrams: (units (unknown) date) unknown) (unknown) (no (unknown) (unknown) Masoud.? She (units (unknown) date) was also initiated unknown) on aspirin and atorvastatin.? Nuclear stress (unknown) (no (unknown) (unknown) SKIN: warm and (units (unknown) date) dry, no rash unknown) (unknown) (no (unknown) (unknown) Sedimentation rate (units (unknown) date) was performed unknown) yesterday and was normal, IgE level sent and (unknown) (no (unknown) (unknown) Signed By: (units (unk nown) date) unknown) (unknown) (no (unknown) (unknown) Smoking Status: (units (unknown) date) Current every day unknown) smoker (unknown) (no (unknown) (unknown) Social History (units (unknown) date) (Reviewed 07/06/22 unknown) @ 06:11 by Leslie Torres MD) (unknown) (no (unknown) (unknown) Sodium 135 L (units (u nknown) date) unknown) (unknown) (no (unknown) (unknown) Still A1c is 5.4%, (units (unknown) date) hyperglycemia is unknown) likely stress induced. 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 unknown) (unknown) (no (unknown) (unknown) Surgical History (units (unknown) date) (Reviewed 07/06/22 unknown) @ 06:11 by Leslie Torres MD) (unknown) (no (unknown) (unknown) Tak[place]ubo (units (unkn own) date) cardiomyopathy unknown) (unknown) (no (unknown) (unknown) Temperature 100.4 (units (unknown) date) F H 98.8 F unknown) (unknown) (no (unknown) (unknown) Temperature (units (un known) date) unknown) (unknown) (no (unknown) (unknown) Time Spent With (units (unknown) date) Patient unknown) (unknown) (no (unknown) (unknown) Total Bilirubin (units (unknown) date) 1.4 H unknown) (unknown) (no (unknown) (unknown) Total Protein 7.1 (units (unknown) date) unknown) (unknown) (no (unknown) (unknown) VTE (units (unkno wn) date) unknown) (unknown) (no (unknown) (unknown) Vital Signs (units (un known) date) unknown) (unknown) (no (unknown) (unknown) WBC 6.6 (units (unkno wn) date) unknown) (unknown) (no (unknown) (unknown) Would benefit from (units (unknown) date) outpatient unknown) specialty consultation. (unknown) (no (unknown) (unknown) [Embedded Image (units (unknown) date) Not Available] unknown) (unknown) (no (unknown) (unknown) abrasion that was (units (unknown) date) noted the tip of unknown) her tongue has now healed, no residual (unknown) (no (unknown) (unknown) addition of a (units ( unknown) date) heparin infusion, unknown) aspirin, statin therapy, and a nuclear stress (unknown) (no (unknown) (unknown) alcohol intake: (units (unknown) date) current unknown) (unknown) (no (unknown) (unknown) and C4 levels have (units (unknown) date) all been checked unknown) previously and were within normal limits.? (unknown) (no (unknown) (unknown) angiogram.? (units (un known) date) However, unknown) Masoud who read the patient's echocardiogram felt (unknown) (no (unknown) (unknown) be stress-induced.? (units (unknown) date) Ejection fraction unknown) was decreased to 30-35%, which is new from (unknown) (no (unknown) (unknown) becomes upset when (units (unknown) date) I cannot unknown) definitively state that as the cause. We tried to (unknown) (no (unknown) (unknown) 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? Troponin (unknown) (no (unknown) (unknown) concerning (units (unk nown) date) medically. Will unknown) treat with a hot towel as needed. Lorazepam will (unknown) (no (unknown) (unknown) drip to be (units (unk nown) date) discontinued this unknown) evening. (unknown) (no (unknown) (unknown) emotionally very (units (unknown) date) labile, she wishes unknown) for answers as to why she keeps needing (unknown) (no (unknown) (unknown) extubated.? (units (un known) date) Tele-therapy assistant unknown) recommended transfer to tertiary care facility for (unknown) (no (unknown) (unknown) focus on her heart (units (unknown) date) today and explain unknown) the current testing. She is agreeable for (unknown) (no (unknown) (unknown) from (units (unkno wn) date) 105-137/75-86. unknown) (unknown) (no (unknown) (unknown) have a couple of (units (unknown) date) episodes of unknown) hypotension July 06 requiring IVF boluses. (unknown) (no (unknown) (unknown) hospitalizations. (units (unknown) date) She blames unknown) recurrent angioedema on her covid vaccine. She (unknown) (no (unknown) (unknown) household members: (units (unknown) date) spouse unknown) (unknown) (no (unknown) (unknown) increased to 6.8.? 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 She has been treated (unknown) (no (unknown) (unknown) likely help as (units (unknown) date) well. unknown) (unknown) (no (unknown) (unknown) marijuana who was (units (unknown) date) [id number]? with unknown) recurrent angioedema requiring (unknown) (no (unknown) (unknown) needed for (units (unk nown) date) anxiety. unknown) (unknown) (no (unknown) (unknown) nuclear stress (units (unknown) date) test tomorrow. unknown) Yesterday she was very reluctant to stay. (unknown) (no (unknown) (unknown) pending. CRP was (units (unknown) date) normal at less than unknown) 0.5. She may have idiopathic angioedema. (unknown) (no (unknown) (unknown) prior.? Today, (units (unknown) date) patient is unknown) receptive to remaining in the hospital to undergo a (unknown) (no (unknown) (unknown) secondary to (units (u nknown) date) elevated troponin.? unknown) Unclear etiology for the angioedema.? C1, C3 (unknown) (no (unknown) (unknown) she is recommended (units (unknown) date) for [facility] and we are unknown) attempting to transfer. Patient has been (unknown) (no (unknown) (unknown) she required (units (u nknown) date) intubation for unknown) airway protection.? Steroids were discontinued due. (unknown) (no (unknown) (unknown) test to be (units (unkn own) date) performed today unknown) which was read as abnormal by the satellite communications engineer today, (unknown) (no (unknown) (unknown) testing was (units (un known) date) recommended.? This unknown) will hopefully be performed tomorrow. Heparin (unknown) (no (unknown) (unknown) today; this time (units (unknown) date) is exclusive of unknown) procedural time. (unknown) (no (unknown) (unknown) tomorrow once (units ( unknown) date) results of her unknown) stress test are available. (unknown) (no (unknown) (unknown) tongue, cheek, or (units (unknown) date) lip swelling unknown) (unknown) (no (unknown) (unknown) very strongly that (units (unknown) date) the patient had unknown) stress cardiomyopathy.? She recommended the (unknown) (no (unknown) (unknown) w/epinephrine, (units (unknown) date) dexamethasone, unknown) benadryl and pepcid IV for angioedema.? She did (unknown) (no (unknown) (unknown) wanted the ET tube (units (unknown) date) removed.? Tele unknown) therapy assistant approved and she was subsequently (unknown) (no (unknown) (unknown) will give an (units (u nknown) date) additional dose of unknown) lorazepam. I have also ordered Seroquel as (unknown) (no (unknown) (unknown) with her current (units (unknown) date) presentation. unknown) Result panel 740 (unknown) (no (unknown) (unknown) (no value) (units (unk nown) date) unknown) (unknown) (no (unknown) (unknown) (past 8 hours): (units (unknown) date) unknown) (unknown) (no (unknown) (unknown) 02:00 02:00 (units (un known) date) unknown) (unknown) (no (unknown) (unknown) 08:07 (units (unkno wn) date) unknown) (unknown) (no (unknown) (unknown) 08:25 07/09/22 (units (unknown) date) unknown) (unknown) (no (unknown) (unknown) 10:56 07/09/22 (units (unknown) date) unknown) (unknown) (no (unknown) (unknown) 07/09/22 02:00 (units (unknown) date) unknown) (unknown) (no (unknown) (unknown) 07/09/22 07/09/22 (units (unknown) date) unknown) (unknown) (no (unknown) (unknown) 07/09/22 1530 (units ( unknown) date) unknown) (unknown) (no (unknown) (unknown) 07/09/22 (units (unkno wn) date) unknown) (unknown) (no (unknown) (unknown) 11:00 (units (unkno wn) date) unknown) (unknown) (no (unknown) (unknown) [id number] (units (unkno wn) date) unknown) (unknown) (no (unknown) (unknown) 46-year-old female (units (unknown) date) with polysubstance unknown) dependence specifically cocaine and (unknown) (no (unknown) (unknown) ALT 28 (units (unkno wn) date) unknown) (unknown) (no (unknown) (unknown) AST 33 (units (unkno wn) date) unknown) (unknown) (no (unknown) (unknown) Abscess (units (unkno wn) date) unknown) (unknown) (no (unknown) (unknown) Age/Sex: 46 / F (units (unknown) date) unknown) (unknown) (no (unknown) (unknown) Albumin 3.8 (units (un known) date) unknown) (unknown) (no (unknown) (unknown) Albumin/Globulin (units (unknown) date) Ratio 1.2 unknown) (unknown) (no (unknown) (unknown) Alkaline (units (unkno wn) date) Phosphatase 63 unknown) (unknown) (no (unknown) (unknown) Angioedema with (units (unknown) date) acute hypoxic unknown) respiratory failure (unknown) (no (unknown) (unknown) Anxiety (units (unkno wn) date) unknown) (unknown) (no (unknown) (unknown) Appears to be (units ( unknown) date) spasm from a stiff unknown) neck rather than anything significantly (unknown) (no (unknown) (unknown) Assessment + Plan (units (unknown) date) narrative: unknown) (unknown) (no (unknown) (unknown) Assessment + Plan (units (unknown) date) unknown) (unknown) (no (unknown) (unknown) BUN 9 (units (unkno wn) date) unknown) (unknown) (no (unknown) (unknown) BUN/Creatinine (units (unknown) date) Ratio 9.9 unknown) (unknown) (no (unknown) (unknown) Baso # (Auto) 0 (units (unknown) date) unknown) (unknown) (no (unknown) (unknown) Baso % (Auto) 0.7 (units (unknown) date) unknown) (unknown) (no (unknown) (unknown) Blood Pressure (units (unknown) date) 103/70 unknown) (unknown) (no (unknown) (unknown) Blood Pressure (units (unknown) date) unknown) (unknown) (no (unknown) (unknown) CHEST: Respiratory (units (unknown) date) excursions unknown) symmetric (unknown) (no (unknown) (unknown) CV:? Tachycardic (units (unknown) date) with regular rhythm unknown) (unknown) (no (unknown) (unknown) Calcium 8.3 L (units ( unknown) date) unknown) (unknown) (no (unknown) (unknown) Carbon Dioxide 26 (units (unknown) date) unknown) (unknown) (no (unknown) (unknown) Chloride 101 (units (u nknown) date) unknown) (unknown) (no (unknown) (unknown) Chronic abdominal (units (unknown) date) pain unknown) (unknown) (no (unknown) (unknown) Code status (units (un known) date) unknown) (unknown) (no (unknown) (unknown) Const (units (unkno wn) date) unknown) (unknown) (no (unknown) (unknown) Creatinine 0.91 (units (unknown) date) unknown) (unknown) (no (unknown) (unknown) Critical Care (units ( unknown) date) time: unknown) (unknown) (no (unknown) (unknown) Cyclic vomiting (units (unknown) date) syndrome unknown) (unknown) (no (unknown) (unknown) : 1975 (units (unknown) date) Acct:[id number] unknown) (unknown) (no (unknown) (unknown) Date Patient Seen: (units (unknown) date) 07/09/22 unknown) (unknown) (no (unknown) (unknown) Date of Service: (units (unknown) date) 07/05/22 unknown) (unknown) (no (unknown) (unknown) Daughter (units (unkno wn) date) Angio-edema unknown) (unknown) (no (unknown) (unknown) Deep Vein (units (unkn own) date) Thrombosis/Pulmonar unknown) y Embolism Present on Admission: No (unknown) (no (unknown) (unknown) Disposition (units (un known) date) unknown) (unknown) (no (unknown) (unknown) EXTR: warm, well (units (unknown) date) perfused, no C/C/E unknown) (unknown) (no (unknown) (unknown) Echocardiogram (units (unknown) date) done this admission unknown) revealed significant cardiomyopathy felt to (unknown) (no (unknown) (unknown) Echocardiogram (units (unknown) date) performed June) 18 showed new reduced EF, per on-call (unknown) (no (unknown) (unknown) Eos # (Auto) 100 (units (unknown) date) unknown) (unknown) (no (unknown) (unknown) Eos % (Auto) 1.3 L (units (unknown) date) unknown) (unknown) (no (unknown) (unknown) Estimated GFR > 60 (units (unknown) date) unknown) (unknown) (no (unknown) (unknown) Exam (units (unkno wn) date) unknown) (unknown) (no (unknown) (unknown) Family History (units (unknown) date) (Reviewed 07/06/22 unknown) @ 06:11 by Leslie Torres MD) (unknown) (no (unknown) (unknown) Family history of (units (unknown) date) angioedema unknown) (unknown) (no (unknown) (unknown) Father (units (unkno wn) date) Hypertension unknown) (unknown) (no (unknown) (unknown) Fraction of (units (un known) date) Inspired Oxygen unknown) 0.30 (unknown) (no (unknown) (unknown) Full (units (unkno wn) date) unknown) (unknown) (no (unknown) (unknown) GEN:? Alert, (units (u nknown) date) tearful, very unknown) anxious (unknown) (no (unknown) (unknown) Globulin 3.3 (units (u nknown) date) unknown) (unknown) (no (unknown) (unknown) Glucose 151 H (units ( unknown) date) unknown) (unknown) (no (unknown) (unknown) HEENT:NC, face (units (unknown) date) symmetric, small unknown) ulceration noted to the tongue sublingually (unknown) (no (unknown) (unknown) Hct 32.7 L (units (unk nown) date) unknown) (unknown) (no (unknown) (unknown) Hgb 10.9 L (units (unk nown) date) unknown) (unknown) (no (unknown) (unknown) Holding her (units (un known) date) outpatient unknown) antihypertensive therapy.? Blood pressures have ranged (unknown) (no (unknown) (unknown) Hx of appendectomy (units (unknown) date) unknown) (unknown) (no (unknown) (unknown) Hx of (units (unkno wn) date) cholecystectomy unknown) (unknown) (no (unknown) (unknown) Hyperglycemia (units ( unknown) date) unknown) (unknown) (no (unknown) (unknown) Hypertension (units (u nknown) date) unknown) (unknown) (no (unknown) (unknown) Hypotension (units (un known) date) unknown) (unknown) (no (unknown) (unknown) I spent a total of (units (unknown) date) [] minutes of unknown) critical care time on this patient's care (unknown) (no (unknown) (unknown) Interval history: (units (unknown) date) unknown) (unknown) (no (unknown) (unknown) [facility] (units (unknown) date) [address] [place] [address] unknown) [place] [address] (unknown) (no (unknown) (unknown) [facility] at this time (units (unknown) date) for further unknown) evaluation of her heart. (unknown) (no (unknown) (unknown) Laboratory Results (units (unknown) date) - last 24 hr unknown) (unknown) (no (unknown) (unknown) Labs (units (unkno wn) date) unknown) (unknown) (no (unknown) (unknown) Labs: (units (unkno wn) date) unknown) (unknown) (no (unknown) (unknown) Lymph # (Auto) (units (unknown) date) 2100 unknown) (unknown) (no (unknown) (unknown) Lymph % (Auto) (units (unknown) date) 31.7 unknown) (unknown) (no (unknown) (unknown) MCH 31.3 (units (unkno wn) date) unknown) (unknown) (no (unknown) (unknown) MCHC 33.3 (units (unkn own) date) unknown) (unknown) (no (unknown) (unknown) MCV 94.2 (units (unkno wn) date) unknown) (unknown) (no (unknown) (unknown) 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 (unknown) (no (unknown) (unknown) Marijuana use, (units (unknown) date) continuous unknown) (unknown) (no (unknown) (unknown) Medical History (units (unknown) date) (Reviewed 07/06/22 unknown) @ 06:11 by Leslie Torres MD) (unknown) (no (unknown) (unknown) [place] # (Auto) 400 (units (unknown) date) unknown) (unknown) (no (unknown) (unknown) [place] % (Auto) 5.6 (units (unknown) date) unknown) (unknown) (no (unknown) (unknown) Mother Diabetes (units (unknown) date) mellitus unknown) (unknown) (no (unknown) (unknown) NEURO:? 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 (unknown) (no (unknown) (unknown) Neck pain (units (unkn own) date) unknown) (unknown) (no (unknown) (unknown) Neut # (Auto) 4000 (units (unknown) date) unknown) (unknown) (no (unknown) (unknown) Neut % (Auto) 60.7 (units (unknown) date) unknown) (unknown) (no (unknown) (unknown) Objective (units (unkn own) date) unknown) (unknown) (no (unknown) (unknown) On Lovenox (units (unk nown) date) unknown) (unknown) (no (unknown) (unknown) Other Colon cancer (units (unknown) date) unknown) (unknown) (no (unknown) (unknown) Other: (units (unkno wn) date) unknown) (unknown) (no (unknown) (unknown) Oxygen Delivery (units (unknown) date) Method Room Air unknown) (unknown) (no (unknown) (unknown) Oxygen Delivery (units (unknown) date) Method unknown) (unknown) (no (unknown) (unknown) Oxygen Flow Rate 0 (units (unknown) date) unknown) (unknown) (no (unknown) (unknown) PFSH (units (unkno wn) date) unknown) (unknown) (no (unknown) (unknown) PSYCH: mild (units (un known) date) paranoia and fear / unknown) distrust of medical providers. (unknown) (no (unknown) (unknown) Pancreatitis (units (u nknown) date) unknown) (unknown) (no (unknown) (unknown) Patient reports (units (unknown) date) having had 4 unknown) previous presentations, but this was the 1st time (unknown) (no (unknown) (unknown) Patient reports (units (unknown) date) she is not used unknown) cocaine recently and feels it has nothing to do (unknown) (no (unknown) (unknown) Patient (units (unkno wn) date) transitioned from unknown) ICU to acute care overnight. Hope to discharge (unknown) (no (unknown) (unknown) Patient was (units (un known) date) initiated on a unknown) heparin infusion per recommendations by (unknown) (no (unknown) (unknown) Patient: (units (unkno wn) date) Dameon Caputo MR#: unknown) [id number] (unknown) (no (unknown) (unknown) Plt Count 174 (units ( unknown) date) unknown) (unknown) (no (unknown) (unknown) Potassium 3.8 (units ( unknown) date) unknown) (unknown) (no (unknown) (unknown) Progress Note (units ( unknown) date) unknown) (unknown) (no (unknown) (unknown) Prophylaxis (units (un known) date) unknown) (unknown) (no (unknown) (unknown) Provider: (units (unkn own) date) Aleks Iyer D.O. unknown) (unknown) (no (unknown) (unknown) Pulse Oximetry 98 (units (unknown) date) unknown) (unknown) (no (unknown) (unknown) Pulse Oximetry (units (unknown) date) unknown) (unknown) (no (unknown) (unknown) Quality (units (unkno wn) date) unknown) (unknown) (no (unknown) (unknown) RBC 3.47 L (units (unk nown) date) unknown) (unknown) (no (unknown) (unknown) RDW 13.3 (units (unkno wn) date) unknown) (unknown) (no (unknown) (unknown) Receiving (units (unkn own) date) Wellbutrin. Given unknown) her severe anxiety when I saw her this afternoon, (unknown) (no (unknown) (unknown) Resolved (units (unkno wn) date) unknown) (unknown) (no (unknown) (unknown) Result Diagrams: (units (unknown) date) unknown) (unknown) (no (unknown) (unknown) Meredith.? She (units (unknown) date) was also initiated unknown) on aspirin and atorvastatin.? Nuclear stress (unknown) (no (unknown) (unknown) SKIN: warm and (units (unknown) date) dry, no rash unknown) (unknown) (no (unknown) (unknown) Signed (units (unkno wn) date) By:<Electronically unknown) signed by Aleks Iyer D.O.> (unknown) (no (unknown) (unknown) Smoking Status: (units (unknown) date) Current every day unknown) smoker (unknown) (no (unknown) (unknown) Social History (units (unknown) date) (Reviewed 07/06/22 unknown) @ 06:11 by Leslie Torres MD) (unknown) (no (unknown) (unknown) Sodium 135 L (units (u nknown) date) unknown) (unknown) (no (unknown) (unknown) Still A1c is 5.4%, (units (unknown) date) hyperglycemia is unknown) likely stress induced. (unknown) (no (unknown) (unknown) Stress testing (units (unknown) date) today was abnormal unknown) and patient is recommended for [facility], pending 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 unknown) (unknown) (no (unknown) (unknown) Surgical History (units (unknown) date) (Reviewed 07/06/22 unknown) @ 06:11 by Leslie Torres MD) (unknown) (no (unknown) (unknown) Takotsubo (units (unkn own) date) cardiomyopathy unknown) (unknown) (no (unknown) (unknown) Temperature 100.4 (units (unknown) date) F H 98.8 F unknown) (unknown) (no (unknown) (unknown) Temperature (units (un known) date) unknown) (unknown) (no (unknown) (unknown) Time Spent With (units (unknown) date) Patient unknown) (unknown) (no (unknown) (unknown) Total Bilirubin (units (unknown) date) 1.4 H unknown) (unknown) (no (unknown) (unknown) Total Protein 7.1 (units (unknown) date) unknown) (unknown) (no (unknown) (unknown) VTE (units (unkno wn) date) unknown) (unknown) (no (unknown) (unknown) Vital Signs (units (un known) date) unknown) (unknown) (no (unknown) (unknown) WBC 6.6 (units (unkno wn) date) unknown) (unknown) (no (unknown) (unknown) [Embedded Image (units (unknown) date) Not Available] unknown) (unknown) (no (unknown) (unknown) abrasion that was (units (unknown) date) noted the tip of unknown) her tongue has now healed, no residual (unknown) (no (unknown) (unknown) addition of a (units ( unknown) date) heparin infusion, unknown) aspirin, statin therapy, and a nuclear stress (unknown) (no (unknown) (unknown) alcohol intake: (units (unknown) date) current unknown) (unknown) (no (unknown) (unknown) angioedema.? C1, (units (unknown) date) C3 and C4 levels unknown) have all been checked previously and were (unknown) (no (unknown) (unknown) angiogram.? (units (un known) date) However, unknownLiz Meredith who read the patient's echocardiogram felt (unknown) (no (unknown) (unknown) be stress-induced.? (units (unknown) date) Ejection fraction unknown) was decreased to 30-35%, which is new from (unknown) (no (unknown) (unknown) becomes upset when (units (unknown) date) I cannot unknown) definitively state that as the cause. We tried to (unknown) (no (unknown) (unknown) 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? Troponin (unknown) (no (unknown) (unknown) concerning (units (unk nown) date) medically. Will unknown) treat with a hot towel as needed. Lorazepam will (unknown) (no (unknown) (unknown) consultation. (units ( unknown) date) unknown) (unknown) (no (unknown) (unknown) continue asa and (units (unknown) date) statin therapy unknown) (unknown) (no (unknown) (unknown) emotionally very (units (unknown) date) labile, she wishes unknown) for answers as to why she keeps needing (unknown) (no (unknown) (unknown) extubated.? (units (un known) date) Tele-therapy assistant unknown) recommended transfer to tertiary care facility for (unknown) (no (unknown) (unknown) focus on her heart (units (unknown) date) today and explain unknown) the current testing. She is agreeable for (unknown) (no (unknown) (unknown) from (units (unkno wn) date) 105-137/75-86. unknown) (unknown) (no (unknown) (unknown) have a couple of (units (unknown) date) episodes of unknown) hypotension July 06 requiring IVF boluses. (unknown) (no (unknown) (unknown) have idiopathic (units (unknown) date) angioedema. Would unknown) benefit from outpatient specialty (unknown) (no (unknown) (unknown) hospitalizations. (units (unknown) date) She blames unknown) recurrent angioedema on her covid vaccine. She (unknown) (no (unknown) (unknown) household members: (units (unknown) date) spouse unknown) (unknown) (no (unknown) (unknown) increased to 6.8.? 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 She has been treated (unknown) (no (unknown) (unknown) likely help as (units (unknown) date) well. unknown) (unknown) (no (unknown) (unknown) marijuana who was (units (unknown) date) [id number]? with unknown) recurrent angioedema requiring (unknown) (no (unknown) (unknown) normal, IgE level (units (unknown) date) sent and pending. unknown) CRP was normal at less than 0.5. She may (unknown) (no (unknown) (unknown) patient/spouse did (units (unknown) date) not wish to unknown) continue this medication. (unknown) (no (unknown) (unknown) prior.? (units (unkno wn) date) unknown) (unknown) (no (unknown) (unknown) she is recommended (units (unknown) date) for [facility] and we are unknown) attempting to transfer. Patient has been (unknown) (no (unknown) (unknown) she required (units (u nknown) date) intubation for unknown) airway protection.? Steroids were discontinued due (unknown) (no (unknown) (unknown) test to be (units (unkn own) date) performed today unknown) which was read as abnormal by the satellite communications engineer today, (unknown) (no (unknown) (unknown) testing was (units (un known) date) performed today and unknown) was abnormal? (unknown) (no (unknown) (unknown) to emotional (units (u nknown) date) lability. Continues unknown) diphenhydramine and famotidine.? Epinephrine (unknown) (no (unknown) (unknown) today; this time (units (unknown) date) is exclusive of unknown) procedural time. (unknown) (no (unknown) (unknown) tomorrow once (units ( unknown) date) results of her unknown) stress test are available. (unknown) (no (unknown) (unknown) tongue, cheek, or (units (unknown) date) lip swelling unknown) (unknown) (no (unknown) (unknown) transfer pending (units (unknown) date) for [facility] unknown) (unknown) (no (unknown) (unknown) transfer (units (unkno wn) date) unknown) (unknown) (no (unknown) (unknown) very strongly that (units (unknown) date) the patient had unknown) stress cardiomyopathy.? She recommended the (unknown) (no (unknown) (unknown) w/epinephrine, (units (unknown) date) dexamethasone, unknown) benadryl and pepcid IV for angioedema.? She did (unknown) (no (unknown) (unknown) wanted the ET tube (units (unknown) date) removed.? Tele unknown) therapy assistant approved and she was subsequently (unknown) (no (unknown) (unknown) was discontinued (units (unknown) date) secondary to unknown) elevated troponin.? Unclear etiology for the (unknown) (no (unknown) (unknown) will give an (units (u nknown) date) additional dose of unknown) lorazepam. seroquel was attempted but (unknown) (no (unknown) (unknown) with her current (units (unknown) date) presentation. unknown) (unknown) (no (unknown) (unknown) within normal (units ( unknown) date) limits.? unknown) Sedimentation rate was performed yesterday and was Result panel 741 (unknown) (no date) (unknown) (unknown) (no value) (units (un known) unknown) (unknown) (no date) (unknown) (unknown) NO GROWTH (units (unk nown) AFTER 72 unknown) HOURS (unknown) (no date) (unknown) (unknown) NO GROWTH (units (unk nown) AFTER 72 unknown) HOURS Result panel 742 (unknown) (no date) (unknown) (unknown) (no value) (units (un known) unknown) (unknown) (no date) (unknown) (unknown) NO GROWTH (units (unk nown) AFTER 72 unknown) HOURS (unknown) (no date) (unknown) (unknown) NO GROWTH (units (unk nown) AFTER 72 unknown) HOURS Result panel 743 (unknown) (no (unknown) (unknown) (no value) (units (unk nown) date) unknown) (unknown) (no (unknown) (unknown) [address] [place] [address] (units (unknown) date) unknown) (unknown) (no (unknown) (unknown) 153 mL. Lung/heart (units (unknown) date) ratio 0.29, which is unknown) within normal limits. TID ratio 1.05, (unknown) (no (unknown) (unknown) [id number] (units (unkno wn) date) unknown) (unknown) (no (unknown) (unknown) 96/60. Baseline (units (unknown) date) rhythm sinus with unknown) diffuse T-wave inversion involving inferior (unknown) (no (unknown) (unknown) Accession Number: (units (unknown) date) unknown) (unknown) (no (unknown) (unknown) Age/Sex: 46 / F (units (unknown) date) Date of Service: unknown) (unknown) (no (unknown) (unknown) [place] [address] (unit s (unknown) date) unknown) (unknown) (no (unknown) (unknown) Dameon Caputo - MRN: (unit s (unknown) date) [id number] unknown) (unknown) (no (unknown) (unknown) CARDIAC STRESS: The (unit s (unknown) date) patient underwent IV unknown) Lexiscan perfusion study under the (unknown) (no (unknown) (unknown) CONCLUSION: This is (unit s (unknown) date) an abnormal unknown) myocardial perfusion study, consistent with (unknown) (no (unknown) (unknown) COPIES MNE: PALV; (units (unknown) date) unknown) (unknown) (no (unknown) (unknown) DATE OF SERVICE: (units (unknown) date) unknown) (unknown) (no (unknown) (unknown) DICTATING MD/COPIES (unit s (unknown) date) TO: Michael Babb, unknown) MD (unknown) (no (unknown) (unknown) : 1975 (units (unknown) date) Acct:[id number] unknown) (unknown) (no (unknown) (unknown) Draft (units (unkno wn) date) unknown) (unknown) (no (unknown) (unknown) GATED STUDY: Stress (unit s (unknown) date) LV ejection fraction unknown) 37 percent. 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 (unknown) (no (unknown) (unknown) [facility] (units (unknown) date) unknown) (unknown) (no (unknown) (unknown) Loc: ICU 227-1 (units (unknown) date) unknown) (unknown) (no (unknown) (unknown) MYOCARDIAL (units (unk nown) date) PERFUSION SCAN: unknown) Stress supine, resting supine and stress prone (unknown) (no (unknown) (unknown) Nuclear Medicine (units (unknown) date) Report unknown) (unknown) (no (unknown) (unknown) Ordering Provider: (units (unknown) date) unknown) (unknown) (no (unknown) (unknown) PROCEDURE: (units (unk nown) date) Pharmacological unknown) perfusion study. (unknown) (no (unknown) (unknown) Patient: (units (o wn) date) Dameon Caputo MR#: unknown) [id number] (unknown) (no (unknown) (unknown) Procedure: (units (unk nown) date) unknown) (unknown) (no (unknown) (unknown) RADIOPHARMACEUTICAL (unit s (unknown) date) : 27.5 millicurie unknown) technetium-99m Myoview IV was injected at (unknown) (no (unknown) (unknown) RAW DATA: There is (units (unknown) date) increased unknown) subdiaphragmatic activity. Breast shadow was (unknown) (no (unknown) (unknown) CUTTING TOOL SHARPENER/fn/lc (units (unkno wn) date) unknown) (unknown) (no (unknown) (unknown) clinically and (units (unknown) date) consider left heart unknown) catheterization to rule out occlusive (unknown) (no (unknown) (unknown) coronary artery (units (unknown) date) disease. In absence unknown) of coronary artery disease, other (unknown) (no (unknown) (unknown) dd: 07/09/2022 (units (unknown) date) 12:57:00 dt: unknown) 07/09/2022 21:16:00 (unknown) (no (unknown) (unknown) differential (units (u nknown) date) diagnosis is stress unknown) induced cardiomyopathy. Discussed the (unknown) (no (unknown) (unknown) doc#: (units (o wn) date) [id number]/job#: [id number] unknown) (unknown) (no (unknown) (unknown) extending into the (units (unknown) date) mid to distal unknown) anteroseptum. There is also a moderate-size (unknown) (no (unknown) (unknown) findings (units (unkno wn) date) unknown) (unknown) (no (unknown) (unknown) fraction 37 percent (unit s (unknown) date) with wall motion unknown) abnormalities, as stated above. Correlate (unknown) (no (unknown) (unknown) hypercontractility (units (unknown) date) of the basal LV unknown) segments, but mid to distal LV segments, (unknown) (no (unknown) (unknown) images were (units (un known) date) compared to each unknown) other. There appears to be predominantly fixed (unknown) (no (unknown) (unknown) including apex, (units (unknown) date) severely hypokinetic unknown) to akinetic. Stress end-diastolic volume (unknown) (no (unknown) (unknown) inferolateral wall, (unit s (unknown) date) consistent with unknown) infarction. Left ventricular ejection (unknown) (no (unknown) (unknown) inferolateral wall. (unit s (unknown) date) No obvious unknown) reversible ischemia. (unknown) (no (unknown) (unknown) leads, as well as (units (unknown) date) leads V3 to V6 and unknown) lateral leads. During stress, patient did (unknown) (no (unknown) (unknown) mid to distal (units ( unknown) date) anteroseptum, as unknown) well as mid inferior wall extending into the mid (unknown) (no (unknown) (unknown) moderate size (units ( unknown) date) severe predominantly unknown) fixed defect of mid to distal anterior wall, (unknown) (no (unknown) (unknown) moderate-size (units ( unknown) date) severely decreased unknown) perfusion of mid to distal anterior wall (unknown) (no (unknown) (unknown) not have any new (units (unknown) date) significant ischemic unknown) changes. No significant arrhythmias. No (unknown) (no (unknown) (unknown) obvious anginal (units (unknown) date) symptoms. unknown) (unknown) (no (unknown) (unknown) pressure (units (unkno wn) date) unknown) (unknown) (no (unknown) (unknown) protocol. The (units ( unknown) date) patient remained unknown) hemodynamically stable. Baseline blood (unknown) (no (unknown) (unknown) seen, as well. (units (unknown) date) unknown) (unknown) (no (unknown) (unknown) severely decreased (units (unknown) date) perfusion of mid unknown) inferior wall extending into the mid (unknown) (no (unknown) (unknown) stress and 9.5 (units (unknown) date) millicurie unknown) technetium-99m Myoview IV was injected at rest. (unknown) (no (unknown) (unknown) supervision of an (units (unknown) date) attending staff unknown) using standard intravenous Lexiscan, as per (unknown) (no (unknown) (unknown) which is within (units (unknown) date) normal limits. unknown) (unknown) (no (unknown) (unknown) with Dr. Iyer. (units (unknown) date) unknown) Result panel [id number] (unknown) (no (unknown) (unknown) (no value) (units (unk nown) date) unknown) (unknown) (no (unknown) (unknown) (VICK) Inhibitor, (units (unknown) date) or Angiotensin unknown) Receptor Eugene (ARB).: No (unknown) (no (unknown) (unknown) (past 8 hours): (units (unknown) date) unknown) (unknown) (no (unknown) (unknown) 00:00 (units (unkno wn) date) unknown) (unknown) (no (unknown) (unknown) 07/05/22 22:58 (units (unknown) date) unknown) (unknown) (no (unknown) (unknown) 07/06/22 10:13 (units (unknown) date) unknown) (unknown) (no (unknown) (unknown) 07/09/22 02:00 (units (unknown) date) unknown) (unknown) (no (unknown) (unknown) 07/09/22 (units (unkno wn) date) unknown) (unknown) (no (unknown) (unknown) 07/10/22 0317 (units ( unknown) date) unknown) (unknown) (no (unknown) (unknown) 19:00 07/10/22 (units (unknown) date) unknown) (unknown) (no (unknown) (unknown) 19:00 (units (unkno wn) date) unknown) (unknown) (no (unknown) (unknown) 19:55 07/09/22 (units (unknown) date) unknown) (unknown) (no (unknown) (unknown) 19th. Her LV (units (u nknown) date) ejection fraction unknown) was estimated to be 37% and she had a moderate (unknown) (no (unknown) (unknown) 21:30 07/09/22 (units (unknown) date) unknown) (unknown) (no (unknown) (unknown) [id number] (units (unkno wn) date) unknown) (unknown) (no (unknown) (unknown) A + B, STOP here]: (units (unknown) date) No unknown) (unknown) (no (unknown) (unknown) A. The patient was (units (unknown) date) prescribed or unknown) already taking an Angiotensin-Convert ing Enzyme (unknown) (no (unknown) (unknown) Abscess (units (unkno wn) date) unknown) (unknown) (no (unknown) (unknown) Age/Sex: 46 / F (units (unknown) date) unknown) (unknown) (no (unknown) (unknown) Angioedema with (units (unknown) date) acute hypoxic unknown) respiratory failure (unknown) (no (unknown) (unknown) Anxiety (units (unkno wn) date) unknown) (unknown) (no (unknown) (unknown) Appears to be (units ( unknown) date) spasm from a stiff unknown) neck rather than anything significantly (unknown) (no (unknown) (unknown) Assessment and (units (unknown) date) Plan unknown) (unknown) (no (unknown) (unknown) Assessment: (units (un known) date) unknown) (unknown) (no (unknown) (unknown) B. The patient was (units (unknown) date) prescribed or unknown) already taking a beta-eugene. [If Yes to Both (unknown) (no (unknown) (unknown) Blood Pressure (units (unknown) date) 100/72 unknown) (unknown) (no (unknown) (unknown) Blood Pressure (units (unknown) date) 110/74 unknown) (unknown) (no (unknown) (unknown) Chief complaint: (units (unknown) date) Keeps biting unknown) tongue, Jaw clenched (unknown) (no (unknown) (unknown) Chronic abdominal (units (unknown) date) pain unknown) (unknown) (no (unknown) (unknown) Cognitive/behavior (units (unknown) date) al status at unknown) discharge: oriented (unknown) (no (unknown) (unknown) Comment: (units (unkno wn) date) unknown) (unknown) (no (unknown) (unknown) Consult to (units (unk nown) date) Dietitian, Adult unknown) Routine (unknown) (no (unknown) (unknown) Consults: (units (unkn own) date) unknown) (unknown) (no (unknown) (unknown) Cyclic vomiting (units (unknown) date) syndrome unknown) (unknown) (no (unknown) (unknown) : 1975 (units (unknown) date) Acct:[id number] unknown) (unknown) (no (unknown) (unknown) Date of Service: (units (unknown) date) 07/05/22 unknown) (unknown) (no (unknown) (unknown) Date of admission: (units (unknown) date) unknown) (unknown) (no (unknown) (unknown) Daughter (units (unkno wn) date) Angio-edema unknown) (unknown) (no (unknown) (unknown) Melinda Gamez [employer] REC[employer] MANAGEMENT OFFICER (units (unknown) date) unknown) (unknown) (no (unknown) (unknown) Deep Vein (units (unkn own) date) Thrombosis/Pulmonar unknown) y Embolism Present on Admission: No (unknown) (no (unknown) (unknown) Discharge (units (unkn own) date) Assessment + Plan unknown) (unknown) (no (unknown) (unknown) Discharge Data (units (unknown) date) unknown) (unknown) (no (unknown) (unknown) Discharge Date: (units (unknown) date) 07/10/22 unknown) (unknown) (no (unknown) (unknown) Discharge (units (unkn own) date) Diagnosis: unknown) (unknown) (no (unknown) (unknown) Discharge Plan (units (unknown) date) unknown) (unknown) (no (unknown) (unknown) Discharge (units (unkn own) date) Providers unknown) (unknown) (no (unknown) (unknown) Discharge Summary (units (unknown) date) unknown) (unknown) (no (unknown) (unknown) Discharge (units (unkn own) date) provider: unknown) (unknown) (no (unknown) (unknown) Disposition: [facility] (units (unknown) date) [facility] (unknown) (no (unknown) (unknown) Dr. Meredith.? (units (unknown) date) She was also unknown) initiated on aspirin and atorvastatin.? Nuclear (unknown) (no (unknown) (unknown) ED she had rapid (units (unknown) date) worsening of her unknown) respiratory status with enlarging tongue and (unknown) (no (unknown) (unknown) Echocardiogram (units (unknown) date) done this admission unknown) revealed significant cardiomyopathy felt to (unknown) (no (unknown) (unknown) Exam (units (unkno wn) date) unknown) (unknown) (no (unknown) (unknown) Family History (units (unknown) date) (Reviewed 07/10/22 unknown) @ 03:10 by BRANDEE Knight) (unknown) (no (unknown) (unknown) Family history of (units (unknown) date) angioedema unknown) (unknown) (no (unknown) (unknown) Father (units (unkno wn) date) Hypertension unknown) (unknown) (no (unknown) (unknown) Fraction of (units (un known) date) Inspired Oxygen unknown) 0.30 (unknown) (no (unknown) (unknown) Functional status (units (unknown) date) at discharge: unknown) independent ambulation (unknown) (no (unknown) (unknown) History of Present (units (unknown) date) Illness unknown) (unknown) (no (unknown) (unknown) Holding her (units (un known) date) outpatient unknown) antihypertensive therapy.? Blood pressures have ranged (unknown) (no (unknown) (unknown) Hospital Course (units (unknown) date) unknown) (unknown) (no (unknown) (unknown) Hospital Course: (units (unknown) date) unknown) (unknown) (no (unknown) (unknown) Hx of appendectomy (units (unknown) date) unknown) (unknown) (no (unknown) (unknown) Hx of (units (unkno wn) date) cholecystectomy unknown) (unknown) (no (unknown) (unknown) Hyperglycemia (units ( unknown) date) unknown) (unknown) (no (unknown) (unknown) Hypertension (units (u nknown) date) unknown) (unknown) (no (unknown) (unknown) Hypotension (units (un known) date) unknown) (unknown) (no (unknown) (unknown) I confirm the (units (u nknown) date) patient?s Advance unknown) Care Plan is present, Code status is documented, (unknown) (no (unknown) (unknown) ICU for further (units (unknown) date) treatment. unknown) (unknown) (no (unknown) (unknown) Idiopathic (units (unk nown) date) angioedema unknown) (unknown) (no (unknown) (unknown) Idiopathic (units (unk nown) date) angioedema, NSTEMI unknown) (unknown) (no (unknown) (unknown) In the ED workup (units (unknown) date) was done, vitals unknown) initially notable for tachycardia and (unknown) (no (unknown) (unknown) [facility] (units (unknown) date) [address] unknown) [place] [address] (unknown) (no (unknown) (unknown) Labs (units (unkno wn) date) unknown) (unknown) (no (unknown) (unknown) MIPS - Admit (units (u nknown) date) unknown) (unknown) (no (unknown) (unknown) MIPS - DC (units (unkn own) date) unknown) (unknown) (no (unknown) (unknown) 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 (unknown) (no (unknown) (unknown) Marijuana use, (units (unknown) date) continuous unknown) (unknown) (no (unknown) (unknown) Medical History (units (unknown) date) (Reviewed 07/10/22 unknown) @ 03:10 by BRANDEE Knight) (unknown) (no (unknown) (unknown) Dameon Caputo (units (un known) date) presented to the unknown) emergency department with tongue swelling. She had (unknown) (no (unknown) (unknown) Mother Diabetes (units (unknown) date) mellitus unknown) (unknown) (no (unknown) (unknown) Ms. 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 (unknown) (no (unknown) (unknown) NSTEMI vs Takosubo (units (unknown) date) cardiomyopathy unknown) (unknown) (no (unknown) (unknown) Narrative by (units (unknown) date) Jean Carlos Cuevas, unknown) Hospitalist: (unknown) (no (unknown) (unknown) Narrative: (units (unk nown) date) unknown) (unknown) (no (unknown) (unknown) Neck pain (units (unkn own) date) unknown) (unknown) (no (unknown) (unknown) Objective (units (unkn own) date) unknown) (unknown) (no (unknown) (unknown) Other Colon cancer (units (unknown) date) unknown) (unknown) (no (unknown) (unknown) Overall status at (units (unknown) date) discharge: patient unknown) is not back to baseline (unknown) (no (unknown) (unknown) Oxygen Delivery (units (unknown) date) Method Room Air unknown) (unknown) (no (unknown) (unknown) Oxygen Flow Rate 0 (units (unknown) date) unknown) (unknown) (no (unknown) (unknown) PFSH (units (unkno wn) date) unknown) (unknown) (no (unknown) (unknown) Pancreatitis (units (u nknown) date) unknown) (unknown) (no (unknown) (unknown) Patient not (units (un known) date) prescribed/taking unknown) VICK or ARB for medical/patient/sys tem reason(s) (unknown) (no (unknown) (unknown) Patient not (units (un known) date) prescribed/taking unknown) Beta-eugene for medical/patient/sys tem reason(s) (unknown) (no (unknown) (unknown) Patient reports (units (unknown) date) having had 4 unknown) previous presentations, but this was the 1st time (unknown) (no (unknown) (unknown) Patient was (units (unk nown) date) initiated on a unknown) heparin infusion per recommendations by Manager Environmental, (unknown) (no (unknown) (unknown) Patient: (units (o wn) date) Dameon Caputo MR#: unknown) [id number] (unknown) (no (unknown) (unknown) Plan of Treatment: (units (unknown) date) unknown) (unknown) (no (unknown) (unknown) Primary Care (units (u nknown) date) Provider: unknown) Sergo Martino (unknown) (no (unknown) (unknown) Primary care (units (u nknown) date) physician: unknown) (unknown) (no (unknown) (unknown) Provider (units (unkno wn) date) unknown) (unknown) (no (unknown) (unknown) Provider: (units (unkn own) date) Melinda Gamez unknown) (unknown) (no (unknown) (unknown) Pulse Oximetry 97 (units (unknown) date) 97 unknown) (unknown) (no (unknown) (unknown) Pulse Oximetry 99 (units (unknown) date) unknown) (unknown) (no (unknown) (unknown) Pulse Rate 104 H (units (unknown) date) unknown) (unknown) (no (unknown) (unknown) Pulse Rate 95 H (units (unknown) date) unknown) (unknown) (no (unknown) (unknown) Quality (units (unkno wn) date) unknown) (unknown) (no (unknown) (unknown) Reason For Exam: (units (unknown) date) intubated; tube unknown) feedings (unknown) (no (unknown) (unknown) Receiving (units (unkn own) date) Wellbutrin.? Given unknown) her severe anxiety when I saw her this afternoon, (unknown) (no (unknown) (unknown) Resolved (units (unkno wn) date) unknown) (unknown) (no (unknown) (unknown) Respiratory Rate (units (unknown) date) 18 unknown) (unknown) (no (unknown) (unknown) Result Diagrams: (units (unknown) date) unknown) (unknown) (no (unknown) (unknown) Signed (units (unkno wn) date) By:<Electronically unknown) signed by Melinda Gamez> (unknown) (no (unknown) (unknown) Smoking Status: (units (unknown) date) Current every day unknown) smoker (unknown) (no (unknown) (unknown) Social History (units (unknown) date) (Reviewed 07/10/22 unknown) @ 03:10 by BRANDEE Knight) (unknown) (no (unknown) (unknown) Status at (units (unkn own) date) Discharge unknown) (unknown) (no (unknown) (unknown) Still A1c is 5.4%, (units (unknown) date) hyperglycemia is unknown) likely stress induced. (unknown) (no (unknown) (unknown) Summary (units (unkno wn) date) unknown) (unknown) (no (unknown) (unknown) Surgical History (units (unknown) date) (Reviewed 07/10/22 unknown) @ 03:10 by BRANDEE Knight) (unknown) (no (unknown) (unknown) Surrogate decision (units (unknown) date) maker is in unknown) patient?s record [If Yes, STOP here]: Yes (unknown) (no (unknown) (unknown) Takotsubo (units (unkn own) date) cardiomyopathy unknown) (unknown) (no (unknown) (unknown) Temperature 97.9 F (units (unknown) date) unknown) (unknown) (no (unknown) (unknown) Temperature 98.5 F (units (unknown) date) 98.8 F unknown) (unknown) (no (unknown) (unknown) The patient has (units (unknown) date) current or prior unknown) documentation of left ventricular ejection (unknown) (no (unknown) (unknown) VTE (units (unkno wn) date) unknown) (unknown) (no (unknown) (unknown) Vital Signs (units (un known) date) unknown) (unknown) (no (unknown) (unknown) Sergo Martino MD (units (unknown) date) unknown) (unknown) (no (unknown) (unknown) [Embedded Image (units (unknown) date) Not Available] unknown) (unknown) (no (unknown) (unknown) abnormalities. She (units (unknown) date) was found to have unknown) moderate reduction of her left ventricular (unknown) (no (unknown) (unknown) alcohol intake: (units (unknown) date) current unknown) (unknown) (no (unknown) (unknown) angioedema.? C1, (units (unknown) date) C3 and C4 levels unknown) have all been checked previously and were (unknown) (no (unknown) (unknown) apparently it (units ( unknown) date) peaked at 6.8 on unknown) the . At that time the epinephrine drip was (unknown) (no (unknown) (unknown) be stress-induced.? (units (unknown) date) Ejection fraction unknown) was decreased to 30-35%, which is new from (unknown) (no (unknown) (unknown) being examined. (units (unknown) date) But per report she unknown) developed tongue swelling but had no food or (unknown) (no (unknown) (unknown) closest to this (units (unknown) date) facility did not unknown) have any beds available. (unknown) (no (unknown) (unknown) concerning (units (unk nown) date) medically.? Will unknown) treat with a hot towel as needed.? Lorazepam will (unknown) (no (unknown) (unknown) consultation with (units (unknown) date) our tele unknown) therapy assistant service. She was started on an (unknown) (no (unknown) (unknown) consultation. (units ( unknown) date) unknown) (unknown) (no (unknown) (unknown) consulting (units (unk nown) date) satellite communications engineer who unknown) recommended that she be transferred to a tertiary (unknown) (no (unknown) (unknown) distress and was (units (unknown) date) emergently unknown) intubated, received FFP, TXA, and Solu-Medrol in (unknown) (no (unknown) (unknown) epinephrine drip (units (unknown) date) and sedated with unknown) propofol and fentanyl. She did develop (unknown) (no (unknown) (unknown) facility to (units (un known) date) undergo a left unknown) heart catheterization. Unfortunately, hospitals (unknown) (no (unknown) (unknown) fraction (LVEF) (units (unknown) date) less than 40%, or unknown) moderate or severely depressed left (unknown) (no (unknown) (unknown) from (units (unkno wn) date) 105-137/75-86. unknown) (unknown) (no (unknown) (unknown) have an EF of (units ( unknown) date) 30-35% with new unknown) cardiomyopathy and new apical wall motion (unknown) (no (unknown) (unknown) have idiopathic (units (unknown) date) angioedema.? Would unknown) benefit from outpatient specialty (unknown) (no (unknown) (unknown) household members: (units (unknown) date) spouse unknown) (unknown) (no (unknown) (unknown) hypertension. Labs (units (unknown) date) notable for WBC unknown) 11.1, hgb 12.3, plts 238. Creatinin 0.72. She (unknown) (no (unknown) (unknown) hypotension in the (units (unknown) date) setting of her unknown) sedation and adjustments were made in the (unknown) (no (unknown) (unknown) hypotension (units (un known) date) unknown) (unknown) (no (unknown) (unknown) hypotensive and (units (unknown) date) she was continued unknown) on the epi drip. 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 unknown) Patient's cardiac studies were reviewed by local (unknown) (no (unknown) (unknown) inferolateral wall (units (unknown) date) consistent with unknown) infarction. Differential included stress (unknown) (no (unknown) (unknown) likely help as (units (unknown) date) well. unknown) (unknown) (no (unknown) (unknown) medication (units (unk nown) date) exposures. She unknown) reportedly has no recently used cocaine. While in the (unknown) (no (unknown) (unknown) no reported food (units (unknown) date) or other kind of unknown) substance allergy. She developed respiratory (unknown) (no (unknown) (unknown) normal, IgE level (units (unknown) date) sent and pending.? unknown) CRP was normal at less than 0.5.? She may (unknown) (no (unknown) (unknown) patient/spouse did (units (unknown) date) not wish to unknown) continue this medication. (unknown) (no (unknown) (unknown) pending transfer (units (unknown) date) unknown) (unknown) (no (unknown) (unknown) previously and (units (unknown) date) these have resulted unknown) as normal. (unknown) (no (unknown) (unknown) prior.?Stress (units ( unknown) date) testing today was unknown) abnormal and patient is recommended for [facility], (unknown) (no (unknown) (unknown) propofol and (units (u nknown) date) Versed. unknown) Echocardiogram was done on the and she was found to (unknown) (no (unknown) (unknown) propofol, (units (unkn own) date) fentanyl, and unknown) versed. On these medications her blood pressure became (unknown) (no (unknown) (unknown) she required (units (u nknown) date) intubation for unknown) airway protection.? Steroids were discontinued due (unknown) (no (unknown) (unknown) sized severe (units (u nknown) date) predominantly fixed unknown) defect of the mid to distal anterior wall, mid (unknown) (no (unknown) (unknown) stopped and she (units (unknown) date) was started on a unknown) heparin drip which has now been stopped. She (unknown) (no (unknown) (unknown) stress testing was (units (unknown) date) performed today and unknown) was abnormal?continue asa and statin (unknown) (no (unknown) (unknown) systolic function. (units (unknown) date) She did have an unknown) elevated troponin on admission and (unknown) (no (unknown) (unknown) therapy transfer (units (unknown) date) pending for [facility] unknown) (unknown) (no (unknown) (unknown) to distal anterior (units (unknown) date) septum, as well as unknown) a mid inferior wall extending into the mid (unknown) (no (unknown) (unknown) to emotional (units (u nknown) date) lability. Continues unknown) diphenhydramine and famotidine.? Epinephrine (unknown) (no (unknown) (unknown) to tertiary (units (un known) date) facility, defer unknown) decision to them. (unknown) (no (unknown) (unknown) to the hospital (units (unknown) date) with sudden onset unknown) of tongue swelling. Patient is intubated when (unknown) (no (unknown) (unknown) ventricular (units (un known) date) systolic function.: unknown) Yes (unknown) (no (unknown) (unknown) was discontinued (units (unknown) date) secondary to unknown) elevated troponin.? Unclear etiology for the (unknown) (no (unknown) (unknown) was extubated on (units (unknown) date) the and unknown) underwent a myocardial perfusion study on the (unknown) (no (unknown) (unknown) was initially (units ( unknown) date) difficult to sedate unknown) and ultimately sedation was improved on (unknown) (no (unknown) (unknown) was intubated. She (units (unknown) date) had previously been unknown) administered epi, and after intubation (unknown) (no (unknown) (unknown) was started on an (units (unknown) date) epi drip. She has unknown) had C1, and C4 sent multiple times (unknown) (no (unknown) (unknown) will give an (units (u nknown) date) additional dose of unknown) lorazepam. seroquel was attempted but (unknown) (no (unknown) (unknown) within normal (units ( unknown) date) limits.? unknown) Sedimentation rate was performed yesterday and was Result panel 745 (unknown) (no date) (unknown) (unknown) 17 mg/dl (unkn own) (unknown) (no date) (unknown) (unknown) 17 mg/dl (unkn own) Result panel 746 (unknown) (no (unknown) (unknown) (no value) (units (unk nown) date) unknown) (unknown) (no (unknown) (unknown) <25 Squamous (units (u nknown) date) Epithelial unknown) Cells/LPF, Acceptable (unknown) (no (unknown) (unknown) HAEINFHaemophilus (units (unknown) date) influenzae unknown) (unknown) (no (unknown) (unknown) LIGHT (units (unkno wn) date) unknown) (unknown) (no (unknown) (unknown) Light growth - (units (unknown) date) Mixed resident farhat unknown) (unknown) (no (unknown) (unknown) NEGATIVE (units (unkno wn) date) unknown) (unknown) (no (unknown) (unknown) Occasional WBC seen (unit s (unknown) date) unknown) Result panel 747 (unknown) (no date) (unknown) (unknown) (no value) (units (un known) unknown) (unknown) (no date) (unknown) (unknown) NO GROWTH (units (unk nown) AFTER 4 DAYS unknown) (unknown) (no date) (unknown) (unknown) NO GROWTH (units (unk nown) AFTER 4 DAYS unknown) Result panel 748 (unknown) (no date) (unknown) (unknown) (no value) (units (un known) unknown) (unknown) (no date) (unknown) (unknown) NO GROWTH (units (unk nown) AFTER 4 DAYS unknown) (unknown) (no date) (unknown) (unknown) NO GROWTH (units (unk nown) AFTER 4 DAYS unknown) Result panel 749 (unknown) (no date) (unknown) (unknown) 756 iu/ml (unkn own) (unknown) (no date) (unknown) (unknown) 756 iu/ml (unkn own) Result panel 750 (unknown) (no date) (unknown) (unknown) (no value) (units (un known) unknown) (unknown) (no date) (unknown) (unknown) NO GROWTH (units (unk nown) AFTER 5 DAYS unknown) (unknown) (no date) (unknown) (unknown) NO GROWTH (units (unk nown) AFTER 5 DAYS unknown) Result panel 751 (unknown) (no date) (unknown) (unknown) (no value) (units (un known) unknown) (unknown) (no date) (unknown) (unknown) NO GROWTH (units (unk nown) AFTER 5 DAYS unknown) (unknown) (no date) (unknown) (unknown) NO GROWTH (units (unk nown) AFTER 5 DAYS unknown) Social History date description facility 2022-07-05 00:00 Smokes tobacco daily (finding) [facility] 2022-07-06 00:00 Smokes tobacco daily (finding) [facility] Vital Signs date measurement value units 2022-07-05 00:00 weight_metric 63.5 kg 2022-07-05 00:00 weight_standard 139.99 lb 2022-07-06 00:00 BP_diastolic 52 mmHg 2022-07-06 00:00 BP_systolic 81 mmHg 2022-07-06 00:00 heart_rate 84 /min 2022-07-06 00:00 height_metric 165.1 cm 2022-07-06 00:00 height_standard 65 in 2022-07-06 00:00 o2_saturation 99 % 2022-07-06 00:00 respiration_rate 16 /min 2022-07-10 00:00 BP_diastolic 72 mmHg 2022-07-10 00:00 BP_systolic 100 mmHg 2022-07-10 00:00 heart_rate 95 /min 2022-07-10 00:00 o2_saturation 99 % 2022-07-10 00:00 respiration_rate 18 /min 2022-07-10 00:00 temperature_metric 36.61 C 2022-07-10 00:00 temperature_standard 97.9 F 2022-07-10 00:00 weight_metric 75.1 kg 2022-07-10 00:00 weight_standard 165.57 lb
[2022-09-21] MEDS ORDERED: POTASSIUM CHLORIDE 20 MEQ TABLET PO STA (18:48)
[2022-09-21 21:24] VITALS: BP 122/79
== END 2022-09-21 21:24 | disposition home or self-care (01) ==
LOC: ED 17:28
DX: T78.3XXA Angioneurotic edema, initial encounter (principal); R11.15 Cyclical vomiting syndrome unrelated to migraine; E87.6 Hypokalemia; F17.200 Nicotine dependence, unspecified, uncomplicated
CPT/HCPCS: 36415; 80053; 83690; 85025; 85651; 86140; 86160; 96360; 96361; 99284; A9270

== ENCOUNTER 2022-11-01 19:53 | Outpatient (CLI) | payer MEDICAID | END 2022-11-01 19:54 | disposition short-term general hospital (02) | LOC: EMS 19:53 | DX: R11.15 Cyclical vomiting syndrome unrelated to migraine (principal) | CPT/HCPCS: A0425; A0429; A0999 ==

== ENCOUNTER 2023-01-02 03:24 | Outpatient (CLI) | payer MEDICAID | END 2023-01-02 23:59 | disposition critical access hospital (66) | LOC: EMS 03:24 | DX: R10.816 Epigastric abdominal tenderness (principal); R11.2 Nausea with vomiting, unspecified | CPT/HCPCS: A0425; A0429; A0999 ==

== ENCOUNTER 2023-01-02 03:54 | Emergency (ER) | payer MEDICAID ==
--- NOTE | 2023-01-02 03:54 | ED Physician Documentation ---
PD HPI NVD - Stated complaint Stated Complaint: VOMITING - History obtained from History obtained from: Patient, EMS - Additonal information Additional information: Patient is brought in by ambulance. HPI is mostly from EMS; patient is able to provide very little information regarding HPI/ROS due to thrashing and moaning. Patient complains of diffuse abdominal pain with nausea and vomiting x1 to 2 days. Symptoms are similar to many previous such episodes which have been attributed to cyclical vomiting syndrome.Patient says she tried an antinausea suppository tonight without relief. EMS administered 100 mcg of fentanyl and 4 mg of Zofran intravenously. EMS says that these measures improved patient's pain from 8 out of 10 to 4 out of 10; however, when EMS says this, patient says she is back to 7 out of 10. Fingerstick blood sugar by EMS was 149. Review of Systems GI: reports: Abdominal Pain, Nausea, Vomiting. denies: Constipation, Diarrhea PD PAST MEDICAL HISTORY - Past Medical History Past Medical History: Yes Other Past Medical History: cyclical vomiting syndrome - Present Medications Home Medications: Ambulatory Orders Medication Instructions Recorded Confirmed amLODIPine [Norvasc] 5 mg PO DAILY #30 tablet 12/14/21 05/30/22 Spironolactone [Aldactone] 25 mg PO DAILY 05/30/22 05/30/22 buPROPion [Wellbutrin Sr] 100 mg PO DAILY 05/30/22 05/30/22 EPINEPHrine [Epinephrine] 0.3 mg IJ ONCE PRN #1 each 09/21/22 - Allergies Allergies/Adverse Reactions: Allergies Allergy/AdvReac Type Severity Reaction Status Date / Time metoclopramide HCl * Allergy Rash Verified 01/02/23 04:19 [From [facility]] - Living Situation Living Arrangement: reports: At home PD ED PE NORMAL - Vitals Vital signs reviewed: Yes - General General: Well developed/nourished, Other (awake, alert, moaning, thrashing in bed) - Neck Neck: Supple, no meningeal sign - Cardiac Cardiac: RRR, No murmur - Respiratory Respiratory: No respiratory distress, Clear bilaterally - Abdomen Abdomen: Soft, Non distended, Other (TTP diffusely but strong component of distractability) - Derm Derm: Normal color, Warm and dry Results - Vitals Vitals: Vital Signs - 24 hr 01/02/23 01/02/23 01/02/23 04:08 04:37 05:57 Temperature 36.7 C Heart Rate 99 70 62 Respiratory 18 28 H 26 H Rate Blood Pressure 179/93 H 118/75 186/113 H O2 Saturation 100 99 98 If not protocol 4 : Oxygen Flow, liters/minute 01/02/23 01/02/23 07:10 08:14 Temperature 37 C Heart Rate 53 L 60 Respiratory 16 15 Rate Blood Pressure 122/84 H 108/75 O2 Saturation 100 100 If not protocol : Oxygen Flow, liters/minute Oxygen O2 Source Room air - Labs Labs: Laboratory Tests 01/02/23 01/02/23 04:30 04:30 WBC 7.7 RBC 4.51 Hgb 13.9 Hct 41.3 MCV 91.6 MCH 30.8 MCHC 33.7 RDW 12.5 Plt Count 236 MPV 10.1 Neut # (Auto) 6.3 Lymph # (Auto) 0.9 L Carbon # (Auto) 0.4 Eos # (Auto) 0.0 Baso # (Auto) 0.0 Absolute Nucleated RBC 0.00 Nucleated RBC % 0.0 Sodium 140 Potassium 2.5 L* Chloride 97 L Carbon Dioxide 25 Anion Gap 18.0 H BUN 15 Creatinine 0.8 Estimated GFR (MDRD) 76 L Glucose 157 H Calcium 9.7 Total Bilirubin 1.5 H AST 26 ALT 19 Alkaline Phosphatase 64 Total Protein 8.8 H Albumin 4.7 Globulin 4.1 Albumin/Globulin Ratio 1.1 Lipase 34 PD Medical Decision Making - ED course Complexity details: reviewed old records, reviewed results, re-evaluated patient, considered differential, d/w patient ED course: Patient presents with abdominal pain, nausea, vomiting consistent with any such previous episodes for which she has been evaluated in this emergency department as well as [facility] ER (adelia is patient's ninth ED visit to these 2 ERs over the past 12 months; some of those visits were related to tongue swelling, but most were related to nausea vomiting and abdominal pain). In the emergency department adelia, she is given 1 L of normal saline IV bolus, as well as IV droperidol 2.5 mg, 1 mg IV lorazepam, 50 mg IV Toradol. This is in addition to the fentanyl and Zofran given by EMS as per my HPI, above. Shortly after she received these medications, she is asleep, drowsy but awakens to verbal if combined with gentle tactile. Her CBC is normal. Her basic metabolic profile is notable for hypokalemia with potassium level of 2.5. For this, she is given 10 mEq of potassium over 1 hour through the IV. I also ordered a second liter of normal saline. Before the end of my shift, the potassium was still infusing; I reevaluated the patient, find her to be sleep, awakens to voice with gentle tactile. Despite having just woken the patient up, she says she does not feel adequate symptoms relief. Care of this patient is turned over to the oncoming emergency department physician (Dr. Cuadra) at the end of my shift pending completion of the infusion of the potassium and possible recheck of potassium levels as well as reassessment of the patient's symptoms. Before tonight, her most recent ER visit was November 01, 2022 to [facility] ED. I requested those records from [facility] and they are faxed to my emergency department and I reviewed these notes. They indicate that she presented on said date with abdominal pain, nausea, vomiting. She improved with intramuscular Haldol, Ativan, and Benadryl; subsequently was able to be discharged when she was able to tolerate small amount of p.o. liquids. Departure - Departure Clinical Impression: Cyclical vomiting syndrome, Hypokalemia Condition: Good
[2023-01-02] MEDS ORDERED: SODIUM CHLORIDE 0.9% 1,000 ML IV STA ×2 (03:59→06:38)
[2023-01-02] MEDS ORDERED: KETOROLAC 30 MG/ML VIAL IVP STA (04:00)
[2023-01-02] MEDS ORDERED: DROPERIDOL 5 MG/2 ML VIAL IVP STA ×3 (04:00→10:11)
--- OUTSIDE RECORDS SUMMARY | 2023-01-02 04:01 | EXTERNAL MEDICAL SUMMARY RPT | Continuity of Care Document ---
Author Name Unknown Address [address] [place] [address] Phone Organization [facility] Address [address] [place] [address] Phone Care Team Providers Care Building Code Inspector Name Role Phone Unavailable Unavailable Unavailable Sergo Martino Unavailable Unavailable Allergies and Intolerances date description facility type (no date) Mild [facility] (unknown) (no date) latex [facility] (unknown) (no date) metoclopramide [facility] (unknown) (no date) promethazine [facility] (unknown) Medications date description facility 2022-11-02 00:00 Ondansetron [facility] 2022-10-10 00:00 Promethazine [facility] Problems date description facility 2022-11-12 07:41 Nausea with vomiting, unspecifi ed [facility] Procedures date description facility 2022-10-10 00:00 XR abdomen 1V [facility] Results/Labs test date author facility value unit interpretation Result panel 1 (unknown) (no date) (unknown) [facility] (no value) (units unknown) (unknown) Result panel 2 (unknown) (no date) (unknown) [facility] (no value) (units unknown) (unknown) Result panel 3 (unknown) (no date) (unknown) [facility] (no value) (units unknown) (unknown) Result panel 4 (unknown) (no date) (unknown) [facility] (no value) (units unknown) (unknown) Result panel 5 (unknown) (no date) (unknown) [facility] (no value) (units unknown) (unknown) Result panel 6 (unknown) (no date) (unknown) [facility] (no value) (units unknown) (unknown) Result panel 7 (unknown) (no date) (unknown) [facility] (no value) (units unknown) (unknown) Result panel 8 (unknown) (no date) (unknown) [facility] (no value) (units unknown) (unknown) Result panel 9 (unknown) (no date) (unknown) [facility] (no value) (units unknown) (unknown) Result panel 10 (unknown) (no date) (unknown) [facility] (no value) (units unknown) (unknown) Result panel 11 (unknown) (no date) (unknown) [facility] (no value) (units unknown) (unknown) Result panel 12 (unknown) (no date) (unknown) [facility] (no value) (units unknown) (unknown) Result panel 13 (unknown) (no date) (unknown) [facility] (no value) (units unknown) (unknown) Result panel 14 (unknown) (no date) (unknown) [facility] (no value) (units unknown) (unknown) Result panel 15 (unknown) (no date) (unknown) [facility] (no value) (units unknown) (unknown) Result panel 16 (unknown) (no date) (unknown) [facility] (no value) (units unknown) (unknown) Result panel 17 (unknown) (no date) (unknown) [facility] (no value) (units unknown) (unknown) Result panel 18 (unknown) (no date) (unknown) [facility] (no value) (units unknown) (unknown) Result panel 19 (unknown) (no date) (unknown) [facility] (no value) (units unknown) (unknown) Result panel 20 (unknown) (no date) (unknown) [facility] (no value) (units unknown) (unknown) Result panel 21 (unknown) (no date) (unknown) [facility] (no value) (units unknown) (unknown) Result panel 22 (unknown) (no date) (unknown) [facility] (no value) (units unknown) (unknown) Result panel 23 (unknown) (no date) (unknown) [facility] (no value) (units unknown) (unknown) Result panel 24 (unknown) (no date) (unknown) [facility] (no value) (units unknown) (unknown) Result panel 25 (unknown) (no date) (unknown) [facility] (no value) (units unknown) (unknown) Result panel 26 (unknown) (no date) (unknown) [facility] (no value) (units unknown) (unknown) Result panel 27 (unknown) (no date) (unknown) [facility] (no value) (units unknown) (unknown) Result panel 28 (unknown) (no date) (unknown) [facility] (no value) (units unknown) (unknown) Result panel 29 (unknown) (no date) (unknown) [facility] (no value) (units unknown) (unknown) Result panel 30 (unknown) (no date) (unknown) [facility] (no value) (units unknown) (unknown) Result panel 31 (unknown) (no date) (unknown) [facility] (no value) (units unknown) (unknown) Result panel 32 (unknown) (no date) (unknown) [facility] (no value) (units unknown) (unknown) Result panel 33 (unknown) (no date) (unknown) [facility] (no value) (units unknown) (unknown) Result panel 34 (unknown) (no date) (unknown) [facility] (no value) (units unknown) (unknown) Result panel 35 (unknown) (no date) (unknown) [facility] (no value) (units unknown) (unknown) Result panel 36 (unknown) (no date) (unknown) [facility] (no value) (units unknown) (unknown) Result panel 37 (unknown) (no date) (unknown) [facility] (no value) (units unknown) (unknown) Result panel 38 (unknown) (no date) (unknown) [facility] (no value) (units unknown) (unknown) Result panel 39 (unknown) (no date) (unknown) [facility] (no value) (units unknown) (unknown) Result panel 40 (unknown) (no date) (unknown) [facility] (no value) (units unknown) (unknown) Result panel 41 (unknown) (no date) (unknown) [facility] (no value) (units unknown) (unknown) Result panel 42 (unknown) (no date) (unknown) [facility] (no value) (units unknown) (unknown) Result panel 43 (unknown) (no date) (unknown) [facility] (no value) (units unknown) (unknown) Result panel 44 (unknown) (no date) (unknown) [facility] (no value) (units unknown) (unknown) Result panel 45 (unknown) (no date) (unknown) [facility] (no value) (units unknown) (unknown) Result panel 46 (unknown) (no date) (unknown) [facility] (no value) (units unknown) (unknown) Result panel 47 (unknown) (no date) (unknown) [facility] (no value) (units unknown) (unknown) Result panel 48 (unknown) (no date) (unknown) [facility] (no value) (units unknown) (unknown) Result panel 49 (unknown) (no date) (unknown) [facility] (no value) (units unknown) (unknown) Result panel 50 (unknown) (no date) (unknown) [facility] (no value) (units unknown) (unknown) Result panel 51 (unknown) (no date) (unknown) [facility] (no value) (units unknown) (unknown) Result panel 52 (unknown) (no date) (unknown) [facility] (no value) (units unknown) (unknown) Result panel 53 (unknown) (no date) (unknown) [facility] (no value) (units unknown) (unknown) Result panel 54 (unknown) (no date) (unknown) [facility] (no value) (units unknown) (unknown) Result panel 55 (unknown) (no date) (unknown) [facility] (no value) (units unknown) (unknown) Result panel 56 (unknown) (no date) (unknown) [facility] (no value) (units unknown) (unknown) Result panel 57 (unknown) (no date) (unknown) [facility] (no value) (units unknown) (unknown) Result panel 58 (unknown) (no date) (unknown) [facility] (no value) (units unknown) (unknown) Result panel 59 (unknown) (no date) (unknown) [facility] (no value) (units unknown) (unknown) Result panel 60 (unknown) (no date) (unknown) [facility] (no value) (units unknown) (unknown) Result panel 61 (unknown) (no date) (unknown) [facility] (no value) (units unknown) (unknown) Result panel 62 (unknown) (no date) (unknown) [facility] (no value) (units unknown) (unknown) Result panel 63 (unknown) (no date) (unknown) [facility] (no value) (units unknown) (unknown) Result panel 64 (unknown) (no date) (unknown) [facility] (no value) (units unknown) (unknown) Result panel 65 (unknown) (no date) (unknown) [facility] (no value) (units unknown) (unknown) Result panel 66 (unknown) (no date) (unknown) [facility] (no value) (units unknown) (unknown) Result panel 67 (unknown) (no date) (unknown) [facility] (no value) (units unknown) (unknown) Result panel 68 (unknown) (no date) (unknown) [facility] (no value) (units unknown) (unknown) Result panel 69 (unknown) (no date) (unknown) [facility] (no value) (units unknown) (unknown) Result panel 70 (unknown) (no date) (unknown) [facility] (no value) (units unknown) (unknown) Result panel 71 (unknown) (no date) (unknown) [facility] (no value) (units unknown) (unknown) Result panel 72 (unknown) (no date) (unknown) [facility] (no value) (units unknown) (unknown) Result panel 73 (unknown) (no date) (unknown) [facility] (no value) (units unknown) (unknown) Result panel 74 (unknown) (no date) (unknown) [facility] (no value) (units unknown) (unknown) Result panel 75 (unknown) (no date) (unknown) [facility] (no value) (units unknown) (unknown) Result panel 76 (unknown) (no date) (unknown) [facility] (no value) (units unknown) (unknown) Result panel 77 (unknown) (no date) (unknown) [facility] (no value) (units unknown) (unknown) Result panel 78 (unknown) (no date) (unknown) [facility] (no value) (units unknown) (unknown) Result panel 79 (unknown) (no date) (unknown) [facility] (no value) (units unknown) (unknown) Result panel 80 (unknown) (no date) (unknown) [facility] (no value) (units unknown) (unknown) Result panel 81 (unknown) (no date) (unknown) [facility] (no value) (units unknown) (unknown) Result panel 82 (unknown) (no date) (unknown) [facility] (no value) (units unknown) (unknown) Result panel 83 (unknown) (no date) (unknown) [facility] (no value) (units unknown) (unknown) Result panel 84 (unknown) (no date) (unknown) [facility] (no value) (units unknown) (unknown) Result panel 85 (unknown) (no date) (unknown) [facility] (no value) (units unknown) (unknown) Result panel 86 (unknown) (no date) (unknown) [facility] (no value) (units unknown) (unknown) Result panel 87 (unknown) (no date) (unknown) [facility] (no value) (units unknown) (unknown) Result panel 88 (unknown) (no date) (unknown) [facility] (no value) (units unknown) (unknown) Result panel 89 (unknown) (no date) (unknown) [facility] (no value) (units unknown) (unknown) Result panel 90 (unknown) (no date) (unknown) [facility] (no value) (units unknown) (unknown) Result panel 91 (unknown) (no date) (unknown) [facility] (no value) (units unknown) (unknown) Result panel 92 (unknown) (no date) (unknown) [facility] (no value) (units unknown) (unknown) Result panel 93 (unknown) (no date) (unknown) [facility] (no value) (units unknown) (unknown) Result panel 94 (unknown) (no date) (unknown) [facility] (no value) (units unknown) (unknown) Result panel 95 (unknown) (no date) (unknown) [facility] (no value) (units unknown) (unknown) Result panel 96 (unknown) (no date) (unknown) [facility] (no value) (units unknown) (unknown) Result panel 97 (unknown) (no date) (unknown) [facility] (no value) (units unknown) (unknown) Result panel 98 (unknown) (no date) (unknown) [facility] (no value) (units unknown) (unknown) Result panel 99 (unknown) (no date) (unknown) [facility] (no value) (units unknown) (unknown) Result panel 100 (unknown) (no date) (unknown) [facility] (no value) (units unknown) (unknown) Result panel 101 (unknown) (no date) (unknown) [facility] (no value) (units unknown) (unknown) Result panel 102 (unknown) (no date) (unknown) [facility] (no value) (units unknown) (unknown) Result panel 103 (unknown) (no date) (unknown) [facility] (no value) (units unknown) (unknown) Result panel 104 (unknown) (no date) (unknown) [facility] (no value) (units unknown) (unknown) Result panel 105 (unknown) (no date) (unknown) [facility] (no value) (units unknown) (unknown) Result panel 106 (unknown) (no date) (unknown) [facility] (no value) (units unknown) (unknown) Result panel 107 (unknown) (no date) (unknown) [facility] (no value) (units unknown) (unknown) Result panel 108 (unknown) (no date) (unknown) [facility] (no value) (units unknown) (unknown) Result panel 109 (unknown) (no date) (unknown) [facility] (no value) (units unknown) (unknown) Result panel 110 (unknown) (no date) (unknown) [facility] (no value) (units unknown) (unknown) Result panel 111 (unknown) (no date) (unknown) [facility] (no value) (units unknown) (unknown) Result panel 112 (unknown) (no date) (unknown) [facility] (no value) (units unknown) (unknown) Result panel 113 (unknown) (no date) (unknown) [facility] (no value) (units unknown) (unknown) Result panel 114 (unknown) (no date) (unknown) [facility] (no value) (units unknown) (unknown) Result panel 115 (unknown) (no date) (unknown) [facility] (no value) (units unknown) (unknown) Result panel 116 (unknown) (no date) (unknown) [facility] (no value) (units unknown) (unknown) Result panel 117 (unknown) (no date) (unknown) [facility] (no value) (units unknown) (unknown) Result panel 118 (unknown) (no date) (unknown) [facility] (no value) (units unknown) (unknown) Result panel 119 (unknown) (no date) (unknown) [facility] (no value) (units unknown) (unknown) Result panel 120 (unknown) (no date) (unknown) [facility] (no value) (units unknown) (unknown) Result panel 121 (unknown) (no date) (unknown) [facility] (no value) (units unknown) (unknown) Result panel 122 (unknown) (no date) (unknown) [facility] (no value) (units unknown) (unknown) Result panel 123 (unknown) (no date) (unknown) [facility] (no value) (units unknown) (unknown) Result panel 124 (unknown) (no date) (unknown) [facility] (no value) (units unknown) (unknown) Result panel 125 (unknown) (no date) (unknown) [facility] (no value) (units unknown) (unknown) Result panel 126 (unknown) (no date) (unknown) [facility] (no value) (units unknown) (unknown) Result panel 127 (unknown) (no date) (unknown) [facility] (no value) (units unknown) (unknown) Result panel 128 (unknown) (no date) (unknown) [facility] (no value) (units unknown) (unknown) Result panel 129 (unknown) (no date) (unknown) [facility] (no value) (units unknown) (unknown) Result panel 130 (unknown) (no date) (unknown) [facility] (no value) (units unknown) (unknown) Result panel 131 (unknown) (no date) (unknown) [facility] (no value) (units unknown) (unknown) Result panel 132 (unknown) (no date) (unknown) [facility] (no value) (units unknown) (unknown) Result panel 133 (unknown) (no date) (unknown) [facility] (no value) (units unknown) (unknown) Result panel 134 (unknown) (no date) (unknown) [facility] (no value) (units unknown) (unknown) Result panel 135 (unknown) (no date) (unknown) [facility] (no value) (units unknown) (unknown) Result panel 136 (unknown) (no date) (unknown) [facility] (no value) (units unknown) (unknown) Result panel 137 (unknown) (no date) (unknown) [facility] (no value) (units unknown) (unknown) Result panel 138 (unknown) (no date) (unknown) [facility] (no value) (units unknown) (unknown) Result panel 139 (unknown) (no date) (unknown) [facility] (no value) (units unknown) (unknown) Result panel 140 (unknown) (no date) (unknown) [facility] (no value) (units unknown) (unknown) Result panel 141 (unknown) (no date) (unknown) [facility] (no value) (units unknown) (unknown) Result panel 142 (unknown) (no date) (unknown) [facility] (no value) (units unknown) (unknown) Result panel 143 (unknown) (no date) (unknown) [facility] (no value) (units unknown) (unknown) Result panel 144 (unknown) (no date) (unknown) [facility] (no value) (units unknown) (unknown) Result panel 145 (unknown) (no date) (unknown) [facility] (no value) (units unknown) (unknown) Result panel 146 (unknown) (no date) (unknown) [facility] (no value) (units unknown) (unknown) Result panel 147 (unknown) (no date) (unknown) [facility] (no value) (units unknown) (unknown) Result panel 148 (unknown) (no date) (unknown) [facility] (no value) (units unknown) (unknown) Result panel 149 (unknown) (no date) (unknown) [facility] (no value) (units unknown) (unknown) Result panel 150 (unknown) (no date) (unknown) [facility] (no value) (units unknown) (unknown) Result panel 151 (unknown) (no date) (unknown) [facility] (no value) (units unknown) (unknown) Result panel 152 (unknown) (no date) (unknown) [facility] (no value) (units unknown) (unknown) Result panel 153 (unknown) (no date) (unknown) [facility] (no value) (units unknown) (unknown) Result panel 154 (unknown) (no date) (unknown) [facility] (no value) (units unknown) (unknown) Result panel 155 (unknown) (no date) (unknown) [facility] (no value) (units unknown) (unknown) Result panel 156 (unknown) (no date) (unknown) [facility] (no value) (units unknown) (unknown) Result panel 157 (unknown) (no date) (unknown) [facility] (no value) (units unknown) (unknown) Result panel 158 (unknown) (no date) (unknown) [facility] (no value) (units unknown) (unknown) Result panel 159 (unknown) (no date) (unknown) [facility] (no value) (units unknown) (unknown) Result panel 160 (unknown) (no date) (unknown) [facility] (no value) (units unknown) (unknown) Result panel 161 (unknown) (no date) (unknown) [facility] (no value) (units unknown) (unknown) Result panel 162 (unknown) (no date) (unknown) [facility] (no value) (units unknown) (unknown) Result panel 163 (unknown) (no date) (unknown) [facility] (no value) (units unknown) (unknown) Result panel 164 (unknown) (no date) (unknown) [facility] (no value) (units unknown) (unknown) Result panel 165 (unknown) (no date) (unknown) [facility] (no value) (units unknown) (unknown) Result panel 166 (unknown) (no date) (unknown) [facility] (no value) (units unknown) (unknown) Result panel 167 (unknown) (no date) (unknown) [facility] (no value) (units unknown) (unknown) Result panel 168 (unknown) (no date) (unknown) [facility] (no value) (units unknown) (unknown) Result panel 169 (unknown) (no date) (unknown) [facility] (no value) (units unknown) (unknown) Result panel 170 (unknown) (no date) (unknown) [facility] (no value) (units unknown) (unknown) Result panel 171 (unknown) (no date) (unknown) [facility] (no value) (units unknown) (unknown) Result panel 172 (unknown) (no date) (unknown) [facility] (no value) (units unknown) (unknown) Result panel 173 (unknown) (no date) (unknown) [facility] (no value) (units unknown) (unknown) Result panel 174 (unknown) (no date) (unknown) [facility] (no value) (units unknown) (unknown) Result panel 175 (unknown) (no date) (unknown) [facility] (no value) (units unknown) (unknown) Result panel 176 (unknown) (no date) (unknown) [facility] (no value) (units unknown) (unknown) Result panel 177 (unknown) (no date) (unknown) [facility] (no value) (units unknown) (unknown) Result panel 178 (unknown) (no date) (unknown) [facility] (no value) (units unknown) (unknown) Result panel 179 (unknown) (no date) (unknown) [facility] (no value) (units unknown) (unknown) Result panel 180 (unknown) (no date) (unknown) [facility] (no value) (units unknown) (unknown) Result panel 181 (unknown) (no date) (unknown) [facility] (no value) (units unknown) (unknown) Result panel 182 (unknown) (no date) (unknown) [facility] (no value) (units unknown) (unknown) Result panel 183 (unknown) (no date) (unknown) [facility] (no value) (units unknown) (unknown) Result panel 184 (unknown) (no date) (unknown) [facility] (no value) (units unknown) (unknown) Result panel 185 (unknown) (no date) (unknown) [facility] (no value) (units unknown) (unknown) Result panel 186 (unknown) (no date) (unknown) [facility] (no value) (units unknown) (unknown) Result panel 187 (unknown) (no date) (unknown) [facility] (no value) (units unknown) (unknown) Result panel 188 (unknown) (no date) (unknown) [facility] (no value) (units unknown) (unknown) Result panel 189 (unknown) (no date) (unknown) [facility] (no value) (units unknown) (unknown) Result panel 190 (unknown) (no date) (unknown) [facility] (no value) (units unknown) (unknown) Result panel 191 (unknown) (no date) (unknown) [facility] (no value) (units unknown) (unknown) Result panel 192 (unknown) (no date) (unknown) [facility] (no value) (units unknown) (unknown) Result panel 193 (unknown) (no date) (unknown) [facility] (no value) (units unknown) (unknown) Result panel 194 (unknown) (no date) (unknown) [facility] (no value) (units unknown) (unknown) Result panel 195 (unknown) (no date) (unknown) [facility] (no value) (units unknown) (unknown) Result panel 196 (unknown) (no date) (unknown) [facility] (no value) (units unknown) (unknown) Result panel 197 (unknown) (no date) (unknown) [facility] (no value) (units unknown) (unknown) Result panel 198 (unknown) (no date) (unknown) [facility] (no value) (units unknown) (unknown) Result panel 199 (unknown) (no date) (unknown) [facility] (no value) (units unknown) (unknown) Result panel 200 (unknown) (no date) (unknown) [facility] (no value) (units unknown) (unknown) Result panel 201 (unknown) (no date) (unknown) [facility] (no value) (units unknown) (unknown) Result panel 202 (unknown) (no date) (unknown) [facility] (no value) (units unknown) (unknown) Result panel 203 (unknown) (no date) (unknown) [facility] (no value) (units unknown) (unknown) Result panel 204 (unknown) (no date) (unknown) [facility] (no value) (units unknown) (unknown) Result panel 205 (unknown) (no date) (unknown) [facility] (no value) (units unknown) (unknown) Result panel 206 (unknown) (no date) (unknown) [facility] (no value) (units unknown) (unknown) Result panel 207 (unknown) (no date) (unknown) [facility] (no value) (units unknown) (unknown) Result panel 208 (unknown) (no date) (unknown) [facility] (no value) (units unknown) (unknown) Result panel 209 (unknown) (no date) (unknown) [facility] (no value) (units unknown) (unknown) Result panel 210 (unknown) (no date) (unknown) [facility] (no value) (units unknown) (unknown) Result panel 211 (unknown) (no date) (unknown) [facility] (no value) (units unknown) (unknown) Result panel 212 (unknown) (no date) (unknown) [facility] (no value) (units unknown) (unknown) Result panel 213 (unknown) (no date) (unknown) [facility] (no value) (units unknown) (unknown) Result panel 214 (unknown) (no date) (unknown) [facility] (no value) (units unknown) (unknown) Result panel 215 (unknown) (no date) (unknown) [facility] (no value) (units unknown) (unknown) Result panel 216 (unknown) (no date) (unknown) [facility] (no value) (units unknown) (unknown) Result panel 217 (unknown) (no date) (unknown) [facility] (no value) (units unknown) (unknown) Result panel 218 (unknown) (no date) (unknown) [facility] (no value) (units unknown) (unknown) Result panel 219 (unknown) (no date) (unknown) [facility] (no value) (units unknown) (unknown) Result panel 220 (unknown) (no date) (unknown) [facility] (no value) (units unknown) (unknown) Result panel 221 (unknown) (no date) (unknown) [facility] (no value) (units unknown) (unknown) Result panel 222 (unknown) (no date) (unknown) [facility] (no value) (units unknown) (unknown) Result panel 223 (unknown) (no date) (unknown) [facility] (no value) (units unknown) (unknown) Result panel 224 (unknown) (no date) (unknown) [facility] (no value) (units unknown) (unknown) Result panel 225 (unknown) (no date) (unknown) [facility] (no value) (units unknown) (unknown) Result panel 226 (unknown) (no date) (unknown) [facility] (no value) (units unknown) (unknown) Result panel 227 (unknown) (no date) (unknown) [facility] (no value) (units unknown) (unknown) Result panel 228 (unknown) (no date) (unknown) [facility] (no value) (units unknown) (unknown) Result panel 229 (unknown) (no date) (unknown) [facility] (no value) (units unknown) (unknown) Result panel 230 (unknown) (no date) (unknown) [facility] (no value) (units unknown) (unknown) Result panel 231 (unknown) (no date) (unknown) [facility] (no value) (units unknown) (unknown) Result panel 232 (unknown) (no date) (unknown) [facility] (no value) (units unknown) (unknown) Result panel 233 (unknown) (no date) (unknown) [facility] (no value) (units unknown) (unknown) Result panel 234 (unknown) (no date) (unknown) [facility] (no value) (units unknown) (unknown) Result panel 235 (unknown) (no date) (unknown) [facility] (no value) (units unknown) (unknown) Result panel 236 (unknown) (no date) (unknown) [facility] (no value) (units unknown) (unknown) Result panel 237 (unknown) (no date) (unknown) [facility] (no value) (units unknown) (unknown) Result panel 238 (unknown) (no date) (unknown) [facility] (no value) (units unknown) (unknown) Result panel 239 (unknown) (no date) (unknown) [facility] (no value) (units unknown) (unknown) Result panel 240 (unknown) (no date) (unknown) [facility] (no value) (units unknown) (unknown) Result panel 241 (unknown) (no date) (unknown) [facility] (no value) (units unknown) (unknown) Result panel 242 (unknown) (no date) (unknown) [facility] (no value) (units unknown) (unknown) Result panel 243 (unknown) (no date) (unknown) [facility] (no value) (units unknown) (unknown) Result panel 244 (unknown) (no date) (unknown) [facility] (no value) (units unknown) (unknown) Result panel 245 (unknown) (no date) (unknown) [facility] (no value) (units unknown) (unknown) Result panel 246 (unknown) (no date) (unknown) [facility] (no value) (units unknown) (unknown) Result panel 247 (unknown) (no date) (unknown) [facility] (no value) (units unknown) (unknown) Result panel 248 (unknown) (no date) (unknown) [facility] (no value) (units unknown) (unknown) Result panel 249 (unknown) (no date) (unknown) [facility] (no value) (units unknown) (unknown) Result panel 250 (unknown) (no date) (unknown) [facility] (no value) (units unknown) (unknown) Result panel 251 (unknown) (no date) (unknown) [facility] (no value) (units unknown) (unknown) Result panel 252 (unknown) (no date) (unknown) [facility] (no value) (units unknown) (unknown) Result panel 253 (unknown) (no date) (unknown) [facility] (no value) (units unknown) (unknown) Result panel 254 (unknown) (no date) (unknown) [facility] (no value) (units unknown) (unknown) Result panel 255 (unknown) (no date) (unknown) [facility] (no value) (units unknown) (unknown) Result panel 256 (unknown) (no date) (unknown) [facility] (no value) (units unknown) (unknown) Result panel 257 (unknown) (no date) (unknown) [facility] (no value) (units unknown) (unknown) Result panel 258 (unknown) (no date) (unknown) [facility] (no value) (units unknown) (unknown) Result panel 259 (unknown) (no date) (unknown) [facility] (no value) (units unknown) (unknown) Result panel 260 (unknown) (no date) (unknown) [facility] (no value) (units unknown) (unknown) Result panel 261 (unknown) (no date) (unknown) [facility] (no value) (units unknown) (unknown) Result panel 262 (unknown) (no date) (unknown) [facility] (no value) (units unknown) (unknown) Result panel 263 (unknown) (no date) (unknown) [facility] (no value) (units unknown) (unknown) Result panel 264 (unknown) (no date) (unknown) [facility] (no value) (units unknown) (unknown) Result panel 265 (unknown) (no date) (unknown) [facility] (no value) (units unknown) (unknown) Result panel 266 (unknown) (no date) (unknown) [facility] (no value) (units unknown) (unknown) Result panel 267 (unknown) (no date) (unknown) [facility] (no value) (units unknown) (unknown) Result panel 268 (unknown) (no date) (unknown) [facility] (no value) (units unknown) (unknown) Result panel 269 (unknown) (no date) (unknown) [facility] (no value) (units unknown) (unknown) Result panel 270 (unknown) (no date) (unknown) [facility] (no value) (units unknown) (unknown) Result panel 271 (unknown) (no date) (unknown) [facility] (no value) (units unknown) (unknown) Result panel 272 (unknown) (no date) (unknown) [facility] (no value) (units unknown) (unknown) Result panel 273 (unknown) (no date) (unknown) [facility] (no value) (units unknown) (unknown) Result panel 274 (unknown) (no date) (unknown) [facility] (no value) (units unknown) (unknown) Result panel 275 (unknown) (no date) (unknown) [facility] (no value) (units unknown) (unknown) Result panel 276 (unknown) (no date) (unknown) [facility] (no value) (units unknown) (unknown) Result panel 277 (unknown) (no date) (unknown) [facility] (no value) (units unknown) (unknown) Result panel 278 (unknown) (no date) (unknown) [facility] (no value) (units unknown) (unknown) Result panel 279 (unknown) (no date) (unknown) [facility] (no value) (units unknown) (unknown) Result panel 280 (unknown) (no date) (unknown) [facility] (no value) (units unknown) (unknown) Result panel 281 (unknown) (no date) (unknown) [facility] (no value) (units unknown) (unknown) Result panel 282 (unknown) (no date) (unknown) [facility] (no value) (units unknown) (unknown) Result panel 283 (unknown) (no date) (unknown) [facility] (no value) (units unknown) (unknown) Result panel 284 (unknown) (no date) (unknown) [facility] (no value) (units unknown) (unknown) Result panel 285 (unknown) (no date) (unknown) [facility] (no value) (units unknown) (unknown) Result panel 286 (unknown) (no date) (unknown) [facility] (no value) (units unknown) (unknown) Result panel 287 (unknown) (no date) (unknown) [facility] (no value) (units unknown) (unknown) Result panel 288 (unknown) (no date) (unknown) [facility] (no value) (units unknown) (unknown) Result panel 289 (unknown) (no date) (unknown) [facility] (no value) (units unknown) (unknown) Result panel 290 (unknown) (no date) (unknown) [facility] (no value) (units unknown) (unknown) Result panel 291 (unknown) (no date) (unknown) [facility] (no value) (units unknown) (unknown) Result panel 292 (unknown) (no date) (unknown) [facility] (no value) (units unknown) (unknown) Result panel 293 (unknown) (no date) (unknown) [facility] (no value) (units unknown) (unknown) Result panel 294 (unknown) (no date) (unknown) [facility] (no value) (units unknown) (unknown) Result panel 295 (unknown) (no date) (unknown) [facility] (no value) (units unknown) (unknown) Result panel 296 (unknown) (no date) (unknown) [facility] (no value) (units unknown) (unknown) Result panel 297 (unknown) (no date) (unknown) [facility] (no value) (units unknown) (unknown) Result panel 298 (unknown) (no date) (unknown) [facility] (no value) (units unknown) (unknown) Result panel 299 (unknown) (no date) (unknown) [facility] (no value) (units unknown) (unknown) Result panel 300 (unknown) (no date) (unknown) [facility] (no value) (units unknown) (unknown) Result panel 301 (unknown) (no date) (unknown) [facility] (no value) (units unknown) (unknown) Result panel 302 (unknown) (no date) (unknown) [facility] (no value) (units unknown) (unknown) Result panel 303 (unknown) (no date) (unknown) [facility] (no value) (units unknown) (unknown) Result panel 304 (unknown) (no date) (unknown) [facility] (no value) (units unknown) (unknown) Result panel 305 (unknown) (no date) (unknown) [facility] (no value) (units unknown) (unknown) Result panel 306 (unknown) (no date) (unknown) [facility] (no value) (units unknown) (unknown) Result panel 307 (unknown) (no date) (unknown) [facility] (no value) (units unknown) (unknown) Result panel 308 (unknown) (no date) (unknown) [facility] (no value) (units unknown) (unknown) Result panel 309 (unknown) (no date) (unknown) [facility] (no value) (units unknown) (unknown) Result panel 310 (unknown) (no date) (unknown) [facility] (no value) (units unknown) (unknown) Result panel 311 (unknown) (no date) (unknown) [facility] (no value) (units unknown) (unknown) Result panel 312 (unknown) (no date) (unknown) [facility] (no value) (units unknown) (unknown) Result panel 313 (unknown) (no date) (unknown) [facility] (no value) (units unknown) (unknown) Result panel 314 (unknown) (no date) (unknown) [facility] (no value) (units unknown) (unknown) Result panel 315 (unknown) (no date) (unknown) [facility] (no value) (units unknown) (unknown) Result panel 316 (unknown) (no date) (unknown) [facility] (no value) (units unknown) (unknown) Result panel 317 (unknown) (no date) (unknown) [facility] (no value) (units unknown) (unknown) Result panel 318 (unknown) (no date) (unknown) [facility] (no value) (units unknown) (unknown) Result panel 319 (unknown) (no date) (unknown) [facility] (no value) (units unknown) (unknown) Result panel 320 (unknown) (no date) (unknown) [facility] (no value) (units unknown) (unknown) Result panel 321 (unknown) (no date) (unknown) [facility] (no value) (units unknown) (unknown) Result panel 322 (unknown) (no date) (unknown) [facility] (no value) (units unknown) (unknown) Result panel 323 (unknown) (no date) (unknown) [facility] (no value) (units unknown) (unknown) Result panel 324 (unknown) (no date) (unknown) [facility] (no value) (units unknown) (unknown) Result panel 325 (unknown) (no date) (unknown) [facility] (no value) (units unknown) (unknown) Result panel 326 (unknown) (no date) (unknown) [facility] (no value) (units unknown) (unknown) Result panel 327 (unknown) (no date) (unknown) [facility] (no value) (units unknown) (unknown) Result panel 328 (unknown) (no date) (unknown) [facility] (no value) (units unknown) (unknown) Result panel 329 (unknown) (no date) (unknown) [facility] (no value) (units unknown) (unknown) Result panel 330 (unknown) (no date) (unknown) [facility] (no value) (units unknown) (unknown) Result panel 331 (unknown) (no date) (unknown) [facility] (no value) (units unknown) (unknown) Result panel 332 (unknown) (no date) (unknown) [facility] (no value) (units unknown) (unknown) Result panel 333 (unknown) (no date) (unknown) [facility] (no value) (units unknown) (unknown) Result panel 334 (unknown) (no date) (unknown) [facility] (no value) (units unknown) (unknown) Result panel 335 (unknown) (no date) (unknown) [facility] (no value) (units unknown) (unknown) Result panel 336 (unknown) (no date) (unknown) [facility] (no value) (units unknown) (unknown) Result panel 337 (unknown) (no date) (unknown) [facility] (no value) (units unknown) (unknown) Result panel 338 (unknown) (no date) (unknown) [facility] (no value) (units unknown) (unknown) Result panel 339 (unknown) (no date) (unknown) [facility] (no value) (units unknown) (unknown) Result panel 340 (unknown) (no date) (unknown) [facility] (no value) (units unknown) (unknown) Result panel 341 (unknown) (no date) (unknown) [facility] (no value) (units unknown) (unknown) Result panel 342 (unknown) (no date) (unknown) [facility] (no value) (units unknown) (unknown) Result panel 343 (unknown) (no date) (unknown) [facility] (no value) (units unknown) (unknown) Result panel 344 (unknown) (no date) (unknown) [facility] (no value) (units unknown) (unknown) Result panel 345 (unknown) (no date) (unknown) [facility] (no value) (units unknown) (unknown) Result panel 346 (unknown) (no date) (unknown) [facility] (no value) (units unknown) (unknown) Result panel 347 (unknown) (no date) (unknown) [facility] (no value) (units unknown) (unknown) Result panel 348 (unknown) (no date) (unknown) [facility] (no value) (units unknown) (unknown) Result panel 349 (unknown) (no date) (unknown) [facility] (no value) (units unknown) (unknown) Result panel 350 (unknown) (no date) (unknown) [facility] (no value) (units unknown) (unknown) Result panel 351 (unknown) (no date) (unknown) [facility] (no value) (units unknown) (unknown) Result panel 352 (unknown) (no date) (unknown) [facility] (no value) (units unknown) (unknown) Result panel 353 (unknown) (no date) (unknown) [facility] (no value) (units unknown) (unknown) Result panel 354 (unknown) (no date) (unknown) [facility] (no value) (units unknown) (unknown) Result panel 355 (unknown) (no date) (unknown) [facility] (no value) (units unknown) (unknown) Result panel 356 (unknown) (no date) (unknown) [facility] (no value) (units unknown) (unknown) Result panel 357 (unknown) (no date) (unknown) [facility] (no value) (units unknown) (unknown) Result panel 358 (unknown) (no date) (unknown) [facility] (no value) (units unknown) (unknown) Result panel 359 (unknown) (no date) (unknown) [facility] (no value) (units unknown) (unknown) Result panel 360 (unknown) (no date) (unknown) [facility] (no value) (units unknown) (unknown) Result panel 361 (unknown) (no date) (unknown) [facility] (no value) (units unknown) (unknown) Result panel 362 (unknown) (no date) (unknown) [facility] (no value) (units unknown) (unknown) Result panel 363 (unknown) (no date) (unknown) [facility] (no value) (units unknown) (unknown) Result panel 364 (unknown) (no date) (unknown) [facility] (no value) (units unknown) (unknown) Result panel 365 (unknown) (no date) (unknown) [facility] (no value) (units unknown) (unknown) Result panel 366 (unknown) (no date) (unknown) [facility] (no value) (units unknown) (unknown) Result panel 367 (unknown) (no date) (unknown) [facility] (no value) (units unknown) (unknown) Result panel 368 (unknown) (no date) (unknown) [facility] (no value) (units unknown) (unknown) Result panel 369 (unknown) (no date) (unknown) [facility] (no value) (units unknown) (unknown) Result panel 370 (unknown) (no date) (unknown) [facility] (no value) (units unknown) (unknown) Result panel 371 (unknown) (no date) (unknown) [facility] (no value) (units unknown) (unknown) Result panel 372 (unknown) (no date) (unknown) [facility] (no value) (units unknown) (unknown) Result panel 373 (unknown) (no date) (unknown) [facility] (no value) (units unknown) (unknown) Result panel 374 (unknown) (no date) (unknown) [facility] (no value) (units unknown) (unknown) Result panel 375 (unknown) (no date) (unknown) [facility] (no value) (units unknown) (unknown) Result panel 376 (unknown) (no date) (unknown) [facility] (no value) (units unknown) (unknown) Result panel 377 (unknown) (no date) (unknown) [facility] (no value) (units unknown) (unknown) Result panel 378 (unknown) (no date) (unknown) [facility] (no value) (units unknown) (unknown) Result panel 379 (unknown) (no date) (unknown) [facility] (no value) (units unknown) (unknown) Result panel 380 (unknown) (no date) (unknown) [facility] (no value) (units unknown) (unknown) Result panel 381 (unknown) (no date) (unknown) [facility] (no value) (units unknown) (unknown) Result panel 382 (unknown) (no date) (unknown) [facility] (no value) (units unknown) (unknown) Result panel 383 (unknown) (no date) (unknown) [facility] (no value) (units unknown) (unknown) Result panel 384 (unknown) (no date) (unknown) [facility] (no value) (units unknown) (unknown) Result panel 385 (unknown) (no date) (unknown) [facility] (no value) (units unknown) (unknown) Result panel 386 (unknown) (no date) (unknown) [facility] (no value) (units unknown) (unknown) Result panel 387 (unknown) (no date) (unknown) [facility] (no value) (units unknown) (unknown) Result panel 388 (unknown) (no date) (unknown) [facility] (no value) (units unknown) (unknown) Result panel 389 (unknown) (no date) (unknown) [facility] (no value) (units unknown) (unknown) Result panel 390 (unknown) (no date) (unknown) [facility] (no value) (units unknown) (unknown) Result panel 391 (unknown) (no date) (unknown) [facility] (no value) (units unknown) (unknown) Result panel 392 (unknown) (no date) (unknown) [facility] (no value) (units unknown) (unknown) Result panel 393 (unknown) (no date) (unknown) [facility] (no value) (units unknown) (unknown) Result panel 394 (unknown) (no date) (unknown) [facility] (no value) (units unknown) (unknown) Result panel 395 (unknown) (no date) (unknown) [facility] (no value) (units unknown) (unknown) Result panel 396 (unknown) (no date) (unknown) [facility] (no value) (units unknown) (unknown) Result panel 397 (unknown) (no date) (unknown) [facility] (no value) (units unknown) (unknown) Result panel 398 (unknown) (no date) (unknown) [facility] (no value) (units unknown) (unknown) Result panel 399 (unknown) (no date) (unknown) [facility] (no value) (units unknown) (unknown) Result panel 400 (unknown) (no date) (unknown) [facility] (no value) (units unknown) (unknown) Result panel 401 (unknown) (no date) (unknown) [facility] (no value) (units unknown) (unknown) Result panel 402 (unknown) (no date) (unknown) [facility] (no value) (units unknown) (unknown) Result panel 403 (unknown) (no date) (unknown) [facility] (no value) (units unknown) (unknown) Result panel 404 (unknown) (no date) (unknown) [facility] (no value) (units unknown) (unknown) Result panel 405 (unknown) (no date) (unknown) [facility] (no value) (units unknown) (unknown) Result panel 406 (unknown) (no date) (unknown) [facility] (no value) (units unknown) (unknown) Result panel 407 (unknown) (no date) (unknown) [facility] (no value) (units unknown) (unknown) Result panel 408 (unknown) (no date) (unknown) [facility] (no value) (units unknown) (unknown) Result panel 409 (unknown) (no date) (unknown) [facility] (no value) (units unknown) (unknown) Result panel 410 (unknown) (no date) (unknown) [facility] (no value) (units unknown) (unknown) Result panel 411 (unknown) (no date) (unknown) [facility] (no value) (units unknown) (unknown) Result panel 412 (unknown) (no date) (unknown) [facility] (no value) (units unknown) (unknown) Result panel 413 (unknown) (no date) (unknown) [facility] (no value) (units unknown) (unknown) Result panel 414 (unknown) (no date) (unknown) [facility] (no value) (units unknown) (unknown) Result panel 415 (unknown) (no date) (unknown) [facility] (no value) (units unknown) (unknown) Result panel 416 (unknown) (no date) (unknown) [facility] (no value) (units unknown) (unknown) Result panel 417 (unknown) (no date) (unknown) [facility] (no value) (units unknown) (unknown) Result panel 418 (unknown) (no date) (unknown) [facility] (no value) (units unknown) (unknown) Result panel 419 (unknown) (no date) (unknown) [facility] (no value) (units unknown) (unknown) Result panel 420 (unknown) (no date) (unknown) [facility] (no value) (units unknown) (unknown) Result panel 421 (unknown) (no date) (unknown) [facility] (no value) (units unknown) (unknown) Result panel 422 (unknown) (no date) (unknown) [facility] (no value) (units unknown) (unknown) Result panel 423 (unknown) (no date) (unknown) [facility] (no value) (units unknown) (unknown) Result panel 424 (unknown) (no date) (unknown) [facility] (no value) (units unknown) (unknown) Result panel 425 (unknown) (no date) (unknown) [facility] (no value) (units unknown) (unknown) Result panel 426 (unknown) (no date) (unknown) [facility] (no value) (units unknown) (unknown) Result panel 427 (unknown) (no date) (unknown) [facility] (no value) (units unknown) (unknown) Result panel 428 (unknown) (no date) (unknown) [facility] (no value) (units unknown) (unknown) Result panel 429 (unknown) (no date) (unknown) [facility] (no value) (units unknown) (unknown) Result panel 430 (unknown) (no date) (unknown) [facility] (no value) (units unknown) (unknown) Result panel 431 (unknown) (no date) (unknown) [facility] (no value) (units unknown) (unknown) Result panel 432 (unknown) (no date) (unknown) [facility] (no value) (units unknown) (unknown) Result panel 433 (unknown) (no date) (unknown) [facility] (no value) (units unknown) (unknown) Result panel 434 (unknown) (no date) (unknown) [facility] (no value) (units unknown) (unknown) Result panel 435 (unknown) (no date) (unknown) [facility] (no value) (units unknown) (unknown) Result panel 436 (unknown) (no date) (unknown) [facility] (no value) (units unknown) (unknown) Result panel 437 (unknown) (no date) (unknown) [facility] (no value) (units unknown) (unknown) Result panel 438 (unknown) (no date) (unknown) [facility] (no value) (units unknown) (unknown) Result panel 439 (unknown) (no date) (unknown) [facility] (no value) (units unknown) (unknown) Result panel 440 (unknown) (no date) (unknown) [facility] (no value) (units unknown) (unknown) Result panel 441 (unknown) (no date) (unknown) [facility] (no value) (units unknown) (unknown) Result panel 442 (unknown) (no date) (unknown) [facility] (no value) (units unknown) (unknown) Result panel 443 (unknown) (no date) (unknown) [facility] (no value) (units unknown) (unknown) Result panel 444 (unknown) (no date) (unknown) [facility] (no value) (units unknown) (unknown) Result panel 445 (unknown) (no date) (unknown) [facility] (no value) (units unknown) (unknown) Result panel 446 (unknown) (no date) (unknown) [facility] (no value) (units unknown) (unknown) Result panel 447 (unknown) (no date) (unknown) [facility] (no value) (units unknown) (unknown) Result panel 448 (unknown) (no date) (unknown) [facility] (no value) (units unknown) (unknown) Result panel 449 (unknown) (no date) (unknown) [facility] (no value) (units unknown) (unknown) Result panel 450 (unknown) (no date) (unknown) [facility] (no value) (units unknown) (unknown) Result panel 451 (unknown) (no date) (unknown) [facility] (no value) (units unknown) (unknown) Result panel 452 (unknown) (no date) (unknown) [facility] (no value) (units unknown) (unknown) Result panel 453 (unknown) (no date) (unknown) [facility] (no value) (units unknown) (unknown) Result panel 454 (unknown) (no date) (unknown) [facility] (no value) (units unknown) (unknown) Result panel 455 (unknown) (no date) (unknown) [facility] (no value) (units unknown) (unknown) Result panel 456 (unknown) (no date) (unknown) [facility] (no value) (units unknown) (unknown) Result panel 457 (unknown) (no date) (unknown) [facility] (no value) (units unknown) (unknown) Result panel 458 (unknown) (no date) (unknown) [facility] (no value) (units unknown) (unknown) Result panel 459 (unknown) (no date) (unknown) [facility] (no value) (units unknown) (unknown) Result panel 460 (unknown) (no date) (unknown) [facility] (no value) (units unknown) (unknown) Result panel 461 (unknown) (no date) (unknown) [facility] (no value) (units unknown) (unknown) Result panel 462 (unknown) (no date) (unknown) [facility] (no value) (units unknown) (unknown) Result panel 463 (unknown) (no date) (unknown) [facility] (no value) (units unknown) (unknown) Result panel 464 (unknown) (no date) (unknown) [facility] (no value) (units unknown) (unknown) Result panel 465 (unknown) (no date) (unknown) [facility] (no value) (units unknown) (unknown) Result panel 466 (unknown) (no date) (unknown) [facility] (no value) (units unknown) (unknown) Result panel 467 (unknown) (no date) (unknown) [facility] (no value) (units unknown) (unknown) Result panel 468 (unknown) (no date) (unknown) [facility] (no value) (units unknown) (unknown) Result panel 469 (unknown) (no date) (unknown) [facility] (no value) (units unknown) (unknown) Result panel 470 (unknown) (no date) (unknown) [facility] (no value) (units unknown) (unknown) Result panel 471 (unknown) (no date) (unknown) [facility] (no value) (units unknown) (unknown) Result panel 472 (unknown) (no date) (unknown) [facility] (no value) (units unknown) (unknown) Result panel 473 (unknown) (no date) (unknown) [facility] (no value) (units unknown) (unknown) Result panel 474 (unknown) (no date) (unknown) [facility] (no value) (units unknown) (unknown) Result panel 475 (unknown) (no date) (unknown) [facility] (no value) (units unknown) (unknown) Result panel 476 (unknown) (no date) (unknown) [facility] (no value) (units unknown) (unknown) Result panel 477 (unknown) (no date) (unknown) [facility] (no value) (units unknown) (unknown) Result panel 478 (unknown) (no date) (unknown) [facility] (no value) (units unknown) (unknown) Result panel 479 (unknown) (no date) (unknown) [facility] (no value) (units unknown) (unknown) Result panel 480 (unknown) (no date) (unknown) [facility] (no value) (units unknown) (unknown) Result panel 481 (unknown) (no date) (unknown) [facility] (no value) (units unknown) (unknown) Result panel 482 (unknown) (no date) (unknown) [facility] (no value) (units unknown) (unknown) Result panel 483 (unknown) (no date) (unknown) [facility] (no value) (units unknown) (unknown) Result panel 484 (unknown) (no date) (unknown) [facility] (no value) (units unknown) (unknown) Result panel 485 (unknown) (no date) (unknown) [facility] (no value) (units unknown) (unknown) Result panel 486 (unknown) (no date) (unknown) [facility] (no value) (units unknown) (unknown) Result panel 487 (unknown) (no date) (unknown) [facility] (no value) (units unknown) (unknown) Result panel 488 (unknown) (no date) (unknown) [facility] (no value) (units unknown) (unknown) Result panel 489 (unknown) (no date) (unknown) [facility] (no value) (units unknown) (unknown) Result panel 490 (unknown) (no date) (unknown) [facility] (no value) (units unknown) (unknown) Result panel 491 (unknown) (no date) (unknown) [facility] (no value) (units unknown) (unknown) Result panel 492 (unknown) (no date) (unknown) [facility] (no value) (units unknown) (unknown) Result panel 493 (unknown) (no date) (unknown) [facility] (no value) (units unknown) (unknown) Result panel 494 (unknown) (no date) (unknown) [facility] (no value) (units unknown) (unknown) Result panel 495 (unknown) (no date) (unknown) [facility] (no value) (units unknown) (unknown) Result panel 496 (unknown) (no date) (unknown) [facility] (no value) (units unknown) (unknown) Result panel 497 (unknown) (no date) (unknown) [facility] (no value) (units unknown) (unknown) Result panel 498 (unknown) (no date) (unknown) [facility] (no value) (units unknown) (unknown) Result panel 499 (unknown) (no date) (unknown) [facility] (no value) (units unknown) (unknown) Result panel 500 (unknown) (no date) (unknown) [facility] (no value) (units unknown) (unknown) Result panel 501 (unknown) (no date) (unknown) [facility] (no value) (units unknown) (unknown) Result panel 502 (unknown) (no date) (unknown) [facility] (no value) (units unknown) (unknown) Result panel 503 (unknown) (no date) (unknown) [facility] (no value) (units unknown) (unknown) Result panel 504 (unknown) (no date) (unknown) [facility] (no value) (units unknown) (unknown) Result panel 505 (unknown) (no date) (unknown) [facility] (no value) (units unknown) (unknown) Result panel 506 (unknown) (no date) (unknown) [facility] (no value) (units unknown) (unknown) Result panel 507 (unknown) (no date) (unknown) [facility] (no value) (units unknown) (unknown) Result panel 508 (unknown) (no date) (unknown) [facility] (no value) (units unknown) (unknown) Result panel 509 (unknown) (no date) (unknown) [facility] (no value) (units unknown) (unknown) Result panel 510 (unknown) (no date) (unknown) [facility] (no value) (units unknown) (unknown) Result panel 511 (unknown) (no date) (unknown) [facility] (no value) (units unknown) (unknown) Result panel 512 (unknown) (no date) (unknown) [facility] (no value) (units unknown) (unknown) Result panel 513 (unknown) (no date) (unknown) [facility] (no value) (units unknown) (unknown) Result panel 514 (unknown) (no date) (unknown) [facility] (no value) (units unknown) (unknown) Result panel 515 (unknown) (no date) (unknown) [facility] (no value) (units unknown) (unknown) Result panel 516 (unknown) (no date) (unknown) [facility] (no value) (units unknown) (unknown) Result panel 517 (unknown) (no date) (unknown) [facility] (no value) (units unknown) (unknown) Result panel 518 (unknown) (no date) (unknown) [facility] (no value) (units unknown) (unknown) Result panel 519 (unknown) (no date) (unknown) [facility] (no value) (units unknown) (unknown) Result panel 520 (unknown) (no date) (unknown) [facility] (no value) (units unknown) (unknown) Result panel 521 (unknown) (no date) (unknown) [facility] (no value) (units unknown) (unknown) Result panel 522 (unknown) (no date) (unknown) [facility] (no value) (units unknown) (unknown) Result panel 523 (unknown) (no date) (unknown) [facility] (no value) (units unknown) (unknown) Result panel 524 (unknown) (no date) (unknown) [facility] (no value) (units unknown) (unknown) Result panel 525 (unknown) (no date) (unknown) [facility] (no value) (units unknown) (unknown) Result panel 526 (unknown) (no date) (unknown) [facility] (no value) (units unknown) (unknown) Result panel 527 (unknown) (no date) (unknown) [facility] (no value) (units unknown) (unknown) Result panel 528 (unknown) (no date) (unknown) [facility] (no value) (units unknown) (unknown) Result panel 529 (unknown) (no date) (unknown) [facility] (no value) (units unknown) (unknown) Result panel 530 (unknown) (no date) (unknown) [facility] (no value) (units unknown) (unknown) Result panel 531 (unknown) (no date) (unknown) [facility] (no value) (units unknown) (unknown) Result panel 532 (unknown) (no date) (unknown) [facility] (no value) (units unknown) (unknown) Result panel 533 (unknown) (no date) (unknown) [facility] (no value) (units unknown) (unknown) Result panel 534 (unknown) (no date) (unknown) [facility] (no value) (units unknown) (unknown) Result panel 535 (unknown) (no date) (unknown) [facility] (no value) (units unknown) (unknown) Result panel 536 (unknown) (no date) (unknown) [facility] (no value) (units unknown) (unknown) Result panel 537 (unknown) (no date) (unknown) [facility] (no value) (units unknown) (unknown) Result panel 538 (unknown) (no date) (unknown) [facility] (no value) (units unknown) (unknown) Result panel 539 (unknown) (no date) (unknown) [facility] (no value) (units unknown) (unknown) Result panel 540 (unknown) (no date) (unknown) [facility] (no value) (units unknown) (unknown) Result panel 541 (unknown) (no date) (unknown) [facility] (no value) (units unknown) (unknown) Result panel 542 (unknown) (no date) (unknown) [facility] (no value) (units unknown) (unknown) Result panel 543 (unknown) (no date) (unknown) [facility] (no value) (units unknown) (unknown) Result panel 544 (unknown) (no date) (unknown) [facility] (no value) (units unknown) (unknown) Result panel 545 (unknown) (no date) (unknown) [facility] (no value) (units unknown) (unknown) Result panel 546 (unknown) (no date) (unknown) [facility] (no value) (units unknown) (unknown) Result panel 547 (unknown) (no date) (unknown) [facility] (no value) (units unknown) (unknown) Result panel 548 (unknown) (no date) (unknown) [facility] (no value) (units unknown) (unknown) Result panel 549 (unknown) (no date) (unknown) [facility] (no value) (units unknown) (unknown) Result panel 550 (unknown) (no date) (unknown) [facility] (no value) (units unknown) (unknown) Result panel 551 (unknown) (no date) (unknown) [facility] (no value) (units unknown) (unknown) Result panel 552 (unknown) (no date) (unknown) [facility] (no value) (units unknown) (unknown) Result panel 553 (unknown) (no date) (unknown) [facility] (no value) (units unknown) (unknown) Result panel 554 (unknown) (no date) (unknown) [facility] (no value) (units unknown) (unknown) Result panel 555 (unknown) (no date) (unknown) [facility] (no value) (units unknown) (unknown) Result panel 556 (unknown) (no date) (unknown) [facility] (no value) (units unknown) (unknown) Result panel 557 (unknown) (no date) (unknown) [facility] (no value) (units unknown) (unknown) Result panel 558 (unknown) (no date) (unknown) [facility] (no value) (units unknown) (unknown) Result panel 559 (unknown) (no date) (unknown) [facility] (no value) (units unknown) (unknown) Result panel 560 (unknown) (no date) (unknown) [facility] (no value) (units unknown) (unknown) Result panel 561 (unknown) (no date) (unknown) [facility] (no value) (units unknown) (unknown) Result panel 562 (unknown) (no date) (unknown) [facility] (no value) (units unknown) (unknown) Result panel 563 (unknown) (no date) (unknown) [facility] (no value) (units unknown) (unknown) Result panel 564 (unknown) (no date) (unknown) [facility] (no value) (units unknown) (unknown) Result panel 565 (unknown) (no date) (unknown) [facility] (no value) (units unknown) (unknown) Result panel 566 (unknown) (no date) (unknown) [facility] (no value) (units unknown) (unknown) Result panel 567 (unknown) (no date) (unknown) [facility] (no value) (units unknown) (unknown) Result panel 568 (unknown) (no date) (unknown) [facility] (no value) (units unknown) (unknown) Result panel 569 (unknown) (no date) (unknown) [facility] (no value) (units unknown) (unknown) Result panel 570 (unknown) (no date) (unknown) [facility] (no value) (units unknown) (unknown) Result panel 571 (unknown) (no date) (unknown) [facility] (no value) (units unknown) (unknown) Result panel 572 (unknown) (no date) (unknown) [facility] (no value) (units unknown) (unknown) Result panel 573 (unknown) (no date) (unknown) [facility] (no value) (units unknown) (unknown) Result panel 574 (unknown) (no date) (unknown) [facility] (no value) (units unknown) (unknown) Result panel 575 (unknown) (no date) (unknown) [facility] (no value) (units unknown) (unknown) Result panel 576 (unknown) (no date) (unknown) [facility] (no value) (units unknown) (unknown) Result panel 577 (unknown) (no date) (unknown) [facility] (no value) (units unknown) (unknown) Result panel 578 (unknown) (no date) (unknown) [facility] (no value) (units unknown) (unknown) Result panel 579 (unknown) (no date) (unknown) [facility] (no value) (units unknown) (unknown) Result panel 580 (unknown) (no date) (unknown) [facility] (no value) (units unknown) (unknown) Result panel 581 (unknown) (no date) (unknown) [facility] (no value) (units unknown) (unknown) Result panel 582 (unknown) (no date) (unknown) [facility] (no value) (units unknown) (unknown) Result panel 583 (unknown) (no date) (unknown) [facility] (no value) (units unknown) (unknown) Result panel 584 (unknown) (no date) (unknown) [facility] (no value) (units unknown) (unknown) Result panel 585 (unknown) (no date) (unknown) [facility] (no value) (units unknown) (unknown) Result panel 586 (unknown) (no date) (unknown) [facility] (no value) (units unknown) (unknown) Result panel 587 (unknown) (no date) (unknown) [facility] (no value) (units unknown) (unknown) Result panel 588 (unknown) (no date) (unknown) [facility] (no value) (units unknown) (unknown) Result panel 589 (unknown) (no date) (unknown) [facility] (no value) (units unknown) (unknown) Result panel 590 (unknown) (no date) (unknown) [facility] (no value) (units unknown) (unknown) Result panel 591 (unknown) (no date) (unknown) [facility] (no value) (units unknown) (unknown) Result panel 592 (unknown) (no date) (unknown) [facility] (no value) (units unknown) (unknown) Result panel 593 (unknown) (no date) (unknown) [facility] (no value) (units unknown) (unknown) Result panel 594 (unknown) (no date) (unknown) [facility] (no value) (units unknown) (unknown) Result panel 595 (unknown) (no date) (unknown) [facility] (no value) (units unknown) (unknown) Result panel 596 (unknown) (no date) (unknown) [facility] (no value) (units unknown) (unknown) Result panel 597 (unknown) (no date) (unknown) [facility] (no value) (units unknown) (unknown) Result panel 598 (unknown) (no date) (unknown) [facility] (no value) (units unknown) (unknown) Result panel 599 (unknown) (no date) (unknown) [facility] (no value) (units unknown) (unknown) Result panel 600 (unknown) (no date) (unknown) [facility] (no value) (units unknown) (unknown) Result panel 601 (unknown) (no date) (unknown) [facility] (no value) (units unknown) (unknown) Result panel 602 (unknown) (no date) (unknown) [facility] (no value) (units unknown) (unknown) Result panel 603 (unknown) (no date) (unknown) [facility] (no value) (units unknown) (unknown) Result panel 604 (unknown) (no date) (unknown) [facility] (no value) (units unknown) (unknown) Result panel 605 (unknown) (no date) (unknown) [facility] (no value) (units unknown) (unknown) Result panel 606 (unknown) (no date) (unknown) [facility] (no value) (units unknown) (unknown) Result panel 607 (unknown) (no date) (unknown) [facility] (no value) (units unknown) (unknown) Result panel 608 (unknown) (no date) (unknown) [facility] (no value) (units unknown) (unknown) Result panel 609 (unknown) (no date) (unknown) [facility] (no value) (units unknown) (unknown) Result panel 610 (unknown) (no date) (unknown) [facility] (no value) (units unknown) (unknown) Result panel 611 (unknown) (no date) (unknown) [facility] (no value) (units unknown) (unknown) Result panel 612 (unknown) (no date) (unknown) [facility] (no value) (units unknown) (unknown) Result panel 613 (unknown) (no date) (unknown) [facility] (no value) (units unknown) (unknown) Result panel 614 (unknown) (no date) (unknown) [facility] (no value) (units unknown) (unknown) Result panel 615 (unknown) (no date) (unknown) [facility] (no value) (units unknown) (unknown) Result panel 616 (unknown) (no date) (unknown) [facility] (no value) (units unknown) (unknown) Result panel 617 (unknown) (no date) (unknown) [facility] (no value) (units unknown) (unknown) Result panel 618 (unknown) (no date) (unknown) [facility] (no value) (units unknown) (unknown) Result panel 619 (unknown) (no date) (unknown) [facility] (no value) (units unknown) (unknown) Result panel 620 (unknown) (no date) (unknown) [facility] (no value) (units unknown) (unknown) Result panel 621 (unknown) (no date) (unknown) [facility] (no value) (units unknown) (unknown) Result panel 622 (unknown) (no date) (unknown) [facility] (no value) (units unknown) (unknown) Result panel 623 (unknown) (no date) (unknown) [facility] (no value) (units unknown) (unknown) Result panel 624 (unknown) (no date) (unknown) [facility] (no value) (units unknown) (unknown) Result panel 625 (unknown) (no date) (unknown) [facility] (no value) (units unknown) (unknown) Result panel 626 (unknown) (no date) (unknown) [facility] (no value) (units unknown) (unknown) Result panel 627 (unknown) (no date) (unknown) [facility] (no value) (units unknown) (unknown) Result panel 628 (unknown) (no date) (unknown) [facility] (no value) (units unknown) (unknown) Result panel 629 (unknown) (no date) (unknown) [facility] (no value) (units unknown) (unknown) Result panel 630 (unknown) (no date) (unknown) [facility] (no value) (units unknown) (unknown) Result panel 631 (unknown) (no date) (unknown) [facility] (no value) (units unknown) (unknown) Result panel 632 (unknown) (no date) (unknown) [facility] (no value) (units unknown) (unknown) Result panel 633 (unknown) (no date) (unknown) [facility] (no value) (units unknown) (unknown) Result panel 634 (unknown) (no date) (unknown) [facility] (no value) (units unknown) (unknown) Result panel 635 (unknown) (no date) (unknown) [facility] (no value) (units unknown) (unknown) Result panel 636 (unknown) (no date) (unknown) [facility] (no value) (units unknown) (unknown) Result panel 637 (unknown) (no date) (unknown) [facility] (no value) (units unknown) (unknown) Result panel 638 (unknown) (no date) (unknown) [facility] (no value) (units unknown) (unknown) Result panel 639 (unknown) (no date) (unknown) [facility] (no value) (units unknown) (unknown) Result panel 640 (unknown) (no date) (unknown) [facility] (no value) (units unknown) (unknown) Result panel 641 (unknown) (no date) (unknown) [facility] (no value) (units unknown) (unknown) Result panel 642 (unknown) (no date) (unknown) [facility] (no value) (units unknown) (unknown) Result panel 643 (unknown) (no date) (unknown) [facility] (no value) (units unknown) (unknown) Result panel 644 (unknown) (no date) (unknown) [facility] (no value) (units unknown) (unknown) Result panel 645 (unknown) (no date) (unknown) [facility] (no value) (units unknown) (unknown) Result panel 646 (unknown) (no date) (unknown) [facility] (no value) (units unknown) (unknown) Result panel 647 (unknown) (no date) (unknown) [facility] (no value) (units unknown) (unknown) Result panel 648 (unknown) (no date) (unknown) [facility] (no value) (units unknown) (unknown) Result panel 649 (unknown) (no date) (unknown) [facility] (no value) (units unknown) (unknown) Result panel 650 (unknown) (no date) (unknown) [facility] (no value) (units unknown) (unknown) Result panel 651 (unknown) (no date) (unknown) [facility] (no value) (units unknown) (unknown) Result panel 652 (unknown) (no date) (unknown) [facility] (no value) (units unknown) (unknown) Result panel 653 (unknown) (no date) (unknown) [facility] (no value) (units unknown) (unknown) Result panel 654 (unknown) (no date) (unknown) [facility] (no value) (units unknown) (unknown) Result panel 655 (unknown) (no date) (unknown) [facility] (no value) (units unknown) (unknown) Result panel 656 (unknown) (no date) (unknown) [facility] (no value) (units unknown) (unknown) Result panel 657 (unknown) (no date) (unknown) [facility] (no value) (units unknown) (unknown) Result panel 658 (unknown) (no date) (unknown) [facility] (no value) (units unknown) (unknown) Result panel 659 (unknown) (no date) (unknown) [facility] (no value) (units unknown) (unknown) Result panel 660 (unknown) (no date) (unknown) [facility] (no value) (units unknown) (unknown) Result panel 661 (unknown) (no date) (unknown) [facility] (no value) (units unknown) (unknown) Result panel 662 (unknown) (no date) (unknown) [facility] (no value) (units unknown) (unknown) Result panel 663 (unknown) (no date) (unknown) [facility] (no value) (units unknown) (unknown) Result panel 664 (unknown) (no date) (unknown) [facility] (no value) (units unknown) (unknown) Result panel 665 (unknown) (no date) (unknown) [facility] (no value) (units unknown) (unknown) Result panel 666 (unknown) (no date) (unknown) [facility] (no value) (units unknown) (unknown) Result panel 667 (unknown) (no date) (unknown) [facility] (no value) (units unknown) (unknown) Result panel 668 (unknown) (no date) (unknown) [facility] (no value) (units unknown) (unknown) Result panel 669 (unknown) (no date) (unknown) [facility] (no value) (units unknown) (unknown) Result panel 670 (unknown) (no date) (unknown) [facility] (no value) (units unknown) (unknown) Result panel 671 (unknown) (no date) (unknown) [facility] (no value) (units unknown) (unknown) Result panel 672 (unknown) (no date) (unknown) [facility] (no value) (units unknown) (unknown) Result panel 673 (unknown) (no date) (unknown) [facility] (no value) (units unknown) (unknown) Result panel 674 (unknown) (no date) (unknown) [facility] (no value) (units unknown) (unknown) Result panel 675 (unknown) (no date) (unknown) [facility] (no value) (units unknown) (unknown) Result panel 676 (unknown) (no date) (unknown) [facility] (no value) (units unknown) (unknown) Result panel 677 (unknown) (no date) (unknown) [facility] (no value) (units unknown) (unknown) Result panel 678 (unknown) (no date) (unknown) [facility] (no value) (units unknown) (unknown) Result panel 679 (unknown) (no date) (unknown) [facility] (no value) (units unknown) (unknown) Result panel 680 (unknown) (no date) (unknown) [facility] (no value) (units unknown) (unknown) Result panel 681 (unknown) (no date) (unknown) [facility] (no value) (units unknown) (unknown) Result panel 682 (unknown) (no date) (unknown) [facility] (no value) (units unknown) (unknown) Result panel 683 (unknown) (no date) (unknown) [facility] (no value) (units unknown) (unknown) Result panel 684 (unknown) (no date) (unknown) [facility] (no value) (units unknown) (unknown) Result panel 685 (unknown) (no date) (unknown) [facility] (no value) (units unknown) (unknown) Result panel 686 (unknown) (no date) (unknown) [facility] (no value) (units unknown) (unknown) Result panel 687 (unknown) (no date) (unknown) [facility] (no value) (units unknown) (unknown) Result panel 688 (unknown) (no date) (unknown) [facility] (no value) (units unknown) (unknown) Result panel 689 (unknown) (no date) (unknown) [facility] (no value) (units unknown) (unknown) Result panel 690 (unknown) (no date) (unknown) [facility] (no value) (units unknown) (unknown) Result panel 691 (unknown) (no date) (unknown) [facility] (no value) (units unknown) (unknown) Result panel 692 (unknown) (no date) (unknown) [facility] (no value) (units unknown) (unknown) Result panel 693 (unknown) (no date) (unknown) [facility] (no value) (units unknown) (unknown) Result panel 694 (unknown) (no date) (unknown) [facility] (no value) (units unknown) (unknown) Result panel 695 (unknown) (no date) (unknown) [facility] (no value) (units unknown) (unknown) Result panel 696 (unknown) (no date) (unknown) [facility] (no value) (units unknown) (unknown) Result panel 697 (unknown) (no date) (unknown) [facility] (no value) (units unknown) (unknown) Result panel 698 (unknown) (no date) (unknown) [facility] (no value) (units unknown) (unknown) Result panel 699 (unknown) (no date) (unknown) [facility] (no value) (units unknown) (unknown) Result panel 700 (unknown) (no date) (unknown) [facility] (no value) (units unknown) (unknown) Result panel 701 (unknown) (no date) (unknown) [facility] (no value) (units unknown) (unknown) Result panel 702 (unknown) (no date) (unknown) [facility] (no value) (units unknown) (unknown) Result panel 703 (unknown) (no date) (unknown) [facility] (no value) (units unknown) (unknown) Result panel 704 (unknown) (no date) (unknown) [facility] (no value) (units unknown) (unknown) Result panel 705 (unknown) (no date) (unknown) [facility] (no value) (units unknown) (unknown) Result panel 706 (unknown) (no date) (unknown) [facility] (no value) (units unknown) (unknown) Result panel 707 (unknown) (no date) (unknown) [facility] (no value) (units unknown) (unknown) Result panel 708 (unknown) (no date) (unknown) [facility] (no value) (units unknown) (unknown) Result panel 709 (unknown) (no date) (unknown) [facility] (no value) (units unknown) (unknown) Result panel 710 (unknown) (no date) (unknown) [facility] (no value) (units unknown) (unknown) Result panel 711 (unknown) (no date) (unknown) [facility] (no value) (units unknown) (unknown) Result panel 712 (unknown) (no date) (unknown) [facility] (no value) (units unknown) (unknown) Result panel 713 (unknown) (no date) (unknown) [facility] (no value) (units unknown) (unknown) Result panel 714 (unknown) (no date) (unknown) [facility] (no value) (units unknown) (unknown) Result panel 715 (unknown) (no date) (unknown) [facility] (no value) (units unknown) (unknown) Result panel 716 (unknown) (no date) (unknown) [facility] (no value) (units unknown) (unknown) Result panel 717 (unknown) (no date) (unknown) [facility] (no value) (units unknown) (unknown) Result panel 718 (unknown) (no date) (unknown) [facility] (no value) (units unknown) (unknown) Result panel 719 (unknown) (no date) (unknown) [facility] (no value) (units unknown) (unknown) Result panel 720 (unknown) (no date) (unknown) [facility] (no value) (units unknown) (unknown) Result panel 721 (unknown) (no date) (unknown) [facility] (no value) (units unknown) (unknown) Result panel 722 (unknown) (no date) (unknown) [facility] (no value) (units unknown) (unknown) Result panel 723 (unknown) (no date) (unknown) [facility] (no value) (units unknown) (unknown) Result panel 724 (unknown) (no date) (unknown) [facility] (no value) (units unknown) (unknown) Result panel 725 (unknown) (no date) (unknown) [facility] (no value) (units unknown) (unknown) Result panel 726 (unknown) (no date) (unknown) [facility] (no value) (units unknown) (unknown) Result panel 727 (unknown) (no date) (unknown) [facility] (no value) (units unknown) (unknown) Result panel 728 (unknown) (no date) (unknown) [facility] (no value) (units unknown) (unknown) Result panel 729 (unknown) (no date) (unknown) [facility] (no value) (units unknown) (unknown) Result panel 730 (unknown) (no date) (unknown) [facility] (no value) (units unknown) (unknown) Result panel 731 (unknown) (no date) (unknown) [facility] (no value) (units unknown) (unknown) Result panel 732 (unknown) (no date) (unknown) [facility] (no value) (units unknown) (unknown) Result panel 733 (unknown) (no date) (unknown) [facility] (no value) (units unknown) (unknown) Result panel 734 (unknown) (no date) (unknown) [facility] (no value) (units unknown) (unknown) Result panel 735 (unknown) (no date) (unknown) [facility] (no value) (units unknown) (unknown) Result panel 736 (unknown) (no date) (unknown) [facility] (no value) (units unknown) (unknown) Result panel 737 (unknown) (no date) (unknown) [facility] (no value) (units unknown) (unknown) Result panel 738 (unknown) (no date) (unknown) [facility] (no value) (units unknown) (unknown) Result panel 739 (unknown) (no date) (unknown) [facility] (no value) (units unknown) (unknown) Result panel 740 (unknown) (no date) (unknown) [facility] (no value) (units unknown) (unknown) Result panel 741 (unknown) (no date) (unknown) [facility] (no value) (units unknown) (unknown) Result panel 742 (unknown) (no date) (unknown) [facility] (no value) (units unknown) (unknown) Result panel 743 (unknown) (no date) (unknown) [facility] (no value) (units unknown) (unknown) Result panel 744 (unknown) (no date) (unknown) [facility] (no value) (units unknown) (unknown) Result panel 745 (unknown) (no date) (unknown) [facility] (no value) (units unknown) (unknown) Result panel 746 (unknown) (no date) (unknown) [facility] (no value) (units unknown) (unknown) Result panel 747 (unknown) (no date) (unknown) [facility] (no value) (units unknown) (unknown) Result panel 748 (unknown) (no date) (unknown) [facility] (no value) (units unknown) (unknown) Result panel 749 (unknown) (no date) (unknown) [facility] (no value) (units unknown) (unknown) Result panel 750 (unknown) (no date) (unknown) [facility] (no value) (units unknown) (unknown) Result panel 751 (unknown) (no date) (unknown) [facility] (no value) (units unknown) (unknown) Result panel 752 (unknown) (no date) (unknown) [facility] (no value) (units unknown) (unknown) Result panel 753 (unknown) (no date) (unknown) [facility] (no value) (units unknown) (unknown) Result panel 754 (unknown) (no date) (unknown) [facility] (no value) (units unknown) (unknown) Result panel 755 (unknown) (no date) (unknown) [facility] (no value) (units unknown) (unknown) Result panel 756 (unknown) (no date) (unknown) [facility] (no value) (units unknown) (unknown) Result panel 757 (unknown) (no date) (unknown) [facility] (no value) (units unknown) (unknown) Result panel 758 (unknown) (no date) (unknown) [facility] (no value) (units unknown) (unknown) Result panel 759 (unknown) (no date) (unknown) [facility] (no value) (units unknown) (unknown) Result panel 760 (unknown) (no date) (unknown) [facility] (no value) (units unknown) (unknown) Result panel 761 (unknown) (no date) (unknown) [facility] (no value) (units unknown) (unknown) Result panel 762 (unknown) (no date) (unknown) [facility] (no value) (units unknown) (unknown) Result panel 763 (unknown) (no date) (unknown) [facility] (no value) (units unknown) (unknown) Result panel 764 (unknown) (no date) (unknown) [facility] (no value) (units unknown) (unknown) Result panel 765 (unknown) (no date) (unknown) [facility] (no value) (units unknown) (unknown) Result panel 766 (unknown) (no date) (unknown) [facility] (no value) (units unknown) (unknown) Result panel 767 (unknown) (no date) (unknown) [facility] (no value) (units unknown) (unknown) Result panel 768 (unknown) (no date) (unknown) [facility] (no value) (units unknown) (unknown) Result panel 769 (unknown) (no date) (unknown) [facility] (no value) (units unknown) (unknown) Result panel 770 (unknown) (no date) (unknown) [facility] (no value) (units unknown) (unknown) Result panel 771 (unknown) (no date) (unknown) [facility] (no value) (units unknown) (unknown) Result panel 772 (unknown) (no date) (unknown) [facility] (no value) (units unknown) (unknown) Result panel 773 (unknown) (no date) (unknown) [facility] (no value) (units unknown) (unknown) Result panel 774 (unknown) (no date) (unknown) [facility] (no value) (units unknown) (unknown) Result panel 775 (unknown) (no date) (unknown) [facility] (no value) (units unknown) (unknown) Result panel 776 (unknown) (no date) (unknown) [facility] (no value) (units unknown) (unknown) Result panel 777 (unknown) (no date) (unknown) [facility] (no value) (units unknown) (unknown) Result panel 778 (unknown) (no date) (unknown) [facility] (no value) (units unknown) (unknown) Result panel 779 (unknown) (no date) (unknown) [facility] (no value) (units unknown) (unknown) Result panel 780 (unknown) (no date) (unknown) [facility] (no value) (units unknown) (unknown) Result panel 781 (unknown) (no date) (unknown) [facility] (no value) (units unknown) (unknown) Result panel 782 (unknown) (no date) (unknown) [facility] (no value) (units unknown) (unknown) Result panel 783 (unknown) (no date) (unknown) [facility] (no value) (units unknown) (unknown) Result panel 784 (unknown) (no date) (unknown) [facility] (no value) (units unknown) (unknown) Result panel 785 (unknown) (no date) (unknown) [facility] (no value) (units unknown) (unknown) Result panel 786 (unknown) (no date) (unknown) [facility] (no value) (units unknown) (unknown) Result panel 787 (unknown) (no date) (unknown) [facility] (no value) (units unknown) (unknown) Result panel 788 (unknown) (no date) (unknown) [facility] (no value) (units unknown) (unknown) Result panel 789 (unknown) (no date) (unknown) [facility] (no value) (units unknown) (unknown) Result panel 790 (unknown) (no date) (unknown) [facility] (no value) (units unknown) (unknown) Result panel 791 (unknown) (no date) (unknown) [facility] (no value) (units unknown) (unknown) Result panel 792 (unknown) (no date) (unknown) [facility] (no value) (units unknown) (unknown) Result panel 793 (unknown) (no date) (unknown) [facility] (no value) (units unknown) (unknown) Result panel 794 (unknown) (no date) (unknown) [facility] (no value) (units unknown) (unknown) Result panel 795 (unknown) (no date) (unknown) (unknown) (no value) (units unknown) (unknown) (unknown) (no date) (unknown) (unknown) 10/10/22 (units unknown) (unknown) (unknown) (no date) (unknown) (unknown) [address] [place] [address] (un its unknown) (unknown) (unknown) (no date) (unknown) (unknown) [id number] (units unknown) (unknown) (unknown) (no date) (unknown) (unknown) ABDOMEN 2 VIEW , 11/22/2014, 19:08. (units unknown) (unknown) (unknown) (no date) (unknown) (unknown) Accession Numb er: [id number] (units unknown) (unknown) (unknown) (no date) (unknown) (unknown) Age/Sex: 47 / F Date of Service: (units unknown) (unknown) (unknown) (no date) (unknown) (unknown) FABIOLA [place]asley [id number] (units unknown) (unknown) (unknown) (no date) (unknown) (unknown) Approved by: Lilia Estevez M.D. on 10/10/2022 at 18:33 (units unknown) (unknown) (unknown) (no date) (unknown) (unknown) COMPARISON: [facility], ABDOMEN 2 VIEW, 12/26/2016, 19:12. [facility] (units unknown) (unknown) (unknown) (no date) (unknown) (unknown) : 3 Acct:[id number] (units unknown) (unknown) (unknown) (no date) (unknown) (unknown) Dictated by: Lilia Estevez M.D. on 10/10/2022 at 18:31 (units unknown) (unknown) (unknown) (no date) (unknown) (unknown) FINDINGS: (units unknown) (unknown) (unknown) (no date) (unknown) (unknown) [facility], , (units unknown) (unknown) (unknown) (no date) (unknown) (unknown) IMPRESSION: Nonspecific bowel gas pattern. No definitively dilated loops of (units unknown) (unknown) (unknown) (no date) (unknown) (unknown) INDICATIONS: s evere abdominal pain, N/V (units unknown) (unknown) (unknown) (no date) (unknown) (unknown) [facility] (uni ts unknown) (unknown) (unknown) (no date) (unknown) (unknown) Loc: ED (units unknown) (unknown) (unknown) (no date) (unknown) (unknown) [facility] (units unknown) (unknown) (unknown) (no date) (unknown) (unknown) Ordering Provi lópez: Tremayne Jovel D.O. (units unknown) (unknown) (unknown) (no date) (unknown) (unknown) PROCEDURE: XR ABDOMEN 1V (units unknown) (unknown) (unknown) (no date) (unknown) (unknown) Patient: Huyen Castro MR#: [id number] (units unknown) (unknown) (unknown) (no date) (unknown) (unknown) Procedure: XR abdomen 1V (units unknown) (unknown) (unknown) (no date) (unknown) (unknown) Prominent but not definitively dilated gas-filled loops of small bowel present (units unknown) (unknown) (unknown) (no date) (unknown) (unknown) Signed (units unknown) (unknown) (unknown) (no date) (unknown) (unknown) TECHNIQUE: One view of the abdomen acquired. (units unknown) (unknown) (unknown) (no date) (unknown) (unknown) XRay Report (units unknown) (unknown) (unknown) (no date) (unknown) (unknown) at the (units unknown) (unknown) (unknown) (no date) (unknown) (unknown) bowel (units unknown) (unknown) (unknown) (no date) (unknown) (unknown) clips project over the right abdomen as before. IUD projects over the pelvis. (units unknown) (unknown) (unknown) (no date) (unknown) (unknown) identified. CT abdomen pelvis could be obtained if clinically indicated (units unknown) (unknown) (unknown) (no date) (unknown) (unknown) lower abdomen. Gas is visualized within the colon to the level of the rectum. (units unknown) (unknown) Result panel 796 (unknown) (no date) (unknown) (unknown) 0 /ul (unknown ) (unknown) (no date) (unknown) (unknown) 0 /ul (unknown ) (unknown) (no date) (unknown) (unknown) 0.1 % (unknown ) (unknown) (no date) (unknown) (unknown) 0.3 % (unknown ) (unknown) (no date) (unknown) (unknown) 13.4 % (unknown ) (unknown) (no date) (unknown) (unknown) 14.0 g/dl (unknown ) (unknown) (no date) (unknown) (unknown) 2.9 % (unknown ) (unknown) (no date) (unknown) (unknown) 293 x10 3/ul (unknow n) (unknown) (no date) (unknown) (unknown) 30.7 pg (unknown ) (unknown) (no date) (unknown) (unknown) 300 /ul (unknown ) (unknown) (no date) (unknown) (unknown) 33.5 % (unknown ) (unknown) (no date) (unknown) (unknown) 4.57 x10 6/ul (unknow n) (unknown) (no date) (unknown) (unknown) 41.9 % (unknown ) (unknown) (no date) (unknown) (unknown) 8.0 % (unknown ) (unknown) (no date) (unknown) (unknown) 800 /ul (unknown ) (unknown) (no date) (unknown) (unknown) 88.7 % (unknown ) (unknown) (no date) (unknown) (unknown) 8800 /ul (unknown ) (unknown) (no date) (unknown) (unknown) 9.9 x10 3/ul (unknow n) (unknown) (no date) (unknown) (unknown) 91.5 fl (unknown ) Result panel 797 (unknown) (no date) (unknown) (unknown) > 60 ml/min (unknown ) (unknown) (no date) (unknown) (unknown) > 60 ml/min (unknown ) (unknown) (no date) (unknown) (unknown) 0.82 mg/dl (unknown ) (unknown) (no date) (unknown) (unknown) 1.0 mg/dl (unknown ) (unknown) (no date) (unknown) (unknown) 1.2 (units unknown) (unknown) (unknown) (no date) (unknown) (unknown) 10.0 mg/dl (unknown ) (unknown) (no date) (unknown) (unknown) 101 mmol/l (unknown ) (unknown) (no date) (unknown) (unknown) 103 u/l (unknown ) (unknown) (no date) (unknown) (unknown) 143 mmol/l (unknown ) (unknown) (no date) (unknown) (unknown) 15 mg/dl (unknown ) (unknown) (no date) (unknown) (unknown) 172 mg/dl (unknown ) (unknown) (no date) (unknown) (unknown) 172 mg/dl (unknown ) (unknown) (no date) (unknown) (unknown) 18.3 (units unknown) (unknown) (unknown) (no date) (unknown) (unknown) 21 mmol/l (unknown ) (unknown) (no date) (unknown) (unknown) 3.4 mmol/l (unknown ) (unknown) (no date) (unknown) (unknown) 34 iu/l (unknown ) (unknown) (no date) (unknown) (unknown) 4.3 g/dl (unknown ) (unknown) (no date) (unknown) (unknown) 5.3 g/dl (unknown ) (unknown) (no date) (unknown) (unknown) 9.6 g/dl (unknown ) Result panel 798 (unknown) (no date) (unknown) (unknown) > 60 ml/min (unknown ) (unknown) (no date) (unknown) (unknown) > 60 ml/min (unknown ) (unknown) (no date) (unknown) (unknown) 0.82 mg/dl (unknown ) (unknown) (no date) (unknown) (unknown) 1.0 mg/dl (unknown ) (unknown) (no date) (unknown) (unknown) 1.2 (units unknown) (unknown) (unknown) (no date) (unknown) (unknown) 10.0 mg/dl (unknown ) (unknown) (no date) (unknown) (unknown) 101 mmol/l (unknown ) (unknown) (no date) (unknown) (unknown) 103 u/l (unknown ) (unknown) (no date) (unknown) (unknown) 143 mmol/l (unknown ) (unknown) (no date) (unknown) (unknown) 15 mg/dl (unknown ) (unknown) (no date) (unknown) (unknown) 172 mg/dl (unknown ) (unknown) (no date) (unknown) (unknown) 172 mg/dl (unknown ) (unknown) (no date) (unknown) (unknown) 18.3 (units unknown) (unknown) (unknown) (no date) (unknown) (unknown) 21 mmol/l (unknown ) (unknown) (no date) (unknown) (unknown) 3.4 mmol/l (unknown ) (unknown) (no date) (unknown) (unknown) 34 iu/l (unknown ) (unknown) (no date) (unknown) (unknown) 38 iu/l (unknown ) (unknown) (no date) (unknown) (unknown) 4.3 g/dl (unknown ) (unknown) (no date) (unknown) (unknown) 5.3 g/dl (unknown ) (unknown) (no date) (unknown) (unknown) 9.6 g/dl (unknown ) Result panel 799 (unknown) (no date) (unknown) (unknown) 5.4 mmol/l (unknown ) (unknown) (no date) (unknown) (unknown) 5.4 mmol/l (unknown ) Result panel 800 (unknown) (no date) (unknown) (unknown) (no value) (units unknown) (unknown) (unknown) (no date) (unknown) (unknown) 10/10/2210/1010/10/22 Range/Units (units unknown) (unknown) (unknown) (no date) (unknown) (unknown) 10/10/22 16:13 (unit s unknown) (unknown) (unknown) (no date) (unknown) (unknown) 10/10/22 16:14 (unit s unknown) (unknown) (unknown) (no date) (unknown) (unknown) 10/10/22 16:25 (unit s unknown) (unknown) (unknown) (no date) (unknown) (unknown) 10/10/22 (units unknown) (unknown) (unknown) (no date) (unknown) (unknown) 100 mg PO JEAN Y Qty: 90 0RF (units unknown) (unknown) (unknown) (no date) (unknown) (unknown) 12 point revie w of systems is negative except for those stated above (units unknown) (unknown) (unknown) (no date) (unknown) (unknown) 16:02 10/10/22 (unit s unknown) (unknown) (unknown) (no date) (unknown) (unknown) 16:25 16:25 16:25 (u nits unknown) (unknown) (unknown) (no date) (unknown) (unknown) 16:38 10/10/22 (unit s unknown) (unknown) (unknown) (no date) (unknown) (unknown) 17:00 (units unknown) (unknown) (unknown) (no date) (unknown) (unknown) 25 mg PO DAILY Qty: 90 0RF (units unknown) (unknown) (unknown) (no date) (unknown) (unknown) 25 mg ND PRN P RN (Reason: Nausea) (units unknown) (unknown) (unknown) (no date) (unknown) (unknown) [id number] (units unknown) (unknown) (unknown) (no date) (unknown) (unknown) 40 meq PO JEAN Y Qty: 90 0RF (units unknown) (unknown) (unknown) (no date) (unknown) (unknown) 47-year-old fe male with history of cyclic vomiting, abdominal migraines and (units unknown) (unknown) (unknown) (no date) (unknown) (unknown) ABLE TO (units unknown) (unknown) (unknown) (no date) (unknown) (unknown) ALT 38 H (<35) IU/L (units unknown) (unknown) (unknown) (no date) (unknown) (unknown) AST 34 (14-36) IU/L (units unknown) (unknown) (unknown) (no date) (unknown) (unknown) Abscess (units unknown) (unknown) (unknown) (no date) (unknown) (unknown) Age/Sex: 47 / F (uni ts unknown) (unknown) (unknown) (no date) (unknown) (unknown) Albumin 5.3 H (3.5-5.0) g/dL (units unknown) (unknown) (unknown) (no date) (unknown) (unknown) Albumin/Globul in Ratio 1.2 (1.0-2.8) (units unknown) (unknown) (unknown) (no date) (unknown) (unknown) Alcohol type: wine ( units unknown) (unknown) (unknown) (no date) (unknown) (unknown) Alkaline Phosphatase 103 (38-126) U/L (units unknown) (unknown) (unknown) (no date) (unknown) (unknown) Allergies (units unknown) (unknown) (unknown) (no date) (unknown) (unknown) Allergy/AdvRea c Type Severity Reaction Status Date / Time (units unknown) (unknown) (unknown) (no date) (unknown) (unknown) BACK: Nontende r without deformity or crepitance. No flank tenderness. (units unknown) (unknown) (unknown) (no date) (unknown) (unknown) BUN 15 (7-17) mg/dL (units unknown) (unknown) (unknown) (no date) (unknown) (unknown) BUN/Creatinine Ratio 18.3 (6-22) (units unknown) (unknown) (unknown) (no date) (unknown) (unknown) Baso # (Auto) 0 (0-100) /uL (units unknown) (unknown) (unknown) (no date) (unknown) (unknown) Baso % (Auto) 0.3 (0-2) % (units unknown) (unknown) (unknown) (no date) (unknown) (unknown) Blood Pressure 156/104 H 10/10/22 16:02 (units unknown) (unknown) (unknown) (no date) (unknown) (unknown) Blood Pressure 156/104 H (units unknown) (unknown) (unknown) (no date) (unknown) (unknown) CARDIOVASCULAR : Denies chest pain, palpitations, orthopnea, edema, (units unknown) (unknown) (unknown) (no date) (unknown) (unknown) CARDIOVASCULAR : Regular rate and rhythm without murmurs, gallops, or rubs. (units unknown) (unknown) (unknown) (no date) (unknown) (unknown) CC: 47-year-ol d female with history of abdominal pain, vomiting (units unknown) (unknown) (unknown) (no date) (unknown) (unknown) Calcium 10.0 (8.4-10.2) mg/dL (units unknown) (unknown) (unknown) (no date) (unknown) (unknown) Carbon Dioxide 21 L (22-32) mmol/L (units unknown) (unknown) (unknown) (no date) (unknown) (unknown) Chief complain t: Nausea/Vomiting/Trupti rrhea (units unknown) (unknown) (unknown) (no date) (unknown) (unknown) Chloride 101 (98-107) mmol/L (units unknown) (unknown) (unknown) (no date) (unknown) (unknown) Chronic abdomi nal pain (units unknown) (unknown) (unknown) (no date) (unknown) (unknown) Compazine 25 m g ND PRN PRN Nausea 07/06/22 07/06/22 (units unknown) (unknown) (unknown) (no date) (unknown) (unknown) Compazine suppository (units unknown) (unknown) (unknown) (no date) (unknown) (unknown) Complete Blood Count AUTO DIFF Stat (units unknown) (unknown) (unknown) (no date) (unknown) (unknown) Complicating co-morbidities: Abdominal migraines, intractable vomiting, cyclic (units unknown) (unknown) (unknown) (no date) (unknown) (unknown) Comprehensive Metabolic Panel Stat (units unknown) (unknown) (unknown) (no date) (unknown) (unknown) Consultations: (unit s unknown) (unknown) (unknown) (no date) (unknown) (unknown) Course (units unknown) (unknown) (unknown) (no date) (unknown) (unknown) Creatinine 0.8 2 (0.52-1.04) mg/dL (units unknown) (unknown) (unknown) (no date) (unknown) (unknown) Cyclic vomitin g syndrome (units unknown) (unknown) (unknown) (no date) (unknown) (unknown) : 3 Acct:[id number] (units unknown) (unknown) (unknown) (no date) (unknown) (unknown) Data collected from: Patient (units unknown) (unknown) (unknown) (no date) (unknown) (unknown) Date of Servic e: 10/10/22 (units unknown) (unknown) (unknown) (no date) (unknown) (unknown) Daughter Angio-edema (units unknown) (unknown) (unknown) (no date) (unknown) (unknown) Departure (units unknown) (unknown) (unknown) (no date) (unknown) (unknown) Differential considered, but not limited to: Cyclic vomiting, abdominal (units unknown) (unknown) (unknown) (no date) (unknown) (unknown) Discharge Plan (unit s unknown) (unknown) (unknown) (no date) (unknown) (unknown) Discontinued Medications (units unknown) (unknown) (unknown) (no date) (unknown) (unknown) Discussion: (units unknown) (unknown) (unknown) (no date) (unknown) (unknown) Disposition: s ee below, along with detailed discharge instructions that have (units unknown) (unknown) (unknown) (no date) (unknown) (unknown) Documented By: KB (u nits unknown) (unknown) (unknown) (no date) (unknown) (unknown) ED Orders (units unknown) (unknown) (unknown) (no date) (unknown) (unknown) ENT: Nose with out bleeding, purulent drainage. Throat without erythema, (units unknown) (unknown) (unknown) (no date) (unknown) (unknown) ER Physician: Tremayne Jovel D.O. (units unknown) (unknown) (unknown) (no date) (unknown) (unknown) EXTREMITIES: N o edema or joint tenderness. (units unknown) (unknown) (unknown) (no date) (unknown) (unknown) EYES: Pupils e qual round and reactive. Extraocular motions intact. No scleral (units unknown) (unknown) (unknown) (no date) (unknown) (unknown) Emergency Report (un its unknown) (unknown) (unknown) (no date) (unknown) (unknown) Eos # (Auto) 0 (0-450) /uL (units unknown) (unknown) (unknown) (no date) (unknown) (unknown) Eos % (Auto) 0 .1 L (2-4) % (units unknown) (unknown) (unknown) (no date) (unknown) (unknown) Estimated GFR > 60 (>60) mL/min (units unknown) (unknown) (unknown) (no date) (unknown) (unknown) Exam Narrative: (uni ts unknown) (unknown) (unknown) (no date) (unknown) (unknown) Exam documente d above, pertinent findings include: obviously in pain, holding an (units unknown) (unknown) (unknown) (no date) (unknown) (unknown) Exam (units unknown) (unknown) (unknown) (no date) (unknown) (unknown) Family History (units unknown) (unknown) (unknown) (no date) (unknown) (unknown) Family history of angioedema (units unknown) (unknown) (unknown) (no date) (unknown) (unknown) Father Hypertension (units unknown) (unknown) (unknown) (no date) (unknown) (unknown) GASTROINTESTIN AL: Abdomen soft,severe generalized tenderness, soft, bowel sounds (units unknown) (unknown) (unknown) (no date) (unknown) (unknown) GASTROINTESTIN AL: See HPI (units unknown) (unknown) (unknown) (no date) (unknown) (unknown) GENERAL: Denie s chills, fatigue, malaise, fever, sweats. (units unknown) (unknown) (unknown) (no date) (unknown) (unknown) GENERAL: [47] year old patient appears stated age. Well-developed patient, in (units unknown) (unknown) (unknown) (no date) (unknown) (unknown) : Denies dys uria, frequency, incontinence, hematuria, urinary retention. (units unknown) (unknown) (unknown) (no date) (unknown) (unknown) General (units unknown) (unknown) (unknown) (no date) (unknown) (unknown) Globulin 4.3 H (1.7-4.1) g/dL (units unknown) (unknown) (unknown) (no date) (unknown) (unknown) Glucose 172 H (70-100) mg/dL (units unknown) (unknown) (unknown) (no date) (unknown) (unknown) Glucose POC 173 (uni ts unknown) (unknown) (unknown) (no date) (unknown) (unknown) HEAD: Atraumat ic. Normocephalic. (units unknown) (unknown) (unknown) (no date) (unknown) (unknown) HEENT: Denies sinus pain, ear pain, sore throat, difficulty swallowing, (units unknown) (unknown) (unknown) (no date) (unknown) (unknown) HPI - Nausea/Vomiting/Trupti rrhea (units unknown) (unknown) (unknown) (no date) (unknown) (unknown) HPI Narrative: (unit s unknown) (unknown) (unknown) (no date) (unknown) (unknown) Haloperidol (Haloperidol 5 Mg/Ml Vial) 5 mg IV NOW ONE (units unknown) (unknown) (unknown) (no date) (unknown) (unknown) Hct 41.9 (36-46) % ( units unknown) (unknown) (unknown) (no date) (unknown) (unknown) Hgb 14.0 (12.0-16.0) g/dL (units unknown) (unknown) (unknown) (no date) (unknown) (unknown) History of Pre sent Illness (units unknown) (unknown) (unknown) (no date) (unknown) (unknown) Home Medications (un its unknown) (unknown) (unknown) (no date) (unknown) (unknown) Hx of appendectomy ( units unknown) (unknown) (unknown) (no date) (unknown) (unknown) Hx of cholecystectomy (units unknown) (unknown) (unknown) (no date) (unknown) (unknown) Imaging studie s independently reviewed: (units unknown) (unknown) (unknown) (no date) (unknown) (unknown) Independently reviewed EKG as above (units unknown) (unknown) (unknown) (no date) (unknown) (unknown) Initial Vital Signs (units unknown) (unknown) (unknown) (no date) (unknown) (unknown) Initial Vital Signs: (units unknown) (unknown) (unknown) (no date) (unknown) (unknown) [address] [address] (units unknown) (unknown) (unknown) (no date) (unknown) (unknown) Sergo Martino M D [Primary Care Provider] (units unknown) (unknown) (unknown) (no date) (unknown) (unknown) Lab Data (units unknown) (unknown) (unknown) (no date) (unknown) (unknown) Lab Results (units unknown) (unknown) (unknown) (no date) (unknown) (unknown) Lab Test resul ts independently reviewed as above. Pertinent findings: No (units unknown) (unknown) (unknown) (no date) (unknown) (unknown) Labs: (units unknown) (unknown) (unknown) (no date) (unknown) (unknown) Lactate (Lacti c Acid) Stat (units unknown) (unknown) (unknown) (no date) (unknown) (unknown) Lactate 5.4 H* (0.7-2.1) mmol/L (units unknown) (unknown) (unknown) (no date) (unknown) (unknown) Last Admin: 10/10/22 16:32 Dose: 1,000 mls/hr (units unknown) (unknown) (unknown) (no date) (unknown) (unknown) Last Admin: 10/10/22 16:32 Dose: 40 mg (units unknown) (unknown) (unknown) (no date) (unknown) (unknown) Last Admin: 10/10/22 16:32 Dose: 5 mg (units unknown) (unknown) (unknown) (no date) (unknown) (unknown) Lymph # (Auto) 800 L (4827-4899) /uL (units unknown) (unknown) (unknown) (no date) (unknown) (unknown) Lymph % (Auto) 8.0 L (25-40) % (units unknown) (unknown) (unknown) (no date) (unknown) (unknown) MCH 30.7 (26-34) PG (units unknown) (unknown) (unknown) (no date) (unknown) (unknown) MCHC 33.5 (30-36) % (units unknown) (unknown) (unknown) (no date) (unknown) (unknown) MCV 91.5 (80-1 00) fL (units unknown) (unknown) (unknown) (no date) (unknown) (unknown) MDM - Nausea/Vomiting/Trupti rrhea (units unknown) (unknown) (unknown) (no date) (unknown) (unknown) MDM Narrative (units unknown) (unknown) (unknown) (no date) (unknown) (unknown) MIPS Elements: (unit s unknown) (unknown) (unknown) (no date) (unknown) (unknown) 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 (units unknown) (unknown) (unknown) (no date) (unknown) (unknown) MUSCULOS[place] L: denies weakness, joint pain, or bony pain (units unknown) (unknown) (unknown) (no date) (unknown) (unknown) Marijuana use, continuous (units unknown) (unknown) (unknown) (no date) (unknown) (unknown) Medical Histor y (units unknown) (unknown) (unknown) (no date) (unknown) (unknown) Medical decisi on making narrative: (units unknown) (unknown) (unknown) (no date) (unknown) (unknown) Medical record s reviewed: Multiple prior visits here (units unknown) (unknown) (unknown) (no date) (unknown) (unknown) Medication Instructions Recorded Confirmed (units unknown) (unknown) (unknown) (no date) (unknown) (unknown) Medication Instructions Recorded (units unknown) (unknown) (unknown) (no date) (unknown) (unknown) Mode of arriva l: Ambulatory (units unknown) (unknown) (unknown) (no date) (unknown) (unknown) Larue # (Auto) 300 (0-900) /uL (units unknown) (unknown) (unknown) (no date) (unknown) (unknown) Larue % (Auto) 2.9 L (3-14) % (units unknown) (unknown) (unknown) (no date) (unknown) (unknown) Mother Diabete s mellitus (units unknown) (unknown) (unknown) (no date) (unknown) (unknown) NECK: Trachea midline. Non tender (units unknown) (unknown) (unknown) (no date) (unknown) (unknown) NEURO: AOx3. (units unknown) (unknown) (unknown) (no date) (unknown) (unknown) NEUROLOGIC: De nies weakness, headache, numbness, change in speech, confusion, (units unknown) (unknown) (unknown) (no date) (unknown) (unknown) Narrative (units unknown) (unknown) (unknown) (no date) (unknown) (unknown) Narrative: (units unknown) (unknown) (unknown) (no date) (unknown) (unknown) Neut # (Auto) 8800 H (3549-5470) /uL (units unknown) (unknown) (unknown) (no date) (unknown) (unknown) Neut % (Auto) 88.7 H (50-75) % (units unknown) (unknown) (unknown) (no date) (unknown) (unknown) No Action (units unknown) (unknown) (unknown) (no date) (unknown) (unknown) Ordered: (units unknown) (unknown) (unknown) (no date) (unknown) (unknown) Orders (units unknown) (unknown) (unknown) (no date) (unknown) (unknown) Other Colon cancer ( units unknown) (unknown) (unknown) (no date) (unknown) (unknown) Oxygen Deliver y Method 10/10/22 16:02 (units unknown) (unknown) (unknown) (no date) (unknown) (unknown) Oxygen Deliver y Method Room Air (units unknown) (unknown) (unknown) (no date) (unknown) (unknown) PSYCHIATRIC: N o concerning psychosocial issues. (units unknown) (unknown) (unknown) (no date) (unknown) (unknown) PT STATES (units unknown) (unknown) (unknown) (no date) (unknown) (unknown) Pancreatitis (units unknown) (unknown) (unknown) (no date) (unknown) (unknown) Pantoprazole S odium (Pantoprazole 40 Mg Vial) 40 mg IV NOW ONE (units unknown) (unknown) (unknown) (no date) (unknown) (unknown) Patient History (uni ts unknown) (unknown) (unknown) (no date) (unknown) (unknown) Patient: Huyen Castro MR#: [id number] (units unknown) (unknown) (unknown) (no date) (unknown) (unknown) Plt Count 293 (150-400) X103/uL (units unknown) (unknown) (unknown) (no date) (unknown) (unknown) Point of Care Testing (units unknown) (unknown) (unknown) (no date) (unknown) (unknown) Potassium 3.4 (3.4-5.1) mmol/L (units unknown) (unknown) (unknown) (no date) (unknown) (unknown) Prescriptions: (unit s unknown) (unknown) (unknown) (no date) (unknown) (unknown) Previous Rx's (units unknown) (unknown) (unknown) (no date) (unknown) (unknown) Pulse Oximetry 100 10/10/22 16:02 (units unknown) (unknown) (unknown) (no date) (unknown) (unknown) Pulse Oximetry 100 100 100 (units unknown) (unknown) (unknown) (no date) (unknown) (unknown) Pulse Rate 91 H 10/10/22 16:02 (units unknown) (unknown) (unknown) (no date) (unknown) (unknown) Pulse Rate 91 H 81 80 (units unknown) (unknown) (unknown) (no date) (unknown) (unknown) RBC 4.57 (4.0- 5.2) X106/uL (units unknown) (unknown) (unknown) (no date) (unknown) (unknown) RDW 13.4 (11.6-14.8) % (units unknown) (unknown) (unknown) (no date) (unknown) (unknown) RESPIRATORY: C lear to auscultation. Breath sounds equal bilaterally. No wheezes, (units unknown) (unknown) (unknown) (no date) (unknown) (unknown) RESPIRATORY: D enies dyspnea, cough, wheezing, hemoptysis, sputum. (units unknown) (unknown) (unknown) (no date) (unknown) (unknown) Re-evaluations: (uni ts unknown) (unknown) (unknown) (no date) (unknown) (unknown) Referrals: (units unknown) (unknown) (unknown) (no date) (unknown) (unknown) Related Data (units unknown) (unknown) (unknown) (no date) (unknown) (unknown) Respiratory Ra te 24 10/10/22 16:02 (units unknown) (unknown) (unknown) (no date) (unknown) (unknown) Respiratory Ra te 24 17 13 (units unknown) (unknown) (unknown) (no date) (unknown) (unknown) Review of Systems (u nits unknown) (unknown) (unknown) (no date) (unknown) (unknown) SKIN: Denies r tiara, skin lesions, or other (units unknown) (unknown) (unknown) (no date) (unknown) (unknown) SKIN: No rash or erythema of visible areas (units unknown) (unknown) (unknown) (no date) (unknown) (unknown) Scores Used: (units unknown) (unknown) (unknown) (no date) (unknown) (unknown) She is had no fever or chills. She complains of severe generalized crampy (units unknown) (unknown) (unknown) (no date) (unknown) (unknown) Signed By: (units unknown) (unknown) (unknown) (no date) (unknown) (unknown) Smoking Status : Current every day smoker (units unknown) (unknown) (unknown) (no date) (unknown) (unknown) Social History (units unknown) (unknown) (unknown) (no date) (unknown) (unknown) Sodium 143 (137-145) mmol/L (units unknown) (unknown) (unknown) (no date) (unknown) (unknown) Sodium Chlorid e (Normal Saline 0.9%) 1,000 mls @ 1,000 mls/hr IV BOLUS ONE (units unknown) (unknown) (unknown) (no date) (unknown) (unknown) Source: patient (uni ts unknown) (unknown) (unknown) (no date) (unknown) (unknown) Stated complai nt: vomiting (units unknown) (unknown) (unknown) (no date) (unknown) (unknown) Stool Culture Stat ( units unknown) (unknown) (unknown) (no date) (unknown) (unknown) Stop: 10/10/22 16:14 (units unknown) (unknown) (unknown) (no date) (unknown) (unknown) Stop: 10/10/22 17:12 (units unknown) (unknown) (unknown) (no date) (unknown) (unknown) Substance Use Type: former substance user, marijuana and methamphetamine (units unknown) (unknown) (unknown) (no date) (unknown) (unknown) Surgical Histo ry (units unknown) (unknown) (unknown) (no date) (unknown) (unknown) TAKE ND (units unknown) (unknown) (unknown) (no date) (unknown) (unknown) TO IV SITE (units unknown) (unknown) (unknown) (no date) (unknown) (unknown) Temperature 98 .7 F 10/10/22 16:02 (units unknown) (unknown) (unknown) (no date) (unknown) (unknown) Temperature 98.7 F ( units unknown) (unknown) (unknown) (no date) (unknown) (unknown) Time Seen by Provider: 10/10/22 16:13 (units unknown) (unknown) (unknown) (no date) (unknown) (unknown) Total Bilirubi n 1.0 (0.2-1.3) mg/dL (units unknown) (unknown) (unknown) (no date) (unknown) (unknown) Total Protein 9.6 H (6.3-8.2) g/dL (units unknown) (unknown) (unknown) (no date) (unknown) (unknown) Treatments: (units unknown) (unknown) (unknown) (no date) (unknown) (unknown) Vital Signs - 8 hr ( units unknown) (unknown) (unknown) (no date) (unknown) (unknown) Vital Signs (units unknown) (unknown) (unknown) (no date) (unknown) (unknown) Vital signs: (units unknown) (unknown) (unknown) (no date) (unknown) (unknown) WBC 9.9 (4.5-1 1.0) X103/uL (units unknown) (unknown) (unknown) (no date) (unknown) (unknown) XR abdomen min 2V Stat (units unknown) (unknown) (unknown) (no date) (unknown) (unknown) [Embedded Imag e Not Available] (units unknown) (unknown) (unknown) (no date) (unknown) (unknown) [METOCLOPRAMIDE] (un its unknown) (unknown) (unknown) (no date) (unknown) (unknown) abdominal pain that comes in waves without warning. She is had no runny nose, (units unknown) (unknown) (unknown) (no date) (unknown) (unknown) additional outpatient follow up (units unknown) (unknown) (unknown) (no date) (unknown) (unknown) alcohol intake frequency: 3 or more drinks per day (units unknown) (unknown) (unknown) (no date) (unknown) (unknown) alcohol intake : current (units unknown) (unknown) (unknown) (no date) (unknown) (unknown) any change in her bowel habits. (units unknown) (unknown) (unknown) (no date) (unknown) (unknown) been reviewed with patient as well as indications for ED re-evaluation and (units unknown) (unknown) (unknown) (no date) (unknown) (unknown) bupropion HCl 100 mg tablet sustained-release 12 hr (units unknown) (unknown) (unknown) (no date) (unknown) (unknown) bupropion HCl 100 mg tablet,12 hr 100 mg PO DAILY #90 ea 04/14/22 (units unknown) (unknown) (unknown) (no date) (unknown) (unknown) complaint of s evere abdominal pain and multiple episodes of nausea and vomiting (units unknown) (unknown) (unknown) (no date) (unknown) (unknown) dizziness. (units unknown) (unknown) (unknown) (no date) (unknown) (unknown) emesis bag, pa cing, heart rate regular, lungs clear, abdomen tender but soft (units unknown) (unknown) (unknown) (no date) (unknown) (unknown) household memb ers: spouse (units unknown) (unknown) (unknown) (no date) (unknown) (unknown) icterus. No injection or drainage. (units unknown) (unknown) (unknown) (no date) (unknown) (unknown) latex [LATEX] Allergy Unknown Verified 04/13/22 09:42 (units unknown) (unknown) (unknown) (no date) (unknown) (unknown) metoclopramide AdvReac Unknown DYSTONIA Verified 04/13/22 09:42 (units unknown) (unknown) (unknown) (no date) (unknown) (unknown) migraine, nilam l obstruction, electrolyte abnormality versus other (units unknown) (unknown) (unknown) (no date) (unknown) (unknown) obvious distre ss. Pacing (units unknown) (unknown) (unknown) (no date) (unknown) (unknown) over the cours e of the day. She denies any change in her medications or diet. (units unknown) (unknown) (unknown) (no date) (unknown) (unknown) potassium chlo ride 20 mEq 40 meq PO DAILY #90 tabs 04/14/22 (units unknown) (unknown) (unknown) (no date) (unknown) (unknown) potassium chlo ride 20 mEq tablet extended release (units unknown) (unknown) (unknown) (no date) (unknown) (unknown) present, nondistended. (units unknown) (unknown) (unknown) (no date) (unknown) (unknown) prior electrol yte abnormalities presents with her significant other and a chief (units unknown) (unknown) (unknown) (no date) (unknown) (unknown) promethazine [PROMETHAZINE] Allergy Mild ERYTHEMA Verified 04/13/22 09:42 (units unknown) (unknown) (unknown) (no date) (unknown) (unknown) rales, or rhonchi. ( units unknown) (unknown) (unknown) (no date) (unknown) (unknown) seizures, incoordination. (units unknown) (unknown) (unknown) (no date) (unknown) (unknown) significant leukocytosis though there is a small relative left shift (units unknown) (unknown) (unknown) (no date) (unknown) (unknown) sore throat or cough. She denies chest pain or shortness of breath. She denies (units unknown) (unknown) (unknown) (no date) (unknown) (unknown) spironolactone 25 mg tablet 25 mg PO DAILY #90 tabs 04/14/22 (units unknown) (unknown) (unknown) (no date) (unknown) (unknown) spironolactone 25 mg tablet (units unknown) (unknown) (unknown) (no date) (unknown) (unknown) sustained-release (u nits unknown) (unknown) (unknown) (no date) (unknown) (unknown) tablet,extende d release (units unknown) (unknown) (unknown) (no date) (unknown) (unknown) tobacco type: vaping (units unknown) (unknown) (unknown) (no date) (unknown) (unknown) tonsillar hypertrophy or exudate. Airway patent. (units unknown) (unknown) (unknown) (no date) (unknown) (unknown) vomiting (units unknown) (unknown) Result panel 801 (unknown) (no date) (unknown) (unknown) (no value) (units unknown) (unknown) (unknown) (no date) (unknown) (unknown) 10/10/2210/1010/10/22 Range/Units (units unknown) (unknown) (unknown) (no date) (unknown) (unknown) 10/10/22 16:13 (unit s unknown) (unknown) (unknown) (no date) (unknown) (unknown) 10/10/22 16:14 (unit s unknown) (unknown) (unknown) (no date) (unknown) (unknown) 10/10/22 16:25 (unit s unknown) (unknown) (unknown) (no date) (unknown) (unknown) 10/10/22 (units unknown) (unknown) (unknown) (no date) (unknown) (unknown) 100 mg PO JEAN Y Qty: 90 0RF (units unknown) (unknown) (unknown) (no date) (unknown) (unknown) 12 point revie w of systems is negative except for those stated above (units unknown) (unknown) (unknown) (no date) (unknown) (unknown) 16:02 10/10/22 (unit s unknown) (unknown) (unknown) (no date) (unknown) (unknown) 16:25 16:25 16:25 (u nits unknown) (unknown) (unknown) (no date) (unknown) (unknown) 16:38 10/10/22 (unit s unknown) (unknown) (unknown) (no date) (unknown) (unknown) 17:00 (units unknown) (unknown) (unknown) (no date) (unknown) (unknown) 17:30 10/10/22 (unit s unknown) (unknown) (unknown) (no date) (unknown) (unknown) 17:58 10/10/22 (unit s unknown) (unknown) (unknown) (no date) (unknown) (unknown) 17:58 (units unknown) (unknown) (unknown) (no date) (unknown) (unknown) 18:00 10/10/22 (unit s unknown) (unknown) (unknown) (no date) (unknown) (unknown) 18:00 (units unknown) (unknown) (unknown) (no date) (unknown) (unknown) 25 mg PO DAILY Qty: 90 0RF (units unknown) (unknown) (unknown) (no date) (unknown) (unknown) 25 mg ND PRN P RN (Reason: Nausea) (units unknown) (unknown) (unknown) (no date) (unknown) (unknown) [id number] (units unknown) (unknown) (unknown) (no date) (unknown) (unknown) 40 meq PO JEAN Y Qty: 90 0RF (units unknown) (unknown) (unknown) (no date) (unknown) (unknown) 47-year-old fe male with history of cyclic vomiting, abdominal migraines and (units unknown) (unknown) (unknown) (no date) (unknown) (unknown) ABLE TO (units unknown) (unknown) (unknown) (no date) (unknown) (unknown) ALT 38 H (<35) IU/L (units unknown) (unknown) (unknown) (no date) (unknown) (unknown) AST 34 (14-36) IU/L (units unknown) (unknown) (unknown) (no date) (unknown) (unknown) Abscess (units unknown) (unknown) (unknown) (no date) (unknown) (unknown) Admin: 3 16:32 Dose: 1,000 mls/hr (units unknown) (unknown) (unknown) (no date) (unknown) (unknown) Age/Sex: 47 / F (uni ts unknown) (unknown) (unknown) (no date) (unknown) (unknown) Albumin 5.3 H (3.5-5.0) g/dL (units unknown) (unknown) (unknown) (no date) (unknown) (unknown) Albumin/Globul in Ratio 1.2 (1.0-2.8) (units unknown) (unknown) (unknown) (no date) (unknown) (unknown) Alcohol type: wine ( units unknown) (unknown) (unknown) (no date) (unknown) (unknown) Alkaline Phosphatase 103 (38-126) U/L (units unknown) (unknown) (unknown) (no date) (unknown) (unknown) Allergies (units unknown) (unknown) (unknown) (no date) (unknown) (unknown) Allergy/AdvRea c Type Severity Reaction Status Date / Time (units unknown) (unknown) (unknown) (no date) (unknown) (unknown) BACK: Nontende r without deformity or crepitance. No flank tenderness. (units unknown) (unknown) (unknown) (no date) (unknown) (unknown) BUN 15 (7-17) mg/dL (units unknown) (unknown) (unknown) (no date) (unknown) (unknown) BUN/Creatinine Ratio 18.3 (6-22) (units unknown) (unknown) (unknown) (no date) (unknown) (unknown) Baso # (Auto) 0 (0-100) /uL (units unknown) (unknown) (unknown) (no date) (unknown) (unknown) Baso % (Auto) 0.3 (0-2) % (units unknown) (unknown) (unknown) (no date) (unknown) (unknown) Blood Pressure 109/71 (units unknown) (unknown) (unknown) (no date) (unknown) (unknown) Blood Pressure 118/64 110/62 (units unknown) (unknown) (unknown) (no date) (unknown) (unknown) Blood Pressure 156/104 H 10/10/22 16:02 (units unknown) (unknown) (unknown) (no date) (unknown) (unknown) Blood Pressure 156/104 H (units unknown) (unknown) (unknown) (no date) (unknown) (unknown) CARDIOVASCULAR : Denies chest pain, palpitations, orthopnea, edema, (units unknown) (unknown) (unknown) (no date) (unknown) (unknown) CARDIOVASCULAR : Regular rate and rhythm without murmurs, gallops, or rubs. (units unknown) (unknown) (unknown) (no date) (unknown) (unknown) CC: 47-year-ol d female with history of abdominal pain, vomiting (units unknown) (unknown) (unknown) (no date) (unknown) (unknown) Calcium 10.0 (8.4-10.2) mg/dL (units unknown) (unknown) (unknown) (no date) (unknown) (unknown) Carbon Dioxide 21 L (22-32) mmol/L (units unknown) (unknown) (unknown) (no date) (unknown) (unknown) Chief complain t: Nausea/Vomiting/Trupti rrhea (units unknown) (unknown) (unknown) (no date) (unknown) (unknown) Chloride 101 (98-107) mmol/L (units unknown) (unknown) (unknown) (no date) (unknown) (unknown) Chronic abdomi nal pain (units unknown) (unknown) (unknown) (no date) (unknown) (unknown) Compazine 25 m g ND PRN PRN Nausea 07/06/22 07/06/22 (units unknown) (unknown) (unknown) (no date) (unknown) (unknown) Compazine suppository (units unknown) (unknown) (unknown) (no date) (unknown) (unknown) Complete Blood Count AUTO DIFF Stat (units unknown) (unknown) (unknown) (no date) (unknown) (unknown) Complicating co-morbidities: Abdominal migraines, intractable vomiting, cyclic (units unknown) (unknown) (unknown) (no date) (unknown) (unknown) Comprehensive Metabolic Panel Stat (units unknown) (unknown) (unknown) (no date) (unknown) (unknown) Consultations: (unit s unknown) (unknown) (unknown) (no date) (unknown) (unknown) Course (units unknown) (unknown) (unknown) (no date) (unknown) (unknown) Creatinine 0.8 2 (0.52-1.04) mg/dL (units unknown) (unknown) (unknown) (no date) (unknown) (unknown) Cyclic vomitin g syndrome (units unknown) (unknown) (unknown) (no date) (unknown) (unknown) : 3 Acct:[id number] (units unknown) (unknown) (unknown) (no date) (unknown) (unknown) Data collected from: Patient (units unknown) (unknown) (unknown) (no date) (unknown) (unknown) Date of Servic e: 10/10/22 (units unknown) (unknown) (unknown) (no date) (unknown) (unknown) Daughter Angio-edema (units unknown) (unknown) (unknown) (no date) (unknown) (unknown) Departure (units unknown) (unknown) (unknown) (no date) (unknown) (unknown) Differential considered, but not limited to: Cyclic vomiting, abdominal (units unknown) (unknown) (unknown) (no date) (unknown) (unknown) Discharge Plan (unit s unknown) (unknown) (unknown) (no date) (unknown) (unknown) Discontinued Medications (units unknown) (unknown) (unknown) (no date) (unknown) (unknown) Discussion: (units unknown) (unknown) (unknown) (no date) (unknown) (unknown) Disposition: s ee below, along with detailed discharge instructions that have (units unknown) (unknown) (unknown) (no date) (unknown) (unknown) Documented By: AQUILINO (u nits unknown) (unknown) (unknown) (no date) (unknown) (unknown) Documented By: AQUILINO(2) (units unknown) (unknown) (unknown) (no date) (unknown) (unknown) ED Orders (units unknown) (unknown) (unknown) (no date) (unknown) (unknown) ENT: Nose with out bleeding, purulent drainage. Throat without erythema, (units unknown) (unknown) (unknown) (no date) (unknown) (unknown) ER Physician: Tremayne Jovel D.O. (units unknown) (unknown) (unknown) (no date) (unknown) (unknown) EXTREMITIES: N o edema or joint tenderness. (units unknown) (unknown) (unknown) (no date) (unknown) (unknown) EYES: Pupils e qual round and reactive. Extraocular motions intact. No scleral (units unknown) (unknown) (unknown) (no date) (unknown) (unknown) Emergency Report (un its unknown) (unknown) (unknown) (no date) (unknown) (unknown) Eos # (Auto) 0 (0-450) /uL (units unknown) (unknown) (unknown) (no date) (unknown) (unknown) Eos % (Auto) 0 .1 L (2-4) % (units unknown) (unknown) (unknown) (no date) (unknown) (unknown) Estimated GFR > 60 (>60) mL/min (units unknown) (unknown) (unknown) (no date) (unknown) (unknown) Exam Narrative: (uni ts unknown) (unknown) (unknown) (no date) (unknown) (unknown) Exam documente d above, pertinent findings include: obviously in pain, holding an (units unknown) (unknown) (unknown) (no date) (unknown) (unknown) Exam (units unknown) (unknown) (unknown) (no date) (unknown) (unknown) Family History (units unknown) (unknown) (unknown) (no date) (unknown) (unknown) Family history of angioedema (units unknown) (unknown) (unknown) (no date) (unknown) (unknown) Father Hypertension (units unknown) (unknown) (unknown) (no date) (unknown) (unknown) GASTROINTESTIN AL: Abdomen soft,severe generalized tenderness, soft, bowel sounds (units unknown) (unknown) (unknown) (no date) (unknown) (unknown) GASTROINTESTIN AL: See HPI (units unknown) (unknown) (unknown) (no date) (unknown) (unknown) GENERAL: Denie s chills, fatigue, malaise, fever, sweats. (units unknown) (unknown) (unknown) (no date) (unknown) (unknown) GENERAL: [47] year old patient appears stated age. Well-developed patient, in (units unknown) (unknown) (unknown) (no date) (unknown) (unknown) : Denies dys uria, frequency, incontinence, hematuria, urinary retention. (units unknown) (unknown) (unknown) (no date) (unknown) (unknown) General (units unknown) (unknown) (unknown) (no date) (unknown) (unknown) Globulin 4.3 H (1.7-4.1) g/dL (units unknown) (unknown) (unknown) (no date) (unknown) (unknown) Glucose 172 H (70-100) mg/dL (units unknown) (unknown) (unknown) (no date) (unknown) (unknown) Glucose POC 173 (uni ts unknown) (unknown) (unknown) (no date) (unknown) (unknown) HEAD: Atraumat ic. Normocephalic. (units unknown) (unknown) (unknown) (no date) (unknown) (unknown) HEENT: Denies sinus pain, ear pain, sore throat, difficulty swallowing, (units unknown) (unknown) (unknown) (no date) (unknown) (unknown) HPI - Nausea/Vomiting/Trupti rrhea (units unknown) (unknown) (unknown) (no date) (unknown) (unknown) HPI Narrative: (unit s unknown) (unknown) (unknown) (no date) (unknown) (unknown) Haloperidol (Haloperidol 5 Mg/Ml Vial) 5 mg IV NOW ONE (units unknown) (unknown) (unknown) (no date) (unknown) (unknown) Hct 41.9 (36-46) % ( units unknown) (unknown) (unknown) (no date) (unknown) (unknown) Hgb 14.0 (12.0-16.0) g/dL (units unknown) (unknown) (unknown) (no date) (unknown) (unknown) History of Pre sent Illness (units unknown) (unknown) (unknown) (no date) (unknown) (unknown) Home Medications (un its unknown) (unknown) (unknown) (no date) (unknown) (unknown) Hx of appendectomy ( units unknown) (unknown) (unknown) (no date) (unknown) (unknown) Hx of cholecystectomy (units unknown) (unknown) (unknown) (no date) (unknown) (unknown) Imaging studie s independently reviewed: (units unknown) (unknown) (unknown) (no date) (unknown) (unknown) Independently reviewed EKG as above (units unknown) (unknown) (unknown) (no date) (unknown) (unknown) Initial Vital Signs (units unknown) (unknown) (unknown) (no date) (unknown) (unknown) Initial Vital Signs: (units unknown) (unknown) (unknown) (no date) (unknown) (unknown) [address] [address] (units unknown) (unknown) (unknown) (no date) (unknown) (unknown) Sergo Martino M D [Primary Care Provider] (units unknown) (unknown) (unknown) (no date) (unknown) (unknown) Lab Data (units unknown) (unknown) (unknown) (no date) (unknown) (unknown) Lab Results (units unknown) (unknown) (unknown) (no date) (unknown) (unknown) Lab Test resul ts independently reviewed as above. Pertinent findings: No (units unknown) (unknown) (unknown) (no date) (unknown) (unknown) Labs: (units unknown) (unknown) (unknown) (no date) (unknown) (unknown) Lactate (Lacti c Acid) Stat (units unknown) (unknown) (unknown) (no date) (unknown) (unknown) Lactate 5.4 H* (0.7-2.1) mmol/L (units unknown) (unknown) (unknown) (no date) (unknown) (unknown) Last Admin: 10/10/22 16:32 Dose: 40 mg (units unknown) (unknown) (unknown) (no date) (unknown) (unknown) Last Admin: 10/10/22 16:32 Dose: 5 mg (units unknown) (unknown) (unknown) (no date) (unknown) (unknown) Last Admin: 10/10/22 17:38 Dose: 1 mg (units unknown) (unknown) (unknown) (no date) (unknown) (unknown) Last Infusion: 10/10/22 17:39 Dose: 0 mls/hr (units unknown) (unknown) (unknown) (no date) (unknown) (unknown) Lorazepam (Lorazepam 2 Mg/Ml Inj) 1 mg IV NOW ONE (units unknown) (unknown) (unknown) (no date) (unknown) (unknown) Lymph # (Auto) 800 L (8855-7722) /uL (units unknown) (unknown) (unknown) (no date) (unknown) (unknown) Lymph % (Auto) 8.0 L (25-40) % (units unknown) (unknown) (unknown) (no date) (unknown) (unknown) MCH 30.7 (26-34) PG (units unknown) (unknown) (unknown) (no date) (unknown) (unknown) MCHC 33.5 (30-36) % (units unknown) (unknown) (unknown) (no date) (unknown) (unknown) MCV 91.5 (80-1 00) fL (units unknown) (unknown) (unknown) (no date) (unknown) (unknown) MDM - Nausea/Vomiting/Trupti rrhea (units unknown) (unknown) (unknown) (no date) (unknown) (unknown) MDM Narrative (units unknown) (unknown) (unknown) (no date) (unknown) (unknown) MIPS Elements: (unit s unknown) (unknown) (unknown) (no date) (unknown) (unknown) 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 (units unknown) (unknown) (unknown) (no date) (unknown) (unknown) MUSCULOS[place] L: denies weakness, joint pain, or bony pain (units unknown) (unknown) (unknown) (no date) (unknown) (unknown) Marijuana use, continuous (units unknown) (unknown) (unknown) (no date) (unknown) (unknown) Medical Histor y (units unknown) (unknown) (unknown) (no date) (unknown) (unknown) Medical decisi on making narrative: (units unknown) (unknown) (unknown) (no date) (unknown) (unknown) Medical record s reviewed: Multiple prior visits here (units unknown) (unknown) (unknown) (no date) (unknown) (unknown) Medication Instructions Recorded Confirmed (units unknown) (unknown) (unknown) (no date) (unknown) (unknown) Medication Instructions Recorded (units unknown) (unknown) (unknown) (no date) (unknown) (unknown) Mode of arriva l: Ambulatory (units unknown) (unknown) (unknown) (no date) (unknown) (unknown) Larue # (Auto) 300 (0-900) /uL (units unknown) (unknown) (unknown) (no date) (unknown) (unknown) Larue % (Auto) 2.9 L (3-14) % (units unknown) (unknown) (unknown) (no date) (unknown) (unknown) Mother Diabete s mellitus (units unknown) (unknown) (unknown) (no date) (unknown) (unknown) NECK: Trachea midline. Non tender (units unknown) (unknown) (unknown) (no date) (unknown) (unknown) NEURO: AOx3. (units unknown) (unknown) (unknown) (no date) (unknown) (unknown) NEUROLOGIC: De nies weakness, headache, numbness, change in speech, confusion, (units unknown) (unknown) (unknown) (no date) (unknown) (unknown) Narrative (units unknown) (unknown) (unknown) (no date) (unknown) (unknown) Narrative: (units unknown) (unknown) (unknown) (no date) (unknown) (unknown) Neut # (Auto) 8800 H (0910-4428) /uL (units unknown) (unknown) (unknown) (no date) (unknown) (unknown) Neut % (Auto) 88.7 H (50-75) % (units unknown) (unknown) (unknown) (no date) (unknown) (unknown) No Action (units unknown) (unknown) (unknown) (no date) (unknown) (unknown) Ordered: (units unknown) (unknown) (unknown) (no date) (unknown) (unknown) Orders (units unknown) (unknown) (unknown) (no date) (unknown) (unknown) Other Colon cancer ( units unknown) (unknown) (unknown) (no date) (unknown) (unknown) Oxygen Deliver y Method 10/10/22 16:02 (units unknown) (unknown) (unknown) (no date) (unknown) (unknown) Oxygen Deliver y Method Room Air (units unknown) (unknown) (unknown) (no date) (unknown) (unknown) Oxygen Deliver y Method (units unknown) (unknown) (unknown) (no date) (unknown) (unknown) PSYCHIATRIC: N o concerning psychosocial issues. (units unknown) (unknown) (unknown) (no date) (unknown) (unknown) PT STATES (units unknown) (unknown) (unknown) (no date) (unknown) (unknown) Pancreatitis (units unknown) (unknown) (unknown) (no date) (unknown) (unknown) Pantoprazole S odium (Pantoprazole 40 Mg Vial) 40 mg IV NOW ONE (units unknown) (unknown) (unknown) (no date) (unknown) (unknown) Patient History (uni ts unknown) (unknown) (unknown) (no date) (unknown) (unknown) Patient feelin g significant improvement, resting comfortably (units unknown) (unknown) (unknown) (no date) (unknown) (unknown) Patient with moderate improvement after Haldol, requesting Ativan (units unknown) (unknown) (unknown) (no date) (unknown) (unknown) Patient: Huyen Castro MR#: [id number] (units unknown) (unknown) (unknown) (no date) (unknown) (unknown) Plt Count 293 (150-400) X103/uL (units unknown) (unknown) (unknown) (no date) (unknown) (unknown) Point of Care Testing (units unknown) (unknown) (unknown) (no date) (unknown) (unknown) Potassium 3.4 (3.4-5.1) mmol/L (units unknown) (unknown) (unknown) (no date) (unknown) (unknown) Prescriptions: (unit s unknown) (unknown) (unknown) (no date) (unknown) (unknown) Previous Rx's (units unknown) (unknown) (unknown) (no date) (unknown) (unknown) Pulse Oximetry 100 10/10/22 16:02 (units unknown) (unknown) (unknown) (no date) (unknown) (unknown) Pulse Oximetry 100 100 100 (units unknown) (unknown) (unknown) (no date) (unknown) (unknown) Pulse Oximetry 93 96 (units unknown) (unknown) (unknown) (no date) (unknown) (unknown) Pulse Oximetry 96 95 (units unknown) (unknown) (unknown) (no date) (unknown) (unknown) Pulse Rate 86 (units unknown) (unknown) (unknown) (no date) (unknown) (unknown) Pulse Rate 91 H 10/10/22 16:02 (units unknown) (unknown) (unknown) (no date) (unknown) (unknown) Pulse Rate 91 H 79 ( units unknown) (unknown) (unknown) (no date) (unknown) (unknown) Pulse Rate 91 H 81 80 (units unknown) (unknown) (unknown) (no date) (unknown) (unknown) RBC 4.57 (4.0- 5.2) X106/uL (units unknown) (unknown) (unknown) (no date) (unknown) (unknown) RDW 13.4 (11.6-14.8) % (units unknown) (unknown) (unknown) (no date) (unknown) (unknown) RESPIRATORY: C lear to auscultation. Breath sounds equal bilaterally. No wheezes, (units unknown) (unknown) (unknown) (no date) (unknown) (unknown) RESPIRATORY: D enies dyspnea, cough, wheezing, hemoptysis, sputum. (units unknown) (unknown) (unknown) (no date) (unknown) (unknown) Re-evaluations: (uni ts unknown) (unknown) (unknown) (no date) (unknown) (unknown) Reevaluation #1: (un its unknown) (unknown) (unknown) (no date) (unknown) (unknown) Reevaluation #2: (un its unknown) (unknown) (unknown) (no date) (unknown) (unknown) Reevaluation(s) (uni ts unknown) (unknown) (unknown) (no date) (unknown) (unknown) Referrals: (units unknown) (unknown) (unknown) (no date) (unknown) (unknown) Related Data (units unknown) (unknown) (unknown) (no date) (unknown) (unknown) Respiratory Rate 18 (units unknown) (unknown) (unknown) (no date) (unknown) (unknown) Respiratory Ra te 24 10/10/22 16:02 (units unknown) (unknown) (unknown) (no date) (unknown) (unknown) Respiratory Ra te 24 17 13 (units unknown) (unknown) (unknown) (no date) (unknown) (unknown) Respiratory Rate 24 (units unknown) (unknown) (unknown) (no date) (unknown) (unknown) Review of Systems (u nits unknown) (unknown) (unknown) (no date) (unknown) (unknown) SKIN: Denies r tiara, skin lesions, or other (units unknown) (unknown) (unknown) (no date) (unknown) (unknown) SKIN: No rash or erythema of visible areas (units unknown) (unknown) (unknown) (no date) (unknown) (unknown) Scores Used: (units unknown) (unknown) (unknown) (no date) (unknown) (unknown) She is had no fever or chills. She complains of severe generalized crampy (units unknown) (unknown) (unknown) (no date) (unknown) (unknown) Signed By: (units unknown) (unknown) (unknown) (no date) (unknown) (unknown) Smoking Status : Current every day smoker (units unknown) (unknown) (unknown) (no date) (unknown) (unknown) Social History (units unknown) (unknown) (unknown) (no date) (unknown) (unknown) Sodium 143 (137-145) mmol/L (units unknown) (unknown) (unknown) (no date) (unknown) (unknown) Sodium Chlorid e (Normal Saline 0.9%) 1,000 mls @ 1,000 mls/hr IV BOLUS ONE (units unknown) (unknown) (unknown) (no date) (unknown) (unknown) Source: patient (uni ts unknown) (unknown) (unknown) (no date) (unknown) (unknown) Stated complai nt: vomiting (units unknown) (unknown) (unknown) (no date) (unknown) (unknown) Stool Culture Stat ( units unknown) (unknown) (unknown) (no date) (unknown) (unknown) Stop: 10/10/22 16:14 (units unknown) (unknown) (unknown) (no date) (unknown) (unknown) Stop: 10/10/22 17:12 (units unknown) (unknown) (unknown) (no date) (unknown) (unknown) Stop: 10/10/22 17:34 (units unknown) (unknown) (unknown) (no date) (unknown) (unknown) Stop: 10/10/22 19:51 (units unknown) (unknown) (unknown) (no date) (unknown) (unknown) Substance Use Type: former substance user, marijuana and methamphetamine (units unknown) (unknown) (unknown) (no date) (unknown) (unknown) Surgical Histo ry (units unknown) (unknown) (unknown) (no date) (unknown) (unknown) TAKE ND (units unknown) (unknown) (unknown) (no date) (unknown) (unknown) TO IV SITE (units unknown) (unknown) (unknown) (no date) (unknown) (unknown) Temperature 98 .7 F 10/10/22 16:02 (units unknown) (unknown) (unknown) (no date) (unknown) (unknown) Temperature 98.7 F ( units unknown) (unknown) (unknown) (no date) (unknown) (unknown) Temperature (units unknown) (unknown) (unknown) (no date) (unknown) (unknown) Time Seen by Provider: 10/10/22 16:13 (units unknown) (unknown) (unknown) (no date) (unknown) (unknown) Total Bilirubi n 1.0 (0.2-1.3) mg/dL (units unknown) (unknown) (unknown) (no date) (unknown) (unknown) Total Protein 9.6 H (6.3-8.2) g/dL (units unknown) (unknown) (unknown) (no date) (unknown) (unknown) Treatments: (units unknown) (unknown) (unknown) (no date) (unknown) (unknown) Vital Signs - 8 hr ( units unknown) (unknown) (unknown) (no date) (unknown) (unknown) Vital Signs (units unknown) (unknown) (unknown) (no date) (unknown) (unknown) Vital signs: (units unknown) (unknown) (unknown) (no date) (unknown) (unknown) WBC 9.9 (4.5-1 1.0) X103/uL (units unknown) (unknown) (unknown) (no date) (unknown) (unknown) XR abdomen 1V Stat ( units unknown) (unknown) (unknown) (no date) (unknown) (unknown) [Embedded Imag e Not Available] (units unknown) (unknown) (unknown) (no date) (unknown) (unknown) [METOCLOPRAMIDE] (un its unknown) (unknown) (unknown) (no date) (unknown) (unknown) abdominal pain that comes in waves without warning. She is had no runny nose, (units unknown) (unknown) (unknown) (no date) (unknown) (unknown) additional outpatient follow up (units unknown) (unknown) (unknown) (no date) (unknown) (unknown) alcohol intake frequency: 3 or more drinks per day (units unknown) (unknown) (unknown) (no date) (unknown) (unknown) alcohol intake : current (units unknown) (unknown) (unknown) (no date) (unknown) (unknown) any change in her bowel habits. (units unknown) (unknown) (unknown) (no date) (unknown) (unknown) been reviewed with patient as well as indications for ED re-evaluation and (units unknown) (unknown) (unknown) (no date) (unknown) (unknown) bupropion HCl 100 mg tablet sustained-release 12 hr (units unknown) (unknown) (unknown) (no date) (unknown) (unknown) bupropion HCl 100 mg tablet,12 hr 100 mg PO DAILY #90 ea 04/14/22 (units unknown) (unknown) (unknown) (no date) (unknown) (unknown) complaint of s evere abdominal pain and multiple episodes of nausea and vomiting (units unknown) (unknown) (unknown) (no date) (unknown) (unknown) dizziness. (units unknown) (unknown) (unknown) (no date) (unknown) (unknown) emesis bag, pa cing, heart rate regular, lungs clear, abdomen tender but soft (units unknown) (unknown) (unknown) (no date) (unknown) (unknown) household memb ers: spouse (units unknown) (unknown) (unknown) (no date) (unknown) (unknown) icterus. No injection or drainage. (units unknown) (unknown) (unknown) (no date) (unknown) (unknown) latex [LATEX] Allergy Unknown Verified 04/13/22 09:42 (units unknown) (unknown) (unknown) (no date) (unknown) (unknown) metoclopramide AdvReac Unknown DYSTONIA Verified 04/13/22 09:42 (units unknown) (unknown) (unknown) (no date) (unknown) (unknown) migraine, nilam l obstruction, electrolyte abnormality versus other (units unknown) (unknown) (unknown) (no date) (unknown) (unknown) obvious distre ss. Pacing (units unknown) (unknown) (unknown) (no date) (unknown) (unknown) over the cours e of the day. She denies any change in her medications or diet. (units unknown) (unknown) (unknown) (no date) (unknown) (unknown) potassium chlo ride 20 mEq 40 meq PO DAILY #90 tabs 04/14/22 (units unknown) (unknown) (unknown) (no date) (unknown) (unknown) potassium chlo ride 20 mEq tablet extended release (units unknown) (unknown) (unknown) (no date) (unknown) (unknown) present, nondistended. (units unknown) (unknown) (unknown) (no date) (unknown) (unknown) prior electrol yte abnormalities presents with her significant other and a chief (units unknown) (unknown) (unknown) (no date) (unknown) (unknown) promethazine [PROMETHAZINE] Allergy Mild ERYTHEMA Verified 04/13/22 09:42 (units unknown) (unknown) (unknown) (no date) (unknown) (unknown) rales, or rhonchi. ( units unknown) (unknown) (unknown) (no date) (unknown) (unknown) seizures, incoordination. (units unknown) (unknown) (unknown) (no date) (unknown) (unknown) significant leukocytosis though there is a small relative left shift (units unknown) (unknown) (unknown) (no date) (unknown) (unknown) sore throat or cough. She denies chest pain or shortness of breath. She denies (units unknown) (unknown) (unknown) (no date) (unknown) (unknown) spironolactone 25 mg tablet 25 mg PO DAILY #90 tabs 04/14/22 (units unknown) (unknown) (unknown) (no date) (unknown) (unknown) spironolactone 25 mg tablet (units unknown) (unknown) (unknown) (no date) (unknown) (unknown) sustained-release (u nits unknown) (unknown) (unknown) (no date) (unknown) (unknown) tablet,extende d release (units unknown) (unknown) (unknown) (no date) (unknown) (unknown) tobacco type: vaping (units unknown) (unknown) (unknown) (no date) (unknown) (unknown) tonsillar hypertrophy or exudate. Airway patent. (units unknown) (unknown) (unknown) (no date) (unknown) (unknown) vomiting (units unknown) (unknown) Result panel 802 (unknown) (no date) (unknown) (unknown) (no value) (units unknown) (unknown) (unknown) (no date) (unknown) (unknown) 10/10/2210/1010/10/22 Range/Units (units unknown) (unknown) (unknown) (no date) (unknown) (unknown) 10/10/22 16:13 (unit s unknown) (unknown) (unknown) (no date) (unknown) (unknown) 10/10/22 16:14 (unit s unknown) (unknown) (unknown) (no date) (unknown) (unknown) 10/10/22 16:25 (unit s unknown) (unknown) (unknown) (no date) (unknown) (unknown) 10/10/22 (units unknown) (unknown) (unknown) (no date) (unknown) (unknown) 100 mg PO JEAN Y Qty: 90 0RF (units unknown) (unknown) (unknown) (no date) (unknown) (unknown) 12 point revie w of systems is negative except for those stated above (units unknown) (unknown) (unknown) (no date) (unknown) (unknown) 16:02 10/10/22 (unit s unknown) (unknown) (unknown) (no date) (unknown) (unknown) 16:25 16:25 16:25 (u nits unknown) (unknown) (unknown) (no date) (unknown) (unknown) 16:38 10/10/22 (unit s unknown) (unknown) (unknown) (no date) (unknown) (unknown) 17:00 (units unknown) (unknown) (unknown) (no date) (unknown) (unknown) 17:30 10/10/22 (unit s unknown) (unknown) (unknown) (no date) (unknown) (unknown) 17:58 10/10/22 (unit s unknown) (unknown) (unknown) (no date) (unknown) (unknown) 17:58 (units unknown) (unknown) (unknown) (no date) (unknown) (unknown) 18:00 10/10/22 (unit s unknown) (unknown) (unknown) (no date) (unknown) (unknown) 18:00 (units unknown) (unknown) (unknown) (no date) (unknown) (unknown) 25 mg PO DAILY Qty: 90 0RF (units unknown) (unknown) (unknown) (no date) (unknown) (unknown) 25 mg ND PRN P RN (Reason: Nausea) (units unknown) (unknown) (unknown) (no date) (unknown) (unknown) [id number] (units unknown) (unknown) (unknown) (no date) (unknown) (unknown) 40 meq PO JEAN Y Qty: 90 0RF (units unknown) (unknown) (unknown) (no date) (unknown) (unknown) 47-year-old fe male with history of cyclic vomiting, abdominal migraines and (units unknown) (unknown) (unknown) (no date) (unknown) (unknown) ABLE TO (units unknown) (unknown) (unknown) (no date) (unknown) (unknown) ALT 38 H (<35) IU/L (units unknown) (unknown) (unknown) (no date) (unknown) (unknown) AST 34 (14-36) IU/L (units unknown) (unknown) (unknown) (no date) (unknown) (unknown) Abscess (units unknown) (unknown) (unknown) (no date) (unknown) (unknown) Admin: 3 16:32 Dose: 1,000 mls/hr (units unknown) (unknown) (unknown) (no date) (unknown) (unknown) Age/Sex: 47 / F (uni ts unknown) (unknown) (unknown) (no date) (unknown) (unknown) Albumin 5.3 H (3.5-5.0) g/dL (units unknown) (unknown) (unknown) (no date) (unknown) (unknown) Albumin/Globul in Ratio 1.2 (1.0-2.8) (units unknown) (unknown) (unknown) (no date) (unknown) (unknown) Alcohol type: wine ( units unknown) (unknown) (unknown) (no date) (unknown) (unknown) Alkaline Phosphatase 103 (38-126) U/L (units unknown) (unknown) (unknown) (no date) (unknown) (unknown) Allergies (units unknown) (unknown) (unknown) (no date) (unknown) (unknown) Allergy/AdvRea c Type Severity Reaction Status Date / Time (units unknown) (unknown) (unknown) (no date) (unknown) (unknown) BACK: Nontende r without deformity or crepitance. No flank tenderness. (units unknown) (unknown) (unknown) (no date) (unknown) (unknown) BUN 15 (7-17) mg/dL (units unknown) (unknown) (unknown) (no date) (unknown) (unknown) BUN/Creatinine Ratio 18.3 (6-22) (units unknown) (unknown) (unknown) (no date) (unknown) (unknown) Baso # (Auto) 0 (0-100) /uL (units unknown) (unknown) (unknown) (no date) (unknown) (unknown) Baso % (Auto) 0.3 (0-2) % (units unknown) (unknown) (unknown) (no date) (unknown) (unknown) Blood Pressure 109/71 (units unknown) (unknown) (unknown) (no date) (unknown) (unknown) Blood Pressure 118/64 110/62 (units unknown) (unknown) (unknown) (no date) (unknown) (unknown) Blood Pressure 156/104 H 10/10/22 16:02 (units unknown) (unknown) (unknown) (no date) (unknown) (unknown) Blood Pressure 156/104 H (units unknown) (unknown) (unknown) (no date) (unknown) (unknown) CARDIOVASCULAR : Denies chest pain, palpitations, orthopnea, edema, (units unknown) (unknown) (unknown) (no date) (unknown) (unknown) CARDIOVASCULAR : Regular rate and rhythm without murmurs, gallops, or rubs. (units unknown) (unknown) (unknown) (no date) (unknown) (unknown) CC: 47-year-ol d female with history of abdominal pain, vomiting (units unknown) (unknown) (unknown) (no date) (unknown) (unknown) Calcium 10.0 (8.4-10.2) mg/dL (units unknown) (unknown) (unknown) (no date) (unknown) (unknown) Carbon Dioxide 21 L (22-32) mmol/L (units unknown) (unknown) (unknown) (no date) (unknown) (unknown) Chief complain t: Nausea/Vomiting/Trupti rrhea (units unknown) (unknown) (unknown) (no date) (unknown) (unknown) Chloride 101 (98-107) mmol/L (units unknown) (unknown) (unknown) (no date) (unknown) (unknown) Chronic abdomi nal pain (units unknown) (unknown) (unknown) (no date) (unknown) (unknown) Compazine 25 m g ND PRN PRN Nausea 07/06/22 07/06/22 (units unknown) (unknown) (unknown) (no date) (unknown) (unknown) Compazine suppository (units unknown) (unknown) (unknown) (no date) (unknown) (unknown) Complete Blood Count AUTO DIFF Stat (units unknown) (unknown) (unknown) (no date) (unknown) (unknown) Complicating co-morbidities: Abdominal migraines, intractable vomiting, cyclic (units unknown) (unknown) (unknown) (no date) (unknown) (unknown) Comprehensive Metabolic Panel Stat (units unknown) (unknown) (unknown) (no date) (unknown) (unknown) Consultations: (unit s unknown) (unknown) (unknown) (no date) (unknown) (unknown) Course (units unknown) (unknown) (unknown) (no date) (unknown) (unknown) Creatinine 0.8 2 (0.52-1.04) mg/dL (units unknown) (unknown) (unknown) (no date) (unknown) (unknown) Cyclic vomitin g syndrome (units unknown) (unknown) (unknown) (no date) (unknown) (unknown) : 3 Acct:[id number] (units unknown) (unknown) (unknown) (no date) (unknown) (unknown) Data collected from: Patient (units unknown) (unknown) (unknown) (no date) (unknown) (unknown) Date of Servic e: 10/10/22 (units unknown) (unknown) (unknown) (no date) (unknown) (unknown) Daughter Angio-edema (units unknown) (unknown) (unknown) (no date) (unknown) (unknown) Departure (units unknown) (unknown) (unknown) (no date) (unknown) (unknown) Differential considered, but not limited to: Cyclic vomiting, abdominal (units unknown) (unknown) (unknown) (no date) (unknown) (unknown) Discharge Plan (unit s unknown) (unknown) (unknown) (no date) (unknown) (unknown) Discontinued Medications (units unknown) (unknown) (unknown) (no date) (unknown) (unknown) Discussion: (units unknown) (unknown) (unknown) (no date) (unknown) (unknown) Disposition: s ee below, along with detailed discharge instructions that have (units unknown) (unknown) (unknown) (no date) (unknown) (unknown) Documented By: AQUILINO (u nits unknown) (unknown) (unknown) (no date) (unknown) (unknown) Documented By: AQUILINO(2) (units unknown) (unknown) (unknown) (no date) (unknown) (unknown) ED Orders (units unknown) (unknown) (unknown) (no date) (unknown) (unknown) ENT: Nose with out bleeding, purulent drainage. Throat without erythema, (units unknown) (unknown) (unknown) (no date) (unknown) (unknown) ER Physician: Mino Martínez D.O. (units unknown) (unknown) (unknown) (no date) (unknown) (unknown) EXTREMITIES: N o edema or joint tenderness. (units unknown) (unknown) (unknown) (no date) (unknown) (unknown) EYES: Pupils e qual round and reactive. Extraocular motions intact. No scleral (units unknown) (unknown) (unknown) (no date) (unknown) (unknown) Emergency Report (un its unknown) (unknown) (unknown) (no date) (unknown) (unknown) Eos # (Auto) 0 (0-450) /uL (units unknown) (unknown) (unknown) (no date) (unknown) (unknown) Eos % (Auto) 0 .1 L (2-4) % (units unknown) (unknown) (unknown) (no date) (unknown) (unknown) Estimated GFR > 60 (>60) mL/min (units unknown) (unknown) (unknown) (no date) (unknown) (unknown) Exam Narrative: (uni ts unknown) (unknown) (unknown) (no date) (unknown) (unknown) Exam documente d above, pertinent findings include: obviously in pain, holding an (units unknown) (unknown) (unknown) (no date) (unknown) (unknown) Exam (units unknown) (unknown) (unknown) (no date) (unknown) (unknown) Family History (units unknown) (unknown) (unknown) (no date) (unknown) (unknown) Family history of angioedema (units unknown) (unknown) (unknown) (no date) (unknown) (unknown) Father Hypertension (units unknown) (unknown) (unknown) (no date) (unknown) (unknown) GASTROINTESTIN AL: Abdomen soft,severe generalized tenderness, soft, bowel sounds (units unknown) (unknown) (unknown) (no date) (unknown) (unknown) GASTROINTESTIN AL: See HPI (units unknown) (unknown) (unknown) (no date) (unknown) (unknown) GENERAL: Denie s chills, fatigue, malaise, fever, sweats. (units unknown) (unknown) (unknown) (no date) (unknown) (unknown) GENERAL: [47] year old patient appears stated age. Well-developed patient, in (units unknown) (unknown) (unknown) (no date) (unknown) (unknown) : Denies dys uria, frequency, incontinence, hematuria, urinary retention. (units unknown) (unknown) (unknown) (no date) (unknown) (unknown) General (units unknown) (unknown) (unknown) (no date) (unknown) (unknown) Globulin 4.3 H (1.7-4.1) g/dL (units unknown) (unknown) (unknown) (no date) (unknown) (unknown) Glucose 172 H (70-100) mg/dL (units unknown) (unknown) (unknown) (no date) (unknown) (unknown) Glucose POC 173 (uni ts unknown) (unknown) (unknown) (no date) (unknown) (unknown) HEAD: Atraumat ic. Normocephalic. (units unknown) (unknown) (unknown) (no date) (unknown) (unknown) HEENT: Denies sinus pain, ear pain, sore throat, difficulty swallowing, (units unknown) (unknown) (unknown) (no date) (unknown) (unknown) HPI - Nausea/Vomiting/Trupti rrhea (units unknown) (unknown) (unknown) (no date) (unknown) (unknown) HPI Narrative: (unit s unknown) (unknown) (unknown) (no date) (unknown) (unknown) Haloperidol (Haloperidol 5 Mg/Ml Vial) 5 mg IV NOW ONE (units unknown) (unknown) (unknown) (no date) (unknown) (unknown) Hct 41.9 (36-46) % ( units unknown) (unknown) (unknown) (no date) (unknown) (unknown) Hgb 14.0 (12.0-16.0) g/dL (units unknown) (unknown) (unknown) (no date) (unknown) (unknown) History of Pre sent Illness (units unknown) (unknown) (unknown) (no date) (unknown) (unknown) Home Medications (un its unknown) (unknown) (unknown) (no date) (unknown) (unknown) Hx of appendectomy ( units unknown) (unknown) (unknown) (no date) (unknown) (unknown) Hx of cholecystectomy (units unknown) (unknown) (unknown) (no date) (unknown) (unknown) Imaging studie s independently reviewed: (units unknown) (unknown) (unknown) (no date) (unknown) (unknown) Independently reviewed EKG as above (units unknown) (unknown) (unknown) (no date) (unknown) (unknown) Initial Vital Signs (units unknown) (unknown) (unknown) (no date) (unknown) (unknown) Initial Vital Signs: (units unknown) (unknown) (unknown) (no date) (unknown) (unknown) [address] [address] (units unknown) (unknown) (unknown) (no date) (unknown) (unknown) Sergo Martino M D [Primary Care Provider] (units unknown) (unknown) (unknown) (no date) (unknown) (unknown) Lab Data (units unknown) (unknown) (unknown) (no date) (unknown) (unknown) Lab Results (units unknown) (unknown) (unknown) (no date) (unknown) (unknown) Lab Test resul ts independently reviewed as above. Pertinent findings: No (units unknown) (unknown) (unknown) (no date) (unknown) (unknown) Labs: (units unknown) (unknown) (unknown) (no date) (unknown) (unknown) Lactate (Lacti c Acid) Stat (units unknown) (unknown) (unknown) (no date) (unknown) (unknown) Lactate 5.4 H* (0.7-2.1) mmol/L (units unknown) (unknown) (unknown) (no date) (unknown) (unknown) Last Admin: 10/10/22 16:32 Dose: 40 mg (units unknown) (unknown) (unknown) (no date) (unknown) (unknown) Last Admin: 10/10/22 16:32 Dose: 5 mg (units unknown) (unknown) (unknown) (no date) (unknown) (unknown) Last Admin: 10/10/22 17:38 Dose: 1 mg (units unknown) (unknown) (unknown) (no date) (unknown) (unknown) Last Infusion: 10/10/22 17:39 Dose: 0 mls/hr (units unknown) (unknown) (unknown) (no date) (unknown) (unknown) Lorazepam (Lorazepam 2 Mg/Ml Inj) 1 mg IV NOW ONE (units unknown) (unknown) (unknown) (no date) (unknown) (unknown) Lymph # (Auto) 800 L (4069-9671) /uL (units unknown) (unknown) (unknown) (no date) (unknown) (unknown) Lymph % (Auto) 8.0 L (25-40) % (units unknown) (unknown) (unknown) (no date) (unknown) (unknown) MCH 30.7 (26-34) PG (units unknown) (unknown) (unknown) (no date) (unknown) (unknown) MCHC 33.5 (30-36) % (units unknown) (unknown) (unknown) (no date) (unknown) (unknown) MCV 91.5 (80-1 00) fL (units unknown) (unknown) (unknown) (no date) (unknown) (unknown) MDM - Nausea/Vomiting/Trupti rrhea (units unknown) (unknown) (unknown) (no date) (unknown) (unknown) MDM Narrative (units unknown) (unknown) (unknown) (no date) (unknown) (unknown) MIPS Elements: (unit s unknown) (unknown) (unknown) (no date) (unknown) (unknown) 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 (units unknown) (unknown) (unknown) (no date) (unknown) (unknown) MUSCULOS[place]LE[place] L: denies weakness, joint pain, or bony pain (units unknown) (unknown) (unknown) (no date) (unknown) (unknown) Marijuana use, continuous (units unknown) (unknown) (unknown) (no date) (unknown) (unknown) Medical Histor y (units unknown) (unknown) (unknown) (no date) (unknown) (unknown) Medical decisi on making narrative: (units unknown) (unknown) (unknown) (no date) (unknown) (unknown) Medical record s reviewed: Multiple prior visits here (units unknown) (unknown) (unknown) (no date) (unknown) (unknown) Medication Instructions Recorded Confirmed (units unknown) (unknown) (unknown) (no date) (unknown) (unknown) Medication Instructions Recorded (units unknown) (unknown) (unknown) (no date) (unknown) (unknown) Mode of arriva l: Ambulatory (units unknown) (unknown) (unknown) (no date) (unknown) (unknown) Larue # (Auto) 300 (0-900) /uL (units unknown) (unknown) (unknown) (no date) (unknown) (unknown) Larue % (Auto) 2.9 L (3-14) % (units unknown) (unknown) (unknown) (no date) (unknown) (unknown) Mother Diabete s mellitus (units unknown) (unknown) (unknown) (no date) (unknown) (unknown) NECK: Trachea midline. Non tender (units unknown) (unknown) (unknown) (no date) (unknown) (unknown) NEURO: AOx3. (units unknown) (unknown) (unknown) (no date) (unknown) (unknown) NEUROLOGIC: De nies weakness, headache, numbness, change in speech, confusion, (units unknown) (unknown) (unknown) (no date) (unknown) (unknown) Narrative (units unknown) (unknown) (unknown) (no date) (unknown) (unknown) Narrative: (units unknown) (unknown) (unknown) (no date) (unknown) (unknown) Neut # (Auto) 8800 H (5295-0472) /uL (units unknown) (unknown) (unknown) (no date) (unknown) (unknown) Neut % (Auto) 88.7 H (50-75) % (units unknown) (unknown) (unknown) (no date) (unknown) (unknown) No Action (units unknown) (unknown) (unknown) (no date) (unknown) (unknown) Ordered: (units unknown) (unknown) (unknown) (no date) (unknown) (unknown) Orders (units unknown) (unknown) (unknown) (no date) (unknown) (unknown) Other Colon cancer ( units unknown) (unknown) (unknown) (no date) (unknown) (unknown) Oxygen Deliver y Method 10/10/22 16:02 (units unknown) (unknown) (unknown) (no date) (unknown) (unknown) Oxygen Deliver y Method Room Air (units unknown) (unknown) (unknown) (no date) (unknown) (unknown) Oxygen Deliver y Method (units unknown) (unknown) (unknown) (no date) (unknown) (unknown) PSYCHIATRIC: N o concerning psychosocial issues. (units unknown) (unknown) (unknown) (no date) (unknown) (unknown) PT STATES (units unknown) (unknown) (unknown) (no date) (unknown) (unknown) Pancreatitis (units unknown) (unknown) (unknown) (no date) (unknown) (unknown) Pantoprazole S odium (Pantoprazole 40 Mg Vial) 40 mg IV NOW ONE (units unknown) (unknown) (unknown) (no date) (unknown) (unknown) Patient History (uni ts unknown) (unknown) (unknown) (no date) (unknown) (unknown) Patient feelin g significant improvement, resting comfortably (units unknown) (unknown) (unknown) (no date) (unknown) (unknown) Patient with moderate improvement after Haldol, requesting Ativan (units unknown) (unknown) (unknown) (no date) (unknown) (unknown) Patient: Huyen Castro MR#: [id number] (units unknown) (unknown) (unknown) (no date) (unknown) (unknown) Plt Count 293 (150-400) X103/uL (units unknown) (unknown) (unknown) (no date) (unknown) (unknown) Point of Care Testing (units unknown) (unknown) (unknown) (no date) (unknown) (unknown) Potassium 3.4 (3.4-5.1) mmol/L (units unknown) (unknown) (unknown) (no date) (unknown) (unknown) Prescriptions: (unit s unknown) (unknown) (unknown) (no date) (unknown) (unknown) Previous Rx's (units unknown) (unknown) (unknown) (no date) (unknown) (unknown) Pulse Oximetry 100 10/10/22 16:02 (units unknown) (unknown) (unknown) (no date) (unknown) (unknown) Pulse Oximetry 100 100 100 (units unknown) (unknown) (unknown) (no date) (unknown) (unknown) Pulse Oximetry 93 96 (units unknown) (unknown) (unknown) (no date) (unknown) (unknown) Pulse Oximetry 96 95 (units unknown) (unknown) (unknown) (no date) (unknown) (unknown) Pulse Rate 86 (units unknown) (unknown) (unknown) (no date) (unknown) (unknown) Pulse Rate 91 H 10/10/22 16:02 (units unknown) (unknown) (unknown) (no date) (unknown) (unknown) Pulse Rate 91 H 79 ( units unknown) (unknown) (unknown) (no date) (unknown) (unknown) Pulse Rate 91 H 81 80 (units unknown) (unknown) (unknown) (no date) (unknown) (unknown) RBC 4.57 (4.0- 5.2) X106/uL (units unknown) (unknown) (unknown) (no date) (unknown) (unknown) RDW 13.4 (11.6-14.8) % (units unknown) (unknown) (unknown) (no date) (unknown) (unknown) RESPIRATORY: C lear to auscultation. Breath sounds equal bilaterally. No wheezes, (units unknown) (unknown) (unknown) (no date) (unknown) (unknown) RESPIRATORY: D enies dyspnea, cough, wheezing, hemoptysis, sputum. (units unknown) (unknown) (unknown) (no date) (unknown) (unknown) Re-evaluations: (uni ts unknown) (unknown) (unknown) (no date) (unknown) (unknown) Reevaluation #1: (un its unknown) (unknown) (unknown) (no date) (unknown) (unknown) Reevaluation #2: (un its unknown) (unknown) (unknown) (no date) (unknown) (unknown) Reevaluation(s) (uni ts unknown) (unknown) (unknown) (no date) (unknown) (unknown) Referrals: (units unknown) (unknown) (unknown) (no date) (unknown) (unknown) Related Data (units unknown) (unknown) (unknown) (no date) (unknown) (unknown) Respiratory Rate 18 (units unknown) (unknown) (unknown) (no date) (unknown) (unknown) Respiratory Ra te 24 10/10/22 16:02 (units unknown) (unknown) (unknown) (no date) (unknown) (unknown) Respiratory Ra te 24 17 13 (units unknown) (unknown) (unknown) (no date) (unknown) (unknown) Respiratory Rate 24 (units unknown) (unknown) (unknown) (no date) (unknown) (unknown) Review of Systems (u nits unknown) (unknown) (unknown) (no date) (unknown) (unknown) SKIN: Denies r tiara, skin lesions, or other (units unknown) (unknown) (unknown) (no date) (unknown) (unknown) SKIN: No rash or erythema of visible areas (units unknown) (unknown) (unknown) (no date) (unknown) (unknown) Scores Used: (units unknown) (unknown) (unknown) (no date) (unknown) (unknown) She is had no fever or chills. She complains of severe generalized crampy (units unknown) (unknown) (unknown) (no date) (unknown) (unknown) Signed By: (units unknown) (unknown) (unknown) (no date) (unknown) (unknown) Smoking Status : Current every day smoker (units unknown) (unknown) (unknown) (no date) (unknown) (unknown) Social History (units unknown) (unknown) (unknown) (no date) (unknown) (unknown) Sodium 143 (137-145) mmol/L (units unknown) (unknown) (unknown) (no date) (unknown) (unknown) Sodium Chlorid e (Normal Saline 0.9%) 1,000 mls @ 1,000 mls/hr IV BOLUS ONE (units unknown) (unknown) (unknown) (no date) (unknown) (unknown) Source: patient (uni ts unknown) (unknown) (unknown) (no date) (unknown) (unknown) Stated complai nt: vomiting (units unknown) (unknown) (unknown) (no date) (unknown) (unknown) Stool Culture Stat ( units unknown) (unknown) (unknown) (no date) (unknown) (unknown) Stop: 10/10/22 16:14 (units unknown) (unknown) (unknown) (no date) (unknown) (unknown) Stop: 10/10/22 17:12 (units unknown) (unknown) (unknown) (no date) (unknown) (unknown) Stop: 10/10/22 17:34 (units unknown) (unknown) (unknown) (no date) (unknown) (unknown) Stop: 10/10/22 19:51 (units unknown) (unknown) (unknown) (no date) (unknown) (unknown) Substance Use Type: former substance user, marijuana and methamphetamine (units unknown) (unknown) (unknown) (no date) (unknown) (unknown) Surgical Histo ry (units unknown) (unknown) (unknown) (no date) (unknown) (unknown) TAKE ND (units unknown) (unknown) (unknown) (no date) (unknown) (unknown) TO IV SITE (units unknown) (unknown) (unknown) (no date) (unknown) (unknown) Temperature 98 .7 F 10/10/22 16:02 (units unknown) (unknown) (unknown) (no date) (unknown) (unknown) Temperature 98.7 F ( units unknown) (unknown) (unknown) (no date) (unknown) (unknown) Temperature (units unknown) (unknown) (unknown) (no date) (unknown) (unknown) Time Seen by Provider: 10/10/22 16:13 (units unknown) (unknown) (unknown) (no date) (unknown) (unknown) Total Bilirubi n 1.0 (0.2-1.3) mg/dL (units unknown) (unknown) (unknown) (no date) (unknown) (unknown) Total Protein 9.6 H (6.3-8.2) g/dL (units unknown) (unknown) (unknown) (no date) (unknown) (unknown) Treatments: (units unknown) (unknown) (unknown) (no date) (unknown) (unknown) Vital Signs - 8 hr ( units unknown) (unknown) (unknown) (no date) (unknown) (unknown) Vital Signs (units unknown) (unknown) (unknown) (no date) (unknown) (unknown) Vital signs: (units unknown) (unknown) (unknown) (no date) (unknown) (unknown) WBC 9.9 (4.5-1 1.0) X103/uL (units unknown) (unknown) (unknown) (no date) (unknown) (unknown) XR abdomen 1V Stat ( units unknown) (unknown) (unknown) (no date) (unknown) (unknown) [Embedded Imag e Not Available] (units unknown) (unknown) (unknown) (no date) (unknown) (unknown) [METOCLOPRAMIDE] (un its unknown) (unknown) (unknown) (no date) (unknown) (unknown) abdominal pain that comes in waves without warning. She is had no runny nose, (units unknown) (unknown) (unknown) (no date) (unknown) (unknown) additional outpatient follow up (units unknown) (unknown) (unknown) (no date) (unknown) (unknown) alcohol intake frequency: 3 or more drinks per day (units unknown) (unknown) (unknown) (no date) (unknown) (unknown) alcohol intake : current (units unknown) (unknown) (unknown) (no date) (unknown) (unknown) any change in her bowel habits. (units unknown) (unknown) (unknown) (no date) (unknown) (unknown) been reviewed with patient as well as indications for ED re-evaluation and (units unknown) (unknown) (unknown) (no date) (unknown) (unknown) bupropion HCl 100 mg tablet sustained-release 12 hr (units unknown) (unknown) (unknown) (no date) (unknown) (unknown) bupropion HCl 100 mg tablet,12 hr 100 mg PO DAILY #90 ea 04/14/22 (units unknown) (unknown) (unknown) (no date) (unknown) (unknown) complaint of s evere abdominal pain and multiple episodes of nausea and vomiting (units unknown) (unknown) (unknown) (no date) (unknown) (unknown) dizziness. (units unknown) (unknown) (unknown) (no date) (unknown) (unknown) emesis bag, pa cing, heart rate regular, lungs clear, abdomen tender but soft (units unknown) (unknown) (unknown) (no date) (unknown) (unknown) household memb ers: spouse (units unknown) (unknown) (unknown) (no date) (unknown) (unknown) icterus. No injection or drainage. (units unknown) (unknown) (unknown) (no date) (unknown) (unknown) latex [LATEX] Allergy Unknown Verified 04/13/22 09:42 (units unknown) (unknown) (unknown) (no date) (unknown) (unknown) metoclopramide AdvReac Unknown DYSTONIA Verified 04/13/22 09:42 (units unknown) (unknown) (unknown) (no date) (unknown) (unknown) migraine, nilam l obstruction, electrolyte abnormality versus other (units unknown) (unknown) (unknown) (no date) (unknown) (unknown) obvious distre ss. Pacing (units unknown) (unknown) (unknown) (no date) (unknown) (unknown) over the cours e of the day. She denies any change in her medications or diet. (units unknown) (unknown) (unknown) (no date) (unknown) (unknown) potassium chlo ride 20 mEq 40 meq PO DAILY #90 tabs 04/14/22 (units unknown) (unknown) (unknown) (no date) (unknown) (unknown) potassium chlo ride 20 mEq tablet extended release (units unknown) (unknown) (unknown) (no date) (unknown) (unknown) present, nondistended. (units unknown) (unknown) (unknown) (no date) (unknown) (unknown) prior electrol yte abnormalities presents with her significant other and a chief (units unknown) (unknown) (unknown) (no date) (unknown) (unknown) promethazine [PROMETHAZINE] Allergy Mild ERYTHEMA Verified 04/13/22 09:42 (units unknown) (unknown) (unknown) (no date) (unknown) (unknown) rales, or rhonchi. ( units unknown) (unknown) (unknown) (no date) (unknown) (unknown) seizures, incoordination. (units unknown) (unknown) (unknown) (no date) (unknown) (unknown) significant leukocytosis though there is a small relative left shift (units unknown) (unknown) (unknown) (no date) (unknown) (unknown) sore throat or cough. She denies chest pain or shortness of breath. She denies (units unknown) (unknown) (unknown) (no date) (unknown) (unknown) spironolactone 25 mg tablet 25 mg PO DAILY #90 tabs 04/14/22 (units unknown) (unknown) (unknown) (no date) (unknown) (unknown) spironolactone 25 mg tablet (units unknown) (unknown) (unknown) (no date) (unknown) (unknown) sustained-release (u nits unknown) (unknown) (unknown) (no date) (unknown) (unknown) tablet,extende d release (units unknown) (unknown) (unknown) (no date) (unknown) (unknown) tobacco type: vaping (units unknown) (unknown) (unknown) (no date) (unknown) (unknown) tonsillar hypertrophy or exudate. Airway patent. (units unknown) (unknown) (unknown) (no date) (unknown) (unknown) vomiting (units unknown) (unknown) Result panel 803 (unknown) (no date) (unknown) (unknown) 1.6 mmol/l (unknown ) Result panel 804 (unknown) (no date) (unknown) (unknown) (no value) (units unknown) (unknown) (unknown) (no date) (unknown) (unknown) <Electronicall y signed by Mino Martínez D.O.> (units unknown) (unknown) (unknown) (no date) (unknown) (unknown) <[place] DO Med - Last Filed: 10/10/22 18:59> (units unknown) (unknown) (unknown) (no date) (unknown) (unknown) <Mino dangelo DO - Last Filed: 10/11/22 01:51> (units unknown) (unknown) (unknown) (no date) (unknown) (unknown) 10/10/2210/1010/10/22 Range/Units (units unknown) (unknown) (unknown) (no date) (unknown) (unknown) 10/10/22 16:25 (unit s unknown) (unknown) (unknown) (no date) (unknown) (unknown) 10/10/22 Range/Units (units unknown) (unknown) (unknown) (no date) (unknown) (unknown) 10/10/22 (units unknown) (unknown) (unknown) (no date) (unknown) (unknown) 10/11/22 0151 (units unknown) (unknown) (unknown) (no date) (unknown) (unknown) 100 mg PO JEAN Y Qty: 90 0RF (units unknown) (unknown) (unknown) (no date) (unknown) (unknown) 12 point revie w of systems is negative except for those stated above (units unknown) (unknown) (unknown) (no date) (unknown) (unknown) 16:25 16:25 16:25 (u nits unknown) (unknown) (unknown) (no date) (unknown) (unknown) 17:58 10/10/22 (unit s unknown) (unknown) (unknown) (no date) (unknown) (unknown) 18:00 10/10/22 (unit s unknown) (unknown) (unknown) (no date) (unknown) (unknown) 18:00 (units unknown) (unknown) (unknown) (no date) (unknown) (unknown) 18:30 10/10/22 (unit s unknown) (unknown) (unknown) (no date) (unknown) (unknown) 18:30 (units unknown) (unknown) (unknown) (no date) (unknown) (unknown) 18:49 (units unknown) (unknown) (unknown) (no date) (unknown) (unknown) 19:00 10/10/22 (unit s unknown) (unknown) (unknown) (no date) (unknown) (unknown) 19:30 (units unknown) (unknown) (unknown) (no date) (unknown) (unknown) 20:00 10/10/22 (unit s unknown) (unknown) (unknown) (no date) (unknown) (unknown) 20:30 10/10/22 (unit s unknown) (unknown) (unknown) (no date) (unknown) (unknown) 20:59 10/10/22 (unit s unknown) (unknown) (unknown) (no date) (unknown) (unknown) 20:59 (units unknown) (unknown) (unknown) (no date) (unknown) (unknown) 21:00 10/10/22 (unit s unknown) (unknown) (unknown) (no date) (unknown) (unknown) 21:00 (units unknown) (unknown) (unknown) (no date) (unknown) (unknown) 21:11 10/10/22 (unit s unknown) (unknown) (unknown) (no date) (unknown) (unknown) 21:30 10/10/22 (unit s unknown) (unknown) (unknown) (no date) (unknown) (unknown) 21:30 (units unknown) (unknown) (unknown) (no date) (unknown) (unknown) 22:00 10/10/22 (unit s unknown) (unknown) (unknown) (no date) (unknown) (unknown) 22:00 (units unknown) (unknown) (unknown) (no date) (unknown) (unknown) 25 mg PO DAILY Qty: 90 0RF (units unknown) (unknown) (unknown) (no date) (unknown) (unknown) 25 mg ND PRN P RN (Reason: Nausea) (units unknown) (unknown) (unknown) (no date) (unknown) (unknown) 25 mg ND Q4-6H PRN (Reason: nausea and vomiting) Qty: 12 0RF (units unknown) (unknown) (unknown) (no date) (unknown) (unknown) [id number] (units unknown) (unknown) (unknown) (no date) (unknown) (unknown) 40 meq PO JEAN Y Qty: 90 0RF (units unknown) (unknown) (unknown) (no date) (unknown) (unknown) 47-year-old fe male with history of cyclic vomiting, abdominal migraines and (units unknown) (unknown) (unknown) (no date) (unknown) (unknown) ABLE TO (units unknown) (unknown) (unknown) (no date) (unknown) (unknown) ALT (<35) IU/L (unit s unknown) (unknown) (unknown) (no date) (unknown) (unknown) ALT 38 H (<35) IU/L (units unknown) (unknown) (unknown) (no date) (unknown) (unknown) AST (14-36) IU/L (un its unknown) (unknown) (unknown) (no date) (unknown) (unknown) AST 34 (14-36) IU/L (units unknown) (unknown) (unknown) (no date) (unknown) (unknown) Abscess (units unknown) (unknown) (unknown) (no date) (unknown) (unknown) Activity Restrictions/Additi onal Instructions: (units unknown) (unknown) (unknown) (no date) (unknown) (unknown) Admin: 3 16:32 Dose: 1,000 mls/hr (units unknown) (unknown) (unknown) (no date) (unknown) (unknown) Admin: 3 19:34 Dose: 1,000 mls/hr (units unknown) (unknown) (unknown) (no date) (unknown) (unknown) Age/Sex: 47 / F (uni ts unknown) (unknown) (unknown) (no date) (unknown) (unknown) Albumin (3.5-5 .0) g/dL (units unknown) (unknown) (unknown) (no date) (unknown) (unknown) Albumin 5.3 H (3.5-5.0) g/dL (units unknown) (unknown) (unknown) (no date) (unknown) (unknown) Albumin/Globul in Ratio (1.0-2.8) (units unknown) (unknown) (unknown) (no date) (unknown) (unknown) Albumin/Globul in Ratio 1.2 (1.0-2.8) (units unknown) (unknown) (unknown) (no date) (unknown) (unknown) Alcohol type: wine ( units unknown) (unknown) (unknown) (no date) (unknown) (unknown) Alkaline Phosphatase (38-126) U/L (units unknown) (unknown) (unknown) (no date) (unknown) (unknown) Alkaline Phosphatase 103 (38-126) U/L (units unknown) (unknown) (unknown) (no date) (unknown) (unknown) Allergies (units unknown) (unknown) (unknown) (no date) (unknown) (unknown) Allergy/AdvRea c Type Severity Reaction Status Date / Time (units unknown) (unknown) (unknown) (no date) (unknown) (unknown) BACK: Nontende r without deformity or crepitance. No flank tenderness. (units unknown) (unknown) (unknown) (no date) (unknown) (unknown) BUN (7-17) mg/dL (un its unknown) (unknown) (unknown) (no date) (unknown) (unknown) BUN 15 (7-17) mg/dL (units unknown) (unknown) (unknown) (no date) (unknown) (unknown) BUN/Creatinine Ratio (6-22) (units unknown) (unknown) (unknown) (no date) (unknown) (unknown) BUN/Creatinine Ratio 18.3 (6-22) (units unknown) (unknown) (unknown) (no date) (unknown) (unknown) Baso # (Auto) (0-100) /uL (units unknown) (unknown) (unknown) (no date) (unknown) (unknown) Baso # (Auto) 0 (0-100) /uL (units unknown) (unknown) (unknown) (no date) (unknown) (unknown) Baso % (Auto) (0-2) % (units unknown) (unknown) (unknown) (no date) (unknown) (unknown) Baso % (Auto) 0.3 (0-2) % (units unknown) (unknown) (unknown) (no date) (unknown) (unknown) Blood Pressure 102/60 (units unknown) (unknown) (unknown) (no date) (unknown) (unknown) Blood Pressure 108/60 (units unknown) (unknown) (unknown) (no date) (unknown) (unknown) Blood Pressure 118/64 110/62 (units unknown) (unknown) (unknown) (no date) (unknown) (unknown) Blood Pressure 118/65 (units unknown) (unknown) (unknown) (no date) (unknown) (unknown) Blood Pressure 121/78 127/74 (units unknown) (unknown) (unknown) (no date) (unknown) (unknown) Blood Pressure 144/87 H 174/89 H (units unknown) (unknown) (unknown) (no date) (unknown) (unknown) Blood Pressure 156/104 H 10/10/22 16:02 (units unknown) (unknown) (unknown) (no date) (unknown) (unknown) Blood Pressure (unit s unknown) (unknown) (unknown) (no date) (unknown) (unknown) CARDIOVASCULAR : Denies chest pain, palpitations, orthopnea, edema, (units unknown) (unknown) (unknown) (no date) (unknown) (unknown) CARDIOVASCULAR : Regular rate and rhythm without murmurs, gallops, or rubs. (units unknown) (unknown) (unknown) (no date) (unknown) (unknown) CC: 47-year-ol d female with history of abdominal pain, vomiting (units unknown) (unknown) (unknown) (no date) (unknown) (unknown) Calcium (8.4-1 0.2) mg/dL (units unknown) (unknown) (unknown) (no date) (unknown) (unknown) Calcium 10.0 (8.4-10.2) mg/dL (units unknown) (unknown) (unknown) (no date) (unknown) (unknown) Carbon Dioxide (22-32) mmol/L (units unknown) (unknown) (unknown) (no date) (unknown) (unknown) Carbon Dioxide 21 L (22-32) mmol/L (units unknown) (unknown) (unknown) (no date) (unknown) (unknown) Chief complain t: Nausea/Vomiting/Trupti rrhea (units unknown) (unknown) (unknown) (no date) (unknown) (unknown) Chloride (98-1 07) mmol/L (units unknown) (unknown) (unknown) (no date) (unknown) (unknown) Chloride 101 (98-107) mmol/L (units unknown) (unknown) (unknown) (no date) (unknown) (unknown) Chronic abdomi nal pain (units unknown) (unknown) (unknown) (no date) (unknown) (unknown) Clinical Impression: (units unknown) (unknown) (unknown) (no date) (unknown) (unknown) Compazine 25 m g ND PRN PRN Nausea 07/06/22 07/06/22 (units unknown) (unknown) (unknown) (no date) (unknown) (unknown) Compazine suppository (units unknown) (unknown) (unknown) (no date) (unknown) (unknown) Complicating co-morbidities: Abdominal migraines, intractable vomiting, cyclic (units unknown) (unknown) (unknown) (no date) (unknown) (unknown) Consultations: (unit s unknown) (unknown) (unknown) (no date) (unknown) (unknown) Course (units unknown) (unknown) (unknown) (no date) (unknown) (unknown) Creatinine (0.52-1.04) mg/dL (units unknown) (unknown) (unknown) (no date) (unknown) (unknown) Creatinine 0.8 2 (0.52-1.04) mg/dL (units unknown) (unknown) (unknown) (no date) (unknown) (unknown) Cyclic vomitin g syndrome (units unknown) (unknown) (unknown) (no date) (unknown) (unknown) : 3 Acct:[id number] (units unknown) (unknown) (unknown) (no date) (unknown) (unknown) Data collected from: Patient (units unknown) (unknown) (unknown) (no date) (unknown) (unknown) Date of Servic e: 10/10/22 (units unknown) (unknown) (unknown) (no date) (unknown) (unknown) Daughter Angio-edema (units unknown) (unknown) (unknown) (no date) (unknown) (unknown) Departure (units unknown) (unknown) (unknown) (no date) (unknown) (unknown) Differential considered, but not limited to: Cyclic vomiting, abdominal (units unknown) (unknown) (unknown) (no date) (unknown) (unknown) Discharge Plan (unit s unknown) (unknown) (unknown) (no date) (unknown) (unknown) Discontinued Medications (units unknown) (unknown) (unknown) (no date) (unknown) (unknown) Discussion: (units unknown) (unknown) (unknown) (no date) (unknown) (unknown) Disposition: s ee below, along with detailed discharge instructions that have (units unknown) (unknown) (unknown) (no date) (unknown) (unknown) Documented By: MAXIME ( units unknown) (unknown) (unknown) (no date) (unknown) (unknown) Documented By: AQUILINO (u nits unknown) (unknown) (unknown) (no date) (unknown) (unknown) Documented By: AQUILINO(2) (units unknown) (unknown) (unknown) (no date) (unknown) (unknown) Dr martínez: Rec eived turned over. Reviewed patient's history and physical exam. (units unknown) (unknown) (unknown) (no date) (unknown) (unknown) ENT: Nose with out bleeding, purulent drainage. Throat without erythema, (units unknown) (unknown) (unknown) (no date) (unknown) (unknown) ER Physician: Mino Martínez D.O. (units unknown) (unknown) (unknown) (no date) (unknown) (unknown) EXTREMITIES: N o edema or joint tenderness. (units unknown) (unknown) (unknown) (no date) (unknown) (unknown) EYES: Pupils e qual round and reactive. Extraocular motions intact. No scleral (units unknown) (unknown) (unknown) (no date) (unknown) (unknown) Emergency Report (un its unknown) (unknown) (unknown) (no date) (unknown) (unknown) Eos # (Auto) (0-450) /uL (units unknown) (unknown) (unknown) (no date) (unknown) (unknown) Eos # (Auto) 0 (0-450) /uL (units unknown) (unknown) (unknown) (no date) (unknown) (unknown) Eos % (Auto) ( 2-4) % (units unknown) (unknown) (unknown) (no date) (unknown) (unknown) Eos % (Auto) 0 .1 L (2-4) % (units unknown) (unknown) (unknown) (no date) (unknown) (unknown) Estimated GFR > 60 (>60) mL/min (units unknown) (unknown) (unknown) (no date) (unknown) (unknown) Estimated GFR (>60) mL/min (units unknown) (unknown) (unknown) (no date) (unknown) (unknown) Exam Narrative: (uni ts unknown) (unknown) (unknown) (no date) (unknown) (unknown) Exam documente d above, pertinent findings include: obviously in pain, holding an (units unknown) (unknown) (unknown) (no date) (unknown) (unknown) Exam (units unknown) (unknown) (unknown) (no date) (unknown) (unknown) Family History (units unknown) (unknown) (unknown) (no date) (unknown) (unknown) Family history of angioedema (units unknown) (unknown) (unknown) (no date) (unknown) (unknown) Father Hypertension (units unknown) (unknown) (unknown) (no date) (unknown) (unknown) For my own independent exam. After an extended period of time in the (units unknown) (unknown) (unknown) (no date) (unknown) (unknown) GASTROINTESTIN AL: Abdomen soft,severe generalized tenderness, soft, bowel sounds (units unknown) (unknown) (unknown) (no date) (unknown) (unknown) GASTROINTESTIN AL: See HPI (units unknown) (unknown) (unknown) (no date) (unknown) (unknown) GENERAL: Denie s chills, fatigue, malaise, fever, sweats. (units unknown) (unknown) (unknown) (no date) (unknown) (unknown) GENERAL: [47] year old patient appears stated age. Well-developed patient, in (units unknown) (unknown) (unknown) (no date) (unknown) (unknown) : Denies dys uria, frequency, incontinence, hematuria, urinary retention. (units unknown) (unknown) (unknown) (no date) (unknown) (unknown) General (units unknown) (unknown) (unknown) (no date) (unknown) (unknown) Globulin (1.7- 4.1) g/dL (units unknown) (unknown) (unknown) (no date) (unknown) (unknown) Globulin 4.3 H (1.7-4.1) g/dL (units unknown) (unknown) (unknown) (no date) (unknown) (unknown) Glucose (70-10 0) mg/dL (units unknown) (unknown) (unknown) (no date) (unknown) (unknown) Glucose 172 H (70-100) mg/dL (units unknown) (unknown) (unknown) (no date) (unknown) (unknown) Glucose POC 173 (uni ts unknown) (unknown) (unknown) (no date) (unknown) (unknown) HEAD: Atraumat ic. Normocephalic. (units unknown) (unknown) (unknown) (no date) (unknown) (unknown) HEENT: Denies sinus pain, ear pain, sore throat, difficulty swallowing, (units unknown) (unknown) (unknown) (no date) (unknown) (unknown) HPI - Nausea/Vomiting/Trupti rrhea (units unknown) (unknown) (unknown) (no date) (unknown) (unknown) HPI Narrative: (unit s unknown) (unknown) (unknown) (no date) (unknown) (unknown) Haloperidol (Haloperidol 5 Mg/Ml Vial) 5 mg IV NOW ONE (units unknown) (unknown) (unknown) (no date) (unknown) (unknown) Hct (36-46) % (units unknown) (unknown) (unknown) (no date) (unknown) (unknown) Hct 41.9 (36-46) % ( units unknown) (unknown) (unknown) (no date) (unknown) (unknown) Hgb (12.0-16.0 ) g/dL (units unknown) (unknown) (unknown) (no date) (unknown) (unknown) Hgb 14.0 (12.0-16.0) g/dL (units unknown) (unknown) (unknown) (no date) (unknown) (unknown) History of Pre sent Illness (units unknown) (unknown) (unknown) (no date) (unknown) (unknown) Home Medications (un its unknown) (unknown) (unknown) (no date) (unknown) (unknown) Hx of appendectomy ( units unknown) (unknown) (unknown) (no date) (unknown) (unknown) Hx of cholecystectomy (units unknown) (unknown) (unknown) (no date) (unknown) (unknown) I do recommend that she continues to take all of her medications as directed. A (units unknown) (unknown) (unknown) (no date) (unknown) (unknown) Imaging studie s independently reviewed: (units unknown) (unknown) (unknown) (no date) (unknown) (unknown) Independently reviewed EKG as above (units unknown) (unknown) (unknown) (no date) (unknown) (unknown) Initial Vital Signs (units unknown) (unknown) (unknown) (no date) (unknown) (unknown) Initial Vital Signs: (units unknown) (unknown) (unknown) (no date) (unknown) (unknown) Instructions: Nausea and Vomiting-Adult (units unknown) (unknown) (unknown) (no date) (unknown) (unknown) [address] [address] (units unknown) (unknown) (unknown) (no date) (unknown) (unknown) Sergo Martino M D [Primary Care Provider] (units unknown) (unknown) (unknown) (no date) (unknown) (unknown) Lab Data (units unknown) (unknown) (unknown) (no date) (unknown) (unknown) Lab Results (units unknown) (unknown) (unknown) (no date) (unknown) (unknown) Lab Test resul ts independently reviewed as above. Pertinent findings: No (units unknown) (unknown) (unknown) (no date) (unknown) (unknown) Labs: (units unknown) (unknown) (unknown) (no date) (unknown) (unknown) Lactate 1.6 (0.7-2.1) mmol/L (units unknown) (unknown) (unknown) (no date) (unknown) (unknown) Lactate 5.4 H* (0.7-2.1) mmol/L (units unknown) (unknown) (unknown) (no date) (unknown) (unknown) Last Admin: 10/10/22 16:32 Dose: 40 mg (units unknown) (unknown) (unknown) (no date) (unknown) (unknown) Last Admin: 10/10/22 16:32 Dose: 5 mg (units unknown) (unknown) (unknown) (no date) (unknown) (unknown) Last Admin: 10/10/22 17:38 Dose: 1 mg (units unknown) (unknown) (unknown) (no date) (unknown) (unknown) Last Infusion: 10/10/22 17:39 Dose: 0 mls/hr (units unknown) (unknown) (unknown) (no date) (unknown) (unknown) Last Infusion: 10/10/22 19:42 Dose: 1,000 mls/hr (units unknown) (unknown) (unknown) (no date) (unknown) (unknown) Lorazepam (Lorazepam 2 Mg/Ml Inj) 1 mg IV NOW ONE (units unknown) (unknown) (unknown) (no date) (unknown) (unknown) Lymph # (Auto) (4544-4137) /uL (units unknown) (unknown) (unknown) (no date) (unknown) (unknown) Lymph # (Auto) 800 L (9340-3202) /uL (units unknown) (unknown) (unknown) (no date) (unknown) (unknown) Lymph % (Auto) (25-40) % (units unknown) (unknown) (unknown) (no date) (unknown) (unknown) Lymph % (Auto) 8.0 L (25-40) % (units unknown) (unknown) (unknown) (no date) (unknown) (unknown) MCH (26-34) PG (unit s unknown) (unknown) (unknown) (no date) (unknown) (unknown) MCH 30.7 (26-34) PG (units unknown) (unknown) (unknown) (no date) (unknown) (unknown) MCHC (30-36) % (unit s unknown) (unknown) (unknown) (no date) (unknown) (unknown) MCHC 33.5 (30-36) % (units unknown) (unknown) (unknown) (no date) (unknown) (unknown) MCV (80-100) fL (uni ts unknown) (unknown) (unknown) (no date) (unknown) (unknown) MCV 91.5 (80-1 00) fL (units unknown) (unknown) (unknown) (no date) (unknown) (unknown) MDM - Nausea/Vomiting/Trupti rrhea (units unknown) (unknown) (unknown) (no date) (unknown) (unknown) MDM Narrative (units unknown) (unknown) (unknown) (no date) (unknown) (unknown) MIPS Elements: (unit s unknown) (unknown) (unknown) (no date) (unknown) (unknown) 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 (units unknown) (unknown) (unknown) (no date) (unknown) (unknown) MUSCULOSKELETA L: denies weakness, joint pain, or bony pain (units unknown) (unknown) (unknown) (no date) (unknown) (unknown) Marijuana use, continuous (units unknown) (unknown) (unknown) (no date) (unknown) (unknown) Medical Histor y (units unknown) (unknown) (unknown) (no date) (unknown) (unknown) Medical decisi on making narrative: (units unknown) (unknown) (unknown) (no date) (unknown) (unknown) Medical record s reviewed: Multiple prior visits here (units unknown) (unknown) (unknown) (no date) (unknown) (unknown) Medication Instructions Recorded Confirmed (units unknown) (unknown) (unknown) (no date) (unknown) (unknown) Medication Instructions Recorded (units unknown) (unknown) (unknown) (no date) (unknown) (unknown) Mode of arriva l: Ambulatory (units unknown) (unknown) (unknown) (no date) (unknown) (unknown) Larue # (Auto) (0-900) /uL (units unknown) (unknown) (unknown) (no date) (unknown) (unknown) Larue # (Auto) 300 (0-900) /uL (units unknown) (unknown) (unknown) (no date) (unknown) (unknown) Larue % (Auto) (3-14) % (units unknown) (unknown) (unknown) (no date) (unknown) (unknown) Larue % (Auto) 2.9 L (3-14) % (units unknown) (unknown) (unknown) (no date) (unknown) (unknown) Mother Diabete s mellitus (units unknown) (unknown) (unknown) (no date) (unknown) (unknown) NECK: Trachea midline. Non tender (units unknown) (unknown) (unknown) (no date) (unknown) (unknown) NEURO: AOx3. (units unknown) (unknown) (unknown) (no date) (unknown) (unknown) NEUROLOGIC: De nies weakness, headache, numbness, change in speech, confusion, (units unknown) (unknown) (unknown) (no date) (unknown) (unknown) Narrative (units unknown) (unknown) (unknown) (no date) (unknown) (unknown) Narrative: (units unknown) (unknown) (unknown) (no date) (unknown) (unknown) Nausea and vomiting (units unknown) (unknown) (unknown) (no date) (unknown) (unknown) Neut # (Auto) (8395-1643) /uL (units unknown) (unknown) (unknown) (no date) (unknown) (unknown) Neut # (Auto) 8800 H (0986-2352) /uL (units unknown) (unknown) (unknown) (no date) (unknown) (unknown) Neut % (Auto) (50-75) % (units unknown) (unknown) (unknown) (no date) (unknown) (unknown) Neut % (Auto) 88.7 H (50-75) % (units unknown) (unknown) (unknown) (no date) (unknown) (unknown) New (units unknown) (unknown) (unknown) (no date) (unknown) (unknown) No Action (units unknown) (unknown) (unknown) (no date) (unknown) (unknown) Ordered: (units unknown) (unknown) (unknown) (no date) (unknown) (unknown) Orders (units unknown) (unknown) (unknown) (no date) (unknown) (unknown) Other Colon cancer ( units unknown) (unknown) (unknown) (no date) (unknown) (unknown) Oxygen Deliver y Method 10/10/22 16:02 (units unknown) (unknown) (unknown) (no date) (unknown) (unknown) PSYCHIATRIC: N o concerning psychosocial issues. (units unknown) (unknown) (unknown) (no date) (unknown) (unknown) PT STATES (units unknown) (unknown) (unknown) (no date) (unknown) (unknown) Pancreatitis (units unknown) (unknown) (unknown) (no date) (unknown) (unknown) Pantoprazole S odium (Pantoprazole 40 Mg Vial) 40 mg IV NOW ONE (units unknown) (unknown) (unknown) (no date) (unknown) (unknown) Patient Disposition: Home (units unknown) (unknown) (unknown) (no date) (unknown) (unknown) Patient History (uni ts unknown) (unknown) (unknown) (no date) (unknown) (unknown) Patient feelin g significant improvement, resting comfortably (units unknown) (unknown) (unknown) (no date) (unknown) (unknown) Patient with moderate improvement after Haldol, requesting Ativan (units unknown) (unknown) (unknown) (no date) (unknown) (unknown) Patient: Huyen Castro MR#: [id number] (units unknown) (unknown) (unknown) (no date) (unknown) (unknown) Plt Count (150 -400) X103/uL (units unknown) (unknown) (unknown) (no date) (unknown) (unknown) Plt Count 293 (150-400) X103/uL (units unknown) (unknown) (unknown) (no date) (unknown) (unknown) Point of Care Testing (units unknown) (unknown) (unknown) (no date) (unknown) (unknown) Potassium (3.4 -5.1) mmol/L (units unknown) (unknown) (unknown) (no date) (unknown) (unknown) Potassium 3.4 (3.4-5.1) mmol/L (units unknown) (unknown) (unknown) (no date) (unknown) (unknown) Prescriptions: (unit s unknown) (unknown) (unknown) (no date) (unknown) (unknown) Previous Rx's (units unknown) (unknown) (unknown) (no date) (unknown) (unknown) Pulse Oximetry 100 10/10/22 16:02 (units unknown) (unknown) (unknown) (no date) (unknown) (unknown) Pulse Oximetry 95 95 (units unknown) (unknown) (unknown) (no date) (unknown) (unknown) Pulse Oximetry 96 96 (units unknown) (unknown) (unknown) (no date) (unknown) (unknown) Pulse Oximetry 96 99 (units unknown) (unknown) (unknown) (no date) (unknown) (unknown) Pulse Oximetry 98 95 97 (units unknown) (unknown) (unknown) (no date) (unknown) (unknown) Pulse Oximetry 98 (u nits unknown) (unknown) (unknown) (no date) (unknown) (unknown) Pulse Oximetry 99 96 (units unknown) (unknown) (unknown) (no date) (unknown) (unknown) Pulse Rate 79 (units unknown) (unknown) (unknown) (no date) (unknown) (unknown) Pulse Rate 86 93 H ( units unknown) (unknown) (unknown) (no date) (unknown) (unknown) Pulse Rate 86 97 H 91 H (units unknown) (unknown) (unknown) (no date) (unknown) (unknown) Pulse Rate 86 (units unknown) (unknown) (unknown) (no date) (unknown) (unknown) Pulse Rate 90 (units unknown) (unknown) (unknown) (no date) (unknown) (unknown) Pulse Rate 91 H 10/10/22 16:02 (units unknown) (unknown) (unknown) (no date) (unknown) (unknown) Pulse Rate 94 H 98 H (units unknown) (unknown) (unknown) (no date) (unknown) (unknown) RBC (4.0-5.2) X106/uL (units unknown) (unknown) (unknown) (no date) (unknown) (unknown) RBC 4.57 (4.0- 5.2) X106/uL (units unknown) (unknown) (unknown) (no date) (unknown) (unknown) RDW (11.6-14.8) % (u nits unknown) (unknown) (unknown) (no date) (unknown) (unknown) RDW 13.4 (11.6-14.8) % (units unknown) (unknown) (unknown) (no date) (unknown) (unknown) RESPIRATORY: C lear to auscultation. Breath sounds equal bilaterally. No wheezes, (units unknown) (unknown) (unknown) (no date) (unknown) (unknown) RESPIRATORY: D enies dyspnea, cough, wheezing, hemoptysis, sputum. (units unknown) (unknown) (unknown) (no date) (unknown) (unknown) Re-evaluations: (uni ts unknown) (unknown) (unknown) (no date) (unknown) (unknown) Reevaluation #1: (un its unknown) (unknown) (unknown) (no date) (unknown) (unknown) Reevaluation #2: (un its unknown) (unknown) (unknown) (no date) (unknown) (unknown) Reevaluation(s) (uni ts unknown) (unknown) (unknown) (no date) (unknown) (unknown) Referrals: (units unknown) (unknown) (unknown) (no date) (unknown) (unknown) Related Data (units unknown) (unknown) (unknown) (no date) (unknown) (unknown) Respiratory Rate 18 (units unknown) (unknown) (unknown) (no date) (unknown) (unknown) Respiratory Ra te 24 10/10/22 16:02 (units unknown) (unknown) (unknown) (no date) (unknown) (unknown) Respiratory Rate (un its unknown) (unknown) (unknown) (no date) (unknown) (unknown) Review of Systems (u nits unknown) (unknown) (unknown) (no date) (unknown) (unknown) SKIN: Denies r tiara, skin lesions, or other (units unknown) (unknown) (unknown) (no date) (unknown) (unknown) SKIN: No rash or erythema of visible areas (units unknown) (unknown) (unknown) (no date) (unknown) (unknown) Scores Used: (units unknown) (unknown) (unknown) (no date) (unknown) (unknown) She is had no fever or chills. She complains of severe generalized crampy (units unknown) (unknown) (unknown) (no date) (unknown) (unknown) Signed By: (units unknown) (unknown) (unknown) (no date) (unknown) (unknown) Smoking Status : Current every day smoker (units unknown) (unknown) (unknown) (no date) (unknown) (unknown) Social History (units unknown) (unknown) (unknown) (no date) (unknown) (unknown) Sodium (137-14 5) mmol/L (units unknown) (unknown) (unknown) (no date) (unknown) (unknown) Sodium 143 (137-145) mmol/L (units unknown) (unknown) (unknown) (no date) (unknown) (unknown) Sodium Chlorid e (Normal Saline 0.9%) 1,000 mls @ 1,000 mls/hr IV BOLUS ONE (units unknown) (unknown) (unknown) (no date) (unknown) (unknown) Source: patient (uni ts unknown) (unknown) (unknown) (no date) (unknown) (unknown) Stand Alone Fo barb: Patient Portal/API (units unknown) (unknown) (unknown) (no date) (unknown) (unknown) Stated complai nt: vomiting (units unknown) (unknown) (unknown) (no date) (unknown) (unknown) Stop: 10/10/22 16:14 (units unknown) (unknown) (unknown) (no date) (unknown) (unknown) Stop: 10/10/22 17:12 (units unknown) (unknown) (unknown) (no date) (unknown) (unknown) Stop: 10/10/22 17:34 (units unknown) (unknown) (unknown) (no date) (unknown) (unknown) Stop: 10/10/22 19:51 (units unknown) (unknown) (unknown) (no date) (unknown) (unknown) Substance Use Type: former substance user, marijuana and methamphetamine (units unknown) (unknown) (unknown) (no date) (unknown) (unknown) Surgical Histo ry (units unknown) (unknown) (unknown) (no date) (unknown) (unknown) TAKE ND (units unknown) (unknown) (unknown) (no date) (unknown) (unknown) TO IV SITE (units unknown) (unknown) (unknown) (no date) (unknown) (unknown) Temperature 98 .7 F 10/10/22 16:02 (units unknown) (unknown) (unknown) (no date) (unknown) (unknown) Time Seen by Provider: 10/10/22 16:13 (units unknown) (unknown) (unknown) (no date) (unknown) (unknown) Total Bilirubi n (0.2-1.3) mg/dL (units unknown) (unknown) (unknown) (no date) (unknown) (unknown) Total Bilirubi n 1.0 (0.2-1.3) mg/dL (units unknown) (unknown) (unknown) (no date) (unknown) (unknown) Total Protein (6.3-8.2) g/dL (units unknown) (unknown) (unknown) (no date) (unknown) (unknown) Total Protein 9.6 H (6.3-8.2) g/dL (units unknown) (unknown) (unknown) (no date) (unknown) (unknown) Treatments: (units unknown) (unknown) (unknown) (no date) (unknown) (unknown) Vital Signs - 8 hr ( units unknown) (unknown) (unknown) (no date) (unknown) (unknown) Vital Signs (units unknown) (unknown) (unknown) (no date) (unknown) (unknown) Vital signs: (units unknown) (unknown) (unknown) (no date) (unknown) (unknown) WBC (4.5-11.0) X103/uL (units unknown) (unknown) (unknown) (no date) (unknown) (unknown) WBC 9.9 (4.5-1 1.0) X103/uL (units unknown) (unknown) (unknown) (no date) (unknown) (unknown) [Embedded Imag e Not Available] (units unknown) (unknown) (unknown) (no date) (unknown) (unknown) [METOCLOPRAMIDE] (un its unknown) (unknown) (unknown) (no date) (unknown) (unknown) abdominal pain that comes in waves without warning. She is had no runny nose, (units unknown) (unknown) (unknown) (no date) (unknown) (unknown) additional outpatient follow up (units unknown) (unknown) (unknown) (no date) (unknown) (unknown) alcohol intake frequency: 3 or more drinks per day (units unknown) (unknown) (unknown) (no date) (unknown) (unknown) alcohol intake : current (units unknown) (unknown) (unknown) (no date) (unknown) (unknown) and agreement. (unit s unknown) (unknown) (unknown) (no date) (unknown) (unknown) any change in her bowel habits. (units unknown) (unknown) (unknown) (no date) (unknown) (unknown) been reviewed with patient as well as indications for ED re-evaluation and (units unknown) (unknown) (unknown) (no date) (unknown) (unknown) bupropion HCl 100 mg tablet sustained-release 12 hr (units unknown) (unknown) (unknown) (no date) (unknown) (unknown) bupropion HCl 100 mg tablet,12 hr 100 mg PO DAILY #90 ea 04/14/22 (units unknown) (unknown) (unknown) (no date) (unknown) (unknown) complaint of s evere abdominal pain and multiple episodes of nausea and vomiting (units unknown) (unknown) (unknown) (no date) (unknown) (unknown) consultation. Patient and family at bedside stated that they felt comfortable (units unknown) (unknown) (unknown) (no date) (unknown) (unknown) department for new symptoms. (units unknown) (unknown) (unknown) (no date) (unknown) (unknown) discharge sherrell ent home with return precautions. They expressed understanding (units unknown) (unknown) (unknown) (no date) (unknown) (unknown) dizziness. (units unknown) (unknown) (unknown) (no date) (unknown) (unknown) emergency department patient was able to tolerate oral intake and had no further (units unknown) (unknown) (unknown) (no date) (unknown) (unknown) emesis bag, pa cing, heart rate regular, lungs clear, abdomen tender but soft (units unknown) (unknown) (unknown) (no date) (unknown) (unknown) going home. I will refill her prescription for rectal Phenergan. Will (units unknown) (unknown) (unknown) (no date) (unknown) (unknown) household memb ers: spouse (units unknown) (unknown) (unknown) (no date) (unknown) (unknown) icterus. No injection or drainage. (units unknown) (unknown) (unknown) (no date) (unknown) (unknown) latex [LATEX] Allergy Unknown Verified 04/13/22 09:42 (units unknown) (unknown) (unknown) (no date) (unknown) (unknown) metoclopramide AdvReac Unknown DYSTONIA Verified 04/13/22 09:42 (units unknown) (unknown) (unknown) (no date) (unknown) (unknown) migraine, nilam l obstruction, electrolyte abnormality versus other (units unknown) (unknown) (unknown) (no date) (unknown) (unknown) obvious distre ss. Pacing (units unknown) (unknown) (unknown) (no date) (unknown) (unknown) over the cours e of the day. She denies any change in her medications or diet. (units unknown) (unknown) (unknown) (no date) (unknown) (unknown) potassium chlo ride 20 mEq 40 meq PO DAILY #90 tabs 04/14/22 (units unknown) (unknown) (unknown) (no date) (unknown) (unknown) potassium chlo ride 20 mEq tablet extended release (units unknown) (unknown) (unknown) (no date) (unknown) (unknown) prescription f or Phenergan rectal suppositories was sent to [facility] per your (units unknown) (unknown) (unknown) (no date) (unknown) (unknown) present, nondistended. (units unknown) (unknown) (unknown) (no date) (unknown) (unknown) prior electrol yte abnormalities presents with her significant other and a chief (units unknown) (unknown) (unknown) (no date) (unknown) (unknown) promethazine 2 5 mg rectal 25 mg ND Q4-6H PRN nausea and 10/10/22 (units unknown) (unknown) (unknown) (no date) (unknown) (unknown) promethazine 2 5 mg suppository (units unknown) (unknown) (unknown) (no date) (unknown) (unknown) promethazine [PROMETHAZINE] Allergy Mild ERYTHEMA Verified 04/13/22 09:42 (units unknown) (unknown) (unknown) (no date) (unknown) (unknown) rales, or rhonchi. ( units unknown) (unknown) (unknown) (no date) (unknown) (unknown) request. [facility] [facility] her primary doctor for follow-up. Return to the emergency (units unknown) (unknown) (unknown) (no date) (unknown) (unknown) seizures, incoordination. (units unknown) (unknown) (unknown) (no date) (unknown) (unknown) significant leukocytosis though there is a small relative left shift (units unknown) (unknown) (unknown) (no date) (unknown) (unknown) sore throat or cough. She denies chest pain or shortness of breath. She denies (units unknown) (unknown) (unknown) (no date) (unknown) (unknown) spironolactone 25 mg tablet 25 mg PO DAILY #90 tabs 04/14/22 (units unknown) (unknown) (unknown) (no date) (unknown) (unknown) spironolactone 25 mg tablet (units unknown) (unknown) (unknown) (no date) (unknown) (unknown) suppository vomiting #12 ea (units unknown) (unknown) (unknown) (no date) (unknown) (unknown) sustained-release (u nits unknown) (unknown) (unknown) (no date) (unknown) (unknown) tablet,extende d release (units unknown) (unknown) (unknown) (no date) (unknown) (unknown) tobacco type: vaping (units unknown) (unknown) (unknown) (no date) (unknown) (unknown) tonsillar hypertrophy or exudate. Airway patent. (units unknown) (unknown) (unknown) (no date) (unknown) (unknown) vomiting (units unknown) (unknown) (unknown) (no date) (unknown) (unknown) vomiting. Ther e is no indication for antibiotics. No indication for surgical (units unknown) (unknown) Result panel 805 (unknown) (no date) (unknown) (unknown) (no value) (units unknown) (unknown) (unknown) (no date) (unknown) (unknown) <Electronicall y signed by Tremayne Jovel D.O.> (units unknown) (unknown) (unknown) (no date) (unknown) (unknown) <Electronicall y signed by Mino Martínez D.O.> (units unknown) (unknown) (unknown) (no date) (unknown) (unknown) <Tremayne Jovel DO - Last Filed: 10/11/22 06:44> (units unknown) (unknown) (unknown) (no date) (unknown) (unknown) <Mino dangelo DO - Last Filed: 10/11/22 01:51> (units unknown) (unknown) (unknown) (no date) (unknown) (unknown) 10/10/2210/1010/10/22 Range/Units (units unknown) (unknown) (unknown) (no date) (unknown) (unknown) 10/10/22 16:25 (unit s unknown) (unknown) (unknown) (no date) (unknown) (unknown) 10/10/22 Range/Units (units unknown) (unknown) (unknown) (no date) (unknown) (unknown) 10/10/22 (units unknown) (unknown) (unknown) (no date) (unknown) (unknown) 10/11/22 0151 (units unknown) (unknown) (unknown) (no date) (unknown) (unknown) 10/11/22 0644 (units unknown) (unknown) (unknown) (no date) (unknown) (unknown) 100 mg PO JEAN Y Qty: 90 0RF (units unknown) (unknown) (unknown) (no date) (unknown) (unknown) 12 point revie w of systems is negative except for those stated above (units unknown) (unknown) (unknown) (no date) (unknown) (unknown) 16:25 16:25 16:25 (u nits unknown) (unknown) (unknown) (no date) (unknown) (unknown) 17:58 10/10/22 (unit s unknown) (unknown) (unknown) (no date) (unknown) (unknown) 18:00 10/10/22 (unit s unknown) (unknown) (unknown) (no date) (unknown) (unknown) 18:00 (units unknown) (unknown) (unknown) (no date) (unknown) (unknown) 18:30 10/10/22 (unit s unknown) (unknown) (unknown) (no date) (unknown) (unknown) 18:30 (units unknown) (unknown) (unknown) (no date) (unknown) (unknown) 18:49 (units unknown) (unknown) (unknown) (no date) (unknown) (unknown) 19:00 10/10/22 (unit s unknown) (unknown) (unknown) (no date) (unknown) (unknown) 19:30 (units unknown) (unknown) (unknown) (no date) (unknown) (unknown) 20:00 10/10/22 (unit s unknown) (unknown) (unknown) (no date) (unknown) (unknown) 20:30 10/10/22 (unit s unknown) (unknown) (unknown) (no date) (unknown) (unknown) 20:59 10/10/22 (unit s unknown) (unknown) (unknown) (no date) (unknown) (unknown) 20:59 (units unknown) (unknown) (unknown) (no date) (unknown) (unknown) 21:00 10/10/22 (unit s unknown) (unknown) (unknown) (no date) (unknown) (unknown) 21:00 (units unknown) (unknown) (unknown) (no date) (unknown) (unknown) 21:11 10/10/22 (unit s unknown) (unknown) (unknown) (no date) (unknown) (unknown) 21:30 10/10/22 (unit s unknown) (unknown) (unknown) (no date) (unknown) (unknown) 21:30 (units unknown) (unknown) (unknown) (no date) (unknown) (unknown) 22:00 10/10/22 (unit s unknown) (unknown) (unknown) (no date) (unknown) (unknown) 22:00 (units unknown) (unknown) (unknown) (no date) (unknown) (unknown) 25 mg PO DAILY Qty: 90 0RF (units unknown) (unknown) (unknown) (no date) (unknown) (unknown) 25 mg ND PRN P RN (Reason: Nausea) (units unknown) (unknown) (unknown) (no date) (unknown) (unknown) 25 mg ND Q4-6H PRN (Reason: nausea and vomiting) Qty: 12 0RF (units unknown) (unknown) (unknown) (no date) (unknown) (unknown) [id number] (units unknown) (unknown) (unknown) (no date) (unknown) (unknown) 40 meq PO JEAN Y Qty: 90 0RF (units unknown) (unknown) (unknown) (no date) (unknown) (unknown) 47-year-old fe male with history of cyclic vomiting, abdominal migraines and (units unknown) (unknown) (unknown) (no date) (unknown) (unknown) ABLE TO (units unknown) (unknown) (unknown) (no date) (unknown) (unknown) ALT (<35) IU/L (unit s unknown) (unknown) (unknown) (no date) (unknown) (unknown) ALT 38 H (<35) IU/L (units unknown) (unknown) (unknown) (no date) (unknown) (unknown) AST (14-36) IU/L (un its unknown) (unknown) (unknown) (no date) (unknown) (unknown) AST 34 (14-36) IU/L (units unknown) (unknown) (unknown) (no date) (unknown) (unknown) Abscess (units unknown) (unknown) (unknown) (no date) (unknown) (unknown) Activity Restrictions/Additi onal Instructions: (units unknown) (unknown) (unknown) (no date) (unknown) (unknown) Admin: 3 16:32 Dose: 1,000 mls/hr (units unknown) (unknown) (unknown) (no date) (unknown) (unknown) Admin: 3 19:34 Dose: 1,000 mls/hr (units unknown) (unknown) (unknown) (no date) (unknown) (unknown) Age/Sex: 47 / F (uni ts unknown) (unknown) (unknown) (no date) (unknown) (unknown) Albumin (3.5-5 .0) g/dL (units unknown) (unknown) (unknown) (no date) (unknown) (unknown) Albumin 5.3 H (3.5-5.0) g/dL (units unknown) (unknown) (unknown) (no date) (unknown) (unknown) Albumin/Globul in Ratio (1.0-2.8) (units unknown) (unknown) (unknown) (no date) (unknown) (unknown) Albumin/Globul in Ratio 1.2 (1.0-2.8) (units unknown) (unknown) (unknown) (no date) (unknown) (unknown) Alcohol type: wine ( units unknown) (unknown) (unknown) (no date) (unknown) (unknown) Alkaline Phosphatase (38-126) U/L (units unknown) (unknown) (unknown) (no date) (unknown) (unknown) Alkaline Phosphatase 103 (38-126) U/L (units unknown) (unknown) (unknown) (no date) (unknown) (unknown) Allergies (units unknown) (unknown) (unknown) (no date) (unknown) (unknown) Allergy/AdvRea c Type Severity Reaction Status Date / Time (units unknown) (unknown) (unknown) (no date) (unknown) (unknown) BACK: Nontende r without deformity or crepitance. No flank tenderness. (units unknown) (unknown) (unknown) (no date) (unknown) (unknown) BUN (7-17) mg/dL (un its unknown) (unknown) (unknown) (no date) (unknown) (unknown) BUN 15 (7-17) mg/dL (units unknown) (unknown) (unknown) (no date) (unknown) (unknown) BUN/Creatinine Ratio (6-22) (units unknown) (unknown) (unknown) (no date) (unknown) (unknown) BUN/Creatinine Ratio 18.3 (6-22) (units unknown) (unknown) (unknown) (no date) (unknown) (unknown) Baso # (Auto) (0-100) /uL (units unknown) (unknown) (unknown) (no date) (unknown) (unknown) Baso # (Auto) 0 (0-100) /uL (units unknown) (unknown) (unknown) (no date) (unknown) (unknown) Baso % (Auto) (0-2) % (units unknown) (unknown) (unknown) (no date) (unknown) (unknown) Baso % (Auto) 0.3 (0-2) % (units unknown) (unknown) (unknown) (no date) (unknown) (unknown) Blood Pressure 102/60 (units unknown) (unknown) (unknown) (no date) (unknown) (unknown) Blood Pressure 108/60 (units unknown) (unknown) (unknown) (no date) (unknown) (unknown) Blood Pressure 118/64 110/62 (units unknown) (unknown) (unknown) (no date) (unknown) (unknown) Blood Pressure 118/65 (units unknown) (unknown) (unknown) (no date) (unknown) (unknown) Blood Pressure 121/78 127/74 (units unknown) (unknown) (unknown) (no date) (unknown) (unknown) Blood Pressure 144/87 H 174/89 H (units unknown) (unknown) (unknown) (no date) (unknown) (unknown) Blood Pressure 156/104 H 10/10/22 16:02 (units unknown) (unknown) (unknown) (no date) (unknown) (unknown) Blood Pressure (unit s unknown) (unknown) (unknown) (no date) (unknown) (unknown) CARDIOVASCULAR : Denies chest pain, palpitations, orthopnea, edema, (units unknown) (unknown) (unknown) (no date) (unknown) (unknown) CARDIOVASCULAR : Regular rate and rhythm without murmurs, gallops, or rubs. (units unknown) (unknown) (unknown) (no date) (unknown) (unknown) CC: 47-year-ol d female with history of abdominal pain, vomiting (units unknown) (unknown) (unknown) (no date) (unknown) (unknown) Calcium (8.4-1 0.2) mg/dL (units unknown) (unknown) (unknown) (no date) (unknown) (unknown) Calcium 10.0 (8.4-10.2) mg/dL (units unknown) (unknown) (unknown) (no date) (unknown) (unknown) Carbon Dioxide (22-32) mmol/L (units unknown) (unknown) (unknown) (no date) (unknown) (unknown) Carbon Dioxide 21 L (22-32) mmol/L (units unknown) (unknown) (unknown) (no date) (unknown) (unknown) Chief complain t: Nausea/Vomiting/Trupti rrhea (units unknown) (unknown) (unknown) (no date) (unknown) (unknown) Chloride (98-1 07) mmol/L (units unknown) (unknown) (unknown) (no date) (unknown) (unknown) Chloride 101 (98-107) mmol/L (units unknown) (unknown) (unknown) (no date) (unknown) (unknown) Chronic abdomi nal pain (units unknown) (unknown) (unknown) (no date) (unknown) (unknown) Clinical Impression: (units unknown) (unknown) (unknown) (no date) (unknown) (unknown) Compazine 25 m g ND PRN PRN Nausea 07/06/22 07/06/22 (units unknown) (unknown) (unknown) (no date) (unknown) (unknown) Compazine suppository (units unknown) (unknown) (unknown) (no date) (unknown) (unknown) Complicating co-morbidities: Abdominal migraines, intractable vomiting, cyclic (units unknown) (unknown) (unknown) (no date) (unknown) (unknown) Consultations: (unit s unknown) (unknown) (unknown) (no date) (unknown) (unknown) Course (units unknown) (unknown) (unknown) (no date) (unknown) (unknown) Creatinine (0.52-1.04) mg/dL (units unknown) (unknown) (unknown) (no date) (unknown) (unknown) Creatinine 0.8 2 (0.52-1.04) mg/dL (units unknown) (unknown) (unknown) (no date) (unknown) (unknown) Cyclic vomitin g syndrome (units unknown) (unknown) (unknown) (no date) (unknown) (unknown) : 3 Acct:[id number] (units unknown) (unknown) (unknown) (no date) (unknown) (unknown) Data collected from: Patient (units unknown) (unknown) (unknown) (no date) (unknown) (unknown) Date of Servic e: 10/10/22 (units unknown) (unknown) (unknown) (no date) (unknown) (unknown) Daughter Angio-edema (units unknown) (unknown) (unknown) (no date) (unknown) (unknown) Departure (units unknown) (unknown) (unknown) (no date) (unknown) (unknown) Differential considered, but not limited to: Cyclic vomiting, abdominal (units unknown) (unknown) (unknown) (no date) (unknown) (unknown) Discharge Plan (unit s unknown) (unknown) (unknown) (no date) (unknown) (unknown) Discontinued Medications (units unknown) (unknown) (unknown) (no date) (unknown) (unknown) Discussion: (units unknown) (unknown) (unknown) (no date) (unknown) (unknown) Disposition: s ee below, along with detailed discharge instructions that have (units unknown) (unknown) (unknown) (no date) (unknown) (unknown) Documented By: DKJackson ( units unknown) (unknown) (unknown) (no date) (unknown) (unknown) Documented By: AQUILINO (u nits unknown) (unknown) (unknown) (no date) (unknown) (unknown) Documented By: AQUILINO(2) (units unknown) (unknown) (unknown) (no date) (unknown) (unknown) Dr martínez: Rec eived turned over. Reviewed patient's history and physical exam. (units unknown) (unknown) (unknown) (no date) (unknown) (unknown) ENT: Nose with out bleeding, purulent drainage. Throat without erythema, (units unknown) (unknown) (unknown) (no date) (unknown) (unknown) ER Physician: Mino Martínez D.O. (units unknown) (unknown) (unknown) (no date) (unknown) (unknown) EXTREMITIES: N o edema or joint tenderness. (units unknown) (unknown) (unknown) (no date) (unknown) (unknown) EYES: Pupils e qual round and reactive. Extraocular motions intact. No scleral (units unknown) (unknown) (unknown) (no date) (unknown) (unknown) Emergency Report (un its unknown) (unknown) (unknown) (no date) (unknown) (unknown) Eos # (Auto) (0-450) /uL (units unknown) (unknown) (unknown) (no date) (unknown) (unknown) Eos # (Auto) 0 (0-450) /uL (units unknown) (unknown) (unknown) (no date) (unknown) (unknown) Eos % (Auto) ( 2-4) % (units unknown) (unknown) (unknown) (no date) (unknown) (unknown) Eos % (Auto) 0 .1 L (2-4) % (units unknown) (unknown) (unknown) (no date) (unknown) (unknown) Estimated GFR > 60 (>60) mL/min (units unknown) (unknown) (unknown) (no date) (unknown) (unknown) Estimated GFR (>60) mL/min (units unknown) (unknown) (unknown) (no date) (unknown) (unknown) Exam Narrative: (uni ts unknown) (unknown) (unknown) (no date) (unknown) (unknown) Exam documente d above, pertinent findings include: obviously in pain, holding an (units unknown) (unknown) (unknown) (no date) (unknown) (unknown) Exam (units unknown) (unknown) (unknown) (no date) (unknown) (unknown) Family History (units unknown) (unknown) (unknown) (no date) (unknown) (unknown) Family history of angioedema (units unknown) (unknown) (unknown) (no date) (unknown) (unknown) Father Hypertension (units unknown) (unknown) (unknown) (no date) (unknown) (unknown) For my own independent exam. After an extended period of time in the (units unknown) (unknown) (unknown) (no date) (unknown) (unknown) GASTROINTESTIN AL: Abdomen soft,severe generalized tenderness, soft, bowel sounds (units unknown) (unknown) (unknown) (no date) (unknown) (unknown) GASTROINTESTIN AL: See HPI (units unknown) (unknown) (unknown) (no date) (unknown) (unknown) GENERAL: Denie s chills, fatigue, malaise, fever, sweats. (units unknown) (unknown) (unknown) (no date) (unknown) (unknown) GENERAL: [47] year old patient appears stated age. Well-developed patient, in (units unknown) (unknown) (unknown) (no date) (unknown) (unknown) : Denies dys uria, frequency, incontinence, hematuria, urinary retention. (units unknown) (unknown) (unknown) (no date) (unknown) (unknown) General (units unknown) (unknown) (unknown) (no date) (unknown) (unknown) Globulin (1.7- 4.1) g/dL (units unknown) (unknown) (unknown) (no date) (unknown) (unknown) Globulin 4.3 H (1.7-4.1) g/dL (units unknown) (unknown) (unknown) (no date) (unknown) (unknown) Glucose (70-10 0) mg/dL (units unknown) (unknown) (unknown) (no date) (unknown) (unknown) Glucose 172 H (70-100) mg/dL (units unknown) (unknown) (unknown) (no date) (unknown) (unknown) Glucose POC 173 (uni ts unknown) (unknown) (unknown) (no date) (unknown) (unknown) HEAD: Atraumat ic. Normocephalic. (units unknown) (unknown) (unknown) (no date) (unknown) (unknown) HEENT: Denies sinus pain, ear pain, sore throat, difficulty swallowing, (units unknown) (unknown) (unknown) (no date) (unknown) (unknown) HPI - Nausea/Vomiting/Trupti rrhea (units unknown) (unknown) (unknown) (no date) (unknown) (unknown) HPI Narrative: (unit s unknown) (unknown) (unknown) (no date) (unknown) (unknown) Haloperidol (Haloperidol 5 Mg/Ml Vial) 5 mg IV NOW ONE (units unknown) (unknown) (unknown) (no date) (unknown) (unknown) Hct (36-46) % (units unknown) (unknown) (unknown) (no date) (unknown) (unknown) Hct 41.9 (36-46) % ( units unknown) (unknown) (unknown) (no date) (unknown) (unknown) Hgb (12.0-16.0 ) g/dL (units unknown) (unknown) (unknown) (no date) (unknown) (unknown) Hgb 14.0 (12.0-16.0) g/dL (units unknown) (unknown) (unknown) (no date) (unknown) (unknown) History of Pre sent Illness (units unknown) (unknown) (unknown) (no date) (unknown) (unknown) Home Medications (un its unknown) (unknown) (unknown) (no date) (unknown) (unknown) Hx of appendectomy ( units unknown) (unknown) (unknown) (no date) (unknown) (unknown) Hx of cholecystectomy (units unknown) (unknown) (unknown) (no date) (unknown) (unknown) I do recommend that she continues to take all of her medications as directed. A (units unknown) (unknown) (unknown) (no date) (unknown) (unknown) Imaging marly s independently reviewed: (units unknown) (unknown) (unknown) (no date) (unknown) (unknown) Imaging marly s independently reviewed:No significant abnormality (units unknown) (unknown) (unknown) (no date) (unknown) (unknown) Independently reviewed EKG as above (units unknown) (unknown) (unknown) (no date) (unknown) (unknown) Initial Vital Signs (units unknown) (unknown) (unknown) (no date) (unknown) (unknown) Initial Vital Signs: (units unknown) (unknown) (unknown) (no date) (unknown) (unknown) Instructions: Nausea and Vomiting-Adult (units unknown) (unknown) (unknown) (no date) (unknown) (unknown) [address] [address] (units unknown) (unknown) (unknown) (no date) (unknown) (unknown) Sergo Martino M D [Primary Care Provider] (units unknown) (unknown) (unknown) (no date) (unknown) (unknown) Lab Data (units unknown) (unknown) (unknown) (no date) (unknown) (unknown) Lab Results (units unknown) (unknown) (unknown) (no date) (unknown) (unknown) Lab Test resul ts independently reviewed as above. Pertinent findings: No (units unknown) (unknown) (unknown) (no date) (unknown) (unknown) Labs: (units unknown) (unknown) (unknown) (no date) (unknown) (unknown) Lactate 1.6 (0.7-2.1) mmol/L (units unknown) (unknown) (unknown) (no date) (unknown) (unknown) Lactate 5.4 H* (0.7-2.1) mmol/L (units unknown) (unknown) (unknown) (no date) (unknown) (unknown) Last Admin: 10/10/22 16:32 Dose: 40 mg (units unknown) (unknown) (unknown) (no date) (unknown) (unknown) Last Admin: 10/10/22 16:32 Dose: 5 mg (units unknown) (unknown) (unknown) (no date) (unknown) (unknown) Last Admin: 10/10/22 17:38 Dose: 1 mg (units unknown) (unknown) (unknown) (no date) (unknown) (unknown) Last Infusion: 10/10/22 17:39 Dose: 0 mls/hr (units unknown) (unknown) (unknown) (no date) (unknown) (unknown) Last Infusion: 10/10/22 19:42 Dose: 1,000 mls/hr (units unknown) (unknown) (unknown) (no date) (unknown) (unknown) Lorazepam (Lorazepam 2 Mg/Ml Inj) 1 mg IV NOW ONE (units unknown) (unknown) (unknown) (no date) (unknown) (unknown) Lymph # (Auto) (5786-2603) /uL (units unknown) (unknown) (unknown) (no date) (unknown) (unknown) Lymph # (Auto) 800 L (7757-4624) /uL (units unknown) (unknown) (unknown) (no date) (unknown) (unknown) Lymph % (Auto) (25-40) % (units unknown) (unknown) (unknown) (no date) (unknown) (unknown) Lymph % (Auto) 8.0 L (25-40) % (units unknown) (unknown) (unknown) (no date) (unknown) (unknown) MCH (26-34) PG (unit s unknown) (unknown) (unknown) (no date) (unknown) (unknown) MCH 30.7 (26-34) PG (units unknown) (unknown) (unknown) (no date) (unknown) (unknown) MCHC (30-36) % (unit s unknown) (unknown) (unknown) (no date) (unknown) (unknown) MCHC 33.5 (30-36) % (units unknown) (unknown) (unknown) (no date) (unknown) (unknown) MCV (80-100) fL (uni ts unknown) (unknown) (unknown) (no date) (unknown) (unknown) MCV 91.5 (80-1 00) fL (units unknown) (unknown) (unknown) (no date) (unknown) (unknown) MDM - Nausea/Vomiting/Trupti rrhea (units unknown) (unknown) (unknown) (no date) (unknown) (unknown) MDM Narrative (units unknown) (unknown) (unknown) (no date) (unknown) (unknown) MIPS Elements: (unit s unknown) (unknown) (unknown) (no date) (unknown) (unknown) 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 (units unknown) (unknown) (unknown) (no date) (unknown) (unknown) MUS[place] L: denies weakness, joint pain, or bony pain (units unknown) (unknown) (unknown) (no date) (unknown) (unknown) Marijuana use, continuous (units unknown) (unknown) (unknown) (no date) (unknown) (unknown) Medical Histor y (units unknown) (unknown) (unknown) (no date) (unknown) (unknown) Medical decisi on making narrative: (units unknown) (unknown) (unknown) (no date) (unknown) (unknown) Medical record s reviewed: Multiple prior visits here (units unknown) (unknown) (unknown) (no date) (unknown) (unknown) Medication Instructions Recorded Confirmed (units unknown) (unknown) (unknown) (no date) (unknown) (unknown) Medication Instructions Recorded (units unknown) (unknown) (unknown) (no date) (unknown) (unknown) Mode of arriva l: Ambulatory (units unknown) (unknown) (unknown) (no date) (unknown) (unknown) Larue # (Auto) (0-900) /uL (units unknown) (unknown) (unknown) (no date) (unknown) (unknown) Larue # (Auto) 300 (0-900) /uL (units unknown) (unknown) (unknown) (no date) (unknown) (unknown) Larue % (Auto) (3-14) % (units unknown) (unknown) (unknown) (no date) (unknown) (unknown) Larue % (Auto) 2.9 L (3-14) % (units unknown) (unknown) (unknown) (no date) (unknown) (unknown) Mother Diabete s mellitus (units unknown) (unknown) (unknown) (no date) (unknown) (unknown) NECK: Trachea midline. Non tender (units unknown) (unknown) (unknown) (no date) (unknown) (unknown) NEURO: AOx3. (units unknown) (unknown) (unknown) (no date) (unknown) (unknown) NEUROLOGIC: De nies weakness, headache, numbness, change in speech, confusion, (units unknown) (unknown) (unknown) (no date) (unknown) (unknown) Narrative (units unknown) (unknown) (unknown) (no date) (unknown) (unknown) Narrative: (units unknown) (unknown) (unknown) (no date) (unknown) (unknown) Nausea and vomiting (units unknown) (unknown) (unknown) (no date) (unknown) (unknown) Neut # (Auto) (0688-2617) /uL (units unknown) (unknown) (unknown) (no date) (unknown) (unknown) Neut # (Auto) 8800 H (8801-1623) /uL (units unknown) (unknown) (unknown) (no date) (unknown) (unknown) Neut % (Auto) (50-75) % (units unknown) (unknown) (unknown) (no date) (unknown) (unknown) Neut % (Auto) 88.7 H (50-75) % (units unknown) (unknown) (unknown) (no date) (unknown) (unknown) New (units unknown) (unknown) (unknown) (no date) (unknown) (unknown) No Action (units unknown) (unknown) (unknown) (no date) (unknown) (unknown) Ordered: (units unknown) (unknown) (unknown) (no date) (unknown) (unknown) Orders (units unknown) (unknown) (unknown) (no date) (unknown) (unknown) Other Colon cancer ( units unknown) (unknown) (unknown) (no date) (unknown) (unknown) Oxygen Deliver y Method 10/10/22 16:02 (units unknown) (unknown) (unknown) (no date) (unknown) (unknown) PSYCHIATRIC: N o concerning psychosocial issues. (units unknown) (unknown) (unknown) (no date) (unknown) (unknown) PT STATES (units unknown) (unknown) (unknown) (no date) (unknown) (unknown) Pancreatitis (units unknown) (unknown) (unknown) (no date) (unknown) (unknown) Pantoprazole S odium (Pantoprazole 40 Mg Vial) 40 mg IV NOW ONE (units unknown) (unknown) (unknown) (no date) (unknown) (unknown) Patient Disposition: Home (units unknown) (unknown) (unknown) (no date) (unknown) (unknown) Patient History (uni ts unknown) (unknown) (unknown) (no date) (unknown) (unknown) Patient feelin g significant improvement, resting comfortably (units unknown) (unknown) (unknown) (no date) (unknown) (unknown) Patient with moderate improvement after Haldol, requesting Ativan (units unknown) (unknown) (unknown) (no date) (unknown) (unknown) Patient: Huyen Castro MR#: [id number] (units unknown) (unknown) (unknown) (no date) (unknown) (unknown) Plt Count (150 -400) X103/uL (units unknown) (unknown) (unknown) (no date) (unknown) (unknown) Plt Count 293 (150-400) X103/uL (units unknown) (unknown) (unknown) (no date) (unknown) (unknown) Point of Care Testing (units unknown) (unknown) (unknown) (no date) (unknown) (unknown) Potassium (3.4 -5.1) mmol/L (units unknown) (unknown) (unknown) (no date) (unknown) (unknown) Potassium 3.4 (3.4-5.1) mmol/L (units unknown) (unknown) (unknown) (no date) (unknown) (unknown) Prescriptions: (unit s unknown) (unknown) (unknown) (no date) (unknown) (unknown) Previous Rx's (units unknown) (unknown) (unknown) (no date) (unknown) (unknown) Pulse Oximetry 100 10/10/22 16:02 (units unknown) (unknown) (unknown) (no date) (unknown) (unknown) Pulse Oximetry 95 95 (units unknown) (unknown) (unknown) (no date) (unknown) (unknown) Pulse Oximetry 96 96 (units unknown) (unknown) (unknown) (no date) (unknown) (unknown) Pulse Oximetry 96 99 (units unknown) (unknown) (unknown) (no date) (unknown) (unknown) Pulse Oximetry 98 95 97 (units unknown) (unknown) (unknown) (no date) (unknown) (unknown) Pulse Oximetry 98 (u nits unknown) (unknown) (unknown) (no date) (unknown) (unknown) Pulse Oximetry 99 96 (units unknown) (unknown) (unknown) (no date) (unknown) (unknown) Pulse Rate 79 (units unknown) (unknown) (unknown) (no date) (unknown) (unknown) Pulse Rate 86 93 H ( units unknown) (unknown) (unknown) (no date) (unknown) (unknown) Pulse Rate 86 97 H 91 H (units unknown) (unknown) (unknown) (no date) (unknown) (unknown) Pulse Rate 86 (units unknown) (unknown) (unknown) (no date) (unknown) (unknown) Pulse Rate 90 (units unknown) (unknown) (unknown) (no date) (unknown) (unknown) Pulse Rate 91 H 10/10/22 16:02 (units unknown) (unknown) (unknown) (no date) (unknown) (unknown) Pulse Rate 94 H 98 H (units unknown) (unknown) (unknown) (no date) (unknown) (unknown) RBC (4.0-5.2) X106/uL (units unknown) (unknown) (unknown) (no date) (unknown) (unknown) RBC 4.57 (4.0- 5.2) X106/uL (units unknown) (unknown) (unknown) (no date) (unknown) (unknown) RDW (11.6-14.8) % (u nits unknown) (unknown) (unknown) (no date) (unknown) (unknown) RDW 13.4 (11.6-14.8) % (units unknown) (unknown) (unknown) (no date) (unknown) (unknown) RESPIRATORY: C lear to auscultation. Breath sounds equal bilaterally. No wheezes, (units unknown) (unknown) (unknown) (no date) (unknown) (unknown) RESPIRATORY: D enies dyspnea, cough, wheezing, hemoptysis, sputum. (units unknown) (unknown) (unknown) (no date) (unknown) (unknown) Re-evaluations: (uni ts unknown) (unknown) (unknown) (no date) (unknown) (unknown) Reevaluation #1: (un its unknown) (unknown) (unknown) (no date) (unknown) (unknown) Reevaluation #2: (un its unknown) (unknown) (unknown) (no date) (unknown) (unknown) Reevaluation(s) (uni ts unknown) (unknown) (unknown) (no date) (unknown) (unknown) Referrals: (units unknown) (unknown) (unknown) (no date) (unknown) (unknown) Related Data (units unknown) (unknown) (unknown) (no date) (unknown) (unknown) Respiratory Rate 18 (units unknown) (unknown) (unknown) (no date) (unknown) (unknown) Respiratory Ra te 24 10/10/22 16:02 (units unknown) (unknown) (unknown) (no date) (unknown) (unknown) Respiratory Rate (un its unknown) (unknown) (unknown) (no date) (unknown) (unknown) Review of Systems (u nits unknown) (unknown) (unknown) (no date) (unknown) (unknown) SKIN: Denies r tiara, skin lesions, or other (units unknown) (unknown) (unknown) (no date) (unknown) (unknown) SKIN: No rash or erythema of visible areas (units unknown) (unknown) (unknown) (no date) (unknown) (unknown) Scores Used: (units unknown) (unknown) (unknown) (no date) (unknown) (unknown) She is had no fever or chills. She complains of severe generalized crampy (units unknown) (unknown) (unknown) (no date) (unknown) (unknown) Signed By: (units unknown) (unknown) (unknown) (no date) (unknown) (unknown) Smoking Status : Current every day smoker (units unknown) (unknown) (unknown) (no date) (unknown) (unknown) Social History (units unknown) (unknown) (unknown) (no date) (unknown) (unknown) Sodium (137-14 5) mmol/L (units unknown) (unknown) (unknown) (no date) (unknown) (unknown) Sodium 143 (137-145) mmol/L (units unknown) (unknown) (unknown) (no date) (unknown) (unknown) Sodium Chlorid e (Normal Saline 0.9%) 1,000 mls @ 1,000 mls/hr IV BOLUS ONE (units unknown) (unknown) (unknown) (no date) (unknown) (unknown) Source: patient (uni ts unknown) (unknown) (unknown) (no date) (unknown) (unknown) Stand Alone Fo barb: Patient Portal/API (units unknown) (unknown) (unknown) (no date) (unknown) (unknown) Stated complai nt: vomiting (units unknown) (unknown) (unknown) (no date) (unknown) (unknown) Stop: 10/10/22 16:14 (units unknown) (unknown) (unknown) (no date) (unknown) (unknown) Stop: 10/10/22 17:12 (units unknown) (unknown) (unknown) (no date) (unknown) (unknown) Stop: 10/10/22 17:34 (units unknown) (unknown) (unknown) (no date) (unknown) (unknown) Stop: 10/10/22 19:51 (units unknown) (unknown) (unknown) (no date) (unknown) (unknown) Substance Use Type: former substance user, marijuana and methamphetamine (units unknown) (unknown) (unknown) (no date) (unknown) (unknown) Surgical Histo ry (units unknown) (unknown) (unknown) (no date) (unknown) (unknown) TAKE ND (units unknown) (unknown) (unknown) (no date) (unknown) (unknown) TO IV SITE (units unknown) (unknown) (unknown) (no date) (unknown) (unknown) Temperature 98 .7 F 10/10/22 16:02 (units unknown) (unknown) (unknown) (no date) (unknown) (unknown) Time Seen by Provider: 10/10/22 16:13 (units unknown) (unknown) (unknown) (no date) (unknown) (unknown) Total Bilirubi n (0.2-1.3) mg/dL (units unknown) (unknown) (unknown) (no date) (unknown) (unknown) Total Bilirubi n 1.0 (0.2-1.3) mg/dL (units unknown) (unknown) (unknown) (no date) (unknown) (unknown) Total Protein (6.3-8.2) g/dL (units unknown) (unknown) (unknown) (no date) (unknown) (unknown) Total Protein 9.6 H (6.3-8.2) g/dL (units unknown) (unknown) (unknown) (no date) (unknown) (unknown) Treatments: Fernando sams demonstrates significant improvement after above-stated (units unknown) (unknown) (unknown) (no date) (unknown) (unknown) Treatments: (units unknown) (unknown) (unknown) (no date) (unknown) (unknown) Vital Signs - 8 hr ( units unknown) (unknown) (unknown) (no date) (unknown) (unknown) Vital Signs (units unknown) (unknown) (unknown) (no date) (unknown) (unknown) Vital signs: (units unknown) (unknown) (unknown) (no date) (unknown) (unknown) WBC (4.5-11.0) X103/uL (units unknown) (unknown) (unknown) (no date) (unknown) (unknown) WBC 9.9 (4.5-1 1.0) X103/uL (units unknown) (unknown) (unknown) (no date) (unknown) (unknown) [Embedded Imag e Not Available] (units unknown) (unknown) (unknown) (no date) (unknown) (unknown) [METOCLOPRAMIDE] (un its unknown) (unknown) (unknown) (no date) (unknown) (unknown) abdominal pain that comes in waves without warning. She is had no runny nose, (units unknown) (unknown) (unknown) (no date) (unknown) (unknown) additional outpatient follow up (units unknown) (unknown) (unknown) (no date) (unknown) (unknown) alcohol intake frequency: 3 or more drinks per day (units unknown) (unknown) (unknown) (no date) (unknown) (unknown) alcohol intake : current (units unknown) (unknown) (unknown) (no date) (unknown) (unknown) and agreement. (unit s unknown) (unknown) (unknown) (no date) (unknown) (unknown) any change in her bowel habits. (units unknown) (unknown) (unknown) (no date) (unknown) (unknown) been reviewed with patient as well as indications for ED re-evaluation and (units unknown) (unknown) (unknown) (no date) (unknown) (unknown) bupropion HCl 100 mg tablet sustained-release 12 hr (units unknown) (unknown) (unknown) (no date) (unknown) (unknown) bupropion HCl 100 mg tablet,12 hr 100 mg PO DAILY #90 ea 04/14/22 (units unknown) (unknown) (unknown) (no date) (unknown) (unknown) complaint of s evere abdominal pain and multiple episodes of nausea and vomiting (units unknown) (unknown) (unknown) (no date) (unknown) (unknown) consultation. Patient and family at bedside stated that they felt comfortable (units unknown) (unknown) (unknown) (no date) (unknown) (unknown) department for new symptoms. (units unknown) (unknown) (unknown) (no date) (unknown) (unknown) discharge sherrell ent home with return precautions. They expressed understanding (units unknown) (unknown) (unknown) (no date) (unknown) (unknown) dizziness. (units unknown) (unknown) (unknown) (no date) (unknown) (unknown) emergency department patient was able to tolerate oral intake and had no further (units unknown) (unknown) (unknown) (no date) (unknown) (unknown) emesis bag, pa cing, heart rate regular, lungs clear, abdomen tender but soft (units unknown) (unknown) (unknown) (no date) (unknown) (unknown) going home. I will refill her prescription for rectal Phenergan. Will (units unknown) (unknown) (unknown) (no date) (unknown) (unknown) household memb ers: spouse (units unknown) (unknown) (unknown) (no date) (unknown) (unknown) icterus. No injection or drainage. (units unknown) (unknown) (unknown) (no date) (unknown) (unknown) latex [LATEX] Allergy Unknown Verified 04/13/22 09:42 (units unknown) (unknown) (unknown) (no date) (unknown) (unknown) metoclopramide AdvReac Unknown DYSTONIA Verified 04/13/22 09:42 (units unknown) (unknown) (unknown) (no date) (unknown) (unknown) migraine, nilam l obstruction, electrolyte abnormality versus other (units unknown) (unknown) (unknown) (no date) (unknown) (unknown) obvious distre ss. Pacing (units unknown) (unknown) (unknown) (no date) (unknown) (unknown) over the cours e of the day. She denies any change in her medications or diet. (units unknown) (unknown) (unknown) (no date) (unknown) (unknown) potassium chlo ride 20 mEq 40 meq PO DAILY #90 tabs 04/14/22 (units unknown) (unknown) (unknown) (no date) (unknown) (unknown) potassium chlo ride 20 mEq tablet extended release (units unknown) (unknown) (unknown) (no date) (unknown) (unknown) prescription f or Phenergan rectal suppositories was sent to [facility] per your (units unknown) (unknown) (unknown) (no date) (unknown) (unknown) present, nondistended. (units unknown) (unknown) (unknown) (no date) (unknown) (unknown) prior electrol yte abnormalities presents with her significant other and a chief (units unknown) (unknown) (unknown) (no date) (unknown) (unknown) promethazine 2 5 mg rectal 25 mg ND Q4-6H PRN nausea and 10/10/22 (units unknown) (unknown) (unknown) (no date) (unknown) (unknown) promethazine 2 5 mg suppository (units unknown) (unknown) (unknown) (no date) (unknown) (unknown) promethazine [PROMETHAZINE] Allergy Mild ERYTHEMA Verified 04/13/22 09:42 (units unknown) (unknown) (unknown) (no date) (unknown) (unknown) rales, or rhonchi. ( units unknown) (unknown) (unknown) (no date) (unknown) (unknown) request. [place] [facility] her primary doctor for follow-up. Return to the emergency (units unknown) (unknown) (unknown) (no date) (unknown) (unknown) seizures, incoordination. (units unknown) (unknown) (unknown) (no date) (unknown) (unknown) significant leukocytosis though there is a small relative left shift (units unknown) (unknown) (unknown) (no date) (unknown) (unknown) sore throat or cough. She denies chest pain or shortness of breath. She denies (units unknown) (unknown) (unknown) (no date) (unknown) (unknown) spironolactone 25 mg tablet 25 mg PO DAILY #90 tabs 04/14/22 (units unknown) (unknown) (unknown) (no date) (unknown) (unknown) spironolactone 25 mg tablet (units unknown) (unknown) (unknown) (no date) (unknown) (unknown) suppository vomiting #12 ea (units unknown) (unknown) (unknown) (no date) (unknown) (unknown) sustained-release (u nits unknown) (unknown) (unknown) (no date) (unknown) (unknown) tablet,extende d release (units unknown) (unknown) (unknown) (no date) (unknown) (unknown) therapies (units unknown) (unknown) (unknown) (no date) (unknown) (unknown) tobacco type: vaping (units unknown) (unknown) (unknown) (no date) (unknown) (unknown) tonsillar hypertrophy or exudate. Airway patent. (units unknown) (unknown) (unknown) (no date) (unknown) (unknown) vomiting (units unknown) (unknown) (unknown) (no date) (unknown) (unknown) vomiting. Ther e is no indication for antibiotics. No indication for surgical (units unknown) (unknown) Result panel 806 (unknown) (no date) (unknown) (unknown) (no value) (units unknown) (unknown) (unknown) (no date) (unknown) (unknown) 11/01/22 20:38 (unit s unknown) (unknown) (unknown) (no date) (unknown) (unknown) 11/01/22 20:39 (unit s unknown) (unknown) (unknown) (no date) (unknown) (unknown) 11/01/22 (units unknown) (unknown) (unknown) (no date) (unknown) (unknown) 100 mg PO JEAN Y Qty: 90 0RF (units unknown) (unknown) (unknown) (no date) (unknown) (unknown) 20:34 (units unknown) (unknown) (unknown) (no date) (unknown) (unknown) 25 mg PO DAILY Qty: 90 0RF (units unknown) (unknown) (unknown) (no date) (unknown) (unknown) 25 mg ND PRN P RN (Reason: Nausea) (units unknown) (unknown) (unknown) (no date) (unknown) (unknown) 25 mg ND Q4-6H PRN (Reason: nausea and vomiting) Qty: 12 0RF (units unknown) (unknown) (unknown) (no date) (unknown) (unknown) [id number] (units unknown) (unknown) (unknown) (no date) (unknown) (unknown) 40 meq PO JEAN Y Qty: 90 0RF (units unknown) (unknown) (unknown) (no date) (unknown) (unknown) ABLE TO (units unknown) (unknown) (unknown) (no date) (unknown) (unknown) Abscess (units unknown) (unknown) (unknown) (no date) (unknown) (unknown) Age/Sex: 47 / F (uni ts unknown) (unknown) (unknown) (no date) (unknown) (unknown) Alcohol type: wine ( units unknown) (unknown) (unknown) (no date) (unknown) (unknown) Allergies (units unknown) (unknown) (unknown) (no date) (unknown) (unknown) Allergy/AdvRea c Type Severity Reaction Status Date / Time (units unknown) (unknown) (unknown) (no date) (unknown) (unknown) Blood Pressure 155/94 H 11/01/22 20:34 (units unknown) (unknown) (unknown) (no date) (unknown) (unknown) Blood Pressure 155/94 H (units unknown) (unknown) (unknown) (no date) (unknown) (unknown) CBC Auto Diff [Complete Blood Count AUTO DIFF] Stat (units unknown) (unknown) (unknown) (no date) (unknown) (unknown) CMP [Comprehen sive Metabolic Panel] Stat (units unknown) (unknown) (unknown) (no date) (unknown) (unknown) Chief complain t: Nausea/Vomiting/Trupti rrhea (units unknown) (unknown) (unknown) (no date) (unknown) (unknown) Chronic abdomi nal pain (units unknown) (unknown) (unknown) (no date) (unknown) (unknown) Compazine 25 m g ND PRN PRN Nausea 07/06/22 07/06/22 (units unknown) (unknown) (unknown) (no date) (unknown) (unknown) Compazine suppository (units unknown) (unknown) (unknown) (no date) (unknown) (unknown) Course (units unknown) (unknown) (unknown) (no date) (unknown) (unknown) Cyclic vomitin g syndrome (units unknown) (unknown) (unknown) (no date) (unknown) (unknown) : 3 Acct:[id number] (units unknown) (unknown) (unknown) (no date) (unknown) (unknown) Date of Servic e: 11/01/22 (units unknown) (unknown) (unknown) (no date) (unknown) (unknown) Daughter Angio-edema (units unknown) (unknown) (unknown) (no date) (unknown) (unknown) Departure (units unknown) (unknown) (unknown) (no date) (unknown) (unknown) Discharge Plan (unit s unknown) (unknown) (unknown) (no date) (unknown) (unknown) Discontinued Medications (units unknown) (unknown) (unknown) (no date) (unknown) (unknown) ED Orders (units unknown) (unknown) (unknown) (no date) (unknown) (unknown) ER Physician: Katy Peacock D.O. (units unknown) (unknown) (unknown) (no date) (unknown) (unknown) Emergency Report (un its unknown) (unknown) (unknown) (no date) (unknown) (unknown) Exam (units unknown) (unknown) (unknown) (no date) (unknown) (unknown) Family History (units unknown) (unknown) (unknown) (no date) (unknown) (unknown) Family history of angioedema (units unknown) (unknown) (unknown) (no date) (unknown) (unknown) Father Hypertension (units unknown) (unknown) (unknown) (no date) (unknown) (unknown) General (units unknown) (unknown) (unknown) (no date) (unknown) (unknown) HPI - Nausea/Vomiting/Trupti rrhea (units unknown) (unknown) (unknown) (no date) (unknown) (unknown) Home Medications (un its unknown) (unknown) (unknown) (no date) (unknown) (unknown) Hx of appendectomy ( units unknown) (unknown) (unknown) (no date) (unknown) (unknown) Hx of cholecystectomy (units unknown) (unknown) (unknown) (no date) (unknown) (unknown) Initial Vital Signs (units unknown) (unknown) (unknown) (no date) (unknown) (unknown) Initial Vital Signs: (units unknown) (unknown) (unknown) (no date) (unknown) (unknown) [address] [address] (units unknown) (unknown) (unknown) (no date) (unknown) (unknown) Sergo Martino M D [Primary Care Provider] (units unknown) (unknown) (unknown) (no date) (unknown) (unknown) Lactate (Lacti c Acid) Stat (units unknown) (unknown) (unknown) (no date) (unknown) (unknown) Lipase Stat (units unknown) (unknown) (unknown) (no date) (unknown) (unknown) Lorazepam (Lorazepam 2 Mg/Ml Inj) 2 mg IV NOW ONE (units unknown) (unknown) (unknown) (no date) (unknown) (unknown) 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 (units unknown) (unknown) (unknown) (no date) (unknown) (unknown) Marijuana use, continuous (units unknown) (unknown) (unknown) (no date) (unknown) (unknown) Medical Histor y (units unknown) (unknown) (unknown) (no date) (unknown) (unknown) Medication Instructions Recorded Confirmed (units unknown) (unknown) (unknown) (no date) (unknown) (unknown) Medication Instructions Recorded (units unknown) (unknown) (unknown) (no date) (unknown) (unknown) Mode of arriva l: EMS (units unknown) (unknown) (unknown) (no date) (unknown) (unknown) Mother Diabete s mellitus (units unknown) (unknown) (unknown) (no date) (unknown) (unknown) No Action (units unknown) (unknown) (unknown) (no date) (unknown) (unknown) Ondansetron HC l (Ondansetron 4 Mg Odt) 4 mg SL NOW PRN (units unknown) (unknown) (unknown) (no date) (unknown) (unknown) Ondansetron HC l (Ondansetron 4 Mg/2 Ml Inj) 4 mg IV NOW PRN (units unknown) (unknown) (unknown) (no date) (unknown) (unknown) Ordered: (units unknown) (unknown) (unknown) (no date) (unknown) (unknown) Orders (units unknown) (unknown) (unknown) (no date) (unknown) (unknown) Other Colon cancer ( units unknown) (unknown) (unknown) (no date) (unknown) (unknown) Oxygen Deliver y Method Room Air 11/01/22 20:34 (units unknown) (unknown) (unknown) (no date) (unknown) (unknown) Oxygen Deliver y Method Room Air (units unknown) (unknown) (unknown) (no date) (unknown) (unknown) PRN Reason: Na usea And Vomiting (units unknown) (unknown) (unknown) (no date) (unknown) (unknown) PT STATES (units unknown) (unknown) (unknown) (no date) (unknown) (unknown) Pancreatitis (units unknown) (unknown) (unknown) (no date) (unknown) (unknown) Pantoprazole S odium (Pantoprazole 40 Mg Vial) 40 mg IV NOW ONE (units unknown) (unknown) (unknown) (no date) (unknown) (unknown) Patient History (uni ts unknown) (unknown) (unknown) (no date) (unknown) (unknown) Patient: Huyen Castro MR#: [id number] (units unknown) (unknown) (unknown) (no date) (unknown) (unknown) Prescriptions: (unit s unknown) (unknown) (unknown) (no date) (unknown) (unknown) Previous Rx's (units unknown) (unknown) (unknown) (no date) (unknown) (unknown) Pulse Oximetry 97 11/01/22 20:34 (units unknown) (unknown) (unknown) (no date) (unknown) (unknown) Pulse Oximetry 97 (u nits unknown) (unknown) (unknown) (no date) (unknown) (unknown) Pulse Rate 76 11/01/22 20:34 (units unknown) (unknown) (unknown) (no date) (unknown) (unknown) Pulse Rate 76 (units unknown) (unknown) (unknown) (no date) (unknown) (unknown) Referrals: (units unknown) (unknown) (unknown) (no date) (unknown) (unknown) Related Data (units unknown) (unknown) (unknown) (no date) (unknown) (unknown) Respiratory Ra te 22 11/01/22 20:34 (units unknown) (unknown) (unknown) (no date) (unknown) (unknown) Respiratory Rate 22 (units unknown) (unknown) (unknown) (no date) (unknown) (unknown) Signed By: (units unknown) (unknown) (unknown) (no date) (unknown) (unknown) Smoking Status : Current every day smoker (units unknown) (unknown) (unknown) (no date) (unknown) (unknown) Social History (units unknown) (unknown) (unknown) (no date) (unknown) (unknown) Sodium Chlorid e (Normal Saline 0.9%) 1,000 mls @ 1,000 mls/hr IV BOLUS ONE (units unknown) (unknown) (unknown) (no date) (unknown) (unknown) Source: patien t and EMS (units unknown) (unknown) (unknown) (no date) (unknown) (unknown) Stated complai nt: cyclic vomiting (units unknown) (unknown) (unknown) (no date) (unknown) (unknown) Stop: 11/01/22 20:39 (units unknown) (unknown) (unknown) (no date) (unknown) (unknown) Stop: 11/01/22 20:40 (units unknown) (unknown) (unknown) (no date) (unknown) (unknown) Stop: 11/01/22 21:37 (units unknown) (unknown) (unknown) (no date) (unknown) (unknown) Substance Use Type: former substance user, marijuana and methamphetamine (units unknown) (unknown) (unknown) (no date) (unknown) (unknown) Surgical Histo ry (units unknown) (unknown) (unknown) (no date) (unknown) (unknown) TAKE ND (units unknown) (unknown) (unknown) (no date) (unknown) (unknown) TO IV SITE (units unknown) (unknown) (unknown) (no date) (unknown) (unknown) Temperature 98 .6 F 11/01/22 20:34 (units unknown) (unknown) (unknown) (no date) (unknown) (unknown) Temperature 98.6 F ( units unknown) (unknown) (unknown) (no date) (unknown) (unknown) Time Seen by Provider: 11/01/22 20:38 (units unknown) (unknown) (unknown) (no date) (unknown) (unknown) Urine Drug Scr een, Rapid Stat (units unknown) (unknown) (unknown) (no date) (unknown) (unknown) Vital Signs - 8 hr ( units unknown) (unknown) (unknown) (no date) (unknown) (unknown) Vital Signs (units unknown) (unknown) (unknown) (no date) (unknown) (unknown) Vital signs: (units unknown) (unknown) (unknown) (no date) (unknown) (unknown) [METOCLOPRAMIDE] (un its unknown) (unknown) (unknown) (no date) (unknown) (unknown) alcohol intake frequency: 3 or more drinks per day (units unknown) (unknown) (unknown) (no date) (unknown) (unknown) alcohol intake : current (units unknown) (unknown) (unknown) (no date) (unknown) (unknown) bupropion HCl 100 mg tablet sustained-release 12 hr (units unknown) (unknown) (unknown) (no date) (unknown) (unknown) bupropion HCl 100 mg tablet,12 hr 100 mg PO DAILY #90 ea 04/14/22 (units unknown) (unknown) (unknown) (no date) (unknown) (unknown) household memb ers: spouse (units unknown) (unknown) (unknown) (no date) (unknown) (unknown) latex [LATEX] Allergy Unknown Verified 11/01/22 20:34 (units unknown) (unknown) (unknown) (no date) (unknown) (unknown) metoclopramide AdvReac Unknown DYSTONIA Verified 11/01/22 20:34 (units unknown) (unknown) (unknown) (no date) (unknown) (unknown) potassium chlo ride 20 mEq 40 meq PO DAILY #90 tabs 04/14/22 (units unknown) (unknown) (unknown) (no date) (unknown) (unknown) potassium chlo ride 20 mEq tablet extended release (units unknown) (unknown) (unknown) (no date) (unknown) (unknown) promethazine 2 5 mg rectal 25 mg ND Q4-6H PRN nausea and 10/10/22 (units unknown) (unknown) (unknown) (no date) (unknown) (unknown) promethazine 2 5 mg suppository (units unknown) (unknown) (unknown) (no date) (unknown) (unknown) promethazine [PROMETHAZINE] Allergy Mild ERYTHEMA Verified 11/01/22 20:34 (units unknown) (unknown) (unknown) (no date) (unknown) (unknown) spironolactone 25 mg tablet 25 mg PO DAILY #90 tabs 04/14/22 (units unknown) (unknown) (unknown) (no date) (unknown) (unknown) spironolactone 25 mg tablet (units unknown) (unknown) (unknown) (no date) (unknown) (unknown) suppository vomiting #12 ea (units unknown) (unknown) (unknown) (no date) (unknown) (unknown) sustained-release (u nits unknown) (unknown) (unknown) (no date) (unknown) (unknown) tablet,extende d release (units unknown) (unknown) (unknown) (no date) (unknown) (unknown) tobacco type: vaping (units unknown) (unknown) Result panel 807 (unknown) (no date) (unknown) (unknown) (no value) (units unknown) (unknown) (unknown) (no date) (unknown) (unknown) 11/01/22 20:38 (unit s unknown) (unknown) (unknown) (no date) (unknown) (unknown) 11/01/22 20:39 (unit s unknown) (unknown) (unknown) (no date) (unknown) (unknown) 11/01/22 (units unknown) (unknown) (unknown) (no date) (unknown) (unknown) 100 mg PO JEAN Y Qty: 90 0RF (units unknown) (unknown) (unknown) (no date) (unknown) (unknown) 20:29 11/01/22 (unit s unknown) (unknown) (unknown) (no date) (unknown) (unknown) 20:30 11/01/22 (unit s unknown) (unknown) (unknown) (no date) (unknown) (unknown) 20:30 (units unknown) (unknown) (unknown) (no date) (unknown) (unknown) 20:34 11/01/22 (unit s unknown) (unknown) (unknown) (no date) (unknown) (unknown) 21:50 11/01/22 (unit s unknown) (unknown) (unknown) (no date) (unknown) (unknown) 21:51 (units unknown) (unknown) (unknown) (no date) (unknown) (unknown) 25 mg PO DAILY Qty: 90 0RF (units unknown) (unknown) (unknown) (no date) (unknown) (unknown) 25 mg ND PRN P RN (Reason: Nausea) (units unknown) (unknown) (unknown) (no date) (unknown) (unknown) 25 mg ND Q4-6H PRN (Reason: nausea and vomiting) Qty: 12 0RF (units unknown) (unknown) (unknown) (no date) (unknown) (unknown) [id number] (units unknown) (unknown) (unknown) (no date) (unknown) (unknown) 40 meq PO JEAN Y Qty: 90 0RF (units unknown) (unknown) (unknown) (no date) (unknown) (unknown) ABLE TO (units unknown) (unknown) (unknown) (no date) (unknown) (unknown) Abscess (units unknown) (unknown) (unknown) (no date) (unknown) (unknown) Age/Sex: 47 / F (uni ts unknown) (unknown) (unknown) (no date) (unknown) (unknown) Alcohol type: wine ( units unknown) (unknown) (unknown) (no date) (unknown) (unknown) Allergies (units unknown) (unknown) (unknown) (no date) (unknown) (unknown) Allergy/AdvRea c Type Severity Reaction Status Date / Time (units unknown) (unknown) (unknown) (no date) (unknown) (unknown) Blood Pressure 155/94 H 155/94 H (units unknown) (unknown) (unknown) (no date) (unknown) (unknown) Blood Pressure 161/121 H (units unknown) (unknown) (unknown) (no date) (unknown) (unknown) Blood Pressure (unit s unknown) (unknown) (unknown) (no date) (unknown) (unknown) CBC Auto Diff [Complete Blood Count AUTO DIFF] Stat (units unknown) (unknown) (unknown) (no date) (unknown) (unknown) CMP [Comprehen sive Metabolic Panel] Stat (units unknown) (unknown) (unknown) (no date) (unknown) (unknown) Chief complain t: Nausea/Vomiting/Trupti rrhea (units unknown) (unknown) (unknown) (no date) (unknown) (unknown) Chronic abdomi nal pain (units unknown) (unknown) (unknown) (no date) (unknown) (unknown) Compazine 25 m g ND PRN PRN Nausea 07/06/22 07/06/22 (units unknown) (unknown) (unknown) (no date) (unknown) (unknown) Compazine suppository (units unknown) (unknown) (unknown) (no date) (unknown) (unknown) Course (units unknown) (unknown) (unknown) (no date) (unknown) (unknown) Cyclic vomitin g syndrome (units unknown) (unknown) (unknown) (no date) (unknown) (unknown) : 3 Acct:[id number] (units unknown) (unknown) (unknown) (no date) (unknown) (unknown) Date of Servic e: 11/01/22 (units unknown) (unknown) (unknown) (no date) (unknown) (unknown) Daughter Angio-edema (units unknown) (unknown) (unknown) (no date) (unknown) (unknown) Departure (units unknown) (unknown) (unknown) (no date) (unknown) (unknown) Diphenhydramin e HCl (Diphenhydramine 50 Mg/Ml Vial) 50 mg IM NOW ONE (units unknown) (unknown) (unknown) (no date) (unknown) (unknown) Diphenhydramin e HCl (Diphenhydramine 50 Mg/Ml Vial) 50 mg IV NOW ONE (units unknown) (unknown) (unknown) (no date) (unknown) (unknown) Discharge Plan (unit s unknown) (unknown) (unknown) (no date) (unknown) (unknown) Discontinued Medications (units unknown) (unknown) (unknown) (no date) (unknown) (unknown) Documented By: AP (u nits unknown) (unknown) (unknown) (no date) (unknown) (unknown) ED Orders (units unknown) (unknown) (unknown) (no date) (unknown) (unknown) ER Physician: Katy Peacock D.O. (units unknown) (unknown) (unknown) (no date) (unknown) (unknown) Emergency Report (un its unknown) (unknown) (unknown) (no date) (unknown) (unknown) Exam (units unknown) (unknown) (unknown) (no date) (unknown) (unknown) Family History (units unknown) (unknown) (unknown) (no date) (unknown) (unknown) Family history of angioedema (units unknown) (unknown) (unknown) (no date) (unknown) (unknown) Father Hypertension (units unknown) (unknown) (unknown) (no date) (unknown) (unknown) General (units unknown) (unknown) (unknown) (no date) (unknown) (unknown) HPI - Nausea/Vomiting/Trupti rrhea (units unknown) (unknown) (unknown) (no date) (unknown) (unknown) HPI Narrative: (unit s unknown) (unknown) (unknown) (no date) (unknown) (unknown) Haloperidol (Haloperidol 5 Mg/Ml Vial) 2 mg IV NOW ONE (units unknown) (unknown) (unknown) (no date) (unknown) (unknown) Haloperidol (Haloperidol 5 Mg/Ml Vial) 5 mg IM NOW ONE (units unknown) (unknown) (unknown) (no date) (unknown) (unknown) History of Pre sent Illness (units unknown) (unknown) (unknown) (no date) (unknown) (unknown) Home Medications (un its unknown) (unknown) (unknown) (no date) (unknown) (unknown) Hx of appendectomy ( units unknown) (unknown) (unknown) (no date) (unknown) (unknown) Hx of cholecystectomy (units unknown) (unknown) (unknown) (no date) (unknown) (unknown) Initial Vital Signs (units unknown) (unknown) (unknown) (no date) (unknown) (unknown) Initial Vital Signs: (units unknown) (unknown) (unknown) (no date) (unknown) (unknown) [address] [address] (units unknown) (unknown) (unknown) (no date) (unknown) (unknown) Sergo Martino M D [Primary Care Provider] (units unknown) (unknown) (unknown) (no date) (unknown) (unknown) Lactate (Lacti c Acid) Stat (units unknown) (unknown) (unknown) (no date) (unknown) (unknown) Last Admin: 11/01/22 22:01 Dose: 2 mg (units unknown) (unknown) (unknown) (no date) (unknown) (unknown) Last Admin: 11/01/22 22:01 Dose: 4 mg (units unknown) (unknown) (unknown) (no date) (unknown) (unknown) Last Admin: 11/01/22 22:01 Dose: 40 mg (units unknown) (unknown) (unknown) (no date) (unknown) (unknown) Last Admin: 11/01/22 22:25 Dose: 50 mg (units unknown) (unknown) (unknown) (no date) (unknown) (unknown) Lipase Stat (units unknown) (unknown) (unknown) (no date) (unknown) (unknown) Lorazepam (Lorazepam 2 Mg/Ml Inj) 2 mg IM NOW ONE (units unknown) (unknown) (unknown) (no date) (unknown) (unknown) Lorazepam (Lorazepam 2 Mg/Ml Inj) 2 mg IV NOW ONE (units unknown) (unknown) (unknown) (no date) (unknown) (unknown) 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 (units unknown) (unknown) (unknown) (no date) (unknown) (unknown) Marijuana use, continuous (units unknown) (unknown) (unknown) (no date) (unknown) (unknown) Medical Histor y (units unknown) (unknown) (unknown) (no date) (unknown) (unknown) Medication Instructions Recorded Confirmed (units unknown) (unknown) (unknown) (no date) (unknown) (unknown) Medication Instructions Recorded (units unknown) (unknown) (unknown) (no date) (unknown) (unknown) Mode of arriva l: EMS (units unknown) (unknown) (unknown) (no date) (unknown) (unknown) Mother Diabete s mellitus (units unknown) (unknown) (unknown) (no date) (unknown) (unknown) No Action (units unknown) (unknown) (unknown) (no date) (unknown) (unknown) Ondansetron HC l (Ondansetron 4 Mg Odt) 4 mg SL NOW PRN (units unknown) (unknown) (unknown) (no date) (unknown) (unknown) Ondansetron HC l (Ondansetron 4 Mg/2 Ml Inj) 4 mg IV NOW PRN (units unknown) (unknown) (unknown) (no date) (unknown) (unknown) Ordered: (units unknown) (unknown) (unknown) (no date) (unknown) (unknown) Orders (units unknown) (unknown) (unknown) (no date) (unknown) (unknown) Other Colon cancer ( units unknown) (unknown) (unknown) (no date) (unknown) (unknown) Oxygen Deliver y Method Room Air (units unknown) (unknown) (unknown) (no date) (unknown) (unknown) Oxygen Deliver y Method (units unknown) (unknown) (unknown) (no date) (unknown) (unknown) PRN Reason: Na usea And Vomiting (units unknown) (unknown) (unknown) (no date) (unknown) (unknown) PT [place] (units unknown) (unknown) (unknown) (no date) (unknown) (unknown) Pancreatitis (units unknown) (unknown) (unknown) (no date) (unknown) (unknown) Pantoprazole S odium (Pantoprazole 40 Mg Vial) 40 mg IV NOW ONE (units unknown) (unknown) (unknown) (no date) (unknown) (unknown) Patient History (uni ts unknown) (unknown) (unknown) (no date) (unknown) (unknown) Patient is a 47-year-old female with history of cyclic vomiting. (units unknown) (unknown) (unknown) (no date) (unknown) (unknown) Patient: Huyen Castro MR#: [id number] (units unknown) (unknown) (unknown) (no date) (unknown) (unknown) Prescriptions: (unit s unknown) (unknown) (unknown) (no date) (unknown) (unknown) Previous Rx's (units unknown) (unknown) (unknown) (no date) (unknown) (unknown) Pulse Oximetry 85 L 98 (units unknown) (unknown) (unknown) (no date) (unknown) (unknown) Pulse Oximetry 89 L 11/01/22 20:29 (units unknown) (unknown) (unknown) (no date) (unknown) (unknown) Pulse Oximetry 94 (u nits unknown) (unknown) (unknown) (no date) (unknown) (unknown) Pulse Oximetry 97 89 L (units unknown) (unknown) (unknown) (no date) (unknown) (unknown) Pulse Rate 44 L 79 ( units unknown) (unknown) (unknown) (no date) (unknown) (unknown) Pulse Rate 76 (units unknown) (unknown) (unknown) (no date) (unknown) (unknown) Pulse Rate 79 (units unknown) (unknown) (unknown) (no date) (unknown) (unknown) Referrals: (units unknown) (unknown) (unknown) (no date) (unknown) (unknown) Related Data (units unknown) (unknown) (unknown) (no date) (unknown) (unknown) Respiratory Rate 22 (units unknown) (unknown) (unknown) (no date) (unknown) (unknown) Respiratory Rate (un its unknown) (unknown) (unknown) (no date) (unknown) (unknown) Signed By: (units unknown) (unknown) (unknown) (no date) (unknown) (unknown) Smoking Status : Current every day smoker (units unknown) (unknown) (unknown) (no date) (unknown) (unknown) Social History (units unknown) (unknown) (unknown) (no date) (unknown) (unknown) Sodium Chlorid e (Normal Saline 0.9%) 1,000 mls @ 1,000 mls/hr IV BOLUS ONE (units unknown) (unknown) (unknown) (no date) (unknown) (unknown) Source: patien t and EMS (units unknown) (unknown) (unknown) (no date) (unknown) (unknown) Stated complai nt: cyclic vomiting (units unknown) (unknown) (unknown) (no date) (unknown) (unknown) Stop: 11/01/22 20:39 (units unknown) (unknown) (unknown) (no date) (unknown) (unknown) Stop: 11/01/22 20:40 (units unknown) (unknown) (unknown) (no date) (unknown) (unknown) Stop: 11/01/22 21:37 (units unknown) (unknown) (unknown) (no date) (unknown) (unknown) Stop: 11/01/22 21:54 (units unknown) (unknown) (unknown) (no date) (unknown) (unknown) Stop: 11/01/22 22:17 (units unknown) (unknown) (unknown) (no date) (unknown) (unknown) Substance Use Type: former substance user, marijuana and methamphetamine (units unknown) (unknown) (unknown) (no date) (unknown) (unknown) Surgical Histo ry (units unknown) (unknown) (unknown) (no date) (unknown) (unknown) TAKE ND (units unknown) (unknown) (unknown) (no date) (unknown) (unknown) TO IV SITE (units unknown) (unknown) (unknown) (no date) (unknown) (unknown) Temperature 98.6 F ( units unknown) (unknown) (unknown) (no date) (unknown) (unknown) Temperature (units unknown) (unknown) (unknown) (no date) (unknown) (unknown) Time Seen by Provider: 11/01/22 20:38 (units unknown) (unknown) (unknown) (no date) (unknown) (unknown) Urine Drug Scr een, Rapid Stat (units unknown) (unknown) (unknown) (no date) (unknown) (unknown) Vital Signs - 8 hr ( units unknown) (unknown) (unknown) (no date) (unknown) (unknown) Vital Signs (units unknown) (unknown) (unknown) (no date) (unknown) (unknown) Vital signs: (units unknown) (unknown) (unknown) (no date) (unknown) (unknown) [METOCLOPRAMIDE] (un its unknown) (unknown) (unknown) (no date) (unknown) (unknown) alcohol intake frequency: 3 or more drinks per day (units unknown) (unknown) (unknown) (no date) (unknown) (unknown) alcohol intake : current (units unknown) (unknown) (unknown) (no date) (unknown) (unknown) bupropion HCl 100 mg tablet sustained-release 12 hr (units unknown) (unknown) (unknown) (no date) (unknown) (unknown) bupropion HCl 100 mg tablet,12 hr 100 mg PO DAILY #90 ea 04/14/22 (units unknown) (unknown) (unknown) (no date) (unknown) (unknown) household memb ers: spouse (units unknown) (unknown) (unknown) (no date) (unknown) (unknown) latex [LATEX] Allergy Unknown Verified 11/01/22 20:34 (units unknown) (unknown) (unknown) (no date) (unknown) (unknown) metoclopramide AdvReac Unknown DYSTONIA Verified 11/01/22 20:34 (units unknown) (unknown) (unknown) (no date) (unknown) (unknown) potassium chlo ride 20 mEq 40 meq PO DAILY #90 tabs 04/14/22 (units unknown) (unknown) (unknown) (no date) (unknown) (unknown) potassium chlo ride 20 mEq tablet extended release (units unknown) (unknown) (unknown) (no date) (unknown) (unknown) promethazine 2 5 mg rectal 25 mg ND Q4-6H PRN nausea and 10/10/22 (units unknown) (unknown) (unknown) (no date) (unknown) (unknown) promethazine 2 5 mg suppository (units unknown) (unknown) (unknown) (no date) (unknown) (unknown) promethazine [PROMETHAZINE] Allergy Mild ERYTHEMA Verified 11/01/22 20:34 (units unknown) (unknown) (unknown) (no date) (unknown) (unknown) spironolactone 25 mg tablet 25 mg PO DAILY #90 tabs 04/14/22 (units unknown) (unknown) (unknown) (no date) (unknown) (unknown) spironolactone 25 mg tablet (units unknown) (unknown) (unknown) (no date) (unknown) (unknown) suppository vomiting #12 ea (units unknown) (unknown) (unknown) (no date) (unknown) (unknown) sustained-release (u nits unknown) (unknown) (unknown) (no date) (unknown) (unknown) tablet,extende d release (units unknown) (unknown) (unknown) (no date) (unknown) (unknown) tobacco type: vaping (units unknown) (unknown) Result panel 808 (unknown) (no date) (unknown) (unknown) (no value) (units unknown) (unknown) (unknown) (no date) (unknown) (unknown) 11/01/22 20:38 (unit s unknown) (unknown) (unknown) (no date) (unknown) (unknown) 11/01/22 20:39 (unit s unknown) (unknown) (unknown) (no date) (unknown) (unknown) 11/01/22 (units unknown) (unknown) (unknown) (no date) (unknown) (unknown) 100 mg PO JEAN Y Qty: 90 0RF (units unknown) (unknown) (unknown) (no date) (unknown) (unknown) 20:29 11/01/22 (unit s unknown) (unknown) (unknown) (no date) (unknown) (unknown) 20:30 11/01/22 (unit s unknown) (unknown) (unknown) (no date) (unknown) (unknown) 20:30 (units unknown) (unknown) (unknown) (no date) (unknown) (unknown) 20:34 11/01/22 (unit s unknown) (unknown) (unknown) (no date) (unknown) (unknown) 21:50 11/01/22 (unit s unknown) (unknown) (unknown) (no date) (unknown) (unknown) 21:51 (units unknown) (unknown) (unknown) (no date) (unknown) (unknown) 25 mg PO DAILY Qty: 90 0RF (units unknown) (unknown) (unknown) (no date) (unknown) (unknown) 25 mg ND PRN P RN (Reason: Nausea) (units unknown) (unknown) (unknown) (no date) (unknown) (unknown) 25 mg ND Q4-6H PRN (Reason: nausea and vomiting) Qty: 12 0RF (units unknown) (unknown) (unknown) (no date) (unknown) (unknown) [id number] (units unknown) (unknown) (unknown) (no date) (unknown) (unknown) 40 meq PO JEAN Y Qty: 90 0RF (units unknown) (unknown) (unknown) (no date) (unknown) (unknown) ABDOMEN: Soft, nontender. Normoactive bowel sounds all 4 quadrants. No (units unknown) (unknown) (unknown) (no date) (unknown) (unknown) ABLE TO (units unknown) (unknown) (unknown) (no date) (unknown) (unknown) Abscess (units unknown) (unknown) (unknown) (no date) (unknown) (unknown) Age/Sex: 47 / F (uni ts unknown) (unknown) (unknown) (no date) (unknown) (unknown) Alcohol type: wine ( units unknown) (unknown) (unknown) (no date) (unknown) (unknown) Allergies (units unknown) (unknown) (unknown) (no date) (unknown) (unknown) Allergy/AdvRea c Type Severity Reaction Status Date / Time (units unknown) (unknown) (unknown) (no date) (unknown) (unknown) Blood Pressure 155/94 H 155/94 H (units unknown) (unknown) (unknown) (no date) (unknown) (unknown) Blood Pressure 161/121 H (units unknown) (unknown) (unknown) (no date) (unknown) (unknown) Blood Pressure (unit s unknown) (unknown) (unknown) (no date) (unknown) (unknown) CARDIOVASCULAR : Regular rate and rhythm without murmurs, rubs or gallops. (units unknown) (unknown) (unknown) (no date) (unknown) (unknown) CBC Auto Diff [Complete Blood Count AUTO DIFF] Stat (units unknown) (unknown) (unknown) (no date) (unknown) (unknown) CMP [Comprehen sive Metabolic Panel] Stat (units unknown) (unknown) (unknown) (no date) (unknown) (unknown) Chief complain t: Nausea/Vomiting/Trupti rrhea (units unknown) (unknown) (unknown) (no date) (unknown) (unknown) Chronic abdomi nal pain (units unknown) (unknown) (unknown) (no date) (unknown) (unknown) Compazine 25 m g ND PRN PRN Nausea 07/06/22 07/06/22 (units unknown) (unknown) (unknown) (no date) (unknown) (unknown) Compazine suppository (units unknown) (unknown) (unknown) (no date) (unknown) (unknown) Course (units unknown) (unknown) (unknown) (no date) (unknown) (unknown) Cyclic vomitin g syndrome (units unknown) (unknown) (unknown) (no date) (unknown) (unknown) : 3 Acct:[id number] (units unknown) (unknown) (unknown) (no date) (unknown) (unknown) Date of Servic e: 11/01/22 (units unknown) (unknown) (unknown) (no date) (unknown) (unknown) Daughter Angio-edema (units unknown) (unknown) (unknown) (no date) (unknown) (unknown) Departure (units unknown) (unknown) (unknown) (no date) (unknown) (unknown) Diphenhydramin e HCl (Diphenhydramine 50 Mg/Ml Vial) 50 mg IM NOW ONE (units unknown) (unknown) (unknown) (no date) (unknown) (unknown) Diphenhydramin e HCl (Diphenhydramine 50 Mg/Ml Vial) 50 mg IV NOW ONE (units unknown) (unknown) (unknown) (no date) (unknown) (unknown) Discharge Plan (unit s unknown) (unknown) (unknown) (no date) (unknown) (unknown) Discontinued Medications (units unknown) (unknown) (unknown) (no date) (unknown) (unknown) Documented By: AP (u nits unknown) (unknown) (unknown) (no date) (unknown) (unknown) ED Orders (units unknown) (unknown) (unknown) (no date) (unknown) (unknown) ER Physician: Katy Peacock D.O. (units unknown) (unknown) (unknown) (no date) (unknown) (unknown) EXTREMITIES: N ormal range of motion, no clubbing or edema. Neurovascularly (units unknown) (unknown) (unknown) (no date) (unknown) (unknown) Emergency Report (un its unknown) (unknown) (unknown) (no date) (unknown) (unknown) Exam (units unknown) (unknown) (unknown) (no date) (unknown) (unknown) Family History (units unknown) (unknown) (unknown) (no date) (unknown) (unknown) Family history of angioedema (units unknown) (unknown) (unknown) (no date) (unknown) (unknown) Father Hypertension (units unknown) (unknown) (unknown) (no date) (unknown) (unknown) GENERAL: Alert anxious flailing 47-year-old female, vomiting (units unknown) (unknown) (unknown) (no date) (unknown) (unknown) General (units unknown) (unknown) (unknown) (no date) (unknown) (unknown) HEENT: Head atraumatic,EOMI, pupils reactive, face symmetric, [moist] mucous (units unknown) (unknown) (unknown) (no date) (unknown) (unknown) HPI - Nausea/Vomiting/Trupti rrhea (units unknown) (unknown) (unknown) (no date) (unknown) (unknown) HPI Narrative: (unit s unknown) (unknown) (unknown) (no date) (unknown) (unknown) Haloperidol (Haloperidol 5 Mg/Ml Vial) 2 mg IV NOW ONE (units unknown) (unknown) (unknown) (no date) (unknown) (unknown) Haloperidol (Haloperidol 5 Mg/Ml Vial) 5 mg IM NOW ONE (units unknown) (unknown) (unknown) (no date) (unknown) (unknown) History of Pre sent Illness (units unknown) (unknown) (unknown) (no date) (unknown) (unknown) Home Medications (un its unknown) (unknown) (unknown) (no date) (unknown) (unknown) Hx of appendectomy ( units unknown) (unknown) (unknown) (no date) (unknown) (unknown) Hx of cholecystectomy (units unknown) (unknown) (unknown) (no date) (unknown) (unknown) Initial Vital Signs (units unknown) (unknown) (unknown) (no date) (unknown) (unknown) Initial Vital Signs: (units unknown) (unknown) (unknown) (no date) (unknown) (unknown) [address] [address] (units unknown) (unknown) (unknown) (no date) (unknown) (unknown) Sergo Martino M D [Primary Care Provider] (units unknown) (unknown) (unknown) (no date) (unknown) (unknown) Lactate (Lacti c Acid) Stat (units unknown) (unknown) (unknown) (no date) (unknown) (unknown) Last Admin: 03/16/23 22:01 Dose: 2 mg (units unknown) (unknown) (unknown) (no date) (unknown) (unknown) Last Admin: 11/01/22 22:01 Dose: 4 mg (units unknown) (unknown) (unknown) (no date) (unknown) (unknown) Last Admin: 11/01/22 22:01 Dose: 40 mg (units unknown) (unknown) (unknown) (no date) (unknown) (unknown) Last Admin: 11/01/22 22:25 Dose: 50 mg (units unknown) (unknown) (unknown) (no date) (unknown) (unknown) Lipase Stat (units unknown) (unknown) (unknown) (no date) (unknown) (unknown) Lorazepam (Lorazepam 2 Mg/Ml Inj) 2 mg IM NOW ONE (units unknown) (unknown) (unknown) (no date) (unknown) (unknown) Lorazepam (Lorazepam 2 Mg/Ml Inj) 2 mg IV NOW ONE (units unknown) (unknown) (unknown) (no date) (unknown) (unknown) 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 (units unknown) (unknown) (unknown) (no date) (unknown) (unknown) Marijuana use, continuous (units unknown) (unknown) (unknown) (no date) (unknown) (unknown) Medical Histor y (units unknown) (unknown) (unknown) (no date) (unknown) (unknown) Medication Instructions Recorded Confirmed (units unknown) (unknown) (unknown) (no date) (unknown) (unknown) Medication Instructions Recorded (units unknown) (unknown) (unknown) (no date) (unknown) (unknown) Mode of arriva l: EMS (units unknown) (unknown) (unknown) (no date) (unknown) (unknown) Mother Diabete s mellitus (units unknown) (unknown) (unknown) (no date) (unknown) (unknown) NEUROLOGICAL: Alert and oriented x4. (units unknown) (unknown) (unknown) (no date) (unknown) (unknown) No Action (units unknown) (unknown) (unknown) (no date) (unknown) (unknown) Ondansetron HC l (Ondansetron 4 Mg Odt) 4 mg SL NOW PRN (units unknown) (unknown) (unknown) (no date) (unknown) (unknown) Ondansetron HC l (Ondansetron 4 Mg/2 Ml Inj) 4 mg IV NOW PRN (units unknown) (unknown) (unknown) (no date) (unknown) (unknown) Ordered: (units unknown) (unknown) (unknown) (no date) (unknown) (unknown) Orders (units unknown) (unknown) (unknown) (no date) (unknown) (unknown) Other Colon cancer ( units unknown) (unknown) (unknown) (no date) (unknown) (unknown) Oxygen Deliver y Method Room Air (units unknown) (unknown) (unknown) (no date) (unknown) (unknown) Oxygen Deliver y Method (units unknown) (unknown) (unknown) (no date) (unknown) (unknown) PRN Reason: Na usea And Vomiting (units unknown) (unknown) (unknown) (no date) (unknown) (unknown) PT [place] (units unknown) (unknown) (unknown) (no date) (unknown) (unknown) Pancreatitis (units unknown) (unknown) (unknown) (no date) (unknown) (unknown) Pantoprazole S odium (Pantoprazole 40 Mg Vial) 40 mg IV NOW ONE (units unknown) (unknown) (unknown) (no date) (unknown) (unknown) Patient History (uni ts unknown) (unknown) (unknown) (no date) (unknown) (unknown) Patient is a 47-year-old female with history of cyclic vomiting, abdominal (units unknown) (unknown) (unknown) (no date) (unknown) (unknown) Patient: Huyen Castro MR#: [id number] (units unknown) (unknown) (unknown) (no date) (unknown) (unknown) Prescriptions: (unit s unknown) (unknown) (unknown) (no date) (unknown) (unknown) Previous Rx's (units unknown) (unknown) (unknown) (no date) (unknown) (unknown) Pulse Oximetry 85 L 98 (units unknown) (unknown) (unknown) (no date) (unknown) (unknown) Pulse Oximetry 89 L 11/01/22 20:29 (units unknown) (unknown) (unknown) (no date) (unknown) (unknown) Pulse Oximetry 94 (u nits unknown) (unknown) (unknown) (no date) (unknown) (unknown) Pulse Oximetry 97 89 L (units unknown) (unknown) (unknown) (no date) (unknown) (unknown) Pulse Rate 44 L 79 ( units unknown) (unknown) (unknown) (no date) (unknown) (unknown) Pulse Rate 76 (units unknown) (unknown) (unknown) (no date) (unknown) (unknown) Pulse Rate 79 (units unknown) (unknown) (unknown) (no date) (unknown) (unknown) RESPIRATORY: B reath sounds equal bilaterally, no wheezes rales or rhonchi. (units unknown) (unknown) (unknown) (no date) (unknown) (unknown) ROS Unobtainab le: All systems reviewed + are unremarkable except as noted in HPI (units unknown) (unknown) (unknown) (no date) (unknown) (unknown) Referrals: (units unknown) (unknown) (unknown) (no date) (unknown) (unknown) Related Data (units unknown) (unknown) (unknown) (no date) (unknown) (unknown) Respiratory Rate 22 (units unknown) (unknown) (unknown) (no date) (unknown) (unknown) Respiratory Rate (un its unknown) (unknown) (unknown) (no date) (unknown) (unknown) Review of Systems (u nits unknown) (unknown) (unknown) (no date) (unknown) (unknown) SKIN: Warm, dr y, no laceration, no petechiae, no rashes or lesions. (units unknown) (unknown) (unknown) (no date) (unknown) (unknown) Signed By: (units unknown) (unknown) (unknown) (no date) (unknown) (unknown) Smoking Status : Current every day smoker (units unknown) (unknown) (unknown) (no date) (unknown) (unknown) Social History (units unknown) (unknown) (unknown) (no date) (unknown) (unknown) Sodium Chlorid e (Normal Saline 0.9%) 1,000 mls @ 1,000 mls/hr IV BOLUS ONE (units unknown) (unknown) (unknown) (no date) (unknown) (unknown) Source: patien t and EMS (units unknown) (unknown) (unknown) (no date) (unknown) (unknown) Stated complai nt: cyclic vomiting (units unknown) (unknown) (unknown) (no date) (unknown) (unknown) Stop: 11/01/22 20:39 (units unknown) (unknown) (unknown) (no date) (unknown) (unknown) Stop: 11/01/22 20:40 (units unknown) (unknown) (unknown) (no date) (unknown) (unknown) Stop: 11/01/22 21:37 (units unknown) (unknown) (unknown) (no date) (unknown) (unknown) Stop: 11/01/22 21:54 (units unknown) (unknown) (unknown) (no date) (unknown) (unknown) Stop: 11/01/22 22:17 (units unknown) (unknown) (unknown) (no date) (unknown) (unknown) Substance Use Type: former substance user, marijuana and methamphetamine (units unknown) (unknown) (unknown) (no date) (unknown) (unknown) Surgical Histo ry (units unknown) (unknown) (unknown) (no date) (unknown) (unknown) TAKE ND (units unknown) (unknown) (unknown) (no date) (unknown) (unknown) TO IV SITE (units unknown) (unknown) (unknown) (no date) (unknown) (unknown) Temperature 98.6 F ( units unknown) (unknown) (unknown) (no date) (unknown) (unknown) Temperature (units unknown) (unknown) (unknown) (no date) (unknown) (unknown) Time Seen by Provider: 11/01/22 20:38 (units unknown) (unknown) (unknown) (no date) (unknown) (unknown) Urine Drug Scr een, Rapid Stat (units unknown) (unknown) (unknown) (no date) (unknown) (unknown) Vital Signs - 8 hr ( units unknown) (unknown) (unknown) (no date) (unknown) (unknown) Vital Signs (units unknown) (unknown) (unknown) (no date) (unknown) (unknown) Vital signs: (units unknown) (unknown) (unknown) (no date) (unknown) (unknown) [METOCLOPRAMIDE] (un its unknown) (unknown) (unknown) (no date) (unknown) (unknown) alcohol intake frequency: 3 or more drinks per day (units unknown) (unknown) (unknown) (no date) (unknown) (unknown) alcohol intake : current (units unknown) (unknown) (unknown) (no date) (unknown) (unknown) and below (units unknown) (unknown) (unknown) (no date) (unknown) (unknown) bupropion HCl 100 mg tablet sustained-release 12 hr (units unknown) (unknown) (unknown) (no date) (unknown) (unknown) bupropion HCl 100 mg tablet,12 hr 100 mg PO DAILY #90 ea 04/14/22 (units unknown) (unknown) (unknown) (no date) (unknown) (unknown) guarding or rebound. (units unknown) (unknown) (unknown) (no date) (unknown) (unknown) household memb ers: spouse (units unknown) (unknown) (unknown) (no date) (unknown) (unknown) intact (units unknown) (unknown) (unknown) (no date) (unknown) (unknown) latex [LATEX] Allergy Unknown Verified 11/01/22 20:34 (units unknown) (unknown) (unknown) (no date) (unknown) (unknown) lay still. (units unknown) (unknown) (unknown) (no date) (unknown) (unknown) membranes (units unknown) (unknown) (unknown) (no date) (unknown) (unknown) metoclopramide AdvReac Unknown DYSTONIA Verified 11/01/22 20:34 (units unknown) (unknown) (unknown) (no date) (unknown) (unknown) migraines, davis or electrolyte abnormalities, presenting today with sudden onset (units unknown) (unknown) (unknown) (no date) (unknown) (unknown) nausea vomitin g abdominal pain. It started around 2:00 p.m.. She is on able to (units unknown) (unknown) (unknown) (no date) (unknown) (unknown) potassium chlo ride 20 mEq 40 meq PO DAILY #90 tabs 04/14/22 (units unknown) (unknown) (unknown) (no date) (unknown) (unknown) potassium chlo ride 20 mEq tablet extended release (units unknown) (unknown) (unknown) (no date) (unknown) (unknown) promethazine 2 5 mg rectal 25 mg ND Q4-6H PRN nausea and 10/10/22 (units unknown) (unknown) (unknown) (no date) (unknown) (unknown) promethazine 2 5 mg suppository (units unknown) (unknown) (unknown) (no date) (unknown) (unknown) promethazine [PROMETHAZINE] Allergy Mild ERYTHEMA Verified 11/01/22 20:34 (units unknown) (unknown) (unknown) (no date) (unknown) (unknown) spironolactone 25 mg tablet 25 mg PO DAILY #90 tabs 04/14/22 (units unknown) (unknown) (unknown) (no date) (unknown) (unknown) spironolactone 25 mg tablet (units unknown) (unknown) (unknown) (no date) (unknown) (unknown) suppository vomiting #12 ea (units unknown) (unknown) (unknown) (no date) (unknown) (unknown) sustained-release (u nits unknown) (unknown) (unknown) (no date) (unknown) (unknown) tablet,extende d release (units unknown) (unknown) (unknown) (no date) (unknown) (unknown) tobacco type: vaping (units unknown) (unknown) Result panel 809 (unknown) (no date) (unknown) (unknown) 0 /ul (unknown ) (unknown) (no date) (unknown) (unknown) 0 /ul (unknown ) (unknown) (no date) (unknown) (unknown) 0.0 % (unknown ) (unknown) (no date) (unknown) (unknown) 0.1 % (unknown ) (unknown) (no date) (unknown) (unknown) 10.3 x10 3/ul (unknow n) (unknown) (no date) (unknown) (unknown) 13.4 % (unknown ) (unknown) (no date) (unknown) (unknown) 14.5 g/dl (unknown ) (unknown) (no date) (unknown) (unknown) 276 x10 3/ul (unknow n) (unknown) (no date) (unknown) (unknown) 31.2 pg (unknown ) (unknown) (no date) (unknown) (unknown) 34.3 % (unknown ) (unknown) (no date) (unknown) (unknown) 4.63 x10 6/ul (unknow n) (unknown) (no date) (unknown) (unknown) 42.2 % (unknown ) (unknown) (no date) (unknown) (unknown) 5.9 % (unknown ) (unknown) (no date) (unknown) (unknown) 6.0 % (unknown ) (unknown) (no date) (unknown) (unknown) 600 /ul (unknown ) (unknown) (no date) (unknown) (unknown) 600 /ul (unknown ) (unknown) (no date) (unknown) (unknown) 88.0 % (unknown ) (unknown) (no date) (unknown) (unknown) 9000 /ul (unknown ) (unknown) (no date) (unknown) (unknown) 91.1 fl (unknown ) Result panel 810 (unknown) (no date) (unknown) (unknown) 3.9 mmol/l (unknown ) Result panel 811 (unknown) (no date) (unknown) (unknown) > 60 ml/min (unknown ) (unknown) (no date) (unknown) (unknown) > 60 ml/min (unknown ) (unknown) (no date) (unknown) (unknown) 0.78 mg/dl (unknown ) (unknown) (no date) (unknown) (unknown) 1.2 (units unknown) (unknown) (unknown) (no date) (unknown) (unknown) 1.2 mg/dl (unknown ) (unknown) (no date) (unknown) (unknown) 10.0 mg/dl (unknown ) (unknown) (no date) (unknown) (unknown) 133 mg/dl (unknown ) (unknown) (no date) (unknown) (unknown) 133 mg/dl (unknown ) (unknown) (no date) (unknown) (unknown) 143 mmol/l (unknown ) (unknown) (no date) (unknown) (unknown) 15 mg/dl (unknown ) (unknown) (no date) (unknown) (unknown) 19.2 (units unknown) (unknown) (unknown) (no date) (unknown) (unknown) 29 mmol/l (unknown ) (unknown) (no date) (unknown) (unknown) 3.4 mmol/l (unknown ) (unknown) (no date) (unknown) (unknown) 32 iu/l (unknown ) (unknown) (no date) (unknown) (unknown) 35 iu/l (unknown ) (unknown) (no date) (unknown) (unknown) 4.4 g/dl (unknown ) (unknown) (no date) (unknown) (unknown) 5.2 g/dl (unknown ) (unknown) (no date) (unknown) (unknown) 60 u/l (unknown ) (unknown) (no date) (unknown) (unknown) 9.6 g/dl (unknown ) (unknown) (no date) (unknown) (unknown) 95 u/l (unknown ) (unknown) (no date) (unknown) (unknown) 98 mmol/l (unknown ) Result panel 812 (unknown) (no date) (unknown) (unknown) (no value) (units unknown) (unknown) (unknown) (no date) (unknown) (unknown) 11/01/2211/0111/01/22 Range/Units (units unknown) (unknown) (unknown) (no date) (unknown) (unknown) 11/01/22 20:39 (unit s unknown) (unknown) (unknown) (no date) (unknown) (unknown) 11/01/22 23:30 (unit s unknown) (unknown) (unknown) (no date) (unknown) (unknown) 11/01/22 (units unknown) (unknown) (unknown) (no date) (unknown) (unknown) 100 mg PO JEAN Y Qty: 90 0RF (units unknown) (unknown) (unknown) (no date) (unknown) (unknown) 20:29 11/01/22 (unit s unknown) (unknown) (unknown) (no date) (unknown) (unknown) 20:30 11/01/22 (unit s unknown) (unknown) (unknown) (no date) (unknown) (unknown) 20:30 (units unknown) (unknown) (unknown) (no date) (unknown) (unknown) 20:34 11/01/22 (unit s unknown) (unknown) (unknown) (no date) (unknown) (unknown) 21:50 11/01/22 (unit s unknown) (unknown) (unknown) (no date) (unknown) (unknown) 21:51 (units unknown) (unknown) (unknown) (no date) (unknown) (unknown) 23:30 23:30 23:30 (u nits unknown) (unknown) (unknown) (no date) (unknown) (unknown) 25 mg PO DAILY Qty: 90 0RF (units unknown) (unknown) (unknown) (no date) (unknown) (unknown) 25 mg ND PRN P RN (Reason: Nausea) (units unknown) (unknown) (unknown) (no date) (unknown) (unknown) 25 mg ND Q4-6H PRN (Reason: nausea and vomiting) Qty: 12 0RF (units unknown) (unknown) (unknown) (no date) (unknown) (unknown) [id number] (units unknown) (unknown) (unknown) (no date) (unknown) (unknown) 40 meq PO JEAN Y Qty: 90 0RF (units unknown) (unknown) (unknown) (no date) (unknown) (unknown) ABDOMEN: Soft, nontender. Normoactive bowel sounds all 4 quadrants. No (units unknown) (unknown) (unknown) (no date) (unknown) (unknown) ABLE TO (units unknown) (unknown) (unknown) (no date) (unknown) (unknown) ALT 35 H (<35) IU/L (units unknown) (unknown) (unknown) (no date) (unknown) (unknown) AST 32 (14-36) IU/L (units unknown) (unknown) (unknown) (no date) (unknown) (unknown) Abscess (units unknown) (unknown) (unknown) (no date) (unknown) (unknown) Age/Sex: 47 / F (uni ts unknown) (unknown) (unknown) (no date) (unknown) (unknown) Albumin 5.2 H (3.5-5.0) g/dL (units unknown) (unknown) (unknown) (no date) (unknown) (unknown) Albumin/Globul in Ratio 1.2 (1.0-2.8) (units unknown) (unknown) (unknown) (no date) (unknown) (unknown) Alcohol type: wine ( units unknown) (unknown) (unknown) (no date) (unknown) (unknown) Alkaline Phosphatase 95 (38-126) U/L (units unknown) (unknown) (unknown) (no date) (unknown) (unknown) Allergies (units unknown) (unknown) (unknown) (no date) (unknown) (unknown) Allergy/AdvRea c Type Severity Reaction Status Date / Time (units unknown) (unknown) (unknown) (no date) (unknown) (unknown) BUN 15 (7-17) mg/dL (units unknown) (unknown) (unknown) (no date) (unknown) (unknown) BUN/Creatinine Ratio 19.2 (6-22) (units unknown) (unknown) (unknown) (no date) (unknown) (unknown) Baso # (Auto) 0 (0-100) /uL (units unknown) (unknown) (unknown) (no date) (unknown) (unknown) Baso % (Auto) 0.1 (0-2) % (units unknown) (unknown) (unknown) (no date) (unknown) (unknown) Blood Pressure 155/94 H 155/94 H (units unknown) (unknown) (unknown) (no date) (unknown) (unknown) Blood Pressure 161/121 H (units unknown) (unknown) (unknown) (no date) (unknown) (unknown) Blood Pressure (unit s unknown) (unknown) (unknown) (no date) (unknown) (unknown) CARDIOVASCULAR : Regular rate and rhythm without murmurs, rubs or gallops. (units unknown) (unknown) (unknown) (no date) (unknown) (unknown) CBC Auto Diff [Complete Blood Count AUTO DIFF] Stat (units unknown) (unknown) (unknown) (no date) (unknown) (unknown) CMP [Comprehen sive Metabolic Panel] Stat (units unknown) (unknown) (unknown) (no date) (unknown) (unknown) Calcium 10.0 (8.4-10.2) mg/dL (units unknown) (unknown) (unknown) (no date) (unknown) (unknown) Carbon Dioxide 29 (22-32) mmol/L (units unknown) (unknown) (unknown) (no date) (unknown) (unknown) Chief complain t: Nausea/Vomiting/Trupti rrhea (units unknown) (unknown) (unknown) (no date) (unknown) (unknown) Chloride 98 (98-107) mmol/L (units unknown) (unknown) (unknown) (no date) (unknown) (unknown) Chronic abdomi nal pain (units unknown) (unknown) (unknown) (no date) (unknown) (unknown) Compazine 25 m g ND PRN PRN Nausea 07/06/22 07/06/22 (units unknown) (unknown) (unknown) (no date) (unknown) (unknown) Compazine suppository (units unknown) (unknown) (unknown) (no date) (unknown) (unknown) Course (units unknown) (unknown) (unknown) (no date) (unknown) (unknown) Creatinine 0.7 8 (0.52-1.04) mg/dL (units unknown) (unknown) (unknown) (no date) (unknown) (unknown) Cyclic vomitin g syndrome (units unknown) (unknown) (unknown) (no date) (unknown) (unknown) : 3 Acct:[id number] (units unknown) (unknown) (unknown) (no date) (unknown) (unknown) Date of Servic e: 11/01/22 (units unknown) (unknown) (unknown) (no date) (unknown) (unknown) Daughter Angio-edema (units unknown) (unknown) (unknown) (no date) (unknown) (unknown) Departure (units unknown) (unknown) (unknown) (no date) (unknown) (unknown) Diphenhydramin e HCl (Diphenhydramine 50 Mg/Ml Vial) 50 mg IM NOW ONE (units unknown) (unknown) (unknown) (no date) (unknown) (unknown) Diphenhydramin e HCl (Diphenhydramine 50 Mg/Ml Vial) 50 mg IV NOW ONE (units unknown) (unknown) (unknown) (no date) (unknown) (unknown) Discharge Plan (unit s unknown) (unknown) (unknown) (no date) (unknown) (unknown) Discontinued Medications (units unknown) (unknown) (unknown) (no date) (unknown) (unknown) Documented By: AP (u nits unknown) (unknown) (unknown) (no date) (unknown) (unknown) ED Orders (units unknown) (unknown) (unknown) (no date) (unknown) (unknown) ER Physician: Katy Peacock D.O. (units unknown) (unknown) (unknown) (no date) (unknown) (unknown) EXTREMITIES: N ormal range of motion, no clubbing or edema. Neurovascularly (units unknown) (unknown) (unknown) (no date) (unknown) (unknown) Emergency Report (un its unknown) (unknown) (unknown) (no date) (unknown) (unknown) Eos # (Auto) 0 (0-450) /uL (units unknown) (unknown) (unknown) (no date) (unknown) (unknown) Eos % (Auto) 0 .0 L (2-4) % (units unknown) (unknown) (unknown) (no date) (unknown) (unknown) Estimated GFR > 60 (>60) mL/min (units unknown) (unknown) (unknown) (no date) (unknown) (unknown) Exam (units unknown) (unknown) (unknown) (no date) (unknown) (unknown) Family History (units unknown) (unknown) (unknown) (no date) (unknown) (unknown) Family history of angioedema (units unknown) (unknown) (unknown) (no date) (unknown) (unknown) Father Hypertension (units unknown) (unknown) (unknown) (no date) (unknown) (unknown) GENERAL: Alert anxious flailing 47-year-old female, vomiting (units unknown) (unknown) (unknown) (no date) (unknown) (unknown) General (units unknown) (unknown) (unknown) (no date) (unknown) (unknown) Globulin 4.4 H (1.7-4.1) g/dL (units unknown) (unknown) (unknown) (no date) (unknown) (unknown) Glucose 133 H (70-100) mg/dL (units unknown) (unknown) (unknown) (no date) (unknown) (unknown) HEENT: Head atraumatic,EOMI, pupils reactive, face symmetric, [moist] mucous (units unknown) (unknown) (unknown) (no date) (unknown) (unknown) HPI - Nausea/Vomiting/Trupti rrhea (units unknown) (unknown) (unknown) (no date) (unknown) (unknown) HPI Narrative: (unit s unknown) (unknown) (unknown) (no date) (unknown) (unknown) Haloperidol (Haloperidol 5 Mg/Ml Vial) 2 mg IV NOW ONE (units unknown) (unknown) (unknown) (no date) (unknown) (unknown) Haloperidol (Haloperidol 5 Mg/Ml Vial) 5 mg IM NOW ONE (units unknown) (unknown) (unknown) (no date) (unknown) (unknown) Hct 42.2 (36-46) % ( units unknown) (unknown) (unknown) (no date) (unknown) (unknown) Hgb 14.5 (12.0-16.0) g/dL (units unknown) (unknown) (unknown) (no date) (unknown) (unknown) History of Pre sent Illness (units unknown) (unknown) (unknown) (no date) (unknown) (unknown) Home Medications (un its unknown) (unknown) (unknown) (no date) (unknown) (unknown) Hx of appendectomy ( units unknown) (unknown) (unknown) (no date) (unknown) (unknown) Hx of cholecystectomy (units unknown) (unknown) (unknown) (no date) (unknown) (unknown) Initial Vital Signs (units unknown) (unknown) (unknown) (no date) (unknown) (unknown) Initial Vital Signs: (units unknown) (unknown) (unknown) (no date) (unknown) (unknown) [address] [address] (units unknown) (unknown) (unknown) (no date) (unknown) (unknown) Sergo Martino M D [Primary Care Provider] (units unknown) (unknown) (unknown) (no date) (unknown) (unknown) Lab Data (units unknown) (unknown) (unknown) (no date) (unknown) (unknown) Lab Results (units unknown) (unknown) (unknown) (no date) (unknown) (unknown) Labs: (units unknown) (unknown) (unknown) (no date) (unknown) (unknown) Lactate (Lacti c Acid) Stat (units unknown) (unknown) (unknown) (no date) (unknown) (unknown) Lactate 3.9 H (0.7-2.1) mmol/L (units unknown) (unknown) (unknown) (no date) (unknown) (unknown) Last Admin: 11/01/22 22:01 Dose: 2 mg (units unknown) (unknown) (unknown) (no date) (unknown) (unknown) Last Admin: 11/01/22 22:01 Dose: 4 mg (units unknown) (unknown) (unknown) (no date) (unknown) (unknown) Last Admin: 11/01/22 22:01 Dose: 40 mg (units unknown) (unknown) (unknown) (no date) (unknown) (unknown) Last Admin: 11/01/22 22:25 Dose: 50 mg (units unknown) (unknown) (unknown) (no date) (unknown) (unknown) Lipase 60 (23- 300) U/L (units unknown) (unknown) (unknown) (no date) (unknown) (unknown) Lipase Stat (units unknown) (unknown) (unknown) (no date) (unknown) (unknown) Lorazepam (Lorazepam 2 Mg/Ml Inj) 2 mg IM NOW ONE (units unknown) (unknown) (unknown) (no date) (unknown) (unknown) Lorazepam (Lorazepam 2 Mg/Ml Inj) 2 mg IV NOW ONE (units unknown) (unknown) (unknown) (no date) (unknown) (unknown) Lymph # (Auto) 600 L (6481-3645) /uL (units unknown) (unknown) (unknown) (no date) (unknown) (unknown) Lymph % (Auto) 6.0 L (25-40) % (units unknown) (unknown) (unknown) (no date) (unknown) (unknown) MCH 31.2 (26-34) PG (units unknown) (unknown) (unknown) (no date) (unknown) (unknown) MCHC 34.3 (30-36) % (units unknown) (unknown) (unknown) (no date) (unknown) (unknown) MCV 91.1 (80-1 00) fL (units unknown) (unknown) (unknown) (no date) (unknown) (unknown) MDM - Nausea/Vomiting/Trupti rrhea (units unknown) (unknown) (unknown) (no date) (unknown) (unknown) 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 (units unknown) (unknown) (unknown) (no date) (unknown) (unknown) Marijuana use, continuous (units unknown) (unknown) (unknown) (no date) (unknown) (unknown) Medical Histor y (units unknown) (unknown) (unknown) (no date) (unknown) (unknown) Medication Instructions Recorded Confirmed (units unknown) (unknown) (unknown) (no date) (unknown) (unknown) Medication Instructions Recorded (units unknown) (unknown) (unknown) (no date) (unknown) (unknown) Mode of arriva l: EMS (units unknown) (unknown) (unknown) (no date) (unknown) (unknown) Larue # (Auto) 600 (0-900) /uL (units unknown) (unknown) (unknown) (no date) (unknown) (unknown) Larue % (Auto) 5.9 (3-14) % (units unknown) (unknown) (unknown) (no date) (unknown) (unknown) Mother Diabete s mellitus (units unknown) (unknown) (unknown) (no date) (unknown) (unknown) NEUROLOGICAL: Alert and oriented x4. (units unknown) (unknown) (unknown) (no date) (unknown) (unknown) Neut # (Auto) 9000 H (3925-6652) /uL (units unknown) (unknown) (unknown) (no date) (unknown) (unknown) Neut % (Auto) 88.0 H (50-75) % (units unknown) (unknown) (unknown) (no date) (unknown) (unknown) No Action (units unknown) (unknown) (unknown) (no date) (unknown) (unknown) Ondansetron HC l (Ondansetron 4 Mg Odt) 4 mg SL NOW PRN (units unknown) (unknown) (unknown) (no date) (unknown) (unknown) Ondansetron HC l (Ondansetron 4 Mg/2 Ml Inj) 4 mg IV NOW PRN (units unknown) (unknown) (unknown) (no date) (unknown) (unknown) Ordered: (units unknown) (unknown) (unknown) (no date) (unknown) (unknown) Orders (units unknown) (unknown) (unknown) (no date) (unknown) (unknown) Other Colon cancer ( units unknown) (unknown) (unknown) (no date) (unknown) (unknown) Oxygen Deliver y Method Room Air (units unknown) (unknown) (unknown) (no date) (unknown) (unknown) Oxygen Deliver y Method (units unknown) (unknown) (unknown) (no date) (unknown) (unknown) PRN Reason: Na usea And Vomiting (units unknown) (unknown) (unknown) (no date) (unknown) (unknown) PT [place] (units unknown) (unknown) (unknown) (no date) (unknown) (unknown) Pancreatitis (units unknown) (unknown) (unknown) (no date) (unknown) (unknown) Pantoprazole S odium (Pantoprazole 40 Mg Vial) 40 mg IV NOW ONE (units unknown) (unknown) (unknown) (no date) (unknown) (unknown) Patient History (uni ts unknown) (unknown) (unknown) (no date) (unknown) (unknown) Patient is a 47-year-old female with history of cyclic vomiting, abdominal (units unknown) (unknown) (unknown) (no date) (unknown) (unknown) Patient: Huyen Castro MR#: [id number] (units unknown) (unknown) (unknown) (no date) (unknown) (unknown) Plt Count 276 (150-400) X103/uL (units unknown) (unknown) (unknown) (no date) (unknown) (unknown) Potassium 3.4 (3.4-5.1) mmol/L (units unknown) (unknown) (unknown) (no date) (unknown) (unknown) Prescriptions: (unit s unknown) (unknown) (unknown) (no date) (unknown) (unknown) Previous Rx's (units unknown) (unknown) (unknown) (no date) (unknown) (unknown) Pulse Oximetry 85 L 98 (units unknown) (unknown) (unknown) (no date) (unknown) (unknown) Pulse Oximetry 89 L 11/01/22 20:29 (units unknown) (unknown) (unknown) (no date) (unknown) (unknown) Pulse Oximetry 94 (u nits unknown) (unknown) (unknown) (no date) (unknown) (unknown) Pulse Oximetry 97 89 L (units unknown) (unknown) (unknown) (no date) (unknown) (unknown) Pulse Rate 44 L 79 ( units unknown) (unknown) (unknown) (no date) (unknown) (unknown) Pulse Rate 76 (units unknown) (unknown) (unknown) (no date) (unknown) (unknown) Pulse Rate 79 (units unknown) (unknown) (unknown) (no date) (unknown) (unknown) RBC 4.63 (4.0- 5.2) X106/uL (units unknown) (unknown) (unknown) (no date) (unknown) (unknown) RDW 13.4 (11.6-14.8) % (units unknown) (unknown) (unknown) (no date) (unknown) (unknown) RESPIRATORY: B reath sounds equal bilaterally, no wheezes rales or rhonchi. (units unknown) (unknown) (unknown) (no date) (unknown) (unknown) ROS Unobtainab le: All systems reviewed + are unremarkable except as noted in HPI (units unknown) (unknown) (unknown) (no date) (unknown) (unknown) Referrals: (units unknown) (unknown) (unknown) (no date) (unknown) (unknown) Related Data (units unknown) (unknown) (unknown) (no date) (unknown) (unknown) Respiratory Rate 22 (units unknown) (unknown) (unknown) (no date) (unknown) (unknown) Respiratory Rate (un its unknown) (unknown) (unknown) (no date) (unknown) (unknown) Review of Systems (u nits unknown) (unknown) (unknown) (no date) (unknown) (unknown) SKIN: Warm, dr y, no laceration, no petechiae, no rashes or lesions. (units unknown) (unknown) (unknown) (no date) (unknown) (unknown) Signed By: (units unknown) (unknown) (unknown) (no date) (unknown) (unknown) Smoking Status : Current every day smoker (units unknown) (unknown) (unknown) (no date) (unknown) (unknown) Social History (units unknown) (unknown) (unknown) (no date) (unknown) (unknown) Sodium 143 (137-145) mmol/L (units unknown) (unknown) (unknown) (no date) (unknown) (unknown) Sodium Chlorid e (Normal Saline 0.9%) 1,000 mls @ 1,000 mls/hr IV BOLUS ONE (units unknown) (unknown) (unknown) (no date) (unknown) (unknown) Source: patien t and EMS (units unknown) (unknown) (unknown) (no date) (unknown) (unknown) Stated complai nt: cyclic vomiting (units unknown) (unknown) (unknown) (no date) (unknown) (unknown) Stop: 11/01/22 20:39 (units unknown) (unknown) (unknown) (no date) (unknown) (unknown) Stop: 11/01/22 20:40 (units unknown) (unknown) (unknown) (no date) (unknown) (unknown) Stop: 11/01/22 21:37 (units unknown) (unknown) (unknown) (no date) (unknown) (unknown) Stop: 11/01/22 21:54 (units unknown) (unknown) (unknown) (no date) (unknown) (unknown) Stop: 11/01/22 22:17 (units unknown) (unknown) (unknown) (no date) (unknown) (unknown) Substance Use Type: former substance user, marijuana and methamphetamine (units unknown) (unknown) (unknown) (no date) (unknown) (unknown) Surgical Histo ry (units unknown) (unknown) (unknown) (no date) (unknown) (unknown) TAKE ND (units unknown) (unknown) (unknown) (no date) (unknown) (unknown) TO IV SITE (units unknown) (unknown) (unknown) (no date) (unknown) (unknown) Temperature 98.6 F ( units unknown) (unknown) (unknown) (no date) (unknown) (unknown) Temperature (units unknown) (unknown) (unknown) (no date) (unknown) (unknown) Time Seen by Provider: 11/01/22 20:38 (units unknown) (unknown) (unknown) (no date) (unknown) (unknown) Total Bilirubi n 1.2 (0.2-1.3) mg/dL (units unknown) (unknown) (unknown) (no date) (unknown) (unknown) Total Protein 9.6 H (6.3-8.2) g/dL (units unknown) (unknown) (unknown) (no date) (unknown) (unknown) Urine Drug Scr een, Rapid Stat (units unknown) (unknown) (unknown) (no date) (unknown) (unknown) Vital Signs - 8 hr ( units unknown) (unknown) (unknown) (no date) (unknown) (unknown) Vital Signs (units unknown) (unknown) (unknown) (no date) (unknown) (unknown) Vital signs: (units unknown) (unknown) (unknown) (no date) (unknown) (unknown) WBC 10.3 (4.5- 11.0) X103/uL (units unknown) (unknown) (unknown) (no date) (unknown) (unknown) [Embedded Imag e Not Available] (units unknown) (unknown) (unknown) (no date) (unknown) (unknown) [METOCLOPRAMIDE] (un its unknown) (unknown) (unknown) (no date) (unknown) (unknown) alcohol intake frequency: 3 or more drinks per day (units unknown) (unknown) (unknown) (no date) (unknown) (unknown) alcohol intake : current (units unknown) (unknown) (unknown) (no date) (unknown) (unknown) and below (units unknown) (unknown) (unknown) (no date) (unknown) (unknown) bupropion HCl 100 mg tablet sustained-release 12 hr (units unknown) (unknown) (unknown) (no date) (unknown) (unknown) bupropion HCl 100 mg tablet,12 hr 100 mg PO DAILY #90 ea 04/14/22 (units unknown) (unknown) (unknown) (no date) (unknown) (unknown) guarding or rebound. (units unknown) (unknown) (unknown) (no date) (unknown) (unknown) household memb ers: spouse (units unknown) (unknown) (unknown) (no date) (unknown) (unknown) intact (units unknown) (unknown) (unknown) (no date) (unknown) (unknown) latex [LATEX] Allergy Unknown Verified 11/01/22 20:34 (units unknown) (unknown) (unknown) (no date) (unknown) (unknown) lay still. (units unknown) (unknown) (unknown) (no date) (unknown) (unknown) membranes (units unknown) (unknown) (unknown) (no date) (unknown) (unknown) metoclopramide AdvReac Unknown DYSTONIA Verified 11/01/22 20:34 (units unknown) (unknown) (unknown) (no date) (unknown) (unknown) migraines, davis or electrolyte abnormalities, presenting today with sudden onset (units unknown) (unknown) (unknown) (no date) (unknown) (unknown) nausea vomitin g abdominal pain. It started around 2:00 p.m.. She is unable to (units unknown) (unknown) (unknown) (no date) (unknown) (unknown) potassium chlo ride 20 mEq 40 meq PO DAILY #90 tabs 04/14/22 (units unknown) (unknown) (unknown) (no date) (unknown) (unknown) potassium chlo ride 20 mEq tablet extended release (units unknown) (unknown) (unknown) (no date) (unknown) (unknown) promethazine 2 5 mg rectal 25 mg ND Q4-6H PRN nausea and 10/10/22 (units unknown) (unknown) (unknown) (no date) (unknown) (unknown) promethazine 2 5 mg suppository (units unknown) (unknown) (unknown) (no date) (unknown) (unknown) promethazine [PROMETHAZINE] Allergy Mild ERYTHEMA Verified 11/01/22 20:34 (units unknown) (unknown) (unknown) (no date) (unknown) (unknown) spironolactone 25 mg tablet 25 mg PO DAILY #90 tabs 04/14/22 (units unknown) (unknown) (unknown) (no date) (unknown) (unknown) spironolactone 25 mg tablet (units unknown) (unknown) (unknown) (no date) (unknown) (unknown) suppository vomiting #12 ea (units unknown) (unknown) (unknown) (no date) (unknown) (unknown) sustained-release (u nits unknown) (unknown) (unknown) (no date) (unknown) (unknown) tablet,extende d release (units unknown) (unknown) (unknown) (no date) (unknown) (unknown) tobacco type: vaping (units unknown) (unknown) Result panel 813 (unknown) (no date) (unknown) (unknown) 1.6 mmol/l (unknown ) Result panel 814 (unknown) (no date) (unknown) (unknown) (no value) (units unknown) (unknown) (unknown) (no date) (unknown) (unknown) *Continue to t joy medications as directed (units unknown) (unknown) (unknown) (no date) (unknown) (unknown) *Follow up wit h your primary care provider in 2-3 days or call [phone] (units unknown) (unknown) (unknown) (no date) (unknown) (unknown) *Return to ER if you should have persistent vomiting increased abdominal pain (units unknown) (unknown) (unknown) (no date) (unknown) (unknown) *What to do: P lease increase fluids as tolerated. 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, abdominal migraine (units unknown) (unknown) (unknown) (no date) (unknown) (unknown) 00:00 11/02/22 (unit s unknown) (unknown) (unknown) (no date) (unknown) (unknown) 00:00 (units unknown) (unknown) (unknown) (no date) (unknown) (unknown) 01:55 (units unknown) (unknown) (unknown) (no date) (unknown) (unknown) 11/01/2211/0111/01/22 Range/Units (units unknown) (unknown) (unknown) (no date) (unknown) (unknown) 11/01/22 20:39 (unit s unknown) (unknown) (unknown) (no date) (unknown) (unknown) 11/01/22 23:30 (unit s unknown) (unknown) (unknown) (no date) (unknown) (unknown) 11/01/22 (units unknown) (unknown) (unknown) (no date) (unknown) (unknown) 11/02/22 Range/Units (units unknown) (unknown) (unknown) (no date) (unknown) (unknown) 11/02/22 (units unknown) (unknown) (unknown) (no date) (unknown) (unknown) 100 mg PO JEAN Y Qty: 90 0RF (units unknown) (unknown) (unknown) (no date) (unknown) (unknown) 20:29 11/01/22 (unit s unknown) (unknown) (unknown) (no date) (unknown) (unknown) 20:30 11/01/22 (unit s unknown) (unknown) (unknown) (no date) (unknown) (unknown) 20:30 (units unknown) (unknown) (unknown) (no date) (unknown) (unknown) 20:34 11/01/22 (unit s unknown) (unknown) (unknown) (no date) (unknown) (unknown) 21:50 11/01/22 (unit s unknown) (unknown) (unknown) (no date) (unknown) (unknown) 21:51 11/01/22 (unit s unknown) (unknown) (unknown) (no date) (unknown) (unknown) 21:51 (units unknown) (unknown) (unknown) (no date) (unknown) (unknown) 21:54 11/01/22 (unit s unknown) (unknown) (unknown) (no date) (unknown) (unknown) 22:06 (units unknown) (unknown) (unknown) (no date) (unknown) (unknown) 22:44 11/01/22 (unit s unknown) (unknown) (unknown) (no date) (unknown) (unknown) 23:00 11/01/22 (unit s unknown) (unknown) (unknown) (no date) (unknown) (unknown) 23:01 (units unknown) (unknown) (unknown) (no date) (unknown) (unknown) 23:08 11/01/22 (unit s unknown) (unknown) (unknown) (no date) (unknown) (unknown) 23:30 11/01/22 (unit s unknown) (unknown) (unknown) (no date) (unknown) (unknown) 23:30 23:30 23:30 (u nits unknown) (unknown) (unknown) (no date) (unknown) (unknown) 23:32 (units unknown) (unknown) (unknown) (no date) (unknown) (unknown) 25 mg PO DAILY Qty: 90 0RF (units unknown) (unknown) (unknown) (no date) (unknown) (unknown) 25 mg ND PRN P RN (Reason: Nausea) (units unknown) (unknown) (unknown) (no date) (unknown) (unknown) 25 mg ND Q4-6H PRN (Reason: nausea and vomiting) Qty: 12 0RF (units unknown) (unknown) (unknown) (no date) (unknown) (unknown) [id number] (units unknown) (unknown) (unknown) (no date) (unknown) (unknown) 40 meq PO JEAN Y Qty: 90 0RF (units unknown) (unknown) (unknown) (no date) (unknown) (unknown) ABDOMEN: Soft, nontender. Normoactive bowel sounds all 4 quadrants. No (units unknown) (unknown) (unknown) (no date) (unknown) (unknown) ABLE TO (units unknown) (unknown) (unknown) (no date) (unknown) (unknown) ALT (<35) IU/L (unit s unknown) (unknown) (unknown) (no date) (unknown) (unknown) ALT 35 H (<35) IU/L (units unknown) (unknown) (unknown) (no date) (unknown) (unknown) AST (14-36) IU/L (un its unknown) (unknown) (unknown) (no date) (unknown) (unknown) AST 32 (14-36) IU/L (units unknown) (unknown) (unknown) (no date) (unknown) (unknown) Abscess (units unknown) (unknown) (unknown) (no date) (unknown) (unknown) Activity Restrictions/Additi onal Instructions: (units unknown) (unknown) (unknown) (no date) (unknown) (unknown) Age/Sex: 47 / F (uni ts unknown) (unknown) (unknown) (no date) (unknown) (unknown) Albumin (3.5-5 .0) g/dL (units unknown) (unknown) (unknown) (no date) (unknown) (unknown) Albumin 5.2 H (3.5-5.0) g/dL (units unknown) (unknown) (unknown) (no date) (unknown) (unknown) Albumin/Globul in Ratio (1.0-2.8) (units unknown) (unknown) (unknown) (no date) (unknown) (unknown) Albumin/Globul in Ratio 1.2 (1.0-2.8) (units unknown) (unknown) (unknown) (no date) (unknown) (unknown) Alcohol type: wine ( units unknown) (unknown) (unknown) (no date) (unknown) (unknown) Alkaline Phosphatase (38-126) U/L (units unknown) (unknown) (unknown) (no date) (unknown) (unknown) Alkaline Phosphatase 95 (38-126) U/L (units unknown) (unknown) (unknown) (no date) (unknown) (unknown) Allergies (units unknown) (unknown) (unknown) (no date) (unknown) (unknown) Allergy/AdvRea c Type Severity Reaction Status Date / Time (units unknown) (unknown) (unknown) (no date) (unknown) (unknown) BUN (7-17) mg/dL (un its unknown) (unknown) (unknown) (no date) (unknown) (unknown) BUN 15 (7-17) mg/dL (units unknown) (unknown) (unknown) (no date) (unknown) (unknown) BUN/Creatinine Ratio (6-22) (units unknown) (unknown) (unknown) (no date) (unknown) (unknown) BUN/Creatinine Ratio 19.2 (6-22) (units unknown) (unknown) (unknown) (no date) (unknown) (unknown) Baso # (Auto) (0-100) /uL (units unknown) (unknown) (unknown) (no date) (unknown) (unknown) Baso # (Auto) 0 (0-100) /uL (units unknown) (unknown) (unknown) (no date) (unknown) (unknown) Baso % (Auto) (0-2) % (units unknown) (unknown) (unknown) (no date) (unknown) (unknown) Baso % (Auto) 0.1 (0-2) % (units unknown) (unknown) (unknown) (no date) (unknown) (unknown) Blood Pressure 147/106 H (units unknown) (unknown) (unknown) (no date) (unknown) (unknown) Blood Pressure 152/98 H 170/95 H (units unknown) (unknown) (unknown) (no date) (unknown) (unknown) Blood Pressure 155/94 H 155/94 H (units unknown) (unknown) (unknown) (no date) (unknown) (unknown) Blood Pressure 161/121 H (units unknown) (unknown) (unknown) (no date) (unknown) (unknown) Blood Pressure 170/95 H (units unknown) (unknown) (unknown) (no date) (unknown) (unknown) Blood Pressure (unit s unknown) (unknown) (unknown) (no date) (unknown) (unknown) CARDIOVASCULAR : Regular rate and rhythm without murmurs, rubs or gallops. (units unknown) (unknown) (unknown) (no date) (unknown) (unknown) CBC Auto Diff [Complete Blood Count AUTO DIFF] Stat (units unknown) (unknown) (unknown) (no date) (unknown) (unknown) CMP [Comprehen sive Metabolic Panel] Stat (units unknown) (unknown) (unknown) (no date) (unknown) (unknown) Calcium (8.4-1 0.2) mg/dL (units unknown) (unknown) (unknown) (no date) (unknown) (unknown) Calcium 10.0 (8.4-10.2) mg/dL (units unknown) (unknown) (unknown) (no date) (unknown) (unknown) Carbon Dioxide (22-32) mmol/L (units unknown) (unknown) (unknown) (no date) (unknown) (unknown) Carbon Dioxide 29 (22-32) mmol/L (units unknown) (unknown) (unknown) (no date) (unknown) (unknown) Chief complain t: Nausea/Vomiting/Trupti rrhea (units unknown) (unknown) (unknown) (no date) (unknown) (unknown) Chloride (98-1 07) mmol/L (units unknown) (unknown) (unknown) (no date) (unknown) (unknown) Chloride 98 (98-107) mmol/L (units unknown) (unknown) (unknown) (no date) (unknown) (unknown) Chronic abdomi nal pain (units unknown) (unknown) (unknown) (no date) (unknown) (unknown) Clinical Impression: (units unknown) (unknown) (unknown) (no date) (unknown) (unknown) Compazine 25 m g ND PRN PRN Nausea 07/06/22 07/06/22 (units unknown) (unknown) (unknown) (no date) (unknown) (unknown) Compazine suppository (units unknown) (unknown) (unknown) (no date) (unknown) (unknown) Course (units unknown) (unknown) (unknown) (no date) (unknown) (unknown) Creatinine (0.52-1.04) mg/dL (units unknown) (unknown) (unknown) (no date) (unknown) (unknown) Creatinine 0.7 8 (0.52-1.04) mg/dL (units unknown) (unknown) (unknown) (no date) (unknown) (unknown) Cyclic vomitin g syndrome (units unknown) (unknown) (unknown) (no date) (unknown) (unknown) : 3 Acct:[id number] (units unknown) (unknown) (unknown) (no date) (unknown) (unknown) Date of Servic e: 11/01/22 (units unknown) (unknown) (unknown) (no date) (unknown) (unknown) Daughter Angio-edema (units unknown) (unknown) (unknown) (no date) (unknown) (unknown) Departure (units unknown) (unknown) (unknown) (no date) (unknown) (unknown) Diphenhydramin e HCl (Diphenhydramine 50 Mg/Ml Vial) 50 mg IM NOW ONE (units unknown) (unknown) (unknown) (no date) (unknown) (unknown) Diphenhydramin e HCl (Diphenhydramine 50 Mg/Ml Vial) 50 mg IV NOW ONE (units unknown) (unknown) (unknown) (no date) (unknown) (unknown) Discharge Plan (unit s unknown) (unknown) (unknown) (no date) (unknown) (unknown) Discontinued Medications (units unknown) (unknown) (unknown) (no date) (unknown) (unknown) Documented By: AP (u nits unknown) (unknown) (unknown) (no date) (unknown) (unknown) ED Orders (units unknown) (unknown) (unknown) (no date) (unknown) (unknown) ER Physician: Katy Peacock D.O. (units unknown) (unknown) (unknown) (no date) (unknown) (unknown) EXTREMITIES: N ormal range of motion, no clubbing or edema. Neurovascularly (units unknown) (unknown) (unknown) (no date) (unknown) (unknown) Emergency Report (un its unknown) (unknown) (unknown) (no date) (unknown) (unknown) Eos # (Auto) (0-450) /uL (units unknown) (unknown) (unknown) (no date) (unknown) (unknown) Eos # (Auto) 0 (0-450) /uL (units unknown) (unknown) (unknown) (no date) (unknown) (unknown) Eos % (Auto) ( 2-4) % (units unknown) (unknown) (unknown) (no date) (unknown) (unknown) Eos % (Auto) 0 .0 L (2-4) % (units unknown) (unknown) (unknown) (no date) (unknown) (unknown) Estimated GFR > 60 (>60) mL/min (units unknown) (unknown) (unknown) (no date) (unknown) (unknown) Estimated GFR (>60) mL/min (units unknown) (unknown) (unknown) (no date) (unknown) (unknown) Exam (units unknown) (unknown) (unknown) (no date) (unknown) (unknown) Family History (units unknown) (unknown) (unknown) (no date) (unknown) (unknown) Family history of angioedema (units unknown) (unknown) (unknown) (no date) (unknown) (unknown) Father Hypertension (units unknown) (unknown) (unknown) (no date) (unknown) (unknown) GENERAL: Alert anxious flailing 47-year-old female, vomiting (units unknown) (unknown) (unknown) (no date) (unknown) (unknown) General (units unknown) (unknown) (unknown) (no date) (unknown) (unknown) Globulin (1.7- 4.1) g/dL (units unknown) (unknown) (unknown) (no date) (unknown) (unknown) Globulin 4.4 H (1.7-4.1) g/dL (units unknown) (unknown) (unknown) (no date) (unknown) (unknown) Glucose (70-10 0) mg/dL (units unknown) (unknown) (unknown) (no date) (unknown) (unknown) Glucose 133 H (70-100) mg/dL (units unknown) (unknown) (unknown) (no date) (unknown) (unknown) HEENT: Head atraumatic,EOMI, pupils reactive, face symmetric, [moist] mucous (units unknown) (unknown) (unknown) (no date) (unknown) (unknown) HPI - Nausea/Vomiting/Trupti rrhea (units unknown) (unknown) (unknown) (no date) (unknown) (unknown) HPI Narrative: (unit s unknown) (unknown) (unknown) (no date) (unknown) (unknown) Haloperidol (Haloperidol 5 Mg/Ml Vial) 2 mg IV NOW ONE (units unknown) (unknown) (unknown) (no date) (unknown) (unknown) Haloperidol (Haloperidol 5 Mg/Ml Vial) 5 mg IM NOW ONE (units unknown) (unknown) (unknown) (no date) (unknown) (unknown) Hct (36-46) % (units unknown) (unknown) (unknown) (no date) (unknown) (unknown) Hct 42.2 (36-46) % ( units unknown) (unknown) (unknown) (no date) (unknown) (unknown) Hgb (12.0-16.0 ) g/dL (units unknown) (unknown) (unknown) (no date) (unknown) (unknown) Hgb 14.5 (12.0-16.0) g/dL (units unknown) (unknown) (unknown) (no date) (unknown) (unknown) History of Pre sent Illness (units unknown) (unknown) (unknown) (no date) (unknown) (unknown) Home Medications (un its unknown) (unknown) (unknown) (no date) (unknown) (unknown) Hx of appendectomy ( units unknown) (unknown) (unknown) (no date) (unknown) (unknown) Hx of cholecystectomy (units unknown) (unknown) (unknown) (no date) (unknown) (unknown) Initial Vital Signs (units unknown) (unknown) (unknown) (no date) (unknown) (unknown) Initial Vital Signs: (units unknown) (unknown) (unknown) (no date) (unknown) (unknown) Instructions: Nausea and Vomiting-Adult (units unknown) (unknown) (unknown) (no date) (unknown) (unknown) [address] [address] (units unknown) (unknown) (unknown) (no date) (unknown) (unknown) Sergo Martino M D [Primary Care Provider] (units unknown) (unknown) (unknown) (no date) (unknown) (unknown) Lab Data (units unknown) (unknown) (unknown) (no date) (unknown) (unknown) Lab Results (units unknown) (unknown) (unknown) (no date) (unknown) (unknown) Labs: (units unknown) (unknown) (unknown) (no date) (unknown) (unknown) Lactate (Lacti c Acid) Stat (units unknown) (unknown) (unknown) (no date) (unknown) (unknown) Lactate 1.6 (0.7-2.1) mmol/L (units unknown) (unknown) (unknown) (no date) (unknown) (unknown) Lactate 3.9 H (0.7-2.1) mmol/L (units unknown) (unknown) (unknown) (no date) (unknown) (unknown) Last Admin: 11/01/22 22:01 Dose: 2 mg (units unknown) (unknown) (unknown) (no date) (unknown) (unknown) Last Admin: 11/01/22 22:01 Dose: 4 mg (units unknown) (unknown) (unknown) (no date) (unknown) (unknown) Last Admin: 11/01/22 22:01 Dose: 40 mg (units unknown) (unknown) (unknown) (no date) (unknown) (unknown) Last Admin: 11/01/22 22:25 Dose: 50 mg (units unknown) (unknown) (unknown) (no date) (unknown) (unknown) Lipase (23-300) U/L (units unknown) (unknown) (unknown) (no date) (unknown) (unknown) Lipase 60 (23- 300) U/L (units unknown) (unknown) (unknown) (no date) (unknown) (unknown) Lipase Stat (units unknown) (unknown) (unknown) (no date) (unknown) (unknown) Lorazepam (Lorazepam 2 Mg/Ml Inj) 2 mg IM NOW ONE (units unknown) (unknown) (unknown) (no date) (unknown) (unknown) Lorazepam (Lorazepam 2 Mg/Ml Inj) 2 mg IV NOW ONE (units unknown) (unknown) (unknown) (no date) (unknown) (unknown) Lymph # (Auto) (3454-1812) /uL (units unknown) (unknown) (unknown) (no date) (unknown) (unknown) Lymph # (Auto) 600 L (2892-7410) /uL (units unknown) (unknown) (unknown) (no date) (unknown) (unknown) Lymph % (Auto) (25-40) % (units unknown) (unknown) (unknown) (no date) (unknown) (unknown) Lymph % (Auto) 6.0 L (25-40) % (units unknown) (unknown) (unknown) (no date) (unknown) (unknown) MCH (26-34) PG (unit s unknown) (unknown) (unknown) (no date) (unknown) (unknown) MCH 31.2 (26-34) PG (units unknown) (unknown) (unknown) (no date) (unknown) (unknown) MCHC (30-36) % (unit s unknown) (unknown) (unknown) (no date) (unknown) (unknown) MCHC 34.3 (30-36) % (units unknown) (unknown) (unknown) (no date) (unknown) (unknown) MCV (80-100) fL (uni ts unknown) (unknown) (unknown) (no date) (unknown) (unknown) MCV 91.1 (80-1 00) fL (units unknown) (unknown) (unknown) (no date) (unknown) (unknown) MDM - Nausea/Vomiting/Trupti rrhea (units unknown) (unknown) (unknown) (no date) (unknown) (unknown) MDM Narrative (units unknown) (unknown) (unknown) (no date) (unknown) (unknown) 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 (units unknown) (unknown) (unknown) (no date) (unknown) (unknown) Marijuana use, continuous (units unknown) (unknown) (unknown) (no date) (unknown) (unknown) Medical Histor y (units unknown) (unknown) (unknown) (no date) (unknown) (unknown) Medical decisi on making narrative: (units unknown) (unknown) (unknown) (no date) (unknown) (unknown) Medication Instructions Recorded Confirmed (units unknown) (unknown) (unknown) (no date) (unknown) (unknown) Medication Instructions Recorded (units unknown) (unknown) (unknown) (no date) (unknown) (unknown) Mode of arriva l: EMS (units unknown) (unknown) (unknown) (no date) (unknown) (unknown) Larue # (Auto) (0-900) /uL (units unknown) (unknown) (unknown) (no date) (unknown) (unknown) Larue # (Auto) 600 (0-900) /uL (units unknown) (unknown) (unknown) (no date) (unknown) (unknown) Larue % (Auto) (3-14) % (units unknown) (unknown) (unknown) (no date) (unknown) (unknown) Larue % (Auto) 5.9 (3-14) % (units unknown) (unknown) (unknown) (no date) (unknown) (unknown) Mother Diabete s mellitus (units unknown) (unknown) (unknown) (no date) (unknown) (unknown) NEUROLOGICAL: Alert and oriented x4. (units unknown) (unknown) (unknown) (no date) (unknown) (unknown) Neut # (Auto) (1263-3543) /uL (units unknown) (unknown) (unknown) (no date) (unknown) (unknown) Neut # (Auto) 9000 H (5744-2554) /uL (units unknown) (unknown) (unknown) (no date) (unknown) (unknown) Neut % (Auto) (50-75) % (units unknown) (unknown) (unknown) (no date) (unknown) (unknown) Neut % (Auto) 88.0 H (50-75) % (units unknown) (unknown) (unknown) (no date) (unknown) (unknown) No Action (units unknown) (unknown) (unknown) (no date) (unknown) (unknown) Ondansetron HC l (Ondansetron 4 Mg Odt) 4 mg SL NOW PRN (units unknown) (unknown) (unknown) (no date) (unknown) (unknown) Ondansetron HC l (Ondansetron 4 Mg/2 Ml Inj) 4 mg IV NOW PRN (units unknown) (unknown) (unknown) (no date) (unknown) (unknown) Ordered: (units unknown) (unknown) (unknown) (no date) (unknown) (unknown) Orders (units unknown) (unknown) (unknown) (no date) (unknown) (unknown) Other Colon cancer ( units unknown) (unknown) (unknown) (no date) (unknown) (unknown) Oxygen Deliver y Method Room Air (units unknown) (unknown) (unknown) (no date) (unknown) (unknown) Oxygen Deliver y Method (units unknown) (unknown) (unknown) (no date) (unknown) (unknown) PRN Reason: Na usea And Vomiting (units unknown) (unknown) (unknown) (no date) (unknown) (unknown) PT STATES (units unknown) (unknown) (unknown) (no date) (unknown) (unknown) Pancreatitis (units unknown) (unknown) (unknown) (no date) (unknown) (unknown) Pantoprazole S odium (Pantoprazole 40 Mg Vial) 40 mg IV NOW ONE (units unknown) (unknown) (unknown) (no date) (unknown) (unknown) Patient 47-yea r-old female with history of cyclic vomiting presenting today with (units unknown) (unknown) (unknown) (no date) (unknown) (unknown) Patient Disposition: Home (units unknown) (unknown) (unknown) (no date) (unknown) (unknown) Patient History (uni ts unknown) (unknown) (unknown) (no date) (unknown) (unknown) Patient is a 47-year-old female with history of cyclic vomiting, abdominal (units unknown) (unknown) (unknown) (no date) (unknown) (unknown) Patient: Huyen Castro MR#: [id number] (units unknown) (unknown) (unknown) (no date) (unknown) (unknown) Plt Count (150 -400) X103/uL (units unknown) (unknown) (unknown) (no date) (unknown) (unknown) Plt Count 276 (150-400) X103/uL (units unknown) (unknown) (unknown) (no date) (unknown) (unknown) Potassium (3.4 -5.1) mmol/L (units unknown) (unknown) (unknown) (no date) (unknown) (unknown) Potassium 3.4 (3.4-5.1) mmol/L (units unknown) (unknown) (unknown) (no date) (unknown) (unknown) Prescriptions: (unit s unknown) (unknown) (unknown) (no date) (unknown) (unknown) Previous Rx's (units unknown) (unknown) (unknown) (no date) (unknown) (unknown) Pulse Oximetry 100 89 L 55 L (units unknown) (unknown) (unknown) (no date) (unknown) (unknown) Pulse Oximetry 85 L 98 (units unknown) (unknown) (unknown) (no date) (unknown) (unknown) Pulse Oximetry 89 L 11/01/22 20:29 (units unknown) (unknown) (unknown) (no date) (unknown) (unknown) Pulse Oximetry 94 100 (units unknown) (unknown) (unknown) (no date) (unknown) (unknown) Pulse Oximetry 95 (u nits unknown) (unknown) (unknown) (no date) (unknown) (unknown) Pulse Oximetry 97 89 L (units unknown) (unknown) (unknown) (no date) (unknown) (unknown) Pulse Oximetry 97 (u nits unknown) (unknown) (unknown) (no date) (unknown) (unknown) Pulse Rate 44 L 79 ( units unknown) (unknown) (unknown) (no date) (unknown) (unknown) Pulse Rate 76 (units unknown) (unknown) (unknown) (no date) (unknown) (unknown) Pulse Rate 79 82 (un its unknown) (unknown) (unknown) (no date) (unknown) (unknown) Pulse Rate 80 (units unknown) (unknown) (unknown) (no date) (unknown) (unknown) Pulse Rate (units unknown) (unknown) (unknown) (no date) (unknown) (unknown) RBC (4.0-5.2) X106/uL (units unknown) (unknown) (unknown) (no date) (unknown) (unknown) RBC 4.63 (4.0- 5.2) X106/uL (units unknown) (unknown) (unknown) (no date) (unknown) (unknown) RDW (11.6-14.8) % (u nits unknown) (unknown) (unknown) (no date) (unknown) (unknown) RDW 13.4 (11.6-14.8) % (units unknown) (unknown) (unknown) (no date) (unknown) (unknown) RESPIRATORY: B reath sounds equal bilaterally, no wheezes rales or rhonchi. (units unknown) (unknown) (unknown) (no date) (unknown) (unknown) ROS Unobtainab le: All systems reviewed + are unremarkable except as noted in HPI (units unknown) (unknown) (unknown) (no date) (unknown) (unknown) Referrals: (units unknown) (unknown) (unknown) (no date) (unknown) (unknown) Related Data (units unknown) (unknown) (unknown) (no date) (unknown) (unknown) Respiratory Rate 22 (units unknown) (unknown) (unknown) (no date) (unknown) (unknown) Respiratory Rate (un its unknown) (unknown) (unknown) (no date) (unknown) (unknown) Review of Systems (u nits unknown) (unknown) (unknown) (no date) (unknown) (unknown) SKIN: Warm, dr y, no laceration, no petechiae, no rashes or lesions. (units unknown) (unknown) (unknown) (no date) (unknown) (unknown) Signed By: (units unknown) (unknown) (unknown) (no date) (unknown) (unknown) Smoking Status : Current every day smoker (units unknown) (unknown) (unknown) (no date) (unknown) (unknown) Social History (units unknown) (unknown) (unknown) (no date) (unknown) (unknown) Sodium (137-14 5) mmol/L (units unknown) (unknown) (unknown) (no date) (unknown) (unknown) Sodium 143 (137-145) mmol/L (units unknown) (unknown) (unknown) (no date) (unknown) (unknown) Sodium Chlorid e (Normal Saline 0.9%) 1,000 mls @ 1,000 mls/hr IV BOLUS ONE (units unknown) (unknown) (unknown) (no date) (unknown) (unknown) Source: patien t and EMS (units unknown) (unknown) (unknown) (no date) (unknown) (unknown) Stand Alone Fo barb: Patient Portal/API (units unknown) (unknown) (unknown) (no date) (unknown) (unknown) Stated complai nt: cyclic vomiting (units unknown) (unknown) (unknown) (no date) (unknown) (unknown) Stop: 11/01/22 20:39 (units unknown) (unknown) (unknown) (no date) (unknown) (unknown) Stop: 11/01/22 20:40 (units unknown) (unknown) (unknown) (no date) (unknown) (unknown) Stop: 11/01/22 21:37 (units unknown) (unknown) (unknown) (no date) (unknown) (unknown) Stop: 11/01/22 21:54 (units unknown) (unknown) (unknown) (no date) (unknown) (unknown) Stop: 11/01/22 22:17 (units unknown) (unknown) (unknown) (no date) (unknown) (unknown) Substance Use Type: former substance user, marijuana and methamphetamine (units unknown) (unknown) (unknown) (no date) (unknown) (unknown) Surgical Histo ry (units unknown) (unknown) (unknown) (no date) (unknown) (unknown) TAKE ND (units unknown) (unknown) (unknown) (no date) (unknown) (unknown) TO IV SITE (units unknown) (unknown) (unknown) (no date) (unknown) (unknown) Temperature 98.6 F ( units unknown) (unknown) (unknown) (no date) (unknown) (unknown) Temperature (units unknown) (unknown) (unknown) (no date) (unknown) (unknown) Time Seen by Provider: 11/01/22 20:38 (units unknown) (unknown) (unknown) (no date) (unknown) (unknown) Total Bilirubi n (0.2-1.3) mg/dL (units unknown) (unknown) (unknown) (no date) (unknown) (unknown) Total Bilirubi n 1.2 (0.2-1.3) mg/dL (units unknown) (unknown) (unknown) (no date) (unknown) (unknown) Total Protein (6.3-8.2) g/dL (units unknown) (unknown) (unknown) (no date) (unknown) (unknown) Total Protein 9.6 H (6.3-8.2) g/dL (units unknown) (unknown) (unknown) (no date) (unknown) (unknown) Urine Drug Scr een, Rapid Stat (units unknown) (unknown) (unknown) (no date) (unknown) (unknown) Vital Signs - 8 hr ( units unknown) (unknown) (unknown) (no date) (unknown) (unknown) Vital Signs (units unknown) (unknown) (unknown) (no date) (unknown) (unknown) Vital signs: (units unknown) (unknown) (unknown) (no date) (unknown) (unknown) WBC (4.5-11.0) X103/uL (units unknown) (unknown) (unknown) (no date) (unknown) (unknown) WBC 10.3 (4.5- 11.0) X103/uL (units unknown) (unknown) (unknown) (no date) (unknown) (unknown) [Embedded Imag e Not Available] (units unknown) (unknown) (unknown) (no date) (unknown) (unknown) [METOCLOPRAMIDE] (un its unknown) (unknown) (unknown) (no date) (unknown) (unknown) [or] any new, worsening or concerning symptoms (units unknown) (unknown) (unknown) (no date) (unknown) (unknown) abdominal pain and vomiting. She was difficult to get an IV on in fact it (units unknown) (unknown) (unknown) (no date) (unknown) (unknown) alcohol intake frequency: 3 or more drinks per day (units unknown) (unknown) (unknown) (no date) (unknown) (unknown) alcohol intake : current (units unknown) (unknown) (unknown) (no date) (unknown) (unknown) and Benadryl I M she was able to calm down in her repeat lactate was 1.6. She (units unknown) (unknown) (unknown) (no date) (unknown) (unknown) and below (units unknown) (unknown) (unknown) (no date) (unknown) (unknown) been undergoin g some stress. Patient is overall unable to give history (units unknown) (unknown) (unknown) (no date) (unknown) (unknown) blew. Lab was able to draw blood. No significant electrolyte abnormality (units unknown) (unknown) (unknown) (no date) (unknown) (unknown) bupropion HCl 100 mg tablet sustained-release 12 hr (units unknown) (unknown) (unknown) (no date) (unknown) (unknown) bupropion HCl 100 mg tablet,12 hr 100 mg PO DAILY #90 ea 04/14/22 (units unknown) (unknown) (unknown) (no date) (unknown) (unknown) guarding or rebound. (units unknown) (unknown) (unknown) (no date) (unknown) (unknown) household memb ers: spouse (units unknown) (unknown) (unknown) (no date) (unknown) (unknown) intact (units unknown) (unknown) (unknown) (no date) (unknown) (unknown) is not significantly dehydrated abdomen is soft. This is similar to previous (units unknown) (unknown) (unknown) (no date) (unknown) (unknown) lactate was 3. 9. I actually did not give her any fluids I gait her Haldol Ativan (units unknown) (unknown) (unknown) (no date) (unknown) (unknown) latex [LATEX] Allergy Unknown Verified 11/01/22 20:34 (units unknown) (unknown) (unknown) (no date) (unknown) (unknown) lay still. Sadi trejo reports that this happens to her often when there is stress (units unknown) (unknown) (unknown) (no date) (unknown) (unknown) membranes (units unknown) (unknown) (unknown) (no date) (unknown) (unknown) metoclopramide AdvReac Unknown DYSTONIA Verified 11/01/22 20:34 (units unknown) (unknown) (unknown) (no date) (unknown) (unknown) migraines, davis or electrolyte abnormalities, presenting today with sudden onset (units unknown) (unknown) (unknown) (no date) (unknown) (unknown) nausea vomitin g abdominal pain. It started around 2:00 p.m.. She is unable to (units unknown) (unknown) (unknown) (no date) (unknown) (unknown) potassium chlo ride 20 mEq 40 meq PO DAILY #90 tabs 04/14/22 (units unknown) (unknown) (unknown) (no date) (unknown) (unknown) potassium chlo ride 20 mEq tablet extended release (units unknown) (unknown) (unknown) (no date) (unknown) (unknown) potassium is 3 .4 creatinine 0.78 no significant leukocytosis anemia. Her 1st (units unknown) (unknown) (unknown) (no date) (unknown) (unknown) presentations. She is tolerating a small amount of fluid. This time I do not (units unknown) (unknown) (unknown) (no date) (unknown) (unknown) promethazine 2 5 mg rectal 25 mg ND Q4-6H PRN nausea and 10/10/22 (units unknown) (unknown) (unknown) (no date) (unknown) (unknown) promethazine 2 5 mg suppository (units unknown) (unknown) (unknown) (no date) (unknown) (unknown) promethazine [PROMETHAZINE] Allergy Mild ERYTHEMA Verified 11/01/22 20:34 (units unknown) (unknown) (unknown) (no date) (unknown) (unknown) secondary to h er current state. (units unknown) (unknown) (unknown) (no date) (unknown) (unknown) see need for a ny need for imaging. (units unknown) (unknown) (unknown) (no date) (unknown) (unknown) some sleep (units unknown) (unknown) (unknown) (no date) (unknown) (unknown) spironolactone 25 mg tablet 25 mg PO DAILY #90 tabs 04/14/22 (units unknown) (unknown) (unknown) (no date) (unknown) (unknown) spironolactone 25 mg tablet (units unknown) (unknown) (unknown) (no date) (unknown) (unknown) suppository vomiting #12 ea (units unknown) (unknown) (unknown) (no date) (unknown) (unknown) sustained-release (u nits unknown) (unknown) (unknown) (no date) (unknown) (unknown) tablet,extende d release (units unknown) (unknown) (unknown) (no date) (unknown) (unknown) tobacco type: vaping (units unknown) (unknown) Result panel 815 (unknown) (no date) (unknown) (unknown) (no value) (units unknown) (unknown) (unknown) (no date) (unknown) (unknown) <Electronicall y signed by Katy Peacock D.O.> (units unknown) (unknown) (unknown) (no date) (unknown) (unknown) *Continue to t joy medications as directed (units unknown) (unknown) (unknown) (no date) (unknown) (unknown) *Follow up wit h your primary care provider in 2-3 days or call [phone] (units unknown) (unknown) (unknown) (no date) (unknown) (unknown) *Return to ER if you should have persistent vomiting increased abdominal pain or (units unknown) (unknown) (unknown) (no date) (unknown) (unknown) *What to do: P lease increase fluids as tolerated. 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, abdominal migraine (units unknown) (unknown) (unknown) (no date) (unknown) (unknown) 00:00 11/02/22 (unit s unknown) (unknown) (unknown) (no date) (unknown) (unknown) 00:00 (units unknown) (unknown) (unknown) (no date) (unknown) (unknown) 00:30 11/02/22 (unit s unknown) (unknown) (unknown) (no date) (unknown) (unknown) 01:55 (units unknown) (unknown) (unknown) (no date) (unknown) (unknown) 11/01/2211/0111/01/22 Range/Units (units unknown) (unknown) (unknown) (no date) (unknown) (unknown) 11/01/22 23:30 (unit s unknown) (unknown) (unknown) (no date) (unknown) (unknown) 11/01/22 (units unknown) (unknown) (unknown) (no date) (unknown) (unknown) 11/02/22 0701 (units unknown) (unknown) (unknown) (no date) (unknown) (unknown) 11/02/22 Range/Units (units unknown) (unknown) (unknown) (no date) (unknown) (unknown) 11/02/22 (units unknown) (unknown) (unknown) (no date) (unknown) (unknown) 06:51 (units unknown) (unknown) (unknown) (no date) (unknown) (unknown) 06:55 (units unknown) (unknown) (unknown) (no date) (unknown) (unknown) 100 mg PO JEAN Y Qty: 90 0RF (units unknown) (unknown) (unknown) (no date) (unknown) (unknown) 23:00 11/01/22 (unit s unknown) (unknown) (unknown) (no date) (unknown) (unknown) 23:01 11/01/22 (unit s unknown) (unknown) (unknown) (no date) (unknown) (unknown) 23:08 (units unknown) (unknown) (unknown) (no date) (unknown) (unknown) 23:30 11/01/22 (unit s unknown) (unknown) (unknown) (no date) (unknown) (unknown) 23:30 23:30 23:30 (u nits unknown) (unknown) (unknown) (no date) (unknown) (unknown) 23:32 11/02/22 (unit s unknown) (unknown) (unknown) (no date) (unknown) (unknown) 25 mg PO DAILY Qty: 90 0RF (units unknown) (unknown) (unknown) (no date) (unknown) (unknown) 25 mg ND PRN P RN (Reason: Nausea) (units unknown) (unknown) (unknown) (no date) (unknown) (unknown) 25 mg ND Q4-6H PRN (Reason: nausea and vomiting) Qty: 12 0RF (units unknown) (unknown) (unknown) (no date) (unknown) (unknown) [address] (units unknown) (unknown) (unknown) (no date) (unknown) (unknown) 4 mg PO Q8H ND N (Reason: nausea and vomiting) Qty: 10 0RF (units unknown) (unknown) (unknown) (no date) (unknown) (unknown) 40 meq PO JEAN Y Qty: 90 0RF (units unknown) (unknown) (unknown) (no date) (unknown) (unknown) ABDOMEN: Soft, nontender. Normoactive bowel sounds all 4 quadrants. No (units unknown) (unknown) (unknown) (no date) (unknown) (unknown) ABLE TO (units unknown) (unknown) (unknown) (no date) (unknown) (unknown) ALT (<35) IU/L (unit s unknown) (unknown) (unknown) (no date) (unknown) (unknown) ALT 35 H (<35) IU/L (units unknown) (unknown) (unknown) (no date) (unknown) (unknown) AST (14-36) IU/L (un its unknown) (unknown) (unknown) (no date) (unknown) (unknown) AST 32 (14-36) IU/L (units unknown) (unknown) (unknown) (no date) (unknown) (unknown) Abscess (units unknown) (unknown) (unknown) (no date) (unknown) (unknown) Activity Restrictions/Additi onal Instructions: (units unknown) (unknown) (unknown) (no date) (unknown) (unknown) Age/Sex: 47 / F (uni ts unknown) (unknown) (unknown) (no date) (unknown) (unknown) Albumin (3.5-5 .0) g/dL (units unknown) (unknown) (unknown) (no date) (unknown) (unknown) Albumin 5.2 H (3.5-5.0) g/dL (units unknown) (unknown) (unknown) (no date) (unknown) (unknown) Albumin/Globul in Ratio (1.0-2.8) (units unknown) (unknown) (unknown) (no date) (unknown) (unknown) Albumin/Globul in Ratio 1.2 (1.0-2.8) (units unknown) (unknown) (unknown) (no date) (unknown) (unknown) Alcohol type: wine ( units unknown) (unknown) (unknown) (no date) (unknown) (unknown) Alkaline Phosphatase (38-126) U/L (units unknown) (unknown) (unknown) (no date) (unknown) (unknown) Alkaline Phosphatase 95 (38-126) U/L (units unknown) (unknown) (unknown) (no date) (unknown) (unknown) Allergies (units unknown) (unknown) (unknown) (no date) (unknown) (unknown) Allergy/AdvRea c Type Severity Reaction Status Date / Time (units unknown) (unknown) (unknown) (no date) (unknown) (unknown) BUN (7-17) mg/dL (un its unknown) (unknown) (unknown) (no date) (unknown) (unknown) BUN 15 (7-17) mg/dL (units unknown) (unknown) (unknown) (no date) (unknown) (unknown) BUN/Creatinine Ratio (6-22) (units unknown) (unknown) (unknown) (no date) (unknown) (unknown) BUN/Creatinine Ratio 19.2 (6-22) (units unknown) (unknown) (unknown) (no date) (unknown) (unknown) Baso # (Auto) (0-100) /uL (units unknown) (unknown) (unknown) (no date) (unknown) (unknown) Baso # (Auto) 0 (0-100) /uL (units unknown) (unknown) (unknown) (no date) (unknown) (unknown) Baso % (Auto) (0-2) % (units unknown) (unknown) (unknown) (no date) (unknown) (unknown) Baso % (Auto) 0.1 (0-2) % (units unknown) (unknown) (unknown) (no date) (unknown) (unknown) Blood Pressure 115/68 (units unknown) (unknown) (unknown) (no date) (unknown) (unknown) Blood Pressure 148/82 H 118/70 (units unknown) (unknown) (unknown) (no date) (unknown) (unknown) Blood Pressure 152/98 H (units unknown) (unknown) (unknown) (no date) (unknown) (unknown) Blood Pressure 170/95 H 170/95 H (units unknown) (unknown) (unknown) (no date) (unknown) (unknown) CARDIOVASCULAR : Regular rate and rhythm without murmurs, rubs or gallops. (units unknown) (unknown) (unknown) (no date) (unknown) (unknown) CBC Auto Diff [Complete Blood Count AUTO DIFF] Stat (units unknown) (unknown) (unknown) (no date) (unknown) (unknown) CMP [Comprehen sive Metabolic Panel] Stat (units unknown) (unknown) (unknown) (no date) (unknown) (unknown) Calcium (8.4-1 0.2) mg/dL (units unknown) (unknown) (unknown) (no date) (unknown) (unknown) Calcium 10.0 (8.4-10.2) mg/dL (units unknown) (unknown) (unknown) (no date) (unknown) (unknown) Carbon Dioxide (22-32) mmol/L (units unknown) (unknown) (unknown) (no date) (unknown) (unknown) Carbon Dioxide 29 (22-32) mmol/L (units unknown) (unknown) (unknown) (no date) (unknown) (unknown) Chief complain t: Nausea/Vomiting/Trupti rrhea (units unknown) (unknown) (unknown) (no date) (unknown) (unknown) Chloride (98-1 07) mmol/L (units unknown) (unknown) (unknown) (no date) (unknown) (unknown) Chloride 98 (98-107) mmol/L (units unknown) (unknown) (unknown) (no date) (unknown) (unknown) Chronic abdomi nal pain (units unknown) (unknown) (unknown) (no date) (unknown) (unknown) Clinical Impression: (units unknown) (unknown) (unknown) (no date) (unknown) (unknown) Compazine 25 m g ND PRN PRN Nausea 07/06/22 07/06/22 (units unknown) (unknown) (unknown) (no date) (unknown) (unknown) Compazine suppository (units unknown) (unknown) (unknown) (no date) (unknown) (unknown) Course (units unknown) (unknown) (unknown) (no date) (unknown) (unknown) Creatinine (0.52-1.04) mg/dL (units unknown) (unknown) (unknown) (no date) (unknown) (unknown) Creatinine 0.7 8 (0.52-1.04) mg/dL (units unknown) (unknown) (unknown) (no date) (unknown) (unknown) Cyclic vomitin g syndrome (units unknown) (unknown) (unknown) (no date) (unknown) (unknown) : 3 Acct:[id number] (units unknown) (unknown) (unknown) (no date) (unknown) (unknown) Date of Servic e: 11/01/22 (units unknown) (unknown) (unknown) (no date) (unknown) (unknown) Daughter Angio-edema (units unknown) (unknown) (unknown) (no date) (unknown) (unknown) Departure (units unknown) (unknown) (unknown) (no date) (unknown) (unknown) Diphenhydramin e HCl (Diphenhydramine 50 Mg/Ml Vial) 50 mg IM NOW ONE (units unknown) (unknown) (unknown) (no date) (unknown) (unknown) Diphenhydramin e HCl (Diphenhydramine 50 Mg/Ml Vial) 50 mg IV NOW ONE (units unknown) (unknown) (unknown) (no date) (unknown) (unknown) Discharge Plan (unit s unknown) (unknown) (unknown) (no date) (unknown) (unknown) Discontinued Medications (units unknown) (unknown) (unknown) (no date) (unknown) (unknown) Documented By: AP (u nits unknown) (unknown) (unknown) (no date) (unknown) (unknown) ED Orders (units unknown) (unknown) (unknown) (no date) (unknown) (unknown) ER Physician: Katy Peacock D.O. (units unknown) (unknown) (unknown) (no date) (unknown) (unknown) EXTREMITIES: N ormal range of motion, no clubbing or edema. Neurovascularly (units unknown) (unknown) (unknown) (no date) (unknown) (unknown) Emergency Report (un its unknown) (unknown) (unknown) (no date) (unknown) (unknown) Eos # (Auto) (0-450) /uL (units unknown) (unknown) (unknown) (no date) (unknown) (unknown) Eos # (Auto) 0 (0-450) /uL (units unknown) (unknown) (unknown) (no date) (unknown) (unknown) Eos % (Auto) ( 2-4) % (units unknown) (unknown) (unknown) (no date) (unknown) (unknown) Eos % (Auto) 0 .0 L (2-4) % (units unknown) (unknown) (unknown) (no date) (unknown) (unknown) Estimated GFR > 60 (>60) mL/min (units unknown) (unknown) (unknown) (no date) (unknown) (unknown) Estimated GFR (>60) mL/min (units unknown) (unknown) (unknown) (no date) (unknown) (unknown) Exam (units unknown) (unknown) (unknown) (no date) (unknown) (unknown) Family History (units unknown) (unknown) (unknown) (no date) (unknown) (unknown) Family history of angioedema (units unknown) (unknown) (unknown) (no date) (unknown) (unknown) Father Hypertension (units unknown) (unknown) (unknown) (no date) (unknown) (unknown) GENERAL: Alert anxious flailing 47-year-old female, vomiting (units unknown) (unknown) (unknown) (no date) (unknown) (unknown) General (units unknown) (unknown) (unknown) (no date) (unknown) (unknown) Globulin (1.7- 4.1) g/dL (units unknown) (unknown) (unknown) (no date) (unknown) (unknown) Globulin 4.4 H (1.7-4.1) g/dL (units unknown) (unknown) (unknown) (no date) (unknown) (unknown) Glucose (70-10 0) mg/dL (units unknown) (unknown) (unknown) (no date) (unknown) (unknown) Glucose 133 H (70-100) mg/dL (units unknown) (unknown) (unknown) (no date) (unknown) (unknown) HEENT: Head atraumatic,EOMI, pupils reactive, face symmetric, moist mucous (units unknown) (unknown) (unknown) (no date) (unknown) (unknown) HPI - Nausea/Vomiting/Trupti rrhea (units unknown) (unknown) (unknown) (no date) (unknown) (unknown) HPI Narrative: (unit s unknown) (unknown) (unknown) (no date) (unknown) (unknown) Haloperidol (Haloperidol 5 Mg/Ml Vial) 2 mg IV NOW ONE (units unknown) (unknown) (unknown) (no date) (unknown) (unknown) Haloperidol (Haloperidol 5 Mg/Ml Vial) 5 mg IM NOW ONE (units unknown) (unknown) (unknown) (no date) (unknown) (unknown) [place] (units unknown) (unknown) (unknown) (no date) (unknown) (unknown) Hct (36-46) % (units unknown) (unknown) (unknown) (no date) (unknown) (unknown) Hct 42.2 (36-46) % ( units unknown) (unknown) (unknown) (no date) (unknown) (unknown) Hgb (12.0-16.0 ) g/dL (units unknown) (unknown) (unknown) (no date) (unknown) (unknown) Hgb 14.5 (12.0-16.0) g/dL (units unknown) (unknown) (unknown) (no date) (unknown) (unknown) History of Pre sent Illness (units unknown) (unknown) (unknown) (no date) (unknown) (unknown) Home Medications (un its unknown) (unknown) (unknown) (no date) (unknown) (unknown) Hx of appendectomy ( units unknown) (unknown) (unknown) (no date) (unknown) (unknown) Hx of cholecystectomy (units unknown) (unknown) (unknown) (no date) (unknown) (unknown) Initial Vital Signs (units unknown) (unknown) (unknown) (no date) (unknown) (unknown) Initial Vital Signs: (units unknown) (unknown) (unknown) (no date) (unknown) (unknown) Instructions: Nausea and Vomiting-Adult (units unknown) (unknown) (unknown) (no date) (unknown) (unknown) [address] [address] (units unknown) (unknown) (unknown) (no date) (unknown) (unknown) Sergo Martino M D [Primary Care Provider] (units unknown) (unknown) (unknown) (no date) (unknown) (unknown) Lab Data (units unknown) (unknown) (unknown) (no date) (unknown) (unknown) Lab Results (units unknown) (unknown) (unknown) (no date) (unknown) (unknown) Labs: (units unknown) (unknown) (unknown) (no date) (unknown) (unknown) Lactate (Lacti c Acid) Stat (units unknown) (unknown) (unknown) (no date) (unknown) (unknown) Lactate 1.6 (0.7-2.1) mmol/L (units unknown) (unknown) (unknown) (no date) (unknown) (unknown) Lactate 3.9 H (0.7-2.1) mmol/L (units unknown) (unknown) (unknown) (no date) (unknown) (unknown) Last Admin: 11/01/22 22:01 Dose: 2 mg (units unknown) (unknown) (unknown) (no date) (unknown) (unknown) Last Admin: 11/01/22 22:01 Dose: 4 mg (units unknown) (unknown) (unknown) (no date) (unknown) (unknown) Last Admin: 11/01/22 22:01 Dose: 40 mg (units unknown) (unknown) (unknown) (no date) (unknown) (unknown) Last Admin: 11/01/22 22:25 Dose: 50 mg (units unknown) (unknown) (unknown) (no date) (unknown) (unknown) Last Admin: 11/01/22 22:30 Dose: 50 mg (units unknown) (unknown) (unknown) (no date) (unknown) (unknown) Last Admin: 11/01/22 22:31 Dose: 5 mg (units unknown) (unknown) (unknown) (no date) (unknown) (unknown) Last Admin: 11/02/22 06:30 Dose: Not Given (units unknown) (unknown) (unknown) (no date) (unknown) (unknown) Last Admin: 11/02/22 06:32 Dose: Not Given (units unknown) (unknown) (unknown) (no date) (unknown) (unknown) Last Admin: 11/02/22 06:33 Dose: Not Given (units unknown) (unknown) (unknown) (no date) (unknown) (unknown) Lipase (23-300) U/L (units unknown) (unknown) (unknown) (no date) (unknown) (unknown) Lipase 60 (23- 300) U/L (units unknown) (unknown) (unknown) (no date) (unknown) (unknown) Lipase Stat (units unknown) (unknown) (unknown) (no date) (unknown) (unknown) Lorazepam (Lorazepam 2 Mg/Ml Inj) 2 mg IM NOW ONE (units unknown) (unknown) (unknown) (no date) (unknown) (unknown) Lorazepam (Lorazepam 2 Mg/Ml Inj) 2 mg IV NOW ONE (units unknown) (unknown) (unknown) (no date) (unknown) (unknown) Lymph # (Auto) (1718-9639) /uL (units unknown) (unknown) (unknown) (no date) (unknown) (unknown) Lymph # (Auto) 600 L (6193-1536) /uL (units unknown) (unknown) (unknown) (no date) (unknown) (unknown) Lymph % (Auto) (25-40) % (units unknown) (unknown) (unknown) (no date) (unknown) (unknown) Lymph % (Auto) 6.0 L (25-40) % (units unknown) (unknown) (unknown) (no date) (unknown) (unknown) MCH (26-34) PG (unit s unknown) (unknown) (unknown) (no date) (unknown) (unknown) MCH 31.2 (26-34) PG (units unknown) (unknown) (unknown) (no date) (unknown) (unknown) MCHC (30-36) % (unit s unknown) (unknown) (unknown) (no date) (unknown) (unknown) MCHC 34.3 (30-36) % (units unknown) (unknown) (unknown) (no date) (unknown) (unknown) MCV (80-100) fL (uni ts unknown) (unknown) (unknown) (no date) (unknown) (unknown) MCV 91.1 (80-1 00) fL (units unknown) (unknown) (unknown) (no date) (unknown) (unknown) MDM - Nausea/Vomiting/Trupti rrhea (units unknown) (unknown) (unknown) (no date) (unknown) (unknown) MDM Narrative (units unknown) (unknown) (unknown) (no date) (unknown) (unknown) 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 (units unknown) (unknown) (unknown) (no date) (unknown) (unknown) Marijuana use, continuous (units unknown) (unknown) (unknown) (no date) (unknown) (unknown) Medical Histor y (units unknown) (unknown) (unknown) (no date) (unknown) (unknown) Medical decisi on making narrative: (units unknown) (unknown) (unknown) (no date) (unknown) (unknown) Medication Instructions Recorded Confirmed (units unknown) (unknown) (unknown) (no date) (unknown) (unknown) Medication Instructions Recorded (units unknown) (unknown) (unknown) (no date) (unknown) (unknown) Mode of arriva l: EMS (units unknown) (unknown) (unknown) (no date) (unknown) (unknown) Larue # (Auto) (0-900) /uL (units unknown) (unknown) (unknown) (no date) (unknown) (unknown) Larue # (Auto) 600 (0-900) /uL (units unknown) (unknown) (unknown) (no date) (unknown) (unknown) Larue % (Auto) (3-14) % (units unknown) (unknown) (unknown) (no date) (unknown) (unknown) Larue % (Auto) 5.9 (3-14) % (units unknown) (unknown) (unknown) (no date) (unknown) (unknown) Mother Diabete s mellitus (units unknown) (unknown) (unknown) (no date) (unknown) (unknown) NEUROLOGICAL: Alert and oriented x4. (units unknown) (unknown) (unknown) (no date) (unknown) (unknown) Neut # (Auto) (4094-5893) /uL (units unknown) (unknown) (unknown) (no date) (unknown) (unknown) Neut # (Auto) 9000 H (1791-8666) /uL (units unknown) (unknown) (unknown) (no date) (unknown) (unknown) Neut % (Auto) (50-75) % (units unknown) (unknown) (unknown) (no date) (unknown) (unknown) Neut % (Auto) 88.0 H (50-75) % (units unknown) (unknown) (unknown) (no date) (unknown) (unknown) New (units unknown) (unknown) (unknown) (no date) (unknown) (unknown) No Action (units unknown) (unknown) (unknown) (no date) (unknown) (unknown) Ondansetron HC l (Ondansetron 4 Mg Odt) 4 mg SL NOW PRN (units unknown) (unknown) (unknown) (no date) (unknown) (unknown) Ondansetron HC l (Ondansetron 4 Mg/2 Ml Inj) 4 mg IV NOW PRN (units unknown) (unknown) (unknown) (no date) (unknown) (unknown) Ordered: (units unknown) (unknown) (unknown) (no date) (unknown) (unknown) Orders (units unknown) (unknown) (unknown) (no date) (unknown) (unknown) Other Colon cancer ( units unknown) (unknown) (unknown) (no date) (unknown) (unknown) Oxygen Deliver y Method Room Air (units unknown) (unknown) (unknown) (no date) (unknown) (unknown) Oxygen Deliver y Method (units unknown) (unknown) (unknown) (no date) (unknown) (unknown) PRN Reason: Na usea And Vomiting (units unknown) (unknown) (unknown) (no date) (unknown) (unknown) PT STATES (units unknown) (unknown) (unknown) (no date) (unknown) (unknown) Pancreatitis (units unknown) (unknown) (unknown) (no date) (unknown) (unknown) Pantoprazole S odium (Pantoprazole 40 Mg Vial) 40 mg IV NOW ONE (units unknown) (unknown) (unknown) (no date) (unknown) (unknown) Patient 47-yea r-old female with history of cyclic vomiting presenting today with (units unknown) (unknown) (unknown) (no date) (unknown) (unknown) Patient Disposition: Home (units unknown) (unknown) (unknown) (no date) (unknown) (unknown) Patient History (uni ts unknown) (unknown) (unknown) (no date) (unknown) (unknown) Patient is a 47-year-old female with history of cyclic vomiting, abdominal (units unknown) (unknown) (unknown) (no date) (unknown) (unknown) Patient: Huyen Castro MR#: [id number] (units unknown) (unknown) (unknown) (no date) (unknown) (unknown) Plt Count (150 -400) X103/uL (units unknown) (unknown) (unknown) (no date) (unknown) (unknown) Plt Count 276 (150-400) X103/uL (units unknown) (unknown) (unknown) (no date) (unknown) (unknown) Potassium (3.4 -5.1) mmol/L (units unknown) (unknown) (unknown) (no date) (unknown) (unknown) Potassium 3.4 (3.4-5.1) mmol/L (units unknown) (unknown) (unknown) (no date) (unknown) (unknown) Prescriptions: (unit s unknown) (unknown) (unknown) (no date) (unknown) (unknown) Previous Rx's (units unknown) (unknown) (unknown) (no date) (unknown) (unknown) Pulse Oximetry 89 L 11/01/22 20:29 (units unknown) (unknown) (unknown) (no date) (unknown) (unknown) Pulse Oximetry 89 L 55 L (units unknown) (unknown) (unknown) (no date) (unknown) (unknown) Pulse Oximetry 95 (u nits unknown) (unknown) (unknown) (no date) (unknown) (unknown) Pulse Oximetry 97 98 97 (units unknown) (unknown) (unknown) (no date) (unknown) (unknown) Pulse Oximetry 99 (u nits unknown) (unknown) (unknown) (no date) (unknown) (unknown) Pulse Rate 76 (units unknown) (unknown) (unknown) (no date) (unknown) (unknown) Pulse Rate 80 81 80 (units unknown) (unknown) (unknown) (no date) (unknown) (unknown) Pulse Rate 84 (units unknown) (unknown) (unknown) (no date) (unknown) (unknown) Pulse Rate (units unknown) (unknown) (unknown) (no date) (unknown) (unknown) RBC (4.0-5.2) X106/uL (units unknown) (unknown) (unknown) (no date) (unknown) (unknown) RBC 4.63 (4.0- 5.2) X106/uL (units unknown) (unknown) (unknown) (no date) (unknown) (unknown) RDW (11.6-14.8) % (u nits unknown) (unknown) (unknown) (no date) (unknown) (unknown) RDW 13.4 (11.6-14.8) % (units unknown) (unknown) (unknown) (no date) (unknown) (unknown) RESPIRATORY: B reath sounds equal bilaterally, no wheezes rales or rhonchi. (units unknown) (unknown) (unknown) (no date) (unknown) (unknown) ROS Unobtainab le: All systems reviewed + are unremarkable except as noted in HPI (units unknown) (unknown) (unknown) (no date) (unknown) (unknown) Referrals: (units unknown) (unknown) (unknown) (no date) (unknown) (unknown) Related Data (units unknown) (unknown) (unknown) (no date) (unknown) (unknown) Respiratory Rate 16 (units unknown) (unknown) (unknown) (no date) (unknown) (unknown) Respiratory Rate 18 (units unknown) (unknown) (unknown) (no date) (unknown) (unknown) Respiratory Rate (un its unknown) (unknown) (unknown) (no date) (unknown) (unknown) Review of Systems (u nits unknown) (unknown) (unknown) (no date) (unknown) (unknown) SKIN: Warm, dr y, no laceration, no petechiae, no rashes or lesions. (units unknown) (unknown) (unknown) (no date) (unknown) (unknown) Signed By: (units unknown) (unknown) (unknown) (no date) (unknown) (unknown) Smoking Status : Current every day smoker (units unknown) (unknown) (unknown) (no date) (unknown) (unknown) Social History (units unknown) (unknown) (unknown) (no date) (unknown) (unknown) Sodium (137-14 5) mmol/L (units unknown) (unknown) (unknown) (no date) (unknown) (unknown) Sodium 143 (137-145) mmol/L (units unknown) (unknown) (unknown) (no date) (unknown) (unknown) Sodium Chlorid e (Normal Saline 0.9%) 1,000 mls @ 1,000 mls/hr IV BOLUS ONE (units unknown) (unknown) (unknown) (no date) (unknown) (unknown) Source: patien t and EMS (units unknown) (unknown) (unknown) (no date) (unknown) (unknown) Stand Alone Fo barb: Patient Portal/API (units unknown) (unknown) (unknown) (no date) (unknown) (unknown) Stated complai nt: cyclic vomiting (units unknown) (unknown) (unknown) (no date) (unknown) (unknown) Stop: 11/01/22 20:39 (units unknown) (unknown) (unknown) (no date) (unknown) (unknown) Stop: 11/01/22 20:40 (units unknown) (unknown) (unknown) (no date) (unknown) (unknown) Stop: 11/01/22 21:37 (units unknown) (unknown) (unknown) (no date) (unknown) (unknown) Stop: 11/01/22 21:54 (units unknown) (unknown) (unknown) (no date) (unknown) (unknown) Stop: 11/01/22 22:17 (units unknown) (unknown) (unknown) (no date) (unknown) (unknown) Substance Use Type: former substance user, marijuana and methamphetamine (units unknown) (unknown) (unknown) (no date) (unknown) (unknown) Surgical Histo ry (units unknown) (unknown) (unknown) (no date) (unknown) (unknown) TAKE ND (units unknown) (unknown) (unknown) (no date) (unknown) (unknown) TO IV SITE (units unknown) (unknown) (unknown) (no date) (unknown) (unknown) Temperature 98.9 F ( units unknown) (unknown) (unknown) (no date) (unknown) (unknown) Temperature (units unknown) (unknown) (unknown) (no date) (unknown) (unknown) Time Seen by Provider: 11/01/22 20:38 (units unknown) (unknown) (unknown) (no date) (unknown) (unknown) Total Bilirubi n (0.2-1.3) mg/dL (units unknown) (unknown) (unknown) (no date) (unknown) (unknown) Total Bilirubi n 1.2 (0.2-1.3) mg/dL (units unknown) (unknown) (unknown) (no date) (unknown) (unknown) Total Protein (6.3-8.2) g/dL (units unknown) (unknown) (unknown) (no date) (unknown) (unknown) Total Protein 9.6 H (6.3-8.2) g/dL (units unknown) (unknown) (unknown) (no date) (unknown) (unknown) Vital Signs - 8 hr ( units unknown) (unknown) (unknown) (no date) (unknown) (unknown) Vital Signs (units unknown) (unknown) (unknown) (no date) (unknown) (unknown) Vital signs: (units unknown) (unknown) (unknown) (no date) (unknown) (unknown) WBC (4.5-11.0) X103/uL (units unknown) (unknown) (unknown) (no date) (unknown) (unknown) WBC 10.3 (4.5- 11.0) X103/uL (units unknown) (unknown) (unknown) (no date) (unknown) (unknown) Zofran 4 mg ev pradip 8 hours if needed for nausea or vomiting--> [employer] (units unknown) (unknown) (unknown) (no date) (unknown) (unknown) [Embedded Imag e Not Available] (units unknown) (unknown) (unknown) (no date) (unknown) (unknown) [METOCLOPRAMIDE] (un its unknown) (unknown) (unknown) (no date) (unknown) (unknown) abdominal pain and vomiting. She was difficult to get an IV on in fact it (units unknown) (unknown) (unknown) (no date) (unknown) (unknown) alcohol intake frequency: 3 or more drinks per day (units unknown) (unknown) (unknown) (no date) (unknown) (unknown) alcohol intake : current (units unknown) (unknown) (unknown) (no date) (unknown) (unknown) and Benadryl I M she was able to calm down in her repeat lactate was 1.6. She (units unknown) (unknown) (unknown) (no date) (unknown) (unknown) and below (units unknown) (unknown) (unknown) (no date) (unknown) (unknown) any new, worse becca or concerning symptoms (units unknown) (unknown) (unknown) (no date) (unknown) (unknown) been undergoin g some stress. Patient is overall unable to give history (units unknown) (unknown) (unknown) (no date) (unknown) (unknown) blew. Lab was able to draw blood. No significant electrolyte abnormality (units unknown) (unknown) (unknown) (no date) (unknown) (unknown) bupropion HCl 100 mg tablet sustained-release 12 hr (units unknown) (unknown) (unknown) (no date) (unknown) (unknown) bupropion HCl 100 mg tablet,12 hr 100 mg PO DAILY #90 ea 04/14/22 (units unknown) (unknown) (unknown) (no date) (unknown) (unknown) guarding or rebound. (units unknown) (unknown) (unknown) (no date) (unknown) (unknown) household memb ers: spouse (units unknown) (unknown) (unknown) (no date) (unknown) (unknown) intact (units unknown) (unknown) (unknown) (no date) (unknown) (unknown) is not significantly dehydrated abdomen is soft. This is similar to previous (units unknown) (unknown) (unknown) (no date) (unknown) (unknown) lactate was 3. 9. I actually did not give her any fluids I gait her Haldol Ativan (units unknown) (unknown) (unknown) (no date) (unknown) (unknown) latex [LATEX] Allergy Unknown Verified 11/01/22 20:34 (units unknown) (unknown) (unknown) (no date) (unknown) (unknown) lay still. [facility] neil reports that this happens to her often when there is stress (units unknown) (unknown) (unknown) (no date) (unknown) (unknown) membranes (units unknown) (unknown) (unknown) (no date) (unknown) (unknown) metoclopramide AdvReac Unknown DYSTONIA Verified 11/01/22 20:34 (units unknown) (unknown) (unknown) (no date) (unknown) (unknown) migraines, davis or electrolyte abnormalities, presenting today with sudden onset (units unknown) (unknown) (unknown) (no date) (unknown) (unknown) nausea vomitin g abdominal pain. It started around 2:00 p.m.. She is unable to (units unknown) (unknown) (unknown) (no date) (unknown) (unknown) ondansetron 4 mg disintegrating 4 mg PO Q8H PRN nausea and 11/02/22 (units unknown) (unknown) (unknown) (no date) (unknown) (unknown) ondansetron 4 mg tablet,disintegrati ng (units unknown) (unknown) (unknown) (no date) (unknown) (unknown) potassium chlo ride 20 mEq 40 meq PO DAILY #90 tabs 04/14/22 (units unknown) (unknown) (unknown) (no date) (unknown) (unknown) potassium chlo ride 20 mEq tablet extended release (units unknown) (unknown) (unknown) (no date) (unknown) (unknown) potassium is 3 .4 creatinine 0.78 no significant leukocytosis anemia. Her 1st (units unknown) (unknown) (unknown) (no date) (unknown) (unknown) presentations. She is tolerating a small amount of fluid. This time I do not (units unknown) (unknown) (unknown) (no date) (unknown) (unknown) promethazine 2 5 mg rectal 25 mg ND Q4-6H PRN nausea and 10/10/22 (units unknown) (unknown) (unknown) (no date) (unknown) (unknown) promethazine 2 5 mg suppository (units unknown) (unknown) (unknown) (no date) (unknown) (unknown) promethazine [PROMETHAZINE] Allergy Mild ERYTHEMA Verified 11/01/22 20:34 (units unknown) (unknown) (unknown) (no date) (unknown) (unknown) secondary to h er current state. (units unknown) (unknown) (unknown) (no date) (unknown) (unknown) see need for a nh need for imaging. (units unknown) (unknown) (unknown) (no date) (unknown) (unknown) some sleep (units unknown) (unknown) (unknown) (no date) (unknown) (unknown) spironolactone 25 mg tablet 25 mg PO DAILY #90 tabs 04/14/22 (units unknown) (unknown) (unknown) (no date) (unknown) (unknown) spironolactone 25 mg tablet (units unknown) (unknown) (unknown) (no date) (unknown) (unknown) suppository vomiting #12 ea (units unknown) (unknown) (unknown) (no date) (unknown) (unknown) sustained-release (u nits unknown) (unknown) (unknown) (no date) (unknown) (unknown) tablet vomitin g #10 tabs (units unknown) (unknown) (unknown) (no date) (unknown) (unknown) tablet,extende d release (units unknown) (unknown) (unknown) (no date) (unknown) (unknown) tobacco type: vaping (units unknown) (unknown) Social History date description facility 2022-10-10 00:00 Smokes tobacco daily (finding) [facility] 2022-11-01 00:00 Smokes tobacco daily (finding) [facility] Vital Signs date measurement value units 2022-10-10 00:00 BMI 24.3 kg/m2 2022-10-10 00:00 BP_diastolic 65 mmHg 2022-10-10 00:00 BP_systolic 118 mmHg 2022-10-10 00:00 heart_rate 98 /min 2022-10-10 00:00 height_metric 177.8 cm 2022-10-10 00:00 height_standard 70 in 2022-10-10 00:00 o2_saturation 96 % 2022-10-10 00:00 respiration_rate 18 /min 2022-10-10 00:00 temperature_metric 37.06 C 2022-10-10 00:00 temperature_standard 98.7 F 2022-10-10 00:00 weight_metric 77.11 kg 2022-10-10 00:00 weight_standard 170 lb 2022-11-01 00:00 BMI 24.3 kg/m2 2022-11-01 00:00 height_metric 177.8 cm 2022-11-01 00:00 height_standard 70 in 2022-11-01 00:00 weight_metric 77.11 kg 2022-11-01 00:00 weight_standard 170 lb 2022-11-02 00:00 BP_diastolic 68 mmHg 2022-11-02 00:00 BP_systolic 115 mmHg 2022-11-02 00:00 heart_rate 84 /min 2022-11-02 00:00 o2_saturation 99 % 2022-11-02 00:00 respiration_rate 16 /min 2022-11-02 00:00 temperature_metric 37.17 C 2022-11-02 00:00 temperature_standard 98.9 F
[2023-01-02] MEDS ORDERED: LORazepam 2 MG/ML VIAL IVP STA ×2 (04:03→08:56)
[2023-01-02 04:38] LABS: BASOPHILS % (AUTO) 0.1 %; HCT - HEMATOCRIT 41.3 % (37.0-47.0); HGB - HEMOGLOBIN 13.9 g/dL (12.0-16.0); LYMPHOCYTES # (AUTO) 0.9 10^3/uL (1.5-3.5); LYMPHOCYTES % (AUTO) 12.2 %; MEAN CORPUSCULAR HEMOGLOBIN 30.8 pg (27.0-31.0); MEAN CORPUSCULAR HGB CONC 33.7 g/dL (32.0-36.0); MEAN CORPUSCULAR VOLUME 91.6 fL (81.0-99.0); MEAN PLATELET VOLUME 10.1 fL (7.9-10.8); MONOCYTES # (AUTO) 0.4 10^3/uL (0.0-1.0); MONOCYTES % (AUTO) 5.4 %; NEUTROPHILS # (AUTO) 6.3 10^3/uL (1.5-6.6); NEUTROPHILS % (AUTO) 81.9 %; PLT - PLATELET COUNT 236 10^3/uL (130-450); RED BLOOD COUNT 4.51 10^6/uL (4.20-5.40); RED CELL DISTRIBUTION WIDTH 12.5 % (12.0-15.0); WHITE BLOOD COUNT 7.7 x10^3/uL (4.8-10.8)
[2023-01-02 04:54] LABS: ALBUMIN 4.7 g/dL (3.2-5.5); ALBUMIN/GLOBULIN RATIO 1.1 (1.0-2.2); BILIRUBIN,TOTAL 1.5 mg/dL (0.2-1.0); CALCIUM 9.7 mg/dL (8.5-10.3); CREATININE 0.8 mg/dL (0.4-1.0); TOTAL PROTEIN 8.8 g/dL (6.7-8.2)
[2023-01-02 04:58] LABS: POTASSIUM 2.5 mmol/L (3.5-5.0)
[2023-01-02] MEDS ORDERED: POTASSIUM CHLOR 10 MEQ/100 ML 10 MEQ/100 ML BAG IV STA (05:08)
[2023-01-02] MEDS ORDERED: POTASSIUM BICARB 25 MEQ TABLET PO STA (08:13)
[2023-01-02] MEDS ORDERED: diphenhydrAMINE INJ 50 MG/ML VIAL IVP STA (09:46)
--- NOTE | 2023-01-02 10:21 | ED Physician Documentation ---
ED Addendum - Addendum Addendum: 01/02/23 10:20 The patient has not had any vomiting for several hours. She did tolerate some water this morning. She states she still has nausea and is having some abdominal cramping. She will be given some more fluids. We can give another dose of Ativan and Inapsine that seemed to help last night. We will aim for discharge with home medications. Disposition: Discharged home in improved condition Diagnoses: 1. Intractable nausea and vomiting 2. Cyclic vomiting episodes 3. Cannabis use
[2023-01-02 13:03] VITALS: BP 124/81
== END 2023-01-02 13:01 | disposition home or self-care (01) ==
LOC: EDUNIT# → ED 03:54
DX: E87.6 Hypokalemia (principal); R11.15 Cyclical vomiting syndrome unrelated to migraine
CPT/HCPCS: 36415; 80053; 83690; 85025; 96361; 96365; 96375; 96376; 99284; 99285; A9270; J1200; J2060; 80048; 83735

== ENCOUNTER 2023-02-20 11:42 | Outpatient (CLI) | payer MEDICAID | END 2023-02-20 23:59 | disposition critical access hospital (66) | LOC: EMS 11:42 | DX: R11.15 Cyclical vomiting syndrome unrelated to migraine (principal); R10.31 Right lower quadrant pain; R10.32 Left lower quadrant pain | CPT/HCPCS: A0425; A0427; A0999 ==

== ENCOUNTER 2023-02-20 12:11 | Observation (INO) | payer MEDICAID ==
--- NOTE | 2023-02-20 12:15 | ED Physician Documentation ---
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 HEENT: None Psych: Depression, Anxiety Musculoskeletal: None Derm: None - Past Surgical History Past Surgical History: Yes General: Cholecystectomy, Appendectomy - Present Medications Home Medications: Ambulatory Orders Medication Instructions Recorded Confirmed amLODIPine [Norvasc] 5 mg PO DAILY #30 tablet 12/14/21 05/30/22 Spironolactone [Aldactone] 25 mg PO DAILY 05/30/22 05/30/22 buPROPion [Wellbutrin Sr] 100 mg PO DAILY 05/30/22 05/30/22 EPINEPHrine [Epinephrine] 0.3 mg IJ ONCE PRN #1 each 09/21/22 Dicyclomine [Bentyl] 10 mg PO QID PRN #15 cap 01/02/23 Ondansetron Odt [Zofran] 4 mg TL Q6H PRN #15 tablet 01/02/23 Promethazine Supp [Phenergan Supp] 25 mg MD Q6H PRN #10 supp 01/02/23 Promethazine [Phenergan] 25 mg PO Q6H PRN #15 tab 01/02/23 - Allergies Allergies/Adverse Reactions: Allergies Allergy/AdvReac Type Severity Reaction Status Date / Time metoclopramide HCl * Allergy Rash Verified 01/02/23 04:19 [From [facility]] - Social History Does the pt smoke?: Yes Smoking Status: Current every day smoker Does the pt drink ETOH?: Yes Does the pt have substance abuse?: Yes - Immunizations Immunizations are current?: Yes - POLST Patient has POLST: No POLST Status: Full Code Results - Vitals Vitals: Oxygen O2 Source Room air
[2023-02-20] MEDS ORDERED: SODIUM CHLORIDE 0.9% 1,000 ML IV STA ×2 (12:17→14:39)
--- NOTE | 2023-02-20 12:18 | ED Physician Documentation ---
PD HPI ABD PAIN - Stated complaint Stated Complaint: VOMITING - History obtained from History obtained from: Patient, EMS - Additional information Additional information: 47-year-old woman with history of cyclic vomiting syndrome versus cannabinoid hyperemesis, although she does not think she has cannabinoid hyperemesis because "I did not smoke for 2 years and I was sicker than that I am now." No possibility of . She had 4 days of vomiting without blood and upper abdominal pain. She does have a history of hypokalemia with prior flares. Prehospital IV attempts were unsuccessful. 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 HEENT: None Psych: Depression, Anxiety Musculoskeletal: None Derm: None - Past Surgical History Past Surgical History: Yes General: Cholecystectomy, Appendectomy - Present Medications Home Medications: Ambulatory Orders Medication Instructions Recorded Confirmed amLODIPine [Norvasc] 5 mg PO DAILY #30 tablet 12/14/21 05/30/22 Spironolactone [Aldactone] 25 mg PO DAILY 05/30/22 05/30/22 buPROPion [Wellbutrin Sr] 100 mg PO DAILY 05/30/22 05/30/22 EPINEPHrine [Epinephrine] 0.3 mg IJ ONCE PRN #1 each 09/21/22 Dicyclomine [Bentyl] 10 mg PO QID PRN #15 cap 01/02/23 Ondansetron Odt [Zofran] 4 mg TL Q6H PRN #15 tablet 01/02/23 Promethazine Supp [Phenergan Supp] 25 mg [place] Q6H PRN #10 supp 01/02/23 Promethazine [Phenergan] 25 mg PO Q6H PRN #15 tab 01/02/23 - Allergies Allergies/Adverse Reactions: Allergies Allergy/AdvReac Type Severity Reaction Status Date / Time metoclopramide HCl * Allergy Rash Verified 01/02/23 04:19 [From Reglan] - Social History Does the pt smoke?: Yes Smoking Status: Current every day smoker Does the pt drink ETOH?: Yes Does the pt have substance abuse?: Yes - Immunizations Immunizations are current?: Yes - POLST Patient has POLST: No POLST Status: Full Code PD ED PE NORMAL - Vitals Vital signs reviewed: Yes - General General: Alert and oriented X 3, Other (Hyperventilating) - Cardiac Cardiac: RRR, No murmur - Respiratory Respiratory: No respiratory distress, Clear bilaterally - Abdomen Abdomen: Normal bowel sounds, Soft, Non tender - Neuro Neuro: Alert and oriented X 3, Normal speech Results - Vitals Vitals: Vital Signs - 24 hr 02/20/23 02/20/23 02/20/23 12:17 12:30 12:32 Temperature 36.9 C Heart Rate 84 Respiratory 28 H 7 L Rate Blood Pressure 114/84 H O2 Saturation 95 45 L 95 If not protocol 2 : Oxygen Flow, liters/minute 02/20/23 02/20/23 02/20/23 12:50 12:51 14:24 Temperature Heart Rate 80 Respiratory 16 Rate Blood Pressure 127/71 O2 Saturation 75 L 90 L 96 If not protocol 2 3 2 : Oxygen Flow, liters/minute Oxygen O2 Source Nasal cannula Oxygen Flow Rate 4 - Labs Labs: Laboratory Tests 02/20/23 02/20/23 12:30 13:48 WBC 7.9 RBC 4.89 Hgb 15.5 Hct 44.5 MCV 91.0 MCH 31.7 H MCHC 34.8 RDW 12.7 Plt Count 267 MPV 10.5 Neut # (Auto) 5.8 Lymph # (Auto) 1.4 L [place] # (Auto) 0.6 Eos # (Auto) 0.0 Baso # (Auto) 0.0 Absolute Nucleated RBC 0.00 Nucleated RBC % 0.0 Sodium 136 Potassium 2.0 L* Chloride 78 L* Carbon Dioxide 37 H Anion Gap 21.0 H BUN 21 H Creatinine 1.7 H Estimated GFR (MDRD) 32 L Glucose 65 L Calcium 10.4 H Magnesium 2.1 Total Bilirubin 2.2 H AST 40 ALT 18 Alkaline Phosphatase 74 Total Protein 9.7 H Albumin 5.0 Globulin 4.7 H Albumin/Globulin Ratio 1.1 Procedures - General procedure General procedure: She was difficult for IV access, multiple nurses tried and failed. I placed a long 22-gauge IV in the right cephalic vein with real-time ultrasound guidance after ChloraPrep the flushed and missael well. PD Medical Decision Making - ED course ED course: 47-year-old woman with cyclic vomiting syndrome versus cannabinoid hyperemesis although she denies that it is cannabinoid related presents with recurrence of syndrome-like vomiting and abdominal pain. She is a benign exam. No white count. CMP notable for profound hypokalemia and hypochloremia with acute kidney injury, her usual creatinine is normal. She was hydrated and given haloperidol, Toradol, and she appeared much better except when aroused she would start to be anxious again. Given the profound hypokalemia will place in observation as it will take some time to fix that level of hypokalemia I believe. Departure - Departure Disposition: ED Place in Observation Clinical Impression: Marijuana abuse, continuous, Intractable nausea and vomiting, Hypokalemia, Acute kidney injury Condition: Serious
[2023-02-20] MEDS ORDERED: HALOPERIDOL 5 MG/ML VIAL IVP STA (12:22)
[2023-02-20] MEDS ORDERED: KETOROLAC 15 MG/ML VIAL IVP STA (12:22)
[2023-02-20 12:38] LABS: BASOPHILS % (AUTO) 0.1 %; HCT - HEMATOCRIT 44.5 % (37.0-47.0); HGB - HEMOGLOBIN 15.5 g/dL (12.0-16.0); LYMPHOCYTES # (AUTO) 1.4 10^3/uL (1.5-3.5); LYMPHOCYTES % (AUTO) 17.4 %; MEAN CORPUSCULAR HEMOGLOBIN 31.7 pg (27.0-31.0); MEAN CORPUSCULAR HGB CONC 34.8 g/dL (32.0-36.0); MEAN PLATELET VOLUME 10.5 fL (7.9-10.8); MONOCYTES # (AUTO) 0.6 10^3/uL (0.0-1.0); NEUTROPHILS # (AUTO) 5.8 10^3/uL (1.5-6.6); NEUTROPHILS % (AUTO) 74.1 %; PLT - PLATELET COUNT 267 10^3/uL (130-450); RED BLOOD COUNT 4.89 10^6/uL (4.20-5.40); RED CELL DISTRIBUTION WIDTH 12.7 % (12.0-15.0); WHITE BLOOD COUNT 7.9 x10^3/uL (4.8-10.8)
[2023-02-20 14:28] LABS: ALBUMIN/GLOBULIN RATIO 1.1 (1.0-2.2); BILIRUBIN,TOTAL 2.2 mg/dL (0.2-1.0); CALCIUM 10.4 mg/dL (8.5-10.3); CREATININE 1.7 mg/dL (0.4-1.0); MAGNESIUM 2.1 mg/dL (1.7-2.8); TOTAL PROTEIN 9.7 g/dL (6.7-8.2)
[2023-02-20] MEDS ORDERED: POTASSIUM CHLOR 10 MEQ/100 ML 10 MEQ/100 ML BAG IV STA ×2 (14:43→14:44)
[2023-02-20] MEDS ORDERED: ACETAMINOPHEN 325 MG TABLET PO PRN (15:58)
[2023-02-20] MEDS ORDERED: ONDANSETRON ODT 4 MG TABLET TL PRN (15:58)
[2023-02-20] MEDS ORDERED: ONDANSETRON 4 MG/2 ML VIAL IVP PRN (15:58)
[2023-02-20] MEDS ORDERED: SODIUM CHLORIDE FLUSH 0.9% 10 ML SYRINGE IVP PRN (15:58)
[2023-02-20] MEDS: SODIUM CHLORIDE FLUSH 0.9% 10 ML SYRINGE IVP SCH ×2 (17:00→23:46)
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
[2023-02-20] MEDS ORDERED: DICYCLOMINE 10 MG CAPSULE PO PRN (19:39)
[2023-02-20] MEDS ORDERED: POTASSIUM CHLORIDE 20 MEQ TABLET PO ONE (20:54)
[2023-02-20] MEDS ORDERED: POTASSIUM CHLOR 10 MEQ/100 ML 10 MEQ/100 ML BAG IV ONE (21:00)
--- NOTE | 2023-02-20 21:33 | PROVIDER PROGRESS NOTE ---
Hospitalist Cross-cover Note - Cross-Cover Note Cross-Cover Note: Was called by DIPIKA Welch stating K of 2.3, have ordered KCL 10 meq X 1o doses, initially also ordered KCL 40 mew po but patient unable to swallow due to being drowsy so will be getting only iv total of 100 meq to repeat KCL once all 10 bags infused.
[2023-02-20] MEDS: POTASSIUM CHLOR 10 MEQ/100 ML 10 MEQ/100 ML BAG IV SCH (22:20)
[2023-02-21] MEDS: oxyCODONE 5 MG TABLET PO PRN ×4 (02:21→17:37)
[2023-02-21] MEDS: POTASSIUM CHLOR 10 MEQ/100 ML 10 MEQ/100 ML BAG IV SCH ×6 (02:49→16:18)
[2023-02-21] MEDS: SODIUM CHLORIDE FLUSH 0.9% 10 ML SYRINGE IVP SCH ×2 (08:15→17:37)
[2023-02-21 08:31] LABS: BASOPHILS % (AUTO) 0.4 %; EOSINOPHILS # (AUTO) 0.1 10^3/uL (0.0-0.7); EOSINOPHILS % (AUTO) 1.1 %; HCT - HEMATOCRIT 41.5 % (37.0-47.0); LYMPHOCYTES # (AUTO) 1.6 10^3/uL (1.5-3.5); LYMPHOCYTES % (AUTO) 28.4 %; MEAN CORPUSCULAR HEMOGLOBIN 32.3 pg (27.0-31.0); MEAN CORPUSCULAR HGB CONC 33.7 g/dL (32.0-36.0); MEAN CORPUSCULAR VOLUME 95.6 fL (81.0-99.0); MEAN PLATELET VOLUME 10.2 fL (7.9-10.8); MONOCYTES # (AUTO) 0.4 10^3/uL (0.0-1.0); MONOCYTES % (AUTO) 7.7 %; NEUTROPHILS # (AUTO) 3.5 10^3/uL (1.5-6.6); NEUTROPHILS % (AUTO) 62.2 %; PLT - PLATELET COUNT 191 10^3/uL (130-450); RED BLOOD COUNT 4.34 10^6/uL (4.20-5.40); RED CELL DISTRIBUTION WIDTH 13.2 % (12.0-15.0); WHITE BLOOD COUNT 5.6 x10^3/uL (4.8-10.8)
[2023-02-21 08:40] LABS: CALCIUM 8.6 mg/dL (8.5-10.3)
[2023-02-21 08:42] LABS: POTASSIUM 2.5 mmol/L (3.5-5.0)
[2023-02-21] MEDS ORDERED: amLODIPine 5 MG TABLET PO SCH (09:00)
[2023-02-21] MEDS ORDERED: buPROPion SR 100 MG TABLET PO SCH (09:00)
--- NOTE | 2023-02-21 11:58 | PHARMACY PROGRESS NOTE ---
- Best Possible Medication History Admit Date and Time: 02/20/23 1558 Processed by: Pharmacy Medication History completed: Yes Patient Interview: Completed As the person ultimately responsible for medication therapy, providers are able to order a medication from an existing home medication list in [facility] via the "Reconcile Routine" prior to Confirmation of that medication by home support worker. Such practice is discouraged except when the physician, in their clinical jennie gment, deems that a medical need exists for a medication without regard to previous use.
[2023-02-21] MEDS ORDERED: POTASSIUM CHLORIDE 20 MEQ TABLET PO ONE ×2 (12:48→18:42)
--- NOTE | 2023-02-21 16:30 | PROVIDER PROGRESS NOTE ---
Subjective - Prog Note Date Prog Note Date: 02/21/23 Prog Note Time: 16:28 - Subjective Subjective: She complains of "lockjaw". Feels like her tongue is not moving the way she wants it to. And that her jaw is very stiff and "locked in place". With her l ast admission she was complaining of a swollen tongue that we were not able to verify on physical exam. She denies any shortness of breath, chest pain. She denies any problems swallowing. Current Medications - Current Medications Current Medications: Active Medications Acetaminophen (Acetaminophen 325 Mg Tablet) 650 mg PO Q4HR PRN PRN Reason: Pain 1 to 4, or Fever Last Admin: 02/21/23 15:20 Dose: 650 mg Amlodipine Besylate (Amlodipine 5 Mg Tablet) 5 mg PO DAILY [facility] Last Admin: 02/21/23 08:09 Dose: 5 mg Bupropion HCl (Bupropion Sr 100 Mg Tablet) 100 mg PO DAILY [facility] Last Admin: 02/21/23 10:31 Dose: Not Given Dicyclomine HCl (Dicyclomine 10 Mg Capsule) 10 mg PO QID PRN PRN Reason: Abdominal Pain Ondansetron HCl (Ondansetron Odt 4 Mg Tablet) 4 mg TL Q6HR PRN PRN Reason: Nausea / Vomiting Ondansetron HCl (Ondansetron 4 Mg/2 Ml Vial) 4 mg IVP Q6HR PRN PRN Reason: Nausea / Vomiting Oxycodone HCl (Oxycodone 5 Mg Tablet) 5 mg PO Q4HR PRN PRN Reason: Pain 5 to 7 Last Admin: 02/21/23 13:01 Dose: 5 mg Sodium Chloride (Sodium Chloride Flush 0.9% 10 Ml Syringe) 10 ml IVP PRN PRN PRN Reason: NEEDED PER PROVIDER ORDERS Sodium Chloride (Sodium Chloride Flush 0.9% 10 Ml Syringe) 10 ml IVP 0100,0900,1700 [facility] Last Admin: 02/21/23 08:15 Dose: 10 ml No Known Home Medications 02/21/23 Objective - Vital Signs/Intake & Output Reviewed Vital Signs: Yes Vital Signs: Vital Signs x48h Temp Pulse Resp BP Pulse Ox 02/21/23 15:35 69 24 135/89 H 95 02/21/23 12:13 36.7 C 68 20 117/73 94 Intake & Output: Intake & Output 02/18/23 02/19/23 02/20/23 02/21/23 23:59 23:59 23:59 23:59 Intake Total 2273 1486.333 Balance 2273 1486.333 - Objective General Appearance: positive: No acute distress, Alert, Other (When nurse notified me of the complaints of "lockjaw" I went in immediately. Patient is speaking normally. Use of lips, tongue to speak and make normal word sounds is intact. Jaw is moving up and down normally. There is no stiffness to the sternocleidomastoids. No neck stiffness) Eyes Bilateral: positive: PERRL, EOMI ENT: positive: No signs of dehydration Neck: positive: No JVD Respiratory: positive: No respiratory distress. negative: Wheezes, Rales, Rh onchi Cardiovascular: positive: Regular rate & rhythm Abdomen: positive: Non-tender, No organomegaly, Nml bowel sounds, No distention Skin: positive: Warm, Dry Extremities: positive: Full ROM, No pedal edema Neurologic/Psychiatric: positive: Oriented x3, CN's nml (2-12), Motor nml - Lab Results Fish Bones: 02/21/23 08:24 02/21/23 08:24 Other Labs: Lab Results x24hrs 02/21/23 02/21/23 02/20/23 Range/Units 08:24 08:24 19:57 WBC 5.6 (4.8-10.8) x10^3/uL RBC 4.34 (4.20-5.40) 10^6/uL Hgb 14.0 (12.0-16.0) g/dL Hct 41.5 (37.0-47.0) % MCV 95.6 (81.0-99.0) fL MCH 32.3 H (27.0-31.0) pg MCHC 33.7 (32.0-36.0) g/dL RDW 13.2 (12.0-15.0) % Plt Count 191 (130-450) 10^3/uL MPV 10.2 (7.9-10.8) fL Neut # (Auto) 3.5 (1.5-6.6) 10^3/uL Lymph # (Auto) 1.6 (1.5-3.5) 10^3/uL [place] # (Auto) 0.4 (0.0-1.0) 10^3/uL Eos # (Auto) 0.1 (0.0-0.7) 10^3/uL Baso # (Auto) 0.0 (0.0-0.1) 10^3/uL Absolute Nucleated RBC 0.00 x10^3/uL Nucleated RBC % 0.0 /100WBC Sodium 137 (135-145) mmol/L Potassium 2.5 L* 2.3 L* (3.5-5.0) mmol/L Chloride 91 L (101-111) mmol/L Carbon Dioxide 33 H (21-32) mmol/L Anion Gap 13.0 (6-13) BUN 18 (6-20) mg/dL Creatinine 1.0 (0.4-1.0) mg/dL Estimated GFR (MDRD) 59 L (>89) Glucose 152 H (70-100) mg/dL Calcium 8.6 (8.5-10.3) mg/dL Assessment/Plan - Problem List (1) Hypokalemia Impression: Conclusion/Plan - Problem List (1) Hypokalemia Conclusion/Plan: Due to nausea and vomiting. This is the reason for observation status. On admission, by the time I had her on MedSur, she was very sleepy. I was able to arouse her with her voice and touching her but she was not able to have a lucid conversation with me. Between last night and today she has not had any nausea or vomiting. She has had 10 potassium riders ordered.However it is slow going because it is burning her arm. She is hungry and would like some food.She feels like she has a locked jaw and spasming of her tongue. On physical exam I am not able to verify that.Hypokalemia is usually associated with paralysis or paresthesias especially in the skeletal muscles. Sometimes cramping. She is not describing that.She does asked to see a specialist that could diagnose her. Plan: Continue IV potassium rider as well as p.o. Recheck potassium at 5 PM. If she is stable enough with her potassium she can be discharged. I explained that we do not have neurology here. When she gets in the outpatient setting, to please speak to her primary care provider and ask for referral to neurology (2) Dehydration Conclusion/Plan: Usual baseline creatinine is 0.8. She has a little bit of kidney insufficiency that I attributed to the prolonged illness over the last for 5 days. Mom says that she just has not been able to keep anything down. Her creatinine on admission was 1.7. Today she is 1.1. This is with IV hydration. Plan: Continue IV fluids while she is here Encourage p.o. intake as well (3) Marijuana abuse, continuous Conclusion/Plan: In the past has been associated with intractable nausea and vomiting. Today, most of her symptoms seem to have abated with treatment in the emergency room. Unclear by documentation how many episodes of emesis she had. Nevertheless, upon transfer to [facility], she appears more comfortable. No emesis documented. But she has electrolyte abnormalities that need to be corrected before she can be sent home. Plan: Zofran ODT 4 mg every 6 hours as needed nausea Haldol 5 mg every 6 hours IM as needed for nausea if Zofran does not work Again encouraged to stop smoking cannabis Clear liquid diet is now advance to regular diet
--- NOTE | 2023-02-21 18:44 | Discharge Plan ---
Discharge Plan Problem Reviewed?: Yes Disposition: Home, Self Care Condition: Fair Prescriptions: Potassium Chloride 20 meq PO DAILY #7 tab Diet: Regular Activity Restrictions: Activity as Tolerated Shower Restrictions: No Driving Restrictions: No Health Concerns: You presented with nausea, vomiting, and abdominal pain. We found you to have another episode of cyclical vomiting but your potassium is very very low as well. Your vomiting responded to 1 dose of Haldol. It took away the nausea and vomiting and you were able to sleep tonight. However your potassium continues to be low this afternoon as we are discharging you. You are 2.7 and normal is 3.5. you feel well. You are tolerating a diet. You feel stable enough to go home. Plan of Treatment: I have given you 40 mEq potassium as you are leaving the hospital. I would like you to take another 40 mEq tomorrow. I have also called in 20 mEq a day for the next 7 days to [facility]. Please have your primary care provider check your potassium blood work in the next week. Assessment: Patient is alert, oriented, and accompanies her. They promised to follow through on getting her potassium prescription at [facility] No Smoking: If you smoke, Please STOP! Call for help.
--- NOTE | 2023-02-21 18:48 | DISCHARGE SUMMARY ---
Discharge Summary Admit Date: 02/20/23 Discharge Date: 02/21/23 Discharging Provider: Swetha Israel MD Primary Care Provider: Sergo Martino MD Code Status: Attempt Resuscitation Condition at Discharge: Fair Discharge Disposition: 01 Home, Self Care - DIAGNOSES Discharge Diagnoses with Status of Each Condition: 1. Hypokalemia 2. Dehydration 3. Marijuana abuse, continuous - HPI History of Present Illness: Patient was brought in by EMS today. She began having cyclical vomiting 4 days ago. Her last known cannabis use was 4 days ago. She received fentanyl 100 mcg IM and Zofran 4 mg IM in the ambulance and it did not seem to make much of a difference. In 2021 she was seen September, 2 ER visits December 11 with the second visit resulting in cannabis hyperemesis treatment and admission, January for an allergic reaction, May 29 with nausea and vomiting and another "allergic reaction of her tongue". In 2022 she was seen in the ER September 21, January 02. For the January 02 visit in the ER she was there for several hours with vomiting. She has been instructed numerous times to stop all use of cannabis. Hyperemesis with cannabis use can last for months even after your last use of cannabis. She is in disagreement with this diagnosis. There is no associated fever, chills, hematemesis, tarry stools. She does not take a nonsteroidal on a regular basis. She does not have any history of alcohol abuse. In the emergency room she received a normal saline bolus, 2 potassium riders, Toradol once, and Haldol once. She has not had relief with this. Her potassium is 2.0, BUN 21, creatinine 1.7. Calcium was 10.4. After discussion with the emergency room provider who states that this may take longer than a regular ED stay to correct her potassium, I have agreed to place her in observation status to replace her potassium. 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 Potassium riders, other riders as necessary. At 1 point she complained of lockjaw. She felt like her tongue was not moving. That her jaw was very stiff and "locked in place". With her last admission she had been complaining of swollen tongue that we were not able to verify on physical exam. She had no stridor, she denies shortness of breath, chest pain. She was able to chew and swallow. She has to see a specialist that could take care of this problem. And I explained that we do not have neurology or ENT at this critical access hospital. She was finally hydrated enough and received enough riders that her potassium had gone from 2.0-2.7. She felt she was capable of continuing potassium supplement at home. As such I gave her orders to take 40 mEq of potassium when she got home tomorrow. And 20 mEq p.o. thereafter. To make sure she followed up with her primary care provider and got blood drawn. Exam at discharge was 36.8. Heart rate 71. Blood pressure 163/91. Respirations 20. 94% on room air. She is a tanned white female of 5 foot 11 inches tall. Her significant other was in the room with her advocating for her and providing comfort throughout her entire stay. Neck was supple. Lungs were clear. Regular rate and rhythm. Abdomen soft nontender. She is ambulating in the room without any assistance. Greater than 30 minutes was spent coordinating discharge This document was made in part using voice recognition software. While efforts are made to proofread this document, sound alike and grammatical errors may occur. - ALLERGIES Allergies/Adverse Reactions: Allergies Allergy/AdvReac Type Severity Reaction Status Date / Time metoclopramide HCl * Allergy Rash Verified 01/02/23 04:19 [From Reglan] - MEDICATIONS Home Medications: Ambulatory Orders Medication Instructions Recorded Confirmed Potassium Chloride 20 meq PO DAILY #7 tab 02/21/23 - LABS Result Diagrams: 02/21/23 08:24 02/21/23 18:00
[2023-02-21 18:52] VITALS: BP 163/91
== END 2023-02-21 19:08 | disposition home or self-care (01) ==
LOC: EDUNIT# → ED 12:11 → MS2 15:58
PROVIDERS: ADMIT Specialist; ATTEND Specialist
DX: E87.6 Hypokalemia (principal); E86.0 Dehydration; N17.9 Acute kidney failure, unspecified; E87.8 Other disorders of electrolyte and fluid balance, not elsewhere classified; F12.10 Cannabis abuse, uncomplicated; I10 Essential (primary) hypertension; F32.A Depression, unspecified; F41.9 Anxiety disorder, unspecified; F17.200 Nicotine dependence, unspecified, uncomplicated; Z80.0 Family history of malignant neoplasm of digestive organs; Z81.1 Family history of alcohol abuse and dependence; Z82.3 Family history of stroke; Z82.49 Family history of ischemic heart disease and other diseases of the circulatory system; Z90.49 Acquired absence of other specified parts of digestive tract
CPT/HCPCS: 36415; 80048; 80053; 83735; 84132; 85025; 96361; 96365; 96366; 96375; 96376; 99284; 99285; A9270; G0378

== ENCOUNTER 2023-03-28 09:54 | Outpatient (CLI) | payer MEDICAID | END 2023-03-28 23:59 | disposition short-term general hospital (02) | LOC: EMS 09:54 | DX: R11.10 Vomiting, unspecified (principal); R19.7 Diarrhea, unspecified; R10.817 Generalized abdominal tenderness | CPT/HCPCS: A0425; A0429; A0999 ==

== ENCOUNTER 2023-04-02 09:59 | Outpatient (CLI) | payer MEDICAID | END 2023-04-02 10:00 | disposition short-term general hospital (02) | LOC: EMS 09:59 | DX: R10.33 Periumbilical pain (principal); R11.2 Nausea with vomiting, unspecified | CPT/HCPCS: A0425; A0429; A0999 ==

== ENCOUNTER 2023-04-24 11:42 | Outpatient (CLI) | payer MEDICAID | END 2023-04-24 23:59 | disposition short-term general hospital (02) | LOC: EMS 11:42 | DX: R11.2 Nausea with vomiting, unspecified (principal); R10.84 Generalized abdominal pain; R10.817 Generalized abdominal tenderness | CPT/HCPCS: A0425; A0427; A0999 ==

== ENCOUNTER 2023-06-20 04:18 | Outpatient (CLI) | payer MEDICAID | END 2023-06-20 04:19 | disposition short-term general hospital (02) | LOC: EMS 04:18 | DX: R10.33 Periumbilical pain (principal); R10.815 Periumbilic abdominal tenderness; R11.10 Vomiting, unspecified | CPT/HCPCS: A0425; A0427; A0999 ==

== ENCOUNTER 2023-07-24 00:11 | Outpatient (CLI) | payer MEDICAID | END 2023-07-24 00:12 | disposition short-term general hospital (02) | LOC: EMS 00:11 | DX: R11.2 Nausea with vomiting, unspecified (principal); R10.32 Left lower quadrant pain | CPT/HCPCS: A0425; A0429; A0999 ==

== ENCOUNTER 2023-08-26 07:15 | Outpatient (CLI) | payer MEDICAID ==
[2023-08-26 12:37] LABS: BASOPHILS % (AUTO) 0.6 %; EOSINOPHILS # (AUTO) 0.2 10^3/uL (0.0-0.7); EOSINOPHILS % (AUTO) 3.8 %; HCT - HEMATOCRIT 39.5 % (37.0-47.0); HGB - HEMOGLOBIN 12.3 g/dL (12.0-16.0); LYMPHOCYTES # (AUTO) 1.3 10^3/uL (1.5-3.5); LYMPHOCYTES % (AUTO) 24.6 %; MEAN CORPUSCULAR HEMOGLOBIN 31.5 pg (27.0-31.0); MEAN CORPUSCULAR HGB CONC 31.1 g/dL (32.0-36.0); MONOCYTES # (AUTO) 0.3 10^3/uL (0.0-1.0); MONOCYTES % (AUTO) 5.5 %; NEUTROPHILS # (AUTO) 3.4 10^3/uL (1.5-6.6); NEUTROPHILS % (AUTO) 65.3 %; PLT - PLATELET COUNT 256 10^3/uL (130-450); RED BLOOD COUNT 3.91 10^6/uL (4.20-5.40); RED CELL DISTRIBUTION WIDTH 12.8 % (12.0-15.0); WHITE BLOOD COUNT 5.2 x10^3/uL (4.8-10.8)
[2023-08-26 13:03] LABS: ALBUMIN 4.6 g/dL (3.2-5.5); CRP - C-REACTIVE PROTEIN < 0.5 mg/dL (<0.5)
[2023-08-26 13:27] LABS: ALBUMIN/GLOBULIN RATIO 1.4 (1.0-2.2); ALKALINE PHOSPHATASE 85 IU/L (42-121); ALT ALANINE AMINOTRANSFERASE 11 IU/L (10-60); AST ASPARTATE AMINOTRANSFERASE 23 IU/L (10-42); BILIRUBIN,TOTAL 0.8 mg/dL (0.2-1.0); BUN - BLOOD UREA NITROGEN 15 mg/dL (6-20); CALCIUM 9.4 mg/dL (8.5-10.3); CARBON DIOXIDE - CO2 25 mmol/L (21-32); CHLORIDE 107 mmol/L (101-111); CREATININE 0.8 mg/dL (0.6-1.3); GFR - MDRD 76 (>89); GLUCOSE 81 mg/dL (74-104); POTASSIUM 4.2 mmol/L (3.5-4.5); SODIUM 140 mmol/L (135-145); TOTAL PROTEIN 7.9 g/dL (6.4-8.9)
== END 2023-08-26 07:30 | disposition home or self-care (01) ==
LOC: LAB.N 07:15
PROVIDERS: ATTEND Nurse Practitioner
DX: R21 Rash and other nonspecific skin eruption (principal)
CPT/HCPCS: 36415; 80053; 85025; 85651; 86140; 87255

== ENCOUNTER 2023-12-23 22:24 | Outpatient (CLI) | payer MEDICAID | END 2023-12-23 22:25 | disposition critical access hospital (66) | LOC: EMS 22:24 | DX: T78.3XXA Angioneurotic edema, initial encounter (principal); R07.9 Chest pain, unspecified; R11.2 Nausea with vomiting, unspecified; R00.0 Tachycardia, unspecified | CPT/HCPCS: A0425; A0427; A0999 ==

== ENCOUNTER 2023-12-23 22:54 | Emergency (ER) | payer MEDICAID ==
[2023-12-23] MEDS ORDERED: EPINEPHrine 1 MG/ML AMP ONE (23:02)
[2023-12-23] MEDS: EPINEPHrine 1 MG/ML AMP IM STA (23:05)
[2023-12-23] MEDS: SODIUM CHLORIDE FOR INHALATION 5 ML NEB INH STA (23:10)
[2023-12-23] MEDS: RACEPINEPHRINE 2.25% NEB INH STA (23:10)
[2023-12-23] MEDS: DEXAMETHASONE 10 MG/ML VIAL IVP STA (23:20)
[2023-12-23] MEDS: LORazepam 2 MG/ML VIAL IVP STA (23:33)
[2023-12-23] MEDS: ONDANSETRON 4 MG/2 ML VIAL IVP STA (23:33)
[2023-12-23] MEDS: HYDROmorphone 0.5 MG/0.5 ML SYRINGE IVP STA (23:35)
[2023-12-23] MEDS: SODIUM CHLORIDE 0.9% 1,000 ML IV STA (23:35)
[2023-12-23 23:50] LABS: BASOPHILS % (AUTO) 0.1 %; HCT - HEMATOCRIT 40.7 % (37.0-47.0); HGB - HEMOGLOBIN 13.7 g/dL (12.0-16.0); LYMPHOCYTES # (AUTO) 1.1 10^3/uL (1.5-3.5); MEAN CORPUSCULAR HEMOGLOBIN 31.6 pg (27.0-31.0); MEAN CORPUSCULAR HGB CONC 33.7 g/dL (32.0-36.0); MEAN PLATELET VOLUME 10.1 fL (7.9-10.8); MONOCYTES # (AUTO) 0.3 10^3/uL (0.0-1.0); MONOCYTES % (AUTO) 4.1 %; NEUTROPHILS # (AUTO) 5.7 10^3/uL (1.5-6.6); NEUTROPHILS % (AUTO) 79.5 %; PLT - PLATELET COUNT 278 10^3/uL (130-450); RED BLOOD COUNT 4.33 10^6/uL (4.20-5.40); RED CELL DISTRIBUTION WIDTH 12.5 % (12.0-15.0); WHITE BLOOD COUNT 7.1 x10^3/uL (4.8-10.8)
[2023-12-23 23:52] LABS: ABG HCO3 32.2 mmol/L (22.0-26.0); ABG OXYGEN SATURATION 100 % (94-98); ABG PCO2 33 mmHg (34-45); ALLEN TEST NEGATIVE
[2023-12-23 23:54] LABS: ABG PO2 155 mmHg (80-100)
[2023-12-23 23:56] LABS: INR 1.1 (0.8-1.2); PT - PROTHROMBIN TIME 11.9 secs (9.9-12.6)
[2023-12-24 00:03] LABS: ALBUMIN 4.8 g/dL (3.2-5.5); ALBUMIN/GLOBULIN RATIO 1.2 (1.0-2.2); BILIRUBIN,TOTAL 0.7 mg/dL (0.2-1.0); CALCIUM 10.5 mg/dL (8.5-10.3); CREATININE 0.8 mg/dL (0.6-1.3); POTASSIUM 3.1 mmol/L (3.5-4.5); TOTAL PROTEIN 8.7 g/dL (6.4-8.9)
[2023-12-24] MEDS ORDERED: iohexoL-300 100 ML VIAL ONE (01:04)
[2023-12-24] MEDS: MAGNESIUM SULFATE 2 GRAM 2 GM/50 ML BAG IV ONE (01:10)
[2023-12-24] MEDS: POTASSIUM CHLOR 10 MEQ/100 ML 10 MEQ/100 ML BAG IV SCH (01:10)
[2023-12-24 01:13] LABS: CORONAVIRUS 229E-RESP PCR NOT DETECTED; CORONAVIRUS HKU1-RESP PCR NOT DETECTED
[2023-12-24 01:14] LABS: B. PARAPERTUSSIS- RESP PCR PAN NOT DETECTED; B. PERTUSSIS- RESP PCR PANEL NOT DETECTED; C. PNEUMONIAE- RESP PCR PANEL NOT DETECTED; CORONAVIRUS NL63-RESP PCR NOT DETECTED; CORONAVIRUS OC43-RESP PCR NOT DETECTED; HUMAN METAPNEUMOVIRUS NOT DETECTED; INFLUENZA A- RESP PCR PANEL NOT DETECTED; INFLUENZA B - RESP PCR PANEL NOT DETECTED; M. PNEUMONIAE- RESP PCR PANEL NOT DETECTED; PARAINFLUENZA VIRUS 1 NOT DETECTED; PARAINFLUENZA VIRUS 2 NOT DETECTED; PARAINFLUENZA VIRUS 3 NOT DETECTED; PARAINFLUENZA VIRUS 4 NOT DETECTED; RHINOVIRUS/ENTEROVIRUS NOT DETECTED; RSV- RESP PCR PANEL NOT DETECTED; SARS-CoV-2 -RESP PCR PANEL NOT DETECTED
--- NOTE | 2023-12-24 01:33 | ED Physician Documentation ---
History of Present Illness - Stated complaint Stated Complaint: FLU LIKE SYMPTOMS - Chief complaint Chief Complaint: Heent - Additonal information Additional information: Patient 48-year-old female presenting to the emergency department with flulike symptoms and tongue swelling. Past medical significant for angioedema, cocaine abuse, PTSD, chronic hypokalemia, cannabinoid hyperemesis syndrome. Reports below symptoms x 1 day. Began experiencing swelling in the throat prior to arrival. Reports similar episodes angioedema in the past. 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: None : None HEENT: None Psych: Depression, Anxiety Musculoskeletal: None Derm: None - Past Surgical History Past Surgical History: Yes General: Cholecystectomy, Appendectomy - Present Medications Home Medications: Ambulatory Orders Medication Instructions Recorded Confirmed Potassium Chloride 20 meq PO DAILY #7 tab 02/21/23 Ondansetron Odt [Zofran] 4 mg TL Q6H PRN #10 tablet 12/24/23 Potassium Chloride [Klor-Con M20] 20 meq PO DAILY #30 tab 12/24/23 - Allergies Allergies/Adverse Reactions: Allergies Allergy/AdvReac Type Severity Reaction Status Date / Time metoclopramide HCl * Allergy Rash Verified 12/23/23 23:05 [From Reglan] - Social History Does the pt smoke?: Yes Smoking Status: Current every day smoker Does the pt drink ETOH?: Yes Does the pt have substance abuse?: Yes - Immunizations Immunizations are current?: Yes - POLST Patient has POLST: No POLST Status: Full Code Results - Vitals Vitals: Vital Signs - 24 hr 12/23/23 12/23/23 12/24/23 23:02 23:10 00:00 Temperature 36.5 C Heart Rate 98 109 H 105 H Respiratory 22 28 H 26 H Rate Blood Pressure 162/107 H 133/95 H O2 Saturation 97 95 If not protocol 1 : Oxygen Flow, liters/minute 12/24/23 12/24/23 12/24/23 00:30 01:00 01:45 Temperature 36.8 C Heart Rate 106 H 108 H 91 Respiratory 22 22 20 Rate Blood Pressure 115/77 114/76 140/99 H O2 Saturation 95 95 96 If not protocol 1 1 : Oxygen Flow, liters/minute 12/24/23 12/24/23 12/24/23 02:00 02:30 03:00 Temperature Heart Rate 89 88 90 Respiratory 20 20 18 Rate Blood Pressure 130/83 H 135/86 H 182/106 H O2 Saturation 96 96 96 If not protocol : Oxygen Flow, liters/minute 12/24/23 12/24/23 12/24/23 03:30 04:00 04:30 Temperature Heart Rate 91 97 87 Respiratory 18 18 18 Rate Blood Pressure 180/108 H 165/102 H 173/113 H O2 Saturation 96 96 96 If not protocol : Oxygen Flow, liters/minute Oxygen O2 Source Room air - EKG (time done) 2350 EKG releavant findings:: EKG personally interpreted by author of this note. Relevant findings are: Sinus rhythm with rate 107 bpm. Normal axis. Normal OK, QRS intervals. QTc prolonged at [address] segment elevations. Nonspecific ST-T wave abnormalities. - Labs Labs: Laboratory Tests 12/23/23 12/23/23 12/23/23 23:20 23:37 23:37 WBC 7.1 RBC 4.33 Hgb 13.7 Hct 40.7 MCV 94.0 MCH 31.6 H MCHC 33.7 RDW 12.5 Plt Count 278 MPV 10.1 Neut # (Auto) 5.7 Lymph # (Auto) 1.1 L Storey # (Auto) 0.3 Eos # (Auto) 0.0 Baso # (Auto) 0.0 Absolute Nucleated RBC 0.00 Nucleated RBC % 0.0 PT 11.9 INR 1.1 Bld Gas Analysis Time 2343 Sample Site RIGHT BRACHIAL ABG pH 7.60 H* ABG pCO2 33 L ABG pO2 155 H* ABG HCO3 32.2 H ABG Total CO2 33.0 H ABG O2 Saturation 100 H ABG Base Excess 11.0 H Adam Test NEGATIVE Room Air YES FiO2 21.00 Sodium Potassium Chloride Carbon Dioxide Anion Gap BUN Creatinine Estimated GFR (MDRD) Glucose Calcium Total Bilirubin AST ALT Alkaline Phosphatase Total Protein Albumin Globulin Albumin/Globulin Ratio Lipase Nasal Adenovirus (PCR) Nasal B. parapertussis DNA (PCR) Nasal Coronavir 229E PCR Nasal Coronavir HKU1 PCR Nasal Coronavir NL63 PCR Nasal Coronavir OC43 PCR Nasal Enterovir/Rhinovir PCR Nasal Influenza B PCR Nasal Influenza A PCR Nasal Parainfluen 1 PCR Nasal Parainfluen 2 PCR Nasal Parainfluen 3 PCR Nasal Parainfluen 4 PCR Nasal RSV (PCR) Nasal B.pertussis DNA PCR Nasal C.pneumoniae (PCR) Feliz Human Metapneumo PCR Nasal M.pneumoniae (PCR) Nasal SARS-CoV-2 (PCR) Blood Type Antibody Screen 12/23/23 12/23/23 12/24/23 23:37 23:37 00:05 WBC RBC Hgb Hct MCV MCH MCHC RDW Plt Count MPV Neut # (Auto) Lymph # (Auto) Storey # (Auto) Eos # (Auto) Baso # (Auto) Absolute Nucleated RBC Nucleated RBC % PT INR Bld Gas Analysis Time Sample Site ABG pH ABG pCO2 ABG pO2 ABG HCO3 ABG Total CO2 ABG O2 Saturation ABG Base Excess Adam Test Room Air FiO2 Sodium 137 Potassium 3.1 L Chloride 95 L Carbon Dioxide 28 Anion Gap 14.0 H BUN 13 Creatinine 0.8 Estimated GFR (MDRD) 76 L Glucose 186 H Calcium 10.5 H Total Bilirubin 0.7 AST 13 ALT 15 Alkaline Phosphatase 95 Total Protein 8.7 Albumin 4.8 Globulin 3.9 Albumin/Globulin Ratio 1.2 Lipase 24 Nasal Adenovirus (PCR) NOT DETECTED Nasal B. parapertussis DNA (PCR) NOT DETECTED Nasal Coronavir 229E PCR NOT DETECTED Nasal Coronavir HKU1 PCR NOT DETECTED Nasal Coronavir NL63 PCR NOT DETECTED Nasal Coronavir OC43 PCR NOT DETECTED Nasal Enterovir/Rhinovir PCR NOT DETECTED Nasal Influenza B PCR NOT DETECTED Nasal Influenza A PCR NOT DETECTED Nasal Parainfluen 1 PCR NOT DETECTED Nasal Parainfluen 2 PCR NOT DETECTED Nasal Parainfluen 3 PCR NOT DETECTED Nasal Parainfluen 4 PCR NOT DETECTED Nasal RSV (PCR) NOT DETECTED Nasal B.pertussis DNA PCR NOT DETECTED Nasal C.pneumoniae (PCR) NOT DETECTED Feliz Human Metapneumo PCR NOT DETECTED Nasal M.pneumoniae (PCR) NOT DETECTED Nasal SARS-CoV-2 (PCR) NOT DETECTED Blood Type O POSITIVE Antibody Screen NEGATIVE PD Medical Decision Making - ED course Complexity details: reviewed old records, reviewed results, re-evaluated patient, considered differential, d/w patient ED course: Patient is a 48-year-old female presenting to the emergency department with chief complaint of flulike symptoms, the sensation of swelling in the neck, as well as abdominal pain. She has a past medical significant for angioedema, cyclical vomiting, cannabinoid hyperemesis, polysubstance abuse. Arrives to the emergency department somewhat in extremis, gagging, retching, reporting a sensation of swelling in the back of her throat. On physical exam I did not appreciate any indications of angioedema. There was nothing to suggest deep space neck infection however given her reported symptoms as well as work as well as her reported history of angioedema I did order initially for epinephrine followed by dose Decadron and racemic epinephrine. This was followed by dose of lorazepam as well as 0.5 mg hydromorphone as she was complaining of worsening abdominal pain. With the administration of these medications she calmed quite precipitously. There is no further indication of severe allergic reaction and she no longer complained of any sensations of swelling in the posterior oropharynx. Labs were obtained which demonstrated a moderate hypokalemia. She was given magnesium and potassium repletion. Her EKG did have some nonspecific changes as well as a mild prolongation of QT interval however while monitoring her on telemetry her RR interval improved appropriately and there was no longer any indications of persistent QT prolongation on telemetry after the administration of magnesium and potassium. She did have a very minimal elevation of hypercalcemia. This is of uncertain clinical significance and will benefit from reevaluation by primary care. I did obtain imaging of the soft tissue of her neck which was benign. The CT of her abdomen pelvis was similarly benign although I did have findings of chronic splenic vein thrombosis as well as some indications of pelvic congestion syndrome, which could be contributing to the patient's symptoms. Overall she was monitored in the emergency department for well over 7 hours with no new or worsening symptoms. Patient was overall found to be resting comfortably and in no acute distress on multiple reevaluations. However short to the time of discharge she began to experience some increased nausea and nursing staff noted that she was hypertensive. She reports that she takes metoprolol for her blood pressure and has not taken it for several days. Was given a dose of metoprolol IV here in the emergency department. No indications of hypertensive emergency or endorgan injury on any of her labs today. Additionally she continued to endorse for some mild nausea but had no further vomiting. She was noted to stick out her tongue in an abnormal fashion when reporting her nausea however there was no soft tissue swelling noted on exam, she was easily able to retract her tongue, had no difficulties phonating or creating speech and no indications of upper airway obstruction. When questioned about this behavior she reported "I do not know, it is just like that". At this time I will discharge with prescription for potassium supplement to take at home and encouraged her to follow-up with her primary care doctor or return to the emergency department as needed. Departure - Departure Disposition: 01 Home, Self Care Clinical Impression: Shortness of breath, Throat swelling, Pelvic congestion syndrome Prescriptions: Potassium Chloride [Klor-Con M20] 20 meq PO DAILY #30 tab Ondansetron Odt [Zofran] 4 mg TL Q6H PRN #10 tablet PRN Reason: Nausea / Vomiting Comments: Thank you for allowing us to care for you today at [facility]. Today in the emergency department you were evaluated for any possible dangerous or life-threatening medical emergency. At the time of arrival you are expressing some symptoms that were concerning for angioedema or severe allergic reaction. You were given epinephrine and a dose of steroid. You are also given medication for pain and nausea. You appear to respond well to treatment here. The CT scans of your neck as well as your abdomen and pelvis had some chronic changes however nothing that was acute, surgical or life-threatening in nature. Incidental findings included some increased vascular congestion around your pelvis, known as pelvic congestion syndrome which can cause some chronic low- level lower abdominal pain. Additionally you had some thrombosis or a blood clot in your splenic vein. This was unchanged from previous imaging. Your labs did demonstrate a very mild elevated calcium as well as a low potassium. You were given potassium repletion here. You will need to follow-up with your primary care doctor concerning these findings. As we discussed I do recommend abstinence from marijuana, cannabinoid and tetrahydrocannabinol containing products. This can exacerbate cyclical vomiting and generally speakingIf you find yourself in a place where you need to use drugs of any kind on a daily basis it is important to examine whether or not there are healthier alternatives or ways of coping with stress they do not have the potential for dependency. . I will be discharging with a prescription of a potassium supplement to take at home. Please use this as directed. Please follow-up with your primary care doctor soon as possible concerning your ER evaluation. I have also sent a prescription for some Zofran for use as needed. It is very important that you take your blood pressure medication regularly and follow-up with your primary care doctor to have your blood pressure rechecked If it anytime you have new or worsening symptoms please not hesitate to return. Forms: PCP List
[2023-12-24] MEDS: iohexoL-300 100 ML VIAL IVP ONE (01:48)
[2023-12-24 01:53] VITALS: O2SAT 96
--- NOTE | 2023-12-24 01:58 | CT Report ---
PROCEDURE: Soft Tissue Neck W INDICATIONS: neck swelling, abd pain CONTRAST: omni 300, 100mls TECHNIQUE: After the administration of intravenous contrast, 3.0 mm axial sections acquired from the sella to th e aortic arch. Additional oblique axial 3.0 mm sections acquired through the pharynx. 3 mm thick co juanita reformats were generated. For radiation dose reduction, the following was used: automated exp osure control, adjustment of mA and/or kV according to patient size. COMPARISON: None FINDINGS: Image quality: Diagnostic Brain: Partially visualized, unremarkable. Orbits: No masses or abscess. Mouth and pharynx: Prominent enhancing tonsillar tissue without rim-enhancing fluid collection. Airway: Patent. Neck spaces: No masses or abscess. No lymphadenopathy. Glands: Unremarkable. No actionable thyroid nodules. Vessels: Patent. No occlusion. Upper chest: No apical pneumothorax. There are emphysematous changes Sinuses and mastoids: No significant opacification. Bones: There are degenerative changes IMPRESSION: No rim-enhancing drainable abscess is identified. Prominent bilateral enhancing tonsillar tissue, pos sibly infectious/inflammatory. Consider correlation with direct visualization if needed. No other acute abnormality identified in the neck. Reviewed by: Yovanny Berry MD on 12/24/2023 1:57 AM PDT Approved by: Yovanny Berry MD on 12/24/2023 1:57 AM PDT Station ID: [id number]
--- NOTE | 2023-12-24 02:05 | CT Report ---
PROCEDURE: Abdomen/Pelvis W INDICATIONS: Neck swelling, abd pain CONTRAST: omni 300, 100mls TECHNIQUE: After the administration of intravenous contrast, a CT scan of the abdomen and pelvis was performed. Images were recorded and evaluated at appropriate window settings. Reformats: coronal and sagittal. F or radiation dose reduction, the following was used: automated exposure control, adjustment of mA and /or kV according to patient size. COMPARISON: 12/13/2021 FINDINGS: Image quality: Diagnostic Lower chest: Bibasilar atelectasis. Wall thickening again seen at the distal esophagus and a possible epiphrenic diverticulum. Normal heart size. Liver: Enlarged liver at 21 cm. Gallbladder and biliary system: Absent, dilated biliary tree and the postsurgical state is again seen Pancreas: No ductal dilation. Spleen: Nonenlarged Adrenals: No discrete nodules Kidneys: Subcentimeter lesions are too small to characterize, usually cysts. No hydronephrosis Vessels and lymph nodes: No abdominal aortic aneurysm. The main portal vein is patent. Partially thro mbosed splenic artery aneurysm measures 2.1 cm, seen previously. No pathologic lymph nodes by size cr iteria. Bowel and peritoneum: Possible mild wall thickening of the proximal stomach. No small bowel obstructi on. No drainable abscess or pathologic ascites. Few colonic diverticula are seen. Body wall: Unremarkable Pelvis: Bladder is unremarkable. IUD is seen. Reproductive organs are not well evaluated on CT. Promi nent adnexal veins are present bilaterally Bones: No acute or suspicious osseous finding. There are degenerative changes. IMPRESSION: Wall thickening of the distal esophagus and proximal stomach, nonspecific, possibly gastritis and eso phagitis. Consider endoscopy correlation if necessary. No small bowel obstruction. 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 Prominent adnexal veins are present, sometimes seen with pelvic congestion syndrome. Other findings above. Reviewed by: Yovanny Berry MD on 12/24/2023 2:04 AM PDT Approved by: Yovanny Berry MD on 12/24/2023 2:04 AM PDT Station ID: [id number]
[2023-12-24] MEDS: ONDANSETRON 4 MG/2 ML VIAL IVP STA (06:05)
[2023-12-24] MEDS: METOPROLOL 5 MG/5 ML VIAL IVP SCH (06:17)
[2023-12-24 06:26] VITALS: BP 149/107
[2023-12-24] MEDS ORDERED: hydrALAZINE 10 MG TABLET PO SCH (09:00)
== END 2023-12-24 06:35 | disposition home or self-care (01) ==
LOC: EDUNIT# → ED 22:54
DX: R22.9 Localized swelling, mass and lump, unspecified (principal); R06.02 Shortness of breath; N94.89 Other specified conditions associated with female genital organs and menstrual cycle; I10 Essential (primary) hypertension; F17.200 Nicotine dependence, unspecified, uncomplicated
CPT/HCPCS: 36415; 36600; 70491; 74177; 80053; 82803; 83690; 85025; 85610; 86850; 86900; 86901; 87633; 93005; 94640; 94664; 96361; 96365; 96366; 96368; 96372; 96375; 99284; 99285; J1170; J2060; Q9967